=== PATIENT | male | born 1965 | race Caucasian/White ===

== ENCOUNTER 2024-03-08 15:21 | Outpatient (OUT) | payer BC, OTHER, SELFPAY ==
[2024-03-08 16:13] LABS: Estimated Average Glucose 97 mg/dL
[2024-03-10 09:11] LABS: HIV Ab/p24 Ag Screen Non Reactive (Non Reactive)
[2024-03-10 12:10] LABS: Rapid Plasma Reagin, Quant Non Reactive titer (NonRea<1:1)
[2024-03-10 14:09] LABS: Immunoglobulin A, Qn, Serum 207 mg/dL (90-386); Immunoglobulin G, Qn, Serum 830 mg/dL (603-1613); Immunoglobulin M, Qn, Serum 86 mg/dL (20-172); Lyme Total Antibody CIA Negative (Negative)
[2024-03-10 15:09] LABS: ANA Direct Negative (Negative); Albumin 3.8 g/dL (2.9-4.4); Alpha-1-Globulin 0.3 g/dL (0.0-0.4); Alpha-2-Globulin 0.9 g/dL (0.4-1.0); Gamma Globulin 0.8 g/dL (0.4-1.8); Protein, Total 6.7 g/dL (6.0-8.5)
[2024-03-11 04:08] LABS: Copper Level 83 ug/dL (69-132)
== END 2024-03-08 15:22 | disposition home or self-care (01) ==
LOC: LAB 15:31
PROVIDERS: PCP Internal Medicine; Visit Provider Nurse Practitioner Family
DX: G62.9 Polyneuropathy, unspecified (principal)
CPT/HCPCS: 36415; 82525; 83036; 84155; 84165; 84207; 86038; 86592; 86618; 87389

== ENCOUNTER 2024-05-16 13:18 | Outpatient (OUT) | payer BC, OTHER, SELFPAY ==
--- OUTSIDE RECORDS SUMMARY | 2024-05-16 13:42 | XMS_ITS | CCD ---
Author Organization [facility] Care Team Providers Care Vegetable Picker Name Role Phone Cris Cruz Attending Unavailable ROXANE MITCHELL Admitting Unavailable ROXANE MITCHELL Attending Unavailable REQUEST, NONE LISTED Primary Care Unavailable VINCENT RAE Admitting Unavailable VINCENT RAE Attending Unavailable VINCENT RAE Consulting Unavailable CRIS SINGH Referring Unavailable CRIS SINGH Primary Care Unavailable CRIS SINGH Attending Unavailable CRIS SINGH Referring Unavailable CRIS SINGH Primary Care Unavailable CRIS SINGH Attending Unavailable CRIS SINGH Referring Unavailable CRIS SINGH Primary Care Unavailable NON STAFF Primary Care Provider UnavailDO Deanna Payne Attending Provider [phone] NON STAFF Primary Care Unavailable Deanna Mejia Attending Unavailab Deanna Espinal Admitting Unavailab CRIS Perez Attending Unavailable FERNIE HOLMAN Referring UnavailCRIS Bowles Primary Care Unavailable CRIS SINGH Attending Unavailable CRIS SINGH Referring Unavailable CRIS SINGH Primary Care Unavailable CRIS SINGH Attending Unavailable CRIS SINGH Referring Unavailable CRIS SINGH Primary Care Unavailable DEANNA MEJIA Attending Unavailable CRIS SINGH Referring Unavailable DEANNA MEJIA Referring Unavailable DEANNA MEJIA Attending Unavailable ROB MONTES DE OCA Attending Unavailable DEANNA MEJIA Attending Unavailable ROB MONTES DE OCA Attending Unavailable Cris Singh MD Primary Care Provider [phone] Cris Singh DO Primary Care Provider Medications Current Medications Medication Drug Class(es) Dates Sig (Normalized) Sig (Original) acetaminophen 500 mg oral tablet (2 sources) Start: 12-29-2023 take 1 tablet by mouth every six hours as needed acetaminophen (Tylenol) 500 MG tablet Take 500 mg by mouth every 6 (six) hours if needed 12/29/2023 Active amLODIPine 2.5 mg oral tablet (2 sources) Dihydropyridine Calcium Channel Fritz Start: 02-23-2024 take 1 tablet by mouth in the evening amLODIPine (Norvasc) 2.5 MG tablet Take 1 tablet by mouth in the evening 02/23/2024 Active atorvastatin 40 mg oral tablet (5 sources) HMG-CoA Reductase Inhibitor Start: 12-29-2023 take 0.5 tablet by mouth in the morning atorvastatin (LIPITOR) 40 mg tablet Indications: hyperlipidemia Take 0.5 tablets (20 mg total) by mouth in the morning. Indications: excessive fat in the blood. 12/29/2023 Active Start: 08-20-2020 take 40 mg by mouth once daily Atorvastatin Active 40 MG PO Daily August 20, 2020 1:00am ferrous sulfate (2 sources) take 1 tablet by mouth in the morning Ferrous Sulfate (IRON PO) Take 1 tablet by mouth in the morning. Active gabapentin 300 mg oral capsule (4 sources) Anti-epileptic Agent Start: 4 gabapentin (NEURONTIN) 300 mg capsule Take 1 capsule (300 mg total) by mouth. 03/24/2024 Active latanoprost 0.05 mg/ml ophthalmic solution (4 sources) Prostaglandin Analog Start: take 1 drop(s) into the eye(s) once daily latanoprost (XALATAN) 0.005 % ophthalmic solution Indications: Glaucoma of both eyes, unspecified glaucoma type Administer 1 drop to both eyes nightly. 03/08/2024 Active Start: 02-17-2024 latanoprost (X alatan) 0.005 % ophthalmic solution INSTILL ONE DROP IN EACH EYE BEFORE BED 02/17/2024 Active lisinopril 10 mg oral tablet (3 sources) Angiotensin Converting Enzyme Inhibitor Start: 02-23-2024 take 1 tablet by mouth in the morning lisinopril 10 MG tablet Take 10 mg by mouth in the morning. 02/23/2024 Active Start: 08-22-2020 take 10 mg by mouth once daily Lisinopril Active 10 MG PO Daily 30 August 22, 2020 1:00am meloxicam 15 mg oral tablet (5 sources) Nonsteroidal Anti-inflammatory Drug Start: 05-11-2024 take 1 tablet by mouth in the morning meloxicam (MOBIC) 15 mg tablet Indications: Localized osteoarthritis of lumbar spine TAKE 1 TABLET (15 MG TOTAL) BY MOUTH IN THE MORNING 30 tablet 1 05/11/2024 Active Start: 12-29-2023 End: 05-11-2024 take 1 tablet by mouth in the morning meloxicam (MOBIC) 15 mg tablet Indications: Localized osteoarthritis of lumbar spine TAKE 1 TABLET (15 MG TOTAL) BY MOUTH IN THE MORNING 30 tablet 1 03/21/2024 05/11/2024 Discontinued wmpmgoue-mugb-HC-calcium &mins (THERAGRAN-M) 9 mg iron-400 mcg tablet (2 sources) pqsyxatz-nahs-LD -calcium &mins (THERAGRAN-M) 9 mg iron-400 mcg tablet Take 1 tablet by mouth in the morning. Active tamsulosin hydrochloride 0.4 mg oral capsule (2 sources) alpha-Adrene rgic Fritz take 1 capsule by mouth once daily tamsulosin (Flomax) 0.4 MG 24 hr capsule Take 0.4 mg by mouth Daily Active thiamine 100 mg oral tablet (1 source) Start : 08-22 take 100 mg by mouth twice daily Thiamine Hcl (Vitamin B1) Active 100 MG PO Twice daily 60 August 22, 2020 1:00am topiramate 50 mg oral tablet (2 sources) Start : 04-29 take 1 tablet by mouth in the morning, then take 1 tablet by mouth at bedtime topiramate (TOPAMAX) 50 mg tablet Indications: Intractable chronic post-traumatic headache Take 1 tablet (50 mg total) by mouth in the morning and 1 tablet (50 mg total) before bedtime. 60 tablet 2 04/29/2024 Active traMADol hydrochloride 50 mg oral tablet (2 sources) Opioid Agonist Start : 05-11 End: 05-26 take 1 tablet by mouth twice daily as needed for pain traMADoL (ULTRAM) 50 mg tablet Indications: Localized osteoarthritis of lumbar spine Take 1 tablet (50 mg total) by mouth 2 (two) times a day as needed for pain (pain) for up to 15 days. 30 tablet 05/11/2024 05/26/2024 Active Start: 04-28-2024 End: 05-11-2024 take 1 tablet by mouth every six hours as needed ULTRAM 50 mg tablet Take 1 tablet (50 mg total) by mouth every 6 (six) hours as needed. 04/28/2024 05/11/2024 Discontinued (Dose adjustment) vitamin b12 1 mg oral tablet (4 sources) Vitamin B12 Start: 12-08-2023 take 1 tablet by mouth in the morning cyanocobalamin 1000 MCG tablet Indications: B12 deficiency TAKE 1 TABLET (1,000 MCG TOTAL) BY MOUTH IN THE MORNING 90 tablet 1 03/24/2024 Active Problems Active Problems Problem Classification Problem Date Documented Date Episodic/Chronic Abdominal pain (1 source) Abdominal pain; Translations: [Unspecified abdominal pain] 07-15-2023 Episodic Asthma (1 source) Unspecified asthma, uncomplicated; Translations: [UNSPECIFIED ASTHMA UNCOMPLICATED] Onset: 12-09-2018 Chronic Cataract (1 source) Unspecified cataract; Translations: [Unspecified cataract] Onset: 12-29-2023 Chronic Conditions associated with dizziness or vertigo (1 source) Meniere's disease, bilateral; Translations: [Meniere's disease, bilateral] Onset: 12-29-2023 Chronic Disorders of lipid metabolism (5 sources) Hyperlipidemia, unspecified; Translations: [Hyperlipidemia] Onset: 08-21-2022 07-15-2023 Chronic Diverticulosis and diverticulitis (6 sources) Diverticulitis of colon with perforation; Translations: [Diverticulitis of large intestine with perforation and abscess without bleeding] Onset: 04-23-2020 03-08-2024 Chronic Essential hypertension (2 sources) Essential hypertension; Translations: [Essential (primary) hypertension] Onset: 08-21-2022 03-08-2024 Chronic Glaucoma (1 source) Unspecified glaucoma; Translations: [Unspecified glaucoma] Onset: 03-08-2024 Chronic Hepatitis (1 source) Nonalcoholic steatohepatitis (VIEIRA); Translations: [Nonalcoholic steatohepatitis (VIEIRA)] Onset: 12-22-2023 Chronic Intracranial injury (7 sources) Unspecified intracranial injury 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 with patient surviving, initial encounter; Translations: [Traumatic hemorrhage of left cerebrum with loss of consciousness of 30 minutes or less, subsequent encounter] Onset: 12-22-2023 03-08-2024 Episodic Mood disorders (3 sources) Depressive disorder; Translations: [Depression] Onset: 04-29-2024 07-15-2023 Chronic Other connective tissue disease (2 sources) Other symptoms and signs involving the musculoskeletal system; Translations: [Other musculoskeletal symptoms referable to limbs] Onset: 02-18-2024 05-10-2024 Episodic Other nervous system disorders (1 source) Carpal tunnel syndrome of right wrist; Translations: [Carpal tunnel syndrome, right upper limb] 05-10-2024 Chronic Residual codes; unclassified (1 source) Alcoholism; Translations: [Alcohol use disorder] 07-15-2023 Episodic Spondylosis; intervertebral disc disorders; other back problems (3 sources) Spondylosis without myelopathy or radiculopathy, lumbar region; Translations: [Lumbar spondylosis] Onset: 12-29-2023 05-11-2024 Chronic Spondylosis; intervertebral disc disorders; other back problems (2 sources) Radiculopathy, lumbar region; Translations: [Cervical radiculopathy] Onset: 12-07-2023 05-10-2024 Episodic Substance-related disorders (3 sources) Nicotine dependence, cigarettes, uncomplicated; Translations: [Smoker] Onset: 12-09-2018 03-08-2024 Chronic Suicide and intentional self-inflicted injury (1 source) Suicidal thoughts; Translations: [Suicidal ideations] 07-15-2023 Episodic Unclassified (1 source) discuss test results Onset: 12-29-2023 Unclassified (1 source) New Patient Onset: 12-07-2023 Past or Other Problems Problem Classification Problem Date Documented Date Episodic/Chronic Acute bronchitis (1 source) Acute bronchitis, unspecified; Translations: [ACUTE BRONCHITIS UNSPECIFIED] Onset: 9 Episodic Acute posthemorrhagic anemia (4 sources) Acute posthemorrhagic anemia; Translations: [Acute posthemorrhagic anemia] Onset: 2 03-08-2024 Episodic Cardiac dysrhythmias (2 sources) Tachycardia, unspecified; Translations: [Tachycardia, unspecified] Onset: 4 Episodic Coagulation and hemorrhagic disorders (2 sources) Purpuric rash; 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] Onset: 3 03-08-2024 Episodic Diabetes mellitus without complication (2 sources) Hyperglycemia; Translations: [Hyperglycemia, unspecified] Onset: 3 03-08-2024 Episodic E Codes: Fall (2 sources) Fall; Translations: [Unspecified fall, initial encounter] Onset: 2 03-08-2024 Episodic Fluid and electrolyte disorders (2 sources) Hypokalemia; Translations: [Hypokalemia] Onset: 3 03-08-2024 Episodic Genitourinary symptoms and ill-defined conditions (4 sources) Retention of urine; Translations: [Retention of urine, unspecified] Onset: 2 03-08-2024 Episodic Mood disorders (2 sources) Mood disorders Onset: 4 04-28-2024 Nutritional deficiencies (2 sources) Deficiency of other specified B group vitamins; Translations: [Deficiency of other specified B group vitamins] Onset: 4 Episodic Other circulatory disease (2 sources) Orthostatic hypotension; Translations: [Orthostatic hypotension] Onset: 4 Episodic Other fractures (4 sources) Closed fracture of multiple left ribs; Translations: [Multiple fractures of ribs, left side, initial encounter for closed fracture] Onset: 2 03-08-2024 Episodic Other gastrointestinal disorders (4 sources) Oropharyngeal dysphagia; Translations: [Dysphagia, oropharyngeal phase] Onset: 2 03-08-2024 Episodic Other lower respiratory disease (3 sources) Cough; Translations: [COUGH] Onset: 9 Episodic Other nutritional; endocrine; and metabolic disorders (2 sources) Overweight; Translations: [Overweight] Onset: 3 03-08-2024 Episodic Other upper respiratory infections (1 source) Acute upper respiratory infection, unspecified; Translations: [ACUTE UP RESPIRATORY INFECTION UNS] Onset: 9 Episodic Residual codes; unclassified (4 sources) History of closure of colostomy; Translations: [Other specified postprocedural states] Onset: 1 03-08-2024 Episodic Results Test Name Value Interpretation Reference Range Facility EMG 1 Extremeityon 4 Very mild C8 radiculopathy on the right Mild carpal tunnel syndrome on the right No clear explanation for right shoulder pain [facility] 5-6 Nerveson 05-10-2024 Very mild C8 radiculopathy on the right Mild carpal tunnel syndrome on the right No clear explanation for right shoulder pain [facility] 03-24-2024 Refill [id number] Bee Harris 1965 M Date Provider Department Center 03/24/2024 [id number] GUZMAN [facility] INT MED Comprehensiv Family History Problem Relation Age of Onset Diabetes Mother Lung cancer Mother Kidney failure Mother Heart disease Father Other Father Family Status - Relation Status Age at Mother Father Reason for Visit and Comments: Med Refill [[id number]] [facility] 36on 02-23-2024 36 Refill request for Requested Prescriptions Pending Prescriptions Disp Refills amLODIPine (Norvasc) 2.5 mg tablet [Pharmacy Med Name: AMLODIPINE BESYLATE 2.5 MG TAB] 90 tablet 2 Sig: TAKE 1 TABLET BY MOUTH EVERY DAY IN THE EVENING lisinopril 10 mg tablet [Pharmacy Med Name: LISINOPRIL 10 MG TABLET] 90 tablet 2 Sig: TAKE 1 TABLET BY MOUTH EVERY DAY IN THE MORNING Recent Visits No visits were found meeting these conditions. Showing recent visits within past 540 days with a meds authorizing provider and meeting all other requirements Future Appointments No visits were found meeting these conditions. Showing future appointments within next 150 days with a meds authorizing provider and meeting all other requirements BP Readings from Last 3 Encounters: 11/27/22 127/80 08/21/22 116/72 Health Maintenance Topic Date Due Hepatitis B Vaccines (1 of 3 - 3-dose series) Never done Pneumococcal Vaccine: Pediatrics (0 to 5 Years) and At-Risk Patients (6 to 64 Years) (1 of 2 - PCV) Never done Depression Screening Never done Adult Tetanus Never done Zoster Vaccines (1 of 2) Never done COVID-19 Vaccine ( - 2022- season) 2023 Influenza Vaccine (1) 04/03/2024 HIB Vaccines Aged Out IPV Vaccines Aged Out Meningococcal Vaccine Aged Out Rotavirus Vaccines Aged Out HPV Vaccines Aged Out No components found for: LABA1C No components found for: LABMICR LDL Calculated (mg/dL) Date Value 07/16/2022 49 AST (U/L) Date Value 07/16/2022 12 (L) ALT (SGPT) (U/L) Date Value 07/16/2022 11 BUN (mg/dL) Date Value 07/16/2022 18 Patient Active Problem List Diagnosis Acute blood loss anemia Current smoker Diverticulitis of colon with perforation Well adult health check Essential hypertension Fall History of colostomy reversal Hyperglycemia Hyperlipidemia Hypokalemia Multiple fractures of ribs, left side, initial encounter for closed fracture Oropharyngeal dysphagia Overweight Perforated diverticulum Purpura (CMS/HCC) Urinary retention Normal [facility]illon 02-22-2024 Refill [id number] Bee Harris 1965 M Date Provider Department Center 02/22/2024 [id number] GUZMAN [facility] INT MED Comprehensiv Family History Problem Relation Age of Onset Diabetes Mother Lung cancer Mother Kidney failure Mother Heart disease Father Other Father Family Status - Relation Status Age at Mother Father Reason for Visit and Comments: Med Refill [[id number]] Normal [facility] XR pre/post mri xrayon 02-17 XR pre/post mri xray [facility] [address] MRI Report Signed Patient: Bee Harris MR#: [id number] : 1965 Acct:[id number] Age/Sex: 58 / M ADM Date: 02/18/24 Loc: [facility] Room: Type[facility] Attending Dr: Deanna Mejia DO Copies to: Deanna Mejia DO Ordering Provider: Deanna Mejia DO Date of Service: 02/18/24 MR/MR lumbar spine wo con: [id number] ([id number]) XR/XR pre/post mri xray: LUMBAR PRES MR lumbar spine wo con, XR pre/post mri xray 02/18/2024 3:21 PM SIGNS AND SYMPTOMS: Low back pain radiating down right leg with numbness and tingling PROTOCOL: Multiplanar multisequence MR images of the lumbar spine were obtained without IV contrast. Frontal and lateral radiographs of the lumbar spine. COMPARISON: 02/18/2024. FINDINGS: Radiographs of the lumbar spine: There is 5 mm of retrolisthesis of L3 upon L4 with 3 mm of retrolisthesis identified. There is preservation of vertebral body heights and intervertebral disc spaces. Extensive anterior and lateral osteophyte formation is noted. Atherosclerotic changes are noted in the abdominal aorta. Degenerative changes are visualized in the hips and sacroiliac joints. MRI lumbar spine: Disc height loss and alignment is as noted above. There is preservation of vertebral body heights. There is a hemangioma in the T12 vertebral body. The conus terminates at the inferior endplate of the L1 vertebral body level. No epidural or paraspinous fluid collection is appreciated. At T12-L1: There is a broad-based disc bulge with facet hypertrophy and ligamentum flavum thickening. There is mild spinal canal stenosis with mild bilateral neural foraminal narrowing. At L1-L2: There is a broad-based disc bulge with a left subarticular disc protrusion. There is mild spinal canal stenosis. There is moderate left and moderate neural foraminal narrowing with mild spinal canal stenosis. At L2-L3: There is a broad-based disc bulge with endplate osteophyte formation and facet hypertrophy. There is mild spinal canal narrowing and mild bilateral neural foraminal narrowing. At L3-L4: There is a broad-based disc bulge with facet hypertrophy and endplate osteophyte formation. There is mild to moderate bilateral neural foraminal narrowing with moderate spinal canal narrowing. At L4-L5: There is a circumferential disc bulge with facet hypertrophy and ligamentum flavum thickening. There is moderate spinal canal stenosis with moderate to severe bilateral neural foraminal narrowing. There is a small left-sided facet effusion. At L5-S1: There is a circumferential disc bulge with endplate osteophyte formation. There is facet hypertrophy with ligamentum flavum thickening. MR/MR lumbar spine wo con IMPRESSION: At L1-L2: There is a broad-based disc bulge with a left subarticular disc protrusion. There is mild spinal canal stenosis. There is moderate left and moderate neural foraminal narrowing with mild spinal canal stenosis. At L3-L4: There is a broad-based disc bulge with facet hypertrophy and endplate osteophyte formation. There is mild to moderate bilateral neural foraminal narrowing with moderate spinal canal narrowing. At L4-L5: There is a circumferential disc bulge with facet hypertrophy and ligamentum flavum thickening. There is moderate spinal canal stenosis with moderate to severe bilateral neural foraminal narrowing. There is a small left-sided facet effusion. Lesser degrees of degenerative changes are noted as above. Impression dictated by: Cain Trinidad M.D.02/18/2024 4:45 PM Dictation Location: [place] [address] Transcribed By: [facility] 02/18/24 0583 Dictated By: Cain Trinidad II, MD 02/18/24 8338 Signed By: 02/18/24 164 Normal [facility] MR BRAIN WO CONTon MR BRAIN WO CONT MR BRAIN WO CONT MRI brain: HISTORY: Headaches. History of trauma. Multisequence multiplanar imaging of the brain was obtained. There is no cortical signal characteristic abnormality. The diffusion-weighted images and corresponding ADC map show no focus of diffusion restriction or acute intracranial ischemia. Cerebellar tonsils are normal position. Pituitary is midline. No orbital abnormality identified. There is no mass or evidence of vasogenic edema. Flow voids appear to be normal in caliber and contour. Small focus of left temporal encephalomalacia with trace peripheral hemosiderin visualized. This is a site of previous intracranial hemorrhage. No acute bleed or evidence of edema. IMPRESSION: Small focus left temporal encephalomalacia at site of previous hemorrhage. No acute intracranial findings. Finalized by Bogdan Maurer MD on 12/23/2023 9:31 AM Normal [facility] US ABDOMEN LMTDon 12-23-2023 US ABDOMEN LMTD US ABDOMEN LMTD ABDOMEN LIMITED ULTRASOUND HISTORY: Elevated liver enzymes COMPARISON: None FINDINGS: Pancreas: Visualized portions of the pancreatic head and body are unremarkable. Visualized portions of liver are homogenous in echotexture without focal lesion. No intrahepatic biliary dilatation. Main portal vein is patent with appropriate direction of flow. Normal gallbladder without stones, wall thickening, or pericholecystic fluid. Common duct measures 8 mm, slightly dilated for provided patient age. No visualized ascites. IMPRESSION: 1. Mild dilatation common duct measuring 8 mm without intrahepatic biliary dilatation. Findings of uncertain clinical significance, if there is concern for possible obstructive picture please correlate with laboratory values. This may be further evaluated with MRCP as clinically warranted. 2. No convincing evidence of chronic hepatocellular disease. Finalized by Juan Carlos Chopra MD on 12/23/2023 1:10 PM Normal [facility] CBC AND AUTO DIFFon 12-07-19 24 ABSOLUTE BASOPHIL 0.1 X10E9/L Normal 0.0-0.2 [facility] Comment on above: Performed By: #### C TEJAS, 99238-6, TSHR, CBCA, 2132-04 #### [facility] ([id number]) [address], [address] [place] [address] ABSOLUTE NEUTROPHIL 3.2 X10E9/L Normal 1.5-6.6 [facility] Comment on above: Performed By: #### C TEJAS, 54438-4, TSHR, CBCA, 2132-04 #### [facility] ([id number]) [address], [address] [place] [address] Basophils/100 WBC (Bld) 0.9 % Normal [facility] Comment on above: Performed By: #### C TEJAS, 28257-2, TSHR, CBCA, 2132-04 #### [facility] ([id number]) [address], [address] [place] [address] Eosinophils (Bld) [#/Vol] 0.0 10*3/uL Normal 0.0-0.4 [facility] Comment on above: Performed By: #### C TEJAS, 62519-9, TSHR, CBCA, 2132-04 #### [facility] ([id number]) [address], [address] [place] [address] Eosinophils/100 WBC (Bld) 0.7 % Normal [facility] Comment on above: Performed By: #### C TEJAS, 53906-2, TSHR, CBCA, 2132-04 #### [facility] ([id number]) [address], [address] [place] [address] Erythrocyte distribution width (RBC) [Ratio] 13.9 % Normal 11.5-15.0 [facility] Comment on above: Performed By: #### [place], 72[address]-7, TSHR, CBCA, 2132-04 #### [facility] ([id number]) [address] [place] [address] Hematocrit (Bld) [Volume fraction] 48.0 % Normal 39-49 [facility] Comment on above: Performed By: #### C TEJAS, 52452-8, TSHR, CBCA, 2132-04 #### [facility] ([id number]) [address] [place] [address] Hemoglobin (Bld) [Mass/Vol] 16.4 g/dL Normal 13.0-17.0 [facility] Comment on above: Performed By: #### C TEJAS, 27745-5, TSHR, CBCA, 2132-04 #### [facility] ([id number]) [address] [place] [address] Lymphocytes (Bld) [#/Vol] 1.6 10*3/uL Normal 1.0-3.5 [facility] Comment on above: Performed By: #### C TEJAS, 48411-7, TSHR, CBCA, 2132-04 #### [facility] ([id number]) [address] [place] [address] Lymphocytes/100 WBC (Bld) 28.7 % Normal [facility] Comment on above: Performed By: #### C TEJAS, 59931-2, TSHR, CBCA, 2132-04 #### [facility] ([id number]) [address] [place] [address] MCH (RBC) [Entitic mass] 34.9 pg High 27-34 [facility] Comment on above: Performed By: #### C TEJAS, 75393-3, TSHR, CBCA, 2132-04 #### [facility] ([id number]) [address], [address] [place] [address] MCHC (RBC) [Mass/Vol] 34.2 g/dL Normal 32-36 [facility] Comment on above: Performed By: #### C TEJAS, 93879-5, TSHR, CBCA, 2132-04 #### [facility] ([id number]) [address], [address] [place] [address] MCV (RBC) [Entitic vol] 102 fL High 80-100 [facility] Comment on above: Performed By: #### C TEJAS, 42485-1, TSHR, CBCA, 2132-04 #### [facility] ([id number]) [address], [address] [place] [address] Monocytes (Bld) [#/Vol] 0.6 10*3/uL Normal 0-0.9 [facility] Comment on above: Performed By: #### C TEJAS, 00928-7, TSHR, CBCA, 2132-04 #### [facility] ([id number]) [address], [address] [place] [address] Monocytes/100 WBC (Bld) 10.8 % Normal [facility] Comment on above: Performed By: #### C TEJAS, 23354-7, TSHR, CBCA, 2132-04 #### [facility] ([id number]) [address], [address] [place] [address] Neutrophils/100 WBC (Bld) 58.9 % Normal [facility] Comment on above: Performed By: #### C TEJAS, 12038-2, TSHR, CBCA, 2132-04 #### [facility] ([id number]) [address], [address] [place] [address] Platelet mean volume (Bld) [Entitic vol] 8.9 fL Normal 7-12 [facility] Comment on above: Performed By: #### C TEJAS, 00159-1, TSHR, CBCA, 2132-04 #### [facility] ([id number]) [address], [address] [place] [address] Platelets (Bld) [#/Vol] 95 10*3/uL Low 150-450 [facility] Comment on above: Performed By: #### C TEJAS, 82201-4, TSHR, CBCA, 2132-04 #### [facility] ([id number]) [address], [address] [place] [address] RBC COUNT 4.70 X10E12/L Normal 4.10-5.70 [facility] Comment on above: Performed By: #### C TEJAS, 72940-3, TSHR, CBCA, 2132-04 #### [facility] ([id number]) [address], [address] [place] [address] WBC (Bld) [#/Vol] 5.4 10*3/uL Normal 4.0-11.0 [facility] Comment on above: Performed By: #### C TEJAS, 40588-4, TSHR, CBCA, 2132-04 #### [facility] ([id number]) [address], [address] [place] [address] COMPREHENSIVE METABOLIC PANE Alejandro 12-07-2023 Albumin [Mass/Vol] 3.8 g/dL Normal 3.2-5.3 [facility] Comment on above: Performed By: #### C TEJAS, 09415-3, TSHR, CBCA, 2132-04 #### [facility] ([id number]) [address], [address] [place] [address] ALP [Catalytic activity/Vol] 89 U/L Normal 39-130 [facility] Comment on above: Performed By: #### C TEJAS, 76333-2, TSHR, CBCA, 2132-04 #### [facility] ([id number]) [address], [address] [place] [address] ALT [Catalytic activity/Vol] 33 U/L Normal 0-40 [facility] Comment on above: Performed By: #### C TEJAS, 76564-9, TSHR, CBCA, 2132-04 #### [facility] ([id number]) [address], [address] [place] [address] Anion gap [Moles/Vol] 10 mmol/L Normal 5-15 [facility] Comment on above: Performed By: #### C TEJAS, 10575-7, TSHR, CBCA, 2132-04 #### [facility] ([id number]) [address], [address] [place] [address] AST [Catalytic activity/Vol] 58 U/L High 0-41 [facility] Comment on above: Performed By: #### C TEJAS, 11075-1, TSHR, CBCA, 2132-04 #### [facility] ([id number]) [address], [address] [place] [address] Bilirubin [Mass/Vol] 0.7 mg/dL Normal 0.3-1.2 [facility] Comment on above: Performed By: #### C TEJAS, 22412-8, TSHR, CBCA, 2132-04 #### [facility] ([id number]) [address], [address] [place] [address] Calcium [Mass/Vol] 8.9 mg/dL Normal 8.5-10.5 [facility] Comment on above: Performed By: #### C TEJAS, 86591-5, TSHR, CBCA, 2132-04 #### [facility] ([id number]) [address], [address] [place] [address] Chloride [Moles/Vol] 107 mmol/L Normal 98-109 [facility] Comment on above: Performed By: #### C TEJAS, 51505-5, TSHR, CBCA, 2132-04 #### [facility] ([id number]) [address], [address] [place] [address] CO2 [Moles/Vol] 26 mmol/L Normal 22-32 [facility] Comment on above: Performed By: #### C TEJAS, 73588-3, TSHR, CBCA, 2132-04 #### [facility] ([id number]) [address], [address] [place] [address] Creatinine [Mass/Vol] 0.89 mg/dL Normal 0.60-1.30 [facility] Comment on above: Result Comment: METH OD TRACEABLE TO IDMS STANDARD Performed By: #### C TEJAS, 30311-9, TSHR, CBCA, 2132-04 #### [facility] ([id number]) [address] [place] [address] eGFR (CKD-EPI) NON-RACE DEPENDENT >90 Normal >59 [facility] Comment on above: Result Comment: Reported eGFR is based on the CKD-EPI 2020 equation that does not use a race coefficient. Performed By: #### C TEJAS, 91548-6, TSHR, CBCA, 2132-04 #### [facility] ([id number]) [address], [address] [place] [address] Glucose [Mass/Vol] 93 mg/dL Normal 65-99 [facility] Comment on above: Performed By: #### C TEJAS, 82343-3, TSHR, CBCA, 2132-04 #### [facility] ([id number]) [address] [address] [place] [address] Potassium [Moles/Vol] 3.7 mmol/L Normal 3.5-5.0 [facility] Comment on above: Performed By: #### C TEJAS, 68266-8, TSHR, CBCA, 2132-04 #### [facility] ([id number]) [address], [address] [place] [address] Protein [Mass/Vol] 6.6 g/dL Normal 6.0-8.0 [facility] Comment on above: Performed By: #### C TEJAS, 42305-5, TSHR, CBCA, 2132-04 #### [facility] ([id number]) [address], [address] [place] [address] Sodium [Moles/Vol] 143 mmol/L Normal 134-146 [facility] Comment on above: Performed By: #### C TEJAS, 00671-7, TSHR, CBCA, 2132-04 #### [facility] ([id number]) [address], [address] [place] [address] Urea nitrogen [Mass/Vol] 10 mg/dL Normal 5-23 [facility] Comment on above: Performed By: #### C TEJAS, 84686-4, TSHR, CBCA, 2132-04 #### [facility] ([id number]) [address], [address] [place] [address] Lipid 1996 panelon 4 Cholesterol [Mass/Vol] 103 mg/dL Low 150-200 [facility] Comment on above: Performed By: #### C TEJAS, 45195-3, TSHR, CBCA, 2132-04 #### [facility] ([id number]) [address], [address] [place] [address] Cholesterol in HDL [Mass/Vol] 63 mg/dL Normal >39 [facility] Comment on above: Result Comment: HDL <40 mg/dL - High Risk HDL > or = 40mg/dL- Desirable HDL >60 mg/dL - Negative Risk Performed By: #### C TEJAS, 29440-3, TSHR, CBCA, 2132-04 #### [facility] ([id number]) [address], [address] [place] [address] Cholesterol in LDL [Mass/Vol] 5 mg/dL Normal <130 [facility] Comment on above: Result Comment: LDL <100 mg/dL - Desirable LDL >160 mg/dL - High Risk Performed By: #### C TEJAS, 20353-2, TSHR, CBCA, 2132-04 #### [facility] ([id number]) [address], [address] [place] [address] Cholesterol in VLDL [Mass/Vol] 35 mg/dL High 0-30 [facility] Comment on above: Performed By: #### C TEJAS, 56401-1, TSHR, CBCA, 2132-04 #### [facility] ([id number]) [address], [address] [place] [address] CHOLESTEROL:HDL 1.6 Normal 1.0-5.0 [facility] Comment on above: Performed By: #### C TEJAS, 01132-9, TSHR, CBCA, 2132-04 #### [facility] ([id number]) [address], [address] [place] [address] Triglyceride [Mass/Vol] 173 mg/dL High 27-150 [facility] Comment on above: Performed By: #### C TEJAS, 51230-9, TSHR, CBCA, 2132-04 #### [facility] ([id number]) [address], [address] [place] [address] TSH WITH REFLEXon 12-07-2023 TSH 1.69 uIU/mL Normal 0.49-4.67 [facility] Comment on above: Performed By: #### C TEJAS, 27772-9, TSHR, CBCA, 2132-04 #### [facility] ([id number]) [address], [address] [place] [address] VITAMIN B12on 12-07-2023 Cobalamin (Vitamin B12) [Mass/Vol] 337 pg/mL Normal 180-914 [facility] Comment on above: Performed By: #### C MP, 00624-5, TSHR, CBCA, 2132-9 #### [facility] ([id number]) [address], [address] [place] [address] 36on 08-31-2023 36 Please advise Normal [facility] Refillon 08-31-2023 Refill [id number] Bee Harris 1965 M Date Provider Department Center 08/31/2023 FERNIE CANELA [facility] Comprehensiv Family History Problem Relation Age of Onset Diabetes Mother Lung cancer Mother Kidney failure Mother Heart disease Father Other Father Family Status - Relation Status Age at Mother Father Reason for Visit and Comments: Med Refill [[id number]] Normal [facility] 36on 07-22-2023 36 Please advise Normal [facility] Refillon 07-22-2023 Refill [id number] Bee Harris 1965 M Date Provider Department Center 07/22/2023 480-FADIA SHARPE [facility] Comprehensiv Family History Problem Relation Age of Onset Diabetes Mother Lung cancer Mother Kidney failure Mother Heart disease Father Other Father Family Status - Relation Status Age at Mother Father Reason for Visit and Comments: Med Refill [[id number]] Normal [facility] Refillon 05-06-2023 Refill [id number] Bee Harris 1965 M Date Provider Department Center 05/06/2023 480-FADIA SHARPE [facility] Comprehensiv Family History Problem Relation Age of Onset Diabetes Mother Lung cancer Mother Kidney failure Mother Heart disease Father Other Father Family Status - Relation Status Age at Mother Father Reason for Visit and Comments: Med Refill [[id number]] Normal [facility] Encounters Encounter Date Encounter Type Care Provider Facility Start: 05-12-2024 End: 05-12-2024 ambulatory ROB TAVON Not Available Start: 05-11-2024 End: 05-11-2024 Refill Cris Singh DO Work Phone: [facility] Comment on above: Localized osteoarthr itis of lumbar spine Start: 05-10-2024 End: 05-10-2024 Patient encounter procedure Deanna Mejia DO [facility] Phone: [facility] Comment on above: Cervical radiculopat hy (Primary Dx); Weakness of right upper extremity; Carpal tunnel syndrome on right Start: 05-10-2024 End: 05-10-2024 Bamboo flowsheet Terryjared Gottliebett DO Work Phone: [facility] Start: 05-10-2024 End: 05-10-2024 Bamboo flowsheet Terryjared Gottliebett DO Work Phone: [facility] Start: 05-10-2024 End: 05-10-2024 ambulatory DEANNA MEJIA Not Available Start: 03-08-2024 Patient encounter status Jarrett garcia Jackie DO Work Phone: [facility] Start: 03-08-2024 End: 03-08-2024 ambulatory [facility] Start: 02-24-2024 End: 02-24-2024 ambulatory ROB MONTES DE OCA Not Available Start: 02-18-2024 End: 02-18-2024 Patient encounter procedure [facility] [address] Work Phone: Start: 02-18-2024 End: 02-18-2024 ambulatory NON STAFF [facility] Work Phone: Start: 02-16-2024 End: 02-16-2024 ambulatory DEANNA MEJIA Not Available Start: 01-26-2024 End: 01-26-2024 ambulatory CHRISTOPHER JACKIE Not Available Start: 01-18-2024 End: 01-18-2024 ambulatory CHRISTOPHER JACKIE Not Available Start: 12-29-2023 End: 12-29-2023 ambulatory [facility] Start: 12-22-2023 End: 12-23-2023 ambulatory [facility] Start: 12-07-2023 End: 12-08-2023 ambulatory [facility] Start: 12-07-2023 End: 12-07-2023 ambulatory [facility] Kavitha [facility] Start: 12-07-2018 End: 12-07-2018 Patient encounter procedure NONE LISTED REQUEST Facility: Start: 11-22-2018 End: 11-23-2018 Patient encounter procedure Cris Cruz Facility:CD:[id number] Start: 09-10-2018 Patient encounter procedure ROXANE MITCHELL Facility:H1 Procedures Date Procedure Procedure Detail Performing Clinician Start: 05-10-2024 End: 05-10-2024 Needle emg ea extremty w/paraspinl area complete Rob Montes De Oca [employer]UL[employer]ER Work Phone: Start: 04-28-2024 Adult depression screening assessment Cris Singh DO Work Phone: Start: 03-08-2024 Follow-up visit Follow-up CRIS SINGH Start: 02-18-2024 MR lumbar spine wo con Start: 02-18-2024 XR pre/post mri xray Plan of Treatment Date Care Activity Detail Author Start: 04-28-2025 Adult BMI Screening Adult BMI Screen ing [facility] Start: 04-28-2025 Depression Screening Depression Scre [facility] Start: 04-28-2025 Tobacco Screening Tobacco Screening [facility] Start: 06-01-2024 End: 06-01-2024 Patient encounter procedure 06/01/2024 1:10 PM EDT Office Visit [facility] [address] [facility] [address] [place] [phone] Addie Serrano MD [address] [place] [address] [facility] Start: 05-25-2024 End: 05-25-2024 Clinical Support 05/25/2024 2:30 PM EDT Clinical Support [facility] [address] [facility] [address] [place] [phone] Shelby Denson, [facility] [address] [place] [address] [facility] Start: 05-19-2024 End: 05-19-2024 Patient encounter procedure 05/19/2024 12:30 PM EDT Office Visit [facility] [address] [place] [address] Cris Singh, DO [address] [place] [address] [facility] Start: 05-12-2024 End: 05-12-2024 Patient encounter procedure 05/12/2024 2:40 PM EDT Office Visit [facility] [address] [address] [place] [phone] Rob Montes De Oca NP [address] [place] [address] [facility] [place] [facility] Start: 05-10-2024 End: 05-10-2024 Patient encounter procedure 05/10/2024 2:30 PM EDT Procedure Visit [facility] [place] [facility] [address] [place] [phone] Deanna Mejia, DO [address] [place] [address] Arrived [facility] [place] [facility] Comment on above: Arrived Start: 04-03-2024 COVID-19 Vaccine ( season) COVID-19 Vaccine ( season) [facility] Start: 04-03-2024 Influenza vaccination [facility] Start: 2016 Administration of varicella zoster vaccine Zoster (Shingles) Vaccine (1 of 2) [facility] Start: 1985 DTaP,Tdap and Td Vac cines (1 - Tdap) DTaP,Tdap and Td Vaccines (1 - Tdap) [facility] Start: 1965 Screening for malign ant neoplasm of colon [facility] Start: 1966 Tobacco Counseling Tobacco Counselin [facility] Payers Date Payer Category Payer Self-pay [id number] 2024 Medicaid [id number] 2024 Unknown [id number] 2023 Unknown [id number] 2023 Unknown [id number] 2020 Medicaid [id number] 2020 Medicaid [id number] 1966 Unknown [id number] 2.16.84 0.1.427472.3.579.2.593 1966 Unknown [id number] 2.16.84 0.1.585811.3.579.2.593 1966 Unknown [id number] 2.16.8 40.1.715394.3.579.2.1286 1966 Unknown [id number] 2.16.8 40.1.548573.3.579.2.1286 1966 Unknown [id number] 2.16.8 40.1.197638.3.579.2.1286 1966 Unknown [id number] 2.16.8 40.1.179091.3.579.2.1286 1966 Unknown [id number] 2.16.8 40.1.808284.3.579.2.1286 1966 Unknown [id number] 2.16.8 40.1.925184.3.579.2.1286 1966 Unknown [id number] 2.16.84 0.1.754930.3.579.2.1259 1966 Unknown [id number] 2.16.84 0.1.066014.3.579.2.1259 1966 Unknown [id number] 2.16.84 0.1.595487.3.579.2.1259 1966 Unknown [id number] 2.16.84 0.1.738276.3.579.2.1259 1966 Unknown [id number] 2.16.84 0.1.668769.3.579.2.9 1966 Unknown [id number] 2.16.84 0.1.244437.3.579.2.1259 1959 Self-pay [id number] 1959 Unknown [id number] Unknown [id number] 2.16.8 40.1.852007.3.579.2.531 Social History Date Type Detail Facility Start: 08-20-2020 Tobacco smoking stat [facility] Smoker (finding) [facility] Start: 1965 Sex Assigned At Male [facility] Start: 12-07-2023 End: 01-18-2024 Tobacco smoking status [facility] Smokes tobacco daily [facility] History of tobacco use Cigarette Smoker N [facility] Start: 12-07-2023 End: 01-18-2024 Tobacco use and exposure Smokeless tobacco non-user [facility] Start: 03-08-2024 Alcoholic beverage intake Curr ent drinker of alcohol (finding) [facility] Start: 10-16-2020 End: 03-08-2024 History of Social function [facility] Start: 10-16-2020 End: 03-08-2024 Tobacco use panel [facility] Start: 1965 Sex assigned at Not on file N [facility] Start: 04-28-2024 Alcoholic beverage intake Ex-drinker (finding) [facility] Do you belong to any clubs or organizations such as uatsdin groups, unions, fraternal or athletic groups, or school groups? No [facility] Are you now , , , , never or living with a partner? Never [facility] How hard is it for y ou to pay for the very basics like food, housing, medical care, and heating Somewhat hard [facility] Adolescent depressio n screening assessment [facility] Start: 04-28-2024 Alcohol Comment once a while [facility] Goals Date Patient Goal Desired Activity /State Personal health goal Comment on above: Formatting of this n ote might be different from the original. Evaluation of progress towards goal: patient anticipates discharge home with home care at this time Personal health goal Comment on above: Formatting of this n ote might be different from the original. Evaluation of progress towards goal: Patient is planning to transition to inpatient rehab. History of Present illness Narrative 05-10-2024 GLORIA Manzo - 05/10/2024 2:30 PM EDT Note Date & Type Note Facility 05-10-2024 History of Presen t illness Narrative Images from the original note were not included. 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 No hx of DM. Not on blood thinners Comments: Procedure was explained to the patient who expressed understanding. Patient appeared to have tolerated the test well despite some discomfort due to the nature of the test. documented in this encounter [facility] Evaluation note Note Date & Type Note Facility Evaluation note No assessment information [facility] Work Phone: Evaluation note Note Date & Type Note Facility Evaluation note Diagnosis Cervical radiculopathy- Primary Brachial neuritis or radiculitis nos Weakness of right upper extremity Other musculoskeletal symptoms referable to limbs Carpal tunnel syndrome on right Carpal tunnel syndrome documented in this encounter [facility] Evaluation note Note Date & Type Note Facility Evaluation note Diagnosis Localized osteoarthritis of lumbar spine documented in this encounter [facility] Evaluation note Note Date & Type Note Facility Evaluation note Diagnosis Localized osteoarthritis of lumbar spine documented in this encounter [facility] Instructions Note Date & Type Note Facility Instructions Not on filedocumented in this en counter [facility] Instructions Note Date & Type Note Facility Instructions Not on filedocumented in this en counter [facility] Summary Purpose Family History Relationship Condition Age at Onset Recorded Date/T jeffrey father Renal failure Unknown mother Renal failure Unknown mother Type 2 diabetes mellitus Unknown mother Malignant neoplasm of lung Unknown Advance Directives Advance Directive Response Recorded Date/ Time Advance Directives No August 20, 2020 4:47am Date Activated Date Inactivated Comments 06/19/2022 6:51 PM 07/12/2022 12:51 PM Date Activated Date Inactivated Comments 10/16/2020 11:21 AM 2020 3:58 PM Date Activated Date Inactivated Comments 04/23/2020 2:03 AM 04/27/2020 9:19 PM Chief Complaint and Reason for Visit Chief Complaint r29.898 Additional Source Comments (unrecognized sect ion and content) No Status Records FoundNo Status Records FoundNo Status Records FoundNo Status Records FoundNo Status Records FoundNo Status Records FoundNo Status Records FoundNo Status Records Found INFORMATION SOURCE (unrecogn ized section and content) DATE CREATED AUTHOR 11/23/2018 [facility] DATE CREATED AUTHOR AUTHOR'S ORGANIZ ATION 03/11/2019 [facility] DATE CREATED AUTHOR AUTHOR'S ORGANIZ ATION 12/09/2023 [facility] DATE CREATED AUTHOR AUTHOR'S ORGANIZ ATION 12/24/2023 [facility] DATE CREATED AUTHOR AUTHOR'S ORGANIZ ATION 02/25/2024 [facility] DATE CREATED AUTHOR AUTHOR'S ORGANIZ ATION 03/10/2024 [facility] DATE CREATED AUTHOR AUTHOR'S ORGANIZ ATION 03/26/2024 [facility] DATE CREATED AUTHOR AUTHOR'S ORGANIZ ATION 05/15/2024 [facility] Care Teams (unrecognized sec tion and content) Team Status: Active Member Role Status Dates NON STAFF Primary Care Provider Active Team Status: Inactive Member Role Status Dates NON STAFF Primary Care Provider Active Start: February 18, 2024 End: February 18, 2024 Deanna Mejia DO Attending Provider Active Start: February 18, 2024 End: February 18, 2024 Vegetable Picker Relationship Specialty Start Date End Date Cris Singh MD [address] [facility] [place] [place] [address] PCP - General Internal Medicine 01/04/24 Vegetable Picker Relationship Specialty Start Date End Date Cris Singh MD [address] [facility] [place] [address] PCP - General Internal Medicine 01/04/24 Vegetable Picker Relationship Specialty Start Date End Date Cris Singh DO [address] [facility] [place] [address] PCP - General Internal Medicine 12/07/23 Vegetable Picker Relationship Specialty Start Date End Date Cris Singh DO [address] [place] [address] PCP - General Internal Medicine 12/07/23 Goals (unrecognized section and content) Goals may be documented in a n alternate section Reason for Visit (unrecogniz ed section and content) Reason Comments Med Refill FOR RECORDS PERTAINING TO PATIENTS WHO ARE OR HAVE BEEN ENROLLED IN A CHEMICAL DEPENDENCY/SUBSTANCEABUSE PROGRAM, SOME INFORMATION MAY BE OMITTED. This clinical summary was aggregated from multiple sources. Caution should be exercised in using it in the provision of clinical care. This summary normalizes information from multiple sources, and as a consequence, information in this document may materially change the coding, format and clinical context of patient data. In addition, data may be omitted in some cases. CLINICAL DECISIONS SHOULD BE BASED ON THE PRIMARY CLINICAL RECORDS. [employer] provides no warranty or guarantee of the accuracy or completeness of information in this document.
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
== END 2024-05-16 13:19 | disposition home or self-care (01) ==
LOC: PM 13:21
PROVIDERS: PCP Internal Medicine; Visit Provider Anesthesiology
DX: M25.511 Pain in right shoulder (principal); M12.811 Other specific arthropathies, not elsewhere classified, right shoulder
CPT/HCPCS: G0463

== ENCOUNTER 2024-06-10 16:27 | Outpatient (RCR) | payer BC, OTHER, SELFPAY | END 2024-08-02 14:56 | disposition home or self-care (01) | LOC: PT 16:27 | PROVIDERS: PCP Internal Medicine; Visit Provider Neurological Surgery | DX: M54.2 Cervicalgia (principal); M25.511 Pain in right shoulder | CPT/HCPCS: 97110; 97162 ==

== ENCOUNTER 2024-06-23 11:27 | Outpatient (OUT) | payer BC, OTHER, SELFPAY ==
--- NOTE | 2024-06-23 11:42 | MR_ITS ---
[address] [address] Patient Name: BEE STARR MRN: [id number] date: 1965 Sex: M Assigned Patient Location: MRI Current Patient Location: Accession/Order Number: [id number] Exam Date: 06/23/2024 12:30 Report Date: 06/24/2024 09:22 At the request of: ROB MONTES DE OCA Procedure: MR cervical spine wo/w con EXAMINATION: MR cervical spine wo/w con HISTORY: Weakness Right Upper Extremity COMPARISON: No relevant comparison available. TECHNIQUE: A variety of imaging planes and parameters were utilized for visualization of suspected pathology without and/or with intravenous Dotarem contrast based on examination type. FINDINGS: CRANIOCERVICAL AREA: Normal foramen magnum with no Chiari malformation. PARASPINAL AREA: Normal with no visible mass. BONES: Minimal grade 1 retrolisthesis of C3 on 4. Normal height of the vertebral bodies; no convincing fracture or bone lesion. CORD: Marked flattening and compression posterior to C3-4-5. No abnormal signal Intensity. CERVICAL DISC LEVELS: C2-C3: Mild right foramen narrowing secondary to uncovertebral joint spurring. No significant narrowing of the central canal or left foramen. No appreciable disc bulging or significant facet arthropathy. C3-C4: Marked central canal and bilateral foramen narrowing. Moderate diffuse disc bulging without disc height reduction. Uncovertebral joint spurring bilaterally. Mild right, moderate-marked left degenerative facet arthropathy. C4-C5: Moderate central canal narrowing with slight flattening of the cord. Moderate-marked right foramen narrowing, marked left foramen narrowing. Mild diffuse disc bulging without significant disc height reduction. Uncovertebral joint spurring. Mild right, moderate-marked left degenerative facet arthropathy. C5-C6: No significant central canal narrowing. Moderate right, marked left foramen narrowing. Mild diffuse disc bulging without disc height reduction. Mild degenerative facet arthropathy, left greater than right. C6-C7: No significant central canal narrowing. Moderate-marked foramen narrowing bilaterally. Mild diffuse disc bulging and moderate disc height reduction. Uncovertebral joint spurring and mild degenerative facet arthropathy bilaterally. C7-T1:. Mild central canal narrowing. Moderate marked foramen narrowing bilaterally. Mild diffuse disc bulging without disc height reduction. Uncovertebral joint spurring and degenerative facet arthropathy. MR/MR cervical spine wo/w con IMPRESSION: 1. Marked central canal narrowing posterior to C3-4 extending to C4-5. 2. Multilevel marked and moderate-marked foramen narrowing. 3. Multilevel degenerative disc disease and degenerative facet arthropathy accounting for above findings. Electronically authenticated by: FRANK SINGH Date: 06/24/2024 09:22
--- OUTSIDE RECORDS SUMMARY | 2024-06-23 11:47 | XMS_ITS | CCD ---
Author Organization [facility] Care Team Providers Care Branch Account Executive Name Role Phone Cris Cruz Attending Unavailable ROXANE MITCHELL Admitting Unavailable ROXANE MITCHELL Attending Unavailable REQUEST, NONE LISTED Primary Care Unavailable VINCENT RAE Admitting Unavailable VINCENT RAE Attending Unavailable VINCENT RAE Consulting Unavailable CRIS SINGH Referring Unavailable YUHAS, CRIS Plummer Primary Care Unavailable CRIS SINGH Attending Unavailable CRIS SINGH Referring Unavailable YUCELENA, CRIS Plummer Primary Care Unavailable CRIS SINGH Attending Unavailable CRIS SINGH Referring Unavailable SUSANS, CRIS Plummer Primary Care Unavailable NON STAFF Primary Care Provider UnavailDO Deanna Payne Attending Provider NON STAFF Primary Care Unavailable Deanna Mejia Attending Unavailab Deanna Espinal Admitting UnavailCris Justin MD Primary Care Provider Cris Singh DO Primary Care Provider CRIS SINGH Attending Unavailable FERNIE HOLMAN Referring UnavailCRIS Bowles Primary Care Unavailable CRIS SINGH Attending Unavailable CRIS SINGH Referring Unavailable YUHAS, CRIS Plumemr Primary Care Unavailable CRIS SINGH Attending Unavailable CRIS SINGH Referring Unavailable YUHAS, CRIS Plummer Primary Care Unavailable CRIS SINGH Attending Unavailable FRANCISCO, CRIS Plummer Referring Unavailable MARLINEHAS, CRIS L Primary Care Unavailable FRANCISCO, CRIS Plummer Attending Unavailable FRANCISCO, CRIS Plummer Referring Unavailable MARLINEHAS, CRIS L Primary Care Unavailable DEANNA MEJIA Attending Unavailable CRIS SINGH Referring Unavailable DEANNA MEJIA Referring Unavailable DEANNA MEJIA Attending Unavailable ROB MONTES DE OCA Attending Unavailable DEANNA MEJIA Attending Unavailable ROB MONTES DE OCA Attending Unavailable SHELBY DENSON Attending Unavailable CRIS SINGH Referring Unavailable ADDIE GARAY Attending Unavailable ADDIE GARAY Referring Unavailable Medications Current Medications Medication Drug Class(es) Dates Sig (Normalized) Sig (Original) acetaminophen 500 mg oral tablet (10 sources) Start: 12-29-2023 take 1 tablet by mouth every six hours as needed acetaminophen (Tylenol) 500 MG tablet Take 500 mg by mouth every 6 (six) hours if needed 12/29/2023 Active amLODIPine 2.5 mg oral tablet (10 sources) Dihydropyridine Calcium Channel Fritz Start: 02-23-2024 End: 06-01-2024 take 1 tablet by mouth in the evening amLODIPine (Norvasc) 2.5 MG tablet Take 1 tablet by mouth in the evening 02/23/2024 06/01/2024 Discontinued (Therapy completed) atorvastatin 40 mg oral tablet (17 sources) HMG-CoA Reductase Inhibitor Start: 12-29-2023 take 0.5 tablet by mouth in the morning atorvastatin (LIPITOR) 40 mg tablet Indications: hyperlipidemia Take 0.5 tablets (20 mg total) by mouth in the morning. Indications: excessive fat in the blood. 12/29/2023 Active Start: 08-20-2020 take 40 mg by mouth once daily Atorvastatin Active 40 MG PO Daily August 20, 2020 1:00am ferrous sulfate (10 sources) End: 06-01-2024 take 1 tablet by mouth in the morning Ferrous Sulfate (IRON PO) Take 1 tablet by mouth in the morning. 06/01/2024 Discontinued (Therapy completed) take 1 tablet by mouth in the mo rning Ferrous Sulfate (IRON PO) Take 1 tablet by mouth in the morning. Active gabapentin 300 mg oral capsule (13 sources) Anti-epileptic Agent Start: 01-18-2024 End: 06-01-2024 take 1 capsule by mouth at bedtime gabapentin (Neurontin) 300 MG capsule Indications: Right leg weakness , DDD (degenerative disc disease), lumbosacral TAKE 1 CAPSULE BY MOUTH AT BEDTIME 30 capsule 2 05/11/2024 06/01/2024 Discontinued (Therapy completed) latanoprost 0.05 mg/ml ophthalmic solution (16 sources) Prostaglandin Analog Start: 03-08-2024 take 1 drop(s) into the eye(s) once daily latanoprost (XALATAN) 0.005 % ophthalmic solution Indications: Glaucoma of both eyes, unspecified glaucoma type Administer 1 drop to both eyes nightly. 03/08/2024 Active Start: 02-17-2024 latanoprost (X alatan) 0.005 % ophthalmic solution INSTILL ONE DROP IN EACH EYE BEFORE BED 02/17/2024 Active lisinopril 10 mg oral tablet (11 sources) Angiotensin Converting Enzyme Inhibitor Start: 02-23-2024 End: 06-01-2024 take 1 tablet by mouth in the morning lisinopril 10 MG tablet Take 10 mg by mouth in the morning. 02/23/2024 06/01/2024 Discontinued (Therapy completed) Start: 08-22-2020 take 10 mg by mouth once daily Lisinopril Active 10 MG PO Daily August 22, 2020 1:00am meloxicam 15 mg oral tablet (17 sources) Nonsteroidal Anti-inflammatory Drug Start: 12-29-2023 End: 05-11-2024 take 1 tablet by mouth in the morning meloxicam (MOBIC) 15 mg tablet Indications: Localized osteoarthritis of lumbar spine TAKE 1 TABLET (15 MG TOTAL) BY MOUTH IN THE MORNING 30 tablet 1 05/11/2024 Active pregabalin 50 mg oral capsule (6 sources) Start: 05-16-2024 pregabalin (LYRICA) 50 mg capsule Has not started it. 05/16/2024 Active tamsulosin hydrochloride 0.4 mg oral capsule (10 sources) alpha-Adrenergic Fritz End: 06-01-2024 take 1 capsule by mouth once daily tamsulosin (Flomax) 0.4 MG 24 hr capsule Take 0.4 mg by mouth Daily 06/01/2024 Discontinued (Therapy completed) thiamine 100 mg oral tablet (1 source) Start: 08-22-2020 take 100 mg by mouth twice daily Thiamine Hcl (Vitamin B1) Active 100 MG PO Twice daily 60 August 22, 2020 1:00am topiramate 50 mg oral tablet (15 sources) Start: 04-29-2024 End: 06-13-2024 take 1 tablet by mouth in the morning, then take 1 tablet by mouth at bedtime topiramate (TOPAMAX) 50 mg tablet Indications: Intractable chronic post-traumatic headache Take 1 tablet (50 mg total) by mouth in the morning and 1 tablet (50 mg total) before bedtime. 180 tablet 06/13/2024 Active traMADol hydrochloride 50 mg oral tablet (13 sources) Opioid Agonist Start: 06-18-2024 take 1 tablet by mouth twice daily as needed for pain ULTRAM 50 mg tablet Indications: Intractable chronic post-traumatic headache Take 1 tablet (50 mg total) by mouth 2 (two) times a day as needed for pain. 30 tablet 06/18/2024 Active Start: 06-18-2024 take 1 tablet by yumiko twice daily as needed for pain ULTRAM 50 mg tablet Indications: Intractable chronic post-traumatic headache Take 1 tablet (50 mg total) by mouth 2 (two) times a day as needed for pain. 30 tablet 06/18/2024 Active Start: 05-09-2024 End: 06-13-2024 take 1 tablet by mouth twice daily as needed for pain ULTRAM 50 mg tablet TAKE 1 TABLET BY MOUTH TWICE A DAY NEEDED FOR PAIN FOR UP TO 15 DAYS 05/25/2024 06/13/2024 Discontinued (Reorder) Start: 04-28-2024 End: 05-11-2024 take 1 tablet by mouth every six hours as needed ULTRAM 50 mg tablet Take 1 tablet (50 mg total) by mouth every 6 (six) hours as needed. 04/28/2024 05/11/2024 Discontinued (Dose adjustment) vitamin b12 1 mg oral tablet (16 sources) Vitamin B12 Start: 12-08-2023 take 1 tablet by mouth in the morning cyanocobalamin 1000 MCG tablet Indications: B12 deficiency TAKE 1 TABLET (1,000 MCG TOTAL) BY MOUTH IN THE MORNING 90 tablet 1 03/24/2024 Active Completed/Discontinued Medications Medication Drug Class(es) Dates Sig (Normalized) Sig (Original) rggmduha-clxz-EU-ca lcium &mins (THERAGRAN-M) 9 mg iron-400 mcg tablet (3 sources) End: 05-19-2024 rfqgkzju-icfu-RH-bruno cium &mins (THERAGRAN-M) 9 mg iron-400 mcg tablet Take 1 tablet by mouth in the morning. 05/19/2024 Discontinued (Therapy completed) pvjelytu-lhso-CS -calcium &mins (THERAGRAN-M) 9 mg iron-400 mcg tablet Take 1 tablet by mouth in the morning. Active Problems Active Problems Problem Classification Problem Date Documented Date Episodic/Chronic Abdominal pain (1 source) Abdominal pain; Translations: [Unspecified abdominal pain] 07-15-2023 Episodic Asthma (1 source) Unspecified asthma, uncomplicated; Translations: [UNSPECIFIED ASTHMA UNCOMPLICATED] Onset: 12-09-2018 Chronic Cataract (1 source) Unspecified cataract; Translations: [Unspecified cataract] Onset: 12-29-2023 Chronic Conditions associated with dizziness or vertigo (2 sources) Meniere's disease, bilateral; Translations: [Meniere's disease] Onset: 12-29-2023 05-25-2024 Chronic Conditions associated with dizziness or vertigo (2 sources) Vertigo; Translations: [Dizziness and giddiness] 05-17-2024 Episodic Disorders of lipid metabolism (13 sources) Hyperlipidemia, unspecified; Translations: [Hyperlipidemia] Onset: 08-21-2022 07-15-2023 Chronic Diverticulosis and diverticulitis (20 sources) Diverticulitis of colon with perforation; Translations: [Diverticulitis of large intestine with perforation and abscess without bleeding] Onset: 04-23-2020 03-08-2024 Chronic Essential hypertension (10 sources) Essential hypertension; Translations: [Essential (primary) hypertension] Onset: 08-21-2022 03-08-2024 Chronic Glaucoma (2 sources) Bilateral glaucoma; Translations: [Unspecified glaucoma] Onset: 03-08-2024 05-19-2024 Chronic Headache; including migraine (4 sources) Intractable chronic headache following trauma; Translations: [Chronic post-traumatic headache, intractable] Onset: 04-28-2024 05-19-2024 Chronic Headache; including migraine (1 source) Headache Onset: 05-19-2024 Episodic Hepatitis (1 source) Nonalcoholic steatohepatitis (VIEIRA); Translations: [Nonalcoholic steatohepatitis (VIEIRA)] Onset: 12-22-2023 Chronic Mood disorders (7 sources) Depressive disorder; Translations: [Depression] Onset: 04-29-2024 07-15-2023 Chronic Other connective tissue disease (6 sources) Other symptoms and signs involving the musculoskeletal system; Translations: [Other musculoskeletal symptoms referable to limbs] Onset: 02-18-2024 05-10-2024 Episodic Other ear and sense organ disorders (1 source) Sensorineural hearing loss, bilateral; Translations: [Sensorineural hearing loss, bilateral] 05-25-2024 Chronic Other ear and sense organ disorders (2 sources) Asymmetrical sensorineural hearing loss; Translations: [Sensorineural hearing loss, bilateral] 06-01-2024 Chronic Other ear and sense organ disorders (3 sources) Bilateral tinnitus; Translations: [Tinnitus, bilateral] 05-25-2024 Episodic Other nervous system disorders (1 source) Carpal tunnel syndrome of right wrist; Translations: [Carpal tunnel syndrome, right upper limb] 05-10-2024 Chronic Other nervous system disorders (2 sources) Polyneuropathy; Translations: [Polyneuropathy, unspecified] 05-12-2024 Chronic Other nervous system disorders (2 sources) Impairment of balance; Translations: [Other abnormalities of gait and mobility] 06-01-2024 Episodic Other non-traumatic joint disorders (2 sources) Chronic pain of right upper limb; Translations: [Pain in right shoulder] 05-17-2024 Episodic Residual codes; unclassified (1 source) Alcoholism; Translations: [Alcohol use disorder] 07-15-2023 Episodic Spondylosis; intervertebral disc disorders; other back problems (6 sources) Lumbar spondylosis; Translations: [Spondylosis without myelopathy or radiculopathy, lumbar region] Onset: 12-29-2023 05-11-2024 Chronic Substance-related disorders (11 sources) Nicotine dependence, cigarettes, uncomplicated; Translations: [Smoker] Onset: 12-09-2018 03-08-2024 Chronic Suicide and intentional self-inflicted injury (1 source) Suicidal thoughts; Translations: [Suicidal ideations] 07-15-2023 Episodic Unclassified (2 sources) Chronic pain of right upper limb 05-17-2024 Unclassified (1 source) discuss test results Onset: 12-29-2023 Unclassified (1 source) New Patient Onset: 12-07-2023 Past or Other Problems Problem Classification Problem Date Documented Date Episodic/Chronic Acute bronchitis (1 source) Acute bronchitis, unspecified; Translations: [ACUTE BRONCHITIS UNSPECIFIED] Onset: 9 Episodic Acute posthemorrhagic anemia (16 sources) Acute posthemorrhagic anemia; Translations: [Acute posthemorrhagic anemia] Onset: 03-08-2024 Episodic Cardiac dysrhythmias (2 sources) Tachycardia, unspecified; Translations: [Tachycardia, unspecified] Onset: 4 Episodic Coagulation and hemorrhagic disorders (10 sources) Purpuric rash; 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] Onset: 3 03-08-2024 Episodic Diabetes mellitus without complication (10 sources) Hyperglycemia; Translations: [Hyperglycemia, unspecified] Onset: 3 03-08-2024 Episodic E Codes: Fall (10 sources) Fall; Translations: [Unspecified fall, initial encounter] Onset: 2 03-08-2024 Episodic Fluid and electrolyte disorders (10 sources) Hypokalemia; Translations: [Hypokalemia] Onset: 3 03-08-2024 Episodic Genitourinary symptoms and ill-defined conditions (16 sources) Retention of urine; Translations: [Retention of urine, unspecified] Onset: 2 03-08-2024 Episodic Intracranial injury (19 sources) Unspecified intracranial injury 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 with patient surviving, initial encounter; Translations: [Traumatic brain injury] Onset: 4 03-08-2024 Episodic Mood disorders (6 sources) Mood disorders Onset: 4 Resolved: 4 04-28-2024 Nutritional deficiencies (2 sources) Deficiency of other specified B group vitamins; Translations: [Deficiency of other specified B group vitamins] Onset: 4 Episodic Other circulatory disease (2 sources) Orthostatic hypotension; Translations: [Orthostatic hypotension] Onset: 4 Episodic Other fractures (16 sources) Closed fracture of multiple left ribs; Translations: [Multiple fractures of ribs, left side, initial encounter for closed fracture] Onset: 2 03-08-2024 Episodic Other gastrointestinal disorders (16 sources) Oropharyngeal dysphagia; Translations: [Dysphagia, oropharyngeal phase] Onset: 2 03-08-2024 Episodic Other lower respiratory disease (3 sources) Cough; Translations: [COUGH] Onset: 9 Episodic Other nutritional; endocrine; and metabolic disorders (10 sources) Overweight; Translations: [Overweight] Onset: 3 03-08-2024 Episodic Other upper respiratory infections (1 source) Acute upper respiratory infection, unspecified; Translations: [ACUTE UP RESPIRATORY INFECTION UNS] Onset: 9 Episodic Residual codes; unclassified (16 sources) History of closure of colostomy; Translations: [Other specified postprocedural states] Onset: 1 03-08-2024 Episodic Spondylosis; intervertebral disc disorders; other back problems (4 sources) Cervical radiculopathy; Translations: [Radiculopathy, cervical region] Onset: 4 05-10-2024 Episodic Unclassified (4 sources) Weakness of right upper extremity 05-17-2024 Results Test Name Value Interpretation Reference Range Facility MR BRAIN W AND WO CONTRAST ( IACS)on 06-13-2024 MR BRAIN W AND WO CONTRAST (IACS) TITLE OF EXAM: MR BRAIN W AND WO CONTRAST (IACS) REASON FOR EXAM: Chronic tinnitus, vertigo TECHNIQUE: Multisequence, multiplanar MRI of the brain prior to and following the intravenous administration of 7.5 cc Vueway COMPARISON: Brain MRI 12/22/2023 FINDINGS: Cerebellopontine angles and temporal bones: No mass or abnormal enhancement in the cerebellopontine angles or internal auditory canals. The vestibules, cochlea, and semicircular canals demonstrate normal morphology, size, and signal. No significant fluid in the tympanic cavities. Normal evaluable trigeminal nerves. Brain and other intracranial structures: Small region of susceptibility and encephalomalacia along the anterior aspect of the left sylvian fissure, unchanged. No abnormal enhancement. Otherwise, the ventricles and extra-axial spaces are normal in volume/caliber for age. There is no mass lesion, hemorrhage, or acute infarct. Skull/scalp: Normal. Orbits and face (included portions): Normal. Paranasal sinuses (included portions): Clear. IMPRESSION: 1. No mass or other abnormality of the IACs, cerebellopontine angles, or labyrinthine structures. No findings to explain the patient's reported tinnitus. 2. Encephalomalacia and susceptibility along the anterior aspect of the left sylvian fissure, unchanged, reportedly a site of prior injury and hemorrhage. DICTATED ON: 06/13/2024 2:31 PM This report has been electronically signed in approved by the interpreting radiologist. Normal Not Available Comment on above: Order Comment: MRI B rain & IAC W/WO at [facility]. Please call patient to schedule. Auditory function testson Right Ear: Mild to moderate sensorineural hearing loss above 2K Hz. Left Ear: Mild to moderate sensorineural hearing loss above 1K Hz. [facility] Simple Beat e EMG 1 Extremeityon Very mild C8 radiculopathy on the right Mild carpal tunnel syndrome on the right No clear explanation for right shoulder pain [facility] Sudikshacar e NVC 5-6 Nerveson 05-10-2024 Very mild C8 radiculopathy on the right Mild carpal tunnel syndrome on the right No clear explanation for right shoulder pain [facility] Simple Beat e Refillon 03-24-2024 Refill [id number] Maxwell Harris 1965 M Date Provider Department Center 03/24/2024 [id number] HOLMAN INT MED Comprehensiv Family History Problem Relation Age of Onset Diabetes Mother Lung cancer Mother Kidney failure Mother Heart disease Father Other Father Family Status - Relation Status Age at Mother Father Reason for Visit and Comments: Med Refill [[id number]] Normal [facility] 36on 02-23-2024 36 Refill request for [...] (1 of 2) Never done COVID-19 Vaccine (3 - season) 2023 Influenza Vaccine (1) 04/03/2024 HIB [...] Perforated diverticulum Purpura (CMS/HCC) Urinary retention Normal [facility] Refillon 02-22-2024 Refill [id number] Maxwell Harris 1965 M Date Provider Department Center 02/22/2024 [id number] HOLMAN INT MED Comprehensiv Family History Problem Relation Age of Onset Diabetes Mother Lung cancer Mother Kidney failure Mother Heart disease Father Other Father Family Status - Relation Status Age at Mother Father Reason for Visit and Comments: Med Refill [[id number]] Normal [facility] XR pre/post mri xrayon 02-17 XR pre/post mri xray [facility] [place] [address] MRI Report Signed Patient: Maxwell Harris MR#: [id number] : 1965 Acct:[id number] Age/Sex: 58 / M ADM Date: 02/18/24 Loc: ICMR Room: Type: [facility] Attending Dr: Deanna Mejia DO Copies to: Deanna Mejia DO Ordering Provider: Deanna Mejia DO Date of Service: 02/18/24 MR/MR lumbar spine wo con: [id number] ([id number]) XR/XR pre/post mri xray: LUMBAR PRES MR [...] Cain Trinidad M.D.02/18/2024 4:45 PM Dictation Location: [place] [address] Transcribed By: [facility] 02/18/24 1645 Dictated By: Cain Trinidad II, MD 02/18/24 1628 Signed By: 02/18/24 1645 Normal [facility] MR BRAIN WO CONTon MR [...] Maurer MD on 12/23/2023 9:31 AM Normal [facility] US ABDOMEN LMTDon 12-23-2023 US ABDOMEN LMTD [...] Chopra MD on 12/23/2023 1:10 PM Normal [facility] CBC AND AUTO DIFFon 12-07-19 ABSOLUTE BASOPHIL 0.1 X10E9/L Normal 0.0-0.2 [facility] Comment on above: Performed By: #### C TEJAS, 53483-1, TSHR, CBCA, 2132-04 #### [facility] ([id number]) [address], [address] [place] [address] ABSOLUTE NEUTROPHIL 3.2 X10E9/L Normal 1.5-6.6 [facility] Comment on above: Performed By: #### C TEJAS, 38609-5, TSHR, CBCA, 2132-04 #### [facility] ([id number]) [address] [place] [address] Basophils/100 WBC (Bld) 0.9 % Normal [facility] Comment on above: Performed By: #### C TEJAS, 02489-8, TSHR, CBCA, 2132-04 #### [facility] ([id number]) [address], [address] [place] [address] Eosinophils (Bld) [#/Vol] 0.0 10*3/uL Normal 0.0-0.4 [facility] Comment on above: Performed By: #### [place] MP, 86406-6, TSHR, CBCA, 2132-04 #### [facility] ([id number]) [address], [address] [place] [address] Eosinophils/100 WBC (Bld) 0.7 % Normal [facility] Comment on above: Performed By: #### C TEJAS, 68042-8, TSHR, CBCA, 2132-04 #### [facility] ([id number]) [address] [place] [address] Erythrocyte distribution width (RBC) [Ratio] 13.9 % Normal 11.5-15.0 [facility] Comment on above: Performed By: #### C TEJAS, 69869-6, TSHR, CBCA, 2132-04 #### [facility] ([id number]) [address] [place] [address] Hematocrit (Bld) [Volume fraction] 48.0 % Normal 39-49 [facility] Comment on above: Performed By: #### C TEJAS, 47489-1, TSHR, CBCA, 2132-04 #### [facility] ([id number]) [address], [address] [place] [address] Hemoglobin (Bld) [Mass/Vol] 16.4 g/dL Normal 13.0-17.0 [facility] Comment on above: Performed By: #### C TEJAS, 61699-1, TSHR, CBCA, 2132-04 #### [facility] ([id number]) [address] [place] [address] Lymphocytes (Bld) [#/Vol] 1.6 10*3/uL Normal 1.0-3.5 [facility] Comment on above: Performed By: #### C TEJAS, 17529-6, TSHR, CBCA, 2132-04 #### [facility] ([id number]) [address] [place] [address] Lymphocytes/100 WBC (Bld) 28.7 % Normal [facility] Comment on above: Performed By: #### C TEJAS, 80378-0, TSHR, CBCA, 2132-04 #### [facility] ([id number]) [address] [place] [address] MCH (RBC) [Entitic mass] 34.9 pg High 27-34 [facility] Comment on above: Performed By: #### C TEJAS, 23501-7, TSHR, CBCA, 2132-04 #### [facility] ([id number]) [address], [address] [place] [address] MCHC (RBC) [Mass/Vol] 34.2 g/dL Normal 32-36 [facility] Comment on above: Performed By: #### C TEJAS, 05204-0, TSHR, CBCA, 2132-04 #### [facility] ([id number]) [address], [address] [place] [address] MCV (RBC) [Entitic vol] 102 fL High 80-100 [facility] Comment on above: Performed By: #### C TEJAS, 88677-5, TSHR, CBCA, 2132-04 #### [facility] ([id number]) [address], [address] [place] [address] Monocytes (Bld) [#/Vol] 0.6 10*3/uL Normal 0-0.9 [facility] Comment on above: Performed By: #### C TEJAS, 59599-2, TSHR, CBCA, 2132-04 #### [facility] ([id number]) [address] [place] [address] Monocytes/100 WBC (Bld) 10.8 % Normal [facility] Comment on above: Performed By: #### C MP, 19328-9, TSHR, CBCA, 2132-04 #### [facility] ([id number]) [address] [place] [address] Neutrophils/100 WBC (Bld) 58.9 % Normal [facility] Comment on above: Performed By: #### C TEJAS, 24216-6, TSHR, CBCA, 2132-04 #### [facility] ([id number]) [address] [place] [address] Platelet mean volume (Bld) [Entitic vol] 8.9 fL Normal 7-12 [facility] Comment on above: Performed By: #### C MP, 15548-7, TSHR, CBCA, 2132-04 #### [facility] ([id number]) [address], [address] [place] [address] Platelets (Bld) [#/Vol] 95 10*3/uL Low 150-450 [facility] Comment on above: Performed By: #### C TEJAS, 29604-6, TSHR, CBCA, 2132-04 #### [facility] ([id number]) [address], [address] [place] [address] RBC COUNT 4.70 X10E12/L Normal 4.10-5.70 [facility] Comment on above: Performed By: #### C TEJAS, 61694-4, TSHR, CBCA, 2132-04 #### [facility] ([id number]) [address] [place] [address] WBC (Bld) [#/Vol] 5.4 10*3/uL Normal 4.0-11.0 [facility] Comment on above: Performed By: #### C MP, 72303-5, TSHR, CBCA, 2132-04 #### [facility] ([id number]) [address] [place] [address] COMPREHENSIVE METABOLIC PANE Alejandro 12-07-2023 Albumin [Mass/Vol] 3.8 g/dL Normal 3.2-5.3 [facility] Comment on above: Performed By: #### C TEJAS, 93850-1, TSHR, CBCA, 2132-04 #### [facility] ([id number]) [address], [address] [place] [address] ALP [Catalytic activity/Vol] 89 U/L Normal 39-130 [facility] Comment on above: Performed By: #### C TEJAS, 61496-3, TSHR, CBCA, 2132-04 #### [facility] ([id number]) [address] [place] [address] ALT [Catalytic activity/Vol] 33 U/L Normal 0-40 [facility] Comment on above: Performed By: #### C TEJAS, 83662-1, TSHR, CBCA, 2132-04 #### [facility] ([id number]) [address] [place] [address] Anion gap [Moles/Vol] 10 mmol/L Normal 5-15 [facility] Comment on above: Performed By: #### C TEJAS, 40490-8, TSHR, CBCA, 2132-04 #### [facility] ([id number]) [address], [address] [place] [address] AST [Catalytic activity/Vol] 58 U/L High 0-41 [facility] Comment on above: Performed By: #### C TEJAS, 98971-5, TSHR, CBCA, 2132-04 #### [facility] ([id number]) [address], [address] [place] [address] Bilirubin [Mass/Vol] 0.7 mg/dL Normal 0.3-1.2 [facility] Comment on above: Performed By: #### C TEJAS, 38438-8, TSHR, CBCA, 2132-04 #### [facility] ([id number]) [address], [address] [place] [address] Calcium [Mass/Vol] 8.9 mg/dL Normal 8.5-10.5 [facility] Comment on above: Performed By: #### C TEJAS, 98814-8, TSHR, CBCA, 2132-04 #### [facility] ([id number]) [address], [address] [place] [address] Chloride [Moles/Vol] 107 mmol/L Normal 98-109 [facility] Comment on above: Performed By: #### [place], 15224-5, TSHR, CBCA, 2132-04 #### [facility] ([id number]) [address], [address] [place] [address] CO2 [Moles/Vol] 26 mmol/L Normal 22-32 [facility] Comment on above: Performed By: #### [place], 97194-4, TSHR, CBCA, 2132-04 ####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 STAFF Primary Care Provider Active Start: February 18, 2024 End: February 18, 2024 Deanna Mejia DO Attending Provider Active Start: February 18, 2024 End: February 18, 2024 Branch Account Executive Relationship Specialty Start Date End Date Cris Singh MD [address] [place] [address] PCP - General Internal Medicine 01/04/24 Branch Account Executive Relationship Specialty Start Date End Date Cris Singh MD [address] [place] [address] PCP - General Internal Medicine 01/04/24 Branch Account Executive Relationship Specialty Start Date End Date Cris Singh DO [address] [place] [address] PCP - General Internal Medicine 12/07/23 Branch Account Executive Relationship Specialty Start Date End Date Cris Singh DO [address] [facility] [place] [address] PCP - General Internal Medicine 12/07/23 Branch Account Executive Relationship Specialty Start Date End Date Cris Singh MD [address] [place] [address] PCP - General Internal Medicine 01/04/24 Branch Account Executive Relationship Specialty Start Date End Date Cris Singh MD [address] [facility] [place] [address] PCP - General Internal Medicine 01/04/24 Branch Account Executive Relationship Specialty Start Date End Date Cris Singh MD [address] [place] [address] PCP - General Internal Medicine 01/04/24 Branch Account Executive Relationship Specialty Start Date End Date Cris Singh DO [address] [facility] [place] [address] PCP - General Internal Medicine 12/07/23 Branch Account Executive Relationship Specialty Start Date End Date Cris Singh MD [address] [facility] [place] [place] [address] PCP - General Internal Medicine 01/04/24 Branch Account Executive Relationship Specialty Start Date End Date Cris Singh DO [address] [facility] [place] [address] PCP - General Internal Medicine 12/07/23 Branch Account Executive Relationship Specialty Start Date End Date Cris Singh DO [address] [facility] [place] [address] PCP - General Internal Medicine 12/07/23 Goals (unrecognized section and content) Goals may be documented in a n alternate section Reason for Visit (unrecogniz ed section and content) Reason Comments Med Refill Reason Comments Numbness Extremity Weakness Reason Comments Headache Continued headaches Reason Onset Date Comments Med Refill 05/30/2024 Reason Comments Meniere's Disease Audio 05/25/24 Reason Onset Date Comments Med Refill 06/13/2024 FOR RECORDS PERTAINING TO PATIENTS WHO ARE [...] BE BASED ON THE PRIMARY CLINICAL RECORDS. [employer] [facility]. provides no warranty or guarantee of the accuracy or completeness of information in this document.
== END 2024-06-23 11:28 | disposition home or self-care (01) ==
LOC: MRI 11:28
PROVIDERS: PCP Internal Medicine; Visit Provider Nurse Practitioner Family
DX: R29.898 Other symptoms and signs involving the musculoskeletal system (principal); M50.30 Other cervical disc degeneration, unspecified cervical region
CPT/HCPCS: 72156; A9575

== ENCOUNTER 2024-06-27 13:34 | Outpatient (OUT) | payer BC, OTHER, SELFPAY ==
--- NOTE | 2024-06-27 14:56 | P.CN_ITS ---
Consult Note: HPI Data of Consult Patient: known to practice within the last 3 years Consult date: 06/27/24 Requesting Physician: Lalitha Vela MD Primary Care Provider: CRIS SINGH Consult Narrative Reason for consult: neck, low back and bilateral lower extremity pain Narrative: 58yom who presents for assessment. continues to have neck pain, low back pain, bilateral LE pain. cervical imaging reviewed, significant for marked central canal narrowing at c3-4, with more moderate stenosis at other levels. no recent imaging of lumbar spine available. continues to engage in a series of provider directed home exercises >6 weeks, without lasting benefit. uses tramadol, lyrica, mobic. denies adverse med side effects. cc:: CC: Lalitha Vela MD Review of Systems ROS Status of ROS 10 or more systems reviewed and unremark able except as noted in history and below Meds Home Medications and Allergies Home Medications ?Medication ?Instructions ?Recorded ?Confirmed ?Type atorvastatin 40 mg tablet 40 mg PO DAILY 05/16/24 05/16/24 History cyanocobalamin (vitamin B-12) 2,000 mcg PO DAILY 05/16/24 05/16/24 History 1,000 mcg tablet (Vitamin B-12) meloxicam 15 mg tablet 15 mg PO DAILY 05/16/24 05/16/24 History pregabalin 50 mg capsule (Lyrica) 50 mg PO TID 05/16/24 05/16/24 History topiramate 50 mg tablet 50 mg PO BID 05/16/24 05/16/24 History tramadol 50 mg tablet 50 mg PO Q12H 05/16/24 05/16/24 History hydrocodone 5 mg-acetaminophen 325 1 tab PO BID PRN pain #60 tabs 06/27/24 Rx mg tablet pregabalin 75 mg capsule 75 mg PO TID #90 caps 06/27/24 Rx Allergies Allergy/AdvReac Type Severity Reaction Status Date / Time No Known Drug Allergies Allergy Verified 05/16/24 16:04 Exam Narrative Exam Narrative: Psych-alert and oriented x 3. Attentive and appropriate, constitutionally normal, displays normal mood and affect per situation. There are no obvious deficits in memory, reasoning, or intellect.? Skin-no obvious rashes, bruising, erythema noted to the patient's area of pain.? Extremities- extremities are warm with minimal edema and palpable pulses. Lumbar-tenderness to palpation noted in the lumbar spine and paraspinal musculature. Pain is elicited with flexion, extension, and lateral rotation of the lumbar spine. Range of motion is diminished with these motions. Facet loading maneuvers are positive. Strength-noted to be unremarkable with the exception of decreased strength rated at 4 out of 5 in bilateral quadriceps femoris, anterior tibialis. Sensory-no notable sensory deficits in the bilateral lower extremities to touch or pinprick in all dermatomal distributions with the exception to decreased sensation to the bilateral L4, 5 dermatomal distribution Coordination remains intact.? Gait remains non-antalgic. Assessment and Plan Assessment and Plan (1) Lumbar stenosis with neurogenic claudication: (2) Cervical stenosis of spinal canal: Plan 58yom who presents for assessment. failed conservative measures, as noted. given cervical imaging, would like surgical eval before consideration of any interventions in cervical spine. he has appointment scheduled in two weeks, so will have him follow up after this evaluation. in terms of low back and leg pain, will have him undergo lumbar mri without contrast. he is in agreement. meds reviewed. will discontinue tramadol and trial norco 5mg bid prn. will increase lyrica to 75mg tid. follow up after imaging and surgical eval.
== END 2024-06-27 13:35 | disposition home or self-care (01) ==
PROVIDERS: PCP Internal Medicine; Visit Provider Anesthesiology
DX: M48.062 Spinal stenosis, lumbar region with neurogenic claudication (principal); M48.02 Spinal stenosis, cervical region
CPT/HCPCS: G0463

== ENCOUNTER 2024-07-01 17:38 | Emergency (ER) | payer BC, OTHER, SELFPAY ==
--- OUTSIDE RECORDS SUMMARY | 2024-07-01 17:46 | XMS_ITS | CCD ---
Author Organization [facility] Care Team Providers Care Plasma Processing Technician Name Role Phone Cris Cruz Attending Unavailable [...] Unavailable YUHAS, CRIS Plummer Primary Care Unavailable CIRS SINGH Attending Unavailable FRANCISCO, CRIS Plummer Referring Unavailable MARLINEHAS, CRIS L Primary Care Unavailable FRANICSCO, CRIS Plummer Attending Unavailable FRANCISCO, CRIS Plummer Referring Unavailable MARLINEHAS, CRIS Kavitha Primary Care Unavailable DEANNA MEJIA Attending Unavailable CRIS SINGH Referring Unavailable DEANNA MEJIA Referring Unavailable DEANNA MEJIA Attending Unavailable ROB MONTES DE OCA Attending Unavailable DEANNA MEJIA Attending Unavailable ROB MONTES DE OCA Attending Unavailable SEHLBY DENSON Attending Unavailable CRIS SINGH Referring Unavailable [...] Drug Class(es) Dates Sig (Normalized) Sig (Original) iqugnmil-oyza-CK-ca lcium &mins (THERAGRAN-M) 9 mg iron-400 mcg tablet (3 sources) End: 05-19-2024 otitloty-qacu-IS-bruno cium &mins (THERAGRAN-M) 9 mg iron-400 mcg tablet Take 1 tablet by mouth in the morning. 05/19/2024 Discontinued (Therapy completed) cqzoahsb-moyg-VT -calcium &mins (THERAGRAN-M) 9 mg iron-400 mcg [...] MRI B rain & IAC W/WO at [facility]. Please call patient to schedule. Auditory function testson Right Ear: Mild to moderate sensorineural hearing loss above 2K Hz. Left Ear: Mild to moderate sensorineural hearing loss above 1K Hz. [facility] [employer] e EMG 1 Extremeityon Very mild C8 radiculopathy on the right Mild carpal tunnel syndrome on the right No clear explanation for right shoulder pain [facility] [employer] e NVC 5-6 Nerveson 05-10-2024 Very mild C8 radiculopathy on the right Mild carpal tunnel syndrome on the right No clear explanation for right shoulder pain [facility] [employer] [facility] Refillon 03-24-2024 Refill [id number] Maxwell Harris 1965 M Date Provider Department Center 03/24/2024 [id number] HOLMAN INT MED Comprehensiv Family History Problem Relation Age of Onset Diabetes Mother Lung cancer Mother Kidney failure Mother Heart disease Father Other Father Family Status - Relation Status Age at Mother Father Reason for Visit and Comments: Med Refill [[id number]] Normal [facility] 36on 02-23-2024 36 Refill request [...] Perforated diverticulum Purpura (CMS/HCC) Urinary retention Normal [facility] Refillon 02-22-2024 Refill [id number] Maxwell Harris 1965 M Date Provider Department Center 02/22/2024 75852-NAHFJHXQMALACHI HOLMAN INT MED Comprehensiv Family History Problem Relation Age of Onset Diabetes Mother Lung cancer Mother Kidney failure Mother Heart disease Father Other Father Family Status - Relation Status Age at Mother Father Reason for Visit and Comments: Med Refill [[id number]] Normal [facility] XR pre/post mri xrayon 02-17 XR pre/post mri xray [facility] [place] [address] MRI Report Signed Patient: Maxwell Harris MR#: [id number] : 1965 Acct:[id number] Age/Sex: 58 / M ADM Date: 02/18/24 Loc: ICMR Room: Type: [facility] Attending Dr: Deanna Mejia DO Copies to: Deanna Mejia DO Ordering Provider: Deanna Mejia DO Date of Service: 02/18/24 MR/MR lumbar spine wo con: [id number] ([id number]) XR/XR pre/post mri xray: LUMBAR PRES MR [...] Cain Trinidad M.D.02/18/2024 4:45 PM Dictation Location: [place] [address] Transcribed By: [facility] 02/18/24 1645 Dictated By: Cain Trinidad II, MD 02/18/24 1628 Signed By: 02/18/24 1645 Normal [facility] MR BRAIN WO CONTon [...] Maurer MD on 12/23/2023 9:31 AM Normal [facility] US ABDOMEN LMTDon 12-23-2023 US ABDOMEN LMTD [...] Chopra MD on 12/23/2023 1:10 PM Normal [facility] CBC AND AUTO DIFFon 12-07-19 ABSOLUTE BASOPHIL 0.1 X10E9/L Normal 0.0-0.2 [facility] Comment on above: Performed By: #### C TEJAS, 54045-2, TSHR, CBCA, 2132-04 #### [facility] ([id number]) [address], [address] [place] [address] ABSOLUTE NEUTROPHIL 3.2 X10E9/L Normal 1.5-6.6 [facility] Comment on above: Performed By: #### C TEJAS, 75931-9, TSHR, CBCA, 2132-04 #### [facility] ([id number]) [address] [facility] [address] [place] [address] Basophils/100 WBC (Bld) 0.9 % Normal [facility] Comment on above: Performed By: #### C TEJAS, 02078-1, TSHR, CBCA, 2132-04 #### [facility] ([id number]) [address], [address] [place] [address] Eosinophils (Bld) [#/Vol] 0.0 10*3/uL Normal 0.0-0.4 [facility] Comment on above: Performed By: #### [place], 56540-6, TSHR, CBCA, 2132-04 #### [facility] ([id number]) [address], [address] [place] [address] Eosinophils/100 WBC (Bld) 0.7 % Normal [facility] Comment on above: Performed By: #### C TEJAS, 01592-2, TSHR, CBCA, 2132-04 #### [facility] ([id number]) [address] [facility] [address] [place] [address] Erythrocyte distribution width (RBC) [Ratio] 13.9 % Normal 11.5-15.0 [facility] Comment on above: Performed By: #### C TEJAS, 23554-7, TSHR, CBCA, 2132-04 #### [facility] ([id number]) [address] [address] [place] [address] Hematocrit (Bld) [Volume fraction] 48.0 % Normal 39-49 [facility] Comment on above: Performed By: #### C TEJAS, 62452-6, TSHR, CBCA, 2132-04 #### [facility] ([id number]) [address], [address] [place] [address] Hemoglobin (Bld) [Mass/Vol] 16.4 g/dL Normal 13.0-17.0 [facility] Comment on above: Performed By: #### C TEJAS, 93331-6, TSHR, CBCA, 2132-04 #### [facility] ([id number]) [address] [address] [place] [address] Lymphocytes (Bld) [#/Vol] 1.6 10*3/uL Normal 1.0-3.5 [facility] Comment on above: Performed By: #### C TEJAS, 79259-9, TSHR, CBCA, 2132-04 #### [facility] ([id number]) [address] [address] [place] [address] Lymphocytes/100 WBC (Bld) 28.7 % Normal [facility] Comment on above: Performed By: #### C TEJAS, 83525-0, TSHR, CBCA, 2132-04 #### [facility] ([id number]) [address], [address] [place] [address] MCH (RBC) [Entitic mass] 34.9 pg High 27-34 [facility] Comment on above: Performed By: #### C TEJAS, 25669-8, TSHR, CBCA, 2132-04 #### [facility] ([id number]) [address], [address] [place] [address] MCHC (RBC) [Mass/Vol] 34.2 g/dL Normal 32-36 [facility] Comment on above: Performed By: #### C TEJAS, 42992-9, TSHR, CBCA, 2132-04 #### [facility] ([id number]) [address], [address] [place] [address] MCV (RBC) [Entitic vol] 102 fL High 80-100 [facility] Comment on above: Performed By: #### C TEJAS, 94941-8, TSHR, CBCA, 2132-04 #### [facility] ([id number]) [address], [address] [place] [address] Monocytes (Bld) [#/Vol] 0.6 10*3/uL Normal 0-0.9 [facility] Comment on above: Performed By: #### C TEJAS, 67427-0, TSHR, CBCA, 2132-04 #### [facility] ([id number]) [address], [address] [place] [address] Monocytes/100 WBC (Bld) 10.8 % Normal [facility] Comment on above: Performed By: #### C MP, 35226-5, TSHR, CBCA, 2132-04 #### [facility] ([id number]) [address], [address] [place] [address] Neutrophils/100 WBC (Bld) 58.9 % Normal [facility] Comment on above: Performed By: #### C TEJAS, 55235-0, TSHR, CBCA, 2132-04 #### [facility] ([id number]) [address], [address] [place] [address] Platelet mean volume (Bld) [Entitic vol] 8.9 fL Normal 7-12 [facility] Comment on above: Performed By: #### C MP, 12432-0, TSHR, CBCA, 2132-04 #### [facility] ([id number]) [address], [address] [place] [address] Platelets (Bld) [#/Vol] 95 10*3/uL Low 150-450 [facility] Comment on above: Performed By: #### C TEJAS, 13589-8, TSHR, CBCA, 2132-04 #### [facility] ([id number]) [address], [address] [place] [address] RBC COUNT 4.70 X10E12/L Normal 4.10-5.70 [facility] Comment on above: Performed By: #### C TEJAS, 93296-9, TSHR, CBCA, 2132-04 #### [facility] ([id number]) [address], [address] [place] [address] WBC (Bld) [#/Vol] 5.4 10*3/uL Normal 4.0-11.0 [facility] Comment on above: Performed By: #### C MP, 39347-0, TSHR, CBCA, 2132-04 #### [facility] ([id number]) [address], [address] [place] [address] COMPREHENSIVE METABOLIC PANE Alejandro 12-07-2023 Albumin [Mass/Vol] 3.8 g/dL Normal 3.2-5.3 [facility] Comment on above: Performed By: #### C TEJAS, 92528-5, TSHR, CBCA, 2132-04 #### [facility] ([id number]) [address], [address] [place] [address] ALP [Catalytic activity/Vol] 89 U/L Normal 39-130 [facility] Comment on above: Performed By: #### C TEJAS, 63490-8, TSHR, CBCA, 2132-04 #### [facility] ([id number]) [address], [address] [place] [address] ALT [Catalytic activity/Vol] 33 U/L Normal 0-40 [facility] Comment on above: Performed By: #### C TEJAS, 33722-6, TSHR, CBCA, 2132-04 #### [facility] ([id number]) [address], [address] [place] [address] Anion gap [Moles/Vol] 10 mmol/L Normal 5-15 [facility] Comment on above: Performed By: #### C TEJAS, 75775-3, TSHR, CBCA, 2132-04 #### [facility] ([id number]) [address], [address] [place] [address] AST [Catalytic activity/Vol] 58 U/L High 0-41 [facility] Comment on above: Performed By: #### C TEJAS, 58404-7, TSHR, CBCA, 2132-04 #### [facility] ([id number]) [address], [address] [place] [address] Bilirubin [Mass/Vol] 0.7 mg/dL Normal 0.3-1.2 [facility] Comment on above: Performed By: #### C TEJAS, 23605-1, TSHR, CBCA, 2132-04 #### [facility] ([id number]) [address], [address] [place] [address] Calcium [Mass/Vol] 8.9 mg/dL Normal 8.5-10.5 [facility] Comment on above: Performed By: #### C TEJAS, 75582-4, TSHR, CBCA, 2132-04 #### [facility] ([id number]) [address], [address] [place] [address] Chloride [Moles/Vol] 107 mmol/L Normal 98-109 [facility] Comment on above: Performed By: #### C MP, 02568-8, TSHR, CBCA, 2132-04 #### [facility] ([id number]) [address], [address] [place] [address] CO2 [Moles/Vol] 26 mmol/L Normal 22-32 [facility] Comment on above: Performed By: #### C MP, 57368-3, TSHR, CBCA, 2132-04 #### [facility] ([id number]) [address], [address] [place] [address] Creatinine [Mass/Vol] 0.89 mg/dL Normal 0.60-1.30 [facility] Comment on above: Result Comment: METH OD TRACEABLE TO IDMS STANDARD Performed By: #### C TEJAS, 12588-0, TSHR, CBCA, 2132-04 #### [facility] ([id number]) [address], [address] [place] [address] eGFR (CKD-EPI) NON-RACE DEPENDENT >90 Normal >59 [facility] Comment on above: Result Comment: Reported eGFR is based on the CKD-EPI 2020 equation that does not use a race coefficient. Performed By: #### C MP, 87346-7, TSHR, CBCA, 2132-04 #### [facility] ([id number]) [address], [address] [place] [address] Glucose [Mass/Vol] 93 mg/dL Normal 65-99 [facility] Comment on above: Performed By: #### C MP, 62394-3, TSHR, CBCA, 2132-04 #### [facility] ([id number]) [address], [address] [place] [address] Potassium [Moles/Vol] 3.7 mmol/L Normal 3.5-5.0 [facility] Comment on above: Performed By: #### C TEJAS, 39642-3, TSHR, CBCA, 2132-04 #### [facility] ([id number]) [address] [place] [address] Protein [Mass/Vol] 6.6 g/dL Normal 6.0-8.0 [facility] Comment on above: Performed By: #### C TEJAS, 64549-1, TSHR, CBCA, 2132-04 #### [facility] ([id number]) [address], [address] [place] [address] Sodium [Moles/Vol] 143 mmol/L Normal 134-146 [facility] Comment on above: Performed By: #### C TEJAS, 64665-9, TSHR, CBCA, 2132-04 #### [facility] ([id number]) [address], [address] [place] [address] Urea nitrogen [Mass/Vol] 10 mg/dL Normal 5-23 [facility] Comment on above: Performed By: #### C TEJAS, 58707-5, TSHR, CBCA, 2132-04 #### [facility] ([id number]) [address], [address] [place] [address] Lipid 1996 panelon 4 Cholesterol [Mass/Vol] 103 mg/dL Low 150-200 [facility] Comment on above: Performed By: #### C TEJAS, 18271-4, TSHR, CBCA, 2132-04 #### [facility] ([id number]) [address] [place] [address] Cholesterol in HDL [Mass/Vol] 63 mg/dL Normal >39 [facility] Comment on above: Result Comment: HDL <40 mg/dL - High Risk HDL > or = 40mg/dL- Desirable HDL >60 mg/dL - Negative Risk Performed By: #### C TEJAS, 68228-1, TSHR, CBCA, 2132-04 #### [facility] ([id number]) [address], [address] [place] [address] Cholesterol in LDL [Mass/Vol] 5 mg/dL Normal <130 [facility] Comment on above: Result Comment: LDL <100 mg/dL - Desirable LDL >160 mg/dL - High Risk Performed By: #### C TEJAS, 69891-8, TSHR, CBCA, 2132-04 #### [facility] ([id number]) [address], [address] [place] [address] Cholesterol in VLDL [Mass/Vol] 35 mg/dL High 0-30 [facility] Comment on above: Performed By: #### C TEJAS, 45019-5, TSHR, CBCA, 2132-04 #### [facility] ([id number]) [address], [address] [place] [address] CHOLESTEROL:HDL 1.6 Normal 1.0-5.0 [facility] Comment on above: Performed By: #### C TEJAS, 90607-0, TSHR, CBCA, 2132-04 #### [facility] ([id number]) [address], [address] [place] [address] Triglyceride [Mass/Vol] 173 mg/dL High 27-150 [facility] Comment on above: Performed By: #### C TEJAS, 64522-4, TSHR, CBCA, 2132-04 #### [facility] ([id number]) [address], [address] [place] [address] TSH WITH REFLEXon 12-07-2023 TSH 1.69 uIU/mL Normal 0.49-4.67 [facility] Comment on above: Performed By: #### C MP, 12184-2, TSHR, CBCA, 2132-04 #### [facility] ([id number]) [address], [address] [place] [address] VITAMIN B12on 12-07-2023 Cobalamin (Vitamin B12) [Mass/Vol] 337 pg/mL Normal 180-914 [facility] Comment on above: Performed By: #### C MP, 64146-3, TSHR, CBCA, 2132-04 #### [facility] ([id number]) [address] [place] [address] 36on 08-31-2023 36 Please advise [facility] Refillon 08-31-2023 Refill [id number] Maxwell Harris 1965 M Date Provider Department Center 08/31/2023 [id number], MANI [facility] INT MED Comprehensiv Family History Problem Relation Age of Onset Diabetes Mother Lung cancer Mother Kidney failure Mother Heart disease Father Other Father Family Status - Relation Status Age at Mother Father Reason for Visit and Comments: Med Refill [[id number]] [facility] 36on 07-22-2023 36 Please advise [facility] Refillon 07-22-2023 Refill [id number] Maxwell Harris 1965 M Date Provider Department Center 07/22/2023 480-FADIA SHARPE [facility] INT MED Comprehensiv Family History Problem Relation Age of Onset Diabetes Mother Lung cancer Mother Kidney failure Mother Heart disease Father Other Father Family Status - Relation Status Age at Mother Father Reason for Visit and Comments: Med Refill [[id number]] Normal [facility] Refillon 05-06-2023 Refill [id number] Maxwell Harris 1965 M Date Provider Department Center 05/06/[address] [place] [address] MED Comprehensiv Family History Problem Relation Age of Onset Diabetes Mother Lung cancer Mother Kidney failure Mother Heart disease Father Other Father Family Status - Relation Status Age at Mother Father Reason for Visit and Comments: Med Refill [[id number]] [facility] Vital Signs Date Time Vital Sign Value Performing Clinician Facility 06-01-2024 13:09-0400 Body height 177.8 cm Addie Garay MD Work Phone: [facility] 06-01-2024 13:09-0400 Body mass index (BMI) [Ratio] 23.39 kg/m2 Addie Garay MD Work Phone: [facility] 06-01-2024 13:09-0400 Body weight 73.94 kg Addie Garay MD Work Phone: [facility] 06-01-2024 13:09-0400 Diastolic blood pressure 68 mm[Hg] Addie Garay MD Work Phone: [facility] 06-01-2024 13:09-0400 Systolic blood pressure 125 mm[Hg] Addie Garay MD Work Phone: [facility] 05-19-2024 12:36-0400 Body height 180.3 cm Cris Singh DO Work Phone: [facility] 05-19-2024 12:36-0400 Body mass index (BMI) [Ratio] 22.79 kg/m2 Cris Singh DO Work Phone: [facility] 05-19-2024 12:36-0400 Body temperature 98.01 [degF] Cris Singh DO Work Phone: [facility] 05-19-2024 12:36-0400 Body weight 74.12 kg Cris Singh DO Work Phone: [facility] 05-19-2024 12:36-0400 Diastolic blood pressure 70 mm[Hg] Cris Singh DO Work Phone: [facility] 05-19-2024 12:36-0400 Heart rate 83 /min Cris Singh DO Work Phone: [facility] 05-19-2024 12:36-0400 Respiratory rate 18 /min Cris Singh DO Work Phone: [facility] 05-19-2024 12:36-0400 SaO2% (BldA) [Mass fraction] 97 % Cris Singh DO Work Phone: [facility] 05-19-2024 12:36-0400 Systolic blood pressure 130 mm[Hg] Cris Singh DO Work Phone: [facility] 05-12-2024 14:09-0400 Body height 177.8 cm Rob Montes De Oca INSERTING OPERATOR Work Phone: [facility] 05-12-2024 14:09-0400 Body mass index (BMI) [Ratio] 23.56 kg/m2 Rob Montes De Oca INSERTING OPERATOR Work Phone: [facility] 05-12-2024 14:09-0400 Body weight 74.48 kg Rob Montes De Oca INSERTING OPERATOR Work Phone: [facility] 05-12-2024 14:09-0400 Diastolic blood pressure 68 mm[Hg] Rob Montes De Oca INSERTING OPERATOR Work Phone: [facility] 05-12-2024 14:09-0400 Heart rate 70 /min Rob Montes De Oca INSERTING OPERATOR Work Phone: [facility] 05-12-2024 14:09-0400 SaO2% (BldA) [Mass fraction] 97 % Rob Montes De Oca INSERTING OPERATOR Work Phone: [facility] 05-12-2024 14:09-0400 Systolic blood pressure 130 mm[Hg] Rob Montes De Oca INSERTING OPERATOR Work Phone: [facility] Healthcare Encounters Encounter Date Encounter Type Care Provider Facility Start: 06-16-2024 End: 06-17-2024 Telephone encounter [facility] Start: 06-13-2024 End: 06-13-2024 Refill [facility] Comment on above: Intractable chronic post-traumatic headache Start: 06-01-2024 End: 06-01-2024 Office outpatient new 45 minutes Addie Garay MD Work Phone: [facility] Comment on above: Bilateral tinnitus ( Primary Dx); Asymmetric SNHL (sensorineural hearing loss); Imbalance Start: 06-01-2024 End: 06-01-2024 ambulatory ADDIE GARAY Not Available Start: 05-30-2024 End: 05-30-2024 Refill [facility] Work Phone: [facility] - [facility] [...] 25 minutes Cris Singh DO Work Phone: [facility] Comment on above: Intractable chronic post-traumatic headache (Primary Dx); Localized osteoarthritis of lumbar spine; Glaucoma of both eyes, unspecified glaucoma type; Spondylosis of cervical spine Start: 05-19-2024 End: 05-19-2024 [facility] Start: 05-12-2024 End: 05-12-2024 Office outpatient visit 25 minutes Rob Montes De Oca NP Work Phone: [facility] Comment on above: Lumbar radiculopathy (Primary Dx); Weakness of right lower extremity; Polyneuropathy; Weakness of right upper extremity; Chronic right shoulder pain; Vertigo Start: 05-12-2024 End: 05-12-2024 Bamboo flowsheet Rob Montes De Oca INSERTING OPERATOR Work Phone: [facility] [address] Start: 05-12-2024 End: 05-12-2024 Bamboo flowsheet Rob Montes De Oca INSERTING OPERATOR [facility] Start: 05-12-2024 End: 05-16-2024 Telephone encounter Rob Montes De Oca INSERTING OPERATOR [facility] Start: 05-12-2024 End: 05-12-2024 ambulatory ROB MONTES DE OCA Not Available Start: 05-11-2024 End: 05-11-2024 Refill Cris Singh DO Work Phone: [facility] Comment on above: Localized osteoarthr itis of lumbar spine Start: 05-10-2024 End: 05-10-2024 Patient encounter procedure De[facility] Mejia DO [facility] Comment on above: Cervical radiculopat hy (Primary Dx); Weakness of right upper extremity; Carpal tunnel syndrome on right Start: 05-10-2024 End: 05-10-2024 Bamboo flowsheet Deanna Mejia DO [facility] Start: 05-10-2024 End: 05-10-2024 Bamboo flowsheet Deanna Mejia DO [facility] Start: 05-10-2024 End: 05-10-2024 ambulatory DEANNA MEJIA Not Available Start: 04-28-2024 End: 04-28-2024 ambulatory [facility] Start: 03-08-2024 Patient encounter status Jarrett Mejia DO Work Phone: [facility] Start: 03-08-2024 End: 03-08-2024 ambulatory [facility] Start: 02-24-2024 End: 02-24-2024 ambulatory ROB MONTES DE OCA Not Available Start: 02-18-2024 End: 02-18-2024 Patient encounter procedure [facility] [address] Work Phone: Start: 02-18-2024 End: 02-18-2024 ambulatory NON STAFF [facility] Work Phone: Start: 02-16-2024 End: 02-16-2024 ambulatory SORINBARTOLOMEER RAVINDER Not Available Start: 01-26-2024 End: 01-26-2024 ambulatory CHRISTOPHER RAVINDER Not Available Start: 01-18-2024 End: 01-18-2024 ambulatory CHRISTBARTOLOMEER RAVINDER Not Available Start: 12-29-2023 End: 12-29-2023 ambulatory [facility] Start: 12-22-2023 End: 12-23-2023 ambulatory [facility] Start: 12-07-2023 End: 12-08-2023 ambulatory [facility] Start: 12-07-2023 End: 12-07-2023 ambulatory [facility] Start: 12-07-2018 End: 12-07-2018 Patient encounter procedure NONE LISTED REQUEST Facility: Start: 11-22-2018 End: 11-23-2018 Patient encounter procedure Cris Cruz Facility:CD:[id number] Start: 09-10-2018 Patient encounter procedure ROXANE MITCHELL Facility:H1 Procedures Date Procedure Procedure Detail Performing Clinician Start: 05-25-2024 AUDITORY FUNCTION TESTS Shelby Denson CCC-A Work Phone: Start: 05-19-2024 Adult depression screening assessment Crsi Singh DO Work Phone: Start: 05-10-2024 End: 05-10-2024 Needle emg ea extremty w/paraspinl area complete Rob Montes De Oca INSERTING OPERATOR Work Phone: Start: 04-28-2024 Adult depression screening assessment Cris Singh DO Work Phone: Start: 03-08-2024 Follow-up visit Follow-up CRIS SINGH Start: 02-18-2024 MR lumbar spine wo con Start: 02-18-2024 XR pre/post mri xray Plan of Treatment Date Care Activity Detail Author Start: 05-19-2025 Adult BMI Screening Adult BMI Screen ing [facility] Start: 05-19-2025 Depression Screening Depression Scre ening [facility] Start: 05-19-2025 Tobacco Screening Tobacco Screening [facility] Start: 04-28-2025 Adult BMI Screening Adult BMI Screen ing [facility] Start: 04-28-2025 Depression Screening Depression Scre ening [facility] Start: 04-28-2025 Tobacco Screening Tobacco Screening [facility] Start: 08-22-2024 End: 08-22-2024 Patient encounter procedure 08/22/2024 2:30 PM EST Office Visit [facility] Internal Medicine - Family Medicine [address] [place] [phone] Cris Singh, [address] [facility] [place] [address] [facility] Internal Medicine - Family Medicine Start: 06-15-2024 End: 06-15-2024 Patient encounter procedure 06/15/2024 2:40 PM EST Office Visit [facility] [address] [facility] [place] [address] Rob Montes De Oca NP [address] [place] [phone] [facility] [place] [facility] Start: 06-01-2024 End: 06-01-2024 Patient encounter procedure 06/01/2024 1:10 PM EDT Office Visit [facility] [address] [facility] [address] [place] [phone] Addie Garay MD [address] [facility] [address] [place], [place] [id number] [facility] Start: 05-25-2024 End: 05-25-2024 Clinical Support 05/25/2024 2:30 PM EDT Clinical Support [facility] [address] [place] [address] [place] [phone] Shelby Denson, [facility] [address] [place] [address] [facility] Start: 05-19-2024 End: 05-19-2024 Patient encounter procedure 05/19/2024 12:30 PM EDT Office Visit [facility] Internal Medicine - Family Medicine [address] [place] [facility] [place] [phone] Cris Singh, [address] [place] [address] [facility] Internal Medicine - Family Medicine [...] EDT Procedure Visit [facility] [address] [place] [address] Deanna Mejia DO [address] [place] [address] [address] [facility] [address] Comment on above: Arrived Start: 04-03-2024 COVID-19 Vaccine ( season) COVID-19 Vaccine ( season) [facility] Start: 04-03-2024 COVID-19 Vaccine ( season) COVID-19 Vaccine ( season) [facility] Start: 04-03-2024 Influenza vaccination [facility] Start: 2016 Administration of varicella zoster vaccine Zoster (Shingles) Vaccine (1 of 2) [facility] Start: 1985 DTaP,Tdap and Td Vac cines (1 - Tdap) DTaP,Tdap and Td Vaccines (1 - Tdap) [facility] Start: 1966 Screening for malign ant neoplasm of colon [facility] Start: 1966 Tobacco Counseling Tobacco Counselin g [facility] Payers Date Payer Category Payer Self-pay [id number] 2024 Medicaid [id number] 2024 Unknown [id number] 2023 [facility] BCBS [id number] 2023 [facility] ld Managed Care - Other ANTHEM [id number]. [id number] 2023 Unknown [id number]. 1.13.693.2. 7.3.250460.315 2023 Unknown [id number] 2022 Medicaid [facility] AID [id number] 2020 Medicaid [id number]. [id number] 2020 Private Health Insurance [facility] MEDICAID [id number] 2020 Medicaid [id number] 1966 Unknown [id number] 2.16.840.1.343259.3.579.2. 593 1966 Unknown [id number] 2.16.840.1.463311.3.579.2. 593 1966 Unknown [id number] 2.16.840.1.803452.3.579.2. 1286 1966 Unknown [id number] 2.16.840.1.595258.3.579.2. 128 1966 Unknown [id number] 2.16.840.1.022919.3.579.2. 128 1966 Unknown [id number] 2.16840.1.335834.3.579.2. 1285 1966 Unknown [id number] 2.16840.1.092877.3.579.2. 1285 1966 Unknown [id number] 2.16840.1.726199.3.579.2. 1285 1966 Unknown [id number] 2.840.1.425897.3.579.2. 1285 1966 Unknown [id number] 2.16840.1.436694.3.579.2. 1285 1966 Unknown [id number] 2.16840.1.043142.3.579.2. 9 1966 Unknown [id number] 2.16840.1.445761.3.579.2. 1258 1966 Unknown [id number] 2.16840.1.822225.3.579.2. 1258 1966 Unknown [id number] 2.16840.1.646018.3.579.2. 1258 1966 Unknown [id number] 2.16840.1.123410.3.579.2. 1258 1966 Unknown [id number] 2.16.840.1.360727.3.579.2. 1258 1966 Unknown [id number] 2.16840.1.101193.3.579.2. 1259 1966 Unknown [id number] 2..840.1.508722.3.579.2. 1259 1966 Unknown [id number] 2.16.840.1.649109.3.579.2. 1259 1959 Self-pay [id number] 1959 Unknown [id number] Unknown [id number] .16.840.1.723673.3.579.2. 531 Social History Date Type Detail Facility Start: 08-20-2020 Tobacco smoking stat us [facility] Smoker (finding) [facility] Start: 1965 Sex Assigned At Male [facility] Start: 12-07-2023 End: 01-18-2024 Tobacco smoking status [facility] Smokes tobacco daily [facility] History of tobacco use Cigarette Smoker [facility] Start: 12-07-2023 End: 01-18-2024 Tobacco use and exposure Smokeless tobacco non-user [facility] Start: 03-08-2024 End: 06-01-2024 Alcoholic beverage intake Current drinker of alcohol (finding) [facility] Start: 10-16-2020 End: 03-08-2024 History of Social function [facility] Start: 10-16-2020 End: 03-08-2024 Tobacco use panel [facility] Start: 1965 Sex assigned at Not on file [facility] Start: 04-28-2024 End: 05-19-2024 Alcoholic beverage intake Ex-drinker (finding) [facility] Do you belong to any clubs or organizations such as shinto groups, unions, fraternal or athletic groups, or school groups? No [facility] Are you now , , , , never or living with a partner? Never [facility] How hard is it for y ou to pay for the very basics like food, housing, medical care, and heating Somewhat hard [facility] Adolescent depressio n screening assessment 0 [facility] Start: 04-28-2024 Alcohol Comment once a while [facility] Start: 03-08-2015 Sex Male (finding) [facility] Goals Date Patient Goal Desired Activity [...] in his chart documented in this encounter [facility] 06-16-2024 Telephone encounter Note Patient needs a letter stating that you have been treating him and he is unable to work for child support. [facility] 06-16-2024 Telephone encounter Note Message noted. A letter is in his chart [facility] 06-01-2024 History of Presen t illness Narrative [...] of colon with perforation 08/21/2022 Essential hypertension ([facility]/HCC) 08/21/2022 Fall 06/19/2022 History of colostomy reversal 10/16/2020 Hyperglycemia 08/21/2022 Hyperlipidemia ([facility]) 08/21/2022 Hypokalemia 08/21/2022 Multiple fractures of ribs, left side, initial encounter for closed fracture 06/29/2022 Oropharyngeal dysphagia 06/29/2022 Overweight 08/21/2022 Perforated diverticulum 04/23/2020 Purpura ([facility]) 08/21/2022 TBI (traumatic brain injury) ([facility]) 02/15/2024 Urinary retention 06/29/2022 Well adult health check 08/21/2022 Resolved Ambulatory Problems Diagnosis Date Noted No Resolved Ambulatory Problems Past Medical History: Diagnosis Date B12 deficiency Cataracts, bilateral Glaucoma ([facility]) Meniere's disease Smoker Traumatic brain injury ([facility]) Past Surgical History: Procedure Laterality Date CT [...] facilitate vestibular rehab documented in this encounter [facility] 05-25-2024 History of Presen t illness [...] Type A tympanogram documented in this encounter [facility] 05-19-2024 History of Presen t illness [...] know what his pressures are. Sees the furniture removalist's assistant in several weeks for recheck. As cataracts [...] Testing No results found. Cris Singh DO., [facility] Office: [phone] documented in this encounter [facility] 05-16-2024 Telephone encounter Note Reviewed, thank you. [facility] 05-16-2024 Miscellaneous Notes Reviewed, thank you. Note is routed to you and in media Notes have been requested. Should be in faxes. Can you please request the neurosurgery note for me to review? The patient was seen by Frandy Caba. documented in this encounter [facility] 05-16-2024 Telephone encounter Note Note is routed to you and in media [facility] 05-13-2024 Telephone encounter Note Notes have been requested. Should be in faxes. [facility] 05-12-2024 Telephone encounter Note Can you please request the neurosurgery note for me to review? The patient was seen by Frandy Caba. [facility] 05-12-2024 History of Presen t illness Narrative Images from the original note were not included. Rob Montes De Oca NP Chief Complaint Patient presents with Numbness Extremity Weakness Subjective Maxwlel Harris is a 58 y.o. male. HPI The patient presents today for follow up. He had labs and an EMG of the right upper extremity completed for review. He does not drive and receives transportation via his health insurance, [employer]. The patient was evaluated by Dr. Singh ([facility] internal medicine) 04/28/2024. He was evaluated by Dr. Caba (neurosurgery) on 05/09/[address]24. [address] Caba referred him to [facility] pain management, and he has a new [...] wrist extensors , wrist flexor , and vice president of compliance strength 4+/5. May be a component of giveway weakness. Reduced range of motion in the right deltoid - patient states this is chronic. LUE strength deltoid , biceps , triceps , wrist extensors , wrist flexor , and vice president of compliance strength 5/5. RLE strength iliopsoas, quadriceps, tibialis [...] reflex 0. LLE Knee reflex 2+. Coordination: Hxsgeh-io-lxgm testing normal. Rapid alternating movements are normal. Gait: Appears antalgic. Review and summary of old records: Orthostatic vital signs at [facility] on 05/12/2024: Negative Laying - blood pressure 120/68, heart rate 72 beats/min Sitting - blood pressure 124/76, heart rate 72 beats/min Standing for 3 minutes - blood pressure 122/84, heart rate 94 beats/min EMG of the right upper extremity at [facility] on 05/10/2024: A remote C8 motor radiculopathy [...] of the lumbar spine without contrast at [facility] on 02/18/2024: At L1-L2, there is a broad-based disc bulge with a left subarticular disc protrusion. There is mild spinal canal stenosis. There is moderate left and moderate right neural foraminal narrowing. At L3-L4, there is a broad-based disc bulge with facet hypertrophy and endplate osteophyte formation. There is [id number] bilateral neural foraminal narrowing with moderate spinal [...] worsening symptoms. Rob Montes De Oca NP [facility] Advanced Neurology documented in this encounter [facility] 05-12-2024 Instructions Rob Montes De Oca NP - 05/12/2024 2:40 PM EDT - MRI of the cervical spine - Referral to orthopedic surgery documented in this encounter [facility] 05-10-2024 History of Presen t illness Narrative Images from the original note were not included. Reason for Appointment: EMG Patient: Maxwell Harris : 1965 EMG Computer: [employer] Referring Physician: Rob Montes De Oca CNP EMG: MONCHO planning manager: Meliton Burnette RT(R) Office Location: [place] Reason for EMG: c/o pain in right shoulder. No hx of DM. Not on blood thinners Comments: Procedure was explained to the patient who expressed understanding. Patient appeared to have tolerated the test well despite some discomfort due to the nature of the test. documented in this encounter [facility] Evaluation note No assessment inform ation available [facility] Work Phone: Evaluation note Diagnosis Cervical radiculopathy- [...] Health SystemInstructionsNot on filedocumented in this encounter [facility] Summary Purpose Family History No Family History [...] section and content) DATE CREATED AUTHOR 11/23/2018 [facility] DATE CREATED AUTHOR AUTHOR'S ORGANIZ ATION 03/11/2019 [facility] DATE CREATED AUTHOR AUTHOR'S ORGANIZ ATION 12/09/2023 [facility] DATE CREATED AUTHOR AUTHOR'S ORGANIZ ATION 12/24/2023 [facility] DATE CREATED AUTHOR AUTHOR'S ORGANIZ ATION 02/25/2024 [facility] DATE CREATED AUTHOR AUTHOR'S ORGANIZ ATION 03/26/2024 [facility] DATE CREATED AUTHOR AUTHOR'S ORGANIZ ATION 05/22/2024 [facility] DATE CREATED AUTHOR AUTHOR'S ORGANIZ ATION 06/19/2024 [facility] Care Teams (unrecognized sec tion and content) Team Status: Active Member Role Status Dates NON STAFF Primary Care Provider Active Team Status: Inactive Member Role Status Dates NON STAFF Primary Care Provider Active Start: February 18, 2024 End: February 18, 2024 Deanna Mejia DO Attending Provider Active Start: February 18, 2024 End: February 18, 2024 Plasma Processing Technician Relationship Specialty Start Date End Date Cris Singh MD [address] [place] [address] PCP - General Internal Medicine 01/04/24 Plasma Processing Technician Relationship Specialty Start Date End Date Cris Singh MD [address] [place] [address] PCP - General Internal Medicine 01/04/24 Plasma Processing Technician Relationship Specialty Start Date End Date Cris Singh DO [address] [place] [address] PCP - General Internal Medicine 12/07/23 Plasma Processing Technician Relationship Specialty Start Date End Date Cris Singh DO [address] [place] [address] PCP - General Internal Medicine 12/07/23 Plasma Processing Technician Relationship Specialty Start Date End Date Cris Singh MD [address] [place] [address] PCP - General Internal Medicine 01/04/24 Plasma Processing Technician Relationship Specialty Start Date End Date Cris Singh MD [address] [place] [address] PCP - General Internal Medicine 01/04/24 Plasma Processing Technician Relationship Specialty Start Date End Date Cris Singh MD [address] [place] [address] PCP - General Internal Medicine 01/04/24 Plasma Processing Technician Relationship Specialty Start Date End Date Cris Singh DO [address] [place] [address] PCP - General Internal Medicine 12/07/23 Plasma Processing Technician Relationship Specialty Start Date End Date Cris Singh MD [address] [facility] [address] PCP - General Internal Medicine 01/04/24 Plasma Processing Technician Relationship Specialty Start Date End Date Cris Singh DO [address] [place] [address] PCP - General Internal Medicine 12/07/23 Plasma Processing Technician Relationship Specialty Start Date End Date Cris Singh DO [address] [place] [address] PCP - General Internal Medicine 12/07/23 Goals [...] BE BASED ON THE PRIMARY CLINICAL RECORDS. [facility]. provides no warranty or guarantee of the accuracy or completeness of information in this document.
[2024-07-01 18:16] VITALS: BP 186/88; PULSE 97; TEMP 37; O2SAT 97; BMI 24.4
--- NOTE | 2024-07-01 19:29 | XR_ITS ---
The [address] [address] Patient Name: BEE STARR MRN: [id number] date: 1965 Sex: M Assigned Patient Location: ER Current Patient Location: ER Accession/Order Number: [id number] Exam Date: 07/01/2024 19:42 Report Date: 07/01/2024 20:54 At the request of: VINCENT RAE Procedure: XR acute abdomen series EXAM: ACUTE ABDOMINAL SERIES HISTORY: Abdominal pain TECHNIQUE: A single view of the chest and 2 views of the abdomen and pelvis are submitted for review. COMPARISON: None. FINDINGS: CHEST X-RAY: The lungs are adequately expanded. There is no acute infiltrate. There is no evidence for effusion. The cardiomediastinal silhouette measures within normal limits. Pulmonary vascularity is unremarkable. Osseous structures demonstrate old left-sided rib fractures. ABDOMEN: Non obstructive bowel gas pattern. Limited evaluation for free air due to supine technique. There are no abnormal calcifications. However, evaluation of the renal shadows is limited due to overlying bowel gas. No portal venous air. Osseous structures demonstrate degenerative change. Moderate retention of stool. XR/XR acute abdomen series IMPRESSION: CHEST X-RAY: No plain film evidence for acute cardiopulmonary disease. ABDOMEN: 1. Nonobstructive bowel gas pattern. 2. Moderate retention of stool. Electronically authenticated by: CAROL DEL ROSARIO Date: 07/01/2024 20:54
--- NOTE | 2024-07-01 19:32 | ED.GENADUL1 ---
HPI HPI - General Adult General Chief complaint: Back Pain/Injury Stated complaint: Internal issues Time Seen by Provider: 07/01/24 19:14 Source: patient Mode of arrival: walk-in History of Present Illness HPI narrative: Pt with multiple complaints. Two chief complaints tonight: 1) no BM for 2 days & 2) acute exacerbation of chronic neck and back pain. Pt with history of chronic neck and back pain plus associated tingling of the upper extremities, for which he sees Neurosurgery and Pain Management. He had a cervical MRI at [facility] on 06/23/24 that revealed several areas of spinal stenosis, canal narrowing and disc bulge with DDD. He saw Pain Management on 06/27/24, was prescribed Guilford and was instructed to see Neurosurgeon for follow up. He sees Dr Frandy Caba at [facility] and has an appointment on 07/11 at 3pm. The patient said that his PCP told him to come to the ER because of the MRI report but the MRI results do not appear to show instability and the patient is not suffering from any new symptoms other than the constipation, which started after he switched from tramadol to Gu[place]. No fever or chills. No change in diet, nausea or vomiting. He is passing flatus. He told us that he urinary stream has also been irregular. No blood in stool. No kidney stones or flank pain. Pain is localized to the midline neck and midline upper, mid and lower back and is worse with movement of the spine. No new injury. Related Data Home Medications ?Medication ?Instructions ?Recorded ?Confirmed atorvastatin 40 mg tablet 40 mg PO DAILY 05/16/24 07/01/24 cyanocobalamin (vitamin B-12) 2,000 mcg PO DAILY 05/16/24 07/01/24 1,000 mcg tablet (Vitamin B-12) meloxicam 15 mg tablet 15 mg PO DAILY 05/16/24 07/01/24 topiramate 50 mg tablet 50 mg PO BID 05/16/24 07/01/24 tramadol 50 mg tablet 50 mg PO Q12H 05/16/24 07/01/24 Previous Rx's ?Medication ?Instructions ?Recorded hydrocodone 5 mg-acetaminophen 325 1 tab PO BID PRN pain #60 tabs 06/27/24 mg tablet pregabalin 75 mg capsule 75 mg PO TID #90 caps 06/27/24 methylprednisolone 4 mg tablets in 4 mg PO DAILY #21 ea 07/01/24 a dose pack (Medrol (Nguyễn)) polyethylene glycol 3350 17 17 g PO DAILY 4 days #68 grams 07/01/24 gram/dose oral powder (Miralax) Allergies Allergy/AdvReac Type Severity Reaction Status Date / Time No Known Drug Allergies Allergy Verified 05/16/24 16:04 Opioid HPI Opioid Management Most Recent Opioid Data: No Data to Display PFSH PFSH Social History Little interest or pleasure in doing things: not at all Feeling down, depressed, or hopeless: not at all Exam Narrative Exam Narrative: Vital signs reviewed. He is afebrile and without hypotension General: Alert, no acute distress but complains of pain, patient laying in the bed when I walk in the room Skin: warm, intact, no pallor noted Head: Normocephalic, atraumatic Eye: Normal conjunctiva Respiratory: No acute distress Abdomen: Normal bowel sounds, soft, nontender, no masses detected. No rebound, guarding, or rigidity noted. Back: inspection of the back shows no obvious deformity, no swelling, no ecchymosis, contusion, abrasion, swelling, erythema, fluctuance or induration. Tenderness noted to midline thoracolumbar spine. Straight leg raise on left is positive. Straight leg raise on right is positive. No CVA tenderness noted bilaterally. Musculoskeletal: No deformity noted to bilateral lower extremities. no cyanosis or mottling noted. normal pulses at DP and PT 2+ bilaterally and symmetrically. Normal 5/5 strength at ankles with dorsiflexion and plantar flexion. Patient is able to ambulate to the bathroom after exam. Normal sensation noted to both lower extremities. Neurological: AAOx4, normal sensory and motor observed. L5-S1 reflexes intact symmetrically. DTR 2+ at patellar bilaterally. Psychiatric: Cooperative and interactive. Constitutional Vital Signs, click to edit/add: Last Vital Signs Temp 98.6 F 07/01/24 18:16 Pulse 97 H 07/01/24 18:16 Resp 18 07/01/24 18:16 BP 186/88 H 07/01/24 18:16 Pulse Ox 97 07/01/24 18:16 O2 Del Method Room Air 07/01/24 18:16 Course Vital Signs Vital signs: Vital Signs Temperature 98.6 F 07/01/24 18:16 Pulse Rate 97 H 07/01/24 18:16 Respiratory Rate 18 07/01/24 18:16 Blood Pressure 186/88 H 07/01/24 18:16 Pulse Oximetry 97 07/01/24 18:16 Oxygen Delivery Method Room Air 07/01/24 18:16 Temperature 98.6 F 07/01/24 18:16 Pulse Rate 97 H 07/01/24 18:16 Respiratory Rate 18 07/01/24 18:16 Blood Pressure 186/88 H 07/01/24 18:16 Pulse Oximetry 97 07/01/24 18:16 Oxygen Delivery Method Room Air 07/01/24 18:16 Medical Decision Making MDM Narrative Medical decision making narrative: Pt with chronic neck and back pain, who sees Pain management and Neurosurgeon Dr Caba (Neurosurgery) at [facility], presents with continued neck and back pain. He had a cervical MRI on 06/23/24 and then saw pain management on 06/27/24. he was switched from tramadol to [place] and developed some constipation x48 hours. He said that he is also dribbling some urine at the end of his stream at times . No additional trauma since the MRI. 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 I reviewed the MRI report - see below. His exam does not reveal any focal neurological deficit - no findings suggesting acute cauda equina or emergently dangerous cervical spinal process, although he clearly has chronic degenerative cervical spine changes. He was able to give us a urine sample. Blood was also drawn and sent for testing. He was given IV Solu-medrol and IV Toradol for his pain. He was also sent for xrays of the abdomen. Results - Abd XR reveals constipation without obstruction. WBC elevated at 16k - sent for CT Lspine - no evidence of spinal infection. Pt informed of results. Discharged with prescriptions for MiraLax and medrol dose nguyễn sent to [facility] in [place] at his request. instructed to keep his appt with neurosurgery and PCP plus get MRI next week. Medical Records Medical records reviewed: Yes I reviewed the patient's medical records Medical records narrative: The [address] [address] Magnetic Resonance Report Signed Patient: BEE STARR MR#: [id number] : 1965 Acct:[id number] Age/Sex: 58 / M ADM Date: 06/23/24 Loc: MRI Attending Dr: Savita Montes De Oca NP Ordering Physician: Savita Montes De Oca NP Date of Service: 06/23/24 Procedure(s): MR cervical spine wo/w con Accession Number(s): [id number] cc: Savita Montes De Oca NP; CRIS SINGH [place] [id number] Patient Name: BEE STARR MRN: [id number] date: 1965 Sex: M Assigned Patient Location: MRI Current Patient Location: Accession/Order Number: [id number] Exam Date: 06/23/2024 12:30 Report Date: 06/24/2024 09:22 At the request of: SAVITA MONTES DE OCA Procedure: MR cervical spine wo/w con EXAMINATION: MR cervical spine wo/w con HISTORY: Weakness Right Upper Extremity COMPARISON: No relevant comparison available. TECHNIQUE: A variety of imaging planes and parameters were utilized for visualization of suspected pathology without and/or with intravenous Dotarem contrast based on examination type. FINDINGS: CRANIOCERVICAL AREA: Normal foramen magnum with no Chiari malformation. PARASPINAL AREA: Normal with no visible mass. BONES: Minimal grade 1 retrolisthesis of C3 on 4. Normal height of the vertebral bodies; no convincing fracture or bone lesion. CORD: Marked flattening and compression posterior to C3-4-5. No abnormal signal Intensity. CERVICAL DISC LEVELS: C2-C3: Mild right foramen narrowing secondary to uncovertebral joint spurring. No significant narrowing of the central canal or left foramen. No appreciable disc bulging or significant facet arthropathy. C3-C4: Marked central canal and bilateral foramen narrowing. Moderate diffuse disc bulging without disc height reduction. Uncovertebral joint spurring bilaterally. Mild right, moderate-marked left degenerative facet arthropathy. C4-C5: Moderate central canal narrowing with slight flattening of the cord. Moderate-marked right foramen narrowing, marked left foramen narrowing. Mild diffuse disc bulging without significant disc height reduction. Uncovertebral joint spurring. Mild right, moderate-marked left degenerative facet arthropathy. C5-C6: No significant central canal narrowing. Moderate right, marked left foramen narrowing. Mild diffuse disc bulging without disc height reduction. Mild degenerative facet arthropathy, left greater than right. C6-C7: No significant central canal narrowing. Moderate-marked foramen narrowing bilaterally. Mild diffuse disc bulging and moderate disc height reduction. Uncovertebral joint spurring and mild degenerative facet arthropathy bilaterally. C7-T1:. Mild central canal narrowing. Moderate marked foramen narrowing bilaterally. Mild diffuse disc bulging without disc height reduction. Uncovertebral joint spurring and degenerative facet arthropathy. MR/MR cervical spine wo/w con IMPRESSION: 1. Marked central canal narrowing posterior to C3-4 extending to C4-5. 2. Multilevel marked and moderate-marked foramen narrowing. 3. Multilevel degenerative disc disease and degenerative facet arthropathy accounting for above findings. Electronically authenticated by: SANDER PARSONS Date: 06/24/2024 09:22 Dictated By: Sander Parsons M.D. Signed By: 06/24/24924 DD/ 1 TD/TT: Debit Agent: Lab Data Lab results reviewed: Yes I reviewed the patient's lab results Labs: Lab Results 07/01/24 07/01/24 Range/Units 19:04 19:35 WBC 16.3 H (4.0-11.0) 10^3/uL RBC 4.77 (4.70-6.10) 10^6/uL Hgb 15.9 (14.0-18.0) g/dL Hct 46.8 (42.0-54.0) % MCV 98.1 H (80.0-94.0) fL MCH 33.3 (25.9-34.0) pg MCHC 34.0 (29.9-35.2) g/dL RDW 13.5 (11.0-15.0) % Plt Count 190 (150-450) 10^3/uL MPV 10.6 (9.5-13.5) fL Seg Neuts % (Manual) 78.0 H (43.0-75.0) Lymphocytes % (Manual) 12.0 L (20.5-60.0) % Monocytes % (Manual) 9.0 (1.7-12.0) % Eosinophils % (Manual) 1.0 (0.9-7.0) % Basophils % (Manual) 0.0 L (0.2-2.0) % Neutrophils # (Manual) 12.71 H (1.4-6.5) 10^3/uL Lymphocytes # (Manual) 1.95 (1.20-3.80) 10^3/uL Monocytes # (Manual) 1.46 H (0.30-0.80) 10^3/uL Eosinophils # (Manual) 0.16 (0.00-0.70) 10^3/uL Basophils # (Manual) 0.00 (0.00-0.10) 10^3/uL Sodium 140 (136-145) mmol/L Potassium 4.2 (3.5-5.1) mmol/L Chloride 107 (98-107) mmol/L Carbon Dioxide 24.8 (21.0-32.0) mmol/L Anion Gap 12.4 BUN 18.0 (7.0-18.0) mg/dL Creatinine 1.06 (0.70-1.30) mg/dL Est GFR ( Amer) >60 (>=60 mL/min/1.73m^2) Est GFR (Non-Af Amer) >60 (>=60 mL/min/1.73m^2) BUN/Creatinine Ratio 17.0 Glucose 94 (74-106) mg/dL Calcium 9.4 (8.5-10.1) mg/dL Total Bilirubin 0.5 (0.2-1.0) mg/dL AST 23 (15-37) U/L ALT 24 (16-63) U/L Alkaline Phosphatase 80 (46-116) U/L Total Protein 7.2 (6.4-8.2) g/dL Albumin 4.0 (3.4-5.0) g/dL Globulin 3.2 g/dL Albumin/Globulin Ratio 1.3 Urine Color Lt. yellow (YELLOW) Urine Clarity Clear (CLEAR) Urine pH 6.5 (5.0-9.0) Ur Specific [place] 1.010 (1.005-1.025) Urine Protein Negative (NEG/TRACE) mg/dL Urine Glucose (UA) Negative (NEGATIVE) mg/dL Urine Ketones Negative (NEGATIVE) mg/dL Urine Occult Blood Negative (NEGATIVE) Urine Nitrite Negative (NEGATIVE) Urine Bilirubin Negative (NEGATIVE) Urine Urobilinogen 0.2 (0.2-1.0) EU/dL Ur Leukocyte Esterase Negative (NEGATIVE) Imaging Data XR abd, CT LSpine: Radiologist's impression: ITS Impressions Chest/Abdomen X-ray 07/01/24 19:29 IMPRESSION: CHEST X-RAY: No plain film evidence for acute cardiopulmonary disease. ABDOMEN: 1. Nonobstructive bowel gas pattern. 2. Moderate retention of stool. Electronically authenticated by: CAROL DEL ROSARIO Date: 07/01/2024 20:[address] 07/01/24 20:44 IMPRESSION: 1. No acute compression fractures in the lumbar spine. 2. Minimal grade 1 retrolisthesis from L3 through S1. 3. Multilevel degenerative disc disease affecting all levels of the lumbar spine as discussed above most severe at L5-S1. Electronically authenticated by: PERRY CAM Date: 07/01/2024 22:16 Discharge Plan Discharge Chief Complaint: Back Pain/Injury Clinical Impression: Constipation, Cervical stenosis of spinal canal, Neck pain, chronic, Acute on chronic back pain Patient Disposition: Home, Self-Care Time of Disposition Decision: 22:29 Prescriptions / Home Meds: New methylprednisolone [Medrol (Nguyễn)] 4 mg tablets,dose pack 4 mg PO DAILY Qty: 21 0RF polyethylene glycol 3350 [Miralax] 17 gram/dose powder 17 g PO DAILY 4 Days Qty: 68 0RF No Action hydrocodone-acetaminophen 5-325 mg tablet 1 tab PO BID PRN (Reason: pain) Qty: 60 0RF pregabalin 75 mg capsule 75 mg PO TID Qty: 90 0RF meloxicam 15 mg tablet 15 mg PO DAILY topiramate 50 mg tablet 50 mg PO BID atorvastatin 40 mg tablet 40 mg PO DAILY cyanocobalamin (vitamin B-12) [Vitamin B-12] 1,000 mcg tablet 2,000 mcg PO DAILY tramadol 50 mg tablet 50 mg PO Q12H Print Language: Portuguese Instructions: Constipation (ED), Chronic Back Pain (DC), Chronic Neck Pain (DC) Referrals: CRIS SINGH [Primary Care Provider] - 1 week
[2024-07-01 19:35] LABS: Hematocrit 46.8 % (42.0-54.0); Hemoglobin 15.9 g/dL (14.0-18.0); Mean Corpuscular Hemoglobin 33.3 pg (25.9-34.0); Mean Corpuscular Volume 98.1 fL (80.0-94.0); Mean Platelet Volume 10.6 fL (9.5-13.5); Platelet Count 190 10^3/uL (150-450); Red Blood Count 4.77 10^6/uL (4.70-6.10); Red Cell Distribution Width 13.5 % (11.0-15.0); White Blood Count 16.3 10^3/uL (4.0-11.0)
[2024-07-01] MEDS: KETOROLAC TROMETHAMINE 30 MG/ML VIAL IVP (19:41)
[2024-07-01] MEDS: METHYLPREDNISOLONE SOD SUCC PF 125 MG/2 ML VIAL IVP (19:41)
[2024-07-01 19:43] LABS: Bilirubin Urine NEGATIVE (NEGATIVE); Blood Urine NEGATIVE (NEGATIVE); Clarity Urine CLEAR (CLEAR); Color Urine LT. YELLOW (YELLOW); Glucose Urine UA NEGATIVE (NEGATIVE); Ketones Urine NEGATIVE (NEGATIVE); Leukocyte Esterase Urine NEGATIVE (NEGATIVE); Nitrite Urine NEGATIVE (NEGATIVE); Protein Urine NEGATIVE (NEG/TRACE); Urobilinogen Urine 0.2 EU/dL (0.2-1.0); pH Urine 6.5 (5.0-9.0)
[2024-07-01 19:46] LABS: Urine Microscopic Indicated NO
[2024-07-01 19:47] LABS: Alanine Aminotransferase 24 U/L (16-63); Albumin Globulin Ratio 1.3; Alkaline Phosphatase 80 U/L (46-116); Anion Gap 12.4; Aspartate Amino Transferase 23 U/L (15-37); Bilirubin Total 0.5 mg/dL (0.2-1.0); Calcium 9.4 mg/dL (8.5-10.1); Carbon Dioxide 24.8 mmol/L (21.0-32.0); Chloride 107 mmol/L (98-107); Estimated GFR (African America >60 (>=60 mL/min/1.73m^2); Estimated GFR (Non-African Ame >60 (>=60 mL/min/1.73m^2); Globulin 3.2 g/dL; Glucose 94 mg/dL (74-106); Potassium 4.2 mmol/L (3.5-5.1); Sodium 140 mmol/L (136-145); Total Protein 7.2 g/dL (6.4-8.2)
[2024-07-01 19:50] LABS: Segmented Neut Absolute Manual 12.71 10^3/uL (1.4-6.5)
[2024-07-01 19:51] LABS: Eosinophils Absolute Manual 0.16 10^3/uL (0.00-0.70); Lymphocytes Absolute Manual 1.95 10^3/uL (1.20-3.80); Monocytes Absolute Manual 1.46 10^3/uL (0.30-0.80)
--- NOTE | 2024-07-01 20:44 | CT_ITS ---
The [address] [address] Patient Name: BEE STARR MRN: [id number] date: 1965 Sex: M Assigned Patient Location: ER Current Patient Location: ER Accession/Order Number: [id number] Exam Date: 07/01/2024 21:06 Report Date: 07/01/2024 22:16 At the request of: VINCENT RAE Procedure: CT lumbar spine w con EXAMINATION:CT lumbar spine w con HISTORY:low back pain, leukocytosis COMPARISON:None TECHNIQUE: Multiple thin section transaxial slices were acquired through the lumbar spine without contrast. Coronal and sagittal reconstructed images were reviewed. FINDINGS: Minimal grade 1 retrolisthesis is present in L3-L4, L4-L5 and minimally in the L5-S1 levels. There is straightening of the normal lordotic curvature of the lumbar spine. No acute compression fractures are noted. There is mild to moderate multilevel degenerative disc disease affecting L1-L5. There is moderate to severe degenerative disc disease at L5-S1. There is a moderate degree of bilateral bony neural foraminal stenosis in the L3-S1 levels. There is mild bony neural foraminal stenosis in the L1-L3. Mild multilevel bony canal stenosis is present. There are no acute osseous abnormalities of the bony pelvis. Paraspinal soft tissues are within normal limits. There are nonobstructive bilateral intrarenal calculi present in the visualized kidneys. CT/CT lumbar spine w con IMPRESSION: 1. No acute compression fractures in the lumbar spine. 2. Minimal grade 1 retrolisthesis from L3 through S1. 3. Multilevel degenerative disc disease affecting all levels of the lumbar spine as discussed above most severe at L5-S1. Electronically authenticated by: PERRY CAM Date: 07/01/2024 22:16
[2024-07-01 22:36] VITALS: BP 138/85; PULSE 66; O2SAT 99
[2024-07-01] MEDS: POLYETHYLENE GLYCOL 3350 238 GM POWDER 17 GM PO (23:06)
== END 2024-07-01 22:40 | disposition home or self-care (01) ==
PROVIDERS: Emergency Provider Emergency Medicine; PCP Internal Medicine
DX: K59.00 Constipation, unspecified (principal); M50.30 Other cervical disc degeneration, unspecified cervical region; M48.02 Spinal stenosis, cervical region; M51.379 Other intervertebral disc degeneration, lumbosacral region without mention of lumbar back pain or lower extremity pain; G89.29 Other chronic pain; M54.9 Dorsalgia, unspecified
CPT/HCPCS: 36415; 72132; 74022; 80053; 81003; 85007; 85027; 96374; 96375; 99285; J1885; J2919; Q9967

== ENCOUNTER 2024-07-05 14:06 | Outpatient (OUT) | payer BC, OTHER, SELFPAY ==
--- NOTE | 2024-07-05 14:10 | MR_ITS ---
[address] [address] Patient Name: BEE STARR MRN: [facility]:[id number] date: 1965 Sex: M Assigned Patient Location: MRI Current Patient Location: MRI Accession/Order Number: [id number] Exam Date: 07/05/2024 14:23 Report Date: 07/06/2024 18:06 At the request of: CHEPE BARFIELD Procedure: MR lumbar spine wo con EXAMINATION: MR lumbar spine wo con HISTORY: Lumbar stenosis Chronic back pain, bilateral leg pain, weakness. COMPARISON: CT lumbar spine 07/01/2024 TECHNIQUE: Multiplanar, multisequence MRI images of the lumbar spine without intravenous contrast. FINDINGS: There is straightening of the lumbar spine. There is degenerative grade 1 retrolisthesis at L4-L5 and L5-S1 secondary to facet arthropathy. Remaining vertebral bodies are anatomically aligned. No compression fractures. Moderate disc space narrowing throughout the lumbar spine. The bone marrow is diffusely inhomogeneous, though without focal concerning lesions. This could be from osteopenia or red marrow conversion. Conus medullaris terminates at T12. No abnormal signal in the distal spinal cord and conus. L5-S1: Diffuse disc osteophyte complex with a superimposed right subarticular disc extrusion with inferior migration. Moderate facet arthropathy and ligamentum flavum hypertrophy. Severe right lateral recess stenosis and displacement of the descending right S1 nerve root and moderate to severe left lateral recess stenosis. Severe bilateral foraminal stenosis. L4-L5: Disc bulge and moderate facet arthropathy with ligamentum flavum hypertrophy with moderate spinal canal and moderate bilateral foraminal stenosis. L3-L4: Disc bulge and mild facet arthropathy. No spinal canal stenosis. Mild to moderate bilateral foraminal stenosis. L2-L3: Disc bulge. Mild spinal canal stenosis. Mild bilateral foraminal stenosis. L1-L2: Disc bulge and moderate facet arthropathy. No spinal canal stenosis. Mild right foraminal stenosis. Left foraminal disc extrusion with asymmetric moderate to severe left foraminal stenosis. T12-L1: Disc bulge. No spinal canal stenosis. Mild bilateral foraminal stenosis. MR/MR lumbar spine wo con IMPRESSION: 1. There is moderate multilevel degenerative disc disease and facet joint arthropathy in the lumbar spine. 2. At L5-S1, there is a right subarticular disc extrusion. Severe right lateral recess stenosis and mass effect on the right S1 nerve root. Severe bilateral foraminal stenosis. 3. Additional levels of stenosis in the remaining lumbar spine as described. Electronically authenticated by: KINZA JOHNSON Date: 07/06/2024 18:06
== END 2024-07-05 14:07 | disposition home or self-care (01) ==
LOC: MRI 14:06
PROVIDERS: PCP Internal Medicine; Visit Provider Anesthesiology
DX: M48.062 Spinal stenosis, lumbar region with neurogenic claudication (principal); M51.369 Other intervertebral disc degeneration, lumbar region without mention of lumbar back pain or lower extremity pain; M51.27 Other intervertebral disc displacement, lumbosacral region
CPT/HCPCS: 72148

== ENCOUNTER 2024-07-14 13:30 | Outpatient (OUT) | payer BC, OTHER, SELFPAY ==
--- OUTSIDE RECORDS SUMMARY | 2024-07-14 13:49 | XMS_ITS | CCD ---
Author Organization [facility] Care Team Providers Care Figure Clerk Name Role Phone Cris Cruz Attending Unavailable ROXANE MITCHELL Admitting Unavailable ROXANE MITCHELL Attending Unavailable REQUEST, NONE LISTED Primary Care Unavailable VINCENT RAE Admitting Unavailable VINCENT RAE Attending Unavailable VINCENT RAE Consulting Unavailable CRIS SINGH Referring Unavailable YUHAS, CRIS Plummer Primary Care Unavailable CRIS SINGH Attending Unavailable CRIS SINGH Referring Unavailable YUHOLGERS, CRIS Plummer Primary Care Unavailable CRIS SINGH Attending Unavailable CRIS SINGH Referring Unavailable SUSANS, CRIS Plummer Primary Care Unavailable NON STAFF Primary Care Provider UnavailDO Deanna Payne Attending Provider [phone] NON STAFF Primary Care Unavailable Deanna Mejia Attending Unavailab Deanna Espinal Admitting UnavailCris Justin MD Primary Care Provider [phone] Cris Singh DO Primary Care Provider [phone] CRIS SINGH Attending Unavailable FERNIE HOLMAN Referring UnavailCRIS Bowles Primary Care Unavailable CRIS SINGH Attending Unavailable RCIS SINGH Referring Unavailable YUHAS, CRIS Plummer Primary Care Unavailable CRIS SINGH Attending Unavailable CRIS SINGH Referring Unavailable YUHAS, CRIS Plummer Primary Care Unavailable CRIS SINGH Attending Unavailable FRANCISCO, CRIS Plummer Referring Unavailable CASHHAS, CRIS L Primary Care Unavailable FRANCISCO, CRIS Plummer Attending Unavailable FRANCISCO, CRIS Plummer Referring Unavailable YUHAS, CRIS L Primary Care Unavailable DEANNA MEJIA Attending Unavailable CRIS SINGH Referring Unavailable DEANNA MEJIA Referring Unavailable DEANNA MEJIA Attending Unavailable ROB MONTES DE OCA Attending Unavailable DEANNA MEJIA Attending Unavailable ROB MONTES DE OCA Attending Unavailable SHELBY DENSON Attending Unavailable CRIS SINGH Referring Unavailable ADDIE GARAY Attending Unavailable ADDIE GARAY Referring Unavailable Dane CLARK, Lalitha Arango Attending Unavailable Dane CLARK, Lalitha Arango Attending Unavailable Medications Current Medications Medication Drug Class(es) [...] (Therapy completed) atorvastatin 40 mg oral tablet (18 sources) HMG-CoA Reductase Inhibitor Start: 12-29-2023 take [...] (Therapy completed) latanoprost 0.05 mg/ml ophthalmic solution (17 sources) Prostaglandin Analog Start: 03-08-2024 take 1 [...] 2020 1:00am meloxicam 15 mg oral tablet (18 sources) Nonsteroidal Anti-inflammatory Drug Start: 12-29-2023 End: 05-11-2024 take 1 tablet by mouth in the morning meloxicam (MOBIC) 15 mg tablet Indications: Localized osteoarthritis of lumbar spine TAKE 1 TABLET (15 MG TOTAL) BY MOUTH IN THE MORNING 30 tablet 1 05/11/2024 Active pregabalin 50 mg oral capsule (7 sources) Start: 05-16-2024 pregabalin (LYRICA) 50 mg [...] 2020 1:00am topiramate 50 mg oral tablet (17 sources) Start: 07-03-2024 take 1 tablet by mouth in the morning, then take 1 tablet by mouth at bedtime topiramate (TOPAMAX) 50 mg tablet Indications: Intractable chronic post-traumatic headache Take 1 tablet (50 mg total) by mouth in the morning and 1 tablet (50 mg total) before bedtime. 180 tablet 07/03/2024 Active Start: 04-29-2024 End: 07-03-2024 take 1 tablet by mouth in the morning, then take 1 tablet by mouth at bedtime topiramate (TOPAMAX) 50 mg tablet Indications: Intractable chronic post-traumatic headache Take 1 tablet (50 mg total) by mouth in the morning and 1 tablet (50 mg total) before bedtime. 180 tablet 06/13/2024 07/03/2024 Discontinued traMADol hydrochloride 50 mg oral tablet (14 sources) Opioid Agonist Start: 06-18-2024 take 1 [...] adjustment) vitamin b12 1 mg oral tablet (17 sources) Vitamin B12 Start: 12-08-2023 take 1 tablet by mouth in the morning cyanocobalamin 1000 MCG tablet Indications: B12 deficiency TAKE 1 TABLET (1,000 MCG TOTAL) BY MOUTH IN THE MORNING 90 tablet 1 03/24/2024 Active Completed/Discontinued Medications Medication Drug Class(es) Dates Sig (Normalized) Sig (Original) dtsxxtrt-mmmp-OB-ca lcium &mins (THERAGRAN-M) 9 mg iron-400 mcg tablet (3 sources) End: 05-19-2024 ldnyhuvj-dsdn-YT-bruno cium &mins (THERAGRAN-M) 9 mg iron-400 mcg tablet Take 1 tablet by mouth in the morning. 05/19/2024 Discontinued (Therapy completed) bntxfebt-drfu-NF -calcium &mins (THERAGRAN-M) 9 mg iron-400 mcg [...] Onset: 03-08-2024 05-19-2024 Chronic Headache; including migraine (5 sources) Intractable chronic headache following trauma; Translations: [Chronic post-traumatic headache, intractable] Onset: 04-28-2024 05-19-2024 Chronic Headache; including migraine (1 source) Headache Onset: 05-19-2024 Episodic Hepatitis (1 source) Nonalcoholic steatohepatitis (VIEIRA); Translations: [Nonalcoholic steatohepatitis (VIEIRA)] Onset: 12-22-2023 Chronic Mood disorders (8 sources) Depressive disorder; Translations: [Depression] Onset: 04-29-2024 [...] UNSPECIFIED] Onset: 9 Episodic Acute posthemorrhagic anemia (17 sources) Acute posthemorrhagic anemia; Translations: [Acute posthemorrhagic [...] 03-08-2024 Episodic Genitourinary symptoms and ill-defined conditions (17 sources) Retention of urine; Translations: [Retention of urine, unspecified] Onset: 2 03-08-2024 Episodic Intracranial injury (20 sources) Unspecified intracranial injury 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 with patient surviving, initial encounter; Translations: [Traumatic brain injury] Onset: 4 03-08-2024 Episodic Mood disorders (7 sources) Mood disorders Onset: 4 Resolved: 4 04-28-2024 Nutritional deficiencies (2 sources) Deficiency of other specified B group vitamins; Translations: [Deficiency of other specified B group vitamins] Onset: 4 Episodic Other circulatory disease (2 sources) Orthostatic hypotension; Translations: [Orthostatic hypotension] Onset: 4 Episodic Other fractures (17 sources) Closed fracture of multiple left ribs; Translations: [Multiple fractures of ribs, left side, initial encounter for closed fracture] Onset: 2 03-08-2024 Episodic Other gastrointestinal disorders (17 sources) Oropharyngeal dysphagia; Translations: [Dysphagia, oropharyngeal phase] Onset: 2 03-08-2024 Episodic Other lower respiratory disease (3 sources) Cough; Translations: [COUGH] Onset: 9 Episodic Other nutritional; endocrine; and metabolic disorders (10 sources) Overweight; Translations: [Overweight] Onset: 3 03-08-2024 Episodic Other upper respiratory infections (1 source) Acute upper respiratory infection, unspecified; Translations: [ACUTE UP RESPIRATORY INFECTION UNS] Onset: 9 Episodic Residual codes; unclassified (17 sources) History of closure of colostomy; Translations: [...] MRI B rain & IAC W/WO at [facility]. Please call patient to schedule. Auditory function testson Right Ear: Mild to moderate sensorineural hearing loss above 2K Hz. Left Ear: Mild to moderate sensorineural hearing loss above 1K Hz. [facility] Extremeityon Very mild C8 radiculopathy on the right Mild carpal tunnel syndrome on the right No clear explanation for right shoulder pain [facility] Factor 14 e NVC 5-6 Nerveson 05-10-2024 Very mild C8 radiculopathy on the right Mild carpal tunnel syndrome on the right No clear explanation for right shoulder pain [facility] Factor 14 e Refillon 03-24-2024 Refill [id number] Maxwell Harris 1965 M Date Provider Department Center 03/24/2024 [id number]-XMPVJQZGALONDRA HOLMAN INT MED Comprehensiv Family History Problem Relation Age of Onset Diabetes Mother Lung cancer Mother Kidney failure Mother Heart disease Father Other Father Family Status - Relation Status Age at Mother Father Reason for Visit and Comments: Med Refill [[id number]] Normal [facility] 36on 02-23-2024 36 Refill request for Requested [...] of 2) Never done COVID-19 Vaccine ( season) 2023 Influenza Vaccine (1) 04/03/2024 HIB [...] Perforated diverticulum Purpura (CMS/HCC) Urinary retention Normal [facility] Refillon 02-22-2024 Refill [id number] Maxwell Harris 1965 M Date Provider Department Center 02/22/2024 24144-EIWRJDWBALONDRA ALFARO INT MED Comprehensiv Family History Problem Relation Age of Onset Diabetes Mother Lung cancer Mother Kidney failure Mother Heart disease Father Other Father Family Status - Relation Status Age at Mother Father Reason for Visit and Comments: Med Refill [[id number]] Normal [facility] XR pre/post mri xrayon 02-17 XR pre/post mri xray [facility] [place] [address] MRI Report Signed Patient: Maxwell Harris MR#: [id number] : 1965 Acct:[id number] Age/Sex: 58 / M ADM Date: 02/18/24 Loc: [facility] Room: Type: [facility] CLI Attending Dr: Deanna Mejia DO Copies to: Deanna Mejia DO Ordering Provider: Deanna Mejia DO Date of Service: 02/18/24 MR/MR lumbar spine wo con: [id number] ([id number]) XR/XR pre/post mri xray: LUMBAR PRES MR [...] Cain Trinidad M.D.02/18/2024 4:45 PM Dictation Location: [place] [address] Transcribed By: [facility] 02/18/24 6145 Dictated By: Cain Trinidad II, MD 02/18/24 1628 Signed By: 02/18/24 1645 Normal [facility] MR BRAIN WO CONTon [...] Maurer MD on 12/23/2023 9:31 AM Normal [facility] US ABDOMEN LMTDon 12-23-2023 US ABDOMEN [...] Chopra MD on 12/23/2023 1:10 PM Normal [facility] CBC AND AUTO DIFFon 12-07-19 24 ABSOLUTE BASOPHIL 0.1 X10E9/L Normal 0.0-0.2 [facility] Comment on above: Performed By: #### [place], 05675-8, TSHR, CBCA, 2132-04 #### [facility] ([id number]) [address], [address] [place] [address] ABSOLUTE NEUTROPHIL 3.2 X10E9/L Normal 1.5-6.6 [facility] Comment on above: Performed By: #### [place], [address]12-1, TSHR, CBCA, 2132-04 #### [facility] ([id number]) [address], [address] [place] [address] Basophils/100 WBC (Bld) 0.9 % Normal [facility] Comment on above: Performed By: #### C MP, 19075-7, TSHR, CBCA, 2132-04 #### [facility] ([id number]) [address] [place] [address] Eosinophils (Bld) [#/Vol] 0.0 10*3/uL Normal 0.0-0.4 [facility] Comment on above: Performed By: #### C TEJAS, 90171-3, TSHR, CBCA, 2132-04 #### [facility] ([id number]) [address] [address] Eosinophils/100 WBC (Bld) 0.7 % Normal [facility] Comment on above: Performed By: #### C TEJAS, 24328-0, TSHR, CBCA, 2132-04 #### [facility] ([id number]) [address] [place] [address] Erythrocyte distribution width (RBC) [Ratio] 13.9 % Normal 11.5-15.0 [facility] Comment on above: Performed By: #### C TEJAS, 09806-8, TSHR, CBCA, 2132-04 #### [facility] ([id number]) [address] [place] [address] Hematocrit (Bld) [Volume fraction] 48.0 % Normal 39-49 [facility] Comment on above: Performed By: #### C TEJAS, 20539-8, TSHR, CBCA, 2132-04 #### [facility] ([id number]) [address] [place] [address] Hemoglobin (Bld) [Mass/Vol] 16.4 g/dL Normal 13.0-17.0 [facility] Comment on above: Performed By: #### C TEJAS, 12010-5, TSHR, CBCA, 2132-04 #### [facility] ([id number]) [address] [place] [address] Lymphocytes (Bld) [#/Vol] 1.6 10*3/uL Normal 1.0-3.5 [facility] Comment on above: Performed By: #### C TEJAS, 72907-6, TSHR, CBCA, 2132-04 #### [facility] ([id number]) [address], [address] [place] [address] Lymphocytes/100 WBC (Bld) 28.7 % Normal [facility] Comment on above: Performed By: #### Mayela LAZARO, 00618-2, TSHR, CBCA, 2132-04 #### [facility] ([id number]) [address], [address] [place] [address] MCH (RBC) [Entitic mass] 34.9 pg High 27-34 [facility] Comment on above: Performed By: #### C TEJAS, 87157-0, TSHR, CBCA, 2132-04 #### [facility] ([id number]) [address], [address] [place] [address] MCHC (RBC) [Mass/Vol] 34.2 g/dL Normal 32-36 [facility] Comment on above: Performed By: #### Mayela LAZARO, 82105-5, TSHR, CBCA, 2132-04 #### [facility] ([id number]) [address], [address] [place] [address] MCV (RBC) [Entitic vol] 102 fL High 80-100 [facility] Comment on above: Performed By: #### Mayela LAZARO, 22972-9, TSHR, CBCA, 2132-04 #### [facility] ([id number]) [address], [address] [place] [address] Monocytes (Bld) [#/Vol] 0.6 10*3/uL Normal 0-0.9 [facility] Comment on above: Performed By: #### Mayela LAZARO, 50102-6, TSHR, CBCA, 2132-04 #### [facility] ([id number]) [address], [address] [place] [address] Monocytes/100 WBC (Bld) 10.8 % Normal [facility] Comment on above: Performed By: #### C TEJAS, 12695-3, TSHR, CBCA, 2132-04 #### [facility] ([id number]) [address], [facility] [address] [place] [address] Neutrophils/100 WBC (Bld) 58.9 % Normal [facility] Comment on above: Performed By: #### C TEJAS, 93519-5, TSHR, CBCA, 2132-04 #### [facility] ([id number]) [address], [facility] [address] [place] [address] Platelet mean volume (Bld) [Entitic vol] 8.9 fL Normal 7-12 [facility] Comment on above: Performed By: #### C TEJAS, 50187-7, TSHR, CBCA, 2132-04 #### [facility] ([id number]) [address], [address] [place] [address] Platelets (Bld) [#/Vol] 95 10*3/uL Low 150-450 [facility] Comment on above: Performed By: #### C TEJAS, 88646-2, TSHR, CBCA, 2132-04 #### [facility] ([id number]) [address], [facility] [address] [place] [address] RBC COUNT 4.70 X10E12/L Normal 4.10-5.70 [facility] Comment on above: Performed By: #### C TEJAS, 38571-2, TSHR, CBCA, 2132-04 #### [facility] ([id number]) [address], [address] [place] [address] WBC (Bld) [#/Vol] 5.4 10*3/uL Normal 4.0-11.0 [facility] Comment on above: Performed By: #### C TEJAS, 16713-1, TSHR, CBCA, 2132-04 #### [facility] ([id number]) [address], [address] [place] [address] COMPREHENSIVE METABOLIC PANE Alejandro 12-07-2023 Albumin [Mass/Vol] 3.8 g/dL Normal 3.2-5.3 [facility] Comment on above: Performed By: #### C TEJAS, 83028-5, TSHR, CBCA, 2132-04 #### [facility] ([id number]) [address], [address] [place] [address] ALP [Catalytic activity/Vol] 89 U/L Normal 39-130 [facility] Comment on above: Performed By: #### C TEJAS, 38859-4, TSHR, CBCA, 2132-04 #### [facility] ([id number]) [address], [address] [place] [address] ALT [Catalytic activity/Vol] 33 U/L Normal 0-40 [facility] Comment on above: Performed By: #### C TEJAS, 57156-2, TSHR, CBCA, 2132-04 #### [facility] ([id number]) [address], [address] [place] [address] Anion gap [Moles/Vol] 10 mmol/L Normal 5-15 [facility] Comment on above: Performed By: #### C TEJAS, 85816-5, TSHR, CBCA, 2132-04 #### [facility] ([id number]) [address], [address] [place] [address] AST [Catalytic activity/Vol] 58 U/L High 0-41 [facility] Comment on above: Performed By: #### C TEJAS, 94073-4, TSHR, CBCA, 2132-04 #### [facility] ([id number]) [address], [address] [place] [address] Bilirubin [Mass/Vol] 0.7 mg/dL Normal 0.3-1.2 [facility] Comment on above: Performed By: #### C MP, 87235-6, TSHR, CBCA, 2132-04 #### [facility] ([id number]) [address] [place] [address] Calcium [Mass/Vol] 8.9 mg/dL Normal 8.5-10.5 [facility] Comment on above: Performed By: #### C MP, 76995-4, TSHR, CBCA, 2132-04 #### [facility] ([id number]) [address] [address] Chloride [Moles/Vol] 107 mmol/L Normal 98-109 [facility] Comment on above: Performed By: #### C TEJAS, 25204-0, TSHR, CBCA, 2132-04 #### [facility] ([id number]) [address] [address] CO2 [Moles/Vol] 26 mmol/L Normal 22-32 [facility] Comment on above: Performed By: #### C TEJAS, 99524-4, TSHR, CBCA, 2132-04 #### [facility] ([id number]) [address] [address] Creatinine [Mass/Vol] 0.89 mg/dL Normal 0.60-1.30 [facility] Comment on above: Result Comment: METH OD TRACEABLE TO IDMS STANDARD Performed By: #### C MP, 07520-6, TSHR, CBCA, 2132-04 #### [facility] ([id number]) [address] [place] [address] eGFR (CKD-EPI) NON-RACE DEPENDENT >90 Normal >59 [facility] Comment on above: Result Comment: Reported eGFR is based on the CKD-EPI 2020 equation that does not use a race coefficient. Performed By: #### C MP, 42648-7, TSHR, CBCA, 2132-04 #### [facility] ([id number]) [address] [place] [address] Glucose [Mass/Vol] 93 mg/dL Normal 65-99 [facility] Comment on above: Performed By: #### C MP, 44461-5, TSHR, CBCA, 2132-04 #### [facility] ([id number]) [address], [address] [place] [address] Potassium [Moles/Vol] 3.7 mmol/L Normal 3.5-5.0 [facility] Comment on above: Performed By: #### C MP, 36308-6, TSHR, CBCA, 2132-04 #### [facility] ([id number]) [address], [address] [place] [address] Protein [Mass/Vol] 6.6 g/dL Normal 6.0-8.0 [facility] Comment on above: Performed By: #### C MP, 66610-5, TSHR, CBCA, 2132-04 #### [facility] ([id number]) [address], [address] [place] [address] Sodium [Moles/Vol] 143 mmol/L Normal 134-146 [facility] Comment on above: Performed By: #### C MP, 53387-5, TSHR, CBCA, 2132-04 #### [facility] ([id number]) [address], [address] [place] [address] Urea nitrogen [Mass/Vol] 10 mg/dL Normal 5-23 [facility] Comment on above: Performed By: #### C MP, 09875-5, TSHR, CBCA, 2132-04 #### [facility] ([id number]) [address], [address] [place] [address] Lipid 1996 panelon 4 Cholesterol [Mass/Vol] 103 mg/dL Low 150-200 [facility] Comment on above: Performed By: #### Mayela LAZARO, 30645-0, TSHR, CBCA, 2132-04 #### [facility] ([id number]) [address], [address] [place] [address] Cholesterol in HDL [Mass/Vol] 63 mg/dL Normal >39 [facility] Comment on above: Result Comment: HDL <40 mg/dL - High Risk HDL > or = 40mg/dL- Desirable HDL >60 mg/dL - Negative Risk Performed By: #### C TEJAS, 99572-2, TSHR, CBCA, 2132-04 #### [facility] ([id number]) [address], [address] [place] [address] Cholesterol in LDL [Mass/Vol] 5 mg/dL Normal <130 [facility] Comment on above: Result Comment: LDL <100 mg/dL - Desirable LDL >160 mg/dL - High Risk Performed By: #### Mayela LAZARO, 65570-1, TSHR, CBCA, 2132-04 #### [facility] ([id number]) [address], [address] [place] [address] Cholesterol in VLDL [Mass/Vol] 35 mg/dL High 0-30 [facility] Comment on above: Performed By: #### Mayela LAZARO, 66444-0, TSHR, CBCA, 2132-04 #### [facility] ([id number]) [address], [address] [place] [address] CHOLESTEROL:HDL 1.6 Normal 1.0-5.0 [facility] Comment on above: Performed By: #### C TEJAS, 45141-9, TSHR, CBCA, 2132-04 #### [facility] ([id number]) [address], [address] [place] [address] Triglyceride [Mass/Vol] 173 mg/dL High 27-150 [facility] Comment on above: Performed By: #### C TEJAS, 67130-2, TSHR, CBCA, 2132-04 #### [facility] ([id number]) [address], [address] [place] [address] TSH WITH REFLEXon 12-07-2023 TSH 1.69 uIU/mL Normal 0.49-4.67 [facility] Comment on above: Performed By: #### C TJEAS, 32622-5, TSHR, CBCA, 2132-04 #### [facility] ([id number]) [address], [address] [place] [address] VITAMIN B12on 12-07-2023 Cobalamin (Vitamin B12) [Mass/Vol] 337 pg/mL Normal 180-914 [facility] Comment on above: Performed By: #### C TEJAS, 96965-3, TSHR, CBCA, 2132-04 #### [facility] ([id number]) [address], [address] [place] [address] 36on 08-31-2023 36 Please advise Normal [facility] Refillon 08-31-2023 Refill [id number] Maxwell Harris 1965 M Date Provider Department Center 08/31/2023 [id number], [facility] INT MED Comprehensiv Family History Problem Relation Age of Onset Diabetes Mother Lung cancer Mother Kidney failure Mother Heart disease Father Other Father Family Status - Relation Status Age at Mother Father Reason for Visit and Comments: Med Refill [[id number]] Normal [facility] 36on 07-22-2023 36 Please advise [facility] Refillon 07-22-2023 Refill [id number] Maxwell Harris 1965 M Date Provider Department Center 07/22/2023 480-[facility] INT MED Comprehensiv Family History Problem Relation Age of Onset Diabetes Mother Lung cancer Mother Kidney failure Mother Heart disease Father Other Father Family Status - Relation Status Age at Mother Father Reason for Visit and Comments: Med Refill [[id number]] [facility] Refillon 05-06-2023 Refill [id number] Maxwell Harris 1965 M Date Provider Department Center 05/06/2023 480-[facility] INT MED Comprehensiv Family History Problem Relation Age of Onset Diabetes Mother Lung cancer Mother Kidney failure Mother Heart disease Father Other Father Family Status - Relation Status Age at Mother Father Reason for Visit and Comments: Med Refill [[id number]] Normal [facility] Vital Signs Date Time Vital Sign Value Performing Clinician Facility 06-01-2024 13:09-0400 Body height 177.8 cm Addie Garay MD Work Phone: [facility] 06-01-2024 13:09-0400 Body mass index (BMI) [Ratio] 23.39 kg/m2 Addie Garay MD Work Phone: [facility] 06-01-2024 13:09-0400 Body weight 73.94 kg Addie Garay MD Work Phone: [facility] 06-01-2024 13:09-0400 Diastolic blood pressure 68 mm[Hg] Addie Garay MD Work Phone: [facility] 06-01-2024 13:09-0400 Systolic blood pressure 125 mm[Hg] Addie Garay MD Work Phone: [facility] 05-19-2024 12:36-0400 Body height 180.3 cm Cris Singh DO Work Phone: [facility] 05-19-2024 12:36-0400 Body mass index (BMI) [Ratio] 22.79 kg/m2 Cris Singh DO Work Phone: [facility] 05-19-2024 12:36-0400 Body temperature 98.01 [degF] Cris Yuhas DO Work Phone: [facility] [employer] [facility] 05-19-2024 12:36-0400 Body weight 74.12 kg Cris Singh DO Work Phone: [facility] 05-19-2024 12:36-0400 Diastolic blood pressure 70 mm[Hg] Cris Osegueras DO Work Phone: [facility] 05-19-2024 12:36-0400 Heart rate 83 /min Cris Singh DO Work Phone: [facility] 05-19-2024 12:36-0400 Respiratory rate 18 /min Cris Singh DO Work Phone: [facility] 05-19-2024 12:36-0400 SaO2% (BldA) [Mass fraction] 97 % Cris Singh DO Work Phone: [facility] 05-19-2024 12:36-0400 Systolic blood pressure 130 mm[Hg] Cris Singh DO Work Phone: [facility] 05-12-2024 14:09-0400 Body height 177.8 cm Rob Montes De Oca CRECHE ATTENDANT Work Phone: [facility] 05-12-2024 14:09-0400 Body mass index (BMI) [Ratio] 23.56 kg/m2 Rob Montes De Oca CRECHE ATTENDANT Work Phone: [facility] 05-12-2024 14:09-0400 Body weight 74.48 kg Rob Montes De Oca CRECHE ATTENDANT Work Phone: [facility] 05-12-2024 14:09-0400 Diastolic blood pressure 68 mm[Hg] Rob Montes De Oca CRECHE ATTENDANT Work Phone: [facility] 05-12-2024 14:09-0400 Heart rate 70 /min Rob Montes De Oca CRECHE ATTENDANT Work Phone: [facility] 05-12-2024 14:09-0400 SaO2% (BldA) [Mass fraction] 97 % Rob Montes De Oca CRECHE ATTENDANT Work Phone: [facility] 05-12-2024 14:09-0400 Systolic blood pressure 130 mm[Hg] Rob Tavon CRECHE ATTENDANT Work Phone: [facility] Encounters Encounter Date Encounter Type Care Provider Facility Start: 07-02-2024 End: 07-03-2024 Refill Cris Singh DO Work Phone: [facility] Internal [facility] - [facility] Medicine Comment on above: Intractable chronic post-traumatic headache Start: 06-27-2024 End: 06-27-2024 ambulatory Lalitha Vela MD Facility:[facility] Start: 06-16-2024 End: 06-17-2024 Telephone encounter Tamica Recinos [facility] Internal [facility] - Family Medicine Start: 06-13-2024 End: 06-13-2024 Refill Tamica Recinos [facility] Internal Medicine - Family Medicine Comment on above: Intractable chronic post-traumatic headache Start: 06-01-2024 End: 06-01-2024 Office outpatient new 45 minutes Addie Garay MD Work Phone: [facility] Comment on above: Bilateral tinnitus ( Primary Dx); Asymmetric SNHL (sensorineural hearing loss); Imbalance Start: 06-01-2024 End: 06-01-2024 ambulatory ADDIE GARAY Not Available Start: 05-30-2024 End: 05-30-2024 Refill Cris Singh DO Work Phone: [facility] Internal Medicine - Family Medicine Comment on above: Intractable chronic post-traumatic headache Start: 05-25-2024 End: 05-25-2024 Clinical Support Shelby Denson CCC-A Work Phone: [facility] Comment on above: Sensorineural hearin g loss (SNHL) of both ears (Primary Dx); Tinnitus, bilateral; Meniere's disease, unspecified laterality Start: 05-25-2024 End: 05-25-2024 Bamboo flowsheet Shelby Denson CCC-A Work Phone: [facility] Start: 05-25-2024 End: 05-25-2024 Bamboo flowsheet Shelby Denson CCC-A Work Phone: [facility] Start: 05-19-2024 End: 05-19-2024 Office outpatient visit 25 minutes Cris Horanrolando DO Work Phone: [facility] Internal [facility] - Family Medicine Comment on above: Intractable chronic post-traumatic headache (Primary Dx); Localized osteoarthritis of lumbar spine; Glaucoma of both eyes, unspecified glaucoma type; Spondylosis of cervical spine Start: 05-19-2024 End: 05-19-2024 ambulatory [facility] Start: 05-16-2024 End: 05-16-2024 ambulatory Lalitha Vela MD Facility: [facility] Start: 05-12-2024 End: 05-12-2024 Office outpatient visit 25 minutes Rob Montes De Oca CRECHE ATTENDANT Work Phone: [facility] [address] Comment on above: Lumbar radiculopathy (Primary Dx); Weakness of right lower extremity; Polyneuropathy; Weakness of right upper extremity; Chronic right shoulder pain; Vertigo Start: 05-12-2024 End: 05-12-2024 Bamboo flowsheet Rob Tavon CRECHE ATTENDANT [facility] Start: 05-12-2024 End: 05-12-2024 Bamboo flowsheet Rob Montes De Oca CRECHE ATTENDANT Work Phone: [facility] Start: 05-12-2024 End: 05-16-2024 Telephone encounter Rob Montes De Oca CRECHE ATTENDANT Work Phone: [facility] Start: 05-12-2024 End: 05-12-2024 ambulatory ROB TAVON Not Available Start: 05-11-2024 End: 05-11-2024 Refill Cris Horanholgerromero DO Work Phone: [facility] Internal Medicine - Family Medicine Comment on above: Localized osteoarthr itis of lumbar spine Start: 05-10-2024 End: 05-10-2024 Patient encounter procedure Deanna Mejia DO [facility] Comment on above: Cervical radiculopat hy (Primary Dx); Weakness of right upper extremity; Carpal tunnel syndrome on right Start: 05-10-2024 End: 05-10-2024 Bamboo flowsheet Deanna Gottliebett DO Work Phone: [facility] [employer] [address] Start: 05-10-2024 End: 05-10-2024 Bamboo flowsheet Deanna Mejia DO Work Phone: [facility] Start: 05-10-2024 End: 05-10-2024 ambulatory DEANNA MEJIA Not Available Start: 04-28-2024 End: 04-28-2024 ambulatory [facility] Start: 03-08-2024 Patient encounter status Jarrett garcia Jackie DO Work Phone: [facility] Start: 03-08-2024 End: 03-08-2024 ambulatory [facility] Start: 02-24-2024 End: 02-24-2024 ambulatory ROB MONTES DE OCA Not Available Start: 02-18-2024 End: 02-18-2024 Patient encounter procedure [facility] [address] Work Phone: Start: 02-18-2024 End: 02-18-2024 ambulatory NON STAFF [facility] Work Phone: Start: 02-16-2024 End: 02-16-2024 ambulatory DEANNA MEJIA Not Available Start: 01-26-2024 End: 01-26-2024 ambulatory DEANNA GOTTLIEBETT Not Available Start: 01-18-2024 End: 01-18-2024 ambulatory DEANNA MEJIA Not Available Start: 12-29-2023 End: 12-29-2023 [facility] Start: 12-22-2023 End: 12-23-2023 ambulatory [facility] Start: 12-07-2023 End: 12-08-2023 [facility] Start: 12-07-2023 End: 12-07-2023 ambulatory [facility] Start: 12-07-2018 End: 12-07-2018 Patient encounter procedure NONE LISTED REQUEST Facility:[facility]1 Start: 11-22-2018 End: 11-23-2018 Patient encounter procedure Cris Cruz Facility:CD:[id number] Start: 09-10-2018 Patient encounter procedure ROXANE MITCHELL Facility:[facility]1 Procedures Date Procedure Procedure Detail Performing Clinician Start: 05-25-2024 AUDITORY FUNCTION TESTS Shelby Denson [facility] Work Phone: Start: 05-19-2024 Adult depression screening assessment Cris Singh Work Phone: Start: 05-10-2024 End: 05-10-2024 Needle emg ea extremty w/paraspinl area complete Rob Montes De Oca NP Work Phone: Start: 04-28-2024 Adult depression screening assessment Cris Singh Work Phone: Start: 03-08-2024 Follow-up visit Follow-up CRIS SINGH Start: 02-18-2024 MR lumbar spine wo con Start: 02-18-2024 XR pre/post mri xray Plan of Treatment Date Care Activity Detail Author Start: 05-19-2025 Adult BMI Screening Adult BMI Screen ing [facility] Start: 05-19-2025 Depression Screening Depression Scre ening [facility] Start: 05-19-2025 Tobacco Screening Tobacco Screening [facility] Start: 04-28-2025 Adult BMI Screening Adult BMI Screen ing [facility] Start: 04-28-2025 Depression Screening Depression Scre ening [facility] Start: 04-28-2025 Tobacco Screening Tobacco Screening [facility] Start: 08-22-2024 End: 08-22-2024 Patient encounter procedure 08/22/2024 2:30 PM EST Office Visit [facility] Internal Medicine - Family Medicine [address] [place] [address] Cris Singh DO [address] [place] [address] [facility] Start: 06-15-2024 End: 06-15-2024 Patient encounter procedure 06/15/2024 2:40 PM EST Office Visit [facility] [address] [place] [phone] Rob Montes De Oca NP [address] [place] [phone] [facility] [place] [facility] Start: 06-01-2024 End: 06-01-2024 Patient encounter procedure 06/01/2024 1:10 PM EDT Office Visit [facility] [address] [place] [phone] Addie Garay MD [address] [place] [address] [facility] Start: 05-25-2024 End: 05-25-2024 Clinical Support 05/25/2024 2:30 PM EDT Clinical Support [facility] [address] [place] [phone] Shelby Denson, [facility] [address] [facility] [place] [address] [facility] Start: 05-19-2024 End: 05-19-2024 Patient encounter procedure 05/19/2024 12:30 PM EDT Office Visit [facility] [address] [facility] [place] [address] Cris Singh, [address] [facility] [facility] [place] [address] [facility] Start: 05-17-2024 End: 05-17-2025 MR Cervical spine WO and W contrast IV MR cervical spine w and wo contrast Imaging Routine Weakness of right upper extremity Expected: 05/17/2024 (Approximate), Expires: 05/17/2025 [facility] Work Phone: Comment on above: Expected: 05/17/2024 (Approximate), Expires: 05/17/2025 Start: 05-12-2024 End: 05-12-2024 Patient encounter procedure [facility] [address] Comment on above: Lumbar radiculopathy (Primary Dx); Weakness of right lower extremity; Polyneuropathy; Weakness of right upper extremity Start: 05-10-2024 End: 05-10-2024 Patient encounter procedure 05/10/2024 2:30 PM EDT Procedure Visit [facility] [address] [place] [address] Deanna Mejia, [address] [place] [address] Arrived [facility] Comment on above: Arrived Start: 04-03-2024 COVID-19 Vaccine ( season) COVID-19 Vaccine ( season) [facility] Start: 04-03-2024 COVID-19 Vaccine ( season) COVID-19 Vaccine ( season) [facility] Start: 04-03-2024 Influenza vaccination [facility] Start: 2016 Administration of varicella zoster vaccine Zoster (Shingles) Vaccine (1 of 2) [facility] Start: 1985 DTaP,Tdap and Td Vac cines (1 - Tdap) DTaP,Tdap and Td Vaccines (1 - Tdap) [facility] Start: 1966 Screening for malign ant neoplasm of colon [facility] Start: 1966 Tobacco Counseling Tobacco Counselin ca [facility] Payers Date Payer Category Payer Self-pay [id number] 2024 Medicaid [id number] 2024 Unknown [id number] 2023 Blue Cross Blue Shield BCBS [id number] 2023 Blue Cross Blue [facility] - Other ANTHEM [id number] 2023 Unknown [id number] 2023 Unknown [id number]. 1.13.693.2. [id number] 2022 Medicaid HMO [employer] [id number] 2020 Medicaid [id number]. [id number]. [id number] 2020 Private Health Insurance [facility] MEDICAID [id number] 2020 Medicaid [id number] 1966 Unknown [id number] 2.840.1.454359.3.579.2. 593 1966 Unknown [id number] 2.840.1.747725.3.579.2. 593 1966 Unknown [id number] 2.840.1.341811.3.579.2. 1285 1966 Unknown [id number] 2.16840.1.126654.3.579.2. 1286 1966 Unknown [id number] 2.840.1.276342.3.579.2. 1285 1966 Unknown [id number] 2.16840.1.624543.3.579.2. 128 1966 Unknown [id number] 2.16840.1.936727.3.579.2. 128 1966 Unknown [id number] 2.16840.1.333014.3.579.2. 128 1966 Unknown [id number] 2.16840.1.376441.3.579.2. 128 1966 Unknown [id number] 2.16.840.1.010032.3.579.2. 1286 1966 Unknown [id number] 2.16.840.1.282125.3.579.2. 9 1966 Unknown [id number] 2.16.840.1.039437.3.579.2. 1258 1966 Unknown [id number] 2.16.840.1.220152.3.579.2. 1258 1966 Unknown [id number] 2.16.840.1.184106.3.579.2. 1258 1966 Unknown [id number] 2.16.840.1.123170.3.579.2. 1258 1966 Unknown [id number] 2.16840.1.290656.3.579.2. 1258 1966 Unknown [id number] 2.16840.1.074190.3.579.2. 1258 1966 Unknown [id number] 2.16.840.1.898208.3.579.2. 1258 1966 Unknown [id number] 2.16.840.1.586282.3.579.2. 1258 1966 Unknown [id number] 2.16840.1.958792.3.579.2. 1966 Unknown [id number] 2.16840.1.200073.3.579.2. 196 1959 Self-pay [id number] 1959 Unknown [id number] Unknown [id number] 2.16840.1.177026.3.579.2. 531 Social History Date Type Detail Facility Start: 08-20-2020 Tobacco smoking stat us VAIS Smoker (finding) [facility] Start: 1965 Sex Assigned At Male [facility] Start: 12-07-2023 End: 01-18-2024 Tobacco smoking status NHIS Smokes tobacco daily [facility] History of tobacco use Cigarette Smoker [facility] Start: 12-07-2023 End: 01-18-2024 Tobacco use and exposure Smokeless tobacco non-user [facility] Start: 03-08-2024 End: 06-01-2024 Alcoholic beverage intake Current drinker of alcohol (finding) [facility] Start: 10-16-2020 End: 03-08-2024 History of Social function [facility] Start: 10-16-2020 End: 03-08-2024 Tobacco use panel [facility] Start: 1965 Sex assigned at Not on file [facility] Start: 04-28-2024 End: 05-19-2024 Alcoholic beverage intake Ex-drinker (finding) [facility] Do you belong to any clubs or organizations such as restorationism groups, unions, fraternal or athletic groups, or school groups? No [facility] Are you now , , , , never or living with a partner? Never [facility] How hard is it for y ou to pay for the very basics like food, housing, medical care, and heating Somewhat hard [facility] Adolescent depressio n screening assessment 0 [facility] Start: 04-28-2024 Alcohol Comment once a while [facility] Start: 03-08-2015 Sex Male (finding) [facility] Goals Date Patient Goal Desired Activity [...] 05-10-2024 to 06-16-2024 Telephone Encounter - Tamica Recinos, [facility] - 06/16/2024 3:43 PM ESTTelephone Encounter - Cris Singh, - 06/16/2024 3:43 PM ESTTelephone Encounter - Tamica Recinos [facility] - 06/16/2024 3:43 PM EST Note Date & Type Note Facility 06-16-2024 Miscellaneous Notes Patient needs a letter stating that you have been treating him and he is unable to work for child support. Message noted. A letter is in his chart documented in this encounter [facility] 06-16-2024 Telephone encounter Note Patient needs a letter stating that you have been treating him and he is unable to work for child support. [facility] 06-16-2024 Telephone encounter Note Message noted. A letter is in his chart [facility] 06-01-2024 History of Presen t illness [...] of colon with perforation 08/21/2022 Essential hypertension (CMS/HCC) 08/21/2022 Fall 06/19/2022 History of colostomy reversal 10/16/2020 Hyperglycemia 08/21/2022 Hyperlipidemia (CMS/HCC) 08/21/2022 Hypokalemia 08/21/2022 Multiple fractures of ribs, left side, initial encounter for closed fracture 06/29/2022 Oropharyngeal dysphagia 06/29/2022 Overweight 08/21/2022 Perforated diverticulum 04/23/2020 [place] 08/21/2022 TBI (traumatic brain injury[place] 02/15/2024 Urinary retention 06/29/2022 Well adult health check 08/21/2022 Resolved Ambulatory Problems Diagnosis Date Noted No Resolved Ambulatory Problems Past Medical History: Diagnosis Date B12 deficiency Cataracts, bilateral Gl[facility] Meniere's disease Smoker Traumatic brain injury ([facility] Past Surgical History: Procedure Laterality Date CT [...] facilitate vestibular rehab documented in this encounter [facility] 05-25-2024 History of Presen t illness Narrative [...] Type A tympanogram documented in this encounter [facility] 05-19-2024 History of Presen t illness Narrative IM PROGRESS NOTE Patient - Maxwell Harris Age - 58 y.[facility] 1965 [id number] ASSESS[facility] & PLAN 1. Intractable chronic post-traumatic [...] know what his pressures are. Sees the foreign exchange student coordinator in several weeks for recheck. As cataracts [...] Testing No results found. Cris Singh DO., [facility] Office: [phone] documented in this encounter [facility] 05-16-2024 Telephone encounter Note Reviewed, thank you. [facility] 05-16-2024 Miscellaneous Notes Reviewed, thank you. Note is routed to you and in media Notes have been requested. Should be in faxes. Can you please request the neurosurgery note for me to review? The patient was seen by Frandy Caba. documented in this encounter [facility] 05-16-2024 Telephone encounter Note Note is routed to you and in media [facility] 05-13-2024 Telephone encounter Note Notes have been requested. Should be in faxes. [facility] 05-12-2024 Telephone encounter Note Can you please request the neurosurgery note for me to review? The patient was seen by Frandy Caba. [facility] 05-12-2024 History of Presen t illness Narrative [...] and receives transportation via his health insurance, [employer]. The patient was evaluated by Dr. Singh ([facility] internal medicine) 04/28/2024. He was evaluated by Dr. Caba (neurosurgery) on 05/09/[address]. [address] Caba referred him to [facility] pain management, and he has [...] wrist extensors , wrist flexor , and ships equipment engineer strength 4+/5. May be a component of giveway weakness. Reduced range of motion in the right deltoid - patient states this is chronic. LUE strength deltoid , biceps , triceps , wrist extensors , wrist flexor , and ships equipment engineer strength 5/5. RLE strength iliopsoas, quadriceps, tibialis [...] reflex 0. LLE Knee reflex 2+. Coordination: Mcsznc-zf-plwa testing normal. Rapid alternating movements are normal. Gait: Appears antalgic. Review and summary of old records: Orthostatic vital signs at [facility] on 05/12/2024: Negative Laying - blood pressure 120/68, heart rate 72 beats/min Sitting - blood pressure 124/76, heart rate 72 beats/min Standing for 3 minutes - blood pressure 122/84, heart rate 94 beats/min EMG of the right upper extremity at [facility] on 05/10/2024: A remote C8 motor radiculopathy [...] of the lumbar spine without contrast at [facility] [place] 02/18/2024: At L1-L2, there is a broad-based disc bulge with a left subarticular disc protrusion. There is mild spinal canal stenosis. There is moderate left and moderate right neural foraminal narrowing. At L3-L4, there is a broad-based disc bulge with facet hypertrophy and endplate osteophyte formation. There is qdcg-ad-vspmjcda bilateral neural foraminal narrowing with moderate spinal [...] worsening symptoms. Rob Montes De Oca NP [facility] Advanced Neurology documented in this encounter [facility] 05-12-2024 Instructions Rob Montes De Oca NP - 05/12/2024 2:40 PM EDT - MRI of the cervical spine - Referral to orthopedic surgery documented in this encounter [facility] 05-10-2024 History of Presen t illness Narrative Images from the original note were not included. Reason for Appointment: EMG Patient: Maxwell Harris : 1965 EMG Computer: [employer] Referring Physician: Rob Montes De Oca CNP EMG: MONCHO engineering project manager: Meliton Burnette RT(R) Office Location: [place] Reason for EMG: c/o pain in right shoulder. No hx of DM. Not on blood thinners Comments: Procedure was explained to the patient who expressed understanding. Patient appeared to have tolerated the test well despite some discomfort due to the nature of the test. documented in this encounter [facility] Evaluation note No assessment inform ation [facility] Work Phone: Evaluation note Diagnosis Cervical radiculopathy- Primary Brachial neuritis or radiculitis nos Weakness of right upper extremity Other musculoskeletal symptoms referable to limbs Carpal tunnel syndrome on right Carpal tunnel syndrome [facility] Diagnosis Localized osteoarthritis of lumbar spine [facility] Diagnosis Localized osteoarthritis of lumbar spine documented [facility] this [facility] Diagnosis Lumbar radiculopathy- Primary Thoracic [...] of cervical spine documented in this encounter [facility]* Diagnosis Sensorineural hearing loss (SNHL) of both ears- Primary Tinnitus, bilateral Unspecified tinnitus Meniere's disease, unspecified laterality [facility] Diagnosis Intractable chronic post-traumatic headache [facility] Diagnosis Bilateral tinnitus- Primary Asymmetric SNHL (sensorineural hearing loss) Sensorineural hearing loss, asymmetrical Imbalance Abnormality of gait documented in this encounter [facility]* Diagnosis Intractable chronic post-traumatic headache [facility] filedocumented in this encounter [facility]ructionsNot on filedocumented in this encounter [facility]ructionsNot on filedocumented in this encounter [facility]ructionsNot on filedocumented in this encounter [facility]ructionsNot on filedocumented in this encounter [facility] Summary Purpose Family History No Family History [...] section and content) DATE CREATED AUTHOR 11/23/2018 [facility] DATE CREATED AUTHOR AUTHOR'S ORGANIZ ATION 03/11/2019 [facility] DATE CREATED AUTHOR AUTHOR'S ORGANIZ ATION 12/09/2023 [facility] DATE CREATED AUTHOR AUTHOR'S ORGANIZ ATION 12/24/2023 [facility] DATE CREATED AUTHOR AUTHOR'S ORGANIZ ATION 02/25/2024 [facility] DATE CREATED AUTHOR AUTHOR'S ORGANIZ ATION 03/26/2024 [facility] DATE CREATED AUTHOR AUTHOR'S ORGANIZ ATION 05/22/2024 [facility] DATE CREATED AUTHOR AUTHOR'S ORGANIZ ATION 06/19/2024 [facility] DATE CREATED AUTHOR AUTHOR'S ORGANIZ ATION 07/03/2024 [facility] Care Teams (unrecognized sec tion and content) Team Status: Active Member Role Status Dates NON STAFF Primary Care Provider Active Team Status: Inactive Member Role Status Dates NON STAFF Primary Care Provider Active Start: February 18, 2024 End: February 18, 2024 Deanna Mejia DO Attending Provider Active Start: February 18, 2024 End: February 18, 2024 Figure Clerk Relationship Specialty Start Date End Date Cris Singh MD [address] [place] [address] PCP - General Internal Medicine 01/04/24 Figure Clerk Relationship Specialty Start Date End Date Cris Singh MD [address] [place] [address] PCP - General Internal Medicine 01/04/24 Figure Clerk Relationship Specialty Start Date End Date Cris Singh DO [address] [place] [address] PCP - General Internal Medicine 12/07/23 Figure Clerk Relationship Specialty Start Date End Date Cris Singh DO [address] [place] [address] PCP - General Internal Medicine 12/07/23 Figure Clerk Relationship Specialty Start Date End Date Cris Singh MD [address] [facility] [place] [address] PCP - General Internal Medicine 01/04/24 Figure Clerk Relationship Specialty Start Date End Date Cris Singh MD [address] [facility] [place] [address] PCP - General Internal Medicine 01/04/24 Figure Clerk Relationship Specialty Start Date End Date Cris Singh MD [address] [facility] [place] [address] PCP - General Internal Medicine 01/04/24 Figure Clerk Relationship Specialty Start Date End Date Cris Singh DO [address] [facility] [place] [address] PCP - General Internal Medicine 12/07/23 Figure Clerk Relationship Specialty Start Date End Date Cris Singh MD [address] [facility] [place] [place] [address] PCP - General Internal Medicine 01/04/24 Figure Clerk Relationship Specialty Start Date End Date Cris Singh DO [address] [facility] [place] [address] PCP - General Internal Medicine 12/07/23 Figure Clerk Relationship Specialty Start Date End Date Cris Singh DO [address] [place] [address] PCP - General Internal Medicine 12/07/23 Goals [...] BE BASED ON THE PRIMARY CLINICAL RECORDS. [employer] provides no warranty or guarantee of the accuracy or completeness of information in this document.
--- NOTE | 2024-07-14 14:27 | P.CN_ITS ---
Consult Note: HPI Data of Consult Patient: known to practice within the last 3 years Consult date: 06/27/24 Requesting Physician: Tonia Rosado NP Primary Care Provider: CRIS SINGH Consult Narrative Reason for consult: neck, low back and bilateral lower extremity pain Narrative: 58yom who presents for assessment. continues to have neck pain, low back pain, bilateral LE pain. cervical imaging reviewed, significant for marked central canal narrowing at c3-4, with more moderate stenosis at other levels. no recent imaging of lumbar spine available. continues to engage in a series of provider directed home exercises >6 weeks, without lasting benefit. uses hydrocodone, lyrica, mobic. denies adverse med side effects. recent lumbar MRI consistent with severe bilateral foraminal narrowing at L5-S1. NS out of [facility] is referring pt to [facility] NS cc:: CC: Tonia Rosado NP Review of Systems ROS Status of ROS 10 or more systems reviewed and unremark able except as noted in history and below PFSH PFSH Social History Little interest or pleasure in doing things: not at all Feeling down, depressed, or hopeless: not at all Meds Home Medications and Allergies Home Medications ?Medication ?Instructions ?Recorded ?Confirmed ?Type atorvastatin 40 mg tablet 40 mg PO DAILY 05/16/24 07/01/24 History cyanocobalamin (vitamin B-12) 2,000 mcg PO DAILY 05/16/24 07/01/24 History 1,000 mcg tablet (Vitamin B-12) meloxicam 15 mg tablet 15 mg PO DAILY 05/16/24 07/01/24 History topiramate 50 mg tablet 50 mg PO BID 05/16/24 07/01/24 History tramadol 50 mg tablet 50 mg PO Q12H 05/16/24 07/01/24 History hydrocodone 5 mg-acetaminophen 325 1 tab PO BID PRN pain #60 tabs 06/27/24 07/01/24 Rx mg tablet pregabalin 75 mg capsule 75 mg PO TID #90 caps 06/27/24 07/01/24 Rx methylprednisolone 4 mg tablets in 4 mg PO DAILY #21 ea 07/01/24 Rx a dose pack (Medrol (Nguyễn)) polyethylene glycol 3350 17 17 g PO DAILY 4 days #68 grams 07/01/24 Rx gram/dose oral powder (Miralax) Allergies Allergy/AdvReac Type Severity Reaction Status Date / Time No Known Drug Allergies Allergy Verified 05/16/24 16:04 Exam Narrative Exam Narrative: Psych-alert and oriented x 3. Attentive and appropriate, constitutionally normal, displays normal mood and affect per situation. There are no obvious deficits in memory, reasoning, or intellect.? Skin-no obvious rashes, bruising, erythema noted to the patient's area of pain.? Extremities- extremities are warm with minimal edema and palpable pulses. Lumbar-tenderness to palpation noted in the lumbar spine and paraspinal musculature. Pain is elicited with flexion, extension, and lateral rotation of the lumbar spine. Range of motion is diminished with these motions. Facet loading maneuvers are positive. Strength-noted to be unremarkable with the exception of decreased strength rated at 4 out of 5 in bilateral quadriceps femoris, anterior tibialis. Sensory-no notable sensory deficits in the bilateral lower extremities to touch or pinprick in all dermatomal distributions with the exception to decreased sensation to the bilateral L4, 5,S1 dermatomal distribution Coordination remains intact.? Gait remains non-antalgic. Assessment and Plan Assessment and Plan (1) Lumbar stenosis with neurogenic claudication: (2) Cervical stenosis of spinal canal: (3) Chronic use of opiate drug for therapeutic purpose: (4) Sacroiliitis: Plan continue f/u with NS bilateral L5-S1 TFESI under fluoroscopy, risks vs benefits reviewed increase pregabalin 100mg TID and hydrocodone-acetaminophen 7.5mg BID PRN moderate to severe pain. risks vs benefits reviewed consider bilateral SIJ injections continue HEP as tolerated narcan ordered f/u 2 weeks after injection
== END 2024-07-14 13:31 ==
LOC: PM 13:31
PROVIDERS: PCP Internal Medicine; Visit Provider Nurse Practitioner
DX: M48.062 Spinal stenosis, lumbar region with neurogenic claudication (principal); M48.02 Spinal stenosis, cervical region; Z79.891 Long term (current) use of opiate analgesic; M46.1 Sacroiliitis, not elsewhere classified
CPT/HCPCS: G0463

== ENCOUNTER 2024-08-03 09:47 | Outpatient (RCR) | payer OTHER, SELFPAY | END 2024-08-08 14:49 | disposition home or self-care (01) | LOC: PT 09:47 | PROVIDERS: PCP Internal Medicine; Visit Provider Neurological Surgery | DX: M54.2 Cervicalgia (principal) ==

== ENCOUNTER 2024-08-29 12:19 | Outpatient (OUT) | payer OTHER, SELFPAY ==
--- OUTSIDE RECORDS SUMMARY | 2024-08-29 12:35 | XMS_ITS | CCD ---
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 FLEX/EXT, XR CERVICAL 4V AP/LAT/FLX/EXT HISTORY: Spinal stenosis, lumbar region with neurogenic claudication COMPARISON: None. RESULT: Cervical spine: Counting reference: Craniocervical junction. Anatomic Variants: None. Vertebral body heights and sagittal alignment are maintained. No dynamic instability. Moderate to severe multilevel degenerative disc disease. Bridging ventral endplate osteophytes at several levels in the lower cervical spine. Prevertebral soft tissues are normal. There is bilateral carotid atherosclerotic calcification. Lumbar spine: Counting reference: Lumbosacral junction. For the purposes of this report, L4-5 is considered the level of the iliac crest and assume there are 5 lumbar-type vertebrae. Anatomic variant: None. Vertebral body heights are maintained. Minimal stepwise retrolisthesis from L2 through L5 without dynamic instability. Severe multilevel disc height loss. Multilevel lower lumbar facet hypertrophy. The sacroiliac joints are intact. COMBINED DIVISION OF RADIOLOGY Provider, [facility] [place] - 08/25/2024 * * *Final Report* * * DATE OF EXAM: Aug 25 2024 11:59AM JIX 5231 - XR LUMBAR 4V AP/LAT/ FLEX/EXT / PROCEDURE REASON: Spinal stenosis, lumbar region with neurogenic claudication * * * * Physician Interpretation * * * * EXAMINATION / TECHNIQUE: XR LUMBAR 4V AP/LAT/ FLEX/EXT, XR CERVICAL 4V AP/LAT/FLX/EXT HISTORY: Spinal stenosis, lumbar region with neurogenic claudication COMPARISON: None. RESULT: Cervical spine: Counting reference: Craniocervical junction. Anatomic Variants: None. Vertebral body heights and sagittal alignment are maintained. No dynamic instability. Moderate to severe multilevel degenerative disc disease. Bridging ventral endplate osteophytes at several levels in the lower cervical spine. Prevertebral soft tissues are normal. There is bilateral carotid atherosclerotic calcification. Lumbar spine: Counting reference: Lumbosacral junction. For the purposes of this report, L4-5 is considered the level of the iliac crest and assume there are 5 lumbar-type vertebrae. Anatomic variant: None. Vertebral body heights are maintained. Minimal stepwise retrolisthesis from L2 through L5 without dynamic instability. Severe multilevel disc height loss. Multilevel lower lumbar facet hypertrophy. The sacroiliac joints are intact. COMBINED IMPRESSION IMPRESSION: Degenerative changes as described. Pricing Manager: LIANA Transcribe Date/Time: Aug 25 2024 2:15P Dictated by : BRANDO HUIZAR MD This examination was interpreted and the report reviewed and electronically signed by: BRANDO HUIZAR MD on Aug 25 2024 2:16PM [facility] Radiology Study observation (narrative) [facility] MR BRAIN W AND WO CONTRAST ( [...] MRI B rain & IAC W/WO at [facility]. Please call patient to schedule. Auditory function testson Right Ear: Mild to moderate sensorineural hearing loss above 2K Hz. Left Ear: Mild to moderate sensorineural hearing loss above 1K Hz. [facility] EMG 1 Extremeityon Very mild C8 radiculopathy on the right Mild carpal tunnel syndrome on the right No clear explanation for right shoulder pain [facility] NVC 5-6 Nerveson 05-10-2024 Very mild C8 radiculopathy on the right Mild carpal tunnel syndrome on the right No clear explanation for right shoulder pain [facility] Refillon 03-24-2024 Refill [id number] Maxwell Starr 1965 M Date Provider Department Center 03/24/2024 [id number] HOLMAN INT MED Comprehensiv Family History Problem Relation Age of Onset Diabetes Mother Lung cancer Mother Kidney failure Mother Heart disease Father Other Father Family Status - Relation Status Age at Mother Father Reason for Visit and Comments: Med Refill [[id number]] [facility] 36on 02-23-2024 36 Refill request for Requested [...] Perforated diverticulum Purpura (CMS/HCC) Urinary retention Normal [facility] Refillon 02-22-2024 Refill [id number] Maxwell Starr 1965 M Date Provider Department Center 02/22/2024 [id number] HOLMAN INT MED Comprehensiv Family History Problem Relation Age of Onset Diabetes Mother Lung cancer Mother Kidney failure Mother Heart disease Father Other Father Family Status - Relation Status Age at Mother Father Reason for Visit and Comments: Med Refill [[id number]] Normal [facility] XR pre/post mri xrayon 02-17 XR pre/post mri xray [facility] [address] MRI Report Signed Patient: Maxwell Starr MR#: [id number] : 1965 Acct:[id number] Age/Sex: 58 / M ADM Date: 02/18/24 Loc: [facility] Room: Type: [facility] Attending Dr: Deanna Mejia DO Copies to: Deanna Mejia DO Ordering Provider: Deanna Mejia DO Date of Service: 02/18/24 MR/MR lumbar spine wo con: [id number] ([id number]) XR/XR pre/post mri xray: LUMBAR PRES MR [...] Cain Trinidad M.D.02/18/2024 4:45 PM Dictation Location: [place] [address] Transcribed By: DEVAN 02/18/24 1645 Dictated By: Cain Trinidad II, MD 02/18/24 1628 Signed By: 02/18/24 1645 Normal [facility] MR BRAIN WO CONTon [...] Maurer MD on 12/23/2023 9:31 AM Normal [facility] US ABDOMEN LMTDon 12-23-2023 US ABDOMEN LMTD [...] for provided patient age. No visualized ascites. __ IMPRESSION: 1. Mild dilatation common duct measuring 8 mm without intrahepatic biliary dilatation. Findings of uncertain clinical significance, if there is concern for possible obstructive picture please correlate with laboratory values. This may be further evaluated with MRCP as clinically warranted. 2. No convincing evidence of chronic hepatocellular disease. Finalized by Juan Carlos Chopra MD on 12/23/2023 1:10 PM Normal [facility] CBC AND AUTO DIFFon 12-07-19 ABSOLUTE BASOPHIL 0.1 X10E9/L Normal 0.0-0.2 [facility] Comment on above: Performed By: #### [place], [address]34-4, TSHR, CBCA, 2132-04 #### [facility] ([id number]) [address], [address] [place] [address] ABSOLUTE NEUTROPHIL 3.2 X10E9/L Normal 1.5-6.6 [facility] Comment on above: Performed By: #### C MP, 02914-4, TSHR, CBCA, 2132-04 #### [facility] ([id number]) [address], [address] [place] [address] Basophils/100 WBC (Bld) 0.9 % Normal [facility] Comment on above: Performed By: #### C MP, 99745-2, TSHR, CBCA, 2132-04 #### [facility] ([id number]) [address], [address] [place] [address] Eosinophils (Bld) [#/Vol] 0.0 10*3/uL Normal 0.0-0.4 [facility] Comment on above: Performed By: #### C MP, 59737-9, TSHR, CBCA, 2132-04 #### [facility] ([id number]) [address], [address] [place] [address] Eosinophils/100 WBC (Bld) 0.7 % Normal [facility] Comment on above: Performed By: #### C MP, 80279-1, TSHR, CBCA, 2132-04 #### [facility] ([id number]) [address], [address] [place] [address] Erythrocyte distribution width (RBC) [Ratio] 13.9 % Normal 11.5-15.0 [facility] Comment on above: Performed By: #### C TEJAS, 77391-3, TSHR, CBCA, 2132-04 #### [facility] ([id number]) [address] [place] [address] Hematocrit (Bld) [Volume fraction] 48.0 % Normal 39-49 [facility] Comment on above: Performed By: #### C TEJAS, 56786-4, TSHR, CBCA, 2132-04 #### [facility] ([id number]) [address] [place] [address] Hemoglobin (Bld) [Mass/Vol] 16.4 g/dL Normal 13.0-17.0 [facility] Comment on above: Performed By: #### C TEJAS, 15163-2, TSHR, CBCA, 2132-04 #### [facility] ([id number]) [address] [place] [address] Lymphocytes (Bld) [#/Vol] 1.6 10*3/uL Normal 1.0-3.5 [facility] Comment on above: Performed By: #### C TEJAS, 56098-0, TSHR, CBCA, 2132-04 #### [facility] ([id number]) [address] [place] [address] Lymphocytes/100 WBC (Bld) 28.7 % Normal [facility] Comment on above: Performed By: #### C TEJAS, 02452-4, TSHR, CBCA, 2132-04 #### [facility] ([id number]) [address] [place] [address] MCH (RBC) [Entitic mass] 34.9 pg High 27-34 [facility] Comment on above: Performed By: #### C TEJAS, 64292-7, TSHR, CBCA, 2132-04 #### [facility] ([id number]) [address], [address] [place] [address] MCHC (RBC) [Mass/Vol] 34.2 g/dL Normal 32-36 [facility] Comment on above: Performed By: #### C TEJAS, 36156-2, TSHR, CBCA, 2132-04 #### [facility] ([id number]) [address], [facility] [address] [place] [address] MCV (RBC) [Entitic vol] 102 fL High 80-100 P [facility] Comment on above: Performed By: #### C TEJAS, 06075-5, TSHR, CBCA, 2132-04 #### [facility] ([id number]) [address], [address] [place] [address] Monocytes (Bld) [#/Vol] 0.6 10*3/uL Normal 0-0.9 [facility] Comment on above: Performed By: #### C TEJAS, 49699-1, TSHR, CBCA, 2132-04 #### [facility] ([id number]) [address] [address] Monocytes/100 WBC (Bld) 10.8 % Normal [facility] Comment on above: Performed By: #### C MP, 55650-3, TSHR, CBCA, 2132-04 #### [facility] ([id number]) [address] [address] Neutrophils/100 WBC (Bld) 58.9 % Normal [facility] Comment on above: Performed By: #### C TEJAS, 21658-0, TSHR, CBCA, 2132-04 #### [facility] ([id number]) [address] [place] [address] Platelet mean volume (Bld) [Entitic vol] 8.9 fL Normal 7-12 [facility] Comment on above: Performed By: #### C TEJAS, 77917-6, TSHR, CBCA, 2132-04 #### [facility] ([id number]) [address], [facility] [address] [place] [address] Platelets (Bld) [#/Vol] 95 10*3/uL Low 150-450 [facility] Comment on above: Performed By: #### C TEJAS, 68695-5, TSHR, CBCA, 2132-04 #### [facility] ([id number]) [address], [facility] [address] [place] [address] RBC COUNT 4.70 X10E12/L Normal 4.10-5.70 [facility] Comment on above: Performed By: #### C TEJAS, 12392-4, TSHR, CBCA, 2132-04 #### [facility] ([id number]) [address] [place] [address] WBC (Bld) [#/Vol] 5.4 10*3/uL Normal 4.0-11.0 [facility] Comment on above: Performed By: #### C TEJAS, 25123-6, TSHR, CBCA, 2132-04 #### [facility] ([id number]) [address], [address] [place] [address] COMPREHENSIVE METABOLIC PANE Alejandro 12-07-2023 Albumin [Mass/Vol] 3.8 g/dL Normal 3.2-5.3 [facility] Comment on above: Performed By: #### C TEJAS, 72178-5, TSHR, CBCA, 2132-04 #### [facility] ([id number]) [address], [address] [place] [address] ALP [Catalytic activity/Vol] 89 U/L Normal 39-130 [facility] Comment on above: Performed By: #### C MP, 03082-2, TSHR, CBCA, 2132-04 #### [facility] ([id number]) [address], [address] [place] [address] ALT [Catalytic activity/Vol] 33 U/L Normal 0-40 [facility] Comment on above: Performed By: #### C TEJAS, 19520-5, TSHR, CBCA, 2132-04 #### [facility] ([id number]) [address], [address] [place] [address] Anion gap [Moles/Vol] 10 mmol/L Normal 5-15 [facility] Comment on above: Performed By: #### C TEJAS, 79313-0, TSHR, CBCA, 2132-04 #### [facility] ([id number]) [address], [address] [place] [address] AST [Catalytic activity/Vol] 58 U/L High 0-41 [facility] Comment on above: Performed By: #### C TEJAS, 59624-7, TSHR, CBCA, 2132-04 #### [facility] ([id number]) [address], [address] [place] [address] Bilirubin [Mass/Vol] 0.7 mg/dL Normal 0.3-1.2 [facility] Comment on above: Performed By: #### C TEJAS, 58842-6, TSHR, CBCA, 2132-04 #### [facility] ([id number]) [address], [address] [place] [address] Calcium [Mass/Vol] 8.9 mg/dL Normal 8.5-10.5 [facility] Comment on above: Performed By: #### C MP, 05887-6, TSHR, CBCA, 2132-04 #### [facility] ([id number]) [address], [address] [place] [address] Chloride [Moles/Vol] 107 mmol/L Normal 98-109 [facility] Comment on above: Performed By: #### C TEJAS, 77071-4, TSHR, CBCA, 2132-04 #### [facility] ([id number]) [address], [address] [place] [address] CO2 [Moles/Vol] 26 mmol/L Normal 22-32 [facility] Comment on above: Performed By: #### C TEJAS, 26452-4, TSHR, CBCA, 2132-04 #### [facility] ([id number]) [address], [address] [place] [address] Creatinine [Mass/Vol] 0.89 mg/dL Normal 0.60-1.30 [facility] Comment on above: Result Comment: METH OD TRACEABLE TO IDMS STANDARD Performed By: #### C TEJAS, 62307-9, TSHR, CBCA, 2132-04 #### [facility] ([id number]) [address], [address] [place] [address] eGFR (CKD-EPI) NON-RACE DEPENDENT >90 Normal >59 [facility] Comment on above: Result Comment: Reported eGFR is based on the CKD-EPI 2020 equation that does not use a race coefficient. Performed By: #### C TEJAS, 67832-9, TSHR, CBCA, 2132-04 #### [facility] ([id number]) [address], [address] [place] [address] Glucose [Mass/Vol] 93 mg/dL Normal 65-99 [facility] Comment on above: Performed By: #### C TEJAS, 79922-9, TSHR, CBCA, 2132-04 #### [facility] ([id number]) [address], [address] [place] [address] Potassium [Moles/Vol] 3.7 mmol/L Normal 3.5-5.0 [facility] Comment on above: Performed By: #### C TEJAS, 97798-2, TSHR, CBCA, 2132-04 #### [facility] ([id number]) [address], [address] [place] [address] Protein [Mass/Vol] 6.6 g/dL Normal 6.0-8.0 [facility] Comment on above: Performed By: #### C TEJAS, 90266-6, TSHR, CBCA, 2132-04 #### [facility] ([id number]) [address], [address] [place] [address] Sodium [Moles/Vol] 143 mmol/L Normal 134-146 [facility] Comment on above: Performed By: #### C TEJAS, 76241-2, TSHR, CBCA, 2132-04 #### [facility] ([id number]) [address], [facility] [address] [place] [address] Urea nitrogen [Mass/Vol] 10 mg/dL Normal 5-23 [facility] Comment on above: Performed By: #### C TEJAS, 59482-8, TSHR, CBCA, 2132-04 #### [facility] ([id number]) [address], [address] [place] [address] Lipid 1996 panelon 4 Cholesterol [Mass/Vol] 103 mg/dL Low 150-200 [facility] Comment on above: Performed By: #### C TEJAS, 99379-3, TSHR, CBCA, 2132-04 #### [facility] ([id number]) [address], [address] [place] [address] Cholesterol in HDL [Mass/Vol] 63 mg/dL Normal >39 [facility] Comment on above: Result Comment: HDL <40 mg/dL - High Risk HDL > or = 40mg/dL- Desirable HDL >60 mg/dL - Negative Risk Performed By: #### C TEJAS, 78293-8, TSHR, CBCA, 2132-04 #### [facility] ([id number]) [address], [address] [place] [address] Cholesterol in LDL [Mass/Vol] 5 mg/dL Normal <130 [facility] Comment on above: Result Comment: LDL <100 mg/dL - Desirable LDL >160 mg/dL - High Risk Performed By: #### C TEJAS, 88546-9, TSHR, CBCA, 2132-04 #### [facility] ([id number]) [address], [address] [place] [address] Cholesterol in VLDL [Mass/Vol] 35 mg/dL High 0-30 [facility] Comment on above: Performed By: #### C TEJAS, 58738-2, TSHR, CBCA, 2132-04 #### [facility] ([id number]) [address], [address] [place] [address] CHOLESTEROL:HDL 1.6 Normal 1.0-5.0 [facility] Comment on above: Performed By: #### Mayela LAZARO, 62538-1, TSHR, CBCA, 2132-04 #### [facility] ([id number]) [address], [address] [place] [address] Triglyceride [Mass/Vol] 173 mg/dL High 27-150 [facility] Comment on above: Performed By: #### C TEJAS, 59984-6, TSHR, CBCA, 2132-04 #### [facility] ([id number]) [address], [address] [place] [address] TSH WITH REFLEXon 12-07-2023 TSH 1.69 uIU/mL Normal 0.49-4.67 [facility] Comment on above: Performed By: #### C MP, 88329-5, TSHR, CBCA, 2132-04 #### [facility] ([id number]) [address] [facility] [address] [address] [address], [address] [place] [address] VITAMIN B12on 12-07-2023 Cobalamin (Vitamin B12) [Mass/Vol] 337 pg/mL Normal 180-914 [facility] Comment on above: Performed By: #### C MP, 40498-2, TSHR, CBCA, 2132-04 #### [facility] ([id number]) [address], [address] [place] [address] 36on 08-31-2023 36 Please advise [facility] Refillon 08-31-2023 Refill [id number] Maxwell Starr 1965 M Date Provider Department Center 08/31/2023 FERNIE CANELA [facility] INT MED Comprehensiv Family History Problem Relation Age of Onset Diabetes Mother Lung cancer Mother Kidney failure Mother Heart disease Father Other Father Family Status - Relation Status Age at Mother Father Reason for Visit and Comments: Med Refill [[id number]] Normal [facility] 36on 07-22-2023 36 Please advise [facility] Refillon 07-22-2023 Refill [id number] Maxwell Starr 1965 M Date Provider Department Center 07/22/2023 FADIA TERRY [facility] INT MED Comprehensiv Family History Problem Relation Age of Onset Diabetes Mother Lung cancer Mother Kidney failure Mother Heart disease Father Other Father Family Status - Relation Status Age at Mother Father Reason for Visit and Comments: Med Refill [[id number]] Normal [facility] Refillon 05-06-2023 Refill [id number] Maxwell Starr 1965 M Date Provider Department Center 05/06/2023 FADIA TERRY [facility] INT MED Comprehensiv Family History Problem Relation Age of Onset Diabetes Mother Lung cancer Mother Kidney failure Mother Heart disease Father Other Father Family Status - Relation Status Age at Mother Father Reason for Visit and Comments: Med Refill [[id number]] Normal [facility] Vital Signs Date Time Vital Sign Value Performing Clinician Facility 08-25-2024 12:51-0500 Diastolic blood pressure 73 mm[Hg] Ernie Pacenta SAND MILL OPERATOR FACING SAND.STANDARD MACHINE STITCHER Work Phone: [facility] 08-25-2024 12:51-0500 Heart rate 66 /min Ernie Pacenta SAND MILL OPERATOR FACING SAND.STANDARD MACHINE STITCHER Work Phone: [facility] 08-25-2024 12:51-0500 SaO2% (BldA) [Mass fraction] 97 % Ernie Pacenta SAND MILL OPERATOR FACING SAND.STANDARD MACHINE STITCHER Work Phone: [facility] 08-25-2024 12:51-0500 Systolic blood pressure 129 mm[Hg] Ernie Pacenta SAND MILL OPERATOR FACING SAND.STANDARD MACHINE STITCHER Work Phone: [facility] 08-22-2024 13:44-0500 Body height 180.3 cm Cris Osegueras DO Work Phone: [facility] 08-22-2024 13:44-0500 Body mass index (BMI) [Ratio] 24.21 kg/m2 Cris Osegueras DO [facility] 08-22-2024 13:44-0500 Body temperature 98.4 [degF] Cris Horanhas DO Work Phone: [facility] 08-22-2024 13:44-0500 Body weight 78.74 kg Cris Horanhas DO Work Phone: [facility] 08-22-2024 13:44-0500 Diastolic blood pressure 70 mm[Hg] Cris Horanhas DO Work Phone: [facility] 08-22-2024 13:44-0500 Heart rate 72 /min Cris Horanhas DO Work Phone: [facility] 08-22-2024 13:44-0500 SaO2% (BldA) [Mass fraction] 98 % Cris Horanhas DO Work Phone: [facility] 08-22-2024 13:44-0500 Systolic blood pressure 122 mm[Hg] Cris Singh DO Work Phone: [facility] 08-09-2024 14:13-0500 Body mass index (BMI) [Ratio] 24.97 kg/m2 Savita Montes De Oca MINE SHIFTER Work Phone: [facility] 08-09-2024 14:13-0500 Body weight 78.93 kg Savita Montes De Oca MINE SHIFTER Work Phone: [facility] 08-09-2024 14:13-0500 Diastolic blood pressure 74 mm[Hg] Savita Montes De Oca MINE SHIFTER Work Phone: [facility] 08-09-2024 14:13-0500 Systolic blood pressure 128 mm[Hg] Savita Montes De Oca MINE SHIFTER Work Phone: [facility] 06-01-2024 13:09-0400 Body height 177.8 cm Paola Garay MD Work Phone: [facility] 06-01-2024 13:09-0400 Body mass index (BMI) [Ratio] 23.39 kg/m2 Paola Garay MD Work Phone: [facility] 06-01-2024 13:09-0400 Body weight 73.94 kg Paola Garay MD Work Phone: [facility] 06-01-2024 13:09-0400 Diastolic blood pressure 68 mm[Hg] Paola Garay MD Work Phone: [facility] 06-01-2024 13:09-0400 Systolic blood pressure 125 mm[Hg] Paola Garay MD Work Phone: [facility] 05-19-2024 12:36-0400 Body height 180.3 cm Cris Singh DO Work Phone: [facility] 05-19-2024 12:36-0400 Body mass index (BMI) [Ratio] 22.79 kg/m2 Cris Singh DO Work Phone: [facility] 05-19-2024 12:36-0400 Body temperature 98.01 [degF] Cris Singh DO Work Phone: [facility] 05-19-2024 12:36-0400 Body weight 74.12 kg Cris Osegueras DO Work Phone: [facility] 05-19-2024 12:36-0400 Diastolic blood pressure 70 mm[Hg] Cris Osegueras DO Work Phone: [facility] 05-19-2024 12:36-0400 Heart rate 83 /min Cris Singh DO Work Phone: [facility] 05-19-2024 12:36-0400 Respiratory rate 18 /min Cris Singh DO Work Phone: [facility] 05-19-2024 12:36-0400 SaO2% (BldA) [Mass fraction] 97 % Cris Singh DO Work Phone: [facility] 05-19-2024 12:36-0400 Systolic blood pressure 130 mm[Hg] Cris Singh DO Work Phone: [facility] 05-12-2024 14:09-0400 Body height 177.8 cm Savita Montes De Oca MINE SHIFTER Work Phone: [facility] 05-12-2024 14:09-0400 Body mass index (BMI) [Ratio] 23.56 kg/m2 Savita Montes De Oca MINE SHIFTER Work Phone: [facility] 05-12-2024 14:09-0400 Body weight 74.48 kg Savita Montes De Oca MINE SHIFTER Work Phone: [facility] 05-12-2024 14:09-0400 Diastolic blood pressure 68 mm[Hg] Savita Montes De Oca MINE SHIFTER Work Phone: [facility] 05-12-2024 14:09-0400 Heart rate 70 /min Savita Montes De Oca MINE SHIFTER Work Phone: [facility] 05-12-2024 14:09-0400 SaO2% (BldA) [Mass fraction] 97 % Savita Montes De Oca MINE SHIFTER Work Phone: [facility] 05-12-2024 14:09-0400 Systolic blood pressure 130 mm[Hg] Savita Montes De Oca MINE SHIFTER Work Phone: [facility] Healthcare Encounters Encounter Date Encounter Type Care Provider Facility Start: 08-25-2024 End: 08-25-2024 Patient encounter procedure Ernie Rankin SAND MILL OPERATOR FACING SAND.STANDARD MACHINE STITCHER Work Phone: [facility] [place] Comment on above: Spinal stenosis of c ervical region (Primary Dx) Start: 08-25-2024 End: 08-25-2024 ambulatory ERNIE RANKIN Facility:[facility] Start: 08-25-2024 End: 08-25-2024 Subsequent hospital visit by physician Susi Huerta J1-4 Work Phone: Radiology Comment on above: Spinal stenosis, lum bar region with neurogenic claudication [M48.062] Start: 08-22-2024 End: 08-22-2024 Office outpatient visit 25 minutes Cris Singh DO Work Phone: 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, subsequent encounter (Primary Dx); Localized osteoarthritis of lumbar spine; Intractable chronic post-traumatic headache; Meniere's disease of both ears; Tobacco abuse; Glaucoma of both eyes, unspecified glaucoma type Start: 08-22-2024 End: 08-22-2024 ambulatory [facility] Start: 08-09-2024 End: 08-09-2024 Office outpatient visit 25 minutes Savita Montes De Oca MINE SHIFTER Work Phone: [facility] Comment on above: Lumbar radiculopathy (Primary Dx); Degeneration of intervertebral disc of lumbosacral region with discogenic back pain and lower extremity pain; Weakness of right lower extremity; Cervical spinal stenosis; Weakness of right upper extremity; Chronic daily headache; Polyneuropathy; Chronic right shoulder pain; Vertigo Start: 08-09-2024 End: 08-09-2024 ambulatory SAVITA MONTES DE OCA Not Available Start: 07-15-2024 End: 07-20-2024 Chart abstracting Unk Pcp (Hist) Neurology Start: 07-02-2024 End: 07-03-2024 Refill Cris Singh DO Work Phone: [facility] Internal Medicine - Family Medicine Comment on above: Intractable chronic post-traumatic headache Start: 06-27-2024 End: 06-27-2024 ambulatory aLlitha Vela MD Facility:[facility] Start: 06-16-2024 End: 06-17-2024 Telephone encounter Tamica Recinos [facility] Internal Medicine - Family Medicine Start: 06-13-2024 End: 06-13-[address] [facility] Internal Medicine - Family Medicine Comment on above: Intractable chronic post-traumatic headache Start: 06-01-2024 End: 06-01-2024 Office outpatient new 45 minutes Paola Garay MD Work Phone: [facility] Comment on above: Bilateral tinnitus ( Primary Dx); Asymmetric SNHL (sensorineural hearing loss); Imbalance Start: 06-01-2024 End: 06-01-2024 ambulatory PAOLA GARAY Not Available Start: 05-30-2024 End: 05-30-2024 Refill Cris Singh DO Work Phone: [facility] Internal Medicine - Family [...] 25 minutes Cris Singh DO [facility] Phone: [facility] Comment on above: Intractable chronic post-traumatic headache (Primary Dx); Localized osteoarthritis of lumbar spine; Glaucoma of both eyes, unspecified glaucoma type; Spondylosis of cervical spine Start: 05-19-2024 End: 05-19-2024 ambulatory [facility] Start: 05-16-2024 End: 05-16-2024 ambulatory Lalitha Vela MD Facility: [facility] Start: 05-12-2024 End: 05-12-2024 Office outpatient visit 25 minutes Savita Quinton MINE SHIFTER Work Phone: [employer] [address] Comment on above: Lumbar radiculopathy (Primary Dx); Weakness of right lower extremity; Polyneuropathy; Weakness of right upper extremity; Chronic right shoulder pain; Vertigo Start: 05-12-2024 End: 05-12-2024 Bamboo flowsheet Savita Quinton MINE SHIFTER Work Phone: [facility] [place] [address] Start: 05-12-2024 End: 05-12-2024 Bamboo flowsheet Savita Quinton MINE SHIFTER Work Phone: [facility] [place] [address] Start: 05-12-2024 End: 05-16-2024 Telephone encounter Savita Kaplanoll MINE SHIFTER Work Phone: [facility] [employer] [address] Start: 05-12-2024 End: 05-12-2024 ambulatory SAVITA QUINTON Not Available Start: 05-11-2024 End: 05-11-2024 Refill Cris Singh DO Work Phone: [facility] Comment on above: Localized osteoarthr itis of lumbar spine Start: 05-10-2024 End: 05-10-2024 Patient encounter procedure Deanna Mejia DO Work Phone: [employer] [address] Comment on above: Cervical radiculopat hy (Primary Dx); Weakness of right upper extremity; Carpal tunnel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 MRI lumbar spine report 02/18/24: Moderate left foraminal narrowing at L1-2 Moderate canal stenosis at L3-4 and mild to moderate bilateral foraminal stenosis Moderate canal stenosis at L4-5 and moderate to severe bilateral foraminal stenosis MRI cervical spine report 06/24/24: C2-C3: Mild right foramen narrowing secondary to uncovertebral joint spurring. No significant narrowing of the central canal or left foramen. No appreciable disc bulging or significant facet arthropathy. C3-C4: Marked central canal and bilateral foramen narrowing. Moderate diffuse disc bulging without disc height reduction. Uncovertebral joint spurring bilaterally. Mild right, moderate-marked left degenerative facet arthropathy. C4-C5: Moderate central canal narrowing with slight flattening of the cord. Moderate-marked right foramen narrowing, marked left foramen narrowing. Mild diffuse disc bulging without significant disc height reduction. Uncovertebral joint spurring. Mild right, moderate-marked left degenerative facet arthropathy. C5-C6: No significant central canal narrowing. Moderate right, marked left foramen narrowing. Mild diffuse disc bulging without disc height reduction. Mild degenerative facet arthropathy, left greater than right. C6-C7: No significant central canal narrowing. Moderate-marked foramen narrowing bilaterally. Mild diffuse disc bulging and moderate disc height reduction. Uncovertebral joint spurring and mild degenerative facet arthropathy bilaterally. C7-T1:. Mild central canal narrowing. Moderate marked foramen narrowing bilaterally. Mild diffuse disc bulging without disc height reduction. Uncovertebral joint spurring and degenerative facet arthropathy. Disposition: Based on triage, recommend patient be scheduled with surgical BRITTNY in person for exam to see if patient is myelopathic. No lumbar injections tried Spine Xrays prior to appt: yes Please make sure patient imaging is available for review Lois Medeiros PA-C Patient name: Maxwell Starr Are you being referred by a Center for Spine Health Provider or Pain Management Provider at [facility]? No If answer is YES please schedule directly with surgeon, triage does not need to be completed. Is this a self-referral No If not, who is the Referring Provider Dr. Kinza Caba's office referring the patient to be seen in Neuro Surg for Spinal stenosis. Is this a 2nd opinion from another spine surgeon? No Were you offered surgery? No MRI/CT/myelogram within 12 months? Yes If NO , please refer to medical spine or PCP to complete above imaging, triage does not need to be completed If YES, please ask for the name/address of the facility where the MRI/CT/myelogram was completed: MRI Lumbar (07/05/24), MRI Cervical (06/23/24) [facility] [address] [place] [address] MRI/CT/myelogram viewable in Epic: No If not, please provide [phone] to fax in imaging reports for review. Also, please inform patient to hand carry imaging disc to appointment. XR (spine) within 12 months: No If YES, please ask for the name/address of the facility where the XR was completed: Dr. Stephenson's patients: Have you had previous EMG/Nerve Conduction Study, Ultrasound, or MRI for these same symptoms? If YES, please ask for the name/address of the facility where they were completed: Requested provider (First and Last name): any Are you interested in a virtual visit if offered? Yes 1. Where are you having symptoms related to this visit? Back pain Yes LBP (severe) Leg pain No R ankle pain Arm pain Yes R arm & shoulder Neck pain Yes moderate pain 2. Are you having any of the following symptoms: Difficulty walking Yes Numbness Yes fingers of both hands Weakness Yes both hands Trouble using your hands? drop things 3. Have you had any injections or physical therapy in the last 12 months? Yes If YES then please ask for the name/address of the facility where the injections and/or physical therapy was completed [place]: [place] [address] Currently working with insurance for injection approval Have you tried any other kinds of non-surgical treatments in the last 12 months? (For example: NSAIDS, muscle relaxants, analgesics, oral steroids, Chiropractor, Acupuncture): Lyrica, Darcy Back & Body, Meloxicam, Topiramate 4. Are you currently taking daily prescribed narcotic medications for your current symptoms (For example Oxycodone, Hydrocodone, Tramadol, Morphine, Other)? Yes, [place] 5. Have you had previous spinal surgery for this same symptoms? No If YES please ask for the name of facility/address of where the surgery was completed: Additional Comments [phone] documented in this encounter [facility] 07-15-2024 Note HNO ID: [id number] Author: ?, ?, ? Service: ? Author Type: ? Type: Progress Notes Filed: 07/20/2024 22:06 Note Text: Patient name: Maxwell Starr Are you being referred by a Center for Spine Health Provider or Pain Management Provider at [facility]? No If answer is YES please schedule directly with surgeon, triage does not need to be completed. Is this a self-referral No If not, who is the Referring Provider Dr. Kinza Caba's office referring the patient to be seen in Neuro Surg for Spinal stenosis. Is this a 2nd opinion from another spine surgeon? No Were you offered surgery? No MRI/CT/myelogram within 12 months? Yes If NO , please refer to medical spine or PCP to complete above imaging, triage does not need to be completed If YES,? please ask for the name/address of the facility where the MRI/CT/myelogram was completed: MRI Lumbar (07/05/24), MRI Cervical (06/23/24) [facility] [address] [place] [address] MRI/CT/myelogram viewable in Epic: No If not, please provide [phone] to fax in imaging reports for review. Also, please inform patient to hand carry imaging disc to appointment. XR (spine) within 12 months: No If YES,? please ask for the name/address of the facility where the XR was completed: Dr. Stephenson's patients: Have you had previous EMG/Nerve Conduction Study, Ultrasound, or MRI for these same symptoms? If YES,? please ask for the name/address of the facility where they were completed: Requested provider (First and Last name): any Are you interested in a virtual visit if offered? Yes 1. Where are you having symptoms related to this visit? Back pain Yes LBP (severe) Leg pain No R ankle pain Arm pain Yes R arm AND shoulder Neck pain Yes moderate pain 2. Are you having any of the following symptoms: Difficulty walking Yes Numbness Yes fingers of both hands Weakness Yes both hands Trouble using your hands? drop things 3. Have you had any injections or physical therapy in the last 12 months? Yes If YES then please ask for the name/address of the facility where the injections and/or physical therapy was completed PT: [facility] [address] [place] [address] Currently working with insurance for injection approval Have you tried any other kinds of non-surgical treatments in the last 12 months? (For example: NSAIDS, muscle relaxants, analgesics, oral steroids, Chiropractor, Acupuncture): Lyrica, Darcy Back AND Body, Meloxicam, Topiramate 4. Are you currently taking daily prescribed narcotic medications for your current symptoms (For example Oxycodone, Hydrocodone, Tramadol, Morphine, Other)? Yes, [place] 5. Have you had previous spinal surgery for this same symptoms? No If YES? please ask for the name of facility/address of where the surgery was completed: Additional Comments [phone] [facility] 06-16-2024 Miscellaneous Notes Patient needs a letter stating that you have been treating him and he is unable to work for child support. Message noted. A letter is in his chart documented in this encounter [facility] 06-16-2024 Telephone encounter Note Patient needs a letter stating that you have been treating him and he is unable to work for child support. [facility] 06-16-2024 Telephone encounter Note Message noted. A letter is in his chart [facility] 06-01-2024 History of Presen t illness Narrative Subjective Patient ID: Maxwell Starr is a 58 y.o. male who presents [...] of colostomy reversal 10/16/2020 Hyperglycemia 08/21/2022 Hyperlipidemia ([facility]) 08/21/2022 Hypokalemia 08/21/2022 Multiple fractures of ribs, left side, initial encounter for closed fracture 06/29/2022 Oropharyngeal dysphagia 06/29/2022 Overweight 08/21/2022 Perforated diverticulum 04/23/2020 Purpura ([facility]) 08/21/2022 TBI (traumatic brain injury) ([facility]) 02/15/2024 Urinary retention 06/29/2022 Well adult health check 08/21/2022 Resolved Ambulatory Problems Diagnosis Date Noted No Resolved Ambulatory Problems Past Medical History: Diagnosis Date B12 deficiency Cataracts, bilateral Glaucoma ([facility]) Meniere's disease Smoker Traumatic brain injury ([facility]) Past Surgical History: Procedure Laterality Date CT [...] facilitate vestibular rehab documented in this encounter [facility] 05-25-2024 History of Presen t illness [...] Type A tympanogram documented in this encounter [facility] 05-19-2024 History of Presen t illness Narrative IM PROGRESS NOTE Patient - Maxwell Starr Age - 58 y.o. - 1965 ASSESSMENT [...] know what his pressures are. Sees the sales administrator in several weeks for recheck. As cataracts [...] Testing No results found. Cris Singh DO., [facility] Office: [phone] documented in this encounter [facility] 05-16-2024 Telephone encounter Note Reviewed, thank you. [facility] 05-16-2024 Miscellaneous Notes Reviewed, thank you. Note is routed to you and in media Notes have been requested. Should be in faxes. Can you please request the neurosurgery note for me to review? The patient was seen by Kinza Caba. documented in this encounter [facility] 05-16-2024 Telephone encounter Note Note is routed to you and in media [facility] 05-13-2024 Telephone encounter Note Notes have been requested. Should be in faxes. [facility] 05-12-2024 Telephone encounter Note Can you please request the neurosurgery note for me to review? The patient was seen by Kinza Caba. [facility] 05-12-2024 History of Presen t illness Narrative Images from the original note were not included. Savita Montes De Oca NP Chief Complaint Patient presents with Numbness Extremity Weakness Subjective Maxwell Starr is a 58 y.o. male. HPI The patient presents today for follow up. He had labs and an EMG of the right upper extremity completed for review. He does not drive and receives transportation via his health insurance, [employer]. The patient was evaluated by Dr. Singh ([facility] internal medicine) 04/28/2024. He was evaluated by Dr. Caba (neurosurgery) on 05/09/[address]. [address] Caba referred him to [facility] pain management, and he has a [...] wrist extensors , wrist flexor , and photography assistant strength 4+/5. May be a component of giveway weakness. Reduced range of motion in the right deltoid - patient states this is chronic. LUE strength deltoid , biceps , triceps , wrist extensors , wrist flexor , and photography assistant strength 5/5. RLE strength iliopsoas, quadriceps, tibialis [...] reflex 0. LLE Knee reflex 2+. Coordination: [id number] testing normal. Rapid alternating movements are normal. Gait: Appears antalgic. Review and summary of old records: Orthostatic vital signs at [facility] on 05/12/2024: Negative Laying - blood pressure 120/68, heart rate 72 beats/min Sitting - blood pressure 124/76, heart rate 72 beats/min Standing for 3 minutes - blood pressure 122/84, heart rate 94 beats/min EMG of the right upper extremity at [facility] on 05/10/2024: A remote C8 motor [...] of the lumbar spine without contrast at [facility] on 02/18/2024: At L1-L2, there is a broad-based disc bulge with a left subarticular disc protrusion. There is mild spinal canal stenosis. There is moderate left and moderate right neural foraminal narrowing. At L3-L4, there is a broad-based disc bulge with facet hypertrophy and endplate osteophyte formation. There is [id number]-[id number] bilateral neural foraminal narrowing with moderate spinal [...] brain injury. The patient was evaluated by Kinza Caba DO (neurosurgery) on 05/09/24. I reviewed [...] if needed for new or worsening symptoms. Savita Montes De Oca NP [facility] Advanced Neurology documented in this encounter [facility] 05-12-2024 Instructions Savita Montes De Oca NP - 05/12/2024 2:40 PM EDT - MRI of the cervical spine - Referral to orthopedic surgery documented in this encounter [facility] 05-10-2024 History of Presen t illness Narrative Images from the original note were not included. Reason for Appointment: EMG Patient: Maxwell Starr : 1965 EMG Computer: [employer] Referring Physician: Savita Montes De Oca CNP EMG: [place] pre sales technical engineer: Meliton Burnette RT(R) Office Location: [place] Reason for EMG: c/o pain in right shoulder. No hx of DM. Not on blood thinners Comments: Procedure was explained to the patient who expressed understanding. Patient appeared to have tolerated the test well despite some discomfort due to the nature of the test. documented in this encounter [facility] Evaluation note No assessment inform ation [facility] Work Phone: Evaluation note Diagnosis Cervical radiculopathy- Primary Brachial neuritis or radiculitis nos Weakness of right upper extremity Other musculoskeletal symptoms referable to limbs Carpal tunnel syndrome on right Carpal tunnel syndrome documented in this encounter [facility] HealthcareEvaluation note* Diagnosis Localized osteoarthritis of lumbar spine documented in this encounter [facility]* Diagnosis Localized osteoarthritis of lumbar spine [facility] Diagnosis Lumbar radiculopathy- Primary Thoracic or lumbosacral neuritis or radiculitis, unspecified Weakness of right lower extremity Polyneuropathy Unspecified hereditary and idiopathic peripheral neuropathy Weakness of right upper extremity Other musculoskeletal symptoms referable to limbs Chronic right shoulder pain Pain in joint, shoulder region Vertigo Dizziness and giddiness documented in this encounter [facility] HealthcareEvaluation note* Diagnosis Intractable chronic post-traumatic headache- Primary Localized osteoarthritis of lumbar spine Glaucoma of both eyes, unspecified glaucoma type Spondylosis of cervical spine documented in this encounter [facility]* Diagnosis Sensorineural hearing loss (SNHL) of both ears- Primary Tinnitus, bilateral Unspecified tinnitus Meniere's disease, unspecified laterality documented in this encounter [facility] HealthcareEvaluation note* Diagnosis Intractable chronic post-traumatic headache documented in this encounter [facility]* Diagnosis Bilateral tinnitus- Primary Asymmetric SNHL (sensorineural hearing loss) Sensorineural hearing loss, asymmetrical Imbalance Abnormality of gait documented in this encounter [facility] HealthcareEvaluation note* Diagnosis Intractable chronic post-traumatic headache documented in this encounter [facility]* Diagnosis Spinal stenosis, lumbar region with neurogenic claudication- Primary Cervical stenosis of spinal canal Spinal stenosis in cervical region documented [facility] this [facility] Diagnosis Lumbar radiculopathy- Primary Thoracic or lumbosacral neuritis or radiculitis, unspecified Degeneration of intervertebral disc of lumbosacral region with discogenic back pain and lower extremity pain Weakness of right lower extremity Cervical spinal stenosis Spinal stenosis in cervical region Weakness of right upper extremity Other musculoskeletal symptoms referable to limbs Chronic daily headache Headache Polyneuropathy Unspecified hereditary and idiopathic peripheral neuropathy Chronic right shoulder pain Pain in joint, shoulder region Vertigo Dizziness and giddiness documented in this encounter [facility]* Diagnosis 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, subsequent encounter- Primary Localized osteoarthritis of lumbar spine Intractable chronic post-traumatic headache Meniere's disease of both ears Tobacco abuse Tobacco use disorder Glaucoma of both eyes, unspecified glaucoma type documented in this encounter [facility]* Diagnosis Spinal stenosis, lumbar region with neurogenic claudication Cervical stenosis of spinal canal Spinal stenosis in cervical region documented [facility] Diagnosis Spinal stenosis of cervical region- Primary Spinal stenosis in cervical region documented in this encounter [facility]ructionsNot on filedocumented in this encounterProSelect [facility] SystemInstructionsNot on filedocumented in this encounterProSelect [facility] SystemInstructionsNot on filedocumented in this encounterProSelect [facility] SystemInstructionsNot on filedocumented in this encounterProSelect [facility] InstructionsNot on filedocumented in this encounterSelect [facility] InstructionsNot on filedocumented in this encounterSelect [facility] SystemReason for referral (narrative)* Diagnostic Procedure Only (Routine) - New Request Specialty Diagnoses / Procedures Referred By Georges t Referred To Contact XR IMAGING Diagnoses Cervical stenosis of spinal canal Procedures XR CERV OTHER 4V AP/LAT/FLX/EXT RADEX SPINE CERVICAL 4 OR 5 VIEWS Lois Medeiros PA-C [address] [place] [address] [place] [id number] Referral ID Status Reason Start Date Expiration Date Visits Requested Visits Authorized [id number] New Request Auto-Generat ed Referral 4 08/19/2025 1 1 * Diagnostic Procedure Only (Routine) - New Request Specialty Diagnoses / Procedures Referred By Georges t Referred To Contact XR IMAGING Diagnoses Spinal stenosis, lumbar region with neurogenic claudication Procedures XR LUMBAR MOTION 4V AP/LAT/ FLEX/EXT RADEX SPINE LUMBOSACRAL MINIMUM 4 VIEWS Lois Medeiros PA-C [address] [place] [address] [place] [address] Referral ID Status Reason Start Date Expiration Date Visits Requested Visits Authorized [id number] New Request Auto-Generat ed Referral 4 08/19/2025 1 1 [facility] Diagnostic Procedure Only (Routine) - Closed Specialty Diagnoses / Procedures Referred By Contac t Referred To Contact XR IMAGING Diagnoses Cervical stenosis of spinal canal Procedures XR CERV OTHER 4V AP/LAT/FLX/EXT RADEX SPINE CERVICAL 4 OR 5 VIEWS Lois Medeiros PA-C [address] [place] [address] [place] [address] Referral ID Status Reason Start Date Expiration Date V isits Requested Visits Authorized [id number] Closed Auto-Generate d Referral 07/20/2024 08/19/2025 1 1 * Diagnostic Procedure Only (Routine) - Closed Specialty Diagnoses / Procedures Referred By Contac t Referred To Contact XR IMAGING Diagnoses Spinal stenosis, lumbar region with neurogenic claudication Procedures XR LUMBAR MOTION 4V AP/LAT/ FLEX/EXT RADEX SPINE LUMBOSACRAL MINIMUM 4 VIEWS Lois Medeiros PA-C [address] [place] [address] [place] [address] Referral ID Status Reason Start Date Expiration Date V isits Requested Visits Authorized [id number] Closed Auto-Generate d Referral 07/20/2024 08/19/2025 1 1 [facility] Summary Purpose Family History No Family History [...] and Reason for Visit Chief Complaint r29.898 Reason for Referral Specialty Diagnoses / Procedures Referred By Georges mays Referred To Contact CT IMAGING Diagnoses Spinal stenosis of cervical region Procedures CT CERVICAL SPINE WO IVCON CT CERVICAL SPINE W/O CONTRAST MATERIAL Ernie Rankin, [employer] [address] , [address] [place] [address] Ct Imaging [facility] Referral ID Status Reason Start Date Expiration Date Visits Requested Visits Authorized [id number] New Request Auto-Generat ed Referral 08/25/2024 09/24/2025 1 1 Additional Source Comments (unrecognized sect ion and content) No Status Records FoundNo Status Records FoundNo Status Records FoundNo Status Records FoundNo Status Records FoundNo Status Records FoundNo Status Records FoundNo Status Records FoundNo Status Records FoundNo Status Records Found INFORMATION SOURCE (unrecogn ized section and content) DATE CREATED AUTHOR 11/23/2018 [facility] DATE CREATED AUTHOR AUTHOR'S ORGANIZ ATION 03/11/2019 [facility] DATE CREATED AUTHOR AUTHOR'S ORGANIZ ATION 12/09/2023 [facility] DATE CREATED AUTHOR AUTHOR'S ORGANIZ ATION 12/24/2023 [facility] DATE CREATED AUTHOR AUTHOR'S ORGANIZ ATION 02/25/2024 [facility] DATE CREATED AUTHOR AUTHOR'S ORGANIZ ATION 03/26/2024 [facility] DATE CREATED AUTHOR AUTHOR'S ORGANIZ ATION 07/03/2024 [facility] DATE CREATED AUTHOR AUTHOR'S ORGANIZ ATION 08/15/2024 [facility] DATE CREATED AUTHOR AUTHOR'S ORGANIZ ATION 08/24/[address] [facility] DATE CREATED AUTHOR AUTHOR'S ORGANIZ ATION 08/29/2024 [facility] Care Teams (unrecognized sec tion and content) Team Status: Active Member Role Status Dates NON STAFF Primary Care Provider Active Team Status: Inactive Member Role Status Dates NON STAFF Primary Care Provider Active Start: February 18, 2024 End: February 18, 2024 Deanna Mejia DO Attending Provider Active Start: February 18, 2024 End: February 18, 2024 Supervisor Mill Relationship Specialty Start Date End Date Cris Singh MD [address] [place] [address] PCP - General Internal Medicine 01/04/24 Supervisor Mill Relationship Specialty Start Date End Date Cris Singh MD [address] [place] [address] PCP - General Internal Medicine 01/04/24 Supervisor Mill Relationship Specialty Start Date End Date Cris Singh DO [address] [place] [address] PCP - General Internal Medicine 12/07/23 Supervisor Mill Relationship Specialty Start Date End Date Cris Singh DO [address] [place] [place] [address] PCP - General Internal Medicine 12/07/23 Supervisor Mill Relationship Specialty Start Date End Date Cris Singh MD [address] [place] [address] PCP - General Internal Medicine 01/04/24 Supervisor Mill Relationship Specialty Start Date End Date Cris Singh MD [address] [facility] [facility] [address] PCP - General Internal Medicine 01/04/24 Supervisor Mill Relationship Specialty Start Date End Date Cris Singh MD [address] [place] [address] PCP - General Internal Medicine 01/04/24 Supervisor Mill Relationship Specialty Start Date End Date Cris Singh DO [address] [place] [address] PCP - General Internal Medicine 12/07/23 Supervisor Mill Relationship Specialty Start Date End Date Cris Singh MD [address] [place] [address] PCP - General Internal Medicine 01/04/24 Supervisor Mill Relationship Specialty Start Date End Date Cris Singh DO [address] [place] [address] PCP - General Internal Medicine 12/07/23 Supervisor Mill Relationship Specialty Start Date End Date Cris Singh DO [address] [place] [address] PCP - General Internal Medicine 12/07/23 Supervisor Mill Relationship Specialty Start Date End Date Cris Singh [address] [place] [address] PCP - General Internal Medicine 07/14/24 Kinza Caba DO [address] [place] [address] Referring Neurology 07/14/24 Supervisor Mill Relationship Specialty Start Date End Date Cris Singh MD [address] [place] [address] PCP - General Internal Medicine 01/04/24 Supervisor Mill Relationship Specialty Start Date End Date Cris Singh DO [address] [place] [address] PCP - General Internal Medicine 12/07/23 Supervisor Mill Relationship Specialty Start Date End Date Cris Singh [address] [place] [address] PCP - General Internal Medicine 07/14/24 Kinza Caba DO [address] [place] [address] Referring Neurology 07/14/24 Goals (unrecognized section and content) Goals may be documented in a n alternate section Reason for Visit (unrecogniz ed section and content) Reason Comments Med Refill Reason Comments Numbness Extremity Weakness Reason Comments Headache Continued headaches Reason Onset Date Comments Med Refill 05/30/2024 Reason Comments Meniere's Disease Audio 05/25/24 Reason Onset Date Comments Med Refill 06/13/2024 Reason Comments Extremity Weakness Numbness Headache Reason Comments 3 month recheck Reason Comments Radio Main J1 Specialty Diagnoses / Procedures Referred By Contac t Referred To Contact XR IMAGING Diagnoses Cervical stenosis of spinal canal Procedures XR CERV OTHER 4V AP/LAT/FLX/EXT RADEX SPINE CERVICAL 4 OR 5 VIEWS Lois Medeiros PA-C [address] [place] [address] [place] [id number] Referral ID Status Reason Start Date Expiration Date V isits Requested Visits Authorized [id number] Closed Auto-Generate d Referral 07/20/2024 08/19/2025 1 1 Reason Comments New Patient Source Comments (unrecognize d section and content) In the event this informatio n is protected by the Federal Confidentiality of Alcohol and Drug Abuse Patient Records regulations: The Federal rules restrict any use of the information to criminally investigate or prosecute any alcohol or drug abuse patient.[facility] Center[facility] the event this information is protected by the Federal Confidentiality of Alcohol and Drug Abuse Patient Records regulations: The Federal rules restrict any use of the information to criminally investigate or prosecute any alcohol or drug abuse patient.[facility] CenterIn the event this information is protected by the Federal Confidentiality of Alcohol and Drug Abuse Patient Records regulations: The Federal rules restrict any use of the information to criminally investigate or prosecute any alcohol or drug abuse patient.[facility] FOR RECORDS PERTAINING TO PATIENTS WHO ARE [...] BE BASED ON THE PRIMARY CLINICAL RECORDS. [facility]. provides no warranty or guarantee of the accuracy or completeness of information in this document.
--- NOTE | 2024-08-29 13:20 | P.CN_ITS ---
Consult Note: HPI Data of Consult Patient: known to practice within the last 3 years Consult date: 08/29/24 Requesting Physician: Lalitha Vela MD Primary Care Provider: CRIS SINGH Consult Narrative Reason for consult: neck, low back, right leg, right buttock pain Narrative: 58yom who presents for assessment. continues to have severe low back pain with radiation into right lower buttocks and extremity. imaging shows severe stenosis at l4-5 and l5-s1. recently evaluated by neurosurgery at [facility], who plan to do cervical surgery, but recommended lumbar tfesi and sij injection for low back symptoms. continues in a series of provider directed home exercises >6 weeks, without lasting benefit. uses norco and lyrica. cc:: CC: Lalitha Vela MD Review of Systems ROS Status of ROS 10 or more systems reviewed and unremark able except as noted in history and below [facility] Medical History Enlarged prostate ?N40.0 - Benign prostatic hyperplasia without lower urinary tract symptoms ( ICD-10) Hearing deficit ?H91.90 - Unspecified hearing loss, unspecified ear (ICD-10) Glaucoma ?H40.9 - Unspecified glaucoma (ICD-10) Low back pain ?M54.50 - Low back pain, unspecified (ICD-10) High cholesterol ?E78.00 - Pure hypercholesterolemia, unspecified (ICD-10) Hypertension ?I10 - Essential (primary) hypertension (ICD-10) Social History Little interest or pleasure in doing things: not at all Feeling down, depressed, or hopeless: not at all Meds Home Medications and Allergies Home Medications ?Medication ?Instructions ?Recorded ?Confirmed ?Type atorvastatin 40 mg tablet 40 mg PO DAILY 05/16/24 07/01/24 History cyanocobalamin (vitamin B-12) 2,000 mcg PO DAILY 05/16/24 07/01/24 History 1,000 mcg tablet (Vitamin B-12) meloxicam 15 mg tablet 15 mg PO DAILY 05/16/24 07/01/24 History topiramate 50 mg tablet 50 mg PO BID 05/16/24 07/01/24 History tramadol 50 mg tablet 50 mg PO Q12H 05/16/24 07/01/24 History hydrocodone 5 mg-acetaminophen 325 1 tab PO BID PRN pain #60 tabs 06/27/24 07/01/24 Rx mg tablet pregabalin 75 mg capsule 75 mg PO TID #90 caps 06/27/24 07/01/24 Rx methylprednisolone 4 mg tablets in 4 mg PO DAILY #21 ea 07/01/24 Rx a dose pack (Medrol (Nguyễn)) polyethylene glycol 3350 17 17 g PO DAILY 4 days #68 grams 07/01/24 Rx gram/dose oral powder (Miralax) naloxone 4 mg/actuation nasal 4 mg intranasal Q2M PRN opioid 07/14/24 Rx spray (Narcan) overdose #2 ea pregabalin 100 mg capsule (Lyrica) 100 mg PO TID #90 caps 07/14/24 Rx hydrocodone 7.5 mg-acetaminophen 1 tab PO BID PRN pain #60 tabs 07/15/24 Rx 325 mg tablet hydrocodone 7.5 mg-acetaminophen 1 tab PO BID PRN pain #46 tabs 07/25/24 Rx 325 mg tablet pregabalin 100 mg capsule (Lyrica) 100 mg PO TID #90 caps 08/15/24 Rx hydrocodone 7.5 mg-acetaminophen 1 tab PO BID PRN pain #60 tabs 08/22/24 Rx 325 mg tablet Allergies Allergy/AdvReac Type Severity Reaction Status Date / Time No Known Drug Allergies Allergy Verified 05/16/24 16:04 Exam Narrative Exam Narrative: Psych-alert and oriented x 3. Attentive and appropriate, constitutionally normal, displays normal mood and affect per situation. There are no obvious deficits in memory, reasoning, or intellect.? Skin-no obvious rashes, bruising, erythema noted to the patient's area of pain.? Extremities- extremities are warm with minimal edema and palpable pulses. Lumbar-tenderness to palpation noted in the lumbar spine and paraspinal musculature. Pain is elicited with flexion, extension, and lateral rotation of the lumbar spine. Range of motion is diminished with these motions. Facet loading maneuvers are positive. Strength-noted to be unremarkable with the exception of decreased strength rated at 4 out of 5 in right quadriceps femoris, anterior tibialis. Sensory-no notable sensory deficits in the bilateral lower extremities to touch or pinprick in all dermatomal distributions with the exception to decreased sensation to the right L4, 5, D4ooelozboxx distribution Sacroiliac - tender to palpation over right PSIS. Positive Foreign's on the right. Positive thigh thrust on the right. Coordination remains intact.? Gait remains non-antalgic. Assessment and Plan Assessment and Plan (1) Lumbar stenosis with neurogenic claudication: (2) Sacroiliitis: Plan 58yom who presents for assessment. imaging reviewed, as noted above. given symptoms and imaging, prudent to attempt right l4-5, l5-s1 tfesi under fluoroscopic guidance, as recommended by neurosurgeon. may also benefit from right sij injection under fluoroscopic guidance. he is in agreement. meds reviewed, no changes. follow up after procedure.
== END 2024-08-29 12:20 | disposition home or self-care (01) ==
LOC: PM 12:21
PROVIDERS: PCP Internal Medicine; Visit Provider Anesthesiology
DX: M48.062 Spinal stenosis, lumbar region with neurogenic claudication (principal); M46.1 Sacroiliitis, not elsewhere classified
CPT/HCPCS: G0463

== ENCOUNTER 2024-10-03 08:50 | Day surgery (SDC) | payer OTHER, SELFPAY ==
[2024-10-03 09:20] VITALS: BP 139/84; PULSE 65; TEMP 37; O2SAT 99
[2024-10-03 10:01] VITALS: BP 115/62; PULSE 55; O2SAT 99
[2024-10-03 10:06] VITALS: BP 113/65; PULSE 50; O2SAT 99
[2024-10-03] MEDS: IOHEXOL 240 MG/ML - 10 ML VIAL 24 MG INJ (10:07)
[2024-10-03] MEDS: BUPIVACAINE HCL 0.25% PF 25 MG/10 ML VIAL INJ (10:07)
[2024-10-03] MEDS: LIDOCAINE HCL 2% 400 MG/20 ML MDV 3 ML INJ (10:07)
[2024-10-03] MEDS: 0.9 % SODIUM CHLORIDE 10 ML SYRINGE - SALINE FLUSH INJ (10:07)
[2024-10-03] MEDS: METHYLPREDNISOLONE ACETATE 80 MG/ML VIAL INJ (10:08)
--- NOTE | 2024-10-03 10:09 | P.ON_ITS ---
Date of procedure: 10/03/24 Pre-op diagnosis: Pain due to lumbar stenosis with neurogenic claudication Post-op diagnosis: same as pre-op Procedure: Procedure: Right L4-5, L5-S1 transforaminal epidural steroid injection Medications: Bupivacaine 0.25% 2cc, lidocaine 2% 1cc, depomedrol 80mg The patient was seen and examined in the preoperative holding area.? Informed consent was obtained and placed on the chart.? Patient was brought to the medical procedure unit and placed in the prone position where a timeout was completed verifying the correct patient, procedure site, position, and planned special equipment using sterile aseptic technique.? Under direct fluoroscopic visualization a 25-gauge Quincke tipped spinal needle was advanced to the designated neural foramen where contrast dye was injected to show adequate spread.? The needle was inserted at level right L4-5. There was no evidence of vascular or adverse uptake.? Epidural spread was appreciated.? The above- mentioned injectate was then placed in a 1.5 mL aliquot preceded by negative aspiration.? The needle was removed. The needle was inserted and the procedure repeated at level right L5-S1.? The surgery site was covered.? Patient was taken to the postprocedural recovery area and monitored for an appropriate length of time before found suitable for discharge in the accompaniment of a responsible adult. Anesthesia: Local Surgeon: Lalitha Vela Pathology: none sent Condition: stable Disposition: no change
== END 2024-10-03 10:31 | disposition home or self-care (01) ==
LOC: SURGOUT 08:50
PROVIDERS: PCP Internal Medicine; Visit Provider Anesthesiology
DX: M48.062 Spinal stenosis, lumbar region with neurogenic claudication (principal)
CPT/HCPCS: 64483; 64484; J0665; J1010; Q9966

== ENCOUNTER 2024-10-12 12:19 | Outpatient (OUT) | payer OTHER, SELFPAY ==
--- OUTSIDE RECORDS SUMMARY | 2024-10-12 12:24 | XMS_ITS | CCD ---
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 Dictated by : BRANDO HUIZAR MD This examination was interpreted and the report reviewed and electronically signed by: BRANDO HUIZAR MD on Aug 25 2024 2:16PM EST [facility] Radiology Study observation (narrative) [facility] XR CERVICAL 4V AP/LAT/FLX/EX Ton 08-25-2024 [...] intact. COMBINED IMPRESSION: Degenerative changes as described. Conduit Mechanic: PSCB Transcribe Date/Time: Aug 25 2024 2:15P Dictated by : BRANDO HUIZAR MD This examination was interpreted and the report reviewed and electronically signed by: BRANDO HUIZAR MD on Aug 25 2024 2:16PM EST [id number] Normal [facility] XR LUMBAR 4V AP/LAT/ FLEX/EX Ton 08-25-2024 [...] intact. COMBINED IMPRESSION: Degenerative changes as described. Conduit Mechanic: [facility] Transcribe Date/Time: Aug 25 2024 2:15P Dictated by : BRANDO HUIZAR MD This examination was interpreted and the report reviewed and electronically signed by: BRANDO HUIZAR MD on Aug 25 2024 2:16PM EST [id number] Normal [facility] XR Lumbar spine Views W flex ion [...] facet hypertrophy. The sacroiliac joints are intact. [facility] DIVISION OF RADIOLOGY Provider, [facility] [place] - 08/25/2024 * * *Final Report* * [...] COMBINED IMPRESSION IMPRESSION: Degenerative changes as described. Conduit Mechanic: PSCB Transcribe Date/Time: Aug 25 2024 2:15P Dictated by : BRANDO HUIZAR MD This examination was interpreted and the report reviewed and electronically signed by: BRANDO HUIZAR MD on Aug 25 2024 2:16PM [facility] Radiology Study observation (narrative) [facility] MR BRAIN W AND WO CONTRAST [...] MRI B rain & IAC W/WO at [facility]. Please call patient to schedule. Auditory function testson Right Ear: Mild to moderate sensorineural hearing loss above 2K Hz. Left Ear: Mild to moderate sensorineural hearing loss above 1K Hz. [facility] EMG 1 Extremeityon Very mild C8 radiculopathy on the right Mild carpal tunnel syndrome on the right No clear explanation for right shoulder pain [facility] NVC 5-6 Nerveson 05-10-2024 Very mild C8 radiculopathy on the right Mild carpal tunnel syndrome on the right No clear explanation for right shoulder pain [facility] Refillon 03-24-2024 Refill [id number] Bee Harris 1965 Date Provider Department Center 03/24/2024 [id number] [facility] MED Comprehensiv Family History Problem Relation Age of Onset Diabetes Mother Lung cancer Mother Kidney failure Mother Heart disease Father Other Father Family Status - Relation Status Age at Mother Father Reason for Visit and Comments: Med Refill [[id number]] Normal [facility] 36on 02-23-2024 36 Refill request for [...] fracture Oropharyngeal dysphagia Overweight Perforated diverticulum [facility] ([facility]) Urinary retention Normal [facility] Refillon 02-22-2024 Refill [id number] Bee Harris 1965 M Date Provider Department Center 02/22/2024 [id number] [facility] Comprehensiv Family History Problem Relation Age of Onset Diabetes Mother Lung cancer Mother Kidney failure Mother Heart disease Father Other Father Family Status - Relation Status Age at Mother Father Reason for Visit and Comments: Med Refill [[id number]] Normal [facility] XR pre/post mri xrayon 02-17 XR pre/post mri xray [facility] [place] [address] [place] [address] MRI Report Signed Patient: Bee Harris MR#: [id number] : 1965 Acct:[id number] Age/Sex: 58 / M ADM Date: 02/18/24 Loc: [facility] Room: Type: [facility] Attending Dr: Deanna Mejia DO Copies to: Deanna Mejia DO Ordering Provider: Deanna Mejia DO Date of Service: 02/18/24 MR/MR lumbar spine wo con: [id number] ([id number]) XR/XR pre/post mri xray: LUMBAR PRES MR [...] Cain Trinidad M.D.02/18/2024 4:45 PM Dictation Location: [place] [address] Transcribed By: [facility] 02/18/24 4686 Dictated By: Cain Trinidad II, MD 02/18/24 1628 Signed By: 02/18/24 1645 Normal [facility] MR BRAIN WO CONTon [...] Maurer MD on 12/23/2023 9:31 AM Normal [facility] US ABDOMEN LMTDon 12-23-2023 US ABDOMEN [...] Chopra MD on 12/23/2023 1:10 PM Normal [facility] CBC AND AUTO DIFFon 12-07-19 ABSOLUTE BASOPHIL 0.1 X10E9/L Normal 0.0-0.2 [facility] Comment on above: Performed By: #### [place], 17[address]-9, TSHR, CBCA, 2132-9 #### [facility] ([id number]) [address], [address] [place] [address] ABSOLUTE NEUTROPHIL 3.2 X10E9/L Normal 1.5-6.6 [facility] Comment on above: Performed By: #### C TEJAS, 06315-4, TSHR, CBCA, 2132-04 #### [facility] ([id number]) [address], [address] [place] [address] Basophils/100 WBC (Bld) 0.9 % Normal [facility] Comment on above: Performed By: #### C TEJAS, 00983-0, TSHR, CBCA, 2132-04 #### [facility] ([id number]) [address], [address] [place] [address] Eosinophils (Bld) [#/Vol] 0.0 10*3/uL Normal 0.0-0.4 [facility] Comment on above: Performed By: #### C TEJAS, 77394-1, TSHR, CBCA, 2132-04 #### [facility] ([id number]) [address], [address] [place] [address] Eosinophils/100 WBC (Bld) 0.7 % Normal [facility] Comment on above: Performed By: #### C TEJAS, 87831-7, TSHR, CBCA, 2132-04 #### [facility] ([id number]) [address], [address] [place] [address] Erythrocyte distribution width (RBC) [Ratio] 13.9 % Normal 11.5-15.0 [facility] Comment on above: Performed By: #### C TEJAS, 54541-0, TSHR, CBCA, 2132-04 #### [facility] ([id number]) [address], [address] [place] [address] Hematocrit (Bld) [Volume fraction] 48.0 % Normal 39-49 [facility] Comment on above: Performed By: #### C MP, 10828-6, TSHR, CBCA, 2132-04 #### [facility] ([id number]) [address], [address] [place] [address] Hemoglobin (Bld) [Mass/Vol] 16.4 g/dL Normal 13.0-17.0 [facility] Comment on above: Performed By: #### C TEJAS, 35268-1, TSHR, CBCA, 2132-04 #### [facility] ([id number]) [address], [facility] [address] [place] [address] Lymphocytes (Bld) [#/Vol] 1.6 10*3/uL Normal 1.0-3.5 [facility] Comment on above: Performed By: #### C TEJAS, 71481-2, TSHR, CBCA, 2132-04 #### [facility] ([id number]) [address], [address] [place] [address] Lymphocytes/100 WBC (Bld) 28.7 % Normal [facility] Comment on above: Performed By: #### C TEJAS, 07397-6, TSHR, CBCA, 2132-04 #### [facility] ([id number]) [address], [address] [place] [address] MCH (RBC) [Entitic mass] 34.9 pg High 27-34 [facility] Comment on above: Performed By: #### C MP, 31777-6, TSHR, CBCA, 2132-04 #### [facility] ([id number]) [address], [address] [place] [address] MCHC (RBC) [Mass/Vol] 34.2 g/dL Normal 32-36 [facility] Comment on above: Performed By: #### C TEJAS, 97290-8, TSHR, CBCA, 2132-04 #### [facility] ([id number]) [address], [address] [place] [address] MCV (RBC) [Entitic vol] 102 fL High 80-100 [facility] Comment on above: Performed By: #### C TEJAS, 69244-8, TSHR, CBCA, 2132-04 #### [facility] ([id number]) [address], [address] [place] [address] Monocytes (Bld) [#/Vol] 0.6 10*3/uL Normal 0-0.9 [facility] Comment on above: Performed By: #### C TEJAS, 41161-1, TSHR, CBCA, 2132-04 #### [facility] ([id number]) [address], [address] [place] [address] Monocytes/100 WBC (Bld) 10.8 % Normal [facility] Comment on above: Performed By: #### Mayela LAZARO, 43263-0, TSHR, CBCA, 2132-04 #### [facility] ([id number]) [address], [facility] [address] [place] [address] Neutrophils/100 WBC (Bld) 58.9 % Normal [facility] Comment on above: Performed By: #### C TEJAS, 34875-2, TSHR, CBCA, 2132-04 #### [facility] ([id number]) [address], [address] [place] [address] Platelet mean volume (Bld) [Entitic vol] 8.9 fL Normal 7-12 [facility] Comment on above: Performed By: #### C TEJAS, 71835-2, TSHR, CBCA, 2132-04 #### [facility] ([id number]) [address], [address] [place] [address] Platelets (Bld) [#/Vol] 95 10*3/uL Low 150-450 [facility] Comment on above: Performed By: #### C TEJAS, 74289-0, TSHR, CBCA, 2132-04 #### [facility] ([id number]) [address], [address] [place] [address] RBC COUNT 4.70 X10E12/L Normal 4.10-5.70 [facility] Comment on above: Performed By: #### C TEJAS, 20104-6, TSHR, CBCA, 2132-04 #### [facility] ([id number]) [address], [address] [place] [address] WBC (Bld) [#/Vol] 5.4 10*3/uL Normal 4.0-11.0 [facility] Comment on above: Performed By: #### C TEJAS, 23604-1, TSHR, CBCA, 2132-04 #### [facility] ([id number]) [address], [address] [place] [address] CBC auto differentialon 05-0 Basophils (Bld) [#/Vol] 0.1 10*3/uL [facility] Basophils/100 WBC (Bld) 0.9 % P [facility] Eosinophils (Bld) [#/Vol] 0.0 10*3/uL [facility] Eosinophils/100 WBC (Bld) 0.7 % [facility] Erythrocyte distribution width (RBC) [Ratio] 13.9 % 11.5 - 15.0 % [facility] Hematocrit (Bld) [Volume fraction] 48.0 % 39 - 49 % [facility] Hemoglobin (Bld) [Mass/Vol] 16.4 g/dL 13.0 - 17.0 g/dL [facility] Interpretation and review of laboratory results Abnormal [facility] Lymphocytes (Bld) [#/Vol] 1.6 10*3/uL [facility] Lymphocytes/100 WBC (Bld) 28.7 % [facility] MCH (RBC) [Entitic mass] 34.9 pg High 27 - [address] [facility] MCHC (RBC) [Mass/Vol] 34.2 g/dL 32 - 36 g/dL P [facility] MCV (RBC) [Entitic vol] 102 fL High 80 - 100 fL [facility] Monocytes (Bld) [#/Vol] 0.6 10*3/uL [facility] Monocytes/100 WBC (Bld) 10.8 % P [facility] Neutrophils (Bld) [#/Vol] 3.2 10*3/uL [facility] Neutrophils/100 WBC (Bld) 58.9 % [facility] Platelet mean volume (Bld) [Entitic vol] 8.9 fL 7 - [address] [facility] Platelets (Bld) [#/Vol] 95 10*3/uL Low P [facility] RBC (Bld) [#/Vol] 4.70 10*6/uL [facility] WBC corrected for nucl RBC Auto (Bld) [#/Vol] 5.4 [facility] COMPREHENSIVE METABOLIC PANE Alejandro 12-07-2023 Albumin [Mass/Vol] 3.8 g/dL Normal 3.2-5.3 [facility] Comment on above: Performed By: #### C TEJAS, 41165-7, TSHR, CBCA, 2132-04 #### [facility] ([id number]) [address], [address] [place] [address] ALP [Catalytic activity/Vol] 89 U/L Normal 39-130 [facility] Comment on above: Performed By: #### C TEJAS, 46321-9, TSHR, CBCA, 2132-04 #### [facility] ([id number]) [address], [address] [place] [address] ALT [Catalytic activity/Vol] 33 U/L Normal 0-40 [facility] Comment on above: Performed By: #### C TEJAS, 24121-2, TSHR, CBCA, 2132-04 #### [facility] ([id number]) [address], [address] [place] [address] Anion gap [Moles/Vol] 10 mmol/L Normal 5-15 [facility] Comment on above: Performed By: #### C TEJAS, 63055-1, TSHR, CBCA, 2132-04 #### [facility] ([id number]) [address], [address] [place] [address] AST [Catalytic activity/Vol] 58 U/L High 0-41 [facility] Comment on above: Performed By: #### C TEJAS, 02065-1, TSHR, CBCA, 2132-04 #### [facility] ([id number]) [address], [address] [place] [address] Bilirubin [Mass/Vol] 0.7 mg/dL Normal 0.3-1.2 [facility] Comment on above: Performed By: #### C TEJAS, 18236-3, TSHR, CBCA, 2132-04 #### [facility] ([id number]) [address], [address] [place] [address] Calcium [Mass/Vol] 8.9 mg/dL Normal 8.5-10.5 [facility] Comment on above: Performed By: #### C TEJAS, 85192-4, TSHR, CBCA, 2132-04 #### [facility] ([id number]) [address], [address] [place] [address] Chloride [Moles/Vol] 107 mmol/L Normal 98-109 [facility] Comment on above: Performed By: #### C TEJAS, 21943-7, TSHR, CBCA, 2132-04 #### [facility] ([id number]) [address], [address] [place] [address] CO2 [Moles/Vol] 26 mmol/L Normal 22-32 [facility] Comment on above: Performed By: #### C MP, 48111-4, TSHR, CBCA, 2132-04 #### [facility] ([id number]) [address], [address] [place] [address] Creatinine [Mass/Vol] 0.89 mg/dL Normal 0.60-1.30 [facility] Comment on above: Result Comment: METH OD TRACEABLE TO IDMS STANDARD Performed By: #### C TEJAS, 22279-3, TSHR, CBCA, 2132-04 #### [facility] ([id number]) [address], [address] [place] [address] eGFR (CKD-EPI) NON-RACE DEPENDENT >90 Normal >59 [facility] Comment on above: Result Comment: Reported eGFR is based on the CKD-EPI 2020 equation that does not use a race coefficient. Performed By: #### C TEJAS, 22773-8, TSHR, CBCA, 2132-04 #### [facility] ([id number]) [address], [address] [place] [address] Glucose [Mass/Vol] 93 mg/dL Normal 65-99 [facility] Comment on above: Performed By: #### C TEJAS, 71806-3, TSHR, CBCA, 2132-04 #### [facility] ([id number]) [address], [address] [place] [address] Potassium [Moles/Vol] 3.7 mmol/L Normal 3.5-5.0 [facility] Comment on above: Performed By: #### C TEJAS, 85079-7, TSHR, CBCA, 2132-04 #### [facility] ([id number]) [address], [address] [place] [address] Protein [Mass/Vol] 6.6 g/dL Normal 6.0-8.0 [facility] Comment on above: Performed By: #### C TEJAS, 41019-9, TSHR, CBCA, 2132-04 #### [facility] ([id number]) [address], [address] [place] [address] Sodium [Moles/Vol] 143 mmol/L Normal 134-146 [facility] Comment on above: Performed By: #### C TEJAS, 13656-6, TSHR, CBCA, 2132-04 #### [facility] ([id number]) [address] [place] [address] Urea nitrogen [Mass/Vol] 10 mg/dL Normal 5-23 [facility] Comment on above: Performed By: #### C MP, 93666-2, TSHR, CBCA, 2132-04 #### [facility] ([id number]) [address] [facility], [address] [place] [address] Cobalamin (Vitamin B12) [Mas s/Vol]on 12-07-[address] [facility] Comprehensive metabolic pane alejandro 12-07-2023 Albumin [Mass/Vol] 3.8 g/dL 3.2 - 5.3 g/dL [facility] ALP [Catalytic activity/Vol] 89 U/L 39 - 130 U/L [facility] ALT No additional P-5'-P [Catalytic activity/Vol] 33 U/L 0 - 40 U/L [facility] Anion gap [Moles/Vol] 10 mmol/L 5 - 15 mmol/L [facility] AST [Catalytic activity/Vol] 58 U/L High 0 - 41 U/L [facility] Bilirubin [Mass/Vol] 0.7 mg/dL 0.3 - 1 .2 mg/dL [facility] Calcium [Mass/Vol] 8.9 mg/dL 8.5 - 10. 5 mg/dL [facility] Chloride [Moles/Vol] 107 mmol/L 98 - 10 9 mmol/L [facility] CO2 [Moles/Vol] 26 mmol/L 22 - 32 mmol/L [facility] Creatinine [Mass/Vol] 0.89 mg/dL 0.60 - 1.30 mg/dL [facility] Comment on above: METHOD TRACEABLE TO IDMS STANDARD eGFR (CKD-EPI)non-race dependent - PINF [facility] Comment on above: Reported eGFR is based on the CKD-EPI 2020 equation that does not use a race coefficient. Glucose [Mass/Vol] 93 mg/dL 65 - 99 mg/dL [facility] Potassium [Moles/Vol] 3.7 mmol/L 3.5 - 5.0 mmol/L [facility] Protein [Mass/Vol] 6.6 g/dL 6.0 - 8.0 g/dL [facility] Sodium [Moles/Vol] 143 mmol/L 134 - 146 mmol/L [facility] Urea nitrogen [Mass/Vol] 10 mg/dL 5 - 23 mg/dL [facility] Lipid 1996 panelon 4 Cholesterol [Mass/Vol] 103 mg/dL Low 150 - 200 mg/dL [facility] Cholesterol in HDL [Mass/Vol] 63 mg/dL 39 - PINF mg/dL [facility] Comment on above: HDL <40 mg/dL - High Risk HDL > or = 40mg/dL- Desirable HDL >60 mg/dL - Negative Risk Cholesterol in LDL [Mass/Vol] 5 mg/dL NINF - 130 mg/dL [facility] Comment on above: LDL <100 mg/dL - Desirable LDL >160 mg/dL - High Risk Cholesterol in VLDL [Mass/Vol] 35 mg/dL High 0 - 30 mg/dL [facility] Cholesterol.total/Judie sterol in HDL [Mass ratio] 1.6 {ratio} 1.0 - 5.[address] [facility] Triglyceride [Mass/Vol] 173 mg/dL High 27 - 150 mg/dL [facility] Cholesterol [Mass/Vol] 103 mg/dL Low 150-200 [facility] Comment on above: Performed By: #### [place] MP, 79294-2, TSHR, CBCA, 2132-04 #### [facility] ([id number]) [address] [place] [address] Cholesterol in HDL [Mass/Vol] 63 mg/dL Normal >39 [facility] Comment on above: Result Comment: HDL <40 mg/dL - High Risk HDL > or = 40mg/dL- Desirable HDL >60 mg/dL - Negative Risk Performed By: #### C TEJAS, 31539-6, TSHR, CBCA, 2132-04 #### [facility] ([id number]) [address], [address] [place] [address] Cholesterol in LDL [Mass/Vol] 5 mg/dL Normal <130 [facility] Comment on above: Result Comment: LDL <100 mg/dL - Desirable LDL >160 mg/dL - High Risk Performed By: #### C TEJAS, 26270-6, TSHR, CBCA, 2132-04 #### [facility] ([id number]) [address], [address] [place] [address] Cholesterol in VLDL [Mass/Vol] 35 mg/dL High 0-30 [facility] Comment on above: Performed By: #### C TEJAS, 88094-9, TSHR, CBCA, 2132-04 #### [facility] ([id number]) [address], [address] [place] [address] CHOLESTEROL:HDL 1.6 Normal 1.0-5.0 [facility] Comment on above: Performed By: #### C TEJAS, 81422-6, TSHR, CBCA, 2132-04 #### [facility] ([id number]) [address], [address] [place] [address] Triglyceride [Mass/Vol] 173 mg/dL High 27-150 [facility] Comment on above: Performed By: #### C TEJAS, 92714-5, TSHR, CBCA, 2132-04 #### [facility] ([id number]) [address] [facility] [address], [address] [place] [address] No Panel Informationon 12-06 Interpretation and review of laboratory results Abnormal [facility] TSH WITH REFLEXon 12-07-2023 TSH 1.69 uIU/mL Normal 0.49-4.67 [facility] Comment on above: Performed By: #### C MP, 15890-0, TSHR, CBCA, 2132-04 #### [facility] ([id number]) [address] [address], [address] [place] [address] TSH with Reflexon 12-07-2023 TSH Qn 1.69 m[IU]/L [facility] VITAMIN B12on 12-07-2023 Cobalamin (Vitamin B12) [Mass/Vol] 337 pg/mL Normal 180-914 [facility] Comment on above: Performed By: #### C TEJAS, 65818-3, TSHR, CBCA, 2132-04 #### [facility] ([id number]) [address], [address] [place] [address] Vitamin B12on 12-07-2023 Cobalamin (Vitamin B12) [Mass/Vol] 337 pg/mL 180 - 914 pg/mL [facility] 36on 08-31-2023 36 Please advise Normal [facility] Refillon 08-31-2023 Refill [id number] Bee Harris 1965 M Date Provider Department Center 08/31/2023 [id number], MANI [facility] INT MED Comprehensiv Family History Problem Relation Age of Onset Diabetes Mother Lung cancer Mother Kidney failure Mother Heart disease Father Other Father Family Status - Relation Status Age at Mother Father Reason for Visit and Comments: Med Refill [[id number]] Normal [facility] 36on 07-22-2023 36 Please advise [facility] 07-22-2023 Refill [id number] Bee Harris 1965 M Date Provider Department Center 07/22/2023 480-DELL [facility] MED Comprehensiv Family History Problem Relation Age of Onset Diabetes Mother Lung cancer Mother Kidney failure Mother Heart disease Father Other Father Family Status - Relation Status Age at Mother Father Reason for Visit and Comments: Med Refill [[id number]] [facility] 05-06-2023 Refill [id number] Bee Harris 1965 M Date Provider Department Center 05/06/2023 [id number] SCHREIBER [facility] INT MED Comprehensiv Family History Problem Relation Age of Onset Diabetes Mother Lung cancer Mother Kidney failure Mother Heart disease Father Other Father Family Status - Relation Status Age at Mother Father Reason for Visit and Comments: Med Refill [[id number]] [facility] Vital Signs Date Time Vital Sign Value Performing Clinician Facility 10-11-2024 09:32-0400 Diastolic blood pressure 82 mm[Hg] Jus Wisdom MD Work Phone: [facility] 10-11-2024 09:32-0400 Heart rate 67 /min Jus Wisdom MD Work Phone: [facility] 10-11-2024 09:32-0400 Systolic blood pressure 133 mm[Hg] Jus Wisdom MD Work Phone: [facility] 09-26-2024 15:41-0500 Body mass index (BMI) [Ratio] 23.1 kg/m2 Savita Alcantara LIFE TRAINER Work Phone: [facility] 09-26-2024 15:41-0500 Body weight 73.03 kg Savita Alcantara LIFE TRAINER Work Phone: [facility] 09-26-2024 15:41-0500 Diastolic blood pressure 80 mm[Hg] Savita Alcantara LIFE TRAINER Work Phone: [facility] 09-26-2024 15:41-0500 Heart rate 72 /min Savita Alcantara LIFE TRAINER Work Phone: [facility] 09-26-2024 15:41-0500 SaO2% (BldA) [Mass fraction] 96 % Savita Alcantara LIFE TRAINER Work Phone: [facility] 09-26-2024 15:41-0500 Systolic blood pressure 128 mm[Hg] Savita Alcantara LIFE TRAINER Work Phone: [facility] 08-25-2024 12:51-0500 Diastolic blood pressure 73 mm[Hg] Ernie Pacenta OUTREACH EDUCATOR.BAIL AGENT Work Phone: [facility] 08-25-2024 12:51-0500 Heart rate 66 /min Ernie Pacenta OUTREACH EDUCATOR.BAIL AGENT Work Phone: [facility] 08-25-2024 12:51-0500 SaO2% (BldA) [Mass fraction] 97 % Ernie Pacenta OUTREACH EDUCATOR.BAIL AGENT Work Phone: [facility] 08-25-2024 12:51-0500 Systolic blood pressure 129 mm[Hg] Ernie Pacenta OUTREACH EDUCATOR.BAIL AGENT Work Phone: [facility] 08-22-2024 13:44-0500 Body height 180.3 cm Cris Singh DO Work Phone: [facility] [employer] [facility] 08-22-2024 13:44-0500 Body mass index (BMI) [Ratio] 24.21 kg/m2 Cris Osegueras DO Work Phone: [facility] [employer] 08-22-2024 13:44-0500 Body temperature 98.4 [degF] Cris Osegueras DO Work Phone: [facility] [employer] 08-22-2024 13:44-0500 Body weight 78.74 kg Cris Osegueras DO Work Phone: [facility] [employer] 08-22-2024 13:44-0500 Diastolic blood pressure 70 mm[Hg] Cris [facility]as [facility] 08-22-2024 13:44-0500 Heart rate 72 /min Cris [facility]as [facility] 08-22-2024 13:44-0500 SaO2% (BldA) [Mass fraction] 98 % Cris Ana Rosas DO Work Phone: [facility] 08-22-2024 13:44-0500 Systolic blood pressure 122 mm[Hg] Cris Singh DO Work Phone: [facility] 08-09-2024 14:13-0500 Body mass index (BMI) [Ratio] 24.97 kg/m2 Savita Alcantara LIFE TRAINER Work Phone: [facility] 08-09-2024 14:13-0500 Body weight 78.93 kg Savita Alcantara LIFE TRAINER Work Phone: [facility] 08-09-2024 14:13-0500 Diastolic blood pressure 74 mm[Hg] Savita Alcantara LIFE TRAINER Work Phone: [facility] 08-09-2024 14:13-0500 Systolic blood pressure 128 mm[Hg] Savita Alcantara LIFE TRAINER Work Phone: [facility] 06-01-2024 13:09-0400 Body height 177.8 cm Paola Garay MD Work Phone: [facility] 06-01-2024 13:09-0400 Body mass index (BMI) [Ratio] 23.39 kg/m2 Paola Garay MD Work Phone: [facility] 06-01-2024 13:09-0400 Body weight 73.94 kg Paola Garay MD Work Phone: [facility] 06-01-2024 13:09-0400 Diastolic blood pressure 68 mm[Hg] Paola Garay MD Work Phone: [facility] 06-01-2024 13:09-0400 Systolic blood pressure 125 mm[Hg] Paola Garay MD Work Phone: [facility] 05-19-2024 12:36-0400 Body height 180.3 cm Cris Singh DO Work Phone: [facility] 05-19-2024 12:36-0400 Body mass index (BMI) [Ratio] 22.79 kg/m2 Cris Singh DO Work Phone: [facility] 05-19-2024 12:36-0400 Body temperature 98.01 [degF] Cris Singh DO Work Phone: [facility] 05-19-2024 12:36-0400 Body weight 74.12 kg Cris Osegueras DO Work Phone: [facility] [employer] [facility] 05-19-2024 12:36-0400 Diastolic blood pressure 70 mm[Hg] Cris Osegueras DO Work Phone: [facility] 05-19-2024 12:36-0400 Heart rate 83 /min Cris Osegueras DO Work Phone: [facility] 05-19-2024 12:36-0400 Respiratory rate 18 /min Cris Osegueras DO Work Phone: [facility] 05-19-2024 12:36-0400 SaO2% (BldA) [Mass fraction] 97 % Cris Singh DO Work Phone: [facility] 05-19-2024 12:36-0400 Systolic blood pressure 130 mm[Hg] Cris Singh DO Work Phone: [facility] 05-12-2024 14:09-0400 Body height 177.8 cm Savita Alcantara LIFE TRAINER Work Phone: [facility] 05-12-2024 14:09-0400 Body mass index (BMI) [Ratio] 23.56 kg/m2 Savita Alcantara LIFE TRAINER Work Phone: [facility] 05-12-2024 14:09-0400 Body weight 74.48 kg Savita Alcantara LIFE TRAINER Work Phone: [facility] 05-12-2024 14:09-0400 Diastolic blood pressure 68 mm[Hg] Savita Alcantara LIFE TRAINER Work Phone: [facility] 05-12-2024 14:09-0400 Heart rate 70 /min Savita Alcantara LIFE TRAINER Work Phone: [facility] 05-12-2024 14:09-0400 SaO2% (BldA) [Mass fraction] 97 % Savita Alcantara LIFE TRAINER Work Phone: [facility] 05-12-2024 14:09-0400 Systolic blood pressure 130 mm[Hg] Savita Alcantara LIFE TRAINER Work Phone: [facility] 04-28-2024 14:56-0400 Body height 180.3 cm Cris Osegueras DO Work Phone: [facility] 04-28-2024 14:56-0400 Body mass index (BMI) [Ratio] 22.9 kg/m2 Cris Horanhas DO Work Phone: [facility] 04-28-2024 14:56-0400 Body temperature 97.81 [degF] Cris Horanhas DO Work Phone: [facility] [employer] [facility] 04-28-2024 14:56-0400 Body weight 74.48 kg Cris Horanhas DO Work Phone: [facility] 04-28-2024 14:56-0400 Diastolic blood pressure 70 mm[Hg] Cris Horanhas DO Work Phone: [facility] [employer] [facility] 04-28-2024 14:56-0400 Heart rate 75 /min Cris Horanhas DO Work Phone: [facility] [employer] [facility] 04-28-2024 14:56-0400 Respiratory rate 18 /min Cris Horanhas DO Work Phone: [facility] 04-28-2024 14:56-0400 SaO2% (BldA) [Mass fraction] 98 % Cris Osegueras DO Work Phone: [facility] [employer] [facility] 04-28-2024 14:56-0400 Systolic blood pressure 120 mm[Hg] Cris Horanhas DO Work Phone: [facility] [employer] [facility] 03-08-2024 13:49-0400 Body height 180.3 cm Cris Osegueras DO Work Phone: [facility] 03-08-2024 13:49-0400 Body mass index (BMI) [Ratio] 24.13 kg/m2 Cris Osegueras DO Work Phone: [facility] 03-08-2024 13:49-0400 Body temperature 98.2 [degF] Cris Horanhas DO Work Phone: [facility] 03-08-2024 13:49-0400 Body weight 78.47 kg Cris Osegueras DO Work Phone: [facility] 03-08-2024 13:49-0400 Diastolic blood pressure 60 mm[Hg] Cris Horanhas DO Work Phone: [facility] 03-08-2024 13:49-0400 Heart rate 72 /min Cris Osegueras DO Work Phone: [facility] 03-08-2024 13:49-0400 SaO2% (BldA) [Mass fraction] 97 % Cris Osegueras DO Work Phone: [facility] 03-08-2024 13:49-0400 Systolic blood pressure 110 mm[Hg] Cris Osegueras DO Work Phone: [facility] 12-29-2023 11:25-0400 Body height 180.3 cm Cris Osegueras DO Work Phone: [facility] 12-29-2023 11:25-0400 Body mass index (BMI) [Ratio] 22.98 kg/m2 Cris Osegueras DO Work Phone: [facility] 12-29-2023 11:25-0400 Body temperature 97.81 [degF] Cris Horanhas DO Work Phone: [facility] 12-29-2023 11:25-0400 Body weight 74.75 kg Cris Osegueras DO Work Phone: [facility] 12-29-2023 11:25-0400 Diastolic blood pressure 68 mm[Hg] Cris Horanhas DO Work Phone: [facility] 12-29-2023 11:25-0400 Heart rate 73 /min Cris Singh DO Work Phone: [facility] 12-29-2023 11:25-0400 Respiratory rate 18 /min Cris Singh DO Work Phone: [facility] 12-29-2023 11:25-0400 SaO2% (BldA) [Mass fraction] 97 % Cris Singh DO Work Phone: [facility] 12-29-2023 11:25-0400 Systolic blood pressure 126 mm[Hg] Cris Osegueras DO Work Phone: [facility] 12-07-2023 13:33-0400 Body height 180.3 cm Cris Singh DO Work Phone: [facility] 12-07-2023 13:33-0400 Body mass index (BMI) [Ratio] 22.93 kg/m2 Cris Singh DO Work Phone: [facility] 12-07-2023 13:33-0400 Body temperature 98.01 [degF] Cris Singh DO Work Phone: [facility] 12-07-2023 13:33-0400 Body weight 74.57 kg Cris Singh DO Work Phone: [facility] 12-07-2023 13:33-0400 Diastolic blood pressure 80 mm[Hg] Cris Osegueras DO Work Phone: [facility] 12-07-2023 13:33-0400 Heart rate 122 /min Cris Osegueras DO Work Phone: [facility] 12-07-2023 13:33-0400 SaO2% (BldA) [Mass fraction] 98 % Cris Osegeuras DO Work Phone: [facility] 12-07-2023 13:33-0400 Systolic blood pressure 140 mm[Hg] Cris Singh DO Work Phone: [facility] [employer] System Encounters Encounter Date Encounter Type Care Provider Facility Start: 10-11-2024 End: 10-11-2024 ambulatory Jus Wisdom MD Work Phone: [facility] Start: 10-11-2024 End: 10-11-2024 Patient encounter status Jus Wisdom MD Work Phone: [facility] Start: 10-11-2024 End: 10-11-2024 Telephone encounter Jus Wisdom MD Work Phone: [facility] Start: 10-11-2024 End: 10-11-2024 Office outpatient new 45 minutes Jus Wisdom MD Work Phone: [facility] Comment on above: Spinal stenosis of c ervical region (Primary Dx); Cervical spondylosis with myelopathy Start: 10-11-2024 End: 10-11-2024 Subsequent hospital visit by physician Ct [facility] Edwin (I-Stat) CT Scan [facility] Comment on above: Spinal stenosis of c ervical region [M48.02] Start: 09-29-2024 End: 09-29-2024 Refill Ayana Brown [facility] Comment on above: B12 deficiency Start: 09-26-2024 End: 09-26-2024 Office outpatient visit 15 minutes Savita Alcantara LIFE TRAINER Work Phone: [facility] Comment on above: Lumbar radiculopathy (Primary Dx); Degeneration of intervertebral disc of lumbosacral region with discogenic back pain and lower extremity pain; Weakness of right lower extremity; Cervical spinal stenosis; Weakness of right upper extremity; Chronic daily headache; Polyneuropathy; Chronic right shoulder pain; Vertigo Start: 09-26-2024 End: 09-26-2024 ambulatory SAVITA ALCANTARA Not Available Start: 09-26-2024 End: 09-26-2024 Bamboo flowsheet Savita Alcantara LIFE TRAINER Work Phone: [facility] Start: 09-26-2024 End: 09-26-2024 Bamboo flowsheet Savita Alcantara NP Work Phone: [facility] Start: 08-29-2024 End: 08-29-2024 ambulatory Lalitha Vela MD Facility:[facility] Start: 08-25-2024 End: 08-25-2024 Patient encounter procedure Ernie Rankin OUTREACH EDUCATOR.BAIL AGENT Work Phone: [facility] Comment on above: Spinal stenosis of c ervical region (Primary Dx) Start: 08-25-2024 End: 08-25-2024 ambulatory ERNIE RANKIN Facility: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, subsequent encounter (Primary Dx); Localized osteoarthritis of lumbar spine; Intractable chronic post-traumatic headache; Meniere's disease of both ears; Tobacco abuse; Glaucoma of both eyes, unspecified glaucoma type Start: 08-22-2024 End: 08-22-2024 ambulatory [facility] Start: 08-09-2024 End: 08-09-2024 Office outpatient visit 25 minutes Savita Alcantara NP Work Phone: [facility] Comment on above: Lumbar radiculopathy (Primary Dx); Degeneration of intervertebral disc of lumbosacral region with discogenic back pain and lower extremity pain; Weakness of right lower extremity; Cervical spinal stenosis; Weakness of right upper extremity; Chronic daily headache; Polyneuropathy; Chronic right shoulder pain; Vertigo Start: 08-09-2024 End: 08-09-2024 ambulatory SAVITA ALCANTARA Not Available Start: 07-15-2024 End: 07-20-2024 Chart abstracting Unk P[facility] (Hist) Neurology Start: 07-02-2024 End: 07-03-2024 Refill Cris Singh DO Work Phone: [facility] Comment on above: Intractable chronic post-traumatic headache Start: 06-27-2024 End: 06-27-2024 ambulatory Lalitha Vela MD Facility:[facility] Start: 06-16-2024 End: 06-17-2024 Telephone encounter Tamica Recinos [facility] Start: 06-13-2024 End: 06-13-2024 Refill Tamica Recinos [facility] [...] 05-30-2024 Refill Cris Singh DO Work Phone: [facility] Comment on above: Intractable chronic post-traumatic headache Start: 05-25-2024 End: 05-25-2024 Clinical Support Shelby Torres CCC-A Work Phone: [facility] Comment on above: Sensorineural hearin g loss (SNHL) of both ears (Primary Dx); Tinnitus, bilateral; Meniere's disease, unspecified laterality Start: 05-25-2024 End: 05-25-2024 Bamboo flowsheet Shelby Torres CCC-A Work Phone: [facility] Start: 05-25-2024 End: 05-25-2024 Bamboo flowsheet Shelby Torres CCC-A Work Phone: [facility] Start: 05-19-2024 End: 05-19-2024 Office outpatient visit 25 minutes Cris Singh DO Work Phone: [facility] Comment on above: Intractable chronic post-traumatic headache (Primary Dx); Localized osteoarthritis of lumbar spine; Glaucoma of both eyes, unspecified glaucoma type; Spondylosis of cervical spine Start: 05-19-2024 End: 05-19-2024 [facility] Start: 05-16-2024 End: 05-16-2024 ambulatory Lalitha Vela MD Facility: [facility] Start: 05-12-2024 End: 05-12-2024 Office outpatient visit 25 minutes Savita Quinton LIFE TRAINER Work Phone: [facility] [address] Comment on above: Lumbar radiculopathy (Primary Dx); Weakness of right lower extremity; Polyneuropathy; Weakness of right upper extremity; Chronic right shoulder pain; Vertigo Start: 05-12-2024 End: 05-12-2024 Bamboo flowsheet Savita Quinton LIFE TRAINER Work Phone: [facility] [address] Start: 05-12-2024 End: 05-12-2024 Bamboo flowsheet Savita Quinton LIFE TRAINER Work Phone: [facility] [address] Start: 05-12-2024 End: 05-16-2024 Telephone encounter Savita Quinton LIFE TRAINER Work Phone: [facility] [address] Start: 05-12-2024 End: 05-12-2024 ambulatory SAVITA QUINTON Not Available Start: 05-11-2024 End: 05-11-2024 Refill Cris Plummer Marlineholgerromero DO Work Phone: [facility] Comment on above: Localized osteoarthr itis of lumbar spine Start: 05-10-2024 End: 05-10-2024 Patient encounter procedure Deanna Mejia DO Work Phone: [address] Comment on above: Cervical radiculopat hy (Primary Dx); Weakness of right upper extremity; Carpal tunnel syndrome on right Start: 05-10-2024 End: 05-10-2024 Bamboo flowsheet Deanna Mejia DO Work Phone: [facility] Start: 05-10-2024 End: 05-10-2024 Bamboo flowsheet Deanna Mejia DO Work Phone: [facility] Start: 05-10-2024 End: 05-10-2024 ambulatory DEANNA MEJIA Not Available Start: 04-29-2024 End: 04-29-2024 Refill Morena Donald CMA [facility] Comment on above: Intractable chronic post-traumatic headache Start: 04-28-2024 End: 04-28-2024 Office outpatient visit 25 minutes Cris Singh DO Work Phone: [facility] Comment on above: Intractable chronic post-traumatic headache (Primary Dx); Ataxia following other nontraumatic intracranial hemorrhage; 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, subsequent encounter; Glaucoma of both eyes, unspecified glaucoma type; Localized osteoarthritis of lumbar spine Start: 04-28-2024 End: 04-28-2024 ambulatory [facility] Start: 03-30-2024 End: 03-30-2024 Refill Cris Singh DO Work Phone: [facility] Comment on above: Intractable chronic post-traumatic headache Start: 03-24-2024 End: 03-24-2024 Refill Cris Singh DO Work Phone: [facility] Comment on above: B12 deficiency Start: 03-21-2024 End: 03-21-2024 Refill Cris Singh DO Work Phone: [facility] Comment on above: Localized osteoarthr itis of lumbar spine (Primary Dx) Start: 03-08-2024 Patient encounter status Jarrett Gottliebett DO Work Phone: [facility] Start: 03-08-2024 End: 03-08-2024 Office outpatient visit 25 minutes Cris Singh DO [facility] Comment on above: Intractable chronic post-traumatic headache (Primary Dx); Glaucoma of both eyes, unspecified glaucoma type; Cataract of both eyes, unspecified cataract type; B12 deficiency; Meniere's disease of both ears; Traumatic brain injury, 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 with patient surviving, initial encounter ([facility] Start: 03-08-2024 End: 03-08-2024 ambulatory [facility] Start: 02-24-2024 End: 02-24-2024 ambulatory SAVITA ALCANTARA Not Available Start: 02-18-2024 End: 02-18-2024 Patient encounter procedure [facility] [address] Work Phone: Start: 02-18-2024 End: 02-18-2024 ambulatory NON STAFF [facility] Work Phone: Start: 02-16-2024 End: 02-16-2024 ambulatory DEANNA MEJIA Not Available Start: 02-08-2024 End: 02-08-2024 Telephone encounter Cris Kavitha Francisco DO Work Phone: [facility] Start: 01-26-2024 End: 01-26-2024 ambulatory DEANNA MEJIA Not Available Start: 01-18-2024 End: 01-18-2024 ambulatory DEANNA MEIJA Not Available Start: 12-29-2023 End: 12-29-2023 ambulatory [facility] Start: 12-29-2023 End: 12-29-2023 Office outpatient visit 25 minutes Cris Singh DO Work Phone[facility] Comment on above: 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, subsequent encounter (Primary Dx); Meniere's disease of both ears; Cataract of both eyes, unspecified cataract type; Localized osteoarthritis of lumbar spine; B12 deficiency Start: 12-22-2023 End: 12-23-2023 ambulatory CRIS L FRANCISCO [facility] Start: 12-07-2023 End: 12-08-2023 ambulatory [facility] Start: 12-07-2023 End: 12-07-2023 Office outpatient new 45 minutes Cris Singh DO Work Phone: [facility] Comment on above: Orthostatic hypotens ion (Primary Dx); Tachycardia; Traumatic brain injury, 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); Lumbar radiculopathy; B12 deficiency; Hyperlipidemia, unspecified hyperlipidemia type; Benign prostatic hyperplasia with lower urinary tract symptoms, symptom details unspecified Start: 12-07-2023 End: 12-07-2023 ambulatory [facility] Start: 12-07-2018 End: 12-07-2018 Patient encounter procedure NONE LISTED REQUEST Facility: Start: 11-22-2018 End: 11-23-2018 Patient encounter procedure Cris Vargasricky Facility:[id number] Start: 09-10-2018 Patient encounter procedure ROXANE MITCHELL Facility:[facility] Procedures Date Procedure Procedure Detail Performing Clinician Start: 10-11-2024 Ct cervical spine w/ o contrast material Ernie Rankin APRN.CNP Work Phone: Start: 08-25-2024 Radex spine cervical 4 or 5 views Lois Medeiros PA-C Work Phone: Start: 08-22-2024 Adult depression screening assessment Cris Singh DO Work Phone: Start: 05-25-2024 AUDITORY FUNCTION TESTS Shelby Torres CCC-A Work Phone: Start: 05-19-2024 Adult depression screening assessment Cris Singh DO Work Phone: Start: 05-10-2024 End: 05-10-2024 Needle emg ea extremty w/paraspinl area complete Savita Alcantraa NP Work Phone: Start: 04-28-2024 Adult depression screening assessment Cris Singh DO Work Phone: Start: 03-08-2024 Follow-up visit Follow-up CRIS SINGH Start: 03-08-2024 Adult depression screening assessment Cris Singh DO Work Phone: Start: 02-18-2024 MR lumbar spine wo con Start: 02-18-2024 XR pre/post mri xray Start: 12-29-2023 Adult depression screening assessment Cris Singh DO Work Phone: Start: 12-07-2023 Ecg routine ecg w/le ast 12 lds w/i&r Cris Singh DO Work Phone: Start: 12-07-2023 Lipid 1996 panel - S jessica or Plasma Unk (Hist) Start: 12-24-2022 Adult depression screening assessment Cris Singh DO Work Phone: Plan of Treatment Date Care Activity Detail Author Start: 12-06-2028 Lipid panel Lipid Screening [facility] Start: 12-06-2026 Diabetes Screening Diabetes Screenin g [facility] Start: 08-25-2025 BP Controlled (<130/80) BP Controlle d (<130/80) [facility] Start: 08-22-2025 Adult BMI Screening Adult BMI Screen ing [facility] Start: 08-22-2025 Depression Screening Depression Scre ening [facility] Start: 08-22-2025 Tobacco Screening Tobacco Screening [facility] Start: 05-19-2025 Adult BMI Screening Adult BMI Screen ing [facility] Start: 05-19-2025 Depression Screening Depression Scre ening [facility] Start: 05-19-2025 Tobacco Screening Tobacco Screening [facility] Start: 04-28-2025 Adult BMI Screening Adult BMI Screen ing [facility] Start: 04-28-2025 Depression Screening Depression Scre ening [facility] Start: 04-28-2025 Tobacco Screening Tobacco Screening [facility] Start: 03-08-2025 Adult BMI Screening Adult BMI Screen ing [facility] Start: 03-08-2025 Depression Screening Depression Scre ening [facility] Start: 03-08-2025 Tobacco Screening Tobacco Screening [facility] Start: 01-24-2025 End: 01-24-2025 Patient encounter procedure 01/24/2025 4:00 PM EDT Office Visit [facility] [address] [place] [address] Savita Alcantara NP [address] [place] [address] [facility] Start: 01-10-2025 End: 01-10-2025 Patient encounter procedure [facility] Comment on above: Post op Start: 12-28-2024 Adult BMI Screening Adult BMI Screen ing [facility] Start: 12-28-2024 Depression Screening Depression Scre ening [facility] Start: 12-28-2024 [facility]ening [facility] Start: 12-06-2024 Adult BMI Screening Adult BMI Screen ing [facility] Start: 12-06-2024 Tobacco Screening [facility] Start: 12-01-2024 End: 12-01-2024 Patient encounter procedure 12/01/2024 2:15 PM EDT Office Visit [facility] [address] [place] [address] Ernie Rankin, OUTREACH EDUCATOR.BAIL AGENT [address] [facility] Mail Code [place] [id number] Post op [facility] Comment on above: Post op Start: 11-16-2024 Subsequent hospital visit by physician 11/16/2024 Hospital Encounter 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], Anemia following surgery [D64.9] [facility] Comment on above: Cervical spinal sten osis [M48.02], Cervical spondylosis with myelopathy [M47.12], Pre-op testing [Z01.818], 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], Anemia following surgery [D64.9] Start: 11-14-2024 End: 11-14-2024 Nursing evaluation of patient and report 11/14/2024 3:00 PM EDT Nurse Visit [facility] [address] [id number] Nancy Vazquez, JUANITA [address] [place] [address] Pre op [facility] Comment on above: Pre op Start: 10-25-2024 End: 10-25-2024 Patient encounter procedure 10/25/2024 3:40 PM EDT Office Visit Spine Surgery [facility] [address] [place] [address] Jus Wisdom MD [address] [place] [address] Pre op Spine Surgery [facility] Comment on above: Pre op Start: 10-25-2024 End: 10-25-2024 ambulatory 10/25/2024 2:45 PM EDT Results Only [facility] [address] [place] [address] Pre op [facility] Comment on above: Pre op Start: 10-25-2024 End: 04-09-2025 STAPHYLOCOCCUS AUREUS & MRSA SCREEN, PCR, NASAL STAPHYLOCOCCUS AUREUS & MRSA SCREEN, PCR, NASAL Lab Routine Cervical spinal stenosis Cervical spondylosis with myelopathy Pre-op testing 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) Anemia following surgery Expected: 10/25/2024, Expires: 04/09/2025 [facility] Comment on above: Expected: 10/25/2024 , Expires: 04/09/2025 Start: 10-25-2024 End: 10-25-2024 Anesthesia consultation 10/25/2024 1:40 PM EDT PAT Pre Anesthesia [address] [place] [address] 1, Pacc [place] [address] [place] [address] Pre op Pre Anesthesia Comment on above: Pre op Start: 10-11-2024 End: 01-10-2025 CBC W Auto Differential panel - Blood COMPLETE BLOOD COUNT AND DIFFERENTIAL Lab Routine Cervical spinal stenosis Cervical spondylosis with myelopathy Pre-op testing 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) Anemia following surgery Expected: 10/11/2024, Expires: 01/10/2025 [facility] Comment on above: Expected: 10/11/2024 , Expires: 01/10/2025 Start: 10-11-2024 End: 01-10-2025 Ferritin [Mass/volume] in Serum or Plasma FERRITIN Lab Routine Cervical spinal stenosis Cervical spondylosis with myelopathy Pre-op testing 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) Anemia following surgery Expected: 10/11/2024, Expires: 01/10/2025 [facility] Comment on above: Expected: 10/11/2024 , Expires: 01/10/2025 Start: 10-11-2024 End: 01-10-2025 Iron and Iron binding capacity panel - Serum or Plasma IRON AND TIBC Lab Routine Cervical spinal stenosis Cervical spondylosis with myelopathy Pre-op testing 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) Anemia following surgery Expected: 10/11/2024, Expires: 01/10/2025 [facility] Comment on above: Expected: 10/11/2024 , Expires: 01/10/2025 Start: 10-11-2024 End: 01-10-2025 RETICULOCYTE, HEMOGLOBIN RETICULOCYTE, HEMOGLOBIN Lab Routine Cervical spinal stenosis Cervical spondylosis with myelopathy Pre-op testing 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) Anemia following surgery Expected: 10/11/2024, Expires: 01/10/2025 [facility] Comment on above: Expected: 10/11/2024 , Expires: 01/10/2025 Start: 09-26-2024 End: 09-26-2024 Patient encounter procedure [facility]ON[facility] Comment on above: Arrived Start: 08-22-2024 End: 08-22-2024 Patient encounter procedure 08/22/2024 2:30 PM EST Office Visit [facility] [address] [place] [address] Cris Singh DO [address] [facility] [place] [address] [facility] Start: 06-15-2024 End: 06-15-2024 Patient encounter procedure 06/15/2024 2:40 PM EST Office Visit [facility] [address] [place] [address] Savita Alcantara NP [address] [place] [phone] [facility] [place] [address] Start: 06-01-2024 End: 06-01-2024 Patient encounter procedure 06/01/2024 1:10 PM EDT Office Visit [facility] [address] [place] [phone] Paola Garay MD [address] [place] [address] [facility] Start: 05-25-2024 End: 05-25-2024 Clinical Support 05/25/2024 2:30 PM EDT Clinical Support [facility] [address] [facility] [address] [place] [phone] Shelby Torres, [facility] [address] [facility] [place] [address] [facility] Start: 05-19-2024 End: 05-19-2024 Patient encounter procedure 05/19/2024 12:30 PM EDT Office Visit [facility] [address] [place] [phone] Cris Singh DO [address] [facility] [place] [address] [facility] Start: 05-17-2024 End: 05-17-2025 MR Cervical spine WO and W contrast IV MR cervical spine w and wo contrast Imaging Routine Weakness of right upper extremity Expected: 05/17/2024 (Approximate), Expires: 05/17/2025 [facility] Work Phone: Comment on above: Expected: 05/17/2024 (Approximate), Expires: 05/17/2025 Start: 05-12-2024 End: 05-12-2024 Patient encounter procedure [facility] Comment on above: Lumbar radiculopathy (Primary Dx); Weakness of right lower extremity; Polyneuropathy; Weakness of right upper extremity Start: 05-10-2024 End: 05-10-2024 Patient encounter procedure 05/10/2024 2:30 PM EDT Procedure Visit [facility] [address] [place] [phone] Deanna Mejia [address] [place] [address] Arrived [facility] Comment on above: Arrived Start: 04-26-2024 End: 04-26-2024 Patient encounter procedure 04/26/2024 2:00 PM EDT Office Visit [facility] [address] [place] [phone] Cris Singh, DO [address] [place] [address] [facility] Start: 04-03-2024 COVID-19 Vaccine ( season) COVID-19 Vaccine ( season) [facility] Start: 04-03-2024 COVID-19 Vaccine ( season) COVID-19 Vaccine ( season) [facility] Start: 04-03-2024 Influenza vaccination N [facility] Start: 03-08-2024 End: 03-08-2024 Patient encounter procedure 03/08/2024 1:45 PM EDT Office Visit [facility] [address] [place] [address] Cris Singh, DO [address] [place] [address] [facility] Start: 12-25-2023 Depression Screening Depression Scre ening 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 Expected: 12/07/2023, Expires: 12/06/2024 [facility] Work Phone: Comment on above: Expected: 12/07/2023 , Expires: 12/06/2024 Start: 04-03-2023 COVID-19 Vaccine () COVID-19 Vaccine () [facility] Start: 2021 Prostate specific antigen measurement Prostate Cancer Screening Discussion [facility] Start: 2016 Administration of varicella zoster vaccine Zoster (Shingles) Vaccine (1 of 2) [facility] Start: 2016 Pneumococcal Vaccine : 50+ (1 of 1 - PCV) Pneumococcal Vaccine: 50+ (1 of 1 - PCV) [facility] Start: 2016 Shingrix Vaccine (1 of 2) Shingrix Vaccine (1 of 2) [facility] Start: 10-28-2011 Screening for malign ant neoplasm of colon [facility] Start: 1985 DTaP,Tdap and Td Vaccines (1 - Tdap) DTaP,Tdap and Td Vaccines (1 - Tdap) [facility] Start: 1985 Hepatitis B Vaccine (1 of 3 - 19+ 3-dose series) Hepatitis B Vaccine (1 of 3 - 19+ 3-dose series) [facility] Start: 1985 Pneumococcal Vaccine : 50+ (1 of 2 - PCV) Pneumococcal Vaccine: 50+ (1 of 2 - PCV) [facility] Start: 1985 Urine microalbumin profile DTaP,Tdap,Td Vaccine (1 - Tdap) [facility] Start: 1984 Annual PCP Team [employer] josefina Disease Visit Annual PCP Team Chronic Disease Visit [facility] Start: 1984 Anxiety Screening Anxiety Screening [facility] Start: 1984 BP Controlled (<130/80) BP Controlle d (<130/80) [facility] Start: 1984 Depression Screening Depression Scre ening [facility] Start: 1984 Hepatitis C screening Hepatitis C Sc reening [facility] Start: 1984 HIV screening HIV Screening [facility] Start: 1966 Screening for malign ant neoplasm of colon [facility] Start: 1966 Tobacco Counseling Tobacco Counselin g GIVTED [facility] End: 09-24-2025 CT Cervical spine WO contrast CT CERVICAL SPINE WO IVCON Radiology Routine Spinal stenosis of cervical region 1 Occurrences starting 08/25/2024 until 09/24/2025 [facility] Work Phone: Comment on above: 1 Occurrences starti ng 08/25/2024 until 09/24/2025 Lamop cervical w/dcm prn spi cord 2/> vert seg CERVICAL LAMINOPLASTY WITH DECOMPRESSION 2 OR MORE SEGMENTS Cervical spinal stenosis Cervical spondylosis with myelopathy Pre-op testing 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) Anemia following surgery KAREN OR POCT EKG POCT EKG ECG Rou vilma Tachycardia 12/07/2023 2:32 PM EDT [facility] REFER FOR ADMIT INTERVIEW REFER FOR ADMIT INTERVIEW Procedures Routine Cervical spinal stenosis Cervical spondylosis with myelopathy Pre-op testing 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) Anemia following surgery Ordered: 10/11/2024 [facility] Work Phone: Comment on above: Ordered: 10/11/2024 End: 08-19-2025 XR CERV OTHER 4V AP/LAT/FLX/EXT XR CERV OTHER 4V AP/LAT/FLX/EXT Radiology Routine Cervical stenosis of spinal canal 1 Occurrences starting 07/20/2024 until 08/19/2025 [facility] Comment on above: 1 Occurrences starti ng 07/20/2024 until 08/19/2025 End: 11-10-2025 XR Cervical spine AP and Lateral XR CERV GENERAL 2V AP/LAT Radiology Routine Cervical spinal stenosis Cervical spondylosis with myelopathy Pre-op testing 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) Anemia following surgery 1 Occurrences starting 10/11/2024 until 11/10/2025 [facility] Comment on above: 1 Occurrences starti ng 10/11/2024 until 11/10/2025 End: 08-19-2025 XR Lumbar spine Views W flexion and W extension XR LUMBAR MOTION 4V AP/LAT/ FLEX/EXT Radiology Routine Spinal stenosis, lumbar region with neurogenic claudication 1 Occurrences starting 07/20/2024 until 08/19/2025 [facility] Work Phone: Comment on above: 1 Occurrences starti ng 07/20/2024 until 08/19/2025 Payers Date Payer Category Payer Self-pay [id number] 2024 Medicaid [id number] 2024 Unknown [id number] 2023 Blue Cross Blue Shield BCBS [id number] 2023 Blue Cross Blue Shie ld Managed Care - Other [facility] [id number]. [id number] 2023 Unknown [id number] 2023 Unknown [id number]. 1.13.693.2. 7.3.874055.315 2022 Medicaid [facility] [id number] 2020 Medicaid [id number]. [id number] 2020 Private Health Insurance [facility] MEDICAID [id number] 2020 Medicaid [id number] 1966 Unknown [id number] 2.16.840.1.594101.3.579.2. 593 1966 Unknown [id number] 2.16.840.1.090005.3.579.2. 593 1966 Unknown [id number] 2.16.840.1.903817.3.579.2. 1285 1966 Unknown [id number] 2.16.840.1.912975.3.579.2. 1285 1966 Unknown [id number] 2.16.840.1.095068.3.579.2. 1285 1966 Unknown [id number] 2.16.840.1.708756.3.579.2. 1285 1966 Unknown [id number] 2.16.840.1.061340.3.579.2. 1285 1966 Unknown [id number] 2.16.840.1.675835.3.579.2. 1285 1966 Unknown [id number] 2.16840.1.052459.3.579.2. 1285 1966 Unknown [id number] 2.16840.1.250324.3.579.2. 1285 1966 Unknown [id number] 2.16840.1.438587.3.579.2. 1285 1966 Unknown [id number] 2.16840.1.141419.3.579.2. 1966 Unknown [id number] 2.16840.1.848849.3.579.2. 1966 Unknown [id number] 2.16840.1.044001.3.579.2. 1966 Unknown [id number] 2.16840.1.939154.3.579.2. 1258 1966 Unknown [id number] 2.16.840.1.073920.3.579.2. 1258 1966 Unknown [id number] 2.16840.1.638209.3.579.2. 1258 1966 Unknown [id number] 2.16840.1.425662.3.579.2. 1259 1966 Unknown [id number] 2.16.840.1.094884.3.579.2. 9 1966 Unknown [id number] 2.16.840.1.895921.3.579.2. 9 1966 Unknown [id number] 2.16.840.1.113540.3.579.2. 1258 1966 Unknown [id number] 2.16.840.1.850160.3.579.2. 1258 1966 Unknown [id number] 2.16.840.1.032405.3.579.2. 1258 1966 Unknown [id number] 2.16.840.1.545404.3.579.2. 1258 1966 Unknown [id number] 2.16.840.1.446899.3.579.2. 1259 1959 Self-pay [id number] 1959 Unknown [id number] Unknown [id number] 2.16.840.1.058933.3.579.2. 531 Social History Date Type Detail Facility Start: 08-20-2020 Tobacco smoking status NMIS Smoker (finding) [facility] Start: 1965 Sex Assigned At Male [facility] Start: 01-18-2024 End: 08-25-2024 Tobacco smoking status [facility] Smokes tobacco daily [facility] History of tobacco use Cigarette Smoker P [facility] Start: 12-07-2023 End: 01-18-2024 Tobacco use and exposure Smokeless tobacco non-user [facility] Start: 12-29-2023 End: 03-08-2024 Alcoholic beverage intake Current drinker of alcohol (finding) [facility] Start: 03-08-2024 End: 10-11-2024 History of Social function [facility] Start: 03-08-2024 End: 10-11-2024 Tobacco use panel [facility] Start: 1965 Sex assigned at Not on file [facility] Start: 05-19-2024 End: 08-22-2024 Alcoholic beverage intake Ex-drinker (finding) [facility] Do you belong to any clubs or organizations such as religion groups, unions, fraternal or athletic groups, or school groups? No [facility] Are you now , , , , never or living with a partner? Never [facility] How hard is it for y ou to pay for the very basics like food, housing, medical care, and heating Somewhat hard [facility] Adolescent depressio n screening assessment [facility] Start: 04-28-2024 Alcohol Comment once a while [facility] Start: 03-08-2015 Sex Male (finding) [facility] Tobacco smoking stat [facility] Tobacco smoking consumption unknown [facility] Goals Date Patient Goal Desired [...] to transition to inpatient rehab. Clinical Notes 12-07-2023 to 10-11-2024 Telephone Encounter - Nancy Vazquez RN - 10/11/2024 4:04 PM EDTTelephone Encounter - Nancy Vazquez RN - 10/11/2024 4:04 PM EDTButtJus MD - 10/11/2024 11:04 AM EDT Note Date & Type Note Facility 10-11-2024 Telephone encounter Note Neuro SPINE CARE COORDINATION SURGERY SCHEDULING Patient accepts surgery date of 11/16/24- with Dr. Wisdom. Planned procedure is C3-5 laminoplasty. PACC will be 10/25/24. [facility] : completed Medications reviewed : Yes}. Meds to be stopped prior to surgery : NSAIDS and Vitamins and supplements. Additional pre op clearances needed : none. Any implanted devices : No. Transplant History No na. Patient will get optimization lab work : Blood Management . Questions answered. Patient verbalizes understanding via teach back. Additional comments : home alone Preoperative Needs Assessment Do you live alone or with someone that can help you? Alone Will you have assistance available at home after your surgery to help with physical activities such a toileting or dressing? Occasionally How many steps do you need to climb to get into your home? 0 Once in your home, how many steps do you need to climb to access your bedroom or bathroom? 0 Do you use a mobility aid for walking/getting around? (note, if more than one type of aid is used, select the one that is used more frequently) Cane Anticipated LOS > 5 days: No Significant home social issues or Current history or past history of substance abuse: No Wheelchair baseline, Homebound baseline, Significant gait instability, or History of significant falls: Yes Thora/lumbar fusion any level planned or 2+ level posterior cervical fusion planned: No Myelopathic or Spine tumor: Yes Probability of non-home discharge disposition : Low [0] Nancy Vazquez RN [facility] Work Phone: 10-11-2024 Miscellaneous Notes Neuro SPINE CARE COORDINATION SURGERY SCHEDULING Patient accepts surgery date of 11/16/24- with Dr. Wisdom. Planned procedure is C3-5 laminoplasty. PACC will be 10/25/24. [facility] : completed Medications reviewed : Yes}. Meds to be stopped prior to surgery : NSAIDS and Vitamins and supplements. Additional pre op clearances needed : none. Any implanted devices : No. Transplant History No na. Patient will get optimization lab work : Blood Management . Questions answered. Patient verbalizes understanding via teach back. Additional comments : home alone Preoperative Needs Assessment Do you live alone or with someone that can help you? Alone Will you have assistance available at home after your surgery to help with physical activities such a toileting or dressing? Occasionally How many steps do you need to climb to get into your home? 0 Once in your home, how many steps do you need to climb to access your bedroom or bathroom? 0 Do you use a mobility aid for walking/getting around? (note, if more than one type of aid is used, select the one that is used more frequently) Cane Anticipated LOS > 5 days: No Significant home social issues or Current history or past history of substance abuse: No Wheelchair baseline, Homebound baseline, Significant gait instability, or History of significant falls: Yes Thora/lumbar fusion any level planned or 2+ level posterior cervical fusion planned: No Myelopathic or Spine tumor: Yes Probability of non-home discharge disposition : Low [0] Nancy Vazquez RN documented in this encounter [facility] 10-11-2024 History of Presen t illness Narrative Images from the original note were not included. SPINE SURGERY NEW PATIENT PCP: Cris Singh DO REFERRING PROVIDER: No referring provider defined for this encounter. Subjective Bee Harris is a 58 year old male who presents for new spine surgery evaluation. Patient reports difficulty balance issues progressively worsening difficulty walking. Numbness in both hands. MRI demonstrates severe stenosis from C3-C5. He is a current 1 pack/day smoker, he is decreasing this. He denies any significant neck pain. He does have a history of a traumatic brain injury. He reaffirms that he is his own DPOA. Denies any significant radicular pain down his arms. AMBULATORY STATUS: Independent Community Distances ANTIPLATELET OR ANTICOAGULATION STATUS: No PREVIOUS CONSERVATIVE TREATMENTS: Nsaids KAREEN for lumbar spine PREVIOUS SPINAL SURGERY: None Major Risk Factors Notable surgical risk factors: Smoking status: Every Day BMI:(No recent BMI available). Obesity Unknown Risk BMI: (No recent BMI available) High: BMI > 40 Moderate: BMI 30-40 Normal: BMI < 30 Diabetes normal High: A1C > 8 Moderate: A1C 7-8 Normal: A1C < 7 Hx of DVT / PE normal High: dx of DVT / PE Normal: no dx of DVT / PE Smoking High Risk Last Status: Every Day High: Current smoker Normal: Non smoker Narcotics Use High Risk High:NarxCare >=300 Moderate: 100-299 Normal: 0-99 Depression Unknown Risk High: PHQ-9 >14 Moderate: PHQ-9 5-14 Normal: PHQ-9 < 5 Data from [facility] Epic on prior therapies: Last PT session: No date on file in last 365 days Last Epidural Steroid Injection: No epidural injection on file for last 365 days Last Spine Surgery: No history of prior spine surgery in search of available [facility] records Objective PHYSICAL EXAM BP 133/82 (BP Site: Right Arm, BP Position: Sitting, BP Cuff Size: Regular Adult) Pulse 67 Spine Exam Drain(s): Incision: Neck No obvious deformity, normal ROM Back No stepoffs/deformities. No tenderness or instability to palpation along spinous processes or paravertebral musculature Upper Extremities UE BICEPS TRICEPS DELTS Wrist Ext Wrist Flex Receiving Manager HI R 5 5 5 5 5 5 5 L 5 5 5 5 5 5 5 Sensation to light touch intact to bilateral upper extremities +2 radial pulse Right: Triceps, Biceps, Brachial invertedreflexic Left: Triceps, Biceps, Brachial normoreflexic Gutiérrez's: + bilaterally Lower Extremities LE Hip Flex Knee Flex Knee Extend Plantarflex Dorsiflex EHL R 5 5 5 4 4 4 L 5 5 5 5 5 5 Sensation intact to light tough in bilateral lower extremities in spn, dpn, sural, saphenous, and tibial nerves. Right: Patellar, Ankle normoreflexic Left: Patellar, Ankle normoreflexic Clonus: 1 beat bilaterally Toe walk unable Heel Walk unable Tandem unable Ambulatory status: Uses a cane for long distance No neurologic changes with hyperextension or hyperflexion of his neck NEURO TESTS: DATA REVIEW [facility] records independently reviewed MRI with severe stenosis at 3445 CT scan with multilevel degenerative changes there is anterior bridging osteophyte at C5 667 Upright x-ray with lordotic overall alignment of the cervical spine Assessment/Plan No diagnosis found. Bee Harris is clinically indicated and wishes to pursue Cervical Laminoplasty at C3-C5 The risks, benefits, and anticipated outcomes of the procedure/treatment/test, the alternatives to the procedure/treatment/test and their risks and benefits, and the roles and tasks of the personnel to be involved were discussed with the patient or the patient s personal provider service representative. Discussed goals of surgery Halt progression of his myelopathic symptoms. No guarantees were offered or implied regarding the outcome of surgery. We discussed that we will not consider any elective lumbar operation until the patient is completely nicotine free. The sole purpose that we are offering operative intervention of cervical spine is that he feels he is getting worse, in the setting of spinal cord compression. We mutually agreed that a motion preserving operation would be more beneficial given the presence of nicotine as such we have mutually agreed that a laminoplasty is the best option. We briefly discussed posterior cervical C3-C6 decompression and fusion We had a long discussion regarding surgical expectations and what I suspect surgery will help with and what it will not We discussed the minimum criteria for elective surgery: A. Imaging fits with history and examination and has surgical correctable findings B. Conservative modalities have been trialed in a meaningful way that have failed to provide relief C. The pain is significant enough to interfere with quality of life, and undergoing an irreversible surgical procedure makes sense to the patient from a symptom severity standpoint A and B were confirmed by me, C was confirmed by the patient. With this in mind it is reasonable to proceed with: Proposed surgery included posterior cervical laminoplasty C3-C5. Risks of surgery were discussed in detail with the patient. Risks of surgery discussed include but are not limited to, the risk of DVT, PE, and/or . Cardiovascular and pulmonary risk, as related to the patient's preoperative clearance and assessment by the perioperative team as well as anesthesia. The risk of neurological injury was discussed in great detail, including discussion of a spectrum of partial dysfunction through complete dysfunction. The risk of nerve root injury was discussed that may result in weakness, paralysis, sensory loss, and/or intractable pain and supplied nerve root that might either be transient and/or permanent in nature. The risk of compressive epidural hematoma and/or compressive epidural abscess was discussed with the patient that may or may not result in transient and/or permanent bowel and bladder dysfunction and/or transient and/or permanent lower extremity dysfunction such as weakness, paralysis, sensory loss, and/or intractable pain. The risk of instability status post surgery was discussed, the risk of superficial and deep infection was discussed. The risk of durotomy, and potential complications of spinal headache, and/or persistent leakage, resulting in the need for further surgery, and/or drain placement was discussed. The risk of no improvement in symptoms despite technically adequate decompression of the compressed structures was discussed in extreme detail. The risk of need for further surgery for any reason was discussed. The risk of complications related to fusion were discussed in detail. The risk of pseudoarthrosis was discussed. The risk of hardware failure including hardware pullout, froilan breakage, screw breakage was discussed. The risk of screw loosening was discussed. The risk of need for further surgery for hardware failure, pseudoarthrosis was discussed. The risk of screw misplacement resulting in radiculopathy or neurological injury was discussed. The risk of need for further surgery to alter trajectory of hardware was discussed. The risk of needing to extend the fusion cephalad and/or caudad and the reasoning behind this was discussed. We discussed my office will only treat acute pain, that is pain lasting from date of surgery to 12 weeks post operatively. If the patient requires pain medication beyond this, my office will not provide narcotic based medications and a referral will be placed to our chronic pain medication providers. Adjacent segment breakdown that may or may not be symptomatic was discussed. No guarantees were offered nor implied regarding final outcome status post surgery or presence or absence of complication perioperatively. After a thorough discussion, the patient had many appropriate questions, all questions were answered to the patient's stated satisfaction. The patient voiced excellent understanding of both the reasoning for offering surgery, the potential complications regarding this particular surgery, and has elected to proceed. 2. Follow up: Following above Imaging Ordered: None The majority of the visit was spent counseling and/or coordinating care for the patient. The patient was counseled regarding cervical myelopathy. Total face to face time was 30 minutes. documented in this encounter [facility] 10-11-2024 History of Presen t illness Narrative Radiology Service Progress Note PATIENT NAME: Bee Harris DATE OF SERVICE: October 11, 2024 TIME: 9:21 AM PATIENT IDENTITY VERIFICATION COMPLETED USING TWO (2) IDENTIFIERS: Name and Date of confirmed by patient verbally. FALL SCREENING: Has the patient had 2 falls in the last year or 1 fall with injury or currently using an Ambulatory Assistive Device (Walker, Cane, Wheelchair, Crutches, etc.)? No PATIENT PRESENTS WITH AN IMPLANTABLE OR ATTACHED POWER LINEWORKER: No RADIOLOGY DEPARTMENT: CT; Exam(s) Completed: Spine PERIPHERAL IV DATA: Not applicable SIGNED BY: RT Maribel(R) October 11, 2024 9:21 AM documented in this encounter [facility] 09-26-2024 History of Presen t illness Narrative Images from the original note were not included. Chief Complaint Patient presents with Extremity Weakness Headache Numbness Subjective Bee Harris is a 58 y.o. male. History of Present Illness The patient presents today for follow-up. He is taking venlafaxine XR 37.5 mg daily at bedtime (prescribed on 08/09/2024) with no reported side effects. He continues to have daily headaches but states these are less severe since venlafaxine was initiated. They have no new accompanying features. They often occur upon waking and persist throughout the day. He reports snoring but denies any known apneic episodes while asleep. He has never been tested for sleep apnea. The patient was evaluated by Ernie Rankin APRN, CNP (spine surgery) at [facility] on 08/25/2024. Per documentation, she recommended obtaining a CT of the cervical spine for surgical consideration. This is scheduled for 10/11/2024 after which the patient has an appointment with Dr. Jus Wisdom ([facility] spine surgery). Ernie Rankin APRN, CNP did not believe the patient was a candidate for elective lumbar spine surgery given his current nicotine use. She recommended smoking cessation. She also recommended consideration of left SI joint injection or L4-L5 TFESI via pain management. The patient reports having lumbar injections scheduled with pain management on 10/03/2024, however, he is unsure what type of injections these are. He continues to take Lyrica and Canton but states, none of that helps. The patient's neck pain and low back pain have been generally unchanged since the prior neurology appointment. He states his back pain can radiate to the left buttock intermittently. It does not radiate down the leg. The patient's distal right lower extremity continues to have numbness/paresthesias. He also has continued weakness in the right upper extremity, right lower extremity, and bilateral hands. His balance has not worsened, and he is using a cane intermittently. He denies saddle anesthesia or bowel/bladder incontinence. He states he will be moving to an assisted living facility soon and has been deemed to have chronic disability. He denies any further new concerns. Review of Systems Constitutional: Negative for [...] suicidal ideas. The patient is not nervous/anxious. Positive for stress Home Medication List acetaminophen 500 MG tablet; Commonly known as: Tylenol atorvastatin 40 MG tablet; Commonly known as: Lipitor bupropion Hcl XL 150 MG tablet; Commonly known as: Wellbutrin XL cyanocobalamin 1000 MCG tablet; Commonly known as: Vitamin B-12 hydrocodone-acetaminophen 7.5-325 MG tablet; Commonly known as: Canton latanoprost 0.005 % ophthalmic solution; Commonly known as: Xalatan meloxicam 15 MG tablet; Commonly known as: Mobic pregabalin 75 MG capsule; Commonly known as: Lyrica topiramate 50 MG tablet venlafaxine XR 37.5 MG 24 hr capsule; Commonly known as: Effexor XR Past Medical History: Diagnosis Date B12 deficiency Carpal tunnel syndrome Cataracts, bilateral Glaucoma (CMS/HCC) History of degenerative disc disease Hyperlipidemia (CMS/HCC) Lumbar radiculopathy Meniere's disease Polyneuropathy Smoker Traumatic brain injury (CMS/[facility]) Past Surgical History: Procedure Laterality Date CT GUIDED TRANSVAGINAL TRANSRECTAL FLUID DRAIN 06/20/2022 CT GUIDED TRANSVAGINAL TRANSRECTAL FLUID DRAIN 06/20/2022 Family History Family history unknown: Yes Social History Tobacco Use Smoking status: Every Day Current packs/day: 1.00 Types: Cigarettes Smokeless tobacco: Never Substance Use Topics Alcohol use: Not Currently Allergies: Patient has no known allergies. Vitals: 09/26/24 1541 BP: 128/80 Pulse: 72 SpO2: 96% Body mass index is 23.1 kg/m . weight: 161 lb Neurologic exam: Mental status and general appearance: Awake and alert with unlabored respirations. Oriented to person, place and time. Recent and remote memory are generally intact. Speech is clear and fluent without aphasia. Speech is non-dysarthric. Attention and concentration are normal. Fund of knowledge is appropriate for level of education. Pleasant. Cranial nerves: CN II: Visual acuity is [...] wrist extensors , wrist flexor , and burglar alarm mechanic strength 4+/5. May be a component of giveway weakness. Reduced range of motion in the right deltoid - patient states this is chronic. LUE strength deltoid , biceps , triceps , wrist extensors , wrist flexor , and burglar alarm mechanic strength 5/5. RLE strength iliopsoas, quadriceps, tibialis anterior, and plantar flexion strength 4+/5. LLE strength iliopsoas, quadriceps, tibialis anterior, and plantar flexion strength 5/5. Tone is normal. Sensory: Sensation is intact to light touch throughout all four extremities. Vibratory sensation is reduced in the distal right lower extremity. Intact in the left lower extremity. Reflexes: RUE biceps reflex 2+ , brachioradialis reflex 2+. LUE biceps reflex 2+ , brachioradialis reflex 2+. RLE knee reflex 0. LLE knee reflex 2+. Coordination: Tzacbn-fv-gdfe testing normal. Rapid alternating movements are normal. Gait: Appears mildly antalgic. Review and summary of old records: MRI of the lumbar spine without contrast at [facility] on 07/05/2024: No abnormal signal in the [...] spine with and without contrast at [facility] on 06/23/2024: Marked central canal narrowing posterior to C3-C4 extending to C4-C5. Flattening and compression posterior to C3 -C4 and C4-C5. No abnormal signal intensity. Multilevel marked and moderate to marked foramen narrowing. Multilevel degenerative disc disease and degenerative facet arthropathy accounting for the above findings. See full report. Orthostatic vital signs at [facility] on 05/12/2024: Negative. EMG of the right upper extremity at [facility] on 05/10/2024: A remote C8 motor [...] of the lumbar spine without contrast at [facility] on 02/18/2024: At L1-L2, there is a broad-based disc bulge with a left subarticular disc protrusion. There is mild spinal canal stenosis. There is moderate left and moderate right neural foraminal narrowing. At L3-L4, there is a broad-based disc bulge with facet hypertrophy and endplate osteophyte formation. There is [id number] bilateral neural foraminal narrowing with moderate spinal [...] (neurosurgery) on 07/11/24 and subsequently referred to [facility] neurosurgery for further evaluation and surgical opinion. He was evaluated by Ernie Rankin APRN, BAIL AGENT on 08/25/24. PLAN: - Follow up with pain management for evaluation and measures to help improve pain and functional ability - Follow up with [facility] spine surgery per their recommendations. Per documentation on 08/25/24, they did not believe the patient was a surgical candidate unless he quits smoking - He is taking meloxicam, Lyrica, and Canton (prescribed by outside provider) Cervical spinal stenosis Weakness of right upper extremity The patient has degenerative disc disease (DDD) of the cervical spine with multilevel central canal and neural foraminal stenosis as identified on MRI from 06/23/24. MRI also identified concern for flattening and compression of the cord at C3-C4 and C4-C5. RUE EMG on 05/10/24 identified a remote C8 motor radiculopathy. The patient reports neck pain, right upper extremity weakness, imbalance, and weakness/reduced sensation in the bilateral hands. I am concerned many of his symptoms could be stemming from cord compression and neural foraminal narrowing in the cervical spine. I believe neurosurgery evaluation is the primary priority. He has established care with [facility] for surgical opinion and was evaluated by Ernie Rankin APRN, BAIL AGENT on 08/25/24. PLAN: - Follow up closely with [facility] spine surgery and pain management. Per chart review, it seems the patient has a CT of the cervical spine scheduled on 10/11/24 with surgical consultation thereafter - He is taking meloxicam, Lyrica, and Canton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 cervical region- Primary Spinal stenosis in cervical region [facility] Diagnosis Orthostatic hypotension- Primary Tachycardia Unspecified tachycardia Traumatic brain injury, 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 with patient surviving, initial encounter ([facility] [place] Lumbar radiculopathy Thoracic or lumbosacral neuritis or radiculitis, unspecified B12 deficiency Hyperlipidemia, unspecified hyperlipidemia type Benign prostatic hyperplasia with lower urinary tract symptoms, symptom details unspecified [facility] Diagnosis 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, subsequent encounter- Primary Meniere's disease of both ears Cataract of both eyes, unspecified cataract type Localized osteoarthritis of lumbar spine B12 deficiency [facility] Diagnosis Intractable chronic post-traumatic headache- Primary Glaucoma of both eyes, unspecified glaucoma type Cataract of both eyes, unspecified cataract type B12 deficiency 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, 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 with patient surviving, initial encounter ([facility] [facility] Diagnosis Localized osteoarthritis of lumbar spine- Primary [facility] Diagnosis B12 deficiency [facility] Diagnosis Intractable chronic post-traumatic headache [facility] Diagnosis Localized osteoarthritis of lumbar spine [facility] Diagnosis Localized osteoarthritis of lumbar spine documented [facility]* Diagnosis Intractable chronic post-traumatic headache- Primary Localized osteoarthritis of lumbar spine Glaucoma of both eyes, unspecified glaucoma type Spondylosis of cervical spine documented [facility]* Diagnosis Intractable chronic post-traumatic headache- Primary Ataxia following other 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, subsequent encounter Glaucoma of both eyes, unspecified glaucoma type Localized osteoarthritis of lumbar spine documented [facility]* Diagnosis Intractable chronic post-traumatic headache documented [facility]* Diagnosis Lumbar radiculopathy- Primary Thoracic [...] Dizziness and giddiness [facility] Diagnosis B12 deficiency [facility]* Diagnosis Spinal stenosis of cervical region- Primary Spinal stenosis in cervical region Cervical spondylosis with myelopathy documented [facility] this encounter [facility] Diagnosis Cervical spinal stenosis- Primary Spinal stenosis in cervical region Cervical spondylosis with myelopathy Pre-op testing Preoperative examination, unspecified 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) Anemia following surgery Anemia, unspecified documented [facility] encounter [facility] Diagnosis Spinal stenosis of cervical region Spinal stenosis in cervical region documented [facility] this encounter [facility] filedocumented in this encounterPro[facility]ructionsNot on filedocumented in this encounterProMed[facility] SystemInstructionsNot on filedocumented in this encounterProMediva [facility] SystemInstructionsNot on filedocumented in this [facility]Pro[facility] InstructionsNot on filedocumented in this [facility] InstructionsNot on filedocumented in this [facility] InstructionsNot on filedocumented in this [facility] InstructionsNot on filedocumented in this [facility] InstructionsNot on filedocumented in this encounterAv[facility] SystemReason for referral (narrative)* Diagnostic Procedure Only (Routine) - New Request Specialty Diagnoses / Procedures Referred By Contac t Referred To Contact XR IMAGING Diagnoses Cervical stenosis of spinal canal Procedures XR CERV OTHER 4V AP/LAT/FLX/EXT RADEX SPINE CERVICAL 4 OR 5 VIEWS Lois Medeiros PA-C [address] [place] [address] [place] [address] Referral ID Status Reason Start Date Expiration Date Visits Requested Visits Authorized [id number] New Request Auto-Generat ed Referral 4 08/19/2025 1 1 * Diagnostic Procedure Only (Routine) - New Request Specialty Diagnoses / Procedures Referred By Contac t Referred To Contact XR IMAGING Diagnoses Spinal stenosis, lumbar region with neurogenic claudication Procedures XR LUMBAR MOTION 4V AP/LAT/ FLEX/EXT RADEX SPINE LUMBOSACRAL MINIMUM 4 VIEWS Lois Medeiros PA-C [address] [place] [address] [place] [address] Referral ID Status Reason Start Date Expiration Date Visits Requested Visits Authorized [id number] New Request Auto-Generat ed Referral 4 08/19/2025 1 1 [facility] for referral (narrative)* Diagnostic Procedure Only (Routine) - Closed Specialty Diagnoses / Procedures Referred By Contac t Referred To Contact XR IMAGING Diagnoses Cervical stenosis of spinal canal Procedures XR CERV OTHER 4V AP/LAT/FLX/EXT RADEX SPINE CERVICAL 4 OR 5 VIEWS Lois Medeiros PA-C [address] [place] [address] [place] [address] Referral ID Status Reason Start Date Expiration Date V isits Requested Visits Authorized [id number] Closed Auto-Generate d Referral 07/20/2024 08/19/2025 1 1 * Diagnostic Procedure Only (Routine) - Closed Specialty Diagnoses / Procedures Referred By Contac t Referred To Contact XR IMAGING Diagnoses Spinal stenosis, lumbar region with neurogenic claudication Procedures XR LUMBAR MOTION 4V AP/LAT/ FLEX/EXT RADEX SPINE LUMBOSACRAL MINIMUM 4 VIEWS Lois Medeiros PA-C [address] [place] [address] [place] [address] Referral ID Status Reason Start Date Expiration Date V isits Requested Visits Authorized [id number] Closed Auto-Generate d Referral 07/20/2024 08/19/2025 1 1 [facility] for referral (narrative)* Consultation (Routine) - Pending Review Specialty Diagnoses / Procedures Referred By Contac t Referred To Contact Neurology Diagnoses 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, subsequent encounter Cris Singh DO [address] [place] [address] Sander Godoy MD [address] [place] [address] Referral ID Status Reason Start Date Expiration Date Visits Requested Visits Authorized [id number] Pending Review Specialty Services Required 12/29/2023 12/28/2024 1 1 * Consultation (Routine) - Pending Review Specialty Diagnoses / Procedures Referred By Contac t Referred To Contact Otolaryngology Diagnoses Meniere's disease of both ears Cris Singh DO [address] [place] [address] Paola Garay MD [address] [place] [address] Referral ID Status Reason Start Date Expiration Date Visits Requested Visits Authorized [id number] Pending Review Specialty Services Required 12/29/2023 12/28/2024 [address] [facility] Summary Purpose Family History Relationship Condition Age [...] Comments 04/23/2020 2:03 AM 04/27/2020 9:19 PM Date Activated Date Inactivated Comments 06/19/2022 6:51 PM 07/12/2022 12:51 PM Date Activated Date Inactivated Comments 10/16/2020 11:21 AM 2020 3:58 PM Date Activated Date Inactivated Comments 04/23/2020 2:03 AM 04/27/2020 9:19 PM Chief Complaint and Reason for Visit Chief Complaint r29.898 Reason for Referral Specialty Diagnoses / Procedures Referred By Contac t Referred To Contact CT IMAGING Diagnoses Spinal stenosis of cervical region Procedures CT CERVICAL SPINE WO IVCON CT CERVICAL SPINE W/O CONTRAST MATERIAL Ernie Rankin, OUTREACH EDUCATOR.BAIL AGENT [address] [place] [address] [place] [address] Referral ID Status Reason Start Date Expiration Date Visits Requested Visits Authorized [id number] New Request Auto-Generat ed Referral 08/25/2024 09/24/2025 1 1 Specialty Diagnoses / Procedures Referred By Contac t Referred To Contact Radiology Diagnoses Traumatic brain injury, 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 Procedures MR brain without contrast Cris Singh DO [address] [place] [address] Referral ID Status Reason Start Date Expiration Date V isits Requested Visits Authorized [id number] Pending Review 12/07/2023 12/06/2024 1 1 Additional Source Comments (unrecognized sect ion and content) No Status Records FoundNo Status Records FoundNo Status Records FoundNo Status Records FoundNo Status Records FoundNo Status Records FoundNo Status Records FoundNo Status Records FoundNo Status Records FoundNo Status Records Found INFORMATION SOURCE (unrecogn ized section and content) DATE CREATED AUTHOR 11/23/2018 [facility] DATE CREATED AUTHOR AUTHOR'S ORGANIZ ATION 03/11/2019 [facility] DATE CREATED AUTHOR AUTHOR'S ORGANIZ ATION 12/09/2023 [facility] DATE CREATED AUTHOR AUTHOR'S ORGANIZ ATION 12/24/[address] [facility] DATE CREATED AUTHOR AUTHOR'S ORGANIZ ATION 02/25/2024 [facility] DATE CREATED AUTHOR AUTHOR'S ORGANIZ ATION 03/26/2024 [facility] DATE CREATED AUTHOR AUTHOR'S ORGANIZ ATION 08/24/2024 [facility] DATE CREATED AUTHOR AUTHOR'S ORGANIZ ATION 08/29/2024 [facility] [facility] DATE CREATED AUTHOR AUTHOR'S ORGANIZ ATION 09/08/2024 [facility] DATE CREATED AUTHOR AUTHOR'S ORGANIZ ATION 09/28/2024 [facility] Special[facility] EPIC Care Teams (unrecognized sec tion and content) Team Status: Active Member Role Status Dates NON STAFF Primary Care Provider Active Team Status: Inactive Member Role Status Dates NON STAFF Primary Care Provider Active Start: February 18, 2024 End: February 18, 2024 Deanna Mejia DO Attending Provider Active Start: February 18, 2024 End: February 18, 2024 Gag Writer Relationship Specialty Start Date End Date Cris Singh MD [address] [place] [address] PCP - General Internal Medicine 01/04/24 Gag Writer Relationship Specialty Start Date End Date Cris Singh MD [address] [place] [address] PCP - General Internal Medicine 01/04/24 Gag Writer Relationship Specialty Start Date End Date Cris Singh MD [address] [place] [address] PCP - General Internal Medicine 01/04/24 Gag Writer Relationship Specialty Start Date End Date Cris Singh MD [address] [place] [address] PCP - General Internal Medicine 01/04/24 Gag Writer Relationship Specialty Start Date End Date Cris Singh MD [address] [place] [address] PCP - General Internal Medicine 01/04/24 Gag Writer Relationship Specialty Start Date End Date Cris Singh MD [address] [place] [address] PCP - General Internal Medicine 01/04/24 Gag Writer Relationship Specialty Start Date End Date Cris Singh DO [address] [place] [address] PCP - General Internal Medicine 12/07/23 Gag Writer Relationship Specialty Start Date End Date Cris Singh [address] [place] [address] PCP - General Internal Medicine 07/14/24 Kinza Caba DO [address] [place] [address] Referring Neurology 07/14/24 Gag Writer Relationship Specialty Start Date End Date Cris Singh MD [address] [place] [address] PCP - General Internal Medicine 01/04/24 Gag Writer Relationship Specialty Start Date End Date Cris Singh DO [address] [place] [address] PCP - General Internal Medicine 12/07/23 Gag Writer Relationship Specialty Start Date End Date Cris Singh [address] [place] [address] PCP - General Internal Medicine 07/14/24 Kinza Cbaa DO [address] [place] [address] Referring Neurology 07/14/24 Gag Writer Relationship Specialty Start Date End Date Cris Singh DO [address] [place] [address] PCP - General Internal Medicine 12/07/23 Gag Writer Relationship Specialty Start Date End Date Cris Singh DO [address] [facility] [place] [address] PCP - General Internal Medicine 12/07/23 Gag Writer Relationship Specialty Start Date End Date Cris Singh DO [address] [place] [address] PCP - General Internal Medicine 12/07/23 Gag Writer Relationship Specialty Start Date End Date Cris Singh DO [address] [place] [address] PCP - General Internal Medicine 12/07/23 Gag Writer Relationship Specialty Start Date End Date Cris Singh DO [address] [place] [address] PCP - General Internal Medicine 12/07/23 Gag Writer Relationship Specialty Start Date End Date Cris Singh DO [address] [place] [address] PCP - General Internal Medicine 12/07/23 Gag Writer Relationship Specialty Start Date End Date Cris Singh DO [address] [place] [address] PCP - General Internal Medicine 12/07/23 Gag Writer Relationship Specialty Start Date End Date Cris Singh DO [address] [place] [address] PCP - General Internal Medicine 12/07/23 Gag Writer Relationship Specialty Start Date End Date Cris Singh DO [address] [place] [address] PCP - General Internal Medicine 12/07/23 Gag Writer Relationship Specialty Start Date End Date Cris Singh MD [address] [place] [address] PCP - General Internal Medicine 01/04/24 Gag Writer Relationship Specialty Start Date End Date Cris Singh MD [address] [place] [address] PCP - General Internal Medicine 01/04/24 Gag Writer Relationship Specialty Start Date End Date Cris Singh [address] [place] [address] PCP - General Internal Medicine 07/14/24 Kinza Caba DO [address] [place] [address] Referring Neurology 07/14/24 Gag Writer Relationship Specialty Start Date End Date Cris Singh [address] [place] [address] PCP - General Internal Medicine 07/14/24 Kinza Caba DO [address] [place] [address] Referring Neurology 07/14/24 Gag Writer Relationship Specialty Start Date End Date Cris Singh [address] [place] [address] PCP - General Internal Medicine 07/14/24 Kinza Caba DO [address] [place] [address] Referring Neurology 07/14/24 Gag Writer Relationship Specialty Start Date End Date Cris Singh [address] [place] [address] PCP - General Internal Medicine 07/14/24 Kinza Caba DO [address] [place] [address] Referring Neurology 07/14/24 Goals (unrecognized section and content) Goals may be documented in a n alternate section Reason for Visit (unrecogniz ed section and content) Reason Comments Numbness Extremity Weakness Reason Comments Meniere's Disease Audio 05/25/24 Reason Onset Date Comments Med Refill 06/13/2024 Reason Comments Extremity Weakness Numbness Headache Reason Comments 3 month recheck Reason Comments Radio Main J1 Specialty Diagnoses / Procedures Referred By Georges t Referred To Contact XR IMAGING Diagnoses Cervical stenosis of spinal canal Procedures XR CERV OTHER 4V AP/LAT/FLX/EXT RADEX SPINE CERVICAL 4 OR 5 VIEWS Lois Medeiros PA-C [address] [place] [address] Xr Imaging [place] [address] Referral ID Status Reason Start Date Expiration Date V isits Requested Visits Authorized [id number] Closed Auto-Generate d Referral 07/20/2024 08/19/2025 1 1 Reason Comments New Patient Reason Comments New Patient Reason Comments discuss test results Headache all day no t been able to sleep. Reason Comments Follow-up Reason Comments Med Refill Reason Comments Med Change Request Reason Onset Date Comments Med Refill 04/29/2024 Reason Comments Headache Continued headaches Reason Comments fmla headache and back Pain scale 7 Reason Onset Date Comments Med Refill 05/30/2024 Reason Comments Extremity Weakness Headache Numbness Reason Onset Date Comments Med Refill 09/29/2024 Reason Comments Consult Reason Comments Radiology CT Specialty Diagnoses / Procedures Referred By Contac t Referred To Contact CT IMAGING Diagnoses Spinal stenosis of cervical region Procedures CT CERVICAL SPINE WO IVCON CT CERVICAL SPINE W/O CONTRAST MATERIAL Ernie Rankin, OUTREACH EDUCATOR.BAIL AGENT [address], Mail [address] [place] [phone] Phone: tel: fax: [facility] [place] [address] Referral ID Status Reason Start Date Expiration Date V isits Requested Visits Authorized [id number] Closed Auto-Generate d Referral 09/29/2024 11/28/2024 1 1 Source Comments (unrecognize d section and content) In the event this informatio n is protected by the Federal Confidentiality of Alcohol and Drug Abuse Patient Records regulations: The Federal rules restrict any use of the information to criminally investigate or prosecute any alcohol or drug abuse patient.[facility] the event this information is protected by the Federal Confidentiality of Alcohol and Drug Abuse Patient Records regulations: The Federal rules restrict any use of the information to criminally investigate or prosecute any alcohol or drug abuse patient.[facility] the event this information is protected by the Federal Confidentiality of Alcohol and Drug Abuse Patient Records regulations: The Federal rules restrict any use of the information to criminally investigate or prosecute any alcohol or drug abuse patient.[facility] the event this information is protected by the Federal Confidentiality of Alcohol and Drug Abuse Patient Records regulations: The Federal rules restrict any use of the information to criminally investigate or prosecute any alcohol or drug abuse patient.[facility] the event this information is protected by the Federal Confidentiality of Alcohol and Drug Abuse Patient Records regulations: The Federal rules restrict any use of the information to criminally investigate or prosecute any alcohol or drug abuse patient.[facility] the event this information is protected by the Federal Confidentiality of Alcohol and Drug Abuse Patient Records regulations: The Federal rules restrict any use of the information to criminally investigate or prosecute any alcohol or drug abuse patient.[facility] Center[facility] the event this information is protected by the Federal Confidentiality of Alcohol and Drug Abuse Patient Records regulations: The Federal rules restrict any use of the information to criminally investigate or prosecute any alcohol or drug abuse patient.[facility] FOR RECORDS PERTAINING TO PATIENTS [...] BE BASED ON THE PRIMARY CLINICAL RECORDS. [facility]. provides no warranty or guarantee of the accuracy or completeness of information in this document.
--- NOTE | 2024-10-12 12:47 | P.CN_ITS ---
Consult Note: HPI Data of Consult Patient: known to practice within the last 3 years Requesting Physician: Tonia Rosado NP Primary Care Provider: CRIS DAVISKimmie Consult Narrative Reason for consult: neck, low back, right leg, right buttock pain Narrative: 58yom who presents for assessment. continues to have severe low back pain with radiation into right lower buttocks and extremity. imaging shows severe stenosis at l4-5 and l5-s1. recently evaluated by neurosurgery at [facility], who plan to do cervical surgery, but recommended lumbar tfesi and sij injection for low back symptoms. continues in a series of provider directed home exercises >6 weeks, without lasting benefit. uses norco and lyrica. recently underwent right L4-5 L5-S1 TFESI with minimal relief per pt. noticing significant increased pain is right parathoracic spine. cc:: CC: Tonia Rosado NP Review of Systems ROS Status of ROS 10 or more systems reviewed and unremark able except as noted in history and below [facility] Medical History Enlarged prostate ?N40.0 - Benign prostatic hyperplasia without lower urinary tract symptoms (ICD-10) Hearing deficit ?H91.90 - Unspecified hearing loss, unspecified ear (ICD-10) Glaucoma ?H40.9 - Unspecified glaucoma (ICD-10) Low back pain ?M54.50 - Low back pain, unspecified (ICD-10) High cholesterol ?E78.00 - Pure hypercholesterolemia, unspecified (ICD-10) Hypertension ?I10 - Essential (primary) hypertension (ICD-10) Social History Little interest or pleasure in doing things: not at all Feeling down, depressed, or hopeless: not at all Meds Home Medications and Allergies Home Medications ?Medication ?Instructions ?Recorded ?Confirmed ?Type atorvastatin 40 mg tablet 40 mg PO DAILY 05/16/24 10/03/24 History cyanocobalamin (vitamin B-12) 2,000 mcg PO DAILY 05/16/24 10/03/24 History 1,000 mcg tablet (Vitamin B-12) meloxicam 15 mg tablet 15 mg PO DAILY 05/16/24 10/03/24 History topiramate 50 mg tablet 50 mg PO BID 05/16/24 10/03/24 History naloxone 4 mg/actuation nasal 4 mg intranasal Q2M PRN opioid 07/14/24 10/03/24 Rx spray (Narcan) overdose #2 ea pregabalin 100 mg capsule (Lyrica) 100 mg PO TID #90 caps 08/15/24 10/03/24 Rx hydrocodone 7.5 mg-acetaminophen 1 tab PO BID PRN pain #60 tabs 08/22/24 10/03/24 Rx 325 mg tablet bupropion HCl 150 mg 24 hr tablet, mg PO 10/03/24 History extended release latanoprost 0.005 % eye drops drp ophthalmic (eye) 10/03/24 History venlafaxine 37.5 mg mg PO 10/03/24 History capsule,extended release 24 hr hydrocodone 7.5 mg-acetaminophen 1 tab PO BID PRN pain #60 tabs 10/04/24 Rx 325 mg tablet Allergies Allergy/AdvReac Type Severity Reaction Status Date / Time No Known Drug Allergies Allergy Verified 10/03/24 09:28 Exam Constitutional Documenting provider has reviewed patient's vital signs: yes Common normals: no apparent distress, oriented x3, healthy appearing, alert and well nourished General appearance: cooperative HENIN Common normals: normocephalic, hearing grossly normal bilaterally and moist oral mucous membranes Head and scalp: normocephalic Eye Common normals: PERRL Pupil: PERRL Neck & C-Spine Common normals: full ROM General: normal visual inspection Chest Common normals: inspection of chest normal Respiratory Common normals: normal respiratory effort, no retractions and no use of accessory muscles Back & Pelvis Thoracic spine/upper back: thoracic spinal tenderness; no paraspinal muscle tenderness Lumbar spine/lower back: lumbar spinal tenderness, paraspinal muscle tenderness and straight leg raise positive right Sacroiliac joints: SI joint(s) abnormal Other: increased pain T10-12 dermatomal pattern on the right positive right luci(patricks), gaenslens, thigh thrust, compression test Neuro Common normals: oriented x3, CN's II-XII intact bilaterally, moves all extremities, no focal motor deficits, no sensory deficits noted and deep tendon reflexes 2+ bilaterally Sensorium/orientation: alert Motor exam: no movement abnormalities noted and strength abnormal (4/5 in RLE) Psych Common normals: mental status grossly normal, thought process normal, cooperative, affect normal, speech normal and activity/motor behavior normal Speech: normal speech Thought process: normal thought process Results Additional Findings Additional findings: If on a controlled substance or opioids, I have checked an OARRS report on this patient and there are no aberrancies noted in the prescribing history.??If on a controlled substance or opioid a drug screen was completed and reviewed within the last year, and if there has not been a drug screen completed we ordered one today to monitor higher risk, state monitored pain medication use. As part of providing excellent, safe, comprehensive care, the following was completed at our patient's visit: 1. A medication reconciliation and review to ensure accurate knowledge of current/active medications, including asking our patients to inform us about any ukdc-mao-ybdxhcb medications or herbal remedies/nutritional supplements/alternative remedies. 2. A review to specifically ensure our patients have had annual screening for screening for depression, screening for tobacco use, and screening for unhealthy alcohol use. For concerning screenings had a discussion with the patient, p rovided patient education, and recommended follow-up with primary care provider when appropriate. If patient noted with a risk of falling, they received education on strength, gait, and balance training to prevent future risk of falling. Portions of this note may have been carried over from the previous visit and updated as appropriate. Please note this office utilizes paper charting in addition to the electronic medical record. A list of current medications, vitals, and PMH is available there as the clinical staff outside of myself do not have access to [employer] charting during the clinic day operations. As part of providing quality comprehensive care the current medications, vitals, and PMH were reviewed in the paper chart. 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 Pt planning for cervical surgery at [facility] with Dr Wisdom 11/16/24 increase pregabalin 100mg 2 capsules TID, risks vs benefits reviewed continue hydrocodone-acetaminophen 7.5mg BID PRN moderate to severe pain continue meloxicam 15mg daily PRN pain risks vs benefits of treatment plan reviewed with pt f/u 2 weeks after injection
== END 2024-10-12 12:20 | disposition home or self-care (01) ==
PROVIDERS: PCP Internal Medicine; Visit Provider Nurse Practitioner
DX: M46.1 Sacroiliitis, not elsewhere classified (principal); M48.062 Spinal stenosis, lumbar region with neurogenic claudication; G58.0 Intercostal neuropathy; Z79.891 Long term (current) use of opiate analgesic; M48.02 Spinal stenosis, cervical region
CPT/HCPCS: G0463

== ENCOUNTER 2024-10-24 11:59 | Day surgery (SDC) | payer OTHER, SELFPAY ==
[2024-10-24 12:49] VITALS: BP 142/84; PULSE 69; TEMP 36.3; O2SAT 96
[2024-10-24 13:07] VITALS: BP 152/77; PULSE 72; O2SAT 96
[2024-10-24 13:08] VITALS: BP 139/80; PULSE 69; O2SAT 98
[2024-10-24] MEDS: LIDOCAINE HCL 2% 400 MG/20 ML MDV INJ (13:09)
[2024-10-24] MEDS: BUPIVACAINE HCL 0.25% PF 25 MG/10 ML VIAL 2 ML INJ (13:09)
[2024-10-24] MEDS: METHYLPREDNISOLONE ACETATE 40 MG/ML VIAL INJ (13:09)
[2024-10-24] MEDS: IOHEXOL 240 MG/ML - 10 ML VIAL 12 MG INJ (13:10)
--- NOTE | 2024-10-24 13:10 | W.PM.PROCNOT ---
Date of procedure: 10/24/24 Pre-op diagnosis: Pain due to right sacroiliitis Post-op diagnosis: same as pre-op Procedure: Procedure: Right sacroiliac joint injection Medications: Bupivacaine 0.25% 3cc, depomedrol 40mg After informed consent was obtained, the patient was brought to the medical procedure unit and placed in the prone position, when a timeout was completed verifying correct patient, procedure, site, positioning, implant, and/or special equipment.? The skin overlying the area was prepped and draped in standard sterile fashion using alcohol.? A 25-gauge needle was inserted towards the right sacroiliac joint under direct fluoroscopic imaging.? Needle tip was advanced until the joint was encountered.? We instilled a total of 2 mL of solution.? Postoperatively needles were removed.? The patient tolerated the procedure well without complication.? The patient reported reduction in pain symptoms postoperatively. Anesthesia: Local Surgeon: Lalitha Vela Pathology: none sent Condition: stable Disposition: no change
== END 2024-10-24 13:15 | disposition home or self-care (01) ==
LOC: SURGOUT 11:59
PROVIDERS: PCP Internal Medicine; Visit Provider Anesthesiology
DX: M46.1 Sacroiliitis, not elsewhere classified (principal)
CPT/HCPCS: 27096; J0665; J1010; Q9966

== ENCOUNTER 2024-11-03 09:44 | Outpatient (OUT) | payer OTHER, SELFPAY ==
--- NOTE | 2024-11-03 10:24 | P.CN_ITS ---
Consult Note: HPI Data of Consult Patient: known to practice within the last 3 years Requesting Physician: Tonia Rosado NP Primary Care Provider: CRIS DAVISKimmie Consult Narrative Reason for consult: neck, low back, right leg, right buttock pain Narrative: 59yom who presents for assessment. continues to have severe low back pain with radiation into right lower buttocks and extremity. imaging shows severe stenosis at l4-5 and l5-s1. recently evaluated by neurosurgery at [facility], who plan to do cervical surgery, but recommended lumbar tfesi and sij injection for low back symptoms. continues in a series of provider directed home exercises >6 weeks, without lasting benefit. uses norco and lyrica. recently underwent right L4-5 L5-S1 TFESI and right SIJ injection with >50% improvement ongiong. cc:: CC: Tonia Rosado NP Review of Systems ROS Status of ROS 10 or more systems reviewed and unremark able except as noted in history and below [facility] Medical History Enlarged prostate ?N40.0 - Benign prostatic hyperplasia without lower urinary tract symptoms (ICD-10) Hearing deficit ?H91.90 - Unspecified hearing loss, unspecified ear (ICD-10) Glaucoma ?H40.9 - Unspecified glaucoma (ICD-10) Low back pain ?M54.50 - Low back pain, unspecified (ICD-10) High cholesterol ?E78.00 - Pure hypercholesterolemia, unspecified (ICD-10) Hypertension ?I10 - Essential (primary) hypertension (ICD-10) Social History Little interest or pleasure in doing things: not at all Feeling down, depressed, or hopeless: not at all Meds Home Medications and Allergies Home Medications ?Medication ?Instructions ?Recorded ?Confirmed ?Type atorvastatin 40 mg tablet 40 mg PO DAILY 05/16/24 10/24/24 History cyanocobalamin (vitamin B-12) 2,000 mcg PO DAILY 05/16/24 10/24/24 History 1,000 mcg tablet (Vitamin B-12) meloxicam 15 mg tablet 15 mg PO DAILY 05/16/24 10/24/24 History topiramate 50 mg tablet 50 mg PO BID 05/16/24 10/24/24 History naloxone 4 mg/actuation nasal 4 mg intranasal Q2M PRN opioid 07/14/24 10/24/24 Rx spray (Narcan) overdose #2 ea pregabalin 100 mg capsule (Lyrica) 100 mg PO TID #90 caps 08/15/24 10/24/24 Rx hydrocodone 7.5 mg-acetaminophen 1 tab PO BID PRN pain #60 tabs 08/22/24 10/24/24 Rx 325 mg tablet bupropion HCl 150 mg 24 hr tablet, 150 mg PO 10/03/24 History extended release latanoprost 0.005 % eye drops drp ophthalmic (eye) 10/03/24 History venlafaxine 37.5 mg 37.5 mg PO 10/03/24 History capsule,extended release 24 hr hydrocodone 7.5 mg-acetaminophen 1 tab PO BID PRN pain #60 tabs 10/04/24 10/24/24 Rx 325 mg tablet pregabalin 100 mg capsule (Lyrica) 200 mg (2 x 100 mg) PO TID #180 10/12/24 10/24/24 Rx caps hydrocodone 7.5 mg-acetaminophen 1 tab PO BID PRN pain #60 tabs 11/03/24 Rx 325 mg tablet Allergies Allergy/AdvReac Type Severity Reaction Status Date / Time No Known Drug Allergies Allergy Verified 10/24/24 12:45 Exam Constitutional Documenting provider has reviewed patient's vital signs: yes Common normals: no apparent distress, oriented x3, healthy appearing, alert and well nourished General appearance: cooperative [facility] Common normals: normocephalic, hearing grossly normal bilaterally and moist oral mucous membranes Head and scalp: normocephalic Eye Common normals: PERRL Pupil: PERRL Neck & C-Spine Common normals: full ROM General: normal visual inspection Chest Common normals: inspection of chest normal Respiratory Common normals: normal respiratory effort, no retractions and no use of accessory muscles Back & Pelvis Thoracic spine/upper back: thoracic spinal tenderness; no paraspinal muscle tenderness Lumbar spine/lower back: lumbar spinal tenderness, paraspinal muscle tenderness and straight leg raise negative bilaterally Sacroiliac joints: SI joint(s) abnormal Other: increased pain T10-12 dermatomal pattern on the right positive left luci(patricks), gaenslens, thigh thrust, compression test, negative on right Neuro Common normals: oriented x3, CN's II-XII intact bilaterally, moves all extremities, no focal motor deficits, no sensory deficits noted and deep tendon reflexes 2+ bilaterally Sensorium/orientation: alert Motor exam: no movement abnormalities noted and strength abnormal (4/5 in RLE) Psych Common normals: mental status grossly normal, thought process normal, cooperative, affect normal, speech normal and activity/motor behavior normal Speech: normal speech Thought process: normal thought process Results Additional Findings Additional findings: If on a controlled substance or opioids, I have checked an OARRS report on this patient and there are no aberrancies noted in the prescribing history.??If on a controlled substance or opioid a drug screen was completed and reviewed within the last year, and if there has not been a drug screen completed we ordered one today to monitor higher risk, state monitored pain medication use. As part of providing excellent, safe, comprehensive care, the following was completed at our patient's visit: 1. A medication reconciliation and review to ensure accurate knowledge of current/active medications, including asking our patients to inform us about any uwxv-shw-wvbadoq medications or herbal remedies/nutritional supplements/alternative remedies. 2. A review to specifically ensure our patients have had annual screening for screening for depression, screening for tobacco use, and screening for unhealthy alcohol use. For concerning screenings had a discussion with the patient, provided patient education, and recommended follow-up with primary care provider when appropriate. If patient noted with a risk of falling, they received education on strength, gait, and balance training to prevent future risk of falling. Portions of this note may have been carried over from the previous visit and updated as appropriate. Please note this office utilizes paper charting in addition to the electronic medical record. A list of current medications, vitals, and PMH is available there as the clinical staff outside of myself do not have access to [employer] charting during the clinic day operations. As part of providing quality comprehensive care the current medications, vitals, and PMH were reviewed in the paper chart. 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 as discussed pt to stop norco through our office while prescribed post op pain medications for upcoming surgery. pt verbalized understanding. f/u 3 months, sooner if needed
== END 2024-11-03 09:45 | disposition home or self-care (01) ==
PROVIDERS: PCP Internal Medicine; Visit Provider Nurse Practitioner
DX: M46.1 Sacroiliitis, not elsewhere classified (principal); M48.062 Spinal stenosis, lumbar region with neurogenic claudication; G58.0 Intercostal neuropathy; Z79.891 Long term (current) use of opiate analgesic; M48.02 Spinal stenosis, cervical region
CPT/HCPCS: G0463

== ENCOUNTER 2025-02-08 12:21 | Outpatient (OUT) | payer OTHER, SELFPAY ==
--- OUTSIDE RECORDS SUMMARY | 2025-01-26 15:30 | XMS_ITS | Encounter Summary ---
Author Organization [facility] Address [address] [facility] [address] Care Team Providers Care Senior Product Designer Name Role Phone Rogers Geller MD Primary Care Provider [phone] Encounter Details Date Type Department Care Team (Late st Contact Info) Description 01/26/2025 3:30 PM EDT Ancillary Procedure [facility] [address] [place] [place] [address] Social History Tobacco Use Types Packs/Day Years [...] [facility] [address] [place] [place] [address] Rogelio Kirk DPM [address] [address] 03/16/2025 4:20 PM EDT Office Visit [facility] [address] [place] [address] [place] [address] Rogelio Kirk DPM [address] [address] 04/06/2025 3:40 PM EDT Procedure Visit [facility] 112 [facility] 120 [place] [address] Rogelio Kirk DPM 3006 [facility] 5 [place] [address] documented as of this encounter Procedures Procedure [...] on filedocumented in this encounter Care Teams Senior Product Designer Relationship Specialty Start Date End Date Rogers Geller MD [address] [place] [address] PCP - General Internal Medicine 01/04/24 documented as of this encounter
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
--- OUTSIDE RECORDS SUMMARY | 2025-02-07 15:15 | XMS_ITS | Encounter Summary ---
Author Organization [facility] Address [facility] [place] [address] Care Team Providers Care Coffee Roaster Helper Name Role Phone Rogers Geller Primary Care Provider [phone] Frandy Caba DO Unavailable [phone] Source Comments In the event this information is protected by the Federal Confidentiality of Alcohol and Drug AbusePatient Records regulations: The Federal rules restrict any use of the information to criminally investigate or prosecute any alcohol or drug abuse patient.[facility] Reason for Visit * Reason Comments Follow Up * Consult, Test, Treat (Routine) - Authorized Specialty Diagnoses / Procedures Referred By Georges t Referred To Contact Diagnoses Cervical spondylosis with myelopathy Acute post-operative pain Procedures PROVIDER ORDERED FOLLOW UP OFFICE/OUTPATIENT [facility] 60 MINUTES Marta Rankin APRN.HEAD OF MOBILE [address] [place] [address] Phone: tel: fax: Referral ID Status Reason Start Date Expiration Date Visits Requested Visits Authorized [id number] Authorized PCP Requested Referral 12/01/2024 12/01/2025 1 1 Encounter Details Date Type Department Care Team (Latest Contact Info) Description 02/07/2025 3:15 PM EDT [facility] [address] [phone] Marta Rankin APRN.HEAD OF MOBILE [address] [phone] Cervical spondylosis with myelopathy (Primary Dx) Social History Tobacco Use Types Packs/Day Years Used Date Smoking Tobacco: Every Day Cigarettes Smokeless Tobacco: Never Alcohol Use Standard Drinks/Week Comments Not Currently 0 (1 standard drink = 0.6 oz pur e alcohol) [facility] Utilities Answer Date Recorded In the past 12 months has th e electric, gas, oil, or water company threatened to shut off services in your home? No 11/17/2024 Hunger Vital Sign Answer Date Recorded Within the past 12 months, y ou worried that your food would run out before you got the money to buy more. Never true 11/18/19 Within the past 12 months, t he food you bought just didn't last and you didn't have money to get more. Never true 11/17/2024 PRAPARE - Transportation Answer Date Re corded In the past 12 months, has l ack of transportation kept you from medical appointments or from getting medications? No 11/01 In the past 12 months, has l ack of transportation kept you from meetings, work, or from getting things needed for daily living? No 11/17/2024 Housing Stability Vital Sign Answer Kaden e Recorded In the last 12 months, was t here a time when you were not able to pay the mortgage or rent on time? Yes 11/17/2024 Number of Times Moved in the Last Year Not on fi le 11/17/2024 At any time in the past 12 m [facility], were you homeless or living in a penitentiary (including now)? Yes 11/17/2024 Area Deprivation Index Answer Date Nav rded National Score (1-100), lower number is lower ri sk 94 10/25/2024 State Score (1-10), lower number is lower risk 9 10/25/2024 Data from: https://www.neighborhoodatlas.medicine.[facility].edu/. Last address used for calculation [address] 10/25/2024 Sex and Gender Information Value Date Recorded Sex Assigned at Not on file Legal Sex Male 11:34 AM EST Gender Identity Not on file Sexual Orientation Not on file documented as of this encounter Functional Status * Are you deaf or do you have serious difficulty hearing? Answer Date of Assessment Author No 11/19/2024 11:04 AM Lisa Chandler RN * Are you blind or do you have serious difficulty seeing, even when wearing glasses? Answer Date of Assessment Author No 11/19/2024 11:04 AM Lisa Chandler RN * Do you have serious difficulty walking or climbing stairs? Answer Date of Assessment Author No 11/19/2024 11:04 AM Lisa Chandler RN * Do you have difficulty dressing or bathing? Answer Date of Assessment Author No 11/19/2024 11:04 AM Lisa Chandler RN * Because of a physical, mental, or emotional condition, do you have difficulty doing errands alone such as visiting a doctor's office or shopping? Answer Date of Assessment Author No 11/19/2024 11:04 AM Lisa Chandler RN documented as of this encounter Mental Status * Because of a physical, mental, or emotional condition, do you have serious difficulty concentrating, remembering, or making decisions? Answer Entry Date Author No 11/19/2024 11:04 AM Lisa Chandler RN documented in this encounter Progress Notes * Marta Rankin APRN.HEAD OF MOBILE - 02/07/2025 3:15 PM EDT SPINE SURGERY FOLLOW UP This is a virtual visit using Audio Only Visit. It required patient-provider interaction for the medical decision making as documented below. I have communicated my name and active licensure. The patient's identity and physical location wereverified at the time of this visit. Either the patient or their legal medical claims representative has been informed of the risks and benefits of -- and alternatives to -- treatment through a remote evaluation andconsents to proceed with the evaluation remotely. SERVICE DATE: 02/07/2025 SURGERY DATE: 11/16/2024 SURGERY: C3-C5 laminoplasty INDICATIONS: balance issues and fine motor tasks issues. Cervical MRI revealed severe stenosis fromC3-C5 Maxwell Harris is seen for 12 week post operative follow up. He missed his in person 6 week appointment and XR with Dr. Wisdom due to transportation issues. He is doing OK. Reports neck soreness andstiffness. Continues to see some improvement in his upper extremity sensation. He is ambulating with slightly greater ease and using a cane. Using robaxin, tylenol, and Lyrica for pain relief. He is scheduled to follow up with his pain wholesale manager tomorrow for continued narcotic prescriptions, as we cannot prescribe beyond 12 weeks. Continues to deal with his chronic headaches, for which he sees neurology for. ANTIPLATELET OR ANTICOAGULATION STATUS: No Patient Entered Questionnaires PROMIS Score Percentiles Percentiles [...] 15-19 Moderately severe depression 20-27 Severe depression PHYSICAL EXAM: There were no vitals taken for this visit. Audio visit DATA REVIEW No additional images reviewed today ASSESSMENT/PLAN (M47.12) Cervical spondylosis with myelopathy (primary encounter diagnosis) Maxwell Harris will continue with medical management of his/her condition. 1. Denies red flag symptoms. Recovering as expected. He missed his 6 week appt and XR- we have rescheduled these. OK to increase activity as tolerated. Further narcotic prescriptions will need to come from his pain wholesale manager who prescribed them chronically prior to surgery. 2. Follow up: 02/21/25 with XR Imaging Ordered: For routine post operative monitoring The majority of the visit was spent counseling and/or coordinating care for the patient. The patient was counseled regarding cervical spondylosis with myelopathy. Total face to face time was 10 minutes. SIGNATURE: Marta Rankin APRN.CNP PATIENT NAME: Maxwell Harris DATE: February 07, 2025 TIME: 2:49 PM PAGER: documented in this encounter Plan of Treatment Upcoming Encounters Date Type Department Care Team (Late st Contact Info) Description 02/21/2025 3:00 PM EDT Office Visit Spine Surgery [facility] [address] [place] [address] Jus Wisdom MD [address] [place] [address] 6 week post op follow up with pre-visit XR documented as of this encounter Visit Diagnoses Diagnosis Cervical spondylosis with myelopathy- Primary documented in this encounter Care Teams Coffee Roaster Helper Relationship Specialty Start Date End Date Rogers Geller [address] [place] [address] PCP - General Internal Medicine 07/14/24 Frandy Caba DO [address] [place] [address] Referring Neurology 07/14/24 documented as of this encounter
--- OUTSIDE RECORDS SUMMARY | 2025-02-08 12:24 | XMS_ITS | Encounter Summary ---
Author Organization [facility] tem Address [id number] [address] [place] [address] Care Team Providers Care Bailer Tenders Supervisor Name Role Phone Rogers Geller Primary Care Provider [phone] Encounter Details Date Type Department Care Team (Late st Contact Info) Description 06/29/2024 [facility] [address] [place] [address] Ref Prov, [place] [address] Social History Tobacco Use Types Packs/Day Years Used Date Smoking Tobacco: Every Day Cigarettes 1 45 Smokeless Tobacco: Never Alcohol Use Standard Drinks/Week Comments Not Currently 2 (1 standard drink = 0.6 oz pur e alcohol) once a while Social Connection and Isolation Panel [NHANES] A nswer Date Recorded In a typical week, how many times do you talk on the phone with family, friends, or neighbors? Three times a week 04/23/2020 How often do you get togethe r with friends or relatives? Three times a week 04/23/2020 How often do you attend chur ch or adventism services? Never 04/23/2020 Do you belong to any clubs o r organizations such as yarsani groups, unions, fraternal or athletic groups, or school groups? No 04/23/2020 How often do you attend meet ings of the clubs or organizations you belong to? Never 04/23/2020 Are you , , di vorced, , never , or living with a partner? Never 04/23/2020 Overall Financial Resource Strain (CARDIA) Answe r Date Recorded How hard is it for you to pa y for the very basics like food, housing, medical care, and heating? Somewhat hard 04/23/2020 PHQ-2 Answer Date Recorded Total Score 0 05/19/2024 PRAPARE - Transportation Answer Date Re corded In the past 12 months, has l ack of transportation kept you from medical appointments or from getting medications? No 04/04 In the past 12 months, has l ack of transportation kept you from meetings, work, or from getting things needed for daily living? No 04/23/2020 Childcare Answer Date Recorded Do problems getting child ca re make it difficult for you to work or study? No 10/16/2020 Employment Answer Date Recorded Do you need help finding a [employer] career center and/or a training program? No 10/16/2020 Hunger Screening Answer Date Recorded Within the past 12 months we worried whether our food would run out before we got money to buy more. Never True 05/19/2024 Within the past 12 months th e food we bought just didn't last and we didn't have money to get more. Never True 05/19/2024 Purpose - Life Answer Date Recorded I have a purpose and direction in my life. Agree 10/16/2020 Sex and Gender Information Value Date Recorded Sex Assigned at Not on file Legal Sex Male 12:07 PM EDT Gender Identity Not on file Sexual Orientation Not on file documented as of this encounter Plan of Treatment Upcoming Encounters Date Type Department Care Team (Late st Contact Info) Description 02/22/2025 2:45 PM EDT Office Visit [facility] Internal Medicine - Family Medicine [address] [place] [address] Rogers Geller DO [address] [place] [address] documented as of this encounter Goals Goal Patient Goal Type Associated Problems Recent Progress Patient-Stated? Author home General Yes Jenny Corona, RN Note: Evaluation of progress towards goal: patient anticipates discharge home with home care at this time Patient is planning to transition to inpatient rehab General Yes Rae Burton LSW Note: Evaluation of progress towards goal: Patient is planning to transition to inpatient rehab. documented as of this encounter Procedures Procedure Name Priority Date/Time Associated Diagnosis Comments MR CERVICAL SPINE W WO CONT Routine 06/23/2024 12:31 PM EST documented in this encounter Results * MR cervical spine with and without contrast (06/23/2024 12:31 PM EST) Anatomical Region Laterality Modality MSK, Neuro, Spine, C-spine, Spine Covera N/A Magnetic Resonance us Not In System Ref Prov IMG MRI ORDERABLES Final Result documented in this encounter Visit Diagnoses Not on filedocumented in this encounter Additional Health Concerns Assessment Noted Time PHQ-9 Depression Total Score: 0 05/19/20 24 12:36 PM EDT documented as of this encounter Care Teams Bailer Tenders Supervisor Relationship Specialty Start Date End Date Rogers Geller DO [address] [place] [address] PCP - General Internal Medicine 12/07/23 documented as of this encounter
--- OUTSIDE RECORDS SUMMARY | 2025-02-08 12:24 | XMS_ITS | Encounter Summary ---
Author Organization [facility] Address [id number] [address] [place] [address] Care Team Providers Care Concrete Inspector Name Role Phone Rogers Geller Primary Care Provider [phone] Encounter Details Date Type Department Care Team (Late st Contact Info) Description 12/05/2020 [facility] [address] [place] [address] Catrachita Steele CMA Social History Tobacco Use Types Packs/Day Years Used Date Smoking Tobacco: Every Day Cigarettes 1 45 Smokeless Tobacco: Never Alcohol Use Standard Drinks/Week Comments Yes 12 (1 standard drink = 0.6 oz pu re alcohol) socially Social Connection and Isolation Panel [NHANES] A nswer Date Recorded In a typical week, how many times do you talk on the phone with family, friends, or neighbors? Three times a week 04/23/2020 How often do you get togethe r with friends or relatives? Three times a week 04/23/2020 How often do you attend chur ch or denominational services? Never 04/23/2020 Do you belong to any clubs o r organizations such as temple groups, unions, fraternal or athletic groups, or [...] PHQ-2 Answer Date Recorded Total Score 0 10/16/2020 PRAPARE - Transportation Answer Date Re corded [...] Recorded Do you need help finding a [facility] career center and/or a training program? No 10/16/2020 Purpose - Life Answer Date Recorded I have a purpose and direction in my life. Agree 10/16/2020 Sex and Gender Information Value Date Recorded Sex Assigned at Not on file Legal Sex Male 12:07 PM EDT Gender Identity Not on file Sexual Orientation Not on file COVID-19 Exposure Response Date Recorded In the last month, have you been in contact with someone who was confirmed or suspected to have Coronavirus / COVID-19? No / Unsure 11/19/2020 1:36 PM EDT documented as of this encounter Miscellaneous Notes * Telephone Encounter - Catrachita Steele CMA - 12/05/2020 10:53 AM EDT Ayana from home Health Health called and said that Ar's wound has opened up some. The length 0.2 the width 0.2 And the depth 0.3. The wound was pretty well healed before this point nurse is going to pack it with some gauze wet to dry in it. His appt is on Thursday with you. Patient is experiencing sharp pains where the incision sites are as she was there. But he says thatthe nurse that didn't do anything about it. He woould really like a referral to speak to someone about the PTSD that he is having. He says that he has night terrors when he sleeps at night. And he isreally wants to talk to someone about it. documented in this encounter Plan of Treatment Upcoming Encounters Date Type Department Care Team (Late st Contact Info) Description 02/22/2025 2:45 PM EDT Office Visit [facility] - Family Medicine [address] [facility] [place] [address] Rogers Geller DO [address] [place] [address] documented as of this encounter Goals Goal Patient Goal Type Associated Problems Recent Progress Patient-Stated? Author home General Yes Jenny Corona RN Note: Evaluation of progress towards goal: patient anticipates discharge home with home care at this time documented as of this encounter Visit Diagnoses Not on filedocumented in this encounter Additional Health Concerns Infection Onset Date Last Indicated Resolved Time MRSA Comment:WND ABD INCISION SWAB(10/20/20) 10/20/2020 10/20/2020 03/29/2021 11:20 PM EDT Assessment Noted Time PHQ-9 Depression Total Score: 0 10/17/19 1:20 PM EDT documented as of this encounter Care Teams Concrete Inspector Relationship Specialty Start Date End Date Rogers Geller DO [address] [place] [address] PCP - General Internal Medicine 12/07/23 documented as of this encounter
--- OUTSIDE RECORDS SUMMARY | 2025-02-08 12:24 | XMS_ITS | Encounter Summary ---
Author Organization [facility] Address [id number] [address] [place] [address] Care Team Providers Care Cable Splicer Name Role Phone Rogers Geller Primary Care Provider [phone] Encounter Details Date Type Department Care Team (Late st Contact Info) Description 06/23/2024 Telephone [facility] Internal Medicine - Family Medicine [address] [place] [address] Wild Holliday CMA Social History Tobacco Use Types Packs/Day [...] often do you attend chur ch or yarsani services? Never 04/23/2020 Do you belong to any clubs o r organizations such as amish groups, unions, fraternal or athletic groups, or [...] Recorded Do you need help finding a [facility] career center and/or a training program? [...] on file documented as of this encounter Miscellaneous Notes * Telephone Encounter - Wild Holliday CMA - 06/23/2024 10:52 AM EST Rae Vegas Ar's Friend called and would like to Have you addend the letter to child Support stating some dates as to when will he be able to return to work? when or like a time frame. If ever? * Telephone Encounter - Rogers Geller DO - 06/23/2024 10:52 AM EST Message noted. A new, corrected letter was written and is available. * Telephone Encounter - Wild Holliday CMA - 06/23/2024 10:52 AM EST I called Ar and let him know. documented in this encounter Plan of Treatment Upcoming Encounters Date Type Department Care Team (Late st Contact Info) Description 02/22/2025 2:45 PM EDT Office Visit [facility] Medicine - Family Medicine [address] [place] [address] Rogers Geller DO [address] [facility] [place] [address] documented as of this encounter Goals Goal [...] inpatient rehab. documented as of this encounter Visit Diagnoses Not on filedocumented in this encounter Additional Health Concerns Assessment Noted Time PHQ-9 Depression Total Score: 0 05/19/20 24 12:36 PM EDT documented as of this encounter Care Teams Cable Splicer Relationship Specialty Start Date End Date Rogers Geller DO [address] [facility] [address] PCP - General Internal Medicine 12/07/23 documented as of this encounter
--- OUTSIDE RECORDS SUMMARY | 2025-02-08 12:24 | XMS_ITS | Encounter Summary ---
Author Organization [facility] Address [address] [place] [address] [place] [address] Care Team Providers Care Reading Efficiency Course Director Name Role Phone Rogers Geller MD Primary Care Provider [phone] Encounter Details Date Type Department Care Team ([facility] st Contact Info) Description 01/26/2025 Telephone [facility] [address] [facility] [address] [place] [address] Rogelio Kirk DPAshley 3006 [facility] 5 [place] [address] Social History Tobacco Use Types Packs/Day Years [...] encounter Miscellaneous Notes * Telephone Encounter - Anabell Malave - 02/07/2025 11:40 AM EDT Per call with Sal @ [phone] with Kathy, policy is active and and [employer] are in network. Patient has no deductibles or co-insurances. Code 01464 does not require prior authorization. Reference#: [id number] PST orders were sent to [facility] PCP appt- 02/22 roque/ Yimi @ 2:45pm Pre-op and post op on schedule. Surgery scheduled on both portals.Demographics, insurance card, office notes, sx form, sx appt sheet uploaded to [facility] portal. 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 NO WEIGHT BEARING STATUS-- weight-bearing Percocet documented in this encounter Plan of Treatment Upcoming Encounters Date Type Department Care Team (Late st Contact Info) Description 03/02/2025 4:40 PM EDT Office Visit [facility] [address] [facility] [address] [place] [address] Rogelio Kirk DPM [address] [address] 03/16/2025 4:20 PM EDT Office Visit [facility] [address] [facility] [address] [place] [address] Rogelio Kirk DPM [address] [address] 04/06/2025 3:40 PM EDT Procedure Visit [facility] [address] [facility] [address] [place] [address] Rogelio Kirk DPM [address] [address] documented as of this encounter Visit Diagnoses Not on filedocumented in this encounter Care Teams Reading Efficiency Course Director Relationship Specialty Start Date End Date Rogers Geller MD [address] [place] [address] PCP - General Internal Medicine 01/04/24 documented as of this encounter
--- OUTSIDE RECORDS SUMMARY | 2025-02-08 12:24 | XMS_ITS | Encounter Summary ---
Author Organization [employer] [facility] tem Address [id number] [address] [place] [address] Care Team Providers Care Instructor Industrial Design Name Role Phone Rogers Geller Primary Care Provider [phone] Encounter Details Date Type Department Care Team (Late st Contact Info) Description 06/20/2024 Telephone [facility] Internal Medicine - Family Medicine [address] [place] [address] Wild Holliday CMA Social History Tobacco Use [...] often do you attend chur ch or quaker services? Never 04/23/2020 Do you belong to [...] Recorded Do you need help finding a [facility] career center and/or a training program? [...] Internal Medicine - Family Medicine [address] [place] [address] Rogers Geller DO [address] [place] [address] documented as of this encounter Goals Goal [...] Time PHQ-9 Depression Total Score: 0 05/19/20 12:36 PM EDT documented as of this encounter Care Teams Instructor Industrial Design Relationship Specialty Start Date End Date Rogers Geller DO [address] [place] [address] PCP - General Internal Medicine 12/07/23 documented as of this encounter
--- OUTSIDE RECORDS SUMMARY | 2025-02-08 12:24 | XMS_ITS | Encounter Summary ---
Author Organization [facility] tem Address [id number] [address] [place] [address] Care Team Providers Care Corporate Legal Assistant Name Role Phone Rogers Geller DO Primary Care Provider [phone] Encounter Details Date Type Department Care Team (Late st Contact Info) Description 02/15/2024 Orders Only [facility] Internal Medicine - Family Medicine [address] [place] [address] Rogers Geller DO [address] [place] [address] Social History Tobacco Use Types Packs/Day Years Used Date Smoking Tobacco: Every Day Cigarettes 1 45 Smokeless Tobacco: Never Alcohol Use Standard Drinks/Week Comments Yes 12 (1 standard drink = 0.6 oz pu re alcohol) Social Connection and Isolation Panel [NHANES] A nswer Date Recorded In a typical week, how many times do you talk on the phone with family, friends, or neighbors? Three times a week 04/23/2020 How often do you get togethe r with friends or relatives? Three times a week 04/23/2020 How often do you attend chur ch or yarsanism services? Never 04/23/2020 Do you belong to any clubs o r organizations such as latter day groups, unions, fraternal or athletic groups, or [...] PHQ-2 Answer Date Recorded Total Score 0 12/29/2023 PRAPARE - Transportation Answer Date Re corded [...] Recorded Do you need help finding a [employer] career center and/or a training program? No 10/16/2020 Hunger Screening Answer Date Recorded Within the past 12 months we worried whether our food would run out before we got money to buy more. Never True 12/29/2023 Within the past 12 months th e food we bought just didn't last and we didn't have money to get more. Never True 12/29/2023 Purpose - Life Answer Date Recorded I [...] Internal Medicine - Family Medicine [address] [place] [address] Rogers Geller DO [address] [place] [address] documented as of this encounter Goals Goal Patient Goal Type Associated Problems Recent Progress Patient-Stated? Author home General Yes Jenny Corona, RN Note: Evaluation of progress towards goal: patient anticipates discharge home with home care at this time Patient is planning to transition to inpatient rehab General Yes Rae Burton, LUANN Note: Evaluation of progress towards goal: Patient is planning to transition to inpatient rehab. documented as of this encounter Visit Diagnoses Not on filedocumented in this encounter Additional Health Concerns Assessment Noted Time PHQ-9 Depression Total Score: 0 12/29/19 24 11:25 AM EDT documented as of this encounter Care Teams Corporate Legal Assistant Relationship Specialty Start Date End Date Rogers Geller DO [address] [place] [address] PCP - General Internal Medicine 12/07/23 documented as of this encounter
--- OUTSIDE RECORDS SUMMARY | 2025-02-08 12:24 | XMS_ITS | Encounter Summary ---
Author Organization [facility] tem Address [id number] [address] [place] [address] Care Team Providers Care Java Grails Developer Name Role Phone Rogers Geller DO Primary Care Provider [phone] Encounter Details Date Type Department Care Team (Late st Contact Info) Description 05/11/2024 Orders Only [facility] Internal Medicine - Family Medicine [address] [place] [address] Rogers Geller DO [address] [place] [address] Social History Tobacco Use Types Packs/Day Years [...] often do you attend chur ch or yazdanism services? Never 04/23/2020 Do you belong to [...] PHQ-2 Answer Date Recorded Total Score 0 04/28/2024 PRAPARE - Transportation Answer Date Re corded [...] Recorded Do you need help finding a [employer] career center and/or a training program? No 10/16/2020 Hunger Screening Answer Date Recorded Within the past 12 months we worried whether our food would run out before we got money to buy more. Sometimes True 024 Within the past 12 months th e food we bought just didn't last and we didn't have money to get more. Sometimes True 04/28/2024 Purpose - Life Answer Date Recorded I [...] [facility] Internal Medicine - Family Medicine [address] [place] [address] Rogers Geller DO [address] [place] [address] documented as of this encounter Goals Goal [...] Noted Time PHQ-9 Depression Total Score: 0 04/28/20 2:55 PM EDT documented as of this encounter Care Teams Java Grails Developer Relationship Specialty Start Date End Date Rogers Geller DO [address] [place] [address] PCP - General Internal Medicine 12/07/23 documented as of this encounter
--- OUTSIDE RECORDS SUMMARY | 2025-02-08 12:24 | XMS_ITS | Encounter Summary ---
Author Organization [facility] Address [address] [place] [address] [place] [address] Care Team Providers Care Cafe Assistant Name Role Phone Rogers Geller MD Primary Care Provider [phone] Encounter Details Date Type Department Care Team (Latest Contact Info) Description 01/26/2025 Travel Social History Tobacco Use Types Packs/Day Years [...] CI PODIAT[facility] [address] [place] [address] [place] [address] Rogelio Kirk DPM [address] [address] 03/16/2025 4:20 PM EDT Office Visit [facility] [address] [place] [address] [place] [address] Rogelio Kirk DPM [address] [address] 04/06/2025 3:40 PM EDT Procedure Visit [facility] [address] [place] [address] [place] [address] Rogelio Kirk, DPM [address] [address] documented as of this encounter Visit Diagnoses Not on filedocumented in this encounter Care Teams Cafe Assistant Relationship Specialty Start Date End Date Rogers Geller MD [address] [place] [address] PCP - General Internal Medicine 01/04/24 documented as of this encounter
--- OUTSIDE RECORDS SUMMARY | 2025-02-08 12:24 | XMS_ITS | Encounter Summary ---
Author Organization [facility] Address [address] [place] [address] Care Team Providers Care License Clerk Name Role Phone Cris Singh MD Primary Care Provider [phone] Encounter Details Date Type Department Care Team (Late st Contact Info) Description 06/24/2024 Clinisync Result Encounter [facility] External Department Unsolicited Savita Montes De Oca NP Social History Tobacco Use Types Packs/Day Years Used Date Smoking Tobacco: Every Day Cigarettes Smokeless Tobacco: Never Alcohol Use Standard Drinks/Week Comments Yes 0 (1 standard drink = 0.6 oz [...] [facility] PODI[facility] [address] [place] [address] [place] [address] Rogelio Kirk DPM [address] [address] 03/16/2025 4:20 PM EDT Office Visit [facility] [address] [place] [address] [place] [address] Rogelio Kirk DPM [address] [address] 04/06/2025 3:40 PM EDT Procedure Visit [facility] [address] [place] [address] [place] [address] Rogelio Kirk, BEN [address] [address] documented as of this encounter Procedures Procedure Name Priority Date/Time Associated Diagnosis Comments MR CERVICAL SPINE WO/W CON 06/24/2024 9:22 AM EST documented in this encounter Results * MR CERVICAL SPINE WO/W CON (06/24/2024 9:22 AM EST) Anatomical Region Laterality Modality Other 06/24/2024 9:22 AM EST Narrative 06/24/2024 9:25 [place] [address] Magnetic Resonance Report Signed Patient: BEE STARR MR#: [id number] : 1965 Acct:[id number] Age/Sex: 58 / M ADM Date: 06/23/24 Loc: MRI Attending Dr: Savita Monets De Oca NP Ordering Physician: Savita Montes De Oca NP Date of Service: 06/23/24 Procedure(s): MR cervical spine wo/w con Accession Number(s): [id number] cc: Savita Montes De Oca NP; CRIS SINGH [address] [address] Patient Name: BEE STARR MRN: [facility]:[id number] date: 1965 Sex: M Assigned Patient Location: MRI Current Patient Location: Accession/Order Number: [id number] Exam Date: 06/23/2024 12:30 Report Date: 06/24/2024 09:22 At the request of: SAVITA MONTES DE OCA Procedure: MR cervical spine wo/w con EXAMINATION: MR cervical spine wo/w con HISTORY: Weakness Right Upper Extremity COMPARISON: No relevant comparison available. TECHNIQUE: A variety of imaging planes and parameters were utilized for visualization of suspected pathology without and/or with intravenous Dotarem contrast based on examination type. FINDINGS: CRANIOCERVICAL AREA: Normal foramen magnum with no Chiari malformation. PARASPINAL AREA: Normal with no visible mass. BONES: Minimal grade 1 retrolisthesis of C3 on 4. Normal height of the vertebral bodies; no convincing fracture or bone lesion. CORD: Marked flattening and compression posterior to C3-4-5. No abnormal signal Intensity. CERVICAL DISC LEVELS: C2-C3: Mild right foramen narrowing secondary to [...] Uncovertebral joint spurring and degenerative facet arthropathy. MR/MR cervical spine wo/w con IMPRESSION: 1. Marked central canal narrowing posterior to C3-4 extending to C4-5. 2. Multilevel marked and moderate-marked foramen narrowing. 3. Multilevel degenerative disc disease and degenerative facet arthropathy accounting for above findings. Electronically authenticated by: FRANK PARSONS Date: 06/24/2024 09:22 Dictated By: Frank Parsons M.D. Signed By: 06/24/24924 DD/ 1 TD/TT: Hem Marker: Procedure Note Radiology, Radiologist, MD - 06/24/2024 [place] [address] Magnetic Resonance Report Signed Patient: BEE STARR EMR#: [id number] : 1965Acct:[id number] Age/Sex: 58 / MADM Date: 06/23/24 Loc: MRI Attending Dr: Savita Montes De Oca NP Ordering Physician: Savita Montes De Oca NP Date of Service: 06/23/24 Procedure(s): MR cervical spine wo/w con Accession Number(s): [id number] cc: Savita Montes De Oca NP; [place] [address] Patient Name: BEE STARR MRN: [facility]:[id number] date: 1965 Sex: M Assigned Patient Location: MRI Current Patient Location: Accession/Order Number: [id number] Exam Date: 06/23/2024 12:30 Report Date: 06/24/2024 09:22 At the request of: SAVITA MONTES DE OCA Procedure: MR cervical spine wo/w con EXAMINATION: MR cervical spine wo/w con HISTORY: Weakness Right Upper Extremity COMPARISON: No relevant comparison available. TECHNIQUE: A variety of imaging planes and parameters were utilized for visualization of suspected pathology without and/or with intravenousDotarem contrast based on examination type. FINDINGS: CRANIOCERVICAL AREA: Normal foramen magnum with no Chiari malformation. PARASPINAL AREA: Normal with no visible mass. BONES: Minimal grade 1 retrolisthesis of C3 on 4. Normal height of the vertebral bodies; no convincing fracture or bone lesion. CORD: Marked flattening and compression posterior to C3-4-5. No abnormal signal Intensity. CERVICAL DISC LEVELS: C2-C3: Mild right foramen narrowing secondary to uncovertebral jointspurring. No significant narrowing of the central canal or left foramen. Noappreciable disc bulging or significant facet arthropathy. C3-C4: Marked central canal and bilateral foramen narrowing. Moderatediffuse disc bulging without disc height reduction. Uncovertebral joint spurring bilaterally. Mild right, moderate-marked left degenerative facetarthropathy. C4-C5: Moderate central canal narrowing with slight flattening of thecord. Moderate-marked right foramen narrowing, marked left foramen narrowing.Mild diffuse disc bulging without significant disc height reduction.Uncovertebral joint spurring. Mild right, moderate-marked left degenerative facet arthropathy. C5-C6: No significant central canal narrowing. Moderate right, marked left foramen narrowing. Mild diffuse disc bulging without disc heightreduction. Mild degenerative facet arthropathy, left greater than right. C6-C7: No significant central canal narrowing. Moderate-marked foramen narrowing bilaterally. Mild diffuse disc bulging and moderate disc height reduction. Uncovertebral joint spurring and mild degenerative facet arthropathy bilaterally. C7-T1:. Mild central canal narrowing. Moderate marked foramen narrowing bilaterally. Mild diffuse disc bulging without disc height reduction. Uncovertebral joint spurring and degenerative facet arthropathy. MR/MR cervical spine wo/w con IMPRESSION: 1. Marked central canal narrowing posterior to C3-4 extending to C4-5. 2. Multilevel marked and moderate-marked foramen narrowing. 3. Multilevel degenerative disc disease and degenerative facet arthropathy accounting for above findings. Electronically authenticated by: FRANK PARSONS Date: 06/24/2024 09:22 Dictated By: Frank Parsons M.D. Signed By:06/24/24924 DD/ 1 TD/TT: Hem Marker: Savita Montes De Oca NP [facility] Final Result documented in this encounter Visit Diagnoses Not on filedocumented in this encounter Care Teams License Clerk Relationship Specialty Start Date End Date Cris Singh MD [address] [place] [id number] PCP - General Internal Medicine 01/04/24 documented as of this encounter
--- OUTSIDE RECORDS SUMMARY | 2025-02-08 12:24 | XMS_ITS | Encounter Summary ---
Author Organization [facility] Address [address] [place] [address] Care Team Providers Care Textile Clothing And Footwear Mechanic Name Role Phone Rogers Geller MD Primary Care Provider [phone] Encounter Details Date Type Department Care Team (Late Contact Info) Description 01/26/2025 Bamboo flowsheet [facility] [address] [place] [address] [place] [address] Rogelio Kirk DPM [address] [address] Social History Tobacco Use Types Packs/Day Years [...] Encounters Date Type Department Care Team (Late Contact Info) Description 03/02/2025 4:40 PM EDT Office Visit [facility] [address] [place] [address] [place] [address] Rogelio Kirk DPM [address] [address] 03/16/2025 4:20 PM EDT Office Visit [facility] [address] [place] [address] [place] [address] Rogelio Kirk DPM [address] [address] 04/06/2025 3:40 PM EDT Procedure Visit [facility] [address] [facility] [address] [place] [address] Rogelio Kirk DPM 3006 [facility] 5 [place] [address] documented as of this encounter Visit Diagnoses Not on filedocumented in this encounter Care Teams Textile Clothing And Footwear Mechanic Relationship Specialty Start Date End Date Rogers Geller MD [address] [place] [address] PCP - General Internal Medicine 01/04/24 documented as of this encounter
--- OUTSIDE RECORDS SUMMARY | 2025-02-08 12:24 | XMS_ITS | Encounter Summary ---
Author Organization [facility] s tem Address [id number] [address] [place] [address] Care Team Providers Care Red Hat Linux Administrator Name Role Phone Rogers Geller Primary Care Provider [phone] Encounter Details Date Type Department Care Team (Late st Contact Info) Description 11/21/2020 Telephone [facility] General Surgery-Trauma [address] [place] [address] Catrachita Steele CMA Social History Tobacco Use [...] often do you attend chur ch or taoist services? Never 04/23/2020 Do you belong to any clubs o r organizations such as jehovah's witness groups, unions, fraternal or athletic groups, or [...] Recorded Do you need help finding a [employer] career center and/or a training program? No [...] Telephone Encounter - Catrachita Steele CMA - 11/21/2020 11:34 AM EDT AMYI: Dr. Hicks. Patient needs a letter sent out to Child support stating that he has been under your care since April. That he is still under your care currently. I am going to write the note and send itto the child support office, today. documented in this encounter Plan of Treatment Upcoming Encounters Date Type Department Care Team (Late st Contact Info) Description 02/22/2025 2:45 PM EDT Office Visit [facility] Internal Medicine - Family Medicine [address] [address] Rogers Geller, [address] [facility] [place] [address] documented as of this encounter Goals Goal [...] Time PHQ-9 Depression Total Score: 0 10/17/19 21 1:20 PM EDT documented as of this encounter Care Teams Red Hat Linux Administrator Relationship Specialty Start Date End Date Rogers Geller DO [address] [place] [address] PCP - General Internal Medicine 12/07/23 documented as of this encounter
--- OUTSIDE RECORDS SUMMARY | 2025-02-08 12:24 | XMS_ITS | Encounter Summary ---
Author Organization [facility] Address [address] [place] [address] Care Team Providers Care Fire Extinguisher Mechanic Name Role Phone Rogers Geller Primary Care Provider [phone] Frandy Caba DO Unavailable [phone] Source Comments In the event this information is protected by the Federal Confidentiality of Alcohol and Drug AbusePatient Records regulations: The Federal rules restrict any use of the information to criminally investigate or prosecute any alcohol or drug abuse patient.[facility] Encounter Details Date Type Department Care Team (Late st Contact Info) Description 10/11/2024 Patient Msg [facility] [address] [place] [address] Provider, [facility] Pre op schedule is ready! Social History Tobacco Use Types Packs/Day Years Used Date Smoking Tobacco: Every Day Cigarettes Area Deprivation Index Answer Date Nav rded National Score (1-100), lower number is lower ri sk 79 10/11/2024 State Score (1-10), lower number is lower risk 7 10/11/2024 Data from: https://www.neigh borhoodatlas.medicine.[facility].edu/. Last address used for calculation [address] 10/11/2024 Sex and Gender Information Value Date Recorded Sex Assigned at Not on file Legal Sex Male 11:34 AM EST Gender Identity Not on file Sexual Orientation Not on file documented as of this encounter Plan of Treatment Upcoming Encounters Date Type Department Care Team (Late st Contact Info) Description 02/21/2025 3:00 PM EDT Office Visit Spine Surgery [facility] [address] [place] [address] Jus Widsom MD [address] [place] [address] 6 week post op follow up with pre-visit XR documented as of this encounter Visit Diagnoses Not on filedocumented in this encounter Care Teams Fire Extinguisher Mechanic Relationship Specialty Start Date End Date Rogers Geller [address] [place] [address] PCP - General Internal Medicine 07/14/24 Frandy Caba DO [address] [place] [address] Referring Neurology 07/14/24 documented as of this encounter
--- OUTSIDE RECORDS SUMMARY | 2025-02-08 12:24 | XMS_ITS | Encounter Summary ---
Author Organization [facility] Address [id number] [address] [place] [address] Care Team Providers Care Poured Pipe Maker Name Role Phone Rogers Geller Primary Care Provider [phone] Encounter Details Date Type Department Care Team (Late st Contact Info) Description 01/07/2021 Orders Only [facility] General Surgery-Trauma [address] [place] [address] Catrachita Steele CMA Pain (Primary Dx) Social History Tobacco Use Types [...] often do you attend chur ch or restoration services? Never 04/23/2020 Do you belong to any clubs o r organizations such as religious groups, unions, fraternal or athletic groups, or [...] Recorded Do you need help finding a [employer] career center and/or a training program? No [...] have Coronavirus / COVID-19? No / Unsure 12/13/2020 1:17 PM EDT documented as of this encounter Plan of Treatment Upcoming Encounters Date Type Department Care Team (Late st Contact Info) Description 02/22/2025 2:45 PM EDT Office Visit [facility] Internal Medicine - Family Medicine [address] [place] [address] Rogers Geller, [address] [place] [address] documented as of this encounter Goals Goal Patient Goal Type Associated Problems Recent Progress Patient-Stated? Author home General Yes Jenny Corona, RN Note: Evaluation of progress towards goal: patient anticipates discharge home with home care at this time documented as of this encounter Visit Diagnoses Diagnosis Pain- Primary Generalized pain documented in this encounter Additional Health Concerns Infection Onset Date Last Indicated Resolved Time MRSA Comment:WND ABD INCISION SWAB(10/20/20) 10/20/2020 10/20/2020 03/29/2021 11:20 PM EDT Assessment Noted Time PHQ-9 Depression Total Score: 0 10/17/19 1:20 PM EDT documented as of this encounter Care Teams Poured Pipe Maker Relationship Specialty Start Date End Date Rogers Geller DO [address] [place] [address] PCP - General Internal Medicine 12/07/23 documented as of this encounter
--- OUTSIDE RECORDS SUMMARY | 2025-02-08 12:24 | XMS_ITS | Encounter Summary ---
Author Organization [employer] [facility] tem Address [id number] [address] [place] [address] Care Team Providers Care Fitter Up Name Role Phone Rogers Geller Primary Care Provider [phone] Encounter Details Date Type Department Care Team (Late st Contact Info) Description 11/29/2020 Telephone [facility] General Surgery-Trauma [address] [place] [address] Catrachita Steele CMA Social History Tobacco Use [...] often do you attend chur ch or caodaism services? Never 04/23/2020 Do you belong to any clubs o r organizations such as gnosticism groups, unions, fraternal [...] Recorded Do you need help finding a the [facility] career center and/or a training program? [...] Telephone Encounter - Catrachita Steele CMA - 11/29/2020 3:26 PM EDT Patient wants a refill on his RX of Motrin 800. He wants it sent to [facility] in [place]. * Telephone Encounter - Catrachita Steele CMA - 11/29/2020 3:26 PM EDT says that it is ok to refill his Rx for motrin, but to explain to him not to over do it that it can cause him to have ulcers and other stomach problems. documented in this encounter Plan of Treatment Upcoming Encounters Date Type Department Care Team (Late st Contact Info) Description 02/22/2025 2:45 PM EDT Office Visit [facility] Internal Medicine - Family Medicine [address] [place] [address] Rogers Geller DO [address] [facility] [place] [address] documented as of this encounter Goals Goal [...] documented as of this encounter Care Teams Fitter Up Relationship Specialty Start Date End Date Rogers Geller DO [address] [place] [address] PCP - General Internal Medicine 12/07/23 documented as of this encounter
--- OUTSIDE RECORDS SUMMARY | 2025-02-08 12:24 | XMS_ITS | Encounter Summary ---
Author Organization [facility] tem Address [id number] [address] [place] [address] Care Team Providers Care Passenger Interline Clerk Name Role Phone Rogers Geller Primary Care Provider [phone] Encounter Details Date Type Department Care Team (Late st Contact Info) Description 07/08/2024 [facility] [address] [place] [address] Ref Prov, [place] [address] Social History Tobacco Use Types Packs/Day Years [...] often do you attend chur ch or roman catholic services? Never 04/23/2020 Do you belong to any clubs o r organizations such as lutheran groups, unions, fraternal or athletic groups, or [...] Recorded Do you need help finding a [employer] career center and/or a training program? No [...] Internal Medicine - Family Medicine [address] [place] [address] Rogers Geller DO [address] [place] [address] documented as of this encounter Goals Goal [...] Name Priority Date/Time Associated Diagnosis Comments MR LUMBAR SPINE WO CONT Routine 07/01/2024 9:46 AM EST XR ABDOMEN AP AND LATERAL Routine 07/01/2024 9:36 AM EST documented in this encounter Results * MR lumbar spine without contrast (07/01/2024 9:46 AM EST) Anatomical Region Laterality Modality MSK, Neuro, Spine, L-spine, Spine Covera N/A Magnetic Resonance us Not In System Ref Prov IMG MRI ORDERABLES Final Result * X-ray abdomen ap and lateral (07/01/2024 9:36 AM EST) Anatomical Region Laterality Modality Body, Abdomen N/A Computed Radiogr aphy us Not In System Ref Prov IMG DIAGNOSTIC IMAGING OR DERABLES Final Result documented in this encounter Visit Diagnoses Not on filedocumented in this encounter Additional Health Concerns Assessment Noted Time PHQ-9 Depression Total Score: 0 05/19/20 24 12:36 PM EDT documented as of this encounter Care Teams Passenger Interline Clerk Relationship Specialty Start Date End Date Rogers Geller DO [address] [place] [address] PCP - General Internal Medicine 12/07/23 documented as of this encounter
--- OUTSIDE RECORDS SUMMARY | 2025-02-08 12:24 | XMS_ITS | Encounter Summary ---
Author Organization [employer] Address [id number] [address] [place] [address] Care Team Providers Care Weaving Supervisor Name Role Phone Rogers Geller Primary Care Provider [phone] Encounter Details Date Type Department Care Team (Late st Contact Info) Description 01/07/2021 Telephone [facility] General Surgery-Trauma [address] [place] [address] Catrachita Steele CMA Social History Tobacco Use [...] often do you attend chur ch or religion services? Never 04/23/2020 Do you belong to any clubs o r organizations such as alevism groups, unions, fraternal or athletic groups, or [...] Recorded Do you need help finding a [employer] career center and/or a training program? No [...] Telephone Encounter - Catrachita Steele CMA - 01/07/2021 1:48 PM EDT Patient called in complaining of pins and needles in his stomach. Spoke to the doctor about his pain and doctored replied that he needs to take it easy,use the motrin and the binder everyday. I told patient that I would talk to the doctor about sending him a new Rx for Motrin. documented in this encounter Plan of Treatment Upcoming Encounters Date Type Department Care Team (Late st Contact Info) Description 02/22/2025 2:45 PM EDT Office Visit [facility] Internal Medicine - Family Medicine [address] [place] [address] Rogers Geller, DO [address] [facility] [place] [address] documented as of this encounter Goals Goal [...] documented as of this encounter Care Teams Weaving Supervisor Relationship Specialty Start Date End Date Rogers Geller DO [address] [place] [address] PCP - General Internal Medicine 12/07/23 documented as of this encounter
--- OUTSIDE RECORDS SUMMARY | 2025-02-08 12:24 | XMS_ITS | Encounter Summary ---
Author Organization [employer] [facility] Address [id number] [address] [place] [address] Care Team Providers Care Coronary Clinical Specialist Name Role Phone Rogers Geller DO Primary Care Provider [phone] Encounter Details Date Type Department Care Team (Late st Contact Info) Description 12/13/2024 Orders Only [facility] Internal Medicine - Family Medicine [address] [place] [address] Rogers Geller DO [address] [place] [address] Social History Tobacco Use Types Packs/Day Years [...] often do you attend chur ch or synagogue services? Never 04/23/2020 Do you belong to any clubs o r organizations such as faith groups, unions, fraternal or athletic groups, or [...] PHQ-2 Answer Date Recorded Total Score 0 12/13/2024 PRAPARE - Transportation Answer Date Re corded [...] Recorded Do you need help finding a [employer] career center and/or a training program? No 10/16/2020 Hunger Screening Answer Date Recorded Within the past 12 months we worried whether our food would run out before we got money to buy more. Never True 12/13/2024 Within the past 12 months th e food we bought just didn't last and we didn't have money to get more. Never True 12/13/2024 Purpose - Life Answer Date Recorded I [...] [facility] Internal Medicine - Family Medicine [address] [place] [address] Rogers Geller DO [address] [place] [address] documented as of this encounter Goals Goal [...] Noted Time PHQ-9 Depression Total Score: 0 12/14/19 25 1:34 PM EDT documented as of this encounter Care Teams Coronary Clinical Specialist Relationship Specialty Start Date End Date Rogers Geller DO [address] [place] [address] PCP - General Internal Medicine 12/07/23 documented as of this encounter
--- OUTSIDE RECORDS SUMMARY | 2025-02-08 12:24 | XMS_ITS | Encounter Summary ---
Author Organization [facility] Address [id number] [address] [place] [address] Care Team Providers Care Flatbed Company Driver Name Role Phone Rogers Geller DO Primary Care Provider [phone] Encounter Details Date Type Department Care Team (Late st Contact Info) Description 01/21/2024 Orders Only [facility] Internal Medicine - Family Medicine [address] [place] [address] Rogers Geller DO [address] [place] [address] Social History Tobacco Use Types Packs/Day Years [...] often do you attend chur ch or worship services? Never 04/23/2020 Do you belong to any clubs o r organizations such as adventist groups, unions, fraternal or athletic groups, or [...] Recorded Do you need help finding a [employer] career center and/or a training program? No [...] Internal Medicine - Family Medicine [address] [place] [address] Rogers Geller DO [address] [place] [address] documented as of this encounter Goals Goal [...] documented as of this encounter Care Teams Flatbed Company Driver Relationship Specialty Start Date End Date Rogers Geller DO [address] [place] [address] PCP - General Internal Medicine 12/07/23 documented as of this encounter
--- OUTSIDE RECORDS SUMMARY | 2025-02-08 12:24 | XMS_ITS | Encounter Summary ---
Author Organization [facility] Address [address] [place] [address] Care Team Providers Care Supervisor Phosphorus Processing Name Role Phone Rogers Geller MD Primary Care Provider [phone] Encounter Details Date Type Department Care Team (Late Contact Info) Description 02/24/2024 Orders Only [facility] [address] [place] [phone] Matt Mejia, [address] [place] [address] Social History Tobacco Use Types Packs/Day Years [...] [facility] [address] [place] [address] Rogelio Kirk DPM [address] [address] 03/16/2025 4:20 PM EDT Office Visit [facility] [address] [place] [address] Rogelio Kirk DPM [address] [address] 04/06/2025 3:40 PM EDT Procedure Visit [facility] [address] [facility] [address] [place] [address] Rogelio Kirk, DPAshley [address] [facility] [address] [place] [address] documented as of this encounter Procedures Procedure Name Priority Date/Time Associated Diagnosis Comments MRI LUMBAR SPINE WO CONTRAST Routine 02/24/2024 2:03 PM EDT documented in this encounter Results * MRI LUMBAR SPINE WO CONTRAST (02/24/2024 2:03 PM EDT) Anatomical Region Laterality Modality Radiographic Nicole ging Matt Mejia DO IMG XR PROCEDURES Final R esult documented in this encounter Visit Diagnoses Not on filedocumented in this encounter Care Teams Supervisor Phosphorus Processing Relationship Specialty Start Date End Date Rogers Geller MD [address] [place] [address] PCP - General Internal Medicine 01/04/24 documented as of this encounter
--- OUTSIDE RECORDS SUMMARY | 2025-02-08 12:24 | XMS_ITS | Encounter Summary ---
Author Organization [facility] Address [facility] [place]-[id number] [address] [place] [address] Care Team Providers Care Grain Weigher Name Role Phone Rogers Geller DO Primary Care Provider [phone] Encounter Details Date Type Department Care Team (Late st Contact Info) Description 06/16/2024 Orders Only [facility] Internal Medicine - Family Medicine [address] [place] [address] Rogers Geller DO [address] [place] [address] Social History Tobacco Use Types Packs/Day Years [...] often do you attend chur ch or yazidism services? Never 04/23/2020 Do you belong to any clubs o r organizations such as mormon groups, unions, fraternal or athletic groups, or [...] Recorded Do you need help finding a [employer] career center and/or a training program? No [...] [facility] Internal Medicine - Family Medicine [address] [place] [address] Rogers Geller DO [address] [place] [address] documented as of this encounter Goals Goal [...] documented as of this encounter Care Teams Grain Weigher Relationship Specialty Start Date End Date Rogers Geller DO [address] [place] [address] PCP - General Internal Medicine 12/07/23 documented as of this encounter
--- OUTSIDE RECORDS SUMMARY | 2025-02-08 12:24 | XMS_ITS | Encounter Summary ---
Author Organization [facility] Address [facility] [place] [address] Care Team Providers Care Dietetic Intern Name Role Phone Yimi Rogers Prasad Primary Care Provider [phone] Frandy Caba DO Unavailable [phone] Source Comments In the event this information is protected by the Federal Confidentiality of Alcohol and Drug AbusePatient Records regulations: The Federal rules restrict any use of the information to criminally investigate or prosecute any alcohol or drug abuse patient.[facility] Reason for Visit * Reason Comments Patient Update Results Patient Question Encounter Details Date Type Department Care Team ([facility] Contact Info) Description 09/05/2024 Telephone Neurology [address] [place] [id number] Marta Rankin APRN.CHIEF TECHNOLOGIST [address] [place] [address] Patient Update; Results; Patient Question Social History Tobacco Use Types Packs/Day Years Used Date Smoking Tobacco: Every Day Cigarettes Area Deprivation Index Answer Date Nav rded National Score (1-100), lower number is lower ri sk 60 08/25/2024 State Score (1-10), lower number is lower risk 4 08/25/2024 Data from: https://www.neighborhoodatlas.[facility]/. Last address used for calculation [address] [address] 08/25/2024 Sex and Gender Information Value Date Recorded Sex Assigned at Not on file Legal Sex Male 11:34 AM EST Gender Identity Not on file Sexual Orientation Not on file documented as of this encounter Miscellaneous Notes * Telephone Encounter - Dalila Lara RN - 09/05/2024 12:12 PM EST Neuro SPINE CARE COORDINATION QUICK NOTE Spoke with patient to let him know that Marta reviewed the MRI he had done and he can go ahead and schedule the cervical CT scan. I advised him that he will need to have to facility send over the images and report to [facility] electronically for the appointment with the spine surgeon. Told him if the facility can't send electronically then ask for a CD/disc and bring to his appointment. Also advised him that someone from the scheduling team will reach out to him and assist with getting him scheduled with a spine surgeon once the CT scan is completed. He verbalized understanding. * Telephone Encounter - Ita Benitez - 09/05/2024 8:42 AM EST Call received for Marta Rankin APRN.CHIEF TECHNOLOGIST regarding Maxwell Harris. Caller: self Patient Identified by Name and : Maxwell Harris 1965 Reason for Call: General - Patient is calling about some MRI results I do see some MRI in get images. Patient would like to schedule his CT scan but was suppose to get the results from MRI first. Is there any additional information the provider should know? No Last Office Visit: 08/25/2024 Next scheduled appointment: Visit date not found Best number to reach caller: [phone] Best time to reach caller: anytime Is it OK to leave a detailed voice message? Yes Ita Benitez documented in this encounter Plan of Treatment Upcoming Encounters Date Type Department Care Team (Late st Contact Info) Description 02/21/2025 3:00 PM EDT Office Visit Spine Surgery [facility] [address] [place] [address] Jus Wisdom MD [address] [place] [address] 6 week post op follow up with pre-visit XR documented as of this encounter Visit Diagnoses Not on filedocumented in this encounter Care Teams Dietetic Intern Relationship Specialty Start Date End Date Rogers Geller [address] [place] [address] PCP - General Internal Medicine 07/14/24 Frandy Caba DO [address] [place] [address] Referring Neurology 07/14/24 documented as of this encounter
--- OUTSIDE RECORDS SUMMARY | 2025-02-08 12:24 | XMS_ITS | Encounter Summary ---
Author Organization [employer] Address [facility]-[id number] [address] [place] [address] Care Team Providers Care Balance Wheel Screw Hole Driller Name Role Phone Rogers Geller Primary Care Provider [phone] Reason for Visit * Reason Onset Date Comments Med Refill 09/19/2024 Encounter Details Date Type Department Care Team (Late st Contact Info) Description 09/19/2024 Refill [facility] Internal Medicine - Family Medicine [address] [place] [address] Ayana Brown CMA Social History Tobacco Use Types Packs/Day [...] often do you attend chur ch or tenriism services? Never 04/23/2020 Do you belong to any clubs o r organizations such as druze groups, unions, fraternal or athletic groups, or [...] PHQ-2 Answer Date Recorded Total Score 0 08/22/2024 PRAPARE - Transportation Answer Date Re corded [...] Recorded Do you need help finding a [employer] career center and/or a training program? No 10/16/2020 Hunger Screening Answer Date Recorded Within the past 12 months we worried whether our food would run out before we got money to buy more. Never True 08/22/2024 Within the past 12 months th e food we bought just didn't last and we didn't have money to get more. Never True 08/22/2024 Purpose - Life Answer Date Recorded I have a purpose and direction in my life. Agree 10/16/2020 Sex and Gender Information Value Date Recorded Sex Assigned at Not on file Legal Sex Male 12:07 PM EDT Gender Identity Not on file Sexual Orientation Not on file documented as of this encounter Miscellaneous Notes * Telephone Encounter - Rogers Geller DO - 09/19/2024 11:47 AM EST Pain management now prescribing this medication documented in this encounter Plan of Treatment Upcoming Encounters Date Type Department Care Team (Late st Contact Info) Description 02/22/2025 2:45 PM EDT Office Visit [facility] Internal Medicine - Family Medicine [address] [place] [address] Rogers Geller DO [address] [place] [address] documented as of this encounter Goals Goal Patient Goal Type Associated Problems Recent Progress Patient-Stated? Author home General Yes Jenny Corona, RN Note: Evaluation of progress towards goal: patient anticipates discharge home with home care at this time Patient is planning to transition to inpatient rehab General Yes Rae Burton, NEWSPAPER PRESS OPERATOR APPRENTICE Note: Evaluation of progress towards goal: Patient is planning to transition to inpatient rehab. documented as of this encounter Visit Diagnoses Not on filedocumented in this encounter Additional Health Concerns Assessment Noted Time PHQ-9 Depression Total Score: 0 08/22/19 25 1:43 PM EST documented as of this encounter Care Teams Balance Wheel Screw Hole Driller Relationship Specialty Start Date End Date Rogers Geller DO [address] [place] [address] PCP - General Internal Medicine 12/07/23 documented as of this encounter
--- OUTSIDE RECORDS SUMMARY | 2025-02-08 12:24 | XMS_ITS | Encounter Summary ---
Author Organization [facility] tem Address [facility] [id number] [address] [place] [address] Care Team Providers Care Soiled Linen Distributor Name Role Phone Rogers Geller DO Primary Care Provider [phone] Encounter Details Date Type Department Care Team (Late st Contact Info) Description 12/08/2023 Orders Only [facility] Internal [facility] - Family Medicine [address] [place] [address] Rogers Geller DO [address] [place] [address] B12 deficiency (Primary Dx); VIEIRA (nonalcoholic steatohepatitis) Social History Tobacco Use Types Packs/Day Years [...] often do you attend chur ch or christianity services? Never 04/23/2020 Do you belong to [...] PHQ-2 Answer Date Recorded Total Score 0 12/24/2022 PRAPARE - Transportation Answer Date Re corded [...] Recorded Do you need help finding a [employer] center and/or a training program? No 10/16/2020 Hunger Screening Answer Date Recorded Within the past 12 months we worried whether our food would run out before we got money to buy more. Never True 12/07/2023 Within the past 12 months th e food we bought just didn't last and we didn't have money to get more. Never True 12/07/2023 Purpose - Life Answer Date Recorded I [...] [facility] - [facility] [address] [place] [phone] Rogers Geller DO [address] [facility] [place] [address] documented as of this encounter Goals Goal Patient Goal Type Associated Problems Recent Progress Patient-Stated? Author home General Yes Jenny Corona, RN Note: Evaluation of progress towards goal: patient anticipates discharge home with home care at this time Patient is planning to transition to inpatient rehab Yes Rae Burton LSW Note: Evaluation of progress towards goal: Patient is planning to transition to inpatient rehab. documented as of this encounter Results * Ultrasound abdomen limited (12/22/2023 10:24 AM EDT) Anatomical Region Laterality Modality Body Ultrasound 12/23/2023 12:5 9 PM EDT Narrative 12/23/2023 1:10 PM EDT ABDOMEN LIMITED ULTRASOUND HISTORY: Elevated liver enzymes [...] Carlos Chopra MD on 12/23/2023 1:10 PM Procedure Note Juan Carlos Chopra MD - 12/23/2023 ABDOMEN LIMITED ULTRASOUND HISTORY: Elevated liver enzymes COMPARISON: None FINDINGS: Pancreas: Visualized portions of the pancreatic head and body areunremarkable. Visualized portions of liver are homogenous in echotexture without focallesion. No intrahepatic biliary dilatation. Main portal vein is patent withappropriate direction of flow. Normal gallbladder without stones, wall thickening, or pericholecysticfluid. Common duct measures 8 mm, slightly dilated for provided patient age. No visualized ascites. IMPRESSION: 1. Mild dilatation common duct measuring 8 mm without intrahepatic biliarydilatation. Findings of uncertain clinical significance, if there isconcern for possible obstructive picture please correlate with laboratoryvalues. This may be further evaluated with MRCP as clinically warranted. 2. No convincing evidence of chronic hepatocellular disease. Finalized by Juan Carlos Chopra MD on 12/23/2023 1:10 PM Rogers Geller DO G US ORDERABLES Final Result documented in this encounter Visit Diagnoses Diagnosis B12 deficiency- Primary VIEIRA (nonalcoholic steatohepatitis) Other chronic nonalcoholic liver disease VIEIRA (nonalcoholic steatohepatitis) Other chronic nonalcoholic liver disease documented in this encounter Additional Health Concerns Assessment Noted Time PHQ-9 Depression Total Score: 0 12/25/19 23 11:31 AM EDT documented as of this encounter Care Teams Soiled Linen Distributor Relationship Specialty Start Date End Date Rogers Geller DO [address] [place] [address] PCP - General Internal Medicine 12/07/23 documented as of this encounter
--- OUTSIDE RECORDS SUMMARY | 2025-02-08 12:24 | XMS_ITS | Encounter Summary ---
Author Organization [employer] tem Address [id number] [address] [place] [address] Care Team Providers Care Project Management Professional Name Role Phone Rogers Geller Primary Care Provider [phone] Encounter Details Date Type Department Care Team (Late st Contact Info) Description 03/28/2024 Telephone [facility] Internal Medicine - Family Medicine [address] [place] [address] StephanieAyana sharif, MARINE ENGINE MACHINIST APPRENTICE Social History Tobacco Use Types Packs/Day Years [...] any clubs o r organizations such as holiness groups, unions, fraternal or athletic groups, or [...] PHQ-2 Answer Date Recorded Total Score 0 03/08/2024 PRAPARE - Transportation Answer Date Re corded [...] Recorded Do you need help finding a [facility] career center and/or a training program? No 10/16/2020 Hunger Screening Answer Date Recorded Within the past 12 months we worried whether our food would run out before we got money to buy more. Never True 03/08/2024 Within the past 12 months th e food we bought just didn't last and we didn't have money to get more. Never True 03/08/2024 Purpose - Life Answer Date Recorded I have a purpose and direction in my life. Agree 10/16/2020 Sex and Gender Information Value Date Recorded Sex Assigned at Not on file Legal Sex Male 12:07 PM EDT Gender Identity Not on file Sexual Orientation Not on file documented as of this encounter Miscellaneous Notes * Telephone Encounter - Ayana Brown CMA - 03/28/2024 10:23 AM EDT Pt called stated he needed a release back to work note ? Can you do that or do you need to see him first ? * Telephone Encounter - Rogers Geller DO - 03/28/2024 10:23 AM EDT Message noted. His FMLA extends through the end of April. Why does he need a return to work note now? * Telephone Encounter - Ayana Brown CMA - 03/28/2024 10:23 AM EDT He said he needs to go back bc he needs the money * Telephone Encounter - Rogers Geller DO - 03/28/2024 10:23 AM EDT Message noted. I do not feel I can release him to work unless there are restrictions. Along with this, I would need reports from his eye doctor and neurology before I can write anything. * Telephone Encounter - Ayana Brown CMA - 03/28/2024 10:23 AM EDT I called pt read him your note , advised him to call his eye dr to send us her report , he doesn't get into neurology till apr 19 , I advised him to call and see if they can get in sooner . 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 documented in this encounter Plan of Treatment Upcoming Encounters Date Type Department Care Team (Late st Contact Info) Description 02/22/2025 2:45 PM EDT Office Visit [facility] - Family Medicine [address] [place] [address] Rogers Geller DO [address] [place] [address] documented as of this encounter Goals Goal [...] Noted Time PHQ-9 Depression Total Score: 0 03/08/20 1:49 PM EDT documented as of this encounter Care Teams Project Management Professional Relationship Specialty Start Date End Date Rogers Geller DO [address] [place] [id number] PCP - General Internal Medicine 12/07/23 documented as of this encounter
--- OUTSIDE RECORDS SUMMARY | 2025-02-08 12:24 | XMS_ITS | Encounter Summary ---
Author Organization [facility] Address [facility] [id number] [address] [place] [address] Care Team Providers Care Reeling Operator Name Role Phone Rogers Geller DO Primary Care Provider [phone] Reason for Visit * Reason Comments Med Refill Encounter Details Date Type Department Care Team (Late st Contact Info) Description 02/08/2024 Refill [facility] - Family Medicine [address] [place] [address] Rogers Geller DO [address] [place] [address] Benign prostatic hyperplasia with lower urinary tract symptoms Social History Tobacco Use Types Packs/Day Years [...] often do you attend chur ch or restorationist services? Never 04/23/2020 Do you belong to any clubs o r organizations such as jewish groups, unions, fraternal or athletic groups, or [...] Recorded Do you need help finding a [facility] career center and/or a training program? No [...] Telephone Encounter - Rogers Geller DO - 02/08/2024 12:46 AM EDT No longer taking this medication documented in this encounter Plan of Treatment Upcoming Encounters Date Type Department Care Team (Late st Contact Info) Description 02/22/2025 2:45 PM EDT Office Visit [facility] - Family Medicine [address] [place] [address] Rogers Geller DO [address] [place] [address] documented as of this encounter Goals Goal [...] as of this encounter Visit Diagnoses Diagnosis Benign prostatic hyperplasia with lower urinary tract symptoms documented in this encounter Additional Health Concerns Assessment Noted Time PHQ-9 Depression Total Score: 0 12/29/19 24 11:25 AM EDT documented as of this encounter Care Teams Reeling Operator Relationship Specialty Start Date End Date Rogers Geller DO [address] [place] [address] PCP - General Internal Medicine 12/07/23 documented as of this encounter
--- OUTSIDE RECORDS SUMMARY | 2025-02-08 12:24 | XMS_ITS | Encounter Summary ---
Author Organization [employer] tem Address [facility] [id number] [address] [place] [address] Care Team Providers Care Hat Finishing Materials Preparer Name Role Phone Rogers Geller Primary Care Provider [phone] Encounter Details Date Type Department Care Team (Late st Contact Info) Description 12/24/2023 Telephone [facility] Internal Medicine - Family Medicine [address] [place] [address] Wild Holliday CMA Social History Tobacco Use [...] often do you attend chur ch or judaism services? Never 04/23/2020 Do you belong to any clubs o r organizations such as yazidism groups, unions, fraternal or athletic groups, or [...] Recorded Do you need help finding a [facility] career center and/or a training program? [...] Telephone Encounter - Wild Holliday CMA - 12/24/2023 8:33 AM EDT ----- Message from Rogers Geller DO sent at 12/23/2023 10:38 PM EDT ----- Reviewed. 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 No new strokeor tumors. His gallbladder did not show any stones or tumors. He needs a follow up appointment to review the results and come up with a treatment plan documented in this encounter Plan of Treatment Upcoming Encounters Date Type Department Care Team (Late st Contact Info) Description 02/22/2025 2:45 PM EDT Office Visit [facility] - Family Medicine [address] [place] [address] Rogers Geller DO [address] [place] [address] documented as of this encounter Goals Goal [...] documented as of this encounter Care Teams Hat Finishing Materials Preparer Relationship Specialty Start Date End Date Rogers Geller DO [address] [place] [address] PCP - General Internal Medicine 12/07/23 documented as of this encounter
--- OUTSIDE RECORDS SUMMARY | 2025-02-08 12:25 | XMS_ITS | Encounter Summary ---
Author Organization [employer] tem Address [id number] [address] [place] [address] Care Team Providers Care Advertising Consultant Name Role Phone Rogers Geller Primary Care Provider [phone] Encounter Details Date Type Department Care Team (Late st Contact Info) Description 12/14/2024 Telephone [facility] Internal Medicine - Family Medicine [address] [place] [address] Wild Holliday CMA Social History Tobacco Use [...] often do you attend chur ch or gnosticism services? Never 04/23/2020 Do you belong to any clubs o r organizations such as orthodox groups, unions, fraternal or athletic groups, or [...] Recorded Do you need help finding a [facility] career center and/or a training program? [...] Telephone Encounter - Wild Holliday CMA - 12/14/2024 9:34 AM EDT ----- Message from Rogers Geller DO sent at 08/22/2024 6:37 PM EST ----- Depression documented in this encounter Plan of Treatment Upcoming Encounters Date Type Department Care Team (Late st Contact Info) Description 02/22/2025 2:45 PM EDT Office Visit [facility] - Family Medicine [address] [place] [address] Rogers Geller DO [address] [place] [address] documented as of this encounter Goals Goal Patient Goal Type Associated Problems Recent Progress Patient-Stated? Author home General Yes Jenny Corona, RN Note: Evaluation of progress towards goal: patient anticipates discharge home with home care at this time Patient is planning to transition to inpatient rehab General Yes Rae Burton, [facility] Note: Evaluation of progress towards goal: Patient is planning to transition to inpatient rehab. documented as of this encounter Visit Diagnoses Not on filedocumented in this encounter Additional Health Concerns Assessment Noted Time PHQ-9 Depression Total Score: 0 12/14/19 25 1:34 PM EDT documented as of this encounter Care Teams Advertising Consultant Relationship Specialty Start Date End Date Rogers Geller DO [address] [place] [address] PCP - General Internal Medicine 12/07/23 documented as of this encounter
--- OUTSIDE RECORDS SUMMARY | 2025-02-08 12:25 | XMS_ITS | Clinical Summary ---
Author Organization [facility] Address [address] [place] [address] Care Team Providers Care Creeler Name Role Phone Cy Hernandez MD Primary Care Provider + Allergies No known active allergies Medications QUEtiapine (SEROquel) 100 mg tabletIndications: Medication refill GIVE 1 TABLET BY MOUTH AT BEDTIME 90 tablet 2 08/21/19 23 Active gabapentin (Neurontin) 400 mg capsuleIndications :Medication refill GIVE 1 CAPSULE BY MOUTH THREE TIMES DAILY 90 capsule 8 12/20/19 23 Active tamsulosin (Flomax) 0.4 mg 24 hr capsuleIndications :Benign prostatic hyperplasia with urinary frequency TAKE 1 CAPSULE BY MOUTH AT BEDTIME * HOLD FOR SBP <90 90 capsule 2 05/08/20 23 Active atorvastatin (Lipitor) 40 mg tabletIndications: Mixed hyperlipidemia TAKE 1 TABLET BY MOUTH EVERY DAY 90 tablet 2 08/31/19 24 Active lisinopril 10 mg tabletIndications: Essential hypertension TAKE 1 TABLET BY MOUTH EVERY DAY IN THE MORNING 90 tablet 2 01/17/20 25 Active amLODIPine (Norvasc) 2.5 mg tabletIndications: Essential hypertension TAKE 1 TABLET BY MOUTH EVERY DAY IN THE EVENING 90 tablet 2 02/08/20 25 Active amLODIPine (Norvasc) 2.5 mg tabletIndications: Essential hypertension TAKE 1 TABLET BY MOUTH EVERY DAY IN THE EVENING 90 tablet 2 02/23/20 24 025 Discontinued lisinopril 10 mg tabletIndications: Essential hypertension TAKE 1 TABLET BY MOUTH EVERY DAY IN THE MORNING 90 tablet 2 02/23/20 24 025 Discontinued Active Problems Problem Noted Date Diagnosed Date Current smoker 08/21/2022 Diverticulitis of colon with perforation 023 Well adult health check 08/21/2022 Essential hypertension 08/21/2022 Hyperglycemia 08/21/2022 Hyperlipidemia 08/21/2022 Hypokalemia 08/21/2022 Overweight 08/21/2022 Purpura 08/21/2022 Acute blood loss anemia 06/29/2022 Multiple fractures of ribs, left side, initial encounter for closed fracture 06/29/2022 Oropharyngeal dysphagia 06/29/2022 Urinary retention 06/29/2022 Fall 06/19/2022 History of colostomy reversal 10/16/2020 Perforated diverticulum 04/23/2020 Encounters Date Type Department Care Team Description 02/06/2025 Refill [facility] [address] [place] [address] Christa Chase MD Essential hypertension 01/13/2025 Refill [facility] [address] [place] [address] Christa Chase MD Essential hypertension from Last 3 Months Immunizations Immunization Administration Dates Next Due Unspecified Sars-Cov-2 Vaccination 07/11/2021, Family History Medical History Relation Name Comments Heart disease Father heart surgery Father Diabetes Mother Kidney failure Mother Lung cancer Mother Relation Name Status Comments Father Mother Social History Tobacco Use Types Packs/Day Years Used Date Smoking Tobacco: Every Day Cigarettes 1 45 Passive Smoke Exposure: Current Smokeless Tobacco: Never Tobacco Cessation:Ready to Q uit: Not Asked; Counseling Given: Not Answered Alcohol Use Standard Drinks/Week Comments Not Currently 0 (1 standard drink = 0.6 oz pur e alcohol) Humiliation, Afraid, Rape, and Kick questionnair e Answer Date Recorded Within the last year, have y ou been afraid of your partner or ex-partner? Patient declined 08/21/2022 Within the last year, have y ou been humiliated or emotionally abused in other ways by your partner or ex-partner? Patient declined 08/21/2022 Within the last year, have y ou been kicked, hit, slapped, or otherwise physically hurt by your partner or ex-partner? Patient declined 08/21/2022 Within the last year, have y ou been raped or forced to have any kind of sexual activity by your partner or ex-partner? Patient declined 08/21/2022 Social Connection and Isolat ion Panel [NHANES] Answer Date Recorded In a typical week, how many times do you talk on the phone with family, friends, or neighbors? More than three times a week 08/21/2022 How often do you get togethe r with friends or relatives? More than three times a week 08/21/2022 How often do you attend chur ch or hoahaoism services? Never 08/21/2022 Do you belong to any clubs o r organizations such as hoahaoism groups, unions, fraternal or athletic groups, or school groups? No 08/21/2022 How often do you attend meet ings of the clubs or organizations you belong to? Never 08/21/2022 Are you , , di vorced, , never , or living with a partner? 08/21/2022 AUDIT-C Answer Date Recorded Q1: How often do you have a drink containing alcohol? Never 08/21/2022 Q2: How many drinks containi ng alcohol do you have on a typical day when you are drinking? Patient does not drink Q3: How often do you have si x or more drinks on one occasion? Never 08/21/2022 Overall Financial Resource Strain (CARDIA) Answe r Date Recorded How hard is it for you to pa y for the very basics like food, housing, medical care, and heating? Not hard at all 08/21/2022 PHQ-2 Answer Date Recorded Patient Health Questionnaire-2 Score 0 11/27/2022 [facility] - Occupational Stress Questionnaire Answer Date Recorded Do you feel stress - tense, restless, nervous, or anxious, or unable to sleep at night because your mind is troubled all the time - these days? Not at all 08/21/2022 Exercise Vital Sign Answer Date Recorde d On average, how many days pe r week do you engage in moderate to strenuous exercise (like a brisk walk)? 5 days 08/21/2022 On average, how many minutes do you engage in exercise at this level? 30 min 08/21/2022 Hunger Vital Sign Answer Date Recorded Within the past 12 months, y ou worried that your food would run out before you got the money to buy more. Never true 08/21/19 23 Within the past 12 months, t he food you bought just didn't last and you didn't have money to get more. Never true 08/21/2022 PRAPARE - Transportation Answer Date Re corded In the past 12 months, has l ack of transportation kept you from medical appointments or from getting medications? No 08/03 In the past 12 months, has l ack of transportation kept you from meetings, work, or from getting things needed for daily living? No 08/21/2022 Housing Stability Vital Sign Answer Kaden e Recorded In the last 12 months, was t here a time when you were not able to pay the mortgage or rent on time? No 08/21/2022 In the last 12 months, how many places have you lived? 2 08/21/2022 In the last 12 months, was t here a time when you did not have a steady place to sleep or slept in a alf (including now)? No 08/21/2022 ME Safety & Environment Answer Date Rec orded Fear of Current or Ex-Partner Not on file Emotionally Abused Not on file 09/24/2023 Physically Abused Not on file 09/24/2023 Sexually Abused Not on file 09/24/2023 Physically or Sexually Abused Not on file Sex and Gender Information Value Date Recorded Sex Assigned at Not on file Legal Sex Male 1:50 AM EST Gender Identity Not on file Sexual Orientation Not on file Last Filed Vital Signs Vital Sign Reading Time Taken Comments Blood Pressure 127/80 11/27/2022 4:04 PM EDT Pulse 56 11/27/2022 4:04 PM EDT Temperature 37.3 C (99.1 F) 11/27/2022 4:00 PM EDT Respiratory Rate 18 11/27/2022 4:00 PM EDT Oxygen Saturation 96% 11/27/2022 4:00 PM EDT Inhaled Oxygen Concentration - - Weight 80.3 kg (177 lb) 11/27/2022 4:00 PM EDT Height 177.8 cm (5' 10 ) 11/27/2022 4:00 PM EDT Body Mass Index 25.4 11/27/2022 4:00 PM EDT Plan of Treatment Health Maintenance Due Date Last Done Comments Depression Screening 1978 Hepatitis B Vaccines (1 of 3 - 19+ 3-dose series) 1985 Pneumococcal Vaccine: Pediatrics (0 to 5 Years) and At-Risk Patients (6 to 64 Years) (1 of 2 - PCV) 1985 Adult Tetanus 1988 Zoster Vaccines (1 of 2) 2016 COVID-19 Vaccine (3 - 2023-2 5 season) 2024 07/11/2021, 06/19/2021 Influenza Vaccine (#1) 2025 HIB Vaccines Aged Out No longer eligi ble based on patient's age to complete this topic HPV Vaccines Aged Out No longer eligi ble based on patient's age to complete this topic IPV Vaccines Aged Out No longer eligi ble based on patient's age to complete this topic Meningococcal B Vaccine Aged Out No l onger eligible based on patient's age to complete this topic Meningococcal Vaccine Aged Out No thania saeid eligible based on patient's age to complete this topic Rotavirus Vaccines Aged Out No longer eligible based on patient's age to complete this topic Insurance [employer] [place] [employer] Care Teams Creeler Relationship Specialty Start Date End Date Cy Hernandez MD [address] [place] [address] PCP - General Internal Medicine 08/21/22
--- OUTSIDE RECORDS SUMMARY | 2025-02-08 12:25 | XMS_ITS | Encounter Summary ---
[id number] [address] [place] [address] Care Team Providers Care Credit Interviewer Name Role Phone Rogers Geller Primary Care Provider [phone] Reason for Visit * Reason Onset Date Comments Med Refill 09/18/2020 Encounter Details Date Type Department Care Team (Late st Contact Info) Description 09/18/2020 Refill [facility] [address] [place] [phone] Isaias Hicks, DO [address] [place], [place] [id number] Perforated diverticulum Social History Tobacco Use Types Packs/Day Years [...] often do you attend chur ch or jain services? Never 04/23/2020 Do you belong to any clubs o r organizations such as jainism groups, unions, fraternal or athletic groups, or [...] Somewhat hard 04/23/2020 PHQ-2 Answer Date Recorded PHQ-2 Score 0 04/23/2020 PRAPARE - Transportation Answer Date Re corded In the past 12 months, has l ack of transportation kept you from medical appointments or from getting medications? No 04/04 In the past 12 months, has l ack of transportation kept you from meetings, work, or from getting things needed for daily living? No 04/23/2020 Childcare Answer Date Recorded Childcare No 04/23/2020 Employment Answer Date Recorded Employment No 04/23/2020 Purpose - Life Answer Date Recorded Purpose and direction in life Unknown Sex and Gender Information Value Date Recorded Sex Assigned at Not on file Legal Sex Male 12:07 PM EDT Gender Identity Not on file Sexual Orientation Not on file COVID-19 Exposure Response Date Recorded In the last month, have you been in contact with someone who was confirmed or suspected to have Coronavirus / COVID-19? No / Unsure 09/03/2020 10:19 AM EST documented as of this encounter Plan of Treatment Upcoming Encounters Date Type Department Care Team (Late st Contact Info) Description 02/22/2025 2:45 PM EDT Office Visit [facility] Medicine - Family Medicine [address] [place] [phone] Rogers Geller DO [address] [place] [address] documented as of this encounter Goals Goal Patient Goal Type Associated Problems Recent Progress Patient-Stated? Author home General Yes Jenny Corona, RN Note: Evaluation of progress towards goal: patient anticipates discharge home with home care at this time documented as of this encounter Visit Diagnoses Diagnosis Perforated diverticulum Diverticulosis of colon (without mention of hemorrhage) documented in this encounter Additional Health Concerns Infection Onset Date Last Indicated Resolved Time MRSA Comment:WND ABD INCISION SWAB(10/20/20) 10/20/2020 10/20/2020 03/29/2021 11:20 PM EDT Assessment Noted Time PHQ-9 Depression Total Score: 0 09/03/19 12:23 PM EST documented as of this encounter Care Teams Credit Interviewer Relationship Specialty Start Date End Date Rogers Geller DO [address] [place] [address] PCP - General Internal Medicine 12/07/23 documented as of this encounter
--- OUTSIDE RECORDS SUMMARY | 2025-02-08 12:25 | XMS_ITS | Encounter Summary ---
Author Organization [facility] Address [address] [place] [address] Care Team Providers Care Assistant Community Manager Name Role Phone Cy Hernandez MD Primary Care Provider + Reason for Visit * Reason Comments Med Refill Encounter Details Date Type Department Care Team (Late st Contact Info) Description 02/06/2025 Refill [facility] [address] [place] [address] Christa Chase MD [address] [facility] [address] [facility] General [place] [phone] Essential hypertension Social History Tobacco Use Types Packs/Day Years Used Date Smoking Tobacco: Every Day Cigarettes 1 45 Passive Smoke Exposure: Current Smokeless Tobacco: Never Alcohol Use Standard Drinks/Week [...] often do you attend chur ch or voodoo services? Never 08/21/2022 Do you belong to any clubs o r organizations such as restorationist groups, unions, fraternal or athletic groups, or [...] Recorded Patient Health Questionnaire-2 Score 0 11/27/2022 [facility] - Occupational Stress Questionnaire Answer Date Recorded [...] place to sleep or slept in a longterm (including now)? No 08/21/2022 OR Safety & Environment Answer Date Rec orded [...] as of this encounter Plan of Treatment Not on file documented as of this encounter Visit Diagnoses Diagnosis Essential hypertension Unspecified essential hypertension documented in this encounter Care Teams Assistant Community Manager Relationship Specialty Start Date End Date Cy Hernandez MD [address] [place] [address] PCP - General Internal Medicine 08/21/22 documented as of this encounter
--- OUTSIDE RECORDS SUMMARY | 2025-02-08 12:25 | XMS_ITS | Encounter Summary ---
Author Organization [employer] [facility] Address [id number] [address] [place] [address] Care Team Providers Care Coat Checker Name Role Phone Rogers Geller Primary Care Provider [phone] Reason for Visit * Reason Onset Date Comments Med Refill 11/08/2020 Encounter Details Date Type Department Care Team (Late st Contact Info) Description 11/08/2020 Refill [facility]-Tra[facility] [address] [place] [address] Catrachita Steele CMA Social History Tobacco Use [...] often do you attend chur ch or congregational services? Never 04/23/2020 Do you belong to any clubs o r organizations such as jew groups, unions, fraternal or athletic groups, or [...] Recorded Do you need help finding a [employer] center and/or a training program? No 10/16/2020 [...] have Coronavirus / COVID-19? No / Unsure 11/09/2020 1:45 PM EDT documented as of this encounter Plan of Treatment Upcoming Encounters Date Type Department Care Team (Late st Contact Info) Description 02/22/2025 2:45 PM EDT Office Visit [facility] - Family Medicine [address] [place] [address] Rogers Geller, [address] [place] [address] documented as of this encounter Goals Goal [...] documented as of this encounter Care Teams Coat Checker Relationship Specialty Start Date End Date Rogers Geller DO [address] [place] [address] PCP - General Internal Medicine 12/07/23 documented as of this encounter
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
--- OUTSIDE RECORDS SUMMARY | 2025-02-08 12:25 | XMS_ITS | Patient Health Record ---
Author Organization [facility] vices Address [address] [place], [place] [address] Care Team Providers Care Extruding Press Operator Name Role Phone Cy Nevarez Unavailable [phone] Allergies No Known Allergies Reason For Referral No Information Medications Medication SIG (Take, Route, Frequency, Duration) Notes Start Date End Date Status Lisinopril 10 MG 1 tablet Orally Once a day for 90 days Active Atorvastatin Calcium 40 MG 1 tablet Oral ly Once a day for 90 days Active amLODIPine Besylate 2.5 MG 1 tablet Oral ly Once a day for 90 days evening Active Spironolactone 25 MG 1 tablet Orally Active Social History Tobacco Use: Social History Observation Description Date Details (start date - stop date) Current Smoker NA - NA Sex Assigned At : Social History Observation Description Sex Assigned At Male Tobacco Use/Smoking Question Answer Notes Tobacco use: current smoker Problems Problem Type SNOMED Code ICD Code Onset Dates Problem Status W/U Status Risk Notes Problem Overweight (853741120) Overweight (E66.3) Active confirmed Problem Hypokalemia (55667771) Hypokalemia (E87.6) Active confirmed Problem Essential hypertension (65739348) Essential hypertension (I10) Active confirmed Comment:K is low BP is still high will start him on Spironolactone 25 mg daily and Amlodipine 2.5 mg daily repeat labs in 1 week Mg supplement as well losing K through intestine also plays a role here FU in 2 weeks, Problem Hyperlipidemia (13637279) Hyperlipidemia (E78.5) Active confirmed Comment:Will start him on Statin,Story: CVD score 13.4%, Problem Depression screening (994907275) Screening for depression (Z13.31) Active confirmed Description:Dep ression screen Problem Current smoker (94007737) Current smoker (F17.200) Active confirmed Problem Purpura (08849237) Purpura (D69.2) Active confirmed Comment:only on right arm and mildly on the left forearm, no other parts of the body no Intestinal bleeding advised on taking Multivitamin will check vitamin C level Can also be due to ASA that he takes daily his risk score is more than 10% so can take it for primary prevention, but with increased risk of bleeding, Problem Follow-up status (373780847) Follow up (Z09) Active confirmed Story:se e 05/06/21 message--KH, Problem Adult health examination (245812214) Encounter for wellness examination in adult (Z00.00) Active confirmed Problem Diverticulitis of colon with perforation (98824078) Diverticulitis of colon with perforation (K57.20) Active confirmed Story:S/p appendectomy, sigmoid colectomy and end Colostomy Happened in Apr 2020, following up with Dr. Hicks [facility], Problem Hyperglycemia (71754588) Hyperglycemia (R73.9) Active confirmed Problem Immunization education (780473544) Immunization counseling (Z71.85) Active confirmed Story:declined Pneumovax, Flu, Plan Of Treatment No Information Insurance Providers Payer Name Payer Address Payer Phone Subscriber Number Group Number Insured Name Patient Relationship to Insured Coverage Start Date Coverage End Date [facility] [address] [place], [place] [id number] Maxwell Gonsalez Self - patient is the insured 0 Medicaid CFC after [facility] [address] [place] [address] [id number] Maxwell Harris Self - patient is the insured 0 Medical (General) History Medical History History ICD Code Hyperlipidemia, COMMENTS: ASCVD score 13 .4% Immunization counseling, declined Pneumo vax, Flu Overweight Surgical History Surgery Date(Month/Year) cheekbone repair Tonsillectomy and adenoidectomy
--- OUTSIDE RECORDS SUMMARY | 2025-02-08 12:25 | XMS_ITS | Encounter Summary ---
Author Organization [employer] [facility] Address [id number] [address] [place] [address] Care Team Providers Care Prop Maker Name Role Phone Rogers Geller Primary Care Provider [phone] Encounter Details Date Type Department Care Team (Late st Contact Info) Description 11/08/2020 Telephone [facility] General Surgery-Trauma [address] [place] [address] Catrachita Steele CMA Social History Tobacco Use [...] often do you attend chur ch or faith services? Never 04/23/2020 Do you belong to [...] Recorded Do you need help finding a [facility], [facility] career center and/or a training program? No [...] Telephone Encounter - Catrachita Steele CMA - 11/08/2020 1:34 PM EDT Patient would like to have his meds refilled. The motrin 800mg and the Oxycodone for pain. He says he tried on his my chart but it wont let him do it. Please advise. * Telephone Encounter - Catrachita Steele CMA - 11/08/2020 1:34 PM EDT Patient called back to let us know that he would not be receiving nursing services today because hehad an appointment with Dr. Hicks. The nurses told him that he could get a dressing change at the doctors offiice. documented in this encounter Plan of Treatment Upcoming Encounters Date Type Department Care Team (Late st Contact Info) Description 02/22/2025 2:45 PM EDT Office Visit [facility] Internal Medicine - Family Medicine [address] [place] [address] Rogers Geller DO [address] [place] [address] documented as of this encounter Goals Goal [...] documented as of this encounter Care Teams Prop Maker Relationship Specialty Start Date End Date Rogers Geller DO [address] [place] [address] PCP - General Internal Medicine 12/07/23 documented as of this encounter
--- OUTSIDE RECORDS SUMMARY | 2025-02-08 12:25 | XMS_ITS | Encounter Summary ---
Author Organization [employer] s [facility] Address [id number] [address] [place] [address] Care Team Providers Care Associate Director Qa Name Role Phone Rogers Geller Primary Care Provider [phone] Encounter Details Date Type Department Care Team (Late st Contact Info) Description 09/[facility]2020 [facility] [address] [place] [phone] Rosemary Najera MA Social History Tobacco Use Types Packs/Day Years [...] any clubs o r organizations such as mu-ism groups, unions, fraternal or athletic groups, or [...] AM EST documented as of this encounter Miscellaneous Notes * Telephone Encounter - Rosemary Najera MA - 09/20/2020 8:41 AM EST TALKED TO CAROL PER PATH REPORT LOOKED GOOD PATIENT IS READY FOR TAKE DOWN MARISA. HE LET HIM KNOW THAT HE DIDN'T NEED TO COME TO HIS APPOINTMENT TOMORROW UNLESS HE HAD QUESTION DUE TO THE WEATHER AND HIS DRIVE. CAROL WAS HAPPY TO HEAR THAT. I TOLD HIM I WOULD REFILL HIS IBF AND CALL HIM LATER TODAY WITH A SURGERY DATE. Rosemary Najera MA 09/20/20 0844 documented in this encounter Plan of Treatment Upcoming Encounters Date Type Department Care Team (Late st Contact Info) Description 02/22/2025 2:45 PM EDT Office Visit [facility] Internal Medicine - Family Medicine [address] [place] [address] Rogers Geller, DO [address] [facility] [place] [address] documented as of this encounter Goals Goal [...] documented as of this encounter Care Teams Associate Director Qa Relationship Specialty Start Date End Date Rogers Geller DO [address] [place] [address] PCP - General Internal Medicine 12/07/23 documented as of this encounter
--- OUTSIDE RECORDS SUMMARY | 2025-02-08 12:25 | XMS_ITS | Encounter Summary ---
Author Organization [facility] Address [address] [place] [address] Care Team Providers Care Shorts Sifter Name Role Phone Cy Hernandez MD Primary Care Provider + Reason for Visit * Reason Comments Med Refill Encounter Details Date Type Department Care Team (Late st Contact Info) Description 12/24/2022 Refill [facility] [address] [place] [phone] Aliyah Billings PA-C [address] [facility] [address] [facility] [place] [phone] Other headache syndrome Social History Tobacco Use Types Packs/Day Years [...] attend chur ch or taoist services? Never 08/21/2022 Do you belong to [...] Recorded Patient Health Questionnaire-2 Score 0 11/27/2022 [facility] of Occupat ional [facility] - Occupational Stress Questionnaire Answer [...] place to sleep or slept in a care home (including now)? No 08/21/2022 [place] Safety & Environment Answer Date Rec orded Within the last year, have y ou [...] your partner or ex-partner? Patient declined 08/21/2022 Physically or Sexually Abused Not on file Sex and Gender Information Value Date Recorded Sex Assigned at Not on file Legal Sex Male 1:50 AM EST Gender Identity Not on file Sexual Orientation Not on file COVID-19 Exposure Response Date Recorded In the last 10 days, have yo u been in contact with someone who was confirmed or suspected to have Coronavirus/COVID-19? No / Unsure 11/27/2022 3:50 PM EDT documented as of this encounter Plan of Treatment Not on file documented as of this encounter Visit Diagnoses Diagnosis Other headache syndrome documented in this encounter Care Teams Shorts Sifter Relationship Specialty Start Date End Date Khorsand Raffi, Cy, MD [address] [facility] [place] [address] PCP - General Internal Medicine 08/21/22 documented as of this encounter
--- OUTSIDE RECORDS SUMMARY | 2025-02-08 12:25 | XMS_ITS | Encounter Summary ---
Author Organization [facility] Address [address] [place] [address] [place] [address] Care Team Providers Care Hair Dryer Name Role Phone Rogers Geller MD Primary Care Provider [phone] Encounter Details Date Type Department Care Team (Late st Contact Info) Description 02/07/2025 Orders Only [facility] [address] [place] [address] Anabell Malave Preop examination Social History Tobacco Use Types Packs/Day Years [...] Visit [facility] [address] [facility] [address] [place] [phone] Rogelio Kirk DPM [address] [address] 03/16/2025 4:20 PM EDT Office Visit [facility] [address] [place] [address] [place] [address] Rogelio Kirk DPM [address] [address] 04/06/2025 3:40 PM EDT Procedure Visit [facility] 112 [facility] [address] [place] [address] Rogelio Kirk DPM [address] [facility] [address] [place] [address] documented as of this encounter Visit Diagnoses Diagnosis Preop examination Unspecified pre-operative examination documented in this encounter Care Teams Hair Dryer Relationship Specialty Start Date End Date Rogers Geller MD [address] [place] [address] PCP - General Internal Medicine 01/04/24 documented as of this encounter
--- OUTSIDE RECORDS SUMMARY | 2025-02-08 12:25 | XMS_ITS | Encounter Summary ---
Author Organization [facility] Address [address] [place] [address] Care Team Providers Care Home Comfort Advisor Name Role Phone Rogers Geller MD Primary Care Provider [phone] Encounter Details Date Type Department Care Team (Late st Contact Info) Description 02/07/2025 Orders Only [facility] [address] [place] [address] Anabell Malave Preop examination Social History Tobacco [...] Visit [facility] [address] [facility] [address] [place] [address] Rogelio Kirk DPM [address] [address] 03/16/2025 4:20 PM EDT Office Visit [facility] [address] [place] [address] [place] [address] Rogelio Kirk DPM [address] [address] 04/06/2025 3:40 PM EDT Procedure Visit [facility] 112 [facility] 120 [place] [address] Rogelio Kirk DPM 3006 [facility] 5 [place] [address] Scheduled Orders Name Type Priority Associated Diagnoses Orde r Schedule Basic metabolic panel Lab Routine Preop examination Expected: 02/07/2025 (Approximate), Expires: 04/10/2025 CBC and differential Lab Routine Preop examination Expected: 02/07/2025 (Approximate), Expires: 04/10/2025 ECG 12 lead ECG Routine Preop examination Expected: 02/07/2025 (Approximate), Expires: 02/07/2026 documented as of this encounter Visit Diagnoses Diagnosis Preop examination Unspecified pre-operative examination documented in this encounter Care Teams Home Comfort Advisor Relationship Specialty Start Date End Date Rogers Geller MD [address] [place] [address] PCP - General Internal Medicine 01/04/24 documented as of this encounter
--- OUTSIDE RECORDS SUMMARY | 2025-02-08 12:25 | XMS_ITS | Encounter Summary ---
Author Organization [employer] [facility] Address [id number] [address] [place] [address] Care Team Providers Care Vocational Examiner Name Role Phone Rogers Geller Primary Care Provider [phone] Encounter Details Date Type Department Care Team (Late st Contact Info) Description 08/15/2020 Telephone [facility] General Surgery-Trauma [address] [place] [phone] Rosemary Najera MA Social History Tobacco Use Types Packs/Day Years Used Date Smoking Tobacco: Every Day Smokeless Tobacco: Never Alcohol Use Standard Drinks/Week [...] often do you attend chur ch or buddhist services? Never 04/23/2020 Do you belong to any clubs o r organizations such as hinduism groups, unions, fraternal or athletic groups, or [...] have Coronavirus / COVID-19? No / Unsure 08/15/2020 1:31 PM EST documented as of this encounter Miscellaneous Notes * Telephone Encounter - Rosemary Najera MA - 08/15/2020 3:12 PM EST CALLED PATIENT TO GIVE SURGERY INFORMATION. HE VOICED UNDERSTANDING. I WILL SEND INFORMATION TO HIS HOME ADDRESS, HE DOES NOT HAVE AN E-MAIL. Rosemary Najera MA 08/15/20 1517 documented in this encounter Plan of Treatment Upcoming Encounters Date Type Department Care Team (Late st Contact Info) Description 02/22/2025 2:45 PM EDT Office Visit [facility] Internal Medicine - Family Medicine [address] [place] [address] Rogers Geller DO [address] [place] [address] documented as of this encounter Goals Goal [...] Noted Time PHQ-9 Depression Total Score: 0 04/23/20 11:14 AM EDT documented as of this encounter Care Teams Vocational Examiner Relationship Specialty Start Date End Date Rogers Geller DO [address] [place] [address] PCP - General Internal Medicine 12/07/23 documented as of this encounter
--- OUTSIDE RECORDS SUMMARY | 2025-02-08 12:25 | XMS_ITS | Clinical Summary ---
Author Organization [facility] Address [address] [address] Care Team Providers Care Event Sales Manager Name Role Phone Rogers Geller MD Primary Care Provider [phone] Allergies No known active allergies Medications atorvastatin (Lipitor) 40 MG tablet Take 40 mg by mouth Daily Active cyanocobalamin (Vitamin B-12) 1000 MCG tablet Take 1,000 mcg by mouth in the morning. 4 Active meloxicam (Mobic) 15 MG tablet Take 15 mg by mouth in the morning. 4 Active acetaminophen (Tylenol) 500 MG tablet Take 500 mg by mouth every 6 (six) hours if needed 4 Active latanoprost (Xalatan) 0.005 % ophthalmic solution INSTILL ONE DROP IN EACH EYE BEFORE BED 4 Active pregabalin (Lyrica) 75 MG capsule Take 75 mg by mouth in the morning and 75 mg in the evening and 75 mg before bedtime. Active HYDROcodone-ac etaminophen ([place]) 7.5-325 MG tablet Take 1 tablet by mouth 2 (two) times a day as needed 4 Active buPROPion XL (Wellbutrin XL) 150 MG 24 hr tablet Take 150 mg by mouth in the morning. Active naloxone (Narcan) 4 mg/0.1 mL nasal spray 4 Active topiramate 50 MG tablet Take 50 mg by mouth in the morning and 50 mg before bedtime. 4 01/27/20 25 Discontinued venlafaxine XR (Effexor XR) 37.5 MG 24 hr capsuleIndicat ions:Chronic daily headache Take 1 capsule (37.5 mg) by mouth at bedtime Do not crush or chew. Do not start before October 01, 2024. 90 capsule 1 5 01/27/20 25 Discontinued oxyCODONE (Roxicodone) 5 MG immediate release tablet Take 5 mg by mouth every 8 (eight) hours if needed 5 01/28/20 25 Active Problems Problem Noted Date Diagnosed Date TBI (traumatic brain injury) 02/15/2024 Current smoker 08/21/2022 Diverticulitis of colon with perforation 023 Essential hypertension 08/21/2022 Hyperglycemia 08/21/2022 Hyperlipidemia 08/21/2022 Hypokalemia 08/21/2022 Overweight 08/21/2022 Purpura 08/21/2022 Well adult health check 08/21/2022 Acute blood loss anemia 06/29/2022 Multiple fractures of ribs, left side, initial encounter for closed fracture 06/29/2022 Oropharyngeal dysphagia 06/29/2022 Urinary retention 06/29/2022 Fall 06/19/2022 History of colostomy reversal 10/16/2020 Perforated diverticulum 04/23/2020 Encounters Date Type Department Care Team Description 02/07/2025 Orders Only [facility] [address] [facility] [place] [address] Anabell Malave Preop examination 02/07/2025 Orders Only [facility] [address] [facility] [place] [address] Anabell Malave Preop examination 01/26/2025 3:40 PM EDT Office Visit [facility] [address] [place] [address] Rogelio Kirk DPM Hav (hallux abducto valgus), left (Primary Dx); Acquired deformity of left toe; Pain due to onychomycosis of toenails of both feet 01/26/2025 3:30 PM EDT Ancillary Procedure [facility] [address] [address] [place] [address] 01/26/2025 Telephone [facility] 112 [facility] 120 [place] [address] Rogelio Kirk DPM 01/26/2025 Bamboo flowsheet [facility] [address] [place] [address] Rogelio Kirk DPM 01/26/2025 Travel from Last 3 Months Social History Tobacco [...] Sign Reading Time Taken Comments Blood Pressure 128/80 09/26/2024 3:41 PM EST Pulse 72 09/26/2024 3:41 PM EST Temperature - - Respiratory Rate 18 01/26/2025 3:06 PM EDT Oxygen Saturation 96% 09/26/2024 3:41 PM EST Inhaled Oxygen Concentration - - Weight 86.2 kg (190 lb) 01/26/2025 3:06 PM EDT Height 177.8 cm (5' 10 ) 01/26/2025 3:06 PM EDT Body Mass Index 27.26 01/26/2025 3:06 PM EDT Plan of Treatment Upcoming Encounters Date Type Department Care Team (Late st Contact Info) Description 03/02/2025 4:40 PM EDT Office Visit [facility] [address] [place] [address] Rogelio Kirk DPM [address] [address] 03/16/2025 4:20 PM EDT Office Visit [facility] [address] [place] [address] Rogelio Kirk DPM [address] [address] 04/06/2025 3:40 PM EDT Procedure Visit [facility] 112 [facility] [address] [place] [address] Rogelio Kirk DPM 3006 [facility] [place] [address] Health Maintenance Due Date Last Done Comments CT Colonography 1966 Colonoscopy 1966 Colorectal Cancer Screening 1966 FIT-DNA 1966 FIT 1966 FOBT 1966 Sigmoidoscopy 1966 Influenza Vaccine (#1) 2025 Procedures Procedure Name Priority Date/Time Associated Diagnosis Comments XR FOOT 3+ VIEWS LEFT Routine 01/26/2025 3:26 PM EDT Hav (hallux abducto valgus), left from Last 3 Months Results * XR foot 3+ views left (01/26/2025 3:26 PM EDT) Anatomical Region Laterality Modality Lower Extremities, Foot Left [facility] Narrative 01/26/2025 3:26 PM EDT Imaging Result: HAV deformity left with intermetatarsal angle of 15 degrees with notable digital deformities 2 through 5 digits left foot and degenerative changes of the midfoot Rogelio Kirk DPM IMG XR PROCEDURES Final Res ult from Last 3 Months Insurance [facility] MEDICAID Care Teams Event Sales Manager Relationship Specialty Start Date End Date Rogers Geller MD [address] [place] [address] PCP - General Internal Medicine 01/04/24
--- OUTSIDE RECORDS SUMMARY | 2025-02-08 12:25 | XMS_ITS | Encounter Summary ---
Author Organization [facility] Address [facility] [place] [address] Care Team Providers Care Neurology Technologist Name Role Phone Yimi Rogers Prasad Primary Care Provider [phone] Frandy Caba DO Unavailable [phone] Source Comments In the event this information is protected by the Federal Confidentiality of Alcohol and Drug AbusePatient Records regulations: The Federal rules restrict any use of the information to criminally investigate or prosecute any alcohol or drug abuse patient.[facility] Encounter Details Date Type Department Care Team (Late st Contact Info) Description 01/24/2025 Telephone Neurology [facility] [address] [place] [address] Jus Wisdom MD [address] [place] [address] Social History Tobacco Use Types Packs/Day Years Used Date Smoking Tobacco: Every Day Cigarettes Smokeless Tobacco: Never Alcohol Use Standard Drinks/Week Comments Not Currently 0 (1 standard drink = 0.6 oz pur e alcohol) [facility] Utilities Answer Date Recorded In the past 12 months has [employer], gas, oil, or water company threatened [...] any time in the past 12 m [facility], were you homeless or living in a group home (including now)? Yes 11/17/2024 Area Deprivation Index Answer Date Nav rded National Score (1-100), lower number is lower ri sk 94 10/25/2024 State Score (1-10), lower number is lower risk 9 10/25/2024 Data from: https://www.neighborhoodatlas.medicine.[facility].edu/. Last address used for calculation [address] 10/25/2024 Sex and Gender Information Value [...] of Assessment Author No 11/19/2024 11:04 AM EDT Lisa Sheridan RN * Because of a physical, mental, or emotional condition, do you have difficulty doing errands alone such as visiting a doctor's office or shopping? Answer Date of Assessment Author No 11/19/2024 11:04 AM EDT Lisa Sheridan RN documented as of this encounter Mental Status * Because of a physical, mental, or emotional condition, do you have serious difficulty concentrating, remembering, or making decisions? Answer Entry Date Author No 11/19/2024 11:04 AM EDT Lisa Sheridan RN documented in this encounter Miscellaneous Notes * Telephone Encounter - Ese Brizuela - 01/24/2025 1:53 PM EDT Patient had to cancel his 6 week post op follow up due to his provide a ride did not show up. He isscheduled for 03/28/2025. There was nothing sooner. On wait list. He needs 2 days notice to get ridescheduled. Can we get him in sooner due to being post op? Please advise. [phone] documented in this encounter Plan of Treatment Upcoming Encounters Date Type Department Care Team (Late st Contact Info) Description 02/21/2025 3:00 PM EDT Office Visit Spine Surgery [facility] [address] [place] [address] Jus Wisdom MD [address] [place] [address] 6 week post op follow up with pre-visit XR documented as of this encounter Visit Diagnoses Not on filedocumented in this encounter Care Teams Neurology Technologist Relationship Specialty Start Date End Date Rogers Geller [address] [place] [address] PCP - General Internal Medicine 07/14/24 Frandy Caba DO [address] [place] [address] Referring Neurology 07/14/24 documented as of this encounter
--- OUTSIDE RECORDS SUMMARY | 2025-02-08 12:25 | XMS_ITS | Encounter Summary ---
Author Organization [employer] Sys [employer] Address [id number] [address] [place] [address] Care Team Providers Care Youth Counselor Name Role Phone Rogers Geller Primary Care Provider Reason for Visit * Reason Onset Date Comments Med Refill 11/08/2020 Encounter Details Date Type Department Care Team (Late st Contact Info) Description 11/08/2020 Refill [facility] General Surgery-Trauma [address] [place] [address] Catrachita Steele CMA Social History Tobacco Use [...] often do you attend chur ch or pentecostalism services? Never 04/23/2020 Do you belong to any clubs o r organizations such as methodist groups, unions, fraternal or athletic groups, or [...] Recorded Do you need help finding a [employer] center and/or a training program? No 10/16/2020 [...] Internal Medicine - Family Medicine [address] [place] [address] Rogers Geller, [address] [place] [address] documented as of this encounter Goals Goal [...] documented as of this encounter Care Teams Youth Counselor Relationship Specialty Start Date End Date Rogers Geller DO [address] [place] [address] PCP - General Internal Medicine 12/07/23 documented as of this encounter
--- OUTSIDE RECORDS SUMMARY | 2025-02-08 12:25 | XMS_ITS | Encounter Summary ---
Author Organization [facility] Address [address] [address] Care Team Providers Care Meter Installer Name Role Phone Cy Hernandez MD Primary Care Provider + Encounter Details Date Type Department Care Team (Late st Contact Info) Description 07/16/2022 Lab Requisition [facility] [address] [place] [phone] October, MD Julianne [address], [facility] [address] [place] [address] Social History Tobacco Use Types Packs/Day Years Used Date Smoking Tobacco: Never Assessed Sex and Gender Information Value Date Recorded Sex Assigned at Not on file Legal Sex Male 1:50 AM EST Gender Identity Not on file Sexual Orientation Not on file documented as of this encounter Plan of Treatment Not on file documented as of this encounter Procedures Procedure Name Priority Date/Time Associated Diagnosis Comments HEMOGLOBIN A1C Routine 07/16/2022 4:20 AM EST LIPID PANEL Routine 07/16/2022 4:20 AM EST COMPREHENSIVE METABOLIC PANEL Routine 07/16/2022 4:20 AM EST documented in this encounter Results * (ABNORMAL) Lipid panel (07/16/2022 4:20 AM EST) Triglycerides 116 40 - 149 mg/dL 07/16/2022 8:[address] [facility] ([place]) Comment: TRIGLYCERIDE REFERENCE RANGE: 20 YEARS AND OLDER CARDIOVASCULAR RISK LESS THAN 150 mg/dL LOW RISK 150 TO 199 mg/dL BORDERLINE RISK 200 mg/dL AND GREATER HIGH RISK Cholesterol 116(L) 120 - 200 mg/dL 07/16/2022 8:[address] [facility] ([facility]) LDL Calculated 49 0 - 160 mg/dL 07/16/2022 8:[address] [facility] ([facility]) HDL 44 23 - 92 mg/dL 07/16/2022 8:[address] [facility] ([facility]) Non HDL Cholesterol 72 07/16/2022 8:[address] [facility] ([facility]) Total VLDL-C 23 0 - 40 mg/dL 07/16/2022 8:[address] [facility] ([facility]) Cholesterol/HDL Ratio 2.64 mg/dL 07/16/2022 8:[address] [facility] ([facility]) Blood Venous blood specimen / Unknown Venipuncture / Unknown 07/16/2022 4:20 AM EST 07/16/2022 7:41 AM EST us Julianne Park MD LAB BLOOD ORDERABLES Final Resu lt [facility]) [address] [place] [address] * Hemoglobin A1c (07/16/2022 4:20 AM EST) Hemoglobin A1C 4.3 4.0 - 6.0 % 07/16/2022 12:[address] [facility] ([facility]) Estimated Average Glucose 76.71 mg/dL 07/16/2022 12:[address] [facility] ([facility]) Blood Venous blood specimen / Unknown Venipuncture / Unknown 07/16/2022 4:20 AM EST 07/16/2022 7:42 AM EST us Julianne Park MD LAB BLOOD ORDERABLES Final Resu lt [facility]) [address] [place] [address] * (ABNORMAL) Comprehensive metabolic panel (07/16/2022 4:20 AM EST) Sodium 142 136 - 145 mmol/L 07/16/2022 8:47 AM [facility] ([facility]) Potassium 4.3 3.5 - 5.1 mmol/L 07/16/2022 8:47 AM [facility] ([facility]) Chloride 109(H) 98 - 107 mmol/L 07/16/2022 8:47 AM [facility] ([facility]) CO2 26 21 - 31 mmol/L 07/16/2022 8:47 AM [facility] ([facility]) Anion Gap 7 7 - 20 mmol/L 07/16/2022 8:47 AM [facility] ([facility]) BUN 18 7 - 25 mg/dL 07/16/2022 8:47 AM [facility] ([facility]) Creatinine 0.69(L) 0.70 - 1.30 mg/dL 07/16/2022 8:47 AM [facility] ([facility]) BUN/Creatinine Ratio 26.09 07/03 8:47 AM [facility] ([facility]) Glucose 72 70 - 100 mg/dL 07/16/2022 8:47 AM [facility] ([facility]) Calcium 8.8 8.6 - 10.3 mg/dL 07/16/2022 8:47 AM [facility] ([facility]) AST 12(L) 13 - 39 U/L 07/16/2022 8:47 AM [facility] ([facility]) ALT (SGPT) 11 7 - 52 U/L 07/16/2022 8:47 AM [facility] ([facility]) Alkaline Phosphatase 104 34 - 104 U/L 07/16/2022 8:47 AM [facility] ([facility]) Total Protein 5.4(L) 6.0 - 8.3 g/dL 07/16/2022 8:47 AM [facility] ([facility]) Albumin 3.5 3.5 - 5.7 g/dL 07/16/2022 8:47 AM [facility] ([facility]) Total Bilirubin 0.3 0.3 - 1.0 mg/dL 07/16/2022 8:[address] [facility] ([place]) eGFR 106.9 >60.0 mL/min/1. 73m*2 07/16/2022 8:[address] [facility] ([place]) Comment:The [facility] s estimated glomerular filtration rate (eGFR) will no longer include consideration of race in its calculation. The [employer] s eGFR Task Force developed new recommendations for the estimation of the glomerular filtration rate in the [place] They recommend immediate implementation of the new equation refit without the race variable in all laboratories because the calculation does not include race. In addition to not including race in the calculation and reporting, it included diversity in its development, and has acceptable performance characteristics and potential consequences that do not disproportionately affect any one group of individuals. Blood Venous blood specimen / Unknown Venipuncture / Unknown 07/16/2022 4:20 AM EST 07/16/2022 7:41 AM EST us Julianne Park MD LAB BLOOD ORDERABLES Final Resu lt [facility] ([place]) [address] [place], [place] [id number] documented in this encounter Visit Diagnoses Not on filedocumented in this encounter Care Teams Meter Installer Relationship Specialty Start Date End Date Cy Hernandez MD [address] [place] [address] PCP - General Internal Medicine 08/21/22 documented as of this encounter
--- OUTSIDE RECORDS SUMMARY | 2025-02-08 12:25 | XMS_ITS | Clinical Summary ---
Author Organization [employer] Address [id number] [address] [place] [address] Care Team Providers Care Tug Hand Name Role Phone Rogers Geller Primary Care Provider [phone] Allergies No known active allergies Medications latanoprost (XALATAN) 0.005 % ophthalmic solutionIndicatio ns:Glaucoma of both eyes, unspecified glaucoma type Administer 1 drop to both eyes nightly. 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 FOR PAIN. 12/02/19 25 Active atorvastatin (LIPITOR) 40 mg tabletIndications :hyperlipidemia Take 1 tablet (40 mg total) by mouth in the morning. Indications: excessive fat in the blood. 90 tablet 1 12/14/19 25 Active pregabalin (LYRICA) 200 mg capsule Take 1 capsule (200 mg total) by mouth. 12/28/19 25 Active meloxicam (MOBIC) 15 mg tabletIndications :Localized osteoarthritis of lumbar spine TAKE 1 TABLET (15 MG TOTAL) BY MOUTH IN THE MORNING 30 tablet 2 01/09/20 25 Active buPROPion XL (WELLBUTRIN XL) 150 mg 24 hr tabletIndications :Tobacco abuse TAKE 1 TABLET BY MOUTH EVERY DAY IN THE MORNING 90 tablet 02/07/20 25 Active topiramate (TOPAMAX) 50 mg tabletIndications :Intractable chronic post-traumatic headache TAKE 1 TABLET (50 MG TOTAL) BY MOUTH IN THE MORNING AND 1 TABLET (50 MG TOTAL) BEFORE BEDTIME 180 tablet 02/07/20 25 Active buPROPion XL (WELLBUTRIN XL) 150 mg 24 hr tabletIndications :Tobacco abuse TAKE 1 TABLET BY MOUTH EVERY DAY IN THE MORNING 30 tablet 2 11/22/19 25 2024 Discontinued Active Problems Problem Noted Date Diagnosed Date Depression 04/29/2024 TBI (traumatic brain injury) 02/15/2024 Oropharyngeal dysphagia 06/29/2022 Acute blood loss anemia 06/29/2022 Multiple fractures of ribs, left side, initial encounter for closed fracture 06/29/2022 Urinary retention 06/29/2022 History of colostomy reversal 10/16/2020 Perforated diverticulum 04/23/2020 Encounters Date Type Department Care Team Description 02/06/2025 Refill [facility] Internal Medicine - Family Medicine [address] [place] [address] Rogers Geller DO Intractable chronic post-traumatic headache (Primary Dx); Tobacco abuse 01/07/2025 Refill [facility] Internal Medicine - Family Medicine [address] [place] [address] Rogers Geller DO Localized osteoarthritis of lumbar spine 01/04/2025 2:30 PM EDT Office Visit [facility] Internal Medicine - Family Medicine [address] [place] [address] Rogers Geller DO Hammer toe of left foot (Primary Dx) 01/04/2025 Travel 12/28/2024 Telephone [facility] Internal Medicine - Family Medicine [address] [place] [address] Ling Main, FRANCES 12/28/2024 Travel 12/14/2024 Telephone [facility] Internal Medicine - Family Medicine [address] [place] [address] Wild Holliday CMA 12/13/2024 1:30 PM EDT Office Visit [facility] Internal Medicine - Family Medicine [address] [place] [address] Rogers Geller, 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 (Primary Dx); B12 deficiency; Ataxia following other nontraumatic intracranial hemorrhage; 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, subsequent encounter; Tobacco abuse; Hyperlipidemia, unspecified hyperlipidemia type 12/13/2024 Orders Only [facility] Internal Medicine - Family Medicine [address] [place] [address] Rogers Geller, 12/13/2024 Travel 12/11/2024 Refill [facility] Internal Medicine - Family Medicine [address] [place] [address] Rogers Geller DO Intractable chronic post-traumatic headache 11/30/2024 Refill [facility] Internal Medicine - Family Medicine [address] [place] [address] Ling Main [facility] B12 deficiency 11/21/2024 Refill [facility] Internal Medicine - Family Medicine [address] [place] [address] Rogers Geller DO Tobacco abuse from Last 3 Months Immunizations No known immunizations Family History Medical History Relation Name Comments Cancer Brother Heart disease Brother Kidney disease Brother Coronary artery disease Father Heart disease Father Heart failure Father Kidney disease Father Diabetes Mother Kidney disease Mother Lung cancer Mother Diabetes Son Relation Name Status Comments Brother Alive Father Alive Mother Son Social History Tobacco Use Types Packs/Day Years Used Date Smoking Tobacco: Every Day Cigarettes 1 45 Smokeless Tobacco: Never Tobacco Cessation:Ready to Q [...] often do you attend chur ch or baptism services? Never 04/23/2020 Do you belong to any clubs o r organizations such as islam groups, unions, fraternal or athletic groups, or [...] 04/23/2020 PHQ-2 Answer Date Recorded Total Score 9 01/04/2025 PRAPARE - Transportation Answer Date Re corded [...] Recorded Do you need help finding a [facility] career center and/or a training program? No 10/16/2020 Hunger Screening Answer Date Recorded Within the past 12 months we worried whether our food would run out before we got money to buy more. Sometimes True 025 Within the past 12 months th e food we bought just didn't last and we didn't have money to get more. Sometimes True 01/04/2025 Purpose - Life Answer Date Recorded I have a purpose and direction in my life. Agree 10/16/2020 Sex and Gender Information Value Date Recorded Sex Assigned at Not on file Legal Sex Male 12:07 PM EDT Gender Identity Not on file Sexual Orientation Not on file Last Filed Vital Signs Vital Sign Reading Time Taken Comments Blood Pressure 136/70 01/04/2025 1:33 PM EDT Pulse 68 01/04/2025 1:33 PM EDT Temperature 37.1 C (98.8 F) 01/04/2025 1:33 PM EDT Respiratory Rate 20 01/04/2025 1:33 PM EDT Oxygen Saturation 97% 01/04/2025 1:33 PM EDT Inhaled Oxygen Concentration - - Weight 86.2 kg (190 lb) 01/04/2025 1:33 PM EDT Height 180.3 cm (5' 10.98 ) 01/04/2025 1:33 PM E DT Body Mass Index 26.51 01/04/2025 1:33 PM EDT Plan of Treatment Upcoming Encounters Date Type Department Care Team (Late st Contact Info) Description 02/22/2025 2:45 PM EDT Office Visit [facility] Internal Medicine - Family Medicine [address] [place] [address] Rogers Geller [address] [place] [address] Health Maintenance Due Date Last Done Comments Tobacco Counseling 1966 Adult BMI Follow Up Plan 1984 DTaP,Tdap and Td Vaccines (1 - Tdap) 1985 Zoster (Shingles) Vaccine (1 of 2) 2016 COVID-19 Vaccine (3 - season) 04/03/202404/2021, 06/19/2021 Influenza Vaccine 04/03/2025 Adult BMI Screening 01/04/2026 01/04/2025 Depression Screening 01/04/2026 01/04/2025 Tobacco Screening 01/04/2026 01/04/2025 Goals Goal Patient Goal Type Associated Problems Recent Progress Patient-Stated? Author home General Yes Jenny Corona, RN Note: Evaluation of progress towards goal: patient anticipates discharge home with home care at this time Patient is planning to transition to inpatient rehab General Yes Rae Burton LSW Note: Evaluation of progress towards goal: Patient is planning to transition to inpatient rehab. Medical Devices Not on file Procedures Procedure Name Priority Date/Time Associated Diagnosis Comments VITAMIN B12 Routine 12/13/2024 2:24 PM EDT B12 deficiency COMPREHENSIVE METABOLIC PANEL Routine 12/13/2024 2:24 PM EDT Hyperlipidemia, unspecified hyperlipidemia type LIPID PROFILE Routine 12/13/2024 2:24 PM EDT Hyperlipidemia, unspecified hyperlipidemia type from Last 3 Months Results * (ABNORMAL) Vitamin B12 (12/13/2024 2:24 PM EDT) VITAMIN B12 1,213(H) 180 - 914 pg/mL 12/13/2024 6:56 PM EDT [facility] Blood Venous blood / Unknown 12/13/2024 2:24 PM EDT 12/13/2024 2:24 PM EDT Rogers Geller DO LAB BLOOD ORDERABLES Final Resul t [facility] [address] [place] [address], [place] [phone] * (ABNORMAL) Lipid profile (12/13/2024 2:24 PM EDT) CHOLESTEROL 226(H) 150 - 200 mg/dL 12/13/2024 6:37 PM EDT [facility] TRIGLYCERIDE 165(H) 27 - 150 mg/dL 12/13/2024 6:37 PM EDT [facility] HDL CHOLESTEROL 66 >39 mg/dL 5 6:37 PM EDT [facility] Comment: HDL <40 mg/dL - High Risk HDL > or = 40mg/dL- Desirable HDL >60 mg/dL - Negative Risk LDL (CALC) 127 <130 mg/dL 12/13/2024 6:37 PM EDT [facility] Comment: LDL <100 mg/dL - Desirable LDL >160 mg/dL - High Risk CHOLESTEROL:HDL 3.4 1.0 - 5.0 5 6:37 PM EDT [facility] VERY LOW LIPOPROTEIN 33(H) 0 - 30 mg/dL 12/13/2024 6:37 PM EDT [facility] Blood Venous blood / Unknown 12/13/2024 2:24 PM EDT 12/13/2024 2:24 PM EDT Rogers Geller DO LAB BLOOD ORDERABLES Final Resul t [facility] [address] [place] [address], [place] [phone] * (ABNORMAL) Comprehensive metabolic panel (12/13/2024 2:24 PM EDT) SODIUM 142 134 - 146 mmol/L 12/13/2024 6:37 PM EDT [facility] POTASSIUM 4.2 3.5 - 5.0 mmol/L 12/13/2024 6:37 PM EDT [facility] CHLORIDE 111(H) 98 - 109 mmol/L 12/13/2024 6:37 PM EDT [facility] CARBON DIOXIDE 25 22 - 32 mmol/L 12/13/2024 6:37 PM EDT [facility] ANION GAP 6 5 - 15 mmol/L 12/13/2024 6:37 PM EDT [facility] BLOOD UREA NITROGEN 23 5 - 23 mg/dL 12/13/2024 6:37 PM EDT [facility] CREATININE 0.92 0.60 - 1.30 mg/dL 12/13/2024 6:37 PM EDT [facility] Comment:METHOD TRACEABLE TO IDMS STANDARD GLUCOSE 99 65 - 99 mg/dL 12/13/2024 6:37 PM EDT [facility] CALCIUM 9.6 8.5 - 10.5 mg/dL 12/13/2024 6:37 PM EDT [facility] TOTAL PROTEIN 7.0 6.0 - 8.0 g/dL 12/13/2024 6:37 PM EDT [facility] ALBUMIN 4.6 3.2 - 5.3 g/dL 12/13/2024 6:37 PM EDT [facility] ALKALINE PHOSPHATASE 63 39 - 130 U/L 12/13/2024 6:37 PM EDT [facility] AST 20 <=41 U/L 12/13/2024 6:37 PM EDT [facility] ALT 17 <=40 U/L 12/13/2024 6:37 PM EDT [facility] BILIRUBIN,TOTAL 0.3 0.3 - 1.2 mg/dL 12/13/2024 6:37 PM EDT [facility] EGFR Non-Race Dependent >90 >=60 ml/min/1.7 3sq.m 12/13/2024 6:37 PM EDT [facility] Comment: Reported eGFR is based on the CKD-EPI 2020 equation that does not use a race coefficient. Blood Venous blood / Unknown 12/13/2024 2:24 PM EDT 12/13/2024 2:24 PM EDT Rogers Geller DO LAB BLOOD ORDERABLES Final Resul t [facility] [address] [place] [address], from Last 3 Months Insurance [facility] MEDICAID Advance Directives * Full Code (Latest Code Status on File) Date Activated Date Inactivated Comments 06/19/2022 6:51 PM 07/12/2022 12:51 PM * Full Code Date Activated Date Inactivated Comments 10/16/2020 11:21 AM 2020 3:58 PM * Full Code Date Activated Date Inactivated Comments 04/23/2020 2:03 AM 04/27/2020 9:19 PM Care Teams Tug Hand Relationship Specialty Start Date End Date Rogers Geller DO [address] [id number] PCP - General Internal Medicine 12/07/23
--- OUTSIDE RECORDS SUMMARY | 2025-02-08 12:25 | XMS_ITS | Encounter Summary ---
Author Organization [facility] Sys tem Address [id number] [address] [place] [address] Care Team Providers Care Workers' Compensation Claims Examiner Name Role Phone Rogers Geller Primary Care Provider [phone] Encounter Details Date Type Department Care Team (Late st Contact Info) Description 10/29/2020 Orders Only [facility] General Surgery-Trauma [address] [place] [address] Catrachita Steele, FRANCES Social History Tobacco Use Types Packs/Day Years [...] often do you attend chur ch or temple services? Never 04/23/2020 Do you belong to any clubs o r organizations such as protestant groups, unions, fraternal or athletic groups, or [...] Recorded Do you need help finding a [employer] career center and/or a training program? No [...] have Coronavirus / COVID-19? No / Unsure 10/16/2020 6:01 AM EDT documented as of this encounter Plan of Treatment Upcoming Encounters Date Type Department Care Team (Late st Contact Info) Description 02/22/2025 2:45 PM EDT Office Visit [facility] Internal Medicine - Family Medicine [address] [place] [address] Rogers Geller, DO [address] [place] [address] documented as of this encounter Goals Goal [...] documented as of this encounter Care Teams Workers' Compensation Claims Examiner Relationship Specialty Start Date End Date Rogers Geller DO [address] [place] [address] PCP - General Internal Medicine 12/07/23 documented as of this encounter
--- OUTSIDE RECORDS SUMMARY | 2025-02-08 12:25 | XMS_ITS | Encounter Summary ---
Author Organization [facility] Address [id number] [address] [place] [address] Care Team Providers Care Acoustical Engineer Name Role Phone Rogers Geller Primary Care Provider [phone] Reason for Visit * Reason Onset Date Comments Appointment 07/10/2023 Encounter Details Date Type Department Care Team (Late st Contact Info) Description 07/10/2023 [facility]phone [facility]-Tra[facility] [address] [place] [address] Rosemary Najera MA Appointment Social History Tobacco Use Types Packs/Day Years [...] often do you attend chur ch or mandaeism services? Never 04/23/2020 Do you belong to any clubs o r organizations such as yarsanism groups, unions, fraternal or athletic groups, or [...] got money to buy more. Never True 12/24/2022 Within the past 12 months th e food we bought just didn't last and we didn't have money to get more. Never True 12/24/2022 Purpose - Life Answer Date Recorded I have a purpose and direction in my life. Agree 10/16/2020 Sex and Gender Information Value Date Recorded Sex Assigned at Not on file Legal Sex Male 12:07 PM EDT Gender Identity Not on file Sexual Orientation Not on file documented as of this encounter Miscellaneous Notes * Telephone Encounter - Rosemary Najera MA - 07/10/2023 9:48 AM EST Patient called wanting an appointment to see you due to dry heaving. I tried to explain to him thathe needs to start with his PCP that this would not have anything to do with his surgery from 2 years ago. He is insisting on seeing Kid[facility]. Please advise. EXPLORATORY LAPAROTOMY, LYSIS OF ADHESIONS AND TAKE DOWN OF COLOSTOMY WITH 25 MM COLORECTAL ANASTOMOSIS, RIGID PROCTOSCOPY 10/16/20 * Telephone Encounter - Rosemary Najera MA - 07/10/2023 9:48 AM EST Per Kurt Hastings Doug needs to follow up with Milagros Flynn. Patient was called. documented in this encounter Plan of Treatment Upcoming Encounters Date Type Department Care Team (Late st Contact Info) Description 02/22/2025 2:45 PM EDT Office Visit [facility] Internal Medicine - Family Medicine [address] [place] [address] Rogers Geller DO [address] [place] [address] documented as of this encounter Goals Goal [...] Time PHQ-9 Depression Total Score: 0 12/25/19 11:31 AM EDT documented as of this encounter Care Teams Acoustical Engineer Relationship Specialty Start Date End Date Rogers Geller DO [address] [place] [address] PCP - General Internal Medicine 12/07/23 documented as of this encounter
--- OUTSIDE RECORDS SUMMARY | 2025-02-08 12:25 | XMS_ITS | Encounter Summary ---
[facility] [place] [id number] [address] [place] [address] Care Team Providers Care Automobile Body Repair Supervisor Name Role Phone Rogers Geller Primary Care Provider [phone] Encounter Details Date Type Department Care Team (Late st Contact Info) Description 04/30/2020 Telephone [facility] General Surgery-Trauma [address] [place] [phone] Rosemary Najera MA Social History Tobacco Use [...] often do you attend chur ch or anabaptist services? Never 04/23/2020 Do you belong to any clubs o r organizations such as mandaen groups, unions, fraternal or athletic groups, or [...] Employment Answer Date Recorded Employment No 04/23/2020 Sex and Gender Information Value Date Recorded Sex Assigned at Not on file Legal Sex Male 12:07 PM EDT Gender Identity Not on file Sexual Orientation Not on file COVID-19 Exposure Response Date Recorded In the last month, have you been in contact with someone who was confirmed or suspected to have Coronavirus / COVID-19? Unable to assess 04/30/2020 9:42 AM EDT documented as of this encounter Miscellaneous Notes * Telephone Encounter - Rosemary Najera MA - 04/30/2020 9:44 AM EDT CALLED PATIENT TO SCHEDULE HIS POST OP APPOINTMENT. HE SAID THAT HE LIVES FAR AWAY AND DOESN'T HAVE A CAR. HE WILL TRY TO GET A RIDE BUT HE DOUBTS IT? Rosemary Najera MA 04/30/20 0949 documented in this encounter Plan of Treatment Upcoming Encounters Date Type Department Care Team (Late st Contact Info) Description 02/22/2025 2:45 PM EDT Office Visit [facility] Internal Medicine - Family Medicine [address] [place] [address] Rogers Geller, [address] [place] [address] documented as of this encounter Goals Goal [...] documented as of this encounter Care Teams Automobile Body Repair Supervisor Relationship Specialty Start Date End Date Rogers Geller DO [address] [id number] PCP - General Internal Medicine 12/07/23 documented as of this encounter
--- OUTSIDE RECORDS SUMMARY | 2025-02-08 12:25 | XMS_ITS | Encounter Summary ---
Author Organization [employer] Address [facility] [id number] [address] [place] [address] Care Team Providers Care Electric Organ Assembler And Checker Name Role Phone Rogers Geller DO Primary Care Provider [phone] Reason for Visit * Reason Comments Med Refill Encounter Details Date Type Department Care Team (Late st Contact Info) Description 02/06/2025 Refill [facility] Internal Medicine - Family Medicine [address] [place] [address] Rogers Geller DO [address] [place] [address] Intractable chronic post-traumatic headache (Primary Dx); Tobacco abuse Social History Tobacco Use Types Packs/Day Years [...] often do you attend chur ch or sabianist services? Never 04/23/2020 Do you belong to any clubs o r organizations such as anabaptist groups, unions, fraternal or athletic groups, or [...] Recorded Do you need help finding a [facility] and/or a training program? [...] Internal Medicine - Family Medicine [address] [place] [phone] Rogers Geller DO [address] [place] [address] documented as of this encounter Goals Goal Patient Goal Type Associated Problems Recent Progress Patient-Stated? Author home General Yes Jenny Corona, RN Note: Evaluation of progress towards goal: patient anticipates discharge home with home care at this time Patient is planning to transition to inpatient rehab General Yes Rae Burton, PHARMACY INTAKE COORDINATOR Note: Evaluation of progress towards goal: Patient is planning to transition to inpatient rehab. documented as of this encounter Visit Diagnoses Diagnosis Intractable chronic post-traumatic headache- Primary Tobacco abuse Tobacco use disorder documented in this encounter Additional Health Concerns Assessment Noted Time PHQ-9 Depression Total Score: 9 01/05/20 25 1:31 PM EDT documented as of this encounter Care Teams Electric Organ Assembler And Checker Relationship Specialty Start Date End Date Rogers Geller DO [address] [place] [address] PCP - General Internal Medicine 12/07/23 documented as of this encounter
--- OUTSIDE RECORDS SUMMARY | 2025-02-08 12:25 | XMS_ITS | Encounter Summary ---
Author Organization [facility] Address [address] [place] [address] Care Team Providers Care Stoker Mechanic Name Role Phone Cy Hernandez MD Primary Care Provider + Encounter Details Date Type Department Care Team (Late st Contact Info) Description 07/13/2022 Lab Requisition [facility] [address] [place] [phone] October, MD Julianne [address], [facility] [address] [place] [address] Social History Tobacco Use Types Packs/Day Years [...] Procedure Name Priority Date/Time Associated Diagnosis Comments CBC WITH AUTO DIFFERENTIAL Routine 07/13/2022 5:21 AM EST CBC AND DIFFERENTIAL Routine 07/13/2022 5:21 AM EST COMPREHENSIVE METABOLIC PANEL Routine 07/13/2022 5:21 AM EST documented in this encounter Results * (ABNORMAL) CBC auto differential (07/13/2022 5:21 AM EST) Auto WBC 6.04 4.00 - 10.60 10*3/uL 07/13/2022 8:17 AM [facility] ([facility]) RBC 3.24(L) 4.20 - 5.70 10*6/uL 07/13/2022 8:17 AM [facility]) Hemoglobin 10.5(L) 13.0 - 17.0 g/dL 07/13/2022 8:17 AM [facility] ([facility]) Hematocrit 33.2(L) 39.0 - 55.0 % 07/13/2022 8:17 AM [facility] ([facility]) MCV 102.5(H) 82.0 - 98.0 fL 07/13/2022 8:17 AM [facility]) MCH 32.4 27.0 - 33.0 pg 07/13/2022 8:17 AM [facility] ([facility]) MCHC 31.6(L) 32.0 - 35.0 g/dL 07/13/2022 8:17 AM [facility] ([facility]) RDW 15.9(H) 11.5 - 15.0 % 07/13/2022 8:17 AM [facility] ([facility]) Neutrophils % 49.9 40.0 - 72.0 % 07/13/2022 8:17 AM [facility] ([facility]) Lymphocytes % 28.8 20.0 - 45.0 % 07/13/2022 8:17 AM [facility] ([facility]) Monocytes % 13.9(H) 5.0 - 12.0 % 07/13/2022 8:17 AM [facility]) Eosinophils % 5.8 0.0 - 6.0 % 07/13/2022 8:17 AM [facility] ([facility]) Basophils % 1.3(H) 0.0 - 1.0 % 07/13/2022 8:17 AM [facility]) Neutrophils Absolute 3.01 1.60 - 7.60 10*3/uL 07/13/2022 8:17 AM [facility] ([facility]) Lymphocytes Absolute 1.74 1.20 - 4.00 10*3/uL 07/13/2022 8:17 AM [facility] ([facility]) Monocytes Absolute 0.84 0.10 - 1.00 10*3/uL 07/13/2022 8:17 AM EST [facility] ([facility]) Eosinophils Absolute 0.35 0.00 - 0.50 10*3/uL 07/13/2022 8:17 AM EST [facility] ([facility]) Basophils Absolute 0.08 0.00 - 0.20 10*3/uL 07/13/2022 8:17 AM EST [facility] ([facility]) Platelets 267 150 - 400 10*3/uL 07/13/2022 8:17 AM EST [facility] ([facility]) nRBC % 0.0 0.0 - 0.0 % 07/13/2022 8:17 AM [facility] ([facility]) RDWSD 60.0 07/13/2022 8:17 AM [facility] ([facility]) Immature Granulocytes % 0.3 0.0 - 1.0 % 07/13/2022 8:17 AM [facility] ([facility]) Immature Granulocytes Absolute 0.02 0.00 - 0.20 10*3/uL 07/13/2022 8:17 AM [facility] ([facility]) Blood Venous blood specimen / Unknown Venipuncture / Unknown 07/13/2022 5:21 AM EST 07/13/2022 8:02 AM EST us Julianne Park MD LAB BLOOD ORDERABLES Final Resu lt [facility] ([facility]) [address] [place] [address] * (ABNORMAL) Comprehensive metabolic panel (07/13/2022 5:21 AM EST) Sodium 141 136 - 145 mmol/L 07/13/2022 9:01 AM [facility] ([facility]) Potassium 4.5 3.5 - 5.1 mmol/L 07/13/2022 9:01 AM [facility] ([facility]) Chloride 110(H) 98 - 107 mmol/L 07/13/2022 9:01 AM [facility] ([facility]) CO2 23 21 - 31 mmol/L 07/13/2022 9:01 AM [facility] ([facility]) Anion Gap 8 7 - 20 mmol/L 07/13/2022 9:01 AM [facility] ([facility]) BUN 18 7 - 25 mg/dL 07/13/2022 9:01 AM [facility] ([facility]) Creatinine 0.59(L) 0.70 - 1.30 mg/dL 07/13/2022 9:01 AM [facility] ([facility]) BUN/Creatinine Ratio 30.51 07/03 9:01 AM [facility] ([facility]) Glucose 74 70 - 100 mg/dL 07/13/2022 9:01 AM [facility] ([facility]) Calcium 9.1 8.6 - 10.3 mg/dL 07/13/2022 9:01 AM [facility] ([facility]) AST 14 13 - 39 U/L 07/13/2022 9:01 AM [facility] ([facility]) ALT (SGPT) 14 7 - 52 U/L 07/13/2022 9:01 AM [facility] ([facility]) Alkaline Phosphatase 111(H) 34 - 104 U/L 07/13/2022 9:01 AM [facility] ([facility]) Total Protein 5.5(L) 6.0 - 8.3 g/dL 07/13/2022 9:01 AM [facility] ([facility]) Albumin 3.5 3.5 - 5.7 g/dL 07/13/2022 9:01 AM [facility] ([facility]) Total Bilirubin 0.4 0.3 - 1.0 mg/dL 07/13/2022 9:01 AM [facility] ([facility]) eGFR 114.0 >60.0 mL/min/1. 73m*2 07/13/2022 9:01 AM [facility] ([facility]) Comment:[facility] [place] s estimated glomerular filtration rate (eGFR) will [...] blood specimen / Unknown Venipuncture / Unknown 07/13/2022 5:21 AM EST 07/13/2022 8:02 AM EST us Julianne Park MD LAB BLOOD ORDERABLES Final Resu lt [facility] ([facility]) [address] [place] [address] documented in this encounter Visit Diagnoses Not on filedocumented in this encounter Care Teams Stoker Mechanic Relationship Specialty Start Date End Date Cy Hernandez MD [address] [facility] [place] [address] PCP - General Internal Medicine 08/21/22 documented as of this encounter
--- OUTSIDE RECORDS SUMMARY | 2025-02-08 12:25 | XMS_ITS | Encounter Summary ---
Author Organization [facility] Address [facility] [id number] [address] [place] [address] Care Team Providers Care Recreation Therapist Name Role Phone Rogers Geller Primary Care Provider [phone] Encounter Details Date Type Department Care Team (Late st Contact Info) Description 05/18/2020 Telephone [facility] General Surgery-Trauma [address] [place] [phone] Rosemary Najera MA Social History Tobacco Use [...] often do you attend chur ch or scientology services? Never 04/23/2020 Do you belong to any clubs o r organizations such as judaism groups, unions, fraternal or athletic groups, or [...] have Coronavirus / COVID-19? No / Unsure 05/07/2020 3:45 PM EDT documented as of this encounter Miscellaneous Notes * Telephone Encounter - Rosemary Najera MA - 05/18/2020 9:58 AM EDT PATIENT CALLED ASKING FOR A REFILL ON HIS LIQUID IBF. POST OP PATIENT 04/23/20 SIGMOID COLECTOMY/COLOSTOMY/ APPENDECTOMY. PATIENT STATED HE IS STILL HAVING A LOT OF PAIN. HE IS NOT HAVING FEVERS OR CHILLS. EATING SMALL AMOUNT STOMA WORKING. HE STATED THAT HIS WOUND VAC SHOULD BE ARRIVING TODAY. Rosemary Najera MA 05/18/20 1002 * Telephone Encounter - Rosemary Najera MA - 05/18/2020 9:58 AM EDT [facility] PER DR. KING. I CALLED PATIENT AND HE VOICED UNDERSTANDING. documented in this encounter Plan of Treatment Upcoming Encounters Date Type Department Care Team (Late st Contact Info) Description 02/22/2025 2:45 PM EDT Office Visit [facility] Internal Medicine - Family Medicine [address] [place] [address] Rogers Geller DO [address] [place] [address] documented as of this encounter Goals Goal [...] documented as of this encounter Care Teams Recreation Therapist Relationship Specialty Start Date End Date Rogers Geller DO [address] [place] [address] PCP - General Internal Medicine 12/07/23 documented as of this encounter
--- NOTE | 2025-02-08 12:54 | PM.CN ---
Consult Note: HPI Data of Consult Patient: known to practice within the last 3 years Requesting Physician: Tonia Rosado NP Primary Care Provider: CRIS SINGH Consult Narrative Reason for consult: low back pain Narrative: Maxwell Jean a pleasant 59 year old male presents for evaluation and management of chronic severe neck and low back pain. at this time pt recovering from neck surgery at unknown levels with Dr Wisdom, next f/u 02/21/25. Pain today 6-7/10 in neck and low back, reports no improvement in his pain since last visit. Has been out of his norco as he was on post-op opioids from [facility]. Has been utilizing meloxicam, tylenol, robaxin, pregabalin, topomax, lyrica with mild relief. Pt reports increased pain with lifting, standing, walking, sleeping. cc:: CC: Tonia Rosado NP Review of Systems ROS Musculoskeletal Reports: back pain, neck pain and joint pain PFSH PFSH Medical History Enlarged prostate �N40.0 - Benign prostatic hyperplasia without lower urinary tract symptoms (ICD-10) Hearing deficit �H91.90 - Unspecified hearing loss, unspecified ear (ICD-10) Glaucoma �H40.9 - Unspecified glaucoma (ICD-10) Low back pain �M54.50 - Low back pain, unspecified (ICD-10) High cholesterol �E78.00 - Pure hypercholesterolemia, unspecified (ICD-10) Hypertension �I10 - Essential (primary) hypertension (ICD-10) Social History Little interest or pleasure in doing things: not at all Feeling down, depressed, or hopeless: not at all Meds Home Medications and Allergies Home Medications �Medication �Instructions �Recorded �Confirmed �Type atorvastatin 40 mg tablet 40 mg PO DAILY 05/16/24 10/24/24 History cyanocobalamin (vitamin B-12) 2,000 mcg PO DAILY 05/16/24 10/24/24 History 1,000 mcg tablet (Vitamin B-12) meloxicam 15 mg tablet 15 mg PO DAILY 05/16/24 10/24/24 History topiramate 50 mg tablet 50 mg PO BID 05/16/24 10/24/24 History naloxone 4 mg/actuation nasal 4 mg intranasal Q2M PRN opioid 07/14/24 10/24/24 Rx spray (Narcan) overdose #2 ea pregabalin 100 mg capsule (Lyrica) 100 mg PO TID #90 caps 08/15/24 10/24/24 Rx hydrocodone 7.5 mg-acetaminophen 1 tab PO BID PRN pain #60 tabs 08/22/24 10/24/24 Rx 325 mg tablet bupropion HCl 150 mg 24 hr tablet, 150 mg PO 10/03/24 History extended release latanoprost 0.005 % eye drops drp ophthalmic (eye) 10/03/24 History venlafaxine 37.5 mg 37.5 mg PO 10/03/24 History capsule,extended release 24 hr hydrocodone 7.5 mg-acetaminophen 1 tab PO BID PRN pain #60 tabs 10/04/24 10/24/24 Rx 325 mg tablet pregabalin 100 mg capsule (Lyrica) 200 mg (2 x 100 mg) PO TID #180 10/12/24 10/24/24 Rx caps hydrocodone 7.5 mg-acetaminophen 1 tab PO BID PRN pain #60 tabs 11/03/24 Rx 325 mg tablet pregabalin 200 mg capsule (Lyrica) 200 mg PO TID #90 caps 11/21/24 Rx Allergies Allergy/AdvReac Type Severity Reaction Status Date / Time No Known Drug Allergies Allergy Verified 10/24/24 12:45 Exam Constitutional Documenting provider has reviewed patient's vital signs: yes Common normals: no apparent distress, oriented x3, healthy appearing, alert and well nourished General appearance: cooperative [facility] Common normals: normocephalic, hearing grossly normal bilaterally and moist oral mucous membranes Head and scalp: normocephalic Eye Common normals: PERRL Pupil: PERRL Neck & C-Spine Common normals: full ROM General: normal visual inspection Cervical spine: cervical ROM abnormal and pain with cervical ROM Chest Common normals: inspection of chest normal Respiratory Common normals: normal respiratory effort, no retractions and no use of accessory muscles Back & Pelvis Lumbar spine/lower back: ROM limited, pain with ROM and lumbar spinal tenderness Lumbar spinal tenderness location: L3, L4 and L5 Other: positive facet loading strength 5/5 in BLE Neuro Common normals: oriented x3 Sensorium/orientation: alert Psych Common normals: mental status grossly normal, thought process normal, cooperative, affect normal, speech normal and activity/motor behavior normal Speech: normal speech Thought process: normal thought process Results Additional Findings Additional findings: If on a controlled substance or opioids, I have checked an OARRS report on this patient and there are no aberrancies noted in the prescribing history.��If on a controlled substance or opioid a drug screen was completed and reviewed within the last year, and if there has not been a drug screen completed we ordered one today to monitor higher risk, state monitored pain medication use. As part of providing excellent, safe, comprehensive care, the following was completed at our patient's visit: 1. A medication reconciliation and review to ensure accurate knowledge of current/active medications, including asking our patients to inform us about any [id number] medications or herbal remedies/nutritional supplements/alternative remedies. 2. A review to specifically ensure our patients have had annual screening for screening for depression, screening for tobacco use, and screening for unhealthy alcohol use. For concerning screenings had a discussion with the patient, provided patient education, and recommended follow-up with primary care provider when appropriate. If patient noted with a risk of falling, they received education on strength, gait, and balance training to prevent future risk of falling. Portions of this note may have been carried over from the previous visit and updated as appropriate. Please note this office utilizes paper charting in addition to the electronic medical record. A list of current medications, vitals, and PMH is available there as the clinical staff outside of myself do not have access to [employer] charting during the clinic day operations. As part of providing quality comprehensive care the current medications, vitals, and PMH were reviewed in the paper chart. Assessment and Plan Assessment and Plan (1) Lumbar spondylosis: Assessment and Plan: The patient has had over 3 months of moderate to severe low back pain with functional impairment and inadequate response to conservative care including NSAIDS (unless there are contraindication such as concurrent blood thinners), multiple oral or topical pain medications, and home exercise program/physical therapy.� Patient has completed >6 weeks of guided home exercise program and/or formal physical therapy program without relief of their symptoms.� I have reviewed the imaging of the lumbar spine and no red flags were identified.� The imaging reveals radiographic findings consistent with lumbar ddd, lumbar spondylosis, lumbar stenosis The Oswestry Disability Index was completed, and the patient scored a 36%.� The patient noted the following:�� moderate to severe pain impacting ADLs, sitting, standing, walking, sleeping, social life, travel We discussed the risks and benefits of the procedure with the patient, and we are NOT planning on using sedation as outlined in the guidelines from Medicare unless there is a documented reason that sedation would be strongly recommended.�� �The procedure will be completed with fluoroscopic guidance.� (2) Sacroiliitis: (3) Lumbar stenosis with neurogenic claudication: (4) Chronic use of opiate drug for therapeutic purpose: Assessment and Plan: I feel these medications are improving the patient's quality of life and allow them to tolerate activities of daily living as well as participate in recreational activity.� The patient does not report intolerable side effects. The patient is NOT opioid naive and non-pharmacologic and non-opioid treatment has failed to significantly relieve the patient's pain and improve functionality. The patient has a diagnosis that is related to a somatic or visceral pain etiology. � �� I reviewed with the patient the potential risks and side effects with the use of� opioid medications including but not limited to respiratory depression,� sedation, and even . Within the last 12 months I have verified the patient has access to naloxone should� these effects occur. The patient was advised to let� their family know they had Naloxone in case they would need to administer� the medication. I advised the patient to avoid the use of any other� sedation substances including alcohol, THC, and benzodiazepines while� taking opioid medications due to the risk of compounding side effects and� detrimental outcomes. within the last 12 months I have reviewed the TRADE CLERK, pain treatment agreement and urine drug screen.� �� A drug screen was completed within the last year, and no aberrancies were noted regarding their use of controlled substances. The patient understands they are subject to the terms and conditions of the pain contract that they have signed. � �� I have checked an OARRS report on this patient today and there are no aberrancies noted in the prescribing history.� Plan request NS notes from Dr Wisdom proceed with bilateral L4-5 L5-S1 MBB x2 in consideration of RFA for facet mediated low back pain restart norco 7.5mg BID PRN moderate to severe pain, pt has noticed significantly increased pain and decline in function and quality of life without his pain medication. continue HEP as tolerated update narcan continue pregabalin 200mg TID f/u after each MBB
== END 2025-02-08 12:22 | disposition home or self-care (01) ==
PROVIDERS: PCP Internal Medicine; Visit Provider Nurse Practitioner
DX: Z01.812 Encounter for preprocedural laboratory examination (principal); Z01.818 Encounter for other preprocedural examination; M47.816 Spondylosis without myelopathy or radiculopathy, lumbar region; M46.1 Sacroiliitis, not elsewhere classified; M48.062 Spinal stenosis, lumbar region with neurogenic claudication; Z79.891 Long term (current) use of opiate analgesic
CPT/HCPCS: 36415; 80048; 85025; 93005; G0463

== ENCOUNTER 2025-02-08 13:16 | Outpatient (OUT) | payer OTHER, SELFPAY ==
--- OUTSIDE RECORDS SUMMARY | 2025-01-26 15:30 | XMS_ITS | Encounter Summary ---
Author Organization [facility] Address [address] [place] [address] [place] [address] Care Team Providers Care Care Professionals Name Role Phone Rogers Geller MD Primary Care Provider [phone] Encounter Details Date Type Department Care Team (Late st Contact Info) Description 01/26/2025 3:30 PM EDT Ancillary Procedure [facility] [address] [place] [address] Social History Tobacco Use Types Packs/Day Years Used Date Smoking Tobacco: Every Day Cigarettes Smokeless Tobacco: Never Alcohol Use Standard Drinks/Week Comments Not Currently 0 (1 standard drink = 0.6 oz pur e alcohol) Sex and Gender Information Value Date Recorded Sex Assigned at Not on file Legal Sex Male 10:13 PM EDT Gender Identity Not on file Sexual Orientation Not on file documented as of this encounter Plan of Treatment Upcoming Encounters Date Type Department Care Team (Late st Contact Info) Description 03/02/2025 4:40 PM EDT Office Visit [facility] [address] [place] [address] Rogelio Kirk DPM [address] [address] 03/16/2025 4:20 PM EDT Office Visit [facility] [address] [place] [address] [place] [address] Rogelio Kirk DPM [address] [address] 04/06/2025 3:40 PM EDT Procedure Visit [facility] 112 [facility] 120 [place] [address] Rogelio Kirk DPM 3006 [facility] 5 [place] [address] documented as of this encounter Procedures Procedure Name Priority Date/Time Associated Diagnosis Comments XR FOOT 3+ VIEWS LEFT Routine 01/26/2025 3:26 PM EDT Hav (hallux abducto valgus), left documented in this encounter Results * XR foot 3+ views left (01/26/2025 3:26 PM EDT) Anatomical Region Laterality Modality Lower Extremities, Foot Left Radiogra phic Imaging Narrative 01/26/2025 3:26 PM EDT Imaging Result: HAV deformity left with intermetatarsal angle of 15 degrees with notable digital deformities 2 through 5 digits left foot and degenerative changes of the midfoot us Rogelio Kirk DPM IMG XR PROCEDURES Final Res ult documented in this encounter Visit Diagnoses Not on filedocumented in this encounter Care Teams Care Professionals Relationship Specialty Start Date End Date Rogers Geller MD [address] [place] [address] PCP - General Internal Medicine 01/04/24 documented as of this encounter
--- OUTSIDE RECORDS SUMMARY | 2025-01-26 15:40 | XMS_ITS | Encounter Summary ---
Author Organization [facility] Address [address] [place] [address] Care Team Providers Care Location Director Name Role Phone Rogers Geller MD Primary Care Provider [phone] Reason for Visit * Reason Comments Hammer Toe Foot Callouses Encounter Details Date Type Department Care Team ([facility] st Contact Info) Description 01/26/2025 3:40 PM EDT Office Visit [facility] 112 [facility] 120 [place] [address] Rogelio Kirk DPM 3006 [facility] 5 [place] [address] Hav (hallux abducto valgus), left [...] Meniere's disease Polyneuropathy Smoker Traumatic brain injury ([facility]) Medications: Current Outpatient Medications: naloxone (Narcan) 4 [...] in the morning., Disp: , Rfl: HYDROcodone-acetaminophen ([place]) 7.5-325 MG tablet, Take 1 tablet by [...] Strain: Low Risk (08/21/2022) Received from [facility] Overall Financial Resource Strain (CARDIA) Difficulty of Paying Living Expenses: Not hard at all Food Insecurity: Food Insecurity Present (01/04/2025) Received from [facility] Hunger Screening Within the past 12 months we worried whether our food would run out before we got money to buy more.: Sometimes True Within the past 12 months the food we bought just didn't last and we didn't have money to get more.: Sometimes True Transportation Needs: No Transportation Needs (11/17/2024) Received from [facility] PRAPARE - Transportation Lack of Transportation (Medical): No Lack of Transportation (Non-Medical): No Physical Activity: Sufficiently Active (08/21/2022) Received from [facility] Exercise Vital Sign Days of Exercise per Week: 5 days Minutes of Exercise per Session: 30 min Stress: No Stress Concern Present (08/21/2022) Received from [facility] [employer] [employer] of Occupational Health - Occupational Stress Questionnaire Feeling of Stress : Not at all Social Connections: Socially Isolated (08/21/2022) Received from [facility] Social Connection and Isolation Panel [NHANES] Frequency of Communication with Friends and Family: More than three times a week Frequency of Social Gatherings with Friends and Family: More than three times a week Attends Scientologist Services: Never Active Member of Clubs or Organizations: No Attends Club or Organization Meetings: Never Marital Status: Intimate Partner Violence: Unknown (09/24/2023) Received from [facility] Safety & Environment Fear of Current or Ex-Partner: Not on file Emotionally Abused: Not on file Physically Abused: Not on file Sexually Abused: Not on file Physically or Sexually Abused: Not on file Housing Stability: High Risk (11/17/2024) Received from [facility] Housing Stability Vital Sign Unable to Pay [...] Patient may continue with conservative treatments including [id number] anti- inflammatories and other treatments suggested today. Patient may want to be s cheduled for surgical intervention in the near future. Patient have left 2nd toe amputation in nearfuture Rogelio Kirk DPM documented in this encounter Plan of Treatment Upcoming Encounters Date Type Department Care Team (Late st Contact Info) Description 03/02/2025 4:40 PM EDT Office Visit [facility] [address] [address] Rogelio Kirk DPM [address] [address] 03/16/2025 4:20 PM EDT Office Visit [facility] [address] [facility] [address] [place] [address] Rogelio Kirk DPM [address] [address] 04/06/2025 3:40 PM EDT Procedure Visit [facility] [address] [facility] [address] [place] [address] Rogelio Kirk DPM [address] [address] documented as of this encounter Procedures Procedure [...] feet documented in this encounter Care Teams Location Director Relationship Specialty Start Date End Date Rogers Geller MD [facility] [place] [address] PCP - General Internal Medicine 01/04/24 documented as of this encounter
--- OUTSIDE RECORDS SUMMARY | 2025-02-07 15:15 | XMS_ITS | Encounter Summary ---
Author Organization [facility] Address [facility] [place] [address] Care Team Providers Care Auto Design Detailer Name Role Phone Rogers Geller Primary Care Provider Frandy Caba DO Unavailable [phone] Source Comments In the event this information is protected by the Federal Confidentiality of Alcohol and Drug AbusePatient Records regulations: The Federal rules restrict any use of the information to criminally investigate or prosecute any alcohol or drug abuse patient.[facility] Reason for Visit * Reason Comments Follow Up * Consult, Test, Treat (Routine) - Authorized Specialty Diagnoses / Procedures Referred By Georges t Referred To Contact Diagnoses Cervical spondylosis with myelopathy Acute post-operative pain Procedures PROVIDER ORDERED FOLLOW UP OFFICE/OUTPATIENT [facility] 60 MINUTES Marta Rankin APRN.ATTENDING PSYCHIATRIST [address] Mail [address] [place] [address] Phone: tel: fax: Referral ID Status Reason Start Date Expiration Date Visits Requested Visits Authorized [id number] Authorized PCP Requested Referral 12/01/2024 12/01/2025 1 1 Encounter Details Date Type Department Care Team (Latest Contact Info) Description 02/07/2025 3:15 PM EDT [facility] [address] [phone] Marta Rankin APRN.ATTENDING PSYCHIATRIST [address] [phone] Cervical spondylosis with myelopathy (Primary Dx) Social History Tobacco Use Types Packs/Day Years Used Date Smoking Tobacco: Every Day Cigarettes Smokeless Tobacco: Never Alcohol Use Standard Drinks/Week Comments Not Currently 0 (1 standard drink = 0.6 oz pur e alcohol) [facility] Utilities Answer Date Recorded In the [...] any time in the past 12 m [facility], were you homeless or living in a nursing home (including now)? Yes 11/17/2024 Area Deprivation Index Answer Date Nav rded National Score (1-100), lower number is lower ri sk 94 10/25/2024 State Score (1-10), lower number is lower risk 9 10/25/2024 Data from: https://www.neighborhoodatlas.medicine.[facility].edu/. Last address used for calculation [address] [...] this encounter Progress Notes * Marta Rankin APRN.ATTENDING PSYCHIATRIST - 02/07/2025 3:15 PM EDT SPINE SURGERY FOLLOW UP This is a virtual visit using Audio Only Visit. It required patient-provider interaction for the medical decision making as documented below. I have communicated my name and active licensure. The patient's identity and physical location wereverified at the time of this visit. Either the patient or their legal electroplating sales representative has been informed of the risks [...] scheduled to follow up with his pain web content & social media manager tomorrow for continued narcotic prescriptions, as [...] will need to come from his pain web content & social media manager who prescribed them chronically prior to [...] 3:00 PM EDT Office Visit Spine Surgery [facility] [address] [place] [address] Jus Wisdom MD [address] [place] [address] 6 week post op follow up with pre-visit XR documented as of this encounter Visit Diagnoses Diagnosis Cervical spondylosis with myelopathy- Primary documented in this encounter Care Teams Auto Design Detailer Relationship Specialty Start Date End Date Rogers Geller [address] [place] [address] PCP - General Internal Medicine 07/14/24 Frandy Caba DO [address] [place] [address] Referring Neurology 07/14/24 documented as of this encounter
--- OUTSIDE RECORDS SUMMARY | 2025-02-08 13:18 | XMS_ITS | Encounter Summary ---
Author Organization [employer] tem Address [facility] [place][id number] [address] [place] [address] Care Team Providers Care Ordnance Truck Installation Supervisor Name Role Phone Rogers Geller Primary Care Provider [phone] Encounter Details Date Type Department Care Team (Late st Contact Info) Description 03/28/2024 Telephone [facility] Internal Medicine - Family Medicine [address] [place] [address] StephanieAyana sharif, ASSISTANT SPEECH LANGUAGE PATHOLOGIST Social History Tobacco Use Types Packs/Day Years [...] any clubs o r organizations such as roman catholic groups, unions, fraternal or athletic groups, or [...] you need help finding a [facility] career center and/or a training program? No [...] now ran out and waiting for terminal press operator documented in this encounter Plan of Treatment Upcoming Encounters Date Type Department Care Team (Late st Contact Info) Description 02/22/2025 2:45 PM EDT Office Visit [facility] Internal Medicine - Family Medicine [address] [place] [address] Rogers Geller DO [address] [place] [address] documented as of this encounter Goals Goal [...] documented as of this encounter Care Teams Ordnance Truck Installation Supervisor Relationship Specialty Start Date End Date Rogers Geller DO [address] [place] [id number] PCP - General Internal Medicine 12/07/23 documented as of this encounter
--- OUTSIDE RECORDS SUMMARY | 2025-02-08 13:18 | XMS_ITS | Encounter Summary ---
Author Organization [facility] Address [address] [place] [address] Care Team Providers Care Architectural Associate Name Role Phone Rogers Geller Primary Care Provider [phone] Frandy Caba DO Unavailable [phone] Source Comments In the event this information is protected by the Federal Confidentiality of Alcohol and Drug AbusePatient Records regulations: The Federal rules restrict any use of the information to criminally investigate or prosecute any alcohol or drug abuse patient.[facility] Encounter Details Date Type Department Care Team (Late st Contact Info) Description 10/11/2024 Patient Msg [facility] [address] [place] [address] Provider, [facility] Pre op schedule is ready! Social History Tobacco Use Types Packs/Day Years Used Date Smoking Tobacco: Every Day Cigarettes Area Deprivation Index Answer Date Nav rded National Score (1-100), lower number is lower ri sk 79 10/11/2024 State Score (1-10), lower number is lower risk 7 10/11/2024 Data from: https://www.neigh borhoodatlas.medicine.[facility].edu/. Last address used for calculation [address] [...] 3:00 PM EDT Office Visit Spine [facility] [address] [place] [address] Jus Wisdom MD [address] [place] [address] 6 week post op follow up with pre-visit XR documented as of this encounter Visit Diagnoses Not on filedocumented in this encounter Care Teams Architectural Associate Relationship Specialty Start Date End Date Rogers Geller [address] [place] [address] PCP - General Internal Medicine 07/14/24 Frandy Caba DO [address] [place] [address] Referring Neurology 07/14/24 documented as of this encounter
--- OUTSIDE RECORDS SUMMARY | 2025-02-08 13:19 | XMS_ITS | Encounter Summary ---
Author Organization [facility] tem Address [facility] [id number] [address] [place] [address] Care Team Providers Care Die Keeper Name Role Phone Rogers Geller DO Primary Care Provider [phone] Encounter Details Date Type Department Care Team (Late st Contact Info) Description 12/08/2023 Orders Only [facility] Internal Medicine - Family Medicine [address] [place] [address] Rogers Geller DO [address] [place] [address] B12 deficiency (Primary Dx); VIEIRA (nonalcoholic steatohepatitis) [...] often do you attend chur ch or orthodoxy services? Never 04/23/2020 Do you belong to [...] Recorded Do you need help finding a [employer] center and/or a training program? No 10/16/2020 [...] [facility] Internal Medicine - Family Medicine [address] [place] [phone] Rogers Geller DO [address] [facility] [address] documented as of this encounter Goals Goal [...] documented as of this encounter Care Teams Die Keeper Relationship Specialty Start Date End Date Rogers Geller DO [address] [place] [address] PCP - General Internal Medicine 12/07/23 documented as of this encounter
--- OUTSIDE RECORDS SUMMARY | 2025-02-08 13:19 | XMS_ITS | Encounter Summary ---
Author Organization [employer] s tem Address [facility]-[id number] [address] [place] [address] Care Team Providers Care Home Demonstration Agent Name Role Phone Rogers Geller Primary Care Provider [phone] Encounter Details Date Type Department Care Team (Late st Contact Info) Description 06/23/2024 Telephone [facility] Internal Medicine - Family Medicine [address] [place] [address] Wild Holliday CMA Social History Tobacco Use [...] often do you attend chur ch or baptist services? Never 04/23/2020 Do you belong to [...] Internal Medicine - Family Medicine [address] [place] [address] Rogers Geller DO [address] [facility] [place] [address] documented as of this encounter Goals Goal [...] documented as of this encounter Care Teams Home Demonstration Agent Relationship Specialty Start Date End Date Rogers Geller DO [address] [facility] [place] [address] PCP - General Internal Medicine 12/07/23 documented as of this encounter
--- OUTSIDE RECORDS SUMMARY | 2025-02-08 13:19 | XMS_ITS | Encounter Summary ---
Author Organization [facility] tem Address [facility] [id number] [address] [place] [address] Care Team Providers Care Tab Card Press Operator Name Role Phone Rogers Geller DO Primary Care Provider [phone] Encounter Details Date Type Department Care Team (Late st Contact Info) Description 12/13/2024 Orders Only [facility] Internal Medicine - Family Medicine [address] [place] [address] Rogers Geller DO [address] [place] [address] Social History Tobacco Use Types Packs/Day Years [...] often do you attend chur ch or sabianism services? Never 04/23/2020 Do you belong to [...] Recorded Do you need help finding a [employer] career center and/or a training program? No [...] [facility] - Family Medicine [address] [place] [address] Rogers Geller DO [address] [place] [address] documented as of this encounter Goals Goal [...] documented as of this encounter Care Teams Tab Card Press Operator Relationship Specialty Start Date End Date Rogers Geller DO [address] [place] [address] PCP - General Internal Medicine 12/07/23 documented as of this encounter
--- OUTSIDE RECORDS SUMMARY | 2025-02-08 13:19 | XMS_ITS | Encounter Summary ---
Author Organization [employer] s tem Address [facility] [id number] [address] [place] [address] Care Team Providers Care Pipeline Systems Operator Name Role Phone Rogers Geller Primary Care Provider [phone] Encounter Details Date Type Department Care Team (Late st Contact Info) Description 12/24/2023 Telephone [facility] Internal Medicine - Family Medicine [address] [place] [address] Wild Holliday CMA Social History Tobacco Use [...] often do you attend chur ch or druze services? Never 04/23/2020 Do you belong to any clubs o r organizations such as christian groups, unions, fraternal or athletic groups, or [...] Recorded Do you need help finding a [facility] career center and/or a training program? [...] - Family Medicine [address] [place] [address] Rogers Geller DO [address] [place] [address] documented as of this encounter Goals Goal Patient Goal Type Associated Problems Recent Progress Patient-Stated? Author home General Yes Jenny Croona, RN Note: Evaluation of progress towards goal: [...] documented as of this encounter Care Teams Pipeline Systems Operator Relationship Specialty Start Date End Date Rogers Geller DO [address] [place] [address] PCP - General Internal Medicine 12/07/23 documented as of this encounter
--- OUTSIDE RECORDS SUMMARY | 2025-02-08 13:19 | XMS_ITS | Encounter Summary ---
Author Organization [facility] Address [address] [place] [address] Care Team Providers Care Wood Preparation Supervisor Name Role Phone Rogers Geller MD Primary Care Provider [phone] Encounter Details Date Type Department Care Team (Late Contact Info) Description 02/24/2024 Orders Only [facility] [address] [place] [phone] Matt Mejia, [address] [place] [address] Social History Tobacco Use Types Packs/Day [...] [facility] [address] [place] [phone] Rogelio Kirk DPM [address] [address] 03/16/2025 4:20 PM EDT Office Visit [facility] [address] [place] [address] Rogelio Kirk DPM [address] [address] 04/06/2025 3:40 PM EDT Procedure Visit [facility] [address] [facility] [address] [place] [address] Rogelio Kirk, DPAshley [address] [facility] [address] [place] [address] documented as of this encounter Procedures Procedure [...] on filedocumented in this encounter Care Teams Wood Preparation Supervisor Relationship Specialty Start Date End Date Rogers Geller MD [address] [place] [address] PCP - General Internal Medicine 01/04/24 documented as of this encounter
--- OUTSIDE RECORDS SUMMARY | 2025-02-08 13:19 | XMS_ITS | Encounter Summary ---
Author Organization [employer] tem Address [facility] [id number] [address] [place] [address] Care Team Providers Care Oil And Gas Principal Name Role Phone Rogers Geller DO Primary Care Provider [phone] Reason for Visit * Reason Comments Med Refill Encounter Details Date Type Department Care Team (Late st Contact Info) Description 02/08/2024 Refill [facility] Internal Medicine - Family Medicine [address] [place] [address] Rogers Geller DO [address] [place] [address] Benign prostatic hyperplasia with lower urinary tract [...] often do you attend chur ch or presybeterian services? Never 04/23/2020 Do you belong to any clubs o r organizations such as yazdanism groups, unions, fraternal or athletic groups, or [...] Recorded Do you need help finding a [employer] [facility] career center and/or a training program? [...] Miscellaneous Notes * Telephone Encounter - Rogers Gellre DO - 02/08/2024 12:46 AM EDT No longer taking this medication documented in this encounter Plan of Treatment Upcoming Encounters Date Type Department Care Team (Late st Contact Info) Description 02/22/2025 2:45 PM EDT Office Visit [facility] Internal Medicine - Family Medicine [address] [place] [address] Rogers Geller DO [address] [place] [address] documented as of this encounter Goals Goal [...] documented as of this encounter Care Teams Oil And Gas Principal Relationship Specialty Start Date End Date Rogers Geller DO [address] [place] [address] PCP - General Internal Medicine 12/07/23 documented as of this encounter
--- OUTSIDE RECORDS SUMMARY | 2025-02-08 13:19 | XMS_ITS | Encounter Summary ---
Author Organization [employer] s tem Address [facility] [id number] [address] [place] [address] Care Team Providers Care Compensation Consulting Manager Name Role Phone Rogers Geller Primary Care Provider [phone] Encounter Details Date Type Department Care Team (Late st Contact Info) Description 06/20/2024 Telephone [facility] Internal Medicine - Family Medicine [address] [place] [address] Wild Holliday CMA Social History Tobacco Use [...] often do you attend chur ch or gnosticist services? Never 04/23/2020 Do you belong to [...] Recorded Do you need help finding a [facility] career center and/or a training program? [...] Internal Medicine - Family Medicine [address] [place] [address] Rogers Geller DO [address] [place] [address] documented as of this encounter Goals Goal [...] documented as of this encounter Care Teams Compensation Consulting Manager Relationship Specialty Start Date End Date Rogers Geller DO [address] [place] [address] PCP - General Internal Medicine 12/07/23 documented as of this encounter
--- OUTSIDE RECORDS SUMMARY | 2025-02-08 13:19 | XMS_ITS | Encounter Summary ---
Author Organization [facility] Address [facility] [place]-[id number] [address] [place] [address] Care Team Providers Care Tank Truck Driver Name Role Phone Rogers Geller DO Primary Care Provider [phone] Encounter Details Date Type Department Care Team (Late st Contact Info) Description 01/21/2024 Orders Only [facility] Internal Medicine - Family Medicine [address] [place] [address] Rogers Geller DO [address] [place] [address] Social History Tobacco Use Types Packs/Day Years [...] any clubs o r organizations such as mosque groups, unions, fraternal or athletic groups, or [...] Recorded Do you need help finding a [employer] career center and/or a training program? No [...] Internal Medicine - Family Medicine [address] [place] [address] Rogers Geller DO [address] [place] [address] documented as of this encounter Goals Goal [...] documented as of this encounter Care Teams Tank Truck Driver Relationship Specialty Start Date End Date Rogers Geller DO [address] [place] [address] PCP - General Internal Medicine 12/07/23 documented as of this encounter
--- OUTSIDE RECORDS SUMMARY | 2025-02-08 13:19 | XMS_ITS | Encounter Summary ---
Author Organization [facility] Address [address] [place] [address] Care Team Providers Care Forest Pathology Professor Name Role Phone Cris Singh MD Primary Care Provider [phone] Encounter Details Date Type Department Care Team [...] [facility] [address] [place] [address] Rogelio Kirk DPM [address] [address] 03/16/2025 4:20 PM EDT Office Visit [facility] [address] [place] [address] Rogelio Kirk DPM [address] [address] 04/06/2025 3:40 PM EDT Procedure Visit [facility] [address] [place] [address] Rogelio Kirk, BEN [address] [address] documented as of this encounter Procedures Procedure Name Priority Date/Time Associated Diagnosis Comments MR CERVICAL SPINE WO/W CON 06/24/2024 9:22 AM EST documented in this encounter Results * MR CERVICAL SPINE WO/W CON (06/24/2024 9:22 AM EST) Anatomical Region Laterality Modality Other 06/24/2024 9:22 AM EST Narrative 06/24/2024 9:25 [place] [address] Magnetic Resonance Report Signed Patient: BEE STARR MR#: [id number] : 1965 Acct:[id number] Age/Sex: 58 / M ADM Date: 06/23/24 Loc: MRI Attending Dr: Savita Montes De Oca NP Ordering Physician: Savita Montes De Oca NP Date of Service: 06/23/24 Procedure(s): MR cervical spine wo/w con Accession Number(s): [id number] cc: Savita Montes De Oca NP; CRIS SINGH [address] [address] Patient Name: BEE STARR MRN: [facility]:[id number] date: 1965 Sex: M Assigned Patient Location: MRI Current Patient Location: Accession/Order Number: [id number] Exam Date: 06/23/2024 12:30 Report Date: 06/24/2024 [...] M.D. Signed By: 06/24/24924 DD/ 1 TD/TT: Painter Airbrush: Procedure Note Radiology, Radiologist, MD - 06/24/2024 [place] [address] Magnetic Resonance Report Signed Patient: BEE STARR EMR#: [id number] : 1965Acct:[id number] Age/Sex: 58 / MADM Date: 06/23/24 Loc: MRI Attending Dr: Savita Montes De Oca NP Ordering Physician: Savita Montes De Oca NP Date of Service: 06/23/24 Procedure(s): MR cervical spine wo/w con Accession Number(s): [id number] cc: Savita Montes De Oca NP; [place] [address] Patient Name: BEE STARR MRN: [facility]:[id number] date: 1965 Sex: M Assigned Patient Location: MRI Current Patient Location: Accession/Order Number: [id number] Exam Date: 06/23/2024 12:30 Report Date: 06/24/2024 [...] Parsons M.D. Signed By:06/24/24924 DD/ 1 TD/TT: Painter Airbrush: Savita Montes De Oca NP [facility] Final Result documented in this encounter Visit Diagnoses Not on filedocumented in this encounter Care Teams Forest Pathology Professor Relationship Specialty Start Date End Date Cris Singh MD [address] [id number] PCP - General Internal Medicine 01/04/24 documented as of this encounter
--- OUTSIDE RECORDS SUMMARY | 2025-02-08 13:19 | XMS_ITS | Encounter Summary ---
Author Organization [facility] tem Address [facility] [place] [place]-[id number] [address] [place] [address] Care Team Providers Care Asphalt Heater Tender Name Role Phone Rogers Geller DO Primary Care Provider [phone] Encounter Details Date Type Department Care Team (Late st Contact Info) Description 06/16/2024 Orders Only [facility] Internal Medicine - Family Medicine [address] [place] [address] Rogers Geller DO [address] [place] [address] Social History Tobacco Use Types Packs/Day Years [...] often do you attend chur ch or moravian services? Never 04/23/2020 Do you belong to any clubs o r organizations such as sabianism groups, unions, fraternal or athletic groups, or [...] Recorded Do you need help finding a [employer] career center and/or a training program? No [...] [facility] Internal Medicine - Family Medicine [address] [place] [phone] Rogers Geller DO [address] [place] [address] documented as of this encounter Goals Goal [...] documented as of this encounter Care Teams Asphalt Heater Tender Relationship Specialty Start Date End Date Rogers Geller DO [address] [place] [address] PCP - General Internal Medicine 12/07/23 documented as of this encounter
--- OUTSIDE RECORDS SUMMARY | 2025-02-08 13:19 | XMS_ITS | Encounter Summary ---
Author Organization [facility] Address [facility] [place] [address] Care Team Providers Care Dishwashing Machine Repairer Name Role Phone Yimi Rogers Prasad Primary Care Provider [phone] Frandy Caba DO Unavailable [phone] Source Comments In the event this information is protected by the Federal Confidentiality of Alcohol and Drug AbusePatient Records regulations: The Federal rules restrict any use of the information to criminally investigate or prosecute any alcohol or drug abuse patient.[facility] Reason for Visit * Reason Comments Patient Update Results Patient Question Encounter Details Date Type Department Care Team ([facility] Contact Info) Description 09/05/2024 Telephone Neurology [address] [place] [address] [phone] Marta Rankin APRN.FERMENTOLOGIST [address] [place] [address] Patient Update; Results; Patient Question Social History Tobacco Use Types Packs/Day Years Used Date Smoking Tobacco: Every Day Cigarettes Area Deprivation Index Answer Date Nav rded National Score (1-100), lower number is lower ri sk 60 08/25/2024 State Score (1-10), lower number is lower risk 4 08/25/2024 Data from: https://www.neighborhoodatlas.[facility]/. Last address used for calculation [address] [address] 08/25/2024 Sex and Gender Information [...] AM EST Call received for Marta Rankin APRN.FERMENTOLOGIST regarding Maxwell Harris. Caller: self Patient Identified [...] not found Best number to reach caller: [phone] Best time to reach caller: anytime Is it OK to leave a detailed voice message? Yes Ita Benitez documented in this encounter Plan of Treatment Upcoming Encounters Date Type Department Care Team (Late st Contact Info) Description 02/21/2025 3:00 PM EDT Office Visit Spine Surgery [facility] [address] [place] [address] Jus Wisdom MD [address] [place] [address] 6 week post op follow up with pre-visit XR documented as of this encounter Visit Diagnoses Not on filedocumented in this encounter Care Teams Dishwashing Machine Repairer Relationship Specialty Start Date End Date Rogers Geller [address] [place] [address] PCP - General Internal Medicine 07/14/24 Frandy Caba DO [address] [place] [address] Referring Neurology 07/14/24 documented as of this encounter
--- OUTSIDE RECORDS SUMMARY | 2025-02-08 13:19 | XMS_ITS | Encounter Summary ---
Author Organization [facility] tem Address [facility] [place]-[id number] [address] [place] [address] Care Team Providers Care Job Developer For Deaf Adults Name Role Phone Rogers Geller Primary Care Provider [phone] Encounter Details Date Type Department Care Team (Late st Contact Info) Description 06/29/2024 [facility] [address] [place] [address] Ref Prov, [place] [address] Social History Tobacco Use Types Packs/Day Years [...] any clubs o r organizations such as restorationism groups, unions, fraternal [...] Recorded Do you need help finding a [employer] career center and/or a training program? [...] Internal Medicine - Family Medicine [address] [place] [address] Rogers Geller DO [address] [place] [address] documented as of this encounter Goals Goal [...] documented as of this encounter Care Teams Job Developer For Deaf Adults Relationship Specialty Start Date End Date Rogers Geller DO [address] [place] [address] PCP - General Internal Medicine 12/07/23 documented as of this encounter
--- OUTSIDE RECORDS SUMMARY | 2025-02-08 13:19 | XMS_ITS | Encounter Summary ---
Author Organization [facility] tem Address [id number] [address] [place] [address] Care Team Providers Care Spreader Name Role Phone Rogers Geller Primary Care Provider [phone] Encounter Details Date Type Department Care Team (Late st Contact Info) Description 07/08/[address] [facility] [address] [place] [address] Ref Prov, [place] [address] Social History Tobacco Use Types Packs/Day Years [...] often do you attend chur ch or cheondoism services? Never 04/23/2020 Do you belong to any clubs o r organizations such as buddhism groups, unions, fraternal or athletic groups, or [...] Recorded Do you need help finding a [employer] career center and/or a training program? No [...] Internal Medicine - Family Medicine [address] [place] [address] Rogers Geller DO [address] [place] [address] documented as of this encounter Goals Goal [...] documented as of this encounter Care Teams Spreader Relationship Specialty Start Date End Date Rogers Geller DO [address] [place] [address] PCP - General Internal Medicine 12/07/23 documented as of this encounter
--- OUTSIDE RECORDS SUMMARY | 2025-02-08 13:19 | XMS_ITS | Encounter Summary ---
Author Organization [employer] [facility] Address [facility] [place]-[id number] [address] [place] [address] Care Team Providers Care Clothes Separator Name Role Phone Rogers Geller Primary Care Provider [phone] Reason for Visit * Reason Onset Date Comments Med Refill 09/19/2024 Encounter Details Date Type Department Care Team (Late st Contact Info) Description 09/19/2024 Refill [facility] Internal Medicine - Family Medicine [address] [place] [address] Ayana Brown CMA Social History Tobacco Use [...] attend chur ch or voodoo services? Never 04/23/2020 Do you belong to any clubs o r organizations such as congregation groups, unions, fraternal or athletic groups, or [...] Recorded Do you need help finding a [employer] career center and/or a training program? No [...] - Family Medicine [address] [place] [address] Rogers Geller DO [address] [facility] [place] [address] documented as of this encounter Goals Goal Patient Goal Type Associated Problems Recent Progress Patient-Stated? Author home General Yes Jenny Corona, RN Note: Evaluation of progress towards goal: patient anticipates discharge home with home care at this time Patient is planning to transition to inpatient rehab General Yes Rae Burton, MAINSPRING STRIP GAUGER Note: Evaluation of progress towards goal: Patient is planning to transition to inpatient rehab. documented as of this encounter Visit Diagnoses Not on filedocumented in this encounter Additional Health Concerns Assessment Noted Time PHQ-9 Depression Total Score: 0 08/22/19 25 1:43 PM EST documented as of this encounter Care Teams Clothes Separator Relationship Specialty Start Date End Date Rogesr Geller DO [address] [place] [address] PCP - General Internal Medicine 12/07/23 documented as of this encounter
--- OUTSIDE RECORDS SUMMARY | 2025-02-08 13:19 | XMS_ITS | Encounter Summary ---
[facility] [place]-[id number] [address] [place] [address] Care Team Providers Care Supervising Airplane Pilot Name Role Phone Rogers Geller DO Primary Care Provider [phone] Encounter Details Date Type Department Care Team (Late st Contact Info) Description 02/15/2024 Orders Only [facility] Internal Medicine - Family Medicine [address] [place] [address] Rogers Geller DO [address] [place] [address] Social History Tobacco Use Types Packs/Day Years [...] often do you attend chur ch or spiritism services? Never 04/23/2020 Do you belong to any clubs o r organizations such as zoroastrian groups, unions, fraternal or athletic groups, or [...] Recorded Do you need help finding a [employer] career center and/or a training program? No [...] Internal Medicine - Family Medicine [address] [place] [address] Rogers Geller DO [address] [place] [address] documented as of this encounter Goals Goal [...] documented as of this encounter Care Teams Supervising Airplane Pilot Relationship Specialty Start Date End Date Rogers Geller DO [address] [place] [address] PCP - General Internal Medicine 12/07/23 documented as of this encounter
--- OUTSIDE RECORDS SUMMARY | 2025-02-08 13:20 | XMS_ITS | Encounter Summary ---
Author Organization [employer] tem Address [facility] [place]-[id number] [address] [place] [address] Care Team Providers Care Fur Tinter Name Role Phone Rogers Geller Primary Care Provider [phone] Encounter Details Date Type Department Care Team (Late st Contact Info) Description 12/05/2020 Telephone [facility] General Surgery-Trauma [address] [place] [address] Catrachita Steele CMA Social History Tobacco Use [...] often do you attend chur ch or episcopalian services? Never 04/23/2020 Do you belong to [...] Recorded Do you need help finding a [facility] career center and/or a training [...] Medicine - Family Medicine [address] [facility] [place] [address] Rogers Geller DO [address] [place] [address] documented as of this encounter Goals Goal [...] documented as of this encounter Care Teams Fur Tinter Relationship Specialty Start Date End Date Rogers Geller DO [address] [facility] [place] [place] [address] PCP - General Internal Medicine 12/07/23 documented as of this encounter
--- OUTSIDE RECORDS SUMMARY | 2025-02-08 13:20 | XMS_ITS | Encounter Summary ---
Author Organization [facility] Address [address] [place] [address] Care Team Providers Care Box Car Washer Name Role Phone Rogers Geller MD Primary Care Provider Encounter Details Date Type Department Care Team (Late Contact Info) Description 01/26/2025 Bamboo flowsheet [facility] [address] [place] [phone] Rogelio Kirk DPM [address] [address] Social History Tobacco Use Types Packs/Day Years [...] [facility] [address] [place] [address] Rogelio Kirk DPM [address] [address] 03/16/2025 4:20 PM EDT Office Visit [facility] [address] [place] [phone] Rogelio Kirk DPM [address] [address] 04/06/2025 3:40 PM EDT Procedure Visit [facility] [address] [facility] [address] [place] [address] Rogelio Kirk DPM [address] [facility] [address] [place] [address] documented as of this encounter Visit Diagnoses Not on filedocumented in this encounter Care Teams Box Car Washer Relationship Specialty Start Date End Date Rogers Geller MD [address] [place] [address] PCP - General Internal Medicine 01/04/24 documented as of this encounter
--- OUTSIDE RECORDS SUMMARY | 2025-02-08 13:20 | XMS_ITS | Clinical Summary ---
Author Organization [facility] Address [address] [place] [address] Care Team Providers Care Inorganic Chemical Technician Name Role Phone Rogers Geller Primary Care Provider [phone] Frandy Caba DO Unavailable [phone] Allergies No known active allergies Medications atorvastatin [...] Care Team Description 02/07/2025 3:15 PM EDT [facility] [place] [id number] Marta Rankin, SYSTEMS DESIGN ENGINEER.TRANSFORMATION ARCHITECT Cervical spondylosis with myelopathy (Primary Dx) 01/24/2025 Telephone Neurology [facility] [address] [place] [address] Jus Wisdom MD 01/20/2025 Refill Neurology [address] [place] [address] Jus Wisdom MD Refill Request 12/27/2024 Refill Neurology [address] [place] [address] Jus Wisdom MD Refill Request 12/23/2024 Refill Neurology [address] [place] [address] Jus Wisdom MD Refill Request 12/14/2024 Telephone Neurology [address] [place] [address] Jus Wisdom MD Medication Problem 12/01/2024 2:15 PM EDT Office Visit Spine [address] [address] Marta Rankin, SYSTEMS DESIGN ENGINEER.TRANSFORMATION ARCHITECT Cervical spondylosis with myelopathy (Primary Dx); Acute post-operative pain 11/30/2024 Refill Neurology [address] [place] [address] Jus Wisdom MD Refill Request 11/22/2024 Telephone [address]ine [address] [address] Sally Brownlee LSW home care referrals 11/22/2024 Telephone Neurology [address] [place] [address] Jus Wisdom MD Patient Update; Patient Question 11/16/2024 7:42 AM EDT Anesthesia Event [facility] Operating Room [address] [place] [address] Jose Rahman MD 11/16/2024 7:30 AM EDT - 11/16/2024 10:45 AM EDT Surgery [facility] Operating Room [address] [place] [address] Jus Wisdom MD CERVICAL LAMINOPLASTY WITH DECOMPRESSION 2 OR MORE SEGMENTS 11/16/2024 6:09 AM EDT - 11/19/2024 11:38 AM EDT Hospital Encounter [facility] [address] [place], [place] [id number] Jus Wisdom MD Cervical spinal stenosis [M48.02], Cervical spondylosis with myelopathy [M47.12], Pre-op testing [Z01.818], 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], Anemia following surgery [D64.9] Discharge Disposition: Home 11/16/2024 Travel 11/14/2024 3:00 PM EDT Nurse Visit [facility] [place] [address] [place] [address] Nancy Vazquez RN Spinal stenosis in cervical region (Primary Dx) from Last 3 Months Social History Tobacco Use Types Packs/Day Years Used Date Smoking Tobacco: Every Day Cigarettes Smokeless Tobacco: Never Tobacco Cessation:Ready to Q uit: Not Asked; Counseling Given: Not Answered Alcohol Use Standard Drinks/Week Comments Not Currently 0 (1 standard drink = 0.6 oz pur e alcohol) [facility] Utilities Answer Date Recorded In the past 12 months has e Cog[employer], gas, oil, or water [employer] threatened to shut off services in your [...] any time in the past [address] [facility], were you homeless or living in a fdc (including now)? Yes 11/17/2024 Area Deprivation Index Answer Date Nav rded National Score (1-100), lower number is lower ri sk 94 10/25/2024 State Score (1-10), lower number is lower risk 9 10/25/2024 Data from: https://www.neighborhoodatlas.medicine.[facility].edu/. Last address used for calculation [address] 10/25/2024 Sex and Gender Information Value [...] 3:00 PM EDT Office Visit Spine Surgery [facility] [address] [place] [address] Jus Wisdom MD [address] [place] [address] 6 week post op follow up with [...] 12/07/2023, 07/16/2022 Medical Devices Implanted Type Area Medical Record Administrator Device Identifier Shelf Expiration Date Model / Serial / Lot Plate Canopy 7mm Bone Shelf Inline Spine Implanted:Qty: 3 on 11/16/2024 at [facility] Plate N/A: Spine - Cervical [employer] 1102.3007 / / Screw Canopy 2.6mm 4mm Bone Self Drill Laminoplasty Spine - [id number] Implanted:Qty: 6 on 11/16/2024 at [facility] Screw N/A: Spine - Cervical [employer] [id number] / / Canopy 2.6mm Screw Self-Drilling 6mm Implanted:Qty: 3 on 11/16/2024 at [facility] Screw N/A: Spine - Cervical GLOBUS [...] resultswithin the time period is included. Pathologist [facility] WBC 8.87 3.70 - 11.00 k/uL 11/19/2024 8:06 AM EDT [facility] RBC 3.98(L) 4.20 - 6.00 m/uL 11/19/2024 8:06 AM EDT [facility] Hemoglobin 13.1 13.0 - 17.0 g/dL 11/19/2024 8:06 AM EDT [facility] Hematocrit 39.8 39.0 - 51.0 % 11/19/2024 8:06 AM EDT [facility] MCV 100.0 80.0 - 100.0 fL 11/19/2024 8:06 AM EDT [facility] MCH 32.9 26.0 - 34.0 pg 11/19/2024 8:06 AM EDT [facility] MCHC 32.9 30.5 - 36.0 g/dL 11/19/2024 8:06 AM EDT [facility] RDW-CV 14.6 11.5 - 15.0 % 11/19/2024 8:06 AM EDT [facility] Platelet Count 188 150 - 400 k/uL 11/19/2024 8:06 AM EDT [facility] MPV 10.5 9.0 - 12.7 fL 11/19/2024 8:06 AM EDT [facility] Absolute nRBC <0.01 <0.01 k/uL 11/19/2024 8:06 AM EDT [facility] Blood BLOOD SPECIMEN / Unknown Venipuncture / Unknown 11/19/2024 4:49 AM EDT 11/19/2024 7:59 AM EDT us Jody Amaya PA-C LABORATORY Final Resul t [facility] [address] * (ABNORMAL) BASIC METABOLIC PANEL (11/19/2024 4:49 AM EDT) Only the most recent of3 resultswithin the time period is included. [facility] Glucose 84 74 - 99 mg/dL 11/19/2024 8:31 AM EDT [facility] Comment: The [place] Diabetes Association (ADA) provides guidance for cutoff [...] Standards of Medical Care in Diabetes 2016, [place] Diabetes Association. Diabetes Care. 2016.39(Suppl 1). BUN 16 9 - 24 mg/dL 11/19/2024 8:31 AM EDT [facility] Creatinine 0.59(L) 0.73 - 1.22 mg/dL 11/19/2024 8:31 AM EDT [facility] Sodium 140 136 - 144 mmol/L 11/19/2024 8:31 AM EDT [facility] Potassium 4.4 3.7 - 5.1 mmol/L 11/19/2024 8:31 AM EDT [facility] Chloride 106 98 - 107 mmol/L 11/19/2024 8:31 AM EDT [facility] CO2 23 22 - 30 mmol/L 11/19/2024 8:31 AM EDT [facility] Anion Gap 11 8 - 15 mmol/L 11/19/2024 8:31 AM EDT [facility] Calcium, Total 8.9 8.5 - 10.2 mg/dL 11/19/2024 8:31 AM EDT [facility] Estimated Glomerular Filtration Rate 112 >=60 mL/min/1. 73m 11/19/2024 8:31 AM EDT [facility] Comment:Estimated Glomerular Filtration Rate (eGFR) is [...] LABORATORY Final Resul t Performing Organization Address City/State/[facility] Co de Phone Number [place] [phone], [place] * GLUCOSE, BLOOD (POC) (11/18/2024 4:00 PM EDT) Glucose, Point of Care 97 74 - 99 mg/dL [facility] Comment: Location:[facility], [address] [place] [address], [address] The Accu-Chek Inform II glucose meter has [...] TESTING Final Resul t Performing Organization Address [facility] Co de Phone Number [facility] POINT OF CARE [address] * XR CERV GENERAL 2V AP/LAT (11/18/2024 11:44 AM EDT) Anatomical Region Laterality Modality C-spine Radiographic Nicole ging 11/18/2024 11:4 4 AM EDT Impressions 11/18/2024 3:06 PM EDT IMPRESSION: Postsurgical findings Contract Specialist: STEPHANIEB Transcribe Date/Time: Nov 18 2024 3:02P [...] Narrowing C6-7 disc space. Procedure Note Provider, [facility] [place] - 11/18/2024 * * *Final Report* * [...] C6-7 disc space. IMPRESSION IMPRESSION: Postsurgical findings Contract Specialist: [facility] Transcribe Date/Time: Nov 18 2024 3:02P Dictated [...] the lamina of C3, C4 and C5. Contract Specialist: [facility] Transcribe Date/Time: Nov 17 2024 3:13P Dictated [...] 11/16/2024 at 0845 hours Procedure Note Provider, [facility] [place] - 11/17/2024 * * *Final Report* * [...] the lamina of C3, C4 and C5. Contract Specialist: [facility] Transcribe Date/Time: Nov 17 2024 3:13P Dictated [...] phone and Skype during the surgical procedure. Contract Specialist: [facility] Transcribe Date/Time: Nov 16 2024 8:48A Dictated [...] the time of interpretation. Procedure Note Provider, [facility] - 11/16/2024 * * *Final Report* * [...] phone and Skype during the surgical procedure. Contract Specialist: [facility] Transcribe Date/Time: Nov 16 2024 8:48A [...] phone and Skype during the surgical procedure. Contract Specialist: LIANA Transcribe Date/Time: Nov 16 2024 8:48A [...] the time of interpretation. Procedure Note Provider, [facility] - 11/16/2024 * * *Final Report* * [...] phone and Skype during the surgical procedure. Contract Specialist: LIANA Transcribe Date/Time: Nov 16 2024 8:48A [...] Re sult from Last 3 Months Insurance [facility] MEDICAID Advance Directives * Full Code (Latest Code Status on File) Date Activated Date Inactivated Comments 11/16/2024 11:36 AM 11/19/2024 2:43 PM Question Answer Comments Full Code Order Discussed With: Patient Care Teams Inorganic Chemical Technician Relationship Specialty Start Date End Date Rogers Geller [address] [place] [address] PCP - General Internal Medicine 07/14/24 Frandy Caba DO [address] [place] [address] Referring Neurology 07/14/24
--- OUTSIDE RECORDS SUMMARY | 2025-02-08 13:20 | XMS_ITS | Encounter Summary ---
Author Organization [facility] Address [facility]-[id number] [address] [place] [address] Care Team Providers Care Machine Stonecutter Name Role Phone Rogers Geller Primary Care Provider [phone] Reason for Visit * Reason Onset Date Comments Appointment 07/10/2023 Encounter Details Date Type Department Care Team (Late st Contact Info) Description 07/10/2023 [facility]phone [facility]-Tra[facility] [address] [place] [address] Rosemary Najera MA Appointment Social History Tobacco [...] Recorded Do you need help finding a [facility] career center and/or a training program? No [...] Internal Medicine - Family Medicine [address] [place] [address] Rogers Geller DO [address] [place] [address] documented as of this encounter Goals Goal [...] documented as of this encounter Care Teams Machine Stonecutter Relationship Specialty Start Date End Date Rogers Geller DO [address] [place] [address] PCP - General Internal Medicine 12/07/23 documented as of this encounter
--- OUTSIDE RECORDS SUMMARY | 2025-02-08 13:20 | XMS_ITS | Encounter Summary ---
Author Organization [employer] s tem Address [facility]-[id number] [address] [place] [address] Care Team Providers Care Card Mounter Name Role Phone Rogers Geller Primary Care Provider [phone] Encounter Details Date Type Department Care Team (Late st Contact Info) Description 08/15/2020 Telephone [facility]icians General Surgery-Trauma [address] [place] [phone] Rosemary Najera MA Social History Tobacco Use [...] often do you attend chur ch or pentecostal services? Never 04/23/2020 Do you belong to [...] Internal Medicine - Family Medicine [address] [place] [address] Rogers Geller DO [address] [place] [address] documented as of this encounter Goals Goal [...] documented as of this encounter Care Teams Card Mounter Relationship Specialty Start Date End Date Rogers Geller DO [address] [place] [address] PCP - General Internal Medicine 12/07/23 documented as of this encounter
--- OUTSIDE RECORDS SUMMARY | 2025-02-08 13:20 | XMS_ITS | Encounter Summary ---
Author Organization [facility] Address [address] [place] [address] Care Team Providers Care Kitchen Help Handyman Name Role Phone Rogers Geller MD Primary Care Provider [phone] Encounter Details Date Type Department Care Team (Late st Contact Info) Description 02/07/2025 Orders Only [facility] [address] [place] [address] Anabell Malave Preop examination Social History Tobacco [...] Visit [facility] [address] [facility] [address] [place] [phone] Rogelio Kirk DPM [address] [address] 03/16/2025 4:20 PM EDT Office Visit [facility] [address] [place] [address] [place] [address] Rogelio Kirk DPM [address] [address] 04/06/2025 3:40 PM EDT Procedure Visit [facility] [address] [facility] [address] [place] [address] Rogelio Kirk DPM [address] [facility] [address] [place] [address] documented as of this encounter Visit Diagnoses Diagnosis Preop examination Unspecified pre-operative examination documented in this encounter Care Teams Kitchen Help Handyman Relationship Specialty Start Date End Date Rogers Geller MD [address] [place] [address] PCP - General Internal Medicine 01/04/24 documented as of this encounter
--- OUTSIDE RECORDS SUMMARY | 2025-02-08 13:20 | XMS_ITS | Encounter Summary ---
Author Organization [employer] Address [facility][id number] [address] [place] [address] Care Team Providers Care Gsa Coordinator Name Role Phone Rogers Geller DO Primary Care Provider [phone] Reason for Visit * Reason Comments Med Refill Encounter Details Date Type Department Care Team (Late st Contact Info) Description 02/06/2025 Refill [facility] Internal Medicine - Family Medicine [address] [place] [address] Rogers Geller DO [address] [place] [address] Intractable chronic post-traumatic headache (Primary Dx); Tobacco [...] often do you attend chur ch or rastafari services? Never 04/23/2020 Do you belong to [...] Recorded Do you need help finding a [facility] career center and/or a training [...] Internal Medicine - Family Medicine [address] [place] [address] Rogers Geller DO [address] [place] [address] documented as of this encounter Goals Goal Patient Goal Type Associated Problems Recent Progress Patient-Stated? Author home General Yes Jenny Corona, RN Note: Evaluation of progress towards goal: patient anticipates discharge home with home care at this time Patient is planning to transition to inpatient rehab General Yes Rae Burton, PLISSE MACHINE OPERATOR Note: Evaluation of progress towards goal: Patient is planning to transition to inpatient rehab. documented as of this encounter Visit Diagnoses Diagnosis Intractable chronic post-traumatic headache- Primary Tobacco abuse Tobacco use disorder documented in this encounter Additional Health Concerns Assessment Noted Time PHQ-9 Depression Total Score: 9 01/05/20 25 1:31 PM EDT documented as of this encounter Care Teams Gsa Coordinator Relationship Specialty Start Date End Date Rogers Geller DO [address] [place] [address] PCP - General Internal Medicine 12/07/23 documented as of this encounter
--- OUTSIDE RECORDS SUMMARY | 2025-02-08 13:20 | XMS_ITS | Encounter Summary ---
Author Organization [employer] s tem Address [facility]-[id number] [address] [place] [address] Care Team Providers Care Hospital Nurse Liaison Name Role Phone Rogers Geller Primary Care Provider [phone] Encounter Details Date Type Department Care Team (Late st Contact Info) Description 09/20/2020 [facility] General Surgery-Trauma [address] [place] [phone] Rosemary Najera MA Social History Tobacco Use [...] often do you attend chur ch or mormon services? Never 04/23/2020 Do you belong to [...] Internal Medicine - Family Medicine [address] [place] [address] Rogers Gelelr, DO [address] [facility] [place] [address] documented as of this encounter Goals Goal [...] documented as of this encounter Care Teams Hospital Nurse Liaison Relationship Specialty Start Date End Date Rogers Geller DO [address] [place] [address] PCP - General Internal Medicine 12/07/23 documented as of this encounter
--- OUTSIDE RECORDS SUMMARY | 2025-02-08 13:20 | XMS_ITS | Encounter Summary ---
Author Organization [employer] Address [facility]-[id number] [address] [place] [address] Care Team Providers Care Batch Mixer Operator Name Role Phone Rogers Geller Primary Care Provider [phone] Reason for Visit * Reason Onset Date Comments Med Refill 11/08/2020 Encounter Details Date Type Department Care Team (Late st Contact Info) Description 11/08/2020 Refill [facility] General Surgery-Trauma [address] [place] [address] Catrachita Steele CMA Social History Tobacco Use [...] often do you attend chur ch or advent services? Never 04/23/2020 Do you belong to [...] Recorded Do you need help finding a [employer] center and/or a training program? No 10/16/2020 [...] Internal Medicine - Family Medicine [address] [place] [address] Rogers Geller, [address] [place] [address] documented as of this encounter Goals Goal [...] documented as of this encounter Care Teams Batch Mixer Operator Relationship Specialty Start Date End Date Rogers Geller DO [address] [place] [address] PCP - General Internal Medicine 12/07/23 documented as of this encounter
--- OUTSIDE RECORDS SUMMARY | 2025-02-08 13:20 | XMS_ITS | Encounter Summary ---
Author Organization [employer] s tem Address [facility]-[id number] [address] [place] [address] Care Team Providers Care Artistic Associate Name Role Phone Rogers Geller Primary Care Provider [phone] Encounter Details Date Type Department Care Team (Late st Contact Info) Description 11/21/2020 Telephone [facility] Physicians General Surgery-Trauma [address] [place] [address] Catrachita Steele CMA Social History Tobacco Use [...] often do you attend chur ch or amish services? Never 04/23/2020 Do you belong to any clubs o r organizations such as yazidi groups, unions, fraternal or athletic groups, or [...] Recorded Do you need help finding a [employer] career center and/or a training program? No [...] - Family Medicine [address] [place] [address] Rogers Geller, [address] [facility] [place] [address] documented as of this encounter Goals Goal [...] documented as of this encounter Care Teams Artistic Associate Relationship Specialty Start Date End Date Rogers Geller DO [address] [place] [address] PCP - General Internal Medicine 12/07/23 documented as of this encounter
--- OUTSIDE RECORDS SUMMARY | 2025-02-08 13:20 | XMS_ITS | Clinical Summary ---
Author Organization [employer] tem Address [facility] [place]-[id number] [address] [place] [address] Care Team Providers Care Surveillance Director Name Role Phone Rogers Geller Primary Care Provider [phone] Allergies No known active allergies Medications latanoprost [...] Medicine - Family Medicine [address] [place] [address] Rogers Geller DO Intractable chronic post-traumatic headache (Primary Dx); Tobacco abuse 01/07/2025 Refill [facility] Internal Medicine - Family Medicine [address] [place] [address] Rogers Geller DO Localized osteoarthritis of lumbar spine 01/04/2025 2:30 PM EDT Office Visit [facility] Internal Medicine - Family Medicine [address] [place] [address] Rogers Geller DO Hammer toe of left foot (Primary Dx) 01/04/2025 Travel 12/28/2024 Telephone [facility] Internal Medicine - Family Medicine [address] [place] [address] Ling Main, FRANCES 12/28/2024 Travel 12/14/2024 Telephone [facility] Internal Medicine - Family Medicine [address] [place] [address] Wild Holliday CMA 12/13/2024 1:30 PM EDT Office Visit [facility] Internal Medicine - Family Medicine [address] [place] [address] Rogers Geller, 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 (Primary Dx); B12 deficiency; Ataxia following other nontraumatic intracranial hemorrhage; 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, subsequent encounter; Tobacco abuse; Hyperlipidemia, unspecified hyperlipidemia type 12/13/2024 Orders Only [facility] Internal Medicine - Family Medicine [address] [place] [address] Rogers Geller, 12/13/2024 Travel 12/11/2024 Refill [facility] Internal Medicine - Family Medicine [address] [place] [address] Rogers Geller DO Intractable chronic post-traumatic headache 11/30/2024 Refill [facility] Internal Medicine - Family Medicine [address] [place] [address] Ling Main [facility] B12 deficiency 11/21/2024 Refill [facility] Internal Medicine - Family Medicine [address] [place] [address] Rogers Geller DO Tobacco abuse from Last [...] Recorded Do you need help finding a [facility] career center and/or a training program? [...] Internal Medicine - Family Medicine [address] [place] [address] Rogers Geller [address] [place] [address] Health Maintenance Due Date Last Done Comments [...] - 914 pg/mL 12/13/2024 6:56 PM EDT [facility] Blood Venous blood / Unknown 12/13/2024 2:24 PM EDT 12/13/2024 2:24 PM EDT Rogers Geller DO LAB BLOOD ORDERABLES Final Resul t [facility] [address] [place] [address], [place] [phone] * (ABNORMAL) Lipid profile (12/13/2024 2:24 PM EDT) CHOLESTEROL 226(H) 150 - 200 mg/dL 12/13/2024 6:37 PM EDT [facility] TRIGLYCERIDE 165(H) 27 - 150 mg/dL 12/13/2024 6:37 PM EDT [facility] HDL CHOLESTEROL 66 >39 mg/dL 5 6:37 PM EDT [facility] Comment: HDL <40 mg/dL - High Risk HDL > or = 40mg/dL- Desirable HDL >60 mg/dL - Negative Risk LDL (CALC) 127 <130 mg/dL 12/13/2024 6:37 PM EDT [facility] Comment: LDL <100 mg/dL - Desirable LDL >160 mg/dL - High Risk CHOLESTEROL:HDL 3.4 1.0 - 5.0 5 6:37 PM EDT [facility] VERY LOW LIPOPROTEIN 33(H) 0 - 30 mg/dL 12/13/2024 6:37 PM EDT [facility] Blood Venous blood / Unknown 12/13/2024 2:24 PM EDT 12/13/2024 2:24 PM EDT Rogers Geller DO LAB BLOOD ORDERABLES Final Resul t [facility] [address] [place] [address], [place] [phone] * (ABNORMAL) Comprehensive metabolic panel (12/13/2024 2:24 PM EDT) SODIUM 142 134 - 146 mmol/L 12/13/2024 6:37 PM EDT [facility] POTASSIUM 4.2 3.5 - 5.0 mmol/L 12/13/2024 6:37 PM EDT [facility] CHLORIDE 111(H) 98 - 109 mmol/L 12/13/2024 6:37 PM EDT [facility] CARBON DIOXIDE 25 22 - 32 mmol/L 12/13/2024 6:37 PM EDT [facility] ANION GAP 6 5 - 15 mmol/L 12/13/2024 6:37 PM EDT [facility] BLOOD UREA NITROGEN 23 5 - 23 mg/dL 12/13/2024 6:37 PM EDT [facility] CREATININE 0.92 0.60 - 1.30 mg/dL 12/13/2024 6:37 PM EDT [facility] Comment:METHOD TRACEABLE TO IDMS STANDARD GLUCOSE 99 65 - 99 mg/dL 12/13/2024 6:37 PM EDT [facility] CALCIUM 9.6 8.5 - 10.5 mg/dL 12/13/2024 6:37 PM EDT [facility] TOTAL PROTEIN 7.0 6.0 - 8.0 g/dL 12/13/2024 6:37 PM EDT [facility] ALBUMIN 4.6 3.2 - 5.3 g/dL 12/13/2024 6:37 PM EDT [facility] ALKALINE PHOSPHATASE 63 39 - 130 U/L 12/13/2024 6:37 PM EDT [facility] AST 20 <=41 U/L 12/13/2024 6:37 PM EDT [facility] ALT 17 <=40 U/L 12/13/2024 6:37 PM EDT [facility] BILIRUBIN,TOTAL 0.3 0.3 - 1.2 mg/dL 12/13/2024 6:37 PM EDT [facility] EGFR Non-Race Dependent >90 >=60 ml/min/1.7 3sq.m 12/13/2024 6:37 PM EDT [facility] Comment: Reported eGFR is based on the CKD-EPI 2020 equation that does not use a race coefficient. Blood Venous blood / Unknown 12/13/2024 2:24 PM EDT 12/13/2024 2:24 PM EDT Rogers Geller DO LAB BLOOD ORDERABLES Final Resul t [facility] [address] [place] [address], from Last 3 Months Insurance [facility] MEDICAID Advance Directives * Full Code (Latest Code Status on File) Date Activated Date Inactivated Comments 06/19/2022 6:51 PM 07/12/2022 12:51 PM * Full Code Date Activated Date Inactivated Comments 10/16/2020 11:21 AM 2020 3:58 PM * Full Code Date Activated Date Inactivated Comments 04/23/2020 2:03 AM 04/27/2020 9:19 PM Care Teams Surveillance Director Relationship Specialty Start Date End Date Rogers Geller DO [address] [id number] PCP - General Internal Medicine 12/07/23
--- OUTSIDE RECORDS SUMMARY | 2025-02-08 13:20 | XMS_ITS | Encounter Summary ---
Author Organization [employer] Address [facility]-[id number] [address] [place] [address] Care Team Providers Care Woodwork Salvage Inspector Name Role Phone Rogers Geller Primary Care Provider [phone] Encounter Details Date Type Department Care Team (Late st Contact Info) Description 11/29/[address] [facility] General Surgery-Trauma [address] [place] [address] Catrachita Steele CMA Social History Tobacco Use [...] often do you attend chur ch or scientologist services? Never 04/23/2020 Do you belong to [...] you need help finding a [facility] career center and/or a training [...] Motrin 800. He wants it sent to [facility] in [place]. * Telephone Encounter - Catrachita Steele CMA [...] Internal Medicine - Family Medicine [address] [place] [address] Rogers Geller DO [address] [facility] [facility] [place] [address] documented as of this encounter Goals Goal [...] documented as of this encounter Care Teams Woodwork Salvage Inspector Relationship Specialty Start Date End Date Rogers Geller DO [address] [place] [address] PCP - General Internal Medicine 12/07/23 documented as of this encounter
--- OUTSIDE RECORDS SUMMARY | 2025-02-08 13:20 | XMS_ITS | Clinical Summary ---
Author Organization [facility] Address [address] [place] [address] Care Team Providers Care Track Service Worker Name Role Phone Rogers Geller MD Primary Care Provider [phone] Allergies No known active allergies Medications atorvastatin [...] 75 mg before bedtime. Active HYDROcodone-ac etaminophen ([place]) 7.5-325 MG tablet Take 1 tablet by [...] 02/07/2025 Orders Only [facility] [address] [facility] [place] [address] Anabell Malave Preop examination 02/07/2025 Orders Only [facility] [address] [facility] [place] [address] Anabell Malave Preop examination 01/26/2025 3:40 PM EDT Office Visit [facility] [address] [place] [address] Rogelio Kirk DPM Hav (hallux abducto valgus), left (Primary Dx); Acquired deformity of left toe; Pain due to onychomycosis of toenails of both feet 01/26/2025 3:30 PM EDT Ancillary Procedure [facility] [address] [address] [place] [address] 01/26/2025 Telephone [facility] 112 [facility] 120 [place] [address] Rogelio Kirk DPM 01/26/2025 Bamboo flowsheet [facility] [address] [place] [address] Rogelio Kirk DPM 01/26/2025 Travel from Last [...] Office Visit [facility] [address] [place] [address] Rogelio Kirk DPM [address] [address] 03/16/2025 4:20 PM EDT Office Visit [facility] [address] [place] [address] Rogelio Kirk DPM [address] [address] 04/06/2025 3:40 PM EDT Procedure Visit [facility] 112 [facility] 120 [place] [address] Rogelio Kirk DPM 3006 [facility] 5 [place] [address] Health Maintenance Due Date Last [...] Laterality Modality Lower Extremities, [facility] Narrative 01/26/2025 3:26 PM EDT Imaging Result: HAV deformity left with intermetatarsal angle of 15 degrees with notable digital deformities 2 through 5 digits left foot and degenerative changes of the midfoot Rogelio Kirk DPM IMG XR PROCEDURES Final Res ult from Last 3 Months Insurance [facility] MEDICAID Care Teams Track Service Worker Relationship Specialty Start Date End Date Rogers Geller MD [address] [place] [address] PCP - General Internal Medicine 01/04/24
--- OUTSIDE RECORDS SUMMARY | 2025-02-08 13:20 | XMS_ITS | Encounter Summary ---
Author Organization [employer] s tem Address [facility] [place] [place]-[id number] [address] [place] [address] Care Team Providers Care Label Pinker Name Role Phone Rogers Geller Primary Care Provider Encounter Details Date Type Department Care Team (Late st Contact Info) Description 01/07/2021 Telephone [facility] General Surgery-Trauma [address] [place] [address] Catrachita Steele CMA Social History Tobacco Use [...] often do you attend chur ch or muslim services? Never 04/23/2020 Do you belong to any clubs o r organizations such as caodaism groups, unions, fraternal or athletic groups, or [...] Recorded Do you need help finding a [employer] career center and/or a training program? [...] Internal Medicine - Family Medicine [address] [place] [address] Rogers Geller, DO [address] [facility] [place] [address] documented as of this encounter Goals Goal [...] documented as of this encounter Care Teams Label Pinker Relationship Specialty Start Date End Date Rogers Geller DO [address] [place] [address] PCP - General Internal Medicine 12/07/23 documented as of this encounter
--- OUTSIDE RECORDS SUMMARY | 2025-02-08 13:20 | XMS_ITS | Encounter Summary ---
Author Organization [employer] Address [id number] [address] [place] [address] Care Team Providers Care Emr Analyst Name Role Phone Rogers Geller Primary Care Provider [phone] Encounter Details Date Type Department Care Team (Late st Contact Info) Description 12/14/2024 Telephone [facility] Internal Medicine - Family Medicine [address] [place] [address] Wild Holliday CMA Social History Tobacco Use [...] any clubs o r organizations such as catholic groups, unions, fraternal or athletic groups, [...] Recorded Do you need help finding a [facility] career center and/or a training program? [...] Medicine - Family Medicine [address] [place] [address] Rogers Geller DO [address] [place] [address] documented as of this encounter Goals Goal Patient Goal Type Associated Problems Recent Progress Patient-Stated? Author home General Yes Jenny Corona, RN Note: Evaluation of progress towards goal: patient anticipates discharge home with home care at this time Patient is planning to transition to inpatient rehab General Yes Rae Burton, SAWMILL EQUIPMENT OPERATOR Note: Evaluation of progress towards goal: Patient is planning to transition to inpatient rehab. documented as of this encounter Visit Diagnoses Not on filedocumented in this encounter Additional Health Concerns Assessment Noted Time PHQ-9 Depression Total Score: 0 12/14/19 25 1:34 PM EDT documented as of this encounter Care Teams Emr Analyst Relationship Specialty Start Date End Date Rogers Geller DO [address] [place] [address] PCP - General Internal Medicine 12/07/23 documented as of this encounter
--- OUTSIDE RECORDS SUMMARY | 2025-02-08 13:20 | XMS_ITS | Encounter Summary ---
Author Organization [facility] Address [address] [place] [address] Care Team Providers Care Layer Off Name Role Phone Rogers Geller MD Primary Care Provider [phone] Encounter Details Date Type Department Care Team (Late st Contact Info) Description 02/07/2025 Orders Only [facility] [address] [place] [address] Anabell Malave Preop examination Social History Tobacco [...] Visit [facility] [address] [facility] 120 [place] [address] Rogelio Kirk DPM [address] [address] 03/16/2025 4:20 PM EDT Office Visit [facility] [address] [place] [address] [place] [address] Rogelio Kirk DPM [address] [address] 04/06/2025 3:40 PM EDT Procedure Visit [facility] 112 [facility] 120 [place] [address] Rogelio Kirk DPM 3006 [facility] 5 [place] [address] Scheduled Orders Name Type Priority Associated Diagnoses [...] examination documented in this encounter Care Teams Layer Off Relationship Specialty Start Date End Date Rogers Geller MD [address] [place] [address] PCP - General Internal Medicine 01/04/24 documented as of this encounter
--- OUTSIDE RECORDS SUMMARY | 2025-02-08 13:20 | XMS_ITS | Encounter Summary ---
Author Organization [facility] [employer] Address [facility]-[id number] [address] [place] [address] Care Team Providers Care Nurse Supervisor Name Role Phone Rogers Geller Primary Care Provider Encounter Details Date Type Department Care Team (Late st Contact Info) Description 01/07/2021 Orders Only [facility] General Surgery-Trauma [address] [place] [address] Catrachita Steele CMA Pain (Primary Dx) Social [...] any clubs o r organizations such as mandaeism groups, unions, fraternal or athletic groups, or [...] Recorded Do you need help finding a [employer] career center and/or a training program? No [...] Internal Medicine - Family Medicine [address] [place] [address] Rogers Geller, [address] [place] [address] documented as of this encounter Goals Goal [...] documented as of this encounter Care Teams Nurse Supervisor Relationship Specialty Start Date End Date Rogers Geller DO [address] [place] [address] PCP - General Internal Medicine 12/07/23 documented as of this encounter
--- OUTSIDE RECORDS SUMMARY | 2025-02-08 13:20 | XMS_ITS | Encounter Summary ---
Author Organization [facility] Address [address] [address] Care Team Providers Care Corporate Traffic Manager Name Role Phone Rogers Geller MD Primary Care Provider Encounter Details Date Type Department Care Team ([facility] st Contact Info) Description 01/26/2025 Telephone [facility] 112 [facility] 120 [place] [address] Rogelio Kirk DPAshley 3006 [facility] 5 [place] [address] Social History Tobacco Use Types [...] AM EDT Per call with Sal @ [phone] with Kathy, policy is active and and [employer] are in network. Patient has no deductibles or co-insurances. Code 58405 does not require prior authorization. Reference#: [id number] PST orders were sent to [facility] PCP appt- 02/22 roque/ Yimi @ 2:45pm Pre-op and post op on schedule. Surgery scheduled on both portals.Demographics, insurance card, office notes, sx form, sx appt sheet uploaded to [facility] portal. 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 NO WEIGHT BEARING STATUS-- weight-bearing Percocet documented in this encounter Plan of Treatment Upcoming Encounters Date Type Department Care Team (Late st Contact Info) Description 03/02/2025 4:40 PM EDT Office Visit [facility] [address] [facility] 120 [place] [address] Rogelio Kirk DPM [address] [address] 03/16/2025 4:20 PM EDT Office Visit [facility] [address] [facility] [address] [place] [address] Rogelio Kirk DPM [address] [address] 04/06/2025 3:40 PM EDT Procedure Visit [facility] [address] [facility] [address] [place] [address] Rogelio Kirk DPM [address] [address] documented as of this encounter Visit Diagnoses Not on filedocumented in this encounter Care Teams Corporate Traffic Manager Relationship Specialty Start Date End Date Rogers Geller MD [address] [place] [address] PCP - General Internal Medicine 01/04/24 documented as of this encounter
--- OUTSIDE RECORDS SUMMARY | 2025-02-08 13:20 | XMS_ITS | Encounter Summary ---
Author Organization [employer] tem Address [facility] [place]-[id number] [address] [place] [address] Care Team Providers Care Him Specialists Name Role Phone Rogers Geller Primary Care Provider [phone] Encounter Details Date Type Department Care Team (Late st Contact Info) Description 11/08/[address] [facility] General Surgery-Trauma [address] [place] [address] Catrachita Steele CMA Social History Tobacco Use [...] any clubs o r organizations such as gnosticist groups, unions, fraternal or athletic groups, or [...] Do you need help finding a [facility] [place] [place] career center and/or a training program? No [...] - Family Medicine [address] [place] [address] Rogers Geller DO [address] [place] [address] documented as of this encounter Goals Goal [...] documented as of this encounter Care Teams Him Specialists Relationship Specialty Start Date End Date Rogers Geller DO [address] [place] [address] PCP - General Internal Medicine 12/07/23 documented as of this encounter
--- OUTSIDE RECORDS SUMMARY | 2025-02-08 13:20 | XMS_ITS | Encounter Summary ---
Author Organization [facility] Address [facility] [place]-[id number] [address] [place] [address] Care Team Providers Care Maintenance Repairman Name Role Phone Rogers Geller Primary Care Provider [phone] Reason for Visit * Reason Onset Date Comments Med Refill 09/18/2020 Encounter Details Date Type Department Care Team (Late st Contact Info) Description 09/18/2020 Refill [facility] General Surgery-Trauma [address] [facility] [address] [place] [address] Isaias Hicks, DO [address] [place], [place] [id number] Perforated diverticulum Social History Tobacco Use Types [...] any clubs o r organizations such as sabianist groups, unions, fraternal or athletic groups, or [...] Medicine - Family Medicine [address] [place] [address] Rogers Geller DO [address] [place] [address] documented as of this encounter Goals Goal [...] documented as of this encounter Care Teams Maintenance Repairman Relationship Specialty Start Date End Date Rogers Geller DO [address] [place] [address] PCP - General Internal Medicine 12/07/23 documented as of this encounter
--- OUTSIDE RECORDS SUMMARY | 2025-02-08 13:20 | XMS_ITS | Encounter Summary ---
Author Organization [employer] Address [facility] [id number] [address] [place] [address] Care Team Providers Care Manager Welding Name Role Phone Rogers Geller Primary Care Provider [phone] Reason for Visit * Reason Onset Date Comments Med Refill 11/08/2020 Encounter Details Date Type Department Care Team (Late st Contact Info) Description 11/08/2020 Refill [facility] General Surgery-Trauma [address] [place] [address] Catrachita Steele CMA Social History Tobacco Use [...] Recorded Do you need help finding a [place] center and/or a training program? No 10/16/2020 [...] Internal Medicine - Family Medicine [address] [place] [address] Rogers Geller, [address] [place] [address] documented as of this encounter Goals Goal [...] documented as of this encounter Care Teams Manager Welding Relationship Specialty Start Date End Date Rogers Geller DO [address] [place] [address] PCP - General Internal Medicine 12/07/23 documented as of this encounter
--- OUTSIDE RECORDS SUMMARY | 2025-02-08 13:20 | XMS_ITS | Encounter Summary ---
Author Organization [facility] Address [address] [place] [address] Care Team Providers Care Cylinder Die Machine Helper Name Role Phone Rogers Geller MD Primary Care Provider [phone] Encounter Details Date Type Department Care Team [...] [facility] [address] [place] [place] [address] Rogelio Kirk DPM [address] [address] 03/16/2025 4:20 PM EDT Office Visit [facility] [address] [place] [address] [place] [address] Rogelio Kirk DPM [address] [address] 04/06/2025 3:40 PM EDT Procedure Visit [facility] [address] [place] [address] [place] [address] Rogelio Kirk, DPM [address] [address] documented as of this encounter Visit Diagnoses Not on filedocumented in this encounter Care Teams Cylinder Die Machine Helper Relationship Specialty Start Date End Date Rogers Geller MD [address] [place] [address] PCP - General Internal Medicine 01/04/24 documented as of this encounter
--- OUTSIDE RECORDS SUMMARY | 2025-02-08 13:20 | XMS_ITS | Encounter Summary ---
Author Organization [facility] Address [facility] [place] [address] Care Team Providers Care Ticker Maintainer Name Role Phone Yimi Rogers Prasad Primary Care Provider [phone] Frandy Caba DO Unavailable [phone] Source Comments In the event this information is protected by the Federal Confidentiality of Alcohol and Drug AbusePatient Records regulations: The Federal rules restrict any use of the information to criminally investigate or prosecute any alcohol or drug abuse patient.[facility] Encounter Details Date Type Department Care Team (Late st Contact Info) Description 01/24/2025 Telephone Neurology [facility] [address] [place] [address] Jus Wisdom MD [address] [place] [id number] Social History Tobacco Use Types Packs/Day Years Used Date Smoking Tobacco: Every Day Cigarettes Smokeless Tobacco: Never Alcohol Use Standard Drinks/Week Comments Not Currently 0 (1 standard drink = 0.6 oz pur e alcohol) [facility] Utilities Answer Date Recorded In the past 12 months has [employer], gas, oil, or water company threatened [...] any time in the past 12 m [facility], were you homeless or living in a care home (including now)? Yes 11/17/2024 Area Deprivation Index Answer Date Nav rded National Score (1-100), lower number is lower ri sk 94 10/25/2024 State Score (1-10), lower number is lower risk 9 10/25/2024 Data from: https://www.neighborhoodatlas.medicine.[facility].edu/. Last address used for calculation [address] 10/25/2024 Sex and Gender Information Value [...] due to being post op? Please advise. [phone] documented in this encounter Plan of Treatment Upcoming Encounters Date Type Department Care Team (Late st Contact Info) Description 02/21/2025 3:00 PM EDT Office Visit Spine Surgery [facility] [address] [place] [address] Jus Wisdom MD [address] [place] [address] 6 week post op follow up with pre-visit XR documented as of this encounter Visit Diagnoses Not on filedocumented in this encounter Care Teams Ticker Maintainer Relationship Specialty Start Date End Date Rogers Geller [address] [place] [address] PCP - General Internal Medicine 07/14/24 Frandy Caba DO [address] [place] [address] Referring Neurology 07/14/24 documented as of this encounter
--- OUTSIDE RECORDS SUMMARY | 2025-02-08 13:20 | XMS_ITS | Encounter Summary ---
[facility] Address [id number] [address] [place] [address] Care Team Providers Care Horse Show Judge Name Role Phone Rogers Geller Primary Care Provider [phone] Encounter Details Date Type Department Care Team (Late st Contact Info) Description 04/30/2020 Telephone [facility]icians General Surgery-Trauma [address] [place] [phone] Rosemary Najera MA Social History Tobacco Use [...] any clubs o r organizations such as mormonism groups, unions, fraternal or athletic groups, or [...] Internal Medicine - Family Medicine [address] [place] [address] Rogers Geller, [address] [place] [address] documented as of this encounter Goals Goal [...] documented as of this encounter Care Teams Horse Show Judge Relationship Specialty Start Date End Date Rogers Geller DO [address] [id number] PCP - General Internal Medicine 12/07/23 documented as of this encounter
--- OUTSIDE RECORDS SUMMARY | 2025-02-08 13:20 | XMS_ITS | Encounter Summary ---
[id number] [address] [place] [address] Care Team Providers Care Loan Collector Name Role Phone Rogers Geller Primary Care Provider [phone] Encounter Details Date Type Department Care Team (Late st Contact Info) Description 05/18/2020 Telephone [facility] Physicians General Surgery-Trauma [address] [place] [phone] Rosemary Najera MA Social History Tobacco Use [...] any clubs o r organizations such as tenriism groups, unions, fraternal or athletic groups, or [...] Internal Medicine - Family Medicine [address] [place] [address] Rogers Geller DO [address] [place] [address] documented as of this encounter Goals Goal [...] documented as of this encounter Care Teams Loan Collector Relationship Specialty Start Date End Date Rogers Geller DO [address] [place] [address] PCP - General Internal Medicine 12/07/23 documented as of this encounter
--- OUTSIDE RECORDS SUMMARY | 2025-02-08 13:20 | XMS_ITS | Encounter Summary ---
Author Organization [facility] Address [id number] [address] [place] [address] Care Team Providers Care Mat Machine Tender Name Role Phone Rogers Geller Primary Care Provider [phone] Encounter Details Date Type Department Care Team (Late st Contact Info) Description 10/29/2020 Orders Only [facility] General Surgery-Trauma [address] [place] [address] Catrachita Steele, FRANCES Social History Tobacco Use [...] Recorded Do you need help finding a [employer] career center and/or a training program? No [...] Internal Medicine - Family Medicine [address] [place] [address] Rogers Geller, DO [address] [place] [address] documented as of this encounter Goals Goal [...] documented as of this encounter Care Teams Mat Machine Tender Relationship Specialty Start Date End Date Rogers Geller DO [address] [place] [address] PCP - General Internal Medicine 12/07/23 documented as of this encounter
--- NOTE | 2025-02-08 13:30 | ECG_ITS ---
[facility] Test Date: 2025-02-08 Pat Name: BEE STARR Department: Room: - Gender: Male Rug Hooker Hand: : 1965 Requested By: JYOTI CONWAY Order Number: [id number] Reading MD: JERSON RODRIGUES Measurements Intervals [place] Rate: 75 P: 55 SC: 176 QRS: 40 QRSD: 98 T: 39 QT: 378 QTc: 424 Interpretive Statements SINUS RHYTHM No previous ECG available for comparison Electronically Signed On 02-09-2025 9:53:19 EDT by JERSON RODRIGUES
[2025-02-08 13:49] LABS: Hematocrit 42.7 % (42.0-54.0); Hemoglobin 14.4 g/dL (14.0-18.0); Immature Granulocytes Abs Auto 0.01 10^3/uL (0.00-0.03); Immature Granulocytes Pct Auto 0.1 % (0.0-0.5); Lymphocytes Absolute Auto 2.7 10^3/uL (1.2-3.8); Mean Corpuscular HGB Conc 33.7 g/dL (29.9-35.2); Mean Corpuscular Hemoglobin 33.5 pg (25.9-34.0); Mean Corpuscular Volume 99.3 fL (80.0-94.0); Platelet Count 186 10^3/uL (150-450); Red Blood Count 4.30 10^6/uL (4.70-6.10); White Blood Count 8.6 10^3/uL (4.0-11.0)
[2025-02-08 14:02] LABS: Anion Gap 13.7; Blood Urea Nitrogen 26.0 mg/dL (7.0-18.0); Calcium 9.2 mg/dL (8.5-10.1); Carbon Dioxide 25.4 mmol/L (21.0-32.0); Chloride 109 mmol/L (98-107); Estimated GFR (African America >60 (>=60 mL/min/1.73m^2); Estimated GFR (Non-African Ame >60 (>=60 mL/min/1.73m^2); Glucose 102 mg/dL (74-106); Potassium 4.1 mmol/L (3.5-5.1); Sodium 144 mmol/L (136-145)
== END 2025-02-08 13:17 | disposition home or self-care (01) ==
LOC: CARD 13:17
PROVIDERS: PCP Internal Medicine
DX: Z01.812 Encounter for preprocedural laboratory examination (principal); Z01.818 Encounter for other preprocedural examination
CPT/HCPCS: 36415; 80048; 85025; 93005

== ENCOUNTER 2025-02-24 13:23 | Outpatient (RCR) | payer OTHER, SELFPAY | END 2025-05-17 15:14 | disposition home or self-care (01) | LOC: PT 13:23 | PROVIDERS: PCP Internal Medicine; Visit Provider Nurse Practitioner | DX: M47.816 Spondylosis without myelopathy or radiculopathy, lumbar region (principal); M25.551 Pain in right hip | CPT/HCPCS: 97110; 97113; 97162 ==

== ENCOUNTER 2025-05-11 12:26 | Outpatient (OUT) | payer OTHER, SELFPAY ==
--- OUTSIDE RECORDS SUMMARY | 2025-05-11 12:32 | XMS_ITS | CCD ---
Author Organization [facility] CliniSyil Care Team Providers Care Brick Stacker Name Role Phone ROXANE MITCHELL Admitting Unavailable ROXANE MITCHELL Attending [...] Care Provider UnavailDO Deanna Payne Attending Provider [phone] Cris Singh MD Primary Care Provider Cris Singh DO Primary Care Provider [phone] Cris Singh Primary Care Provider Kinza Caba DO Unavailable [phone] Dane CLARK, Lalitha Arango Attending Unavailable Dane CLARK, Angierius Arango Attending Unavailable Dane CLARK, Andrius Nba Attending Unavailable Dane CLARK, Lalitha Arango Attending Unavailable Cris Singh DO Primary Care Provider JUS WISDOM Admitting Unavailable JUS WISDOM Attending Unavailable CRIS SINGH Primary Care Unavailable NON STAFF Primary Care Unavailable Deanna Mejia Attending Unavailab Deanna Espinal Admitting Unavailab CRIS Perez Attending Unavailable CRIS SINGH Referring Unavailable CRIS SINGH Primary Care Unavailable CRIS SINGH Attending Unavailable YUHAS, CRIS L Referring Unavailable YUHAS, CRIS L Primary Care Unavailable YUHAS, CRIS L Attending Unavailable YUHAS, CRIS L Referring Unavailable YUHAS, CRIS L Primary Care Unavailable YUHAS, CRIS L Attending Unavailable YUHAS, CRIS L Referring Unavailable YUHAS, CRIS L Primary Care Unavailable YUHAS, CRIS L Attending Unavailable YUHAS, CRIS L Referring Unavailable YUHAS, CRIS L Primary Care Unavailable YUHAS, CRIS L Attending Unavailable YUHAS, CRIS L Referring Unavailable YUHAS, CRIS L Primary Care Unavailable YUHAS, CRIS L Attending Unavailable YUHAS, CRIS L Referring Unavailable YUHAS, CRIS L Primary Care Unavailable JUSTIN BOO Referring Unavailable YUHAS, CRIS PRASAD Primary Care Unavailable BUTT, BILAL LAURA Referring Unavailable YUHAS, CRIS PRASAD Primary Care Unavailable PACENTA, ERNIE Attending Unavailable BUTT, BILAL LAURA Referring Unavailable YUHAS, CRIS PRASAD Primary Care Unavailable PACENTA, ERNIE Referring Unavailable YUHAS, CRIS PRASAD Primary Care Unavailable BUTT, BILAL LAURA Attending Unavailable YUHAS, CRIS PRASAD Primary Care Unavailable LOIS MEDEIROS Referring Unavailable YUHAS, CRIS PRASAD Primary Care Unavailable PACENTA, ERNIE Attending Unavailable BIALASKIKINZA Referring Unavaila ble YUHAS, CRIS PRASAD Primary Care Unavailable PACENTA, ERNIE Referring Unavailable YUHAS, CRIS PRASAD Primary Care Unavailable BUTT, BILAL LAURA Attending Unavailable YUHAS, CRIS PRASAD Primary Care Unavailable PACENTA, ERNIE Referring Unavailable YUHAS, CRIS PRASAD Primary Care Unavailable BUTT, BILAL LAURA Attending Unavailable BUTT, BILAL LAURA Referring Unavailable YUHAS, CRIS PRASAD Primary Care Unavailable BUTT, BILAL LAURA Referring Unavailable YUHAS, CRIS PRASAD Primary Care Unavailable Reagan, DPAshley Simon Attending Unavailabl e Brown, DPM Rogelio Simon Admitting Unavailabl e ROGELIO CONWAY Attending Unavailable SAVITA ALCANTARA Attending Unavailable TIMMISPAOLA H Referring Unavailable TIMMIS, PAOLA H Attending Unavailable SHELBY TORRES Attending Unavailable YUHAS, CRIS L Referring Unavailable ROGELIO CONWAY Attending Unavailable ROGELIO CONWAY Attending Unavailable ROGELIO CONWAY Attending Unavailable ROGELIO CONWAY Referring Unavailable BROWN, ROGELIO A Attending Unavailable SAVITA ALCANTARA Attending Unavailable SAVITA ALCANTARA Attending Unavailable DEANNA MEJIA Attending Unavailable Medications Current Medications Medication Drug Class(es) Dates Sig (Normalized) Sig (Original) acetaminophen 500 mg oral tablet (20 sources) Start: 11-18-2024 End: 03-01-2025 take 2 tablets by mouth every eight hours acetaminophen (TYLENOL EXTRA STRENGTH) 500 mg tablet Indications: Cervical spondylosis with myelopathy , Acute post-operative pain Take 2 tablets by mouth every 8 hours. 180 tablet 2 12/01/2024 03/01/2025 Active Start: 12-29-2023 End: 04-28-2024 take 1 tablet [...] / HYDROcodone bitartrate 7.5 mg oral tablet (20 sources) Opioid Agonist Start: 07-31-2024 End: 12-13-2024 take 1 tablet by mouth twice daily as needed HYDROcodone-acetaminophen ([place]) 7.5-325 MG tablet Take 1 tablet by mouth 2 (two) times a day as needed 07/31/2024 Active Start: 07-31-2024 End: 12-14-2024 take 1 tablet by mouth once HYDROcodone-Acetaminophen (NORCO) 7.5-32 5 mg per tablet Take 1 tablet by mouth. 07/31/2024 12/14/2024 Discontinued acetaminophen 325 mg / oxyCODONE hydrochloride 5 mg oral tablet (3 sources) Opioid Agonist Start: 03-02-2025 End: 03-13-2025 take 1 tablet by mouth every eight hours for pain oxyCODONE-acetaminophen (Percocet) 5-325 MG tablet Indications: Pain Take 1 tablet by mouth every 8 (eight) hours if needed for severe pain for up to 5 days 15 tablet 03/08/2025 03/13/2025 Active amLODIPine 2.5 mg oral tablet (11 [...] tablet (20 sources) HMG-CoA Reductase Inhibitor Start: 12-13-2024 take 1 tablet by mouth in the morning atorvastatin (LIPITOR) 40 mg tablet Indications: hyperlipidemia Take 1 tablet (40 mg total) by mouth in the morning. Indications: excessive fat in the blood. 90 tablet 1 12/13/2024 Active Start: 12-29-2023 End: 12-13-2024 take 0.5 tablet by mouth in the morning atorvastatin (LIPITOR) 40 mg tablet Indications: hyperlipidemia Take 0.5 tablets (20 mg total) by mouth in the morning. Indications: excessive fat in the blood. 12/29/2023 12/13/2024 Discontinued (Reorder) Start: 05-08-2020 End: 12-29-2023 take 1 tablet by mouth in the morning atorvastatin (LIPITOR) 40 mg tablet Indications: hyperlipidemia Take 1 tablet (40 mg total) by mouth in the morning. Indications: excessive fat in the blood. 90 tablet 1 12/13/2024 Active 24 hr buPROPion hydrochloride 150 mg extended release oral tablet (20 sources) Aminoketone Start: 08-22-2024 End: 02-22-2025 take 1 tablet by mouth once daily in the morning buPROPion XL (WELLBUTRIN XL) 150 mg 24 hr tablet Indications: Tobacco abuse Take 1 tablet (150 mg total) by mouth every morning. 90 tablet 1 02/22/2025 Active Start: 08-22-2024 take 1 tablet by yumiko th every twenty-four hours buPROPion XL (WELLBUTRIN XL) 150 mg 24 hr tablet Take 150 mg by mouth. 08/22/2024 Active ferrous sulfate (10 sources) End: [...] 02/17/2024 Active lisinopril 10 mg oral tablet (18 sources) Angiotensin Converting Enzyme Inhibitor Start: 01-16-2025 lisinopril (ZESTRIL) 10 mg tablet 01/16/2025 Active Start: 02-23-2024 End: 06-01-2024 take 1 tablet by mouth in the morning lisinopril 10 MG tablet Take 10 mg by mouth in the morning. 02/23/2024 06/01/2024 Discontinued (Therapy completed) Start: 08-22-2020 End: 12-07-2023 take 10 mg by mouth once daily Lisinopril Active 10 MG PO Daily August 22, 2020 1:00am meloxicam 15 mg oral tablet (20 sources) Nonsteroidal Anti-inflammatory Drug Start: 12-29-2023 End: 05-04-2025 take 1 tablet by mouth in the morning, then take 1 tablet by mouth in the morning meloxicam (MOBIC) 15 mg tablet Indications: Localized osteoarthritis of lumbar spine Take 1 tablet (15 mg total) by mouth in the morning. TAKE 1 TABLET (15 MG TOTAL) BY MOUTH IN THE MORNING. 30 tablet 2 05/04/2025 Active methocarbamol 750 mg oral tablet (20 sources) Muscle Relaxant Start: 12-27-2024 End: 03-27-2025 take 1 tablet by mouth four times daily methocarbamol (ROBAXIN) 750 mg tablet Take 1 tablet by mouth four times daily. 120 tablet 2 12/27/2024 03/27/2025 Active Start: 11-18-2024 End: 12-18-2024 take 1 tablet by mouth four times daily in the evening methocarbamol (ROBAXIN) 750 mg tablet Take 1 tablet by mouth four times daily. 120 tablet 11/18/2024 2:57 PM EDT 11/18/2024 12/18/2024 Active naloxone hydrochloride 40 mg/ml nasal spray (14 sources) Opioid Antagonist Start: 07-14-2024 naloxone (Na rcan) 4 mg/0.1 mL nasal spray 07/14/2024 Active naloxone 4 mg/actuation nasal spray (NARCAN) (20 sources) Start: 07-14-2024 naloxone 4 mg/actuation nasal spray (NARCAN) 07/14/2024 Active Start: 07-14-2024 naloxone 4 mg/ actuation nasal spray (NARCAN) PLEASE SEE ATTACHED FOR DETAILED DIRECTIONS 07/14/2024 Active ondansetron 4 mg disintegrating oral tablet (2 sources) Serotonin-3 Receptor Antagonist Start: 11-18-2024 End: 11-25-2024 take 1 tablet by mouth every eight hours as needed ondansetron orally disintegrating (ZOFRAN ODT) 4 mg disintegrating tablet Take 1 tablet by mouth every 8 hours as needed for nausea/vomiting for up to 7 days. 20 tablet 11/18/2024 2:57 PM EDT 11/18/2024 11/25/2024 Active oxyCODONE hydrochloride 5 mg oral tablet (18 sources) Opioid Agonist Start: 12-01-2024 End: 01-03-2025 take 1 tablet by mouth every six hours as needed for pain oxyCODONE (ROXICODONE) 5 mg immediate release tablet Indications: 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 TAKE 1 TABLET BY MOUTH EVERY 6 HOURS NEEDED FOR PAIN FOR UP TO 7 DAYS. FOR PAIN. 12/01/2024 Active Start: 12-01-2024 End: 01-27-2025 take 1 tablet by mouth every eight hours as needed for pain oxyCODONE IR (ROXICODONE) 5 mg immediate release tablet Indications: Post-operative pain Take 1 tablet by mouth every 8 hours as needed for pain for up to 7 days. 21 tablet 01/20/2025 01/27/2025 Active Start: 11-18-2024 End: 11-28-2024 take 1 tablet by mouth every six hours as needed for pain oxyCODONE IR (ROXICODONE) 5 mg immediate release tablet Indications: Cervical spondylosis with myelopathy Take 1 tablet by mouth every 6 hours as needed for pain for up to 10 days. for pain. 40 tablet 11/18/2024 2:57 PM EDT 11/18/2024 11/28/2024 Active polyethylene glycol 3350 27493 mg powder for oral solution (5 sources) Osmotic Laxative Start: 11-18-2024 End: 12-18-2024 polyethylene glycol 3350 17 gram/dose powder Take 17 g by mouth once daily. Dissolve dose in 4 - 8 ounces of liquid and take as directed. 476 g 11/18/2024 2:57 PM EDT 11/18/2024 12/18/2024 Active pregabalin 200 mg oral capsule (20 sources) Start: 12-27-2024 pregabalin (LY MIKEL) 200 mg capsule Take 1 capsule (200 mg total) by mouth. 12/27/2024 Active Start: 05-16-2024 End: 12-13-2024 pregabalin (LYRICA) 50 mg ca psule Has not started it. 05/16/2024 12/13/2024 Discontinued (Dose adjustment) End: 01-04-2025 take 1 capsule by mouth in the morning, then take 1 capsule by mouth in the evening, then take 1 capsule by mouth at bedtime pregabalin (Lyrica) 75 MG capsule Take 75 mg by mouth in the morning and 75 mg in the evening and 75 mg before bedtime. Active thiamine 100 mg oral tablet (2 sources) Start: 08-22-2020 End: 12-07-2023 take 100 mg by mouth twice daily Thiamine Hcl (Vitamin B1) Active 100 MG PO Twice daily 60 August 22, 2020 1:00am topiramate 50 mg oral tablet (20 sources) Start: 03-08-2024 End: 02-22-2025 take 1 tablet by mouth in the evening topiramate (TOPAMAX) 50 mg tablet Indications: Intractable chronic post-traumatic headache Take 1 tablet (50 mg total) by mouth in the evening. 90 tablet 1 02/22/2025 Active Start: 12-24-2022 End: 12-07-2023 take 1 tablet by mouth in the morning, then take 1 tablet by mouth at bedtime topiramate (TOPAMAX) 25 mg tablet Take 1 tablet (25 mg total) by mouth in the morning and 1 tablet (25 mg total) before bedtime. 60 tablet 2 12/24/2022 12/07/2023 Discontinued (Therapy completed) 24 hr venlafaxine 37.5 mg extended release oral capsule (20 sources) Serotonin and Norepinephrine Reuptake Inhibitor Start: 08-09-2024 End: 03-30-2025 take 1 capsule by mouth every twenty-four hours venlafaxine ER (EFFEXOR XR) 37.5 mg 24 hr capsule Take 37.5 mg by mouth. 08/09/2024 Active vitamin b12 1 mg oral tablet (20 sources) Vitamin B12 Start: 02-19-2025 cyanocobalamin 1000 MCG tablet Take 1 tablet (1,000 mcg total) by mouth. TAKE 1 TABLET (1,000 MCG TOTAL) BY MOUTH IN THE MORNING 02/19/2025 Active Start: 12-08-2023 End: 12-13-2024 take 1 tablet by mouth in the morning cyanocobalamin (Vitamin B-12) 1000 MCG tablet Take 1,000 mcg by mouth in the morning. 12/08/2023 Active Completed/Discontinued Medications Medication Drug Class(es) Dates [...] 30 patch 07/12/2022 12/07/2023 Discontinued (Therapy completed) uvixszhi-srxi-ZW-ca lcium &mins (THERAGRAN-M) 9 mg iron-400 mcg tablet (11 sources) End: 05-19-2024 ujahothz-bhom-LF- calcium &mins (THERAGRAN-M) 9 mg iron-400 mcg tablet Take 1 tablet by mouth in the morning. 05/19/2024 Discontinued (Therapy completed) qxvgnqli-oxbh-KP -calcium &mins (THERAGRAN-M) 9 mg iron-400 mcg tablet Take 1 tablet by mouth in the morning. Active naloxone (NARCAN) 4 mg/actua tion spray,non-aerosol nasal spray (7 sources) Start: 07-14-2024 End: 01-04-2025 naloxone (NARCAN) 4 mg/actuation spray,non-aerosol nasal spray Indications: 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 07/14/2024 01/04/2025 Discontinued (Patient Stopped On Own) Start: 07-14-2024 naloxone (NARC AN) 4 mg/actuation spray,non-aerosol nasal spray Indications: 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 07/14/2024 Active naloxone (NARCAN ) 4 mg/actuation spray,non-aerosol nasal spray Administer 1 spray (4 mg total) into alternating nostrils as needed for opioid reversal. Active QUEtiapine 100 mg oral tablet (1 [...] pain; Translations: [Unspecified abdominal pain] 07-15-2023 Episodic Acquired foot deformities (7 sources) Hammer toe; Translations: [Other hammer toe(s) (acquired), left foot] Onset: 01-04-2025 01-04-2025 Chronic Acquired foot deformities (10 sources) Acquired deformity of toe of left foot; Translations: [Acquired deformities of toe(s), unspecified, left foot] 01-26-2025 Episodic Asthma (1 source) Unspecified asthma, uncomplicated; Translations: [UNSPECIFIED ASTHMA UNCOMPLICATED] Onset: 12-09-2018 Chronic Cardiac dysrhythmias (2 sources) Tachycardia, unspecified; Translations: [Tachycardia] Onset: 12-07-2023 12-07-2023 Episodic Cataract (3 sources) Bilateral cataracts; Translations: [Unspecified cataract] Onset: 03-08-2024 12-29-2023 Chronic Conditions associated with dizziness or vertigo (5 sources) Meniere's disease; Translations: [Meniere's disease, unspecified ear] Onset: 03-08-2024 05-25-2024 Chronic Conditions associated with dizziness or vertigo (6 sources) Vertigo; Translations: [Dizziness and giddiness] 05-17-2024 Episodic Deficiency and other anemia (6 sources) Anemia; Translations: [Anemia, unspecified] 10-11-2024 Episodic Deficiency and other anemia (1 source) Anemia, unspecified; Translations: [Anemia following surgery] Onset: 02-21-2025 Episodic Disorders of lipid metabolism (20 sources) [...] Onset: 03-08-2024 08-22-2024 Chronic Headache; including migraine (14 sources) Intractable chronic headache following trauma; Translations: [Chronic post-traumatic headache, intractable] Onset: 04-28-2024 06-13-2024 Chronic Headache; including migraine (1 source) Headache; including migraine Onset: 04-28-2024 Hepatitis (1 source) Nonalcoholic steatohepatitis (VIEIRA); Translations: [Nonalcoholic steatohepatitis (VIEIRA)] Onset: 12-22-2023 Chronic Hyperplasia of prostate (1 source) Benign prostatic hyperplasia; Translations: [Benign prostatic hyperplasia with lower urinary tract symptoms] 12-07-2023 Chronic Immunizations and screening for infectious disease (7 sources) Suspected carrier of methicillin resistant staphylococcus aureus; Translations: [Carrier or suspected carrier of Methicillin resistant Staphylococcus aureus] Onset: 02-21-2025 10-11-2024 Episodic Late effects of cerebrovascular disease (3 sources) Acquired ataxia; 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] Onset: 12-13-2024 04-28-2024 Chronic Mood disorders (20 sources) Depressive disorder; Translations: [Depression] Onset: 04-29-2024 07-15-2023 Chronic Mycoses (3 sources) Pain in toe; Translations: [Tinea unguium] 01-26-2025 Episodic Other circulatory disease (1 source) Orthostatic hypotension; Translations: [Orthostatic hypotension] Onset: 12-07-2023 Episodic Other ear and sense organ disorders [...] of gait and mobility] 06-01-2024 Episodic Other nervous system disorders (2 sources) Acute postoperative pain; Translations: [Other acute postprocedural pain] 12-02-2024 Episodic Other nervous system disorders (2 sources) Postoperative pain ; Translations: [Other acute postprocedural pain] 12-27-2024 Episodic Other non-traumatic joint disorders (6 sources) Chronic pain of right upper limb; Translations: [Pain in right shoulder] 05-17-2024 Episodic Residual codes; unclassified (1 source) Alcoholism; Translations: [Alcohol use disorder] 07-15-2023 Episodic Residual codes; unclassified (5 sources) Tobacco user; Translations: [Tobacco use] 08-22-2024 Episodic Residual codes; unclassified (1 source) History of cervical laminectomy; Translations: [Other specified postprocedural states] 12-13-2024 Episodic Residual codes; unclassified (1 source) Other specified postprocedural states; Translations: [Other specified postprocedural states] Onset: 12-13-2024 Episodic Spondylosis; intervertebral disc disorders; other back problems (20 sources) Degeneration of lumbosacral intervertebral disc; Translations: [Degeneration of intervertebral disc of lumbosacral region with discogenic back pain and lower extremity pain] Onset: 04-28-2024 08-09-2024 Chronic Spondylosis; intervertebral disc disorders; other back problems (20 sources) Cervical radiculopathy; Translations: [Radiculopathy, cervical region] Onset: 08-25-2024 05-10-2024 Episodic Substance-related disorders (20 sources) Nicotine dependence, cigarettes, uncomplicated; Translations: [Smoker] Onset: 12-09-2018 03-08-2024 Chronic Suicide and intentional self-inflicted injury (1 source) Suicidal thoughts; Translations: [Suicidal ideations] 07-15-2023 Episodic Unclassified (2 sources) Chronic pain of right upper limb 05-17-2024 Past or Other Problems Problem Classification Problem Date Documented Date Episodic/Chronic Acute bronchitis (1 source) Acute bronchitis, unspecified; Translations: [ACUTE BRONCHITIS UNSPECIFIED] Onset: Episodic Acute posthemorrhagic anemia (20 sources) Acute posthemorrhagic anemia; Translations: [Acute posthemorrhagic anemia] Onset: 03-08-2024 Episodic Coagulation and hemorrhagic disorders (20 sources) Purpuric rash; 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] Onset: 3 03-08-2024 Episodic Diabetes mellitus without complication (20 sources) Hyperglycemia; Translations: [Hyperglycemia, unspecified] Onset: 3 03-08-2024 Episodic E Codes: Fall (20 sources) Fall; Translations: [Unspecified fall, initial encounter] Onset: 2 03-08-2024 Episodic Fluid and electrolyte disorders (20 sources) Hypokalemia; Translations: [Hypokalemia] Onset: 3 03-08-2024 Episodic Genitourinary symptoms and ill-defined conditions (20 sources) Retention of urine; Translations: [Retention of urine, unspecified] Onset: 2 03-08-2024 Episodic Headache; including migraine (5 sources) Chronic daily headache; Translations: [Chronic daily headache] Onset: 4 08-09-2024 Episodic Intracranial injury (20 sources) Unspecified intracranial injury 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 with patient surviving, initial encounter; Translations: [Traumatic brain injury] Onset: 4 03-08-2024 Episodic Mood disorders (20 sources) Mood disorders Onset: 4 Resolved: 5 05-19-2024 Nutritional deficiencies (9 sources) Deficiency of other specified B group vitamins; Translations: [Cobalamin deficiency] Onset: 4 12-07-2023 Episodic Other circulatory disease (1 source) Orthostatic hypotension; Translations: [Orthostatic hypotension] 12-07-2023 Episodic Other connective tissue disease (14 sources) Other symptoms and signs involving the musculoskeletal system; Translations: [Other musculoskeletal symptoms referable to limbs] Onset: 4 05-10-2024 Episodic Other fractures (20 sources) Closed fracture of multiple left ribs; Translations: [Multiple fractures of ribs, left side, initial encounter for closed fracture] Onset: 2 03-08-2024 Episodic Other gastrointestinal disorders (20 sources) Oropharyngeal dysphagia; Translations: [Dysphagia, oropharyngeal phase] Onset: 2 03-08-2024 Episodic Other lower respiratory disease (3 sources) Cough; Translations: [COUGH] Onset: 9 Episodic Other nervous system disorders (1 source) Other acute postprocedural pain; Translations: [Acute post-operative pain] Onset: 5 Episodic Other nutritional; endocrine; and metabolic disorders (20 sources) Overweight; Translations: [Overweight] Onset: 3 03-08-2024 Episodic Other upper respiratory infections (1 source) Acute upper respiratory infection, unspecified; Translations: [ACUTE UP RESPIRATORY INFECTION UNS] Onset: 9 Episodic Residual codes; unclassified (20 sources) History of closure of colostomy; Translations: [Other specified postprocedural states] Onset: 1 03-08-2024 Episodic Residual codes; unclassified (1 source) Tobacco use; Translations: [Tobacco use] Onset: 5 Episodic Unclassified (4 sources) Weakness of right upper extremity 05-17-2024 Unclassified (4 sources) Patient encounter status 10-11-2024 Unclassified (1 source) Preprocedural examination done 10-25-2024 Results Test Name Value Interpretation Reference Range Facility Surgical Pathology Reporton 03-14-2025 [place] [address]- Surgical Pathology Report Collected Date/Time: 03/08/2025 09:30 EDT Pathologist: Juan CALRK PhD, Cachorro Roberts Date/Time: 03/09/2025 07:36 EDT Reagan CONTRERAS, Rogelio Conway DPM, Rogelio Soriano Surgical Pathology Report - 03/14/2025 13:41 EDT - Auth (Verified) Final Diagnosis LEFT SECOND TOE DEFORMITY, AMPUTATION: - BENIGN SKIN WITH REACTIVE HYPERKERATOSIS AND ACANTHOSIS. - BENEATH OSTEOCARTILAGE WITH FOCAL REMODELING CHANGES AND IRREGULAR CONTOUR. (Electronic Signature) Cachorro Martinez MD PhD 03/14/2025 13:41 Clinical Information x Pre-Op Diagnosis: Acquired deformity, left second toe Procedure: Left second toe amputation Post-Op Diagnosis: Acquired deformity, left second toe Specimen(s) Received Left 2nd toe amputation Gross Description Received in formalin, labeled with patient name, number and left second toe amputation, toe with attached nail measuring 5.3 x 2 x 1.8 cm. Approximately 1.3 cm from the nail bed, the joint area has a light pink raised irregular appearance measuring 1.2 x 1 cm. The remainder of the skin is midd[place]-pink, wrinkled and unremarkable. Literacy Specialist portion is submitted in a total of three cassettes. Cassette 1 is the skin margins and skin and soft tissue, 2 and 3 are bone from raised joint area after decalcification. (DC) DC:AARTI Microscopic Description Microscopic examination performed unless gross only specified. Quality was accessed and acceptable. This report was transcribed using voice recognition technology and might contain unintended computerized medicaid service coordinator errors. Normal [facility] Comment on above: Performed By: #### [id number] #### [facility] [address] [place] [address] OVon 02-21-2025 [facility] Office Visit ([facility] ) BEE HARRIS ([id number]) 1965 M Date Time Provider Department 02/21/25 3:00 PM JUS WISDOM [facility] During your visit today, we recorded the following information about you: Pulse Blood pressure 68/minute 157/94 Jus Wisdom MD 02/21/2025 3:03 PM Signed SPINE SURGERY FOLLOW UP This is an in-person visit. SERVICE DATE: 02/21/2025 SURGERY DATE: 11/16/2024 SURGERY: C3-C5 laminoplasty INDICATIONS: balance issues and fine motor tasks issues. Cervical MRI revealed severe stenosis from C3-C5 Bee Castilloley is seen for 3 month post operative follow up. Ar reports that he is doing okay. Continues to report his chronic neck pain. He understood that this was a possibility given his significant degenerative changes on his preoperative imaging. But he desire to retain as much motion as possible. He is on narcotics back with his home provider ANTIPLATELET OR ANTICOAGULATION STATUS: No Patient Entered [...] severe depression 20-27 Severe depression PHYSICAL EXAM: BP 157/94 Pulse 68 GENERAL APPEARANCE: Well nourished, well developed, and no apparent distress. NEURO PSYCH: Patient oriented to person, place, and time. Mood pleasant. Benign affect. MUSCULOSKELETAL VISUAL INSPECTION CERVICAL: WNL THORACIC: WNL LUMBAR: WNL MOTOR: 5/5 in all muscle groups. SENSORY: Normal sensory exam GAIT: Normal. REFLEXES: +2 to bilateral U/L extremities. DATA REVIEW [facility] records independently reviewed Upright x-rays reviewed demonstrating post laminoplasty changes. No evidence of head drop ASSESSMENT/PLAN (M47.12) Cervical spondylosis with myelopathy (primary encounter diagnosis) Bee Harris will continue with medical management of his/her condition. 1. No restrictions as he is beyond 12 weeks post laminoplasty. He will participate in a home exercise program. He will see us back in 3 months time which is 6 months postoperatively with previsit x-rays. All questions were answered thank for the counter agreement plan 2. Follow up: Following above Imaging Ordered: XR cervical The majority of the visit was spent counseling and/or coordinating care for the patient. The patient was counseled regarding cervical myelopathy. Total face to face time was 15 minutes. SIGNATURE: Jus Wisdom MD PATIENT NAME: Bee Harris DATE: February 21, 2025 TIME: 3:01 PM PAGER: Allergies As of Date: 02/21/2025 (No Known Allergies) Date Reviewed: 02/21/2025 Reviewed by: Eloise Edgar OCCA - Fully Assessed Reason for Visit: Follow Up [171] Primary Visit Diagnosis:Cervical spondylosis with myelopathy [M47.12] Order(s):XR CERV GENERAL 2V AP/LAT [[id number]] Order #: [id number] FUTURE Prescriptions as of 02/21/2025 - HYDROcodone-Acetamino phen (NORCO) 7.5-325 mg per tablet TAKE 1 TABLET BY MOUTH TWICE A DAY NEEDED FOR PAIN MUST LAST 30 DAYS FOR MODERATE TO SEVER PAIN - pregablin (LYRICA) 200 mg capsule Take 200 mg by mouth three times a day. - lisinopril (ZESTRIL) 10 mg tablet - methocarbamol (ROBAXIN) 750 mg tablet Take 1 tablet by mouth four times daily. - acetaminophen (TYLENOL EXTRA STRENGTH) 500 mg tablet Take 2 tablets by mouth every 8 hours. - atorvastatin (LIPITOR) 40 mg tablet Take 40 mg by mouth once daily. - cyanocobalamin (VITAMIN B-12) 1,000 mcg tab take 1 tablet (1,000 mcg total) by mouth in the morning - latanoprost (XALATAN) 0.005 % ophthalmic solution INSTILL ONE DROP IN EACH EYE BEFORE BED - meloxicam (MOBIC) 15 mg tablet Take 15 mg by mouth. - pregabalin (LYRICA) 75 mg capsule Take 75 mg by mouth. - venlafaxine ER (EFFEXOR XR) 37.5 mg 24 hr capsule Take 37.5 mg by mouth. - buPROPion XL (WELLBUTRIN XL) 150 mg 24 hr tablet Take 150 mg by mouth. - naloxone 4 mg/actuation nasal spray (NARCAN) - topiramate (TOPAMAX) 50 mg tablet Take 50 mg by mouth. Problem List As Of Date 02/21/2025 Noted Resolved Acute blood loss anemia [D62] 06/29/2022 Current smoker [F17.200] 08/21/2022 Depression [F32.A] 04/29/2024 Diverticulitis of colon with perforation [K57.2*08/21/2022 Essential hypertension [I10] 08/21/2022 History of colostomy reversal [Z98.890] 10/16/2020 Hyperlipidemia [E78.5] 08/21/2022 Multiple fractures of ribs, left side, initi (more content not included)... Normal [facility] XR CERVICAL 2V AP/LATon 02-01 XR CERVICAL 2V AP/LAT * * *Final Report* * * DATE OF EXAM: Feb 21 2025 2:04PM M2X 5308 - XR CERVICAL 2V AP/LAT / PROCEDURE REASON: multiple diagnoses * * * * Physician Interpretation * * * * EXAMINATION: XR CERVICAL 2V AP/LAT HISTORY: Cervical Sx Follow Up Cervical spinal stenosis Cervical spondylosis with myelopathy Pre-op testing 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). TECHNIQUE: XR CERVICAL 2V AP/LAT Laterality: NOT APPLICABLE Number of different views (projections): 2 M: XB_1 COMPARISON: 11/18/2024 RESULT: Counting reference: Craniocervical junction. Anatomic Variants: None. Laminoplasty is at C3-C5 on the right appear intact. Alignment appears unchanged. Normal vertebral body heights. Moderate multilevel degenerative disc changes throughout. No acute fracture or dislocation. There are no bony erosions. IMPRESSION: Postoperative and degenerative changes. Chemistry Technician: PSCB Transcribe Date/Time: Feb 21 2025 2:47P Dictated by : ANTON VIDALES MD This examination was interpreted and the report reviewed and electronically signed by: ANTON VIDALES MD on Feb 21 2025 2:48PM EST [id number] Normal [facility] XR Cervical spine AP and Lat [facility] 02-21-2025 IMPRESSION: Postoperative and degenerative changes. Chemistry Technician: PSCB Transcribe Date/Time: Feb 21 2025 2:47P Dictated by : ANTON VIDALES MD This examination was interpreted and the report reviewed and electronically signed by: ANTON VIDALES MD on Feb 21 2025 2:48PM EST DIVISION OF RADIOLOGY * * *Final Report* * * DATE OF EXAM: Feb 21 2025 2:04PM M2X 5308 - XR CERVICAL 2V AP/LAT / PROCEDURE REASON: multiple diagnoses * * * * Physician Interpretation * * * * EXAMINATION: XR CERVICAL 2V AP/LAT HISTORY: Cervical Sx Follow Up Cervical spinal stenosis Cervical spondylosis with myelopathy Pre-op testing 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). TECHNIQUE: XR CERVICAL 2V AP/LAT Laterality: NOT APPLICABLE Number of different views (projections): 2 M: XB_1 COMPARISON: 11/18/2024 RESULT: Counting reference: Craniocervical junction. Anatomic Variants: None. Laminoplasty is at C3-C5 on the right appear intact. Alignment appears unchanged. Normal vertebral body heights. Moderate multilevel degenerative disc changes throughout. No acute fracture or dislocation. There are no bony erosions. DIVISION OF RADIOLOGY Provider, Elias Maria - 02/21/2025 * * *Final Report* * * DATE OF EXAM: Feb 21 2025 2:04PM M2X 5308 - XR CERVICAL 2V AP/LAT / PROCEDURE REASON: multiple diagnoses * * * * Physician Interpretation * * * * EXAMINATION: XR CERVICAL 2V AP/LAT HISTORY: Cervical Sx Follow Up Cervical spinal stenosis Cervical spondylosis with myelopathy Pre-op testing 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). TECHNIQUE: XR CERVICAL 2V AP/LAT Laterality: NOT APPLICABLE Number of different views (projections): 2 M: XB_1 COMPARISON: 11/18/2024 RESULT: Counting reference: Craniocervical junction. Anatomic Variants: None. Laminoplasty is at C3-C5 on the right appear intact. Alignment appears unchanged. Normal vertebral body heights. Moderate multilevel degenerative disc changes throughout. No acute fracture or dislocation. There are no bony erosions. IMPRESSION IMPRESSION: Postoperative and degenerative changes. Chemistry Technician: PSCB Transcribe Date/Time: Feb 21 2025 2:47P Dictated by : ANTON VIDALES MD This examination was interpreted and the report reviewed and electronically signed by: ANTON VIDALES MD on Feb 21 2025 2:48PM EST [facility] Radiology Study observation (narrative) [facility] XR Cervical spine AP and Lat eralOrdered By: [facility] Provider on 02-21-2025 [facility] BEE HARRIS ([id number]) 1965 M Date Time Provider Department 02/13/25 JUS WISDOM [facility] During your visit today, we recorded the following information about you: Eloise Edgar OCCA 02/13/2025 11:39 AM Signed Attempted to call pt at number provided in chart, lv letting pt know he needs an xray prior to his appointment with Dr. Wisdom on 02/21. Nothing further. Víctor Puente 02/13/2025 2:32 PM Signed Scheduled. Allergies As of Date: 02/13/2025 (No Known Allergies) Date Reviewed: 12/01/2024 Reviewed by: Shila Garcia MA - Fully Assessed Reason for Visit: Appointment info [Other] Prescriptions as of 02/13/2025 - pregablin (LYRICA) 200 mg capsule Take 200 mg by mouth three times a day. - lisinopril (ZESTRIL) 10 mg tablet - methocarbamol (ROBAXIN) 750 mg tablet Take 1 tablet by mouth four times daily. - acetaminophen (TYLENOL EXTRA STRENGTH) 500 mg tablet Take 2 tablets by mouth every 8 hours. - atorvastatin (LIPITOR) 40 mg tablet Take 40 mg by mouth once daily. - cyanocobalamin (VITAMIN B-12) 1,000 mcg tab take 1 tablet (1,000 mcg total) by mouth in the morning - latanoprost (XALATAN) 0.005 % ophthalmic solution INSTILL ONE DROP IN EACH EYE BEFORE BED - meloxicam (MOBIC) 15 mg tablet Take 15 mg by mouth. - pregabalin (LYRICA) 75 mg capsule Take 75 mg by mouth. - venlafaxine ER (EFFEXOR XR) 37.5 mg 24 hr capsule Take 37.5 mg by mouth. - buPROPion XL (WELLBUTRIN XL) 150 mg 24 hr tablet Take 150 mg by mouth. - naloxone 4 mg/actuation nasal spray (NARCAN) - topiramate (TOPAMAX) 50 mg tablet Take 50 mg by mouth. Problem List As Of Date 02/13/2025 Noted Resolved Acute blood loss anemia [D62] 06/29/2022 Current smoker [F17.200] 08/21/2022 Depression [F32.A] 04/29/2024 Diverticulitis of colon with perforation [K57.2*08/21/2022 Essential hypertension [I10] 08/21/2022 History of colostomy reversal [Z98.890] 10/16/2020 Hyperlipidemia [E78.5] 08/21/2022 Multiple fractures of ribs, left side, initial *06/29/2022 Oropharyngeal dysphagia [R13.12] 06/29/2022 Perforated diverticulum [K57.80] 04/23/2020 Traumatic brain injury (HCC) [S06.9XAA] 02/15/2024 Cervical spondylosis with myelopathy [M47.12] 11/16/2024 Encounter Status:Closed by ELOISE EDGAR on 02/13/25 Normal [facility] 02-06-2025 Refill [id number] Bee Harris 1965 M Date Provider Department Center 02/06/2025 FILIBERTO ANDREA [facility] INT MED Comprehensiv Family History Problem Relation Age of Onset Diabetes Mother Lung cancer Mother Kidney failure Mother Heart disease Father Other Father Family Status - Relation Status Age at Mother Father Reason for Visit and Comments: Med Refill [[id number]] Normal [facility] XR Foot - left 3 [facility] Imaging Result: 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 He is scheduled for 03/28/2025. There was nothing sooner. On wait list. He needs 2 days notice to get ride scheduled. Can we get him in sooner due to being post op? Please advise. [phone] Allergies As of Date: 01/24/2025 (No Known Allergies) Date Reviewed: 12/01/2024 Reviewed by: Shila Garcia MA - Fully Assessed Prescriptions as of 03/01/2025 - HYDROcodone-Acetamino phen (NORCO) 7.5-325 mg per tablet TAKE 1 TABLET BY MOUTH TWICE A DAY NEEDED FOR PAIN MUST LAST 30 DAYS FOR MODERATE TO SEVER PAIN - pregablin (LYRICA) 200 mg capsule Take 200 mg by mouth three times a day. - lisinopril (ZESTRIL) 10 mg tablet - methocarbamol (ROBAXIN) 750 mg tablet Take 1 tablet by mouth four times daily. - acetaminophen (TYLENOL EXTRA STRENGTH) 500 mg tablet Take 2 tablets by mouth every 8 hours. - atorvastatin (LIPITOR) 40 mg tablet Take 40 mg by mouth once daily. - cyanocobalamin (VITAMIN B-12) 1,000 mcg tab take 1 tablet (1,000 mcg total) by mouth in the morning - latanoprost (XALATAN) 0.005 % ophthalmic solution INSTILL ONE DROP IN EACH EYE BEFORE BED - meloxicam (MOBIC) 15 mg tablet Take 15 mg by mouth. - pregabalin (LYRICA) 75 mg capsule Take 75 mg by mouth. - venlafaxine ER (EFFEXOR XR) 37.5 mg 24 hr capsule Take 37.5 mg by mouth. - buPROPion XL (WELLBUTRIN XL) 150 mg 24 hr tablet Take 150 mg by mouth. - naloxone 4 mg/actuation nasal spray (NARCAN) - topiramate (TOPAMAX) 50 mg tablet Take 50 mg by mouth. Problem List As Of Date 01/24/2025 Noted Resolved Acute blood loss anemia [D62] 06/29/2022 Current smoker [F17.200] 08/21/2022 Depression [F32.A] 04/29/2024 Diverticulitis of colon with perforation [K57.2*08/21/2022 Essential hypertension [I10] 08/21/2022 History of colostomy reversal [Z98.890] 10/16/2020 Hyperlipidemia [E78.5] 08/21/2022 Multiple fractures of ribs, left side, initial *06/29/2022 Oropharyngeal dysphagia [R13.12] 06/29/2022 Perforated diverticulum [K57.80] 04/23/2020 Traumatic brain injury (HCC) [S06.9XAA] 02/15/2024 Cervical spondylosis with myelopathy [M47.12] 11/16/2024 Encounter Status:Closed by VÍCTOR PUENTE on 03/01/25 Normal [facility] 01-13-2025 Refill [id number] Bee Harris 1965 M Date Provider Department Center 01/13/2025 FILIBERTO ANDREA [facility] MED Comprehensiv Family History Problem Relation Age of Onset Diabetes Mother Lung cancer Mother Kidney failure Mother Heart disease Father Other Father Family Status - Relation Status Age at Mother Father Reason for Visit and Comments: Med Refill [[id number]] Normal [facility] CNPNon 12-14-2024 [facility] Telephone (NIQ) BEE HARRIS ([id number]) 1965 M Date Time Provider Department 12/14/24 JSU WISDOM During your visit today, we recorded the following information about you: Rukhsana Rosenthal 12/14/2024 9:37 AM Signed Call received for Jus Wisdom MD regarding Bee Harris. Caller: self Patient Identified by Name and : Bee Harris 1965 Reason for Call: General - Pt needs to speak to Ernie Rankin about prescription. No other information provided. Is there any additional information the provider should know? No Last Office Visit: 11/30/2024 Next scheduled appointment: 01/10/2025 Best number to reach caller: [phone] Best time to reach caller: any Is it OK to leave a detailed voice message? Yes Devaughn Toussaint, RN 12/14/2024 9:59 AM Signed Neuro SPINE CARE COORDINATION QUICK NOTE ASH 12-01-24 with Ernie Rankin [employer] WORKER SP C3-5 laminoplasty on 11-16-24 Pt reports some improvement with balance. Pt will need refill of Roxicodone. Pt reports taking one BID and has been out for the past day. Preferred pharmacy- [facility] Ernie Rankin APRN.CNP 12/14/2024 10:08 AM Signed Patient requesting pain rx refill. PDMP verified. Refill appropriate. Ernie Rankin APRN.Devaughn Collado RN 12/14/2024 1:08 PM Signed Call to the pt PM was seen just prior to the surgery. PM placed [facility] on hold. They will see him at the 6 week adilson and take over medications. Update to the team Allergies As of Date: 12/14/2024 (No Known Allergies) Date Reviewed: 12/01/2024 Reviewed by: Shila Garcia MA - Fully Assessed Reason for Visit: Medication Problem [65] Visit Diagnosis:Cervical spondylosis with myelopathy [M47.12] Order(s):oxyCODONE IR (ROXICODONE) 5 mg immediate release tabletTake 1 tablet by mouth every 6 hours as needed for pain for up to 7 days. for pain.Disp: 28 tabletRfl: 0 Prescriptions as of 12/14/2024 - oxyCODONE IR (ROXICODONE) 5 mg immediate release tablet Take 1 tablet by mouth every 6 hours as needed for pain for up to 7 days. for pain. - acetaminophen (TYLENOL EXTRA STRENGTH) 500 mg tablet Take 2 tablets by mouth every 8 hours. - methocarbamol (ROBAXIN) 750 mg tablet Take 1 tablet by mouth four times daily. - polyethylene glycol 3350 17 gram/dose powder Take 17 g by mouth once daily. Dissolve dose in 4 - 8 ounces of liquid and take as directed. - atorvastatin (LIPITOR) 40 mg tablet Take 40 mg by mouth once daily. - cyanocobalamin (VITAMIN B-12) 1,000 mcg tab take 1 tablet (1,000 mcg total) by mouth in the morning - latanoprost (XALATAN) 0.005 % ophthalmic solution INSTILL ONE DROP IN EACH EYE BEFORE BED - meloxicam (MOBIC) 15 mg tablet Take 15 mg by mouth. - pregabalin (LYRICA) 75 mg capsule Take 75 mg by mouth. - venlafaxine ER (EFFEXOR XR) 37.5 mg 24 hr capsule Take 37.5 mg by mouth. - buPROPion XL (WELLBUTRIN XL) 150 mg 24 hr tablet Take 150 mg by mouth. - naloxone 4 mg/actuation nasal spray (NARCAN) - topiramate (TOPAMAX) 50 mg tablet Take 50 mg by mouth. Problem List As Of Date 12/14/2024 Noted Resolved Acute blood loss anemia [D62] 06/29/2022 Current smoker [F17.200] 08/21/2022 Depression [F32.A] 04/29/2024 Diverticulitis of colon with perforation [K57.2*08/21/2022 Essential hypertension [I10] 08/21/2022 History of colostomy reversal [Z98.890] 10/16/2020 Hyperlipidemia [E78.5] 08/21/2022 Multiple fractures of ribs, left side, initial *06/29/2022 Oropharyngeal dysphagia [R13.12] 06/29/2022 Perforated diverticulum [K57.80] 04/23/2020 Traumatic brain injury (HCC) [S06.9XAA] 02/15/2024 Cervical spondylosis with myelopathy [M47.12] 11/16/2024 Prescriptions ordered this encounter Disp Refills Start End OXYCODONE 5 MG TABLET 28 t* 0 12/14/2024 12/21/2024 Route: ORAL Sig: Take 1 tablet by mouth every 6 hours as needed for pain for up to 7 days. for pain. Medications Discontinued During This Encounter Prescriptions - HYDROcodone-Acetamino phen (NORCO) 7.5-325 mg per tablet (Discontinued) Take 1 tablet by mouth. Encounter Status:Closed by ERNIE RANKIN on 12/14/24 Normal [facility] METABOLIC PANE Alejandro 12-13-2024 Albumin [Mass/Vol] 4.6 g/dL Normal 3.2-5.3 [facility] Comment on above: Performed By: #### C MP #### [facility] ([facility]) [address] [place] [address] VIR ALP [Catalytic activity/Vol] 63 U/L Normal 39-130 [facility] Comment on above: Performed By: #### C MP #### [facility] ([facility]) [address] [place] [address] VIR ALT [Catalytic activity/Vol] 17 U/L Normal <=40 [facility] Comment on above: Performed By: #### C MP #### [facility] ([facility]) [address] [place] [address] VIR Anion gap [Moles/Vol] 6 mmol/L Normal 5-15 [facility] Comment on above: Performed By: #### C MP #### [facility] ([facility]) [address] [place] [address] VIR AST [Catalytic activity/Vol] 20 U/L Normal <=41 [facility] Comment on above: Performed By: #### C MP #### [facility] ([facility]) [address] [place] [address] VIR Bilirubin [Mass/Vol] 0.3 mg/dL Normal 0.3-1.2 [facility] Comment on above: Performed By: #### C MP #### [facility] ([facility]) [address] [place] [address] VIR Calcium [Mass/Vol] 9.6 mg/dL Normal 8.5-10.5 [facility] Comment on above: Performed By: #### C MP #### [facility] ([facility]) [address] [place] [address] VIR Chloride [Moles/Vol] 111 mmol/L High 98-109 [facility] Comment on above: Performed By: #### C MP #### [facility] ([facility]) [address] [place] [address] VIR CO2 [Moles/Vol] 25 mmol/L Normal 22-32 [facility] Comment on above: Performed By: #### C MP #### [facility] ([facility]) [address] [place] [address] VIR Creatinine [Mass/Vol] 0.92 mg/dL Normal 0.60-1.30 [facility] Comment on above: Result Comment: METH OD TRACEABLE TO IDMS STANDARD Performed By: #### C MP #### [facility] ([facility]) [address] [place] [address] VIR EGFR (CKD-EPI) NON-RACE DEPENDENT >^90 Normal >=60 [facility] Comment on above: Result Comment: Repo rted eGFR is based on the CKD-EPI 2020 equation that does not use a race coefficient. Performed By: #### C MP #### [facility] ([facility]) [address] [place] [address] VIR Glucose [Mass/Vol] 99 mg/dL Normal 65-99 [facility] Comment on above: Performed By: #### C MP #### [facility] ([facility]) [address] [place] [address] VIR Potassium [Moles/Vol] 4.2 mmol/L Normal 3.5-5.0 [facility] Comment on above: Performed By: #### C MP #### [facility] ([facility]) [address] [place] [address] VIR Protein [Mass/Vol] 7.0 g/dL Normal 6.0-8.0 [facility] Comment on above: Performed By: #### C MP #### [facility] ([facility]) [address] [place] [address] VIR Sodium [Moles/Vol] 142 mmol/L Normal 134-146 [facility] Comment on above: Performed By: #### C MP #### [facility] ([facility]) [address] [place] [address] VIR Urea nitrogen [Mass/Vol] 23 mg/dL Normal 5-23 [facility] Comment on above: Performed By: #### C MP #### [facility] ([facility]) [address] [place] [address] VIR Comprehensive metabolic pane alejandro 12-13-2024 Albumin [Mass/Vol] 4.6 g/dL 3.2 - 5.3 g/dL [facility] ALP [Catalytic activity/Vol] 63 U/L 39 - 130 U/L [facility] ALT No additional P-5'-P [Catalytic activity/Vol] 17 U/L NINF - 40 U/L [facility] Anion gap [Moles/Vol] 6 mmol/L 5 - 15 mmol/L [facility] AST [Catalytic activity/Vol] 20 U/L NINF - 41 U/L [facility] Bilirubin [Mass/Vol] 0.3 mg/dL 0.3 - 1 .2 mg/dL [facility] Calcium [Mass/Vol] 9.6 mg/dL 8.5 - 10. 5 mg/dL [facility] Chloride [Moles/Vol] 111 mmol/L High 98 - 10 9 mmol/L [facility] CO2 [Moles/Vol] 25 mmol/L 22 - 32 mmol/L [facility] Creatinine [Mass/Vol] 0.92 mg/dL 0.60 - 1.30 mg/dL [facility] Comment on above: METHOD TRACEABLE TO IDOR STANDARD EGFR Non-Race Dependent - PINF [facility] Comment on above: Reported eGFR is bas ed on the CKD-EPI 2020 equation that does not use a race coefficient. Glucose [Mass/Vol] 99 mg/dL 65 - 99 mg/dL [facility] Potassium [Moles/Vol] 4.2 mmol/L 3.5 - 5.0 mmol/L [facility] Protein [Mass/Vol] 7 g/dL 6.0 - 8.0 g/dL [facility] Sodium [Moles/Vol] 142 mmol/L 134 - 146 mmol/L [facility] Urea nitrogen [Mass/Vol] 23 mg/dL 5 - 23 mg/dL [facility] LIPID PROFILEon 12-13-2024 Cholesterol [Mass/Vol] 226 mg/dL High 150-200 [facility] Comment on above: Performed By: #### L IPR #### [facility] ([facility]) [address] [place] [address] VIR Cholesterol in HDL [Mass/Vol] 66 mg/dL Normal >39 [facility] Comment on above: Result Comment: HDL <40 mg/dL - High Risk HDL > or = 40mg/dL- Desirable HDL >60 mg/dL - Negative Risk Performed By: #### L IPR #### [facility] ([facility]) [address] [place] [address] VIR Cholesterol in LDL [Mass/Vol] 127 mg/dL Normal <130 [facility] Comment on above: Result Comment: LDL <100 mg/dL - Desirable LDL >160 mg/dL - High Risk Performed By: #### L IPR #### [facility] ([facility]) [address] [place] [address] VIR CHOLESTEROL:HDL 3.4 Normal 1.0-5.0 [facility] Comment on above: Performed By: #### L IPR #### [facility] ([facility]) [address] [place] [address] VIR Triglyceride [Mass/Vol] 165 mg/dL High 27-150 [facility] Comment on above: Performed By: #### L IPR #### [facility] ([facility]) [address] [place] [address] VIR VERY LOW LIPOPROTEIN 33 mg/dL High 0-30 [facility] Comment on above: Performed By: #### L IPR #### [facility] ([facility]) [address] [place] [address] VIR Lipid profileon 12-13-2024 Cholesterol [Mass/Vol] 226 mg/dL High 150 - 200 mg/dL [facility] Cholesterol in HDL [Mass/Vol] 66 mg/dL 39 - PINF mg/dL [facility] [facility] Comment on above: HDL <40 mg/dL - High Risk HDL > or = 40mg/dL- Desirable HDL >60 mg/dL - Negative Risk Cholesterol in HDL [Mass/Vol] 3.4 mg/dL 1.0 - 5.0 [facility] Cholesterol in LDL [Mass/Vol] 127 mg/dL NINF - 130 mg/dL [facility] Comment on above: LDL <100 mg/dL - Paolo irable LDL >160 mg/dL - High Risk Cholesterol in VLDL [Mass/Vol] 33 mg/dL High 0 - 30 mg/dL [facility] Triglyceride [Mass/Vol] 165 mg/dL High 27 - 150 mg/dL [facility] No Panel Informationon 12-13 Interpretation and review of laboratory results Abnormal [facility] VITAMIN B12on 12-13-2024 Cobalamin (Vitamin B12) [Mass/Vol] 1213 pg/mL High 180-914 [facility] Comment on above: Performed By: #### B 12 #### [facility] (TT) [address] [place] [address] VIR Vitamin B12on 12-13-2024 Cobalamin (Vitamin B12) [Mass/Vol] 1213 pg/mL High 180 - 914 pg/mL [facility] Interpretation and review of laboratory results Abnormal [facility] CNOVon 12-01-2024 CNOV Office Visit (SPNSMN ) BEE HARRIS ([id number]) 1965 M Date Time Provider Department 12/01/24 2:15 PM ERNIE RANKIN NSMN During your visit today, we recorded the following information about you: Temperature Pulse Respiration Blood pressure 97.6 degrees 67/minute 18/minute 119/73 Weight Height 74.8 kg 1.778 m Ernie Rankin APRN.CUPOLA MAN 12/01/2024 1:09 PM Signed 2 week post op instructions: Continue with activity restrictions. This means no excessive/repetitive bending, twisting, or lifting >10 lbs. No active chin to chest motion for neck surgery. Continue walking as tolerated. This is the best physical therapy post spine surgery! Avoid prolonged sitting or laying in bed. You may leave your incision open to air (no dressing). It is OK to get incision wet in shower. Use gentle soap. Avoid harsh scrubbing and pat dry. Avoid submerging in water (pool or tub) until 4 weeks post op. Avoid any creams or scar lotions until about 6 weeks post op. If you had a fusion surgery (rods/screws/interbod y instrumentation), you should continue to avoid antiinflammatories, such as NSAIDs (advil, aleve, ibuprofen, naproxen, etc), oral steroids, and certain supplements. The muscle relaxant and Tylenol will be your best treatments for pain control at this time. You can continue these as long as they are needed. The goal is to taper off of the narcotic pain medication (Oxycodone/Roxicodone ). Keep up the great work! Contact the office via [employer] or phone call with questions or concerns. [phone] Ernie Rankin APRN.CUPOLA MAN 12/02/2024 2:16 PM Signed SPINE SURGERY FOLLOW UP This is an in-person visit. SERVICE DATE: 11/30/2024 SURGERY DATE: 11/16/2024 SURGERY: C3-C5 laminoplasty INDICATIONS: balance issues and fine motor tasks issues. Cervical MRI revealed severe stenosis from C3-C5 Bee Harris is seen for 2 week post operative follow up. He is upset that he was not initially skilled for home health care or rehab. He now has [facility] providing him assistance. Reports generalized neck pain and stiffness. Seeing some improvement in altered sensation. Using robaxin, tylenol, and lyrica for pain relief. Continues using the narcotics as needed. Incision is healing well without any complications- he was worried as his bandage was coming off. His come health professional healthcare representative was able to replace and reinforce. Denies loss of control of bowel or bladder or new weakness. PAIN EVALUATION 12/01/2024 1302 Pain Level: 7 Pain Location: Neck head Description: Sharp Duration Amount of Time: 2 Duration Units: Weeks Frequency: Continuous Intervention/Comfort measure: Relaxation;Medication ANTIPLATELET OR ANTICOAGULATION STATUS: No Patient Entered [...] severe depression 20-27 Severe depression PHYSICAL EXAM: BP 119/73 Pulse 67 Temp 36.4 ?C (97.6 ?F) (Oral) Resp 18 Ht 177.8 cm (5' 10 ) Wt 74.8 kg (164 lb 14.5 oz) BMI 23.66 kg/m? GENERAL APPEARANCE: Well nourished, well developed, and no apparent distress. NEURO PSYCH: Patient oriented to person, place, and time. Mood pleasant. Benign affect. Spine Exam Incision: Kensett removed and replaced with steri-strips. No significant erythema, edema, and no drainage. 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 1. Ar is about 2 weeks out from surgery. He is overall recovering as expected. Refills provided as requested. 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 He will continue to avoid excessive bending lifting or twisting and will especially be mindful of avoiding active chin to chest motion. Education provided regarding expected outcomes and typical healing process. Cristal were removed. There is no sign of complication or infection. Okay to get the incision wet in the shower but he should avoid soaking in water for another 2 to 4 weeks. He will follow-up w (more content not included)... Normal [facility] 11-22-2024 [facility] Telephone (SPNSMN) BEE HARRIS ([id number]) 1965 M Date Time Provider Department 11/22/24 SHU LANDERS SPNSMN During your visit today, we recorded the following information about you: Shu Landers LSW 11/22/2024 3:14 PM Signed CM sent HC referrals to [address] and [facility]- awaiting responses. Due to pt insurance type identifying HC agency willing to accept pt may take extended time Shu Landers LSW 11/24/2024 1:03 PM Addendum [facility] HC agency declined pt for HC services CM send referral sent to [facility] by [facility]- awaiting response [address] HC- expressed they are unable to accept pt due to being at max capacity for pt insurance for at least 1.5-2 weeks and if services are still desired then a new referral would need to be placed. CM expressed understanding and thanks Shu Landers LSW 11/28/2024 9:[address] [facility] by [facility] has confirmed they are able to accept pt. SOC for 11/29. CM will notify team Allergies As of Date: 11/22/2024 (No Known Allergies) Date Reviewed: 11/18/2024 Reviewed by: Ling Carrasquillo, RN - Fully Assessed Reason for Visit: home care referrals [Other] Prescriptions as of 11/28/2024 - acetaminophen (TYLENOL EXTRA STRENGTH) 500 mg tablet Take 2 tablets by mouth every 8 hours. - oxyCODONE IR (ROXICODONE) 5 mg immediate release tablet Take 1 tablet by mouth every 6 hours as needed for pain for up to 10 days. for pain. - methocarbamol (ROBAXIN) 750 mg tablet Take 1 tablet by mouth four times daily. - polyethylene glycol 3350 17 gram/dose powder Take 17 g by mouth once daily. Dissolve dose in 4 - 8 ounces of liquid and take as directed. - atorvastatin (LIPITOR) 40 mg tablet Take 40 mg by mouth once daily. - cyanocobalamin (VITAMIN B-12) 1,000 mcg tab take 1 tablet (1,000 mcg total) by mouth in the morning - HYDROcodone-Acetamino phen (NORCO) 7.5-325 mg per tablet Take 1 tablet by mouth. - latanoprost (XALATAN) 0.005 % ophthalmic solution INSTILL ONE DROP IN EACH EYE BEFORE BED - meloxicam (MOBIC) 15 mg tablet Take 15 mg by mouth. - pregabalin (LYRICA) 75 mg capsule Take 75 mg by mouth. - venlafaxine ER (EFFEXOR XR) 37.5 mg 24 hr capsule Take 37.5 mg by mouth. - buPROPion XL (WELLBUTRIN XL) 150 mg 24 hr tablet Take 150 mg by mouth. - naloxone 4 mg/actuation nasal spray (NARCAN) - topiramate (TOPAMAX) 50 mg tablet Take 50 mg by mouth. Problem List As Of Date 11/22/2024 Noted Resolved Acute blood loss anemia [D62] 06/29/2022 Current smoker [F17.200] 08/21/2022 Depression [F32.A] 04/29/2024 Diverticulitis of colon with perforation [K57.2*08/21/2022 Essential hypertension [I10] 08/21/2022 History of colostomy reversal [Z98.890] 10/16/2020 Hyperlipidemia [E78.5] 08/21/2022 Multiple fractures of ribs, left side, initial *06/29/2022 Oropharyngeal dysphagia [R13.12] 06/29/2022 Perforated diverticulum [K57.80] 04/23/2020 Traumatic brain injury (HCC) [S06.9XAA] 02/15/2024 Cervical spondylosis with myelopathy [M47.12] 11/16/2024 Encounter Status:Closed by SHU LANDERS on 11/22/24 [facility] Telephone (NIQ) BEE HARRIS ([id number]) 1965 M Date Time Provider Department 4/22/25 JUS WISDOM During your visit today, we recorded the following information about you: Rukhsana Rosenthal 11/22/2024 12:54 PM Signed Call received for Jus Wisdom MD regarding Bee Harris. Caller: self Patient Identified by Name and : Bee Harris 1965 Reason for Call: General - pt wanted to speak to Lisa Multani about his health . Surgery 11/16/24 Is there any additional information the provider should know? No Last Office Visit: 11/01/2024 Next scheduled appointment: 01/10/2025 Best number to reach caller: [phone] Best time to reach caller: any Is it OK to leave a detailed voice message? Yes Devaughn Toussaint, RN 11/22/2024 2:21 PM Signed Neuro SPINE CARE COORDINATION QUICK NOTE Procedure(s): ( 11-16-24 ) Cervical laminoplasty C3-5 Call to the pt and he was very discouraged regarding his in pt. Stay .home care was discussed pre op but pt was not eligible. Pt feels that he would benefit from home care consult . Will work with for Home care for nursing - PT. Pt appreciative of call back. Pt admits to neck pain - stiffness only Admits to slight improvement in pain as well as ambulation . Minimal support at home. [facility] Chiropractor Assistant, Carolyn 11/29/2024 12:38 PM Signed Cheyanne with [facility] is calling pertaining to below message, Home Care [facility] states they are starting home care today Cheyanne call back [phone] Devaughn Vazquez, JUANITA 11/29/2024 1:05 PM Signed Neuro SPINE CARE COORDINATION QUICK NOTE Procedure(s): (11/16/24) Cervical laminoplasty C3-5 Return call to Cheyanne at Home care Nursing and PT has started care for the pt. No other issues noted per nursing at this time. Allergies As of Date: 11/22/2024 (No Known Allergies) Date Reviewed: 11/18/2024 Reviewed by: Ling Carrasquillo, JUANITA - Fully Assessed Reason for Visit: Patient Update [1234] Patient Question [1477] Primary Visit Diagnosis:Cervical vertebral fusion [M43.22] Order(s):[facility] [[id number]] Order #: [id number]: 1 Prescriptions as of 11/29/2024 - acetaminophen (TYLENOL EXTRA STRENGTH) 500 mg tablet Take 2 tablets by mouth every 8 hours. - methocarbamol (ROBAXIN) 750 mg tablet Take 1 tablet by mouth four times daily. - polyethylene glycol 3350 17 gram/dose powder Take 17 g by mouth once daily. Dissolve dose in 4 - 8 ounces of liquid and take as directed. - atorvastatin (LIPITOR) 40 mg tablet Take 40 mg by mouth once daily. - cyanocobalamin (VITAMIN B-12) 1,000 mcg tab take 1 tablet (1,000 mcg total) by mouth in the morning - HYDROcodone-Acetamino phen (NORCO) 7.5-325 mg per tablet Take 1 tablet by mouth. - latanoprost (XALATAN) 0.005 % ophthalmic solution INSTILL ONE DROP IN EACH EYE BEFORE BED - meloxicam (MOBIC) 15 mg tablet Take 15 mg by mouth. - pregabalin (LYRICA) 75 mg capsule Take 75 mg by mouth. - venlafaxine ER (EFFEXOR XR) 37.5 mg 24 hr capsule Take 37.5 mg by mouth. - buPROPion XL (WELLBUTRIN XL) 150 mg 24 hr tablet Take 150 mg by mouth. - naloxone 4 mg/actuation nasal spray (NARCAN) - topiramate (TOPAMAX) 50 mg tablet Take 50 mg by mouth. Problem List As Of Date 11/22/2024 Noted Resolved Acute blood loss anemia [D62] 06/29/2022 Current smoker [F17.200] 08/21/2022 Depression [F32.A] 04/29/2024 Diverticulitis of colon with perforation [K57.2*08/21/2022 Essential hypertension [I10] 08/21/2022 History of colostomy reversal [Z98.890] 10/16/2020 Hyperlipidemia [E78.5] 08/21/2022 Multiple fractures of ribs, left side, initial *06/29/2022 Oropharyngeal dysphagia [R13.12] 06/29/2022 Perforated diverticulum [K57.80] 04/23/2020 Traumatic brain injury (HCC) [S06.9XAA] 02/15/2024 Cervical spondylosis with myelopathy [M47.12] 11/16/2024 Encounter Status:Closed by ERNIE RANKIN on 11/22/24 Normal [facility] Basic metabolic 2000 panelon 11-19-2024 Anion gap [Moles/Vol] 11 mmol/L Normal 8-15 [facility] Comment on above: Order Comment: Speci men Type: BLOOD SPECIMENOrdering Facility: [facility] Address: [address] [place] [address] Performed By: #### 2 4321-2 ####[facility] LABORATORYCLIA [id number] [address] [place] [address] [place] Calcium [Mass/Vol] 8.9 mg/dL Normal 8.5-10.2 [facility] Comment on above: Order Comment: Speci men Type: BLOOD SPECIMENOrdering Facility: [facility] Address: [address] [place] [address] Performed By: #### 2 4321-2 ####[facility] LABORATORYCLIA [id number] [place] [address] [place] Chloride [Moles/Vol] 106 mmol/L Normal 98-107 [facility] Comment on above: Order Comment: Speci men Type: BLOOD SPECIMENOrdering Facility: [facility] Address: [address] [place] [address] Performed By: #### 2 4321-2 ####[facility] LABORATORYCLIA [id number] [place] [id number] [place] CO2 [Moles/Vol] 23 mmol/L Normal 22-30 [facility] Comment on above: Order Comment: Speci men Type: BLOOD SPECIMENOrdering Facility: [facility] Address: [address] [place] [address] Performed By: #### 2 4321-2 ####[facility] LABORATORYCLIA [id number] [place] [id number] [place] Creatinine [Mass/Vol] 0.59 mg/dL Low 0.73-1.22 [facility] Comment on above: Order Comment: Speci janee Type: BLOOD SPECIMENOrdering Facility: [facility] Address: [address] [place] [address] Performed By: #### 2 4321-2 ####[facility] LABORATORYCLIA [id number] [place] [id number] [place] Creatinine and Glomerular filtration rate.predicted panel (S/P/Bld) 112 mL/min/1.73m??? Normal >=60 [facility] Comment on above: Order Comment: Lenny janee Type: BLOOD SPECIMENOrdering Facility: [facility] Address: [address] [place] [address] Result Comment: Maureen mated Glomerular Filtration Rate (eGFR) is calculated using the 2020 CKD-EPI creatinine equation. This equation utilizes serum creatinine, sex, and age as parameters. The creatinine assay has traceable calibration to isotope dilution-mass spectrometry. Refer to KDIGO guidelines for clinical interpretation. In patients with unstable renal function, e.g. those with acute kidney injury, the eGFR may not accurately reflect actual GFR. Performed By: #### 2 4321-2 ####[facility] LABORATORYCLIA [id number] [place] [id number] [place] Glucose [Mass/Vol] 84 mg/dL Normal 74-99 [facility] Comment on above: Order Comment: Lenny weller Type: BLOOD SPECIMENOrdering Facility: [facility] Address: [address] [place] [address] Result Comment: The [place] Diabetes Association (ADA) provides guidance for cutoff [...] Standards of Medical Care in Diabetes 2016, [place] Diabetes Association. Diabetes Care. 2016.39(Suppl 1). Performed By: #### 2 4321-2 ####[facility] LABORATORYCLIA [id number] [address] [place] [address] [place] Potassium [Moles/Vol] 4.4 mmol/L Normal 3.7-5.1 [facility] Comment on above: Order Comment: Speci men Type: BLOOD SPECIMENOrdering Facility: [facility] Address: [address] [place] [address] Performed By: #### 2 4321-2 ####FA[facility] LABORATORYCLIA [id number] [address] [place], [place] [address] [place] Sodium [Moles/Vol] 140 mmol/L Normal 136-144 [facility] Comment on above: Order Comment: Speci men Type: BLOOD SPECIMENOrdering Facility: [facility] Address: [address] [place] [address] Performed By: #### 2 4321-2 ####FA[facility] LABORATORYCLIA [id number] [place] [address] [place] Urea nitrogen [Mass/Vol] 16 mg/dL Normal 9-24 [facility] Comment on above: Order Comment: Speci men Type: BLOOD SPECIMENOrdering Facility: [facility] Address: [address] [place] [address] Performed By: #### 2 4321-2 ####FA[facility] LABORATORYCLIA [id number] [place] [id number] [place] CBC panel Auto (Bld)on 11-19 Erythrocyte distribution width (RBC) [Ratio] 14.6 % Normal 11.5-15.0 [facility] Comment on above: Order Comment: Speci men Type: BLOOD SPECIMENOrdering Facility: [facility] Address: [address] [place] [address] Performed By: #### 5 8410-2 ####FAITH LABORATORYCLIA [id number] [address] [place] Hematocrit (Bld) [Volume fraction] 39.8 % Normal 39.0-51.0 [facility] Comment on above: Order Comment: Speci men Type: BLOOD SPECIMENOrdering Facility: [facility] Address: [address] [place] [address] Performed By: #### 5 8410-2 ####FA[facility] LABORATORYCLIA [id number] [address] [place], [place] [address] [place] Hemoglobin (Bld) [Mass/Vol] 13.1 g/dL Normal 13.0-17.0 [facility] Comment on above: Order Comment: Speci men Type: BLOOD SPECIMENOrdering Facility: [facility] Address: [address] [place] [address] Performed By: #### 5 8410-2 ####FA[facility] LABORATORYCLIA [id number] [address] [place] [address] [place] MCH (RBC) [Entitic mass] 32.9 pg Normal 26.0-34.0 [facility] Comment on above: Order Comment: Speci men Type: BLOOD SPECIMENOrdering Facility: [facility] Address: [address] [place] [address] Performed By: #### 5 8410-2 ####FA[facility] LABORATORYCLIA [id number] [address] STATES [facility] MCHC (RBC) [Mass/Vol] 32.9 g/dL Normal 30.5-36.0 [facility] Comment on above: Order Comment: Speci men Type: BLOOD SPECIMENOrdering Facility: [facility] Address: [address] [place] [address] Performed By: #### 5 8410-2 ####FA[facility] LABORATORYCLIA [id number] [place] [id number] [place] MCV (RBC) [Entitic vol] 100.0 fL Normal 80.0-100.0 [facility] Comment on above: Order Comment: Speci men Type: BLOOD SPECIMENOrdering Facility: [facility] Address: [address] [place] [address] Performed By: #### 5 8410-2 ####FA[facility] LABORATORYCLIA [id number] [address] [place] [address] [place] Nucleated RBC (Bld) [#/Vol] 10*3/uL Normal <0.01 [facility] Comment on above: Order Comment: Speci men Type: BLOOD SPECIMENOrdering Facility: [facility] Address: [address] [place] [address] Performed By: #### 5 8410-2 ####FA[facility] LABORATORYCLIA [id number] [address] [place], [place] [address] [place] Platelet mean volume (Bld) [Entitic vol] 10.5 fL Normal 9.0-12.7 [facility] Comment on above: Order Comment: Speci men Type: BLOOD SPECIMENOrdering Facility: [facility] Address: [address] [place] [address] Performed By: #### 5 8410-2 ####FA[facility] LABORATORYCLIA [id number] [place] [address] [place] Platelets (Bld) [#/Vol] 188 10*3/uL Normal 150-400 [facility] Comment on above: Order Comment: Speci men Type: BLOOD SPECIMENOrdering Facility: [facility] Address: [address] [place] [address] Performed By: #### 5 8410-2 ####FA[facility] LABORATORYCLIA [id number] [place] [address] [place] RBC (Bld) [#/Vol] 3.98 10*6/uL Low 4.20-6.00 [facility] Comment on above: Order Comment: Speci men Type: BLOOD SPECIMENOrdering Facility: [facility] Address: [address] [place] [address] Performed By: #### 5 8410-2 ####FA[facility] LABORATORYCLIA [id number] [place] [id number] [place] WBC (Bld) [#/Vol] 8.87 10*3/uL Normal 3.70-11.00 [facility] Comment on above: Order Comment: Speci men Type: BLOOD SPECIMENOrdering Facility: [facility] Address: [address] [place] [address] Performed By: #### 5 8410-2 ####[facility] [id number] [address] [place] 11-19-2024 [facility] HNO ID: [id number] Author: JUS WISDOM MD Service: Orthopaedic Surgery Author Type: Resident Type: Discharge Summary Filed: 11/21/2024 08:04 Note Text: Attestation signed by Jus Wisdom MD at 11/21/2024 8:04 AM I have personally seen and examined the above patient. I have confirmed the guzman components of the history and physical exam with the patient and agree with the findings, assesment and plan documented above by the ortho resident. Jus Wisdom MD Spine Surgery. ORTHOPEDIC SURGERY DISCHARGE SUMMARY ADMISSION DATE: 11/16/2024 DISCHARGE DATE: 11/19/2024 Attending Physician: Jus Wisdom MD Reason for Hospitalization: C3-C5 Laminoplasty Admitting Diagnosis: Cervical Spondylotic Myelopathy Discharge Diagnosis: Cervical Spondylotic Myelopathy Additional Diagnoses: ACTIVE PROBLEM LIST Acute Blood Loss Anemia Current Smoker Depression Diverticulitis of Colon With Perforation Essential Hypertension History of Colostomy Reversal Hyperlipidemia Multiple Fractures of Ribs, Left Side, Initial Encounter for Closed Fracture Oropharyngeal Dysphagia Perforated Diverticulum Traumatic Brain Injury (Hcc) Cervical Spondylosis With Myelopathy Surgeries During Hospitalization: Procedure(s) (LRB): CERVICAL LAMINOPLASTY WITH DECOMPRESSION 2 OR MORE SEGMENTS (N/A) Procedures During Hospitalization: None Consultations: Physical Therapy Case Management Internal Medicine Pain Management Occupational Therapy Hospital Course: The patient is a 59 year old male who has been followed by Jus Gupta MD, in clinic for Cervical Spondylotic Myelopathy. It was determined he would benefit from surgery. The procedure, its risks, benefits, and potential complications were discussed in detail with the patient prior to surgery. Understanding of all topics was conveyed by the patient, and consent was given for surgery. The patient was electively admitted to the [facility] on 11/16/2024. Surgery was scheduled and on 11/16/2024 he underwent a Procedure(s) (LRB): CERVICAL LAMINOPLASTY WITH DECOMPRESSION 2 OR MORE SEGMENTS (N/A) with GETA. The procedure was tolerated well and he was sent to the post operative recovery room in stable condition, where he also did well. Post operative x-rays demonstrated appropriate alignment. He was subsequently sent to his hospital room for postoperative management. Once on the floor his postoperative course was unremarkable and he did well. His diet was advanced which he tolerated. His pain was well controlled on oxycodone and acetaminophen; this was eventually transitioned to oral medication alone prior to discharge. He worked with Physical and Occupational Therapy starting on POD#1 who recommended he be discharged home. His dressing remained clean dry and intact throughout his stay. He remained afebrile with stable vital signs throughout his stay. He was stable for discharge to home on POD#3. Complete and comprehensive discharge instructions were provided to the patient as well as necessary prescriptions. The patient had no further questions and was advised to call with any questions, concerns, or problems. Patient was hemodynamically stable postoperatively. Relevant labs included: Hemoglobin (g/dL) Date Value 11/19/2024 13.1 11/18/2024 12.5 (L) 11/17/2024 13.3 Hematocrit (%) Date Value 11/19/2024 39.8 11/18/2024 38.4 (L) 11/17/2024 40.6 Discharge Antibiotics: Prior to surgery the patient was treated with antibiotics and continued with antibiotics 24 hours postoperatively Transfers: PACU and then to the hospital surgical floor when PACU criteria was met. DVT Prophylaxis: Heparin Pain Control: Oral narcotics Complications: Continued throughout the hospital course without complications. Patient Condition @ Discharge: Stable Discharge Disposition: Home with Relative Other Information: None Discharge Activity/Weight Bearing Status: Weight bearing as tolerated Information Provided to Patient: No additional information The patient was instructed to follow-up as scheduled. Future Appointments Date Time Provider Department Center 12/01/2024 2:15 PM Ernie Rankin APRN.[facility] Main - S Bld 01/10/2025 1:15 PM XR [facility] 1 [facility] 01/10/2025 2:00 PM Jus Wisdom MD [facility] Bee Harris will require more than a 7 day supply of 30 morphine equivalent doses per day (MEDD) of narcotic prescription due to their major orthopaedic surgery Lopez Singh MD PGY-3 Orthopaedic Surgery [facility] 11-18-2024 [facility] HNO ID: [id number] Author: IRMA MARCH RT(R) Service: Radiology Author Type: Technologist Type: Allied Health Filed: 11/18/2024 11:40 Note Text: Radiology Service Progress Note PATIENT NAME: Bee Harris DATE OF SERVICE: November 18, 2024 TIME: 11:40 AM PATIENT IDENTITY VERIFICATION COMPLETED USING TWO (2) IDENTIFIERS: Name and Date of confirmed by patient verbally and Name and Date of confirmed by identification band. FALL SCREENING: Has the patient had 2 falls in the last year or 1 fall with injury or currently using an Ambulatory Assistive Device (Walker, Cane, Wheelchair, Crutches, etc.)? Inpatient: Screened on floor PATIENT GENDER DATA: Assigned male at PATIENT RELEVANT IMPLANT DATA REVIEWED: Not Applicable PATIENT PRESENTS WITH AN IMPLANTABLE OR ATTACHED VEGETABLE HANDLER: No RADIOLOGY DEPARTMENT: General X-ray: Exam(s) Completed: Spine X-Ray(s): Cervical AP / LAT PERIPHERAL IV DATA: Not applicable SIGNED BY: RT Drummond Cela(R) November 18, 2024 11:40 AM [facility] Basic metabolic 2000 panelon 11-18-2024 Anion gap [Moles/Vol] 4 mmol/L Low 8-15 [facility] Comment on above: Order Comment: Speci men Type: BLOOD SPECIMENOrdering Facility: [facility] Address: [address] [place] [address] Performed By: #### 2 4321-2 ####FAITH LABORATORYCLIA [id number] [address] [place], [place] [address] [place] Calcium [Mass/Vol] 8.8 mg/dL Normal 8.5-10.2 [facility] Comment on above: Order Comment: Speci men Type: BLOOD SPECIMENOrdering Facility: [facility] Address: [address] [place] [address] Performed By: #### 2 4321-2 ####FAITH LABORATORYCLIA [id number] [place] [id number] [place] Chloride [Moles/Vol] 114 mmol/L High 98-107 [facility] Comment on above: Order Comment: Speci men Type: BLOOD SPECIMENOrdering Facility: [facility] Address: [address] [place] [address] Performed By: #### 2 4321-2 ####FAITH LABORATORYCLIA [id number] [place] [id number] [place] CO2 [Moles/Vol] 22 mmol/L Normal 22-30 [facility] Comment on above: Order Comment: Speci men Type: BLOOD SPECIMENOrdering Facility: [facility] Address: [address] [place] [address] Performed By: #### 2 4321-2 ####FAITH LABORATORYCLIA [id number] [place] [id number] [place] Creatinine [Mass/Vol] 0.67 mg/dL Low 0.73-1.22 [facility] Comment on above: Order Comment: Speci men Type: BLOOD SPECIMENOrdering Facility: [facility] Address: [address] [place] [address] Performed By: #### 2 4321-2 ####FAITH LABORATORYCLIA [id number] [place] [id number] [place] Creatinine and Glomerular filtration rate.predicted panel (S/P/Bld) 108 mL/min/1.73m??? Normal >=60 [facility] Comment on above: Order Comment: Speci men Type: BLOOD SPECIMENOrdering Facility: [facility] Address: [address] [place] [address] Result Comment: Maureen mated Glomerular Filtration Rate (eGFR) is calculated using the 2020 CKD-EPI creatinine equation. This equation utilizes serum creatinine, sex, and age as parameters. The creatinine assay has traceable calibration to isotope dilution-mass spectrometry. Refer to KDIGO guidelines for clinical interpretation. In patients with unstable renal function, e.g. those with acute kidney injury, the eGFR may not accurately reflect actual GFR. Performed By: #### 2 4321-2 ####FAITH LABORATORYCLIA [id number] [place] [id number] [place] Glucose [Mass/Vol] 84 mg/dL Normal 74-99 [facility] Comment on above: Order Comment: Lenny weller Type: BLOOD SPECIMENOrdering Facility: [facility] Address: [address] [place] [address] Result Comment: The [place] Diabetes Association (ADA) provides guidance for cutoff [...] Standards of Medical Care in Diabetes 2016, [place] Diabetes Association. Diabetes Care. 2016.39(Suppl 1). Performed By: #### 2 4321-2 ####FAITH LABORATORYCLIA [id number] [place] [id number] [place] Potassium [Moles/Vol] 4.1 mmol/L Normal 3.7-5.1 [facility] Comment on above: Order Comment: Lenny weller Type: BLOOD SPECIMENOrdering Facility: [facility] Address: [address] [place] [address] Performed By: #### 2 4321-2 ####FAITH LABORATORYCLIA [id number] [place] [id number] [place] Sodium [Moles/Vol] 140 mmol/L Normal 136-144 [facility] Comment on above: Order Comment: Speci men Type: BLOOD SPECIMENOrdering Facility: [facility] Address: [address] [place] [address] Performed By: #### 2 4321-2 ####FAITH LABORATORYCLIA [id number] [address] [place], [place] [address] [place] Urea nitrogen [Mass/Vol] 17 mg/dL Normal 9-24 [facility] Comment on above: Order Comment: Speci men Type: BLOOD SPECIMENOrdering Facility: [facility] Address: [address] [place] [address] Performed By: #### 2 4321-2 ####FAITH LABORATORYCLIA [id number] [place] [id number] [place] CBC panel Auto (Bld)on 11-18 Erythrocyte distribution width (RBC) [Ratio] 15.0 % Normal 11.5-15.0 [facility] Comment on above: Order Comment: Speci men Type: BLOOD SPECIMENOrdering Facility: [facility] Address: [address] [place] [address] Performed By: #### 5 8410-2 ####FAITH LABORATORYCLIA [id number] [place] [id number] [place] Hematocrit (Bld) [Volume fraction] 38.4 % Low 39.0-51.0 [facility] Comment on above: Order Comment: Speci men Type: BLOOD SPECIMENOrdering Facility: [facility] Address: [address] [place] [address] Performed By: #### 5 8410-2 ####FAITH LABORATORYCLIA [id number] [place] [id number] [place] Hemoglobin (Bld) [Mass/Vol] 12.5 g/dL Low 13.0-17.0 [facility] Comment on above: Order Comment: Speci men Type: BLOOD SPECIMENOrdering Facility: [facility] Address: [address] [place] [address] Performed By: #### 5 8410-2 ####FAITH LABORATORYCLIA [id number] [address] [place], [place] [address] [place] MCH (RBC) [Entitic mass] 33.0 pg Normal 26.0-34.0 [facility] Comment on above: Order Comment: Speci men Type: BLOOD SPECIMENOrdering Facility: [facility] Address: [address] [place] [address] Performed By: #### 5 8410-2 ####FAITH LABORATORYCLIA [id number] [address] [place] [address] [place] MCHC (RBC) [Mass/Vol] 32.6 g/dL Normal 30.5-36.0 [facility] Comment on above: Order Comment: Speci men Type: BLOOD SPECIMENOrdering Facility: [facility] Address: [address] [place] [address] Performed By: #### 5 8410-2 ####FAITH LABORATORYCLIA [id number] [address] [place] [address] [place] MCV (RBC) [Entitic vol] 101.3 fL High 80.0-100.0 [facility] Comment on above: Order Comment: Speci men Type: BLOOD SPECIMENOrdering Facility: [facility] Address: [address] [place] [address] Performed By: #### 5 8410-2 ####FAITH LABORATORYCLIA [id number] [address] [place] Nucleated RBC (Bld) [#/Vol] 10*3/uL Normal <0.01 [facility] Comment on above: Order Comment: Speci men Type: BLOOD SPECIMENOrdering Facility: [facility] Address: [address] [place] [address] Performed By: #### 5 8410-2 ####FAITH LABORATORYCLIA [id number] [address] [place] Platelet mean volume (Bld) [Entitic vol] 10.1 fL Normal 9.0-12.7 [facility] Comment on above: Order Comment: Speci men Type: BLOOD SPECIMENOrdering Facility: [facility] Address: [address] [place] [address] Performed By: #### 5 8410-2 ####FAITH LABORATORYCLIA [id number] [address] [place], [place] [address] [facility] Platelets (Bld) [#/Vol] 163 10*3/uL Normal 150-400 [facility] Comment on above: Order Comment: Speci men Type: BLOOD SPECIMENOrdering Facility: [facility] Address: [address] [place] [address] Performed By: #### 5 8410-2 ####FAITH LABORATORYCLIA [id number] [place] [id number] [facility] [place] RBC (Bld) [#/Vol] 3.79 10*6/uL Low 4.20-6.00 [facility] Comment on above: Order Comment: Speci men Type: BLOOD SPECIMENOrdering Facility: [facility] Address: [address] [place] [address] Performed By: #### 5 8410-2 ####FAITH LABORATORYCLIA [id number] [place] [id number] [facility] [place] WBC (Bld) [#/Vol] 8.73 10*3/uL Normal 3.70-11.00 [facility] Comment on above: Order Comment: Speci men Type: BLOOD SPECIMENOrdering Facility: [facility] Address: [address] [place] [address] Performed By: #### 5 8410-2 ####FAITH LABORATORYCLIA [id number] [place] [id number] [facility] [place] XR CERVICAL 2V AP/LATon 04- XR CERVICAL 2V AP/LAT * * *Final Report* * * DATE [...] subluxation is evident. Narrowing C6-7 disc space. IMPRESSION: Postsurgical findings Chemistry Technician: LIANA Transcribe Date/Time: Nov 18 2024 3:02P Dictated by : ADILSON JONES MD This examination was interpreted and the report reviewed and electronically signed by: ADILSON JONES MD on Nov 18 2024 3:04PM EST [id number] Normal [facility] Basic metabolic 2000 panelon 11-17-2024 Anion gap [Moles/Vol] 11 mmol/L Normal 8-15 [facility] Comment on above: Order Comment: Speci men Type: BLOOD SPECIMENOrdering Facility: [facility] Address: [address] [place] [address] Performed By: #### 2 4321-2 ####FAITH LABORATORYCLIA [id number] [place] [address] [place] Calcium [Mass/Vol] 8.7 mg/dL Normal 8.5-10.2 [facility] Comment on above: Order Comment: Speci men Type: BLOOD SPECIMENOrdering Facility: [facility] Address: [address] [place] [address] Performed By: #### 2 4321-2 ####FAITH LABORATORYCLIA [id number] [place] [id number] [place] Chloride [Moles/Vol] 112 mmol/L High 98-107 [facility] Comment on above: Order Comment: Speci men Type: BLOOD SPECIMENOrdering Facility: [facility] Address: [address] [place] [address] Performed By: #### 2 4321-2 ####FAITH LABORATORYCLIA [id number] [place] [id number] [place] CO2 [Moles/Vol] 19 mmol/L Low 22-30 [facility] Comment on above: Order Comment: Speci men Type: BLOOD SPECIMENOrdering Facility: [facility] Address: [address] [place] [address] Performed By: #### 2 4321-2 ####FAITH LABORATORYCLIA [id number] [place] [id number] [place] Creatinine [Mass/Vol] 0.69 mg/dL Low 0.73-1.22 [facility] Comment on above: Order Comment: Lenny weller Type: BLOOD SPECIMENOrdering Facility: [facility] Address: [address] [place] [address] Performed By: #### 2 4321-2 ####FAITH LABORATORYCLIA [id number] [place] [id number] [place] Creatinine and Glomerular filtration rate.predicted panel (S/P/Bld) 107 mL/min/1.73m??? Normal >=60 [facility] Comment on above: Order Comment: Lenny weller Type: BLOOD SPECIMENOrdering Facility: [facility] Address: [address] [place] [address] Result Comment: Maureen mated Glomerular Filtration Rate (eGFR) is calculated using the 2020 CKD-EPI creatinine equation. This equation utilizes serum creatinine, sex, and age as parameters. The creatinine assay has traceable calibration to isotope dilution-mass spectrometry. Refer to KDIGO guidelines for clinical interpretation. In patients with unstable renal function, e.g. those with acute kidney injury, the eGFR may not accurately reflect actual GFR. Performed By: #### 2 4321-2 ####FAITH LABORATORYCLIA [id number] [place] [id number] [place] Glucose [Mass/Vol] 81 mg/dL Normal 74-99 [facility] Comment on above: Order Comment: Lenny weller Type: BLOOD SPECIMENOrdering Facility: [facility] Address: [address] [place] [address] Result Comment: The [place] Diabetes Association (ADA) provides guidance for cutoff [...] Standards of Medical Care in Diabetes 2016, [place] Diabetes Association. Diabetes Care. 2016.39(Suppl 1). Performed By: #### 2 4321-2 ####FAITH LABORATORYCLIA [id number] [place] [id number] [place] Potassium [Moles/Vol] 4.4 mmol/L Normal 3.7-5.1 [facility] Comment on above: Order Comment: Lenny weller Type: BLOOD SPECIMENOrdering Facility: [facility] Address: [address] [place] [address] Performed By: #### 2 4321-2 ####FAITH LABORATORYCLIA [id number] [place] [id number] [place] Sodium [Moles/Vol] 142 mmol/L Normal 136-144 [facility] Comment on above: Order Comment: Lenny weller Type: BLOOD SPECIMENOrdering Facility: [facility] Address: [address] [place] [address] Performed By: #### 2 4321-2 ####FAITH LABORATORYCLIA [id number] [place] [id number] [place] Urea nitrogen [Mass/Vol] 20 mg/dL Normal 9-24 [facility] Comment on above: Order Comment: Lenny weller Type: BLOOD SPECIMENOrdering Facility: [facility] Address: [address] [place] [address] Performed By: #### 2 4321-2 ####FAITH LABORATORYCLIA [id number] [place] [id number] [place] CASE MGT INIT CHARLEYon 2024 CASE MGT INIT ASSES HNO ID: [id number] Author: VÍCTOR CASTILLO RN Service: Care Management Author Type: Registered Nurse Type: Care Mgt Initial Assessment Filed: 11/17/2024 14:53 Note Text: CARE MANAGEMENT: ASSESSMENT AND DISCHARGE PLAN SERVICE DATE: November 17, 2024 SERVICE TIME: 1430 PCP: Cris Singh DO Primary Contact: Extended Emergency Contact Information Primary Emergency Contact: Marcela Toro Mobile Relation: Sister Admission Status: Inpatient [facility] Discharge Planning requested by: Per Department Practice Potential Transition Plans Home, No Services Indicated Advance Directives Current Advance Directive: None Current Living Arrangements and Support Lives with: Alone Type of Residence: Private Residence (Apartment or Condo) Does the patient have to climb stairs at home?: No Support: Family members, Friends/neighbors How do you manage to accomplish the following: Independent: Bathe/Shower, Dress, Meals/Meal Prep, Going to the bathroom, Medication Management Needs Assistance: Ambulation, Transportation to appointments/communit y Current Services/Equipment Current Post-Acute Service(s): DME Current DME Type: Cane Discharge Planning Patient Goal(s): Other: See Comment Patient's Other Post-Acute Care Goal(s): to have better balance [place] of Choice Explained: [place] of Choice Given: No Reason Not Given: No placements necessary Are you interested in bedside delivery of your medications? TBD Discharge Planning Participant(s): Patient Patient/Family Comments: Caregiver Assessment: Caregiver is ready, willing and able to meet the patient's needs as recommended by the inter-professional team: Yes Name of Caregiver: Friends if needed Transport at Discharge: Transportation Arrangements: Car Needs Prior to Discharge: Needs Prior to Discharge: OT/PT Evaluation, Discharge Prescriptions, To Be Determined Post-Acute Discharge Plan: Patient assessed at this time. He lives in a senior building, is independent in the home but doesn't drive. His unemployed and has applied for disability. He says his HUD covers his utilities and he has sold a few of his items to help cover his rent and he receivesfood stamps for groceries. He will walk, use is insurance transport or sister will drive him where needed. He has a cane he uses for ambulation assistance. At this time he has no needs and plans to go home on discharge with his Sister transporting him. CM will remain available for any discharge needs. SIGNATURE: Víctor Castillo RN PATIENT NAME: Bee Harris DATE: November 17, 2024 TIME: 2:48 PM Normal [facility] CBC panel Auto (Bld)on 11-17 Erythrocyte distribution width (RBC) [Ratio] 14.9 % Normal 11.5-15.0 [facility] Comment on above: Order Comment: Speci men Type: BLOOD SPECIMENOrdering Facility: [facility] Address: [address] [place] [address] Performed By: #### 5 8410-2 ####FAITH LABORATORYCLIA [id number] [address] [place], [place] [address] [place] Hematocrit (Bld) [Volume fraction] 40.6 % Normal 39.0-51.0 [facility] Comment on above: Order Comment: Speci men Type: BLOOD SPECIMENOrdering Facility: [facility] Address: [address] [place] [address] Performed By: #### 5 8410-2 ####FAITH LABORATORYCLIA [id number] [place] [id number] [facility] [place] Hemoglobin (Bld) [Mass/Vol] 13.3 g/dL Normal 13.0-17.0 [facility] Comment on above: Order Comment: Speci men Type: BLOOD SPECIMENOrdering Facility: [facility] Address: [address] [place] [address] Performed By: #### 5 8410-2 ####FAITH LABORATORYCLIA [id number] [place] [id number] [place] MCH (RBC) [Entitic mass] 33.0 pg Normal 26.0-34.0 [facility] Comment on above: Order Comment: Speci men Type: BLOOD SPECIMENOrdering Facility: [facility] Address: [address] [place] [address] Performed By: #### 5 8410-2 ####FAITH LABORATORYCLIA [id number] [place] [id number] [place] MCHC (RBC) [Mass/Vol] 32.8 g/dL Normal 30.5-36.0 [facility] Comment on above: Order Comment: Speci men Type: BLOOD SPECIMENOrdering Facility: [facility] Address: [address] [place] [address] Performed By: #### 5 8410-2 ####FAITH LABORATORYCLIA [id number] [address] [place], [place] [address] [place] MCV (RBC) [Entitic vol] 100.7 fL High 80.0-100.0 [facility] Comment on above: Order Comment: Speci men Type: BLOOD SPECIMENOrdering Facility: [facility] Address: [address] [place] [address] Performed By: #### 5 8410-2 ####FAITH LABORATORYCLIA [id number] [address] [place], [place] [address] [place] Nucleated RBC (Bld) [#/Vol] 10*3/uL Normal <0.01 [facility] Comment on above: Order Comment: Speci men Type: BLOOD SPECIMENOrdering Facility: [facility] Address: [address] [place] [address] Performed By: #### 5 8410-2 ####FAITH LABORATORYCLIA [id number] [address] [place] Platelet mean volume (Bld) [Entitic vol] 10.6 fL Normal 9.0-12.7 [facility] Comment on above: Order Comment: Speci men Type: BLOOD SPECIMENOrdering Facility: [facility] Address: [address] [place] [address] Performed By: #### 5 8410-2 ####FAITH LABORATORYCLIA [id number] [address] [place] Platelets (Bld) [#/Vol] 177 10*3/uL Normal 150-400 [facility] Comment on above: Order Comment: Speci men Type: BLOOD SPECIMENOrdering Facility: [facility] Address: [address] [place] [address] Performed By: #### 5 8410-2 ####FAITH LABORATORYCLIA [id number] [place] [address] [place] RBC (Bld) [#/Vol] 4.03 10*6/uL Low 4.20-6.00 [facility] Comment on above: Order Comment: Speci men Type: BLOOD SPECIMENOrdering Facility: [facility] Address: [address] [place] [address] Performed By: #### 5 8410-2 ####FAITH LABORATORYCLIA [id number] [address] WBC (Bld) [#/Vol] 9.80 10*3/uL Normal 3.70-11.00 [facility] Comment on above: Order Comment: Speci men Type: BLOOD SPECIMENOrdering Facility: [facility] Address: [address] [place] [address] Performed By: #### 5 8410-2 ####FAITH LABORATORYCLIA [id number] [address] THERAPY NTon 11-17-2024 THERAPY NT HNO ID: [id number] Author: ARGELIA KUMARI, PT, DPT Service: Physical Therapy Author Type: Physical Therapist Type: Therapy (PT/OT/Speech/Resp) Filed: 11/17/2024 11:23 Note Text: Summary: PT Evaluation Physical Therapy Evaluation Summary SERVICE DATE: 11/17/2024 SERVICE TIME: 1049 to 1114 ROOM: [place] [address] PT 6 Clicks Score: 23 DISCHARGE RECOMMENDATIONS Home Recommended Discharge Disposition Comments: Cleared for safe discharge home from PT standpoint Recommended Discharge Equipment: Rollator (Can obtain script for outpatient follow up, to improve ease of community access) ASSESSMENT Response to Therapy Interventions: Good Participation in Activities, On-Track to Achieve Discharge Goals Verbal teach back and return demonstration of all precaustions at this time. Able to demonstrate safe gait with both SPC and Rollator use; Goals met for acute care PT and order will be discontinued. PRECAUTIONS Spine No intentional chin to chest movements for 6 weeks CURRENT HOSPITAL COURSE S/p C3-[address] Wisdom 11/16/24; Relevant Past Medical History: TBI;colostomy reversal;Multiple fractures of ribs, left side, initial encounter for closed fracture; patient reports vertigo HOME LIVING Patient Lives With: Self/Alone (ILF) Assistance Available: PRN Entry To Home: No Stairs Number Of Stairs To Bed/Bath: 0 Tub/Shower Type: walk in Laundry: At facility Equipment Owned: Grab Bars- Shower, Grab Bars- Toilet, Cane PRIOR FUNCTIONAL LEVEL Within Functional Limits ambulated with cane; indep with adl/most iadl; had assist for transportation SUBJECTIVE I want to get outside to watch the [employer] THERAPY DIAGNOSIS Abnormalities of gait and mobility-other TREATMENT INTERVENTIONS Evaluation, Gait Training (25017) Timed Code Treatment (minutes): 10 Skilled Treatment Time (minutes): 25 TRAINING AND EDUCATION PROVIDED Anatomy and Impact on Deficits, Assistive Device Use, Benefits of In-Hospital Mobility, Discharge Planning, Disease Specific Education, Expected Functional Level, Falls Prevention, Handout Issued, Gait Pattern, Reduction of Deviations, Home Safety, Precautions/Restricti ons, Role of Physical Therapy, Transfers THERAPEUTIC SKILLS USED Activity Dosing, Cuing Verbal, Cues for Sequencing/Proper Technique for Activity, Cuing Tactile, Teach-Back for Education FUNCTIONAL STATUS Bed Mobility Supine To Sit: Supervision, Additional Information Log Roll Sit to Supine: Supervision Transfers Sit To Stand: Stand By Assistance Stand To Sit: Stand By Assistance Bed to Chair Gait Stand By Assistance, Additional Information Training on brake system with Rollator Gait Device: Cane, Rollator General Deviations/Observatio ns: Juli decreased Gait Distance (feet): x80' Cane; x180' Rollator Stairs GOALS Patient will demonstrate progress with functional mobility to allow safe discharge to home with available support and/or physical assistance. Rehab Potential: Good PLAN PT Frequency: Discontinue Therapy Services Reasons Therapy Services Discontinued: Goals met Treatment Interventions: Education SIGNATURE: Argelia Kumari PT, DPT PATIENT NAME: Bee Harris DATE: November 17, 2024 TIME: 11:23 AM [facility] THERAPY NT HNO ID: [id number] Author: GYPSY HWANG, OTR/L Service: Occupational Therapy Author Type: Occupational Therapist Type: Therapy (PT/OT/Speech/Resp) Filed: 11/17/2024 11:06 Note Text: Occupational Therapy Evaluation Summary SERVICE DATE: 11/17/2024 SERVICE TIME: 1017 to 1036 ROOM: [place] [id number] OT 6 Clicks Score: 24 Total Joint Replacement Discharge Readiness: Not Applicable DISCHARGE RECOMMENDATIONS Home ASSESSMENT Response to Therapy Interventions: On-Track to Achieve Discharge Goals, Good Participation in Activities Patient is cleared for DC to home from OT standpoint. Pt demonstrated ability to dress self and understands precautions. PRECAUTIONS Spine CURRENT HOSPITAL COURSE s/p C3-5 laminoplasty Relevant Past Medical History: TBI;colostomy reversal;Multiple fractures of ribs, left side, initial encounter for closed fracture; patient reports vertigo HOME LIVING Patient Lives With: Self/Alone Assistance Available: PRN (lives in independent living; has family support for transportation) Entry To Home: No Stairs Number Of Stairs To Bed/Bath: 0 Tub/Shower Type: walk in Equipment Owned: Grab Bars- Shower, Grab Bars- Toilet, Cane PRIOR FUNCTIONAL LEVEL Within Functional Limits ambulated with cane; had assist for transportation SUBJECTIVE agreeable to OT THERAPY DIAGNOSIS Reduced mobility-other, Decreased activities of daily living (ADL) TREATMENT INTERVENTIONS Evaluation Skilled Treatment Time (minutes): 19 TRAINING AND EDUCATION PROVIDED Activity Adaptation/Compensato ry Strategies, Assistive Device Use, Adaptive Equipment/DME, Bed Mobility, Benefits of In-Hospital Mobility, Lower Extremity Dressing, Lower Extremity Bathing, Precautions/Restricti ons, Positioning, Role of Occupational Therapy, Transfer - Bed to Chair, Transfer - Car, Transfer - Sit to Stand THERAPEUTIC SKILLS USED Activity Dosing, Cuing Verbal, Cues for Sequencing/Proper Technique for Activity, Management of Critical Lines, Tubes and/or Drains, Physical Assist, Teach-Back for Education FUNCTIONAL STATUS Activities of Daily Living Assist Level Additional Information Feeding Independent Grooming Independent Bathing Upper Body Set Up Bathing Lower Body Modified Independent, Additional Information using figure 4 technique Dressing Upper Body Independent Dressing Lower Body Modified Independent, Additional Information using figure 4 Toileting Modified Independent Mobility Assist Level Additional Information Bed Mobility Supine To Sit: Modified Independent Sit To Supine: Modified Independent Sit to Stand Modified Independent Stand to Sit Modified Independent Bed to Chair Toilet/Commode Shower Functional Mobility Supervision Functional Mobility Device: Cane GOALS Patient will demonstrate progress with self-care, cognitive and/or coping needs identified to allow safe discharge to home with available support and/or physical assistance. PLAN OT Frequency: Discontinue Therapy Services Reasons Therapy Services Discontinued: Goals met Treatment Interventions: Self Care/Home Management SIGNATURE: Gypsy Hwang OTR/L PATIENT NAME: Bee Harris DATE: November 17, 2024 TIME: 11:06 AM [facility] ANES POSTPROC EVALon 025 ANES POSTPROC EVAL HNO ID: [id number] Author: JOSE RAHMAN MD Service: Anesthesiology Author Type: Anesthesiologist Type: Anesthesia Postprocedure Evaluation Filed: 11/16/2024 13:18 Note Text: POST ANESTHESIA EVALUATION NOTE : 1965 Procedure Summary Date: 11/16/24 Room / Location: OR04 / OR Anesthesia Start: 42 Anesthesia Stop: 1023 Procedure: CERVICAL LAMINOPLASTY WITH DECOMPRESSION 2 OR MORE SEGMENTS (Neck) Diagnosis: Cervical spinal stenosis Cervical spondylosis with myelopathy Pre-op testing 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) Anemia following surgery (Cervical spinal stenosis [M48.02]) (Cervical spondylosis with myelopathy [M47.12]) (Pre-op testing [Z01.818]) (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 PACU/ICU Patient Condition: stable. Anticipated Disposition: phase 2 then home. Neurological Status: aware and responsive. Pulmonary Status: breathing comfortably on room air Airway Control: returned to baseline unsupported. Cardiovascular Status: stable. Pain Management: clinically adequate - multimodal analgesia pain management approach Postoperative Hydration: acceptable. Intraoperative Events: no significant anesthesia events Recommendation: continue current plan of care. Anesthesia Observations No Documentation SIGNATURE: Jose Rahman MD PATIENT NAME: Bee Harris DATE: November 16, 2024 TIME: 1:18 PM CSN: [id number] [facility] ANES PRE-OPon 11-16-2024 ANES PRE-OP HNO ID: [id number] Author: JOSE RAHMAN MD Service: Anesthesiology Author Type: Anesthesiologist Type: Anesthesia Preprocedure Evaluation Filed: 11/16/2024 07:01 Note Text: ANESTHESIOLOGY DAY OF SURGERY NOTE : 1965 Procedure Information Date/Time: 11/16/24729 Procedure: CERVICAL LAMINOPLASTY WITH DECOMPRESSION 2 OR MORE SEGMENTS (Neck) - C3-5 laminoplasty Location: OR04 / OR Surgeons: Jus Wisdom MD Estimated body mass index is 23.68 kg/m? as calculated from the following: Height as of 10/25/24: 177.8 cm (5' 10 ). Weight as of 10/25/24: 74.8 kg (165 lb). Most recent hematocrit and potassium results: Hematocrit 42.4 10/25/2024 Potassium 4.3 10/25/2024 Relevant Problems CARDIO (+) Essential hypertension PULMONARY (+) Current smoker I - PHYSICAL EVALUATION AIRWAY Patient intubated: No. Tracheostomy tube not present Mallampati: II. TM distance: >3 FB. Neck ROM: full ROM without neurological symptoms. Mouth opening: adequate. Short neck: no. Thick neck: no DENTAL Dental findings: edentulous. Additional exam findings: no II - ANESTHESIA PLAN ASA Score: 2 Anesthetic Plan: general Airway type: ETT NPO Status: adequate Beta Fritz Monitoring Plan Monitoring plan: Standard ASA. Post Procedure Analgesic Plan Postoperative analgesic plan: parenteral or oral opioids and multimodal analgesia. Informed Consent Anesthetic risks, benefits, alternatives, personnel and consent discussed: yes. Patient / Responsible Libertarian agrees to proceed: yes Patient / Surrogate agrees to blood products: yes DNR status not reviewed with patient and/or family prior to surgery. Significant changes in the patient condition since the History and Physical, not otherwise documented in primary service progress note: no. Potential Anesthesia issues that may suggest increased risk of complications or contraindication to planned procedure: none. Vitals Value Taken Time BP 119/77 11/16/2449 Pulse 58 11/16/2449 Resp 18 11/16/2449 Temp 36.4 ?C (97.5 ?F) 11/16/24 0649 SpO2 100 % 11/16/24648 Facility-Administered Medications as of 11/16/2024 Medication Dose Route Frequency lidocaine (PF) 10 mg/mL (1 %) 1-2 mg injection (XYLOCAINE) 0.1-0.2 mL INTRADERMAL PRN lactated ringers iv infusion 5-30 mL/hr INTRAVENOUS CONTINUOUS NaCl 0.9% iv flush bag 20 mL INTRAVENOUS PRN ceFAZolin iv piggyback 2 g in D5W (iso-osmotic) 100 mL (ANCEF) 2 g INTRAVENOUS Pre-Op Once [COMPLETED] acetaminophen 1,000 mg tab(s) (TYLENOL) 1,000 mg ORAL Pre-Op Once [COMPLETED] promethazine 12.5 mg tab(s) (PHENERGAN) 12.5 mg ORAL Pre-Op Once lactated ringers iv infusion 30 mL/hr INTRAVENOUS CONTINUOUS Outpatient Medications as of 11/16/2024 Medication Sig atorvastatin (LIPITOR) 40 mg tablet Take 40 mg by mouth once daily. cyanocobalamin (VITAMIN B-12) 1,000 mcg tab take 1 tablet (1,000 mcg total) by mouth in the morning HYDROcodone-Acetamino phen (NORCO) 7.5-325 mg per tablet Take 1 tablet by mouth. latanoprost (XALATAN) 0.005 % ophthalmic solution INSTILL ONE DROP IN EACH EYE BEFORE BED meloxicam (MOBIC) 15 mg tablet Take 15 mg by mouth. pregabalin (LYRICA) 75 mg capsule Take 75 mg by mouth. (Patient taking differently: Take 75 mg by mouth. 100 mg 3 times per day) venlafaxine ER (EFFEXOR XR) 37.5 mg 24 hr capsule Take 37.5 mg by mouth. buPROPion XL (WELLBUTRIN XL) 150 mg 24 hr tablet Take 150 mg by mouth. topiramate (TOPAMAX) 50 mg tablet Take 50 mg by mouth. naloxone 4 mg/actuation nasal spray (NARCAN) I have interviewed and examined the patient. I have reviewed the medical record and/or the pre-anesthesia evaluation, pertinent labs, and test results. This contains updated information obtained within 48 hours of Surgery/Procedure. SIGNATURE: Jose Rahman MD PATIENT NAME: Bee Harris DATE: November 16, 2024 TIME: 6:57 AM CSN: [id number] [facility] BRIEF OP NOTon 11-16-2024 BRIEF OP NOT HNO ID: [id number] Author: ELLIE RASHID MD Service: Neurosurgery Author Type: Fellow Type: Brief Op Note Filed: 11/16/2024 10:32 Note Text: SPINE SURGERY BRIEF OP NOTE PATIENT NAME: Bee Harris DOS: 11/16/2024 Preop Diagnosis: Cervical Myelopathy Postop Diagnosis: same Procedure(s): C3-C5 laminoplasty Attending Surgeon: Jus Wisdom MD Road Machine Runner(s): Ellie Rashid, PGY-6 Drains: HVAC x1 Specimens: none Complications: none EBL: 100cc Blood Products: none Disposition: extubate, to PACU Plan: - 24 hrs perioperative abx: ancef - No bending, twisting, heavy lifting >10lbs, no intentional chin to chest movements for 6 weeks - Brace: none - Mobilize with PT POD #1 - Please HOLD anticoagulation until POD #2 - Upright Xrs on POD #2 - CBC in AM - Pain: MMPR Dispo: Dc pending abx, mobilization with PT, clinical improvement and clearance by spine team. Ellie Rashid MD PGY-6 Spine Fellow [facility] CONSULTon 11-16-2024 CONSULT HNO ID: [id number] Author: KARINA WOODSON MD Service: General Internal Medicine Author Type: Physician Type: Consults Filed: 11/16/2024 16:01 Note Text: MEDICINE INITIAL CONSULT NOTE SERVICE DATE: 11/16/2024 SERVICE TIME: 3:57 PM REASON FOR CONSULT: Postop medical care REQUESTING PHYSICIAN: Artis PRIMARY CARE PHYSICIAN: Cris Singh DO Subjective Mr. Harris is a 59 year old male who presents for C3-C5 laminoplasty. I was asked to see the pt for post op medical care. Pt seen and chart reviewed. At this time, the patient reports postop pain. His history is notable for hypertension, current tobacco use and hyperlipidemia. Currently he denies shortness of breath. There is no chest pain or palpitations. History reviewed. No pertinent past medical history. PAST SURGICAL HISTORY Procedure Laterality Date COLON SURGERY HX History reviewed. No pertinent family history. Social History Tobacco Use Smoking status: Every Day Current packs/day: 1.00 Types: Cigarettes Smokeless tobacco: Never Vaping Use Vaping status: Never Used Substance Use Topics Alcohol use: Not Currently Drug use: Never atorvastatin (LIPITOR) 40 mg tablet, Take 40 mg by mouth once daily., Disp: , Rfl: , 11/15/2024 cyanocobalamin (VITAMIN B-12) 1,000 mcg tab, take 1 tablet (1,000 mcg total) by mouth in the morning, Disp: , Rfl: , 11/15/2024 HYDROcodone-Acetamino phen (NORCO) 7.5-325 mg per tablet, Take 1 tablet by mouth., Disp: , Rfl: , 11/15/2024 latanoprost (XALATAN) 0.005 % ophthalmic solution, INSTILL ONE DROP IN EACH EYE BEFORE BED, Disp: , Rfl: , Past Week meloxicam (MOBIC) 15 mg tablet, Take 15 mg by mouth., Disp: , Rfl: , Past Week pregabalin (LYRICA) 75 mg capsule, Take 75 mg by mouth. (Patient taking differently: Take 75 mg by mouth. 100 mg 3 times per day), Disp: , Rfl: , 11/15/2024 venlafaxine ER (EFFEXOR XR) 37.5 mg 24 hr capsule, Take 37.5 mg by mouth., Disp: , Rfl: , 11/15/2024 buPROPion XL (WELLBUTRIN XL) 150 mg 24 hr tablet, Take 150 mg by mouth., Disp: , Rfl: , 11/15/2024 topiramate (TOPAMAX) 50 mg tablet, Take 50 mg by mouth., Disp: , Rfl: , 11/15/2024 naloxone 4 mg/actuation nasal spray (NARCAN), , Disp: , Rfl: , Unknown Current Facility-Administered Medications Medication Dose Route Frequency pregabalin 100 mg cap(s) (LYRICA) 100 mg ORAL TID buPROPion XL 150 mg tab(s) (WELLBUTRIN XL) 150 mg ORAL DAILY venlafaxine ER 37.5 mg cap(s) (EFFEXOR XR) 37.5 mg ORAL DAILY [START ON 11/18/2024] heparin 5,000 Units injection 5,000 Units SUBCUTANEOUS q 12 H lactated ringers iv infusion 75 mL/hr INTRAVENOUS CONTINUOUS ceFAZolin iv piggyback 1 g in D5W (iso-osmotic) 50 mL (ANCEF) 1 g INTRAVENOUS q 8 HR keTORolac 30 mg injection (Toradol) 30 mg INTRAVENOUS q 6 H ondansetron 4 mg tab(s) (ZOFRAN) 4 mg ORAL q 6 H PRN Or ondansetron (PF) 4 mg injection (ZOFRAN) 4 mg INTRAVENOUS q 6 H PRN melatonin 3 mg tab(s) 3 mg ORAL DAILY (8 PM) [START ON 11/17/2024] docusate sodium 100 mg cap(s) (COLACE) 100 mg ORAL BID [START ON 11/17/2024] polyethylene glycol 3350 17 g packet 17 g ORAL DAILY PRN [START ON 11/18/2024] bisacodyl EC 10 mg tab(s) (DULCOLAX) 10 mg ORAL DAILY methocarbamol 750 mg tab(s) (ROBAXIN) 750 mg ORAL TID acetaminophen 1,000 mg tab(s) (TYLENOL) 1,000 mg ORAL q 6 H oxyCODONE IR 5-10 mg tab(s) (ROXICODONE) 5-10 mg ORAL q 4 H PRN morphine 2 mg injection 2 mg INTRAVENOUS q 2 H PRN Allergies As of Date: 10/11/2024 (No Known Allergies) Fully Assessed 10/11/2024 COMPLETE REVIEW OF SYSTEMS: GENERAL: No recent illness RESPIRATORY: Denies shortness of breath CARDIOVASCULAR: No chest pain or palpitations GI: No nausea, vomiting, or diarrhea : No dysuria Objective PHYSICAL EXAM: Physical Exam Performed: GENERAL: Alert, No Distress HEAD/SINUSES: No significant findings OROPHARYNX: Mucous membranes moist LUNGS: Clear CARDIAC: Rhythm: regular rate and rhythm ABDOMEN: Soft, nontender BP 149/80 Pulse 67 Temp (Src) 97 (Temporal) Resp 16 Ht 5' 10 (1.78m) Wt 169 lb (76.7kg) SpO2 98% BMI 24.25 kg/(m2). O2 Therapy: Room Air, Liters (Numeric Only): 6 DATA: Diagnostic tests reviewed for today's visit: No new labs Impression/Recommenda tions Principal Problem: Cervical spondylosis with myelopathy (POA: Yes) Assessment AND Plan: Status post surgery today. Patient is medically stable this time. Medical conditions include: History of tobacco use. Encourage smoking cessation. Continue with incentive spirometry. Hypertension. Will monitor BP throughout hospital stay. Hyperlipidemia. Continue atorvastatin. Will follow. Thanks. Medication and Non-Pharmacologic VTE Prophylaxis/Anticoagu lants Anticoagulant AND Antiplatelet Medications (From admission, onward) Start Dose Route Frequency Last Action Ordered Stop 11/18/24 0900 heparin 5,000 Units injection (Surgical Risk Categories) 5,000 Units SUBCUTANEOUS EVERY 12 HOURS Ordered 11/16/24 11 (more content not included)... [facility] OPERATIVE NOon 11-16-2024 OPERATIVE NO HNO ID: [id number] Author: JUS WISDOM MD Service: Neurosurgery Author Type: Physician Type: Operative Report Filed: 11/16/2024 16:21 Note Text: Operative NOTE LOG ID: [id number] Surgery/Procedure Date: 11/16/2024 Incision/Procedure Start Time: 8:26 AM Incision Close/Procedure End Time: 9:57 AM Surgeon(s)/Procedural ist(s) and Road Machine Runner(s): Surgeons and Role: * Jus Wisdom MD - Primary * Ellie Rashid MD - Fellow Pre-Op/Pre-Procedure Diagnosis: cervical myelopathy Post-Op/Post-Procedur e Diagnosis: same Procedure(s): Cervical laminoplasty C3-5 Anesthesia: General Estimated Blood Loss: 100 mls Specimens Removed: * No specimens in log * Drain: Implant Name Type Inv. Item Serial No. Telephone Clerks Supervisor Lot No. LRB No. Used Action BIT CANOPY 1.4MM DRILL - [id number] Bit BIT CANOPY 1.4MM DRILL [employer] N/A 1 Non-Implant SCREW CANOPY 2.6MM 4MM BONE SELF DRILL LAMINOPLASTY SPINE - [id number] Screw SCREW CANOPY 2.6MM 4MM BONE SELF DRILL LAMINOPLASTY SPINE [employer] N/A 6 Implanted CANOPY 2.6MM SCREW SELF-DRILLING 6MM Screw [employer] N/A 3 Implanted PLATE CANOPY 7MM BONE SHELF INLINE SPINE Plate [employer] N/A 3 Implanted Complications: None Indications for procedure: This is a pleasant 59-year-old male who presented to me with balance issues and fine motor tasks issues. Cervical MRI revealed severe stenosis from C3-C5. The nonoperative and operative treatment options were discussed at great length with the patient. The patient elected to move forward with surgery. We discussed the various surgical options. We recommended cervical laminoplasty C3-C5. The risks and benefits of the procedure were discussed at great length with the patient. No guarantees were offered or implied during the discussion regarding the outcome of the procedure. The patient expressed understanding of these risks and informed consent was obtained. Details of procedure: Prior to induction of anesthesia, an audible huddle was performed confirming site of operation, planned operation, need for antibiotics, and other anticipated needs with the patient, surgical, nursing, and anesthesia teams. All agreed to proceed. the patient was placed in a Khan librarian head, positioned prone and fixed to the Khan with attention to maintaining venous drainage. Neck was in a position of neutrality. The surgical region was prepped and draped in the usual sterile fashion. Prior to starting the operation the surgical team paused and performed an audible timeout. IV Antibiotics were given. The surgical team, nursing, and anesthesia personnel agreed with the procedure to be performed. A midline incision was made using a #10 blade scalpel. Hemostasis was achieved using bipolar electrocautery. Using a combination of monopolar electrocautery and blunt dissection, the subcutaneous tissue and fascia were incised. The musculture was dissected free of the oseous structures using blunt dissection and monopolar electrocautery. Hemostasis was achieved and the C2/3joint were identified with instruments and confirmed utilizing intraoperative cross-table x-ray. Localization ensued via [facility] guidelines. A high speed air drill was utilized to thin create a unicortical trough on the lateral aspect of the laminae of C3-5 on the left side and later a bicortical cut on the right. Kerrison rongeurs were utilized to complete the cut on the right and right side was raised. At this point, Globus plates were places the right at C3, C4 and C5 Screws were placed to fix the plates to the laminae and lateral mass. The ligamentum was removed over this region of the spine to expose the dura. The dura was intact and no CSF encountered. There appeared to be good decompression of the spine. The wound was irrigated, hemostasis was achieved. Xrays confirmed adequate placement of hardware. A drain was placed deep to fascia. Vancomycin powder was placed in the wound, and it was closed in a layer fashion using 1, 2-0 and cristal for skin. The patient was flipped supine on the stretcher, Khan removed and extubated without issues. Prior to leaving the operative theater, he was moving all 4 limbs antigravity. I was present ans scrubbed for the entire case. Dr. Rachid MD performed the role of carpenter assistant as no qualified residents were available. He performed surgical exposure, assisted in decompression and instrumentation, and performed wound closure under direct supervision by primary surgeon Jus Wisdom MD . Dr. Jus Wisdom MD was scrubbed in an performed all critical portions of the procedure and was immediately available in the immediate pre-operative and post-operative period. Jus Wisdom MD Spine Surgery. [facility] XR CERVICAL SPECIFY 1Von XR CERVICAL SPECIFY 1V * * *Final Report * * * DATE OF EXAM: Nov 16 2024 9:42AM [id number] [id number] - XR CERVICAL SPECIFY 1V / PROCEDURE REASON: Cervical spinal stenosis * * * * Physician Interpretation * * * * Indication: Cervical spinal stenosis X-ray cervical spine 11/16/2024 at 0845 hours IMPRESSION: Counting reference: Craniocervical junction. Anatomic Variants: None. Lateral intraoperative x-ray of the cervical spine is performed. Hardware is noted overlying the lamina of C3, C4 and C5. Chemistry Technician: [facility] Transcribe Date/Time: Nov 17 2024 3:13P Dictated by : AISSATOU SCOTT MD This examination was interpreted and the report reviewed and electronically signed by: AISSATOU SCOTT MD on Nov 17 2024 3:14PM EST [id number] [facility] XR CERVICAL SPECIFY 1V * * *Final Report * * * DATE OF EXAM: Nov 16 [...] responsible surgeon at the time of interpretation. IMPRESSION: OPERATIVE ASSESSMENT COMMUNICATION: Localization level(s) confirmed with: Dr. Wisdom on 11/16/2024 at 0849 hours, via phone and Skype during the surgical procedure. Chemistry Technician: [facility] Transcribe Date/Time: Nov 16 2024 8:48A Dictated by : TAMIR FORD MD This examination was interpreted and the report reviewed and electronically signed by: TAMIR FORD MD on Nov 16 2024 8:50AM EST [id number] [facility] XR VERIFY LEVEL [id number] 11-16-2024 XR VERIFY LEVEL C-[id number]-NB * * *Final Report* * * DATE [...] responsible surgeon at the time of interpretation. IMPRESSION: OPERATIVE ASSESSMENT COMMUNICATION: Localization level(s) confirmed with: Dr. Wisdom on 11/16/2024 at 0849 hours, via phone and Skype during the surgical procedure. Chemistry Technician: [facility] Transcribe Date/Time: Nov 16 2024 8:48A Dictated by : TAMIR FORD MD This examination was interpreted and the report reviewed and electronically signed by: TAMIR FORD MD on Nov 16 2024 8:50AM EST [id number] N [facility] 11-14-2024 CNNURSE Nurse Visit (SPNSMN) BEE HARRIS ([id number]) 1965 M Date Time Provider Department 11/14/24 3:00 PM DEVAUGHN VAZQUEZ During your visit today, we recorded the following information about you: Devaughn Vazquez RN 11/14/2024 9:33 AM Signed Neuro SPINE CARE COORDINATION PRE-OP PHONE VISIT Met with patient for pre op education. Given both written and verbal instructions re : Skin prep, wound care, pain management and post op restrictions. Provided to patient: [facility] Surgery Guide, skin prep supplies, Spine Surgery Pre/post op education packet. Yes Reviewed with patient to report to desk @ Reviewed with the patient that KAREN will call to review time Patient aware eat nothing after midnight prior to surgery, clear liquids only until 2 hours before report time. Yes. Patient aware surgery will be INPATIENT. Discussed care post discharge : Home Health Care ( PT-OT-nurse). Does patient have transportation to and from surgery ? Yes. Falls Education provided ? Yes Nasal swab obtained ? Yes. Patient instructed in mupirocin treatment : negative . Questions answered and patient voice(s) understanding via teach back. Physical Therapy : YES Additional Comments : Post -op Support home alone- pt requests Home care Devaughn Vazquez RN Referring Provider: JUS WISDOM [[id number]] Allergies As of Date: 11/14/2024 (No Known Allergies) Date Reviewed: 11/09/2024 Reviewed by: Ernie Rankin APRN.CUPOLA MAN - Fully Assessed Primary Visit Diagnosis:Spinal stenosis in cervical region [M48.02] Prescriptions as of 11/14/2024 - atorvastatin (LIPITOR) 40 mg tablet Take 40 mg by mouth once daily. - cyanocobalamin (VITAMIN B-12) 1,000 mcg tab take 1 tablet (1,000 mcg total) by mouth in the morning - HYDROcodone-Acetamino phen (NORCO) 7.5-325 mg per tablet Take 1 tablet by mouth. - latanoprost (XALATAN) 0.005 % ophthalmic solution INSTILL ONE DROP IN EACH EYE BEFORE BED - meloxicam (MOBIC) 15 mg tablet Take 15 mg by mouth. - pregabalin (LYRICA) 75 mg capsule Take 75 mg by mouth. - venlafaxine ER (EFFEXOR XR) 37.5 mg 24 hr capsule Take 37.5 mg by mouth. - buPROPion XL (WELLBUTRIN XL) 150 mg 24 hr tablet Take 150 mg by mouth. - naloxone 4 mg/actuation nasal spray (NARCAN) PLEASE SEE ATTACHED FOR DETAILED DIRECTIONS - topiramate (TOPAMAX) 50 mg tablet Take 50 mg by mouth. Problem List As Of Date 11/14/2024 Noted Resolved Acute blood loss anemia [D62] 06/29/2022 Current smoker [F17.200] 08/21/2022 Depression [F32.A] 04/29/2024 Diverticulitis of colon with perforation [K57.2*08/21/2022 Essential hypertension [I10] 08/21/2022 History of colostomy reversal [Z98.890] 10/16/2020 Hyperlipidemia [E78.5] 08/21/2022 Multiple fractures of ribs, left side, initial *06/29/2022 Oropharyngeal dysphagia [R13.12] 06/29/2022 Perforated diverticulum [K57.80] 04/23/2020 Traumatic brain injury (HCC) [S06.9XAA] 02/15/2024 Encounter Status:Closed by DEVAUGHN VAZQUEZ on 11/14/24 [facility] 11-01-2024 CHARLI Telephone (SPNSMN) BEE HARRIS ([id number]) 1965 M Date Time Provider Department 11/01/24 JUS WISDOM During your visit today, we recorded the following information about you: Devaughn Vazquez, JUANITA 11/01/2024 3:58 PM Signed Neuro SPINE CARE COORDINATION QUICK NOTE Call to the pt and he is not interested in sooner OR date at this time. Pt currently scheduled for 11-16-[address] Artis Mcknight Chiropractor AssistantErendira 11/07/2024 9:16 AM Signed Patient is calling back to speak with the nurse pertaining to below message, upcoming surgery call back [phone] Devaughn Vazquez RN 11/07/2024 11:00 AM Addendum Neuro SPINE CARE COORDINATION QUICK NOTE Call to the pt and AVS reviewed regarding what to take day of OR and what to hold.All questions have been addressed. Pt has been told time for OR He will arrange transportation. Petros Pollard 11/11/2024 12:49 PM Signed Pt called requesting call back from RN. Devaughn Vazquez RN 11/11/2024 1:06 PM Signed Neuro SPINE CARE COORDINATION QUICK NOTE Cervical laminoplasty scheduled for 11-16-24 All pre op questions have been addressed. No further questions. Umu Munoz 11/15/2024 11:48 AM Signed Pt called; asking to speak to RN about surgery tomorrow; he had some questions and would not provide to me....says the RN told him to call if he had any questions and that's what he's doing. Devaughn Vazquez RN 11/15/2024 12:45 PM Signed Neuro SPINE CARE COORDINATION QUICK NOTE Call to the pt. All pre op questions have been addressed. Allergies As of Date: 11/01/2024 (No Known Allergies) Date Reviewed: 10/25/2024 Reviewed by: Justin Boo APRN.CUPOLA MAN - Fully Assessed Reason for Visit: Patient Question [2577] Prescriptions as of 11/15/2024 - atorvastatin (LIPITOR) 40 mg tablet Take 40 mg by mouth once daily. - cyanocobalamin (VITAMIN B-12) 1,000 mcg tab take 1 tablet (1,000 mcg total) by mouth in the morning - HYDROcodone-Acetamino phen (NORCO) 7.5-325 mg per tablet Take 1 tablet by mouth. - latanoprost (XALATAN) 0.005 % ophthalmic solution INSTILL ONE DROP IN EACH EYE BEFORE BED - meloxicam (MOBIC) 15 mg tablet Take 15 mg by mouth. - pregabalin (LYRICA) 75 mg capsule Take 75 mg by mouth. - venlafaxine ER (EFFEXOR XR) 37.5 mg 24 hr capsule Take 37.5 mg by mouth. - buPROPion XL (WELLBUTRIN XL) 150 mg 24 hr tablet Take 150 mg by mouth. - naloxone 4 mg/actuation nasal spray (NARCAN) PLEASE SEE ATTACHED FOR DETAILED DIRECTIONS - topiramate (TOPAMAX) 50 mg tablet Take 50 mg by mouth. Problem List As Of Date 11/01/2024 Noted Resolved Acute blood loss anemia [D62] 06/29/2022 Current smoker [F17.200] 08/21/2022 Depression [F32.A] 04/29/2024 Diverticulitis of colon with perforation [K57.2*08/21/2022 Essential hypertension [I10] 08/21/2022 History of colostomy reversal [Z98.890] 10/16/2020 Hyperlipidemia [E78.5] 08/21/2022 Multiple fractures of ribs, left side, initial *06/29/2022 Oropharyngeal dysphagia [R13.12] 06/29/2022 Perforated diverticulum [K57.80] 04/23/2020 Traumatic brain injury (HCC) [S06.9XAA] 02/15/2024 Encounter Status:Closed by DEVAUGHN VAZQUEZ on 11/01/24 Normal [facility] CBC W Auto Differential pane l (Bld)on 10-25-2024 Basophils (Bld) [#/Vol] 0.08 10*3/uL Normal <0.11 [facility] Comment on above: Order Comment: Speci men Type: BLOOD SPECIMEN Ordering Facility: [facility] Address: [address] [place] [address] JUNIOR, [place] [address] Performed By: #### 2 276-4, 90891-3 #### [facility] CLIA [id number] [address] [place] [address] [place] Basophils/100 WBC (Bld) 0.9 % Normal [facility] Comment on above: Order Comment: Speci men Type: BLOOD SPECIMEN Ordering Facility: [facility] Address: [address] [place] [address] Performed By: #### 2 276-4, 06081-0 #### [facility] CLIA [id number] [address] [place] [address] [place] Differential cell count method Nom (Bld) Auto Normal [facility] Comment on above: Order Comment: Speci men Type: BLOOD SPECIMEN Ordering Facility: [facility] Address: [address] [place] [address] Performed By: #### 2 276-4, 73356-0 #### [facility] CLIA [id number] [address] [place] [address] [place] Eosinophils (Bld) [#/Vol] 0.16 10*3/uL Normal <0.46 [facility] Comment on above: Order Comment: Speci men Type: BLOOD SPECIMEN Ordering Facility: [facility] Address: [address] [place] [address] Performed By: #### 2 276-4, 35862-3 #### [facility] CLIA [id number] [address] [place] [address] [place] Eosinophils/100 WBC (Bld) 1.7 % Normal [facility] Comment on above: Order Comment: Speci men Type: BLOOD SPECIMEN Ordering Facility: [facility] Address: [address] [place] [address] Performed By: #### 2 276-4, 78326-4 #### [facility] CLIA [id number] [address] [place] [address] [place] Erythrocyte distribution width (RBC) [Ratio] 13.9 % Normal 11.5-15.0 [facility] Comment on above: Order Comment: Speci men Type: BLOOD SPECIMEN Ordering Facility: [facility] Address: [address] [place] [address] Performed By: #### 2 276-4, 83670-1 #### [facility] CLIA [id number] [address] [place] [address] [place] Hematocrit (Bld) [Volume fraction] 42.4 % Normal 39.0-51.0 [facility] Comment on above: Order Comment: Speci men Type: BLOOD SPECIMEN Ordering Facility: [facility] Address: [address] [place] [address] Performed By: #### 2 276-4, 34484-6 #### [facility] CLIA [id number] [address] [place] [address] [place] Hemoglobin (Bld) [Mass/Vol] 14.1 g/dL Normal 13.0-17.0 [facility] Comment on above: Order Comment: Speci men Type: BLOOD SPECIMEN Ordering Facility: [facility] Address: [address] [place] [address] Performed By: #### 2 276-4, 69712-3 #### [facility] CLIA [id number] [address] [place] [address] [place] Immature granulocytes (Bld) [#/Vol] 10*3/uL Normal <0.10 [facility] Comment on above: Order Comment: Speci men Type: BLOOD SPECIMEN Ordering Facility: [facility] Address: [address] [place] [address] Performed By: #### 2 276-4, 97083-0 #### [facility] CLIA [id number] [address] [place] [address] [place] Immature granulocytes/100 WBC (Bld) 0.2 % Normal [facility] Comment on above: Order Comment: Speci men Type: BLOOD SPECIMEN Ordering Facility: [facility] Address: [address] [place] [address] Performed By: #### 2 276-4, 93684-3 #### [facility] CLIA [id number] [address] [place] [address] [place] Lymphocytes (Bld) [#/Vol] 2.35 10*3/uL Normal 1.00-4.00 [facility] Comment on above: Order Comment: Speci men Type: BLOOD SPECIMEN Ordering Facility: [facility] Address: [address] [place] [address] Performed By: #### 2 276-4, 74070-2 #### [facility] CLIA [id number] [address] [place] [address] [place] Lymphocytes/100 WBC (Bld) 25.5 % Normal [facility] Comment on above: Order Comment: Speci men Type: BLOOD SPECIMEN Ordering Facility: [facility] Address: [address] [place] [address] Performed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 08/21/2022 Depression [F32.A] 04/29/2024 Diverticulitis of colon with perforation [K57.2*08/21/2022 Essential hypertension [I10] 08/21/2022 History of colostomy reversal [Z98.890] 10/16/2020 Hyperlipidemia [E78.5] 08/21/2022 Multiple fractures of ribs, left side, initial *06/29/2022 Oropharyngeal dysphagia [R13.12] 06/29/2022 Perforated diverticulum [K57.80] 04/23/2020 Traumatic brain injury (HCC) [S06.9XAA] 02/15/2024 Encounter Status:Closed by DEVAUGHN VAZQUEZ on 10/18/24 [facility] [place] 10-12-2024 [facility] Telephone (NIQ) BEE HARRIS ([id number]) 1965 M Date Time Provider Department 10/12/24 JUS WISDOM NIQ During your visit today, we recorded the following information about you: Erendira Tay 10/12/2024 1:05 PM Signed Call received for Jus Wisdom MD regarding Bee Harris. Caller: Cassi with [facility] Patient Identified by Name and : Bee Harris 1965 Reason for Call: Cassi would like to know if patient can receive a sacroiliac injection Cassi states patient informed her that he has a upcoming surgery and just need confirmation if patient can proceed with procedure Is there any additional information the provider should know? No Last Office Visit: 10/11/2024 Next scheduled appointment: 10/25/2024 Best number to reach caller: Cassi [phone] Best time to reach caller: 8 am till 4 pm Is it OK to leave a detailed voice message? Yes Erendira Mcknight Chiropractor Assistant Devaughn Vazquez RN 10/13/2024 8:24 AM Addendum Neuro SPINE CARE COORDINATION QUICK NOTE Pt pending C3-5 laminoplasty on 11-16-24 PM would like to proceed with SI joint injection Will review with team- as per FLY WORKER no contraindications to proceeding with SI joint injection. Call to PM and update provided to Cassi (RN) Allergies As of Date: 10/12/2024 (No Known Allergies) Date Reviewed: 10/11/2024 Reviewed by: Elosie Edgar OCCA - Fully Assessed Reason for Visit: Patient Question [5047] Prescriptions as of 10/13/2024 - atorvastatin (LIPITOR) 40 mg tablet Take 40 mg by mouth. - cyanocobalamin (VITAMIN B-12) 1,000 mcg tab take 1 tablet (1,000 mcg total) by mouth in the morning - HYDROcodone-Acetamino phen (NORCO) 7.5-325 mg per tablet Take 1 tablet by mouth. - latanoprost (XALATAN) 0.005 % ophthalmic solution INSTILL ONE DROP IN EACH EYE BEFORE BED - meloxicam (MOBIC) 15 mg tablet Take 15 mg by mouth. - pregabalin (LYRICA) 75 mg capsule Take 75 mg by mouth. - venlafaxine ER (EFFEXOR XR) 37.5 mg 24 hr capsule Take 37.5 mg by mouth. - buPROPion XL (WELLBUTRIN XL) 150 mg 24 hr tablet Take 150 mg by mouth. - naloxone 4 mg/actuation nasal spray (NARCAN) PLEASE SEE ATTACHED FOR DETAILED DIRECTIONS - topiramate (TOPAMAX) 50 mg tablet Take 50 mg by mouth. Problem List As Of Date 10/12/2024 Noted Resolved Acute blood loss anemia [D62] 06/29/2022 Current smoker [F17.200] 08/21/2022 Depression [F32.A] 04/29/2024 Diverticulitis of colon with perforation [K57.2*08/21/2022 Essential hypertension [I10] 08/21/2022 History of colostomy reversal [Z98.890] 10/16/2020 Hyperlipidemia [E78.5] 08/21/2022 Multiple fractures of ribs, left side, initial *06/29/2022 Oropharyngeal dysphagia [R13.12] 06/29/2022 Perforated diverticulum [K57.80] 04/23/2020 Traumatic brain injury (HCC) [S06.9XAA] 02/15/2024 Encounter Status:Closed by DEVAUGHN VAZQUEZ on 10/13/24 [facility] CNOVon 10-11-2024 CNOV Office Visit ([facility] ) KIMBERLYBEE Oneal ([id number]) 1965 M Date Time Provider Department 10/11/24 11:00 AM JUS WISDOM [facility] During your visit today, we recorded the following information about you: Pulse Blood pressure 67/minute 133/82 Jus Wisdom MD 10/11/2024 11:08 AM Signed SPINE SURGERY NEW PATIENT PCP: Cris Singh [...] BICEPS TRICEPS DELTS 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 Bee Harris is clinically indicated and wishes to pursue Cervical Laminoplasty at C3-C5 The risks, benefits, and anticipated outcomes of the procedure/treatment/t est, the alternatives to the procedure/treatment/t est and their risks and benefits, and the roles and tasks of the personnel to be involved were discussed with the patient or the patient?s personal accounts receivable representative. Discussed goals of surgery Halt progression [...] Conservative modalities have been trialed in a meanin (more content not included)... Normal [facility] BEE [facility] ([id number]) 1965 M Date Time Provider Department 10/11/24 JUS WISDOM NSNJ During your visit today, we recorded the following information about you: Devaughn Vazquez RN 10/11/2024 4:11 PM Signed Neuro SPINE CARE COORDINATION SURGERY SCHEDULING Patient [...] of non-home discharge disposition : Low [0] Devaughn Vazquez RN Allergies As of Date: 10/11/2024 (No Known Allergies) Date Reviewed: 10/11/2024 Reviewed by: Eloise Edgar OCCA - Fully Assessed Prescriptions as of 10/11/2024 - atorvastatin (LIPITOR) 40 mg tablet Take 40 mg by mouth. - cyanocobalamin (VITAMIN B-12) 1,000 mcg tab take 1 tablet (1,000 mcg total) by mouth in the morning - HYDROcodone-Acetamino phen (NORCO) 7.5-325 mg per tablet Take 1 tablet by mouth. - latanoprost (XALATAN) 0.005 % ophthalmic solution INSTILL ONE DROP IN EACH EYE BEFORE BED - meloxicam (MOBIC) 15 mg tablet Take 15 mg by mouth. - pregabalin (LYRICA) 75 mg capsule Take 75 mg by mouth. - venlafaxine ER (EFFEXOR XR) 37.5 mg 24 hr capsule Take 37.5 mg by mouth. - buPROPion XL (WELLBUTRIN XL) 150 mg 24 hr tablet Take 150 mg by mouth. - naloxone 4 mg/actuation nasal spray (NARCAN) PLEASE SEE ATTACHED FOR DETAILED DIRECTIONS - topiramate (TOPAMAX) 50 mg tablet Take 50 mg by mouth. Problem List As Of Date 10/11/2024 Noted Resolved Acute blood loss anemia [D62] 06/29/2022 Current smoker [F17.200] 08/21/2022 Depression [F32.A] 04/29/2024 Diverticulitis of colon with perforation [K57.2*08/21/2022 Essential hypertension [I10] 08/21/2022 History of colostomy reversal [Z98.890] 10/16/2020 Hyperlipidemia [E78.5] 08/21/2022 Multiple fractures of ribs, left side, initial *06/29/2022 Oropharyngeal dysphagia [R13.12] 06/29/2022 Perforated diverticulum [K57.80] 04/23/2020 Traumatic brain injury (HCC) [S06.9XAA] 02/15/2024 Encounter Status:Closed by DEVAUGHN VAZQUEZ on 10/11/24 Normal [facility] CT CERVICAL SPINE WO IVCONon 10-11-2024 CT CERVICAL SPINE WO IVCON * * *Final Report* * * DATE OF EXAM: Oct 11 2024 9:26AM [facility] [place] 0505 - CT CERVICAL SPINE WO IVCON [...] Counting reference: Craniocervical junction. Anatomic Variants: None. Body Designer (topogram) images: Unremarkable. Alignment: Cervical dextrocurvature centered [...] foraminal stenosis. RIGHT neural foramen is patent. IMPRESSION: Multilevel cervical spondylosis as described, not significantly changed from 06/23/2024. Up to moderate canal stenosis at C3-4 and C4-5. Scattered high-grade foraminal stenoses as described. Ovoid hyperdensity along the LEFT floor of mouth most likely corresponds to chewing gum. Anatomic Variant: None. Assume 7 cervical vertebrae with counting from the craniocervical junction. Chemistry Technician: [facility] Transcribe Date/Time: Oct 11 2024 11:12A Dictated by : ERROL INGRAM MD This examination was interpreted and the report reviewed and electronically signed by: ERROL INGRAM MD on Oct 11 2024 11:23AM EST [id number] Normal [facility] CT Cervical spine WO contras ton 10-11-2024 IMPRESSION: Multilevel cervical spondylosis as described, not significantly changed from 06/23/2024. Up to moderate canal stenosis at C3-4 and C4-5. Scattered high-grade foraminal stenoses as described. Ovoid hyperdensity along the LEFT floor of mouth most likely corresponds to chewing gum. Anatomic Variant: None. Assume 7 cervical vertebrae with counting from the craniocervical junction. Chemistry Technician: [facility] Transcribe Date/Time: Oct 11 2024 11:12A Dictated by : ERROL INGRAM MD This examination was interpreted and the report reviewed and electronically signed by: ERROL INGRAM MD on Oct 11 2024 11:23AM [facility] DIVISION OF RADIOLOGY * * *Final Report* * * DATE OF EXAM: Oct 11 2024 9:26AM [facility] [place] 0505 - CT CERVICAL SPINE WO IVCON [...] Counting reference: Craniocervical junction. Anatomic Variants: None. Body Designer (topogram) images: Unremarkable. Alignment: Cervical dextrocurvature centered [...] foramen is patent. DIVISION OF RADIOLOGY Provider, [facility] - 10/11/2024 * * *Final Report* * * DATE OF EXAM: Oct 11 2024 9:26AM [facility] [place] 0505 - CT CERVICAL SPINE WO IVCON [...] Counting reference: Craniocervical junction. Anatomic Variants: None. Body Designer (topogram) images: Unremarkable. Alignment: Cervical dextrocurvature centered [...] vertebrae with counting from the craniocervical junction. Chemistry Technician: [facility] Transcribe Date/Time: Oct 11 2024 11:12A Dictated by : ERROL INGRAM MD This examination was interpreted and the report reviewed and electronically signed by: ERROL INGRAM MD on Oct 11 2024 11:23AM EST [facility] Radiology Study observation (narrative) [facility] CT Cervical spine WO contras tOrdered By: [facility] Provider on 10-11-2024 [facility] CNOVon 08-25-2024 CNOV Office Visit ([facility]NS[facility] ) BEE HARRIS ([id number]) 1965 M Date Time Provider Department 08/25/24 1:30 PM ERNIE RANKIN During your visit today, we recorded the following information about you: Pulse Blood pressure 66/minute 129/73 Ernie Rankin APRN.CUPOLA MAN 08/26/2024 1:47 PM Signed SPINE SURGERY NEW [...] - 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 HYDROcodone-Acetamino phen (NORCO) 7.5-325 mg per tablet Take 1 [...] Sitting, BP (more content not included)... Normal [facility] No Panel Informationon 08-25 IMPRESSION: Degenerative changes as described. Chemistry Technician: LIANA Transcribe Date/Time: Aug 25 2024 2:15P Dictated by : BRANDO HUIZAR MD This examination was interpreted and the report reviewed and electronically signed by: BRANDO HUIZAR MD on Aug 25 2024 2:16PM [facility] DIVISION OF RADIOLOGY No Panel InformationOrdered By: [facility]cf Provider on 08-25-2024 [facility] XR CERV OTHER 4V AP/LAT/FLX/ EXTon 08-25-2024 [...] are intact. [facility] DIVISION OF RADIOLOGY Provider, [facility] - 08/25/2024 * * *Final Report* * [...] COMBINED IMPRESSION IMPRESSION: Degenerative changes as described. Chemistry Technician: [facility] Transcribe Date/Time: Aug 25 2024 2:15P Dictated by : BRANDO HUIZAR MD This examination was interpreted and the report reviewed and electronically signed by: BRANDO HUIZAR MD on Aug 25 2024 2:16PM EST [facility] Radiology Study observation (narrative) [facility] XR CERVICAL 4V AP/LAT/FLX/EX Ton 08-25-2024 [...] intact. COMBINED IMPRESSION: Degenerative changes as described. Chemistry Technician: LIANA Transcribe Date/Time: Aug 25 2024 2:15P Dictated by : BRANDO HUIZAR MD This examination was interpreted and the report reviewed and electronically signed by: BRANDO HUIZAR MD on Aug 25 2024 2:16PM EST [id number] Normal [facility] XR LUMBAR 4V AP/LAT/ FLEX/EX Ton [...] intact. COMBINED IMPRESSION: Degenerative changes as described. Chemistry Technician: LIANA Transcribe Date/Time: Aug 25 2024 2:15P Dictated by : BRANDO HUIZAR MD This examination was interpreted and the report reviewed and electronically signed by: BRANDO HUIZAR MD on Aug 25 2024 2:16PM EST [id number] Normal [facility] XR Lumbar spine Views W flex [...] are intact. [facility] DIVISION OF RADIOLOGY Provider, [facility] - 08/25/2024 * * *Final Report* * [...] COMBINED IMPRESSION IMPRESSION: Degenerative changes as described. Chemistry [facility] Transcribe Date/Time: Aug 25 2024 2:15P Dictated by : BRANDO HUIZAR MD This examination was interpreted and the report reviewed and electronically signed by: BRANDO HUIZAR MD on Aug 25 2024 2:16PM EST [facility] Radiology Study observation (narrative) [facility] MR BRAIN W AND WO CONTRAST [...] MRI B rain & IAC W/WO at [facility] acute hospital. Please call patient to schedule. Auditory function testson Right Ear: Mild to moderate sensorineural hearing loss above 2K Hz. Left Ear: Mild to moderate sensorineural hearing loss above 1K Hz. [facility] EMG 1 Extremeityon Very mild C8 radiculopathy on the right Mild carpal tunnel syndrome on the right No clear explanation for right shoulder pain [facility] NVC 5-6 Nerveson 05-10-2024 Very mild C8 radiculopathy on the right Mild carpal tunnel syndrome on the right No clear explanation for right shoulder pain [facility] Refillon 03-24-2024 Refill [id number] Bee Harris 1965 M Date Provider Department Center 03/24/2024 [id number]-QKJJGWGAALONDRA ALFARO INT MED Comprehensiv Family History Problem Relation Age of Onset Diabetes Mother Lung cancer Mother Kidney failure Mother Heart disease Father Other Father Family Status - Relation Status Age at Mother Father Reason for Visit and Comments: Med Refill [[id number]] Normal [facility] 36on 02-23-2024 36 Refill request for Requested [...] Perforated diverticulum Purpura (CMS/HCC) Urinary retention Normal [facility] Refillon 02-22-2024 Refill [id number] Bee Harris 1965 M Date Provider Department Center 02/22/2024 28936-FYKVJOARALONDAR HOLMAN INT MED Comprehensiv Family History Problem Relation Age of Onset Diabetes Mother Lung cancer Mother Kidney failure Mother Heart disease Father Other Father Family Status - Relation Status Age at Mother Father Reason for Visit and Comments: Med Refill [[id number]] Normal [facility] XR pre/post mri xrayon 02-17 XR pre/post mri xray [facility] Main [address] [address] MRI Report Signed Patient: Bee Harris MR#: [id number] : 1965 Acct:[id number] Age/Sex: 58 / M ADM Date: 02/18/24 Loc: ICMR Room: Type: REG CLI Attending Dr: Deanna Mejia DO Copies to: Deanna Mejia DO Ordering Provider: Deanna Mejia DO Date of Service: 02/18/24 MR/MR lumbar spine wo con: [id number] ([id number]) XR/XR pre/post mri xray: LUMBAR PRES MR [...] are noted as above. Impression dictated by: Adilson Trinidad M.D.02/18/2024 4:45 PM Dictation Location: [place] [address] Transcribed By: [facility] 02/18/24 1645 Dictated By: Adilson Trinidad II, MD 02/18/24 1628 Signed By: 02/18/24 1645 Normal [facility] MR BRAIN WO CONTon MR [...] Maurer MD on 12/23/2023 9:31 AM Normal [facility] US ABDOMEN LMTDon 12-23-2023 US ABDOMEN [...] for provided patient age. No visualized ascites. _ IMPRESSION: 1. Mild dilatation common duct measuring 8 mm without intrahepatic biliary dilatation. Findings of uncertain clinical significance, if there is concern for possible obstructive picture please correlate with laboratory values. This may be further evaluated with MRCP as clinically warranted. 2. No convincing evidence of chronic hepatocellular disease. Finalized by Juan Carlos Chopra MD on 12/23/2023 1:10 PM Normal [facility] CBC AND AUTO DIFFon 12-07-19 ABSOLUTE BASOPHIL 0.1 X10E9/L Normal 0.0-0.2 [facility] Comment on above: Performed By: #### C TEJAS, 02605-9, TSHR, CBCA, 2132-04 #### [facility] ([id number]) [address], [address] [place] [address] ABSOLUTE NEUTROPHIL 3.2 X10E9/L Normal 1.5-6.6 [facility] Comment on above: Performed By: #### C TEJAS, 24037-2, TSHR, CBCA, 2132-04 #### [facility] ([id number]) [address], [address] [place] [address] Basophils/100 WBC (Bld) 0.9 % Normal [facility] Comment on above: Performed By: #### C TEJAS, 93045-0, TSHR, CBCA, 2132-04 #### [facility] ([id number]) [address], [address] [place] [address] Eosinophils (Bld) [#/Vol] 0.0 10*3/uL Normal 0.0-0.4 [facility] Comment on above: Performed By: #### C TEJAS, 75501-6, TSHR, CBCA, 2132-04 #### [facility] ([id number]) [address] [place] [address] Eosinophils/100 WBC (Bld) 0.7 % Normal [facility] Comment on above: Performed By: #### C TEJAS, 17002-8, TSHR, CBCA, 2132-04 #### [facility] ([id number]) [address] [place] [address] Erythrocyte distribution width (RBC) [Ratio] 13.9 % Normal 11.5-15.0 [facility] Comment on above: Performed By: #### C TEJAS, 81034-0, TSHR, CBCA, 2132-04 #### [facility] ([id number]) [address] [place] [address] Hematocrit (Bld) [Volume fraction] 48.0 % Normal 39-49 [facility] Comment on above: Performed By: #### C TEJAS, 74082-5, TSHR, CBCA, 2132-04 #### [facility] ([id number]) [address] [address] Hemoglobin (Bld) [Mass/Vol] 16.4 g/dL Normal 13.0-17.0 [facility] Comment on above: Performed By: #### C TEJSA, 58128-1, TSHR, CBCA, 2132-04 #### [facility] ([id number]) [address] [place] [address] Lymphocytes (Bld) [#/Vol] 1.6 10*3/uL Normal 1.0-3.5 [facility] Comment on above: Performed By: #### C TEJAS, 79301-9, TSHR, CBCA, 2132-04 #### [facility] ([id number]) [address], [address] [place] [address] Lymphocytes/100 WBC (Bld) 28.7 % Normal [facility] Comment on above: Performed By: #### C TEJAS, 86114-9, TSHR, CBCA, 2132-04 #### [facility] ([id number]) [address], [address] [place] [address] MCH (RBC) [Entitic mass] 34.9 pg High 27-34 [facility] Comment on above: Performed By: #### C TEJAS, 46288-8, TSHR, CBCA, 2132-04 #### [facility] ([id number]) [address], [address] [place] [address] MCHC (RBC) [Mass/Vol] 34.2 g/dL Normal 32-36 [facility] Comment on above: Performed By: #### C TEJAS, 20582-9, TSHR, CBCA, 2132-04 #### [facility] ([id number]) [address], [address] [place] [address] MCV (RBC) [Entitic vol] 102 fL High 80-100 [facility] Comment on above: Performed By: #### C TEJAS, 28415-0, TSHR, CBCA, 2132-04 #### [facility] ([id number]) [address], [address] [place] [address] Monocytes (Bld) [#/Vol] 0.6 10*3/uL Normal 0-0.9 [facility] Comment on above: Performed By: #### C TEJAS, 36479-5, TSHR, CBCA, 2132-04 #### [facility] ([id number]) [address], [address] [place] [address] Monocytes/100 WBC (Bld) 10.8 % Normal [facility] Comment on above: Performed By: #### C TEJAS, 27131-2, TSHR, CBCA, 2132-04 #### [facility] ([id number]) [address] [place] [address] Neutrophils/100 WBC (Bld) 58.9 % Normal [facility] Comment on above: Performed By: #### C MP, 38820-4, TSHR, CBCA, 2132-04 #### [facility] ([id number]) [address] [place] [address] Platelet mean volume (Bld) [Entitic vol] 8.9 fL Normal 7-12 [facility] Comment on above: Performed By: #### C MP, 23032-8, TSHR, CBCA, 2132-04 #### [facility] ([id number]) [address] [address] Platelets (Bld) [#/Vol] 95 10*3/uL Low 150-450 [facility] Comment on above: Performed By: #### C MP, 55430-1, TSHR, CBCA, 2132-04 #### [facility] ([id number]) [address] [place] [address] RBC COUNT 4.70 X10E12/L Normal 4.10-5.70 [facility] Comment on above: Performed By: #### C MP, 52938-1, TSHR, CBCA, 2132-04 #### [facility] ([id number]) [address] [place] [address] WBC (Bld) [#/Vol] 5.4 10*3/uL Normal 4.0-11.0 [facility] Comment on above: Performed By: #### C MP, 56308-8, TSHR, CBCA, 2132-04 #### [facility] ([id number]) [address] [place] [address] CBC auto differentialon 05-0 6-2024 Basophils (Bld) [#/Vol] 0.1 10*3/uL [facility] Basophils/100 WBC (Bld) 0.9 % [facility] Eosinophils (Bld) [#/Vol] 0.0 10*3/uL [facility] Eosinophils/100 WBC (Bld) 0.7 % [facility] Erythrocyte distribution width (RBC) [Ratio] 13.9 % 11.5 - 15.0 % [facility] Hematocrit (Bld) [Volume fraction] 48.0 % 39 - 49 % [facility] Hemoglobin (Bld) [Mass/Vol] 16.4 g/dL 13.0 - 17.0 g/dL [facility] Interpretation and review of laboratory results Abnormal [facility] Lymphocytes (Bld) [#/Vol] 1.6 10*3/uL [facility] Lymphocytes/100 WBC (Bld) 28.7 % [facility] MCH (RBC) [Entitic mass] 34.9 pg High 27 - 34 pg [facility] MCHC (RBC) [Mass/Vol] 34.2 g/dL 32 - 36 g/dL P [facility] MCV (RBC) [Entitic vol] 102 fL High 80 - 100 fL [facility] Monocytes (Bld) [#/Vol] 0.6 10*3/uL [facility] Monocytes/100 WBC (Bld) 10.8 % [facility] Neutrophils (Bld) [#/Vol] 3.2 10*3/uL [facility] Neutrophils/100 WBC (Bld) 58.9 % [facility] Platelet mean volume (Bld) [Entitic vol] 8.9 fL 7 - 12 fL [facility] Platelets (Bld) [#/Vol] 95 10*3/uL Low [facility] RBC (Bld) [#/Vol] 4.70 10*6/uL [facility] WBC corrected for nucl RBC Auto (Bld) [#/Vol] 5.4 [facility] COMPREHENSIVE METABOLIC PANE Alejandro 12-07-2023 Albumin [Mass/Vol] 3.8 g/dL Normal 3.2-5.3 [facility] Comment on above: Performed By: #### C TEJAS, 37137-0, TSHR, CBCA, 2132-04 #### [facility] ([id number]) [address], [address] [place] [address] ALP [Catalytic activity/Vol] 89 U/L Normal 39-130 [facility] Comment on above: Performed By: #### C TEJAS, 92874-1, TSHR, CBCA, 2132-04 #### [facility] ([id number]) [address], [address] [place] [address] ALT [Catalytic activity/Vol] 33 U/L Normal 0-40 [facility] Comment on above: Performed By: #### C TEJAS, 82266-5, TSHR, CBCA, 2132-04 #### [facility] ([id number]) [address], [address] [place] [address] Anion gap [Moles/Vol] 10 mmol/L Normal 5-15 [facility] Comment on above: Performed By: #### C TEJAS, 61806-1, TSHR, CBCA, 2132-04 #### [facility] ([id number]) [address], [address] [place] [address] AST [Catalytic activity/Vol] 58 U/L High 0-41 [facility] Comment on above: Performed By: #### C MP, 40715-3, TSHR, CBCA, 2132-04 #### [facility] ([id number]) [address], [address] [place] [address] Bilirubin [Mass/Vol] 0.7 mg/dL Normal 0.3-1.2 [facility] Comment on above: Performed By: #### C TEJAS, 26094-9, TSHR, CBCA, 2132-04 #### [facility] ([id number]) [address], [address] [place] [address] Calcium [Mass/Vol] 8.9 mg/dL Normal 8.5-10.5 [facility] Comment on above: Performed By: #### C TEJAS, 83672-9, TSHR, CBCA, 2132-04 #### [facility] ([id number]) [address], [facility] [address] [place] [address] Chloride [Moles/Vol] 107 mmol/L Normal 98-109 [facility] Comment on above: Performed By: #### C TEJAS, 99558-3, TSHR, CBCA, 2132-04 #### [facility] ([id number]) [address] [place] [address] CO2 [Moles/Vol] 26 mmol/L Normal 22-32 [facility] Comment on above: Performed By: #### C TEJAS, 39460-5, TSHR, CBCA, 2132-04 #### [facility] ([id number]) [address] [place] [address] Creatinine [Mass/Vol] 0.89 mg/dL Normal 0.60-1.30 [facility] Comment on above: Result Comment: METH OD TRACEABLE TO IDMS STANDARD Performed By: #### C TEJAS, 69418-3, TSHR, CBCA, 2132-04 #### [facility] ([id number]) [address] [place] [address] eGFR (CKD-EPI) NON-RACE DEPENDENT >90 Normal >59 [facility] Comment on above: Result Comment: Reported eGFR is based on the CKD-EPI 2020 equation that does not use a race coefficient. Performed By: #### C TEJAS, 67939-1, TSHR, CBCA, 2132-04 #### [facility] ([id number]) [address], [address] [place] [address] Glucose [Mass/Vol] 93 mg/dL Normal 65-99 [facility] Comment on above: Performed By: #### C TEJAS, 19877-1, TSHR, CBCA, 2132-04 #### [facility] ([id number]) [address], [address] [place] [address] Potassium [Moles/Vol] 3.7 mmol/L Normal 3.5-5.0 [facility] Comment on above: Performed By: #### C TEJAS, 62866-4, TSHR, CBCA, 2132-04 #### [facility] ([id number]) [address], [address] [place] [address] Protein [Mass/Vol] 6.6 g/dL Normal 6.0-8.0 [facility] Comment on above: Performed By: #### C TEJAS, 49763-6, TSHR, CBCA, 2132-04 #### [facility] ([id number]) [address], [address] [place] [address] Sodium [Moles/Vol] 143 mmol/L Normal 134-146 [facility] Comment on above: Performed By: #### C TEJAS, 86280-3, TSHR, CBCA, 2132-04 #### [facility] ([id number]) [address], [address] [place] [address] Urea nitrogen [Mass/Vol] 10 mg/dL Normal 5-23 [facility] Comment on above: Performed By: #### Mayela LAZARO, 18504-0, TSHR, CBCA, 2132-04 #### [facility] ([id number]) [address], [address] [place] [address] Cobalamin (Vitamin B12) [Mas s/Vol]on 12-07-2023 [facility] Comprehensive metabolic pane alejandro 12-07-2023 Albumin [Mass/Vol] 3.8 g/dL 3.2 - 5.3 g/dL [facility] ALP [Catalytic activity/Vol] 89 U/L 39 - 130 U/L [facility] ALT No additional P-5'-P [Catalytic activity/Vol] 33 U/L 0 - 40 U/L [facility] Anion gap [Moles/Vol] 10 mmol/L 5 - 15 mmol/L [facility] AST [Catalytic activity/Vol] 58 U/L High 0 - 41 U/L [facility] Bilirubin [Mass/Vol] 0.7 mg/dL 0.3 - 1 .2 mg/dL [facility] Calcium [Mass/Vol] 8.9 mg/dL 8.5 - 10. 5 mg/dL [facility] Chloride [Moles/Vol] 107 mmol/L 98 - 10 9 mmol/L [facility] CO2 [Moles/Vol] 26 mmol/L 22 - 32 mmol/L [facility] Creatinine [Mass/Vol] 0.89 mg/dL 0.60 - 1.30 mg/dL [facility] Comment on above: METHOD TRACEABLE TO [facility] STANDARD eGFR (CKD-EPI)non-race dependent - PINF [facility] Comment on above: Reported eGFR is based on the CKD-EPI 2020 equation that does not use a race coefficient. Glucose [Mass/Vol] 93 mg/dL 65 - 99 mg/dL [facility] Potassium [Moles/Vol] 3.7 mmol/L 3.5 - 5.0 mmol/L [facility] Protein [Mass/Vol] 6.6 g/dL 6.0 - 8.0 g/dL [facility] Sodium [Moles/Vol] 143 mmol/L 134 - 146 mmol/L [facility] Urea nitrogen [Mass/Vol] 10 mg/dL 5 - 23 mg/dL [facility] Lipid 1996 panelon 4 Cholesterol [Mass/Vol] 103 mg/dL Low 150 - 200 mg/dL [facility] Cholesterol in HDL [Mass/Vol] 63 mg/dL 39 - PINF mg/dL [facility] Comment on above: HDL <40 mg/dL - High Risk HDL > or = 40mg/dL- Desirable HDL >60 mg/dL - Negative Risk Cholesterol in LDL [Mass/Vol] 5 mg/dL NINF - 130 mg/dL [facility] Comment on above: LDL <100 mg/dL - Desirable LDL >160 mg/dL - High Risk Cholesterol in VLDL [Mass/Vol] 35 mg/dL High 0 - 30 mg/dL [facility] Cholesterol.total/Chol esterol in HDL [Mass ratio] 1.6 {ratio} 1.0 - 5.0 [facility] Triglyceride [Mass/Vol] 173 mg/dL High 27 - 150 mg/dL [facility] Cholesterol [Mass/Vol] 103 mg/dL Low 150-200 [facility] Comment on above: Performed By: #### Mayela LAZARO, 06463-7, TSHR, CBCA, 2132-04 #### [facility] ([id number]) [address] [place] [address] Cholesterol in HDL [Mass/Vol] 63 mg/dL Normal >39 [facility] Comment on above: Result Comment: HDL <40 mg/dL - High Risk HDL > or = 40mg/dL- Desirable HDL >60 mg/dL - Negative Risk Performed By: #### C TEJAS, 45159-8, TSHR, CBCA, 2132-04 #### [facility] ([id number]) [address], [address] [place] [address] Cholesterol in LDL [Mass/Vol] 5 mg/dL Normal <130 [facility] Comment on above: Result Comment: LDL <100 mg/dL - Desirable LDL >160 mg/dL - High Risk Performed By: #### C TEJAS, 87424-5, TSHR, CBCA, 2132-04 #### [facility] ([id number]) [address], [address] [place] [address] Cholesterol in VLDL [Mass/Vol] 35 mg/dL High 0-30 [facility] Comment on above: Performed By: #### C TEJAS, 77415-0, TSHR, CBCA, 2132-04 #### [facility] ([id number]) [address], [address] [place] [address] CHOLESTEROL:HDL 1.6 Normal 1.0-5.0 [facility] Comment on above: Performed By: #### C TEJAS, 03328-9, TSHR, CBCA, 2132-04 #### [facility] ([id number]) [address], [address] [place] [address] Triglyceride [Mass/Vol] 173 mg/dL High 27-150 [facility] Comment on above: Performed By: #### C TEJAS, 62137-4, TSHR, CBCA, 2132-04 #### [facility] ([id number]) [address], [address] [place] [address] No Panel Informationon 12-06 Interpretation and review of laboratory results Abnormal [facility] TSH WITH REFLEXon 12-07-2023 TSH 1.69 uIU/mL Normal 0.49-4.67 [facility] Comment on above: Performed By: #### C TEJAS, 23015-3, TSHR, CBCA, 2132-04 #### [facility] ([id number]) [address], [address] [place] [address] TSH with Reflexon 12-07-2023 TSH Qn 1.69 m[IU]/L [facility] VITAMIN B12on 12-07-2023 Cobalamin (Vitamin B12) [Mass/Vol] 337 pg/mL Normal 180-914 [facility] Comment on above: Performed By: #### C MP, 74931-5, TSHR, CBCA, 2132-9 #### [facility] ([id number]) [address], [address] [place] [address] Vitamin B12on 12-07-2023 Cobalamin (Vitamin B12) [Mass/Vol] 337 pg/mL 180 - 914 pg/mL [facility] Vital Signs Date Time Vital Sign Value Performing Clinician Facility 04-06-2025 14:55-0400 Body height 177.8 cm Rogelio Brown DPM Work Phone: [facility] 04-06-2025 14:55-0400 Body mass index (BMI) [Ratio] 27.26 kg/m2 Rogelio Brown DPM Work Phone: [facility] 04-06-2025 14:55-0400 Body weight 86.18 kg Rogelio Brown DPM Work Phone: [facility] 04-06-2025 14:55-0400 Respiratory rate 16 /min Rogelio Brown DPM Work Phone: [facility] 03-30-2025 15:27-0400 Body height 177.8 cm Rogelio Brown DPM Work Phone: [facility] 03-30-2025 15:27-0400 Body mass index (BMI) [Ratio] 27.26 kg/m2 Rogelio Brown DPM Work Phone: [facility] 03-30-2025 15:27-0400 Body weight 86.18 kg Rogelio Brown DPM Work Phone: [facility] 03-30-2025 15:27-0400 Respiratory rate 18 /min Rogelio Brown DPM Work Phone: [facility] 03-16-2025 15:57-0400 Body height 177.8 cm Rogelio Brown DPM Work Phone: [facility] 03-16-2025 15:57-0400 Body mass index (BMI) [Ratio] 27.26 kg/m2 Rogelio Conway DPM Work Phone: [facility] 03-16-2025 15:57-0400 Body weight 86.18 kg Rogelio Conway DPM Work Phone: [facility] 03-16-2025 15:57-0400 Respiratory rate 16 /min Rogelio Conway DPM Work Phone: [facility] 03-02-2025 15:51-0400 Body height 177.8 cm Rogelio Conway DPM Work Phone: [facility] 03-02-2025 15:51-0400 Body mass index (BMI) [Ratio] 27.26 kg/m2 Rogelio Conway DPM Work Phone: [facility] 03-02-2025 15:51-0400 Body weight 86.18 kg Rogelio Conway DPM Work Phone: [facility] 03-02-2025 15:51-0400 Respiratory rate 16 /min Rogelio Conway DPM Work Phone: [facility] 02-22-2025 15:10-0400 Diastolic blood pressure 80 mm[Hg] Cris Osegueras DO Work Phone: [facility] 02-22-2025 15:10-0400 Systolic blood pressure 128 mm[Hg] Cris Horanholgers DO Work Phone: [facility] 02-22-2025 14:45-0400 Body height 180.3 cm Cris Marlinehas DO Work Phone: [facility] 02-22-2025 14:45-0400 Body mass index (BMI) [Ratio] 27.6 kg/m2 Cris Marlinehas DO Work Phone: [facility] 02-22-2025 14:45-0400 Body temperature 98.01 [degF] Cris Marlineholgers DO Work Phone: [facility] 02-22-2025 14:45-0400 Body weight 89.72 kg Cris Osegueras DO Work Phone: [facility] 02-22-2025 14:45-0400 Heart rate 63 /min Cris Horanhas DO Work Phone: [facility] 02-22-2025 14:45-0400 Respiratory rate 18 /min Cris Horanhas DO Work Phone: [facility] 02-22-2025 14:45-0400 SaO2% (BldA) [Mass fraction] 96 % Cris Osegueras DO Work Phone: [facility] 02-21-2025 14:13-0400 Diastolic blood pressure 94 mm[Hg] Jus Wisdom MD Work Phone: [facility] 02-21-2025 14:13-0400 Heart rate 68 /min Jus Wisdom MD Work Phone: [facility] 02-21-2025 14:13-0400 Systolic blood pressure 157 mm[Hg] Jus Wisdom MD Work Phone: [facility] 01-26-2025 15:06-0400 Body height 177.8 cm Rogelio Conway DPM Work Phone: [facility] 01-26-2025 15:06-0400 Body mass index (BMI) [Ratio] 27.26 kg/m2 Rogelio Conway DPM Work Phone: [facility] 01-26-2025 15:06-0400 Body weight 86.18 kg Rogelio Conway DPM Work Phone: [facility] 01-26-2025 15:06-0400 Respiratory rate 18 /min Rogelio Conway DPM Work Phone: [facility] 01-04-2025 13:33-0400 Body height 180.3 cm Cris Ana Rosas DO Work Phone: [facility] 01-04-2025 13:33-0400 Body mass index (BMI) [Ratio] 26.51 kg/m2 Cris Osegueras DO Work Phone: [facility] 01-04-2025 13:33-0400 Body temperature 98.8 [degF] Cris Osegueras DO Work Phone: [facility] 01-04-2025 13:33-0400 Body weight 86.18 kg Cris Osegueras DO Work Phone: [facility] 01-04-2025 13:33-0400 Diastolic blood pressure 70 mm[Hg] Cris Osegueras DO Work Phone: [facility] 01-04-2025 13:33-0400 Heart rate 68 /min Cris Osegueras DO Work Phone: [facility] 01-04-2025 13:33-0400 Respiratory rate 20 /min Cris Oesgueras DO Work Phone: [facility] 01-04-2025 13:33-0400 SaO2% (BldA) [Mass fraction] 97 % Cris Osegueras DO Work Phone: [facility] 01-04-2025 13:33-0400 Systolic blood pressure 136 mm[Hg] Cris Osegueras DO Work Phone: [facility] 12-13-2024 13:35-0400 Body height 180.3 cm Cris Osegueras DO Work Phone: [facility] 12-13-2024 13:35-0400 Body mass index (BMI) [Ratio] 25.53 kg/m2 Cris Osegueras DO Work Phone: [facility] 12-13-2024 13:35-0400 Body temperature 98.4 [degF] Cris Osegueras DO Work Phone: [facility] 12-13-2024 13:35-0400 Body weight 83.01 kg Cris Osegueras DO Work Phone: [facility] 12-13-2024 13:35-0400 Diastolic blood pressure 70 mm[Hg] Cris Singh DO Work Phone: [facility] 12-13-2024 13:35-0400 Heart rate 81 /min Cris Singh DO Work Phone: [facility] 12-13-2024 13:35-0400 Respiratory rate 20 /min Cris Singh DO Work Phone: [facility] [place] 12-13-2024 13:35-0400 SaO2% (BldA) [Mass fraction] 98 % Cris Singh DO Work Phone: [facility] 12-13-2024 13:35-0400 Systolic blood pressure 130 mm[Hg] Cris Singh DO Work Phone: [facility] 12-01-2024 13:04-0400 Body height 177.8 cm Ernie Pacenta TALENT CONSULTANT.[employer] Work Phone: [facility] 12-01-2024 13:04-0400 Body mass index (BMI) [Ratio] 23.66 kg/m2 Ernie Pacenta TALENT CONSULTANT.[employer] Work Phone: [facility] 12-01-2024 13:04-0400 Body temperature 97.59 [degF] Ernie Pacenta TALENT CONSULTANT.[employer] Work Phone: [facility] 12-01-2024 13:04-0400 Body weight 74.8 kg Ernie Pacenta TALENT CONSULTANT.[employer] Work Phone: [facility] 12-01-2024 13:04-0400 Diastolic blood pressure 73 mm[Hg] Ernie Pacenta TALENT CONSULTANT.[employer] Work Phone: [facility] 12-01-2024 13:04-0400 Heart rate 67 /min Ernie Pacenta TALENT CONSULTANT.[employer] MAN Work Phone: [facility] 12-01-2024 13:04-0400 Respiratory rate 18 /min Ernie Pacenta TALENT CONSULTANT.[employer] Work Phone: [facility] 12-01-2024 13:04-0400 Systolic blood pressure 119 mm[Hg] Ernie Rankin [facility] Work Phone: [facility] 10-25-2024 13:46-0400 Body height 177.8 cm Pac 1 [facility] Comment on above: commicated by patient 10-25-2024 13:46-0400 Body mass index (BMI) [Ratio] 23.68 kg/m2 Pac 1 [facility] 10-25-2024 13:46-0400 Body temperature 97.9 [degF] Pac 1 [facility] 10-25-2024 13:46-0400 Body weight 74.84 kg Pac 1 [facility] Comment on above: commicated by patient 10-25-2024 13:46-0400 Diastolic blood pressure 93 mm[Hg] Pac 1 [facility] 10-25-2024 13:46-0400 Heart rate 80 /min Pac 1 [facility] 10-25-2024 13:46-0400 SaO2% (BldA) [Mass fraction] 95 % Pac 1 [facility] 10-25-2024 13:46-0400 Systolic blood pressure 162 mm[Hg] Pac 1 [facility] 10-25-2024 13:19-0400 Diastolic blood pressure 84 mm[Hg] Jus Wisdom MD Work Phone: [facility] 10-25-2024 13:19-0400 Heart rate 68 /min Jus Wisdom MD Work Phone: [facility] 10-25-2024 13:19-0400 Systolic blood pressure 162 mm[Hg] Jus Wisdom MD Work Phone: [facility] 10-11-2024 09:32-0400 Diastolic blood pressure 82 mm[Hg] Jus Wisdom MD Work Phone: [facility] 10-11-2024 09:32-0400 Heart rate 67 /min Jus Wisdom MD Work Phone: [facility] 10-11-2024 09:32-0400 Systolic blood pressure 133 mm[Hg] Jus Wisdom MD Work Phone: [facility] 09-26-2024 15:41-0500 Body mass index (BMI) [Ratio] 23.1 kg/m2 Savita Alcantara FLY WORKER Work Phone: [facility] 09-26-2024 15:41-0500 Body weight 73.03 kg Savita Alcantara FLY WORKER Work Phone: [facility] 09-26-2024 15:41-0500 Diastolic blood pressure 80 mm[Hg] Savita Alcantara FLY WORKER Work Phone: [facility] 09-26-2024 15:41-0500 Heart rate 72 /min Savita Alcantara FLY WORKER Work Phone: [facility] 09-26-2024 15:41-0500 SaO2% (BldA) [Mass fraction] 96 % Savita Alcantara FLY WORKER Work Phone: [facility] 09-26-2024 15:41-0500 Systolic blood pressure 128 mm[Hg] Savita Alcantara FLY WORKER Work Phone: [facility] 08-25-2024 12:51-0500 Diastolic blood pressure 73 mm[Hg] Ernie Pacenta TALENT CONSULTANT.[employer] MAN Work Phone: [facility] 08-25-2024 12:51-0500 Heart rate 66 /min Ernie Pacenta TALENT CONSULTANT.[employer] Work Phone: [facility] 08-25-2024 12:51-0500 SaO2% (BldA) [Mass fraction] 97 % Ernie Pacenta TALENT CONSULTANT.[employer] MAN Work Phone: [facility] 08-25-2024 12:51-0500 Systolic blood pressure 129 mm[Hg] Ernie Pacenta TALENT CONSULTANT.[employer] MAN Work Phone: [facility] 08-22-2024 13:44-0500 Body height 180.3 cm Cris Singh DO Work Phone: [facility] 08-22-2024 13:44-0500 Body mass index (BMI) [Ratio] 24.21 kg/m2 Cris Singh DO Work Phone: [facility] 08-22-2024 13:44-0500 Body temperature 98.4 [degF] Cris Singh DO Work Phone: [facility] 08-22-2024 13:44-0500 Body weight 78.74 kg Cris Singh DO Work Phone: [facility] 08-22-2024 13:44-0500 Diastolic blood pressure 70 mm[Hg] Cris Singh DO Work Phone: [facility] 08-22-2024 13:44-0500 Heart rate 72 /min Cris Singh DO Work Phone: [facility] 08-22-2024 13:44-0500 SaO2% (BldA) [Mass fraction] 98 % Cris Singh DO Work Phone: [facility] 08-22-2024 13:44-0500 Systolic blood pressure 122 mm[Hg] Cris Singh DO Work Phone: [facility] 08-09-2024 14:13-0500 Body mass index (BMI) [Ratio] 24.97 kg/m2 Savita Alcantara FLY WORKER Work Phone: [facility] 08-09-2024 14:13-0500 Body weight 78.93 kg Savita Alcantara FLY WORKER Work Phone: [facility] 08-09-2024 14:13-0500 Diastolic blood pressure 74 mm[Hg] Savita Alcantara FLY WORKER Work Phone: [facility] 08-09-2024 14:13-0500 Systolic blood pressure 128 mm[Hg] Savita Alcantara FLY WORKER Work Phone: [facility] 06-01-2024 13:09-0400 Body height 177.8 cm Paola Garay MD Work Phone: [facility] 06-01-2024 13:09-0400 Body mass index (BMI) [Ratio] 23.39 kg/m2 Paola Garay MD Work Phone: [facility] 06-01-2024 13:09-0400 Body weight 73.94 kg Paola Garay MD Work Phone: [facility] 06-01-2024 13:09-0400 Diastolic blood pressure 68 mm[Hg] Paola Garay MD Work Phone: [facility] 06-01-2024 13:09-0400 Systolic blood pressure 125 mm[Hg] Paola Garay MD Work Phone: [facility] 05-19-2024 12:36-0400 Body height 180.3 cm Cris Osegueras DO Work Phone: [facility] 05-19-2024 12:36-0400 Body mass index (BMI) [Ratio] 22.79 kg/m2 Cris Osegueras DO Work Phone: [facility] 05-19-2024 12:36-0400 Body temperature 98.01 [degF] Cris Osegueras DO Work Phone: [facility] 05-19-2024 12:36-0400 Body weight 74.12 kg Cris Osegueras DO Work Phone: [facility] 05-19-2024 12:36-0400 Diastolic blood pressure 70 mm[Hg] Cris Osegueras DO Work Phone: [facility] 05-19-2024 12:36-0400 Heart rate 83 /min Cris Horanhas DO Work Phone: [facility] 05-19-2024 12:36-0400 Respiratory rate 18 /min Cris Horanhas DO Work Phone: [facility] 05-19-2024 12:36-0400 SaO2% (BldA) [Mass fraction] 97 % Cris Horanhas DO Work Phone: [facility] 05-19-2024 12:36-0400 Systolic blood pressure 130 mm[Hg] Cris Horanhas DO Work Phone: [facility] 05-12-2024 14:09-0400 Body height 177.8 cm Savita Alcantara NP Work Phone: [facility] 05-12-2024 14:09-0400 Body mass index (BMI) [Ratio] 23.56 kg/m2 Savita Alcantara FLY WORKER Work Phone: [facility] 05-12-2024 14:09-0400 Body weight 74.48 kg Savita Alcantara FLY WORKER Work Phone: [facility] 05-12-2024 14:09-0400 Diastolic blood pressure 68 mm[Hg] Savita Alcantara FLY WORKER Work Phone: [facility] 05-12-2024 14:09-0400 Heart rate 70 /min Savita Alcantara FLY WORKER Work Phone: [facility] 05-12-2024 14:09-0400 SaO2% (BldA) [Mass fraction] 97 % Savita Alcantara FLY WORKER Work Phone: [facility] 05-12-2024 14:09-0400 Systolic blood pressure 130 mm[Hg] Savita Alcantara FLY WORKER Work Phone: [facility] 04-28-2024 14:56-0400 Body height 180.3 cm Cris Osegueras DO Work Phone: [facility] 04-28-2024 14:56-0400 Body mass index (BMI) [Ratio] 22.9 kg/m2 Cris Osegueras DO Work Phone: [facility] 04-28-2024 14:56-0400 Body temperature 97.81 [degF] Cris Horanhas DO Work Phone: [facility] 04-28-2024 14:56-0400 Body weight 74.48 kg Cris Horanhas DO Work Phone: [facility] 04-28-2024 14:56-0400 Diastolic blood pressure 70 mm[Hg] Cris Horanhas DO Work Phone: [facility] 04-28-2024 14:56-0400 Heart rate 75 /min Cris Horanhas DO Work Phone: [facility] 04-28-2024 14:56-0400 Respiratory rate 18 /min Cris Osegueras DO Work Phone: [facility] 04-28-2024 14:56-0400 SaO2% (BldA) [Mass fraction] 98 % Cris Osegueras DO Work Phone: [facility] 04-28-2024 14:56-0400 Systolic blood pressure 120 mm[Hg] Cris Osegueras DO Work Phone: [facility] 03-08-2024 13:49-0400 Body height 180.3 cm Cris Osegueras DO Work Phone: [facility] 03-08-2024 13:49-0400 Body mass index (BMI) [Ratio] 24.13 kg/m2 Cris Osegueras DO Work Phone: [facility] 03-08-2024 13:49-0400 Body temperature 98.2 [degF] Cris Osegueras DO Work Phone: [facility] 03-08-2024 13:49-0400 Body weight 78.47 kg Cris Osegueras DO Work Phone: [facility] 03-08-2024 13:49-0400 Diastolic blood pressure 60 mm[Hg] Cris Osegueras DO Work Phone: [facility] 03-08-2024 13:49-0400 Heart rate 72 /min Cris Osegueras DO Work Phone: [facility] 03-08-2024 13:49-0400 SaO2% (BldA) [Mass fraction] 97 % Cris Osegueras DO Work Phone: [facility] 03-08-2024 13:49-0400 Systolic blood pressure 110 mm[Hg] Cris Horanhas DO Work Phone: [facility] 12-29-2023 11:25-0400 Body height 180.3 cm Cris Yuhas DO Work Phone: [facility] 12-29-2023 11:25-0400 Body mass index (BMI) [Ratio] 22.98 kg/m2 Cris Osegueras DO Work Phone: [facility] 12-29-2023 11:25-0400 Body temperature 97.81 [degF] Cris Osegueras DO Work Phone: [facility] 12-29-2023 11:25-0400 Body weight 74.75 kg Cris Osegueras DO Work Phone: [facility] 12-29-2023 11:25-0400 Diastolic blood pressure 68 mm[Hg] Cris Osegueras DO Work Phone: [facility] 12-29-2023 11:25-0400 Heart rate 73 /min Cris Osegueras DO Work Phone: [facility] 12-29-2023 11:25-0400 Respiratory rate 18 /min Cris Singh DO Work Phone: [facility] 12-29-2023 11:25-0400 SaO2% (BldA) [Mass fraction] 97 % Cris Singh DO Work Phone: [facility] 12-29-2023 11:25-0400 Systolic blood pressure 126 mm[Hg] Cris Singh DO Work Phone: [facility] 12-07-2023 13:33-0400 Body height 180.3 cm Cris Osegueras DO Work Phone: [facility] 12-07-2023 13:33-0400 Body mass index (BMI) [Ratio] 22.93 kg/m2 Cris Osegueras DO Work Phone: [facility] 12-07-2023 13:33-0400 Body temperature 98.01 [degF] Cris Osegueras DO Work Phone: [facility] 12-07-2023 13:33-0400 Body weight 74.57 kg [facility] 12-07-2023 13:33-0400 Diastolic blood pressure 80 mm[Hg] Cris [facility] 12-07-2023 13:33-0400 Heart rate 122 /min Cris Singh DO Work Phone: [facility] 12-07-2023 13:33-0400 SaO2% (BldA) [Mass fraction] 98 % Cris [facility] 12-07-2023 13:33-0400 Systolic blood pressure 140 mm[Hg] Cris Singh DO Work Phone: [facility] Encounters Encounter Date Encounter Type Care Provider Facility Start: 05-04-2025 End: 05-04-2025 Refill [facility] [place] [facility] Comment on above: Localized osteoarthr itis of lumbar spine Start: 04-06-2025 End: 04-06-2025 Office outpatient visit 15 minutes Rogelio Conway DPM Work Phone: [facility] Comment on above: Hav (hallux abducto valgus), left (Primary Dx); Pain due to onychomycosis of toenails of both feet; Acquired deformity of left toe Start: 04-06-2025 End: 04-06-2025 ambulatory ROGELIO CONWAY Not Available Start: 04-06-2025 End: 04-06-2025 Bamboo flowsheet Rogelio Conway DPM Work Phone: [facility] Start: 04-06-2025 End: 04-06-2025 Bamboo flowsheet Rogelio Conway DPM Work Phone: [facility] Start: 03-30-2025 End: 03-30-2025 Office outpatient visit 15 minutes Rogelio Conway DPM Work Phone: [facility] Comment on above: Acquired deformity o f left toe (Primary Dx) Start: 03-30-2025 End: 03-30-2025 ambulatory ROGELIO CONWAY Not Available Start: 03-30-2025 End: 03-30-2025 Bamboo flowsheet Rogelio Conway DPM Work Phone: [facility] Start: 03-30-2025 End: 03-30-2025 Bamboo flowsheet Rogelio Conway DPM Work Phone: [facility] Start: 03-16-2025 End: 03-16-2025 Postop follow up visit related to original px Rogelio Conway DPM Work Phone: [facility] Comment on above: Acquired deformity o f left toe (Primary Dx) Start: 03-16-2025 End: 03-16-2025 ambulatory ROGELIO CONWAY Not Available Start: 03-16-2025 End: 03-16-2025 Bamboo flowsheet Rogelio Conway DPM Work Phone: [facility] Start: 03-16-2025 End: 03-16-2025 Bamboo flowsheet Rogelio Conway DPM Work Phone: [facility] Start: 03-14-2025 End: 03-14-2025 Refill [facility] DO [facility] Comment on above: Localized osteoarthr itis of lumbar spine Start: 03-08-2025 End: 03-08-2025 Telephone encounter Rogelio Conway DPM Work Phone: [facility] Start: 03-08-2025 End: 03-08-2025 ambulatory DPM Rogelio Conway [place] [place] Start: 03-02-2025 End: 03-02-2025 Office outpatient visit 25 minutes Rogelio Conway DPM Work Phone: [facility] Comment on above: Acquired deformity o f left toe (Primary Dx) Start: 03-02-2025 End: 03-02-2025 ambulatory ROGELIO CONWAY Not Available Start: 03-02-2025 End: 03-02-2025 Bamboo flowsheet Rogelio Conway DPM Work Phone: [facility] Start: 03-02-2025 End: 03-02-2025 Bamboo flowsheet Rogelio Conway DPM Work Phone: [facility] Start: 02-22-2025 End: 02-22-2025 Office outpatient visit 25 minutes Cris Singh DO Work Phone: [facility] Comment on above: Hammer toe of left f oot (Primary Dx); Intractable chronic post-traumatic headache; Tobacco abuse Start: 02-22-2025 End: 02-22-2025 Refill Cris Singh DO [facility] Comment on above: Intractable chronic post-traumatic headache Start: 02-21-2025 End: 02-21-2025 Postop follow up visit related to original px Jus Wisdom MD Work Phone: Spine Surgery [facility] Comment on above: Cervical spondylosis with myelopathy (Primary Dx) Start: 02-21-2025 End: 02-21-2025 ambulatory JUS WISDOM Facility:[facility] Start: 02-21-2025 Encounter for other preprocedural examination JUSTIN BOO [facility] Start: 02-21-2025 End: 02-21-2025 Patient encounter status Xr [facility] Start: 02-21-2025 End: 02-21-2025 Subsequent hospital visit by physician Xr [facility] 1 Xray [facility] Comment on above: Cervical spinal sten osis [M48.02] Start: 02-13-2025 End: 02-13-2025 Telephone encounter Jsu Wisdom MD Work Phone: Spine Surgery [facility] Comment on above: Appointment info Start: 02-07-2025 End: 02-07-2025 Postop follow up visit related to original px Ernie Rankin TALENT CONSULTANT.[employer] MAN Work Phone: [facility] Comment on above: Cervical spondylosis with myelopathy (Primary Dx) Start: 02-06-2025 End: 02-06-2025 Refill Cris Singh DO Work Phone: [facility] Comment on above: Intractable chronic post-traumatic headache (Primary Dx); Tobacco abuse Start: 01-26-2025 End: 01-26-2025 Office outpatient new 30 minutes Rogelio Conway DPM Work Phone: [facility] Comment on above: Hav (hallux abducto valgus), left (Primary Dx); Acquired deformity of left toe; Pain due to onychomycosis of toenails of both feet Start: 01-26-2025 End: 01-26-2025 ambulatory ROGELIO CONWAY Not Available Start: 01-26-2025 End: 01-26-2025 Bamboo flowsheet Rogelio Conway DPM Work Phone: [facility] Start: 01-26-2025 End: 01-26-2025 Bamboo flowsheet Rogelio Conway DPM Work Phone: [facility] Start: 01-24-2025 End: 03-01-2025 Telephone encounter Jus Wisdom MD Work Phone: Neurology [facility] Start: 01-20-2025 End: 01-20-2025 Refill Jus Wisdom MD Work Phone: Neurology Comment on above: Refill Request Start: 01-07-2025 End: 01-08-2025 Refill Cris Singh DO Work [facility]: [facility] Comment on above: Localized osteoarthr itis of lumbar spine Start: 01-04-2025 End: 01-04-2025 Office outpatient visit 15 minutes Cris Singh DO Work [facility] Comment on above: Hammer toe of left f oot (Primary Dx) Start: 01-04-2025 End: 01-04-2025 ambulatory [facility] Start: 12-28-2024 End: 12-28-2024 Telephone encounter Lign Main CMA [facility] - [facility] Start: 12-27-2024 End: 12-27-2024 Refill Jus Wisdom MD Work Phone: Neurology Comment on above: Refill Request Start: 12-14-2024 End: 12-14-2024 Telephone encounter Jus Wisdom MD Work Phone: Neurology Comment on above: Medication Problem Start: 12-13-2024 End: 12-13-2024 Office outpatient visit 25 minutes Cris Singh DO Work Phone: [facility] Comment on above: 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 (Primary Dx); B12 deficiency; Ataxia following other nontraumatic intracranial hemorrhage; 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, subsequent encounter; Tobacco abuse; Hyperlipidemia, unspecified hyperlipidemia type Start: 12-13-2024 End: 12-13-2024 ambulatory [facility] Start: 12-11-2024 End: 12-11-2024 Refill Cris Singh DO Work Phone: [facility] - [facility] Comment on above: Intractable chronic post-traumatic headache Start: 12-01-2024 End: 12-01-2024 Patient encounter procedure Ernie Rankin TALENT 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.[employer] MAN Work Phone: [facility] Comment on above: Cervical spondylosis with myelopathy (Primary Dx); Acute post-operative pain Start: 12-01-2024 End: 12-01-2024 ambulatory ERNIE PACENTA Facility:[facility] Start: 11-30-2024 End: 12-01-2024 Refill Ling Main CMA [facility] Comment on above: B12 deficiency Refill Request Start: 11-22-2024 End: 11-22-2024 Telephone encounter Jus Wisdom MD Work Phone: Neurology Comment on above: Patient Update; Basia ent Question home care referrals Start: 11-21-2024 End: 11-21-2024 Refill Cris Singh Work Phone: [facility] Comment on above: Tobacco abuse Start: 11-16-2024 End: 11-19-2024 Evaluation and management of inpatient BILAL LAURA BUTT Facility:[facility] Start: 11-14-2024 End: 11-14-2024 Nursing evaluation of patient and report Devaughn Vazquez RN Work Phone: [facility] Comment on above: Spinal stenosis in c ervical region (Primary Dx) Start: 11-14-2024 End: 11-14-2024 ambulatory BILAL LAURA BUTT Facility:[facility] Start: 11-01-2024 End: 11-01-2024 Telephone encounter Jus Wisdom MD Work Phone: [facility] Start: 2024 End: 2024 ambulatory 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 Comment on above: Cervical spinal sten osis (Primary Dx); Cervical spondylosis with myelopathy Start: 10-25-2024 End: 10-25-2024 ambulatory BILAL LAURA BUTT Facility:[facility] Start: 10-25-2024 End: 10-25-2024 Admission to establishment [facility] 1 Pre Anesthesia Start: 10-25-2024 End: 10-25-2024 ambulatory BILAL LAURA BUTT Facility:[facility] Start: 10-25-2024 End: 10-25-2024 Anesthesia consultation [facility] 1 Pre Anesthesia Comment on above: Pre-op evaluation (P rimary Dx); Current smoker; Traumatic brain injury, with unknown loss of consciousness status, initial encounter ([facility]); Essential hypertension; Oropharyngeal dysphagia; Hyperlipidemia, unspecified hyperlipidemia type Start: 10-25-2024 End: 10-25-2024 Preprocedural examination done [address] Start: 10-24-2024 End: 10-24-2024 ambulatory Lalitha Vela MD Facility:[facility] Start: 10-18-2024 End: 10-18-2024 Telephone encounter Jus Wisdom MD Work Phone: Neurology Comment on above: Patient Question; Pr eparations For Surgery Start: 10-14-2024 End: 10-14-2024 Refill Cris Singh DO Work Phone: [facility] Comment on above: Localized osteoarthr itis of lumbar spine Start: 10-12-2024 End: 10-13-2024 Telephone encounter Jus Wisdom MD Work Phone: Neurology Comment on above: Patient Question Start: 10-11-2024 End: 10-11-2024 Patient encounter status Jus Wisdom MD Work Phone: [facility] Start: 10-11-2024 End: 10-11-2024 Telephone encounter Jus Wisdom MD Work Phone: [facility] Start: 10-11-2024 End: 10-11-2024 Office outpatient new 45 minutes Jus Wisdom MD Work Phone: Spine Surgery [facility] Comment on above: Spinal stenosis of c ervical region (Primary Dx); Cervical spondylosis with myelopathy Start: 10-11-2024 End: 10-11-2024 ambulatory Jus Wisdom MD Work Phone: [facility] Start: 10-11-2024 End: 10-11-2024 Subsequent hospital visit by physician Ct [facility] Edwin (I-Stat) CT Scan [facility] Comment on above: Spinal stenosis of c ervical region [M48.02] Start: 09-29-2024 End: 09-29-2024 Refill Ayana Brown CMA [facility] Comment on above: B12 deficiency Start: 09-26-2024 End: 09-26-2024 Office outpatient visit 15 minutes Savita Quinton FLY WORKER Work Phone: [facility] Comment on above: Lumbar radiculopathy (Primary Dx); Degeneration of intervertebral disc of lumbosacral region with discogenic back pain and lower extremity pain; Weakness of right lower extremity; Cervical spinal stenosis; Weakness of right upper extremity; Chronic daily headache; Polyneuropathy; Chronic right shoulder pain; Vertigo Start: 09-26-2024 End: 09-26-2024 ambulatory SAVITA QUINTON Not Available Start: 09-26-2024 End: 09-26-2024 Bamboo flowsheet Savita Quinton FLY WORKER Work Phone: [facility] Start: 09-26-2024 End: 09-26-2024 Bamboo flowsheet Savita Kaplanoll FLY WORKER Work Phone: [facility] Start: 08-29-2024 End: 08-29-2024 ambulatory Lalitha Vela MD Facility: [facility] Start: 08-25-2024 End: 08-25-2024 Patient encounter procedure Ernie Rankin TALENT CONSULTANT.CUPOLA MAN Work Phone: [facility] Comment on above: Spinal stenosis of c ervical region (Primary Dx) Start: 08-25-2024 End: 08-25-2024 ambulatory ERNIE PACENTA Facility:[facility] Start: 08-25-2024 End: 08-25-2024 Subsequent hospital visit by physician Susi Huerta J1-4 Work Phone: Radiology Comment on above: Spinal stenosis, lum bar region with neurogenic claudication [M48.062] Start: 08-22-2024 End: 08-22-2024 Office outpatient visit 25 minutes Cris Singh DO Work Phone: [facility] Comment on above: 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, subsequent encounter (Primary Dx); Localized osteoarthritis of lumbar spine; Intractable chronic post-traumatic headache; Meniere's disease of both ears; Tobacco abuse; Glaucoma of both eyes, unspecified glaucoma type Start: 08-22-2024 End: 08-22-2024 ambulatory CRIS SINGH [facility] Start: 08-09-2024 End: 08-09-2024 [...] Vertigo Start: 08-09-2024 End: 08-09-2024 ambulatory SAVITA QUINTON Not Available Start: 07-15-2024 End: 07-20-2024 Chart abstracting Unk Pcp (Hist) Neurology Start: 07-02-2024 End: 07-03-2024 Refill Cris Singh DO Work Phone: [facility] Comment on above: Intractable chronic post-traumatic headache Start: 06-27-2024 End: 06-27-2024 ambulatory Lalitha Vela MD Facility: [facility] Start: 06-16-2024 End: 06-17-2024 Telephone encounter Tamica Recinos [facility] Start: 06-13-2024 End: 06-13-2024 Refill Tamica Recinos [facility] Comment on above: Intractable chronic post-traumatic headache Start: 06-01-2024 End: 06-01-2024 Office outpatient new 45 minutes Paola Garay MD Work Phone: [facility] Comment on above: Bilateral tinnitus ( Primary Dx); Asymmetric SNHL (sensorineural hearing loss); Imbalance Start: 06-01-2024 End: 06-01-2024 ambulatory PAOLA GARAY Not Available Start: 05-30-2024 End: 05-30-2024 Refill Cris Singh DO Work Phone: [facility] [...] End: 05-19-2024 Office outpatient visit 25 minutes [facility] Work Phone: [facility] Comment on above: Intractable chronic post-traumatic headache (Primary Dx); Localized osteoarthritis of lumbar spine; Glaucoma of both eyes, unspecified glaucoma type; Spondylosis of cervical spine Start: 05-19-2024 End: 05-19-2024 ambulatory [facility] Start: 05-16-2024 End: 05-16-2024 ambulatory Lalitha Vela MD Facility: [facility] Start: 05-12-2024 End: 05-12-2024 Office outpatient visit 25 minutes Savita Alcantara NP [facility] Comment on above: Lumbar radiculopathy (Primary Dx); Weakness of right lower extremity; Polyneuropathy; Weakness of right upper extremity; Chronic right shoulder pain; Vertigo Start: 05-12-2024 End: 05-12-2024 Bamboo flowsheet Savita Alcantara FLY WORKER Work Phone: [facility] [address] Start: 05-12-2024 End: 05-12-2024 Bamboo flowsheet Savita Alcantara FLY WORKER [facility] Start: 05-12-2024 End: 05-16-2024 Telephone encounter Savita Alcantara NP Work Phone: [facility] Start: 05-12-2024 End: 05-12-2024 ambulatory SAVITA ALCANTARA Not Available Start: 05-11-2024 End: 05-11-2024 Refill Cris Singh DO Work Phone: [facility] Comment on above: Localized osteoarthr itis of lumbar spine Start: 05-10-2024 End: 05-10-2024 Patient encounter procedure Deanna Gottliebett DO Work Phone: [facility] Comment on above: Cervical radiculopat hy (Primary Dx); Weakness of right upper extremity; Carpal tunnel syndrome on right Start: 05-10-2024 End: 05-10-2024 Bamboo flowsheet Deanna Mejia DO Work Phone: [facility] Start: 05-10-2024 End: 05-10-2024 Bamboo flowsheet Deanna Mejia DO Work Phone: [facility] Start: 05-10-2024 End: 05-10-2024 ambulatory DEANNA MEJIA Not Available Start: 04-29-2024 End: 04-29-2024 Refill Morena Donald CMA [facility] Comment on above: Intractable chronic post-traumatic headache Start: 04-28-2024 End: 04-28-2024 Office outpatient visit 25 minutes Cris Singh DO Work Phone: [facility] Comment on above: Intractable chronic post-traumatic headache (Primary Dx); Ataxia following other nontraumatic intracranial hemorrhage; 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, subsequent encounter; Glaucoma of both eyes, unspecified glaucoma type; Localized osteoarthritis of lumbar spine Start: 04-28-2024 End: 04-28-2024 ambulatory [facility] Start: 03-30-2024 End: 03-30-2024 Refill Cris Singh DO Work Phone: [facility] Comment on above: Intractable chronic post-traumatic headache Start: 03-24-2024 End: 03-24-2024 Refill Cris Singh DO Work Phone: [facility] Comment on above: B12 deficiency Start: 03-21-2024 End: 03-21-2024 Refill Cris Singh DO Work Phone: [facility] Comment on above: Localized osteoarthr itis of lumbar spine (Primary Dx) Start: 03-08-2024 Patient encounter status Jarrett Mejia DO Work Phone: [facility] Start: 03-08-2024 End: 03-08-2024 Office outpatient visit 25 minutes Cris Singh DO Work Phone: [facility] Comment on above: Intractable chronic post-traumatic headache (Primary Dx); Glaucoma of both eyes, unspecified glaucoma type; Cataract of both eyes, unspecified cataract type; B12 deficiency; Meniere's disease of both ears; Traumatic brain injury, 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 with patient surviving, initial encounter ([facility] Start: 03-08-2024 End: 03-08-2024 ambulatory [facility] Start: 02-18-2024 End: 02-18-2024 Patient encounter procedure [facility] [address] Work Phone: Start: 02-18-2024 End: 02-18-2024 ambulatory NON STAFF [facility] Work Phone: Start: 02-08-2024 End: 02-08-2024 Telephone encounter Cris Singh DO Work Phone: [facility] Start: 12-29-2023 End: 12-29-2023 Office outpatient visit 25 minutes Cris Singh DO Work Phone: [facility] Comment on above: 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, subsequent encounter (Primary Dx); Meniere's disease of both ears; Cataract of both eyes, unspecified cataract type; Localized osteoarthritis of lumbar spine; B12 deficiency Start: 12-22-2023 End: 12-23-2023 ambulatory CRIS SINGH [facility] Start: 12-07-2023 End: 12-08-2023 ambulatory [facility] Kavitha SINGH [facility] Start: 12-07-2023 End: 12-07-2023 Office outpatient new 45 minutes Cris Singh DO Work Phone: [facility] Comment on above: Orthostatic hypotens ion (Primary Dx); Tachycardia; Traumatic brain injury, 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 with patient surviving, initial encounter ([facility]); Lumbar radiculopathy; B12 deficiency; Hyperlipidemia, unspecified hyperlipidemia type; Benign prostatic hyperplasia with lower urinary tract symptoms, symptom details unspecified Start: 12-07-2018 End: 12-07-2018 Patient encounter procedure NONE LISTED REQUEST Facility: Start: 09-10-2018 Patient encounter procedure ROXANE MITCHELL Facility: Procedures Date Procedure Procedure Detail Performing Clinician Start: 02-22-2025 Adult depression scr eening assessment Cris Singh DO Work Phone: Start: 02-21-2025 Radex spine cervical 2 or 3 views Ernie Rankin APRN.CUPOLA MAN Work Phone: Start: 01-26-2025 Radex foot complete minimum 3 views Rogelio Conway DPM Work Phone: Start: 01-04-2025 Adult depression scr eening assessment Cris Singh DO Work Phone: Start: 12-13-2024 Comprehensive metabo lic panel Cris Singh DO Work Phone: Start: 12-13-2024 Lipid panel Cris mcallister DO Work Phone: Start: 12-13-2024 Adult depression scr eening assessment Cris Singh DO Work Phone: Start: 12-13-2024 Lipid 1996 panel - S jessica or Plasma Jus Wisdom MD Work Phone: Start: 10-25-2024 Antibody screen JUSTIN BOO Comment on above: Order Comment: Speci men Type: BLOOD SPECIMEN Ordering Facility: [facility] Address: [address] [place] [address] Performed By: #### 2 [id number], [id number] #### [facility] CLIA [id number] [address] [place] [address] [place] Start: 10-25-2024 Ecg routine ecg w/le ast 12 lds i&r only Justin Boo TALENT CONSULTANT.CUPOLA MAN Work Phone: Start: 10-11-2024 Ct cervical spine w/ o contrast material Ernie Rankin TALENT CONSULTANT.CUPOLA MAN Work Phone: Start: 08-25-2024 Radex spine cervical 4 or 5 views Lois Medeiros PA-C Work Phone: Start: 08-22-2024 Adult depression scr eening assessment Cris Singh DO Work Phone: Start: 05-25-2024 AUDITORY FUNCTION TESTS Shelby Torres CCC-A Work Phone: Start: 05-19-2024 Adult depression scr eening assessment Cris Horanrolando DO Work Phone: Start: 05-10-2024 End: 05-10-2024 Needle emg ea extremty w/paraspinl area complete Savita Alcantara FLY WORKER Work Phone: Start: 04-28-2024 Adult depression scr eening assessment Cris Osegueraromero DO Work Phone: Start: 03-08-2024 Follow-up visit Follow-up CRIS SINGH Start: 03-08-2024 Adult depression scr eening assessment Cris Osegueraromero DO Work Phone: Start: 02-18-2024 MR lumbar spine wo con Start: 02-18-2024 XR pre/post mri xray Start: 12-29-2023 Adult depression scr eening assessment Cris Singh DO Work Phone: Start: 12-07-2023 Ecg routine ecg w/le ast 12 lds w/i&r Cris Singh DO Work Phone: Start: 12-07-2023 Lipid 1996 panel - S jessica or Plasma Unk (Hist) Start: 12-24-2022 Adult depression scr eening assessment Cris Singh DO Work Phone: Plan of Treatment Date Care Activity Detail Author Start: 12-13-2029 Lipid panel Lipid Screening [facility] Start: 12-06-2028 Lipid panel Lipid Screening [facility] Start: 12-14-2027 Diabetes Screening Diabetes Screenin g [facility] Start: 11-20-2027 Diabetes Screening Diabetes Screenin g [facility] Start: 10-26-2027 Diabetes Screening Diabetes Screenwi g [facility] Start: 12-06-2026 Diabetes Screening Diabetes Screenin g [facility] Start: 02-22-2026 Adult BMI Screening Adult BMI Screen ing [facility] Start: 02-22-2026 Depression Screening Depression Scre ening [facility] Start: 02-22-2026 Tobacco Screening Tobacco Screening [facility] Start: 01-04-2026 Adult BMI Screening Adult BMI Screen ing [facility] Start: 01-04-2026 Depression Screening Depression Scre ening [facility] Start: 01-04-2026 Tobacco Screening Tobacco Screening [facility] Start: 12-13-2025 Adult BMI Screening Adult BMI Screen ing [facility] Start: 12-13-2025 Depression Screening Depression Scre ening [facility] Start: 12-13-2025 Tobacco Screening Tobacco Screening [facility] Start: 12-01-2025 BP Controlled (<130/80) BP Controlle d (<130/80) [facility] Start: 08-25-2025 BP Controlled (<130/80) BP Controlle d (<130/80) [facility] Start: 08-22-2025 Adult BMI Screening Adult BMI Screen ing [facility] Start: 08-22-2025 Depression Screening Depression Scre ening [facility] Start: 08-22-2025 Tobacco Screening Tobacco Screening [facility] Start: 05-24-2025 End: 03-23-2026 XR Cervical spine AP and Lateral XR CERV GENERAL 2V AP/LAT Radiology Routine Cervical spondylosis with myelopathy Expected: 05/24/2025, Expires: 03/23/2026 [facility] Work Phone: Comment on above: Expected: 05/24/2025 , Expires: 03/23/2026 Start: 05-19-2025 Adult BMI Screening Adult BMI Screen ing [facility] Start: 05-19-2025 Depression Screening Depression Scre ening [facility] Start: 05-19-2025 Tobacco Screening Tobacco Screening [facility] Start: 04-28-2025 Adult BMI Screening Adult BMI Screen ing [facility] Start: 04-28-2025 Depression Screening Depression Scre ening [facility] Start: 04-28-2025 Tobacco Screening Tobacco Screening [facility] Start: 04-06-2025 End: 04-06-2025 Patient encounter procedure [facility] Comment on above: Pain due to onychomy cosis of toenails of both feet (Primary Dx); Hav (hallux abducto valgus), left; Acquired deformity of left toe Start: 04-03-2025 COVID-19 Vaccine ( season) COVID-19 Vaccine ( season) [facility] Start: 04-03-2025 Influenza vaccination P [facility] Start: 03-30-2025 End: 03-30-2025 Patient encounter procedure 03/30/2025 4:40 PM EDT Office Visit [facility] [address] [facility] [address] [place] [address] Rogelio Conway DPM [address] [facility] [address] [place] [address] Acquired deformity of left toe (Primary Dx) [facility] Comment on above: Acquired deformity o f left toe (Primary Dx) Start: 03-16-2025 End: 03-16-2025 Patient encounter procedure [facility] Comment on above: Acquired deformity o f left toe (Primary Dx) Start: 03-08-2025 Adult BMI Screening Adult BMI Screen ing [facility] Start: 03-08-2025 Depression Screening Depression Scre ening [facility] Start: 03-08-2025 Tobacco Screening Tobacco Screening [facility] Start: 03-02-2025 End: 03-02-2025 Patient encounter procedure 03/02/2025 4:40 PM EDT Office Visit [facility] [address] [place] [id number] Rogelio Conway DPM [address] [address] Acquired deformity of left toe (Primary Dx) [facility] Comment on above: Acquired deformity o f left toe (Primary Dx) Start: 02-21-2025 End: 02-21-2025 Patient encounter procedure Spine Surgery [facility] Comment on above: 6 week post op follo w up with pre-visit XR XR CERV GENERAL 2V A P/LAT Start: 02-07-2025 End: 02-07-2025 ambulatory 02/07/2025 3:15 PM EDT [facility] [address] [place] [address] Ernie Rankin APRN.CUPOLA MAN [address] Mail Code [address] [place] [phone] Phone call 12 week post op [facility] Comment on above: Phone call 12 week p ost op Start: 01-26-2025 End: 01-26-2025 Patient encounter procedure 01/26/2025 3:40 PM EDT Office Visit [facility] [address] [place] [address] Rogelio Conway DPM [address] [address] Arrived [facility] Comment on above: Arrived Start: 01-24-2025 End: 01-24-2025 Patient encounter procedure [facility] Comment on above: Post op pre visit XR per sta ff message Start: 01-10-2025 End: 01-10-2025 Patient encounter procedure [facility] Comment on above: Post op Start: 01-04-2025 End: 01-04-2025 Patient encounter procedure 01/04/2025 2:30 PM EDT [facility] [address] [place] [address] Cris Singh, DO [address] [place] [address] [facility] Start: 12-28-2024 Adult BMI Screening Adult BMI Screen ing [facility] Start: 12-28-2024 Depression Screening Depression Scre ening [facility] Start: 12-28-2024 Tobacco Screening Tobacco Screening [facility] Start: 12-13-2024 End: 12-13-2024 Patient encounter procedure 12/13/2024 1:30 PM EDT [facility] [address] [place] [address] Cris Singh, DO [address] [place] [address] [facility] Start: 12-06-2024 Adult BMI Screening Adult BMI Screen ing [facility] Start: 12-06-2024 Tobacco Screening Tobacco Screening [facility] Start: 12-01-2024 End: 12-01-2024 Patient encounter procedure 12/01/2024 2:15 PM EDT Office Visit [facility] [address] [place] [phone] Ernie Rankin, KOLE.CUPOLA MAN [address] Mail Code [address] [place] [address] Post op [facility] Comment on above: Post op Start: 11-16-2024 End: 11-16-2024 Admission to same day surgery center [facility] Operating Room Comment on above: CERVICAL LAMINOPLAST Y WITH DECOMPRESSION 2 OR MORE SEGMENTS Start: 11-16-2024 End: 11-16-2024 Lamop cervical w/dcmprn spi cord 2/> vert seg CERVICAL LAMINOPLASTY WITH DECOMPRESSION 2 OR MORE SEGMENTS Cervical spinal stenosis Cervical spondylosis with myelopathy Pre-op testing 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) Anemia following surgery 11/16/2024 7:30 AM EDT [facility] Start: 11-16-2024 Subsequent hospital visit by physician [facility] Comment on above: Cervical spinal sten osis [M48.02], Cervical spondylosis with myelopathy [M47.12], Pre-op testing [Z01.818], 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 [address] [place] [address] Jus Wisdom MD [address] [place] [id number] Pre op Spine Surgery [facility] Comment on above: Pre op Start: 10-25-2024 End: 10-25-2024 ambulatory 10/25/2024 2:45 PM EDT Results Only [facility] Draw Station [address] [place] [address] Pre op [facility] Comment on above: Pre op Start: 10-25-2024 End: 01-24-2025 Comprehensive metabolic 2000 panel - Serum or Plasma [facility] Work Phone: Comment on above: Expected: 10/25/2024 , Expires: 01/24/2025 Start: 10-25-2024 End: 01-24-2025 CONFIRM BLOOD TYPE [facility] Comment on above: Expected: 10/25/2024 , Expires: 01/24/2025 Start: 10-25-2024 End: 04-09-2025 STAPHYLOCOCCUS AUREUS & MRSA SCREEN, PCR, NASAL STAPHYLOCOCCUS AUREUS & MRSA SCREEN, PCR, NASAL Lab Routine Cervical spinal stenosis Cervical spondylosis with myelopathy Pre-op testing 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) Anemia following surgery Expected: 10/25/2024, Expires: 04/09/2025 [facility] Comment on above: Expected: 10/25/2024 , Expires: 04/09/2025 Start: 10-25-2024 End: 10-25-2024 Anesthesia consultation 10/25/2024 1:40 PM EDT PAT Pre Anesthesia [address] [place] [address] 1, [address] [place] [address] [place] [address] Pre op Pre [facility] Comment on above: Pre op Start: 10-11-2024 End: 01-10-2025 CBC W Auto Differential panel - Blood COMPLETE BLOOD COUNT AND DIFFERENTIAL Lab Routine Cervical spinal stenosis Cervical spondylosis with myelopathy Pre-op testing 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) Anemia following surgery Expected: 10/11/2024, Expires: 01/10/2025 [facility] Comment on above: Expected: 10/11/2024 , Expires: 01/10/2025 Start: 10-11-2024 End: 01-10-2025 Ferritin [Mass/volume] in Serum or Plasma FERR[facility] Lab Routine Cervical spinal stenosis Cervical spondylosis with myelopathy Pre-op testing 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) Anemia following surgery Expected: 10/11/2024, Expires: 01/10/2025 [facility] Comment on above: Expected: 10/11/2024 , Expires: 01/10/2025 Start: 10-11-2024 End: 01-10-2025 Iron and Iron binding capacity panel - Serum or Plasma IRON AND TIBC Lab Routine Cervical spinal stenosis Cervical spondylosis with myelopathy Pre-op testing 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) Anemia following surgery Expected: 10/11/2024, Expires: 01/10/2025 [facility] Comment on above: Expected: 10/11/2024 , Expires: 01/10/2025 Start: 10-11-2024 End: 01-10-2025 RETICULOCYTE, HEMOGLOBIN RETICULOCYTE, HEMOGLOBIN Lab Routine Cervical spinal stenosis Cervical spondylosis with myelopathy Pre-op testing 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) Anemia following surgery Expected: 10/11/2024, Expires: 01/10/2025 [facility] Comment on above: Expected: 10/11/2024 , Expires: 01/10/2025 Start: 09-26-2024 End: 09-26-2024 Patient encounter procedure LEONARDO SMITH Comment on above: Arrived Start: 08-22-2024 End: 08-22-2024 Patient encounter procedure 08/22/2024 2:30 PM EST Office Visit [facility] [address] [facility] [place] [address] Cris Singh DO [address] [facility] [address] [facility] Start: 06-15-2024 End: 06-15-2024 Patient encounter procedure 06/15/2024 2:40 PM EST Office Visit [facility] [address] [place] [address] Savita Alcantara NP [address] [place] [address] [facility] [address] [address] Start: 06-01-2024 End: 06-01-2024 Patient encounter procedure 06/01/2024 1:10 PM EDT Office Visit [facility] [address] [place] [address] Paola Garay MD [address] [place], [place] [id number] [facility] Start: 05-25-2024 End: 05-25-2024 Clinical Support 05/25/2024 2:30 PM EDT Clinical Support [facility] [address] [place] [id number] Shelby Torres, [facility] [address] [address] [facility] Start: 05-19-2024 End: 05-19-2024 Patient encounter procedure 05/19/2024 12:30 PM EDT Office Visit [facility] [address] [facility] [place] [phone] Cris Singh, DO [address] [address] [facility] Start: 05-17-2024 End: 05-17-2025 MR Cervical spine WO and W contrast IV MR cervical spine w and wo contrast Imaging Routine Weakness of right upper extremity Expected: 05/17/2024 (Approximate), Expires: 05/17/2025 [facility] Work Phone: Comment on above: Expected: 05/17/2024 (Approximate), Expires: 05/17/2025 Start: 05-12-2024 End: 05-12-2024 Patient encounter procedure [facility] [address] Comment on above: Lumbar radiculopathy (Primary Dx); Weakness of right lower extremity; Polyneuropathy; Weakness of right upper extremity Start: 05-10-2024 End: 05-10-2024 Patient encounter procedure 05/10/2024 2:30 PM EDT Procedure Visit [facility] [address] [address] [place] [phone] Deanna Mejia, DO [address] [place] [address] [address] [facility] [address] Comment on above: Arrived Start: 04-26-2024 End: 04-26-2024 Patient encounter procedure 04/26/2024 2:00 PM EDT Office Visit [facility] [address] [place] [address] Cris Singh, DO [address] [place] [address] [facility] Start: 04-03-2024 COVID-19 Vaccine () COVID-19 Vaccine () [facility] Start: 04-03-2024 COVID-19 Vaccine () COVID-19 Vaccine () [facility] Start: 04-03-2024 Influenza vaccination N [facility] Start: 03-08-2024 End: 03-08-2024 Patient encounter procedure 03/08/2024 1:45 PM EDT [facility] [address] [place] [address] Cris Singh, DO [address] [place] [address] [facility] - [facility] Start: 12-25-2023 Depression Screening Depression Scre [facility] Start: 12-07-2023 End: 12-06-2024 MR Brain WO contrast MR brain without contrast Imaging Routine Traumatic brain injury, 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 with patient surviving, initial encounter ([facility]) Expected: 12/07/2023, Expires: 12/06/2024 [facility] Work Phone: Comment on above: Expected: 12/07/2023 , Expires: 12/06/2024 Start: 04-03-2023 COVID-19 Vaccine ( season) COVID-19 Vaccine ( season) [facility] Start: 2021 Prostate specific antigen measurement Prostate Cancer Screening Discussion [facility] Start: 2016 Administration of varicella zoster vaccine Zoster (Shingles) Vaccine (1 of 2) [facility] Start: 2016 Pneumococcal Vaccine : 50+ (1 of 1 - PCV) Pneumococcal Vaccine: 50+ (1 of 1 - PCV) [facility] Start: 2016 Shingrix Vaccine (1 of 2) Shingrix Vaccine (1 of 2) [facility] Start: 10-28-2011 Prostate specific antigen measurement Prostate Cancer Screening Discussion [facility] Start: 10-28-2011 Screening for malign ant neoplasm of colon [facility] Start: 1985 DTaP,Tdap and Td Vaccines (1 - Tdap) DTaP,Tdap and Td Vaccines (1 - Tdap) [facility] Start: 1985 Hepatitis B Vaccine (1 of 3 - 19+ 3-dose series) Hepatitis B Vaccine (1 of 3 - 19+ 3-dose series) [facility] Start: 1985 Pneumococcal Vaccine : 50+ (1 of 2 - PCV) Pneumococcal Vaccine: 50+ (1 of 2 - PCV) [facility] Start: 1985 Urine microalbumin profile DTaP,Tdap,Td Vaccine (1 - Tdap) [facility] Start: 1984 Adult BMI Follow Up Plan Adult BMI F ollow Up Plan [facility] Start: 1984 Annual PCP Team [employer] joseifna Disease Visit Annual PCP Team Chronic Disease Visit [facility] Start: 1984 Anxiety Screening Anxiety Screening [facility] Start: 1984 BP Controlled (<130/80) BP Controlle d (<130/80) [facility] Start: 1984 Depression Screening Depression Scre ening [facility] Start: 1984 Hepatitis C screening Hepatitis C Sc yesy [facility] Start: 1984 HIV screening HIV Screening [facility] Start: 1966 Screening for malign ant neoplasm of colon [facility] Start: 1966 Tobacco Counseling Tobacco Counselin ca [facility] End: 09-24-2025 CT Cervical spine WO contrast CT CERVICAL SPINE WO IVCON Radiology Routine Spinal stenosis of cervical region 1 Occurrences starting 08/25/2024 until 09/24/2025 [facility] Work Phone: Comment on above: 1 Occurrences starti ng 08/25/2024 until 09/24/2025 ECG COMPLETE ECG COMPLETE ECG Routine Pre-op evaluation 10/25/2024 1:58 PM EDT [facility] Lamop cervical w/dcm prn spi cord 2/> vert seg CERVICAL LAMINOPLASTY WITH DECOMPRESSION 2 OR MORE SEGMENTS Cervical spinal stenosis Cervical spondylosis with myelopathy Pre-op testing 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) Anemia following surgery KAREN OR POCT EKG POCT EKG ECG Rou vilma Tachycardia 12/07/2023 2:32 PM EDT [facility] REFER FOR ADMIT INTERVIEW REFER FOR ADMIT INTERVIEW Procedures Routine Cervical spinal stenosis Cervical spondylosis with myelopathy Pre-op testing 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) Anemia following surgery Ordered: 10/11/2024 [facility] Work Phone: Comment on above: Ordered: 10/11/2024 TYPE AND SCREEN,30 DAY TYPE AND SCREEN,30 DAY Blood Bank Routine Pre-op evaluation 10/25/2024 2:49 PM EDT [facility] End: 08-19-2025 XR CERV OTHER 4V AP/LAT/FLX/EXT XR CERV OTHER 4V AP/LAT/FLX/EXT Radiology Routine Cervical stenosis of spinal canal 1 Occurrences starting 07/20/2024 until 08/19/2025 [facility] Comment on above: 1 Occurrences starti ng 07/20/2024 until 08/19/2025 End: 11-10-2025 XR Cervical spine AP and Lateral XR CERV GENERAL 2V AP/LAT Radiology Routine Cervical spinal stenosis Cervical spondylosis with myelopathy Pre-op testing 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) Anemia following surgery 1 Occurrences starting 10/11/2024 until 11/10/2025 [facility] Comment on above: 1 Occurrences starti ng 10/11/2024 until 11/10/2025 End: 08-19-2025 XR Lumbar spine Views W flexion and W extension XR LUMBAR MOTION 4V AP/LAT/ FLEX/EXT Radiology Routine Spinal stenosis, lumbar region with neurogenic claudication 1 Occurrences starting 07/20/2024 until 08/19/2025 [facility] Work Phone: Comment on above: 1 Occurrences starti ng 07/20/2024 until 08/19/2025 Payers Date Payer Category Payer Self-pay [id number] 2023 Blue Cross Blue Shield BCBS Memb er Subscriber Plan / Payer (Effective 2023-Present) Name: Bee Harris Relation to Subscriber: Self Name: Bee Harris Payer ID: Not on file Type: Not on file Address: [address] [place] [phone] 2023 Blue Cross [facility] - Other ANTHEM [id number] 2023 Unknown [id number] 2023 Unknown [id number]. 1.13.693.2. [id number] 2022 Medicaid HMO [employer] [id number] 2020 Medicaid [id number] [id number]. [id number] 2020 Private Health Insurance [facility] MEDICAID [id number] 2020 Medicaid [id number] 1965 Unknown [id number] 2.0.1.689529.3.579.2. 593 1966 Unknown [id number] 2.840.1.218305.3.579.2. 593 1966 Unknown [id number] 2.840.1.964927.3.579.2. 1286 1966 Unknown [id number] 2.840.1.098953.3.579.2. 1286 1966 Unknown [id number] 2.0.1.335723.3.579.2. 128 1966 Unknown [id number] 2.16840.1.301177.3.579.2. 196 1966 Unknown [id number] 2.16840.1.343602.3.579.2. 196 1966 Unknown [id number] 2.16.840.1.110321.3.579.2. 196 1966 Unknown [id number] 2.16.840.1.043331.3.579.2. 196 1966 Unknown [id number] 2.16.840.1.551899.3.579.2. 1286 1966 Unknown [id number] 2.16.840.1.636414.3.579.2. 128 1966 Unknown [id number] 2.16.840.1.897323.3.579.2. 128 1966 Unknown [id number] 2.16.840.1.768779.3.579.2. 1285 1966 Unknown [id number] 2.16.840.1.500150.3.579.2. 1285 1966 Unknown [id number] 2.16.840.1.607870.3.579.2. 1285 1966 Unknown [id number] 2.16.840.1.308806.3.579.2. 128 1966 Unknown [id number] 2.16.840.1.468934.3.579.2. 727 1966 Unknown [id number] 2.16.840.1.293574.3.579.2. 9 1966 Unknown [id number] 2.16.840.1.983945.3.579.2. 1259 1966 Unknown [id number] 2.16.840.1.968472.3.579.2. 1259 1966 Unknown [id number] 2.16.840.1.205023.3.579.2. 9 1966 Unknown [id number] 2.16.840.1.608366.3.579.2. 1259 1966 Unknown [id number] 2.16.840.1.480876.3.579.2. 1259 1966 Unknown [id number] 2.16.840.1.996087.3.579.2. 1258 1966 Unknown [id number] 2.16.840.1.589506.3.579.2. 1258 1966 Unknown [id number] 2.16.840.1.113645.3.579.2. 1258 1966 Unknown [id number] 2.16.840.1.743397.3.579.2. 1258 1966 Unknown [id number] 2.16.840.1.707836.3.579.2. 1258 1966 Unknown [id number] 2.16.840.1.274745.3.579.2. 1258 1966 Unknown [id number] 2.16.840.1.698893.3.579.2. 1259 1959 Self-pay [id number] 1959 Unknown [id number] Medicaid [employer] [id number] Unknown [id number] 2.16.840.1.112769.3.579.2. 531 Social History Date Type Detail Facility Start: 08-20-2020 Tobacco smoking status [facility] Smoker (finding) [facility] Start: 1965 Sex Assigned At Male [facility] Start: 12-07-2023 End: 01-18-2024 Tobacco smoking status [facility] Smokes tobacco daily [facility] History of tobacco use Cigarette Smoker P [facility] Start: 12-07-2023 End: 01-18-2024 Tobacco use and exposure Smokeless tobacco non-user [facility] Start: 12-29-2023 End: 03-08-2024 Alcoholic beverage intake Current drinker of alcohol (finding) [facility] Start: 10-16-2020 End: 03-08-2024 History of Social function [facility] Start: 10-16-2020 End: 03-08-2024 Tobacco use panel [facility] Start: 1965 Sex assigned at Not on file [facility] Start: 05-19-2024 End: 02-22-2025 Alcoholic beverage intake Ex-drinker (finding) [facility] Do you belong to any clubs or organizations such as mandaen groups, unions, fraternal or athletic groups, or school groups? No [facility] Are you now , , , , never or living with a partner? Never [facility] How hard is it for y ou to pay for the very basics like food, housing, medical care, and heating Somewhat hard [facility] Adolescent depressio n screening assessment 0 [facility] Start: 04-28-2024 Alcohol Comment once a while [facility] Start: 03-08-2015 Sex Male (finding) [facility] (I/We) worried [facility] (my/our) food would run out before (I/we) got money to buy more. Never true [facility] In the past 12 month s, was there a time when you were not able to pay the mortgage or rent on time? Yes [facility] Medical Equipment Procedure Code Equipment Code Equipment Origin al Text Equipment Identifier Dates Plate Canopy 7mm Bone Shelf Inline Spine [id number] Start: 11-16-2024 Screw Canopy 2.6 mm 4mm Bone Self Drill Laminoplasty Spine - [id number] Start: 11-16-2024 Canopy 2.6mm Scr ew Self-Drilling 6mm [id number] Start: 11-16-2024 Goals Date Patient Goal Desired Activity /State [...] is planning to transition to inpatient rehab. Functional Status Date Assessment Result Facility 11-19-2024 Are you deaf, or do you have serious difficulty hearing No 11/19/2024 11:04 AM Lisa Chandler, JUANITA No [facility] 11-19-2024 Are you blind, or do you have serious difficulty seeing, even when wearing glasses No 11/19/2024 11:04 AM EDT Lisa Sheridan RN No [facility] 11-19-2024 Do you have serious difficulty walking or climbing stairs No 11/19/2024 11:04 AM EDT Lisa Sheridan RN No [facility] 11-19-2024 Do you have difficul ty dressing or bathing No 11/19/2024 11:04 AM EDT Lisa Sheridan RN No [facility] 11-19-2024 Because of a physica l, mental, or emotional condition, do you have difficulty doing errands alone such as visiting a physician's office or shopping No 11/19/2024 11:04 AM EDT Lisa Sheridan RN No [facility] Mental Status Date Assessment Result Facility 11-19-2024 Because of a physica l, mental, or emotional condition, do you have serious difficulty concentrating, remembering, or making decisions No 11/19/2024 11:04 AM EDT Lisa Sheridan RN No [facility] Clinical Notes 12-07-2023 to 03-16-2025 Rogelio Conway DPM - 03/16/2025 4:20 PM EDTTelephone Encounter - Rogelio Conway DPM - 03/08/2025 9:08 AM EDTTelephone Encounter - Rogelio Conway DPM - 03/08/2025 9:08 AM EDT Note Date & Type Note Facility 03-16-2025 History of Present illness Narrative Patient: Bee Harris : 1965 PCP: Cris Singh MD SUBJECTIVE This is a 59 y.o. male that presents today 8 days s/p left 2nd toe amputation Pt denies n/f/v/c and has minimal pain to post op site. Pt states that they have been keeping dressing dry and intact and have been partial weight-bearing to post op foot Pt presents today for follow up. Allergies: No Known Allergies Past Medical History: Past Medical History: Diagnosis Date B12 deficiency Carpal tunnel syndrome Cataracts, bilateral Glaucoma History of degenerative disc disease Hyperlipidemia Lumbar radiculopathy Meniere's disease Polyneuropathy Smoker Traumatic brain injury ([facility]) Medications: Current Outpatient Medications: acetaminophen (Tylenol) 500 MG tablet, Take 500 [...] in the morning., Disp: , Rfl: HYDROcodone-acetaminophen (Shinglehouse) 7.5-325 MG tablet, Take 1 tablet by mouth 2 (two) times a day as needed, Disp: , Rfl: latanoprost (Xalatan) 0.005 % ophthalmic solution, INSTILL ONE DROP IN EACH EYE BEFORE BED, Disp: , Rfl: meloxicam (Mobic) 15 MG tablet, Take 15 mg by mouth in the morning., Disp: , Rfl: methocarbamol (Robaxin) 750 MG tablet, Take 750 mg by mouth in the morning and 750 mg at noon and 750 mg in the evening and 750 mg before bedtime., Disp: , Rfl: naloxone (Narcan) 4 mg/0.1 mL nasal spray, , Disp: , Rfl: pregabalin (Lyrica) 75 MG capsule, Take 75 mg by mouth in the morning and 75 mg in the evening and 75 mg before bedtime., Disp: , Rfl: topiramate 50 MG tablet, TAKE 1 TABLET (50 MG TOTAL) BY MOUTH IN THE EVENING., Disp: , Rfl: ROS: General: denies fever, chills, fatigue, malaise OBJECTIVE LE EXAM: Derm: Sutures intact to left foot with negative erythema, negative drainage, minimal edema with negative clinical signs of infection. Vascular: Palpable pedal pulses to left foot Neuro: Gross sensation intact to left foot. Musculoskeletal: Negative pain on palpation toleft calf. Ortho: Ankle range of motion less than 10 degrees of dorsiflexion at left ankle joint. ASSESSMENT 8 days s/p left 2nd toe amputation 1. Acquired deformity of left toe PLAN Patient to keep dry sterile dressing intact and keep dressing dry with partial weightbearing. Patient may take anti-inflammatories as needed for pain. May continue with ice to foot as needed p.r.n. Rogelio Conway DPM documented in this encounter [facility] 03-08-2025 Telephone encounter Note Pt refill of pain medication due to sx today [facility] 03-08-2025 Miscellaneous Notes Pt refill of pain medication due to sx today documented in this encounter [facility] 02-22-2025 History of Present illness Narrative IM PROGRESS NOTE Patient - Bee Harris Age - 59 [facility] 1965 [id number] ASSESSMENT & PLAN 1. Hammer toe of left foot (Primary) -2nd toe of the left foot -it negatively affects his already altered gait due to chronic lumbar radiculopathy and cervical myelopathy 2. Intractable chronic post-traumatic headache -continues to have posttraumatic headache with some component of migraine -restart topiramate 50 mg nightly - topiramate (TOPAMAX) 50 mg tablet; Take 1 tablet (50 mg total) by mouth in the evening. TAKE 1 TABLET (50 MG TOTAL) BY MOUTH IN THE MORNING AND 1 TABLET (50 MG TOTAL) BEFORE BEDTIME. Dispense: 90 tablet; Refill: 1 3. Tobacco abuse -continues on bupropion for smoking cessation -has been successful so far - buPROPion XL (WELLBUTRIN XL) 150 mg 24 hr tablet; Take 1 tablet (150 mg total) by mouth every morning. Dispense: 90 tablet; Refill: 1 Clinical predictors indicate adequate cardiopulmonary functional capacity. Revised Cardiac Risk Index indicates Class II risk - 1 pt - (low risk) - 0.9% complications. Pulmonary evaluation indicates no evidence of lung disease. Pulmonary disease will not require special monitoring ailyn-operatively. Risk stratification indicates a low risk for complications. Subjective PRE-OPERATIVE EVALUATION Patient is being seen at the request of Dr. Rogelio Conway The patient is scheduled for a left 2nd toe removal On: 03/08/2025 The patient is able to to perform the following activities requiring 4 METS: Walk briskly on level ground FUNCTIONAL CAPACITY: 4-6 METS If the planned procedure is emergent, a complex thoracic, cardiac, aortic valve, open peripheral arterial or longer than 4 hours, then score 1 point, otherwise 0: 0 If ACC/AHA Cardiovascular risk score >7.5%, or ASCVD Risk Board Mill Supervisor >5%, then score 1 point, otherwise 0: 1 If the patient has a personal history of CABG or cardiac stents, Myocardial infarction or heart attack, Positive or abnormal stress test, Exertional angina, Current use of nitrates or nitroglycerin, or Pathologic Q waves on EKG score 1 point, otherwise 0: 0 IF the patient has a personal history of Pulmonary edema, Paroxysmal nocturnal dyspnea/Orthopnea, Bibasilar crackles on exam, an S3 gallop, CXR with evidence of vascular congestion, or an Echocardiogram with LVEF <50% score 1 point, otherwise 0: 0 If the patient has a personal history of Stroke or TIA, score 1 point, otherwise 0: 0 If the patient has a personal history of Diabetes, score 1 point, otherwise 0: 0 If the patient has a personal history of Serum creatinine >2.0 mg/dl, score 1 point, otherwise 0: 0 TOTAL POINTS - REVISED CARDIAC RISK INDEX (RCRI) SCORE: 1 REVISED CARDIAC RISK INDEX SCORE CLASSIFICATION: Class II risk - 1 pt - (low risk) - 0.9% complications RESPIRATORY EVALUATION Clinical respiratory risk factors include a history or active RYLAND Previous pulmonary evaluation includes: PFT or spirometry? no Which was not applicable Patient did quit smoking last year Sleep study? no Which was abnormal patient not currently on treatment Current respiratory treatments include nothing Last exacerbation of their pulmonary problem was several months ago. A review of systems was negative except for the following: Musculoskeletal: gait disturbance, joint stiffness, and pain in back - lower, upper and neck - lower, upper Neurological: headaches and neck pain. Exam BP 128/80 (BP Site: Left Arm, BP Postition: Sitting) Pulse 63 Temp 36.7 C (98 F) (Tympanic) Resp 18 Ht 180.3 cm (5' 10.98 ) Wt 89.7 kg (197 lb 12.8 oz) SpO2 96% BMI 27.60 kg/m Physical Exam Vitals reviewed. Constitutional: General: [...] Palpations: Abdomen is soft. Musculoskeletal: General: Deformity (Hammertoe deformity of the 2nd left toe, and hallux valgus of the right great toe and subsequent anterior deformity of the 2nd right toe.) present. Cervical back: Tenderness (Bilateral paraspinals) present. Right lower leg: No edema. Left lower leg: No edema. Lymphadenopathy: Cervical: No cervical adenopathy. Skin: General: Skin is warm and dry. Coloration: Skin is not jaundiced. Findings: No bruising. Comments: Dry, yellow, brittle nails on both feet including the great toe and 2nd toes bilaterally Neurological: Mental Status: He is alert and [...] right; 4/5 left) present. Gait: Gait abnormal (Ataxic, using a cane). Psychiatric: Mood and Affect: Mood normal. Behavior: Behavior normal. Meds Current Outpatient Medications: acetaminophen (TYLENOL EXTRA STRENGTH) 500 mg tablet, Take 2 tablets (1,000 mg total) by mouth., Disp: , Rfl: cyanocobalamin 1000 MCG tablet, Take 1 tablet (1,000 mcg total) by mouth. TAKE 1 TABLET (1,000 MCG TOTAL) BY MOUTH IN THE MORNING, Disp: , Rfl: latanoprost (XALATAN) 0.005 % ophthalmic solution, Administer 1 drop to both eyes nightly., Disp: , Rfl: meloxicam (MOBIC) 15 mg tablet, TAKE 1 TABLET (15 MG TOTAL) BY MOUTH IN THE MORNING, Disp: 30 tablet, Rfl: 2 methocarbamoL (ROBAXIN) 750 mg tablet, Take 1 tablet (750 mg total) by mouth in the morning and 1 tablet (750 mg total) at noon and 1 tablet (750 mg total) in the evening and 1 tablet (750 mg total) before bedtime., Disp: , Rfl: naloxone (NARCAN) 4 mg/actuation spray,non-aerosol nasal spray, Administer 1 spray (4 mg total) into alternating nostrils as needed for opioid reversal., Disp: , Rfl: oxyCODONE (ROXICODONE) 5 mg immediate release tablet, TAKE 1 TABLET BY MOUTH EVERY 6 HOURS NEEDED FOR PAIN FOR UP TO 7 DAYS. FOR PAIN., Disp: , Rfl: pregabalin (LYRICA) 200 mg capsule, Take 1 capsule (200 mg total) by mouth., Disp: , Rfl: atorvastatin (LIPITOR) 40 mg tablet, Take 1 tablet (40 mg total) by mouth in the morning. Indications: excessive fat in the blood. (Patient not taking: Reported on 02/22/2025), Disp: 90 tablet, Rfl: 1 buPROPion XL (WELLBUTRIN XL) 150 mg 24 hr tablet, Take 1 tablet (150 mg total) by mouth every morning., Disp: 90 tablet, Rfl: 1 topiramate (TOPAMAX) 50 mg tablet, Take 1 tablet (50 mg total) by mouth in the evening. TAKE 1 TABLET (50 MG TOTAL) BY MOUTH IN THE MORNING AND 1 TABLET (50 MG TOTAL) BEFORE BEDTIME., Disp: 90 tablet, Rfl: 1 Lab Results No visits with results within 1 Month(s) from this visit. Latest known visit with results is: Office Visit on 12/13/2024 Component Date Value Ref Range Status CHOLESTEROL 12/13/2024 226 (H) 150 - 200 mg/dL Final TRIGLYCERIDE 12/13/2024 165 (H) 27 - 150 mg/dL Final HDL CHOLESTEROL 12/13/2024 66 >39 mg/dL Final LDL (CALC) 12/13/2024 127 <130 mg/dL Final CHOLESTEROL:HDL 12/13/2024 3.4 1.0 - 5.0 Final VERY LOW LIPOPROTEIN 12/13/2024 33 (H) 0 - 30 mg/dL Final SODIUM 12/13/2024 142 134 - 146 mmol/L Final POTASSIUM 12/13/2024 4.2 3.5 - 5.0 mmol/L Final CHLORIDE 12/13/2024 111 (H) 98 - 109 mmol/L Final CARBON DIOXIDE 12/13/2024 25 22 - 32 mmol/L Final ANION GAP 12/13/2024 6 5 - 15 mmol/L Final BLOOD UREA NITROGEN 12/13/2024 23 5 - 23 mg/dL Final CREATININE 12/13/2024 0.92 0.60 - 1.30 mg/dL Final GLUCOSE 12/13/2024 99 65 - 99 mg/dL Final CALCIUM 12/13/2024 9.6 8.5 - 10.5 mg/dL Final TOTAL PROTEIN 12/13/2024 7.0 6.0 - 8.0 g/dL Final ALBUMIN 12/13/2024 4.6 3.2 - 5.3 g/dL Final ALKALINE PHOSPHATASE 12/13/2024 63 39 - 130 U/L Final AST 12/13/2024 20 <=41 U/L Final ALT 12/13/2024 17 <=40 U/L Final BILIRUBIN,TOTAL 12/13/2024 0.3 0.3 - 1.2 mg/dL Final EGFR Non-Race Dependent 12/13/2024 >90 >=60 ml/min/1.73sq.m Final VITAMIN B12 12/13/2024 1,213 (H) 180 - 914 pg/mL Final Other Testing No results found. ECG: Cris Singh DO., [facility] Office: [phone] documented in this encounter [employer] 02-21-2025 Note HNO ID: [id number] Author: JUS WISDOM MD Service: ? Author Type: Physician Type: Progress Notes Filed: 02/21/2025 15:03 Note Text: SPINE SURGERY FOLLOW UP This is an in-person visit. SERVICE DATE: 02/21/2025 SURGERY DATE: 11/16/2024 SURGERY: C3-C5 laminoplasty INDICATIONS: balance issues and fine motor tasks issues. Cervical MRI revealed severe stenosis from C3-C5 eBe Harris is seen for 3 month post operative follow up. Ar reports that he is doing okay. Continues to report his chronic neck pain. He understood that this was a possibility given his significant degenerative changes on his preoperative imaging. But he desire to retain as much motion as possible. He is on narcotics back with his home provider ANTIPLATELET OR ANTICOAGULATION STATUS: No Patient Entered [...] severe depression 20-27 Severe depression PHYSICAL EXAM: BP 157/94 Pulse 68 GENERAL APPEARANCE: Well nourished, well developed, and no apparent distress. NEURO PSYCH: Patient oriented to person, place, and time. Mood pleasant. Benign affect. MUSCULOSKELETAL VISUAL INSPECTION CERVICAL: WNL THORACIC: WNL LUMBAR: WNL MOTOR: 5/5 in all muscle groups. SENSORY: Normal sensory exam GAIT: Normal. REFLEXES: +2 to bilateral U/L extremities. DATA REVIEW [facility] records independently reviewed Upright x-rays reviewed demonstrating post laminoplasty changes. No evidence of head drop ASSESSMENT/PLAN (M47.12) Cervical spondylosis with myelopathy (primary encounter diagnosis) Bee Harris will continue with medical management of his/her condition. 1. No restrictions as he is beyond 12 weeks post laminoplasty. He will participate in a home exercise program. He will see us back in 3 months time which is 6 months postoperatively with previsit x-rays. All questions were answered thank for the counter agreement plan 2. Follow up: Following above Imaging Ordered: XR cervical The majority of the visit was spent counseling and/or coordinating care for the patient. The patient was counseled regarding cervical myelopathy. Total face to face time was 15 minutes. SIGNATURE: Jus Wisdom MD PATIENT NAME: Bee Harris DATE: February 21, 2025 TIME: 3:01 PM PAGER: [facility] 02-21-2025 History of Present illness Narrative SPINE SURGERY FOLLOW UP This is an in-person visit. SERVICE DATE: 02/21/2025 SURGERY DATE: 11/16/2024 SURGERY: C3-C5 laminoplasty INDICATIONS: balance issues and fine motor tasks issues. Cervical MRI revealed severe stenosis from C3-C5 Bee Harris is seen for 3 month post operative follow up. Ar reports that he is doing okay. Continues to report his chronic neck pain. He understood that this was a possibility given his significant degenerative changes on his preoperative imaging. But he desire to retain as much motion as possible. He is on narcotics back with his home provider ANTIPLATELET OR ANTICOAGULATION STATUS: No Patient Entered [...] severe depression 20-27 Severe depression PHYSICAL EXAM: BP 157/94 Pulse 68 GENERAL APPEARANCE: Well nourished, well developed, and no apparent distress. NEURO PSYCH: Patient oriented to person, place, and time. Mood pleasant. Benign affect. MUSCULOSKELETAL VISUAL INSPECTION CERVICAL: WNL THORACIC: WNL LUMBAR: WNL MOTOR: 5/5 in all muscle groups. SENSORY: Normal sensory exam GAIT: Normal. REFLEXES: +2 to bilateral U/L extremities. DATA REVIEW [facility] records independently reviewed Upright x-rays reviewed demonstrating post laminoplasty changes. No evidence of head drop ASSESSMENT/PLAN (M47.12) Cervical spondylosis with myelopathy (primary encounter diagnosis) Bee Harris will continue with medical management of his/her condition. 1. No restrictions as he is beyond 12 weeks post laminoplasty. He will participate in a home exercise program. He will see us back in 3 months time which is 6 months postoperatively with previsit x-rays. All questions were answered thank for the counter agreement plan 2. Follow up: Following above Imaging Ordered: XR cervical The majority of the visit was spent counseling and/or coordinating care for the patient. The patient was counseled regarding cervical myelopathy. Total face to face time was 15 minutes. SIGNATURE: Jus Wisdom MD PATIENT NAME: Bee Harris DATE: February 21, 2025 TIME: 3:01 PM PAGER: documented in this encounter [facility] 02-13-2025 Miscellaneous Notes Scheduled. Summary: Appointment Info Attempted to call pt at number provided in chart, [facility] letting pt know he needs an xray prior to his appointment with Dr. Wisdom on 02/21. Nothing further. documented in this encounter [facility] 02-13-2025 Telephone encounter Note Scheduled. [facility] 02-13-2025 Telephone encounter Note Summary: Appointment Info Attempted to call pt at number provided in chart, [facility] letting pt know he needs an xray prior to his appointment with Dr. Wisdom on 02/21. Nothing further. [facility] 02-07-2025 History of Present illness Narrative SPINE SURGERY FOLLOW UP This is a virtual visit using Audio Only Visit. It required patient-provider interaction for the medical decision making as documented below. I have communicated my name and active licensure. The patient's identity and physical location were verified at the time of this visit. Either the patient or their legal accounts receivable representative has been informed of the risks and benefits of -- and alternatives to -- treatment through a remote evaluation and consents to proceed with the evaluation remotely. SERVICE DATE: 02/07/2025 SURGERY DATE: 11/16/2024 SURGERY: C3-C5 laminoplasty INDICATIONS: balance issues and fine motor tasks issues. Cervical MRI revealed severe stenosis from C3-C5 Bee Harris is seen for 12 week post operative follow up. He missed his in person 6 week appointment and XR with Dr. Wisdom due to transportation issues. He is doing OK. Reports neck soreness and stiffness. Continues to see some improvement in his upper extremity sensation. He is ambulating with slightly greater ease and using a cane. Using robaxin, tylenol, and Lyrica for pain relief. He is scheduled to follow up with his pain shipping manager tomorrow for continued narcotic prescriptions, as [...] Cervical spondylosis with myelopathy (primary encounter diagnosis) Bee Harris will continue with medical management of his/her condition. 1. Denies red flag symptoms. Recovering as expected. He missed his 6 week appt and XR- we have rescheduled these. OK to increase activity as tolerated. Further narcotic prescriptions will need to come from his pain shipping manager who prescribed them chronically prior to surgery. 2. Follow up: 02/21/25 with XR Imaging Ordered: For routine post operative monitoring The majority of the visit was spent counseling and/or coordinating care for the patient. The patient was counseled regarding cervical spondylosis with myelopathy. Total face to face time was 10 minutes. SIGNATURE: Ernie Rankin APRN.CNP PATIENT NAME: Bee Harris DATE: February 07, 2025 TIME: 2:49 PM PAGER: documented in this encounter [facility] 02-07-2025 Note HNO ID: [id number] Author: ERNIE RANKIN APRN.CNP Service: ? Author Type: Nurse Practitioner Type: Progress Notes Filed: 02/07/2025 14:55 Note Text: SPINE SURGERY FOLLOW UP This is a virtual visit using Audio Only Visit. It required patient-provider interaction for the medical decision making as documented below. I have communicated my name and active licensure. The patient's identity and physical location were verified at the time of this visit. Either the patient or their legal accounts receivable representative has been informed of the risks and benefits of -- and alternatives to -- treatment through a remote evaluation and consents to proceed with the evaluation remotely. SERVICE DATE: 02/07/2025 SURGERY DATE: 11/16/2024 SURGERY: C3-C5 laminoplasty INDICATIONS: balance issues and fine motor tasks issues. Cervical MRI revealed severe stenosis from C3-C5 Bee Harris is seen for 12 week post operative follow up. He missed his in person 6 week appointment and XR with Dr. Wisdom due to transportation issues. He is doing OK. Reports neck soreness and stiffness. Continues to see some improvement in his upper extremity sensation. He is ambulating with slightly greater ease and using a cane. Using robaxin, tylenol, and Lyrica for pain relief. He is scheduled to follow up with his pain shipping manager tomorrow for continued narcotic prescriptions, as [...] Cervical spondylosis with myelopathy (primary encounter diagnosis) Bee Harris will continue with medical management of his/her condition. 1. Denies red flag symptoms. Recovering as expected. He missed his 6 week appt and XR- we have rescheduled these. OK to increase activity as tolerated. Further narcotic prescriptions will need to come from his pain shipping manager who prescribed them chronically prior to surgery. 2. Follow up: 02/21/25 with XR Imaging Ordered: For routine post operative monitoring The majority of the visit was spent counseling and/or coordinating care for the patient. The patient was counseled regarding cervical spondylosis with myelopathy. Total face to face time was 10 minutes. SIGNATURE: Ernie Rankin APRN.CNP PATIENT NAME: Bee Harris DATE: February 07, 2025 TIME: 2:49 PM PAGER: [facility] 01-26-2025 History of Present illness Narrative Patient: Bee Harris : 1965 PCP: Crsi Singh MD SUBJECTIVE This is a 59 y.o. male that presents today for a chief complaint of painful left 2nd crossover toe. Patient's traits he has tried different shoe gear [...] Meniere's disease Polyneuropathy Smoker [place] Medications: Current Outpatient Medications: naloxone (Narcan) 4 [...] in the morning., Disp: , Rfl: HYDROcodone-acetaminophen ([place]) 7.5-325 MG tablet, Take 1 tablet by mouth 2 (two) times a day as needed, Disp: , Rfl: latanoprost (Xalatan) 0.005 % ophthalmic solution, INSTILL ONE DROP IN EACH EYE BEFORE BED, Disp: , Rfl: meloxicam (Mobic) 15 MG tablet, Take 15 [...] Strain: Low Risk (08/21/2022) Received from [facility] Overall Financial Resource Strain (CARDIA) Difficulty of Paying Living Expenses: Not hard at all Food Insecurity: Food Insecurity Present (01/04/2025) Received from [facility] Hunger Screening Within the past 12 months we worried whether our food would run out before we got money to buy more.: Sometimes True Within the past 12 months the food we bought just didn't last and we didn't have money to get more.: Sometimes True Transportation Needs: No Transportation Needs (11/17/2024) Received from [facility] PRAPARE - Transportation Lack of Transportation (Medical): No Lack of Transportation (Non-Medical): No Physical Activity: Sufficiently Active (08/21/2022) Received from [facility] Exercise Vital Sign Days of Exercise per Week: 5 days Minutes of Exercise per Session: 30 min Stress: No Stress Concern Present (08/21/2022) Received from [facility] [place] [employer] - Occupational Stress Questionnaire Feeling of Stress : Not at all Social Connections: Socially Isolated (08/21/2022) Received from [facility] Social Connection and Isolation Panel [NHANES] Frequency of Communication with Friends and Family: More than three times a week Frequency of Social Gatherings with Friends and Family: More than three times a week Attends [employer]ism Services: Never Active Member of Clubs or Organizations: No Attends Club or Organization Meetings: Never Marital Status: Intimate Partner Violence: Unknown (09/24/2023) Received from [facility] [place] Safety & Environment Fear of Current or Ex-Partner: Not on file Emotionally Abused: Not on file Physically Abused: Not on file Sexually Abused: Not on file Physically or Sexually Abused: Not on file Housing Stability: High Risk (11/17/2024) Received from [facility] Housing Stability Vital Sign Unable to [...] Patient may continue with conservative treatments including [id number] anti-inflammatories and other treatments suggested today. Patient may want to be scheduled for surgical intervention in the near future. Patient have left 2nd toe amputation in near future Rogelio Conway DPM documented in this encounter [facility] 01-24-2025 Telephone encounter Note Patient had to cancel his 6 week post op follow up due to his provide a ride did not show up. He is scheduled for 03/28/2025. There was nothing sooner. On wait list. He needs 2 days notice to get ride scheduled. Can we get him in sooner due to being post op? Please advise. [phone] [facility] 01-24-2025 Miscellaneous Notes Patient had to cancel his 6 week post op follow up due to his provide a ride did not show up. He is scheduled for 03/28/2025. There was nothing sooner. On wait list. He needs 2 days notice to get ride scheduled. Can we get him in sooner due to being post op? Please advise. [phone] documented in this encounter [facility] 01-20-2025 Telephone encounter Note Patient requesting pain rx refill. Currently 9 weeks post op. PDMP verified. Refill appropriate. Pain management to take over prescribing from here, given chronic narcotics prior to surgery. Ernie Rankin APRN.CNP [facility] 01-20-2025 Miscellaneous Notes Patient requesting pain rx refill. Currently 9 weeks post op. PDMP verified. Refill appropriate. Pain management to take over prescribing from here, given chronic narcotics prior to surgery. Ernie Rankin APRN.CNP Call to the pt to clarify his follow up schedule for Pain Management. Plan for PM to take over his pain medication at the 12-01-24 The apt was scheduled for 02-05-25 for PM . As per pt- no sooner availability. I have encouraged the pt to reach out and be placed on CX list serafin . Will review with team Neuro SPINE CARE COORDINATION QUICK NOTE SURGERY DATE: 11/16/2024 SURGERY: C3-C5 laminoplasty Post op apt next week Routed to BRITTNY for review. Patient phones requesting refills as follows: Requested Prescriptions Pending Prescriptions Disp Refills oxyCODONE IR (ROXICODONE) 5 mg immediate release tablet 28 tablet 0 Sig: Take 1 tablet by mouth every 6 hours as needed for pain for up to 7 days. Last visit: 12/27/2024 Pharmacy: [facility]/pharmacy #[id number] [place] [address] [address] [facility] [phone] Current Dosage: Patient is currently taking 3 pills/day; Has 2 left. Future OV: 01/24 with MD Please review and advise. Petros Pollard documented in this encounter [facility] 01-20-2025 Telephone encounter Note Call to the pt to clarify his follow up schedule for Pain Management. Plan for PM to take over his pain medication at the 12-01-24 The apt was scheduled for 02-05-25 for PM . As per pt- no sooner availability. I have encouraged the pt to reach out and be placed on CX list serafin . Will review with team [facility] Work Phone: 01-20-2025 Telephone encounter Note Neuro SPINE CARE COORDINATION QUICK NOTE SURGERY DATE: 11/16/2024 SURGERY: C3-C5 laminoplasty Post op apt next week Routed to BRITTNY for review. [facility] 01-20-2025 Telephone encounter Note Patient phones requesting refills as follows: Requested Prescriptions Pending Prescriptions Disp Refills oxyCODONE IR (ROXICODONE) 5 mg immediate release tablet 28 tablet 0 Sig: Take 1 tablet by mouth every 6 hours as needed for pain for up to 7 days. Last visit: 12/27/2024 Pharmacy: [facility]/pharmacy #[id number] [place] [address] - [address] [facility] [phone] Current Dosage: Patient is currently taking 3 pills/day; Has 2 left. Future OV: 01/24 with MD Please review and advise. Petros Pollard [facility] 01-04-2025 History of Present illness Narrative IM PROGRESS NOTE Patient - Bee Harris Age - 59 y.o. - 1965 ASSESSMENT & PLAN 1. Hammer toe of left foot (Primary) -has marked deformity, along with skin changes from rubbing and irritation -referral to Podiatry for more definitive treatment - Ambulatory referral to Podiatry; Future Subjective 59-year-old male presents for evaluation of deformities of both feet, left> right. The deformities have been present for years, and he was previously recommended to have surgery on the right foot, but got canceled due to his other medical issues. He would like to go see Podiatry to have this taken care of. Because of his neuropathic pain and weakness in both legs, and use of cane, it is causing his feet to hurt, as well as developing large corns from his toes and toenails rubbing. -has not had any previous surgery to these areas. A review of systems was negative except for the following: General: weight gain Musculoskeletal: gait disturbance, joint stiffness, and muscular weakness Neurological: impaired coordination/balance, memory loss, and numbness/tingling. Exam BP 136/70 (BP Site: Left Arm, BP Postition: Sitting, BP CUFF SIZE: M (9-13 inches)) Pulse 68 Temp 37.1 C (98.8 F) (Oral) Resp 20 Ht 180.3 cm (5' 10.98 ) Wt 86.2 kg (190 lb) SpO2 97% BMI 26.51 kg/m Physical Exam Vitals reviewed. Constitutional: General: [...] Palpations: Abdomen is soft. Musculoskeletal: General: Deformity (Hammertoe deformity of the 2nd left toe, and hallux valgus of the right great toe and subsequent anterior deformity of the 2nd right toe.) present. Cervical back: Tenderness (Bilateral paraspinals) present. Right lower leg: No edema. Left lower leg: No edema. Lymphadenopathy: Cervical: No cervical adenopathy. Skin: General: Skin is warm and dry. Coloration: Skin is not jaundiced. Findings: No bruising. Comments: Dry, yellow, brittle nails on both feet including the great toe and 2nd toes bilaterally Neurological: Mental Status: He is alert and [...] right; 4/5 left) present. Gait: Gait abnormal (Ataxic, using a cane). Psychiatric: Mood and Affect: Mood normal. Behavior: Behavior normal. Meds Current Outpatient Medications: acetaminophen (TYLENOL EXTRA STRENGTH) 500 mg tablet, Take 2 tablets (1,000 mg total) by mouth., Disp: , Rfl: atorvastatin (LIPITOR) 40 mg tablet, Take 1 tablet (40 mg total) by mouth in the morning. Indications: excessive fat in the blood., Disp: 90 tablet, Rfl: 1 buPROPion XL (WELLBUTRIN XL) 150 mg 24 hr tablet, TAKE 1 TABLET BY MOUTH EVERY DAY IN THE MORNING, Disp: 30 tablet, Rfl: 2 latanoprost (XALATAN) 0.005 % ophthalmic solution, Administer 1 drop to both eyes nightly., Disp: , Rfl: meloxicam (MOBIC) 15 mg tablet, TAKE 1 TABLET (15 MG TOTAL) BY MOUTH IN THE MORNING, Disp: 90 tablet, Rfl: 0 oxyCODONE (ROXICODONE) 5 mg immediate release tablet, TAKE 1 TABLET BY MOUTH EVERY 6 HOURS NEEDED FOR PAIN FOR UP TO 7 DAYS. FOR PAIN., Disp: , Rfl: pregabalin (LYRICA) 200 mg capsule, Take 1 capsule (200 mg total) by mouth., Disp: , Rfl: Lab Results Office Visit on 12/13/2024 Component Date Value Ref Range Status CHOLESTEROL 12/13/2024 226 (H) 150 - 200 mg/dL Final TRIGLYCERIDE 12/13/2024 165 (H) 27 - 150 mg/dL Final HDL CHOLESTEROL 12/13/2024 66 >39 mg/dL Final LDL (CALC) 12/13/2024 127 <130 mg/dL Final CHOLESTEROL:HDL 12/13/2024 3.4 1.0 - 5.0 Final VERY LOW LIPOPROTEIN 12/13/2024 33 (H) 0 - 30 mg/dL Final SODIUM 12/13/2024 142 134 - 146 mmol/L Final POTASSIUM 12/13/2024 4.2 3.5 - 5.0 mmol/L Final CHLORIDE 12/13/2024 111 (H) 98 - 109 mmol/L Final CARBON DIOXIDE 12/13/2024 25 22 - 32 mmol/L Final ANION GAP 12/13/2024 6 5 - 15 mmol/L Final BLOOD UREA NITROGEN 12/13/2024 23 5 - 23 mg/dL Final CREATININE 12/13/2024 0.92 0.60 - 1.30 mg/dL Final GLUCOSE 12/13/2024 99 65 - 99 mg/dL Final CALCIUM 12/13/2024 9.6 8.5 - 10.5 mg/dL Final TOTAL PROTEIN 12/13/2024 7.0 6.0 - 8.0 g/dL Final ALBUMIN 12/13/2024 4.6 3.2 - 5.3 g/dL Final ALKALINE PHOSPHATASE 12/13/2024 63 39 - 130 U/L Final AST 12/13/2024 20 <=41 U/L Final ALT 12/13/2024 17 <=40 U/L Final BILIRUBIN,TOTAL 12/13/2024 0.3 0.3 - 1.2 mg/dL Final EGFR Non-Race Dependent 12/13/2024 >90 >=60 ml/min/1.73sq.m Final VITAMIN B12 12/13/2024 1,213 (H) 180 - 914 pg/mL Final Other Testing No results found. Cris Singh DO., [facility] Office: [phone] documented in this encounter [facility] 12-28-2024 Miscellaneous Notes Spoke with pt and he understood his results. I scheduled him an appt. With Dr. Singh regarding a referral to a Maintenance Equipment Operator. documented in this encounter [facility] 12-28-2024 Telephone encounter Note Spoke with pt and he understood his results. I scheduled him an appt. With Dr. Singh regarding a referral to a Maintenance Equipment Operator. [facility] 12-27-2024 Telephone encounter Note Patient requesting pain rx refill. PDMP verified. Refill appropriate. Ernie Rankin APRN.CUPOLA MAN [facility] 12-27-2024 Miscellaneous Notes Patient requesting pain rx refill. PDMP verified. Refill appropriate. Ernie Rankin APRN.CNP Neuro SPINE CARE COORDINATION QUICK NOTE SURGERY DATE: 11/16/2024 SURGERY: C3-C5 laminoplasty 4 week SP laminoplasty Routed to BRITTNY for review. Patient phones requesting refills as follows: Told pt not sure if the Oxy would be refilled., Pt stated they are almost gone since they only give him 7 days worth. Requested Prescriptions Pending Prescriptions Disp Refills methocarbamol (ROBAXIN) 750 mg tablet 120 tablet 0 Sig: Take 1 tablet by mouth four times daily. oxyCODONE IR (ROXICODONE) 5 mg immediate release tablet 28 tablet 0 Sig: Take 1 tablet by mouth every 6 hours as needed for pain for up to 7 days. Last visit: 12/23/2024 Pharmacy: [id number] Pharmacy Current Dosage: Patient is currently taking 1 tab as needed; Has 16 left. Future OV: 01/24/[address] Wisdom Please review and advise. Marissa Barillas Patient phones requesting refills as follows: Requested Prescriptions Pending Prescriptions Disp Refills methocarbamol (ROBAXIN) 750 mg tablet 120 tablet 0 Sig: Take 1 tablet by mouth four times daily. Last visit: 12/23/2024 Pharmacy: [facility] # [id number] Pharmacy Current Dosage: Patient is currently taking 1 tab every 6 hrs; Has 2 left. Future OV: 01/24/25 with Artis Please review and advise. Marissa Barillas documented in this encounter [facility] 12-27-2024 Telephone encounter Note Neuro SPINE CARE COORDINATION QUICK NOTE SURGERY DATE: 11/16/2024 SURGERY: C3-C5 laminoplasty 4 week SP laminoplasty Routed to BRITTNY for review. [facility] Work Phone: 12-27-2024 Telephone encounter Note Patient phones requesting refills as follows: Told pt not sure if the Oxy would be refilled., Pt stated they are almost gone since they only give him 7 days worth. Requested Prescriptions Pending Prescriptions Disp Refills methocarbamol (ROBAXIN) 750 mg tablet 120 tablet 0 Sig: Take 1 tablet by mouth four times daily. oxyCODONE IR (ROXICODONE) 5 mg immediate release tablet 28 tablet 0 Sig: Take 1 tablet by mouth every 6 hours as needed for pain for up to 7 days. Last visit: 12/23/2024 Pharmacy: [facility] #[id number] Pharmacy Current Dosage: Patient is currently taking 1 tab as needed; Has 16 left. Future OV: 01/24/[address] Wisdom Please review and advise. Marissa Barillas Patient phones requesting refills as follows: Requested Prescriptions Pending Prescriptions Disp Refills methocarbamol (ROBAXIN) 750 mg tablet 120 tablet 0 Sig: Take 1 tablet by mouth four times daily. Last visit: 12/23/2024 Pharmacy: [facility] # [id number] Pharmacy Current Dosage: Patient is currently taking 1 tab every 6 hrs; Has 2 left. Future OV: 01/24/25 with Artis Please review and advise. Marissa Barillas [facility] 12-14-2024 Telephone encounter Note Call to the pt PM was seen just prior to the surgery. PM placed [facility] on hold. They will see him at the 6 week adilson and take over medications. Update to the team [facility] 12-14-2024 Miscellaneous Notes Call to the pt PM was seen just prior to the surgery. PM placed [facility] on hold. They will see him at the 6 week adilson and take over medications. Update to the team Patient requesting pain rx refill. PDMP verified. Refill appropriate. Ernie Rankin APRN.CNP Neuro SPINE CARE COORDINATION QUICK NOTE ASH 12-01-24 with Ernie Rankin FLY WORKER SP C3-5 laminoplasty on 11-16-24 Pt reports some improvement with balance. Pt will need refill of Roxicodone. Pt reports taking one BID and has been out for the past day. Preferred [facility] Call received for Jus Wisdom MD regarding Bee Harris. Caller: self Patient Identified by Name and : Bee Harris 1965 Reason for Call: General - Pt needs to speak to Ernie Rankin about prescription. No other information provided. Is there any additional information the provider should know? No Last Office Visit: 11/30/2024 Next scheduled appointment: 01/10/2025 Best number to reach caller: [phone] Best time to reach caller: any Is it OK to leave a detailed voice message? Yes Rukhsana Rosenthal documented in this encounter [facility] 12-14-2024 Telephone encounter Note Patient requesting pain rx refill. PDMP verified. Refill appropriate. Ernie Rankin APRN.CUPOLA MAN [facility] 12-14-2024 Telephone encounter Note Neuro SPINE CARE COORDINATION QUICK NOTE ASH 12-01-24 with Ernie Rankin FLY WORKER SP C3-5 laminoplasty on 11-16-24 Pt reports some improvement with balance. Pt will need refill of Roxicodone. Pt reports taking one BID and has been out for the past day. Preferred pharmacy- [facility] 12-14-2024 Telephone encounter Note Call received for Jus Wisdom MD regarding Bee Harris. Caller: self Patient Identified by Name and : Bee Harris 1965 Reason for Call: General - Pt needs to speak to Ernie Rankin about prescription. No other information provided. Is there any additional information the provider should know? No Last Office Visit: 11/30/2024 Next scheduled appointment: 01/10/2025 Best number to reach caller: [phone] Best time to reach caller: any Is it OK to leave a detailed voice message? Yes Rukhsana Rosenthal [facility] 12-13-2024 History of Present illness Narrative IM PROGRESS NOTE Patient - Bee Harris Age - 59 y.o. - 1965 ASSESSMENT & PLAN 1. 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 (Primary) - patient one-month post cervical laminectomy and decompression surgery at [facility] - he does not feel like he has made much progress in the past month -has not received any active therapy - he will check with home health/ home PT, if they need extended orders I can give this in order to continue to support his progress 2. B12 deficiency -currently on cyanocobalamin supplement due to low levels noted last year -repeat B12 level to assess efficacy of treatment and adjust medication - Vitamin B12; Future - Vitamin B12 3. 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, subsequent encounter - will evaluate for control of modifying factors such as hyperlipidemia, etc. - further recommendations following results of testing - Comprehensive metabolic panel; Future - Lipid profile; Future - Lipid profile - Comprehensive metabolic panel 5. Tobacco abuse - discussed and encouraged smoking cessation -continue Wellbutrin 150 mg daily. Discontinue venlafaxine, this is duplicate therapy 6. Hyperlipidemia - lipid panel as above -currently on atorvastatin 20 mg daily Subjective 59-year-old male presents for recheck visit following cervical decompression laminectomy and fusion because of cervical myelopathy. This occurred about one-month ago at [facility]. - patient was sent home without any direct follow-up arranged -eventually was able to get home health in, but has had only 1 session with Physical therapy. - he is still having tingling and burning around the incision site on his cervical spine, and still feels that his arms and legs are not much improved - he is using a cane or walker at all times because he continues to have balance and instability issues. He has not fallen when he uses cane or walker. - he continues to have daily headache despite use of topiramate. -there are questions and confusion regarding his medication. Although he was already on Wellbutrin, was started on venlafaxine by Neurology, and at some point was given Robaxin 750 mg 4 times daily. - the Wellbutrin has been helpful in helping him to decrease his smoking. He is now down to well less than 1/2 pack daily. A review of systems was negative except for the following: General: weight gain Psychiatric: concentration difficulties, irritability, and memory difficulties ENT: vertigo and had negative VNG. Appears to have central vertigo. Musculoskeletal: gait disturbance, joint stiffness, and muscular weakness Neurological: dizziness, gait disturbance, headaches, and impaired coordination/balance. Exam BP 130/70 (BP Site: Left Arm, BP Postition: Sitting, BP CUFF SIZE: M (9-13 inches)) Pulse 81 Temp 36.9 C (98.4 F) (Oral) Resp 20 Ht 180.3 cm (5' 10.98 ) Wt 83 kg (183 lb) SpO2 98% BMI 25.53 kg/m Physical Exam Vitals reviewed. Constitutional: General: [...] ROM: Right rotation 30 , left rotation 30 , extension 15 , flexion 10 Decreased pinprick sensation surrounding posterior neck incision Cardiovascular: Rate and Rhythm: Normal rate and regular rhythm. Heart sounds: No murmur heard. No gallop. Comments: Heart tones are distant. Pulses diminished x4 Pulmonary: Effort: Pulmonary effort is normal. Breath sounds: No wheezing or rales. Abdominal: Palpations: Abdomen is soft. Musculoskeletal: Cervical [...] (TYLENOL EXTRA STRENGTH) 500 mg tablet, Take 2 tablets (1,000 mg total) by mouth., Disp: , Rfl: atorvastatin (LIPITOR) 40 mg tablet, Take 0.5 tablets (20 mg total) by mouth in the morning. Indications: excessive fat in the blood., Disp: , Rfl: buPROPion XL (WELLBUTRIN XL) 150 mg 24 hr tablet, TAKE 1 TABLET BY MOUTH EVERY DAY IN THE MORNING, Disp: 30 tablet, Rfl: 2 cyanocobalamin 1000 MCG tablet, Take 1 tablet (1,000 mcg total) by mouth in the morning., Disp: 90 tablet, Rfl: 1 latanoprost (XALATAN) 0.005 % ophthalmic solution, Administer 1 drop to both eyes nightly., Disp: , Rfl: meloxicam (MOBIC) 15 mg tablet, TAKE 1 TABLET (15 MG TOTAL) BY MOUTH IN THE MORNING, Disp: 90 tablet, Rfl: 0 naloxone (NARCAN) 4 mg/actuation spray,non-aerosol nasal spray, , Disp: , Rfl: oxyCODONE (ROXICODONE) 5 mg immediate release tablet, TAKE 1 TABLET BY MOUTH EVERY 6 HOURS NEEDED FOR PAIN FOR UP TO 7 DAYS. FOR PAIN., Disp: , Rfl: pregabalin (LYRICA) 75 mg capsule, Take 1 capsule (75 mg total) by mouth., Disp: , Rfl: Lab Results No visits [...] Testing No results found. Cris Singh DO., [facility] Office: [phone] documented in this encounter [facility] 12-01-2024 Telephone encounter Note Neuro SPINE CARE COORDINATION QUICK NOTE Requested refill of Tylenol has been addressed. [facility] Work Phone: 12-01-2024 Miscellaneous Notes Neuro SPINE CARE COORDINATION QUICK NOTE Requested refill of Tylenol has been addressed. Patient phones requesting refills as follows: Requested Prescriptions Pending Prescriptions Disp Refills acetaminophen (TYLENOL EXTRA STRENGTH) 500 mg tablet 180 tablet 0 Sig: Take 2 tablets by mouth every 8 hours. Last visit: 11/22/2024 Pharmacy: [id number] Pharmacy Current Dosage: Patient is currently taking 2 tabs every 8 hrs; Has 4 left. Please review and advise; ph: [phone] Umu Agrawal documented in this encounter [facility] 12-01-2024 History of Present illness Narrative Images from the original note were not included. SPINE SURGERY FOLLOW UP This is an in-person visit. SERVICE DATE: 11/30/2024 SURGERY DATE: 11/16/2024 SURGERY: C3-C5 laminoplasty INDICATIONS: balance issues and fine motor tasks issues. Cervical MRI revealed severe stenosis from C3-C5 Bee Harris is seen for 2 week post operative follow up. He is upset that he was not initially skilled for home health care or rehab. He now has [facility] providing him assistance. Reports generalized neck pain and stiffness. Seeing some improvement in altered sensation. Using robaxin, tylenol, and lyrica for pain relief. Continues using the narcotics as needed. Incision is healing well without any complications- he was worried as his bandage was coming off. His come health professional healthcare representative was able to replace and reinforce. Denies loss of control of bowel or bladder or new weakness. PAIN EVALUATION 12/01/2024 1302 Pain Level: 7 Pain Location: Neck head Description: Sharp Duration Amount of Time: 2 Duration Units: Weeks Frequency: Continuous Intervention/Comfort measure: Relaxation;Medication ANTIPLATELET OR ANTICOAGULATION STATUS: No Patient Entered [...] severe depression 20-27 Severe depression PHYSICAL EXAM: BP 119/73 Pulse 67 Temp 36.4 C (97.6 F) (Oral) Resp 18 Ht 177.8 cm (5' 10 ) Wt 74.8 kg (164 lb 14.5 oz) BMI 23.66 kg/m GENERAL APPEARANCE: Well nourished, well developed, and no apparent distress. NEURO PSYCH: Patient oriented to person, place, and time. Mood pleasant. Benign affect. Spine Exam Incision: Kensett removed and replaced with steri-strips. No significant erythema, edema, and no drainage. 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 1. Ar is about 2 weeks out from surgery. He is overall recovering as expected. Refills provided as requested. 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 He will continue to avoid excessive bending lifting or twisting and will especially be mindful of avoiding active chin to chest motion. Education provided regarding expected outcomes and typical healing process. Kensett were removed. There is no sign of complication or infection. Okay to get the incision wet in the shower but he should avoid soaking in water for another 2 to 4 weeks. He will follow-up with Dr. Wisdom at the 6 to 8-week postop adilson with an x-ray and then with myself via virtual visit at the 12-week postop adilson. All questions answered and he was encouraged to reach out to the office with any questions in the interim. 2. Follow up: 01/10/[address] Wisdom, 02/07/25 via VV with myself Imaging Ordered: For routine post operative monitoring The majority of the visit was spent counseling and/or coordinating care for the patient. The patient was counseled regarding cervical spondylosis with myelopathy. Total face to face time was 30 minutes. SIGNATURE: Ernie Rankin APRN.CNP PATIENT NAME: Bee Harris DATE: November 30, 2024 TIME: 11:45 AM PAGER: documented in this encounter [facility] 12-01-2024 Note HNO ID: [id number] Author: ERNIE RANKIN APRN.CNP Service: ? Author Type: Nurse Practitioner Type: Progress Notes Filed: 12/02/2024 14:16 Note Text: SPINE SURGERY FOLLOW UP This is an in-person visit. SERVICE DATE: 11/30/2024 SURGERY DATE: 11/16/2024 SURGERY: C3-C5 laminoplasty INDICATIONS: balance issues and fine motor tasks issues. Cervical MRI revealed severe stenosis from C3-C5 Bee Harris is seen for 2 week post operative follow up. He is upset that he was not initially skilled for home health care or rehab. He now has [facility] providing him assistance. Reports generalized neck pain and stiffness. Seeing some improvement in altered sensation. Using robaxin, tylenol, and lyrica for pain relief. Continues using the narcotics as needed. Incision is healing well without any complications- he was worried as his bandage was coming off. His come health professional healthcare representative was able to replace and reinforce. Denies loss of control of bowel or bladder or new weakness. PAIN EVALUATION 12/01/2024 1302 Pain Level: 7 Pain Location: Neck head Description: Sharp Duration Amount of Time: 2 Duration Units: Weeks Frequency: Continuous Intervention/Comfort measure: Relaxation;Medication ANTIPLATELET OR ANTICOAGULATION STATUS: No Patient Entered [...] severe depression 20-27 Severe depression PHYSICAL EXAM: BP 119/73 Pulse 67 Temp 36.4 ?C (97.6 ?F) (Oral) Resp 18 Ht 177.8 cm (5' 10 ) Wt 74.8 kg (164 lb 14.5 oz) BMI 23.66 kg/m? GENERAL APPEARANCE: Well nourished, well developed, and no apparent distress. NEURO PSYCH: Patient oriented to person, place, and time. Mood pleasant. Benign affect. Spine Exam Incision: Kensett removed and replaced with steri-strips. No significant erythema, edema, and no drainage. 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 1. Ar is about 2 weeks out from surgery. He is overall recovering as expected. Refills provided as requested. 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 He will continue to avoid excessive bending lifting or twisting and will especially be mindful of avoiding active chin to chest motion. Education provided regarding expected outcomes and typical healing process. Kensett were removed. There is no sign of complication or infection. Okay to get the incision wet in the shower but he should avoid soaking in water for another 2 to 4 weeks. He will follow-up with Dr. Wisdom at the 6 to 8-week postop adilson with an x-ray and then with myself via virtual visit at the 12-week postop adilson. All questions answered and he was encouraged to reach out to the office with any questions in the interim. 2. Follow up: 01/10/[address] Wisdom, 02/07/25 via VV with myself Imaging Ordered: For routine post operative monitoring The majority of the visit was spent counseling and/or coordinating care for the patient. The patient was counseled regarding cervical spondylosis with myelopathy. Total face to face time was 30 minutes. SIGNATURE: Ernie Rankin APRN.CNP PATIENT NAME: Bee Harris DATE: November 30, 2024 TIME: 11:45 AM PAGER: [facility] 12-01-2024 Instructions Ernie Rankin APRN.CNP - 12/01/2024 1:09 PM EDT 2 week post op instructions: Continue with activity restrictions. This means no excessive/repetitive bending, twisting, or lifting >10 lbs. No active chin to chest motion for neck surgery. Continue walking as tolerated. This is the best physical therapy post spine surgery! Avoid prolonged sitting or laying in bed. You may leave your incision open to air (no dressing). It is OK to get incision wet in shower. Use gentle soap. Avoid harsh scrubbing and pat dry. Avoid submerging in water (pool or tub) until 4 weeks post op. Avoid any creams or scar lotions until about 6 weeks post op. If you had a fusion surgery (rods/screws/interbody instrumentation), you should continue to avoid antiinflammatories, such as NSAIDs (advil, aleve, ibuprofen, naproxen, etc), oral steroids, and certain supplements. The muscle relaxant and Tylenol will be your best treatments for pain control at this time. You can continue these as long as they are needed. The goal is to taper off of the narcotic pain medication (Oxycodone/Roxicodone). Keep up the great work! Contact the office via [employer] or phone call with questions or concerns. [phone] documented in this encounter [facility] 11-30-2024 Telephone encounter Note Patient phones requesting refills as follows: Requested Prescriptions Pending Prescriptions Disp Refills acetaminophen (TYLENOL EXTRA STRENGTH) 500 mg tablet 180 tablet 0 Sig: Take 2 tablets by mouth every 8 hours. Last visit: 11/22/2024 Pharmacy: [id number] Pharmacy Current Dosage: Patient is currently taking 2 tabs every 8 hrs; Has 4 left. Please review and advise; ph: [phone] Umu Agrawal [facility] 11-22-2024 Telephone encounter Note MIRIAN sent HC referrals to [address] and [facility]- awaiting responses. Due to pt insurance type identifying HC agency willing to accept pt may take extended time [facility] 11-22-2024 Miscellaneous Notes MIRIAN sent HC referrals to [address] and [facility]- awaiting responses. Due to pt insurance type identifying HC agency willing to accept pt may take extended time documented in this encounter [facility] 11-22-2024 Telephone encounter Note Neuro SPINE CARE COORDINATION QUICK NOTE Procedure(s): ( 11-16-24 ) Cervical laminoplasty C3-5 Call to the pt and he was very discouraged regarding his in pt. Stay .home care was discussed pre op but pt was not eligible. Pt feels that he would benefit from home care consult . Will work with SW for Home care for nursing - PT. Pt appreciative of call back. Pt admits to neck pain - stiffness only Admits to slight improvement in pain as well as ambulation . Minimal support at home. [facility] 11-22-2024 Miscellaneous Notes Neuro SPINE CARE COORDINATION QUICK NOTE Procedure(s): ( 11-16-24 ) Cervical laminoplasty C3-5 Call to the pt and he was very discouraged regarding his in pt. Stay .home care was discussed pre op but pt was not eligible. Pt feels that he would benefit from home care consult . Will work with SW for Home care for nursing - PT. Pt appreciative of call back. Pt admits to neck pain - stiffness only Admits to slight improvement in pain as well as ambulation . Minimal support at home. Call received for Jus Wisdom MD regarding Bee Harris. Caller: self Patient Identified by Name and : Bee Harris 1965 Reason for Call: General - pt wanted to speak to Lisa Multani about his health . Surgery 11/16/24 Is there any additional information the provider should know? No Last Office Visit: 11/01/2024 Next scheduled appointment: 01/10/2025 Best number to reach caller: [phone] Best time to reach caller: any Is it OK to leave a detailed voice message? Yes Rukhsana Rosenthal documented in this encounter [facility] 11-22-2024 Telephone encounter Note Call received for Jus Wisdom MD regarding Bee Harris. Caller: self Patient Identified by Name and : Bee Harris 1965 Reason for Call: General - pt wanted to speak to Lisa Multani about his health . Surgery 11/16/24 Is there any additional information the provider should know? No Last Office Visit: 11/01/2024 Next scheduled appointment: 01/10/2025 Best number to reach caller: [phone] Best time to reach caller: any Is it OK to leave a detailed voice message? Yes Rukhsana Rosenthal [facility] 11-19-2024 Note HNO ID: [id number] Author: KARINA WOODSON MD Service: General Internal Medicine Author Type: Physician Type: Progress Notes Filed: 11/19/2024 10:49 Note Text: INPATIENT PROGRESS NOTE SERVICE DATE: 11/19/2024 SERVICE TIME: 10:48 AM PRIMARY SERVICE: spine Subjective CHIEF COMPLAINT: none INTERVAL HPI: Patient seen for medical follow-up. He has no new concerns at this time. Denies shortness of breath. No chest pain. Current Facility-Administered Medications Medication Dose Route Frequency pregabalin 100 mg cap(s) (LYRICA) 100 mg ORAL TID buPROPion XL 150 mg tab(s) (WELLBUTRIN XL) 150 mg ORAL DAILY venlafaxine ER 37.5 mg cap(s) (EFFEXOR XR) 37.5 mg ORAL DAILY heparin 5,000 Units injection 5,000 Units SUBCUTANEOUS q 12 H ondansetron 4 mg tab(s) (ZOFRAN) 4 mg ORAL q 6 H PRN Or ondansetron (PF) 4 mg injection (ZOFRAN) 4 mg INTRAVENOUS q 6 H PRN melatonin 3 mg tab(s) 3 mg ORAL DAILY (8 PM) docusate sodium 100 mg cap(s) (COLACE) 100 mg ORAL BID polyethylene glycol 3350 17 g packet 17 g ORAL DAILY PRN bisacodyl EC 10 mg tab(s) (DULCOLAX) 10 mg ORAL DAILY methocarbamol 750 mg tab(s) (ROBAXIN) 750 mg ORAL TID acetaminophen 1,000 mg tab(s) (TYLENOL) 1,000 mg ORAL q 6 H oxyCODONE IR 5-10 mg tab(s) (ROXICODONE) 5-10 mg ORAL q 4 H PRN morphine 2 mg injection 2 mg INTRAVENOUS q 2 H PRN atorvastatin 40 mg tab(s) (LIPITOR) 40 mg ORAL AT BEDTIME Objective PHYSICAL EXAM: BP 136/75 Pulse 69 Temp (Src) 98.4 (Oral) Resp 18 Ht 5' 10 (1.78m) Wt 169 lb (76.7kg) SpO2 97% BMI 24.25 kg/(m2). O2 Therapy: Room Air Physical Exam Performed GENERAL: Alert, no distress, cooperative OROPHARYNX: Mucous membranes moist LUNGS: Clear CARDIAC: Rhythm: regular rate and rhythm ABDOMEN: Soft, nontender DATA: Diagnostic tests reviewed for today's visit: Most recent labs CBC with diff: WBC 8.87 11/19/2024 RBC 3.98 11/19/2024 Hemoglobin 13.1 11/19/2024 Hematocrit 39.8 11/19/2024 MCV 100.0 11/19/2024 MCH 32.9 11/19/2024 MCHC 32.9 11/19/2024 RDW-CV 14.6 11/19/2024 Platelet Count 188 11/19/2024 MPV 10.5 11/19/2024 Neutrophils % 60.6 10/25/2024 Lymphocytes % 25.5 10/25/2024 Monocytes % 11.1 10/25/2024 Eosinophils % 1.7 10/25/2024 Basophils % 0.9 10/25/2024 Abs Neut 5.59 10/25/2024 Abs Warrick 1.02 10/25/2024 Abs Eosin 0.16 10/25/2024 Abs Baso 0.08 10/25/2024 Glucose (mg/dL) Date Value 11/19/2024 84 Potassium (mmol/L) Date Value 11/19/2024 4.4 07/02/2022 3.8 Sodium (mmol/L) Date Value 11/19/2024 140 Chloride (mmol/L) Date Value 11/19/2024 106 CO2 (mmol/L) Date Value 11/19/2024 23 Creatinine (mg/dL) Date Value 11/19/2024 0.59 BUN (mg/dL) Date Value 11/19/2024 16 Anion Gap (mmol/L) Date Value 11/19/2024 11 Calcium, Total (mg/dL) Date Value 11/19/2024 8.9 Assessment/Plan Principal Problem: Cervical spondylosis with myelopathy (POA: Yes) Assessment AND Plan: Postop day #3 Patient remains medically stable. Medical conditions include history of hypertension hyperlipidemia and current tobacco use. He is stable for discharge as per spine team plan. Patient is instructed to follow-up with his PCP after discharge. Medication and Non-Pharmacologic VTE Prophylaxis/Anticoagulants Anticoagulant AND Antiplatelet Medications (From admission, onward) Start Dose Route Frequency Last Action Ordered Stop 11/18/24 0900 heparin 5,000 Units injection (Surgical Risk Categories) 5,000 Units SUBCUTANEOUS EVERY 12 HOURS Given, 11/19 0936 11/16/24 1136 -- 11/16/24 1145 activity - mobilize patient (az,ut) VTE Prophylaxis: VTE prophylaxis appropriate SIGNATURE: Karina Woodson MD PATIENT NAME: Bee Harris DATE: November 19, 2024 TIME: 10:48 AM [facility] 11-19-2024 Note HNO ID: [id number] Author: LOPEZ SINGH MD Service: Hospital Medicine Author Type: Resident Type: Plan of Care Filed: 11/19/2024 10:25 Note Text: 59 year old male s/p C3-C5 laminoplasty 11/16 Seen by therapy and rollator recommended RX provided Patient lives independently at [facility] and will require rollator as need to take frequent breaks during ambulation to dining [place]ina[place], and have ability to sit. He is required to independently go to [facility], dining [place], get mail. Jody Amaya PA-C 10:13 AM Co-signed by orthopaedic team. Recommended by PT, is safest for [facility]. Lopez Singh MD [facility] 11-19-2024 Note HNO ID: [id number] Author: ML DAVIS, RN Service: Care Management Author Type: Registered Nurse Type: Care Mgt Progress Note Filed: 11/19/2024 10:03 Note Text: CARE MANAGEMENT DISCHARGE NOTE SERVICE DATE: November 19, 2024 SERVICE TIME: 10:01 Admission Date: 11/16/2024 LOS: 3 days Discharge Arrangement Services Arranged Prescription for rolator walker Provider Name: Dr. Artis CLARK Caregiver Assessment Home with family/self care Transportation Arrangements Family transporting home Handoff Communication: Summary of care/AVS Additional Information: Discharge Information Row Name Admission (Current) from 11/16/2024 in [facility] 5D [employer] [facility] - Will have to seed cone picker from store; Call on Thursday to confirm when able to pickup. Equipment Needed Rollator SIGNATURE: Ml Davis RN PATIENT NAME: Bee Harris DATE: November 19, 2024 TIME: 10:01 AM [facility] 11-19-2024 Note HNO ID: [id number] Author: LOPEZ SINGH MD Service: Orthopaedic Surgery Author Type: Resident Type: Progress Notes Filed: 11/19/2024 09:23 Note Text: ORTHOPAEDIC SPINE SURGERY PROGRESS NOTE PATIENT NAME: Bee Harris Attending: Jus Wisdom MD ASSESSMENT: 59 year old male s/p C3-C5 laminoplasty by Jus Wisdom MD on 11/16/2024. PLAN: - Activity: WBAT, no heavy bending lifting or twisting - Brace: soft collar for comfort - Dressings: Incisional Care for Dr. Wisdom's post-operative patients: - Continue to monitor for drainage but leave the dressing intact. No need to remove. - Notify the team if you have any concerns about drainage noted through the dressing. - Regular diet, bowel regimen - Drain: removed 11/18 - Antibiotics: ancef for 24 hours post op - Upright x-rays POD1 (completed) - Martinez: remove POD1 - Pain - PO and IV breakthrough - Encourage incentive spirometry - mIVF, HLIV when tolerating adequate PO - DVT ppx - SCDs and SQH starting POD2 - Hgb 13.1, no indication for transfusion at this time - PT/OT/CM, appreciate recs for discharge Dispo: home today Plan of care discussed with: Provider, RN, Patient. SUBJECTIVE: No acute events overnight. Pain controlled, denies n/v/cp/sob. Denies new numbness, weakness or paresthesias. Denies bowel or bladder issues. Plan to go home today. VITALS: 11/17/24 2351 11/18/24 0734 11/18/24 1602 11/19/24 0014 BP: 123/69 134/68 114/73 136/75 Pulse: 66 64 62 69 Resp: 16 Temp: 36.5 ?C (97.7 ?F) 36.8 ?C (98.2 ?F) 36.9 ?C (98.4 ?F) TempSrc: Oral Oral Oral Oral SpO2: 98% 99% 96% 97% Weight: Height: No intake or output data in the 24 hours ending 11/19/24 0919 Physical Exam: Gen: awake, alert, converses appropriately, NAD Resp: Unlabored Cardio: regular rate to peripheral palpation Surgical Site: - dressing c/d/I, no surrounding erythema or drainage Upper Extremities UE Shoulder Abd Elbow Flex Elbow Ext Wrist Ext Wrist Flex Mixed Livestock Farmer HI R 5 5 5 5 5 5 5 L 5 5 5 5 5 5 5 Sensation to light touch intact to bilateral upper extremities +2 radial pulse Lower Extremities LE Hip Flex Knee Flex Knee Ext Plantarflex Dorsiflex EHL R 5 5 5 5 5 5 L 5 5 5 5 5 5 Sensation to light touch intact to bilateral lower extremities +2 dorsalis pedis pulse Labs: CBC: Recent Labs 11/19/2444811/18/245 11/17/24 0425 WBC 8.87 8.73 9.80 HB 13.1 12.5* 13.3 HCT 39.8 38.4* 40.6 PLT 188 163 177 MCV 100.0 101.3* 100.7* RDWCV 14.6 15.0 14.9 COAG: No results for input(s): APTT , INR in the last 168 hours. BMP: Recent Labs 11/19/2444811/18/24 0445 11/17/24 0425 GLUC 84 84 81 NA 140 140 142 K 4.4 4.1 4.4 CHLOR 106 114* 112* CO2 23 22 19* ANION 11 4* 11 BUN 16 17 20 CREAT 0.59* 0.67* 0.69* CHEM: Recent Labs 11/19/24 0449 11/18/24 0445 11/17/24 0425 CA 8.9 8.8 8.7 URINALYSIS:No results for input(s): PH , SPGR , UGLUC , UBILI , UKET , UHB , UPROT , UROBIL , UWBC , SSA in the last 168 hours. Invalid input(s): NITR No intake or output data in the 24 hours ending 11/19/24 0919 Lines, Drains, and Airways Line Duration Peripheral 11/16/24 0753 Right Wrist 18 Gauge 3 days Peripheral 11/16/24 Left Wrist 20 Gauge 3 days Lopez Singh MD PGY-3 Orthopaedic Surgery [phone] For Main [place] floor related issues [place], [place] [phone] If unable to reach the PA team between 6 am and 5 pm, please page me at [phone] At all other times, or if urgent, please page the orthopaedic on-call resident at: [phone] for [facility] patients [id number] for [facility] patients [id number] for [facility] patients [id number] for [facility] patients [id number] for [facility] patients [facility] 11-18-2024 Note HNO ID: [id number] Author: KRANTHI DELGADILLO MD Service: Orthopaedic Surgery Author Type: Resident Type: Progress Notes Filed: 11/18/2024 11:40 Note Text: ORTHOPAEDIC SPINE SURGERY PROGRESS NOTE PATIENT NAME: Bee Harris Attending: Jus Wisdom MD ASSESSMENT: 59 year old male s/p C3-C5 laminoplasty by Jus Wisdom MD on 11/16/2024. PLAN: - Activity: WBAT, no heavy bending lifting or twisting - Brace: soft collar for comfort - Dressings: Incisional Care for Dr. Wisdom's post-operative patients: - Please leave dressing intact and monitor for any excessive drainage through or around the dressing. - The resident will remove the dressing when the drain is being removed. It will then be replaced. - Continue to monitor for drainage but leave the dressing intact. No need to remove. - Notify the team if you have any concerns about drainage noted through the dressing. - Regular diet, bowel regimen - Drain x1, continue to monitor output q shift - Drain output: 15 cc yesterday, clotted overnight - will pull today - Antibiotics: ancef for 24 hours post op - Upright x-rays POD1 - Martinez: remove POD1 - Pain - PO and IV breakthrough - Encourage incentive spirometry - mIVF, HLIV when tolerating adequate PO - DVT ppx - SCDs and SQH starting POD2 - Hgb 13, no indication for transfusion at this time - PT/OT/CM, appreciate recs for discharge Dispo: pending PT Plan of care discussed with: Provider, RN, Patient. SUBJECTIVE: No acute events overnight. Pain controlled, denies n/v/cp/sob. Denies new numbness, weakness or paresthesias. Denies bowel or bladder issues. VITALS: 11/17/24 1230 11/17/24 2214 11/17/24 2351 11/18/24 0734 BP: 123/69 134/68 Pulse: 66 64 Resp: 20 16 Temp: 36.5 ?C (97.7 ?F) 36.8 ?C (98.2 ?F) TempSrc: Oral Oral SpO2: 98% 99% Weight: Height: Intake/Output Summary (Last 24 hours) at 11/18/2024 1139 Last data filed at 11/18/2024 0836 Gross per 24 hour Intake -- Output 0 ml Net 0 ml Physical Exam: Gen: awake, alert, converses appropriately, NAD Resp: Unlabored Cardio: regular rate to peripheral palpation Surgical Site: - dressing c/d/I, no surrounding erythema or drainage - HV drain in place with minimal output; clotted in drain line Upper Extremities UE Shoulder Abd Elbow Flex Elbow Ext Wrist Ext Wrist Flex Mixed Livestock Farmer HI R 5 5 5 5 5 5 5 L 5 5 5 5 5 5 5 Sensation to light touch intact to bilateral upper extremities +2 radial pulse Lower Extremities LE Hip Flex Knee Flex Knee Ext Plantarflex Dorsiflex EHL R 5 5 5 5 5 5 L 5 5 5 5 5 5 Sensation to light touch intact to bilateral lower extremities +2 dorsalis pedis pulse Labs: CBC: Recent Labs 11/18/24 0445 11/17/24 0425 WBC 8.73 9.80 HB 12.5* 13.3 HCT 38.4* 40.6 PLT 163 177 MCV 101.3* 100.7* RDWCV 15.0 14.9 COAG: No results for input(s): APTT , INR in the last 168 hours. BMP: Recent Labs 11/18/245 11/17/24 0425 GLUC 84 81 NA 140 142 K 4.1 4.4 CHLOR 114* 112* CO2 22 19* ANION 4* 11 BUN 17 20 CREAT 0.67* 0.69* CHEM: Recent Labs 11/18/245 11/17/24 0425 CA 8.8 8.7 URINALYSIS:No results for input(s): PH , SPGR , UGLUC , UBILI , UKET , UHB , UPROT , UROBIL , UWBC , SSA in the last 168 hours. Invalid input(s): NITR Intake/Output Summary (Last 24 hours) at 11/18/2024 1139 Last data filed at 11/18/2024 0836 Gross per 24 hour Intake -- Output 0 ml Net 0 ml Lines, Drains, and Airways Line Duration Peripheral 11/16/24 0753 Right Wrist 18 Gauge 2 days Peripheral 11/16/24 Left Wrist 20 Gauge 2 days Drain Duration Drain/Tube 11/16/24 0945 Homero Steele Right Posterior Neck 2 days Kranthi Delgadillo MD PGY-2 [address]opa[address] [facility] 11-17-2024 Note HNO ID: [id number] Author: KARINA WOODSON MD Service: General Internal Medicine Author Type: Physician Type: Progress Notes Filed: 11/17/2024 13:03 Note Text: INPATIENT PROGRESS NOTE SERVICE DATE: 11/17/2024 SERVICE TIME: 1:01 PM PRIMARY SERVICE: spine Subjective CHIEF COMPLAINT: Postop pain INTERVAL HPI: Patient seen for medical follow-up. Reports mild postop pain. No shortness of breath. No chest pain. Current Facility-Administered Medications Medication Dose Route Frequency pregabalin 100 mg cap(s) (LYRICA) 100 mg ORAL TID buPROPion XL 150 mg tab(s) (WELLBUTRIN XL) 150 mg ORAL DAILY venlafaxine ER 37.5 mg cap(s) (EFFEXOR XR) 37.5 mg ORAL DAILY [START ON 11/18/2024] heparin 5,000 Units injection 5,000 Units SUBCUTANEOUS q 12 H keTORolac 30 mg injection (Toradol) 30 mg INTRAVENOUS q 6 H ondansetron 4 mg tab(s) (ZOFRAN) 4 mg ORAL q 6 H PRN Or ondansetron (PF) 4 mg injection (ZOFRAN) 4 mg INTRAVENOUS q 6 H PRN melatonin 3 mg tab(s) 3 mg ORAL DAILY (8 PM) docusate sodium 100 mg cap(s) (COLACE) 100 mg ORAL BID polyethylene glycol 3350 17 g packet 17 g ORAL DAILY PRN [START ON 11/18/2024] bisacodyl EC 10 mg tab(s) (DULCOLAX) 10 mg ORAL DAILY methocarbamol 750 mg tab(s) (ROBAXIN) 750 mg ORAL TID acetaminophen 1,000 mg tab(s) (TYLENOL) 1,000 mg ORAL q 6 H oxyCODONE IR 5-10 mg tab(s) (ROXICODONE) 5-10 mg ORAL q 4 H PRN morphine 2 mg injection 2 mg INTRAVENOUS q 2 H PRN atorvastatin 40 mg tab(s) (LIPITOR) 40 mg ORAL AT BEDTIME Objective PHYSICAL EXAM: BP 122/76 Pulse 76 Temp (Src) 98.4 (Oral) Resp 20 Ht 5' 10 (1.78m) Wt 169 lb (76.7kg) SpO2 93% BMI 24.25 kg/(m2). O2 Therapy: Room Air Physical Exam Performed GENERAL: Alert, no distress, cooperative OROPHARYNX: Mucous membranes moist LUNGS: Clear CARDIAC: Rhythm: regular rate and rhythm ABDOMEN: Soft, nontender DATA: Diagnostic tests reviewed for today's visit: Most recent labs CBC with diff: WBC 9.80 11/17/2024 RBC 4.03 11/17/2024 Hemoglobin 13.3 11/17/2024 Hematocrit 40.6 11/17/2024 MCV 100.7 11/17/2024 MCH 33.0 11/17/2024 MCHC 32.8 11/17/2024 RDW-CV 14.9 11/17/2024 Platelet Count 177 11/17/2024 MPV 10.6 11/17/2024 Neutrophils % 60.6 10/25/2024 Lymphocytes % 25.5 10/25/2024 Monocytes % 11.1 10/25/2024 Eosinophils % 1.7 10/25/2024 Basophils % 0.9 10/25/2024 Abs Neut 5.59 10/25/2024 Abs Warrick 1.02 10/25/2024 Abs Eosin 0.16 10/25/2024 Abs Baso 0.08 10/25/2024 Glucose (mg/dL) Date Value 11/17/2024 81 Potassium (mmol/L) Date Value 11/17/2024 4.4 07/02/2022 3.8 Sodium (mmol/L) Date Value 11/17/2024 142 Chloride (mmol/L) Date Value 11/17/2024 112 CO2 (mmol/L) Date Value 11/17/2024 19 Creatinine (mg/dL) Date Value 11/17/2024 0.69 BUN (mg/dL) Date Value 11/17/2024 20 Anion Gap (mmol/L) Date Value 11/17/2024 11 Calcium, Total (mg/dL) Date Value 11/17/2024 8.7 Assessment/Plan Principal Problem: Cervical spondylosis with myelopathy (POA: Yes) Assessment AND Plan: Postop day 1. Patient remains medically stable. History of hypertension, hyperlipidemia and tobacco use. Blood pressure stable. Encourage incentive spirometer use. Encourage activity as tolerated as per primary surgical team. Plan to continue current supportive medical care. Medication and Non-Pharmacologic VTE Prophylaxis/Anticoagulants Anticoagulant AND Antiplatelet Medications (From admission, onward) Start Dose Route Frequency Last Action Ordered Stop 11/18/24 0900 heparin 5,000 Units injection (Surgical Risk Categories) 5,000 Units SUBCUTANEOUS EVERY 12 HOURS Ordered 11/16/24 1136 -- 11/16/24 1145 activity - mobilize patient (az,ut) VTE Prophylaxis: VTE prophylaxis appropriate SIGNATURE: Karina Woodson MD PATIENT NAME: Bee Harris DATE: November 17, 2024 TIME: 1:00 PM [facility] 11-17-2024 Note HNO ID: [id number] Author: KRANTHI DELGADILLO MD Service: Orthopaedic Surgery Author Type: Resident Type: Progress Notes Filed: 11/17/2024 07:23 Note Text: ORTHOPAEDIC SPINE SURGERY PROGRESS NOTE PATIENT NAME: Bee Harris Attending: Jus Wisdom MD ASSESSMENT: 59 year old male s/p C3-C5 laminoplasty by Jus Wisdom MD on 11/16/2024. PLAN: - Activity: WBAT, no heavy bending lifting or twisting - Brace: none - Dressings: Incisional Care for Dr. Wisdom's post-operative patients: - Please leave dressing intact and monitor for any excessive drainage through or around the dressing. - The resident will remove the dressing when the drain is being removed. It will then be replaced. - Continue to monitor for drainage but leave the dressing intact. No need to remove. - Notify the team if you have any concerns about drainage noted through the dressing. - Regular diet, bowel regimen - Drain x1, continue to monitor output q shift - Drain output: 15 cc yesterday, clotted overnight - Antibiotics: ancef for 24 hours post op - Upright x-rays POD1 - Martinez: remove POD1 - Pain - PO and IV breakthrough - Encourage incentive spirometry - mIVF, HLIV when tolerating adequate PO - DVT ppx - SCDs and SQH starting POD2 - Hgb 13, no indication for transfusion at this time - PT/OT/CM, appreciate recs for discharge Dispo: pending PT Plan of care discussed with: Provider, RN, Patient. SUBJECTIVE: No acute events overnight. Pain controlled, denies n/v/cp/sob. RN reports some erythema over chin with numbness but no complaint from patient this AM. Denies new numbness, weakness or paresthesias. Denies bowel or bladder issues. VITALS: 11/16/24200911/16/24 2351 11/17/24 0336 11/17/24 0337 BP: 121/75 115/59 99/65 105/63 Pulse: 65 60 63 Resp: Temp: 36.5 ?C (97.7 ?F) 36.5 ?C (97.7 ?F) 36.6 ?C (97.9 ?F) TempSrc: Oral Oral Oral SpO2: 100% 99% 99% Weight: Height: Intake/Output Summary (Last 24 hours) at 11/17/2024 0720 Last data filed at 11/17/2024 0519 Gross per 24 hour Intake 1850 ml Output 500 ml Net 1350 ml Physical Exam: Gen: awake, alert, converses appropriately, NAD Resp: Unlabored Cardio: regular rate to peripheral palpation Surgical Site: - dressing c/d/I, no surrounding erythema or drainage - HV drain in place with minimal output; clotted in drain line Upper Extremities UE Shoulder Abd Elbow Flex Elbow Ext Wrist Ext Wrist Flex Mixed Livestock Farmer HI R 5 5 5 5 5 5 5 L 5 5 5 5 5 5 5 Sensation to light touch intact to bilateral upper extremities +2 radial pulse Lower Extremities LE Hip Flex Knee Flex Knee Ext Plantarflex Dorsiflex EHL R 5 5 5 5 5 5 L 5 5 5 5 5 5 Sensation to light touch intact to bilateral lower extremities +2 dorsalis pedis pulse Labs: CBC: Recent Labs 11/17/24 0425 WBC 9.80 HB 13.3 HCT 40.6 PLT 177 MCV 100.7* RDWCV 14.9 COAG: No results for input(s): APTT , INR in the last 168 hours. BMP: No results for input(s): GLUC , NA , K , CHLOR , CO2 , ANION , BUN , CREAT in the last 168 hours. CHEM: No results for input(s): ALB , TPROT , CA , MG in the last 168 hours. URINALYSIS:No results for input(s): PH , SPGR , UGLUC , UBILI , UKET , UHB , UPROT , UROBIL , UWBC , SSA in the last 168 hours. Invalid input(s): NITR Intake/Output Summary (Last 24 hours) at 11/17/2024 0720 Last data filed at 11/17/2024 0519 Gross per 24 hour Intake 1850 ml Output 500 ml Net 1350 ml Lines, Drains, and Airways Line Duration Peripheral 11/16/24 Left Wrist 20 Gauge 1 day Peripheral 11/16/24 0753 Right Wrist 18 Gauge <1 day Drain Duration Drain/Tube 11/16/24 0945 Homero Steele Right Posterior Neck <1 day Kranthi Delgaidllo MD PGY-2 [address] [facility] 11-16-2024 Note HNO ID: [id number] Author: ELLIE RASHID MD Service: Neurosurgery Author Type: Fellow Type: Progress Notes Filed: 11/16/2024 10:33 Note Text: SPINE SURGERY POST OP CHECK PATIENT NAME: Bee Harris Date of Surgery: 11/16/2024 * Day of Surgery * Procedure: C3-C5 laminoplasty w/ Dr. Wisdom Assessment: 59 year old yo male s/p the above procedure, doing well in the post op area with the exam as noted below. Spine Exam Sensation: at baseline Motor: UE Deltoid Triceps Biceps Mixed Livestock Farmer Hand Intrinsics Right 5/5 5/5 5/5 5/5 5/5 Left 5/5 5/5 5/5 5/5 5/5 LE Hip flexion Knee ext Dorsiflexion EHL Plantarflexion Right 5/5 5/5 5/5 5/5 5/5 Left 5/5 5/5 5/5 5/5 5/5 Dressing/Wound: intact Drain(s): HVAC x1 to suction Ellie Rashid MD PGY-6 Pager: [phone] [facility] 11-16-2024 Note HNO ID: [id number] Author: JAMAR SWAIN AA Service: Anesthesiology Author Type: Bilingual [employer] Type: Anesthesia Procedure Notes Filed: 11/16/2024 08:19 Note Text: ANESTHESIOLOGY PROCEDURE NOTE Airway General Information Procedure Start Time/Medication Administration: 11/16/2024 7:51 AM Procedure End Time: 11/16/2024 7:52 AM Patient location during procedure: OR Timeout Performed Pre-procedure: timeout performed Consent Obtained: Yes Patient identity confirmed: arm band and patient Staffing CAA: Jamar Swain AA Performed by: anesthesiologist and CAA [...] 1 Failed airway: no Airway not difficult SIGNATURE: PALMA Abraham PATIENT NAME: Bee Harris DATE: November 16, 2024 TIME: 8:18 AM CSN: [id number] [facility] 11-14-2024 Note HNO ID: [id number] Author: DEVAUGHN VAZQUEZ RN Service: ? Author Type: Registered Nurse Type: Progress Notes Filed: 11/14/2024 09:33 Note Text: Neuro SPINE CARE COORDINATION PRE-OP PHONE VISIT Met with patient for pre op education. Given both written and verbal instructions re : Skin prep, wound care, pain management and post op restrictions. Provided to patient: [facility] Surgery Guide, skin prep supplies, Spine Surgery Pre/post op education packet. Yes Reviewed with patient to report to desk @ Reviewed with the patient that will call to review time Patient aware eat nothing after midnight prior to surgery, clear liquids only until 2 hours before report time. Yes. Patient aware surgery will be INPATIENT. Discussed care post discharge : Home Health Care ( PT-OT-nurse). Does patient have transportation to and from surgery ? Yes. Falls Education provided ? Yes Nasal swab obtained ? Yes. Patient instructed in mupirocin treatment : negative . Questions answered and patient voice(s) understanding via teach back. Physical Therapy : YES Additional Comments : Post -op Support home alone- pt requests Home care Devaughn Vazquez RN [facility] 11-14-2024 History of Present illness Narrative Neuro SPINE CARE COORDINATION PRE-OP PHONE VISIT Met with patient for pre op education. Given both written and verbal instructions re : Skin prep, wound care, pain management and post op restrictions. Provided to patient: [facility] Surgery Guide, skin prep supplies, Spine Surgery Pre/post op education packet. Yes Reviewed with patient to report to desk @ KAREN Reviewed with the patient that KAREN will call to review time Patient aware eat nothing after midnight prior to surgery, clear liquids only until 2 hours before report time. Yes. Patient aware surgery will be INPATIENT. Discussed care post discharge : Home Health Care ( PT-OT-nurse). Does patient have transportation to and from surgery ? Yes. Falls Education provided ? Yes Nasal swab obtained ? Yes. Patient instructed in mupirocin treatment : negative . Questions answered and patient voice(s) understanding via teach back. Physical Therapy : YES Additional Comments : Post -op Support home alone- pt requests Home care Devaughn Vazquez RN documented in this encounter [facility] 11-01-2024 Telephone encounter Note Neuro SPINE CARE COORDINATION QUICK NOTE Call to the pt and he is not interested in sooner OR date at this time. Pt currently scheduled for 11-16-[address] Wisdom [facility] Work Phone: 11-01-2024 Miscellaneous Notes Neuro SPINE CARE COORDINATION QUICK NOTE Call to the pt and he is not interested in sooner OR date at this time. Pt currently scheduled for 11-16-[address] Wisdom documented in this encounter [facility] 2024 Note HNO ID: [id number] Author: MELO HERNANDEZ RN Service: ? Author Type: Registered Nurse Type: Progress Notes Filed: 2024 19:59 Note Text: Patient referred to Blood Management for pre-surgical optimization. Hgb 14.1 which exceeds Blood Management guidelines for intervention. [facility] 2024 History of Present illness Narrative Patient referred to Blood Management for pre-surgical optimization. Hgb 14.1 which exceeds Blood Management guidelines for intervention. documented in this encounter [facility] 10-25-2024 Instructions Justin Boo APRN.CUPOLA MAN - 10/25/2024 2:31 PM EDT Images from the original note were not included. [facility] Pre-Anesthesia Consultation [facility] PATIENT PREOPERATIVE INSTRUCTIONS Jus Wisdom MD has scheduled you for your procedure at this surgery center: [facility]: [phone] --[address] [place] [address]. On your scheduled day of surgery, please report to Patient Registration, ground floor Please read below carefully for your personalized instructions. Dietary Restrictions: - No solid food after midnight. - You may have 12 ounces of clear liquids (water, clear juices such as apple juice or gatorade, carbonated beverages, clear tea, black coffee, jello) until 2 hours before scheduled arrival at facility. - Do not drink any alcohol after midnight the night before your surgery. Medications: Unless instructed differently below, stay on all of your medications until your surgery. If you start any new medications after today's visit, please contact your surgeon. Pre-Surgery Med Instructions Medication Instructions atorvastatin (LIPITOR) 40 mg tablet Take the day of surgery with a small sip of water cyanocobalamin (VITAMIN B-12) 1,000 mcg tab Do not take the day of surgery HYDROcodone-Acetaminophen (NORCO) 7.5-325 mg per tablet Ok to use as needed meloxicam (MOBIC) 15 mg tablet Stop 7 days before surgery pregabalin (LYRICA) 75 mg capsule Take the day of surgery with a small sip of water venlafaxine ER (EFFEXOR XR) 37.5 mg 24 hr capsule Take the day of surgery with a small sip of water buPROPion XL (WELLBUTRIN XL) 150 mg 24 hr tablet Take the day of surgery with a small sip of water topiramate (TOPAMAX) 50 mg tablet Take the day of surgery with a small sip of water If you start any new medications after today's visit, please contact the surgeon's office. If you are currently using a [id number] injectable or oral medication for diabetes or weight loss such as Dulaglutide (Trulicity), Exenatide (Byetta, Bydureon), Liraglutide (Victoza, Saxenda), Semaglutide (Ozempic, Wegovy, Rybelsus), or Tirzepatide (Mounjaro), the medicine should be stopped at least 7 days before surgery. These medicines can cause food to remain in your stomach for a very long time and increase the risks from surgery and anesthesia. Not stopping the medication for a long enough time may result in your surgery being rescheduled. Blood Thinning Medications: - Stop NSAIDS (Ibuprofen, Advil, Aleve, Motrin, Celebrex, Mobic, etc.) 7 days before surgery, as directed by your surgeon. - Stop Aspirin 7 days before surgery, as directed by your surgeon. - Stop ALL herbal and dietary supplements 7 days before surgery. - You may take Tylenol (Acetaminophen) or any of your pain medications that do not contain aspirin or NSAIDS as needed. Important Reminders: - Candy, mints, and tobacco products are NOT permitted the morning of surgery. - Hearing aids, dentures and glasses may be worn the morning of surgery. - NO jewelry, body piercings, makeup, hairpins or contacts are to be worn the day of surgery. If you develop symptoms such as a fever, cold, or flu, or have other changes to your health within TWO DAYS of scheduled surgery or the morning of surgery, please contact the surgery center above. Personal Belongings: -Please have photo ID and insurance cards. -If you do not have a copy of advance directives on file with us, please bring a copy with you on the day of surgery. - Leave ALL valuables and money at home or with family members. - Please bring high-quality footwear, such as sneakers, to the hospital for ambulating post-surgery. For Outpatient Procedures: - YOU MUST HAVE A RESPONSIBLE EARTH BORING MACHINE OPERATOR TAKE YOU HOME. A SENIOR SALES REPRESENTATIVE OR BILINGUAL COUNTER SALES RETAIL CANNOT BE MADE A RESPONSIBLE EARTH BORING MACHINE OPERATOR. - We recommend that a responsible person stays with you overnight to take care of you. - You cannot stay in a hotel alone after outpatient surgery. You will not be permitted to have your surgery, if you do not have someone to take care of you. Arrival Time for Surgery: - The Surgery Center or hospital where you are having surgery will call the afternoon before surgery (or Thursday for Thursday surgery) with a scheduled arrival time. - If you have not heard by 4 pm, please contact the surgery center above. Please be aware that emergency situations arise, which may delay or change your surgical time. If this happens, we will notify you as soon as possible and regret any inconvenience. If you already have an Advance Directive, please fax a copy to [phone] or email to for it to be added to your chart. If you do not have an Advance Directive, you can find the appropriate form and more information at [email or web address]. We recommend that you complete the Advance Directive form found on the website and bring it with you the day of your surgery. It can be witnessed and scanned into your chart that day. Justin Boo APRN.CUPOLA MAN documented in this encounter [facility] 10-25-2024 Note HNO ID: [id number] Author: JUS WISDOM MD Service: ? Author Type: Physician Type: Progress Notes Filed: 10/25/2024 13:47 Note Text: SPINE SURGERY ESTABLISHED This is an in-person visit. DATE OF SERVICE: 10/25/2024 DATE OF LAST VISIT: 10/11/2024 SUBJECTIVE: HPI:Bee Harris is a 58 year old male presenting alone. Patient presents for pre op appointment regarding upcoming surgery. He has many questions. Denies any changes of his symptoms. . MEDICATIONS: atorvastatin (LIPITOR) 40 mg tablet Take 40 mg by mouth. cyanocobalamin (VITAMIN B-12) 1,000 mcg tab take 1 tablet (1,000 mcg total) by mouth in the morning HYDROcodone-Acetaminophen (NORCO) 7.5-325 mg per tablet Take 1 tablet by mouth. latanoprost (XALATAN) 0.005 % ophthalmic solution INSTILL ONE DROP IN EACH EYE BEFORE BED meloxicam (MOBIC) 15 mg tablet Take 15 mg by mouth. pregabalin (LYRICA) 75 mg capsule Take 75 mg by mouth. (Patient taking differently: Take 100 mg by mouth.) venlafaxine ER (EFFEXOR XR) 37.5 mg 24 hr capsule Take 37.5 mg by mouth. topiramate (TOPAMAX) 50 mg tablet Take 50 mg by mouth. buPROPion XL (WELLBUTRIN XL) 150 mg 24 hr tablet Take 150 mg by mouth. (Patient not taking: Reported on 10/25/2024) naloxone 4 mg/actuation nasal spray (NARCAN) PLEASE SEE ATTACHED FOR DETAILED DIRECTIONS (Patient not taking: Reported on 10/25/2024) Patient Entered Questionnaires PROMIS Score Percentiles Percentiles [...] severe depression 20-27 Severe depression OBJECTIVE: PHYSICAL EXAM: BP 162/84 Pulse 68 GENERAL APPEARANCE: Well nourished, well developed, and no apparent distress. Spine Exam Drain(s): Incision: Neck No obvious deformity, normal ROM Back No stepoffs/deformities. 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 5 5 5 5 5 [...] walk unable Heel Walk unable Tandem unable DATA REVIEW:Diagnostic tests reviewed for today's visit, films/specimens were personally reviewed by me: [facility] records independently reviewed ASSESSMENT/PLAN (M48.02) Cervical spinal stenosis (primary encounter diagnosis) (M47.12) Cervical spondylosis with myelopathy Bee Harris is clinically indicated and wishes to pursue Cervical Laminoplasty at C3-C5 The risks, benefits, and anticipated outcomes of the procedure/treatment/test, the alternatives to the procedure/treatment/test and their risks and benefits, and the roles and tasks of the personnel to be involved were discussed with the patient or the patient?s personal accounts receivable representative. Discussed goals of surgery Halt progression [...] makes sense to the patient from a sym (more content not included)... [facility] 10-25-2024 History of Present illness Narrative SPINE SURGERY ESTABLISHED This is an in-person visit. DATE OF SERVICE: 10/25/2024 DATE OF LAST VISIT: 10/11/2024 SUBJECTIVE: HPI:Bee Harris is a 58 year old male presenting alone. Patient presents for pre op appointment regarding upcoming surgery. He has many questions. Denies any changes of his symptoms. . MEDICATIONS: atorvastatin (LIPITOR) 40 mg tablet Take 40 mg by mouth. cyanocobalamin (VITAMIN B-12) 1,000 mcg tab take 1 tablet (1,000 mcg total) by mouth in the morning HYDROcodone-Acetaminophen (NORCO) 7.5-325 mg per tablet Take 1 tablet by mouth. latanoprost (XALATAN) 0.005 % ophthalmic solution INSTILL ONE DROP IN EACH EYE BEFORE BED meloxicam (MOBIC) 15 mg tablet Take 15 mg by mouth. pregabalin (LYRICA) 75 mg capsule Take 75 mg by mouth. (Patient taking differently: Take 100 mg by mouth.) venlafaxine ER (EFFEXOR XR) 37.5 mg 24 hr capsule Take 37.5 mg by mouth. topiramate (TOPAMAX) 50 mg tablet Take 50 mg by mouth. buPROPion XL (WELLBUTRIN XL) 150 mg 24 hr tablet Take 150 mg by mouth. (Patient not taking: Reported on 10/25/2024) naloxone 4 mg/actuation nasal spray (NARCAN) PLEASE SEE ATTACHED FOR DETAILED DIRECTIONS (Patient not taking: Reported on 10/25/2024) Patient Entered Questionnaires PROMIS Score Percentiles Percentiles [...] severe depression 20-27 Severe depression OBJECTIVE: PHYSICAL EXAM: BP 162/84 Pulse 68 GENERAL APPEARANCE: Well nourished, well developed, and no apparent distress.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 review with team- as per FLY WORKER no contraindications to proceeding with SI joint injection. Call to PM and update provided to Cassi ORDONEZ) Call received for Jus Wisdom MD regarding Bee Harris. Caller: Cassi with [facility] Patient Identified by Name and : Bee Harris 1965 Reason for Call: Cassi would like to know if patient can receive a sacroiliac injection Cassi states patient informed her that he has a upcoming surgery and just need confirmation if patient can proceed with procedure Is there any additional information the provider should know? No Last Office Visit: 10/11/2024 Next scheduled appointment: 10/25/2024 Best number to reach caller: Cassi [phone] Best time to reach caller: 8 am till 4 pm Is it OK to leave a detailed voice message? Yes Erendira Hubbardt documented in this encounter [facility] 10-12-2024 Telephone encounter Note Call received for Jus Wisdom MD regarding Bee Harris. Caller: Cassi with [facility] Patient Identified by Name and : Bee Harris 1965 Reason for Call: Cassi would like to know if patient can receive a sacroiliac injection Cassi states patient informed her that he has a upcoming surgery and just need confirmation if patient can proceed with procedure Is there any additional information the provider should know? No Last Office Visit: 10/11/2024 Next scheduled appointment: 10/25/2024 Best number to reach caller: Cassi [phone] Best time to reach caller: 8 am till 4 pm Is it OK to leave a detailed voice message? Yes Erendira Mcknight Chiropractor Assistant [facility] 10-11-2024 Telephone encounter Note Neuro SPINE CARE [...] of non-home discharge disposition : Low [0] Devaughn Vazquez RN [facility] Work Phone: 10-11-2024 Miscellaneous Notes Neuro SPINE [...] of non-home discharge disposition : Low [0] Devaughn Vazquez RN documented in this encounter [facility] 10-11-2024 Note HNO ID: [id number] Author: JUS WISDOM MD Service: ? Author Type: Physician Type: Progress Notes Filed: 10/11/2024 11:08 Note Text: SPINE SURGERY NEW PATIENT PCP: Cris Singh [...] BICEPS TRICEPS DELTS Wrist Ext Wrist Flex Mixed Livestock Farmer HI R 5 5 5 5 5 [...] were discussed with the patient or the patient?s personal accounts receivable representative. Discussed goals of surgery Halt progression [...] symptom severity standpoint A and B were c (more content not included)... [facility] 10-11-2024 History of Present illness Narrative Images from the original note [...] BICEPS TRICEPS DELTS Wrist Ext Wrist Flex Mixed Livestock Farmer HI R 5 5 5 5 5 [...] the patient or the patient s personal accounts receivable representative. Discussed goals of surgery Halt progression [...] was 30 minutes. documented in this encounter [facility] 10-11-2024 History of Present illness Narrative Radiology Service Progress Note PATIENT [...] PATIENT PRESENTS WITH AN IMPLANTABLE OR ATTACHED VEGETABLE HANDLER: No RADIOLOGY DEPARTMENT: CT; Exam(s) Completed: Spine PERIPHERAL IV DATA: Not applicable SIGNED BY: RT Maribel(Cirilo) October 11, 2024 9:21 AM documented in this encounter [facility] 10-11-2024 Note O ID: [id number] Author: LORI PLAZA RT(R) Service: ? Author Type: Technologist Type: Progress Notes Filed: 10/11/2024 09:21 Note Text: Radiology Service Progress Note PATIENT [...] PATIENT PRESENTS WITH AN IMPLANTABLE OR ATTACHED VEGETABLE HANDLER: No RADIOLOGY DEPARTMENT: CT; Exam(s) Completed: Spine PERIPHERAL IV DATA: Not applicable SIGNED BY: RT Maribel(Cirilo) October 11, 2024 9:21 AM [facility] 09-26-2024 History of Present illness Narrative Images from the original note [...] Ernie Rankin APRN, CNP (spine surgery) at [facility] on 08/25/2024. Per documentation, she recommended obtaining a CT of the cervical spine for surgical consideration. This is scheduled for 10/11/2024 after which the patient has an appointment with Dr. Jus Wisdom ([facility] spine surgery). Ernie Rankin APRN, CNP did [...] are. He continues to take Lyrica and Shinglehouse but states, none of that helps. The [...] hydrocodone-acetaminophen 7.5-325 MG tablet; Commonly known as: [place] latanoprost 0.005 % ophthalmic solution; Commonly known [...] Meniere's disease Polyneuropathy Smoker Traumatic brain injury (CMS/[facility]) Past Surgical History: Procedure Laterality Date CT [...] wrist extensors , wrist flexor , and wire steward strength 4+/5. May be a component of giveway weakness. Reduced range of motion in the right deltoid - patient states this is chronic. LUE strength deltoid , biceps , triceps , wrist extensors , wrist flexor , and wire steward strength 5/5. RLE strength iliopsoas, quadriceps, tibialis [...] reflex 0. LLE knee reflex 2+. Coordination: Xchmng-jq-hajj testing normal. Rapid alternating movements are normal. Gait: Appears mildly antalgic. Review and summary of old records: MRI of the lumbar spine without contrast at [facility] on 07/05/2024: No abnormal signal [...] spine with and without contrast at [facility] on 06/23/2024: Marked central canal narrowing posterior to C3-C4 extending to C4-C5. Flattening and compression posterior to C3 -C4 and C4-C5. No abnormal signal intensity. Multilevel marked and moderate to marked foramen narrowing. Multilevel degenerative disc disease and degenerative facet arthropathy accounting for the above findings. See full report. Orthostatic vital signs at [facility] on 05/12/2024: Negative. EMG of the right upper extremity at [facility] on 05/10/2024: A remote C8 motor [...] lumbar spine without contrast at [facility] on 02/18/2024: At L1-L2, there is a broad-based disc bulge with a left subarticular disc protrusion. There is mild spinal canal stenosis. There is moderate left and moderate right neural foraminal narrowing. At L3-L4, there is a broad-based disc bulge with facet hypertrophy and endplate osteophyte formation. There is fjke-am-axhcvlrz bilateral neural foraminal narrowing with moderate spinal [...] (neurosurgery) on 07/11/24 and subsequently referred to [facility] neurosurgery for further evaluation and surgical opinion. He was evaluated by Ernie Rankin APRN, CUPOLA MAN on 08/25/24. PLAN: - Follow up with pain management for evaluation and measures to help improve pain and functional ability - Follow up with [facility] spine surgery per their recommendations. Per documentation on 08/25/24, they did not believe the patient was a surgical candidate unless he quits smoking - He is taking meloxicam, Lyrica, and [place] (prescribed by outside provider) Cervical spinal stenosis [...] primary priority. He has established care with [facility] for surgical opinion and was evaluated by Ernie Rankin APRN, CHARLI on 08/25/24. PLAN: - Follow up closely with [facility] spine surgery and pain management. Per chart review, it seems the patient has a CT of the cervical spine scheduled on 10/11/24 with surgical consultation thereafter - He is taking meloxicam, Lyrica, and [place] (prescribed by outside provider) Carpal tunnel syndrome [...] new or worsening symptoms. Savita Alcantara NP [facility] Advanced Neurology documented in this encounter [facility] 08-25-2024 Instructions Ernie Rankin APRN.CHARLI - 08/25/2024 2:08 PM EST I recommend attempting an injection with your pain management provider for your low back and left buttock pain. Injection options would include a left SI Joint injection or a left L4-L5 TFESI. Please obtain the following images and have them sent to us: MRI Cervical Spine 06/24/2024 @ [facility] MRI Lumbar Spine 02/18/2024 @ [facility] HOW TO SEND YOUR IMAGES AND REPORTS Contact the radiology facility where the images were completed and ask if they have PACs (Picture Archiving and Communication System). If they have PACs, request that your images be sent over the internet directly to [facility] via PACs. Note: If they have PACS they will know how to do this. Their image transmission system may have another name. Once transmitted, it will take our radiology dept approximately 2-3 days to process it into your chart. OR Mailing instructions: [facility] C/O Ernie Rankin CNP [address]/[place] [address] Upload Instructions: The [facility] has a secure [...] . To upload images to the secure [facility] website please click on the following link: [email or web address] Select Spine [facility] as the center. OR Use link below [email or web address] Please have imaging reports faxed to us at [phone] PLEASE NOTE: [employer] ([employer]) computers are not supported by this application at this time. The application will work with the latest versions of [employer], [employer], [employer], and [facility]. Thank you Ernie Rankin APRN.CHARLI documented in this encounter [facility] 08-25-2024 Note HNO ID: [id number] Author: ERNIE RANKIN APRN.CUPOLA MAN Service: ? Author Type: Nurse Practitioner Type: [...] - Generalized low back pain (main pain bung driver) - Right calf to foot numbness/tingling [...] Membrane stabilizer: Lyrica OTC NSAIDs Topiramate Narcotic: Shinglehouse - longterm- local pain shipping manager PREVIOUS SPINAL SURGERY: None ACTIVE PROBLEM [...] Benign affect. Spine (more content not included)... [facility] 08-25-2024 History of Present illness Narrative SPINE SURGERY NEW PATIENT This [...] - Generalized low back pain (main pain bung driver) - Right calf to foot numbness/tingling [...] Membrane stabilizer: Lyrica OTC NSAIDs Topiramate Narcotic: Shinglehouse - longterm- local pain shipping manager PREVIOUS SPINAL SURGERY: None ACTIVE PROBLEM [...] BICEPS TRICEPS DELTS Wrist Ext Wrist Flex Mixed Livestock Farmer HI R 3 5 3 5 5 [...] Medication: Continue current 4. Referrals: Local pain shipping manager to attempt left L4-5 TFESI or [...] 1:12 PM PAGER: documented in this encounter [facility] 08-25-2024 History of Present illness Narrative Radiology Service Progress Note PATIENT [...] PATIENT PRESENTS WITH AN IMPLANTABLE OR ATTACHED VEGETABLE HANDLER: No RADIOLOGY DEPARTMENT: General X-ray: Exam(s) Completed: Spine X-Ray(s): Cervical AP / LAT / FLEX-EXT and Lumbar AP / LAT / L5-S1 / FLEX-EXT PERIPHERAL IV DATA: Not applicable SIGNED BY: RT Darleen(R) August 25, 2024 1:21 PM documented in this encounter [facility] 08-25-2024 Note HNO ID: [id number] Author: LEELA RIBERA RT(Cirilo) Service: Radiology Author Type: Technologist Type: Progress [...] PATIENT PRESENTS WITH AN IMPLANTABLE OR ATTACHED VEGETABLE HANDLER: No RADIOLOGY DEPARTMENT: General X-ray: Exam(s) Completed: Spine X-Ray(s): Cervical AP / LAT / FLEX-EXT and Lumbar AP / LAT / L5-S1 / FLEX-EXT PERIPHERAL IV DATA: Not applicable SIGNED BY: RT Darleen(R) August 25, 2024 1:21 PM [facility] 08-22-2024 History of Present illness Narrative IM PROGRESS NOTE Patient - Bee Harris Age - 58 y.[facility] 1965 [id number] ASSESSMENT & PLAN 1. Traumatic left-sided intracerebral [...] -needs to keep follow-up with Neurosurgery at [facility] to evaluate stabilization options. -in the [...] stenosis. He ultimately has been referred to [facility] for consideration of a cervical fusion. This is scheduled in the next 1-2 weeks. -he continues to have problems with his balance. A VNG did show central vertigo, and he was referred to ENT. ENT referred him to vestibular Clinic in [place], but the patient has not been able to schedule were attend an evaluation. He intermittently uses his cane or walking stick, because he does not want to appear old -his glaucoma has been treated by his copra sampler. Currently on latanoprost, and reportedly the pressures [...] Testing No results found. Cris Singh DO., [facility] Physicians Office: [phone] documented in this encounter [facility] 08-09-2024 History of Present illness Narrative Images from the original note [...] (neurosurgery) on 07/11/2024 and subsequently referred to [facility] neurosurgery. The patient states Dr. Caba felt more comfortable with him getting a surgery consult at a larger institution. He has an appointment with Ernie Rankin APRN, CNP (neurosurgery) at [facility] on 08/25/2024. The patient continues to follow with pain management. His next appointment with Lalitha Vela MD is on 08/29/2024. He states pain management has prescribed Lyrica and Shinglehouse for his symptoms, however, neither of these [...] hydrocodone-acetaminophen 7.5-325 MG tablet; Commonly known as: [place] IRON PO latanoprost 0.005 % ophthalmic solution; [...] Meniere's disease Polyneuropathy Smoker Traumatic brain injury (CMS/[facility]) Past Surgical History: Procedure Laterality Date CT [...] wrist extensors , wrist flexor , and wire steward strength 4+/5. May be a component of giveway weakness. Reduced range of motion in the right deltoid - patient states this is chronic. LUE strength deltoid , biceps , triceps , wrist extensors , wrist flexor , and wire steward strength 5/5. RLE strength iliopsoas, quadriceps, tibialis [...] reflex 0. LLE knee reflex 2+. Coordination: Wpdnhm-zg-fbnr testing normal. Rapid alternating movements are normal. Gait: Appears antalgic. Review and summary of old records: MRI of the lumbar spine without contrast at [facility] on 07/05/2024: No abnormal signal [...] spine with and without contrast at [facility] on 06/23/2024: Marked central canal narrowing posterior to C3-C4 extending to C4-C5. Flattening and compression posterior to C3 -C4 and C4-C5. No abnormal signal intensity. Multilevel marked and moderate to marked foramen narrowing. Multilevel degenerative disc disease and degenerative facet arthropathy accounting for the above findings. See full report. Orthostatic vital signs at [facility] on 05/12/2024: Negative. EMG of the right upper extremity at [facility] on 05/10/2024: A remote C8 motor [...] lumbar spine without contrast at [facility] on 02/18/2024: At L1-L2, there is a broad-based disc bulge with a left subarticular disc protrusion. There is mild spinal canal stenosis. There is moderate left and moderate right neural foraminal narrowing. At L3-L4, there is a broad-based disc bulge with facet hypertrophy and endplate osteophyte formation. There is wadg-wk-rdlqyoce bilateral neural foraminal narrowing with moderate spinal [...] (neurosurgery) on 07/11/24 and subsequently referred to [facility] neurosurgery for further evaluation and surgical opinion. PLAN: - I advised the patient to follow up closely with [facility] neurosurgery - Follow up with pain management for evaluation and measures to help improve his pain and functional ability - He is taking meloxicam, Lyrica, and [place] (prescribed by outside provider) Cervical spinal stenosis [...] is indicated, and he is scheduled with [facility] neurosurgery on 08/25/24. PLAN: - I advised the patient to follow up closely with [facility] neurosurgery and pain management - He is taking meloxicam, Lyrica, and [place]house (prescribed by outside provider) Carpal tunnel syndrome [...] Meniere's disease Greater than 40 minutes on sppt-oi-lsba interaction discussing diagnsosis, prognosis, and treatment options [...] new or worsening symptoms. Savita Alcantara NP [facility] Advanced Neurology documented in this encounter [facility] 08-09-2024 Instructions Savita Alcantara NP - 08/09/2024 2:20 PM EST - Start venlafaxine ER 37.5 mg by mouth once a day - Follow up with neurosurgery documented in this encounter [facility] 07-20-2024 Note HNO ID: [id number] Author: LOIS MEDEIROS PA-C Service: ? Author Type: Physician Road Machine Runner Type: Progress Notes Filed: 07/20/2024 22:06 Note [...] PT Lyrica Darcy back and body Topiramate [place] Studies (Reports unless indicated) MRI lumbar spine [...] is available for review Lois Medeiros PA-C [facility] 07-20-2024 History of Present illness Narrative Per Triage: Bee Harris is [...] PT Lyrica Darcy back and body Topiramate [place] Studies (Reports unless indicated) MRI lumbar spine [...] Health Provider or Pain Management Provider at [facility]? No If answer is YES please [...] MRI Lumbar (07/05/24), MRI Cervical (06/23/24) The [address] [address] MRI/CT/myelogram viewable in Epic: No If not, please provide [phone] to fax in imaging reports for review. [...] and/or physical therapy was completed PT: [facility] [address] [place] [address] Currently working with insurance for injection approval Have you tried any other kinds of non-surgical treatments in the last 12 months? (For example: NSAIDS, muscle relaxants, analgesics, oral steroids, Chiropractor, Acupuncture): Lyrica, Darcy Back & Body, Meloxicam, Topiramate 4. Are you currently taking daily prescribed narcotic medications for your current symptoms (For example Oxycodone, Hydrocodone, Tramadol, Morphine, Other)? Yes, [place] 5. Have you had previous spinal surgery for this same symptoms? No If YES please ask for the name of facility/address of where the surgery was completed: Additional Comments [phone] documented in this encounter [facility] 07-15-2024 Note HNO ID: [id number] Author: ?, ?, ? Service: ? Author Type: ? Type: Progress Notes Filed: 07/20/2024 22:06 Note Text: Patient name: Bee Harris Are you being referred by a Center for Sp[facility] Health Provider or Pain Management Provider at [facility]? No If answer is YES please [...] MRI Lumbar (07/05/24), MRI Cervical (06/23/24) [facility] [address] [place] [id number] MRI/CT/myelogram viewable in Epic: No If not, please provide [phone] to fax in imaging reports for review. [...] and/or physical therapy was completed PT: [place] [address] Currently working with insurance for injection approval Have you tried any other kinds of non-surgical treatments in the last 12 months? (For example: NSAIDS, muscle relaxants, analgesics, oral steroids, Chiropractor, Acupuncture): Lyrica, Darcy Back AND Body, Meloxicam, Topiramate 4. Are you currently taking daily prescribed narcotic medications for your current symptoms (For example Oxycodone, Hydrocodone, Tramadol, Morphine, Other)? Yes, [place] 5. Have you had previous spinal surgery for this same symptoms? No If YES? please ask for the name of facility/address of where the surgery was completed: Additional Comments [phone] [facility] 06-16-2024 Miscellaneous Notes Patient needs a letter stating that you have been treating him and he is unable to work for child support. Message noted. A letter is in his chart documented in this encounter [facility] 06-16-2024 Telephone encounter Note Patient needs a letter stating that you have been treating him and he is unable to work for child support. [facility] 06-16-2024 Telephone encounter Note Message noted. A letter is in his chart [facility] 06-01-2024 History of Present illness Narrative Subjective Patient ID: Bee Harris [...] of colon with perforation 08/21/2022 Essential hypertension ([facility]) 08/21/2022 Fall 06/19/2022 History of colostomy reversal 10/16/2020 Hyperglycemia 08/21/2022 Hyperlipidemia ([facility]) 08/21/2022 Hypokalemia 08/21/2022 Multiple fractures of ribs, left side, initial encounter for closed fracture 06/29/2022 Oropharyngeal dysphagia 06/29/2022 Overweight 08/21/2022 Perforated diverticulum 04/23/2020 Purpura ([facility]) 08/21/2022 TBI (traumatic brain injury) ([facility]) 02/15/2024 Urinary retention 06/29/2022 Well adult health [...] facilitate vestibular rehab documented in this encounter [facility] 05-25-2024 History of Present illness Narrative History: Pt was referred to [...] Type A tympanogram documented in this encounter [facility] 05-19-2024 History of Present illness Narrative IM PROGRESS NOTE Patient - Bee Harris Age - 58 [facility] 1965 [id number] ASSESSMENT & PLAN 1. Intractable chronic post-traumatic [...] know what his pressures are. Sees the firefighter type one in several weeks for recheck. As cataracts [...] Testing No results found. Cris Singh DO., [facility] Office: [phone] documented in this encounter [facility] 05-16-2024 Telephone encounter Note Reviewed, thank you. [facility] 05-16-2024 Miscellaneous Notes Reviewed, thank you. Note is routed to you and in media Notes have been requested. Should be in faxes. Can you please request the neurosurgery note for me to review? The patient was seen by Kinza Caba. documented in this encounter [facility] 05-16-2024 Telephone encounter Note Note is routed to you and in media [facility] 05-13-2024 Telephone encounter Note Notes have been requested. Should be in faxes. [facility] 05-12-2024 Telephone encounter Note Can you please request the neurosurgery note for me to review? The patient was seen by Kinza Caba. [facility] 05-12-2024 History of Present illness Narrative Images from the original note were not included. Savita Alcantara NP Chief Complaint Patient presents with Numbness Extremity Weakness Subjective Bee Harris is a 58 y.o. male. HPI The patient presents today for follow up. He had labs and an EMG of the right upper extremity completed for review. He does not drive and receives transportation via his health insurance, [employer]. The patient was evaluated by Dr. Singh ([facility] internal medicine) 04/28/2024. He was evaluated by Dr. Caba (neurosurgery) on 05/09/[address]24. [address] Caba referred him to [facility] pain management, and he has [...] wrist extensors , wrist flexor , and wire steward strength 4+/5. May be a component of giveway weakness. Reduced range of motion in the right deltoid - patient states this is chronic. LUE strength deltoid , biceps , triceps , wrist extensors , wrist flexor , and wire steward strength 5/5. RLE strength iliopsoas, quadriceps, tibialis [...] reflex 0. LLE Knee reflex 2+. Coordination: Fqpuyr-kr-sxaa testing normal. Rapid alternating movements are normal. Gait: Appears antalgic. Review and summary of old records: Orthostatic vital signs at [facility] on 05/12/2024: Negative Laying - blood pressure 120/68, heart rate 72 beats/min Sitting - blood pressure 124/76, heart rate 72 beats/min Standing for 3 minutes - blood pressure 122/84, heart rate 94 beats/min EMG of the right upper extremity at [facility] on 05/10/2024: A remote C8 motor [...] lumbar spine without contrast at [facility] on 02/18/2024: At L1-L2, there is a broad-based disc bulge with a left subarticular disc protrusion. There is mild spinal canal stenosis. There is moderate left and moderate right neural foraminal narrowing. At L3-L4, there is a broad-based disc bulge with facet hypertrophy and endplate osteophyte formation. There is qpuu-ib-yrotqeui bilateral neural foraminal narrowing with moderate spinal [...] [facility] documented in this encounter [facility] 05-12-2024 Instructions Savita Alcantara NP - 05/12/2024 2:40 PM EDT - MRI of the cervical spine - Referral to orthopedic surgery documented in this encounter [facility] 05-10-2024 History of Present illness Narrative Images from the original note were not included. Reason for Appointment: EMG Patient: Bee Harris : 1965 EMG Computer: AVST Referring Physician: Savita Alcantara CNP EMG: [place] deli worker: Meliton Burnette RT(R) Office Location: Shock Reason for EMG: c/o pain in right shoulder. No hx of DM. Not on blood thinners Comments: Procedure was explained to the patient who expressed understanding. Patient appeared to have tolerated the test well despite some discomfort due to the nature of the test. documented in this encounter [facility] 04-28-2024 History of Present illness Narrative IM PROGRESS NOTE Patient - [...] THE MORNING, Disp: 30 tablet, Rfl: 1 peapsbio-ssul-TA-calcium &mins (THERAGRAN-M) 9 mg iron-400 mcg tablet, [...] Testing No results found. Cris Singh DO., [facility] Office: [phone] documented in this encounter [facility] 03-08-2024 History of Present illness Narrative IM PROGRESS NOTE Patient - [...] conscious level with patient surviving, initial encounter ([facility] - has been evaluated by Neurology - [...] Exam Vitals reviewed. Exam conducted with a corporate tax preparer present (). Constitutional: General: He is not [...] the morning., Disp: 90 tablet, Rfl: 1 ugfrfgsw-sfmk-RZ-calcium &mins (THERAGRAN-M) 9 mg iron-400 mcg tablet, [...] Testing No results found. Cris Singh DO., [facility] Office: [phone] documented in this encounter [facility] 02-08-2024 Miscellaneous Notes ----- Message from Dr. Cris Singh DO sent at 12/29/2023 4:08 PM EDT -----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 Memorial HealthcareInstructionsNot on filedocumented in this encounterProMedica Health SystemInstructionsNot on filedocumented in this encounterProMedica Health SystemInstructionsNot on filedocumented in this encounterProMedica Health SystemInstructionsNot on filedocumented in this encounterProMedica Health SystemInstructionsNot on filedocumented in this encounterProMedica Health SystemInstructionsNot on filedocumented in this encounterProMedica Health SystemInstructionsNot on filedocumented in this encounterProMedica Health SystemInstructionsNot on filedocumented in this encounterProMedica Health SystemInstructionsNot on filedocumented in this encounterProMedica Health SystemInstructionsNot on filedocumented in this encounterProMedica Health SystemInstructionsNot on filedocumented in this encounterProMedica Health SystemInstructionsNot on filedocumented in this encounterProMedica Health SystemReason for referral (narrative)* Diagnostic Procedure Only (Routine) - New Request Specialty Diagnoses / Procedures Referred By Georges mays Referred To Contact XR IMAGING Diagnoses Cervical stenosis of spinal canal Procedures XR CERV OTHER 4V AP/LAT/FLX/EXT RADEX SPINE CERVICAL 4 OR 5 VIEWS Lois Medeiros PA-C [address] [place] [address] X[facility] Imaging [place] [address] Referral ID Status Reason Start Date Expiration Date Visits Requested Visits Authorized [id number] New Request Auto-Generat ed Referral 4 08/19/2025 1 1 * Diagnostic Procedure Only (Routine) - New Request Specialty Diagnoses / Procedures Referred By Georges mays Referred To Contact XR IMAGING Diagnoses Spinal stenosis, lumbar region with neurogenic claudication Procedures XR LUMBAR MOTION 4V AP/LAT/ FLEX/EXT RADEX SPINE LUMBOSACRAL MINIMUM 4 VIEWS Lois Medeiros PA-C [address] [place] [address] [place] [address] Referral ID Status Reason Start Date Expiration Date Visits Requested Visits Authorized [id number] New Request Auto-Generat ed Referral 08/19/2025 1 1 [facility] for referral (narrative)* Diagnostic Procedure Only (Routine) - Closed Specialty Diagnoses / Procedures Referred By Contac t Referred To Contact XR IMAGING Diagnoses Cervical stenosis of spinal canal Procedures XR CERV OTHER 4V AP/LAT/FLX/EXT RADEX SPINE CERVICAL 4 OR 5 VIEWS Lois Medeiros PA-C [address] [place] [address] [place] [address] Referral ID Status Reason Start Date Expiration Date V isits Requested Visits Authorized [id number] Closed Auto-Generate d Referral 07/20/2024 08/19/2025 1 1 * Diagnostic Procedure Only (Routine) - Closed Specialty Diagnoses / Procedures Referred By Contac t Referred To Contact XR IMAGING Diagnoses Spinal stenosis, lumbar region with neurogenic claudication Procedures XR LUMBAR MOTION 4V AP/LAT/ FLEX/EXT RADEX SPINE LUMBOSACRAL MINIMUM 4 VIEWS Lois Medeiros, PA-C [address] [place] [address] [place] [address] Referral ID Status Reason Start Date Expiration Date V isits Requested Visits Authorized [id number] Closed Auto-Generate d Referral 07/20/2024 08/19/2025 1 1 [facility] for referral (narrative)* Consultation (Routine) - Pending Review Specialty Diagnoses / Procedures Referred By Contac t Referred To Contact Neurology Diagnoses 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, subsequent encounter Cris Singh, DO [address] [place] [address] Sander Godoy MD [address] [place] [id number] Referral ID Status Reason Start Date Expiration Date Visits Requested Visits Authorized [id number] Pending Review Specialty Services Required 12/29/2023 12/28/2024 1 1 * Consultation (Routine) - Pending Review Specialty Diagnoses / Procedures Referred By Georges mays Referred To Contact Otolaryngology Diagnoses Meniere's disease of both ears Cris Singh DO [address] [place] [address] Paola Garay MD [address] [place] [address] Referral ID Status Reason Start Date Expiration Date Visits Requested Visits Authorized [id number] Pending Review Specialty Services Required 12/29/2023 12/28/2024 1 1 [facility] Summary Purpose Family History Relationship Condition Age [...] 9:19 PM Date Activated Date Inactivated Comments 11/16/2024 11:36 AM 11/19/2024 2:43 PM Question Answer Comments Full Code Order Discussed With: Patient Date Activated Date Inactivated Comments 11/16/2024 11:36 AM 11/19/2024 2:43 PM Question Answer Comments Full Code Order Discussed With: Patient Chief Complaint and Reason for Visit Chief Complaint r29.898 Reason for Referral Specialty Diagnoses / Procedures Referred By Contac t Referred To Contact CT IMAGING Diagnoses Spinal stenosis of cervical region Procedures CT CERVICAL SPINE WO IVCON CT CERVICAL SPINE W/O CONTRAST MATERIAL Ernie Rankin, TALENT CONSULTANT.[employer] [address] Mail [address] [place] [address] [place] [address] Referral ID Status Reason Start Date Expiration Date Visits Requested Visits Authorized [id number] New Request Auto-Generat ed Referral 08/25/2024 09/24/2025 1 1 Specialty Diagnoses / Procedures Referred By Contac t Referred To Contact Radiology Diagnoses Traumatic brain injury, 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 with patient surviving, initial encounter ([facility]) Procedures MR brain without contrast Cris Singh, DO [address] [place] [address] Referral ID Status Reason Start Date Expiration Date V isits Requested Visits Authorized [id number] Pending Review 12/07/2023 12/06/2024 1 1 Additional Source Comments (unrecognized sect ion and content) No Status Records FoundNo Status Records FoundNo Status Records FoundNo Status Records FoundNo Status Records FoundNo Status Records FoundNo Status Records FoundNo Status Records FoundNo Status Records FoundNo Status Records FoundNo Status Records FoundNo Status Records Found INFORMATION SOURCE (unrecogn ized section and content) DATE CREATED AUTHOR 03/11/2019 [facility] DATE CREATED AUTHOR AUTHOR'S ORGANIZ ATION 12/09/2023 [facility] DATE CREATED AUTHOR AUTHOR'S ORGANIZ ATION 12/24/2023 [facility] DATE CREATED AUTHOR AUTHOR'S ORGANIZ ATION 10/29/2024 [facility] DATE CREATED AUTHOR AUTHOR'S ORGANIZ ATION 11/22/2024 [facility] DATE CREATED AUTHOR AUTHOR'S ORGANIZ ATION 12/20/2024 [facility] DATE CREATED AUTHOR AUTHOR'S ORGANIZ ATION 02/11/2025 [facility] DATE CREATED AUTHOR AUTHOR'S ORGANIZ ATION 02/24/2025 [facility] DATE CREATED AUTHOR AUTHOR'S ORGANIZ ATION 03/03/2025 [facility] DATE CREATED AUTHOR AUTHOR'S ORGANIZ ATION 03/11/2025 [facility] DATE CREATED AUTHOR AUTHOR'S ORGANIZ ATION 03/16/2025 [facility] DATE CREATED AUTHOR AUTHOR'S ORGANIZ ATION 04/08/2025 [facility] Care Teams (unrecognized sec tion and content) Team Status: Active Member Role Status Dates NON STAFF Primary Care Provider Active Team Status: Inactive Member Role Status Dates NON STAFF Primary Care Provider Active Start: February 18, 2024 End: February 18, 2024 Deanna Mejia DO Attending Provider Active Start: February 18, 2024 End: February 18, 2024 Brick Stacker Relationship Specialty Start Date End Date Cris Singh MD [address] [place] [address] PCP - General Internal Medicine 01/04/24 Brick Stacker Relationship Specialty Start Date End Date Cris Singh MD [address] [place] [address] PCP - General Internal Medicine 01/04/24 Brick Stacker Relationship Specialty Start Date End Date Cris Singh MD [address] [place] [address] PCP - General Internal Medicine 01/04/24 Brick Stacker Relationship Specialty Start Date End Date Cris Singh MD [address] [place] [facility] [place] [address] PCP - General Internal Medicine 01/04/24 Brick Stacker Relationship Specialty Start Date End Date Cris Singh MD [address] [place] [address] PCP - General Internal Medicine 01/04/24 Brick Stacker Relationship Specialty Start Date End Date Cris Singh MD [address] [facility] [place] [address] PCP - General Internal Medicine 01/04/24 Brick Stacker Relationship Specialty Start Date End Date Cris Singh DO [address] [facility] [place] [address] PCP - General Internal Medicine 12/07/23 Brick Stacker Relationship Specialty Start Date End Date Cris Singh [address] [facility] [place] [address] PCP - General Internal Medicine 07/14/24 Kinza Caba DO [address] [place] [address] Referring Neurology 07/14/24 Brick Stacker Relationship Specialty Start Date End Date Cris Singh MD [address] [facility] [place] [address] PCP - General Internal Medicine 01/04/24 Brick Stacker Relationship Specialty Start Date End Date Cris Singh DO [address] [facility] [place] [address] PCP - General Internal Medicine 12/07/23 Brick Stacker Relationship Specialty Start Date End Date Cris Singh [address] [place] [address] PCP - General Internal Medicine 07/14/24 Kinza Caba DO [address] [place] [address] Referring Neurology 07/14/24 Brick Stacker Relationship Specialty Start Date End Date Cris Singh DO [address] [place] [address] PCP - General Internal Medicine 12/07/23 Brick Stacker Relationship Specialty Start Date End Date Cris Singh DO [address] [place] [address] PCP - General Internal Medicine 12/07/23 Brick Stacker Relationship Specialty Start Date End Date Cris Singh DO [address] [place] [address] PCP - General Internal Medicine 12/07/23 Brick Stacker Relationship Specialty Start Date End Date Cris Singh DO [address] [place] [address] PCP - General Internal Medicine 12/07/23 Brick Stacker Relationship Specialty Start Date End Date Cris Singh DO [address] [place] [address] PCP - General Internal Medicine 12/07/23 Brick Stacker Relationship Specialty Start Date End Date Cris Singh DO [address] [place] [address] PCP - General Internal Medicine 12/07/23 Brick Stacker Relationship Specialty Start Date End Date Cris Singh DO [address] [place] [address] PCP - General Internal Medicine 12/07/23 Brick Stacker Relationship Specialty Start Date End Date Cris Singh DO [address] [place] [address] PCP - General Internal Medicine 12/07/23 Brick Stacker Relationship Specialty Start Date End Date Cris Singh DO [address] [place] [address] PCP - General Internal Medicine 12/07/23 Brick Stacker Relationship Specialty Start Date End Date Cris Singh MD [address] [place] [address] PCP - General Internal Medicine 01/04/24 Brick Stacker Relationship Specialty Start Date End Date Cris Singh MD [address] [place] [address] PCP - General Internal Medicine 01/04/24 Brick Stacker Relationship Specialty Start Date End Date Cris Singh [address] [place] [address] PCP - General Internal Medicine 07/14/24 Kinza Caba DO [address] [place] [address] Referring Neurology 07/14/24 Brick Stacker Relationship Specialty Start Date End Date Ana RosaCris jasso Prasad [address] [place] [address] PCP - General Internal Medicine 07/14/24 Kinza Caba DO [address] [place] [address] Referring Neurology 07/14/24 Brick Stacker Relationship Specialty Start Date End Date Cris Singh [address] [place] [address] PCP - General Internal Medicine 07/14/24 Kinza Caba DO [address] [place] [address] Referring Neurology 07/14/24 Brick Stacker Relationship Specialty Start Date End Date Cris Singh [address] [place] [address] PCP - General Internal Medicine 07/14/24 Kinza Caba DO [address] [place] [address] Referring Neurology 07/14/24 Brick Stacker Relationship Specialty Start Date End Date Cris Singh [address] [place] [address] PCP - General Internal Medicine 07/14/24 Kinza Caba DO [address] [place] [address] Referring Neurology 07/14/24 Brick Stacker Relationship Specialty Start Date End Date Cris Singh [address] [place] [address] PCP - General Internal Medicine 07/14/24 Kinza Caba DO [facility] [place] [address] Referring Neurology 07/14/24 Brick Stacker Relationship Specialty Start Date End Date Yimi Cris Prasad [address] [place] [address] PCP - General Internal Medicine 07/14/24 Kinza Caba DO [address] [place] [address] Referring Neurology 07/14/24 Brick Stacker Relationship Specialty Start Date End Date Ana Rosaromero Cris Prasad [address] [place] [address] PCP - General Internal Medicine 07/14/24 Kinza Caba DO [address] [place] [address] [place] [address] Referring Neurology 07/14/24 Brick Stacker Relationship Specialty Start Date End Date Cris Singh [address] [place] [address] PCP - General Internal Medicine 07/14/24 Kinza Caba DO [facility] [place] [address] Referring Neurology 07/14/24 Brick Stacker Relationship Specialty Start Date End Date Cris Singh [address] [place] [address] PCP - General Internal Medicine 07/14/24 Kinza Caba DO [address] [place] [address] Referring Neurology 07/14/24 Brick Stacker Relationship Specialty Start Date End Date Cris Singh DO [address] [place] [address] PCP - General Internal Medicine 12/07/23 Brick Stacker Relationship Specialty Start Date End Date Cris Singh [address] [place] [address] PCP - General Internal Medicine 07/14/24 Kinza Caba DO [address] [place] [address] Referring Neurology 07/14/24 Brick Stacker Relationship Specialty Start Date End Date Cris Singh [address] [place] [address] PCP - General Internal Medicine 07/14/24 Kinza Cbaa DO [address] [place] [id number] Referring Neurology 07/14/24 Brick Stacker Relationship Specialty Start Date End Date Cris Singh DO [address] [place] [address] PCP - General Internal Medicine 12/07/23 Brick Stacker Relationship Specialty Start Date End Date Cris Singh [address] [place] [address] PCP - General Internal Medicine 07/14/24 Kinza Caba DO [address] [place] [address] Referring Neurology 07/14/24 Brick Stacker Relationship Specialty Start Date End Date Cris Singh [address] [place] [address] PCP - General Internal Medicine 07/14/24 Kinza Caba DO [address] [place] [address] Referring Neurology 07/14/24 Brick Stacker Relationship Specialty Start Date End Date Cris Singh DO [address] [place] [address] PCP - General Internal Medicine 12/07/23 Brick Stacker Relationship Specialty Start Date End Date Cris Singh MD [address] [place] [address] PCP - General Internal Medicine 01/04/24 Brick Stacker Relationship Specialty Start Date End Date Cris Singh DO [address] [place] [address] PCP - General Internal Medicine 12/07/23 Brick Stacker Relationship Specialty Start Date End Date Cris Singh [address] [place] [address] PCP - General Internal Medicine 07/14/24 Kinza Caba DO [address] [place] [address] Referring Neurology 07/14/24 Brick Stacker Relationship Specialty Start Date End Date Cris Singh [address] [place] [address] PCP - General Internal Medicine 07/14/24 Kinza Caba DO [address] [place] [address] Referring Neurology 07/14/24 Brick Stacker Relationship Specialty Start Date End Date Cris Singh [address] [place] [address] PCP - General Internal Medicine 07/14/24 Kinza Caba DO [address] [place] [address] Referring Neurology 07/14/24 Brick Stacker Relationship Specialty Start Date End Date Cris Singh DO [address] [place] [address] PCP - General Internal Medicine 12/07/23 Brick Stacker Relationship Specialty Start Date End Date Cris Singh DO [address] [place] [address] PCP - General Internal Medicine 12/07/23 Brick Stacker Relationship Specialty Start Date End Date Cris Singh [address] [place] [address] PCP - General Internal Medicine 07/14/24 Kinza Caba DO [address] [place] [address] Referring Neurology 07/14/24 Brick Stacker Relationship Specialty Start Date End Date Cris Singh MD [address] [place] [address] PCP - General Internal Medicine 01/04/24 Brick Stacker Relationship Specialty Start Date End Date Cris Singh MD [address] [place] [address] PCP - General Internal Medicine 01/04/24 Brick Stacker Relationship Specialty Start Date End Date Cris Singh MD [address] [place] [address] PCP - General Internal Medicine 01/04/24 Brick Stacker Relationship Specialty Start Date End Date Cris Singh MD [address] [place] [address] PCP - General Internal Medicine 01/04/24 Goals (unrecognized section and content) Goals may [...] OR 5 VIEWS Lois Medeiros PA-C [address] [place] [address] [place] [address] Referral ID Status Reason Start Date Expiration Date V isits Requested Visits Authorized [id number] Closed Auto-Generate d Referral 07/20/2024 08/19/2025 1 [...] CERVICAL SPINE W/O CONTRAST MATERIAL Ernie Rankin, TALENT CONSULTANT.C[employer]OLA MAN [address] Mail [address] [place] [address] Phone: tel: fax: [facility] [place] [address] Referral ID Status Reason Start Date Expiration Date V isits Requested Visits Authorized [id number] Closed Auto-Generate d Referral 09/29/2024 11/28/2024 1 1 Reason Comments Patient Question Reason Comments Patient Question Preparations For Surgery Reason Comments Pre-Op Exam Reason Comments Patient Update Patient Question Reason Onset Date Comments home care referrals 11/22/2024 Reason Onset Date Comments Refill Request 11/30/2024 Reason Comments Post Op Reason Comments Follow-up Neck surgery 11/16 Reason Comments Medication Problem Reason Onset Date Comments Refill Request 12/27/2024 Reason Comments needs referral to foot docto r. Still migraines, numbness Numbness in shoulders and tingling in fe et and finger tips Reason Onset Date Comments Refill Request 01/20/2025 Reason Comments Hammer Toe Foot Callouses Reason Comments Follow Up Specialty Diagnoses / Procedures Referred By Contac t Referred To Contact Diagnoses Cervical spondylosis with myelopathy Acute post-operative pain Procedures PROVIDER ORDERED FOLLOW UP OFFICE/OUTPATIENT NEW HIGH MDM 60 MINUTES Ernie Rankin APRN.CHARLI [address], Mail [address] [place] [id number] Phone: tel: fax: Referral ID Status Reason Start Date Expiration Date Visits Requested Visits Authorized [id number] Authorized PCP Requested Referral 12/01/2024 12/01/2025 1 1 Reason Comments Appointment info Reason Comments Follow Up Reason Comments Radio Gen RMP Radiology Service Pr ogress NotePATIENT NAME: Bee HarrisMRN: [id number] OF SERVICE: February 21, 2025TIME: 2:05 PMPATIENT IDENTITY VERIFICATION COMPLETED USING TWO (2) IDENTIFIERS: Name and Date of confirmed by patient verbally.FALL SCREENING: Has the patient had 2 falls in the last year or 1 fall with injury or currently using an Ambulatory Assistive Device (Walker, Cane, Wheelchair, Crutches, etc.)? 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) Anemia following surgery Procedures XR CERV GENERAL 2V AP/LAT RADEX SPINE CERVICAL 2 OR 3 VIEWS Ernie Rankin APRN.CHARLI [address] Mail Code [address] [place] [phone] Phone: tel: fax: [facility] [place] [address] Referral ID Status Reason Start Date Expiration Date V isits Requested Visits Authorized [id number] Closed Auto-Generate d Referral 10/11/2024 11/10/2025 1 1 Reason Comments Pre-op clearence for toe amputation Reason Comments Consent Or Instructions preop Reason Comments Post-op 7d s/p amp Reason Comments Post-op Reason Comments Toenail Care Source Comments (unrecognize d section and content) In the event this informatio n is protected by the Federal Confidentiality of Alcohol and Drug Abuse Patient Records regulations: The Federal rules restrict any use of the information to criminally investigate or prosecute any alcohol or drug abuse patient.[facility] the event this information is protected by the Federal Confidentiality of Alcohol and Drug Abuse Patient Records regulations: The Federal rules restrict any use of the information to criminally investigate or prosecute any alcohol or drug abuse patient.[facility] the event this information is protected by the Federal Confidentiality of Alcohol and Drug Abuse Patient Records regulations: The Federal rules restrict any use of the information to criminally investigate or prosecute any alcohol or drug abuse patient.[facility] the event this information is protected by the Federal Confidentiality of Alcohol and Drug Abuse Patient Records regulations: The Federal rules restrict any use of the information to criminally investigate or prosecute any alcohol or drug abuse patient.[facility] the event this information is protected by the Federal Confidentiality of Alcohol and Drug Abuse Patient Records regulations: The Federal rules restrict any use of the information to criminally investigate or prosecute any alcohol or drug abuse patient.[facility]In the event this information is protected by the Federal Confidentiality of Alcohol and Drug Abuse Patient Records regulations: The Federal rules restrict any use of the information to criminally investigate or prosecute any alcohol or drug abuse patient.[facility]In the event this information is protected by the Federal Confidentiality of Alcohol and Drug Abuse Patient Records regulations: The Federal rules restrict any use of the information to criminally investigate or prosecute any alcohol or drug abuse patient.[facility] the event this information is protected by the Federal Confidentiality of Alcohol and Drug Abuse Patient Records regulations: The Federal rules restrict any use of the information to criminally investigate or prosecute any alcohol or drug abuse patient.[facility]In the event this information is protected by the Federal Confidentiality of Alcohol and Drug Abuse Patient Records regulations: The Federal rules restrict any use of the information to criminally investigate or prosecute any alcohol or drug abuse patient.[facility]In the event this information is protected by the Federal Confidentiality of Alcohol and Drug Abuse Patient Records regulations: The Federal rules restrict any use of the information to criminally investigate or prosecute any alcohol or drug abuse patient.[facility]In the event this information is protected by the Federal Confidentiality of Alcohol and Drug Abuse Patient Records regulations: The Federal rules restrict any use of the information to criminally investigate or prosecute any alcohol or drug abuse patient.[facility]In the event this information is protected by the Federal Confidentiality of Alcohol and Drug Abuse Patient Records regulations: The Federal rules restrict any use of the information to criminally investigate or prosecute any alcohol or drug abuse patient.[facility] the event this information is protected by the Federal Confidentiality of Alcohol and Drug Abuse Patient Records regulations: The Federal rules restrict any use of the information to criminally investigate or prosecute any alcohol or drug abuse patient.[facility]In the event this information is protected by the Federal Confidentiality of Alcohol and Drug Abuse Patient Records regulations: The Federal rules restrict any use of the information to criminally investigate or prosecute any alcohol or drug abuse patient.[facility]In the event this information is protected by the Federal Confidentiality of Alcohol and Drug Abuse Patient Records regulations: The Federal rules restrict any use of the information to criminally investigate or prosecute any alcohol or drug abuse patient.[facility]In the event this information is protected by the Federal Confidentiality of Alcohol and Drug Abuse Patient Records regulations: The Federal rules restrict any use of the information to criminally investigate or prosecute any alcohol or drug abuse patient.[facility]In the event this information is protected by the Federal Confidentiality of Alcohol and Drug Abuse Patient Records regulations: The Federal rules restrict any use of the information to criminally investigate or prosecute any alcohol or drug abuse patient.[facility] HospitalIn the event this information is protected by the Federal Confidentiality of Alcohol and Drug Abuse Patient Records regulations: The Federal rules restrict any use of the information to criminally investigate or prosecute any alcohol or drug abuse patient.[facility] HospitalIn the event this information is protected by the Federal Confidentiality of Alcohol and Drug Abuse Patient Records regulations: The Federal rules restrict any use of the information to criminally investigate or prosecute any alcohol or drug abuse patient.[facility] HospitalIn the event this information is protected by the Federal Confidentiality of Alcohol and Drug Abuse Patient Records regulations: The Federal rules restrict any use of the information to criminally investigate or prosecute any alcohol or drug abuse patient.[facility] HospitalIn the event this information is protected by the Federal Confidentiality of Alcohol and Drug Abuse Patient Records regulations: The Federal rules restrict any use of the information to criminally investigate or prosecute any alcohol or drug abuse patient.[facility]In the event this information is protected by the Federal Confidentiality of Alcohol and Drug Abuse Patient Records regulations: The Federal rules restrict any use of the information to criminally investigate or prosecute any alcohol or drug abuse patient.[facility] HospitalIn the event this information is protected by the Federal Confidentiality of Alcohol and Drug Abuse Patient Records regulations: The Federal rules restrict any use of the information to criminally investigate or prosecute any alcohol or drug abuse patient.[facility] HospitalIn the event this information is protected by the Federal Confidentiality of Alcohol and Drug Abuse Patient Records regulations: The Federal rules restrict any use of the information to criminally investigate or prosecute any alcohol or drug abuse patient.[facility] HospitalIn the event this information is protected by the [facility] Confidentiality of Alcohol and Drug Abuse Patient Records regulations: The Federal rules restrict any use of the information to criminally investigate or prosecute any alcohol or drug abuse patient.[facility] HospitalIn the event this information is protected by the Federal Confidentiality of Alcohol and Drug Abuse Patient Records regulations: The Federal rules restrict any use of the information to criminally investigate or prosecute any alcohol or drug abuse patient.[facility] FOR RECORDS PERTAINING TO PATIENTS WHO ARE [...] BE BASED ON THE PRIMARY CLINICAL RECORDS. [facility]. provides no warranty or guarantee of the accuracy or completeness of information in this document.
--- NOTE | 2025-05-11 13:20 | PM.CN ---
Consult Note: HPI Data of Consult Patient: known to practice within the last 3 years Consult date: 05/11/25 Requesting Physician: Tonia Rosado NP Primary Care Provider: CRIS SINGH Consult Narrative Reason for consult: low back pain Narrative: Maxwell Jean a pleasant 59 year old male presents for evaluation and management of chronic severe neck and low back pain. Pain today 6/10 in neck and low back, reports no improvement in his pain since last visit. Has been utilizing meloxicam, tylenol, robaxin, pregabalin, topomax, lyrica, norco 7.5mg BID PRN with benefit without side effects. Pt reports increased pain with lifting, standing, walking, sleeping. Has completed 6 visits of PT without improvement in pain or functional ability. cc:: CC: Tonia Rosado NP Review of Systems ROS Musculoskeletal Reports: back pain, neck pain and joint pain PFSH PFS Medical History Enlarged prostate ?N40.0 - Benign prostatic hyperplasia without lower urinary tract symptoms (ICD-10) Hearing deficit ?H91.90 - Unspecified hearing loss, unspecified ear (ICD-10) Glaucoma ?H40.9 - Unspecified glaucoma (ICD-10) Low back pain ?M54.50 - Low back pain, unspecified (ICD-10) High cholesterol ?E78.00 - Pure hypercholesterolemia, unspecified (ICD-10) Hypertension ?I10 - Essential (primary) hypertension (ICD-10) Social History Little interest or pleasure in doing things: not at all Feeling down, depressed, or hopeless: not at all Meds Home Medications and Allergies Home Medications ?Medication ?Instructions ?Recorded ?Confirmed ?Type atorvastatin 40 mg tablet 40 mg PO DAILY 05/16/24 10/24/24 History cyanocobalamin (vitamin B-12) 2,000 mcg PO DAILY 05/16/24 10/24/24 History 1,000 mcg tablet (Vitamin B-12) meloxicam 15 mg tablet 15 mg PO DAILY 05/16/24 10/24/24 History topiramate 50 mg tablet 50 mg PO BID 05/16/24 10/24/24 History naloxone 4 mg/actuation nasal 4 mg intranasal Q2M PRN opioid 07/14/24 10/24/24 Rx spray (Narcan) overdose #2 ea bupropion HCl 150 mg 24 hr tablet, 150 mg PO 10/03/24 History extended release latanoprost 0.005 % eye drops drp ophthalmic (eye) 10/03/24 History venlafaxine 37.5 mg 37.5 mg PO 10/03/24 History capsule,extended release 24 hr hydrocodone 7.5 mg-acetaminophen 1 tab PO BID PRN pain #60 tabs 02/08/25 Rx 325 mg tablet pregabalin 200 mg capsule (Lyrica) 200 mg PO TID #90 caps 03/30/25 Rx methocarbamol 500 mg tablet 500 mg PO BID PRN spasms 05/11/25 05/11/25 History Allergies Allergy/AdvReac Type Severity Reaction Status Date / Time No Known Drug Allergies Allergy Verified 10/24/24 12:45 Exam Constitutional Documenting provider has reviewed patient's vital signs: yes Common normals: no apparent distress, oriented x3, healthy appearing, alert and well nourished General appearance: cooperative HENMT Common normals: normocephalic, hearing grossly normal bilaterally and moist oral mucous membranes Head and scalp: normocephalic Eye Common normals: PERRL Pupil: PERRL Neck & C-Spine Common normals: full ROM General: normal visual inspection Cervical spine: cervical ROM abnormal and pain with cervical ROM Chest Common normals: inspection of chest normal Respiratory Common normals: normal respiratory effort, no retractions and no use of accessory muscles Back & Pelvis Lumbar spine/lower back: ROM limited, pain with ROM and lumbar spinal tenderness Lumbar spinal tenderness location: L3, L4 and L5 Other: positive facet loading strength 5/5 in BLE Neuro Common normals: oriented x3 Sensorium/orientation: alert Psych Common normals: mental status grossly normal, thought process normal, cooperative, affect normal, speech normal and activity/motor behavior normal Speech: normal speech Thought process: normal thought process Results Additional Findings Additional findings: If on a controlled substance or opioids, I have checked an [place]AR[place] report on this patient and there are no aberrancies noted in the prescribing history.??If on a controlled substance or opioid a drug screen was completed and reviewed within the last year, and if there has not been a drug screen completed we ordered one today to monitor higher risk, state monitored pain medication use. As part of providing excellent, safe, comprehensive care, the following was completed at our patient's visit: 1. A medication reconciliation and review to ensure accurate knowledge of current/active medications, including asking our patients to inform us about any [id number] medications or herbal remedies/nutritional supplements/alternative remedies. 2. A review to specifically ensure our patients have had annual screening for screening for depression, screening for tobacco use, and screening for unhealthy alcohol use. For concerning screenings had a discussion with the patient, provided patient education, and recommended follow-up with primary care provider when appropriate. If patient noted with a risk of falling, they received education on strength, gait, and balance training to prevent future risk of falling. Portions of this note may have been carried over from the previous visit and updated as appropriate. Please note this office utilizes paper charting in addition to the electronic medical record. A list of current medications, vitals, and PMH is available there as the clinical staff outside of myself do not have access to [employer] charting during the clinic day operations. As part of providing quality comprehensive care the current medications, vitals, and PMH were reviewed in the paper chart. Assessment and Plan Assessment and Plan (1) Lumbar spondylosis: Assessment and Plan: The patient has had over 3 months of moderate to severe low back pain with functional impairment and inadequate response to conservative care including NSAIDS (unless there are contraindication such as concurrent blood thinners), multiple oral or topical pain medications, and home exercise program/physical therapy.? Patient has completed >6 weeks of guided home exercise program and/or formal physical therapy program without relief of their symptoms.? I have reviewed the imaging of the lumbar spine and no red flags were identified.? The imaging reveals radiographic findings consistent with lumbar ddd, lumbar spondylosis, lumbar stenosis The Oswestry Disability Index was completed, and the patient scored a 38%.? The patient noted the following:?? moderate to severe pain impacting ADLs, sitting, standing, walking, sleeping, social life, travel We discussed the risks and benefits of the procedure with the patient, and we are NOT planning on using sedation as outlined in the guidelines from Medicare unless there is a documented reason that sedation would be strongly recommended.?? ?The procedure will be completed with fluoroscopic guidance.? (2) Chronic use of opiate drug for therapeutic purpose: Assessment and Plan: I feel these medications are improving the patient's quality of life and allow them to tolerate activities of daily living as well as participate in recreational activity.? The patient does not report intolerable side effects. The patient is NOT opioid naive and non-pharmacologic and non-opioid treatment has failed to significantly relieve the patient's pain and improve functionality. The patient has a diagnosis that is related to a somatic or visceral pain etiology. ? ?? I reviewed with the patient the potential risks and side effects with the use of? opioid medications including but not limited to respiratory depression,? sedation, and even . Within the last 12 months I have verified the patient has access to naloxone should? these effects occur. The patient was advised to let? their family know they had Naloxone in case they would need to administer? the medication. I advised the patient to avoid the use of any other? sedation substances including alcohol, THC, and benzodiazepines while? taking opioid medications due to the risk of compounding side effects and? detrimental outcomes. within the last 12 months I have reviewed the [employer], pain treatment agreement and urine drug screen.? ?? A drug screen was completed within the last year, and no aberrancies were noted regarding their use of controlled substances. The patient understands they are subject to the terms and conditions of the pain contract that they have signed. ? ?? I have checked an [place]AR[place] report on this patient today and there are no aberrancies noted in the prescribing history.? (3) Myofascial pain: Plan proceed with bilateral L4-5 L5-S1 MBB x2 in consideration of RFA for facet mediated low back pain continue norco 7.5mg BID PRN moderate to severe pain start methocarbamol 500-1000mg bid prn pain.spasms continue HEP as tolerated continue pregabalin 200mg TID f/u after each MBB
== END 2025-05-11 12:27 | disposition home or self-care (01) ==
LOC: PM 12:27
PROVIDERS: PCP Internal Medicine; Visit Provider Nurse Practitioner
DX: M47.816 Spondylosis without myelopathy or radiculopathy, lumbar region (principal); Z79.891 Long term (current) use of opiate analgesic; M79.18 Myalgia, other site
CPT/HCPCS: G0463

== ENCOUNTER 2025-06-12 08:10 | Day surgery (SDC) | payer OTHER, SELFPAY ==
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
--- OUTSIDE RECORDS SUMMARY | 2025-06-12 08:13 | XMS_ITS | Encounter Summary ---
Author Organization [facility] Address [address] [place] [address] Care Team Providers Care School Psychologist Assistant Name Role Phone Cris Singh MD Primary Care Provider [phone] Encounter Details DateTypeDepartmentCare Team (Latest Contact Info)Qwbywosqdjl47/22/2024linisync Result Encounter [facility] Unsolicited Savita Montes De Oca NP [address] [place] [address] Social History Tobacco UseTypesPacks/DayYears UsedDateSmoking Tobacco: Every DayCigarettes Smokeless Tobacco: NeverAlcohol UseStandard Drinks/WeekCommentsYes0 (1 standard drink = 0.6 oz pure alcohol)Sex and Gender InformationValueDate RecordedSex Assigned at BirthNot on fileLegal TyhYyxo3310/15/2022 10:13 PM EDTGender Identity Not on fileSexual OrientationNot on filedocumented as of this encounter Plan of Treatment DateTypeDepartmentCare Team (Latest Contact Info)Zvfqxhrnttn08/20/2025 3:00 PM ESTProcedure Visit [facility] [address] [facility] [address] [place] [phone] Rogelio Kirk DPM [address] [facility] [address] [place] [address] documented as of this encounter Procedures Procedure NamePriorityDate/TimeAssociated DiagnosisCommentsMR CERVICAL SPINE WO/W CON06/24/2024 9:22 AM EST documented in this encounter Results * MR CERVICAL SPINE WO/W CON (06/24/2024 9:22 AM EST)Anatomical RegionLaterality ModalityOtherSpecimen (Source)Anatomical Location / LateralityCollection Method / VolumeCollection TimeReceived Time06/24/2024 9:22 AM EST Narrative 06/24/2024 9:25 AM EST [facility] ?[address] ? [place] [address] ? Magnetic Resonance Report ? Signed ? Patient: KIMBERLYBEE No ?MR#: [id number] ?? : 1965 ?Acct:[id number] ?? Age/Sex: 58 / M ?ADM Date: 06/23/24 ?? Loc: MRI ? Attending Dr: Savita Montes De Oca MANAGER CLEANING ? Ordering Physician: Savita Montes De Oca NP ?? Date of Service: 06/23/24 ?? Procedure(s): MR cervical spine wo/w con ?? Accession Number(s): [id number] ? cc: Savita Montes De Oca NP; CRIS SINGH ? [facility] ? [address] [facility] ? [place] [address] ? Patient Name: ?? BEE STARR ? MRN: [facility]:[id number] ? date: 1965 ?Sex: M ?? Assigned Patient Location: MRI ?? Current Patient Location: ? Accession/Order Number: [id number] ?? Exam Date: 06/23/2024 ??12:30 ?Report Date: 06/24/2024 ??09:22 ? At the request of: ?? SAVITA ??TAVON ? Procedure: ??MR cervical spine wo/w con ? EXAMINATION: MR cervical spine wo/w con ? HISTORY: Weakness Right Upper Extremity ? COMPARISON: No relevant comparison available. ? TECHNIQUE: A variety of imaging planes and parameters were utilized for ?? visualization of suspected pathology without and/or with intravenous Dotarem ?? contrast based on examination type. ? FINDINGS: ?? CRANIOCERVICAL AREA: Normal foramen magnum with no Chiari malformation. ?? PARASPINAL AREA: Normal with no visible mass. ?? BONES: Minimal grade 1 retrolisthesis of C3 on 4. Normal height of the ?? vertebral bodies; no convincing fracture or bone lesion. ?? CORD: Marked flattening and compression posterior to C3-4-5. No abnormal ?? signal ?? Intensity. ? CERVICAL DISC LEVELS: ?? C2-C3: Mild right foramen narrowing secondary to uncovertebral joint spurring. ? No significant narrowing of the central canal or left foramen. No appreciable ?? disc bulging or significant facet arthropathy. ?? C3-C4: Marked central canal and bilateral foramen narrowing. Moderate diffuse ?? disc bulging without disc height reduction. Uncovertebral joint spurring ?? bilaterally. Mild right, moderate-marked left degenerative facet arthropathy. ?? C4-C5: Moderate central canal narrowing with slight flattening of the cord. ?? Moderate-marked right foramen narrowing, marked left foramen narrowing. Mild ?? diffuse disc bulging without significant disc height reduction. Uncovertebral ?? joint spurring. Mild right, moderate-marked left degenerative facet ?? arthropathy. ?? C5-C6: No significant central canal narrowing. Moderate right, marked left ?? foramen narrowing. Mild diffuse disc bulging without disc height reduction. ?? Mild degenerative facet arthropathy, left greater than right. ?? C6-C7: No significant central canal narrowing. Moderate-marked foramen ?? narrowing bilaterally. Mild diffuse disc bulging and moderate disc height ?? reduction. Uncovertebral joint spurring and mild degenerative facet ?? arthropathy ?? bilaterally. ?? C7-T1:. Mild central canal narrowing. Moderate marked foramen narrowing ?? bilaterally. Mild diffuse disc bulging without disc height reduction. ?? Uncovertebral joint spurring and degenerative facet arthropathy. ? MR/MR cervical spine wo/w con ?? IMPRESSION: ? 1. Marked central canal narrowing posterior to C3-4 extending to C4-5. ?? 2. Multilevel marked and moderate-marked foramen narrowing. ?? 3. Multilevel degenerative disc disease and degenerative facet arthropathy ?? accounting for above findings. ? Electronically authenticated by: SANDER ??FRANCISCO ?? Date: 06/24/2024 ??09:22 ? Dictated By: ?Zieber,Sander M.D. ? Signed By: ?06/24/24924 ? DD/ 1 ? TD/TT: ? Rfp Writer: Procedure Note Radiology, Radiologist, MD - 06/24/2024 The [place] [id number] Magnetic Resonance Report Signed Patient: BEE STARR EMR#: [id number] : 1965Acct:[id number] Age/Sex: 58 / MADM Date: 06/23/24 Loc: MRI Attending Dr: Savita Montes De Oca MANAGER CLEANING Ordering Physician: Montes De Oca,Savita MANAGER CLEANING Date of Service: 06/23/24 Procedure(s): MR cervical spine wo/w con Accession Number(s): [id number] cc: Savita Montes De Oca NP; CRIS SINGH [address] [address] Patient Name: BEE STARR MRN: [id number] date: 1965 Sex: M Assigned Patient Location: MRI Current Patient Location: Accession/Order Number: [id number] Exam Date: 06/23/2024 12:30 Report Date: 06/24/2024 [...] accounting for above findings. Electronically authenticated by: SANDER PARSONS Date: 06/24/2024 09:22 Dictated By: Sander Parsons M.D. Signed By:06/24/24924 DD/ 1 TD/TT: Rfp Writer: Authorizing ProviderResult TypeResult StatusSaragunner Montes De Oca NPCLINISYNC IMAGING Final Result documented in this encounter Visit Diagnoses Not on filedocumented in this encounter Care Teams Team MemberRelationshipSpecialtyStart DateEnd Date Cris Singh MD [address] [place] [address] PCP - GeneralInternal Medicine01/04/24documented as of this encounter
--- OUTSIDE RECORDS SUMMARY | 2025-06-12 08:13 | XMS_ITS | Encounter Summary ---
Author Organization [facility] Address [id number] [address] [place] [address] Care Team Providers Care Ballistics Laboratory Gunsmith Name Role Phone Rogers Geller DO Primary Care Provider [phone] Reason for Visit * ReasonCommentsMed Refill Encounter Details DateTypeDepartmentCare Team (Latest Contact Info)Ysnybokdecd95/07/2025Refill [facility] Internal Medicine - Family Medicine [address] [place] [phone] Rogers Geller DO [address] [place] [address] Social History Tobacco UseTypesPacks/DayYears UsedDateSmoking Tobacco: Every TjfLxdqewbwbb765 Smokeless Tobacco: NeverAlcohol UseStandard Drinks/WeekCommentsNot Currently2 (1 standard drink = 0.6 oz pure alcohol)once a whileSocial Connection and Isolation PanelAnswerDate RecordedIn a typical week, how many times do you talk on the phone with family, friends, or neighbors?Three times a week04/23/2020How often do you get together with friends or relatives?Three times a week04/23/2020How often do you attend advent or zoroastrian services?Never04/23/2020Do you belong to any clubs or organizations such as advent groups, unions, fraternal or athletic groups, or school groups?No04/23/2020How often do you attend meetings of the clubs or organizations you belong to?Never04/23/2020Are you , , , , never , or living with a partner?Never 04/23/2020Overall Financial Resource Strain (CARDIA)AnswerDate RecordedHow hard is it for you to pay for the very basics like food, housing, medical care, and heating?Somewhat hard04/23/2020PHQ-2AnswerDate RecordedTotal Owrkq873 PRAPARE - TransportationAnswerDate RecordedIn the past 12 months, has lack of transportation kept you from medical appointments or from getting medications?No 04/23/2020In the past 12 months, has lack of transportation kept you from meetings, work, or from getting things needed for daily living?No04/23/2020 ChildcareAnswerDate RecordedDo problems getting child abuse worker make it difficult for you to work or study?No10/16/2020mploymentAnswerDate RecordedDo you need help finding a local career center and/or a training program?No10/16/2020Hunger ScreeningAnswerDate RecordedWithin the past 12 months we worried whether our food would run out before we got money to buy more.Sometimes True02/22/2025 Within the past 12 months the food we bought just didn't last and we didn't have money to get more.Sometimes True02/22/2025Purpose - LifeAnswerDate RecordedI have a purpose and direction in my life.Agree10/16/2020ex and Gender InformationValueDate RecordedSex Assigned at BirthNot on fileLegal SexMale 03/08/2015 12:07 PM EDTGender IdentityNot on fileSexual OrientationNot on file documented as of this encounter Plan of Treatment Not on file documented as of this encounter Goals GoalPatient Goal TypeAssociated ProblemsRecent ProgressPatient-Stated?Author home Jenny Saenz RN Note: Evaluation of progress towards goal: patient anticipates discharge home with home care at this time Patient is planning to transition to inpatient rehab Rae Moore LSW Note: Evaluation of progress towards goal: Patient is planning to transition to inpatient rehab. documented as of this encounter Visit Diagnoses Not on filedocumented in this encounter Additional Health Concerns AssessmentNoted TimePHQ-9 Depression Total Score: 6002/22/2025 2:44 PM EDT documented as of this encounter Care Teams Team MemberRelationshipSpecialtyStart DateEnd Date Rogers Geller DO [address] [place] [address] PCP - GeneralInternal Medicine12/07/23documented as of this encounter
--- OUTSIDE RECORDS SUMMARY | 2025-06-12 08:14 | XMS_ITS | Encounter Summary ---
Author Organization [facility] Address [id number] [address] [place] [address] Care Team Providers Care Mutual Fund Manager Name Role Phone Rogers Geller DO Primary Care Provider [phone] Encounter Details DateTypeDepartmentCare Team (Latest Contact Info)Cxynvehzbax86/05/2025Results Follow-Up [facility] Internal Medicine - Family Medicine [address] [place] [address] Rogers Geller DO [address] [place] [address] Consult Occupational Therapy- eval/treat Social History Tobacco UseTypesPacks/DayYears UsedDateSmoking Tobacco: Every IkqUgxwkhfyyq411 Smokeless Tobacco: NeverAlcohol UseStandard Drinks/WeekCommentsNot Currently2 (1 standard drink = 0.6 oz pure alcohol)once a whileSocial Connection and Isolation PanelAnswerDate RecordedIn a typical week, how many times do you talk on the phone with family, friends, or neighbors?Three times a week04/23/2020How often do you get together with friends or relatives?Three times a week04/23/2020How often do you attend congregational or yazidi services?Never04/23/2020Do you belong to any clubs or organizations such as congregational groups, unions, fraternal or athletic groups, or school groups?No04/23/2020How often do you attend meetings of the clubs or organizations you belong to?Never04/23/2020Are you , , , , never , or living with a partner?Never 04/23/2020Overall Financial Resource Strain (CARDIA)AnswerDate RecordedHow hard is it for you to pay for the very basics like food, housing, medical care, and heating?Somewhat hard04/23/2020PHQ-2AnswerDate RecordedTotal Yhvpo372 PRAPARE - TransportationAnswerDate RecordedIn the past 12 months, has lack of transportation kept you from medical appointments or from getting medications?No 04/23/2020In the past 12 months, has lack of transportation kept you from meetings, work, or from getting things needed for daily living?No04/23/2020 ChildcareAnswerDate RecordedDo problems getting child care assistant make it difficult for you to work [...] DateEnd Date Rogers Geller DO [address] [place] [address] PCP - GeneralInternal Medicine12/07/23documented as of this encounter
--- OUTSIDE RECORDS SUMMARY | 2025-06-12 08:14 | XMS_ITS | Clinical Summary ---
Author Organization [facility] Address [address] [place] [address] Care Team Providers Care Manager Community Development Name Role Phone Rogers Geller MD Primary Care Provider [phone] Allergies No known active allergies Medications MedicationSigDispense QuantityRefillsLast FilledStart DateEnd DateStatus atorvastatin (Lipitor) 40 MG tablet Take 40 mg by mouth DailyActive cyanocobalamin (Vitamin B-12) 1000 MCG tablet Take 1,000 mcg by mouth in the morning.12/08/2023ctive meloxicam (Mobic) 15 MG tablet Take 15 mg by mouth in the morning.12/29/2023ctive acetaminophen (Tylenol) 500 MG tablet Take 500 mg by mouth every 6 (six) hours if yrohnh0512/29/2023ctive latanoprost (Xalatan) 0.005 % ophthalmic solution INSTILL ONE DROP IN EACH EYE BEFORE BED02/17/2024ctive pregabalin (Lyrica) 75 MG capsule Take 75 mg by mouth in the morning and 75 mg in the evening and 75 mg before bedtime.Active HYDROcodone-acetaminophen (Delta) 7.5-325 MG tablet Take 1 tablet by mouth 2 (two) times a day as tzdrpv6007/31/2024ctive buPROPion XL (Wellbutrin XL) 150 MG 24 hr tablet Take 150 mg by mouth in the morning.Active naloxone (Narcan) 4 mg/0.1 mL nasal spray 07/14/2024ctive methocarbamol (Robaxin) 750 MG tablet Take 750 mg by mouth in the morning and 750 mg at noon and 750 mg in the evening and 750 mg before bedtime.Active topiramate 50 MG tablet TAKE 1 TABLET (50 MG TOTAL) BY MOUTH IN THE EVENING.Active Active Problems ProblemNoted DateDiagnosed DateTBI (traumatic brain injury)07/15/2024Current oczgjb9508/21/2022iverticulitis of colon with ppegysbwxsm22/19/2023Essential ssutjjrcybft43/19/6122Asyparehxiaeq81/19/9806Eztpbnuzmmzthj54/19/2023Hypokalemia 08/21/20221130Jsdlhqtkcn22/19/5452Mnuuxdd22/19/2023Well adult health check08/21/2022 Acute blood loss ubaiel5506/29/2022Multiple fractures of ribs, left side, initial encounter for closed uglrrbbb26/27/2022ropharyngeal hvoqlgxoy69/27/2022Urinary glhqmhcyc00/27/3834Jdsa51/17/2022History of colostomy csfrfdyy12/16/2021 Perforated mrgmrspxsedd34/21/2020 Encounters DateTypeDepartmentCare IkiaOqywmwnovan23/04/2025 3:40 PM EDTProcedure Visit [facility] [address] [facility] [address] [place] [address] Rogelio Kirk DPM Hav (hallux abducto valgus), left (Primary Dx); Pain due to onychomycosis of toenails of both feet; Acquired deformity of left toe04/06/2025amboo flowsheet [facility] [address] [place] [address] [place] [address] Rogelio Kirk DPM 04/06/20252434Nmhlfr82/28/2025 4:40 PM EDTOffice Visit [facility] [address] [facility] [address] [place] [address] Rogelio Kirk DPM Acquired deformity of left toe (Primary Dx)03/30/2025amboo flowsheet [facility] [address] [facility] [address] [place] [address] Rogelio Kirk DPM 03/30/20258976Vncabs81/14/2025 4:20 PM EDTOffice Visit [facility] [address] [facility] [address] [place] [address] Rogelio Kirk DPM Acquired deformity of left toe (Primary Dx)03/16/2025amboo flowsheet [facility] [address] [facility] [address] [place] [address] Rogelio Kirk DPM 03/16/2025Travelfrom Last 3 Months Social History Tobacco UseTypesPacks/DayYears UsedDateSmoking Tobacco: Every DayCigarettes Smokeless Tobacco: Never Tobacco Cessation:Ready to Q uit: Not Asked; Counseling Given: Yes Alcohol UseStandard Drinks/WeekCommentsNot Currently0 (1 standard drink = 0.6 oz pure alcohol)Sex and Gender InformationValueDate RecordedSex Assigned at Not on fileLegal LccVajy5110/15/2022 10:13 PM EDTGender IdentityNot on fileSexual OrientationNot on file Last Filed Vital Signs Vital SignReadingTime TakenCommentsBlood Deekvpfk123/8002 3:41 PM EST Ifngc9324/24/2025 3:41 PM ESTTemperature--Respiratory Dtjc5754 2:55 PM EDTOxygen Rheycqpkor46%09/26/2024 3:41 PM ESTInhaled Oxygen Concentration-- Bvidmg02.2 kg (190 lb)04/06/2025 2:55 PM FTATjahzq937.8 cm (5' 10 )04/06/2025 2:55 PM EDTBody Mass Index27.2609 2:55 PM EDT Plan of Treatment DateTypeDepartmentCare Team (Latest Contact Info)Gocxvaeizjf70/20/2025 3:00 PM ESTProcedure Visit [facility] [address] [facility] [address] [place] [address] Rogelio Kirk DPM [address] [facility] [address] [place] [address] Health MaintenanceDue DateLast DoneCommentsCT Zezytlmmphcm69/27/1967Colonoscopy 1966Colorectal Cancer Raksxmnxv84/27/1967FIT-DNA1966FIT1966 FOBT1966 7056Yoqmhzlmvsiaa95/27/1967COVID-19 Vaccine ( season) 512/04/2021, 06/19/2021Influenza Vaccine (#1)2025Pneumococcal Vaccine: Pediatrics (0 to 5 Years) and At-Risk Patients (6 to 64 Years)Aged Out No longer eligible based on patient's age to complete this topic Insurance Care Teams Team MemberRelationshipSpecialtyStart DateEnd Date Rogers Geller MD [address] [place] [address] PCP - GeneralInternal Medicine01/04/24
--- OUTSIDE RECORDS SUMMARY | 2025-06-12 08:14 | XMS_ITS | Encounter Summary ---
Author Organization [facility] Address [id number] [address] [place] [address] Care Team Providers Care Travograph Operator Name Role Phone Rogers Geller Primary Care Provider [phone] Encounter Details DateTypeDepartmentCare Team (Latest Contact Info)Yaxwikpnpsk56/05/2025Orders Only [facility] [address] [place] [address] Ref Prov, [place] [address] Social History Tobacco UseTypesPacks/DayYears UsedDateSmoking Tobacco: Every RobRkvgolndoc089 Smokeless Tobacco: NeverAlcohol UseStandard Drinks/WeekCommentsNot Currently2 (1 standard drink = 0.6 oz pure alcohol)once a whileSocial Connection and Isolation PanelAnswerDate RecordedIn a typical week, how many times do you talk on the phone with family, friends, or neighbors?Three times a week04/23/2020How often do you get together with friends or relatives?Three times a week04/23/2020How often do you attend congregational or shinto services?Never04/23/2020Do you belong to any clubs or [...] housing, medical care, and heating?Somewhat hard04/23/2020PHQ-2AnswerDate RecordedTotal Bjaor988 PRAPARE - TransportationAnswerDate RecordedIn the past 12 months, has lack of transportation kept you from medical appointments or from getting medications?No 04/23/2020In the past 12 months, has lack of transportation kept you from meetings, work, or from getting things needed for daily living?No04/23/2020 ChildcareAnswerDate RecordedDo problems getting child support specialist make it difficult for you to work [...] as of this encounter Procedures Procedure NamePriorityDate/TimeAssociated DiagnosisCommentsTFL OT CONSULT EVAL AND UQSZMFxrytep91/05/2025 7:43 AM EST documented in this encounter Results * Consult Occupational Therapy- eval/treat (06/07/2025 7:43 AM EST) Narrative Authorizing ProviderResult TypeResult StatusNot In System Ref ProvOT ORDERABLES Final ResultPerforming OrganizationAddressCity/State/ZIP CodePhone Number MANUALLY TRANSCRIBED RESULTS documented in this encounter Visit Diagnoses Not on filedocumented in this encounter Additional Health Concerns AssessmentNoted TimePHQ-9 Depression Total Score: 6002/22/2025 2:44 PM EDT documented as of this encounter Care Teams Team MemberRelationshipSpecialtyStart DateEnd Date Rogers Geller DO [address] [place] [address] PCP - GeneralInternal Medicine12/07/23documented as of this encounter
--- OUTSIDE RECORDS SUMMARY | 2025-06-12 08:15 | XMS_ITS | Clinical Summary ---
Author Organization [facility] Address [address] [place] [address] Care Team Providers Care Doctor Osteopathic Name Role Phone Cy Hernandez MD Primary Care Provider + Allergies No known active allergies Medications MedicationSigDispense QuantityRefillsLast FilledStart DateEnd DateStatus QUEtiapine (SEROquel) 100 mg tablet Indications:Medication refillGIVE 1 TABLET BY MOUTH AT BEDTIME 90 tablet ctive gabapentin (Neurontin) 400 mg capsule Indications:Medication refillGIVE 1 CAPSULE BY MOUTH THREE TIMES DAILY 90 capsule 8012/19/2022ctive tamsulosin (Flomax) 0.4 mg 24 hr capsule Indications:Benign prostatic hyperplasia with urinary frequencyTAKE 1 CAPSULE BY MOUTH AT BEDTIME * HOLD FOR SBP <90 90 capsule ctive atorvastatin (Lipitor) 40 mg tablet Indications:Mixed hyperlipidemiaTAKE 1 TABLET BY MOUTH EVERY DAY 90 tablet ctive lisinopril 10 mg tablet Indications:Essential hypertensionTAKE 1 TABLET BY MOUTH EVERY DAY IN THE MORNING 90 tablet 5Active amLODIPine (Norvasc) 2.5 mg tablet Indications:Essential hypertensionTAKE 1 TABLET BY MOUTH EVERY DAY IN THE EVENING 90 tablet 5Active Active Problems ProblemNoted DateDiagnosed DateCurrent cmrlqg0908/21/2022iverticulitis of colon with nlwbdmdukbj39/19/2023Well adult health check08/21/2022Essential zemsndsfyoxo08/19/0943Snsbxabqrlwlr05/19/5352Jsnjgfsxqmyxch75/19/2023Hypokalemia 08/21/20220279Aibludxwvt31/19/6900Dpzptnh15/19/2023Acute blood loss imrxci9906/29/2022 Multiple fractures of ribs, left side, initial encounter for closed fracture 2Oropharyngeal vqqzgcdbe56/27/2022Urinary jayakowcd08/27/2022Fall 06/19/2022History of colostomy zdceshta45/16/2021erforated diverticulum 04/23/2020 Immunizations ImmunizationAdministration DatesNext DueUnspecified Sars-Cov-2 Vaccination 07/11/2021,06/19/2021 Family History Medical HistoryRelationNameCommentsHeart diseaseFatherheart surgeryFather DiabetesMotherKidney failureMotherLung cancerMotherRelationNameStatusComments FatherMother Social History Tobacco UseTypesPacks/DayYears UsedDateSmoking Tobacco: Every GvnEljdnqojgm404 Passive Smoke Exposure: CurrentSmokeless Tobacco: Never Tobacco Cessation:Ready to Q uit: Not Asked; Counseling Given: Not Answered Alcohol UseStandard Drinks/WeekCommentsNot Currently0 (1 standard drink = 0.6 oz pure alcohol)Humiliation, Afraid, Rape, and Kick questionnaireAnswerDate RecordedWithin the last year, have you been afraid of your partner or ex-partner?Patient aupqysid05/19/2023Within the last year, have you been humiliated or emotionally abused in other ways by your partner or ex-partner? Patient ushopjzb87/19/2023Within the last year, have you been kicked, hit, slapped, or otherwise physically hurt by your partner or ex-partner?Patient vqevmgzp01/19/2023Within the last year, have you been raped or forced to have any kind of sexual activity by your partner or ex-partner?Patient declined 08/21/2022Social Connection and Isolation PanelAnswerDate RecordedIn a typical week, how many times do you talk on the phone with family, friends, or neighbors?More than three times a week08/21/2022How often do you get together with friends or relatives?More than three times a week08/21/2022How often do you attend judaism or rastafari services?Never3Do you belong to any clubs or organizations such as judaism groups, unions, fraternal or athletic groups, or school groups?No08/21/2022How often do you attend meetings of the clubs or organizations you belong to?Never08/21/2022re you , , , , never , or living with a partner?Gsexxxso65/19/2023UDIT-C AnswerDate RecordedQ1: How often do you have a drink containing alcohol?Never 08/21/2022Q2: How many drinks containing alcohol do you have on a typical day when you are drinking?Patient does not drink08/21/2022Q3: How often do you have six or more drinks on one occasion?Never08/21/2022Overall Financial Resource Strain (CARDIA)AnswerDate RecordedHow hard is it for you to pay for the very basics like food, housing, medical care, and heating?Not hard at all08/21/2022 PHQ-2AnswerDate RecordedPatient Health Questionnaire-2 Pydxm367[facility] [place] of Occupational Health - Occupational Stress QuestionnaireAnswerDate RecordedDo you feel stress - tense, restless, nervous, or anxious, or unable to sleep at night because yourmind is troubled all the time - these days?Not at all 08/21/2022Exercise Vital SignAnswerDate RecordedOn average, how many days per week do you engage in moderate to strenuous exercise (like a brisk walk)?5 days 08/21/2022On average, how many minutes do you engage in exercise at this level? 30 min08/21/2022Hunger Vital SignAnswerDate RecordedWithin the past 12 months, you worried that your food would run out before you got the money to buymore. Never true08/21/2022Within the past 12 months, the food you bought just didn't last and you didn't have money to get more.Never true08/21/2022RAPARE - TransportationAnswerDate RecordedIn the past 12 months, has lack of transportation kept you from medical appointments or from getting medications?No 08/21/2022In the past 12 months, has lack of transportation kept you from meetings, work, or from getting things needed for daily living?No08/21/2022 Housing Stability Vital SignAnswerDate RecordedIn the last 12 months, was there a time when you were not able to pay the mortgage or rent on time?No08/21/2022In the last 12 months, how many places have you lived?In the last 12 months, was there a time when you did not have a steady place to sleep or slept in ashelter (including now)?No08/21/2022UT Safety & EnvironmentAnswerDate RecordedFear of Current or Ex-PartnerNot on file09/24/2023Emotionally AbusedNot on file09/24/2023hysically AbusedNot on file09/24/2023Sexually AbusedNot on file09/24/2023hysically or Sexually AbusedNot on file09/24/2023Sex and Gender InformationValueDate RecordedSex Assigned at BirthNot on fileLegal SexMale 07/13/2022 1:50 AM ESTGender IdentityNot on fileSexual OrientationNot on file Last Filed Vital Signs Vital SignReadingTime TakenCommentsBlood Exbwetrn517/8004 4:04 PM EDT Rztmg3477 4:04 PM GHKObwcgobctfb52.3 ??C (99.1 ??F)11/27/2022 4:00 PM EDTRespiratory Cxju1517 4:00 PM EDTOxygen Argztiqzex60%11/27/2022 4:00 PM EDTInhaled Oxygen Concentration--Fxghjg71.3 kg (177 lb)11/27/2022 4:00 PM EDT Ywhbnz969.8 cm (5' 10 )11/27/2022 4:00 PM EDTBody Mass Index25.404 4:00 PM EDT Plan of Treatment Health MaintenanceDue DateLast DoneCommentsDepression Glyjosfjb35/27/1979 Hepatitis B Vaccines (1 of 3 - 19+ 3-dose series)1985Pneumococcal Vaccine: Pediatrics (0 to 5 Years) and At-Risk Patients (6 to 64 Years) (1 of 2 - PCV) 1985Adult Oadkodl9010/27/1988Zoster Vaccines (1 of 2)2016COVID-19 Vaccine (3 - 2024- season)512/04/2021, 06/19/2021Influenza Vaccine (#1)2025HIB VaccinesAged OutNo longer eligible based on patient's age to complete this topicHPV VaccinesAged OutNo longer eligible based on patient's age to complete this topicIPV VaccinesAged OutNo longer eligible based on patient's age to complete this topicMeningococcal B VaccineAged OutNo longer eligible based on patient's age to complete this topicMeningococcal VaccineAged OutNo longer eligible based on patient's age to complete this topicRotavirus Vaccines Aged OutNo longer eligible based on patient's age to complete this topic Insurance Care Teams Team MemberRelationshipSpecialtyStart DateEnd Date Cy Hernandez MD [address] [facility] [place] [address] PCP - GeneralInternal Medicine08/21/22
--- OUTSIDE RECORDS SUMMARY | 2025-06-12 08:15 | XMS_ITS | Patient Health Record ---
Author Organization [facility] Address [address] [place], [place] [address] Care Team Providers Care Visitor Use Assistant Name Role Phone Cy Nevarez Unavailable [phone] Allergies No Known Allergies Reason For Referral No Information Medications Medication SIG (Take, Route, Frequency, Duration) Notes Start Date End Date Status Lisinopril 10 MG 1 tablet Orally Once a day; Dur ation: 90 days ActiveAtorvastatin Calcium 40 MG1 tablet Orally Once a day; Duration: 90 days ActiveamLODIPine Besylate 2.5 MG1 tablet Orally Once a day; Duration: 90 days eveningActiveSpironolactone 25 MG1 tablet OrallyActive Social History Tobacco Use: Social History Observation Description Date Details (start date - stop date) Current Smoker NA - NA Sex Assigned At : Social History Observation Description Sex Assigned At Male Tobacco Use/Smoking Question Answer Notes Tobacco use: current smoker Problems Problem Type SNOMED Code ICD Code Onset Dates Problem Status W/U Status Risk Notes Problem Overweight (327049128) Overweight (E66.3) ActiveconfirmedProblemHypokalemia (91975626)Hypokalemia (E87.6)Activeconfirmed ProblemEssential hypertension (74752085)Essential hypertension (I10)Active confirmed Comment:K is low BP is still high will start him on Spironolactone 25 mg daily and Amlodipine 2.5 mg daily repeat labs in 1 week Mg supplement as well losing K through intestine also plays a role here FU in 2 weeks, ProblemHyperlipidemia (21082384)Hyperlipidemia (E78.5)Activeconfirmed Comment:Will start him on Statin,Story:ASCVD score 13.4%,ProblemDepression screening (422351028)Screening for depression (Z13.31)Activeconfirmed Description:Depression screenProblemCurrent smoker (99034914)Current smoker (F17.200)ActiveconfirmedProblemPurpura (93441428)Purpura (D69.2)Activeconfirmed Comment:only on right arm and mildly on the left forearm, no other parts of the body no Intestinal bleeding advised on taking Multivitamin will check vitamin C level Can also be due to ASA that he takes daily his risk score is more than 10% so can take it for primary prevention, but with increased risk of bleeding, ProblemFollow-up status (076316144)Follow up (Z09)ActiveconfirmedStory:see 05/06/21 message--REMA,ProblemAdult health examination (224340753)Encounter for wellness examination in adult (Z00.00)ActiveconfirmedProblemDiverticulitis of colon with perforation (74675190)Diverticulitis of colon with perforation (K57.20)Activeconfirmed Story:S/p appendectomy, sigmoid colectomy and end Colostomy Happened in Apr 2020, following up with Dr. Hicks [facility], ProblemHyperglycemia (85869551)Hyperglycemia (R73.9)ActiveconfirmedProblem Immunization education (415307487)Immunization counseling (Z71.85)Active confirmedStory:declined Pneumovax, Flu, Plan Of Treatment No Information Insurance Providers Payer Name Payer Address Payer Phone Subscriber Number Group Number Insured Name Patient Relationship to Insured Coverage Start Date Coverage End Date [facility] [address] [place], [place] [id number] Maxwell Gonsalez Self - patient is the insured [address] [facility] after [facility] [address] [place], [place] [id number], DouglasSelf - patient is the [id number] 2020 Medical (General) History Medical History History ICD Code Hyperlipidemia, COMMENTS: ASCVD score 13 .4% Immunization counseling, declined Pneumovax, FluOverweightSurgical History Surgery Date(Month/Year) cheekbone repair Tonsillectomy and adenoidectomy
--- OUTSIDE RECORDS SUMMARY | 2025-06-12 08:15 | XMS_ITS | Clinical Summary ---
Author Organization [facility] tem Address [id number] [address] [place] [address] Care Team Providers Care Hand Embroiderer Name Role Phone Rogers Geller DO Primary Care Provider Allergies No known active allergies Medications MedicationSigDispense QuantityRefillsLast FilledStart DateEnd DateStatus latanoprost (XALATAN) 0.005 % ophthalmic solution Indications:Glaucoma of both eyes, unspecified glaucoma typeAdminister 1 drop to both eyes nightly.4Active oxyCODONE (ROXICODONE) 5 mg immediate release tablet Indications: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TAKE 1 TABLET BY MOUTH EVERY 6 HOURS NEEDED FOR PAIN FOR UP TO 7 DAYS. FOR PAIN.5Active pregabalin (LYRICA) 200 mg capsule Take 1 capsule (200 mg total) by mouth.5Active methocarbamoL (ROBAXIN) 750 mg tablet Take 1 tablet (750 mg total) by mouth in the morning and 1 tablet (750 mg total) at noon and 1 tablet (750 mg total) in the evening and 1 tablet (750 mg total) before bedtime.Active naloxone (NARCAN) 4 mg/actuation spray,non-aerosol nasal spray Administer 1 spray (4 mg total) into alternating nostrils as needed for opioid reversal.Active cyanocobalamin 1000 MCG tablet Take 1 tablet (1,000 mcg total) by mouth. TAKE 1 TABLET (1,000 MCG TOTAL) BY MOUTH IN THE DJPPSZG91/20/2025Active buPROPion XL (WELLBUTRIN XL) 150 mg 24 hr tablet Indications:Tobacco abuseTake 1 tablet (150 mg total) by mouth every morning. 90 tablet 5Active topiramate (TOPAMAX) 50 mg tablet Indications:Intractable chronic post-traumatic headacheTake 1 tablet (50 mg total) by mouth in the evening. 90 tablet 5Active meloxicam (MOBIC) 15 mg tablet Indications:Localized osteoarthritis of lumbar spineTake 1 tablet (15 mg total) by mouth in the morning. TAKE 1 TABLET (15 MG TOTAL) BY MOUTH IN THE MORNING. 30 tablet 5Active atorvastatin (LIPITOR) 40 mg tablet Indications:hyperlipidemiaTAKE 1 TABLET (40 MG TOTAL) BY MOUTH IN THE MORNING. INDICATIONS: EXCESSIVE FAT IN THE BLOOD. 90 tablet 5Active atorvastatin (LIPITOR) 40 mg tablet Indications:hyperlipidemiaTake 1 tablet (40 mg total) by mouth in the morning. Indications: excessive fat in the blood. 90 tablet Discontinued Active Problems ProblemNoted DateDiagnosed OyiqCkjfdxaarp14/27/2024TBI (traumatic brain injury) 02/15/2024Oropharyngeal efypjgzbv71/27/2022cute blood loss ltungs1306/29/2022 Multiple fractures of ribs, left side, initial encounter for closed fracture 06/29/2022Urinary emqyljxme17/27/2022History of colostomy ucpqaefj90/16/2021 Perforated vgqmnuvjvcyk19/21/2020 Encounters DateTypeDepartmentCare NerkNbynfdxzslk76/07/2025Refill [facility] [address] [place] [id number] Rogers Geller, 06/07/2025Results Follow-Up [facility] [address] [place] [phone] Rogers Geller, Consult Occupational Therapy- eval/treat06/07/2025Orders Only [facility] [address] [place] [phone] Ref Prov, Not In System 05/04/2025Refill [facility] [address] [place] [address] Wild Holliday CMA Localized osteoarthritis of lumbar spine03/14/[facility] [address] [place] [address] Rogers Geller, DO Localized osteoarthritis of lumbar spinefrom Last 3 Months Immunizations No known immunizations Family History Medical HistoryRelationNameCommentsCancerBrotherHeart diseaseBrotherKidney diseaseBrotherCoronary artery diseaseFatherHeart diseaseFatherHeart failure FatherKidney diseaseFatherDiabetesMotherKidney diseaseMotherLung cancerMother DiabetesSonRelationNameStatusCommentsBrotherAliveFatherAliveMotherDeceasedSon Social History Tobacco UseTypesPacks/DayYears UsedDateSmoking Tobacco: Every FwrNwtstyjzaf417 Smokeless Tobacco: Never Tobacco Cessation:Ready to Q uit: Not Asked; Counseling Given: Not Answered Alcohol UseStandard Drinks/WeekCommentsNot Currently2 (1 standard drink = 0.6 oz pure alcohol)once a whileSocial Connection and Isolation PanelAnswerDate RecordedIn a typical week, how many times do you talk on the phone with family, friends, or neighbors?Three times a week04/23/2020How often do you get together with friends or relatives?Three times a week04/23/2020How often do you attend christianity or temple services?Never04/23/2020Do you belong to any clubs or organizations such as christianity groups, unions, fraternal or athletic groups, or school groups?No04/23/2020How often do you attend meetings of the clubs or organizations you belong to?Never04/23/2020Are you , , , , never , or living with a partner?Never exyxqou7504/23/2020 Overall Financial Resource Strain (CARDIA)AnswerDate RecordedHow hard is it for you to pay for the very basics like food, housing, medical care, and heating? 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 [...] Last Filed Vital Signs Vital SignReadingTime TakenCommentsBlood Gizqulxm609/8007 3:10 PM EDT Wksfp233002/22/2025 2:45 PM JHSWuhvttytggo31.7 ??C (98 ??F)02/22/2025 2:45 PM EDT Respiratory Odkm832002/22/2025 2:45 PM EDTOxygen Aikqsztbov24%02/22/2025 2:45 PM EDTInhaled Oxygen Concentration--Obqxdm96.7 kg (197 lb 12.8 oz)02/22/2025 2:45 PM HSIUzbrts503.3 cm (5' 10.98 )02/22/2025 2:45 PM EDTBody Mass Index27.6 02/22/2025 2:45 PM EDT Plan of Treatment Health MaintenanceDue DateLast DoneCommentsTobacco Fspqiqqemh29/27/1967Adult BMI Follow Up Plan1984DTaP,Tdap and Td Vaccines (1 - Tdap)1985Zoster (Shingles) Vaccine (1 of 2)2016COVID-19 Vaccine (2024- season) 2021, 06/19/2021Influenza Kfrtqjo4004/03/2025dult BMI Screening /Depression Honzoewyd24/Tobacco Screening Goals GoalPatient Goal TypeAssociated ProblemsRecent ProgressPatient-Stated?Author home Jenny Saenz RN Note: Evaluation of progress towards goal: patient anticipates discharge home with home care at this time Patient is planning to transition to inpatient rehab Rae Moore LSW Note: Evaluation of progress towards goal: Patient is planning to transition to inpatient rehab. Medical Devices Not on file Procedures Procedure NamePriorityDate/TimeAssociated DiagnosisCommentsTFL OT CONSULT EVAL AND PAGLGNnmjbxs49/05/2025 7:43 AM EST from Last 3 Months Results * Consult Occupational Therapy- eval/treat (06/07/2025 7:43 AM EST) Narrative Authorizing ProviderResult TypeResult StatusNot In System Ref ProvOT ORDERABLES Final ResultPerforming OrganizationAddressCity/State/ZIP CodePhone Number MANUALLY TRANSCRIBED RESULTS from Last 3 Months Insurance Advance Directives * Full Code (Latest Code Status on File) Date ActivatedDate DikdmntvmqsQailfgeb52/17/2022 6:51 PM07/12/2022 12:51 PM * Full Code Date ActivatedDate InactivatedComments10/16/2020 11:21 AM2020 3:58 PM * Full Code Date ActivatedDate InactivatedComments04/23/2020 2:03 AM04/27/2020 9:19 PM Care Teams Team MemberRelationshipSpecialtyStart DateEnd Date Rogers Geller DO [address] [phone] PCP - GeneralInternal Medicine12/07/23
--- OUTSIDE RECORDS SUMMARY | 2025-06-12 08:16 | XMS_ITS | CCD ---
Author Organization [facility] Care Team Providers Care [employer] Ho[employer] Trainer Name Role Phone ROXANE MITCHELL Admitting Unavailable [...] Care Provider UnavailDO Deanna Payne Attending Provider Cris Singh MD Primary Care Provider [phone] Cris Singh DO Primary Care Provider Cris Singh Primary Care Provider Kinza Caba DO Unavailable [phone] Dane CLARK, Lalitha Arango Attending Unavailable Dane CLARK, Angierius Arango Attending Unavailable Dane CLARK, Andrius Nba Attending Unavailable Dane CLARK, Lalitha Arango Attending Unavailable Cris Singh DO Primary Care Provider [phone] JUS WISDOM Admitting Unavailable JUS WISDOM Attending [...] Unavailable JUSTIN BOO Referring Unavailable YUHAS, CRIS FRANK Primary Care Unavailable BUTT, BILAL LAURA Referring Unavailable YUHAS, CRIS FRANK Primary Care Unavailable PACENTA, ERNIE Attending Unavailable BUTT, BILAL LAURA Referring Unavailable YUHAS, CRIS FRANK Primary Care Unavailable PACENTA, ERNIE Referring Unavailable YUHAS, CRIS FRANK Primary Care Unavailable BUTT, BILAL LAURA Attending Unavailable YUHAS, CRIS FRANK Primary Care Unavailable LOIS MEDEIROS Referring Unavailable YUHAS, CRIS FRANK Primary Care Unavailable PACENTA, ERNIE Attending Unavailable BIALASKIKINZA Referring Unavaila ble YUHAS, CRIS FRANK Primary Care Unavailable PACENTA, ERNIE Referring Unavailable YUHAS, CRSI FRANK Primary Care Unavailable BUTT, BILAL LAURA Attending Unavailable YUHAS, CRIS FRANK Primary Care Unavailable PACENTA, ERNIE Referring Unavailable YUHAS, CRIS FRANK Primary Care Unavailable BUTT, BILAL LAURA Attending Unavailable BUTT, BILAL LAURA Referring Unavailable YUHAS, CRIS FRANK Primary Care Unavailable BUTT, BILAL LAURA Referring Unavailable YUHAS, CRIS FRANK Primary Care Unavailable Reagan, DPAshley Simon Attending [...] A Attending Unavailable SAVITA ALCANTARA Attending Unavailable SAVTIA ALCANTARA Attending Unavailable DEANNA MEJIA Attending Unavailable Cris Singh MD Primary Care Provider Cris Singh DO Primary Care Provider Medications Current Medications MedicationDrug Class(es)DatesSig (Normalized)Sig (Original)acetaminophen 500 mg oral tablet (20 sources)Start: 11-18-2024 End: 63-45-9311wppm 2 tablets by mouth every eight hoursacetaminophen (TYLENOL EXTRA STRENGTH) 500 mg tablet Indications: Cervical spondylosis with myelopathy , Acute post-operative pain Take 2 tablets by mouth every 8 hours. 180 tablet 2 12/01/2024 03/01/2025 ActiveStart: 12-29-2023 End: 59-07-6370qkkp 1 tablet by mouth every six hours as neededacetaminophen (Tylenol) 500 MG tablet Take 500 mg by mouth every 6 (six) hours if needed 12/29/2023ctiveStart: 07-12-2022 End: 29-85-1855wmfr 2 tablets by mouth every six hours as needed for pain acetaminophen (TYLENOL EXTRA STRENGTH) 500 mg tablet Take 2 tablets (1,000 mg total) by mouth every6 (six) hours as needed for pain. 30 tablet 07/12/2022 12/07/2023 Discontinued (Therapy completed)acetaminophen 325 mg / HYDROcodone bitartrate 7.5 mg oral tablet (20 sources)Opioid AgonistStart: 07-31-2024 End: 35-65-9295nsmp 1 tablet by mouth twice daily as neededHYDROcodone- acetaminophen ([place]) 7.5-325 MG tablet Take 1 tablet by mouth 2 (two) times a day as needed 07/31/2024 ActiveStart: 07-31-2024 End: 06-81-2882ysoj 1 tablet by mouth onceHYDROcodone-Acetaminophen (NORCO) 7.5- 325 mg per tablet Take 1 tablet by mouth. 07/31/2024 12/14/2024 Discontinued acetaminophen 325 mg / oxyCODONE hydrochloride 5 mg oral tablet (3 sources)Opioid AgonistStart: 03-02-2025 End: 36-80-9822hqnb 1 tablet by mouth every eight hours for painoxyCODONE- acetaminophen (Percocet) 5-325 MG tablet Indications: Pain Take 1 tablet by mouth every 8(eight) hours if needed for severe pain for up to 5 days 15 tablet 03/08/2025 03/13/2025 ActiveamLODIPine 2.5 mg oral tablet (11 sources)Dihydropyridine Calcium Channel BlockerStart: 02-23-2024 End: 62-54-6934fall 1 tablet by mouth in the eveningamLODIPine (Norvasc) 2.5 MG tablet Take 1 tablet by mouth in the evening 02/23/2024 06/01/2024 Discontinued (Therapy completed) End: 50-47-7668yoss 1 tablet by mouth in the morningamLODIPine (NORVASC) 2.5 mg tablet Indications: hypertension Take 1 tablet (2.5 mg total) by mouth in the morning. Indications: high blood pressure. evening. 12/07/2023 Discontinued (Side effects)atorvastatin 40 mg oral tablet (20 sources)HMG-CoA Reductase InhibitorStart: 12-13-2024 End: 29-88-9671rrhb 1 tablet by mouth in the morningatorvastatin (LIPITOR) 40 mg tablet Indications: hyperlipidemia TAKE 1 TABLET (40 MG TOTAL) BY MOUTH IN THE MORNING. INDICATIONS: EXCESSIVE FAT IN THE BLOOD. 90 tablet 1 06/09/2025 Active Start: 12-29-2023 End: 55-95-0534kuoa 0.5 tablet by mouth in the morningatorvastatin (LIPITOR) 40 mg tablet Indications: hyperlipidemia Take 0.5 tablets (20 mg total) by mouth in the morning. Indications: excessive fat in the blood. 12/29/2023 12/13/2024 Discontinued (Reorder)Start: 05-08-2020 End: 75-88-2743nuxm 1 tablet by mouth in the morningatorvastatin (LIPITOR) 40 mg tablet Indications: hyperlipidemia Take 1 tablet (40 mg total) by mouth in the morning. Indications: excessive fat in the blood. 90 tablet 1 12/13/2024 Active 24 hr buPROPion hydrochloride 150 mg extended release oral tablet (20 sources)AminoketoneStart: 08-22-2024 End: 79-85-9167pyuh 1 tablet by mouth once daily in the morningbuPROPion XL (WELLBUTRIN XL) 150 mg 24 hr tablet Indications: Tobacco abuse Take 1 tablet (150 mg total) by mouth every morning. 90 tablet 1 02/22/2025 ActiveStart: 41-06-6023cwqx 1 tablet by mouth every twenty-four hoursbuPROPion XL (WELLBUTRIN XL) 150 mg 24 hr tablet Take 150 mg by mouth. 08/22/2024 Activeferrous sulfate (10 sources) End: 08-52-5300zpgq 1 tablet by mouth in the morningFerrous Sulfate (IRON PO) Take 1 tablet by mouth in the morning. 06/01/2024 Discontinued (Therapy co mpleted)take 1 tablet by mouth in the morningFerrous Sulfate (IRON PO) Take 1 tablet by mouth in the morning. Activegabapentin 300 mg oral capsule (16 sources)Anti-epileptic AgentStart: 01-18-2024 End: 09-56-5666ygfwraycmi (NEURONTIN) 300 mg capsule Take 1 capsule (300 mg total) by mouth. 03/24/2024 ActiveStart: 12-19-2022 End: 06-94-4057rerk 1 capsule by mouth three times dailygabapentin (NEURONTIN) 400 mg capsule Take 1 capsule (400 mg total) by mouth 3 (three) times a day. 12/19/2022 12/07/2023 Discontinued (Therapy completed)latanoprost 0.05 mg/ml ophthalmic solution (20 sources)Prostaglandin AnalogStart: 61-48-3247pfvz 1 drop(s) into the eye(s) once dailylatanoprost (XALATAN) 0.005 % ophthalmic solution Indications: Glaucoma of both eyes, unspecified glaucoma type Administer 1 drop to both eyes nightly. 03/08/2024 ActiveStart: 64-02-9750snorluamivr (Xalatan) 0.005 % ophthalmic solution INSTILL ONE DROP IN EACH EYE BEFORE BED 02/17/2024 Active lisinopril 10 mg oral tablet (18 sources)Angiotensin Converting Enzyme InhibitorStart: 70-71-8308ehcdfwdvqv (ZESTRIL) 10 mg tablet 01/16/2025 ActiveStart: 02-23-2024 End: 95-91-9404arvn 1 tablet by mouth in the morninglisinopril 10 MG tablet Take 10 mg by mouth in the morning. 02/23/2024 06/01/2024 Discontinued (Therapy completed)Start: 08-22-2020 End: 68-10-5451rcgq 10 mg by mouth once dailyLisinopril Active 10 MG PO Daily 30 August 22, 2020 1:00ammeloxicam 15 mg oral tablet (20 sources)Nonsteroidal Anti-inflammatory DrugStart: 12-29-2023 End: 68-70-3818hduh 1 tablet by mouth in the morning, then take 1 tablet by mouth in the morningmeloxicam (MOBIC) 15 mg tablet Indications: Localized osteoarthritis of lumbar spine Take 1 tablet (15 mg total) by mouth in the morning. TAKE 1 TABLET (15 MG TOTAL) BY MOUTH IN THE MORNING. 30 tablet 2 05/04/2025 Activemethocarbamol 750 mg oral tablet (20 sources)Muscle RelaxantStart: 12-27-2024 End: 94-09-8678udxm 1 tablet by mouth four times dailymethocarbamol (ROBAXIN) 750 mg tablet Take 1 tablet by mouth four times daily. 120 tablet 2 12/27/2024 03/27/2025 ActiveStart: 11-18-2024 End: 01-92-7640bnca 1 tablet by mouth four times daily in the evening methocarbamol (ROBAXIN) 750 mg tablet Take 1 tablet by mouth four times daily. 120 tablet 11/18/2024 2:57 PM EDT 11/18/2024 12/18/2024 Activenaloxone hydrochloride 40 mg/ml nasal spray (14 sources)Opioid AntagonistStart: 51-99-7793yfjxqdtz (Narcan) 4 mg/0.1 mL nasal spray 07/14/2024 Activenaloxone 4 mg/actuation nasal spray (NARCAN) (20 sources)Start: 86-18-1043tvtjrrhz 4 mg/actuation nasal spray (NARCAN) 07/14/2024 ActiveStart: 64-53-7972bpgoedxt 4 mg/actuation nasal spray (NARCAN) PLEASE SEE ATTACHED FOR DETAILED DIRECTIONS 07/14/2024ctiveondansetron 4 mg disintegrating oral tablet (2 sources)Serotonin-3 Receptor AntagonistStart: 11-18-2024 End: 51-88-0893hgft 1 tablet by mouth every eight hours as neededondansetron orally disintegrating (ZOFRAN ODT) 4 mg disintegrating tablet Take 1 tablet by mouth every 8 hours as needed for nausea/vomiting for up to 7 days. 20 tablet 11/18/2024 2:57 PM EDT 11/18/2024 11/25/2024 ActiveoxyCODONE hydrochloride 5 mg oral tablet (19 sources)Opioid AgonistStart: 12-01-2024 End: 12-21-4529thxd 1 tablet by mouth every six hours as needed for pain oxyCODONE (ROXICODONE) 5 mg immediate release tablet Indications: 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 TAKE 1 TABLET BY MOUTH EVERY 6 HOURS NEEDED FOR PAIN FOR UP TO 7 DAYS. FOR PAIN. 12/01/2024 ActiveStart: 12-01-2024 End: 52-33-2648ixzl 1 tablet by mouth every eight hours as needed for pain oxyCODONE IR (ROXICODONE) 5 mg immediate release tablet Indications: Post- operative pain Take 1 tablet by mouth every 8 hours as needed for pain for up to 7 days. 21 tablet 01/20/2025 01/27/2025 ActiveStart: 11-18-2024 End: 74-23-5990qjok 1 tablet by mouth every six hours as needed for pain oxyCODONE IR (ROXICODONE) 5 mg immediate release tablet Indications: Cervical spondylosis with myelopathy Take 1 tablet by mouth every 6 hours as needed for pain for up to 10 days. for pain. 40 tablet 11/18/2024 2:57 PM EDT 11/18/2024 11/28/2024 Activepolyethylene glycol 3350 07347 mg powder for oral solution (5 sources)Osmotic LaxativeStart: 11-18-2024 End: 22-77-8577jtfkzyofqcfw glycol 3350 17 gram/dose powder Take 17 g by mouth once daily. Dissolve dose in 4 - 8 ounces of liquid and take as directed. 476 g 11/18/2024 2:57 PM EDT 11/18/2024 12/18/2024 Activepregabalin 200 mg oral capsule (20 sources)Start: 08-61-3383vxamtsekub (LYRICA) 200 mg capsule Take 1 capsule (200 mg total) by mouth. 12/27/2024 ActiveStart: 05-16-2024 End: 18-09-5128hufmjivfml (LYRICA) 50 mg capsule Has not started it. 05/16/2024 12/13/2024 Discontinued (Dose adjustment) End: 11-91-7570ujms 1 capsule by mouth in the morning, then take 1 capsule by mouth in the evening, then take 1 capsule by mouth at bedtimepregabalin (Lyrica) 75 MG capsule Take 75 mg by mouth in the morning and 75 mg in the evening and 75 mg before bedtime. Activethiamine 100 mg oral tablet (2 sources)Start: 08-22-2020 End: 68-77-8419uxiq 100 mg by mouth twice dailyThiamine Hcl (Vitamin B1) Active 100 MG PO Twice daily 60 August 22, 2020 1:00amtopiramate 50 mg oral tablet (20 sources)Start: 03-08-2024 End: 92-32-4013texg 1 tablet by mouth in the eveningtopiramate (TOPAMAX) 50 mg tablet Indications: Intractable chronic post-traumatic headache Take 1 tablet (50 mg total) by mouth in the evening. 90 tablet 1 02/22/2025 ActiveStart: 12-24-2022 End: 50-36-0453fjhv 1 tablet by mouth in the morning, then take 1 tablet by mouth at bedtimetopiramate (TOPAMAX) 25 mg tablet Take 1 tablet (25 mg total) by mouth in the morning and 1 tablet (25 mg total) before bedtime. 60 tablet 2 12/24/2022 12/07/2023 Discontinued (Therapy completed)24 hr venlafaxine 37.5 mg extended release oral capsule (20 sources)Serotonin and Norepinephrine Reuptake InhibitorStart: 08-09-2024 End: 89-80-9204mvby 1 capsule by mouth every twenty-four hoursvenlafaxine ER (EFFEXOR XR) 37.5 mg 24 hr capsule Take 37.5 mg by mouth. 08/09/2024 Active vitamin b12 1 mg oral tablet (20 sources)Vitamin X95Ybbwg: 45-89-1495zyyafvafypqsof 1000 MCG tablet Take 1 tablet (1,000 mcg total) by mouth. TAKE 1 TABLET (1,000 MCG TOTAL) BY MOUTH IN THE MORNING 02/19/2025 ActiveStart: 12-08-2023 End: 98-35-8137wsaorisazmvhbw 1000 MCG tablet Take 1 tablet (1,000 mcg total) by mouth. TAKE 1 TABLET (1,000 MCG TOTAL) BY MOUTH IN THE MORNING 02/19/2025 Active Completed/Discontinued Medications MedicationDrug Class(es)DatesSig (Normalized)Sig (Original)acetaminophen 325 mg / butalbital 50 mg / caffeine 40 mg oral tablet (1 source)Barbiturate, Central Nervous System Stimulant, MethylxanthineStart: 12-24-2022 End: 28-51-1189czuc 1 tablet by mouth every six hours as needed for headache soonxkhinr-xwghfgrswatat-nzqa (FIORICET, ESGIC) 50-325-40 mg per tablet Take 1 tablet by mouth every 6 (six) hours as needed for headaches. 30 tablet 1 12/24/2022 12/07/2023 Discontinued (Therapy completed)ibuprofen 200 mg oral tablet (1 source)Nonsteroidal Anti-inflammatory Drug End: 34-24-8505omjo 4 tablets by mouth every eight hours as needed for pain ibuprofen (ADVIL,MOTRIN) 200 mg tablet Take 4 tablets (800 mg total) by mouth every 8 (eight) hoursas needed for pain. 12/07/2023 Discontinued (Therapy completed)lidocaine 0.05 mg/mg medicated patch (1 source)Antiarrhythmic, Amide Local AnestheticStart: 07-12-2022 End: 03-88-7114jmimz 1 dose transdermal route every twelve hours in the morning lidocaine (LIDODERM) 5 % Place 1 patch on the skin in the morning. Remove & Discard patch within 12 hours or as directed by . 30 patch 07/12/2022 12/07/2023 Discontinued (Therapy completed)cggbrcpy-zizs-SP-calcium &mins (THERAGRAN-M) 9 mg iron-400 mcg tablet (11 sources) End: 88-76-2785muyofcrc-ijzu-MX-zbaluko &mins (THERAGRAN-M) 9 mg iron-400 mcg tablet Take 1 tablet by mouth inthe morning. 05/19/2024 Discontinued (Therapy completed)qmrbeofe-kfpc-NB-calcium &mins (THERAGRAN-M) 9 mg iron-400 mcg tablet Take 1 tablet by mouth inthe morning. Activenaloxone (NARCAN) 4 mg/actuation spray,non-aerosol nasal spray (8 sources)Start: 07-14-2024 End: 96-02-2253kskaqyia (NARCAN) 4 mg/actuation spray,non-aerosol nasal spray Indications: 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 07/14/2024 01/04/2025 Discontinued (Patient Stopped On Own)Start: 09-53-7271cymbldwg (NARCAN) 4 mg/actuation spray,non-aerosol nasal spray Indications: 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 07/14/2024 Activenaloxone (NARCAN) 4 mg/actuation spray,non-aerosol nasal spray Administer 1 spray (4 mg total) intoalternating nostrils as needed for opioid reversal. ActiveQUEtiapine 100 mg oral tablet (1 source)Atypical AntipsychoticStart: 11-17-2022 End: 73-89-6381rvdd 1 tablet by mouth once dailyQUEtiapine (SEROquel) 100 mg tablet Take 1 tablet (100 mg total) by mouth nightly. 11/17/2022 12/07/2023 Discontinued (Therapy completed)tamsulosin hydrochloride 0.4 mg oral capsule (11 sources)alpha-Adrenergic BlockerStart: 11-17-2022 End: 40-42-2119lunl 1 capsule by mouth once dailytamsulosin (FLOMAX) 0.4 mg capsule Take 1 capsule (0.4 mg total) by mouth nightly. 11/17/2022 12/07/2023 Discontinued (Side effects)traMADol hydrochloride 50 mg oral tablet (17 sources)Opioid AgonistStart: 06-18-2024 End: 57-87-8783blvg 1 tablet by mouth twice daily as needed for painULTRAM 50 mg tablet Indications: Intractable chronic post-traumatic headache Take 1 tablet (50 mg total) by mouth 2 (two) times a day as needed for pain. 30 tablet 06/18/2024 08/22/2024 Discontinued (Discontinued by another clinician)Start: 38-86-8007dclb 1 tablet by mouth twice daily as needed for painULTRAM 50 mg tablet Indications: Intractable chronic post-traumatic headache Take 1 tablet (50 mg total) by mouth 2 (two) times a day as needed for pain. 30 tablet 06/18/2024 ActiveStart: 05-09-2024 End: 04-76-7939vqmo 1 tablet by mouth twice daily as needed for paintraMADoL (ULTRAM) 50 mg tablet Indications: Localized osteoarthritis of lumbar spine Take 1 tablet (50 mg total) by mouth 2 (two) times a day as needed for pain (pain) for up to 15 days. 30 tablet 05/19/2024 06/03/2024 ActiveStart: 04-28-2024 End: 94-53-5485pjkh 1 tablet by mouth every six hours as neededULTRAM 50 mg tablet Take 1 tablet (50 mg total) by mouth every 6 (six) hours as needed. 04/28/2024 05/11/2024 Discontinued (Dose adjustment) Problems Active Problems Problem ClassificationProblemDateDocumented DateEpisodic/ChronicAbdominal pain (1 source)Abdominal pain; Translations: [Unspecified abdominal pain]07-15-2023 EpisodicAcquired foot deformities (7 sources)Hammer toe; Translations: [Other hammer toe(s) (acquired), left foot] Onset: 253786-88-8702GltplnvHlysdvbu foot deformities (10 sources)Acquired deformity of toe of left foot; Translations: [Acquired deformities of toe(s), unspecified,left foot]03-51-6658WnhknjaoFhdwcy (1 source)Unspecified asthma, uncomplicated; Translations: [UNSPECIFIED ASTHMA UNCOMPLICATED]Onset: 34-12-8918KyfafztFxpigac dysrhythmias (2 sources)Tachycardia, unspecified; Translations: [Tachycardia]Onset: 680174-72-1040WyrsyhveVnkixrlk (3 sources)Bilateral cataracts; Translations: [Unspecified cataract]Onset: 313511-80-0206UjiehwaIhhrfmckji associated with dizziness or vertigo (5 sources)Meniere's disease; Translations: [Meniere's disease, unspecified ear] Onset: 555385-34-1277SlriakcCmtbvaalyi associated with dizziness or vertigo (6 sources)Vertigo; Translations: [Dizziness and giddiness]35-58-3504Wyicgxdw Deficiency and other anemia (6 sources)Anemia; Translations: [Anemia, unspecified]14-26-6989Wrcibmao Deficiency and other anemia (1 source)Anemia, unspecified; Translations: [Anemia following surgery]Onset: 11-89-2086KfejjhbvJiqxjsosd of lipid metabolism (20 sources)Hyperlipidemia, unspecified; Translations: [Hyperlipidemia]Onset: 263508-52-3894YhgzswnNavnipdupaxvmo and diverticulitis (20 sources)Diverticulitis of colon with perforation; Translations: [Diverticulitis of large intestine with perforation and abscess without bleeding]Onset: 603958-32-5724FqklscxPdpkkzpzc hypertension (20 sources)Essential hypertension; Translations: [Essential (primary) hypertension]Onset: 954704-94-9519UwjyykcEwwddiud (5 sources)Bilateral glaucoma; Translations: [Unspecified glaucoma]Onset: 542799-39-1105YgwksmdBczebbcf; including migraine (14 sources)Intractable chronic headache following trauma; Translations: [Chronic post-traumatic headache, intractable]Onset: 667202-07-4858Okxewfl Headache; including migraine (1 source)Headache; including migraineOnset: 45-39-6938Afsgxsxzr (1 source)Nonalcoholic steatohepatitis (VIEIRA); Translations: [Nonalcoholic steatohepatitis (VIEIRA)]Onset: 80-82-6118IxhdwbwPwjwdgvvkht of prostate (1 source)Benign prostatic hyperplasia; Translations: [Benign prostatic hyperplasia with lower urinary tract symptoms]20-07-1232GafgaalZvdpkxzjlleuu and screening for infectious disease (7 sources)Suspected carrier of methicillin resistant staphylococcus aureus; Translations: [Carrier or suspected carrier of Methicillin resistant Staphylococcus aureus]Onset: 116306-93-8385LvqzwgdsEkxu effects of cerebrovascular disease (3 sources)Acquired ataxia; 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]Onset: 528596-45-3924WefvntjAwfd disorders (20 sources)Depressive disorder; Translations: [Depression]Onset: 04-29-2024 94-61-0830RuovqfdKorgbzm (3 sources)Pain in toe; Translations: [Tinea unguium]67-72-4689FojwmwyoNevsm circulatory disease (1 source)Orthostatic hypotension; Translations: [Orthostatic hypotension]Onset: 23-08-3413DyxvmwmaZebhp ear and sense organ disorders (1 source)Sensorineural hearing loss, bilateral; Translations: [Sensorineural hearing loss, bilateral]44-36-2300TpdzjglMkqun ear and sense organ disorders (2 sources)Asymmetrical sensorineural hearing loss; Translations: [Sensorineural hearing loss, bilateral]06-03-1015IrfozbmUtrmn ear and sense organ disorders (3 sources)Bilateral tinnitus; Translations: [Tinnitus, bilateral]05-25-2024 EpisodicOther nervous system disorders (1 source)Carpal tunnel syndrome of right wrist; Translations: [Carpal tunnel syndrome, right upper limb]91-63-9846QvnndzbYhrey nervous system disorders (6 sources)Polyneuropathy; Translations: [Polyneuropathy, unspecified]05-12-2024 ChronicOther nervous system disorders (2 sources)Impairment of balance; Translations: [Other abnormalities of gait and mobility]51-52-4863XidfrnopUhvkn nervous system disorders (2 sources)Acute postoperative pain; Translations: [Other acute postprocedural pain]48-79-3472VjrlbojiIopis nervous system disorders (2 sources)Postoperative pain ; Translations: [Other acute postprocedural pain] 03-26-7887NtupfkwqGszdt non-traumatic joint disorders (6 sources)Chronic pain of right upper limb; Translations: [Pain in right shoulder]31-93-6592GjkwtzxnDtzwacua codes; unclassified (1 source)Alcoholism; Translations: [Alcohol use disorder]43-22-1727Jygyryvs Residual codes; unclassified (5 sources)Tobacco user; Translations: [Tobacco use]64-12-1929FhqlqcyhWiadzfcd codes; unclassified (1 source)History of cervical laminectomy; Translations: [Other specified postprocedural states]21-75-2442HmqpzgtzMjnxzxkb codes; unclassified (1 source)Other specified postprocedural states; Translations: [Other specified postprocedural states]Onset: 07-15-1421LhslhncaHybujrkchsr; intervertebral disc disorders; other back problems (20 sources)Degeneration of lumbosacral intervertebral disc; Translations: [Degeneration of intervertebral discof lumbosacral region with discogenic back pain and lower extremity pain]Onset: 186321-42-3345WhhwvnkYffuogeyswi; intervertebral disc disorders; other back problems (20 sources)Cervical radiculopathy; Translations: [Radiculopathy, cervical region]Onset: 944114-61-2022ZmddwepaJczjrtahc-sqjxcoi disorders (20 sources)Nicotine dependence, cigarettes, uncomplicated; Translations: [Smoker]Onset: 154707-81-1560UxshmkaZvrdlqy and intentional self-inflicted injury (1 source)Suicidal thoughts; Translations: [Suicidal ideations]07-15-2023 EpisodicUnclassified (2 sources)Chronic pain of right upper xbnb05-06-7384 Past or Other Problems Problem ClassificationProblemDateDocumented DateEpisodic/ChronicAcute bronchitis (1 source)Acute bronchitis, unspecified; Translations: [ACUTE BRONCHITIS UNSPECIFIED]Onset: 74-69-7662OdoiyilkVrtqw posthemorrhagic anemia (20 sources)Acute posthemorrhagic anemia; Translations: [Acute posthemorrhagic anemia]Onset: 309702-57-3956KvayacqbXikmnbephym and hemorrhagic disorders (20 sources)Purpuric rash; 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] Onset: 481543-25-5346KsgceyaeChmklhux mellitus without complication (20 sources)Hyperglycemia; Translations: [Hyperglycemia, unspecified]Onset: 591930-57-5029NcdgwyaaL Codes: Fall (20 sources)Fall; Translations: [Unspecified fall, initial encounter]Onset: 111821-70-7134WeiiuundWdonl and electrolyte disorders (20 sources)Hypokalemia; Translations: [Hypokalemia]Onset: EpisodicGenitourinary symptoms and ill-defined conditions (20 sources)Retention of urine; Translations: [Retention of urine, unspecified] Onset: 264493-84-1595QunnfhncAbopsimy; including migraine (5 sources)Chronic daily headache; Translations: [Chronic daily headache]Onset: 318653-43-3304YzzzugbmXiypvvnnbaqz injury (20 sources)Unspecified intracranial injury 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 with patient surviving, initial encounter; Translations: [Traumatic brain injury]Onset: 487332-83-2251ZyhlzrfjMnme disorders (20 sources)Mood disordersOnset: 05-19-2024 Resolved: 806508-34-5484Ssklhmzbkrn deficiencies (9 sources)Deficiency of other specified B group vitamins; Translations: [Cobalamin deficiency]Onset: 321790-88-8737OmzhdqljRmknw circulatory disease (1 source)Orthostatic hypotension; Translations: [Orthostatic hypotension] 35-22-3343XltdnmpmSrnof connective tissue disease (14 sources)Other symptoms and signs involving the musculoskeletal system; Translations: [Other musculoskeletalsymptoms referable to limbs]Onset: [id number] fractures (20 sources)Closed fracture of multiple left ribs; Translations: [Multiple fractures of ribs, left side, initial encounter for closed fracture]Onset: 013183-92-4528KybmfvydZigce gastrointestinal disorders (20 sources)Oropharyngeal dysphagia; Translations: [Dysphagia, oropharyngeal phase]Onset: 351081-79-3843WfeskmrsNlimu lower respiratory disease (3 sources)Cough; Translations: [COUGH]Onset: 80-88-3501KoukberwEephw nervous system disorders (1 source)Other acute postprocedural pain; Translations: [Acute post-operative pain]Onset: 19-02-5648HhuercyrZxqik nutritional; endocrine; and metabolic disorders (20 sources)Overweight; Translations: [Overweight]Onset: 965354-58-7999 EpisodicOther upper respiratory infections (1 source)Acute upper respiratory infection, unspecified; Translations: [ACUTE UP RESPIRATORY INFECTION UNS]Onset: 52-59-2125VjoxtqlgZcvuweka codes; unclassified (20 sources)History of closure of colostomy; Translations: [Other specified postprocedural states]Onset: 310925-37-2341UbmrpycyPqhgylwy codes; unclassified (1 source)Tobacco use; Translations: [Tobacco use]Onset: 63-04-6730Stovjshd Unclassified (4 sources)Weakness of right upper pyzqmeskb31-90-3485Airmchufrpxl (4 sources)Patient encounter qpundw41-86-1068Dbckcoezubbp (1 source)Preprocedural examination ceut16-69-8515 Results Test NameValueInterpretationReference RangeFacilitySurgical Pathology Reporton [id number] Pathology Report[address] [place] [address]- Surgical Pathology Report Collected Date/Time: 03/08/2025 09:30 EDT Pathologist: Juan CLARK PhD, Cachorro Plummer Received Date/Time: 03/09/2025 07:36 EDT Reagan CONTRERAS, Rogelio [...] the skin is middleton-pink, wrinkled and unremarkable. Strategic Intelligence Officer portion is submitted in a total of three cassettes. Cassette 1 is the skin margins and skin and soft tissue, 2 and 3 are bone from raised joint area after decalcification. (DC) DC:AARTI Microscopic Description Microscopic examination performed unless gross only specified. Quality was accessed and acceptable. This report was transcribed using voice recognition technology and might contain unintended computerized music producer errors.NormalAccess Hospital DaytonComment on above:Performed By: #### [id number] #### [facility] [address] [place], [place] [address]oneal [place], [place] [address]HHQJak 45-84-0301ZLXNMepqly Visit ([facility]) BEE HARRIS ([id number]) 1965 M Date Time Provider Department 02/21/25 3:00 PM JUS WISDOM [facility] During your visit today, we recorded the [...] myelopathy [M47.12] Order(s):XR CERV GENERAL 2V AP/LAT [[id number]] Order #: [id number] FUTURE Prescriptions as of 02/21/2025 - HYDROcodone-Acetaminophen (NORCO) 7.5-325 mg per tablet TAKE [...] left side, initi (more content not included)... NormalKettering Health Behavioral Medical CenterXR CERVICAL 2V AP/LATon 67-68-7771GA CERVICAL 2V AP/LAT* * *Final Report* * * DATE OF [...] bony erosions. IMPRESSION: Postoperative and degenerative changes. Qa Specialist: LIANA Transcribe Date/Time: Feb 21 2025 2:47P Dictated by : ANTON VIDALES MD This examination was interpreted and the report reviewed and electronically signed by: ANTON VIDALES MD on Feb 21 2025 2:48PM EST [id number] Health Behavioral Medical CenterXR Cervical spine AP and Lateralon 02-57-3905MQFQWTRKAF: Postoperative and degenerative changes. Qa Specialist: LIANA Transcribe Date/Time: Feb 21 2025 2:47P Dictated by : ANTON VIDALES MD This examination was interpreted and the report reviewed and electronically signed by: ANTON VIDALES MD on Feb 21 2025 2:48PM EST DIVISION OF RADIOLOGY* * *Final Report* * * DATE OF [...] There are no bony erosions. DIVISION OF RADIOLOGYProvider, [facility] [place] - 02/21/2025 * * *Final Report* * [...] erosions. IMPRESSION IMPRESSION: Postoperative and degenerative changes. Qa Specialist: PSCMakayla Transcribe Date/Time: Feb 21 2025 2:47P Dictated by : ANTON VIDALES MD This examination was interpreted and the report reviewed and electronically signed by: ANTON VIDALES MD on Feb 21 2025 2:48PM [facility] Study observation (narrative)[facility] Cervical spine AP and LateralOrdered By: Ccf Provider on 24-86-3204Qaqhshiud ClinicCNPNon 06-58-8782JUNVQlbdcdtys ([facility]) BEE HARRIS ([id number]) 1965 M Date Time Provider Department 02/13/25 JUS WISDOM [facility] During your visit today, we recorded the [...] 11/16/2024 Encounter Status:Closed by ELOISE EDGAR on 02/13/25NoThe Christ HospitalRefprisma health tuomey hospitalradha [id number] Bee Harris 1965 M Date Provider Department Center 02/06/2025 Jimenez-FILIBERTO SULLIVAN [facility] INT MED Comprehensiv Family History Problem Relation Age of Onset Diabetes Mother Lung cancer Mother Kidney failure Mother Heart disease Father Other Father Family Status - Relation Status Age at Mother Father Reason for Visit and Comments: Med Refill [[id number]][facility]XR Foot - left 3 Viewson 47-26-0751Ximagjs Result: 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 Louis HealthcareRadiology Study observation (narrative)NOMS HealthcareCNPNon 56-51-3633HWNAYnqverrxm (NUMBHT) BEE HARRIS ([id number]) 1965 M Date Time Provider Department 01/24/25 [...] due to being post op? Please advise. [phone] Allergies As of Date: 01/24/2025 (No Known Allergies) Date Reviewed: 12/01/2024 Reviewed by: Shila Garcia MA - Fully Assessed Prescriptions as of 03/01/2025 - HYDROcodone-Acetaminophen (NORCO) 7.5-325 mg per tablet TAKE [...] 11/16/2024 Encounter Status:Closed by VÍCTOR PUENTE on 03/01/25NoThe Christ HospitalRefprisma health tuomey hospitaln [id number] Bee Harris 1965 M Date Provider Department Center 01/13/2025 Jimenez-FILIBERTO SULLIVAN [facility] INT MED Comprehensiv Family History Problem Relation Age of Onset Diabetes Mother Lung cancer Mother Kidney failure Mother Heart disease Father Other Father Family Status - Relation Status Age at Mother Father Reason for Visit and Comments: Med Refill [[id number]][facility] CenterCNPNon 12-14-2024 CNPNTelephone (NIQ) AR HARRISLAS Oneal ([id number]) 1965 M Date Time Provider Department 12/14/24 JUS WISDOM During your visit today, we [...] appointment: 01/10/2025 Best number to reach caller: [phone] Best time to reach caller: any Is it OK to leave a detailed voice message? Yes Devaughn Toussaint, JUANITA 12/14/2024 9:59 AM Signed Neuro SPINE CARE COORDINATION QUICK NOTE ASH 12-01-24 with Ernie Rankin ENVIRONMENTAL COMPLIANCE SPECIALIST SP C3-5 laminoplasty on 11-16-24 Pt reports some improvement with balance. Pt will need refill of Roxicodone. Pt reports taking one BID and has been out for the past day. Preferred pharmacy- Ernie Berry APRN.CNP 12/14/2024 10:08 AM Signed Patient requesting pain rx refill. PDMP verified. Refill appropriate. NYA Samano Marybeth, JUANITA 12/14/2024 1:08 PM Signed Call to the pt PM was seen just prior to the surgery. PM placed [place] on hold. They will see him at [...] Medications Discontinued During This Encounter Prescriptions - HYDROcodone-Acetaminophen (NORCO) 7.5-325 mg per tablet (Discontinued) Take 1 tablet by mouth. Encounter Status:Closed by ERNIE RANKIN on 12/14/24NoParma Community General HospitalPREHENSIVE METABOLIC PANELon 64-09-2628Mcgviyn [Mass/Vol]4.6 g/dL Normal3.2-5.3PWVUMedicine [facility] Ambulatory PPGComment on above:Performed By: #### CMP #### [facility] ([facility]) [address] [place] [address] VIRALP [Catalytic activity/Vol]63 U/IEekblo67-310DzjUntega Hospital Ambulatory PPGComment on above:Performed By: #### CMP #### [facility] ([facility]) [address] [place] [address] VIRALT [Catalytic activity/Vol]17 U/LNormal<=40[facility] Ambulatory PPGComment on above:Performed By: #### CMP #### [facility] ([facility]) [address] [place] [address] VIRAnion gap [Moles/Vol]6 mmol/LNormal5-15[facility] Ambulatory PPGComment on above:Performed By: #### CMP #### [facility] ([facility]) [address] [place] [address] VIRAST [Catalytic activity/Vol]20 U/LNormal<=41ProWooster Community Hospital Ambulatory PPGComment on above:Performed By: #### CMP #### [facility] ([facility]) [address] [place] [address] VIRBilirubin [Mass/Vol]0.3 mg/dLNormal0.3-1.2PWVUMedicine [facility] Ambulatory PPGComment on above:Performed By: #### CMP #### [facility] ([facility]) [address] [place] [address] VIRCalcium [Mass/Vol]9.6 mg/dLNormal8.5-10.5PWVUMedicine [facility] Ambulatory PPGComment on above:Performed By: #### CMP #### [facility] ([facility]) [address] [place] [address] VIRChloride [Moles/Vol]111 mmol/EXppw43-411UxqSvumwv Hospital Ambulatory PPGComment on above:Performed By: #### CMP #### [facility] ([facility]) [address] [place] [address] VIRCO2 [Moles/Vol]25 mmol/LKhecaq46-75XwoDibqcl Hospital Ambulatory PPGComment on above:Performed By: #### CMP #### [facility] ([facility]) [address] [place] [address] VIRCreatinine [Mass/Vol]0.92 mg/dLNormal0.60-1.30ProWooster Community Hospital Ambulatory PPGComment on above:Result Comment: METHOD TRACEABLE TO IDSC STANDARDPerformed By: #### CMP #### [facility] ([facility]) [address] [place] [address] VIREGFR (CKD-EPI) NON-RACE DEPENDENT>^90Normal>=60[facility] Ambulatory PPGComment on above:Result Comment: Reported eGFR is based on the CKD-EPI 2020 equation that does not use a race coefficient.Performed By: #### CMP #### [facility] ([facility]) [address] [place] [address] VIRGlucose [Mass/Vol]99 mg/mKKdjyil09-32AruFuwsdj Hospital Ambulatory PPGComment on above:Performed By: #### CMP #### [facility] ([facility]) [address] [place] [address] VIRPotassium [Moles/Vol]4.2 mmol/LNormal3.5-5.0ProWooster Community Hospital Ambulatory PPGComment on above:Performed By: #### CMP #### [facility] ([facility]) [address] [place] [address] VIRProtein [Mass/Vol]7.0 g/dLNormal6.0-8.0[facility] Ambulatory PPGComment on above:Performed By: #### CMP #### [facility] ([facility]) [address] [place] [address] VIRSodium [Moles/Vol]142 mmol/ZEozfbw990-291AvvDcezom Hospital Ambulatory PPGComment on above:Performed By: #### CMP #### [facility] ([facility]) [address] [place] [address] VIRUrea nitrogen [Mass/Vol]23 mg/dLNormal5-23[facility] Ambulatory PPGComment on above:Performed By: #### CMP #### [facility] ([facility]) [address] [place] [address] VIRComprehensive metabolic panelon 17-98-6311Ifjsonc [Mass/Vol] 4.6 g/dL3.2 - 5.3 g/dLProMedica Health SystemALP [Catalytic activity/Vol]63 U/L 39 - 130 U/LProMedica Health SystemALT No additional P-5'-P [Catalytic activity/Vol]17 U/LNINF - 40 U/LProMedica Health SystemAnion gap [Moles/Vol]6 mmol/L5 - 15 mmol/LProMedica Health SystemAST [Catalytic activity/Vol]20 U/LNINF - 41 U/LProMedica Health SystemBilirubin [Mass/Vol]0.3 mg/dL0.3 - 1.2 mg/dL [facility] Health SystemCalcium [Mass/Vol]9.6 mg/dL8.5 - 10.5 mg/dLProInfirmary Ltac Hospital Health SystemChloride [Moles/Vol]111 mmol/LHigh98 - 109 mmol/[facility] Health SystemCO2 [Moles/Vol]25 mmol/L22 - 32 mmol/[facility] Health SystemCreatinine [Mass/Vol]0.92 mg/dL0.60 - 1.30 mg/dLKettering Memorial Hospital SystemComment on above: METHOD TRACEABLE TO IDSC STANDARDEGFR Non-Race Dependent- [facility] SystemComment on above:Reported eGFR is based on the CKD-EPI 2020 equation that does not use a race coefficient. Glucose [Mass/Vol]99 mg/dL65 - 99 mg/dLKettering Memorial Hospital SystemPotassium [Moles/Vol]4.2 mmol/L3.5 - 5.0 mmol/LPrTelluride Regional Medical Center Health SystemProtein [Mass/Vol]7 g/dL6.0 - 8.0 g/dLProPaulding County Hospital SystemSodium [Moles/Vol]142 mmol/L134 - 146 mmol/[facility] SystemUrea nitrogen [Mass/Vol]23 mg/dL5 - 23 mg/dL Wilson HealthLIPID PROFILEon 25-43-4011Ribqpjvtpbq [Mass/Vol]226 mg/dL Pcuv628-764KglZccrgu Hospital Ambulatory PPGComment on above:Performed By: #### LIPR #### [facility] ([facility]) [address] [place] [address] VIRCholesterol in HDL [Mass/Vol]66 mg/dLNormal>39[facility] Ambulatory PPGComment on above:Result Comment: HDL <40 mg/dL - High Risk HDL > or = 40mg/dL- Desirable HDL >60 mg/dL - Negative RiskPerformed By: #### LIPR #### [facility] ([facility]) [address] [place] [address] VIRCholesterol in LDL [Mass/Vol]127 mg/dLNormal<130[facility] Ambulatory PPGComment on above:Result Comment: LDL <100 mg/dL - Desirable LDL >160 mg/dL - High RiskPerformed By: #### LIPR #### [facility] ([facility]) [address] [place] [address] VIRCHOLESTEROL:HDL3.3Hkrjnz5.0-5.0[facility] Ambulatory PPGComment on above:Performed By: #### LIPR #### [facility] ([facility]) [address] [place] [address] VIRTriglyceride [Mass/Vol]165 mg/sLKvis98-949LusNuoqxr Hospital Ambulatory PPGComment on above:Performed By: #### LIPR #### [facility] ([facility]) [address] [place] [address] VIRVERY LOW QUDGKACKSFE29 mg/dLHigh0-30[facility] Ambulatory PPGComment on above:Performed By: #### LIPR #### [facility] ([facility]) [address] [place] [address] VIRLipid profileon 34-28-2045Fyszairutwi [Mass/Vol]226 mg/dL Zjgz017 - 200 mg/dLWilson HealthCholesterol in HDL [Mass/Vol]66 mg/dL 39 - PINF mg/dLWilson HealthComment on above:HDL <40 mg/dL - High Risk HDL > or = 40mg/dL- Desirable HDL >60 mg/dL - Negative Risk Cholesterol in HDL [Mass/Vol]3.4 mg/dL1.0 - 5.0[facility] Cholesterol in LDL [Mass/Vol]127 mg/dLNINF - 130 mg/dLWilson Health Comment on above:LDL <100 mg/dL - Desirable LDL >160 mg/dL - High Risk Cholesterol in VLDL [Mass/Vol]33 mg/dLHigh0 - 30 mg/dLWilson Health Triglyceride [Mass/Vol]165 mg/vLGkzj89 - 150 mg/dLWilson HealthNo Panel Informationon 05-76-2507Xetyvlkcivdidj and review of laboratory results AbnormalPunxsutawney Area HospitalVITAMIN B12on 12-13-2024 Cobalamin (Vitamin B12) [Mass/Vol]1213 pg/xFVnvg530-391QjyQcxkuj Hospital Ambulatory PPGComment on above:Performed By: #### B12 #### [facility] ([facility]) [address] [place] [address] VIRVitamin B12on 62-93-9514Qqewhsbsc (Vitamin B12) [Mass/Vol] 1213 pg/lNOwkh735 - 914 pg/mLKettering Memorial Hospital SystemInterpretation and review of laboratory resultsAbnormalKettering Memorial Hospital SystemProPaulding County Hospital SystemCNOVon 28-97-4539XBZCAwrxbd Visit (SPNSMN) BEE HARRIS ([id number]) 1965 M Date Time Provider Department 12/01/24 2:15 PM ERNIE RANKIN [facility] During your visit today, we recorded the following information about you: Temperature Pulse Respiration Blood pressure 97.6 degrees 67/minute 18/minute 119/73 Weight Height 74.8 kg 1.778 m Ernie Rankin APRN.ACTUARIAL INTERNSHIP 12/01/2024 1:09 PM Signed 2 week post [...] the great work! Contact the office via Ilusishart or phone call with questions or concerns. [phone] Ernie Rankin APRN.ACTUARIAL INTERNSHIP 12/02/2024 2:16 PM Signed SPINE SURGERY FOLLOW [...] or rehab. He now has [facility] providing him assistance. Reports generalized neck pain and stiffness. Seeing some improvement in altered sensation. Using robaxin, tylenol, and lyrica for pain relief. Continues using the narcotics as needed. Incision is healing well without any complications- he was worried as his bandage was coming off. His come health career coach was able to replace and reinforce. Denies [...] Mood pleasant. Benign affect. Spine Exam Incision: Shirland removed and replaced with steri-strips. No significant erythema, edema, and no drainage. 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 He will [...] He will follow-up w (more content not included)...NormalBlanchard Valley Health System [facility] Valley HospitalPNon 82-01-0976GVNJSaajcdzuu (SPDEVYNMN) KIMBERLYBEE AMOR ([id number]) 1965 M Date Time Provider Department 11/22/24 SHU LANDERS During your visit today, we recorded the following information about you: Shu Landers LSW 11/22/2024 3:14 PM Signed sent HC referrals to [address]- awaiting responses. Due to pt insurance type identifying HC agency willing to accept pt may take extended time Shu Landers LSW 11/24/2024 1:03 PM Addendum Jayna HC agency declined pt for HC services CM send referral sent to [facility]- awaiting response [facility]- expressed they are unable to accept pt due to being at max capacity for pt insurance for at least 1.5-2 weeks and if services are still desired then a new referral would need to be placed. CM expressed understanding and thanks Shu Landers LSW 11/28/2024 9:[address] [facility] has confirmed they are able to accept [...] total) by mouth in the morning - HYDROcodone-Acetaminophen (NORCO) 7.5-325 mg per tablet Take [...] 11/16/2024 Encounter Status:Closed by SHU LANDERS on 11/22/24NoThe Christ HospitalCNPNTelephone (NIQ) BEE HARRIS ([id number]) 1965 M Date Time Provider Department 11/22/24 JUS WISDOM During your visit today, we [...] appointment: 01/10/2025 Best number to reach caller: [phone] Best time to reach caller: any Is it OK to leave a detailed voice message? Yes Rukhsana Rosenthal Devaughn Vazquez, JUANITA 11/22/2024 2:21 PM Signed Neuro SPINE CARE [...] ambulation . Minimal support at home. Speed Cipher ExpertErendira Jean 11/29/2024 12:38 PM Signed Cheyanne with [facility] is calling pertaining to below message, Home Care [facility]ne states they are starting home care today Cheyanne call back [phone] Devaughn Vazquez, JUANITA 11/29/2024 1:05 PM Signed [...] [1477] Primary Visit Diagnosis:Cervical vertebral fusion [M43.22] Order([facility] [[id number]] Order #: [id number]: 1 Prescriptions as of 11/29/2024 - acetaminophen [...] total) by mouth in the morning - HYDROcodone-Acetaminophen (NORCO) 7.5-325 mg per tablet Take [...] 11/16/2024 Encounter Status:Closed by ERNIE RANKIN on 11/22/24NormalCSt. Elizabeth Hospital metabolic 2000 panelon 20-21-9770Ccbny gap [Moles/Vol]11 mmol/L Normal8-15Lutheran HospitalComment on above:Order Comment: Specimen Type: BLOOD SPECIMENOrdering Facility: [facility] Address:[address] [place], [place] [address]Performed By: #### 51065-6 ####[facility] LABORATORYCLIA [id number] [address] [place] [address] [place] OF AMERICACalcium [Mass/Vol]8.9 mg/dLNormal8.5-10.2Luthdignity health arizona specialty hospital HospitalComment on above:Order Comment: Specimen Type: BLOOD SPECIMENOrdering Facility: [facility] Address:[address] [place], [place] [address]Performed By: #### 18259- 2 ####MORMON LABORATORYCLIA [id number] [address] [place] [address] [place] AMERICAChloride [Moles/Vol]106 mmol/THzblbj83-372Wnenrajo HospitalComment on above:Order Comment: Specimen Type: BLOOD SPECIMENOrdering Facility: [facility] Address:[address] [place], [place] [address]Performed By: #### 17358-0 ####MOR[facility] LABORATORYCLIA [id number] [place] [id number] [place] OF AMERICACO2 [Moles/Vol]23 mmol/L Hzljqx00-38Arhgmnxk HospitalComment on above:Order Comment: Specimen Type: BLOOD SPECIMENOrdering Facility: [facility] Address:[address] [place], [place] [address]Performed By: #### 08496-6 ####MOR[facility] LABORATORYCLIA [id number] [place] [id number] [place] Creatinine [Mass/Vol]0.59 mg/dLLow0.73-1.22Lut[facility] HospitalComment on above: Order Comment: Specimen Type: BLOOD SPECIMENOrdering Facility: [facility] Address:[address] [place], [place] [address]Performed By: #### 60065- 2 ####M[facility] LABORATORYCLIA [id number] [place] [id number] [place] AMERICACreatinine and Glomerular filtration rate.predicted panel (S/P/Bld)112 mL/min/1.73m???Normal>=60[facility] HospitalComment on above: Order Comment: Specimen Type: BLOOD SPECIMENOrdering Facility: [facility] Address:[address] [place], [place] [address]Yofzxa Comment: Estimated Glomerular Filtration Rate (eGFR) is calculated using the 2020 CKD-EPI cre atinine equation. This equation utilizes serum creatinine, sex, and age as parameters. The creatinine assay has traceable calibration to isotope dilution- mass spectrometry. Refer to KDIGO guidelines for clinical interpretation. In patients with unstable renal function, e.g. those with acute kidney injury, the eGFR may not accurately reflect actual GFR.Performed By: #### 99425-8 ####MOR[facility] LABORATORYCLIA [id number] [place] [id number] [place] AMERICAGlucose [Mass/Vol]84 mg/iWPbnhua73-05Ivvxygwb Hospital Comment on above:Order Comment: Specimen Type: BLOOD SPECIMENOrdering Facility: [facility] Address:[address] [place] [id number] Comment: The [place] Diabetes Association (ADA) provides guidance for cutoff [...] Standards of Medical Care in Diabetes 2016, [place] Diabetes Association. Diabetes Care. 2016.39(Suppl 1).Performed By: #### 04948-6 ####MOR[facility] LABORATORYCLIA [id number] [place] [id number] [place] AMERICAPotassium [Moles/Vol]4.4 mmol/LNormal3.7-5.1Luthdignity health arizona specialty hospital HospitalComment on above:Order Comment: Specimen Type: BLOOD SPECIMENOrdering Facility: [facility] Address:[address] [place] [id number] By: #### 59849-1 ####MORMON LABORATORYCLIA [id number] [address] [place] [address] [place] AMERICASodium [Moles/Vol]140 mmol/YKlknuh621-218Aggqzlex HospitalComment on above:Order Comment: Specimen Type: BLOOD SPECIMENOrdering Facility: [facility] Address:[address] [place], [place] [address]Performed By: #### 67476-3 ####MORMON LABORATORYCLIA [id number] [address] [place], [place] [address] [place] OF AMERICAUrea nitrogen [Mass/Vol]16 mg/dLNormal9-24Lutheran HospitalComment on above:Order Comment: Specimen Type: BLOOD SPECIMENOrdering Facility: [facility] Address:[address] [place], [place] [address]Performed By: #### 96499-1 ####MORMON LABORATORYCLIA [id number] [place] [id number] [place] OF AMERICACBC panel Auto (Bld)on 78-50-0371Bpzpxufjrpe distribution width (RBC) [Ratio]14.6 %Oudamq66.5-15.0Lutheran HospitalComment on above:Order Comment: Specimen Type: BLOOD SPECIMENOrdering Facility: [facility] Address:[address] [place], [place] [address]Performed By: #### 66413-1 ####MORMON LABORATORYCLIA [id number] [place] [address] [place] OF AMERICAHematocrit (Bld) [Volume fraction]39.8 %Normal 39.0-51.0Lutheran HospitalComment on above:Order Comment: Specimen Type: BLOOD SPECIMENOrdering Facility: [facility] Address:[address] [place], [place] [address]Performed By: #### 20565-2 ####MORMON LABORATORYCLIA [id number] [place] [address] [place] Hemoglobin (Bld) [Mass/Vol]13.1 g/eTAiryks90.0-17.0Lutheran HospitalComment on above:Order Comment: Specimen Type: BLOOD SPECIMENOrdering Facility: [facility] Address:[address] [place], [place] [address]Performed By: #### 32571-5 ####MORMON LABORATORYCLIA [id number] [place] [address] [facility] (RBC) [Entitic mass]32.9 rzFateyz15.0-34.0 [facility] HospitalComment on above:Order Comment: Specimen Type: BLOOD SPECIMENOrdering Facility: [facility] Address:[address] [place], [place] [address]Performed By: #### 59976-5 ####MORMON LABORATORYCLIA [id number] [address] (RBC) [Mass/Vol]32.9 g/wBIoieuy14.5-36.0Lutheran HospitalComment on above:Order Comment: Specimen Type: BLOOD SPECIMENOrdering Facility: [facility] Address:[address] [place], [place] [address]Performed By: #### 58721- 2 ####MORMON LABORATORYCLIA [id number] [address] (RBC) [Entitic vol]100.0 aBRzazdw29.0-100.0Lutheran HospitalComment on above:Order Comment: Specimen Type: BLOOD SPECIMENOrdering Facility: [facility] Address:[address] [place], [place] [address]Performed By: #### 66155-9 ####MORMON LABORATORYCLIA [id number] [address] RBC (Bld) [#/Vol]10*3/uLNormal<0.01Lutheran HospitalComment on above:Order Comment: Specimen Type: BLOOD SPECIMENOrdering Facility: [facility] Address:[address] [place], [place] [address]Performed By: #### 09218-7 ####MORMON LABORATORYCLIA [id number] [place] [address] [facility]ICAL CENTERPlatelet mean volume (Bld) [Entitic vol]10.5 fLNormal 9.0-12.7Lutheran HospitalComment on above:Order Comment: Specimen Type: BLOOD SPECIMENOrdering Facility: [facility] Address:[address] [place], [place] [address]Performed By: #### 38773-8 ####MORMON LABORATORYCLIA [id number] [address] [place] [address] [place] Platelets (Bld) [#/Vol]188 10*3/tZZjxnzv247-343Ocbkufep HospitalComment on above:Order Comment: Specimen Type: BLOOD SPECIMENOrdering Facility: [facility] Address:[address] [place], [place] [address]Performed By: #### 92074-9 ####MORMON LABORATORYCLIA [id number] [address] [place], [place] [address]RBC (Bld) [#/Vol]3.98 10*6/uLLow4.20-6.00Lutsan [facility] healthcare corporationan HospitalComment on above:Order Comment: Specimen Type: BLOOD SPECIMENOrdering Facility: [facility] Address:[address] [place], [place] [address]Performed By: #### 11997-4 ####MORMON LABORATORYCLIA [id number] [address]ETWBC (Bld) [#/Vol]8.87 10*3/uLNormal3.70-11.00Lutsan [facility] healthcare corporationan HospitalComment on above:Order Comment: Specimen Type: BLOOD SPECIMENOrdering Facility: [facility] Address:[address] [place], [place] [address]Performed By: #### 57637-8 ####MORMON LABORATORYCLIA [id number] [place] [address] [facility] CENTERCNDSon 98-33-8046HVPVRUG ID: [id number] Author: JUS WISDOM MD Service: Orthopaedic Surgery [...] has been followed by Jus Gupta MD, MD in clinic for Cervical Spondylotic Myelopathy. It was determined he would benefit from surgery. The procedure, its risks, benefits, and potential complications were discussed in detail with the patient prior to surgery. Understanding of all topics was conveyed by the patient, and consent was given for surgery. The patient was electively admitted to the [facility] on 11/16/2024. Surgery was scheduled and [...] Department Center 12/01/2024 2:15 PM Ernie Rankin APRN.[employer] SPNSMN Main - S Bld 01/10/2025 1:15 PM XR Mayela CLARK 1 XRHT [facility] 01/10/2025 2:00 PM Jus Wisdom MD [facility] Bee aHrris will require more than a 7 day supply of 30 morphine equivalent doses per day (MEDD) of narcotic prescription due to their major orthopaedic surgery Lopez Singh MD PGY-3 [facility]2024 [facility]: [id number] Author: IRMA MARCH RT(R) Service: Radiology Author Type: Technologist Type: [facility] Filed: 11/18/2024 11:40 Note Text: Radiology [...] PATIENT PRESENTS WITH AN IMPLANTABLE OR ATTACHED MAGICIAN HELPER: No RADIOLOGY DEPARTMENT: General X-ray: Exam(s) Completed: Spine X-Ray(s): Cervical AP / LAT PERIPHERAL IV DATA: Not applicable SIGNED BY: RT Drummond Cela(R) November 18, 2024 11:40 AMNormalLutheran HospitalBasic metabolic 2000 [facility] hospitalon 11-42-9532Zhttk gap [Moles/Vol]4 mmol/LLow8-15[facility] HospitalComment on above: Order Comment: Specimen Type: BLOOD SPECIMENOrdering Facility: [facility] Address:[address] [place], [place] [address]Performed By: #### 09452- 2 ####MORMON LABORATORYCLIA [id number] [place] [address] [place] AMERICACalcium [Mass/Vol]8.8 mg/dLNormal8.5-10.2Lutheran HospitalComment on above:Order Comment: Specimen Type: BLOOD SPECIMENOrdering Facility: [facility] Address:[address] [place], [place] [address]Performed By: #### 64845-8 ####MORMON LABORATORYCLIA [id number] [place] [address] [place] AMERICAChloride [Moles/Vol]114 mmol/KUwim57-331Mrufzzke HospitalComment on above:Order Comment: Specimen Type: BLOOD SPECIMENOrdering Facility: [facility] Address:[address] [place], [place] [address]Performed By: #### 32780-1 ####MORMON LABORATORYCLIA [id number] [place] [address] [place] AMERICACO2 [Moles/Vol]22 mmol/ZKedibr79-93Keyyello HospitalComment on above:Order Comment: Specimen Type: BLOOD SPECIMENOrdering Facility: [facility] Address:[address] [place], [place] [address]Performed By: #### 82152-9 ####MORMON LABORATORYCLIA [id number] [place] [address] [place] AMERICACreatinine [Mass/Vol]0.67 mg/dLLow0.73-1.22[facility] HospitalComment on above:Order Comment: Specimen Type: BLOOD SPECIMENOrdering Facility: [facility] Address:[address] [place], [place] [address]Performed By: #### 55527-0 ####MORMON LABORATORYCLIA [id number] [place] [address] [place] AMERICACreatinine and Glomerular filtration rate.predicted panel (S/P/Bld)108 mL/min/1.73m???Normal>=60[facility] HospitalComment on above:Order Comment: Specimen Type: BLOOD SPECIMENOrdering Facility: [facility] Address:[address] [place], [place] [address]Result Comment: Estimated Glomerular Filtration Rate (eGFR) is calculated using the 2020 CKD-EPI creatinine equation. This equation utilizes serum creatinine, sex, and age as parameters. The creatinine assay has traceable calibration to isotope dilution-mass spectrometry. Refer to KDIGO guidelines for clinical interpretation. In patients with unstable renal function, e.g. those with acute kidney injury, the eGFR may not accurately reflect actual GFR. Performed By: #### 77498-5 ####MORMON LABORATORYCLIA [id number] [place] [address] [place] AMERICAGlucose [Mass/Vol]84 mg/dL Qgnycy50-76Azxklvgv HospitalComment on above:Order Comment: Specimen Type: BLOOD SPECIMENOrdering Facility: [facility] Address:[address] [place], [place] [address]Result Comment: The [place] Diabetes Association (ADA) provides guidance for cutoff [...] Standards of Medical Care in Diabetes 2016, [place] Diabetes Association. Diabetes Care. 2016.39(Suppl 1).Performed By: #### 90152-6 ####MORMON LABORATORYCLIA [id number] [place] [address] [place] AMERICAPotassium [Moles/Vol]4.1 mmol/LNormal3.7-5.1Luthdignity health [facility] HospitalComment on above:Order Comment: Specimen Type: BLOOD SPECIMENOrdering Facility: [facility] Address:[address] [place], [place] [address]Performed By: #### 57521-3 ####MORMON LABORATORYCLIA [id number] [place] [address] [place] AMERICASodium [Moles/Vol]140 mmol/EErbnjp046-933Kkjpenln HospitalComment on above:Order Comment: Specimen Type: BLOOD SPECIMENOrdering Facility: [facility] Address:[address] [place], [place] [address]Performed By: #### 85795-5 ####MORMON LABORATORYCLIA [id number] [place] [address] [place] AMERICAUrea nitrogen [Mass/Vol]17 mg/dLNormal9-24Lutheran HospitalComment on above:Order Comment: Specimen Type: BLOOD SPECIMENOrdering Facility: [facility] Address:[address] [place], [place] [address]Performed By: #### 22290-2 ####MORMON LABORATORYCLIA [id number] [address] [place], [place] [address] [place] AMERICACBC panel Auto (Bld)on 12-48-8035Rfuacoqasjd distribution width (RBC) [Ratio]15.0 %Nlatyd88.5-15.0[facility] HospitalComment on above:Order Comment: Specimen Type: BLOOD SPECIMENOrdering Facility: [facility] Address:[address] [place], [place] [address]Performed By: #### 56789-4 ####MORMON LABORATORYCLIA [id number] [place] [address] [place] OF [facility] MEDICAL CENTERHematocrit (Bld) [Volume fraction]38.4 %Low 39.0-51.0[facility] HospitalComment on above:Order Comment: Specimen Type: BLOOD SPECIMENOrdering Facility: [facility] Address:[address] [place], [place] [address]Performed By: #### 36167-6 ####MORMON LABORATORYCLIA [id number] [place] [address] [place] Hemoglobin (Bld) [Mass/Vol]12.5 g/dLLow13.0-17.0[facility] HospitalComment on above:Order Comment: Specimen Type: BLOOD SPECIMENOrdering Facility: [facility] Address:[address] [place], [place] [address]Performed By: #### 39255-0 ####MORMON LABORATORYCLIA [id number] [place] [address] [place] AMERICAMCH (RBC) [Entitic mass]33.0 smWotivx76.0-34.0 [facility] HospitalComment on above:Order Comment: Specimen Type: BLOOD SPECIMENOrdering Facility: [facility] Address:[address] [place], [place] [address]Performed By: #### 19789-0 ####MORMON LABORATORYCLIA [id number] [place] [address] [facility]ENTERHC (RBC) [Mass/Vol]32.6 g/gHWzlbks12.5-36.0Lutheran HospitalComment on above:Order Comment: Specimen Type: BLOOD SPECIMENOrdering Facility: [facility] Address:[address] [place], [place] [address]Performed By: #### 86304- 2 ####MORMON LABORATORYCLIA [id number] [address] [place], [place] [address] [facility] CENTERMCV (RBC) [Entitic vol]101.3 sXJdkx09.0-100.0Lutheran HospitalComment on above:Order Comment: Specimen Type: BLOOD SPECIMENOrdering Facility: [facility] Address:[address] [place], [place] [address]Performed By: #### 31806-2 ####MORMON LABORATORYCLIA [id number] [address] AMERICANucleated RBC (Bld) [#/Vol]10*3/uLNormal<0.01Lutheran HospitalComment on above:Order Comment: Specimen Type: BLOOD SPECIMENOrdering Facility: [facility] Address:[address] [place], [place] [address]Performed By: #### 95684-4 ####MORMON LABORATORYCLIA [id number] [place] [address] [facility]ICAL CENTERPlatelet mean volume (Bld) [Entitic vol]10.1 fLNormal 9.0-12.7Lutheran HospitalComment on above:Order Comment: Specimen Type: BLOOD SPECIMENOrdering Facility: [facility] Address:[address] [place], [place] [address]Performed By: #### 08346-7 ####MORMON LABORATORYCLIA [id number] [place] [address] [place] Platelets (Bld) [#/Vol]163 10*3/yTYooaex228-512Loyxqbin HospitalComment on above:Order Comment: Specimen Type: BLOOD SPECIMENOrdering Facility: [facility] Address:[address] [place], [place] [address]Performed By: #### 45769-5 ####MORMON LABORATORYCLIA [id number] [place] [address] [facility] CENTERRBC (Bld) [#/Vol]3.79 10*6/uLLow4.20-6.00Gnosticism HospitalComment on above:Order Comment: Specimen Type: BLOOD SPECIMENOrdering Facility: [facility] Address:[address] [place], [place] [address]Performed By: #### 57686-5 ####MORMON LABORATORYCLIA [id number] [address]ETWBC (Bld) [#/Vol]8.73 10*3/uLNormal3.70-11.00Gnosticism HospitalComment on above:Order Comment: Specimen Type: BLOOD SPECIMENOrdering Facility: [facility] Address:[address] [place], [place] [address]Performed By: #### 98130-5 ####MORMON LABORATORYCLIA [id number] [place] [address] [facility] CENTERXR CERVICAL 2V AP/LATon 36-64-8498QT CERVICAL 2V AP/LAT* * *Final Report* * * DATE OF [...] Narrowing C6-7 disc space. IMPRESSION: Postsurgical findings Qa Specialist: LIANA Transcribe Date/Time: Nov 18 2024 3:02P Dictated by : ADILSON JONES MD This examination was interpreted and the report reviewed and electronically signed by: ADILSON JONES MD on Nov 18 2024 3:04PM EST [id number] HospitalBasic metabolic 2000 panelon 48-15-8293Fdxgj gap [Moles/Vol]11 mmol/LNormal8-15Lutheran HospitalComment on above:Order Comment: Specimen Type: BLOOD SPECIMENOrdering Facility: [facility] Address:[address] [place], [place] [address]Performed By: #### 78779-7 ####MORMON LABORATORYCLIA [id number] [place] [address] [place] AMERICACalcium [Mass/Vol]8.7 mg/dLNormal8.5-10.2Lutheran HospitalComment on above:Order Comment: Specimen Type: BLOOD SPECIMENOrdering Facility: [facility] Address:[address] [place], [place] [address]Performed By: #### 25064-6 ####MORMON LABORATORYCLIA [id number] [place] [address] [place] AMERICAChloride [Moles/Vol]112 mmol/NUeyi25-658Blyhiytw HospitalComment on above:Order Comment: Specimen Type: BLOOD SPECIMENOrdering Facility: [facility] Address:[address] [place], [place] [address]Performed By: #### 72081-1 ####MORMON LABORATORYCLIA [id number] [place] [address] [place] AMERICACO2 [Moles/Vol]19 mmol/QLpg38-51Gzyvndng HospitalComment on above:Order Comment: Specimen Type: BLOOD SPECIMENOrdering Facility: [facility] Address:[address] [place], [place] [address]Performed By: #### 45229-3 ####MORMON LABORATORYCLIA [id number] [address] [place], [place] [address] [place] AMERICACreatinine [Mass/Vol]0.69 mg/dLLow0.73-1.22[facility] Osteopathic ClinicComment on above:Order Comment: Specimen Type: BLOOD SPECIMENOrdering Facility: [facility] Address:[facility] [place] [address]Performed By: #### 63595-0 ####MORMON LABORATORYCLIA [id number] [place] [address] [place] AMERICACreatinine and Glomerular filtration rate.predicted panel (S/P/Bld)107 mL/min/1.73m???Normal>=60[facility] Osteopathic ClinicComment on above:Order Comment: Specimen Type: BLOOD SPECIMENOrdering Facility: [facility] Address:[address] [place], [place] [address]Result Comment: Estimated Glomerular Filtration Rate (eGFR) is calculated using the 2020 CKD-EPI creatinine equation. This equation utilizes serum creatinine, sex, and age as parameters. The creatinine assay has traceable calibration to isotope dilution-mass spectrometry. Refer to KDIGO guidelines for clinical interpretation. In patients with unstable renal function, e.g. those with acute kidney injury, the eGFR may not accurately reflect actual GFR. Performed By: #### 30233-8 ####MORMON LABORATORYCLIA [id number] [place] [address] [place] AMERICAGlucose [Mass/Vol]81 mg/dL Ecsypg40-24Fqfzvbpj HospitalComment on above:Order Comment: Specimen Type: BLOOD SPECIMENOrdering Facility: [facility] Address:[address] [place], [place] [address]Result Comment: The [place] Diabetes Association (ADA) provides guidance for cutoff [...] Standards of Medical Care in Diabetes 2016, [place] Diabetes Association. Diabetes Care. 2016.39(Suppl 1).Performed By: #### 56475-3 ####MORMON LABORATORYCLIA [id number] [address] [place] [address] [place] AMERICAPotassium [Moles/Vol]4.4 mmol/LNormal3.7-5.1Lutheran HospitalComment on above:Order Comment: Specimen Type: BLOOD SPECIMENOrdering Facility: [facility] Address:[address] [place], [place] [address]Performed By: #### 83670-1 ####MORMON LABORATORYCLIA [id number] [place] [address] [place] AMERICASodium [Moles/Vol]142 mmol/VGrxbvd810-704Ddhsonks HospitalComment on above:Order Comment: Specimen Type: BLOOD SPECIMENOrdering Facility: [facility] Address:[address] [place], [place] [address]Performed By: #### 26339-4 ####MORMON LABORATORYCLIA [id number] [place] [address] [place] AMERICAUrea nitrogen [Mass/Vol]20 mg/dLNormal9-24[facility] HospitalComment on above:Order Comment: Specimen Type: BLOOD SPECIMENOrdering Facility: [facility] Address:[address] [place], [place] [address]Performed By: #### 83449-4 ####MORMON LABORATORYCLIA [id number] [place] [address] [place] OF AMERICACASE MGT INIT ASSESon 80-72-9687CGAY MGT INIT [facility] ID: [id number] Author: VÍCTOR CASTILLO RN Service: Care Management Author Type: Registered Nurse Type: Care Mgt Initial Assessment Filed: 11/17/2024 14:53 Note Text: CARE MANAGEMENT: ASSESSMENT AND DISCHARGE PLAN SERVICE DATE: November 17, 2024 SERVICE TIME: 1430 PCP: Cris Singh DO Primary Contact: Extended Emergency Contact Information Primary Emergency Contact: Marcela Toro Mobile Relation: Sister Admission Status: Inpatient Insurance Provider: [employer] Discharge Planning requested by: Per Department [...] Medication Management Needs Assistance: Ambulation, Transportation to appointments/community Current Services/Equipment Current Post-Acute Service(s): DME Current DME Type: Cane Discharge Planning Patient Goal(s): Other: See Comment Patient's Other Post-Acute Care Goal(s): to have better balance [place] of Choice Explained: [place] of Choice Given: No Reason Not Given: [...] Harris DATE: November 17, 2024 TIME: 2:48 PMNormalLutheran [facility] panel Auto (Bld)on 39-94-0019Ztrkdpwtacy distribution width (RBC) [Ratio]14.9 %Rrpmeb91.5-15.0Lutheran HospitalComment on above:Order Comment: Specimen Type: BLOOD SPECIMENOrdering Facility: [facility] Address:[address] [place] [address] Performed By: #### 28543-3 ####MORMON LABORATORYCLIA [id number] [place] [address] [place] HEALTH ALLIANCEHematocrit (Bld) [Volume fraction]40.6 %Qlukda95.0-51.0[facility] HospitalComment on above:Order Comment: Specimen Type: BLOOD SPECIMENOrdering Facility: [facility] Address:[address] [place], [place] [address]Performed By: #### 10685-1 ####MORMON LABORATORYCLIA [id number] [address] FORD STREETHemoglobin (Bld) [Mass/Vol]13.3 g/eNPtiwab09.0-17.0 [facility] HospitalComment on above:Order Comment: Specimen Type: BLOOD SPECIMENOrdering Facility: [facility] Address:[address] [place], [place] [address]Performed By: #### 91079-0 ####MORMON LABORATORYCLIA [id number] [place] [address] [facility] (RBC) [Entitic mass]33.0 yhAfedkw93.0-34.0Luther HospitalComment on above: Order Comment: Specimen Type: BLOOD SPECIMENOrdering Facility: [facility] Address:[address] [place], [place] [address]Performed By: #### 78888- 2 ####MORMON LABORATORYCLIA [id number] [place] [address] [facility] (RBC) [Mass/Vol]32.8 g/qZJqbxxf26.5-36.0[facility] HospitalComment on above:Order Comment: Specimen Type: BLOOD SPECIMENOrdering Facility: [facility] Address:[address] [place], [place] [address]Performed By: #### 68350-1 ####MORMON LABORATORYCLIA [id number] [place] [address] [place] AMERICAMCV (RBC) [Entitic vol] 100.7 fVUcbf68.0-100.0Lutheran HospitalComment on above:Order Comment: Specimen Type: BLOOD SPECIMENOrdering Facility: [facility] Address:[address] [place], [place] [address]Performed By: #### 90333-8 ####MORMON LABORATORYCLIA [id number] [address] [place], [place] [address]ucleated RBC (Bld) [#/Vol]10*3/uLNormal<0.01Lutheran HospitalComment on above:Order Comment: Specimen Type: BLOOD SPECIMENOrdering Facility: [facility] Address:[address] [place], [place] [address]Performed By: #### 13907-0 ####MORMON LABORATORYCLIA [id number] [address] [place], [place] [address]Platelet mean volume (Bld) [Entitic vol]10.6 fL Normal9.0-12.7Lutheran HospitalComment on above:Order Comment: Specimen Type: BLOOD SPECIMENOrdering Facility: [facility] Address:[address] [place], [place] [address]Performed By: #### 05122-0 ####MORMON LABORATORYCLIA [id number] [address] Platelets (Bld) [#/Vol]177 10*3/uYSznooc333-193Vbizpshn HospitalComment on above:Order Comment: Specimen Type: BLOOD SPECIMENOrdering Facility: [facility] Address:[address] [place], [place] [address]Performed By: #### 93384-4 ####MORMON LABORATORYCLIA [id number] [address] [place] [address] STATES P[facility] B[facility] MEDICAL CENTERRBC (Bld) [#/Vol]4.03 10*6/uLLow4.20-6.00Lutheran HospitalComment on above:Order Comment: Specimen Type: BLOOD SPECIMENOrdering Facility: [facility] Address:[address] [place], [place] [address]Performed By: #### 81786-6 ####MORMON LABORATORYCLIA [id number] [place] [id number] [place] AMERICAWBC (Bld) [#/Vol]9.80 10*3/uLNormal3.70-11.00[facility] Osteopathic ClinicComment on above:Order Comment: Specimen Type: BLOOD SPECIMENOrdering Facility: [facility] Address:[address] [place], [place] [address]Performed By: #### 02240-3 ####MORMON LABORATORYCLIA [id number] [place] [address] [facility] AMERICATHERAPY NTon 79-73-8447KTXPDYI NTHNO ID: [id number] Author: ARGELIA KUMARI, PT, DPT Service: Physical Therapy Author Type: Physical Therapist Type: Therapy (PT/OT/Speech/Resp) Filed: 11/17/2024 11:23 Note Text: Summary: PT Evaluation Physical Therapy Evaluation Summary SERVICE DATE: 11/17/2024 SERVICE TIME: 1049 to 1114 ROOM: [address]- PT 6 Clicks Score: 23 DISCHARGE RECOMMENDATIONS [...] want to get outside to watch the [employer] DIAGNOSIS Abnormalities of gait and mobility-other TREATMENT INTERVENTIONS Evaluation, Gait Training (87328) Timed Code Treatment (minutes): 10 Skilled Treatment Time (minutes): 25 TRAINING AND EDUCATION PROVIDED Anatomy and Impact on Deficits, Assistive Device Use, Benefits of In-Hospital Mobility, Discharge Planning, Disease Specific Education, Expected Functional Level, Falls Prevention, Handout Issued, Gait Pattern, Reduction of Deviations, Home Safety, Precautions/Restrictions, Role of Physical Therapy, Transfers THERAPEUTIC SKILLS [...] with Rollator Gait Device: Cane, Rollator General Deviations/Observations: Juli decreased Gait Distance (feet): x80' Cane; x180' Rollator Stairs GOALS Patient will demonstrate progress with functional mobility to allow safe discharge to home with available support and/or physical assistance. Rehab Potential: Good PLAN PT Frequency: Discontinue Therapy Services Reasons Therapy Services Discontinued: Goals met Treatment Interventions: Education SIGNATURE: Argelia Kumari, PT, DPT PATIENT NAME: Bee Harris DATE: November 17, 2024 TIME: 11:23 [facility] NTO ID: [id number] Author: GYPSY HWANG, OTR/L Service: Occupational Therapy Author Type: Occupational Therapist Type: Therapy (PT/OT/Speech/Resp) Filed: 11/17/2024 11:06 Note Text: Occupational Therapy Evaluation Summary SERVICE DATE: 11/17/2024 SERVICE TIME: 1017 to 1036 ROOM: [place] [address] OT 6 Clicks Score: 24 Total Joint [...] (minutes): 19 TRAINING AND EDUCATION PROVIDED Activity Adaptation/Compensatory Strategies, Assistive Device Use, Adaptive Equipment/DME, Bed Mobility, Benefits of In-Hospital Mobility, Lower Extremity Dressing, Lower Extremity Bathing, Precautions/Restrictions, Positioning, Role of Occupational Therapy, Transfer - [...] Harris DATE: November 17, 2024 TIME: 11:06 [facility] POSTPROC EVALon [id number] POSTPROC EVALHNO ID: [id number] Author: JOSE RAHMAN MD Service: Anesthesiology Author Type: Anesthesiologist Type: Anesthesia Postprocedure Evaluation Filed: 11/16/2024 13:18 Note Text: POST ANESTHESIA EVALUATION NOTE : 1965 Procedure Summary Date: 11/16/24 Room / Location: OR / OR Anesthesia Start: 0742 Anesthesia Stop: 1023 Procedure: CERVICAL LAMINOPLASTY WITH [...] November 16, 2024 TIME: 1:18 PM CSN: [id number] PRE-OPon [id number] PRE-OPHNO ID: [id number] Author: JOSE RAHMAN MD Service: Anesthesiology Author Type: Anesthesiologist Type: Anesthesia Preprocedure Evaluation Filed: 11/16/2024 07:01 Note Text: ANESTHESIOLOGY DAY OF SURGERY NOTE : 1965 Procedure Information Date/Time: 11/16/24729 Procedure: CERVICAL LAMINOPLASTY WITH DECOMPRESSION 2 OR MORE SEGMENTS (Neck) - C3-5 laminoplasty Location: [facility] OR04 / [facility] OR Surgeons: Jus Wisdom MD Estimated body [...] and consent discussed: yes. Patient / Responsible Alliance Party agrees to proceed: yes Patient / Surrogate [...] none. Vitals Value Taken Time BP 119/77 11/16/24 0649 Pulse 58 11/16/24 0649 Resp 18 11/16/24 0649 Temp 36.4 ?C (97.5 ?F) 11/16/24 0649 SpO2 100 % 11/16/2449 Facility-Administered Medications as of 11/16/2024 Medication Dose [...] November 16, 2024 TIME: 6:57 AM CSN: [id number] HospitalBRIEF OP NOTon 11-16-2024 BRIEF OP NOTHNO ID: [id number] Author: ELLIE RASHID MD Service: Neurosurgery Author Type: Fellow Type: Brief Op Note Filed: 11/16/2024 10:32 Note Text: SPINE SURGERY BRIEF OP NOTE PATIENT NAME: Bee Harris DOS: 11/16/2024 Preop Diagnosis: Cervical Myelopathy Postop Diagnosis: same Procedure(s): C3-C5 laminoplasty Attending Surgeon: Jus Wisdom MD Cash Processor(s): Ellie Rashid, PGY-6 Drains: HVAC x1 Specimens: [...] spine team. Ellie Rashid MD PGY-6 Spine FellowNoRegency Hospital Cleveland WestCONSULTon 11-48-1321SJIJABYAAA ID: [id number] Author: KARINA WOODSON MD Service: General Internal Medicine Author Type: Physician Type: Consults Filed: 11/16/2024 16:01 Note Text: MEDICINE INITIAL CONSULT NOTE SERVICE DATE: 11/16/2024 SERVICE TIME: 3:57 PM REASON FOR CONSULT: Postop medical care REQUESTING PHYSICIAN: Artis PRIMARY CARE PHYSICIAN: DO Binh Rolon Mr. Harris is a 59 year old [...] the morning, Disp: , Rfl: , 11/15/2024 HYDROcodone-Acetaminophen (NORCO) 7.5-325 mg per tablet, Take 1 [...] reviewed for today's visit: No new labs Impression/Recommendations Principal Problem: Cervical spondylosis with myelopathy (POA: Yes) Assessment AND Plan: Status post surgery today. Patient is medically stable this time. Medical conditions include: History of tobacco use. Encourage smoking cessation. Continue with incentive spirometry. Hypertension. Will monitor BP throughout hospital stay. Hyperlipidemia. Continue atorvastatin. Will follow. Thanks. Medication and Non-Pharmacologic VTE Prophylaxis/Anticoagulants Anticoagulant AND Antiplatelet Medications (From admission, onward) Start Dose Route Frequency Last Action Ordered Stop 11/18/24 0900 heparin 5,000 Units injection (Surgical Risk Categories) 5,000 Units SUBCUTANEOUS EVERY 12 HOURS Ordered 11/16/24 11 (more content not included)...[facility] NOon [id number] NOHNO ID: [id number] Author: JUS WISDOM MD Service: Neurosurgery Author Type: Physician Type: Operative Report Filed: 11/16/2024 16:21 Note Text: Operative NOTE LOG ID: [id number] Surgery/Procedure Date: 11/16/2024 Incision/Procedure Start Time: 8:26 AM Incision Close/Procedure End Time: 9:57 AM Surgeon(s)/Proceduralist(s) and Cash Processor(s): Surgeons and Role: * Jus Wisdom MD - Primary * Ellie Rashid MD - Fellow Pre-Op/Pre-Procedure Diagnosis: cervical myelopathy Post-Op/Post-Procedure Diagnosis: same Procedure(s): Cervical laminoplasty C3-5 Anesthesia: General Estimated Blood Loss: 100 mls Specimens Removed: * No specimens in log * Drain: Implant Name Type Inv. Item Serial No. Shingle Grader Lot No. LRB No. Used Action BIT CANOPY 1.4MM DRILL - [id number] Bit BIT CANOPY 1.4MM DRILL [employer] N/A 1 Non-Implant SCREW CANOPY 2.6MM 4MM BONE SELF DRILL LAMINOPLASTY SPINE - [id number] Screw SCREW CANOPY 2.6MM 4MM BONE SELF [...] the patient was placed in a Khan head loft worker, positioned prone and fixed to the Khan [...] Dr. Rachid MD performed the role of assistant spa director as no qualified residents were available. He performed surgical exposure, assisted in decompression and instrumentation, and performed wound closure under direct supervision by primary surgeon Jus Wisdom MD . Dr. Jus Wisdom MD was scrubbed in an performed all critical portions of the procedure and was immediately available in the immediate pre-operative and post-operative period. Jus Wisdom MD Spine Surgery.[facility] HospitalXR CERVICAL SPECIFY 1Von [id number] CERVICAL SPECIFY 1V* * *Final Report* * * DATE OF EXAM: Nov 16 2024 9:42AM [facility] [place] - XR CERVICAL SPECIFY 1V / PROCEDURE REASON: Cervical spinal stenosis * * * * Physician Interpretation * * * * Indication: Cervical spinal stenosis X-ray cervical spine 11/16/2024 at 0845 hours IMPRESSION: Counting reference: Craniocervical junction. Anatomic Variants: None. Lateral intraoperative x-ray of the cervical spine is performed. Hardware is noted overlying the lamina of C3, C4 and C5. Qa Specialist: [facility] HOSPITALMakayla Transcribe Date/Time: Nov 17 2024 3:13P Dictated by : AISSATOU SCOTT MD This examination was interpreted and the report reviewed and electronically signed by: AISSATOU SCOTT MD on Nov 17 2024 3:14PM EST [id number] Medical Specialty Hospital - Columbus SouthXR CERVICAL SPECIFY 1V* * *Final Report* * * DATE OF EXAM: Nov 16 2024 8:16AM [facility] – [place] [facility] - XR CERVICAL SPECIFY 1V / [...] phone and Skype during the surgical procedure. Qa Specialist: [facility] Transcribe Date/Time: Nov 16 2024 8:48A Dictated by : TAMIR FORD MD This examination was interpreted and the report reviewed and electronically signed by: TAMIR FORD MD on Nov 16 2024 8:50AM EST [id number]_[facility]tering [facility] SpringfieldXR VERIFY LEVEL W-AHOBL-YOjn [id number] VERIFY LEVEL C-SPINE-NB* * *Final Report* * * DATE OF [...] phone and Skype during the surgical procedure. Qa Specialist: [facility] Transcribe Date/Time: Nov 16 2024 8:48A Dictated by : TAMIR FORD MD This examination was interpreted and the report reviewed and electronically signed by: TAMIR FORD MD on Nov 16 2024 8:50AM EST [id number]_IDCACFort Hamilton HospitalCNNURSEon 81-00-2609CFCEXLJRhrzu Visit (SPNSMN) BEE HARRIS ([id number]) 1965 M Date Time Provider Department 11/14/24 3:00 PM DEVAUGHN VAZQUEZ SPNSMN During your visit today, we recorded the following information about you: Devaughn Vazquez RN 11/14/2024 9:33 AM Signed Neuro SPINE CARE COORDINATION PRE-OP PHONE VISIT Met with patient for pre op education. Given both written and verbal instructions re : Skin prep, wound care, pain management and post op restrictions. Provided to patient: [facility] Surgery Guide, skin prep supplies, Spine Surgery [...] Devaughn Vazquez RN Referring Provider: JUS WISDOM [[id number]] Allergies As of Date: 11/14/2024 (No Known Allergies) Date Reviewed: 11/09/2024 Reviewed by: Ernie Rankin APRN.[employer] - Fully Assessed Primary Visit Diagnosis:Spinal stenosis in cervical region [M48.02] Prescriptions as of 11/14/2024 - atorvastatin (LIPITOR) 40 mg tablet Take 40 mg by mouth once daily. - cyanocobalamin (VITAMIN B-12) 1,000 mcg tab take 1 tablet (1,000 mcg total) by mouth in the morning - HYDROcodone-Acetaminophen (NORCO) 7.5-325 mg per tablet Take [...] 02/15/2024 Encounter Status:Closed by DEVAUGHN VAZQUEZ on 11/14/24NoM[facility] 53-11-1173PTGZRodajdjvm (CARINAMN) BEE HARRIS ([id number]) 1965 M Date Time Provider Department 11/01/24 JUS WISDOMMN During your visit today, we recorded the following information about you: Devaughn Vazquez RN 11/01/2024 3:58 PM Signed Neuro SPINE CARE COORDINATION QUICK NOTE Call to the pt and he is not interested in sooner OR date at this time. Pt currently scheduled for 11-16-24 with Erendira Sierra 11/07/2024 9:16 AM Signed Patient is calling back to speak with the nurse pertaining to below message, upcoming surgery call back [phone] Devaughn Vazquez RN 11/07/2024 11:00 AM Addendum [...] Date Reviewed: 10/25/2024 Reviewed by: Justin Boo APRN.[employer] - Fully Assessed Reason for Visit: Patient Question [8117] Prescriptions as of 11/15/2024 - atorvastatin (LIPITOR) 40 mg tablet Take 40 mg by mouth once daily. - cyanocobalamin (VITAMIN B-12) 1,000 mcg tab take 1 tablet (1,000 mcg total) by mouth in the morning - HYDROcodone-Acetaminophen (NORCO) 7.5-325 mg per tablet Take [...] 02/15/2024 Encounter Status:Closed by DEVAUGHN VAZQUEZ on 11/01/24NormalCSelect Medical [facility] W Auto Differential panel (Bld)on 88-13-9323Ylmqahedq (Bld) [#/Vol] 0.08 10*3/uLNormal<0.11CWyandot Memorial HospitalComformerly [facility] on above:Order Comment: Specimen Type: BLOOD SPECIMEN Ordering Facility: [facility] Address: [address] [place], [place] [address]Performed By: #### 2276-4, 82358-4 #### [facility] CLIA [id number] [address] [place] [address] [place] [address] [place] AMERICABasophils/100 WBC (Bld)0.9 % NormalOhio Valley Hospital on above:Order Comment: Specimen Type: BLOOD SPECIMEN Ordering Facility: [facility] Address: [address] [place], [place] [address]Performed By: #### 2276-4, 89919-6 #### [facility] CLIA [id number] [address] [place] [address] [place] AMERICADifferential cell count method Nom (Bld)AutoNormalCGuernsey Memorial Hospital on above:Order Comment: Specimen Type: BLOOD SPECIMEN [facility]ing Facility[facility] Address: [address] [place], [place] [address]Performed By: #### 2276-4, 61163-7 #### [facility] CLIA [id number] [address] [place] [address] [place] AMERICAEosinophils (Bld) [#/Vol] 0.16 10*3/uLNormal<0.46[facility] on above:Order Comment: Specimen Type: BLOOD SPECIMEN [facility] Facility[facility] Address: [address] [place], [place] [address]Performed By: #### 2276-4, 93174-7 #### [facility] CLIA [id number] [address] [place] [address] [place] AMERICAEosinophils/100 WBC (Bld)1.7 %NormalOhio Valley Hospital on above:Order Comment: Specimen Type: BLOOD SPECIMEN [facility] Facility[facility] Address: [address] [place], [place] [address]Performed By: #### 2276-4, 49225-7 #### [facility] CLIA [id number] [address] [place] [address] [place] AMERICAErythrocyte distribution width (RBC) [Ratio]13.9 %Esbuzs55.5-15.0[facility] on above:Order Comment: Specimen Type: BLOOD SPECIMEN Order[facility] Facility[facility] Address: [address] [place], [place] [address]Performed By: #### 2276-4, 02517-2 #### [facility] CLIA [id number] [address] [place] [address] [place] AMERICAHematocrit (Bld) [Volume fraction]42.4 %Kgijfb69.0-51.0[facility] on above:Order Comment: Specimen Type: BLOOD SPECIMEN Order[facility] Facility: [facility] Address: [address] [place], [place] [address]Performed By: #### 2276-4, 39998-0 #### [facility] CLIA [id number] [address] [place] [address] [place] AMERICAHemoglobin (Bld) [Mass/Vol] 14.1 g/kIEsdzmg09.0-17.0[facility] on above:Order Comment: Specimen Type: BLOOD SPECIMEN Order[facility] Address: [address] [place], [place] [address]Performed By: #### 2276-4, 19298-0 #### [facility] CLIA [id number] [address] [place] [address] [place] AMERICAImmature granulocytes (Bld) [#/Vol]10*3/uLNormal<0.10[facility] on above:Order Comment: Specimen Type: BLOOD SPECIMEN Order[facility] Facility[facility] Address: [address] [place], [place] [address]Performed By: #### 2276-4, 87686-0 #### [facility] CLIA [id number] [address] [place] [address] [place] AMERICAImmature granulocytes/100 WBC (Bld)0.2 %NormalOhio Valley Hospital on above:Order Comment: Specimen Type: BLOOD SPECIMEN Ordering Facility[facility] Address: [address] [place], [place] [address]Performed By: #### 2276-4, 14914-8 #### [facility] CLIA [id number] [address] [place] [address] [place] AMERICALymphocytes (Bld) [#/Vol] 2.35 10*3/uLNormal1.00-4.00[facility] on above:Order Comment: Specimen Type: BLOOD SPECIMEN Order[facility] Address: [address] [place], [place] [address]Performed By: #### 2276-4, 21722-7 #### [facility] CLIA [id number] [address] [place] [address] [place] AMERICALymphocytes/100 WBC (Bld) 25.5 %NormalOhio Valley Hospital on above:Order Comment: Specimen Type: BLOOD SPECIMEN Ordering Facility[facility] Address: [address] [place], [place] [address]Performed By: #### 2276-4, 75510-6 #### [facility] CLIA [id number] [address] [place] [address] OF [facility] (RBC) [Entitic mass]33.1 cjCujcmu37.0-34.0[facility] on above:Order Comment: Specimen Type: BLOOD SPECIMEN Order[facility] Facility[facility] Address: [address] [place], [place] [address]Performed By: #### 2276-4, 83410-6 #### [facility] CLIA [id number] [address] [place], [place] [address] [facility] (RBC) [Mass/Vol]33.3 g/wARxqstm32.5-36.0[facility] on above:Order Comment: Specimen Type: BLOOD SPECIMEN Ordering Facility[facility] Address: [address] [place], [place] [address]Performed By: #### 2276-4, 75182-5 #### [facility] CLIA [id number] [address] [place] [address] [place] AMERICAMCV (RBC) [Entitic vol]99.5 yQRsrosv44.0-100.0[facility] on above:Order Comment: Specimen Type: BLOOD SPECIMEN Ordering Facility[facility] Address: [address] [place], [place] [address]Performed By: #### 2276-4, 38116-7 #### [facility] CLIA [id number] [address] [place] [address] [place] AMERICAMonocytes (Bld) [#/Vol]1.02 10*3/uLHigh<0.87[facility] on above:Order Comment: Specimen Type: BLOOD SPECIMEN Order[facility] Address: [address] [place], [place] [address]Performed By: #### 2276-4, 19412-4 #### [facility] [place] [id number] [address] [place] [address] [place] AMERICAMonocytes/100 WBC (Bld)11.1 %NormalOhio Valley Hospital on above:Order Comment: Specimen Type: BLOOD SPECIMEN Order[facility] Facility[facility] Address: [address] [place], [place] [address]Performed By: #### 2276-4, 67389-4 #### [facility] [place] [id number] [address] [place] [address] [place] AMERICANeutrophils (Bld) [#/Vol] 5.59 10*3/uLNormal1.45-7.50[facility] on above:Order Comment: Specimen Type: BLOOD SPECIMEN Order[facility] Address: [address] [place], [place] [address]Performed By: #### 2276-4, 87561-6 #### [facility] CLIA [id number] [address] [place] [address] [place] AMERICANeutrophils/100 WBC (Bld) 60.6 %NormalOhio Valley Hospital on above:Order Comment: Specimen Type: BLOOD SPECIMEN Order[facility] Address: [address] [place], [place] [address]Performed By: #### 2276-4, 75544-1 #### [facility] CLIA [id number] [address] [place] [address] [place] AMERICANucleated RBC (Bld) [#/Vol] 10*3/uLNormal<0.01[facility] on above:Order Comment: Specimen Type: BLOOD SPECIMEN Order[facility] Address: [address] [place], [place] [address]Performed By: #### 2276-4, 08866-8 #### [facility] CLIA [id number] [address] [place] [address] [place] AMERICANucleated RBC/100 WBC (Bld) [Ratio]0.0 /100 WBCNormalCGuernsey Memorial Hospital on above:Order Comment: Specimen Type: BLOOD SPECIMEN [facility] Address: [address] [place], [place] [address]Performed By: #### 2276-4, 43408-5 #### [facility] CLIA [id number] [address] [place] [address] [place] AMERICAPlatelet mean volume (Bld) [Entitic vol]10.3 fLNormal9.0-12.7CGuernsey Memorial Hospital on above: Order Comment: Specimen Type: BLOOD SPECIMEN [facility] Address: [address] [place], [place] [address]Performed By: #### 2276-4, 85121-6 #### [facility] CLIA [id number] [address] [place] [address] [place] AMERICAPlatelets (Bld) [#/Vol]180 10*3/vYGmtjpu037-873IacacxrxsOhio Valley Hospital on above:Order Comment: Specimen Type: BLOOD SPECIMEN Ordering Facility[facility] Address: [address] [place], [place] [address] [address]Performed By: #### 2276-4, 95883-0 #### [facility] CLIA [id number] [address] [place], [place] [address]RB (Bld) [#/Vol]4.26 10*6/uLNormal4.20-6.00[facility] on above:Order Comment: Specimen Type: BLOOD SPECIMEN Ordering Facility[facility] Address: [address] [place] [address] [place], [place] [address]Performed By: #### 2276-4, 23492-4 #### [facility] CLIA [id number] [address] [place], [place] [address]W (Bld) [#/Vol]9.22 10*3/uLNormal3.70-11.00[facility] on above:Order Comment: Specimen Type: BLOOD SPECIMEN Ordering Facility: [facility] Address: [address] [place], [place] [address] [address]Performed By: #### 2276-4, 30707-7 #### [facility] CLIA [id number] [address] [place], [place] [address]CNOVon 56-22-6651WJIKIiryso Visit ([facility]) BEE HARRIS ([id number]) 1965 M Date Time Provider Department 10/25/24 3:40 PM JUS WISDOM [facility] During your visit today, we recorded the following information about you: Pulse Blood pressure 68/minute 162/84 Jus Wisdom MD 10/25/2024 1:47 PM Signed SPINE SURGERY [...] BICEPS TRICEPS DELTS Wrist Ext Wrist Flex Service Station Attendant HI R 5 5 5 5 5 [...] with the patient or the patient?s personal access services representative. Discussed goals of surgery Halt progression [...] correctable findings B. Conservative (more content not included)...NormalKettering Health Behavioral Medical Center CONFIRM BLOOD TYPEon 74-90-3914OMKIIzidrgIcerghtkfGuernsey Memorial Hospital on above:Order Comment: Specimen Type: BLOOD SPECIMEN Order[facility] Address: [address] [place], [place] [address]Performed By: #### 2276-4, 91435-1 #### [facility] CLIA [id number] [address] [place] [address] [place] AMERICARh Nom (Bld)PositiveNormal [facility] on above:Order Comment: Specimen Type: BLOOD SPECIMEN [facility] Address: [address] [place], [place] [address]Performed By: #### 2276-4, 51326-6 #### [facility] CLIA [id number] [address] [place] [address] [place] AMERICAComprehensive metabolic 2000 panelon 18-77-8300Vwpnwua [Mass/Vol]4.4 g/dLNormal3.9-4.9CGuernsey Memorial Hospital on above:Order Comment: Specimen Type: BLOOD SPECIMEN Order[facility] Address: [address] [place], [place] [address]Performed By: #### 2276-4, 85204-4 #### [facility] CLIA [id number] [address] [place] [address] [place] AMERICAALP [Catalytic activity/Vol] 74 U/IOvozes45-620PdkjvizacOhio Valley Hospital on above:Order Comment: Specimen Type: BLOOD SPECIMEN [facility] Address: [address] [place], [place] [address]Performed By: #### 2276-4, 40406-9 #### [facility] CLIA [id number] [address] [place], [place] [address] [place] AMERICAALT [Catalytic activity/Vol] 25 U/NLooexy70-22TsrlupyhxOhio Valley Hospital on above:Order Comment: Specimen Type: BLOOD SPECIMEN Order[facility] Address: [address] [place], [place] [address]Performed By: #### 2276-4, 88309-4 #### [facility] CLIA [id number] [address] [place], [place] [address] [place] AMERICAAnion gap [Moles/Vol]10 mmol/LNormal8-15[facility] on above:Order Comment: Specimen Type: BLOOD SPECIMEN [facility] Address: [address] [place], [place] [address]Performed By: #### 2276-4, 70893-2 #### [facility] CLIA [id number] [address] [place] [address] [place] AMERICAAST [Catalytic activity/Vol] 28 U/ZZakdyq15-97OztycdnffOhio Valley Hospital on above:Order Comment: Specimen Type: BLOOD SPECIMEN [facility] Address: [address] [place], [place] [address]Performed By: #### 2276-4, 73937-3 #### [facility] CLIA [id number] [address] [place] [address] [place] AMERICABilirubin [Mass/Vol]0.4 mg/dLNormal0.2-1.3CGuernsey Memorial Hospital on above:Order Comment: Specimen Type: BLOOD SPECIMEN Order[facility] Facility[facility] Address: [address] [place], [place] [address]Performed By: #### 2276-4, 44600-5 #### [facility] CLIA [id number] [address] [place] [address] [place] AMERICACalcium [Mass/Vol]9.2 mg/dL Normal8.5-10.2CGuernsey Memorial Hospital on above:Order Comment: Specimen Type: BLOOD SPECIMEN [facility] Address: [address] [place], [place] [address]Performed By: #### 2276-4, 03377-1 #### [facility] CLIA [id number] [address] [place], [place] [address] [place] AMERICAChloride [Moles/Vol]109 mmol/RGtks28-093NfzeozbhlOhio Valley Hospital on above:Order Comment: Specimen Type: BLOOD SPECIMEN [facility] Address: [address] [place], [place] [address]Performed By: #### 2276-4, 99486-8 #### [facility] CLIA [id number] [address] [place], [place] [address] [place] AMERICACO2 [Moles/Vol]22 mmol/L Aghhho90-30CakywneiiOhio Valley Hospital on above:Order Comment: Specimen Type: BLOOD SPECIMEN [facility] Address: [address] [place], [place] [address]Performed By: #### 2276-4, 93057-2 #### [facility] CLIA [id number] [address] [place] [address] [place] AMERICACreatinine [Mass/Vol]0.89 mg/dLNormal0.73-1.22[facility] on above:Order Comment: Specimen Type: BLOOD SPECIMEN [facility] Address: [address] [place], [place] [address]Performed By: #### 2276-4, 38502-3 #### [facility] CLIA [id number] [address] [place] [address] [place] AMERICACreatinine and Glomerular filtration rate.predicted panel (S/P/Bld)100 mL/min/1.73m???Normal>=60[facility] on above:Order Comment: Specimen Type: BLOOD SPECIMEN [facility] Address: [address] [place], [place] [address]Result Comment: Estimated Glomerular Filtration Rate (eGFR) is calculated using the 2020 CKD-EPI cre atinine equation. This equation utilizes serum creatinine, sex, and age as parameters. The creatinine assay has traceable calibration to isotope dilution- mass spectrometry. Refer to KDIGO guidelines for clinical interpretation. In patients with unstable renal function, e.g. those with acute kidney injury, the eGFR may not accurately reflect actual GFR.Performed By: #### 2276-4, 23971-9 #### [facility] CLIA [id number] [address] [place] [address] [place] AMERICAGlucose [Mass/Vol]88 mg/dL Ofkaws08-29ParszgehgOhio Valley Hospital on above:Order Comment: Specimen Type: BLOOD SPECIMEN Order[facility] Address: [address] [place], [place] [address]Result Comment: The [place] Diabetes Association (ADA) provides guidance for cutoff [...] Standards of Medical Care in Diabetes 2016, [place] Diabetes Association. Diabetes Care. 2016.39(Suppl 1).Performed By: #### 2276-4, 81540-8 #### [facility] CLIA [id number] [address] [place] [address] [place] OF AMERICAPotassium [Moles/Vol]4.3 mmol/LNormal3.7-5.1CGuernsey [facility] on above:Order Comment: Specimen Type: BLOOD SPECIMEN Ordering Facility: [facility] Address: [address] [place] [address]Oriedfeao By: #### 2276-4, 66120-4 #### [facility] CLIA [id number] [address] [place] [address] [place] AMERICAProtein [Mass/Vol]6.7 g/dL Normal6.3-8.0[facility] on above:Order Comment: Specimen Type: BLOOD SPECIMEN Ordering Facility: [facility] Address: [address] [place], [place] [address]Performed By: #### 2276-4, 87034-2 #### [facility] CLIA [id number] [address] [place] [address] [place] OF AMERICASodium [Moles/Vol]141 mmol/L Jamszf664-551AusktucgmOhio Valley Hospital on above:Order Comment: Specimen Type: BLOOD SPECIMEN Ordering Facility: [facility] Address: [address] [place], [place] [address]Performed By: #### 2276-4, 28237-4 #### [facility] CLIA [id number] [address] [place] [address] [place] AMERICAUrea nitrogen [Mass/Vol]16 mg/dLNormal9-24[facility] on above:Order Comment: Specimen Type: BLOOD SPECIMEN [facility]ing Facility[facility] Address: [address] [place], [place] [address]Performed By: #### 2276-4, 57433-6 #### [facility] CLIA [id number] [address] [place] [address] [place] OF AMERICAECG COMPLETEon 79-49-2758JTR COMPLETEVentricular Rate : 63 BPM Atrial Rate : 63 BPM P-R Interval : 174 ms QRS Duration : 104 ms Q-T Interval : 428 ms QTC Calculation(Bazett) : 437 ms Calculated P Poynette : 69 degrees Calculated R [place] : 36 degrees Calculated T [place]te : 54 degrees NORMAL SINUS RHYTHM NORMAL ECG NO PREVIOUS ECGS AVAILABLE Confirmed by RHINA CAMP MD ([id number]) on 10/29/2024 2:10:09 PM NAME : BEE HARRIS PID : [id number] : 1965 Gender : Male Race : ORD : [id number] Procedure Date : Oct 25 2024 13:58:02 Edit Date : Oct 29 2024 14:10:12 Diagnosis: NORMAL SINUS RHYTHM NORMAL ECG NO PREVIOUS ECGS AVAILABLE Confirmed by RHINA CAMP MD ([id number]) on 10/29/2024 2:10:09 PM Test Reason : Location : 670 : [facility] Overread By : RHINA CAMP MD Edited By : RHINA CAMP MD Referred By : JUS WISDOM Acquired by : Nancy singhKettering Health Behavioral Medical CenterFerritin SerPl-mCncon 04-75-5393Pfapjham [Mass/Vol]95.4 ng/jDKklegd39.3-565.7CWyandot Memorial HospitalComformerly [facility] on above:Order Comment: Specimen Type: BLOOD SPECIMEN [facility] Address: [address] [place], [place] [address]Performed By: #### 2276-4, 69721-7 #### [facility] CLIA [id number] [address] [place] [address] [address]ETHISTORY PHYSICALon 78-57-4756JDKAPUT PHYSICALHNO ID: [id number] Author: JUSTIN BOO APRN.[employer] Service: ? Author Type: Nurse Practitioner Type: [...] have a large neck STOP-Bang Score: 2 [id number]-EFAt Score: Age: <65 Sex: Female CHF history: No Hypertension history: Yes Stroke/TIA/thromboembolism history: No Vascular disease history: No Diabetes history: No RVW8LC8-NJVd Score: 2 I - PHYSICAL EVALUATION AIRWAY Patient intubated: No. Tracheostomy tube not present Mallampati: II. TM distance: >3 FB. Neck ROM: full ROM without neurological symptoms. Mouth opening: adequate. Short neck: no. Thick neck: no Walters present: no Upper lip bite test: unable to assess- not wearing dentures. Microretrognathia/Micronagthia/Recessed Chin: No DENTAL Dentures, upper: complete. Dentures, [...] procedure. [facility] or Procedure:: Gnosticism Status of surgery/procedure:: Scheduled Date of surgery/procedure:: [...] requesting physician by way (more content not included)...NormalKettering Health Behavioral Medical CenterIron and Iron binding capacity panelon 59-70-0856Ohle [Mass/Vol]123 ug/pUUyoiob73-251FgwprdkhbOhio Valley Hospital on above:Order Comment: Specimen Type: BLOOD SPECIMEN [facility] Address: [address] [place], [place] [address]Performed By: #### 2276-4, 15744-7 #### [facility] CLIA [id number] [address] [place] [address] OF [facility] MEDICAL CENTERIron binding capacity [Mass/Vol]254 ug/gFIlsmsk531-708DprbqmbdnOhio Valley Hospital on above:Order Comment: Specimen Type: BLOOD SPECIMEN [facility] Address: [address] [place], [place] [address]Performed By: #### 2276-4, 11169-3 #### [facility] CLIA [id number] [address] [place] [address] [place] AMERICAIron/TIBC [Molar ratio]48.4 %Yaarja42.0-57.0[facility] on above:Order Comment: Specimen Type: BLOOD SPECIMEN [facility]ing [facility] Address: [address] [place], [place] [address]Performed By: #### 2276-4, 72024-2 #### [facility] CLIA [id number] [address] [place] [address] [place] AMERICARetics #on 10-25-2024 Reticulocytes (Bld) [#/Vol]0.57668 10*3/uLNormal0.018-0.100[facility] on above:Order Comment: Specimen Type: BLOOD SPECIMEN Order[facility] Address: [address] [place], [place] [address]Performed By: #### 2276-4, 04493-2 #### [facility] CLIA [id number] [address] [place] [address] [place] AMERICAReticulocytes (Bld) [#/Vol] on 95-42-0881Atakwvhcyp Auto (Reticulocytes) [Entitic mass]36.6 fgSoum37.0-36.0 [facility] on above:Order Comment: Specimen Type: BLOOD SPECIMEN Ordering [facility] Address: [address] [place], [place] [address]Performed By: #### 2276-4, 10258-8 #### [facility] CLIA [id number] [address] [place] [address] [place] AMERICAImmature reticulocytes/Total reticulocytes (Bld)10.6 %Normal2.0-13.5CGuernsey Memorial Hospital on above:Order Comment: Specimen Type: BLOOD SPECIMEN [facility] Address: [address] [place], [place] [address]Performed By: #### 2276-4, 99358-0 #### [facility] CLIA [id number] [address] [place] [address] [place] AMERICAReticulocytes/100 RBC (Bld) 1.4 %Normal0.4-2.0[facility] on above:Order Comment: Specimen Type: BLOOD SPECIMEN Order[facility] Address: [address] [place], [place] [address]Performed By: #### 2276-4, 48257-1 #### [facility] CLIA [id number] [address] [place] [address] [place] AMERICASTAPHYLOCOCCUS AUREUS AND MRSA SCREEN, PCR, NASALon 10-25-2024S. aureus and MRSA panel LAINA+probe (Nose)Not detectedNormalNot DetectedOhio Valley Hospital on above:Order Comment: Specimen Type: SWAB Order[facility] Address: [address] [place], [place] [address]Performed By: #### SAPCR #### [facility] CLIA [id number] [address] [place] [address] [place] AMERICATYPE AND SCREEN,30 DAYon 83-91-6349VKZYJgwurmZdjilqqfxGuernsey Memorial Hospital on above:Order Comment: Specimen Type: BLOOD SPECIMEN [facility] Address: [address] [place], [place] [address]Performed By: #### 2276-4, 98419-8 #### [facility] CLIA [id number] [address] [place] [address] [place] AMERICARh Nom (Bld)PositiveNormal [facility] on above:Order Comment: Specimen Type: BLOOD SPECIMEN [facility] Address: [address] [place], [place] [address]Performed By: #### 2276-4, 70301-3 #### [facility] CLIA [id number] [address] [place] [address] OF [facility] MEDICAL CENTERCNPNon 50-56-3395KULU Telephone (NIQ) BEE HARRIS ([id number]) 1965 M Date Time Provider Department 10/18/24 JUS WISDOM NIYasmin During your visit today, we recorded the [...] appointment: 10/25/2024 Best number to reach caller: [phone] Best time to reach caller: any Is it OK to leave a detailed voice message? Yes Devaughn Cox, RN 10/18/2024 2:05 PM Signed Neuro SPINE CARE COORDINATION QUICK NOTE Call to the pt and reviewed questions Allergies As of Date: 10/18/2024 (No Known Allergies) Date Reviewed: 10/11/2024 Reviewed by: Eloise Edgar OCCA - Fully Assessed Reason for Visit: Patient Question [9137] Preparations For Surgery [898] Prescriptions as of 10/18/2024 - atorvastatin (LIPITOR) 40 mg tablet Take 40 mg by mouth. - cyanocobalamin (VITAMIN B-12) 1,000 mcg tab take 1 tablet (1,000 mcg total) by mouth in the morning - HYDROcodone-Acetaminophen (NORCO) 7.5-325 mg per tablet Take [...] 02/15/2024 Encounter Status:Closed by DEVAUGHN VAZQUEZ on 10/18/24NoThe Christ HospitalCNDONNIEon 33-44-6144SMMXWdmyeyihq (NIQ) BEE HARRIS ([id number]) 1965 M Date Time Provider Department 10/12/24 JUS WISDOM During your visit today, we recorded the following information about you: Erendira Tay 10/12/2024 1:05 PM Signed Call received for Jus Wisdom MD regarding Bee Harris. Caller: Cassi with [facility] Patient Identified by Name and [...] 10/25/2024 Best number to reach caller: Cassi [phone] Best time to reach caller: 8 am till 4 pm Is it OK to leave a detailed voice message? Yes Devaughn Chairez RN 10/13/2024 8:24 AM Addendum Neuro SPINE CARE COORDINATION QUICK NOTE Pt pending C3-5 laminoplasty on 11-16-24 PM would like to proceed with SI joint injection Will review with team- as per ENVIRONMENTAL COMPLIANCE SPECIALIST no contraindications to proceeding with SI joint injection. Call to PM and update provided to Cassi (RN) Allergies As of Date: 10/12/2024 (No Known Allergies) Date Reviewed: 10/11/2024 Reviewed by: Eloise Edgar OCCA - Fully Assessed Reason for Visit: Patient Question [4017] Prescriptions as of 10/13/2024 - atorvastatin (LIPITOR) 40 mg tablet Take 40 mg by mouth. - cyanocobalamin (VITAMIN B-12) 1,000 mcg tab take 1 tablet (1,000 mcg total) by mouth in the morning - HYDROcodone-Acetaminophen (NORCO) 7.5-325 mg per tablet Take [...] 02/15/2024 Encounter Status:Closed by DEVAUGHN VAZQUEZ on 10/13/24[facility] 03-30-6584FAKWVhlqfc Visit ([facility]) BEE HARRIS ([id number]) 1965 M Date Time Provider Department 10/11/24 11:00 AM JUS WISDOM [facility] During your visit today, we recorded the [...] 5-14 Normal: PHQ-9 < 5 Data from [facility] Epic on prior therapies: Last PT session: [...] BICEPS TRICEPS DELTS Wrist Ext 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 Discussed goals of surgery Halt progression [...] trialed in a meanin (more content not included)...NormalKettering Health Behavioral Medical CenterCNPNon 17-05-2291EFFYBbcbwkbez (SPNSMN) BEE HARRIS ([id number]) 1965 M Date Time Provider Department 10/11/24 JUS WISDOM During your visit today, we [...] total) by mouth in the morning - HYDROcodone-Acetaminophen (NORCO) 7.5-325 mg per tablet Take [...] 02/15/2024 Encounter Status:Closed by DEVAUGHN VAZQUEZ on 10/11/24NoSam[facility] CERVICAL SPINE WO IVCONon 47-38-0415AZ CERVICAL SPINE WO IVCON* * *Final Report* * * DATE OF [...] Counting reference: Craniocervical junction. Anatomic Variants: None. Plumbing Service Technician (topogram) images: Unremarkable. Alignment: Cervical dextrocurvature centered [...] vertebrae with counting from the craniocervical junction. Qa Specialist: LIANA Transcribe Date/Time: Oct 11 2024 11:12A Dictated by : ERROL INGRAM MD This examination was interpreted and the report reviewed and electronically signed by: ERROL INGRAM MD on Oct 11 2024 11:23AM EST [id number] Medical Center Cervical spine WO contraston 75-33-7744UHLDAXAATQ: Multilevel cervical spondylosis as described, not significantly changed from 06/23/2024. Up to moderate canal stenosis at C3-4 and C4-5. Scattered high-grade foraminal stenoses as described. Ovoid hyperdensity along the LEFT floor of mouth most likely corresponds to chewing gum. Anatomic Variant: None. Assume 7 cervical vertebrae with counting from the craniocervical junction. Qa Specialist: PSCB Transcribe Date/Time: Oct 11 2024 11:12A Dictated by : ERROL INGRAM MD This examination was interpreted and the report reviewed and electronically signed by: ERROL INGRAM MD on Oct 11 2024 11:23AM EST DIVISION OF RADIOLOGY* * *Final Report* * * DATE OF EXAM: Oct 11 2024 9:26AM [facility] - CT CERVICAL SPINE WO IVCON [...] Counting reference: Craniocervical junction. Anatomic Variants: None. Plumbing Service Technician (topogram) images: Unremarkable. Alignment: Cervical dextrocurvature centered [...] RIGHT neural foramen is patent. DIVISION OF RADIOLOGYProvider, [facility] [place] - 10/11/2024 * * *Final Report* * * DATE OF EXAM: Oct 11 2024 9:26AM [facility] - CT CERVICAL SPINE WO IVCON [...] Counting reference: Craniocervical junction. Anatomic Variants: None. Plumbing Service Technician (topogram) images: Unremarkable. Alignment: Cervical dextrocurvature centered [...] vertebrae with counting from the craniocervical junction. Qa Specialist: [facility] Transcribe Date/Time: Oct 11 2024 11:12A Dictated by : ERROL INGRAM MD This examination was interpreted and the report reviewed and electronically signed by: ERROL INGRAM MD on Oct 11 2024 11:23AM EST [facility] CenterRadiology Study observation (narrative)[facility] Cervical spine WO contrastOrdered By: [facility] Provider on 51-02-0456[facility] CNOVon 53-26-0900YNQIPwpbjk Visit (SPNSMN) BEE HARRIS ([id number]) 1965 M Date Time Provider Department 08/25/24 1:30 PM ERNIE RANKIN SPNSMN During your visit today, we recorded the following information about you: Pulse Blood pressure 66/minute 129/73 Ernie Rankin APRN.[employer]NSH[employer] 08/26/2024 1:47 PM Signed SPINE SURGERY NEW [...] - Generalized low back pain (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 Qa Specialist: LIANA Transcribe Date/Time: Aug 25 2024 2:15P Dictated by : BRANDO HUIZAR MD This examination was interpreted and the report reviewed and electronically signed by: BRANDO HUIZAR MD on Aug 25 2024 2:16PM [facility] DIVISION OF RADIOLOGYNo Panel InformationOrdered By: [facility] Provider on 08-25-2024 [facility] CenterXR CERV OTHER 4V AP/LAT/FLX/EXTon 08-25-2024* * *Final Report* * * DATE OF [...] facet hypertrophy. The sacroiliac joints are intact. COMBINEDDIVISION OF RADIOLOGYProvider, [facility] Imaging [place] - 08/25/2024 * * *Final Report* * [...] COMBINED IMPRESSION IMPRESSION: Degenerative changes as described. Qa Specialist: [facility]IL[facility]'S HOSPITALMakayla Transcribe Date/Time: Aug 25 2024 2:15P Dictated by : BRANDO HUIZAR MD This examination was interpreted and the report reviewed and electronically signed by: BRANDO HUIZAR MD on Aug 25 2024 2:16PM EST [facility] CenterRadiology Study observation (narrative)[facility] CenterXR CERVICAL 4V AP/LAT/FLX/EXTon 32-16-4960XW CERVICAL 4V AP/LAT/FLX/EXT* * *Final Report* * * DATE OF [...] intact. COMBINED IMPRESSION: Degenerative changes as described. Qa Specialist: LIANA Transcribe Date/Time: Aug 25 2024 2:15P Dictated by : BRANDO HUIZAR MD This examination was interpreted and the report reviewed and electronically signed by: BRANDO HUIZAR MD on Aug 25 2024 2:16PM EST [id number] Health Behavioral Medical CenterXR LUMBAR 4V AP/LAT/ FLEX/EXTon 29-13-4191EE LUMBAR 4V AP/LAT/ FLEX/EXT* * *Final Report* * * DATE OF [...] intact. COMBINED IMPRESSION: Degenerative changes as described. Qa Specialist: LIANA Transcribe Date/Time: Aug 25 2024 2:15P Dictated by : BRANDO HUIZAR MD This examination was interpreted and the report reviewed and electronically signed by: BRANDO HUIZAR MD on Aug 25 2024 2:16PM EST [id number] Health [facility]burg Lumbar spine Views W flexion and W extensionon 08-25-2024* * *Final Report* * * DATE OF [...] facet hypertrophy. The sacroiliac joints are intact. COMBINEDDIVISION OF RADIOLOGYProvider, [facility] [place] - 08/25/2024 * * *Final Report* * [...] COMBINED IMPRESSION IMPRESSION: Degenerative changes as described. Qa Specialist: LIANA Transcribe Date/Time: Aug 25 2024 2:15P Dictated by : BRANDO HUIZAR MD This examination was interpreted and the report reviewed and electronically signed by: BRANDO HUIZAR MD on Aug 25 2024 2:16PM EST [facility] CenterRadiology Study observation (narrative)[facility] CERVICAL SPINE WO/W CONon 14-99-[place] [address] Magnetic Resonance Report Signed Patient: BEE HARRIS MR#: [id number] : 1965 Acct:[id number] Age/Sex: 58 / M ADM Date: 06/23/24 Loc: MRI Attending Dr: Savita Alcantara NP Ordering Physician: Savita Alcantara NP Date of Service: 06/23/24 Procedure(s): MR cervical spine wo/w con Accession Number(s): [id number] cc: Savita Alcantara NP; CRIS SINGH [place] [address] Patient Name: BEE HARRIS [facility]:[id number] date: 1965 Sex: M Assigned Patient Location: MRI Current Patient Location: Accession/Order Number: [id number] Exam Date: 06/23/2024 12:30 Report Date: 06/24/2024 09:22 At the request of: SAVITA ALCANTARA Procedure: MR cervical spine wo/w con EXAMINATION: [...] for above findings. Electronically authenticated by: FRANK SINGH Date: 06/24/2024 09:22 Dictated By: Frank Singh M.D. Signed By: 06/24/24924 DD/ 1 TD/TT: Qa Specialist:ALYadiologalvino, Radiologist, - 06/24/2024 [place] [address] Magnetic Resonance Report Signed Patient: BEE HARRIS MR#: [id number] : 1965 Acct:[id number] Age/Sex: 58 / M ADM Date: 06/23/24 Loc: MRI Attending Dr: Savita Alcantara NP Ordering Physician: Savita Alcantara NP Date of Service: 06/23/24 Procedure(s): MR cervical spine wo/w con Accession Number(s): [id number] cc: Savita Alcantara NP; CRIS SINGH [place] [address] Patient Name: BEE HARRIS MRN: [id number] date: 1965 Sex: M Assigned Patient Location: MRI Current Patient Location: Accession/Order Number: [id number] Exam Date: 06/23/2024 12:30 Report Date: 06/24/2024 09:22 At the request of: SAVITA ALCANTARA Procedure: MR cervical spine wo/w con EXAMINATION: [...] for above findings. Electronically authenticated by: FRANK SINGH Date: 06/24/2024 09:22 Dictated By: Frank Singh M.D. Signed By: 06/24/24924 DD/ 1 TD/TT: Qa Specialist: [facility]ENTERRomero [facility] CenterRadiology Study observation (narrative)[facility] CERVICAL SPINE WO/W CONOrdered By: Radiologist Radiology on 80-70-1236MZKC Certify Work Phone: MR BRAIN W AND WO CONTRAST (IACS)on 48-09-9767ST BRAIN W AND WO CONTRAST (IACS)TITLE OF EXAM: MR BRAIN W AND WO CONTRAST (IACS) REASON FOR EXAM: Chronic tinnitus, vertigo TECHNIQUE: Multisequence, multiplanar MRI of the brain prior to and following the intravenous administration of 7.5 cc Vueway COMPARISON: Brain MRI 12/22/2023 FINDINGS: Cerebellopontine angles and temporal bones: No mass or abnormal enhancement in the cerebellopontineangles or internal auditory canals. The vestibules, cochlea, [...] electronically signed in approved by the interpreting radiologist.NormalNot AvailableComment on above:Order Comment: MRI Brain & IAC W/WO at [facility]. Please call patient to schedule.Auditory function testson 95-76-9929Zdepv Ear: Mild to moderate sensorineural hearing loss above 2K Hz. Left Ear: Mild to moderate sensorineural hearing loss above 1K Hz. [facility] HealthcareEMG 1 Extremeityon 53-09-3862Nqcx mild C8 radiculopathy on the right Mild carpal tunnel syndrome on the right No clear explanation for right shoulder painTenet St. Louis HealthcareNVC 5- 6 Nerveson 47-92-9968Xgfs mild C8 radiculopathy on the right Mild carpal tunnel syndrome on the right No clear explanation for right shoulder painNOMS [facility] CenterNOSC HealthcareRefill on [id number] Bee Harris 1965 M Date Provider Department Center 03/24/2024 18941-LXPXRKYDSAQIB [facility] Comprehensiv Family History Problem Relation Age of Onset Diabetes Mother Lung cancer Mother Kidney failure Mother Heart disease Father Other Father Family Status - Relation Status Age at Mother Father Reason for Visit and Comments: Med Refill [[id number]][facility]36on 25-47-502740 Refill request for Requested Prescriptions Pending Prescriptions [...] dysphagia Overweight Perforated diverticulum Purpura (CMS/HCC) Urinary retentionNormalUniversity Select Medical Specialty Hospital - TrumbullRefillon 02-22-2024 [id number] Bee Harris 1965 M Date Provider Department Center 02/22/2024 41179-BQHHEXGJSAQIB HOLMANICCC INT MED Comprehensiv Family History Problem Relation Age of Onset Diabetes Mother Lung cancer Mother Kidney failure Mother Heart disease Father Other Father Family Status - Relation Status Age at Mother Father Reason for Visit and Comments: Med Refill [[id number]][facility] CenterXR pre/post mri xray on 93-44-5167ND pre/post mri xrayKETTERING HEALTH [facility] Main [place] [address] [place] [address] MRI Report Signed Patient: Bee Harris MR#: [id number] : 1965 Acct:[id number] Age/Sex: 58 / M ADM Date: 02/18/24 Loc: [facility] Room: Type: [facility] Attending Dr: Deanna Mejia DO Copies to: Deanna Mejia DO Ordering Provider: Deanna Mejia DO Date of Service: 02/18/24 MR/MR lumbar spine wo con: R29.898 ([id number]) XR/XR pre/post mri xray: LUMBAR PRES MR [...] Adilson Trinidad M.D.02/18/2024 4:45 PM Dictation Location: [place] [address] Transcribed By: [facility] 02/18/24 7925 Dictated By: Adilson Trinidad II, MD 02/18/24 5769 Signed By: 02/18/24 9814[facility] Physician [facility] SystemMR BRAIN WO CONTon 28-72-0428AY BRAIN WO CONTMR BRAIN WO CONT MRI brain: HISTORY: Headaches. History of trauma. Multisequence multiplanar imaging of the brain was obtained. There is no cortical signal characteristic abnormality. The diffusion-weighted images and corresponding ADC map show no focus of diffusionrestriction or acute intracranial ischemia. Cerebellar tonsils are normal position. Pituitary is mid line. No orbital abnormality identified. There is no [...] by Bogdan Maurer MD on 12/23/2023 9:[address] Charles HospitalUS ABDOMEN LMTDon 35-80-1157TQ ABDOMEN LMTDUS ABDOMEN LMTD ABDOMEN LIMITED ULTRASOUND HISTORY: Elevated [...] Juan Carlos Chopra MD on 12/23/2023 1:[address] Charles Hospital CBC AND AUTO DIFFon 28-75-7186FHPOXYBA BASOPHIL0.1 X10E9/LNormal0.0-0.2PSt. Charles HospitalComment on above:Performed By: #### CMP, 74170-5, TSHR, CBCA, 2132-04 #### [facility] ([id number]) [address], [address] [place], [place] [address]SYWALVXJ NEUTROPHIL3.2 X10E9/LNormal1.5-6.6ProMercy Health Urbana Hospital HospitalComment on above:Performed By: #### CMP, 38673-3, TSHR, CBCA, 2132-04 #### [facility] ([id number]) [address], [address] [place], [place] [address]Tchxqvbrf/100 WBC (Bld)0.9 %NormalOhio State Harding Hospital Comment on above:Performed By: #### CMP, 36471-3, TSHR, CBCA, 2132-04 #### [facility] ([id number]) [address], [address] [place], [place] [address]Ekmuqvihnje (Bld) [#/Vol]0.0 10*3/uLNormal0.0-0.4ProMercy Health Urbana Hospital HospitalComment on above:Performed By: #### CMP, 26066-4, TSHR, CBCA, 2132-04 #### [facility] ([id number]) [address] [place], [place] [address]Acxpyogibdq/100 WBC (Bld)0.7 %NormalOhio State Harding Hospital Comment on above:Performed By: #### CMP, 92833-7, TSHR, CBCA, 2132-04 #### [facility] ([id number]) [address], [address] [place], [place] [address]Ljyqkavcbpj distribution width (RBC) [Ratio]13.9 %Normal 11.5-15.0ProMer[facility] Health [facility] HospitalComment on above:Performed By: #### CMP, 73601-1, TSHR, CBCA, 2132-04 #### [facility] ([id number]) [address], [address] [place], [place] [address]Oopogumylh (Bld) [Volume fraction]48.0 %Umzair38-15PwsFowkdf [place] HospitalComment on above:Performed By: #### CMP, 41309-0, TSHR, CBCA, 2132-04 #### [facility] ([id number]) [address], [address] [place] [address]Tujiinguyc (Bld) [Mass/Vol]16.4 g/rTQiazeb27.0-17.0ProMercy Health St. Joseph Warren HospitalComment on above:Performed By: #### CMP, 79371-6, TSHR, CBCA, 2132-04 #### [facility] ([id number]) [address], [address] [place], [place] [address]Vjtmnmhskvb (Bld) [#/Vol]1.6 10*3/uLNormal1.0-3.5ProMedica Mount Carmel Health SystemComment on above:Performed By: #### CMP, 31721-9, TSHR, CBCA, 2132-04 #### [facility] ([id number]) [address], [address] [place], [place] [address]Unqimgdhodv/100 WBC (Bld)28.7 %NormalProMercy Health [facility] Hospital Hospital Comment on above:Performed By: #### CMP, 23223-9, TSHR, CBCA, 2132-04 #### [facility] ([id number]) [address], [address] [place], [place] [address]ACD (RBC) [Entitic mass]34.9 agIjck97-25FmaNwlzotMercy Health St. Joseph Warren HospitalComment on above:Performed By: #### CMP, 04364-8, TSHR, CBCA, 2132-04 #### [facility] ([id number]) [address], [address] [place], [place] [address]MXLT (RBC) [Mass/Vol]34.2 g/yGHauvaw39-66PjsRujwde [place] HospitalComment on above:Performed By: #### CMP, 35164-4, TSHR, CBCA, 2132-04 #### [facility] ([id number]) [address], [address] [place], [place] [address]LAQ (RBC) [Entitic vol]102 yOJoxq91-436EaaZxrxhn [facility] Comment on above:Performed By: #### CMP, 16841-7, TSHR, CBCA, 2132-04 #### [facility] ([id number]) [address], [address] [place], [place] [address]Ijkfwedpy (Bld) [#/Vol]0.6 10*3/uLNormal0-0.9ProMer[facility] HospitalComment on above:Performed By: #### CMP, 87216-5, TSHR, CBCA, 2132-04 #### [facility] ([id number]) [address], [address] [place], [place] [address]Enuskidtd/100 WBC (Bld)10.8 %NormalOhio State Harding Hospital Comment on above:Performed By: #### CMP, 97075-8, TSHR, CBCA, 2132-04 #### [facility] ([id number]) [address], [address] [place], [place] [address]Azjodzxbicw/100 WBC (Bld)58.9 %NormalOhio State Harding Hospital Comment on above:Performed By: #### CMP, 94455-7, TSHR, CBCA, 2132-04 #### [facility] ([id number]) [address], [address] [place], [place] [address]Jdmzxtto mean volume (Bld) [Entitic vol]8.9 fLNormal7-12 ProMedicWVUMed[facility] HospitalComment on above:Performed By: #### CMP, 74025-7, TSHR, CBCA, 2132-04 #### [facility] ([id number]) [address], [address] [place], [place] [address]Ezpwpiyvi (Bld) [#/Vol]95 10*3/aCMjs230-053NtxZyvbcd [place] HospitalComment on above:Performed By: #### CMP, 37570-0, TSHR, CBCA, 2132-04 #### [facility] ([id number]) [address], [address] [place], [place] [address]OHJ COUNT4.70 X10E12/LNormal4.10-5.70[facility] Comment on above:Performed By: #### CMP, 09855-3, TSHR, CBCA, 2132-04 #### [facility] ([id number]) [address] [place], [place] [address]RYU (Bld) [#/Vol]5.4 10*3/uLNormal4.0-11.0Ohio State Harding HospitalComment on above:Performed By: #### MALCOM, 89498-1, TSHR, CBCA, 2132-04 #### [facility] ([id number]) [address], [address] [place], [place] [address]TVS auto differentialon 71-00-5857Cjgpspqdm (Bld) [#/Vol]0.1 10*3/uLWilson HealthBasophils/100 WBC (Bld)0.9 %Wilson HealthEosinophils (Bld) [#/Vol]0.0 10*3/uLWilson HealthEosinophils/100 WBC (Bld)0.7 %Wilson HealthErythrocyte distribution width (RBC) [Ratio]13.9 %11.5 - 15.0 %Wilson HealthHematocrit (Bld) [Volume fraction]48.0 %39 - 49 %Wilson HealthHemoglobin (Bld) [Mass/Vol]16.4 g/dL13.0 - 17.0 g/dLWilson HealthInterpretation and review of laboratory resultsAbnormalWilson HealthLymphocytes (Bld) [#/Vol]1.6 10*3/uLWilson HealthLymphocytes/100 WBC (Bld)28.7 %[facility] HospitalH (RBC) [Entitic mass]34.9 igFmyw41 - 34 [facility] CenterMCHC (RBC) [Mass/Vol]34.2 g/dL32 - 36 g/dLWilson HealthMCV (RBC) [Entitic vol]102 bSIeby01 - 100 [facility] HealthcareMonocytes (Bld) [#/Vol]0.6 10*3/uLWilson HealthMonocytes/100 WBC (Bld)10.8 %Wilson HealthNeutrophils (Bld) [#/Vol]3.2 10*3/uLWilson HealthNeutrophils/100 WBC (Bld)58.9 %Wilson HealthPlatelet mean volume (Bld) [Entitic vol] 8.9 fL7 - 12 [facility] SystemPlatelets (Bld) [#/Vol]95 10*3/uLLow [facility] Hospital SystemRBC (Bld) [#/Vol]4.70 10*6/uLWilson HealthWBC corrected for nucl RBC Auto (Bld) [#/Vol]5.4Punxsutawney Area HospitalCOMPREHENSIVE METABOLIC PANELon 89-63-6877Vhzprfv [Mass/Vol]3.8 g/dLNormal3.2-5.3PSt. Charles HospitalComment on above:Performed By: #### MALCOM, 03402-6, TSHR, CBCA, 2132-04 #### [facility] ([id number]) [address], [address] [place], [place] [address]UGU [Catalytic activity/Vol]89 U/MTsivbp46-030RjsYdxhim [place] HospitalComment on above:Performed By: #### MALCOM, 65319-0, TSHR, CBCA, 2132-04 #### [facility] ([id number]) [address], [address] [place], [place] [address]GCY [Catalytic activity/Vol]33 U/LNormal0-40ProMercy Health St. Joseph Warren HospitalComment on above:Performed By: #### MALCOM, 89179-4, TSHR, CBCA, 2132-04 #### [facility] ([id number]) [address], [address] [place], [place] [address]Iwdgu gap [Moles/Vol]10 mmol/LNormal5-15Pro[facility] HospitalComment on above:Performed By: #### CMP, 54167-6, TSHR, CBCA, 2132-04 #### [facility] ([id number]) [address], [address] [place], [place] [address]UHQ [Catalytic activity/Vol]58 U/LHigh0-41Pro[facility] HospitalComment on above:Performed By: #### CMP, 97239-7, TSHR, CBCA, 2132-04 #### [facility] ([id number]) [address], [address] [place], [place] [address]Vjvxozuaw [Mass/Vol]0.7 mg/dLNormal0.3-1.2ProMedSumma Health Barberton Campus HospitalComment on above:Performed By: #### MALCOM, 57859-5, TSHR, CBCA, 2132-04 #### [facility] ([id number]) [address], [address] [place], [place] [address]Mrfklpf [Mass/Vol]8.9 mg/dLNormal8.5-10.5PC[facility] HospitalComment on above:Performed By: #### CMP, 63981-3, TSHR, CBCA, 2132-04 #### [facility] ([id number]) [address], [address] [place], [place] [address]Phnsokgj [Moles/Vol]107 mmol/SFojghx18-367BvtFfvjub [place] HospitalComment on above:Performed By: #### CMP, 34528-4, TSHR, CBCA, 2132-04 #### [facility] ([id number]) [address], [address] [place], [place] [address]YX0 [Moles/Vol]26 mmol/XWxrzjh85-09FotPkspke [facility] Comment on above:Performed By: #### CMP, 75482-1, TSHR, CBCA, 2132-04 #### [facility] ([id number]) [address], [address] [place], [place] [address]Qsyhfgdpla [Mass/Vol]0.89 mg/dLNormal0.60-1.30ProMercy Health St. Joseph Warren HospitalComment on above:Result Comment: METHOD TRACEABLE TO IDMS STANDARD Performed By: #### MALCOM, 24479-4, TSHR, CBCA, 2132-04 #### [facility] ([id number]) [address] [place], [place] [address]pYXE (CKD-EPI) NON-RACE DEPENDENT>90Normal>59ProMer[address] Joseph Warren HospitalComment on above:Result Comment: Reported eGFR is based on the CKD-EPI 2020 equation that does not use a race coefficient.Performed By: #### MALCOM, 54802-8, TSHR, CBCA, 2132-04 #### [facility] ([id number]) [address] [address] [place], [place] [address]Lsnqpma [Mass/Vol]93 mg/zOXztstb65-06BrdTjjznu [facility] Comment on above:Performed By: #### MALCOM, 12891-1, TSHR, CBCA, 2132-04 #### [facility] ([id number]) [address] [address] [place], [place] [address]Dvuxwqdrz [Moles/Vol]3.7 mmol/LNormal3.5-5.0ProMercy Health St. Joseph Warren HospitalComment on above:Performed By: #### MALCOM, 25231-8, TSHR, CBCA, 2132-04 #### [facility] ([id number]) [address] [address] [place], [place] [address]Tlntzay [Mass/Vol]6.6 g/dLNormal6.0-8.0[facility] Comment on above:Performed By: #### MALCOM, 05134-7, TSHR, CBCA, 2132-04 #### [facility] ([id number]) [address], [address] [place], [place] [address]Ssuaay [Moles/Vol]143 mmol/XEvpvhy267-584FsnMjlowq [place] HospitalComment on above:Performed By: #### MALCMO, 84288-3, TSHR, CBCA, 2132-04 #### [facility] ([id number]) [address], [address] [place], [place] [address]Ubmo nitrogen [Mass/Vol]10 mg/dLNormal5-23ProMercy Health St. Joseph Warren HospitalComment on above:Performed By: #### MALCOM, 99477-6, TSHR, CBCA, 2132-04 #### [facility] ([id number]) [address], [address] [place], [place] [address]Krqqucwpn (Vitamin B12) [Mass/Vol]on 21-72-0899LnmItemfpPremier Health Upper Valley Medical CenterComprehensive metabolic panelon 30-28-7590Mdvnrpe [Mass/Vol]3.8 g/dL3.2 - 5.3 g/dLParkview Health Montpelier Hospital Health SystemALP [Catalytic activity/Vol]89 U/L39 - 130 U/L [facility] SystemALT No additional P-5'-P [Catalytic activity/Vol]33 U/L0 - 40 U/[facility] Hospitalica Health SystemAnion gap [Moles/Vol]10 mmol/L5 - 15 mmol/L [facility] Health SystemAST [Catalytic activity/Vol]58 U/LHigh0 - 41 U/LPrTelluride Regional Medical Center Health SystemBilirubin [Mass/Vol]0.7 mg/dL0.3 - 1.2 mg/dLKettering [facility] System Calcium [Mass/Vol]8.9 mg/dL8.5 - 10.5 mg/dLKettering Memorial Hospital SystemChloride [Moles/Vol]107 mmol/L98 - 109 mmol/[facility] Hospitalica Health SystemCO2 [Moles/Vol]26 mmol/L22 - 32 mmol/[facility] SystemCreatinine [Mass/Vol]0.89 mg/dL0.60 - 1.30 mg/dLWilson HealthComment on above:METHOD TRACEABLE TO IDMS STANDARDeGFR (CKD-EPI)non-race dependent- [facility]CU Medical CenterComment on above: Reported eGFR is based on the CKD-EPI 2020 equation that does not use a race coefficient. Glucose [Mass/Vol]93 mg/dL65 - 99 mg/dLWilson HealthPotassium [Moles/Vol]3.7 mmol/L3.5 - 5.0 mmol/[facility] SystemProtein [Mass/Vol] 6.6 g/dL6.0 - 8.0 g/dLSelect Specialty Hospital - Winston-Salemodium [Moles/Vol]143 mmol/L134 - 146 mmol/[facility] Community HospitalUrea nitrogen [Mass/Vol]10 mg/dL5 - 23 mg/dL Wilson HealthLipid 1996 panelon 36-48-1861Vjdbipsdgbc [Mass/Vol]103 mg/nJJsp706 - 200 mg/dLWilson HealthCholesterol in HDL [Mass/Vol]63 mg/dL39 - PINF mg/dLWilson HealthComment on above: HDL <40 mg/dL - High Risk HDL > or = 40mg/dL- Desirable HDL >60 mg/dL - Negative Risk Cholesterol in LDL [Mass/Vol]5 mg/dLNINF - 130 mg/dLWilson Health Comment on above: LDL <100 mg/dL - Desirable LDL >160 mg/dL - High Risk Cholesterol in VLDL [Mass/Vol]35 mg/dLHigh0 - 30 mg/dLWilson Health Cholesterol.total/Cholesterol in HDL [Mass ratio]1.6 {ratio}1.0 - 5.0Wilson HealthTriglyceride [Mass/Vol]173 mg/bDRlfg32 - 150 mg/dLWilson HealthCholesterol [Mass/Vol]103 mg/xPHee186-321JirWyfuypOhio State Harding HospitalComment on above:Performed By: #### CMP, 95396-7, TSHR, CBCA, 2132-9 #### [facility] ([id number]) [address], [address] [place], [place] [address]Cmdtuijttbw in HDL [Mass/Vol]63 mg/dLNormal>39ProMediThe [facility]Health System HospitalComment on above:Result Comment: HDL <40 mg/dL - High Risk HDL > or = 40mg/dL- Desirable HDL >60 mg/dL - Negative Risk Performed By: #### MALCOM, 85357-8, TSHR, CBCA, 2132-04 #### [facility] ([id number]) [address], [address] [place], [place] [address]Zpvjtcdgukv in LDL [Mass/Vol]5 mg/dLNormal<130ProMer[facility] HospitalComment on above:Result Comment: LDL <100 mg/dL - Desirable LDL >160 mg/dL - High Risk Performed By: #### MALCOM, 43285-2, TSHR, CBCA, 2132-04 #### [facility] ([id number]) [address], [address] [place], [place] [address]Lcoumcwvbwa in VLDL [Mass/Vol]35 mg/dLHigh0-30ProMer[facility] HospitalComment on above:Performed By: #### MALCOM, 71849-9, TSHR, CBCA, 2132-04 #### [facility] ([id number]) [address], [address] [place], [place] [address]CVYJPWOMPSC:HDL1.0Wcbunp0.0-5.0ProMer[facility] HospitalComment on above:Performed By: #### MALCOM, 81677-2, TSHR, CBCA, 2132-04 #### [facility] ([id number]) [address] [place], [place] [address]Tdrxpjgssnfm [Mass/Vol]173 mg/xLFgoh46-599WjjMievhyMercy Health St. Joseph Warren HospitalComment on above:Performed By: #### MALCOM, 79309-9, TSHR, CBCA, 2132-04 #### [facility] ([id number]) [address] [place], [place] [address]Os Panel Informationon 01-93-0781Suijgjlcjcsefm and review of laboratory resultsAbnormalPunxsutawney Area HospitalTS WITH REFLEXon 15-02-6582OAS7.69 uIU/mLNormal0.49-4.67[facility] Comment on above:Performed By: #### MALCOM, 62672-2, TSHR, CBCA, 2132-04 #### [facility] ([id number]) [address], [address] [place], [place] [address]TBR with Reflexon 66-27-5539ETE Qn1.69 m[IU]/LProMedMeadows Psychiatric CenterVITAMIN B12on 65-19-2843Cuivadzgo (Vitamin B12) [Mass/Vol]337 pg/uYHswdrk623-086IwjKnpxlt [facility] SystemComment on above: Performed By: #### MALCOM, 49078-5, TSHR, CBCA, 2132-04 #### [facility] ([id number]) [address], [address] [place], [place] [address]Gggumos B12on 44-82-3796Pkmivakxh (Vitamin B12) [Mass/Vol]337 pg/mL180 - 914 pg/mLWilson Health Vital Signs Date TimeVital SignValuePerforming UihudlvctKzoxudor16-69-1423 14:55-0400Body woqvwn838.8 cmRogelio DAVISM Work Phone: NOScotland County Memorial HospitalMsowpfrppn48-80-5597 14:55-0400Body mass index (BMI) [Ratio]27.26 kg/m0Pomgxegu Brown DPM Work Phone: [facility] CenterPeeqedwpcj91-79-8882 14:55-0400Body bmoyar07.18 kgNicholas Brown DPM Work Phone: [facility] CenterPomxhdpgdw65-68-9487 14:55-0400Respiratory rate16 /minNicholas Brown DPM Work Phone: [facility] CenterEjzkytxlej53-62-5182 15:27-0400Body rsuskr429.8 cmNicholas Brown DPM Work Phone: [facility] CenterCiqdpuzvuh22-01-9822 15:27-0400Body mass index (BMI) [Ratio]27.26 kg/k5Ztuwiran Brown DPM Work Phone: [facility] CenterJwnyvojrzr67-82-0807 15:27-0400Body uqpnan23.18 kgNicholas Brown DPM Work Phone: [facility] CenterVfmizolczh92-41-5046 15:27-0400Respiratory rate18 /minNicholas Brown DPM Work Phone: [facility] CenterJfdmghxkdb50-31-3606 15:57-0400Body .8 cmNicholas Brown DPM Work Phone: [facility] CenterPzdrysjjre80-61-0014 15:57-0400Body mass index (BMI) [Ratio]27.26 kg/u0Sxdzlyrq Brown DPM Work Phone: [facility] CenterBsjoewsftd08-12-7121 15:57-0400Body rmjfyy51.18 kgNicholas Brown DPM Work Phone: [facility] CenterOiiwpncbla82-30-8360 15:57-0400Respiratory rate16 /minNicholas Brown DPM Work Phone: [facility] CenterEtrqtcclwr93-74-4076 15:51-0400Body tnylzz301.8 cmNicholas Brown DPM Work Phone: [facility] CenterDicaqxauep87-35-4239 15:51-0400Body mass index (BMI) [Ratio]27.26 kg/g8Yasmgxhq Brown DPM Work Phone: [facility] CenterCyztwdmnhy07-42-0057 15:51-0400Body tuswqj39.18 kgRogelio Conway DPM Work Phone: [facility] CenterTsiljwufvd17-10-1458 15:51-0400Respiratory rate16 /minRogelio Conway DPM Work Phone: [facility] CenterMzwaqxnzxh75-69-0226 15:10-0400Diastolic blood sqnikoom62 mm[Hg]Cris Singh DO Work Phone: [facility] [employer] Mfxjin56-08-5954 15:10-0400Systolic blood clrczato361 mm[Hg]Cris Singh DO Work Phone: [facility]07-23-2025 14:45-0400Body .3 cmJorosa Osegueras DO Work Phone: [facility] [employer] Qezbax00-00-1861 14:45-0400Body mass index (BMI) [Ratio]27.6 kg/m2Jorosa Osegueras DO Work Phone: [facility] [employer] Vuvheu22-43-7773 14:45-0400Body fhiksdtltsg84.01 [degF]Cris Singh DO Work Phone: [facility] [employer] Ghvbaw10-35-3347 14:45-0400Body sjrlel68.72 kgCris Osegueras DO Work Phone: [facility] [employer] Owyjaf73-12-3678 14:45-0400Heart rate 63 /minCris Osegueras DO Work Phone: [facility] [employer] Jaynwi49-11-6086 14:45-0400 Respiratory rate18 /minCris Osegueras DO Work Phone: [facility] [employer] Kqkwpg93-25-2845 14:45-5708JfC2% (BldA) [Mass fraction]96 %Cris Singh DO Work Phone: [facility] [employer] Qqfpnk02-52-5136 14:13-0400Diastolic blood ysjudpgw17 mm[Hg]Jus Wisdom MD Work Phone: [facility]07-22-2025 14:13-0400Heart rate68 /min Jus Wisdom MD Work Phone: [facility]07-22-2025 14:13-0400Systolic blood tudgpvpq071 mm[Hg]Jus Wisdom MD Work Phone: [facility]06-26-2025 15:06-0400Body vmspun948.8 cmRogelio Reagan DPM Work Phone: [facility] CenterLfoqbttvgn73-75-1676 15:06-0400Body mass index (BMI) [Ratio]27.26 kg/c0Qxtbkdqu Reagan DPM Work Phone: [facility] CenterFhsvhgsyli70-48-9238 15:06-0400Body ptqwoa91.18 kgVondaary Conway DPM Work Phone: [facility] CenterSyiyqitvyi47-20-9571 15:06-0400Respiratory rate18 /minVondaary Conway DPM Work Phone: [facility] CenterLxzbziacdn32-46-4723 13:33-0400Body cblbki011.3 cmNancyrosa Osegueras DO Work Phone: [facility]06-04-2025 13:33-0400Body mass index (BMI) [Ratio]26.51 kg/m2Cris Osegueras DO Work Phone: [facility]06-04-2025 13:33-0400Body bxgzdschxwe20.8 [degF]Cris Osegueras DO Work Phone: [facility]06-04-2025 13:33-0400Body ohdnch66.18 kgNancyrosa Horanhas DO Work Phone: [facility]06-04-2025 13:33-0400Diastolic blood ycovmxob95 mm[Hg]Cris Osegueras DO Work Phone: [facility]06-04-2025 13:33-0400Heart rate 68 /minCris Ana Rosas DO Work Phone: [facility] [employer] Shlesi89-14-4304 13:33-0400 Respiratory rate20 /minCris Singh DO Work Phone: [facility] [employer] Fvkeds95-41-3678 13:33-0874QkJ4% (BldA) [Mass fraction]97 %Cris Singh DO Work Phone: [facility]06-04-2025 13:33-0400Systolic blood wodgvhaj492 mm[Hg]Cris Singh DO Work Phone: [facility] [employer] Ysnffk25-89-9565 13:35-0400Body xwaaed013.3 cmCris Singh DO Work Phone: [facility]05-13-2025 13:35-0400Body mass index (BMI) [Ratio]25.53 kg/m2Cris Singh DO Work Phone: [facility]05-13-2025 13:35-0400Body bphfolbbgiz93.4 [degF]Cris Singh DO Work Phone: [facility] [employer] Xrolyf48-61-1384 13:35-0400Body .01 kgCris Singh DO Work Phone: [facility] [employer] Suluay77-10-0139 13:35-0400Diastolic blood ktaqgpxa03 mm[Hg]Cris Singh DO Work Phone: [facility] [employer] Xiokro82-84-3421 13:35-0400Heart rate 81 /Maia Singh DO Work Phone: [facility] [employer] Jbpdpz05-56-4272 13:35-0400 Respiratory rate20 /Maia Singh DO Work Phone: [facility]05-13-2025 13:35-1056SpN7% (BldA) [Mass fraction]98 %Cris Singh DO Work Phone: [facility]05-13-2025 13:35-0400Systolic blood xhapgper654 mm[Hg]Cris Singh DO Work Phone: [facility]05-01-2025 13:04-0400Body enzhbi387.8 cmAlexa Pacenta [employer] [place] [employer] Work Phone: [facility]05-01-2025 13:04-0400Body mass index (BMI) [Ratio]23.66 kg/h7Oceza Pacenta [employer] [place] [employer] Work Phone: [phone]05-01-2025 13:04-0400Body temperature 97.59 [degF]Ernie Pacenta [employer] [place] [employer] Work Phone: [phone]05-01-2025 13:04-0400Body wqsugf84.8 kgAlexa Pacenta [employer] [place] [employer] Work Phone: [phone]05-01-2025 13:04-0400Diastolic blood snqnammx66 mm[Hg]Ernie Pacenta [employer] [place] [employer] Work Phone: [phone]05-01-2025 13:04-0400Heart rate67 /min Ernie Pacenta [employer] [place] [employer] Work Phone: [phone]05-01-2025 13:04-0400Respiratory rate 18 /minAlexa Pacenta [employer] [place] [employer] Work Phone: [phone]05-01-2025 13:04-0400Systolic blood puszoyar042 mm[Hg]Ernie Pacenta [employer] [place] [employer] Work Phone: [phone]03-25-2025 13:46-0400Body .8 cmPacc 1[facility] ClinicComment on above:commicated by nmjckon83-45-1278 13:46-0400Body mass index (BMI) [Ratio]23.68 kg/m2[facility] 10-25-2024 13:46-0400Body evnnmunbtob29.9 [degF][facility] Nlustm64-65-7911 13:46-0400Body .84 kgPacc 1[facility] ClinicComment on above:commicated by [id number] 13:46-0400Diastolic blood jiiribtt35 mm[Hg][facility] Reqwha60-22-9628 13:46-0400Heart rate80 /minPacc 1[facility] Gnojpg43-67-6654 13:46-5405XtF0% (BldA) [Mass fraction]95 %Pac 1[facility] Daxmsf50-81-3659 13:46-0400Systolic blood rtlmrtex596 mm[Hg][facility] Sdfznf58-71-8485 13:19-0400Diastolic blood hzcaqoff85 mm[Hg]Jus Wisdom MD Work Phone: [phone]03-25-2025 13:19-0400Heart rate68 /min Jus Wisdom MD Work Phone: [phone]03-25-2025 13:19-0400Systolic blood trymyoou016 mm[Hg]Jus Wisdom MD Work Phone: [phone]03-11-2025 09:32-0400Diastolic blood ppxczjgu27 mm[Hg]Jus Wisdom MD Work Phone: [phone]03-11-2025 09:32-0400Heart rate67 /min Jus Wisdom MD Work Phone: [phone]03-11-2025 09:32-0400Systolic blood ygtvxaig366 mm[Hg]Jus Wisdom MD Work Phone: [phone]02-24-2025 15:41-0500Body mass index (BMI) [Ratio]23.1 kg/u6NprlcSavita Alcantara ENVIRONMENTAL COMPLIANCE SPECIALIST Work Phone: NOScot[facility] HospitalYxxhwhwzof14-93-5218 15:41-0500Body qmlowi89.03 kgSajennifer Alcantara ENVIRONMENTAL COMPLIANCE SPECIALIST Work Phone: NOScot[facility] HospitalZbgnmfinxw20-39-7421 15:41-0500Diastolic blood hfctwkia06 mm[Hg]Savita Alcantara ENVIRONMENTAL COMPLIANCE SPECIALIST Work Phone: noScotland [facility] HospitalTsxrjiwwkh76-69-3190 15:41-0500Heart rate72 /min Savita Alcantara ENVIRONMENTAL COMPLIANCE SPECIALIST Work Phone: NOScot[facility] HospitalOmqutazacg37-22-1911 15:41-0513WiE3% (BldA) [Mass fraction]96 %Savita Alcantara ENVIRONMENTAL COMPLIANCE SPECIALIST Work Phone: noScot[facility] HospitalCggxayommv45-20-9789 15:41-0500Systolic blood qtknreku447 mm[Hg]Savita Alcantara ENVIRONMENTAL COMPLIANCE SPECIALIST Work Phone: noScotland County Memorial HospitalKpydiqwpni65-00-5071 12:51-0500Diastolic blood qmpieycz04 mm[Hg]Ernie Pacenta [employer] [place] [employer] Work Phone: [facility]01-23-2025 12:51-0500Heart rate66 /min Ernie Pacenta DEPUTY [place] Work Phone: [phone]01-23-2025 12:51-6298EtM0% (BldA) [Mass fraction]97 %Ernie Pacenta [employer]PUTY [place] [employer] Work Phone: [phone]01-23-2025 12:51-0500Systolic blood qtqdaroa311 mm[Hg]Ernie Pacenta [employer]Y [place] [employer] Work Phone: [phone]01-20-2025 13:44-0500Body priknf948.3 cmJorosa Ana Rosas DO Work Phone: [facility]01-20-2025 13:44-0500Body mass index (BMI) [Ratio]24.21 kg/m2Cris Ana Rosas DO Work Phone: [facility]01-20-2025 13:44-0500Body pcqjnykxofu12.4 [degF]Cris Osegueras DO Work Phone: [facility]01-20-2025 13:44-0500Body habrmt97.74 kgCris Ana Rosas DO Work Phone: [facility]01-20-2025 13:44-0500Diastolic blood sfntirmz32 mm[Hg]Cris Ana Rosas DO Work Phone: [facility]01-20-2025 13:44-0500Heart rate 72 /minJorosa Singh DO Work Phone: [facility]01-20-2025 13:44-4234MmA1% (BldA) [Mass fraction]98 %Cris Singh DO Work Phone: [facility]01-20-2025 13:44-0500Systolic blood rlxumxbo202 mm[Hg]Cris Singh DO Work Phone: [facility]01-07-2025 14:13-0500Body mass index (BMI) [Ratio]24.97 kg/l0QpaswSavita Alcantara ENVIRONMENTAL COMPLIANCE SPECIALIST Work Phone: [facility] CenterEfwoejeqvz42-30-4677 14:13-0500Body .93 kgSajennifer Alcantara ENVIRONMENTAL COMPLIANCE SPECIALIST Work Phone: [facility] CenterHyjgboazjn59-80-8056 14:13-0500Diastolic blood dtpdpboy65 mm[Hg]Savita Kaplanoll ENVIRONMENTAL COMPLIANCE SPECIALIST Work Phone: [facility] CenterBuyszyyzij19-01-8976 14:13-0500Systolic blood mlljyoen193 mm[Hg]Savita Alcantara ENVIRONMENTAL COMPLIANCE SPECIALIST Work Phone: [facility] CenterFgyrckpkra16-86-6512 13:09-0400Body lgvags180.8 cmPaola Serrano MD Work Phone: [facility] CenterHgscqptrzx69-11-0775 13:09-0400Body mass index (BMI) [Ratio]23.39 kg/r3BcqycxPaola Serrano MD Work Phone: [facility] CenterCqlhkysfds11-87-8854 13:09-0400Body plcyyi32.94 kgPaola Serrano MD Work Phone: [facility] CenterKoczmeqjxl14-53-9215 13:09-0400Diastolic blood fqcpizjs35 mm[Hg]Paola Serrano MD Work Phone: [facility] CenterYcvytmnwgi00-51-0611 13:09-0400Systolic blood mm[Hg]Paola Serrano MD Work Phone: [facility] CenterGtgxvxrqau99-01-9399 12:36-0400Body pznxli158.3 cmJorosa Osegueras DO Work Phone: [facility] [employer] Psqfcx36-62-0469 12:36-0400Body mass index (BMI) [Ratio]22.79 kg/m2Cris Osegueras DO Work Phone: [facility] [employer] Hkulli79-61-5774 12:36-0400Body mhncobeuvaw78.01 [degF]Cris Singh DO Work Phone: [facility] [employer] Xmjfoi72-71-4642 12:36-0400Body avreim97.12 kgCris Osegueras DO Work Phone: [facility]10-17-2024 12:36-0400Diastolic blood tousawlx77 mm[Hg]Cris Singh DO Work Phone: [facility] [employer] Grexab81-50-1485 12:36-0400Heart rate 83 /minCris Osegueras DO Work Phone: [facility] [employer] Quzskc51-75-2595 12:36-0400 Respiratory rate18 /minCris Singh DO Work Phone: [facility]10-17-2024 12:36-0061KgA9% (BldA) [Mass fraction]97 %Cris Singh DO Work Phone: [facility] [employer] Othgiw19-44-8085 12:36-0400Systolic blood nkyyzpwm738 mm[Hg]Cris Singh DO Work Phone: [facility] [employer] Zrotrx35-96-6508 14:09-0400Body sgsaws563.8 cmSmervat Alcantara ENVIRONMENTAL COMPLIANCE SPECIALIST Work Phone: noScot[facility] Memorial HospitalRgotlevgtl24-34-8978 14:09-0400Body mass index (BMI) [Ratio]23.56 kg/z4NicldSavita Alcantara ENVIRONMENTAL COMPLIANCE SPECIALIST Work Phone: noScotland County Memorial HospitalRxcvdusont50-67-8355 14:09-0400Body heyeed64.48 kgSajennifer Alcantara ENVIRONMENTAL COMPLIANCE SPECIALIST Work Phone: noScotland County Memorial HospitalFntrfpamev71-98-4823 14:09-0400Diastolic blood obkwczbs72 mm[Hg]Savita Alcantara ENVIRONMENTAL COMPLIANCE SPECIALIST Work Phone: noScotland County Memorial HospitalQgntqfzeyj34-01-7535 14:09-0400Heart rate70 /min Savita Alcantara ENVIRONMENTAL COMPLIANCE SPECIALIST Work Phone: noScotland [facility] Memorial HospitalOvhwtpkutn50-30-7601 14:09-1161FyO2% (BldA) [Mass fraction]97 %Savita Alcantara ENVIRONMENTAL COMPLIANCE SPECIALIST Work Phone: noScotland County Memorial HospitalRejjjdzhtl98-34-4733 14:09-0400Systolic blood oguybhzk788 mm[Hg]Savita Alcantara ENVIRONMENTAL COMPLIANCE SPECIALIST Work Phone: noScotland [facility] Memorial HospitalSqcvzanebr95-22-6227 14:56-0400Body fgorby035.3 cmJorosa Yuholgers DO Work Phone: [facility] Limvhw45-81-9358 14:56-0400Body mass index (BMI) [Ratio]22.9 kg/m2Cris Yuholgers DO Work Phone: [facility] Mttilw28-66-5985 14:56-0400Body ysdfpdnukgs93.81 [degF]Cris Osegueras DO Work Phone: [facility] Xrbdad06-77-5895 14:56-0400Body fatuqg84.48 kgJorosa Yuholgers DO Work Phone: [facility]MD[facility] Terwye64-79-1912 14:56-0400Diastolic blood mm[Hg]Cris Osegueras DO Work Phone: [facility] Sindxv42-43-3246 14:56-0400Heart rate 75 /minCris Osegueras DO Work Phone: [facility]MD[facility] Sbawar54-82-1191 14:56-0400 Respiratory rate18 /minJorosa Osegueras DO Work Phone: [facility]MD[facility] Wnfypf67-52-1022 14:56-2624FrN4% (BldA) [Mass fraction]98 %Cris Singh DO Work Phone: [facility] Qenxfc18-93-5703 14:56-0400Systolic blood ddpoeans205 mm[Hg]Cris Singh DO Work Phone: [facility] [employer] Xalyxj58-56-4188 13:49-0400Body zlxyzf058.3 cmCris Singh DO Work Phone: [facility] [employer] Rfeias36-88-1020 13:49-0400Body mass index (BMI) [Ratio]24.13 kg/m2Cris Singh DO Work Phone: [facility] Utljqn69-54-0446 13:49-0400Body mxpdkveubzy19.2 [degF]Cris Singh DO Work Phone: [facility] [employer] Pcdynb54-10-9688 13:49-0400Body emdmhc23.47 kgJorosa Singh DO Work Phone: [facility] [employer] Sfwxlo63-25-9368 13:49-0400Diastolic blood vfbsyfzq24 mm[Hg]Cris Singh DO Work Phone: [facility] [employer] Uwvvly96-65-9669 13:49-0400Heart rate 72 /minJorosa Singh DO Work Phone: [facility] [employer] Zpeajv39-07-8290 13:49-3796NnC9% (BldA) [Mass fraction]97 %Cris Singh DO Work Phone: [facility] [employer] Inenvy67-86-4926 13:49-0400Systolic blood azywvuyn499 mm[Hg]Cris Singh DO Work Phone: [facility] Voortr48-24-6638 11:25-0400Body .3 cmCris Singh DO Work Phone: [facility]MD[facility] Diymfa68-55-7441 11:25-0400Body mass index (BMI) [Ratio]22.98 kg/m2Cris Singh DO Work Phone: [facility] [employer] Ziuhwj69-02-1758 11:25-0400Body sqhcdmgfbah83.81 [degF]Cris Singh DO Work Phone: [facility] [employer] Ttkdvs60-39-7256 11:25-0400Body vgmefx42.75 kgCris Singh DO Work Phone: [facility] [employer] Docslt70-54-8041 11:25-0400Diastolic blood bsjagvhq85 mm[Hg]Cris Singh DO Work Phone: [facility] [employer] Wiuwcs16-08-5574 11:25-0400Heart rate 73 /minCris Singh DO Work Phone: [facility] [employer] Swyuwl93-46-7214 11:25-0400 Respiratory rate18 /minCris Singh DO Work Phone: [facility] [employer] Jzagfy41-96-9150 11:25-5772UaV6% (BldA) [Mass fraction]97 %Cris Singh DO Work Phone: [facility] [employer] Reelrg90-77-8292 11:25-0400Systolic blood mmdbegkb267 mm[Hg]Cris Singh DO Work Phone: [facility] [employer] Cmjave49-23-5503 13:33-0400Body kwymns130.3 cmJorosa Singh DO Work Phone: [facility] [employer] Ouoqsm33-13-6868 13:33-0400Body mass index (BMI) [Ratio]22.93 kg/m2Cris Singh DO Work Phone: [facility] [employer] Tgjydu35-07-0726 13:33-0400Body gdktlkijmzd26.01 [degF]Cris Singh DO Work Phone: [facility] [employer] Qeveue34-26-8315 13:33-0400Body savdgm28.57 kgCris Singh DO Work Phone: [facility] [employer] Qruyyj76-63-6356 13:33-0400Diastolic blood vmmuhiwr99 mm[Hg]Cris Singh DO Work Phone: [facility] Idaogt07-15-5273 13:33-0400Heart rate 122 /minJorosa Singh DO Work Phone: [facility]MD[facility] Phlgko15-87-3771 13:33-3852XhJ8% (BldA) [Mass fraction]98 %Cris Singh DO Work Phone: [facility]MD[facility] Fubuab54-61-1138 13:33-0400Systolic blood cbnpiono064 mm[Hg]Cris Singh DO Work Phone: [facility] Encounters Encounter DateEncounter TypeCare ProviderFacilityStart: 06-09-2025 End: 13-62-4565TdxvslFtft L Yimi DO Work Phone: [facility] Family MedicineStart: 05-04-2025 End: 98-18-7404MzwqnyOxvjilst [facility] CenterMedior [facility]icians Internal Medicine - Family MedicineComment on above:Localized osteoarthritis of lumbar spineStart: 04-06-2025 End: 63-39-6581Tqyims outpatient visit 15 minutesRogelio Conway DPM Work Phone: [facility] CI PODIATRYComment on above:Hav (hallux abducto valgus), left (Primary Dx); Pain due to onychomycosis of toenails of both feet; Acquired deformity of left toeStart: 04-06-2025 End: 35-06-0012gfhixooevaCHWVXAJB A BROWNNot AvailableStart: 04-06-2025 End: 40-43-5427Oozybi flowsheetRogelio Conway DPM Work Phone: [facility] CI PODIATRYStart: 04-06-2025 End: 05-97-0493Sszkymcarson Conway DPM Work Phone: [facility] CI PODIATRYStart: 03-30-2025 End: 08-25-5557Imfoer outpatient visit 15 minutesRogelio Conway DPM Work Phone: [facility] CI PODIATRYComment on above:Acquired deformity of left toe (Primary Dx)Start: 03-30-2025 End: 78-08-8474fxzhnnpxaaFOWQMCEE A BROWNNot AvailableStart: 03-30-2025 End: 20-78-9582Ccquqv flowsheetNicholas A Brown DPM Work Phone: noMS CI PODIATRYStart: 03-30-2025 End: 40-79-5802Sjboqb flowsheetNicholas A Brown DPM Work Phone: [facility] CI PODIATRYStart: 03-16-2025 End: 54-07-0152Bpxxqf follow up visit related to original pxRogelio Conway DPM Work Phone: [facility] CI PODIATRYComment on above:Acquired deformity of left toe (Primary Dx)Start: 03-16-2025 End: 71-23-2746qqvaasaovxGHISADII A BROWNNot AvailableStart: 03-16-2025 End: 81-10-6070Cqygkl flowsheetNicholas A Brown DPM Work Phone: [facility] CI PODIATRYStart: 03-16-2025 End: 89-80-4162Brasqj flowsheetNicholas A Brown DPM Work Phone: [facility] CI PODIATRYStart: 03-14-2025 End: 68-87-0781MbjtbwYhjs L Yuhas DO Work Phone: [facility] - Family MedicineComment on above:Localized osteoarthritis of lumbar spineStart: 03-08-2025 End: 05-36-2439Deyhgtgyx encounterRogelio Conway DPM Work Phone: [facility] CI PODIATRYStart: 03-08-2025 End: 87-24-3394aqtovtbbhpLXW Rogelio ConwayFacility:FTMCStart: 03-02-2025 End: 21-91-9750Tsluwz outpatient visit 25 minutesRogelio Conway DPM Work Phone: [facility] CI PODIATRYComment on above:Acquired deformity of left toe (Primary Dx)Start: 03-02-2025 End: 64-84-0085cspsjpxdumNEGYORRS A BROWNNot AvailableStart: 03-02-2025 End: 16-46-4772Pgogwx flowsheetNicangelicary Simon Brown DPM Work Phone: noMS CI PODIATRYStart: 03-02-2025 End: 56-40-6670Mezscw flowsheetNicangelicary Simon Reagan DPM Work Phone: [facility] CI PODIATRYStart: 02-22-2025 End: 67-43-7549Tjmfxt outpatient visit 25 minutesCris Singh DO Work Phone: [facility] - Family MedicineComment on above:Hammer toe of left foot (Primary Dx); Intractable chronic post-traumatic headache; Tobacco abuseStart: 02-22-2025 End: 01-81-0606SxtejdMncr L Yuhas DO Work Phone: [facility] - Family MedicineComment on above:Intractable chronic post-traumatic headacheStart: 02-21-2025 End: 61-43-5638Mtekzu follow up visit related to original pxJus Wisdom MD Work Phone: [facility] [place] FHCComment on above: Cervical spondylosis with myelopathy (Primary Dx)Start: 02-21-2025 End: 81-09-6881olrpqrkajsYEPUS BASHIR BUTTFacility:[facility] Start: 79-42-2743Oeumudond for other preprocedural examinationJUSTIN BOO [facility] CenterStart: 02-21-2025 End: 10-84-1274Hhlwlhk encounter statusXr 1Clevelformerly [facility] ClinicStart: 02-21-2025 End: 41-82-4463Tyhmebyruo hospital visit by physicianXr [facility] 1Xray [place] FHCComment on above:Cervical spinal stenosis [M48.02]Start: 02-13-2025 End: 00-45-5171Oiqcseiwh encounterBilal Laura Wisdom MD Work Phone: [facility] [place] FHCComment on above: Appointment infoStart: 02-07-2025 End: 16-12-3804Hitjle follow up visit related to original Inessa Rankin APRNMarcelaACTUARIAL INTERNSHIP Work Phone: [facility] InstituteComment on above:Cervical spondylosis with myelopathy (Primary Dx)Start: 02-06-2025 End: 53-19-7482ThgkywJamb L Yuhas DO Work Phone: [facility] - Family MedicineComment on above:Intractable chronic post-traumatic headache (Primary Dx); Tobacco abuseStart: 01-26-2025 End: 04-65-9218Lkysag outpatient new 30 minutesNicemely Conway DPM Work Phone: [facility] CI PODIATRYComment on above:Hav (hallux abducto valgus), left (Primary Dx); Acquired deformity of left toe; Pain due to onychomycosis of toenails of both feetStart: 01-26-2025 End: 07-23-0584dllkbsqzvjKWXHONXD A BROWNNot AvailableStart: 01-26-2025 End: 81-55-1174Czptca flowsheetNicemely Conway DPM Work Phone: [facility] CI PODIATRYStart: 01-26-2025 End: 66-05-9364Ypjoaz flowsheetRogelio Conway DPM Work Phone: noMS CI PODIATRYStart: 01-24-2025 End: 68-35-8742Yxgrmwhja encounterBilal Laura Wisdom MD Work Phone: Neurology [place] FHCStart: 01-20-2025 End: 67-94-1834ZptavmFhqvi Bashir Butt MD Work Phone: NeurologyComment on above:Refill RequestStart: 01-07-2025 End: 75-87-8036IykiujPoqm L Yuhas DO Work Phone: [facility] - Family MedicineComment on above:Localized osteoarthritis of lumbar spineStart: 01-04-2025 End: 81-95-1796Vucwcd outpatient visit 15 minutesCris Osegueraromero DO Work Phone: [facility] - Family MedicineComment on above:Hammer toe of left foot (Primary Dx)Start: 01-04-2025 End: 81-14-1858ozgkssyfmkTQVZNorthside Hospital [facility] Ambulatory PPGStart: 12-28-2024 End: 66-87-4608Zbzmhihlp encounterLing Main CMAProMedica Physicians Internal Medicine - Family MedicineStart: 12-27-2024 End: 75-89-6366RucuokYkrmt Bashir Butt MD Work Phone: NeurologyComment on above:Refill RequestStart: 12-14-2024 End: 71-33-7670Toihskqow encounterBilmonster Wisdom MD Work Phone: NeurologyComment on above:Medication ProblemStart: 12-13-2024 End: 04-85-5848Sklbdo outpatient visit 25 minutesNancyrosa Kavitha Singh DO Work Phone: [facility] Internal Medicine - Family MedicineComment on above: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 (Primary Dx); B12 deficiency; Ataxia following other nontraumatic intracranial hemorrhage; 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, subsequent encounter; Tobacco abuse; Hyperlipidemia, unspecified hyperlipidemia typeStart: 12-13-2024 End: 41-35-5096yjjyiphvspJQPWNorthside Hospital Cherokee Ambulatory PPGStart: 12-11-2024 End: 11-72-2078SmqvzyTvmf L Yuhas DO Work Phone: [facility] Internal Medicine - Family MedicineComment on above:Intractable chronic post-traumatic headacheStart: 12-01-2024 End: 16-22-5056Niltdgp encounter procedureAlexa Pacenta [employer] Work Phone: [facility] InstituteComment on above:Cervical spondylosis with myelopathy (Primary Dx); Acute post-operative painStart: 12-01-2024 End: 97-02-1976vhhyvzzjtwFXBFT PACENTAFacility:[facility] Hospitaltart: 11-30-2024 End: 06-27-4148ZpcesiPvudhbb Boggs CMAProMedica Physicians Internal Medicine - Family MedicineComment on above:B12 deficiencyRefill RequestStart: 11-22-2024 End: 83-34-4411Rbbnkefuk encounterJus Wisdom MD Work Phone: NeurologyComment on above:Patient Update; Patient Questionhome care referralsStart: 11-21-2024 End: 64-82-3816YtpdmtOrhy L Yuhas DO Work Phone: [facility] - Family MedicineComment on above:Tobacco abuseStart: 11-16-2024 End: 84-89-6538Sqhojbwsxi and management of inpatientBILAL LAURA BUTT [facility]: 11-14-2024 End: 07-16-0242Zbyqppr evaluation of patient and reportDevaughn Vazquez RN Work Phone: [facility] InstituteComment on above:Spinal stenosis in cervical region (Primary Dx)Start: 11-14-2024 End: 86-70-2133dfmoszmrftYDXYM LAURA BUTTFacility:[facility] Start: 11-01-2024 End: 81-82-1297Ekjzeonew encounterJus Wisdom MD Work Phone: [facility] InstituteStart: 2024 End: 67-43-8565cahzjnjhqyLelnd Mc Coy RNLakeway Hospital3Start: 10-25-2024 End: 47-25-4503Qnetfl outpatient visit 15 minutesJus Wisdom MD Work Phone: [facility] FHCComment on above: Cervical spinal stenosis (Primary Dx); Cervical spondylosis with myelopathyStart: 10-25-2024 End: 32-10-9032qjozmwqaksICLBM LAURA BUTTFacility:[facility] Start: 10-25-2024 End: 16-84-5352Guvrzwvvr to establishmentMerit Health [place]ox[facility] 1Pre AnesthesiaStart: 10-25-2024 End: 46-84-5375enriyltrsxULTMF LAURA WISDOMFacility:[facility] Start: 10-25-2024 End: 28-46-9182Ecsnoqtipq consultationMerit Health [place]i 1Pre AnesthesiaComment on above:Pre-op evaluation (Primary Dx); Current smoker; Traumatic brain injury, with unknown loss of consciousness status, initial encounter (HCC); Essential hypertension; Oropharyngeal dysphagia; Hyperlipidemia, unspecified hyperlipidemia typeStart: 10-25-2024 End: 65-57-9150Vqpaujdqkeuei examination [facility] Start: 10-24-2024 End: 35-96-0575yjnxlkadslIwgwrkg Vytautas Gieditis Facility:[facility] Start: 10-18-2024 End: 39-23-1590Ggzvmfvui encounterBilal Laura Wisdom MD Work Phone: NeurologyComment on above:Patient Question; Preparations For SurgeryStart: 10-14-2024 End: 79-30-4703NgzsluMmov L Yuhas DO Work Phone: [facility] - Family MedicineComment on above:Localized osteoarthritis of lumbar spineStart: 10-12-2024 End: 32-50-5277Chnxhxole encounterBilal Laura Wisdom MD Work Phone: NeurologyComment on above:Patient QuestionStart: 10-11-2024 End: 89-10-9746Znagyav encounter statusBilmonster Wisdom MD Work Phone: [facility] ClinicStart: 10-11-2024 End: 04-67-4201Ddpjojlsk encounterBilmonster Wisdom MD Work Phone: [facility] InstituteStart: 10-11-2024 End: 62-28-2089Ztoany outpatient new 45 minutesBilmonster Wisdom MD Work Phone: [facility] Hospitalomment on above: Spinal stenosis of cervical region (Primary Dx); Cervical spondylosis with myelopathyStart: 10-11-2024 End: 29-43-4195cqwhsheyhhBfybb Bashir Butt MD Work Phone: [facility] InstituteStart: 10-11-2024 End: 21-37-8424Xiqfecsbyr hospital visit by physicianCt [facility] (I-Stat)CT Scan [facility]acon[facility] Hospitalomment on above:Spinal stenosis of cervical region [M48.02]Start: 09-29-2024 End: 27-01-4491NgzaqdJpxbc Stephanie CMAProMedica Physicians Internal Medicine - Family MedicineComment on above:B12 deficiencyStart: 09-26-2024 End: 42-05-5925Xqrtov outpatient visit 15 minutesSavita Alcantara NP Work Phone: ana BELLEVUEComment on above:Lumbar radiculopathy (Primary Dx); Degeneration of intervertebral disc of lumbosacral region with discogenic back pain and lower extremity pain; Weakness of right lower extremity; Cervical spinal stenosis; Weakness of right upper extremity; Chronic daily headache; Polyneuropathy; Chronic right shoulder pain; VertigoStart: 09-26-2024 End: 57-81-7319pkvifsnpnzRVMDE CARROLLNot AvailableStart: 09-26-2024 End: 85-04-9339Sljhbgmignon Alcantara ENVIRONMENTAL COMPLIANCE SPECIALIST Work Phone: aNA EDUARDOUEStart: 09-26-2024 End: 56-98-5812Dhszdccarson Alcantara ENVIRONMENTAL COMPLIANCE SPECIALIST Work Phone: aNA BELLEVUEStart: 08-29-2024 End: 18-79-0202pvfrzytmwkJrtltsw Vytautas Giedraitis MDFacility:[facility] Start: 08-25-2024 End: 71-98-5968Ubwlige encounter procedureAlexa Pacenta DEPUTY [place] [employer] Work Phone: Spzki InstituteComment on above:Spinal stenosis of cervical region (Primary Dx)Start: 08-25-2024 End: 10-06-9360udjjeumagvMLLLV PACENTAFacility:[facility] Hospitaltart: 08-25-2024 End: 11-17-5958Llfqbirvny hospital visit by physicianSusi Huerta J1-4 Work Phone: RadiologyComment on above:Spinal stenosis, lumbar region with neurogenic claudication [M48.062]Start: 08-22-2024 End: 84-77-5865Ukdpmg outpatient visit 25 minutesCris Singh DO Work Phone: [facility] - Family MedicineComment on above: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, subsequent encounter (Primary Dx); Localized osteoarthritis of lumbar spine; Intractable chronic post-traumatic headache; Meniere's disease of both ears; Tobacco abuse; Glaucoma of both eyes, unspecified glaucoma typeStart: 08-22-2024 End: 34-46-5770xauleskmmjVLVJHelen Hayes Hospital Ambulatory PPGStart: 08-09-2024 End: 37-75-2312Ahzxvn outpatient visit 25 Francia Alcantara NP Work Phone: ana BELLEVUEComment on above:Lumbar radiculopathy (Primary Dx); Degeneration of intervertebral disc of lumbosacral region with discogenic back pain and lower extremity pain; Weakness of right lower extremity; Cervical spinal stenosis; Weakness of right upper extremity; Chronic daily headache; Polyneuropathy; Chronic right shoulder pain; VertigoStart: 08-09-2024 End: 58-07-3796mwkealatwjVXMYR CARROLLNot AvailableStart: 07-15-2024 End: 84-89-7718Rrgcc abstractingUnk Pcp (Hist)NeurologyStart: 07-02-2024 End: 83-33-7045FabepnChjl L Yuhas DO Work Phone: [facility] - Family MedicineComment on above:Intractable chronic post-traumatic headacheStart: 06-27-2024 End: 50-16-5029guuvlrwlghGeumtya Vytautas Giedraitis MDFacility:[facility] [place] Start: 06-24-2024 End: 60-64-5868Bdcjdyvrx Result Carl Alcantara NPNOMS External Department UnsolicitedStart: 06-24-2024 End: 43-90-7935Dzzsstrrw Result EncounterSmervat Alcantara NPNOSC External Department UnsolicitedStart: 06-16-2024 End: 48-36-6710Urtrjijvu encounterRamiroyann rGisel [facility] Hospitalca [facility] Hospitaltart: 06-13-2024 End: 41-27-2258QjfjhcBmbgmk [facility] Internal Medicine - Family MedicineComment on above:Intractable chronic post-traumatic headache Start: 06-01-2024 End: 26-76-1361Cemqvf outpatient new 45 minutesPaola Serrano MD Work Phone: noms CI ENTComment on above:Bilateral tinnitus (Primary Dx); Asymmetric SNHL (sensorineural hearing loss); ImbalanceStart: 06-01-2024 End: 21-32-5238plfoxbmetxQBSHNH H TIMMISNot AvailableStart: 05-30-2024 End: 48-15-2067ImcmuvZihe L Yuhas DO Work Phone: [facility] Internal Medicine - Family MedicineComment on above:Intractable chronic post-traumatic headacheStart: 05-25-2024 End: 74-55-2055Xyeleqsy SupportDejose david A Janiya CCC-A Work Phone: noMS CI AUDComment on above:Sensorineural hearing loss (SNHL) of both ears (Primary Dx); Tinnitus, bilateral; Meniere's disease, unspecified lateralityStart: 05-25-2024 End: 92-55-3020Ncjcac flowsheetDeAlta Devicesah A AutoESL CCC-A Work Phone: noMS CI AUDStart: 05-25-2024 End: 59-07-6786Fliemb LittleLivesheetDeAlta Devicesah A AutoESL CCC-A Work Phone: [facility] CI AUDStart: 05-19-2024 End: 40-38-8226Uhmotd outpatient visit 25 minutesCris Singh DO Work Phone: [facility] Internal Medicine - Family MedicineComment on above:Intractable chronic post-traumatic headache (Primary Dx); Localized osteoarthritis of lumbar spine; Glaucoma of both eyes, unspecified glaucoma type; Spondylosis of cervical spineStart: 05-19-2024 End: 13-93-3082ojnmxiragwEZOSBurnett Medical Center PPGStart: 05-16-2024 End: 14-84-0282cjdrawwaowAtakgho Vytautas Gieddeb MDFacility:PM Sarah Start: 05-12-2024 End: 31-47-3719Pdlsyi outpatient visit 25 minutesSavita Quinton ENVIRONMENTAL COMPLIANCE SPECIALIST Work Phone: noms [address] R[address]TEComment on above:Lumbar radiculopathy (Primary Dx); Weakness of right lower extremity; Polyneuropathy; Weakness of right upper extremity; Chronic right shoulder pain; VertigoStart: 05-12-2024 End: 52-86-4451Rmmjej flowsNancy Quinton ENVIRONMENTAL COMPLIANCE SPECIALIST Work Phone: noms [address] R[address]TEStart: 05-12-2024 End: 05-02-9061Exwybx flowsNancy Kaplanoll ENVIRONMENTAL COMPLIANCE SPECIALIST Work Phone: noms [address] ROUTEStart: 05-12-2024 End: 42-41-9581Duascfspd Carl Kaplanoll ENVIRONMENTAL COMPLIANCE SPECIALIST Work Phone: noms [address] ROUTEStart: 05-12-2024 End: 49-22-5685xsyjulbjcuRPZMV CARROLLMercy [facility] AvailableStart: 05-11-2024 End: 84-58-9151VmzftvUfeb L Yuhas DO Work Phone: [facility] - Family MedicineComment on above:Localized osteoarthritis of lumbar spineStart: 05-10-2024 End: 89-98-3833Bprycmo encounter procedureChristopher Mejia DO Work Phone: noms [address] ROUTEComment on above:Cervical radiculopathy (Primary Dx); Weakness of right upper extremity; Carpal tunnel syndrome on rightStart: 05-10-2024 End: 89-09-7743Eyuptj flowsheetChristopher Jackie DO Work Phone: noms [facility] ROUTEStart: 05-10-2024 End: 82-87-4522Gemqjx flowsheetChristopher Jackie DO Work Phone: noms [facility] ROUTEStart: 05-10-2024 End: 42-36-5800woagwkluuxRBZQVZGVOGQ HASSETTNot AvailableStart: 04-29-2024 End: 52-48-9317RammvaWwpk Cooper CMAProMedica Physicians Internal Medicine - Family MedicineComment on above:Intractable chronic post-traumatic headache Start: 04-28-2024 End: 60-52-9603Obqbbt outpatient visit 25 minutesCris Singh DO Work Phone: [facility] - Family MedicineComment on above:Intractable chronic post-traumatic headache (Primary Dx); Ataxia following other nontraumatic intracranial hemorrhage; 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, subsequent encounter; Glaucoma of both eyes, unspecified glaucoma type; Localized osteoarthritis of lumbar spineStart: 04-28-2024 End: 92-68-3311jqqrwtkefmFHCEBurnett Medical Center PPGStart: 03-30-2024 End: 51-64-2577CdmvcbIwys L Ana Rosas DO Work Phone: [facility] Internal Medicine - Family MedicineComment on above:Intractable chronic post-traumatic headacheStart: 03-24-2024 End: 11-92-6210JffearPwde L Ana Rosas DO Work Phone: [facility] - Family MedicineComment on above:B12 deficiencyStart: 03-21-2024 End: 69-99-3360SsyfdxMwsl L Marlinehas DO Work Phone: [facility] Internal Medicine - Family MedicineComment on above:Localized osteoarthritis of lumbar spine (Primary Dx) Start: 20-97-0251Ceelqcg encounter statusChristopher Jackie DO Work Phone: noSC HealthcareStart: 03-08-2024 End: 62-82-3681Bnektn outpatient visit 25 minutesCris Osegueras DO Work Phone: [facility] - Family MedicineComment on above:Intractable chronic post-traumatic headache (Primary Dx); Glaucoma of both eyes, unspecified glaucoma type; Cataract of both eyes, unspecified cataract type; B12 deficiency; Meniere's disease of both ears; Traumatic brain injury, 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 with patient surviving, initial encounter ([facility])Start: 03-08-2024 End: 61-11-4072iopbozoqqdXLUS L [facility] PPGStart: 02-18-2024 End: 97-77-2956Nzncens encounter [facility] [address] Work Phone: Start: 02-18-2024 End: 40-24-3859qlmkxcqmwjPKV STAFFGreen Cross Hospital Ctr Work Phone: Start: 02-08-2024 End: 11-61-0841Mzdbdemfd encounterJorosa Osegueras DO Work Phone: [facility] Family MedicineStart: 12-29-2023 End: 85-36-4468Wbezzs outpatient visit 25 minutesJorosa Osegueras DO Work Phone: [facility] - Family MedicineComment on above: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, subsequent encounter (Primary Dx); Meniere's disease of both ears; Cataract of both eyes, unspecified cataract type; Localized osteoarthritis of lumbar spine; B12 deficiencyStart: 12-22-2023 End: 87-85-1099phrkeozwqgQUESJerica Martinez [facility] HospitalStart: 12-07-2023 End: 71-48-4153yharslqfkzWLRJJerica AmayaSumma Health Barberton Campus HospitalStart: 12-07-2023 End: 92-19-8289Fdpvlk outpatient new 45 minutesCris Plummer Marlinehas DO Work Phone: [facility] - Family MedicineComment on above:Orthostatic hypotension (Primary Dx); Tachycardia; Traumatic brain injury, 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 with patient surviving, initial encounter ([facility]); Lumbar radiculopathy; B12 deficiency; Hyperlipidemia, unspecified hyperlipidemia type; Benign prostatic hyperplasia with lower urinary tract symptoms, symptom details unspecifiedStart: 12-07-2018 End: 91-58-6516Jctxdxx encounter procedureNONE LISTED REQUESTFacility:N8Kyaqb: 26-51-1344Rfzhzfp encounter procedurePAMELA ALLENFacility:H1 Procedures DateProcedureProcedure DetailPerforming ClinicianStart: 60-63-5281Kkyqi depression screening assessmentJorosa Singh DO Work Phone: Start: 32-14-8354Gcloy spine cervical 2 or 3 views Ernie Rankin APRN.[employer] Work Phone: Start: 69-20-9591Mtxnb foot complete minimum 3 views Rogelio Conway DPM Work Phone: Start: 29-30-4768Ebgyd depression screening assessment Cris Singh DO Work Phone: Start: 78-49-2630Tfquutppauweh metabolic panelJorosa Osegueras DO Work Phone: Start: 18-79-3981Gwirc panelJorosa Singh DO Work Phone: Start: 52-57-2761Kpamr depression screening assessment Cris Singh DO Work Phone: Start: 44-38-9215Ndbek 1996 panel - Serum or Plasma Jus Wisdom MD Work Phone: Start: 59-29-6536Zvbaacdz screenJODHAVAL Gardiner on above:Order Comment: Specimen Type: BLOOD SPECIMEN Ordering Facility: [facility] Address: [address] [place], [place] [address]Performed By: #### 2276-4, [id number] #### [facility] CLIA [id number] [address] [place] [address] [place] AMERICAStart: 02-95-7721Ynr routine ecg w/least 12 lds i&r onlyFelicitasashley Nohelia DEPUTY [place] [employer] Work Phone: Start: 59-96-8995Ts cervical spine w/o contrast materialAlexa Pacenta DEPUTY [place] [employer].[employer] Work Phone: Start: 38-16-8048Lymsz spine cervical 4 or 5 views Lois Medeiros PA-C Work Phone: Start: 79-22-4071Fdhbm depression screening assessment Cris Singh DO Work Phone: Start: 18-04-1287PN CERVICAL SPINE WO/W Willy Alcantara NPStart: 37-35-3809MHLKXKUY FUNCTION TESTSShelby Simon [facility] Work Phone: start: 70-00-2322Ukewn depression screening assessment Cris Singh DO Work Phone: Start: 05-10-2024 End: 98-50-7048Bhgepm emg ea extremty w/paraspinl area completeSaragunner Alcantara ENVIRONMENTAL COMPLIANCE SPECIALIST Work Phone: Start: 89-15-4899Yzevx depression screening assessment Cris Singh DO Work Phone: Start: 42-05-4248Gbfchg-up visitFollow-upCRIS Kavitha SINGH Start: 92-28-7946Mvvmb depression screening assessmentCris Singh DO Work Phone: Start: 68-36-0924ST lumbar spine wo conStart: 02-97-4348CP pre/post mri xrayStart: 45-26-4837Ypvdj depression screening assessmentCris Singh DO Work Phone: Start: 12-61-6619Rdp routine ecg w/least 12 lds w/i&r Cris Singh DO Work Phone: Start: 08-35-5196Goeki 1996 panel - Serum or PlasmaUnk (Hist)Start: 63-17-7423Nruxk depression screening assessmentCris Singh DO Work Phone: Plan of Treatment DateCare ActivityDetailGalion Community HospitalrStart: 82-88-4468Bzmzo panelLipid Screening [facility] Hospitaltart: 78-25-6449Gohoy panelLipid ScreeningUniversity Hospitals Ahuja Medical Center Start: 13-97-0202Mubgcwxm ScreeningDiabetes ScreeningProMedica Bay Park Hospitaltart: 44-09-3076Obvapqgl ScreeningDiabetes ScreeningProMedica Bay Park Hospitaltart: 10-26-2027 Diabetes ScreeningDiabetes ScreeningProMedica Bay Park Hospitaltart: 30-47-0852Chiqbyqj ScreeningDiabetes ScreeningProMedica Bay Park Hospitaltart: 79-37-5038Lbuyh BMI Screening Adult BMI ScreeningProPaulding County Hospital SystemStart: 14-84-6400Xyzpshdhbp Screening Depression ScreeningSelect Specialty Hospital - Winston-Salemtart: 06-82-6595Uzyfauk Screening Tobacco ScreeningSelect Specialty Hospital - Winston-Salemtart: 41-02-8751Kfzyu BMI Screening Adult BMI ScreeningProPaulding County Hospital SystemStart: 41-15-7558Ettspmoted Screening Depression ScreeningSelect Specialty Hospital - Winston-Salemtart: 17-48-9519Vleatdi Screening Tobacco ScreeningProGreen Cross Hospitaltart: 47-16-5480Bjlrl BMI Screening Adult BMI ScreeningKettering Memorial Hospital SystemStart: 32-41-9820Knsdwcirxz Screening Depression ScreeningSelect Specialty Hospital - Winston-Salemtart: 64-71-5561Uokjtld Screening Tobacco ScreeningSelect Specialty Hospital - Winston-Salemtart: 46-57-8648CK Controlled (<130/80) BP Controlled (<130/80)[facility] Hospitaltart: 07-06-4937IR Controlled (<130/80) BP Controlled (<130/80)[facility] Hospitaltart: 27-19-3936Bxodg BMI ScreeningAdult BMI ScreeningSelect Specialty Hospital - Winston-Salemtart: 51-90-2076Darshofbpz Screening Depression ScreeningSelect Specialty Hospital - Winston-Salemtart: 33-15-0473Tpgmqji Screening Tobacco ScreeningSelect Specialty Hospital - Winston-Salemtart: 06-22-2025 End: 87-39-1655Sfzhvgg encounter xwljzleaf45/20/2025 3:00 PM EST Procedure Visit [facility] [address] [place] [address] Rogelio Conway DPM [address] [address] [facility] CI PODIATRYStart: 05-24-2025 End: 96-69-8345MT Cervical spine AP and LateralXR CERV GENERAL 2V AP/LAT Radiology Routine Cervical spondylosis with myelopathy Expected: 05/24/2025, Expires: 03/23/2026[facility] Work Phone: Comment on above:Expected: 05/24/2025, Expires: 03/23/2026Start: 66-02-3761Xgwbo BMI ScreeningAdult BMI ScreeningProPaulding County Hospital SystemStart: 24-06-1210Hqqmadexib ScreeningDepression ScreeningProInfirmary Ltac Hospital Health SystemStart: 77-18-8721Lqlifdm ScreeningTobacco ScreeningProInfirmary Lt[facility] Hospital Health SystemStart: 93-91-2898Yscmc BMI ScreeningAdult BMI ScreeningProWright-Patterson Medical Centerca Health SystemStart: 64-77-2908Ybbzessgfj ScreeningDepression ScreeningProWright-Patterson Medical Centerca Health SystemStart: 66-98-3946Gifxokc ScreeningTobacco ScreeningCherrington Hospitalca Health System Start: 04-06-2025 End: 40-29-5527Qpybqin encounter procedureNOMS CI PODIATRYComment on above:Pain due to onychomycosis of toenails of both feet (Primary Dx); Hav (hallux abducto valgus), left; Acquired deformity of left toeStart: 57-01-4444AUXYG-19 Vaccine ( season)COVID-19 Vaccine ( season)[facility] SystemStart: 40-82-6308Uxcinlxhm vaccinationProWright-Patterson Medical Centerca Health SystemStart: 03-30-2025 End: 65-99-4293Iqqirsg encounter pazcszscw54/28/2025 4:40 PM EDT Office Visit [facility] [address] [facility] [address] [place] [address] Rogelio Conway DPM [address] [address] Acquired deformity of left toe (Primary Dx)NOMS CI PODIATRYComment on above:Acquired deformity of left toe (Primary Dx)Start: 03-16-2025 End: 55-08-7120Emqphbo encounter procedureNOMS CI PODIATRYComment on above: Acquired deformity of left toe (Primary Dx)Start: 76-73-2614Iauax BMI Screening Adult BMI ScreeningProPaulding County Hospital SystemStart: 69-65-2123Fdqsewwfxe Screening Depression ScreeningKettering Memorial Hospital SystemStart: 98-26-1287Qljwpyy Screening Tobacco ScreeningProPaulding County Hospital SystemStart: 03-02-2025 End: 33-66-8031Itbefuh encounter ujvoqocad24/31/2025 4:40 PM EDT Office Visit [facility] [address] [place] [address] Rogelio Conway DPM [address] [facility] 5 [place] [address] Acquired deformity of left toe (Primary Dx)NOMS CI PODIATRYComment on above:Acquired deformity of left toe (Primary Dx)Start: 02-21-2025 End: 64-89-9818Yxgqnri encounter procedureSpine Surgery [facility] Comment on above:6 week post op follow up with pre-visit XRXR CERV GENERAL 2V AP/LATStart: 02-07-2025 End: 29-29-4333pxxvpmfkjf58/08/2025 3:15 PM EDT [facility] [address] [place] [address] Ernie Rankin APRN.[employer]NSH[employer] [address] Mail Code [address] [place] [id number] Phone call 12 week post opSpine InstituteComment on above: Phone call 12 week post opStart: 01-26-2025 End: 20-63-1276Hngrham encounter felbwltlr54/26/2025 3:40 PM EDT Office Visit [facility] [address] [place] [address] Rogelio Conway, DPM [address] [facility] 5 [place] [address] ArrivedNOMS CI PODIATRYComment on above:ArrivedStart: 01-24-2025 End: 90-16-4554Yaotxsa encounter procedureANA BELLEVUEComment on above:Post op pre visit XR per staff messageStart: 01-10-2025 End: 79-52-5170Xwkdpbr encounter procedureXray [facility] FHCComment on above:Post opStart: 01-04-2025 End: 51-76-7323Bmxcywr encounter jgzeshsrw89/04/2025 2:30 PM EDT Office Visit [facility] [address] [place] [address] Cris Singh, DO [address] [facility] [place], [id number] [facility] - [facility] MedicineStart: 68-16-3468Pzdec BMI ScreeningAdult BMI ScreeningProMedica Health SystemStart: 08-74-2201Fcdkirrngu ScreeningDepression ScreeningProMedica Health SystemStart: 21-43-9752Irgwciu ScreeningTobacco ScreeningProMedica Health SystemStart: 12-13-2024 End: 84-87-4763Dbrmwxv encounter auogpsnxr84/13/2025 1:30 PM EDT Office Visit [facility] [address] [place] [address] Cris Singh, DO [address] [place], [id number] [facility] - [facility] MedicineStart: 71-26-7817Lwhsd BMI ScreeningAdult BMI ScreeningProMedica Health SystemStart: 45-33-4152Wwboyxq ScreeningTobacco ScreeningProMedica Health SystemStart: 12-01-2024 End: 99-03-1583Zztchvh encounter gejkjdaev35/01/2025 2:15 PM EDT Office Visit [facility] [address] [place] [address] Ernie Rankin APRN.[employer]NSHIP [address] [facility] Mail Code [address] [place] [address] Post opSpine InstituteComment on above:Post opStart: 11-16-2024 End: 99-25-1569Narlayrxy to same day surgery [facility] Operating RoomComment on above:CERVICAL LAMINOPLASTY WITH DECOMPRESSION 2 OR MORE SEGMENTS Start: 11-16-2024 End: 79-78-7638Bvxva cervical w/dcmprn spi cord 2/> vert segCERVICAL LAMINOPLASTY WITH DECOMPRESSION 2 OR MORE SEGMENTS Cervical spinal stenosis Cervical spondylosis with myelopathy Pre-op testing 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) Anemia following surgery 11/16/2024 7:30 AM EDTLU ORStart: 19-48-5686Fmtppcacqf hospital visit by [facility] Operating RoomComment on above:Cervical spinal stenosis [M48.02], Cervical spondylosis with myelopathy [M47.12], Pre-op testing [Z01.818], 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], Anemia following surgery [D64.9]Start: 11-14-2024 End: 89-53-5635Oebxzpq evaluation of patient and odahqq1211/14/2024 3:00 PM EDT Nurse Visit [facility] [address] [place] [address] Devauhgn Vazquez, JUANITA [address] [place] [phone] Pre opSpine InstituteComment on above:Pre opStart: 10-25-2024 End: 13-75-3253Atxqatu encounter ivizwkdes91/25/2025 3:40 PM EDT Office Visit Spine Surgery [facility] [address] [place] [address] Jus Wisdom MD [address] [place] [id number] Pre opSpine Surgery [facility]acon[facility] Hospitalomment on above:Pre opStart: 10-25-2024 End: 11-33-9648oqfoqgxayn32/25/2025 2:45 PM EDT Results Only [facility] Draw Station [address] [place] [address] Pre opMidWashington [facility] Draw StationComment on above:Pre opStart: 10-25-2024 End: 40-04-0087Uclnwbwvsrrhp metabolic 2000 panel - Serum or PlasmaKettering Health Springfield Work Phone: Comment on above:Expected: 10/25/2024, Expires: 01/24/2025Start: 10-25-2024 End: 27-19-6888AHABEUU BLOOD TYPEUniversity Hospitals Ahuja Medical CenterComment on above:Expected: 10/25/2024, Expires: 01/24/2025Start: 10-25-2024 End: 69-13-1496OMAPARTUFVSCTB AUREUS & MRSA SCREEN, PCR, NASALSTAPHYLOCOCCUS AUREUS & MRSA SCREEN, PCR, NASAL Lab Routine Cervical spinal stenosis Cervical spondylosis with myelopathy Pre-op testing 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) Anemia following surgery Expected: 10/25/2024, Expires: 04/09/2025leveland ClinicComment on above:Expected: 10/25/2024, Expires: 04/09/2025Start: 10-25-2024 End: 37-68-7029Smntmvtotz btsnreeuqybe32/25/2025 1:40 PM EDT PAT Pre Anesthesia [address] [place] [address] [phone], Pacc [address] [address] [place] [address] Pre opPre AnesthesiaComment on above:Pre opStart: 10-11-2024 End: 45-56-7976XSR W Auto Differential panel - BloodCOMPLETE BLOOD COUNT AND DIFFERENTIAL Lab Routine Cervical spinal stenosis Cervical spondylosis with myelopathy Pre-op testing 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) Anemia following surgery Expected: 10/11/2024, Expires: 01/10/2025[facility] ClinicComment on above:Expected: 10/11/2024, Expires: 01/10/2025Start: 10-11-2024 End: 87-38-9960Mwbsegct [Mass/volume] in Serum or PlasmaFERRITIN Lab Routine Cervical spinal stenosis Cervical spondylosis with myelopathy Pre-op testing No spected carrier of methicillin resistant Staphylococcus aureus (MRSA) Anemia following surgery Expected: 10/11/2024, Expires: 01/10/2025[facility] Comment on above:Expected: 10/11/2024, Expires: 01/10/2025Start: 10-11-2024 End: 67-00-6825Ogmz and Iron binding capacity panel - Serum or PlasmaIRON AND TIBC Lab Routine Cervical spinal stenosis Cervical spondylosis with myelopathy Pre-op testing 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) Anemia following surgeryExpected: 10/11/2024, Expires: 01/10/2025 [facility]huja Medical CenterComment on above:Expected: 10/11/2024, Expires: 01/10/2025Start: 10-11-2024 End: 59-44-3551QUOZWSCMQKGG, HEMOGLOBINRETICULOCYTE, HEMOGLOBIN Lab Routine Cervical spinal stenosis Cervical spondylosis with myelopathy Pre-op testing 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) Anemia following surgery Expected: 10/11/2024, Expires: 01/10/2025[facility] Comment on above:Expected: 10/11/2024, Expires: 01/10/2025Start: 09-26-2024 End: 23-63-5124Ynopwkk encounter procedureANA BELLEVUEComment on above:Arrived Start: 08-22-2024 End: 64-00-3733Cmxblqt encounter gexnyveqv02/20/2025 2:30 PM EST Office Visit [facility] [address] [facility] [place] [address] Cris Singh DO [address] [facility] [place], [id number] [facility] - Family MedicineStart: 06-15-2024 End: 76-97-5268Srbtlrt encounter mkfmouwmv01/13/2024 2:40 PM EST Office Visit [facility] [address] [place] [address] Savita Alcantara, ENVIRONMENTAL COMPLIANCE SPECIALIST [address] [place] [address] [facility] ROUTEStart: 06-01-2024 End: 01-99-5785Psvxlzp encounter /30/2024 1:10 PM EDT Office Visit [facility] [address] [facility] [address] [place] [address] Paola Serrano MD [address] [facility] [address] [place], [place] [id number] NOM[facility] CI ENTStart: 05-25-2024 End: 08-00-1017Zmsadqjm Sjjpkpd7505/25/2024 2:30 PM EDT Clinical Support [facility] AUD [address] [facility] [address] [place] [address] Shelby Torres, [facility]A [address] [facility] [place] [address] [facility] CI AUDStart: 05-19-2024 End: 61-11-9724Kqwztxe encounter fthidcqcy74/17/2024 12:30 PM EDT Office Visit [facility] [address] [facility] [place] [address] Cris Singh, [address] [place] [address] [facility] - Family MedicineStart: 05-17-2024 End: 86-29-6748ZM Cervical spine WO and W contrast IVMR cervical spine w and wo contrast Imaging Routine Weakness of right upper extremity Expected: 05/17/2024 (Approximate), Expires: 05/17/2025[facility] Work Phone: comment on above:Expected: 05/17/2024 (Approximate), Expires: 05/17/2025Start: 05-12-2024 End: 18-66-7095Gkrbmjd encounter procedureAULTMAN ORRVILLE HOSPITAL ROUTEComment on above:Lumbar radiculopathy (Primary Dx); Weakness of right lower extremity; Polyneuropathy; Weakness of right upper extremityStart: 05-10-2024 End: 17-17-1551Bzffahd encounter fcjwfiaqi01/08/2024 2:30 PM EDT Procedure Visit [facility] [address] [place] [address] Deanna Mejia DO [address] [place] [address] ArrivedNOMERCY HEALTH SPRING[facility] ROUTEComment on above:ArrivedStart: 04-26-2024 End: 79-97-9699Eyglvov encounter sodqbpdxf97/24/2024 2:00 PM EDT [facility] [address] [place] [address] Cris Singh DO [address] [facility] [place], [id number] [facility] - Family MedicineStart: 76-98-3317YIPEC-19 Vaccine ( season)COVID-19 Vaccine ( season)[facility] SystemStart: 35-59-5890PGKEO-19 Vaccine ( season)COVID-19 Vaccine ( season)[facility] SystemStart: 31-33-0373Tlplksssm vaccinationLafayette Regional Health CenterStart: 03-08-2024 End: 75-97-5289Wixjdms encounter /06/2024 1:45 PM EDT [facility] [address] [place] [address] Cris Singh, DO [address] [facility], [id number] [facility] Physicians Internal Medicine - Family MedicineStart: 05-85-0940Htruvrgqok Screening Depression ScreeningProPaulding County Hospital SystemStart: 12-07-2023 End: 56-26-7225ND Brain WO contrastMR brain without contrast Imaging Routine Traumatic brain injury, 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 with patient surviving, initial encoun ter ([facility]) Expected: 12/07/2023, Expires: 12/06/2024[facility] Work Phone: Comment on above:Expected: 12/07/2023, Expires: 12/06/2024Start: 39-02-1709KWZRP-19 Vaccine ( season)COVID-19 Vaccine ( season)[facility]Salemtart: 52-99-1642Lnltajoj specific antigen measurementProstate Cancer Screening DiscussionProMedica Bay Park Hospitaltart: 24-28-4466Znmvruzjmwcyki of varicella zoster vaccineZoster (Shingles) Vaccine (1 of 2)[facility] SystemStart: 82-80-5051Swlkpirnanrn Vaccine: 50+ (1 of 1 - PCV)Pneumococcal Vaccine: 50+ (1 of 1 - PCV)[facility] Hospitaltart: 2016 Shingrix Vaccine (1 of 2)Shingrix Vaccine (1 of 2)[facility] Hospitaltart: 01-02-4254Qhcjxhel specific antigen measurementProstate Cancer Screening DiscussionProMedica Bay Park Hospitaltart: 14-45-8597Tyfvflkze for malignant neoplasm of colonProMedica Bay Park Hospitaltart: 58-55-7453CFpM,Tdap and Td Vaccines (1 - Tdap) DTaP,Tdap and Td Vaccines (1 - Tdap)[facility] Hepatitis B Vaccine (1 of 3 - 19+ 3-dose series)Hepatitis B Vaccine (1 of 3 - 19+ 3-dose series)[facility] Hospital[facility]art: 08-88-0990Wzyokkhutbyf Vaccine: 50+ (1 of 2 - PCV)Pneumococcal Vaccine: 50+ (1 of 2 - PCV)[facility] Hospitaltart: 76-30-4127Jxzvq microalbumin profileDTaP,Tdap,Td Vaccine (1 - Tdap)[facility]: 30-12-7029Npmyb BMI Follow Up PlanAdult BMI Follow Up [facility]: 52-51-5864Fpkpiy PCP Team Chronic Disease VisitAnnual PCP Team Chronic Disease VisitProMedica Bay Park Hospitaltart: 26-28-1856Lxteyrn Screening Anxiety ScreeningProMedica Bay Park Hospitaltart: 46-54-7874ZT Controlled (<130/80)BP Controlled (<130/80)[facility]: 44-34-7445Sjlpfwixki Screening Depression ScreeningProMedica Bay Park Hospitaltart: 26-68-1586Ykkgcqaxr C screening Hepatitis C ScreeningProMedica Bay Park Hospitaltart: 90-95-8243NPQ screeningHIV Screening [facility]rt: 07-19-3327Wxaydsvyb for malignant neoplasm of colonNOMS HealthcareStart: 80-96-8961Tmqdxnq CounselingTobacco CounselingWilson Health End: 30-34-2093IE Cervical spine WO contrastCT CERVICAL SPINE WO IVCON Radiology Routine Spinal stenosis of cervical region 1 Occurrences starting 08/25/2024 until 09/24/2025[facility] Work Phone: Comment on above:1 Occurrences starting 08/25/2024 until 09/24/2025ECG COMPLETEECG COMPLETE ECG Routine Pre-op evaluation 10/25/2024 1:58 PM [facility] ClinicLamop cervical w/dcmprn spi cord 2/> vert segCERVICAL LAMINOPLASTY WITH DECOMPRESSION 2 OR MORE SEGMENTS Cervical spinal stenosis Cervical spondylosis with myelopathy Pre-op testing 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) Anemia following surgeryLU ORPOCT EKGPOCT EKG ECG Routine Tachycardia 12/07/2023 2:32 PM [facility] FOR ADMIT INTERVIEWREFER FOR ADMIT INTERVIEW Procedures Routine Cervical spinal stenosis Cervical spondylosis with myelopathy Pre-op testing 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) Anemia following surgery Ordered: 10/11/2024[facility] [employer] Work Phone: Comment on above:Ordered: 10/11/2024TYPE AND SCREEN,30 DAYTYPE AND SCREEN,30 DAY Blood Bank Routine Pre-op evaluation 10/25/2024 2:49 PM [facility]TCleveland [facility] End: 75-44-9769WV CERV OTHER 4V AP/LAT/FLX/EXTXR CERV OTHER 4V AP/LAT/FLX/EXT Radiology Routine Cervical stenosis of spinal canal 1 Occurrences starting 07/20/2024 until 6[facility] ClinicComment on above:1 Occurrences starting 07/20/2024 until 08/19/2025 End: 38-65-3081PE Cervical spine AP and LateralXR CERV GENERAL 2V AP/LAT Radiology Routine Cervical spinal stenosis Cervical spondylosis with myelopathy Pre-op testing 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) Anemiafollowing surgery 1 Occurrences starting 10/11/2024 until 11/10/2025leveland ClinicComment on above:1 Occurrences starting 10/11/2024 until 11/10/2025 End: 11-64-2049VU Lumbar spine Views W flexion and W extensionXR LUMBAR MOTION 4V AP/LAT/ FLEX/EXT Radiology Routine Spinal stenosis, lumbar region with neurogenic claudication 1 Occurrences starting 07/20/2024 until 08/19/2025 [facility] Work Phone: Comment on above:1 Occurrences starting 07/20/2024 until 08/19/2025 Payers DatePayer CategoryPayerPolicy [id number] [facility] [id number]5-7378Qokf [facility] Managed Care - OtherANTHEM [id number] 92-09-7931Ncbskzy6.2.840.032827.1.13.693.2.7.3.886903.315 2023Medicaid [facility] MEDICAID on file Frsmfpz: [address] [place] [id number] [id number] [facility] MEDICAID Member Subscriber Plan / Payer (Effective 2020-Present) Name: Bee Harris Relation to Subscriber: Self Name: Bee Harris Payer ID: Not on file Group ID: [id number] Type: Not on file Address: [address] [place] [id number] 2020Medicaid [id number] [id number]. [id number] 840.1.490913.3.57[id number] 2.840.1.956546.3.57[id number] 2.840.1.742215.3.57[id number] 2.840.1.258739.3.57[id number] 2.840.1.882255.3.57[id number] 2.0.1.816334.3.57[id number] 2.0.1.872888.3.57[id number] 2.0.1.412894.3.57[id number] 2.0.1.796630.3.57[id number] 2..1.452874.3.57[id number] 2..1.167467.3.57[id number] 2..1.397638.3.57[id number] 2..1.553004.3.57[id number] 2.0.1.049283.3.57[id number] 2.840.1.242427.3.57[id number] 2.16.840.1.310626.3.57[id number] 2.0.1.579067.3.57[id number] 2.840.1.294691.3.57[id number] 2.0.1.963819.3.57[id number] 2.0.1.716359.3.57[id number] 2.0.1.524786.3.57[id number] 2.0.1.891369.3.57[id number] 2.0.1.345657.3.57[id number] 2.0.1.839219.3.57[id number] 2.0.1.112109.3.57[id number] 2.0.1.129036.3.57[id number] 2.0.1.475832.3.579.2.[id number] 2.0.1.484522.3.57[id number] 2.840.1.631961.3.579.2.604874-13-4063Xmzi-vgs87910581430-11-9249Swkvozv [id number] [id number] 2.16.840.1.867831.3.579.2.531 Social History DateTypeDetailFacilityStart: 45-63-4275Oqvtpqk smoking status NHISSmoker (finding)[facility]ertart: 02-49-6060[facility]: 12-07-2023 End: 23-45-4752Gtckddb smoking status NHISSmokes tobacco dailyNOMS Healthcare History of tobacco useCigarette SmokerKettering Memorial Hospital SystemStart: 12-07-2023 End: 21-92-2575Dzahdsz use and exposureSmokeless tobacco non-userKettering Memorial Hospital SystemStart: 03-08-2024 End: 10-01-5125Tkfjsbvim beverage intakeCurrent drinker of alcohol (finding) [facility] SystemStart: 10-16-2020 End: 02-07-3131Zwyhsfu of Social functionKettering Memorial Hospital SystemStart: 10-16-2020 End: 21-61-0699Hgodywj use panelKettering Memorial Hospital SystemStart: 90-91-5460Skq assigned at birthNot on fileKettering Memorial Hospital SystemStart: 05-19-2024 End: 51-95-2842Pwksmrofy beverage intakeEx-drinker (finding)[facility] SystemDo you belong to any clubs or organizations such as hindu groups, unions, fraternal or athletic groups, or school groups?NoPMarion Hospital SystemAre you now , , , , never or living with a partner?Never marriedKettering Memorial Hospital SystemHow hard is it for you to pay for the very basics like food, housing, medical care, and heatingSomewhat hard [facility] SystemStart: 77-60-5362Teppamrwnk depression screening xldthhcnzj6UwcKqgscl Health SystemStart: 64-29-1567Ahftkjv Commentonce a while [facility] SystemStart: 41-36-0092IqzLpft (finding)[facility] Tobacco smoking status NHISTobacco smoking consumption unknownC[facility] Clinic (I/We) worried whether (my/our) food would run out before (I/we) got money to buy more.Never trueUniversity Hospitals Ahuja Medical CenterIn the past 12 months, was there a time when you were not able to pay the mortgage or rent on time?YesUniversity Hospitals Ahuja Medical Center Medical Equipment Procedure CodeEquipment CodeEquipment Original TextEquipment IdentifierDates Plate Canopy 7mm Bone Shelf Inline [id number]: 70-02-0977Omdzk Canopy 2.6mm 4mm Bone Self Drill Laminoplasty Spine - [id number]: 67-57-2227Wgpeyt 2.6mm Screw Self-Drilling [id number]: 11-16-2024 Goals DatePatient GoalDesired Activity/StatePersonal health goalComment on above: Evaluation of progress towards goal: patient anticipates discharge home with home care at this timePersonal health goalComment on above: Evaluation of progress towards goal: Patient is planning to transition to inpatient rehab. Functional Status BchkMwbnijrboqRbhmeiJmyvwelj60-81-0524Pee you deaf, or do you have serious difficulty hearingNo 11/19/2024 11:04 AM Lisa Chandler RN [facility] CenterYhnkjj23-43-1239Ylm you blind, or do you have serious difficulty seeing, even when wearing glassesNo 11/19/2024 11:04 AM Lisa Chandler RN No [facility]huja Medical CenterLeimih77-57-8842Ut you have serious difficulty walking or climbing stairsNo 11/19/2024 11:04 AM Lisa Chandler RN [facility] 04-45-7571Gc you have difficulty dressing or bathingNo 11/19/2024 11:04 AM Lisa Chandler RN [facility] CenterFcpcul51-49-9358Mpqrlpc of a physical, mental, or emotional condition, do you have difficulty doing errands alone such as visiting a physician's office or shoppingNo 11/19/2024 11:04 AM Lisa Chandler RN [facility] Mental Status HvwnHftjfcztpfHlnauaUtprckwt27-97-5142Cbpjliy of a physical, mental, or emotional condition, do you have serious difficulty concentrating, remembering, or making decisionsNo 11/19/2024 11:04 AM EDT Lisa Sheridan RN No [facility] Clinical Notes 12-07-2023 to 03-16-2025 Note Date & FljkGrroMvyeacci16-25-4340 History of Present illness Narrative* Rogelio Conway, BEN - 03/16/2025 4:20 PM EDT Patient: Bee Harris : 1965 [...] Meniere's disease Polyneuropathy Smoker Traumatic brain injury ([facility]) Medications: Current Outpatient Medications: acetaminophen (Tylenol) 500 [...] in the morning., Disp: , Rfl: HYDROcodone-acetaminophen ([place]) 7.5-325 MG tablet, Take 1 tablet by [...] p.r.n. Rogelio Conway DPM documented in this [facility]08-06-2025 Telephone encounter Note* Telephone Encounter - Rogelio Conway DPM - 03/08/2025 9:08 AM EDT Pt refill of pain medication due to sx today [facility] CenterQufrbtiwuy39-90-7821 Miscellaneous Notes* Telephone Encounter - Rogelio Conway DPM - 03/08/2025 9:08 AM EDT Pt refill of pain medication due to sx today documented in this encounterLafayette Regional Health CenterOumqwhzhjc15-21-8827 History of Present illness Narrative* Cris Singh, DO - 02/22/2025 2:45 PM EDT IM PROGRESS NOTE Patient - Bee Harris [...] Cardiovascular risk score >7.5%, or ASCVD Risk Helmet Binder >5%, then score 1 point, otherwise 0: [...] 1 drop to both eyes nightly., Disp: ,Rfl: meloxicam (MOBIC) 15 mg tablet, TAKE 1 [...] No results found. ECG: Cris Singh DO., [facility] Office: [phone] documented in this encounterWilson Health07-22-2025 NoteHNO ID: [id number] Author: JUS WISDOM MD Service: ? Author [...] DATE: February 21, 2025 TIME: 3:01 PM PAGER:[facility]07-22-2025 History of Present illness Narrative* Jus Wisdom MD - 02/21/2025 3:01 PM EDT SPINE SURGERY FOLLOW UP This is an in-person visit. SERVICE DATE: 02/21/2025 SURGERY DATE: 11/16/2024 SURGERY: C3-C5 laminoplasty INDICATIONS: balance issues and fine motor tasks issues. Cervical MRI revealed severe stenosis fromC3-C5 Bee Harris is seen for 3 month post operative follow up. Ar reports that he is doing okay. Continues to report his chronic neck pain. He understood that this was a possibility given his significant degenerative changes on his preoperative imaging. But hedesire to retain as much motion as possible. [...] TIME: 3:01 PM PAGER: documented in this encounterUniversity Hospitals Ahuja Medical Center07-14-2025 Miscellaneous Notes* Telephone Encounter - Víctor Puente - 02/13/2025 2:32 PM EDT Scheduled. * Telephone Encounter - Eloise Edgar OCCA - 02/13/2025 11:37 AM EDTSummary: Appointment Info Attempted to call pt at number provided in chart, lvm letting pt know he needs an xray prior to hisappointment with Dr. Wisdom on 02/21. Nothing further. documented in this encounterUniversity Hospitals Ahuja Medical Center07-14-2025 Telephone encounter Note * Telephone Encounter - Víctor Puente - 02/13/2025 2:32 PM EDT Scheduled. [facility]07-14-2025 Telephone encounter Note* Telephone Encounter - Eloise Edgar OCCA - 02/13/2025 11:37 AM EDTSummary: Appointment Info Attempted to call pt at number provided in chart, lvm letting pt know he needs an xray prior to hisappointment with Dr. Wisdom on 02/21. Nothing further. [facility]07-08-2025 History of Present illness Narrative* Ernie Rankin APRN.ACTUARIAL INTERNSHIP - 02/07/2025 3:15 PM EDT SPINE SURGERY FOLLOW UP This is a virtual visit using Audio Only Visit. It required patient-provider interaction for the medical decision making as documented below. I have communicated my name and active licensure. The patient's identity and physical location wereverified at the time of this visit. Either the patient or their legal access services representative has been informed of the risks and benefits of -- and alternatives to -- treatment through a remote evaluation andconsents to proceed with the evaluation remotely. SERVICE DATE: 02/07/2025 SURGERY DATE: 11/16/2024 SURGERY: C3-C5 laminoplasty INDICATIONS: balance issues and fine motor tasks issues. Cervical MRI revealed severe stenosis fromC3-C5 Bee Harris is seen for 12 week [...] scheduled to follow up with his pain auto care center manager tomorrow for continued narcotic prescriptions, as [...] will need to come from his pain auto care center manager who prescribed them chronically prior to [...] TIME: 2:49 PM PAGER: documented in this encounterUniversity Hospitals Ahuja Medical Center07-08-2025 NoteHNO ID: [id number] Author: ERNIE RANKIN APRN.CNP Service: ? Author [...] visit. Either the patient or their legal access services representative has been informed of the risks [...] scheduled to follow up with his pain auto care center manager tomorrow for continued narcotic prescriptions, as [...] will need to come from his pain auto care center manager who prescribed them chronically prior to [...] DATE: February 07, 2025 TIME: 2:49 PM PAGER:[facility]06-26-2025 History of Present illness Narrative* Rogelio Conway DPM - 01/26/2025 3:40 PM EDT Patient: Bee Harris : [...] Meniere's disease Polyneuropathy Smoker Traumatic brain injury ([facility]) Medications: Current Outpatient Medications: naloxone (Narcan) 4 [...] in the morning., Disp: , Rfl: HYDROcodone-acetaminophen ([place]) 7.5-325 MG tablet, Take 1 tablet by [...] Strain: Low Risk (08/21/2022) Received from [facility] Overall Financial Resource Strain (CARDIA) Difficulty of Paying Living Expenses: Not hard at all Food Insecurity: Food Insecurity Present (01/04/2025) Received from [facility] Hunger Screening Within the past 12 months we worried whether our food would run out before we got money to buy more.: Sometimes True Within the past 12 months the food we bought just didn't last and we didn't have money to get more.: Sometimes True Transportation Needs: No Transportation Needs (11/17/2024) [facility] PRAPARE - Transportation Lack of Transportation (Medical): No Lack of Transportation (Non-Medical): No Physical Activity: Sufficiently Active (08/21/2022) Received from [facility] Exercise Vital Sign Days of Exercise per Week: 5 days Minutes of Exercise per Session: 30 min Stress: No Stress Concern Present (08/21/2022) Received from [facility] [place] [employer] - Occupational Stress Questionnaire Feeling of Stress : Not at all Social Connections: Socially Isolated (08/21/2022) Received from [facility] Social Connection and Isolation Panel [NHANES] Frequency of Communication with Friends and Family: More than three times a week Frequency of Social Gatherings with Friends and Family: More than three times a week Attends Restorationist Services: Never Active Member of Clubs or Organizations: No Attends Club or Organization Meetings: Never Marital Status: Intimate Partner Violence: Unknown (09/24/2023) Received from [facility] [place] Safety & Environment Fear of Current or Ex-Partner: Not on file Emotionally Abused: Not on file Physically Abused: Not on file Sexually Abused: Not on file Physically or Sexually Abused: Not on file Housing Stability: High Risk (11/17/2024) [facility] Housing Stability Vital Sign Unable to Pay [...] Patient may continue with conservative treatments including cgxa-ddu-memlwjw anti- inflammatories and other treatments suggested today. Patient may want to be s cheduled for surgical intervention in the near future. Patient have left 2nd toe amputation in nearfuture Rogelio Conway DPM documented in this encounterLafayette Regional Health CenterKqxkxkvpmy02-31-1121 Telephone encounter Note* Telephone Encounter - Víctor Puente - 01/24/2025 1:53 PM EDT Patient had to cancel his 6 week post op follow up due to his provide a ride did not show up. He isscheduled for 03/28/2025. There was nothing sooner. On wait list. He needs 2 days notice to get ridescheduled. Can we get him in sooner due to being post op? Please advise. [phone] [facility]06-24-2025 Miscellaneous Notes* Telephone Encounter - Víctor Puente - 01/24/2025 1:53 PM EDT Patient had to cancel his 6 week post op follow up due to his provide a ride did not show up. He isscheduled for 03/28/2025. There was nothing sooner. On wait list. He needs 2 days notice to get ridescheduled. Can we get him in sooner due to being post op? Please advise. [phone] documented in this encounterUniversity Hospitals Ahuja Medical Center06-20-2025 Telephone encounter Note * Telephone Encounter - Ernie Rankin APRN.CNP - 01/20/2025 1:14 PM EDT Patient requesting pain rx refill. Currently 9 weeks post op. PDMP verified. Refill appropriate. Pain management to take over prescribing from here, given chronic narcotics prior to surgery. Ernie Rankin APRN.CNP [facility]06-20-2025 Miscellaneous Notes* Telephone Encounter - Ernie Rankin APRN.CNP - 01/20/2025 1:14 PM EDT Patient requesting pain rx refill. Currently 9 weeks post op. PDMP verified. Refill appropriate. Pain management to take over prescribing from here, given chronic narcotics prior to surgery. Ernie Rankin APRN.ACTUARIAL INTERNSHIP * Telephone Encounter - Devaughn Vazquez RN - 01/20/2025 12:41 PM EDT Call to the pt to clarify his follow up schedule for Pain Management. Plan for PM to take over his pain medication at the 12-01-24 The apt was scheduled for 02-05-25 for PM . As per pt- no sooner availability. I have encouraged the pt to reach out and be placed on CX list serafin . Will review with team * Telephone Encounter - Devaughn Vazquez RN - 01/20/2025 12:11 PM EDT Neuro SPINE CARE COORDINATION QUICK NOTE SURGERY DATE: 11/16/2024 SURGERY: C3-C5 laminoplasty Post op apt next week Routed to BRITTNY for review. * Telephone Encounter - Petros Pollard - 01/20/2025 11:21 AM EDT Patient phones requesting refills as follows: Requested Prescriptions Pending Prescriptions Disp Refills oxyCODONE IR (ROXICODONE) 5 mg immediate release tablet 28 tablet 0 Sig: Take 1 tablet by mouth every 6 hours as needed for pain for up to 7 days. Last visit: 12/27/2024 Pharmacy: [facility]- [facility]/pharmacy #[id number] [place] [address] [address] [facility] [phone] Current Dosage: Patient is currently taking 3 pills/day; Has 2 left. Future OV: 01/24 with MD Please review and advise. Petros Pollard documented in this encounterUniversity Hospitals Ahuja Medical Center06-20-2025 Telephone encounter Note * Telephone Encounter - Devaughn Vazquez RN - 01/20/2025 12:41 PM EDT Call to the pt to clarify his follow up schedule for Pain Management. Plan for PM to take over his pain medication at the [address] The apt was scheduled for 02-05-25 for PM . As per pt- no sooner availability. I have encouraged the pt to reach out and be placed on CX list serafin . Will review with team [facility] Work Phone: 1(189) 420-240806-20-2025 Telephone encounter Note* Telephone Encounter - Devaughn Vazquez RN - 01/20/2025 12:11 PM EDT Neuro SPINE CARE COORDINATION QUICK NOTE SURGERY DATE: 11/16/2024 SURGERY: C3-C5 laminoplasty Post op apt next week Routed to BRITTNY for review. [facility]06-20-2025 Telephone encounter Note* Telephone Encounter - Petros Pollard - 01/20/2025 11:21 AM EDT Patient phones requesting refills as follows: Requested Prescriptions Pending Prescriptions Disp Refills oxyCODONE IR (ROXICODONE) 5 mg immediate release tablet 28 tablet 0 Sig: Take 1 tablet by mouth every 6 hours as needed for pain for up to 7 days. Last visit: 12/27/2024 Pharmacy: [facility]/pharmacy #[id number] [place] [address] - [address] [facility] - [phone] Current Dosage: Patient is currently taking 3 pills/day; Has 2 left. Future OV: 01/24 with Please review and advise. Petros Pollard [facility]06-04-2025 History of Present illness Narrative* Cris Singh DO - 01/04/2025 2:30 PM EDT IM PROGRESS NOTE Patient - Bee Harris Age - 59 y.o. - 1965 [facility] # - [id number] ASSESSMENT & PLAN 1. Hammer toe of [...] recommended to have surgery on the right foot,but got canceled due to his other medical [...] Wt 86.2 kg (190 lb) SpO2 97% BMI26.51 kg/m Physical Exam Vitals reviewed. Constitutional: General: [...] 1 drop to both eyes nightly., Disp: ,Rfl: meloxicam (MOBIC) 15 mg tablet, TAKE 1 [...] Testing No results found. Cris Singh DO., [facility] Office: [phone] documented in this encounterWilson Health05-28-2025 Miscellaneous Notes* Telephone Encounter - Ling Main CMA - 12/28/2024 8:43 AM EDT Spoke with pt and he understood his results. I scheduled him an appt. With Dr. Singh regarding a referral to a Review Analyst. documented in this encounterWilson Health05-28-2025 Telephone encounter Note* Telephone Encounter - Ling Main CMA - 12/28/2024 8:43 AM EDT Spoke with pt and he understood his results. I scheduled him an appt. With Dr. Singh regarding a referral to a Review Analyst. [facility]05-27-2025 Telephone encounter Note* Telephone Encounter - Ernie Rankin APRN.CNP - 12/27/2024 5:14 PM EDT Patient requesting pain rx refill. PDMP verified. Refill appropriate. Ernie Rankin APRN.CNP [facility]05-27-2025 Miscellaneous Notes* Telephone Encounter - Ernie Rankin APRN.CNP - 12/27/2024 5:14 PM EDT Patient requesting pain rx refill. PDMP verified. Refill appropriate. Ernie Pacenta, DEPUTY [place] [employer].ACTUARIAL INTERNSHIP * Telephone Encounter - Devaughn Vazquez RN - 12/27/2024 5:12 PM EDT Neuro SPINE CARE COORDINATION QUICK NOTE SURGERY DATE: 11/16/2024 SURGERY: C3-C5 laminoplasty 4 week SP laminoplasty Routed to BRITTNY for review. * Telephone Encounter - Marissa Barillas - 12/27/2024 2:29 PM EDT Patient phones requesting refills as follows: Told pt not sure if the Oxy would be refilled., Pt stated they are almost gone since they only givehim 7 days worth. Requested Prescriptions Pending Prescriptions Disp Refills methocarbamol (ROBAXIN) 750 mg tablet 120 tablet 0 Sig: Take 1 tablet by mouth four times daily. oxyCODONE IR (ROXICODONE) 5 mg immediate release tablet 28 tablet 0 Sig: Take 1 tablet by mouth every 6 hours as needed for pain for up to 7 days. Last visit: 12/23/2024 Pharmacy: [facility] #[id number] Pharmacy Current Dosage: Patient is currently taking 1 tab as needed; Has 16 left. Future OV: 01/24/[address] Wisdom Please review and advise. Marissa Barillas Patient phones requesting refills as follows: Requested Prescriptions Pending Prescriptions Disp Refills methocarbamol (ROBAXIN) 750 mg tablet 120 tablet 0 Sig: Take 1 tablet by mouth four times daily. Last visit: 12/23/2024 Pharmacy: [facility] # [id number] Pharmacy Current Dosage: Patient is currently taking 1 tab every 6 hrs; Has 2 left. Future OV: 01/24/25 with Artis Please review and advise. Marissa Barillas documented in this encounterUniversity Hospitals [facility]05-27-2025 Telephone encounter Note * Telephone Encounter - Dveaughn Vazquez RN - 12/27/2024 5:12 PM EDT Neuro SPINE CARE COORDINATION QUICK NOTE SURGERY DATE: 11/16/2024 SURGERY: C3-C5 laminoplasty 4 week SP laminoplasty Routed to BRITTNY for review. [facility] Work Phone: 1(812) 575-759605-27-2025 Telephone encounter Note* Telephone Encounter - Marissa Barillas - 12/27/2024 2:29 PM EDT Patient phones requesting refills as follows: Told pt not sure if the Oxy would be refilled., Pt stated they are almost gone since they only givehim 7 days worth. Requested Prescriptions Pending Prescriptions Disp Refills methocarbamol (ROBAXIN) 750 mg tablet 120 tablet 0 Sig: Take 1 tablet by mouth four times daily. oxyCODONE IR (ROXICODONE) 5 mg immediate release tablet 28 tablet 0 Sig: Take 1 tablet by mouth every 6 hours as needed for pain for up to 7 days. Last visit: 12/23/2024 Pharmacy: [facility] #[id number] Pharmacy Current Dosage: Patient is currently taking 1 tab as needed; Has 16 left. Future OV: 01/24/[address] Wisdom Please review and advise. Marissa Barillas Patient phones requesting refills as follows: Requested Prescriptions Pending Prescriptions Disp Refills methocarbamol (ROBAXIN) 750 mg tablet 120 tablet 0 Sig: Take 1 tablet by mouth four times daily. Last visit: 12/23/2024 Pharmacy: [facility] # [id number] Pharmacy Current Dosage: Patient is currently taking 1 tab every 6 hrs; Has 2 left. Future OV: 01/24/25 with Artis Please review and advise. Marissa Barillas [facility]05-14-2025 Telephone encounter Note* Telephone Encounter - Devaughn Vazquez RN - 12/14/2024 1:07 PM EDT Call to the pt PM was seen just prior to the surgery. PM placed [place] on hold. They will see him at the 6 week adilson and take over medications. Update to the team [facility]05-14-2025 Miscellaneous Notes* Telephone Encounter - Devaughn Vazquez RN - 12/14/2024 1:07 PM EDT Call to the pt PM was seen just prior to the surgery. PM placed [place] on hold. They will see him at the 6 week adilson and take over medications. Update to the team * Telephone Encounter - Ernie Rankin APRN.CNP - 12/14/2024 10:06 AM EDT Patient requesting pain rx refill. PDMP verified. Refill appropriate. Ernie Rankin APRN.ACTUARIAL INTERNSHIP * Telephone Encounter - Devaughn Vazquez RN - 12/14/2024 9:54 AM EDT Neuro SPINE CARE COORDINATION QUICK NOTE ASH 12-01-24 with Ernie Rankin ENVIRONMENTAL COMPLIANCE SPECIALIST SP C3-5 laminoplasty on 11-16-24 Pt reports some improvement with balance. Pt will need refill of Roxicodone. Pt reports taking one BID and has been out for the past day. Preferred [facility] * Telephone Encounter - Rukhsana Rosenthal - 12/14/2024 9:35 AM EDT Call received for Jus Wisdom MD regarding Bee Harris. Caller: self Patient Identified by Name and : Bee Harris 1965 Reason for Call: General - Pt needs to speak to Ernie Rankin about prescription. No other information provided. Is there any additional information the provider should know? No Last Office Visit: 11/30/2024 Next scheduled appointment: 01/10/2025 Best number to reach caller: [phone] Best time to reach caller: any Is it OK to leave a detailed voice message? Yes Rukhsana Rosenthal documented in this encounterUniversity Hospitals Ahuja [facility] Center05-14-2025 Telephone encounter Note * Telephone Encounter - Ernie Rankin APRN.CNP - 12/14/2024 10:06 AM EDT Patient requesting pain rx refill. PDMP verified. Refill appropriate. Ernie Rankin APRN.CNP [facility]05-14-2025 Telephone encounter Note* Telephone Encounter - Devaughn Vazquez RN - 12/14/2024 9:54 AM EDT Neuro SPINE CARE COORDINATION QUICK NOTE ASH 12-01-24 with Ernie Rankin ENVIRONMENTAL COMPLIANCE SPECIALIST SP C3-5 laminoplasty on 11-16-24 Pt reports some improvement with balance. Pt will need refill of Roxicodone. Pt reports taking one BID and has been out for the past day. [facility]05-14-2025 Telephone encounter Note* Telephone Encounter - Rukhsana Rosenthal - 12/14/2024 9:35 AM EDT Call received for Jus Wisdom MD regarding Bee Harris. Caller: self Patient Identified by Name and : Bee Harris 1965 Reason for Call: General - Pt needs to speak to Ernie Rankin about prescription. No other information provided. Is there any additional information the provider should know? No Last Office Visit: 11/30/2024 Next scheduled appointment: 01/10/2025 Best number to reach caller: [phone] Best time to reach caller: any Is it OK to leave a detailed voice message? Yes Rukhsana Rosenthal [facility]05-13-2025 History of Present illness Narrative* Cris Singh, DO - 12/13/2024 1:30 PM EDT IM PROGRESS NOTE Patient - Bee Harris Age - 59 y.o. - 1965 [facility] # - [id number] ASSESSMENT & PLAN 1. 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 (Primary) - patient one-month post cervical laminectomy and decompression surgery at [facility] - he does not feel like he has made much progress in the past month -has not received any active therapy - he will check with home health/ home PT, if they need extended orders I can give this in order tocontinue to support his progress 2. B12 deficiency [...] recheck visit following cervical decompression laminectomy and fusionbecause of cervical myelopathy. This occurred [facility] one[facility] - patient was sent home without any direct follow-up arranged -eventually was able to get home health in, but has had only 1 session with Physical therapy. - he is still having tingling and burning around the incision site on his cervical spine, and stillfeels that his arms and legs are not much improved - he is using a cane or walker at all times because he continues to have balance and instability issues. He has not fallen when he uses cane or walker. - he continues to have daily headache despite use of topiramate. -there are questions and confusion regarding his medication. Although he was already on Wellbutrin,was started on venlafaxine by Neurology, and at [...] 1 drop to both eyes nightly., Disp: ,Rfl: meloxicam (MOBIC) 15 mg tablet, TAKE 1 [...] Testing No results found. Cris Singh DO., [facility] Office: [phone] documented in this encounterWilson Health05-01-2025 Telephone encounter Note* Telephone Encounter - Devaughn Vazquez RN - 12/01/2024 2:34 PM EDT Neuro SPINE CARE COORDINATION QUICK NOTE Requested refill of Tylenol has been addressed. [facility] Work Phone: 1(152) 750-169305-01-2025 Miscellaneous Notes* Telephone Encounter - Devaughn Vazquez RN - 12/01/2024 2:34 PM EDT Neuro SPINE CARE COORDINATION QUICK NOTE Requested refill of Tylenol has been addressed. * Telephone Encounter - Umu Munoz - 11/30/2024 3:00 PM EDT Patient phones requesting refills as follows: Requested Prescriptions Pending Prescriptions Disp Refills acetaminophen (TYLENOL EXTRA STRENGTH) 500 mg tablet 180 tablet 0 Sig: Take 2 tablets by mouth every 8 hours. Last visit: 11/22/2024 Pharmacy: [facility] #[id number] Pharmacy Current Dosage: Patient is currently taking 2 tabs every 8 hrs; Has 4 left. Please review and advise; ph: [phone] Umu Agrawal documented in this encounterUniversity Hospitals Ahuja [facility] Center05-01-2025 History of Present illness Narrative* Ernie Rankin APRN.CHARLI - 12/01/2024 2:15 PM EDT Images from the original note were not included. SPINE SURGERY FOLLOW UP This is an in-person visit. SERVICE DATE: 11/30/2024 SURGERY DATE: 11/16/2024 SURGERY: C3-C5 laminoplasty INDICATIONS: balance issues and fine motor tasks issues. Cervical MRI revealed severe stenosis fromC3-C5 Bee Harris is seen for 2 week post operative follow up. He is upset that he was not initially skilled for home health care or rehab. He now has [facility] providing him assistance. Reports generalized neck pain and stiffness. Seeing some improvement in altered sensation. Using robaxin, tylenol, and lyrica for pain relief. Continues using the narcotics as needed. Incision is healing well without any complications- he was worried as his bandage was coming off. His come health career coach was able to replace and reinforce. Denies [...] Mood pleasant. Benign affect. Spine Exam Incision: Cristal removed and replaced with steri-strips. No significant erythema, edema, and no drainage. Upper Extremity Motor UE BICEPS TRICEPS DELTS Wrist Ext Wrist Flex Service Station Attendant HI R 3 5 3 5 5 [...] prescription, he will return to his pain auto care center manager for continuednarcotic use. He will continue to avoid excessive bending lifting or twisting and will especially be mindful of avoiding active chin to chest motion. Education provided regarding expected outcomes and typical healing process. Cristal were removed. There is no sign of complication or infection. Okayto get the incision wet in the shower [...] TIME: 11:45 AM PAGER: documented in this encounterUniversity Hospitals Ahuja [facility] Center05-01-2025 NoteHNO ID: [id number] Author: ERNIE RANKIN APRN.CNP Service: ? Author [...] or rehab. He now has [facility] providing him assistance. Reports generalized neck pain and stiffness. Seeing some improvement in altered sensation. Using robaxin, tylenol, and lyrica for pain relief. Continues using the narcotics as needed. Incision is healing well without any complications- he was worried as his bandage was coming off. His come health career coach was able to replace and reinforce. Denies [...] Mood pleasant. Benign affect. Spine Exam Incision: Cristal removed and replaced with steri-strips. No significant erythema, edema, and no drainage. 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 He will continue to avoid excessive bending lifting or twisting and will especially be mindful of avoiding active chin to chest motion. Education provided regarding expected outcomes and typical healing process. [place] were removed. There is no sign of [...] DATE: November 30, 2024 TIME: 11:45 AM PAGER:[facility]05-01-2025 Instructions* Patient Instructions* Ernie Rankin APRN.CNP - 12/01/2024 1:09 PM [...] for pain control at this time. You cancontinue these as long as they are needed. The goal is to taper off of the narcotic pain medication(Oxycodone/Roxicodone). Keep up the great work! Contact the office via mychart or phone call with questions or concerns. [phone] documented in this encounterUniversity Hospitals A[facility] Center04-30-2025 Telephone encounter Note * Telephone Encounter - Umu Munoz - 11/30/2024 3:00 PM EDT Patient phones requesting refills as follows: Requested Prescriptions Pending Prescriptions Disp Refills acetaminophen (TYLENOL EXTRA STRENGTH) 500 mg tablet 180 tablet 0 Sig: Take 2 tablets by mouth every 8 hours. Last visit: 11/22/2024 Pharmacy: [facility] #[id number] Pharmacy Current Dosage: Patient is currently taking 2 tabs every 8 hrs; Has 4 left. Please review and advise; ph: [phone] Umu Agrawal [facility]04-22-2025 Telephone encounter Note* Telephone Encounter - Shu Landers LSW - 11/22/2024 3:13 PM EDT CM sent HC referrals to [address] and [facility]- awaiting responses. Due to pt insurance type identifying HC agency willing to accept pt may take extended time [facility]04-22-2025 Miscellaneous Notes* Telephone Encounter - Shu Landers LSW - 11/22/2024 3:13 PM EDT CM sent HC referrals to [address] and [facility] HC- awaiting responses. Due to pt insurance type identifying HC agency willing to accept pt may take extended time documented in this encounterUniversity Hospitals Ahuja [facility] Center04-22-2025 Telephone encounter Note * Telephone Encounter - Devaughn Vazquez RN - 11/22/2024 2:06 PM EDT Neuro SPINE CARE COORDINATION QUICK NOTE Procedure(s): [...] as ambulation . Minimal support at home. [facility]04-22-2025 Miscellaneous Notes* Telephone Encounter - Devaughn Vazquez RN - 11/22/2024 2:06 PM EDT Neuro SPINE CARE COORDINATION QUICK NOTE Procedure(s): [...] as ambulation . Minimal support at home. * Telephone Encounter - Rukhsana Rosenthal - 11/22/2024 12:53 PM EDT Call received for Jus Wisdom MD regarding Bee Harris. Caller: self Patient Identified by Name and : Bee Harris 1965 Reason for Call: General - pt wanted to speak to Lisa Multani about his health . Surgery 11/16/24 Is there any additional information the provider should know? No Last Office Visit: 11/01/2024 Next scheduled appointment: 01/10/2025 Best number to reach caller: [phone] Best time to reach caller: any Is it OK to leave a detailed voice message? Yes Rukhsana Rosenthal documented in this encounterUniversity Hospitals Ahuja Medical Center04-22-2025 Telephone encounter Note * Telephone Encounter - Rukhsana Rosenthal - 11/22/2024 12:53 PM EDT Call received for Jus Wisdom MD regarding Bee Harris. Caller: self Patient Identified by Name and : Bee Harris 1965 Reason for Call: General - pt wanted to speak to Lisa Multani about his health . Surgery 11/16/24 Is there any additional information the provider should know? No Last Office Visit: 11/01/2024 Next scheduled appointment: 01/10/2025 Best number to reach caller: [phone] Best time to reach caller: any Is it OK to leave a detailed voice message? Yes Rukhsana Rosenthal [facility]04-19-2025 NoteHNO ID: [id number] Author: KARINA WOODSON MD Service: General Internal [...] 0.9 10/25/2024 Abs Neut 5.59 10/25/2024 Abs Van Zandt 1.02 10/25/2024 Abs Eosin 0.16 10/25/2024 Abs [...] -- 11/16/24 1145 activity - mobilize patient (nv,ct) VTE Prophylaxis: VTE prophylaxis appropriate SIGNATURE: Karina Woodson MD PATIENT NAME: Bee Harris DATE: November 19, 2024 TIME: 10:48 [facility]04-19-2025 NoteHNO ID: [id number] Author: LOPEZ SINGH MD Service: Hospital Medicine Author Type: Resident Type: Plan of Care Filed: 11/19/2024 10:25 Note Text: 59 year old male s/p C3-C5 laminoplasty 11/16 Seen by therapy and rollator recommended RX provided Patient lives independently at [facility] and will require rollator as need to take frequent breaks during ambulation to dining [place]ina[place], and have ability to sit. He is required to independently go to [facility], dining [place], get mail. Jody Amaya PA-C 10:13 AM Co-signed by orthopaedic team. Recommended by PT, is [facility]est for [facility] to have rollator. Lopez Singh MDMarietta Osteopathic ClinicTyxtrbik12-17-6729 NoteHNO ID: [id number] Author: ML DAVIS RN Service: Care Management Author Type: Registered [...] Row Name Admission (Current) from 11/16/[address] Durable Medical Equipment [employer] [facility] - Will have to apple picker from store; Call on Thursday to confirm when able to pickup. Equipment Needed Rollator SIGNATURE: Ml Davis RN PATIENT NAME: Bee Harris DATE: November 19, 2024 TIME: 10:01 [facility]04-19-2025 NoteHNO ID: [id number] Author: LOPEZ SINGH MD Service: Orthopaedic Surgery [...] 136/75 Pulse: 66 64 62 69 Resp: Temp: 36.5 ?C (97.7 ?F) 36.8 ?C [...] Flex Elbow Ext Wrist Ext Wrist Flex Service Station Attendant HI R 5 5 5 5 5 [...] days Lopez Singh MD PGY-3 Orthopaedic Surgery [phone] For Main [place] floor related issues [place], [place] [phone] If unable to reach the PA team between 6 am and 5 pm, please page me at [phone] At all other times, or if urgent, please page the orthopaedic on-call resident at: [phone] for [facility] patients [phone] for [facility] patients [phone] for [facility] patients [phone] for [facility] patients [phone] for [facility] patientsMarietta Osteopathic [id number] NoteHNO ID: [id number] Author: KRANTHI DELGADILLO MD Service: Orthopaedic Surgery [...] 134/68 Pulse: 66 64 Resp: 20 16 16 17 Temp: 36.5 ?C (97.7 ?F) 36.8 ?C [...] Flex Elbow Ext Wrist Ext Wrist Flex Service Station Attendant HI R 5 5 5 5 5 [...] pulse Labs: CBC: Recent Labs 11/18/24 0445 04/17/25 0425 WBC 8.73 9.80 HB 12.5* 13.3 HCT 38.4* 40.6 PLT 163 177 MCV 101.3* 100.7* RDWCV 15.0 14.9 COAG: No results for input(s): APTT , INR in the last 168 hours. BMP: Recent Labs 11/18/245 11/17/24424 GLUC 84 81 NA 140 142 K 4.1 4.4 CHLOR 114* 112* CO2 22 19* ANION 4* 11 BUN 17 20 CREAT 0.67* 0.69* CHEM: Recent Labs 11/18/245 11/17/24424 CA 8.8 8.7 URINALYSIS:No results for input(s): [...] days Kranthi Delgadillo MD PGY-2 Orthopaedic Surgery [facility]04-17-2025 NoteHNO ID: [id number] Author: KARINA WOODSON MD Service: General Internal [...] 0.9 10/25/2024 Abs Neut 5.59 10/25/2024 Abs Van Zandt 1.02 10/25/2024 Abs Eosin 0.16 10/25/2024 Abs [...] -- 11/16/24 1145 activity - mobilize patient (nv,ct) VTE Prophylaxis: VTE prophylaxis appropriate SIGNATURE: Karina Woodson MD PATIENT NAME: Bee Harris DATE: November 17, 2024 TIME: 1:00 [facility]04-17-2025 NoteHNO ID: [id number] Author: KRANTHI DELGADILLO MD Service: Orthopaedic Surgery Author Type: Resident Type: Progress Notes Filed: 11/17/2024 07:23 Note Text: ORTHOPAEDIC SPINE SURGERY PROGRESS NOTE PATIENT NAME: Bee Harris Attending: Jus Wisdom MD ASSESSMENT: 59 year old male s/p C3-C5 laminoplasty by uJs Wisdom MD on 11/16/2024. PLAN: - Activity: [...] Flex Elbow Ext Wrist Ext Wrist Flex Service Station Attendant HI R 5 5 5 5 5 [...] Steele Right Posterior Neck <1 day Kranthi Delgadillo MD PGY-2 Orthopaedic Surgery [facility]04-16-2025 NoteHNO ID: [id number] Author: ELLIE RASHID MD Service: Neurosurgery Author [...] at baseline Motor: UE Deltoid Triceps Biceps Service Station Attendant Hand Intrinsics Right 5/5 5/5 5/5 5/5 5/5 Left 5/5 5/5 5/5 5/5 5/5 LE Hip flexion Knee ext Dorsiflexion EHL Plantarflexion Right 5/5 5/5 5/5 5/5 5/5 Left 5/5 5/5 5/5 5/5 5/5 Dressing/Wound: intact Drain(s): HVAC x1 to suction Ellie Rashid MD PGY-6 Pager: [phone] Phptbkzr10-04-1620 NoteHNO ID: [id number] Author: JAMAR SWAIN AA Service: Anesthesiology Author Type: Java Consultant Type: Anesthesia Procedure Notes Filed: 11/16/2024 08:19 [...] November 16, 2024 TIME: 8:18 AM CSN: [id number] NoteHNO ID: [id number] Author: DEVAUGHN VAZQUEZ RN Service: ? Author Type: Registered Nurse Type: Progress Notes Filed: 11/14/2024 09:33 Note Text: Neuro SPINE CARE COORDINATION PRE-OP PHONE VISIT Met with patient for pre op education. Given both written and verbal instructions re : Skin prep, wound care, pain management and post op restrictions. Provided to patient: [facility] Surgery Guide, skin prep supplies, Spine Surgery [...] alone- pt requests Home care Devaughn Vazquez [facility]NK[facility]04-14-2025 History of Present illness Narrative* Devaughn Vazquez RN - 11/14/2024 9:25 AM EDT Neuro SPINE CARE COORDINATION PRE-OP PHONE VISIT Met with patient for pre op education. Given both written and verbal instructions re : Skin prep, wound care, pain management and post op restrictions. Provided to patient: [facility] Surgery Guide, skin prep supplies, Spine Surgery [...] care Devaughn Vazquez RN documented in this encounterUniversity Hospitals Ahuja Medical Center04-01-2025 Telephone encounter Note * Telephone Encounter - Devaughn Vazquez RN - 11/01/2024 3:57 PM EDT Neuro SPINE CARE COORDINATION QUICK NOTE Call to the pt and he is not interested in sooner OR date at this time. Pt currently scheduled for 11-16-[address] Wisdom [facility] Work Phone: 1(104) 502-912504-01-2025 Miscellaneous Notes* Telephone Encounter - Devaughn Vazquez RN - 11/01/2024 3:57 PM EDT Neuro SPINE CARE COORDINATION QUICK NOTE Call to the pt and he is not interested in sooner OR date at this time. Pt currently scheduled for 11-16-[address] Wisdom documented in this encounterUniversity Hospitals Ahuja Medical Center03-27-2025 NoteHNO ID: [id number] Author: MELO HERNANDEZ RN Service: ? Author Type: Registered Nurse Type: Progress Notes Filed: 2024 19:59 Note Text: Patient referred to Blood Management for pre-surgical optimization. Hgb 14.1 which exceeds Blood Management guidelines for intervention.[facility]03-27-20[facility] History of Present illness Narrative* Melo Hernandez RN - 2024 7:59 PM EDT Patient referred to Blood Management for pre-surgical optimization. Hgb 14.1 which exceeds Blood Management guidelines for intervention. documented in this encounterUniversity Hospitals Ahuja Medical Center03-25-2025 Instructions* Patient Instructions* Justin Boo APRN.ACTUARIAL INTERNSHIP - 10/25/2024 2:31 PM EDT Images from the original note were not included. [facility]est[facility] PATIENT PREOPERATIVE INSTRUCTIONS Jus Wisdom MD has scheduled you for your procedure at this surgery center: [facility]: [phone] --[address] [place] [address]. On your scheduled day of surgery, please [...] office. If you are currently using a tgji-gzf-mped injectable or oral medication for diabetes or weight loss such as Dulaglutide (Trulicity), Exenatide (Byetta, Bydureon), Liraglutide (Victoza, Saxenda), Semaglutide (Ozempic, Wegovy, Rybelsus), or Tirzepatide (Mounjaro), the medicine should be stopped at least 7 days before surgery. These medicines can cause food to remain in your stomach for a very longtime and increase the risks from surgery and [...] Procedures: - YOU MUST HAVE A RESPONSIBLE LEAD GENERATOR TAKE YOU HOME. A PAEDIATRICIAN OR PEOPLESOFT DEVELOPER CANNOT BE MADE A RESPONSIBLE LEAD GENERATOR. - We recommend that a responsible person stays with you overnight to take care of you. - You cannot stay in a hotel alone after outpatient surgery. You will not be permitted to have yoursurgery, if you do not have someone to [...] Advance Directive, please fax a copy to [phone] or email to for it to be added to your chart. If you do not have an Advance Directive, you can find the appropriate form and more information at [email or web address]. We recommend that youcomplete the Advance Directive form found on the website and bring it with you the day of your surgery. It can be witnessed and scanned into your chart that day. Justin Boo APRN.CHARLI documented in this encounterUniversity Hospitals Ahuja Medical Center03-25-2025 NoteHNO ID: [id number] Author: JUS WISDOM MD Service: ? Author [...] BICEPS TRICEPS DELTS Wrist Ext Wrist Flex Service Station Attendant HI R 5 5 5 5 5 [...] with the patient or the patient?s personal access services representative. Discussed goals of surgery Halt progression [...] patient from a sym (more content not included)...[facility]03-25-2025 History of Present illness Narrative* Jus Wisdom MD - 10/25/2024 1:44 PM EDT SPINE SURGERY ESTABLISHED This is an in-person [...] BICEPS TRICEPS DELTS Wrist Ext Wrist Flex Service Station Attendant HI R 5 5 5 5 5 [...] the patient or the patient s personal access services representative. Discussed goals of surgery Halt progression [...] with quality of life, and undergoing an irreversiblesurgical procedure makes sense to the patient from a symptom severity standpoint A and B were confirmed by me, C was confirmed by the patient. With this in mind it is reasonable toproceed with: Proposed surgery included posterior cervical laminoplasty C3-C5. Risks of surgery were discussed in detail with the patient. Risks of surgery discussed include but are not limited to, the risk of DVT, PE, and/or . Cardiovascular and pulmonary risk, as relatedto the patient's preoperative clearance and assessment by [...] potential complications of spinal headache, and/or persistent leakage,resulting in the need for further surgery, and/or [...] risk of screw misplacement resulting in radiculopathy orneurological injury was discussed. The risk of need for further surgery to alter trajectory of hardware was discussed. The risk of needing to extend the fusion cephalad and/or caudad and the reasoning behind this was discussed. We discussed my office will only treat acute pain, that is pain lastingfrom date of surgery to 12 weeks post [...] the reasoning for offering surgery, the potential complicationsregarding this particular surgery, and has elected to [...] TIME: 1:44 PM PAGER: documented in this encounterUniversity Hospitals Ahu[facility]03-25-2025 History and physical note * Justin Boo APRN.ACTUARIAL INTERNSHIP - 10/25/2024 1:40 PM EDT Images from the original note were not included. [place] [facility] HISTORY [...] have a large neck STOP-Bang Score: 2 [id number] Score: Age: <65 Sex: Female CHF history: No Hypertension history: Yes Stroke/TIA/thromboembolism history: No Vascular disease history: No Diabetes history: No [id number] Score: 2 I - PHYSICAL EVALUATION AIRWAY Patient intubated: No. Tracheostomy tube not present Mallampati: II. TM distance: >3 FB. Neck ROM: full ROM without neurological symptoms. Mouth opening: adequate. Short neck: no. Thick neck: no Walters present: no Upper lip bite test: unable to assess- not wearing dentures. Microretrognathia/Micronagthia/Recessed Chin: No DENTAL Dentures, upper: complete. Dentures, [...] This should be scheduled to be collected noearlier than 29 days before your scheduled procedure. If you receive blood products (red blood cells, platelets, plasma, cryoprecipitate) at any point before your procedure or are a female and become, please inform your provider. This test will be canceled, and a standard type and screen will need to be ordered to be collected within 3 days of your procedure. [facility] or Procedure:: Gnosticism Status of surgery/procedure:: Scheduled Date of surgery/procedure:: [...] (1,000 mcg total) by mouth in the morningYes HYDROcodone-Acetaminophen (NORCO) 7.5-325 mg per tablet Take [...] 428 QTC Calculation (Bazett) 437 Calculated P Poynette 69 Calculated R Poynette 36 Calculated T Poy[place]te 54 Impression NORMAL SINUS RHYTHM NORMAL ECG NO PREVIOUS ECGS AVAILABLE No results found for this or any previous visit (from the past 21557 hours). Instructions Given to Patient: Instructions located in the after visit summary. Patient given verbal and written preop instructions and voices comprehension and compliance. SIGNATURE: Justin Boo APRN.CNP PATIENT NAME: Bee Harris DATE: October 25, 2024 TIME: 2:10 PM PAGER/CONTACT #: [facility]03-[facility] History and physical note* Justin Boo APRN.CNP - 10/25/2024 1:40 PM EDT Images from the original note [...] have a large neck STOP-Bang Score: 2 [id number] Score: Age: <65 Sex: Female CHF history: No Hypertension history: Yes Stroke/TIA/thromboembolism history: No Vascular disease history: No Diabetes history: No QAC3RY3-HJTv Score: 2 I - PHYSICAL EVALUATION AIRWAY Patient intubated: No. Tracheostomy tube not present Mallampati: II. TM distance: >3 FB. Neck ROM: full ROM without neurological symptoms. Mouth opening: adequate. Short neck: no. Thick neck: no Walters present: no Upper lip bite test: unable to assess- not wearing dentures. Microretrognathia/Micronagthia/Recessed Chin: No DENTAL Dentures, upper: complete. Dentures, [...] This should be scheduled to be collected noearlier than 29 days before your scheduled procedure. If you receive blood products (red blood cells, platelets, plasma, cryoprecipitate) at any point before your procedure or are a female and become, please inform your provider. This test will be canceled, and a standard type and screen will need to be ordered to be collected within 3 days of your procedure. [facility] or Procedure:: Gnosticism Status of surgery/procedure:: Scheduled Date of surgery/procedure:: [...] (1,000 mcg total) by mouth in the morningYes HYDROcodone-Acetaminophen (NORCO) 7.5-325 mg per tablet Take [...] 428 QTC Calculation (Bazett) 437 Calculated P Poynette 69 Calculated R Poynette 36 Calculated T Poy[place]te 54 Impression NORMAL SINUS RHYTHM NORMAL ECG NO PREVIOUS ECGS AVAILABLE No results found for this or any previous visit (from the past 66079 hours). Instructions Given to Patient: Instructions located in the after visit summary. Patient given verbal and written preop instructions and voices comprehension and compliance. SIGNATURE: Justin Boo APRN.CNP PATIENT NAME: Bee Harris DATE: October 25, 2024 TIME: 2:10 PM PAGER/CONTACT #: documented in this encounterUniversity Hospitals Ahuja [facility] Center03-18-2025 Telephone encounter Note * Telephone Encounter - Devaughn Vazquez RN - 10/18/2024 2:03 PM EDT Neuro SPINE CARE COORDINATION QUICK NOTE Call to the pt and reviewed questions [facility] Work Phone: 1(772) 540-690903-18-2025 Miscellaneous Notes* Telephone Encounter - Devaughn Vazquez RN - 10/18/2024 2:03 PM EDT Neuro SPINE CARE COORDINATION QUICK NOTE Call to the pt and reviewed questions * Telephone Encounter - Marissa Barillas - 10/18/2024 1:33 PM EDT Call received for Jus Wisdom MD regarding Bee Harris. Caller: self Patient Identified by Name and : Bee Harris 1965 Reason for Call: General - Pt called and stated Dr. Wisdom told him he would have to cut the back of his hair. Pt is concerned at how much he is going to cut. Pt asked would it be up to his ears.Pleasecall pt Is there any additional information the provider should know? No Last Office Visit: 10/12/2024 Next scheduled appointment: 10/25/2024 Best number to reach caller: [phone] Best time to reach caller: any Is it OK to leave a detailed voice message? Yes Marissa Barillas documented in this encounterUniversity Hospitals Ahuja [facility] Center03-18-2025 Telephone encounter Note * Telephone Encounter - Marissa Barillas - 10/18/2024 1:33 PM EDT Call received for Jus Wisdom MD regarding Bee Harris. Caller: self Patient Identified by Name and : Bee Oneal Kimberly 1965 Reason for Call: General - Pt called and stated Dr. Wisdom told him he would have to cut the back of his hair. Pt is concerned at how much he is going to cut. Pt asked would it be up to his ears.Pleasecall pt Is there any additional information the provider should know? No Last Office Visit: 10/12/2024 Next scheduled appointment: 10/25/2024 Best number to reach caller: [phone] Best time to reach caller: any Is it OK to leave a detailed voice message? Yes Marissa Barillas [facility]03-13-2025 Telephone encounter Note* Telephone Encounter - Devaughn Vazquez RN - 10/13/2024 7:45 AM EDT Neuro SPINE CARE COORDINATION QUICK NOTE Pt pending C3-5 laminoplasty on 11-16-24 PM would like to proceed with SI joint injection Will review with team- as per ENVIRONMENTAL COMPLIANCE SPECIALIST no contraindications to proceeding with SI joint injection. Call to PM and update provided to Cassi ORDONEZ) [facility] Work Phone: 1(116) 507-654203-13-2025 Miscellaneous Notes* Telephone Encounter - Devaughn Vazquez RN - 10/13/2024 7:45 AM EDT Neuro SPINE CARE COORDINATION QUICK NOTE Pt pending C3-5 laminoplasty on 11-16-24 PM would like to proceed with SI joint injection Will review with team- as per ENVIRONMENTAL COMPLIANCE SPECIALIST no contraindications to proceeding with SI joint injection. Call to PM and update provided to Cassi (RN) * Telephone Encounter - Erendira Tay - 10/12/2024 1:01 PM EDT Call received for Jus Wisdom MD regarding Bee Harris. Caller: Cassi with [facility] Patient Identified by Name and [...] 10/25/2024 Best number to reach caller: Cassi [phone] Best time to reach caller: 8 am till 4 pm Is it OK to leave a detailed voice message? Yes Erendira Jean documented in this encounterUniversity Hospitals Ahuja [facility] Center03-12-2025 Telephone encounter Note * Telephone Encounter - Erendira Tay - 10/12/2024 1:01 PM EDT Call received for Jus Wisdom MD regarding Bee Harris. Caller: Cassi with [facility] Patient Identified by Name and [...] 10/25/2024 Best number to reach caller: Cassi [phone] Best time to reach caller: 8 am till 4 pm Is it OK to leave a detailed voice message? Yes Erendira Mcknight Cipher Expert [facility]03-11-2025 Telephone encounter Note* Telephone Encounter - Devaughn Vazquez RN - 10/11/2024 4:04 PM EDT Neuro SPINE CARE COORDINATION SURGERY SCHEDULING Patient accepts surgery date of 11/16/24- with Dr. Wisdom. Planned procedure is C3- 5 laminoplasty. PACC will be 10/25/24. [facility] : [...] your surgery to help with physical activities sucha toileting or dressing? Occasionally How many steps [...] disposition : Low [0] Devaughn Vazquez RN [facility] Work Phone: 1(740) 557-346703-11-2025 Miscellaneous Notes* Telephone Encounter - Devaughn Vazquez RN - 10/11/2024 4:04 PM EDT Neuro SPINE CARE COORDINATION SURGERY SCHEDULING Patient accepts surgery date of 11/16/24- with Dr. Wisdom. Planned procedure is C3- 5 laminoplasty. PACC will be 10/25/24. [facility] : [...] your surgery to help with physical activities sucha toileting or dressing? Occasionally How many steps [...] [0] Devaughn Vazquez RN documented in this encounterUniversity Hospitals Ahuja [facility] Center03-11-2025 NoteHNO ID: [id number] Author: JUS WISDOM MD Service: ? Author [...] BICEPS TRICEPS DELTS Wrist Ext 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 Discussed goals of surgery Halt progression [...] and B were c (more content not included)...[facility] 10-11-2024 History of Present illness Narrative* Jus Wisdom MD - 10/11/2024 11:04 AM EDT Images from the original note were [...] current 1 pack/day smoker, he is decreasing this.He denies any significant neck pain. He does [...] BICEPS TRICEPS DELTS Wrist Ext Wrist Flex Service Station Attendant HI R 5 5 5 5 5 [...] the patient or the patient s personal access services representative. Discussed goals of surgery Halt progression [...] with quality of life, and undergoing an irreversiblesurgical procedure makes sense to the patient from a symptom severity standpoint A and B were confirmed by me, C was confirmed by the patient. With this in mind it is reasonable toproceed with: Proposed surgery included posterior cervical laminoplasty C3-C5. Risks of surgery were discussed in detail with the patient. Risks of surgery discussed include but are not limited to, the risk of DVT, PE, and/or . Cardiovascular and pulmonary risk, as relatedto the patient's preoperative clearance and assessment by [...] potential complications of spinal headache, and/or persistent leakage,resulting in the need for further surgery, and/or [...] risk of screw misplacement resulting in radiculopathy orneurological injury was discussed. The risk of need for further surgery to alter trajectory of hardware was discussed. The risk of needing to extend the fusion cephalad and/or caudad and the reasoning behind this was discussed. We discussed my office will only treat acute pain, that is pain lastingfrom date of surgery to 12 weeks post [...] the reasoning for offering surgery, the potential complicationsregarding this particular surgery, and has elected to proceed. 2. Follow up: Following above Imaging Ordered: None The majority of the visit was spent counseling and/or coordinating care for the patient. The patient was counseled regarding cervical myelopathy. Total face to face time was 30 minutes. documented in this encounterUniversity Hospitals Ahuja [facility] Center03-11-2025 History of Present illness Narrative* Lori Plaza RT(R) - 10/11/2024 9:45 AM EDT Radiology Service Progress Note PATIENT NAME: Bee Harris DATE OF SERVICE: October 11, 2024 TIME: 9:21 AM PATIENT IDENTITY VERIFICATION COMPLETED USING TWO (2) IDENTIFIERS: Name and Date of confirmedby patient verbally. FALL SCREENING: Has the patient had 2 falls in the last year or 1 fall with injury or currently using an Ambulatory Assistive Device (Walker, Cane, Wheelchair, Crutches, etc.)? No PATIENT PRESENTS WITH AN IMPLANTABLE OR ATTACHED MAGICIAN HELPER: No RADIOLOGY DEPARTMENT: CT; Exam(s) Completed: Spine PERIPHERAL IV DATA: Not applicable SIGNED BY: SENTHIL López) October 11, 2024 9:21 AM documented in this encounterUniversity Hospitals Ahuja Medical Center03-11-2025 NoteHNO ID: [id number] Author: LORI PLAZA RT(R) Service: ? Author [...] PATIENT PRESENTS WITH AN IMPLANTABLE OR ATTACHED MAGICIAN HELPER: No RADIOLOGY DEPARTMENT: CT; Exam(s) Completed: Spine PERIPHERAL IV DATA: Not applicable SIGNED BY: RT Maribel(Cirilo) October 11, 2024 9:21 [facility]02-24-2025 History of Present illness Narrative* Savita Alcantara NP - 09/26/2024 4:00 PM EST Images from the original note were not [...] Ernie Rankin APRN, CNP (spine surgery) at [facility] on 08/25/[facility]24. Per documentation, she recommended obtaining a CT of the cervical spine for surgical consideration. This is scheduled for 10/11/2024 after which the patient has an appointment with Dr. Jus Wisdom ([facility]). Ernie Rankin APRN, [...] are. He continues to take Lyrica and Columbus butstates, none of that helps. The patient's neck [...] hydrocodone-acetaminophen 7.5-325 MG tablet; Commonly known as: Columbus latanoprost 0.005 % ophthalmic solution; Commonly known [...] wrist extensors , wrist flexor , and fashion intern strength 4+/5. May be a component of giveway weakness. Reduced range of motion in the right deltoid - patient states this is chronic. LUE strength deltoid , biceps , triceps , wrist extensors , wrist flexor , and fashion intern strength 5/5. RLE strength iliopsoas, quadriceps, tibialis [...] reflex 0. LLE knee reflex 2+. Coordination: Vzmvui-ba-jtwj testing normal. Rapid alternating movements are normal. Gait: Appears mildly antalgic. Review and summary of old records: MRI of the lumbar spine without contrast at [facility] on 07/05/2024: No abnormal signalin the distal spinal cord and conus. There [...] No acute compression fracture. Minimal grade 1 retrolisthesisfrom L3 through S1. Multilevel degenerative disc disease affecting all levels of the lumbar spine, most severe at L5-S1. MRI of the cervical spine with and without contrast at [facility] on 06/23/2024: Marked central canal narrowing posterior to C3-C4 extending to C4- C5. Flattening and compression posterior to C3 -C4 and C4-C5. No abnormal signal intensity. Multilevel marked and moderate to marked foramen narrowing. Multilevel degenerative disc disease and degenerative facet arthropathy accounting for the above findings. See full report. Orthostatic vital signs at [facility] on 05/12/2024: Negative. EMG of the right upper extremity at [facility] on 05/10/2024: A remote C8 motor [...] of the lumbar spine without contrast at [facility] on 02/18/2024: At L1-L2, there is a broad-based disc bulge with a left subarticular disc protrusion. There is mild spinal canal stenosis. There is moderate left and moderate right neural foraminal narrowing. At L3-L4, there is a broad-based disc bulge with facet hypertrophy and endplate osteophyte formation. There is juvl-te-vuxxeele bilateral neural foraminal narrowing with moderate spinal canal narrowing. At L4-L5, there is a circumferential disc bulge with facet hypertrophy and ligamentum flavum thickening. There is moderate spinal canal stenosis with moderate to severe bilateral neural foraminal narrowing. There is a small left- sided facet effusion. Lesser degrees of degenerative changes are noted. There is a hemangioma in the T12 vertebral body. EMG of the bilateral lower extremities on 02/16/2024: The remote L5 radiculopathy on the right which is moderate in degree electrically. A generalized process, such as polyneuropathy, which is axonalloss and type and mild in degree electrically. [...] extremity symptoms, though his previous traumatic brain injurymay be contributory to a lesser degree. BLE [...] (neurosurgery) on 07/11/24 and subsequently [facility] for further evaluation and surgical opinion. He was evaluated by Ernie Rankin APRN, ACTUARIAL INTERNSHIP on 08/25/24. PLAN: - Follow up with pain management for evaluation and measures to help improve pain and functional ability - Follow up with [facility] spine surgery per their recommendations. Per documentation on 08/25/24, they did not believe the patient was a surgical candidate unless he quits smoking - He is taking meloxicam, Lyrica, and [place] (prescribed by outside provider) Cervical spinal stenosis Weakness of right upper extremity The patient has degenerative disc disease (DDD) of the cervical spine with multilevel central canaland neural foraminal stenosis as identified on MRI [...] primary priority. He has established care with [facility] for surgical opinion and wasevaluated by Ernie Rankin APRN, ACTUARIAL INTERNSHIP on 08/25/24. PLAN: - Follow up closely with [facility] spine surgery and pain management. Per chart review, it seems the patient has a CT of the cervical spine scheduled on 10/11/24 with surgical consultation thereafter - He is taking meloxicam, Lyrica, and [place] (prescribed by outside provider) Carpal tunnel syndrome [...] waking, I recommended sleep study for evaluation ofsleep-related breathing disorders such as RYLAND which could [...] in detail. All questions answered. The patient verbalizesunderstanding and is agreeable to the plan. Discussion in layman's terms. Follow up in the office within 3 to 4 months; sooner if needed for new or worsening symptoms. Savita Alcantara NP [facility] documented in this encounterLafayette Regional Health [id number] Instructions* Patient Instructions* Ernie Rankin APRN.CHARLI - 08/25/2024 2:08 PM EST I recommend attempting an injection with your pain management provider for your low back and left buttock pain. Injection options would include a left SI Joint injection or a left L4-L5 TFESI. Please obtain the following images and have them sent to us: MRI Cervical Spine 06/24/2024 @ [facility] MRI Lumbar Spine 02/18/2024 @ [facility] HOW TO SEND YOUR IMAGES AND REPORTS Contact the radiology facility where the images were completed and ask if they have PACs (Picture Archiving and Communication System). If they have PACs, request that your images be sent over the internet directly to [facility] via PACs. Note: If they have PACS they will know how to do this. Their image transmission system may have another name. Once transmitted, it will take our radiology dept approximately 2-3 days to process it into your chart. OR Mailing instructions: [facility] C/O Ernie Rankin CNP [address] [facility]/[place] [address] Upload Instructions: The [facility] has a secure web link that allows you to transfer yourimages to your healthcare provider in advance of your appointment. The attached patient image upload instructions will walk you through the process to transfer your images. Once your images are successfully uploaded into our secure system, you will receive an email confirmation. If you experience any issues during the process or have questions, please email us at [email or web address]. To upload images to the secure [facility] website please click on the following link: [email or web address] [facility] as the center. OR Use link below [email or web address] Please have imaging reports faxed to us at [phone] PLEASE NOTE: [employer] (Do It In Person) computers are not supported by this application at this time. The application will work with the latest versions of [employer], [employer], Firefox, and [employer]. Thank you Ernie Rankin APRN.CHARLI documented in this encounterUniversity Hospitals Ahuja Medical Center01-23-2025 NoteHNO ID: [id number] Author: ERNIE RANKIN APRN.CNP Service: ? 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 Benign affect. Spine (more content not included)...[facility]01-23-20[facility] History of Present illness Narrative* Ernie Rankin APRN.ACTUARIAL INTERNSHIP - 08/25/2024 1:12 PM EST SPINE SURGERY NEW PATIENT This is an [...] current 1+ PPD cigarette smoker, former alcohol use,with a history of HTN, HLD, perforated diverticulitis, [...] him to be seen elsewhere, as his casewas too complicated. He reports: - Imbalance and difficulty walking - Dizziness and occasional syncope- reports he follows with neuro locally - bilateral finger tip numbness/burning - Right hand numbness and issues with grasp - Right bicep weakness and limited ROM - Generalized neck pain - Generalized low back pain (main pain dedicated driver) - Right calf to foot numbness/tingling [...] Membrane stabilizer: Lyrica OTC NSAIDs Topiramate Narcotic: [place] - custodial- local pain auto care center manager PREVIOUS SPINAL SURGERY: None ACTIVE PROBLEM [...] BP Cuff Size: Regular Adult) Pulse 66 [id number]% GENERAL APPEARANCE: Well nourished, well developed, and no apparent distress. NEURO PSYCH: Patient oriented to person, place, and time. Mood pleasant. Benign affect. Spine Exam Neck No obvious deformity, mildly limited ROM Back No stepoffs/deformities. No tenderness or instability to palpation along spinous processes or paravertebral musculature Upper Extremity Motor UE BICEPS TRICEPS DELTS Wrist Ext Wrist Flex Service Station Attendant HI R 3 5 3 5 5 [...] that requires further workup. Imaging reports discuss significantcervical stenosis. Patient reports imbalance, hand numbness, and exam with hyperreflexia and inability to perform tandem gait. Discussed other factors that could contribute to his imbalance, such as vertigo and TBI symptoms; finger tip numbness, such as smoking or general neuropathy. He has right shoulder pain, lack of ROM, and deltoid and biceps weakness- likely shoulder pathology but no imagingto confirm. Discussed attempting injection with his local PM regarding his lumbar issues. He is nota surgical candidate for an elective lumbar surgery given his use of nicotine. States he is not able to quit. We will attempt to obtain his OSH imaging to review, since he did not bring a disc today.We will touch base after the images have been received. 1. Imaging: Obtain OSH imaging (MRI Cervical and Lumbar), CT Cervical for surgical planning 2. Physical Therapy: Continue current 3. Medication: Continue current 4. Referrals: Local pain auto care center manager to attempt left L4-5 TFESI or [...] TIME: 1:12 PM PAGER: documented in this encounterUniversity Hospitals [facility]01-23-2025 History of Present illness Narrative* Leela Ribera RT(R) - 08/25/2024 12:50 PM EST Radiology Service Progress Note PATIENT NAME: Bee Harris DATE OF SERVICE: August 25, 2024 TIME: 1:21 PM PATIENT IDENTITY VERIFICATION COMPLETED USING TWO (2) IDENTIFIERS: Name and Date of confirmedby patient verbally. FALL SCREENING: Has the patient had 2 falls in the last year or 1 fall with injury or currently using an Ambulatory Assistive Device (Walker, Cane, Wheelchair, Crutches, etc.)? No PATIENT GENDER DATA: Assigned male at PATIENT RELEVANT IMPLANT DATA REVIEWED: Not Applicable PATIENT PRESENTS WITH AN IMPLANTABLE OR ATTACHED MAGICIAN HELPER: No RADIOLOGY DEPARTMENT: General X-ray: Exam(s) Completed: Spine X-Ray(s): Cervical AP / LAT / FLEX-EXT and Lumbar AP / LAT / L5-S1 / FLEX-EXT PERIPHERAL IV DATA: Not applicable SIGNED BY: RT Darleen(R) August 25, 2024 1:21 PM documented in this encounterUniversity Hospitals Ahuja [facility] Center01-23-2025 NoteHNO ID: [id number] Author: LEELA RIBERA RT(Cirilo) Service: Radiology Author [...] PATIENT PRESENTS WITH AN IMPLANTABLE OR ATTACHED MAGICIAN HELPER: No RADIOLOGY DEPARTMENT: General X-ray: Exam(s) Completed: Spine X-Ray(s): Cervical AP / LAT / FLEX-EXT and Lumbar AP / LAT / L5-S1 / FLEX-EXT PERIPHERAL IV DATA: Not applicable SIGNED BY: RT Darleen(R) August 25, 2024 1:21 [facility]01-20-2025 History of Present illness Narrative* Cris Singh, DO - 08/22/2024 2:30 PM EST IM PROGRESS NOTE Patient - Bee Harris Age - 58 y.o. - 1965 [facility] # - [id number] ASSESSMENT & PLAN 1. Traumatic left-sided intracerebral [...] -needs to keep follow-up with Neurosurgery at [facility] to evaluate stabilization options. -in the [...] stenosis. He ultimately has been [facility] of a cervical fusion. This is scheduled in the next1-2 weeks. -he continues to have problems with his balance. A VNG did show central vertigo, and he was referred to ENT. ENT referred him to vestibular Clinic in [place], but the patient has not been able to schedule were attend an evaluation. 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 Currently on latanoprost, and reportedly the pressures are improving. Patient still has problems with photophobia, and seeing small print. However is able to see the room around him without blurring at this time. -he continues to smoke. He has tried quitting in the past, but never for long. At the current time,he feels depressed over his multiple problems. His short term disability has run out, and he has not yet received his long-term disability. A review of systems was negative except for the following: General: fatigue and sleep disturbance Psychiatric: anxiety, depression, and sleep disturbances Ophthalmic: decreased vision ENT: vertigo Musculoskeletal: gait disturbance, joint pain, joint stiffness, and pain in arm - bilateral, lower,upper, back - bilateral, lower, upper, and buttock [...] tablet by mouth 2 (two) times a dayas needed. Max Daily Amount: 2 tablets, Disp: , Rfl: latanoprost (XALATAN) 0.005 % ophthalmic solution, Administer 1 drop to both eyes nightly., Disp: ,Rfl: meloxicam (MOBIC) 15 mg tablet, TAKE 1 TABLET (15 MG TOTAL) BY MOUTH IN THE MORNING, Disp: 90 tablet, Rfl: 0 pregabalin (LYRICA) 50 mg capsule, Has not started it., Disp: , Rfl: topiramate (TOPAMAX) 50 mg tablet, Take 1 tablet (50 mg total) by mouth in the morning and 1 tablet(50 mg total) before bedtime., Disp: 180 tablet, [...] Testing No results found. Cris Singh DO., [facility]: [phone] documented in this encounterWilson Health01-07-2025 History of Present illness Narrative* Savita Alcantara NP - 08/09/2024 2:20 PM EST Images from the original note were not included. Chief Complaint Patient presents with Extremity Weakness Numbness Headache Subjective Bee Harris is a 58 y.o. male. History of Present Illness The patient presents today for follow up. He had an MRI of the cervical spine completed for review.He also had an updated MRI of the lumbar spine completed on 07/05/2024. He was evaluated by Kinza Caba DO (neurosurgery) on 07/11/2024 and [facility]. The patient states Dr. Caba felt more comfortable with him getting a surgery consult at a [facility]. He has an appointment with Ernie Rankin APRN, CNP (neurosurgery) [facility]. The patient continues to follow with pain management. His next appointment with Lalitha Vela MD is on 08/29/2024. He states pain management has prescribed Lyrica and Columbus for his symptoms, however, neither of these are very helpful. His insurance would not approve/cover injections. The patient continues to have constant pain in the posterior neck and low back. Also, with intermittent numbn ess and paresthesias in the distal right lower [...] balance difficulty which is not worsened since theprior appointment. He denies saddle anesthesia or bowel/bladder incontinence. The patient also mentions constant, daily headaches. These are chronic. They are located in the bilateral frontal region. He describes them as severe. He is unable to describe the characteristic. They are not accompanied by nausea, vomiting, or increased sensitivity to light. They are aggravated byloud noises. He has tried aspirin and ibuprofen [...] hydrocodone-acetaminophen 7.5-325 MG tablet; Commonly known as: Columbus IRON PO latanoprost 0.005 % ophthalmic solution; [...] CN II: Visual acuity is normal. Visual satrkey full to confrontation. CN III, IV, : [...] wrist extensors , wrist flexor , and fashion intern strength 4+/5. May be a component of giveway weakness. Reduced range of motion in the right deltoid - patient states this is chronic. LUE strength deltoid , biceps , triceps , wrist extensors , wrist flexor , and fashion intern strength 5/5. RLE strength iliopsoas, quadriceps, tibialis [...] reflex 0. LLE knee reflex 2+. Coordination: Nxbpkl-ja-syqv testing normal. Rapid alternating movements are normal. Gait: Appears antalgic. Review and summary of old records: MRI of the lumbar spine without contrast at [facility] on 07/05/2024: No abnormal signalin the distal spinal cord and conus. There [...] No acute compression fracture. Minimal grade 1 retrolisthesisfrom L3 through S1. Multilevel degenerative disc disease affecting all levels of the lumbar spine, most severe at L5-S1. MRI of the cervical spine with and without contrast at [facility] on 06/23/2024: Marked central canal narrowing posterior to C3-C4 extending to C4- C5. Flattening and compression posterior to C3 -C4 and C4-C5. No abnormal signal intensity. Multilevel marked and moderate to marked foramen narrowing. Multilevel degenerative disc disease and degenerative facet arthropathy accounting for the above findings. See full report. Orthostatic vital signs at [facility] on 05/12/2024: Negative. EMG of the right upper extremity at [facility] on 05/10/2024: A remote C8 motor [...] of the lumbar spine without contrast at [facility] on 02/18/2024: At L1-L2, there is a broad-based disc bulge with a left subarticular disc protrusion. There is mild spinal canal stenosis. There is moderate left and moderate right neural foraminal narrowing. At L3-L4, there is a broad-based disc bulge with facet hypertrophy and endplate osteophyte formation. There is yspb-qi-omguyuxb bilateral neural foraminal narrowing with moderate spinal canal narrowing. At L4-L5, there is a circumferential disc bulge with facet hypertrophy and ligamentum flavum thickening. There is moderate spinal canal stenosis with moderate to severe bilateral neural foraminal narrowing. There is a small left- sided facet effusion. Lesser degrees of degenerative changes are noted. There is a hemangioma in the T12 vertebral body. EMG of the bilateral lower extremities on 02/16/2024: The remote L5 radiculopathy on the right which is moderate in degree electrically. A generalized process, such as polyneuropathy, which is axonalloss and type and mild in degree electrically. [...] extremity symptoms, though his previous traumatic brain injurymay be contributory to a lesser degree. BLE [...] (neurosurgery) on 07/11/24 and subsequently [facility] for further evaluation and surgical opinion. PLAN: - I advised the patient to follow up closely with [facility] neurosurgery - Follow up with pain management for evaluation and measures to help improve his pain and functional ability - He is taking meloxicam, Lyrica, and Columbus (prescribed by outside provider) Cervical spinal stenosis Weakness of right upper extremity The patient also has degenerative disc disease (DDD) of the cervical spine with multilevel central canal and neural foraminal stenosis. This was identified on MRI of the cervical spine from 06/23/24.MRI also identified concern for flattening and compression of the cord at C3-C4 and C4-C5. RUE EMG on 05/10/2024 identified a remote C8 motor radiculopathy. The patient reports neck pain, right upperextremity weakness, imbalance, and weakness/reduced sensation in the bilateral hands. I am concerned that many of his symptoms could be stemming from cord compression and neural foraminal narrowing in the cervical spine. I believe urgent neurosurgery evaluation is indicated, and he is scheduled with [facility] neurosurgery on 08/25/24. PLAN: - I advised the patient to follow up closely with [facility] neurosurgery and pain management - He is taking meloxicam, Lyrica, and Columbus (prescribed by outside provider) Carpal tunnel syndrome [...] and I have highest suspicion for tension-type headachesgiven the clinical description. Topiramate has been ineffective [...] Meniere's disease Greater than 40 minutes on lzfj-hu-cqte interaction discussing diagnsosis, prognosis, and treatmentoptions with greater than 50% on counseling and [...] NP [facility] documented in this [facility]01-07-2025 Instructions* Patient Instructions* Savita Alcantara NP - 08/09/2024 2:20 PM EST - Start venlafaxine ER 37.5 mg by mouth once a day - Follow up with neurosurgery documented in this encounterLafayette Regional Health [id number] NoteHNO ID: [id number] Author: LOIS MEDEIROS PA-C Service: ? Author Type: Physician Cash Processor Type: Progress Notes Filed: 07/20/2024 22:06 Note [...] PT Lyrica Darcy back and body Topiramate Columbus Studies (Reports unless indicated) MRI lumbar spine [...] sure patient imaging is available for review [facility]Bl[facility] History of Present illness Narrative* Lois Medeiros PA-C - 07/20/2024 9:48 PM EST Per Triage: Bee Harris is a 58 [...] PT Lyrica Darcy back and body Topiramate Columbus Studies (Reports unless indicated) MRI lumbar spine [...] is available for review Lois Medeiros PA-C * Martina Shi - 07/15/2024 8:57 AM EST Patient name: Bee Harris Are you being referred by a Center for Spine Health Provider or Pain Management Provider at [facility]? No If answer is YES please [...] MRI Lumbar (07/05/24), MRI Cervical (06/23/24) The [address] [address] MRI/CT/myelogram viewable in Epic: No If not, please provide [phone] to fax in imaging reports for review. Also, please inform patient to hand carry imaging disc to appointment. XR (spine) within 12 months: No If YES, please ask for the name/address of the facility where the XR was completed: Dr. Stephenson's patients: Have you had previous EMG/Nerve Conduction Study, Ultrasound, or MRI for thesesame symptoms? If YES, please ask for the [...] and/or physical therapy was completed PT: [facility] [place] [phone] Currently working with insurance for injection approval Have you tried any other kinds of non-surgical treatments in the last 12 months? (For example: NSAIDS, muscle relaxants, analgesics, oral steroids, Chiropractor, Acupuncture): Lyrica, Darcy Back & Body, Meloxicam, Topiramate 4. Are you currently taking daily prescribed narcotic medications for your current symptoms (For example Oxycodone, Hydrocodone, Tramadol, Morphine, Other)? Yes, Columbus 5. Have you had previous spinal surgery for this same symptoms? No If YES please ask for the name of facility/address of where the surgery was completed: Additional Comments [phone] documented in this encounterUniversity Hospitals Ahuja Medical Center12-13-2024 NoteHNO ID: [id number] Author: ?, ?, ? Service: ? Author Type: ? Type: Progress Notes Filed: 07/20/2024 22:06 Note Text: Patient name: Bee Harris Are you being referred by a Center for Spine Health Provider or Pain Management Provider at [facility]? No If answer is YES please [...] MRI Lumbar (07/05/24), MRI Cervical (06/23/24) [place] [address] MRI/CT/myelogram viewable in Epic: No If not, please provide [phone] to fax in imaging reports for review. [...] and/or physical therapy was completed PT: [place] [address] Currently working with insurance for injection approval Have you tried any other kinds of non-surgical treatments in the last 12 months? (For example: NSAIDS, muscle relaxants, analgesics, oral steroids, Chiropractor, Acupuncture): Lyrica, Darcy Back AND Body, Meloxicam, Topiramate 4. Are you currently taking daily prescribed narcotic medications for your current symptoms (For example Oxycodone, Hydrocodone, Tramadol, Morphine, Other)? Yes, Columbus 5. Have you had previous spinal surgery for this same symptoms? No If YES? please ask for the name of facility/address of where the surgery was completed: Additional Comments [phone]11-14-2024 Miscellaneous Notes* Telephone Encounter - Tamica Recinos CMA - 06/16/2024 3:43 PM EST Patient needs a letter stating that you have been treating him and he is unable to work for child support. * Telephone Encounter - Cris Singh DO - 06/16/2024 3:43 PM EST Message noted. A letter is in his chart documented in this encounterWilson Health11-14-2024 Telephone encounter Note* Telephone Encounter - Tamica Recinos CMA - 06/16/2024 3:43 PM EST Patient needs a letter stating that you have been treating him and he is unable to work for child support. [facility]11-14-2024 Telephone encounter Note* Telephone Encounter - Cris Singh DO - 06/16/2024 3:43 PM EST Message noted. A letter is in his chart [facility]10-30-2024 History of Present illness Narrative* Paola Serrano MD - 06/01/2024 1:10 PM EDT Subjective Patient ID: Bee Harris is a [...] Purpura (CMS/HCC) 08/21/2022 TBI (traumatic brain injury) ([facility]) 02/15/2024 Urinary retention 06/29/2022 Well adult health check 08/21/2022 Resolved Ambulatory Problems Diagnosis Date Noted No Resolved Ambulatory Problems Past Medical History: Diagnosis Date B12 deficiency Cataracts, bilateral Glaucoma (CMS/HCC) Meniere's disease Smoker Traumatic brain injury ([facility]) Past Surgical History: Procedure Laterality Date CT [...] to facilitate vestibular rehab documented in this encounterLafayette Regional Health CenterKohhjqbhlf18-31-2100 History of Present illness Narrative* MARIE Kraft - 05/25/2024 2:30 PM EDT History: Pt was referred to ENT because [...] Ear: Type A tympanogram documented in this [facility]10-17-2024 History of Present illness Narrative* Cris Singh DO - 05/19/2024 12:30 PM EDT IM PROGRESS NOTE Patient - Bee Harris [...] He continues to have daily headaches. They arepresent when he wakes up in the morning, and worsened throughout the day. He describes it as a frontal and bitemporal headache. Feels like a dull aching pressure sensation. No ear pain or hearing problems associated. Does have chronic dizziness. -he continues to have blurred vision and pressure in his eyes. He is being treated for glaucoma. Heis taking drops, does not know what his pressures are. Sees the atg architect in several weeks for recheck. As cataracts [...] 1 drop to both eyes nightly., Disp: ,Rfl: meloxicam (MOBIC) 15 mg tablet, TAKE 1 TABLET (15 MG TOTAL) BY MOUTH IN THE MORNING, Disp: 30 tablet, Rfl: 1 pregabalin (LYRICA) 50 mg capsule, Has not started it., Disp: , Rfl: topiramate (TOPAMAX) 50 mg tablet, Take 1 tablet (50 mg total) by mouth in the morning and 1 tablet(50 mg total) before bedtime., Disp: 60 tablet, [...] Testing No results found. Cris Singh DO., [facility]: [phone] documented in this encounterWilson Health10-14-2024 Telephone encounter Note* Telephone Encounter - Savita Alcantara NP - 05/16/2024 8:41 AM EDT Reviewed, thank you. [facility] [id number] Miscellaneous Notes* Telephone Encounter - Savita Alcantara NP - 05/16/2024 8:41 AM EDT Reviewed, thank you. * Telephone Encounter - Becky Guzman MA - 05/16/2024 8:25 AM EDT Note is routed to you and in media * Telephone Encounter - Rogelio Crook MA - 05/13/2024 9:32 AM EDT Notes have been requested. Should be in faxes. * Telephone Encounter - Savita Alcantara NP - 05/12/2024 3:22 PM EDT Can you please request the neurosurgery note for me to review? The patient was seen by Kinza Caba. documented in this encounterLafayette Regional Health CenterBqsldmgtka12-17-1261 Telephone encounter Note* Telephone Encounter - Becky Guzman MA - 05/16/2024 8:25 AM EDT Note is routed to you and in media [facility] [id number] Telephone encounter Note* Telephone Encounter - Rogelio Crook MA - 05/13/2024 9:32 AM EDT Notes have been requested. Should be in faxes. [facility] CenterJlgvizlmhi32-89-0007 Telephone encounter Note* Telephone Encounter - Savita Alcantara NP - 05/12/2024 3:22 PM EDT Can you please request the neurosurgery note for me to review? The patient was seen by Kinza Caba. [place] [id number] History of Present illness Narrative* Savita Alcantara NP - 05/12/2024 2:40 PM EDT Images from the original note were not included. Savita Alcantara NP Chief Complaint Patient presents with Numbness Extremity Weakness Subjective Bee Harris is a 58 y.o. male. HPI The patient presents today for follow up. He had labs and an EMG of the right upper extremity completed for review. He does not drive and receives transportation via his health insurance, [employer]. The patient was evaluated by Dr. Singh ([facility] internal medicine) 04/28/2024. He was evaluated by Dr. Caba (neurosurgery) on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 HYDROcodone-acetaminophen ([place]) 7.5-325 MG tablet, Take 1 tablet by [...] Meniere's disease Polyneuropathy Smoker Traumatic brain injury ([facility]) Medications: Current Outpatient Medications: acetaminophen (Tylenol) 500 [...] in the morning., Disp: , Rfl: HYDROcodone-acetaminophen ([place]) 7.5-325 MG tablet, Take 1 tablet by [...] hallux Rogelio Conway DPM documented in this encounterLafayette Regional Health CenterInstructionsNot on filedocumented in this encounterProPaulding County Hospital SystemInstructionsNot on filedocumented in this encounterProPaulding County Hospital SystemInstructionsNot on filedocumented in this encounterProInfirmary Ltac Hospital Health SystemInstructionsNot on filedocumented in this encounterProInfirmary Ltac Hospital Health SystemInstructionsNot on filedocumented in this encounterProPaulding County Hospital SystemInstructionsNot on filedocumented in this encounterProPaulding County Hospital SystemInstructionsNot on filedocumented in this encounterProInfirmary Ltac Hospital Health SystemInstructionsNot on filedocumented in this encounterProPaulding County Hospital SystemInstructionsNot on filedocumented in this encounterProPaulding County Hospital SystemInstructionsNot on filedocumented in this encounterProPaulding County Hospital SystemInstructionsNot on filedocumented in this encounterProPaulding County Hospital SystemInstructionsNot on filedocumented in this encounterProSelect Medical Specialty [facility], IncReason for referral (narrative)* Diagnostic Procedure Only (Routine) - New RequestSpecialtyDiagnoses / ProceduresReferred By ContactReferred To ContactXR IMAGING Diagnoses Cervical stenosis of spinal canal Procedures XR CERV OTHER 4V AP/LAT/FLX/EXT RADEX SPINE CERVICAL 4 OR 5 VIEWS Lois Medeiros PA-C [address] [place] [address] Xr Imaging [facility] Referral IDStatusReasonStart DateExpiration DateVisits RequestedVisits [id number] Request Auto-Generated Referral / * Diagnostic Procedure Only (Routine) - New RequestSpecialtyDiagnoses / ProceduresReferred By ContactReferred To ContactXR IMAGING Diagnoses Spinal stenosis, lumbar region with neurogenic claudication Procedures XR LUMBAR MOTION 4V AP/LAT/ FLEX/EXT RADEX SPINE LUMBOSACRAL MINIMUM 4 VIEWS Lois Medeiros PA-C [address] [place] [address] Xr Imaging [facility] Referral IDStatusReasonStart DateExpiration DateVisits RequestedVisits [id number] Request Auto-Generated Referral / [facility] for referral (narrative)* Diagnostic Procedure Only (Routine) - ClosedSpecialtyDiagnoses / ProceduresReferred By ContactReferred To ContactXR IMAGING Diagnoses Cervical stenosis of spinal canal Procedures XR CERV OTHER 4V AP/LAT/FLX/EXT RADEX SPINE CERVICAL 4 OR 5 VIEWS Lois Medeiros PA-C [address] [place] [address] [place] [address] Referral IDStatusReasonStbruceton mills DateExpiration DateVisits RequestedVisits [id number] Auto-Generated Referral * Diagnostic Procedure Only (Routine) - ClosedSpecialtyDiagnoses / Procedures Referred By ContactReferred To ContactXR IMAGING Diagnoses Spinal stenosis, lumbar region with neurogenic claudication Procedures XR LUMBAR MOTION 4V AP/LAT/ FLEX/EXT RADEX SPINE LUMBOSACRAL MINIMUM 4 VIEWS Lois Medeiros PA-C [address] [place] [address] [place] [address] Referral IDStatusReasonKasbeer DateExpiration DateVisits RequestedVisits [id number] Auto-Generated Referral [facility] for referral (narrative)* Consultation (Routine) - Pending ReviewSpecialtyDiagnoses / ProceduresReferred By ContactReferred To ContactNeurology Diagnoses 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, subsequent encounter Cris Singh DO [address] [place] [address] Frank Godoy MD [address] [facility] [address] [place] [address] Referral IDStatusReEncompass Health Rehabilitation [facility] DateExpiration DateVisits RequestedVisits [id number] Review Specialty Services Required * Consultation (Routine) - Pending ReviewSpecialtyDiagnoses / ProceduresReferred By ContactReferred To ContactOtolaryngology Diagnoses Meniere's disease of both ears Cris Singh DO [address] [place] [address] Paola Serrano MD [address] [place] [address] Referral IDStatusReasonStart DateExpiration DateVisits RequestedVisits [id number] Review Specialty Services Required [email or web address] [facility] Summary Purpose Family History Relationship Condition Age at Onset Recorded Date/T jeffrey father Renal failure Unknown motherRenal failureUnknownmotherType 2 diabetes mellitusUnknownmotherMalignant neoplasm of lungUnknown Advance Directives Advance Directive Response Recorded Date/ Time Advance Directives No August 20, 2020 4:47am Date ActivatedDate CgykgnafzggDhofvvam40/17/2022 6:51 PM07/12/2022 12:51 PMDate ActivatedDate InactivatedComments10/16/2020 11:21 AM2020 3:58 PMDate ActivatedDate InactivatedComments04/23/2020 2:03 AM04/27/2020 9:19 PMDate ActivatedDate FihwdvqphocXaxcvnfr00/17/2022 6:51 PM07/12/2022 12:51 PMDate ActivatedDate InactivatedComments10/16/2020 11:21 AM2020 3:58 PMDate ActivatedDate InactivatedComments04/23/2020 2:03 AM04/27/2020 9:19 PMDate ActivatedDate InactivatedComments11/16/2024 11:36 AM11/19/2024 2:43 PMQuestion AnswerCommentsFull Code Order Discussed With:* Patient Date ActivatedDate InactivatedComments11/16/2024 11:36 AM11/19/2024 2:43 PM QuestionAnswerCommentsFull Code Order Discussed With:* Patient Chief Complaint and Reason for Visit Chief Complaint r29.898 Reason for Referral SpecialtyDiagnoses / ProceduresReferred By ContactReferred To ContactCT IMAGING Diagnoses Spinal stenosis of cervical region Procedures CT CERVICAL SPINE WO IVCON CT CERVICAL SPINE W/O CONTRAST MATERIAL Ernie Rankin, [place] [address], Mail [address] [id number] Imaging [place] [address] Referral IDStatusReasonStart DateExpiration DateVisits RequestedVisits [id number] Request Auto-Generated Referral /[id number] / ProceduresReferred By ContactReferred To ContactRadiology Diagnoses Traumatic brain injury, 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 with patient surviving, initial encounter ([facility] Procedures MR brain without contrast Cris Singh, DO [address] [place] [address] Referral IDStatusReasonStart DateExpiration DateVisits RequestedVisits [id number] Review/ Additional Source Comments (unrecognized sect ion and content) No Status Records FoundNo Status Records FoundNo Status Records FoundNo Status Records FoundNo Status Records FoundNo Status Records FoundNo Status Records FoundNo Status Records FoundNo Status Records FoundNo Status Records FoundNo Status Records FoundNo Status Records Found INFORMATION SOURCE (unrecogn ized section and content) DATE CREATED AUTHOR 03/11/2019 [facility] DATE CREATED AUTHOR AUTHOR'S ORGANIZ ATION 12/09/2023 [facility] DATE CREATED AUTHOR AUTHOR'S ORGANIZ ATION 12/24/[address] [facility] DATE CREATED AUTHOR AUTHOR'S ORGANIZ ATION 10/29/2024 [facility] DATE CREATED AUTHOR AUTHOR'S ORGANIZ ATION 11/22/2024 [facility] DATE CREATED AUTHOR AUTHOR'S ORGANIZ ATION 12/20/2024 [facility] DATE CREATED AUTHOR AUTHOR'S ORGANIZ ATION 02/11/2025 [facility] DATE CREATED AUTHOR AUTHOR'S ORGANIZ ATION 02/24/2025 [facility] DATE CREATED AUTHOR AUTHOR'S ORGANIZ ATION 03/03/2025 [facility] DATE CREATED AUTHOR AUTHOR'S ORGANIZ ATION 03/11/2025 [facility] DATE CREATED AUTHOR AUTHOR'S ORGANIZ ATION 03/16/2025 [facility] DATE CREATED AUTHOR AUTHOR'S ORGANIZ ATION 04/08/2025 [facility] EPIC Care Teams (unrecognized sec tion and content) Team Status: Active Member Role Status Dates NON STAFF Primary Care Provider Active Team Status: Inactive Member Role Status Dates NON STAFF Primary Care Provider Active Start: February 18, 2024 End: February 17Stevie Almonte ProviderActiveStart: February 18, 2024 End: February 18, 2024Team MemberRelationshipSpecialtyStart DateEnd Date Cris Singh MD [address] [place] [address] PCP - GeneralInternal Medicine01/04/24Team MemberRelationshipSpecialtyStart Date End Date Cris Singh MD [address] [place] [address] PCP - GeneralInternal Medicine01/04/24Team MemberRelationshipSpecialtyStart Date End Date Cris Singh MD [address] [place] [address] PCP - GeneralInternal Medicine01/04/24Team MemberRelationshipSpecialtyStart Date End Date Cris Singh MD [address] [place] [address] PCP - GeneralInternal Medicine01/04/24Team MemberRelationshipSpecialtyStart Date End Date Cris Singh MD [address] [place] [address] PCP - GeneralInternal Medicine01/04/24Team MemberRelationshipSpecialtyStart Date End Date Cris Singh MD [address] [place] [address] PCP - GeneralInternal Medicine01/04/24Team MemberRelationshipSpecialtyStart Date End Date Cris Singh DO [address] [place] [address] PCP - GeneralInternal Medicine12/07/23Team MemberRelationshipSpecialtyStart Date End Date Cris Singh [address] [place] [address] PCP - GeneralInternal Yacxmezj92/12/24 Kinza Caba DO [address] [place] [address] BgtqbeujwPbyiqdswx61/12/24Team MemberRelationshipSpecialtyStart DateEnd Date Cris Singh MD [address] [place] [address] PCP - GeneralInternal Medicine01/04/24Team MemberRelationshipSpecialtyStart Date End Date Cris Singh DO [address] [place] [address] PCP - GeneralInternal Medicine12/07/23Team MemberRelationshipSpecialtyStart Date End Date Cris Singh [address] [place] [address] PCP - GeneralInternal Ukoiuxcq53/12/24 Kinza Caba DO [address] [place] [address] ItdbqfexjFfafziklo01/12/24Team MemberRelationshipSpecialtyStart DateEnd Date Cris Singh DO [address] [place] [address] PCP - GeneralInternal Medicine12/07/23Team MemberRelationshipSpecialtyStart Date End Date Cris Singh DO [address] [place] [address] PCP - GeneralInternal Medicine12/07/23Team MemberRelationshipSpecialtyStart Date End Date Cris Singh, DO [address] [place] [address] PCP - GeneralInternal Medicine12/07/23Team MemberRelationshipSpecialtyStart Date End Date Cris Singh, DO [address] [place] [address] PCP - GeneralInternal Medicine12/07/23Team MemberRelationshipSpecialtyStart Date End Date Cris Singh DO [address] [place] [address] PCP - GeneralInternal Medicine12/07/23Team MemberRelationshipSpecialtyStart Date End Date Cris Singh DO [address] [place] [facility] [place] [address] PCP - GeneralInternal Medicine12/07/23Team MemberRelationshipSpecialtyStart Date End Date Cris Singh DO [address] [place] [facility] [place] [address] PCP - GeneralInternal Medicine12/07/23Team MemberRelationshipSpecialtyStart Date End Date Cris Singh DO [address] [place] [address] PCP - GeneralInternal Medicine12/07/23Team MemberRelationshipSpecialtyStart Date End Date Cris Singh DO [address] [place] [address] PCP - GeneralInternal Medicine12/07/23Team MemberRelationshipSpecialtyStart Date End Date Cris Singh MD [address] [place] [address] PCP - GeneralInternal Medicine01/04/24Team MemberRelationshipSpecialtyStart Date End Date Cris Singh MD [address] [place] [address] PCP - GeneralInternal Medicine01/04/24Team MemberRelationshipSpecialtyStart Date End Date Cris Singh [address] [place] [address] PCP - GeneralInternal Vreepeyw56/12/24 Kinza Caba DO [address] [place] [address] FyaeiemyqDsjytimxs06/12/24Team MemberRelationshipSpecialtyStart DateEnd Date Cris Singh [address] [place] [address] PCP - GeneralInternal Imcibsqx53/12/24 Kinza Caba DO [facility] [place] [address] WacgtavxrGjhbqdmpl88/12/24Team MemberRelationshipSpecialtyStart DateEnd Date Cris Singh [address] [place] [address] PCP - GeneralInternal Uobprlpx66/12/24 Kinza Caba DO [address] [place] [address] XekxhdwcbQeqxidtlc64/12/24Team MemberRelationshipSpecialtyStart DateEnd Date Cris Singh [address] [place] [address] PCP - GeneralInternal Ugwblwqc14/12/24 Kinza Caba DO [address] [place] [address] ZtbtrpfwiPzdddtogn86/12/24Team MemberRelationshipSpecialtyStart DateEnd Date Cris Singh [address] [place] [address] PCP - GeneralInternal Pijgckfg70/12/24 Kinza Caba DO [address] [place] [address] RgggblxvqVverbjidu97/12/24Team MemberRelationshipSpecialtyStart DateEnd Date Cris Singh [address] [place] [address] PCP - GeneralInternal Ltnmevnr97/12/24 Kinza Caba DO [address] [place], [place] [address] [address] ImxqacankOssgmtjwh89/12/24Team MemberRelationshipSpecialtyStart DateEnd Date Cris Singh [address] [place] [address] PCP - GeneralLittle [facility] Medical Centernal Effbymsb09/12/24 Kinza Caba DO [address] [place] [address] HhtlwgtzkFxmvymzuc95/12/24Team MemberRelationshipSpecialtyStart DateEnd Date Cris Singh [address] [place] [address] PCP - GeneralLittle [facility] Medical Centernal Ubowynff00/12/24 Kinza Caba DO [address] [place] [address] IkkwthkliBrdpqhvcs93/12/24Team MemberRelationshipSpecialtyStart DateEnd Date Cris Singh [address] [place] [address] PCP - GeneralInternal Fuszejvs53/12/24 Kinza Caba DO [address] [place] [address] KalcbywriDazoyrdpx80/12/24Team MemberRelationshipSpecialtyStart DateEnd Date Cris Singh [address] [place] [address] PCP - GeneralInternal Npzlyqco50/12/24 Kinza Caba DO [address] [place] [address] ZfmwdykywSaztfihhd14/12/24Team MemberRelationshipSpecialtyStart DateEnd Date Cris Singh DO [address] [place] [address] PCP - GeneralInternal Medicine12/07/23Team MemberRelationshipSpecialtyStart Date End Date Cris Singh [address] [place] [address] PCP - GeneralInternal Zpffcwnd81/12/24 Kinza Caba DO [address] [place] [address] PbmqhonshVxzupkedw22/12/24Team MemberRelationshipSpecialtyStart DateEnd Date Cris Singh [address] [place] [address] PCP - GeneralInternal Fuatvcxt45/12/24 Kinza Caba DO [address] [place] [address] JzwfujuqoQusvtbpxt00/12/24Team MemberRelationshipSpecialtyStart DateEnd Date Cris Snigh DO [address] [facility] [facility] [place] [address] PCP - GeneralInternal Medicine12/07/23Team MemberRelationshipSpecialtyStart Date End Date Cris Singh [address] [place] [address] PCP - GeneralInternal Wrdgmpvx56/12/24 Kinza Caba DO [address] [place] [address] FrpltmfnxZwcdtfggk67/12/24Team MemberRelationshipSpecialtyStart DateEnd Date Cris Singh [address] [place] [address] PCP - GeneralInternal Tggrolds90/12/24 Kinza Caba DO [address] [place] [address] QbguubimjJdbeaesum36/12/24Team MemberRelationshipSpecialtyStart DateEnd Date Cris Singh DO [address] [facility] [place] [address] PCP - GeneralInternal Medicine12/07/23Team MemberRelationshipSpecialtyStart Date End Date Cris Singh MD [address] [place] [address] PCP - GeneralInternal Medicine01/04/24Team MemberRelationshipSpecialtyStart Date End Date Cris Singh DO [address] [place] [address] PCP - GeneralInternal Medicine12/07/23Team MemberRelationshipSpecialtyStart Date End Date Cris Singh [address] [place] [address] PCP - GeneralInternal Vyjtzjmg08/12/24 Kinza Caba DO [address] [place] [address] UoisgydojVfstyemmd44/12/24Team MemberRelationshipSpecialtyStart DateEnd Date Cris Singh [address] [place] [address] PCP - GeneralInternal Hqqfquug04/12/24 Kinza Caba DO [address] [place] [address] VwmpkxywdFpsieeqjv02/12/24Team MemberRelationshipSpecialtyStart DateEnd Date Cris Singh [address] [place] [address] PCP - GeneralInternal Cxxqrcsn87/12/24 [facility] golden DO [address] [place] [address] NeivuyuahNsjlxjotf34/12/24Team MemberRelationshipSpecialtyStart DateEnd Date Cris Singh DO [address] [place] [address] PCP - GeneralInternal Medicine12/07/23Team MemberRelationshipSpecialtyStart Date End Date Cris Singh DO [address] [place] [address] PCP - GeneralInternal Medicine12/07/23Team MemberRelationshipSpecialtyStart Date End Date Cris Singh [address] [place] [address] PCP - GeneralInternal Mvbjbpqm19/12/24 Kinza Caba DO [address] [place] [address] YyqsjxfefPdawsbufz68/12/24Team MemberRelationshipSpecialtyStart DateEnd Date Cris Singh MD [address] [place] [address] PCP - GeneralInternal Medicine01/04/24Team MemberRelationshipSpecialtyStart Date End Date Cris Singh MD [address] [place] [address] PCP - GeneralInternal Medicine01/04/24Team MemberRelationshipSpecialtyStart Date End Date Cris Singh MD [address] [place] [address] PCP - GeneralInternal Medicine01/04/24Te MemberRelationshipSpecialtyStart Date End Date Cris Singh MD [address] [place] [address] PCP - GeneralInternal Medicine01/04/24Te MemberRelationshipSpecialtyStart Date End Date Cris Singh MD [address] [place] [address] PCP - GeneralLittle [facility] Medical Centernal Medicine01/04/24 Goals (unrecognized section and content) Goals may be documented in a n alternate section Reason for Visit (unrecogniz ed section and content) ReasonCommentsNumbnessExtremity WeaknessReasonCommentsMeniere's DiseaseAudio 05/25/24ReasonOnset DateCommentsMed Absftx824ReasonCommentsExtremity WeaknessNumbnessHeadacheReasonComments3 month recheckReasonCommentsRadio Main J1 SpecialtyDiagnoses / ProceduresReferred By ContactReferred To ContactXR IMAGING Diagnoses Cervical stenosis of spinal canal Procedures XR CERV OTHER 4V AP/LAT/FLX/EXT RADEX SPINE CERVICAL 4 OR 5 VIEWS Lois Medeiros PA-C [address] [place] [address] [place] [address] Referral IDStatusReasonStart DateExpiration DateVisits RequestedVisits [id number] Auto-Generated Referral /[id number] PatientReasonCommentsNew PatientReason Commentsdiscuss test resultsHeadache all day not been able to sleep.Reason CommentsFollow-upReasonCommentsMed RefillReasonCommentsMed Change RequestReason Onset DateCommentsMed Khwxss474ReasonCommentsHeadacheContinued headaches ReasonCommentsfmla headache and backPain scale 7ReasonOnset DateCommentsMed Ileswm684ReasonCommentsExtremity WeaknessHeadacheNumbnessReasonOnset Date CommentsMed Ypzxvb0709/29/[address]CommentsCons[address]ReasonCommentsRadiology CT SpecialtyDiagnoses / ProceduresReferred By ContactReferred To ContactCT IMAGING Diagnoses Spinal stenosis of cervical region Procedures CT CERVICAL SPINE WO IVCON CT CERVICAL SPINE W/O CONTRAST MATERIAL Ernie Rankin, [employer] [place] [employer] [address], Mail [address] [place] [address] Phone: tel: fax: [facility] [place] [address] Referral IDStatusReasonStart DateExpiration DateVisits RequestedVisits [id number] Auto-Generated Referral /[id number] QuestionReasonCommentsPatient Question Preparations For SurgeryReasonCommentsPre-Op ExamReasonCommentsPatient Update Patient QuestionReasonOnset DateCommentshome care lghfyemdg69/22/2025ReasonOnset DateCommentsRefill Vopvtbl9011/30/2024ReasonCommentsPost OpReasonComments Follow-upNeck surgery 11/16ReasonCommentsMedication ProblemReasonOnset Date CommentsRefill Ztkxvnb2512/27/2024ReasonCommentsneeds referral to foot doctor. Still migraines, numbnessNumbness in shoulders and tingling in feet and finger tipsReasonOnset DateCommentsRefill Psxhosz7401/20/2025ReasonCommentsHammer ToeFoot CallousesReasonCommentsFollow UpSpecialtyDiagnoses / ProceduresReferred By ContactReferred To Contact Diagnoses Cervical spondylosis with myelopathy Acute post-operative pain Procedures PROVIDER ORDERED FOLLOW UP OFFICE/OUTPATIENT [facility] MDM 60 MINUTES Ernie Rankin, [employer] [place] [employer] [address] [place] [address] Phone: tel: fax: Referral IDStatusReasonStart DateExpiration DateVisits RequestedVisits [id number] PCP Requested Referral /[id number]d infoReasonCommentsFollow UpReason CommentsRadio Gen RMPRadiology Service Progress NotePATIENT NAME: Bee HarrisMRN: [id number] OF SERVICE: February 21, 2025TIME: 2:05 PMPATIENT IDENTITY VERIFICATION COMPLETED USING TWO (2) IDENTIFIERS: Name and Date of confirmed by patient verbally.FALL SCREENING: Has the patient had 2 falls in the last year or 1 fall with injury or currently using an Ambulatory Assistive Device (Walker, Cane, Wheelchair, Crutches, etc.)? 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) Anemia following surgery Procedures XR CERV GENERAL 2V AP/LAT RADEX SPINE CERVICAL 2 OR 3 VIEWS Ernie Rankin APRN.[address], Mail Code [address] [place] [address] Phone: tel: fax: XR [facility] [place] [address] Referral IDStatusReasonStart DateExpiration DateVisits RequestedVisits [id number] Auto-Generated Referral /[id number]-oh clearence for toe amputationReason CommentsConsent Or InstructionspreopReasonCommentsPost-op7d s/p ampReason CommentsPost-opReasonCommentsToenail Care Source Comments (unrecognize d section and content) In the event this informatio n is protected by the Federal Confidentiality of Alcohol and Drug Abuse Patient Records regulations: The Federal rules restrict any use of the information to criminally investigate or prosecute any alcohol or drug abuse patient.[facility] CenterIn the event this information is protected by the Federal Confidentiality of Alcohol and Drug Abuse Patient Records regulations: The Federal rules restrict any use of the information to criminally investigate or prosecute any alcohol or drug abuse patient.[facility] CenterIn the event this information is protected by the Federal Confidentiality of Alcohol and Drug Abuse Patient Records regulations: The Federal rules restrict any use of the information to criminally investigate or prosecute any alcohol or drug abuse patient.[facility] CenterIn the event this information is protected by the Federal Confidentiality of Alcohol and Drug Abuse Patient Records regulations: The Federal rules restrict any use of the information to criminally investigate or prosecute any alcohol or drug abuse patient.[facility] CenterIn the event this information is protected by the Federal Confidentiality of Alcohol and Drug Abuse Patient Records regulations: The Federal rules restrict any use of the information to criminally investigate or prosecute any alcohol or drug abuse patient.[facility] CenterIn the event this information is protected by the Federal Confidentiality of Alcohol and Drug Abuse Patient Records regulations: The Federal rules restrict any use of the information to criminally investigate or prosecute any alcohol or drug abuse patient.[facility] CenterIn the event this information is protected by the Federal Confidentiality of Alcohol and Drug Abuse Patient Records regulations: The Federal rules restrict any use of the information to criminally investigate or prosecute any alcohol or drug abuse patient.[facility] CenterIn the event this information is protected by the Federal Confidentiality of Alcohol and Drug Abuse Patient Records regulations: The Federal rules restrict any use of the information to criminally investigate or prosecute any alcohol or drug abuse patient.[facility] CenterIn the event this information is protected by the Federal Confidentiality of Alcohol and Drug Abuse Patient Records regulations: The Federal rules restrict any use of the information to criminally investigate or prosecute any alcohol or drug abuse patient.[facility] CenterIn the event this information is protected by the Federal Confidentiality of Alcohol and Drug Abuse Patient Records regulations: The Federal rules restrict any use of the information to criminally investigate or prosecute any alcohol or drug abuse patient.[facility] CenterIn the event this information is protected by the Federal Confidentiality of Alcohol and Drug Abuse Patient Records regulations: The Federal rules restrict any use of the information to criminally investigate or prosecute any alcohol or drug abuse patient.[facility] CenterIn the event this information is protected by the Federal Confidentiality of Alcohol and Drug Abuse Patient Records regulations: The Federal rules restrict any use of the information to criminally investigate or prosecute any alcohol or drug abuse patient.[facility] CenterIn the event this information is protected by the Federal Confidentiality of Alcohol and Drug Abuse Patient Records regulations: The Federal rules restrict any use of the information to criminally investigate or prosecute any alcohol or drug abuse patient.[facility] CenterIn the event this information is protected by the Federal Confidentiality of Alcohol and Drug Abuse Patient Records regulations: The Federal rules restrict any use of the information to criminally investigate or prosecute any alcohol or drug abuse patient.[facility] CenterIn the event this information is protected by the Federal Confidentiality of Alcohol and Drug Abuse Patient Records regulations: The Federal rules restrict any use of the information to criminally investigate or prosecute any alcohol or drug abuse patient.[facility] CenterIn the event this information is protected by the Federal Confidentiality of Alcohol and Drug Abuse Patient Records regulations: The Federal rules restrict any use of the information to criminally investigate or prosecute any alcohol or drug abuse patient.[facility] CenterIn the event this information is protected by the Federal Confidentiality of Alcohol and Drug Abuse Patient Records regulations: The Federal rules restrict any use of the information to criminally investigate or prosecute any alcohol or drug abuse patient.[facility] CenterIn the event this information is protected by the Federal Confidentiality of Alcohol and Drug Abuse Patient Records regulations: The Federal rules restrict any use of the information to criminally investigate or prosecute any alcohol or drug abuse patient.[facility] CenterIn the event this information is protected by the Federal Confidentiality of Alcohol and Drug Abuse Patient Records regulations: The Federal rules restrict any use of the information to criminally investigate or prosecute any alcohol or drug abuse patient.[facility] CenterIn the event this information is protected by the Federal Confidentiality of Alcohol and Drug Abuse Patient Records regulations: The Federal rules restrict any use of the information to criminally investigate or prosecute any alcohol or drug abuse patient.[facility] CenterIn the event this information is protected by the Federal Confidentiality of Alcohol and Drug Abuse Patient Records regulations: The Federal rules restrict any use of the information to criminally investigate or prosecute any alcohol or drug abuse patient.[facility] CenterIn the event this information is protected by the Federal Confidentiality of Alcohol and Drug Abuse Patient Records regulations: The Federal rules restrict any use of the information to criminally investigate or prosecute any alcohol or drug abuse patient.[facility] CenterIn the event this information is protected by the Federal Confidentiality of Alcohol and Drug Abuse Patient Records regulations: The Federal rules restrict any use of the information to criminally investigate or prosecute any alcohol or drug abuse patient.[facility] CenterIn the event this information is protected by the Federal Confidentiality of Alcohol and Drug Abuse Patient Records regulations: The Federal rules restrict any use of the information to criminally investigate or prosecute any alcohol or drug abuse patient.[facility] CenterIn the event this information is protected by the Federal Confidentiality of Alcohol and Drug Abuse Patient Records regulations: The Federal rules restrict any use of the information to criminally investigate or prosecute any alcohol or drug abuse patient.[facility] CenterIn the event this information is protected by the Federal Confidentiality of Alcohol and Drug Abuse Patient Records regulations: The Federal rules restrict any use of the information to criminally investigate or prosecute any alcohol or drug abuse patient.[facility] FOR RECORDS PERTAINING TO PATIENTS [...] BE BASED ON THE PRIMARY CLINICAL RECORDS. [facility]. provides no warranty or guarantee of the accuracy or completeness of information in this document.
[2025-06-12 08:34] VITALS: BP 170/82; PULSE 92; TEMP 36.8; O2SAT 98
[2025-06-12] MEDS: BUPIVACAINE HCL 0.25% PF 25 MG/10 ML VIAL 8 ML INJ (09:09)
[2025-06-12] MEDS: LIDOCAINE HCL 2% 400 MG/20 ML MDV INJ (09:09)
[2025-06-12 09:11] VITALS: BP 149/75; BP 152/81; PULSE 88; PULSE 90; O2SAT 99
--- NOTE | 2025-06-12 09:12 | W.PM.PROCNOT ---
Date of procedure: 06/12/25 Pre-op diagnosis: Pain due to lumbar spondylosis without myelopathy Post-op diagnosis: same as pre-op Procedure: Procedure: Bilateral L4-5, L5-S1 medial branch block Medications: Bupivacaine 0.25% 6cc The patient was seen and examined in the preoperative holding area.? An informed consent was obtained and placed on the chart.? The patient was brought to the medical procedure unit and placed in the prone position.? A timeout was completed verifying correct patient, procedure site, positioning, plan, and special equipment.? Using aseptic technique, the needle was placed at left L4. Under direct fluoroscopic visualization a Quincke-tipped spinal needle was advanced to the junction of the superior articulating process with the transverse process at the designated medial branch segment.? Preceded by negative aspiration, the above-mentioned injectate was placed in 1 mL aliquots.? The procedure was repeated at left L5, S1.? The needle was removed and insertion site was covered. The same procedure, at the same levels, was completed on the right side. The patient was taken to the postprocedural recovery area and monitored for an appropriate length of time before found suitable for discharge in the company of a responsible adult. Anesthesia: Local Surgeon: Lalitha Vela Pathology: none sent Condition: stable Disposition: no change
== END 2025-06-12 09:17 | disposition home or self-care (01) ==
PROVIDERS: PCP Internal Medicine; Visit Provider Anesthesiology
DX: M47.816 Spondylosis without myelopathy or radiculopathy, lumbar region (principal); M54.50 Low back pain, unspecified
CPT/HCPCS: 64493; 64494; J0665

== ENCOUNTER 2025-06-14 12:29 | Outpatient (OUT) | payer OTHER, SELFPAY ==
--- OUTSIDE RECORDS SUMMARY | 2025-06-14 12:32 | XMS_ITS | Clinical Summary ---
Author Organization [employer] tem Address [facility] [id number] [address] 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 Name Role Phone Rogers Geller DO Primary Care Provider [phone] Allergies No known active allergies Medications MedicationSigDispense [...] (1,000 MCG TOTAL) BY MOUTH IN THE UNGGFXS69/20/2025Active buPROPion XL (WELLBUTRIN XL) 150 mg 24 [...] 90 tablet Discontinued Active Problems ProblemNoted DateDiagnosed GcwsWasdguhmdt44/27/2024TBI (traumatic brain injury) 02/15/2024Oropharyngeal euvyjerqg78/27/2022cute blood loss rwxvsa0006/29/2022 Multiple fractures of ribs, left side, initial encounter for closed fracture 06/29/2022Urinary aqkomhhkd71/27/2022History of colostomy ikcailkl57/16/2021 Perforated fpohjdnwxcdw02/21/2020 Encounters DateTypeDepartmentCare QiieWvlsecdwzcp65/07/2025Refill [facility] [address] [place] [id number] Rogers Geller, 06/07/2025Results Follow-Up [facility] [address] [place] [phone] Rogers Geller, Consult Occupational Therapy- eval/treat06/07/2025Orders Only [facility] [address] [place] [phone] Ref Prov, Not In System 05/04/2025Refill [facility] [address] [place] [address] Wild Holliday CMA Localized osteoarthritis of lumbar spine03/14/2025[facility] [address] [place] [address] Rogers Geller, DO Localized osteoarthritis of lumbar spinefrom Last 3 Months Immunizations No known immunizations Family History Medical HistoryRelationNameCommentsCancerBrotherHeart diseaseBrotherKidney diseaseBrotherCoronary artery diseaseFatherHeart diseaseFatherHeart failure FatherKidney diseaseFatherDiabetesMotherKidney diseaseMotherLung cancerMother DiabetesSonRelationNameStatusCommentsBrotherAliveFatherAliveMotherDeceasedSon Social History Tobacco UseTypesPacks/DayYears UsedDateSmoking Tobacco: Every OkkIgnbqbpwop179 Smokeless Tobacco: Never Tobacco Cessation:Ready to Q [...] times a week04/23/2020How often do you attend restoration or rastafari services?Never04/23/2020Do you belong to any clubs or organizations such as restoration groups, unions, fraternal or athletic groups, or school groups?No04/23/2020How often do you attend meetings of the clubs or organizations you belong to?Never04/23/2020Are you , , , , never , or living with a partner?Never fjnugry2604/23/2020 Overall Financial Resource Strain (CARDIA)AnswerDate RecordedHow hard is it for you to pay for the very basics like food, housing, medical care, and heating? Somewhat hard04/23/2020PHQ-2AnswerDate RecordedTotal Tqpnf047PRAPARE - TransportationAnswerDate RecordedIn the past 12 months, has lack of transportation kept you from medical appointments or from getting medications?No 04/23/2020In the past 12 months, has lack of transportation kept you from meetings, work, or from getting things needed for daily living?No04/23/2020 ChildcareAnswerDate RecordedDo problems getting children counselor make it difficult for you to work [...] Last Filed Vital Signs Vital SignReadingTime TakenCommentsBlood Cxfsqohk845/8007 3:10 PM EDT Vehpw797102/22/2025 2:45 PM GFWLwudzhuopnf21.7 ??C (98 ??F)02/22/2025 2:45 PM EDT Respiratory Aent789702/22/2025 2:45 PM EDTOxygen Pmgjrrjqwh34%02/22/2025 2:45 PM EDTInhaled Oxygen Concentration--Vueanb89.7 kg (197 lb 12.8 oz)02/22/2025 2:45 PM FLFHzgctn862.3 cm (5' 10.98 )02/22/2025 2:45 PM EDTBody Mass Index27.6 02/22/2025 2:45 PM EDT Plan of Treatment Health MaintenanceDue DateLast DoneCommentsTobacco Qsjobnafrd67/27/1967Adult BMI Follow Up Plan1984DTaP,Tdap and Td Vaccines (1 - Tdap)1985Zoster (Shingles) Vaccine (1 of 2)2016COVID-19 Vaccine (2024- season) 2021, 06/19/2021Influenza Jgzyopz4104/03/2025dult BMI Screening /Depression Tiydgkuqa72/Tobacco Screening Goals GoalPatient Goal TypeAssociated ProblemsRecent ProgressPatient-Stated?Author [...] Procedure NamePriorityDate/TimeAssociated DiagnosisCommentsTFL OT CONSULT EVAL AND SACVILqxplnp04/05/2025 7:43 AM EST from Last 3 Months Results * Consult Occupational Therapy- eval/treat (06/07/2025 7:43 AM EST) Narrative Authorizing ProviderResult TypeResult StatusNot In System Ref ProvOT ORDERABLES Final ResultPerforming OrganizationAddressCity/State/ZIP CodePhone Number MANUALLY TRANSCRIBED RESULTS from Last 3 Months Insurance Advance Directives * Full Code (Latest Code Status on File) Date ActivatedDate AghltvxguooLiqlwswu91/17/2022 6:51 PM07/12/2022 12:51 PM * Full Code Date ActivatedDate InactivatedComments10/16/2020 11:21 AM2020 3:58 PM * Full Code Date ActivatedDate InactivatedComments04/23/2020 2:03 AM04/27/2020 9:19 PM Care Teams Team MemberRelationshipSpecialtyStart DateEnd Date Rogers Geller DO [address] [id number] PCP - GeneralInternal Medicine12/07/23
--- OUTSIDE RECORDS SUMMARY | 2025-06-14 12:32 | XMS_ITS | Encounter Summary ---
Author Organization [facility] tem Address [facility] [id number] [address] [place] [address] Care Team Providers Care Patient Care Manager Name Role Phone Rogers Geller Primary Care Provider [phone] Encounter Details DateTypeDepartmentCare Team (Latest Contact Info)Xirkfpnoxlx49/05/2025[facility] [address] [place] [address] Ref Prov, [place] [address] Social History Tobacco UseTypesPacks/DayYears UsedDateSmoking Tobacco: Every BrvVvhstzqkkz072 Smokeless Tobacco: NeverAlcohol UseStandard Drinks/WeekCommentsNot Currently2 (1 standard drink = 0.6 oz pure alcohol)once a whileSocial Connection and Isolation PanelAnswerDate RecordedIn a typical week, how many times do you talk on the phone with family, friends, or neighbors?Three times a week04/23/2020How often do you get together with friends or relatives?Three times a week04/23/2020How often do you attend zoroastrianism or catholic services?Never04/23/2020Do you belong to any clubs or organizations such as zoroastrianism groups, unions, fraternal or athletic groups, or school groups?No04/23/2020How often do you attend meetings of the clubs or organizations you belong to?Never04/23/2020Are you , , , , never , or living with a partner?Never 04/23/2020Overall Financial Resource Strain (CARDIA)AnswerDate RecordedHow hard is it for you to pay for the very basics like food, housing, medical care, and heating?Somewhat hard04/23/2020PHQ-2AnswerDate RecordedTotal Ovlrr280 PRAPARE - TransportationAnswerDate RecordedIn the past 12 months, has lack of transportation kept you from medical appointments or from getting medications?No 04/23/2020In the past 12 months, has lack of transportation kept you from meetings, work, or from getting things needed for daily living?No04/23/2020 ChildcareAnswerDate RecordedDo problems getting home child care provider make it difficult for you to work [...] Procedure NamePriorityDate/TimeAssociated DiagnosisCommentsTFL OT CONSULT EVAL AND RCXCTKmpuotm62/05/2025 7:43 AM EST documented in this encounter [...] DateEnd Date Rogers Geller DO [address] [place] [address] PCP - GeneralInternal Medicine12/07/23documented as of this encounter
--- OUTSIDE RECORDS SUMMARY | 2025-06-14 12:32 | XMS_ITS | Encounter Summary ---
Author Organization [facility] tem Address [facility] [id number] [address] [place] [address] Care Team Providers Care Displayer Merchandise Name Role Phone Rogers Geller DO Primary Care Provider [phone] Encounter Details DateTypeDepartmentCare Team (Latest Contact Info)Aezhyksfpad69/05/2025Results Follow-Up [facility] [address] [place] [address] Rogers Geller DO [address] [place] [address] Consult Occupational Therapy- eval/treat Social History Tobacco UseTypesPacks/DayYears UsedDateSmoking Tobacco: Every RshVvmmzpplnq220 Smokeless Tobacco: NeverAlcohol UseStandard Drinks/WeekCommentsNot Currently2 (1 standard drink = 0.6 oz pure alcohol)once a whileSocial Connection and Isolation PanelAnswerDate RecordedIn a typical week, how many times do you talk on the phone with family, friends, or neighbors?Three times a week04/23/2020How often do you get together with friends or relatives?Three times a week04/23/2020How often do you attend hoahaoism or samaritan services?Never04/23/2020Do you belong to any clubs or organizations such as hoahaoism groups, unions, fraternal [...] housing, medical care, and heating?Somewhat hard04/23/2020PHQ-2AnswerDate RecordedTotal Afkga910 PRAPARE - TransportationAnswerDate RecordedIn the past 12 months, has lack of transportation kept you from medical appointments or from getting medications?No 04/23/2020In the past 12 months, has lack of transportation kept you from meetings, work, or from getting things needed for daily living?No04/23/2020 ChildcareAnswerDate RecordedDo problems getting child care sitter make it difficult for you to work [...] DateEnd Date Rogers Geller DO [address] [place] [address] PCP - GeneralInternal Medicine12/07/23documented as of this encounter
--- OUTSIDE RECORDS SUMMARY | 2025-06-14 12:32 | XMS_ITS | Encounter Summary ---
Author Organization [facility] [employer] tem Address [facility] [id number] [address] [place] [address] Care Team Providers Care Network Control Operator Name Role Phone Rogers Geller DO Primary Care Provider [phone] Reason for Visit * ReasonCommentsMed Refill Encounter Details DateTypeDepartmentCare Team (Latest Contact Info)Eontkbignfo58/07/2025Refill [facility] - [facility] [address] [place] [phone] Rogers Geller DO [address] [place] [address] Social History Tobacco UseTypesPacks/DayYears UsedDateSmoking Tobacco: Every ZhpMnjpfgkbdi846 Smokeless Tobacco: NeverAlcohol UseStandard Drinks/WeekCommentsNot Currently2 (1 standard drink = 0.6 oz pure alcohol)once a whileSocial Connection and Isolation PanelAnswerDate RecordedIn a typical week, how many times do you talk on the phone with family, friends, or neighbors?Three times a week04/23/2020How often do you get together with friends or relatives?Three times a week04/23/2020How often do you attend buddhist or methodist services?Never04/23/2020Do you belong to any clubs or organizations such as buddhist groups, unions, fraternal or athletic groups, or school groups?No04/23/2020How often do you attend meetings of the clubs or organizations you belong to?Never04/23/2020Are you , , , , never , or living with a partner?Never 04/23/2020Overall Financial Resource Strain (CARDIA)AnswerDate RecordedHow hard is it for you to pay for the very basics like food, housing, medical care, and heating?Somewhat hard04/23/2020PHQ-2AnswerDate RecordedTotal Tknxk766 PRAPARE - TransportationAnswerDate RecordedIn the past 12 [...] DateEnd Date Rogers Geller DO [address] [place] [address] PCP - GeneralInternal Medicine12/07/23documented as of this encounter
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
--- OUTSIDE RECORDS SUMMARY | 2025-06-14 12:32 | XMS_ITS | Clinical Summary ---
Author Organization [facility] Address [address] [place] [address] Care Team Providers Care Putter In Name Role Phone Rogers Geller MD Primary Care Provider [phone] Allergies No known active allergies Medications MedicationSigDispense [...] by mouth every 6 (six) hours if zmonaj1312/29/2023ctive latanoprost (Xalatan) 0.005 % ophthalmic solution INSTILL ONE DROP IN EACH EYE BEFORE BED02/17/2024ctive pregabalin (Lyrica) 75 MG capsule Take 75 mg by mouth in the morning and 75 mg in the evening and 75 mg before bedtime.Active HYDROcodone-acetaminophen ([place]) 7.5-325 MG tablet Take 1 tablet by mouth 2 (two) times a day as jlimjs1307/31/2024ctive buPROPion XL (Wellbutrin XL) 150 MG 24 [...] Problems ProblemNoted DateDiagnosed DateTBI (traumatic brain injury)07/15/2024Current yvllkq1108/21/2022iverticulitis of colon with qrxhzpauqwe05/19/2023Essential omcnogkmcoqc35/19/5959Qtazgkuuehaix56/19/5759Megroqibkgcoau60/19/2023Hypokalemia 08/21/20223731Eskvqosquf54/19/4857Epapleo00/19/2023Well adult health check08/21/2022 Acute blood loss pktulj8606/29/2022Multiple fractures of ribs, left side, initial encounter for closed nfvyxxzu72/27/2022ropharyngeal /27/2022Urinary qfueecpil13/27/9071Xisz24/17/2022History of colostomy iarvynyt03/16/2021 Perforated uudujmtdbswf01/21/2020 Encounters DateTypeDepartmentCare SdvaWixsmzxehtb30/04/2025 3:40 PM EDTProcedure Visit [facility] [address] [facility] [address] [place] [address] Rogelio Kirk DPM Hav (hallux abducto valgus), left (Primary Dx); Pain due to onychomycosis of toenails of both feet; Acquired deformity of left toe04/06/2025amboo flowsheet [facility] [address] [place] [address] [place] [address] Rogelio Kirk DPM 04/06/20253870Yfgtuw26/28/2025 4:40 PM EDTOffice Visit [facility] [address] [facility] [address] [place] [address] Rogelio Kirk DPM Acquired deformity of left toe (Primary Dx)03/30/2025amboo flowsheet [facility] [address] [facility] [address] [place] [address] Rogelio Kirk DPM 03/30/20258135Weupmi94/14/2025 4:20 PM EDTOffice Visit [facility] [address] [facility] [address] [place] [address] Rogelio Kirk DPM Acquired deformity of left toe (Primary Dx)03/16/2025amboo flowsheet [facility] [address] [facility] [address] [place] [address] Rogelio Kirk DPM 03/16/2025Travelfrom Last 3 Months Social History Tobacco UseTypesPacks/DayYears UsedDateSmoking Tobacco: Every DayCigarettes Smokeless Tobacco: Never Tobacco Cessation:Ready to Q uit: Not Asked; Counseling Given: Yes Alcohol UseStandard Drinks/WeekCommentsNot Currently0 (1 standard drink = 0.6 oz pure alcohol)Sex and Gender InformationValueDate RecordedSex Assigned at Not on fileLegal FnnEzhw0810/15/2022 10:13 PM EDTGender IdentityNot on fileSexual OrientationNot on file Last Filed Vital Signs Vital SignReadingTime TakenCommentsBlood Kutqygml347/8002 3:41 PM EST Bfwyg1174/24/2025 3:41 PM ESTTemperature--Respiratory Fptq6252 2:55 PM EDTOxygen Rurhxsybql09%09/26/2024 3:41 PM ESTInhaled Oxygen Concentration-- Oulsro14.2 kg (190 lb)04/06/2025 2:55 PM MVLPwryjc709.8 cm (5' 10 )04/06/2025 2:55 PM EDTBody Mass Index27.2609 2:55 PM EDT Plan of Treatment DateTypeDepartmentCare Team (Latest Contact Info)Vfaxevukafz17/20/2025 3:00 PM ESTProcedure Visit [facility] [address] [facility] [address] [place] [address] Rogelio Kirk DPM [address] [facility] [address] [place] [address] Health MaintenanceDue DateLast DoneCommentsCT Unutgmewwnfs52/27/1967Colonoscopy 1966Colorectal Cancer Juacrccky23/27/1967FIT-DNA1966FIT1966 FOBT1966 5504Geblfaouwawsg92/27/1967COVID-19 Vaccine ( season) 512/04/2021, 06/19/2021Influenza Vaccine (#1)2025Pneumococcal Vaccine: Pediatrics (0 to 5 Years) and At-Risk Patients (6 to 64 Years)Aged Out No longer eligible based on patient's age to complete this topic Insurance Care Teams Team MemberRelationshipSpecialtyStart DateEnd Date Rogers Geller MD [address] [place] [address] PCP - GeneralInternal Medicine01/04/24
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
--- OUTSIDE RECORDS SUMMARY | 2025-06-14 12:33 | XMS_ITS | Patient Health Record ---
Author Organization [facility] Address [address] [place], [place] [address] Care Team Providers Care Vice President Of Manufacturing Name Role Phone Cy Nevarez Unavailable Allergies No Known Allergies Reason For Referral [...] Status W/U Status Risk Notes Problem Overweight (272925009) Overweight (E66.3) ActiveconfirmedProblemHypokalemia (33558643)Hypokalemia (E87.6)Activeconfirmed ProblemEssential hypertension (50685841)Essential hypertension (I10)Active confirmed Comment:K is low BP is still high will start him on Spironolactone 25 mg daily and Amlodipine 2.5 mg daily repeat labs in 1 week Mg supplement as well losing K through intestine also plays a role here FU in 2 weeks, ProblemHyperlipidemia (96864849)Hyperlipidemia (E78.5)Activeconfirmed Comment:Will start him on Statin,Story:ASCVD score 13.4%,ProblemDepression screening (029869166)Screening for depression (Z13.31)Activeconfirmed Description:Depression screenProblemCurrent smoker (24681932)Current smoker (F17.200)ActiveconfirmedProblemPurpura (65227739)Purpura (D69.2)Activeconfirmed Comment:only on right arm and mildly on the left forearm, no other parts of the body no Intestinal bleeding advised on taking Multivitamin will check vitamin C level Can also be due to ASA that he takes daily his risk score is more than 10% so can take it for primary prevention, but with increased risk of bleeding, ProblemFollow-up status (483618698)Follow up (Z09)ActiveconfirmedStory:see 05/06/21 message--REMA,ProblemAdult health examination (570024473)Encounter for wellness examination in adult (Z00.00)ActiveconfirmedProblemDiverticulitis of colon with perforation (32745823)Diverticulitis of colon with perforation (K57.20)Activeconfirmed Story:S/p appendectomy, sigmoid colectomy and end Colostomy Happened in Apr 2020, following up with Dr. Hicks [facility], ProblemHyperglycemia (54670515)Hyperglycemia (R73.9)ActiveconfirmedProblem Immunization education (235426336)Immunization counseling (Z71.85)Active confirmedStory:declined Pneumovax, Flu, Plan Of Treatment No Information Insurance Providers Payer Name Payer Address Payer Phone Subscriber Number Group Number Insured Name Patient Relationship to Insured Coverage Start Date Coverage End Date [facility] [address] [place], [place] [id number] Maxwell Gonsalez Self - patient is the insured 0 Medicaid [employer] after [facility] [address] [place], [place] [id number], DouglasSelf - patient is the [id number] 2020 Medical (General) History Medical History History ICD Code Hyperlipidemia, COMMENTS: ASCVD score 13 .4% Immunization counseling, declined Pneumovax, FluOverweightSurgical History Surgery Date(Month/Year) cheekbone repair Tonsillectomy and adenoidectomy
--- OUTSIDE RECORDS SUMMARY | 2025-06-14 12:36 | XMS_ITS | CCD ---
Author Organization [facility] Care Team Providers Care Tractor Distributor Name Role Phone ROXANE MITCHELL Admitting Unavailable [...] Provider Cris Singh MD Primary Care Provider Cris Singh DO Primary Care Provider [phone] Cris Singh Primary Care Provider Kinza Caba DO Unavailable [phone] Dane CLARK, Lalitha Arango Attending Unavailable Dane CLARK, Angierius Arango Attending Unavailable Dane CLARK, Andrius Nba Attending Unavailable Dane CLARK, Lalitha Arango Attending Unavailable Cris Singh DO Primary Care Provider [phone] JUS WISDOM Admitting Unavailable JUS WISDOM Attending [...] Unavailable Cris Singh MD Primary Care Provider [phone] Cris Singh DO Primary Care Provider [phone] Medications Current Medications MedicationDrug Class(es)DatesSig (Normalized)Sig (Original)acetaminophen 500 mg oral tablet (20 sources)Start: 11-18-2024 End: 65-23-7691goil 2 tablets by mouth every eight hoursacetaminophen (TYLENOL EXTRA STRENGTH) 500 mg tablet Indications: Cervical spondylosis with myelopathy , Acute post-operative pain Take 2 tablets by mouth every 8 hours. 180 tablet 2 12/01/2024 03/01/2025 ActiveStart: 12-29-2023 End: 28-20-7975ukvv 1 tablet by mouth every six hours as neededacetaminophen (Tylenol) 500 MG tablet Take 500 mg by mouth every 6 (six) hours if needed 12/29/2023ctiveStart: 07-12-2022 End: 03-32-2666rcpu 2 tablets by mouth every six hours as needed for pain acetaminophen (TYLENOL EXTRA STRENGTH) 500 mg tablet Take 2 tablets (1,000 mg total) by mouth every6 (six) hours as needed for pain. 30 tablet 07/12/2022 12/07/2023 Discontinued (Therapy completed)acetaminophen 325 mg / HYDROcodone bitartrate 7.5 mg oral tablet (20 sources)Opioid AgonistStart: 07-31-2024 End: 52-22-0255mfzt 1 tablet by mouth twice daily as neededHYDROcodone- acetaminophen ([place]) 7.5-325 MG tablet Take 1 tablet by mouth 2 (two) times a day as needed 07/31/2024 ActiveStart: 07-31-2024 End: 01-11-7244rexy 1 tablet by mouth onceHYDROcodone-Acetaminophen (NORCO) 7.5- 325 mg per tablet Take 1 tablet by mouth. 07/31/2024 12/14/2024 Discontinued acetaminophen 325 mg / oxyCODONE hydrochloride 5 mg oral tablet (3 sources)Opioid AgonistStart: 03-02-2025 End: 03-18-1661gvma 1 tablet by mouth every eight hours for painoxyCODONE- acetaminophen (Percocet) 5-325 MG tablet Indications: Pain Take 1 tablet by mouth every 8(eight) hours if needed for severe pain for up to 5 days 15 tablet 03/08/2025 03/13/2025 ActiveamLODIPine 2.5 mg oral tablet (11 sources)Dihydropyridine Calcium Channel BlockerStart: 02-23-2024 End: 58-22-5994aevu 1 tablet by mouth in the eveningamLODIPine (Norvasc) 2.5 MG tablet Take 1 tablet by mouth in the evening 02/23/2024 06/01/2024 Discontinued (Therapy completed) End: 98-98-2498idgb 1 tablet by mouth in the morningamLODIPine (NORVASC) 2.5 mg tablet Indications: hypertension Take 1 tablet (2.5 mg total) by mouth in the morning. Indications: high blood pressure. evening. 12/07/2023 Discontinued (Side effects)atorvastatin 40 mg oral tablet (20 sources)HMG-CoA Reductase InhibitorStart: 12-13-2024 End: 51-21-4748cbgu 1 tablet by mouth in the morningatorvastatin (LIPITOR) 40 mg tablet Indications: hyperlipidemia TAKE 1 TABLET (40 MG TOTAL) BY MOUTH IN THE MORNING. INDICATIONS: EXCESSIVE FAT IN THE BLOOD. 90 tablet 1 06/09/2025 Active Start: 12-29-2023 End: 24-27-2821sbzz 0.5 tablet by mouth in the morningatorvastatin (LIPITOR) 40 mg tablet Indications: hyperlipidemia Take 0.5 tablets (20 mg total) by mouth in the morning. Indications: excessive fat in the blood. 12/29/2023 12/13/2024 Discontinued (Reorder)Start: 05-08-2020 End: 59-68-6594aoix 1 tablet by mouth in the morningatorvastatin (LIPITOR) 40 mg tablet Indications: hyperlipidemia Take 1 tablet (40 mg total) by mouth in the morning. Indications: excessive fat in the blood. 90 tablet 1 12/13/2024 Active 24 hr buPROPion hydrochloride 150 mg extended release oral tablet (20 sources)AminoketoneStart: 08-22-2024 End: 96-32-3634scea 1 tablet by mouth once daily in the morningbuPROPion XL (WELLBUTRIN XL) 150 mg 24 hr tablet Indications: Tobacco abuse Take 1 tablet (150 mg total) by mouth every morning. 90 tablet 1 02/22/2025 ActiveStart: 50-36-0969hcpo 1 tablet by mouth every twenty-four hoursbuPROPion XL (WELLBUTRIN XL) 150 mg 24 hr tablet Take 150 mg by mouth. 08/22/2024 Activeferrous sulfate (10 sources) End: 41-05-0520ohoq 1 tablet by mouth in the morningFerrous Sulfate (IRON PO) Take 1 tablet by mouth in the morning. 06/01/2024 Discontinued (Therapy co mpleted)take 1 tablet by mouth in the morningFerrous Sulfate (IRON PO) Take 1 tablet by mouth in the morning. Activegabapentin 300 mg oral capsule (16 sources)Anti-epileptic AgentStart: 01-18-2024 End: 78-15-8626flfewbjzzn (NEURONTIN) 300 mg capsule Take 1 capsule (300 mg total) by mouth. 03/24/2024 ActiveStart: 12-19-2022 End: 64-13-5975yfyi 1 capsule by mouth three times dailygabapentin (NEURONTIN) 400 mg capsule Take 1 capsule (400 mg total) by mouth 3 (three) times a day. 12/19/2022 12/07/2023 Discontinued (Therapy completed)latanoprost 0.05 mg/ml ophthalmic solution (20 sources)Prostaglandin AnalogStart: 53-95-1982arol 1 drop(s) into the eye(s) once dailylatanoprost (XALATAN) 0.005 % ophthalmic solution Indications: Glaucoma of both eyes, unspecified glaucoma type Administer 1 drop to both eyes nightly. 03/08/2024 ActiveStart: 24-06-8864qbtgzmeehfa (Xalatan) 0.005 % ophthalmic solution INSTILL ONE DROP IN EACH EYE BEFORE BED 02/17/2024 Active lisinopril 10 mg oral tablet (18 sources)Angiotensin Converting Enzyme InhibitorStart: 89-50-4151kblhfnnkmq (ZESTRIL) 10 mg tablet 01/16/2025 ActiveStart: 02-23-2024 End: 18-64-5618tsmj 1 tablet by mouth in the morninglisinopril 10 MG tablet Take 10 mg by mouth in the morning. 02/23/2024 06/01/2024 Discontinued (Therapy completed)Start: 08-22-2020 End: 42-91-1294rugk 10 mg by mouth once dailyLisinopril Active 10 MG PO Daily 30 August 22, 2020 1:00ammeloxicam 15 mg oral tablet (20 sources)Nonsteroidal Anti-inflammatory DrugStart: 12-29-2023 End: 76-36-2377kkcz 1 tablet by mouth in the morning, then take 1 tablet by mouth in the morningmeloxicam (MOBIC) 15 mg tablet Indications: Localized osteoarthritis of lumbar spine Take 1 tablet (15 mg total) by mouth in the morning. TAKE 1 TABLET (15 MG TOTAL) BY MOUTH IN THE MORNING. 30 tablet 2 05/04/2025 Activemethocarbamol 750 mg oral tablet (20 sources)Muscle RelaxantStart: 12-27-2024 End: 99-39-9103ijoq 1 tablet by mouth four times dailymethocarbamol (ROBAXIN) 750 mg tablet Take 1 tablet by mouth four times daily. 120 tablet 2 12/27/2024 03/27/2025 ActiveStart: 11-18-2024 End: 51-44-5131xlnu 1 tablet by mouth four times daily in the evening methocarbamol (ROBAXIN) 750 mg tablet Take 1 tablet by mouth four times daily. 120 tablet 11/18/2024 2:57 PM EDT 11/18/2024 12/18/2024 Activenaloxone hydrochloride 40 mg/ml nasal spray (14 sources)Opioid AntagonistStart: 32-96-7014mgdgyklg (Narcan) 4 mg/0.1 mL nasal spray 07/14/2024 Activenaloxone 4 mg/actuation nasal spray (NARCAN) (20 sources)Start: 96-43-8946vaylccdo 4 mg/actuation nasal spray (NARCAN) 07/14/2024 ActiveStart: 43-94-6791aamiilcq 4 mg/actuation nasal spray (NARCAN) PLEASE SEE ATTACHED FOR DETAILED DIRECTIONS 07/14/2024ctiveondansetron 4 mg disintegrating oral tablet (2 sources)Serotonin-3 Receptor AntagonistStart: 11-18-2024 End: 93-15-3971vdua 1 tablet by mouth every eight hours as neededondansetron orally disintegrating (ZOFRAN ODT) 4 mg disintegrating tablet Take 1 tablet by mouth every 8 hours as needed for nausea/vomiting for up to 7 days. 20 tablet 11/18/2024 2:57 PM EDT 11/18/2024 11/25/2024 ActiveoxyCODONE hydrochloride 5 mg oral tablet (19 sources)Opioid AgonistStart: 12-01-2024 End: 27-96-4972oqpp 1 tablet by mouth every six hours as needed for pain oxyCODONE (ROXICODONE) 5 mg immediate release tablet Indications: 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 TAKE 1 TABLET BY MOUTH EVERY 6 HOURS NEEDED FOR PAIN FOR UP TO 7 DAYS. FOR PAIN. 12/01/2024 ActiveStart: 12-01-2024 End: 85-59-7758yzag 1 tablet by mouth every eight hours as needed for pain oxyCODONE IR (ROXICODONE) 5 mg immediate release tablet Indications: Post- operative pain Take 1 tablet by mouth every 8 hours as needed for pain for up to 7 days. 21 tablet 01/20/2025 01/27/2025 ActiveStart: 11-18-2024 End: 58-83-7434rqqn 1 tablet by mouth every six hours as needed for pain oxyCODONE IR (ROXICODONE) 5 mg immediate release tablet Indications: Cervical spondylosis with myelopathy Take 1 tablet by mouth every 6 hours as needed for pain for up to 10 days. for pain. 40 tablet 11/18/2024 2:57 PM EDT 11/18/2024 11/28/2024 Activepolyethylene glycol 3350 00497 mg powder for oral solution (5 sources)Osmotic LaxativeStart: 11-18-2024 End: 91-75-7421glarznczstus glycol 3350 17 gram/dose powder Take 17 g by mouth once daily. Dissolve dose in 4 - 8 ounces of liquid and take as directed. 476 g 11/18/2024 2:57 PM EDT 11/18/2024 12/18/2024 Activepregabalin 200 mg oral capsule (20 sources)Start: 79-68-8825zyytskusrt (LYRICA) 200 mg capsule Take 1 capsule (200 mg total) by mouth. 12/27/2024 ActiveStart: 05-16-2024 End: 41-97-7538dofexyxjlc (LYRICA) 50 mg capsule Has not started it. 05/16/2024 12/13/2024 Discontinued (Dose adjustment) End: 24-05-5572rzmt 1 capsule by mouth in the morning, then take 1 capsule by mouth in the evening, then take 1 capsule by mouth at bedtimepregabalin (Lyrica) 75 MG capsule Take 75 mg by mouth in the morning and 75 mg in the evening and 75 mg before bedtime. Activethiamine 100 mg oral tablet (2 sources)Start: 08-22-2020 End: 03-00-0341drtg 100 mg by mouth twice dailyThiamine Hcl (Vitamin B1) Active 100 MG PO Twice daily 60 August 22, 2020 1:00amtopiramate 50 mg oral tablet (20 sources)Start: 03-08-2024 End: 57-39-9591kiqy 1 tablet by mouth in the eveningtopiramate (TOPAMAX) 50 mg tablet Indications: Intractable chronic post-traumatic headache Take 1 tablet (50 mg total) by mouth in the evening. 90 tablet 1 02/22/2025 ActiveStart: 12-24-2022 End: 36-53-6502aybm 1 tablet by mouth in the morning, then take 1 tablet by mouth at bedtimetopiramate (TOPAMAX) 25 mg tablet Take 1 tablet (25 mg total) by mouth in the morning and 1 tablet (25 mg total) before bedtime. 60 tablet 2 12/24/2022 12/07/2023 Discontinued (Therapy completed)24 hr venlafaxine 37.5 mg extended release oral capsule (20 sources)Serotonin and Norepinephrine Reuptake InhibitorStart: 08-09-2024 End: 22-99-0878yndx 1 capsule by mouth every twenty-four hoursvenlafaxine ER (EFFEXOR XR) 37.5 mg 24 hr capsule Take 37.5 mg by mouth. 08/09/2024 Active vitamin b12 1 mg oral tablet (20 sources)Vitamin R92Jraki: 56-49-2742eroyatustouorh 1000 MCG tablet Take 1 tablet (1,000 mcg total) by mouth. TAKE 1 TABLET (1,000 MCG TOTAL) BY MOUTH IN THE MORNING 02/19/2025 ActiveStart: 12-08-2023 End: 44-39-6044cmoilslrzeuiza 1000 MCG tablet Take 1 tablet (1,000 mcg total) by mouth. TAKE 1 TABLET (1,000 MCG TOTAL) BY MOUTH IN THE MORNING 02/19/2025 Active Completed/Discontinued Medications MedicationDrug Class(es)DatesSig (Normalized)Sig (Original)acetaminophen 325 mg / butalbital 50 mg / caffeine 40 mg oral tablet (1 source)Barbiturate, Central Nervous System Stimulant, MethylxanthineStart: 12-24-2022 End: 11-90-4866korn 1 tablet by mouth every six hours as needed for headache cqvdaiflnq-klcwgbqrohans-mojf (FIORICET, ESGIC) 50-325-40 mg per tablet Take 1 tablet by mouth every 6 (six) hours as needed for headaches. 30 tablet 1 12/24/2022 12/07/2023 Discontinued (Therapy completed)ibuprofen 200 mg oral tablet (1 source)Nonsteroidal Anti-inflammatory Drug End: 00-13-6333xrva 4 tablets by mouth every eight hours as needed for pain ibuprofen (ADVIL,MOTRIN) 200 mg tablet Take 4 tablets (800 mg total) by mouth every 8 (eight) hoursas needed for pain. 12/07/2023 Discontinued (Therapy completed)lidocaine 0.05 mg/mg medicated patch (1 source)Antiarrhythmic, Amide Local AnestheticStart: 07-12-2022 End: 23-67-8146ydato 1 dose transdermal route every twelve hours in the morning lidocaine (LIDODERM) 5 % Place 1 patch on the skin in the morning. Remove & Discard patch within 12 hours or as directed by . 30 patch 07/12/2022 12/07/2023 Discontinued (Therapy completed)evkcqetm-uvih-JA-calcium &mins (THERAGRAN-M) 9 mg iron-400 mcg tablet (11 sources) End: 03-11-3976paghdaud-fjav-DO-vglopry &mins (THERAGRAN-M) 9 mg iron-400 mcg tablet Take 1 tablet by mouth inthe morning. 05/19/2024 Discontinued (Therapy completed)fddczrqr-xljq-MD-calcium &mins (THERAGRAN-M) 9 mg iron-400 mcg tablet Take 1 tablet by mouth inthe morning. Activenaloxone (NARCAN) 4 mg/actuation spray,non-aerosol nasal spray (8 sources)Start: 07-14-2024 End: 84-15-4811bjszpovq (NARCAN) 4 mg/actuation spray,non-aerosol nasal spray Indications: 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 07/14/2024 01/04/2025 Discontinued (Patient Stopped On Own)Start: 50-78-9613xzsuidcs (NARCAN) 4 mg/actuation spray,non-aerosol nasal spray Indications: 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 07/14/2024 Activenaloxone (NARCAN) 4 mg/actuation spray,non-aerosol nasal spray Administer 1 spray (4 mg total) intoalternating nostrils as needed for opioid reversal. ActiveQUEtiapine 100 mg oral tablet (1 source)Atypical AntipsychoticStart: 11-17-2022 End: 81-77-2611pxor 1 tablet by mouth once dailyQUEtiapine (SEROquel) 100 mg tablet Take 1 tablet (100 mg total) by mouth nightly. 11/17/2022 12/07/2023 Discontinued (Therapy completed)tamsulosin hydrochloride 0.4 mg oral capsule (11 sources)alpha-Adrenergic BlockerStart: 11-17-2022 End: 94-19-3840luir 1 capsule by mouth once dailytamsulosin (FLOMAX) 0.4 mg capsule Take 1 capsule (0.4 mg total) by mouth nightly. 11/17/2022 12/07/2023 Discontinued (Side effects)traMADol hydrochloride 50 mg oral tablet (17 sources)Opioid AgonistStart: 06-18-2024 End: 05-13-2143ogod 1 tablet by mouth twice daily as needed for painULTRAM 50 mg tablet Indications: Intractable chronic post-traumatic headache Take 1 tablet (50 mg total) by mouth 2 (two) times a day as needed for pain. 30 tablet 06/18/2024 08/22/2024 Discontinued (Discontinued by another clinician)Start: 19-47-1502nvwn 1 tablet by mouth twice daily as needed for painULTRAM 50 mg tablet Indications: Intractable chronic post-traumatic headache Take 1 tablet (50 mg total) by mouth 2 (two) times a day as needed for pain. 30 tablet 06/18/2024 ActiveStart: 05-09-2024 End: 71-98-0245pnlv 1 tablet by mouth twice daily as needed for paintraMADoL (ULTRAM) 50 mg tablet Indications: Localized osteoarthritis of lumbar spine Take 1 tablet (50 mg total) by mouth 2 (two) times a day as needed for pain (pain) for up to 15 days. 30 tablet 05/19/2024 06/03/2024 ActiveStart: 04-28-2024 End: 77-09-7769demd 1 tablet by mouth every six hours as neededULTRAM 50 mg tablet Take 1 tablet (50 mg total) by mouth every 6 (six) hours as needed. 04/28/2024 05/11/2024 Discontinued (Dose adjustment) Problems Active Problems Problem ClassificationProblemDateDocumented DateEpisodic/ChronicAbdominal pain (1 source)Abdominal pain; Translations: [Unspecified abdominal pain]07-15-2023 EpisodicAcquired foot deformities (7 sources)Hammer toe; Translations: [Other hammer toe(s) (acquired), left foot] Onset: 757150-59-5811GypsfikHziyhsbv foot deformities (10 sources)Acquired deformity of toe of left foot; Translations: [Acquired deformities of toe(s), unspecified,left foot]38-29-0019IogoupwbPwwlbo (1 source)Unspecified asthma, uncomplicated; Translations: [UNSPECIFIED ASTHMA UNCOMPLICATED]Onset: 28-37-7903BtwsrvyXmtooxr dysrhythmias (2 sources)Tachycardia, unspecified; Translations: [Tachycardia]Onset: 868422-91-4626CyqcwzckPofkoefp (3 sources)Bilateral cataracts; Translations: [Unspecified cataract]Onset: 749188-07-0751JiwkpbuWjhtsbcmgz associated with dizziness or vertigo (5 sources)Meniere's disease; Translations: [Meniere's disease, unspecified ear] Onset: 494264-68-1550UkrkgisGxopxlceyv associated with dizziness or vertigo (6 sources)Vertigo; Translations: [Dizziness and giddiness]87-57-0983Jkpmunuc Deficiency and other anemia (6 sources)Anemia; Translations: [Anemia, unspecified]05-40-7734Umugrggt Deficiency and other anemia (1 source)Anemia, unspecified; Translations: [Anemia following surgery]Onset: 20-30-5703ArliejpfGecaddcxc of lipid metabolism (20 sources)Hyperlipidemia, unspecified; Translations: [Hyperlipidemia]Onset: 305359-03-2896JyhememMelrzxkccngefk and diverticulitis (20 sources)Diverticulitis of colon with perforation; Translations: [Diverticulitis of large intestine with perforation and abscess without bleeding]Onset: 479383-21-7779AkpehzhGadvhiolp hypertension (20 sources)Essential hypertension; Translations: [Essential (primary) hypertension]Onset: 463909-68-4327RhioknpPwvfhcik (5 sources)Bilateral glaucoma; Translations: [Unspecified glaucoma]Onset: 900117-87-6046BboxkarPktvgqep; including migraine (14 sources)Intractable chronic headache following trauma; Translations: [Chronic post-traumatic headache, intractable]Onset: 148206-14-1018Apgyove Headache; including migraine (1 source)Headache; including migraineOnset: 63-45-5275Jifrhobfu (1 source)Nonalcoholic steatohepatitis (VIEIRA); Translations: [Nonalcoholic steatohepatitis (VIEIRA)]Onset: 04-61-8103TwsksasLzdjykckyii of prostate (1 source)Benign prostatic hyperplasia; Translations: [Benign prostatic hyperplasia with lower urinary tract symptoms]93-26-5471NmyzrahGzlrjkfogergz and screening for infectious disease (7 sources)Suspected carrier of methicillin resistant staphylococcus aureus; Translations: [Carrier or suspected carrier of Methicillin resistant Staphylococcus aureus]Onset: 371512-46-3595ImmxsdmiWpto effects of cerebrovascular disease (3 sources)Acquired ataxia; 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]Onset: 494411-92-9590TthzxaeQapo disorders (20 sources)Depressive disorder; Translations: [Depression]Onset: 04-29-2024 75-54-3379QoewyeuTykkoxa (3 sources)Pain in toe; Translations: [Tinea unguium]80-80-3903HcxdqdczZzrld circulatory disease (1 source)Orthostatic hypotension; Translations: [Orthostatic hypotension]Onset: 00-34-0869AtfbkeeeMtuan ear and sense organ disorders (1 source)Sensorineural hearing loss, bilateral; Translations: [Sensorineural hearing loss, bilateral]98-71-4360YruicthIcwwx ear and sense organ disorders (2 sources)Asymmetrical sensorineural hearing loss; Translations: [Sensorineural hearing loss, bilateral]15-79-4375TvfsqtdKmvzy ear and sense organ disorders (3 sources)Bilateral tinnitus; Translations: [Tinnitus, bilateral]05-25-2024 EpisodicOther nervous system disorders (1 source)Carpal tunnel syndrome of right wrist; Translations: [Carpal tunnel syndrome, right upper limb]47-95-7318CesqywqZyumg nervous system disorders (6 sources)Polyneuropathy; Translations: [Polyneuropathy, unspecified]05-12-2024 ChronicOther nervous system disorders (2 sources)Impairment of balance; Translations: [Other abnormalities of gait and mobility]47-67-6986FsmfwsyxKmkmq nervous system disorders (2 sources)Acute postoperative pain; Translations: [Other acute postprocedural pain]06-32-8179EhuqzikmIepae nervous system disorders (2 sources)Postoperative pain ; Translations: [Other acute postprocedural pain] 93-39-2713TcwuhcdnHzshj non-traumatic joint disorders (6 sources)Chronic pain of right upper limb; Translations: [Pain in right shoulder]07-47-4521CrabapquYwrztusf codes; unclassified (1 source)Alcoholism; Translations: [Alcohol use disorder]09-43-4836Dbxvljbd Residual codes; unclassified (5 sources)Tobacco user; Translations: [Tobacco use]87-09-8722CiyskqhwSnvjguiw codes; unclassified (1 source)History of cervical laminectomy; Translations: [Other specified postprocedural states]63-33-5391KnelelnjLfvghlca codes; unclassified (1 source)Other specified postprocedural states; Translations: [Other specified postprocedural states]Onset: 15-25-0988IsalogyzYbbyhivdgnd; intervertebral disc disorders; other back problems (20 sources)Degeneration of lumbosacral intervertebral disc; Translations: [Degeneration of intervertebral discof lumbosacral region with discogenic back pain and lower extremity pain]Onset: 732082-37-8175EmqvmeiYqtgbsxssjo; intervertebral disc disorders; other back problems (20 sources)Cervical radiculopathy; Translations: [Radiculopathy, cervical region]Onset: 491998-16-4257QwollvvtCrwqkxuxk-cotxseb disorders (20 sources)Nicotine dependence, cigarettes, uncomplicated; Translations: [Smoker]Onset: 743488-69-0831MibezttGldtrmp and intentional self-inflicted injury (1 source)Suicidal thoughts; Translations: [Suicidal ideations]07-15-2023 EpisodicUnclassified (2 sources)Chronic pain of right upper rxsd79-20-4841 Past or Other Problems Problem ClassificationProblemDateDocumented DateEpisodic/ChronicAcute bronchitis (1 source)Acute bronchitis, unspecified; Translations: [ACUTE BRONCHITIS UNSPECIFIED]Onset: 78-91-3309TlhdfymqUwqxt posthemorrhagic anemia (20 sources)Acute posthemorrhagic anemia; Translations: [Acute posthemorrhagic anemia]Onset: 976981-91-3276JcbbiiwcYukifkjdbwh and hemorrhagic disorders (20 sources)Purpuric rash; 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] Onset: 305603-35-1856WiyfkdxfSvztqjqx mellitus without complication (20 sources)Hyperglycemia; Translations: [Hyperglycemia, unspecified]Onset: 184481-52-4357BulfvsojH Codes: Fall (20 sources)Fall; Translations: [Unspecified fall, initial encounter]Onset: 365574-42-7671TzuwzzxnMfmrz and electrolyte disorders (20 sources)Hypokalemia; Translations: [Hypokalemia]Onset: EpisodicGenitourinary symptoms and ill-defined conditions (20 sources)Retention of urine; Translations: [Retention of urine, unspecified] Onset: 862639-04-3382VpatewvuAgzfvyck; including migraine (5 sources)Chronic daily headache; Translations: [Chronic daily headache]Onset: 898512-81-7846RvosajpnQlfvmxreyjky injury (20 sources)Unspecified intracranial injury 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 with patient surviving, initial encounter; Translations: [Traumatic brain injury]Onset: 967481-54-7713GujtuadiLvha disorders (20 sources)Mood disordersOnset: 05-19-2024 Resolved: 624446-30-9444Vghdaskorta deficiencies (9 sources)Deficiency of other specified B group vitamins; Translations: [Cobalamin deficiency]Onset: 385312-48-5524PjkndhlvVbqvd circulatory disease (1 source)Orthostatic hypotension; Translations: [Orthostatic hypotension] 32-77-9044UwdyiimnHtwbt connective tissue disease (14 sources)Other symptoms and signs involving the musculoskeletal system; Translations: [Other musculoskeletalsymptoms referable to limbs]Onset: 209284-93-7257VkctcpndSummm fractures (20 sources)Closed fracture of multiple left ribs; Translations: [Multiple fractures of ribs, left side, initial encounter for closed fracture]Onset: 323005-32-8714RgtdyfjhUmfbg gastrointestinal disorders (20 sources)Oropharyngeal dysphagia; Translations: [Dysphagia, oropharyngeal phase]Onset: 230417-88-1130EelgilekLdwgl lower respiratory disease (3 sources)Cough; Translations: [COUGH]Onset: 59-76-0210RuwislufIkayn nervous system disorders (1 source)Other acute postprocedural pain; Translations: [Acute post-operative pain]Onset: 50-96-7157SawpcirbKfett nutritional; endocrine; and metabolic disorders (20 sources)Overweight; Translations: [Overweight]Onset: 865458-24-8164 EpisodicOther upper respiratory infections (1 source)Acute upper respiratory infection, unspecified; Translations: [ACUTE UP RESPIRATORY INFECTION UNS]Onset: 78-68-0886OokjjyxwAhjaekak codes; unclassified (20 sources)History of closure of colostomy; Translations: [Other specified postprocedural states]Onset: 161376-80-0261OsvagnjqIqnnynyp codes; unclassified (1 source)Tobacco use; Translations: [Tobacco use]Onset: 93-62-3184Cbkymhuu Unclassified (4 sources)Weakness of right upper ssnjcsuxl08-72-7060Yubydtuogpnm (4 sources)Patient encounter moiiqz15-09-3864Lggizfcreagm (1 source)Preprocedural examination cbss06-18-9039 Results Test NameValueInterpretationReference RangeFacilitySurgical Pathology Reporton 16-66-2227Dvbprubi Pathology Report[address] [place] [address]- Surgical Pathology Report Collected Date/Time: 03/08/2025 09:30 [...] the skin is middleton-pink, wrinkled and unremarkable. Drug Abuse Worker portion is submitted in a total of three cassettes. Cassette 1 is the skin margins and skin and soft tissue, 2 and 3 are bone from raised joint area after decalcification. (DC) DC:AARIT Microscopic Description Microscopic examination performed unless gross only specified. Quality was accessed and acceptable. This report was transcribed using voice recognition technology and might contain unintended computerized semiconductor wafers saw operator errors.NormalOhiohealth Marion General HospitalComment on above:Performed By: #### [id number] #### [facility] [address] [place], [place] [address] [place], [place] [address]BOLDqc 25-50-0484TNJSHtuzjc Visit ([facility]) BEE HARRIS ([id number]) 1965 M Date Time Provider Department 02/21/25 3:00 PM JUS WISDOM [facility] During your visit today, we [...] myelopathy [M47.12] Order(s):XR CERV GENERAL 2V AP/LAT [[id number]] Order #: [id number] FUTURE Prescriptions as of 02/21/2025 - HYDROcodone-Acetaminophen [...] left side, initi (more content not included)... NormalUniversity Hospitals Conneaut Medical CenterXR CERVICAL 2V AP/LATon 22-75-5022RX CERVICAL 2V AP/LAT* * *Final Report* * [...] bony erosions. IMPRESSION: Postoperative and degenerative changes. Laborer Pole Crew: LIANA Transcribe Date/Time: Feb 21 2025 2:47P Dictated by : ANTON VIDALES MD This examination was interpreted and the report reviewed and electronically signed by: ANTON VIDALES MD on Feb 21 2025 2:48PM EST [id number] Hospitals Conneaut Medical CenterXR Cervical spine AP and Lateralon 49-73-8169DQMUFCVQNO: Postoperative and degenerative changes. Laborer Pole Crew: LIANA Transcribe Date/Time: Feb 21 2025 2:47P [...] are no bony erosions. DIVISION OF RADIOLOGYProvider, [facility] [place] - 02/21/2025 * * *Final Report* * [...] erosions. IMPRESSION IMPRESSION: Postoperative and degenerative changes. Laborer Pole Crew: PSCMakayla Transcribe Date/Time: Feb 21 2025 2:47P Dictated by : ANTON VIDALES MD This examination was interpreted and the report reviewed and electronically signed by: ANTON VIDALES MD on Feb 21 2025 2:48PM [facility] Hospitaliology Study observation (narrative)[facility] Cervical spine AP and LateralOrdered By: Ccf Provider on 77-03-5915Zkxqularc ClinicCNPNon 75-10-1799FDNXMjeyscpdt ([facility]) BEE HARRIS ([id number]) 1965 M Date Time Provider Department 02/13/25 JUS WISDOM [facility] During your visit today, we [...] 11/16/2024 Encounter Status:Closed by ELOISE EDGAR on 02/13/25NoFostoria City HospitalRefprisma health hillcrest hospitalradha [id number] Bee Harris 1965 M Date Provider Department Center 02/06/2025 Jimenez-FILIBERTO [facility] INT MED Comprehensiv Family History Problem Relation Age of Onset Diabetes Mother Lung cancer Mother Kidney failure Mother Heart disease Father Other Father Family Status - Relation Status Age at Mother Father Reason for Visit and Comments: Med Refill [[id number]][facility] HospitalXR Foot - left 3 Viewson 31-74-6862Avsobwl Result: 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 Please advise. [phone] Allergies As of Date: 01/24/2025 (No Known [...] 11/16/2024 Encounter Status:Closed by VÍCTOR PUENTE on 03/01/25NoFostoria City HospitalRefprisma health hillcrest hospitaln [id number] Bee Harris 1965 M Date Provider Department Center 01/13/2025 Jimenez-FILIBERTO [facility] INT MED Comprehensiv Family History Problem Relation Age of Onset Diabetes Mother Lung cancer Mother Kidney failure Mother Heart disease Father Other Father Family Status - Relation Status Age at Mother Father Reason for Visit and Comments: Med Refill [[id number]][facility] HospitalCNPNon 12-14-2024 CNPNTelephone (NIQ) AR HARRISLAS Oneal ([id number]) 1965 M Date Time Provider Department 12/14/24 JUS WISDOM During your visit today, we recorded the following information about you: Rukhsana Rosenthal 12/14/2024 9:37 AM Signed Call received for Jus Wisdom MD regarding Bee aHrris. Caller: self Patient Identified by Name and : Bee Harris 1965 Reason for Call: General - Pt needs to speak to Ernie Rankin about prescription. No other information provided. Is there any additional information the provider should know? No Last Office Visit: 11/30/2024 Next scheduled appointment: 01/10/2025 Best number to reach caller: [phone] Best time to reach caller: any Is it OK to leave a detailed voice message? Yes Devaughn Toussaint, JUANITA 12/14/2024 9:59 AM Signed Neuro SPINE CARE COORDINATION QUICK NOTE ASH 12-01-24 with Ernie Rankin USED [employer] SP C3-5 laminoplasty on 11-16-24 Pt reports [...] just prior to the surgery. PM placed [place] on hold. They will see him at [...] mouth. Encounter Status:Closed by ERNIE RANKIN on 12/14/24NoLima Memorial HospitalPREHENSIVE METABOLIC PANELon 57-09-5637Ikipqmt [Mass/Vol]4.6 g/dL Normal3.2-5.3PUniversity Hospitals St. [facility] Center Ambulatory PPGComment on above:Performed By: #### CMP #### [facility] ([facility]) [address] [place] [address] VIRALP [Catalytic activity/Vol]63 U/LCjvtuh15-183BfvCglxtc Hospital Ambulatory PPGComment on above:Performed By: #### CMP #### [facility] ([facility]) [address] [place] [address] VIRALT [Catalytic activity/Vol]17 U/LNormal<=40[facility] Ambulatory PPGComment on above:Performed By: #### CMP #### [facility] ([facility]) [address] [place] [address] VIRAnion gap [Moles/Vol]6 mmol/LNormal5-15[facility] Ambulatory PPGComment on above:Performed By: #### CMP #### [facility] ([facility]) [address] [place] [address] VIRAST [Catalytic activity/Vol]20 U/LNormal<=41ProCommunity Regional Medical Center Ambulatory PPGComment on above:Performed By: #### CMP #### [facility] ([facility]) [address] [place] [address] VIRBilirubin [Mass/Vol]0.3 mg/dLNormal0.3-1.2PUniversity Hospitals St. [facility] Center Ambulatory PPGComment on above:Performed By: #### CMP #### [facility] ([facility]) [address] [place] [address] VIRCalcium [Mass/Vol]9.6 mg/dLNormal8.5-10.5PUniversity Hospitals St. [facility] Center Ambulatory PPGComment on above:Performed By: #### CMP #### [facility] ([facility]) [address] [place] [address] VIRChloride [Moles/Vol]111 mmol/SOizh00-553YqpUxeegl Hospital Ambulatory PPGComment on above:Performed By: #### CMP #### [facility] ([facility]) [address] [place] [address] VIRCO2 [Moles/Vol]25 mmol/QBymshl91-28LdpUsknfl Hospital Ambulatory PPGComment on above:Performed By: #### CMP #### [facility] ([facility]) [address] [place] [address] VIRCreatinine [Mass/Vol]0.92 mg/dLNormal0.60-1.30ProCommunity Regional Medical Center Ambulatory PPGComment on above:Result Comment: METHOD TRACEABLE TO IDNM STANDARDPerformed By: #### CMP #### [facility] ([facility]) [address] [place] [address] VIREGFR (CKD-EPI) NON-RACE DEPENDENT>^90Normal>=60[facility] Ambulatory PPGComment on above:Result Comment: Reported eGFR is based on the CKD-EPI 2020 equation that does not use a race coefficient.Performed By: #### CMP #### [facility] ([facility]) [address] [place] [address] VIRGlucose [Mass/Vol]99 mg/fDIlpvxh03-05UmiKyvrum Hospital Ambulatory PPGComment on above:Performed By: #### CMP #### [facility] ([facility]) [address] [place] [address] VIRPotassium [Moles/Vol]4.2 mmol/LNormal3.5-5.0ProCommunity Regional Medical Center Ambulatory PPGComment on above:Performed By: #### CMP #### [facility] ([facility]) [address] [place] [address] VIRProtein [Mass/Vol]7.0 g/dLNormal6.0-8.0[facility] Ambulatory PPGComment on above:Performed By: #### CMP #### [facility] ([facility]) [address] [place] [address] VIRSodium [Moles/Vol]142 mmol/BPecion644-800CedJskrkx Hospital Ambulatory PPGComment on above:Performed By: #### CMP #### [facility] ([facility]) [address] [place] [address] VIRUrea nitrogen [Mass/Vol]23 mg/dLNormal5-23[facility] Ambulatory PPGComment on above:Performed By: #### CMP #### [facility] ([facility]) [address] [place] [address] VIRComprehensive metabolic panelon 92-38-0592Ugbbgmz [Mass/Vol] 4.6 g/dL3.2 - 5.3 g/dLProMedica Health SystemALP [Catalytic activity/Vol]63 U/L 39 - 130 U/LProMedica Health SystemALT No additional P-5'-P [Catalytic activity/Vol]17 U/LNINF - 40 U/LProMedica Health SystemAnion gap [Moles/Vol]6 mmol/L5 - 15 mmol/LProMedica Health SystemAST [Catalytic activity/Vol]20 U/LNINF - 41 U/LProMedica Health SystemBilirubin [Mass/Vol]0.3 mg/dL0.3 - 1.2 mg/dL [facility] SystemCalcium [Mass/Vol]9.6 mg/dL8.5 - 10.5 mg/dLProMarshall Medical Center South Health SystemChloride [Moles/Vol]111 mmol/LHigh98 - 109 mmol/[facility] Health SystemCO2 [Moles/Vol]25 mmol/L22 - 32 mmol/[facility] Health SystemCreatinine [Mass/Vol]0.92 mg/dL0.60 - 1.30 mg/dLFirelands Regional Medical Center SystemComment on above: METHOD TRACEABLE TO IDNM STANDARDEGFR Non-Race Dependent- [facility] SystemComment on above:Reported eGFR is based on the CKD-EPI 2020 equation that does not use a race coefficient. Glucose [Mass/Vol]99 mg/dL65 - 99 mg/dLFirelands Regional Medical Center SystemPotassium [Moles/Vol]4.2 mmol/L3.5 - 5.0 mmol/LPrDenver Springs Health SystemProtein [Mass/Vol]7 g/dL6.0 - 8.0 g/dLProOhiohealth Dublin Methodist Hospital SystemSodium [Moles/Vol]142 mmol/L134 - 146 mmol/[facility] SystemUrea nitrogen [Mass/Vol]23 mg/dL5 - 23 mg/dL [facility] HospitalLIPID PROFILEon 77-39-6939Hsrtlymixnh [Mass/Vol]226 mg/dL Gqwt418-089FbaMosdbi Hospital Ambulatory PPGComment on above:Performed By: #### LIPR #### [facility] ([facility]) [address] [place] [address] VIRCholesterol in HDL [Mass/Vol]66 mg/dLNormal>39[facility] Ambulatory PPGComment on above:Result Comment: HDL <40 mg/dL - High Risk HDL > or = 40mg/dL- Desirable HDL >60 mg/dL - Negative RiskPerformed By: #### LIPR #### [facility] ([facility]) [address] [place] [address] VIRCholesterol in LDL [Mass/Vol]127 mg/dLNormal<130[facility] Ambulatory PPGComment on above:Result Comment: LDL <100 mg/dL - Desirable LDL >160 mg/dL - High RiskPerformed By: #### LIPR #### [facility] ([facility]) [address] [place] [address] VIRCHOLESTEROL:HDL3.7Ncrojr9.0-5.0[facility] Ambulatory PPGComment on above:Performed By: #### LIPR #### [facility] ([facility]) [address] [place] [address] VIRTriglyceride [Mass/Vol]165 mg/fSMhfm38-991AtmSsoxcq Hospital Ambulatory PPGComment on above:Performed By: #### LIPR #### [facility] ([facility]) [address] [place] [address] VIRVERY LOW ZOMENMLCWVO76 mg/dLHigh0-30[facility] Ambulatory PPGComment on above:Performed By: #### LIPR #### [facility] ([facility]) [address] [place] [address] VIRLipid profileon 49-53-1926Iqkxhjymppe [Mass/Vol]226 mg/dL Twlt479 - 200 mg/dLFort Hamilton HospitalCholesterol in HDL [Mass/Vol]66 mg/dL 39 - PINF mg/dLFort Hamilton HospitalComment on above:HDL <40 mg/dL - High Risk HDL > or = 40mg/dL- Desirable HDL >60 mg/dL - Negative Risk Cholesterol in HDL [Mass/Vol]3.4 mg/dL1.0 - 5.0[facility] Cholesterol in LDL [Mass/Vol]127 mg/dLNINF - 130 mg/dLFort Hamilton Hospital Comment on above:LDL <100 mg/dL - Desirable LDL >160 mg/dL - High Risk Cholesterol in VLDL [Mass/Vol]33 mg/dLHigh0 - 30 mg/dLFort Hamilton Hospital Triglyceride [Mass/Vol]165 mg/fNVnin16 - 150 mg/dLFort Hamilton HospitalNo Panel Informationon 61-39-4869Vntwuelfbihtoo and review of laboratory results AbnormalMount Nittany Medical CenterVITAMIN B12on 12-13-2024 Cobalamin (Vitamin B12) [Mass/Vol]1213 pg/pRCyek080-724KtuHbixrx Hospital Ambulatory PPGComment on above:Performed By: #### B12 #### [facility] ([facility]) [address] [place] [address] VIRVitamin B12on 32-29-1446Cmlujrapk (Vitamin B12) [Mass/Vol] 1213 pg/cMHhsd882 - 914 pg/mLFirelands Regional Medical Center SystemInterpretation and review of laboratory resultsAbnormalFirelands Regional Medical Center SystemProOhiohealth Dublin Methodist Hospital SystemCNOVon 65-74-9550ZJYBIlnsok Visit (SPNSMN) BEE HARRIS ([id number]) 1965 M Date Time Provider Department 12/01/24 2:15 PM ERNIE RANKIN [facility] During your visit today, we recorded the following information about you: Temperature Pulse Respiration Blood pressure 97.6 degrees 67/minute 18/minute 119/73 Weight Height 74.8 kg 1.778 m Ernie Rankin APRN.LUMP RECEIVER 12/01/2024 1:09 PM Signed 2 week post [...] the great work! Contact the office via Scriptickhart or phone call with questions or concerns. [phone] Ernie Rankin APRN.LUMP RECEIVER 12/02/2024 2:16 PM Signed SPINE SURGERY FOLLOW [...] health care or rehab. He now has [facility] providing him assistance. Reports generalized neck pain and stiffness. Seeing some improvement in altered sensation. Using robaxin, tylenol, and lyrica for pain relief. Continues using the narcotics as needed. Incision is healing well without any complications- he was worried as his bandage was coming off. His come health post acute care nurse practitioner was able to replace and reinforce. Denies [...] Mood pleasant. Benign affect. Spine Exam Incision: Sibley removed and replaced with steri-strips. No significant erythema, edema, and no drainage. Upper Extremity Motor UE BICEPS TRICEPS DELTS Wrist Ext Wrist Flex Registered Dietician HI R 3 5 3 5 5 [...] prescription, he will return to his pain clinical manager home care for continued narcotic use. He will continue [...] He will follow-up w (more content not included)...NormalParkwood HospitalPNon 42-12-2127LBQBQfjmvogii (SPDEVYNMN) KIMBERLYBEE SAMANIEGO ([id number]) 1965 M Date Time Provider Department 11/22/24 SHU LANDERS During your visit today, we recorded the following information about you: Shu Landers LSW 11/22/2024 3:14 PM Signed sent HC referrals to [address]- awaiting responses. Due to pt insurance type identifying HC agency willing to accept pt may take extended time Shu Landers LSW 11/24/2024 1:03 PM Addendum Jayna HC agency declined pt for HC services CM send referral sent to [facility] by [facility]- awaiting response [id number]- expressed they are unable to accept pt due to being at max capacity for pt insurance for at least 1.5-2 weeks and if services are still desired then a new referral would need to be placed. CM expressed understanding and thanks Shu Landers LSW 11/28/2024 9:22 AM Signed [facility] by [facility] has confirmed they are able [...] 11/16/2024 Encounter Status:Closed by SHU LANDERS on 11/22/24NoFostoria City HospitalCNPNTelephone (NIQ) BEE HARRIS ([id number]) 1965 M Date Time Provider Department 11/22/24 [...] appointment: 01/10/2025 Best number to reach caller: [phone] Best time to reach caller: any Is [...] ambulation . Minimal support at home. Speed Global ManagerErendira Jean 11/29/2024 12:38 PM Signed Cheyanne with [facility] is calling pertaining to below message, Home Care Cheyanne states they are starting home care today Cheyanne call back [phone] Devaughn Vazquez, JUANITA 11/29/2024 1:05 PM Signed [...] [1477] Primary Visit Diagnosis:Cervical vertebral fusion [M43.22] Order([facility] [[id number]] Order #: [id number]: 1 Prescriptions as of 11/29/2024 - acetaminophen [...] 11/16/2024 Encounter Status:Closed by ERNIE RANKIN on 11/22/24NormalCMount Carmel Health System metabolic 2000 panelon 05-62-8599Ksqrl gap [Moles/Vol]11 mmol/L Normal8-15Lutheran HospitalComment on above:Order Comment: Specimen Type: BLOOD SPECIMENOrdering Facility: [facility] Address:[address] [place], [place] [address]Performed By: #### 46357-5 ####[facility] LABORATORYCLIA [id number] [address] [place] [address] [place] OF AMERICACalcium [Mass/Vol]8.9 mg/dLNormal8.5-10.2Luthdignity health st. [facility] HospitalComment on above:Order Comment: Specimen Type: BLOOD SPECIMENOrdering Facility: [facility] Address:[address] [place], [place] [address]Performed By: #### 52754- 2 ####[facility] LABORATORYCLIA [id number] [address] [place] [address] [place] AMERICAChloride [Moles/Vol]106 mmol/TSyomfj24-720Vqwjdrou HospitalComment on above:Order Comment: Specimen Type: BLOOD SPECIMENOrdering Facility: [facility] Address:[address] [place], [place] [address]Performed By: #### 27002-7 ####[facility] LABORATORYCLIA [id number] [place] [id number] [place] AMERICACO2 [Moles/Vol]23 mmol/L Ppuzhq63-76Wonbhmke HospitalComment on above:Order Comment: Specimen Type: BLOOD SPECIMENOrdering Facility: [facility] Address:[address] [place], [place] [address]Performed By: #### 65269-4 ####[facility] LABORATORYCLIA [id number] [place] [id number] [place] Creatinine [Mass/Vol]0.59 mg/dLLow0.73-1.22Lutacmc healthcare system glenbeigh HospitalComment on above: Order Comment: Specimen Type: BLOOD SPECIMENOrdering Facility: [facility] Address:[address] [place], [place] [address]Performed By: #### 91602- 2 ####[facility] LABORATORYCLIA [id number] [place] [id number] [place] AMERICACreatinine and Glomerular filtration rate.predicted panel (S/P/Bld)112 mL/min/1.73m???Normal>=60Lutacmc healthcare system glenbeigh HospitalComment on above: Order Comment: Specimen Type: BLOOD SPECIMENOrdering Facility: [facility] Address:[address] [place], [place] [address]Jqkuzj Comment: Estimated Glomerular Filtration Rate (eGFR) is [...] not accurately reflect actual GFR.Performed By: #### 96517-1 ####[facility] LABORATORYCLIA [id number] [place] [id number] [place] AMERICAGlucose [Mass/Vol]84 mg/nQJaveeq05-77Ktssmyzn Hospital Comment on above:Order Comment: Specimen Type: BLOOD SPECIMENOrdering Facility: [facility] Address:[address] [place] [id number] Comment: The [place] [employer] Association (ADA) provides guidance for cutoff [...] Standards of Medical Care in Diabetes 2016, [place] [employer]. Diabetes Care. 2016.39(Suppl 1).Performed By: #### 61454-4 ####B[facility] LABORATORYCLIA [id number] [place] [id number] [place] AMERICAPotassium [Moles/Vol]4.4 mmol/LNormal3.7-5.1Luthdignity health st[address] [facility] HospitalComment on above:Order Comment: Specimen Type: BLOOD SPECIMENOrdering Facility: [facility] Address:[address] [place] [id number] By: #### 88493-0 ####B[facility] LABORATORYCLIA [id number] [address] [place] [address] [place] AMERICASodium [Moles/Vol]140 mmol/RPiqtht555-238Rwarktuy HospitalComment on above:Order Comment: Specimen Type: BLOOD SPECIMENOrdering Facility: [facility] Address:[address] [place], [place] [address]Performed By: #### 67901-1 ####B[facility] LABORATORYCLIA [id number] [address] [place], [place] [address] [place] AMERICAUrea nitrogen [Mass/Vol]16 mg/dLNormal9-24Lutheran HospitalComment on above:Order Comment: Specimen Type: BLOOD SPECIMENOrdering Facility: [facility] Address:[address] [place], [place] [address]Performed By: #### 14118-3 ####[facility] LABORATORYCLIA [id number] [place] [id number] [place] AMERICACBC panel Auto (Bld)on 53-70-6507Jwtafbgbdkd distribution width (RBC) [Ratio]14.6 %Jchnie90.5-15.0Lutheran HospitalComment on above:Order Comment: Specimen Type: BLOOD SPECIMENOrdering Facility: [facility] Address:[address] [place], [place] [address]Performed By: #### 53813-0 ####B[facility] LABORATORYCLIA [id number] [place] [address] [place] OF AMERICAHematocrit (Bld) [Volume fraction]39.8 %Normal 39.0-51.0Lutheran HospitalComment on above:Order Comment: Specimen Type: BLOOD SPECIMENOrdering Facility: [facility] Address:[address] [place], [place] [address]Performed By: #### 57696-6 ####[facility] LABORATORYCLIA [id number] [place] [id number] [place] Hemoglobin (Bld) [Mass/Vol]13.1 g/qGLmwiur85.0-17.0Lutheran HospitalComment on above:Order Comment: Specimen Type: BLOOD SPECIMENOrdering Facility: [facility] Address:[address] [place], [place] [address]Performed By: #### 51441-9 ####B[facility] LABORATORYCLIA [id number] [place] [id number] [facility] (RBC) [Entitic mass]32.9 fwTzgezo30.0-34.0 Yazidi HospitalComment on above:Order Comment: Specimen Type: BLOOD SPECIMENOrdering Facility: [facility] Address:[address] [place], [place] [address]Performed By: #### 74706-9 ####[facility] LABORATORYCLIA [id number] [address] (RBC) [Mass/Vol]32.9 g/nXRgdspw56.5-36.0Lutheran HospitalComment on above:Order Comment: Specimen Type: BLOOD SPECIMENOrdering Facility: [facility] Address:[address] [place], [place] [address]Performed By: #### 33449- 2 ####B[facility]TISM LABORATORYCLIA [id number] [address] (RBC) [Entitic vol]100.0 xBVvosxj95.0-100.0Lutheran HospitalComment on above:Order Comment: Specimen Type: BLOOD SPECIMENOrdering Facility: [facility] Address:[address] [place], [place] [address]Performed By: #### 30804-1 ####[facility] LABORATORYCLIA [id number] [address] RBC (Bld) [#/Vol]10*3/uLNormal<0.01Lutheran HospitalComment on above:Order Comment: Specimen Type: BLOOD SPECIMENOrdering Facility: [facility] Address:[address] [place], [place] [address]Performed By: #### 56549-3 ####B[facility]TISM LABORATORYCLIA [id number] [place] [id number] [facility] MEDICAL CENTERPlatelet mean volume (Bld) [Entitic vol]10.5 fLNormal 9.0-12.7Lutheran HospitalComment on above:Order Comment: Specimen Type: BLOOD SPECIMENOrdering Facility: [facility] Address:[address] [place], [place] [address]Performed By: #### 69384-4 ####BAPTISM LABORATORYCLIA [id number] [address] [place] [address] [place] Platelets (Bld) [#/Vol]188 10*3/eILeavwm430-484Jpjfrfpv HospitalComment on above:Order Comment: Specimen Type: BLOOD SPECIMENOrdering Facility: [facility] Address:[address] [place], [place] [address]Performed By: #### 35809-4 ####BAPTISM LABORATORYCLIA [id number] [address] [place], [place] [address]RBC (Bld) [#/Vol]3.98 10*6/uLLow4.20-6.00Lutdignity health east valley [facility] - gilbertan HospitalComment on above:Order Comment: Specimen Type: BLOOD SPECIMENOrdering Facility: [facility] Address:[address] [place], [place] [address]Performed By: #### 36379-5 ####BAPTISM LABORATORYCLIA [id number] [address]ETWBC (Bld) [#/Vol]8.87 10*3/uLNormal3.70-11.00Lutdignity health east valley rehabilitation hospital - gilbertan HospitalComment on above:Order Comment: Specimen Type: BLOOD SPECIMENOrdering Facility: [facility] Address:[address] [place], [place] [address]Performed By: #### 99531-8 ####BAPTISM LABORATORYCLIA [id number] [place] [id number] [facility] CENTERCNDSon 24-39-8704MUPSRIN ID: [id number] Author: JUS WISDOM MD Service: Orthopaedic Surgery [...] The patient was electively admitted to the [facility] on 11/16/2024. Surgery was scheduled and on [...] Provider Department Center 12/01/2024 2:15 PM Ernie Rnakin APRN.LUMP RECEIVER SPNSMN Main - S Bld 01/10/2025 1:15 PM XR Mayela CLARK 1 XRHT [facility] 01/10/2025 2:00 PM Jus Wisdom MD [facility] Bee Harris will require more than a 7 day supply of 30 morphine equivalent doses per day (MEDD) of narcotic prescription due to their major orthopaedic surgery Lopez Singh MD PGY-3 [facility]2024 [facility]: [id number] Author: IRMA MARCH RT(R) Service: Radiology Author Type: Technologist Type: [facility] Filed: 11/18/2024 11:40 Note Text: [...] PATIENT PRESENTS WITH AN IMPLANTABLE OR ATTACHED PRIVATE ADVISOR: No RADIOLOGY DEPARTMENT: General X-ray: Exam(s) Completed: Spine X-Ray(s): Cervical AP / LAT PERIPHERAL IV DATA: Not applicable SIGNED BY: RT Drummond Cela(R) November 18, 2024 11:40 AMNormalLutheran HospitalBasic metabolic 2000 [facility] heart hospitalon 21-74-8039Wuqyx gap [Moles/Vol]4 mmol/LLow8-15Lutacmc healthcare system gl[facility]igh HospitalComment on above: Order Comment: Specimen Type: BLOOD SPECIMENOrdering Facility: [facility] Address:[address] [place], [place] [address]Performed By: #### 51830- 2 ####BAPTISM LABORATORYCLIA [id number] [place] [id number] [place] AMERICACalcium [Mass/Vol]8.8 mg/dLNormal8.5-10.2Lutheran HospitalComment on above:Order Comment: Specimen Type: BLOOD SPECIMENOrdering Facility: [facility] Address:[address] [place], [place] [address]Performed By: #### 48110-3 ####BAPTISM LABORATORYCLIA [id number] [place] [address] [place] AMERICAChloride [Moles/Vol]114 mmol/WZjvx86-694Kvtkbzuq HospitalComment on above:Order Comment: Specimen Type: BLOOD SPECIMENOrdering Facility: [facility] Address:[address] [place], [place] [address]Performed By: #### 21842-2 ####BAPTISM LABORATORYCLIA [id number] [place] [address] [place] AMERICACO2 [Moles/Vol]22 mmol/JXftyym09-13Gziaxrpe HospitalComment on above:Order Comment: Specimen Type: BLOOD SPECIMENOrdering Facility: [facility] Address:[address] [place], [place] [address]Performed By: #### 18442-2 ####BAPTISM LABORATORYCLIA [id number] [place] [address] [place] AMERICACreatinine [Mass/Vol]0.67 mg/dLLow0.73-1.22Lutacmc healthcare [facility] HospitalComment on above:Order Comment: Specimen Type: BLOOD SPECIMENOrdering Facility: [facility] Address:[address] [place], [place] [address]Performed By: #### 93723-0 ####BAPTISM LABORATORYCLIA [id number] [place] [address] [place] AMERICACreatinine and Glomerular filtration rate.predicted panel (S/P/Bld)108 mL/min/1.73m???Normal>=60[facility] HospitalComment on above:Order Comment: Specimen Type: BLOOD SPECIMENOrdering Facility: [facility] Address:[address] [place], [place] [address]Result Comment: Estimated Glomerular Filtration Rate (eGFR) is [...] accurately reflect actual GFR. Performed By: #### 72674-1 ####BAPTISM LABORATORYCLIA [id number] [place] [address] [place] AMERICAGlucose [Mass/Vol]84 mg/dL Lederq74-33Zgnhbzii HospitalComment on above:Order Comment: Specimen Type: BLOOD SPECIMENOrdering Facility: [facility] Address:[address] [place], [place] [address]Result Comment: The [place] Diabetes Association (ADA) provides guidance for cutoff [...] Standards of Medical Care in Diabetes 2016, [place] [employer] Association. Diabetes Care. 2016.39(Suppl 1).Performed By: #### 34844-4 ####BAPTISM LABORATORYCLIA [id number] [place] [address] [place] AMERICAPotassium [Moles/Vol]4.1 mmol/LNormal3.7-5.1Luthdignity health [facility] HospitalComment on above:Order Comment: Specimen Type: BLOOD SPECIMENOrdering Facility: [facility] Address:[address] [place], [place] [address]Performed By: #### 74842-3 ####BAPTISM LABORATORYCLIA [id number] [place] [address] [place] AMERICASodium [Moles/Vol]140 mmol/XJvecra644-629Tgrrnyjw HospitalComment on above:Order Comment: Specimen Type: BLOOD SPECIMENOrdering Facility: [facility] Address:[address] [place], [place] [address]Performed By: #### 86690-1 ####BAPTISM LABORATORYCLIA [id number] [place] [address] [place] AMERICAUrea nitrogen [Mass/Vol]17 mg/dLNormal9-24Lutheran HospitalComment on above:Order Comment: Specimen Type: BLOOD SPECIMENOrdering Facility: [facility] Address:[address] [place], [place] [address]Performed By: #### 19190-5 ####BAPTISM LABORATORYCLIA [id number] [address] [place], [place] [address] [place] AMERICACBC panel Auto (Bld)on 80-95-2917Frcrdhqgvmf distribution width (RBC) [Ratio]15.0 %Odltuj85.5-15.0L[facility]acmc [facility] HospitalComment on above:Order Comment: Specimen Type: BLOOD SPECIMENOrdering Facility: [facility] Address:[address] [place], [place] [address]Performed By: #### 11053-3 ####BAPTISM LABORATORYCLIA [id number] [place] [address] [place] [facility] CITY HOSPITALHematocrit (Bld) [Volume fraction]38.4 %Low 39.0-51.0L[facility] HospitalComment on above:Order Comment: Specimen Type: BLOOD SPECIMENOrdering Facility: [facility] Address:[address] [place], [place] [address]Performed By: #### 51981-4 ####BAPTISM LABORATORYCLIA [id number] [place] [address] [place] Hemoglobin (Bld) [Mass/Vol]12.5 g/dLLow13.0-17.0L[facility] HospitalComment on above:Order Comment: Specimen Type: BLOOD SPECIMENOrdering Facility: [facility] Address:[address] [place], [place] [address]Performed By: #### 18323-7 ####BAPTISM LABORATORYCLIA [id number] [place] [address] [place] AMERICAMCH (RBC) [Entitic mass]33.0 pwRitiys12.0-34.0 Yazidi HospitalComment on above:Order Comment: Specimen Type: BLOOD SPECIMENOrdering Facility: [facility] Address:[address] [place], [place] [address]Performed By: #### 54804-8 ####BAPTISM LABORATORYCLIA [id number] [place] [address] [facility]ITALHC (RBC) [Mass/Vol]32.6 g/iIQroyjy91.5-36.0Lutheran HospitalComment on above:Order Comment: Specimen Type: BLOOD SPECIMENOrdering Facility: [facility] Address:[address] [place], [place] [address]Performed By: #### 45877- 2 ####BAPTISM LABORATORYCLIA [id number] [address] [place], [place] [address] [facility] CENTERMCV (RBC) [Entitic vol]101.3 uCUjtq33.0-100.0Lutheran HospitalComment on above:Order Comment: Specimen Type: BLOOD SPECIMENOrdering Facility: [facility] Address:[address] [place], [place] [address]Performed By: #### 57035-9 ####BAPTISM LABORATORYCLIA [id number] [address] AMERICANucleated RBC (Bld) [#/Vol]10*3/uLNormal<0.01Lutheran HospitalComment on above:Order Comment: Specimen Type: BLOOD SPECIMENOrdering Facility: [facility] Address:[address] [place], [place] [address]Performed By: #### 73252-0 ####BAPTISM LABORATORYCLIA [id number] [place] [address] [facility]ICAL CENTERPlatelet mean volume (Bld) [Entitic vol]10.1 fLNormal 9.0-12.7Lutheran HospitalComment on above:Order Comment: Specimen Type: BLOOD SPECIMENOrdering Facility: [facility] Address:[address] [place], [place] [address]Performed By: #### 90823-0 ####BAPTISM LABORATORYCLIA [id number] [place] [address] [place] Platelets (Bld) [#/Vol]163 10*3/jBEhaard558-206Pstodewt HospitalComment on above:Order Comment: Specimen Type: BLOOD SPECIMENOrdering Facility: [facility] Address:[address] [place], [place] [address]Performed By: #### 52784-8 ####BAPTISM LABORATORYCLIA [id number] [place] [address] [facility] CENTERRBC (Bld) [#/Vol]3.79 10*6/uLLow4.20-6.00Yazidi HospitalComment on above:Order Comment: Specimen Type: BLOOD SPECIMENOrdering Facility: [facility] Address:[address] [place], [place] [address]Performed By: #### 20493-2 ####BAPTISM LABORATORYCLIA [id number] [address]ETWBC (Bld) [#/Vol]8.73 10*3/uLNormal3.70-11.00Yazidi HospitalComment on above:Order Comment: Specimen Type: BLOOD SPECIMENOrdering Facility: [facility] Address:[address] [place], [place] [address]Performed By: #### 03557-2 ####BAPTISM LABORATORYCLIA [id number] [place] [address] [facility] CENTERXR CERVICAL 2V AP/LATon 57-94-0560MG CERVICAL 2V AP/LAT* * *Final Report* * [...] Narrowing C6-7 disc space. IMPRESSION: Postsurgical findings Laborer Pole Crew: LIANA Transcribe Date/Time: Nov 18 2024 3:02P Dictated by : ADILSON JONES MD This examination was interpreted and the report reviewed and electronically signed by: ADILSON JONES MD on Nov 18 2024 3:04PM EST [id number] HospitalBasic metabolic 2000 panelon 45-94-7254Gfhjy gap [Moles/Vol]11 mmol/LNormal8-15Lutheran HospitalComment on above:Order Comment: Specimen Type: BLOOD SPECIMENOrdering Facility: [facility] Address:[address] [place], [place] [address]Performed By: #### 38332-1 ####BAPTISM LABORATORYCLIA [id number] [place] [address] [place] AMERICACalcium [Mass/Vol]8.7 mg/dLNormal8.5-10.2Lutheran HospitalComment on above:Order Comment: Specimen Type: BLOOD SPECIMENOrdering Facility: [facility] Address:[address] [place], [place] [address]Performed By: #### 49589-6 ####BAPTISM LABORATORYCLIA [id number] [place] [address] [place] AMERICAChloride [Moles/Vol]112 mmol/WTfls15-885Mcfgnkqm HospitalComment on above:Order Comment: Specimen Type: BLOOD SPECIMENOrdering Facility: [facility] Address:[address] [place], [place] [address]Performed By: #### 19254-2 ####BAPTISM LABORATORYCLIA [id number] [place] [address] [place] AMERICACO2 [Moles/Vol]19 mmol/EGkl48-32Bdpdnxsd HospitalComment on above:Order Comment: Specimen Type: BLOOD SPECIMENOrdering Facility: [facility] Address:[address] [place], [place] [address]Performed By: #### 14082-3 ####BAPTISM LABORATORYCLIA [id number] [address] [place], [place] [address] [place] AMERICACreatinine [Mass/Vol]0.69 mg/dLLow0.73-1.22Fairfield Medical CenterComment on above:Order Comment: Specimen Type: BLOOD SPECIMENOrdering Facility: [facility] Address:[facility] [place] [address]Performed By: #### 83542-5 ####BAPTISM LABORATORYCLIA [id number] [place] [address] [place] AMERICACreatinine and Glomerular filtration rate.predicted panel (S/P/Bld)107 mL/min/1.73m???Normal>=60[facility]field Medical CenterComment on above:Order Comment: Specimen Type: BLOOD SPECIMENOrdering Facility: [facility] Address:[address] [place], [place] [address]Result Comment: Estimated Glomerular Filtration Rate (eGFR) is [...] accurately reflect actual GFR. Performed By: #### 92268-3 ####BAPTISM LABORATORYCLIA [id number] [place] [address] [place] AMERICAGlucose [Mass/Vol]81 mg/dL Afeyup79-48Fcteifam HospitalComment on above:Order Comment: Specimen Type: BLOOD SPECIMENOrdering Facility: [facility] Address:[address] [place], [place] [address]Result Comment: The [place] Diabetes Association (ADA) provides guidance for cutoff [...] Standards of Medical Care in Diabetes 2016, [place] [employer] Association. Diabetes Care. 2016.39(Suppl 1).Performed By: #### 78293-4 ####BAPTISM LABORATORYCLIA [id number] [address] [place] [address] [place] AMERICAPotassium [Moles/Vol]4.4 mmol/LNormal3.7-5.1Lutheran HospitalComment on above:Order Comment: Specimen Type: BLOOD SPECIMENOrdering Facility: [facility] Address:[address] [place], [place] [address]Performed By: #### 30160-3 ####BAPTISM LABORATORYCLIA [id number] [place] [address] [place] AMERICASodium [Moles/Vol]142 mmol/ELyahkk511-285Tventexq HospitalComment on above:Order Comment: Specimen Type: BLOOD SPECIMENOrdering Facility: [facility] Address:[address] [place], [place] [address]Performed By: #### 60249-4 ####BAPTISM LABORATORYCLIA [id number] [place] [address] [place] AMERICAUrea nitrogen [Mass/Vol]20 mg/dLNormal9-24[facility] HospitalComment on above:Order Comment: Specimen Type: BLOOD SPECIMENOrdering Facility: [facility] Address:[address] [place], [place] [address]Performed By: #### 13038-6 ####BAPTISM LABORATORYCLIA [id number] [place] [address] [place] AMERICACASE MGT INIT ASSESon 14-97-8665DQTJ MGT INIT [facility]IVONIA ID: [id number] Author: VÍCTOR CASTILLO RN Service: Care Management [...] Post-Acute Care Goal(s): to have better balance Nichols of Choice Explained: Nichols of Choice Given: No Reason Not Given: [...] DATE: November 17, 2024 TIME: 2:48 PMNormalLutheran [facility] panel Auto (Bld)on 58-34-0686Bhytetjdrtr distribution width (RBC) [Ratio]14.9 %Mlhzyi85.5-15.0Lutheran HospitalComment on above:Order Comment: Specimen Type: BLOOD SPECIMENOrdering Facility: [facility] Address:[address] [place] [address] Performed By: #### 08182-7 ####BAPTISM LABORATORYCLIA [id number] [place] [address] [facility] HEALTH CENTERHematocrit (Bld) [Volume fraction]40.6 %Zdxell33.0-51.0Lutacmc [facility]igh HospitalComment on above:Order Comment: Specimen Type: BLOOD SPECIMENOrdering Facility: [facility] Address:[address] [place], [place] [address]Performed By: #### 51430-7 ####BAPTISM LABORATORYCLIA [id number] 02 CASEY STREETHemoglobin (Bld) [Mass/Vol]13.3 g/hPGgulci69.0-17.0 Yazidi HospitalComment on above:Order Comment: Specimen Type: BLOOD SPECIMENOrdering Facility: [facility] Address:[address] [place], [place] [address]Performed By: #### 31088-2 ####BAPTISM LABORATORYCLIA [id number] [place] [address] [facility] (RBC) [Entitic mass]33.0 czYmoksr81.0-34.0Luther HospitalComment on above: Order Comment: Specimen Type: BLOOD SPECIMENOrdering Facility: [facility] Address:[address] [place], [place] [address]Performed By: #### 51736- 2 ####BAPTISM LABORATORYCLIA [id number] [place] [address] [facility] (RBC) [Mass/Vol]32.8 g/eFEwjfhf74.5-36.0Lutacmc healthcare system [facility]igh HospitalComment on above:Order Comment: Specimen Type: BLOOD SPECIMENOrdering Facility: [facility] Address:[address] [place], [place] [address]Performed By: #### 51383-8 ####BAPTISM LABORATORYCLIA [id number] [place] [address] [place] AMERICAMCV (RBC) [Entitic vol] 100.7 xIPigl35.0-100.0Lutheran HospitalComment on above:Order Comment: Specimen Type: BLOOD SPECIMENOrdering Facility: [facility] Address:[address] [place], [place] [address]Performed By: #### 07538-4 ####BAPTISM LABORATORYCLIA [id number] [address] [place], [place] [address]ucleated RBC (Bld) [#/Vol]10*3/uLNormal<0.01Lutheran HospitalComment on above:Order Comment: Specimen Type: BLOOD SPECIMENOrdering Facility: [facility] Address:[address] [place], [place] [address]Performed By: #### 20174-3 ####BAPTISM LABORATORYCLIA [id number] [address] [place], [place] [address]Platelet mean volume (Bld) [Entitic vol]10.6 fL Normal9.0-12.7Lutheran HospitalComment on above:Order Comment: Specimen Type: BLOOD SPECIMENOrdering Facility: [facility] Address:[address] [place], [place] [address]Performed By: #### 47538-3 ####BAPTISM LABORATORYCLIA [id number] [address] Platelets (Bld) [#/Vol]177 10*3/aDWhsolh118-254Qqhnsfpq HospitalComment on above:Order Comment: Specimen Type: BLOOD SPECIMENOrdering Facility: [facility] Address:[address] [place], [place] [address]Performed By: #### 01934-5 ####BAPTISM LABORATORYCLIA [id number] [address] [place] [address] STATES [facility]LAND HOSPITALRBC (Bld) [#/Vol]4.03 10*6/uLLow4.20-6.00Lutheran HospitalComment on above:Order Comment: Specimen Type: BLOOD SPECIMENOrdering Facility: [facility] Address:[address] [place], [place] [address]Performed By: #### 91274-5 ####BAPTISM LABORATORYCLIA [id number] [place] [address] [place] AMERICAWBC (Bld) [#/Vol]9.80 10*3/uLNormal3.70-11.00Fairfield Medical CenterComment on above:Order Comment: Specimen Type: BLOOD SPECIMENOrdering Facility: [facility] Address:[address] [place], [place] [address]Performed By: #### 95647-1 ####BAPTISM LABORATORYCLIA [id number] [place] [address] [facility] AMERICATHERAPY NTon 68-85-1403NGRKMUS NTHNO ID: [id number] Author: ARGELIA KUMARI, PT, DPT Service: Physical Therapy Author Type: Physical Therapist Type: Therapy (PT/OT/Speech/Resp) Filed: 11/17/2024 11:23 Note Text: Summary: PT Evaluation Physical Therapy Evaluation Summary SERVICE DATE: 11/17/2024 SERVICE TIME: 1049 to 1114 ROOM: [address]- PT 6 Clicks Score: 23 DISCHARGE [...] want to get outside to watch the [employer] DIAGNOSIS Abnormalities of gait and mobility-other TREATMENT INTERVENTIONS Evaluation, Gait Training (59091) Timed Code Treatment (minutes): 10 Skilled Treatment [...] Harris DATE: November 17, 2024 TIME: 11:23 [facility] NTO ID: [id number] Author: GYPSY HWANG, OTR/L Service: Occupational Therapy Author Type: Occupational Therapist Type: Therapy (PT/OT/Speech/Resp) Filed: 11/17/2024 11:06 Note Text: Occupational Therapy Evaluation Summary SERVICE DATE: 11/17/2024 SERVICE TIME: 1017 to 1036 ROOM: [place] [address] OT 6 Clicks Score: 24 Total Joint [...] Harris DATE: November 17, 2024 TIME: 11:06 [facility] POSTPROC EVALon 45-55-0318IWIW POSTPROC EVALHNO ID: [id number] Author: JOSE RAHMAN MD Service: Anesthesiology Author [...] November 16, 2024 TIME: 1:18 PM CSN: [id number] Regional Medical Center PRE-OPon 35-67-6230WXYN PRE-OPHNO ID: [id number] Author: JOSE RAHMAN MD Service: Anesthesiology Author [...] and consent discussed: yes. Patient / Responsible Democrat agrees to proceed: yes Patient / Surrogate [...] November 16, 2024 TIME: 6:57 AM CSN: [id number] HospitalBRIEF OP NOTon 11-16-2024 BRIEF OP NOTHNO ID: [id number] Author: ELLIE RASHID MD Service: Neurosurgery Author Type: Fellow Type: Brief Op Note Filed: 11/16/2024 10:32 Note Text: SPINE SURGERY BRIEF OP NOTE PATIENT NAME: Bee Harris DOS: 11/16/2024 Preop Diagnosis: Cervical Myelopathy Postop Diagnosis: same Procedure(s): C3-C5 laminoplasty Attending Surgeon: Jus Wisdom MD Nurse Practitioner Per Diem(s): Ellie Rashid, PGY-6 Drains: HVAC x1 Specimens: [...] spine team. Ellie Rashid MD PGY-6 Spine FellowNoAshtabula County Medical CenterCONSULTon 12-23-6720BROMEGLIMD ID: [id number] Author: KARINA WOODSON MD Service: General Internal [...] HOURS Ordered 11/16/24 11 (more content not included)...[facility] NOon [id number] NOHNO ID: [id number] Author: JUS WISDOM MD Service: Neurosurgery Author Type: Physician Type: Operative Report Filed: 11/16/2024 16:21 Note Text: Operative NOTE LOG ID: [id number] Surgery/Procedure Date: 11/16/2024 Incision/Procedure Start Time: 8:26 AM Incision Close/Procedure End Time: 9:57 AM Surgeon(s)/Proceduralist(s) and Nurse Practitioner Per Diem(s): Surgeons and Role: * Jus Wisdom MD - Primary * Ellie Rashid MD - Fellow Pre-Op/Pre-Procedure Diagnosis: cervical myelopathy Post-Op/Post-Procedure Diagnosis: same Procedure(s): Cervical laminoplasty C3-5 Anesthesia: General Estimated Blood Loss: 100 mls Specimens Removed: * No specimens in log * Drain: Implant Name Type Inv. Item Serial No. Eligibility Analyst Lot No. LRB No. Used Action BIT CANOPY 1.4MM DRILL - [id number] Bit BIT CANOPY 1.4MM DRILL [employer] N/A 1 Non-Implant SCREW CANOPY 2.6MM 4MM BONE SELF DRILL LAMINOPLASTY SPINE - [id number] Screw SCREW CANOPY 2.6MM 4MM BONE SELF [...] the patient was placed in a Khan inspector and adjuster golf club head, positioned prone and fixed to the [...] Rachid MD performed the role of assistant operator as no qualified residents were available. He performed surgical exposure, assisted in decompression and instrumentation, and performed wound closure under direct supervision by primary surgeon Jus Wisdom MD . Dr. Jus Wisdom MD was scrubbed in an performed all critical portions of the procedure and was immediately available in the immediate pre-operative and post-operative period. Jus Wisdom MD Spine Surgery.[facility] HospitalXR CERVICAL SPECIFY 1Von [id number] CERVICAL SPECIFY 1V* * *Final Report* * * DATE OF EXAM: Nov 16 2024 9:42AM [facility] - XR CERVICAL SPECIFY 1V / PROCEDURE REASON: Cervical spinal stenosis * * * * Physician Interpretation * * * * Indication: Cervical spinal stenosis X-ray cervical spine 11/16/2024 at 0845 hours IMPRESSION: Counting reference: Craniocervical junction. Anatomic Variants: None. Lateral intraoperative x-ray of the cervical spine is performed. Hardware is noted overlying the lamina of C3, C4 and C5. Laborer Pole Crew: [facility] HOSPITALMakayla Transcribe Date/Time: Nov 17 2024 3:13P Dictated by : AISSATOU SCOTT MD This examination was interpreted and the report reviewed and electronically signed by: AISSATOU SCOTT MD on Nov 17 2024 3:14PM EST [id number] HospitalXR CERVICAL SPECIFY 1V* * *Final Report* * * DATE OF EXAM: Nov 16 2024 8:16AM [id number] - XR CERVICAL SPECIFY 1V / [...] phone and Skype during the surgical procedure. [employer] Crew: [facility] Transcribe Date/Time: Nov 16 2024 8:48A Dictated by : TAMIR FORD MD This examination was interpreted and the report reviewed and electronically signed by: TAMIR FORD MD on Nov 16 2024 8:50AM EST [id number]_[facility] SouthXR VERIFY LEVEL [id number] VERIFY LEVEL C-[id number]* * *Final Report* * [...] phone and Skype during the surgical procedure. Laborer Pole Crew: [facility] Transcribe Date/Time: Nov 16 2024 8:48A Dictated by : TAMIR FORD MD This examination was interpreted and the report reviewed and electronically signed by: TAMIR FORD MD on Nov 16 2024 8:50AM EST [id number]_IDCACDayton Osteopathic HospitalCNNURSEon [id number] Visit (SPNSMN) BEE HARRIS ([id number]) 1965 M Date Time Provider Department 11/14/24 [...] and post op restrictions. Provided to patient: [facility] Surgery Guide, skin prep supplies, Spine [...] Devaughn Vazquez RN Referring Provider: JUS WISDOM [[id number]] Allergies As of Date: 11/14/2024 (No Known Allergies) Date Reviewed: 11/09/2024 Reviewed by: Ernie Rankin APRN.LUMP RECEIVER - Fully Assessed Primary Visit Diagnosis:Spinal stenosis [...] 02/15/2024 Encounter Status:Closed by DEVAUGHN VAZQUEZ on 11/14/24No[facility] [id number] (CARINAMN) BEE HARRIS ([id number]) 1965 M Date Time Provider Department 11/01/24 [...] to below message, upcoming surgery call back [phone] Devaughn Vazquez RN 11/07/2024 11:00 AM Addendum [...] Date Reviewed: 10/25/2024 Reviewed by: Justin Boo APRN.LUMP RECEIVER - Fully Assessed Reason for Visit: Patient Question [7597] Prescriptions as of 11/15/2024 - atorvastatin (LIPITOR) [...] 02/15/2024 Encounter Status:Closed by DEVAUGHN VAZQUEZ on 11/01/24NormalCOhioHealth [facility] W Auto Differential panel (Bld)on 97-80-0930Zoycrnpvh (Bld) [#/Vol] 0.08 10*3/uLNormal<0.11CMansfield HospitalComcorewell health [facility] on above:Order Comment: Specimen Type: BLOOD SPECIMEN Ordering Facility: [facility] Address: [address] [place], [place] [address]Performed By: #### 2276-4, 24457-5 #### [facility] CLIA [id number] [address] [place] [address] [place] [address] [place] OF AMERICABasophils/100 WBC (Bld)0.9 % NormalPremier Health Atrium Medical Center on above:Order Comment: Specimen Type: BLOOD SPECIMEN Ordering Facility: [facility] Address: [address] [place], [place] [address]Performed By: #### 2276-4, 44305-1 #### [facility] CLIA [id number] [address] [place] [address] [place] AMERICADifferential cell count method Nom (Bld)AutoNormalCKettering Health Miamisburg on above:Order Comment: Specimen Type: BLOOD SPECIMEN Ordering Facility: [facility] Address: [address] [place], [place] [address]Performed By: #### 2276-4, 83609-9 #### [facility] CLIA [id number] [address] [place] [address] [place] AMERICAEosinophils (Bld) [#/Vol] 0.16 10*3/uLNormal<0.46[facility] on above:Order Comment: Specimen Type: BLOOD SPECIMEN Ordering Facility: [facility] Address: [address] [place], [place] [address]Performed By: #### 2276-4, 27666-9 #### [facility] CLIA [id number] [address] [place] [address] [place] AMERICAEosinophils/100 WBC (Bld)1.7 %NormalPremier Health Atrium Medical Center on above:Order Comment: Specimen Type: BLOOD SPECIMEN Ordering Facility: [facility] Address: [address] [place], [place] [address]Performed By: #### 2276-4, 80486-7 #### [facility] CLIA [id number] [address] [place] [address] [place] AMERICAErythrocyte distribution width (RBC) [Ratio]13.9 %Flcqww28.5-15.0[facility] on above:Order Comment: Specimen Type: BLOOD SPECIMEN Ordering Facility: [facility] Address: [address] [place], [place] [address]Performed By: #### 2276-4, 44470-3 #### [facility] CLIA [id number] [address] [place] [address] [place] AMERICAHematocrit (Bld) [Volume fraction]42.4 %Xncnbk58.0-51.0[facility] on above:Order Comment: Specimen Type: BLOOD SPECIMEN Ordering Facility: [facility] Address: [address] [place], [place] [address]Performed By: #### 2276-4, 69818-1 #### [facility] CLIA [id number] [address] [place] [address] [place] AMERICAHemoglobin (Bld) [Mass/Vol] 14.1 g/rVFfpvsn90.0-17.0[facility] on above:Order Comment: Specimen Type: BLOOD SPECIMEN Ordering Facility: [facility] Address: [address] [place], [place] [address]Performed By: #### 2276-4, 57373-5 #### [facility] CLIA [id number] [address] [place] [address] [place] AMERICAImmature granulocytes (Bld) [#/Vol]10*3/uLNormal<0.10[facility] on above:Order Comment: Specimen Type: BLOOD SPECIMEN Ordering Facility: [facility] Address: [address] [place], [place] [address]Performed By: #### 2276-4, 94415-4 #### [facility] CLIA [id number] [address] [place] [address] [place] AMERICAImmature granulocytes/100 WBC (Bld)0.2 %NormalPremier Health Atrium Medical Center on above:Order Comment: Specimen Type: BLOOD SPECIMEN Ordering Facility: [facility] Address: [address] [place], [place] [address]Performed By: #### 2276-4, 52765-3 #### [facility] CLIA [id number] [address] [place] [address] [place] AMERICALymphocytes (Bld) [#/Vol] 2.35 10*3/uLNormal1.00-4.00[facility] on above:Order Comment: Specimen Type: BLOOD SPECIMEN Ordering Facility: [facility] Address: [address] [place], [place] [address]Performed By: #### 2276-4, 13558-1 #### [facility] CLIA [id number] [address] [place] [address] [place] AMERICALymphocytes/100 WBC (Bld) 25.5 %NormalPremier Health Atrium Medical Center on above:Order Comment: Specimen Type: BLOOD SPECIMEN Ordering Facility: [facility] Address: [address] [place], [place] [address]Performed By: #### 2276-4, 67224-8 #### [facility] CLIA [id number] [address] [place] [address] OF [facility]ITALH (RBC) [Entitic mass]33.1 kxZpwbvt75.0-34.0[facility] on above:Order Comment: Specimen Type: BLOOD SPECIMEN Ordering Facility: [facility] Address: [address] [place], [place] [address]Performed By: #### 2276-4, 08052-2 #### [facility] CLIA [id number] [address] [place], [place] [address] [facility] (RBC) [Mass/Vol]33.3 g/tFPxdaea29.5-36.0[facility] on above:Order Comment: Specimen Type: BLOOD SPECIMEN Ordering Facility: [facility] Address: [address] [place], [place] [address]Performed By: #### 2276-4, 22826-0 #### [facility] CLIA [id number] [address] [place] [address] [place] AMERICAMCV (RBC) [Entitic vol]99.5 vQYnaeev86.0-100.0[facility] on above:Order Comment: Specimen Type: BLOOD SPECIMEN Ordering Facility: [facility] Address: [address] [place], [place] [address]Performed By: #### 2276-4, 20978-5 #### [facility] CLIA [id number] [address] [place] [address] [place] AMERICAMonocytes (Bld) [#/Vol]1.02 10*3/uLHigh<0.87[facility] on above:Order Comment: Specimen Type: BLOOD SPECIMEN Ordering Facility: [facility] Address: [address] [place], [place] [address]Performed By: #### 2276-4, 87990-8 #### [facility] [place] [id number] [address] [place] [address] [place] AMERICAMonocytes/100 WBC (Bld)11.1 %NormalPremier Health Atrium Medical Center on above:Order Comment: Specimen Type: BLOOD SPECIMEN Ordering Facility: [facility] Address: [address] [place], [place] [address]Performed By: #### 2276-4, 40696-6 #### [facility] [place] [id number] [address] [place] [address] [place] AMERICANeutrophils (Bld) [#/Vol] 5.59 10*3/uLNormal1.45-7.50[facility] on above:Order Comment: Specimen Type: BLOOD SPECIMEN Ordering Facility: [facility] Address: [address] [place], [place] [address]Performed By: #### 2276-4, 71691-1 #### [facility] CLIA [id number] [address] [place] [address] [place] AMERICANeutrophils/100 WBC (Bld) 60.6 %NormalPremier Health Atrium Medical Center on above:Order Comment: Specimen Type: BLOOD SPECIMEN Ordering Facility: [facility] Address: [address] [place], [place] [address]Performed By: #### 2276-4, 84035-4 #### [facility] CLIA [id number] [address] [place] [address] [place] AMERICANucleated RBC (Bld) [#/Vol] 10*3/uLNormal<0.01[facility] on above:Order Comment: Specimen Type: BLOOD SPECIMEN Ordering Facility: [facility] Address: [address] [place], [place] [address]Performed By: #### 2276-4, 44467-1 #### [facility] CLIA [id number] [address] [place] [address] [place] AMERICANucleated RBC/100 WBC (Bld) [Ratio]0.0 /100 WBCNormalCKettering Health Miamisburg on above:Order Comment: Specimen Type: BLOOD SPECIMEN Ordering Facility: [facility] Address: [address] [place], [place] [address]Performed By: #### 2276-4, 91244-4 #### [facility] CLIA [id number] [address] [place] [address] [place] AMERICAPlatelet mean volume (Bld) [Entitic vol]10.3 fLNormal9.0-12.7CKettering Health [facility] on above: Order Comment: Specimen Type: BLOOD SPECIMEN Ordering Facility: [facility] Address: [address] [place], [place] [address]Performed By: #### 2276-4, 13645-9 #### [facility] CLIA [id number] [address] [place] [address] [place] AMERICAPlatelets (Bld) [#/Vol]180 10*3/xSQcjcho483-274FdqpsshniPremier Health Atrium Medical Center on above:Order Comment: Specimen Type: BLOOD SPECIMEN Ordering Facility: [facility] Address: [address] [place], [place] [address], [place] [address]Performed By: #### 2276-4, 68079-5 #### [facility] CLIA [id number] [address] [place], [place] [address]RB (Bld) [#/Vol]4.26 10*6/uLNormal4.20-6.00[facility] on above:Order Comment: Specimen Type: BLOOD SPECIMEN Ordering Facility: [facility] Address: [address] [place] [address] [place], [place] [address]Performed By: #### 2276-4, 41508-1 #### [facility] CLIA [id number] [address] [place], [place] [address]W (Bld) [#/Vol]9.22 10*3/uLNormal3.70-11.00[facility] on above:Order Comment: Specimen Type: BLOOD SPECIMEN Ordering Facility: [facility] Address: [address] [place], [place] [address], [place] [address]Performed By: #### 2276-4, 16551-4 #### [facility] CLIA [id number] [address] [place], [place] [address]CNOVon 21-54-4814NTQSBnhgjv Visit ([facility]) BEE HARRIS ([id number]) 1965 M Date Time Provider Department 10/25/24 3:40 PM JUS WISDOM [facility] During your visit today, we [...] BICEPS TRICEPS DELTS Wrist Ext Wrist Flex Registered Dietician HI R 5 5 5 5 5 [...] with the patient or the patient?s personal advertising account representative. Discussed goals of surgery Halt progression [...] correctable findings B. Conservative (more content not included)...NormalUniversity Hospitals Conneaut [facility] Center CONFIRM BLOOD TYPEon 89-65-7785YHCRQzntwpUfaageljlKettering Health [facility]amisburg on above:Order Comment: Specimen Type: BLOOD SPECIMEN Ordering Facility: [facility] Address: [address] [place], [place] [address]Performed By: #### 2276-4, 09735-0 #### [facility] CLIA [id number] [address] [place] [address] [place] AMERICARh Nom (Bld)PositiveNormal [facility] on above:Order Comment: Specimen Type: BLOOD SPECIMEN Ordering Facility: [facility] Address: [address] [place], [place] [address]Performed By: #### 2276-4, 84195-9 #### [facility] CLIA [id number] [address] [place] [address] [place] AMERICAComprehensive metabolic 2000 panelon 97-44-1823Brpoqco [Mass/Vol]4.4 g/dLNormal3.9-4.9CKettering Health [facility] on above:Order Comment: Specimen Type: BLOOD SPECIMEN Ordering Facility: [facility] Address: [address] [place], [place] [address]Performed By: #### 2276-4, 46723-8 #### [facility] CLIA [id number] [address] [place] [address] [place] AMERICAALP [Catalytic activity/Vol] 74 U/FYkeykx34-627NmkxcopxqPremier Health Atrium Medical Center on above:Order Comment: Specimen Type: BLOOD SPECIMEN Ordering Facility: [facility] Address: [address] [place], [place] [address]Performed By: #### 2276-4, 73424-9 #### [facility] CLIA [id number] [address] [place], [place] [address] [place] AMERICAALT [Catalytic activity/Vol] 25 U/SLsufly60-23YudqtholvPremier Health Atrium Medical Center on above:Order Comment: Specimen Type: BLOOD SPECIMEN Ordering Facility: [facility] Address: [address] [place], [place] [address]Performed By: #### 2276-4, 88472-0 #### [facility] CLIA [id number] [address] [place], [place] [address] [place] AMERICAAnion gap [Moles/Vol]10 mmol/LNormal8-15[facility] on above:Order Comment: Specimen Type: BLOOD SPECIMEN Ordering Facility: [facility] Address: [address] [place], [place] [address]Performed By: #### 2276-4, 29646-0 #### [facility] CLIA [id number] [address] [place] [address] [place] AMERICAAST [Catalytic activity/Vol] 28 U/VCxizwb33-34IhdhkylzaPremier Health Atrium Medical Center on above:Order Comment: Specimen Type: BLOOD SPECIMEN Ordering Facility: [facility] Address: [address] [place], [place] [address]Performed By: #### 2276-4, 10458-0 #### [facility] CLIA [id number] [address] [place] [address] [place] AMERICABilirubin [Mass/Vol]0.4 mg/dLNormal0.2-1.3CKettering Health [facility] on above:Order Comment: Specimen Type: BLOOD SPECIMEN Ordering Facility: [facility] Address: [address] [place], [place] [address]Performed By: #### 2276-4, 24364-1 #### [facility] CLIA [id number] [address] [place] [address] [place] AMERICACalcium [Mass/Vol]9.2 mg/dL Normal8.5-10.2CKettering Health Miamisburg on above:Order Comment: Specimen Type: BLOOD SPECIMEN Ordering Facility: [facility] Address: [address] [place], [place] [address]Performed By: #### 2276-4, 26036-1 #### [facility] CLIA [id number] [address] [place], [place] [address] [place] AMERICAChloride [Moles/Vol]109 mmol/SHsgw96-546AfeqplsuqPremier Health Atrium Medical Center on above:Order Comment: Specimen Type: BLOOD SPECIMEN Ordering Facility: [facility] Address: [address] [place], [place] [address]Performed By: #### 2276-4, 45740-6 #### [facility] CLIA [id number] [address] [place], [place] [address] [place] AMERICACO2 [Moles/Vol]22 mmol/L Rywnpu60-25PicollzgoPremier Health Atrium Medical Center on above:Order Comment: Specimen Type: BLOOD SPECIMEN Ordering Facility: [facility] Address: [address] [place], [place] [address]Performed By: #### 2276-4, 58467-6 #### [facility] CLIA [id number] [address] [place] [address] [place] AMERICACreatinine [Mass/Vol]0.89 mg/dLNormal0.73-1.22[facility] on above:Order Comment: Specimen Type: BLOOD SPECIMEN Ordering Facility: [facility] Address: [address] [place], [place] [address]Performed By: #### 2276-4, 77429-4 #### [facility] CLIA [id number] [address] [place] [address] [place] AMERICACreatinine and Glomerular filtration rate.predicted panel (S/P/Bld)100 mL/min/1.73m???Normal>=60[facility] on above:Order Comment: Specimen Type: BLOOD SPECIMEN Ordering Facility: [facility] Address: [address] [place], [place] [address]Result Comment: Estimated Glomerular Filtration Rate (eGFR) is [...] accurately reflect actual GFR.Performed By: #### 2276-4, 89273-8 #### [facility] CLIA [id number] [address] [place] [address] [place] AMERICAGlucose [Mass/Vol]88 mg/dL Mvbdgf93-35BnaeclctuPremier Health Atrium Medical Center on above:Order Comment: Specimen Type: BLOOD SPECIMEN Ordering Facility: [facility] Address: [address] [place], [place] [address]Result Comment: The [place] [employer] (ADA) provides guidance for cutoff [...] Standards of Medical Care in Diabetes 2016, [place] [employer]. Diabetes Care. 2016.39(Suppl 1).Performed By: #### 2276-4, 47273-2 #### [facility] CLIA [id number] [address] [place] [address] [place] AMERICAPotassium [Moles/Vol]4.3 mmol/LNormal3.7-5.1CKettering Health [facility]amisburg on above:Order Comment: Specimen Type: BLOOD SPECIMEN Ordering Facility: [facility] Address: [address] [place] [address]Pooxvoesl By: #### 2276-4, 68596-4 #### [facility] CLIA [id number] [address] [place] [address] [place] AMERICAProtein [Mass/Vol]6.7 g/dL Normal6.3-8.0[facility] on above:Order Comment: Specimen Type: BLOOD SPECIMEN Ordering Facility: [facility] Address: [address] [place], [place] [address]Performed By: #### 2276-4, 87194-5 #### [facility] CLIA [id number] [address] [place] [address] [place] AMERICASodium [Moles/Vol]141 mmol/L Tybmnp606-069CsikyowrdPremier Health Atrium Medical Center on above:Order Comment: Specimen Type: BLOOD SPECIMEN Ordering Facility: [facility] Address: [address] [place], [place] [address]Performed By: #### 2276-4, 87609-9 #### [facility] CLIA [id number] [address] [place] [address] [place] AMERICAUrea nitrogen [Mass/Vol]16 mg/dLNormal9-24[facility] on above:Order Comment: Specimen Type: BLOOD SPECIMEN Ordering Facility: [facility] Address: [address] [place], [place] [address]Performed By: #### 2276-4, 02182-9 #### [facility] CLIA [id number] [address] [place] [address] [place] AMERICAECG COMPLETEon 36-50-4282EJR COMPLETEVentricular Rate : 63 BPM Atrial Rate : 63 BPM P-R Interval : 174 ms QRS Duration : 104 ms Q-T Interval : 428 ms QTC Calculation(Bazett) : 437 ms Calculated P [place] : 69 degrees Calculated R [place] : 36 degrees Calculated T [place] : 54 degrees NORMAL SINUS RHYTHM NORMAL ECG NO PREVIOUS ECGS AVAILABLE Confirmed by RHINA CAMP MD ([id number]) on 10/29/2024 2:10:09 PM NAME : BEE HARRIS PID : [id number] : 1965 Gender : Male Race : ORD : [id number] Procedure Date : Oct 25 2024 13:58:02 Edit Date : Oct 29 2024 14:10:12 Diagnosis: NORMAL SINUS RHYTHM NORMAL ECG NO PREVIOUS ECGS AVAILABLE Confirmed by RHINA CAMP MD ([id number]) on 10/29/2024 2:10:09 PM Test Reason : Location : 670 : [facility] Overread By : RHINA CAMP MD Edited By : RHINA CAMP MD Referred By : JUS WISDOM Acquired by : Nancy singhUniversity Hospitals Conneaut Medical CenterFerritin SerPl-mCncon 34-15-8519Gvsiwiuh [Mass/Vol]95.4 ng/qUJayhrc69.3-565.7CMansfield HospitalComcorewell health [facility] on above:Order Comment: Specimen Type: BLOOD SPECIMEN Ordering Facility: [facility] Address: [address] [place], [place] [address]Performed By: #### 2276-4, 41928-9 #### [facility] CLIA [id number] [address] [place] [address] [address]ETHISTORY PHYSICALon [id number] PHYSICALHNO ID: [id number] Author: JUSTIN BOO APRN.LUMP RECEIVER Service: ? Author Type: Nurse Practitioner Type: [...] have a large neck STOP-Bang Score: 2 GNE7TT4-GNAl Score: Age: <65 Sex: Female CHF history: No Hypertension history: Yes Stroke/TIA/thromboembolism history: No Vascular disease history: No Diabetes history: No LOV8WZ1-IINy Score: 2 I - PHYSICAL EVALUATION AIRWAY [...] procedure. [facility] or Procedure:: Yazidi Status of surgery/procedure:: Scheduled Date of surgery/procedure:: [...] requesting physician by way (more content not included)...NormalUniversity Hospitals Conneaut Medical CenterIron and Iron binding capacity panelon 26-44-3362Xcrn [Mass/Vol]123 ug/yDOlgwel50-317BejesfshfPremier Health Atrium Medical Center on above:Order Comment: Specimen Type: BLOOD SPECIMEN Ordering Facility: [facility] Address: [address] [place], [place] [address]Performed By: #### 2276-4, 44964-1 #### [facility] CLIA [id number] [address] [place] [address] OF CITY HOSPITALIron binding capacity [Mass/Vol]254 ug/lQYipbmo906-424TaedpepwcPremier Health Atrium [facility] Center on above:Order Comment: Specimen Type: BLOOD SPECIMEN Ordering Facility: [facility] Address: [address] [place], [place] [address]Performed By: #### 2276-4, 21068-5 #### [facility] CLIA [id number] [address] [place] [address] [place] AMERICAIron/TIBC [Molar ratio]48.4 %Ifopyr41.0-57.0[facility] on above:Order Comment: Specimen Type: BLOOD SPECIMEN Ordering Facility: [facility] Address: [address] [place], [place] [address]Performed By: #### 2276-4, 86010-3 #### [facility] CLIA [id number] [address] [place] [address] [place] AMERICARetics #on 10-25-2024 Reticulocytes (Bld) [#/Vol]0.67816 10*3/uLNormal0.018-0.100[facility] on above:Order Comment: Specimen Type: BLOOD SPECIMEN Ordering Facility: [facility] Address: [address] [place], [place] [address]Performed By: #### 2276-4, 73571-7 #### [facility] CLIA [id number] [address] [place] [address] [place] AMER[place]eticulocytes (Bld) [#/Vol] on [id number] Auto (Reticulocytes) [Entitic mass]36.6 haVbta52.0-36.0 [facility] on above:Order Comment: Specimen Type: BLOOD SPECIMEN Ordering Facility: [facility] Address: [address] [place], [place] [address]Performed By: #### 2276-4, 96294-8 #### [facility] CLIA [id number] [address] [place] [address] [place] AMERICAImmature reticulocytes/Total reticulocytes (Bld)10.6 %Normal2.0-13.5[facility] on above:Order Comment: Specimen Type: BLOOD SPECIMEN Ordering Facility: [facility] Address: [address] [place], [place] [address]Performed By: #### 2276-4, 21555-2 #### [facility] CLIA [id number] [address] [place] [address] [place]eticulocytes/100 RBC (Bld) 1.4 %Normal0.4-2.0[facility] on above:Order Comment: Specimen Type: BLOOD SPECIMEN Ordering Facility: [facility] Address: [address] [place], [place] [address]Performed By: #### 2276-4, 73216-7 #### [facility] [facility] CLIA [id number] [address] [place] [address] [place] STATES OF AMERICASTAPHYLOCOCCUS AUREUS AND MRSA SCREEN, PCR, NASALon 10-25-2024S. aureus and MRSA panel LAINA+probe (Nose)Not detectedNormalNot DetectedPremier Health Atrium Medical Center on above:Order Comment: Specimen Type: SWAB Ordering Facility: [facility] Address: [address] [place], [place] [address]Performed By: #### SAPCR #### [facility] CLIA [id number] [address] [place] [address] [place] OF AMERICATYPE AND SCREEN,30 DAYon 64-63-8584ZSDVJsotssLqwkgkmqiKettering Health Miamisburg on above:Order Comment: Specimen Type: BLOOD SPECIMEN Ordering Facility: [facility] Address: [address] [place], [place] [address]Performed By: #### 2276-4, 77949-7 #### [facility] CLIA [id number] [address] [place] [address] [place] OF AMERICARh Nom (Bld)PositiveNormal [facility] on above:Order Comment: Specimen Type: BLOOD SPECIMEN Ordering Facility: [facility] Address: [address] [place], [place] [address]Performed By: #### 2276-4, 08816-5 #### [facility] CLIA [id number] [address] [place] [address] OF [facility]PITALCNPNon 28-18-6680RZLX Telephone (NIQ) BEE HARRIS ([id number]) 1965 M Date Time Provider Department 10/18/24 [...] appointment: 10/25/2024 Best number to reach caller: [phone] Best time to reach caller: any Is it OK to leave a detailed voice message? Yes Devaughn Cox, RN 10/18/2024 2:05 PM Signed Neuro SPINE CARE COORDINATION QUICK NOTE Call to the pt and reviewed questions Allergies As of Date: 10/18/2024 (No Known Allergies) Date Reviewed: 10/11/2024 Reviewed by: Eloise Edgar OCCA - Fully Assessed Reason for Visit: Patient Question [5127] Preparations For Surgery [898] Prescriptions as of [...] 02/15/2024 Encounter Status:Closed by DEVAUGHN VAZQUEZ on 10/18/24NoFostoria City HospitalCNDONNIEon 03-65-6404YDCIHmgdpwzxd (NIQ) BEE HARRIS ([id number]) 1965 M Date Time Provider Department 10/12/24 [...] 10/25/2024 Best number to reach caller: Cassi [phone] Best time to reach caller: 8 am till 4 pm Is it OK to leave a detailed voice message? Yes Devaughn Chairez RN 10/13/2024 8:24 AM Addendum Neuro SPINE CARE COORDINATION QUICK NOTE Pt pending C3-5 laminoplasty on 11-16-24 PM would like to proceed with SI joint injection Will review with team- as per USED [facility] no contraindications to proceeding with SI joint injection. Call to PM and update provided to Cassi (RN) Allergies As of Date: 10/12/2024 (No Known Allergies) Date Reviewed: 10/11/2024 Reviewed by: Eloise Edgar OCCA - Fully Assessed Reason for Visit: Patient Question [0287] Prescriptions as of 10/13/2024 - atorvastatin (LIPITOR) [...] 02/15/2024 Encounter Status:Closed by DEVAUGHN VAZQUEZ on 10/13/24[facility] 53-92-9742SYKFWxnbcl Visit ([facility]) BEE HARRIS ([id number]) 1965 M Date Time Provider Department 10/11/24 11:00 AM JUS WISDOM [facility] During your visit today, we [...] 5-14 Normal: PHQ-9 < 5 Data from [facility] Epic on prior therapies: Last PT [...] BICEPS TRICEPS DELTS Wrist Ext Wrist Flex Registered Dietician HI R 5 5 5 5 5 [...] of his neck NEURO TESTS: DATA REVIEW [facility] records independently reviewed MRI with severe [...] with the patient or the patient?s personal advertising account representative. Discussed goals of surgery Halt progression [...] trialed in a meanin (more content not included)...NormalUniversity Hospitals Conneaut Medical CenterCNPNon 27-52-0860KJTVAkaeaosrw (SPNSMN) BEE HARRIS ([id number]) 1965 M Date Time Provider Department 10/11/24 [...] 02/15/2024 Encounter Status:Closed by DEVAUGHN VAZQUEZ on 10/11/24NoSt[facility] CERVICAL SPINE WO IVCONon 98-18-7235ML CERVICAL SPINE WO IVCON* * *Final Report* [...] Counting reference: Craniocervical junction. Anatomic Variants: None. Hand Candle Molder (topogram) images: Unremarkable. Alignment: Cervical dextrocurvature centered [...] vertebrae with counting from the craniocervical junction. Laborer Pole Crew: LIANA Transcribe Date/Time: Oct 11 2024 11:12A Dictated by : ERROL INGRAM MD This examination was interpreted and the report reviewed and electronically signed by: ERROL INGRAM MD on Oct 11 2024 11:23AM EST [id number] VA / Crille Hospital Cervical spine WO contraston 45-86-7539MDNZABSNGM: Multilevel cervical spondylosis as described, not significantly changed from 06/23/2024. Up to moderate canal stenosis at C3-4 and C4-5. Scattered high-grade foraminal stenoses as described. Ovoid hyperdensity along the LEFT floor of mouth most likely corresponds to chewing gum. Anatomic Variant: None. Assume 7 cervical vertebrae with counting from the craniocervical junction. Laborer Pole Crew: PSCB Transcribe Date/Time: Oct 11 2024 11:12A Dictated by : ERROL INGRAM MD This examination was interpreted and the report reviewed and electronically signed by: ERROL INGRAM MD on Oct 11 2024 11:23AM EST DIVISION OF RADIOLOGY* * *Final Report* * * DATE OF EXAM: Oct 11 2024 9:26AM [facility] [place] [place] CERVICAL SPINE WO IVCON [...] Counting reference: Craniocervical junction. Anatomic Variants: None. Hand Candle Molder (topogram) images: Unremarkable. Alignment: Cervical dextrocurvature centered [...] neural foramen is patent. DIVISION OF RADIOLOGYProvider, [facility] [place] - 10/11/2024 * * *Final Report* * * DATE OF EXAM: Oct 11 2024 9:26AM [facility] [place] [place] CERVICAL SPINE WO IVCON [...] Counting reference: Craniocervical junction. Anatomic Variants: None. Hand Candle Molder (topogram) images: Unremarkable. Alignment: Cervical dextrocurvature centered [...] vertebrae with counting from the craniocervical junction. Laborer Pole Crew: [facility] Transcribe Date/Time: Oct 11 2024 11:12A Dictated by : ERROL INGRAM MD This examination was interpreted and the report reviewed and electronically signed by: ERROL INGRAM MD on Oct 11 2024 11:23AM EST [facility] HospitalRadiology Study observation (narrative)[facility] Cervical spine WO contrastOrdered By: [facility] Provider on 44-35-6588Ldqbbliys Clinic CNOVon 27-55-4999TZWFHsrapp Visit (SPNSMN) BEE HARRIS ([id number]) 1965 M Date Time Provider Department 08/25/24 1:30 PM ERNIE RANKIN SPNSMN During your visit today, we recorded the following information about you: Pulse Blood pressure 66/minute 129/73 Ernie Rankin APRN.LUMP RECEIVER 08/26/2024 1:47 PM Signed SPINE SURGERY NEW [...] - Generalized low back pain (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 Laborer Pole Crew: LIANA Transcribe Date/Time: Aug 25 2024 2:15P Dictated by : BRANDO HUIZAR MD This examination was interpreted and the report reviewed and electronically signed by: BRANDO HUIZAR MD on Aug 25 2024 2:16PM [facility] DIVISION OF RADIOLOGYNo Panel InformationOrdered By: [facility] Provider on 08-25-2024 [facility]pelier HospitalXR CERV OTHER 4V AP/LAT/FLX/EXTon 08-25-2024* * *Final [...] are intact. COMBINEDDIVISION OF RADIOLOGYProvider, [facility] [place] - 08/25/2024 * * *Final Report* * [...] COMBINED IMPRESSION IMPRESSION: Degenerative changes as described. Laborer Pole Crew: [facility] HOSPITALMakayla Transcribe Date/Time: Aug 25 2024 2:15P Dictated by : BRANDO HUIZAR MD This examination was interpreted and the report reviewed and electronically signed by: BRANDO HUIZAR MD on Aug 25 2024 2:16PM EST [facility] HospitalRadiology Study observation (narrative)[facility] HospitalXR CERVICAL 4V AP/LAT/FLX/EXTon 09-49-5973XV CERVICAL 4V AP/LAT/FLX/EXT* * *Final Report* * [...] intact. COMBINED IMPRESSION: Degenerative changes as described. Laborer Pole Crew: LIANA Transcribe Date/Time: Aug 25 2024 2:15P Dictated by : BRANDO HUIZAR MD This examination was interpreted and the report reviewed and electronically signed by: BRANDO HUIZAR MD on Aug 25 2024 2:16PM EST [id number] Hospitals Conneaut Medical CenterXR LUMBAR 4V AP/LAT/ FLEX/EXTon 27-06-6960JL LUMBAR 4V AP/LAT/ FLEX/EXT* * *Final Report* [...] intact. COMBINED IMPRESSION: Degenerative changes as described. Laborer Pole Crew: LIANA Transcribe Date/Time: Aug 25 2024 2:15P Dictated by : BRANDO HUIZAR MD This examination was interpreted and the report reviewed and electronically signed by: BRANDO HUIZAR MD on Aug 25 2024 2:16PM EST [id number] Hospital Lumbar spine Views W flexion and W [...] sacroiliac joints are intact. COMBINEDDIVISION OF RADIOLOGYProvider, [facility] [place] - 08/25/2024 * * *Final Report* * [...] COMBINED IMPRESSION IMPRESSION: Degenerative changes as described. Laborer Pole Crew: LIANA Transcribe Date/Time: Aug 25 2024 2:15P Dictated by : BRANDO HUIZAR MD This examination was interpreted and the report reviewed and electronically signed by: BRANDO HUIZAR MD on Aug 25 2024 2:16PM EST [facility] HospitalRadiology Study observation (narrative)[facility] CERVICAL SPINE WO/W CONon 04-54-1923[place] [address] Magnetic Resonance Report Signed Patient: BEE HARRIS MR#: [id number] : 1965 Acct:[id number] Age/Sex: 58 / M ADM Date: 06/23/24 Loc: MRI Attending Dr: Savita Alcantara NP Ordering Physician: Savita Alcantara NP Date of Service: 06/23/24 Procedure(s): MR cervical spine wo/w con Accession Number(s): [id number] cc: Savita Alcantara NP; CRIS SINGH [place] [address] Patient Name: BEE HARRIS MRN: [facility]:[id number] date: 1965 Sex: M Assigned Patient Location: MRI Current Patient Location: Accession/Order Number: [id number] Exam Date: 06/23/2024 12:30 Report Date: 06/24/2024 [...] M.D. Signed By: 06/24/24924 DD/ 1 TD/TT: Laborer Pole Crew:ALYadiologalvino, Radiologist, - 06/24/2024 [place] [address] Magnetic Resonance Report Signed Patient: BEE HARRIS MR#: [id number] : 1965 Acct:[id number] Age/Sex: 58 / M ADM Date: 06/23/24 Loc: MRI Attending Dr: Savita Alcantara NP Ordering Physician: Savita Alcantara NP Date of Service: 06/23/24 Procedure(s): MR cervical spine wo/w con Accession Number(s): [id number] cc: Savita Alcantara NP; CRIS SINGH [place] [address] Patient Name: BEE HARRIS MRN: [id number] date: 1965 Sex: M Assigned Patient Location: MRI Current Patient Location: Accession/Order Number: [id number] Exam Date: 06/23/2024 12:30 Report Date: 06/24/2024 [...] M.D. Signed By: 06/24/24924 DD/ 1 TD/TT: Laborer Pole Crew: [facility] HOSPITALRomero [facility] HospitalRadiology Study observation (narrative)[facility] CERVICAL SPINE WO/W CONOrdered By: Radiologist Radiology on 89-36-4128ADSX [employer] Work Phone: MR BRAIN W AND WO CONTRAST (IACS)on 98-60-4734IH BRAIN W AND WO CONTRAST (IACS)TITLE OF [...] Comment: MRI Brain & IAC W/WO at [facility]. Please call patient to schedule.Auditory function testson 95-85-6741Ulhsi Ear: Mild to moderate sensorineural hearing loss above 2K Hz. Left Ear: Mild to moderate sensorineural hearing loss above 1K Hz. [facility] HealthcareEMG 1 Extremeityon 00-85-7650Ixjn mild C8 radiculopathy on the right Mild carpal tunnel syndrome on the right No clear explanation for right shoulder painFitzgibbon Hospital HealthcareNVC 5- 6 Nerveson 07-94-0913Xmxx mild C8 radiculopathy on the right Mild carpal tunnel syndrome on the right No clear explanation for right shoulder painNOMS [facility] HospitalNONM HealthcareRefill on [id number] Bee Harris 1965 M Date Provider Department Center 03/24/2024 44105-LPJVVNCUSAQIB [facility] Comprehensiv Family History Problem Relation Age of Onset Diabetes Mother Lung cancer Mother Kidney failure Mother Heart disease Father Other Father Family Status - Relation Status Age at Mother Father Reason for Visit and Comments: Med Refill [[id number]][facility]36on 42-21-801702 Refill request for Requested Prescriptions Pending Prescriptions [...] Overweight Perforated diverticulum Purpura (CMS/HCC) Urinary retentionNormalUniversity Adams County HospitalRefillon 02-22-2024 [id number] Bee Harris 1965 M Date Provider Department Center 02/22/2024 21783-XXSYDPOVSAQIB HOLMANICCC INT MED Comprehensiv Family History Problem Relation Age of Onset Diabetes Mother Lung cancer Mother Kidney failure Mother Heart disease Father Other Father Family Status - Relation Status Age at Mother Father Reason for Visit and Comments: Med Refill [[id number]][facility] HospitalXR pre/post mri xray on 27-63-9519ZH pre/post mri xrayUNIVERSITY H[facility] Main [place] [address] [place] [address] MRI Report Signed Patient: Bee Harris MR#: [id number] : 1965 Acct:[id number] Age/Sex: 58 / M ADM Date: 02/18/24 Loc: [facility] Room: Type: [facility] Attending Dr: Deanna Mejia DO Copies to: Deanna Mejia DO Ordering Provider: Deanna Mejia DO Date of Service: 02/18/24 MR/MR lumbar spine wo con: R29.898 ([id number]) XR/XR pre/post mri xray: LUMBAR PRES MR [...] Adilson Trinidad M.D.02/18/2024 4:45 PM Dictation Location: [place] [address] Transcribed By: [facility] 02/18/24 6405 Dictated By: Adilson Trinidad II, MD 02/18/24 3699 Signed By: 02/18/24 3245[facility] Phys[facility] HospitalMR BRAIN WO CONTon 50-54-7948FY BRAIN WO CONTMR BRAIN WO CONT MRI [...] by Bogdan Maurer MD on 12/23/2023 9:31 AMNormalMagruder HospitalUS ABDOMEN LMTDon 83-35-7782SM ABDOMEN LMTDUS ABDOMEN LMTD ABDOMEN LIMITED ULTRASOUND [...] Juan Carlos Chopra MD on 12/23/2023 1:10 PMNormalMagruder Hospital CBC AND AUTO DIFFon 11-66-8425ZPKOFBIG BASOPHIL0.1 X10E9/LNormal0.0-0.2PMercy Health Anderson HospitalComment on above:Performed By: #### CMP, 84736-0, TSHR, CBCA, 2132-04 #### [facility] ([id number]) [address], [address] [place], [place] [address]GPNQAUSH NEUTROPHIL3.2 X10E9/LNormal1.5-6.6ProAdena Pike Medical Center HospitalComment on above:Performed By: #### CMP, 20457-2, TSHR, CBCA, 2132-04 #### [facility] ([id number]) [address], [address] [place], [place] [address]Djkbogiko/100 WBC (Bld)0.9 %NormalAultman Orrville Hospital Comment on above:Performed By: #### CMP, 57268-3, TSHR, CBCA, 2132-04 #### [facility] ([id number]) [address], [address] [place], [place] [address]Knqpigqdwtl (Bld) [#/Vol]0.0 10*3/uLNormal0.0-0.4ProAdena Pike Medical Center HospitalComment on above:Performed By: #### CMP, 95093-3, TSHR, CBCA, 2132-04 #### [facility] ([id number]) [address] [place], [place] [address]Puajtxoibuq/100 WBC (Bld)0.7 %NormalAultman Orrville Hospital Comment on above:Performed By: #### CMP, 03035-7, TSHR, CBCA, 2132-04 #### [facility] ([id number]) [address] [place], [place] [address]Yrvuqevkkhl distribution width (RBC) [Ratio]13.9 %Normal 11.5-15.0ProAdena Pike Medical Center HospitalComment on above:Performed By: #### CMP, 01237-4, TSHR, CBCA, 2132-04 #### [facility] ([id number]) [address] [place], [place] [address]Ztoupytqsy (Bld) [Volume fraction]48.0 %Fqnywb63-91KvmYyyldt [place] HospitalComment on above:Performed By: #### CMP, 07927-4, TSHR, CBCA, 2132-04 #### [facility] ([id number]) [address] [place] [address]Sugvlosdqn (Bld) [Mass/Vol]16.4 g/hANpfaix04.0-17.0ProMartins Ferry HospitalComment on above:Performed By: #### CMP, 73625-1, TSHR, CBCA, 2132-04 #### [facility] ([id number]) [address] [place], [place] [address]Mckcmrdllnz (Bld) [#/Vol]1.6 10*3/uLNormal1.0-3.5ProMedica Lakehealth Beachwood Medical CenterComment on above:Performed By: #### CMP, 89384-2, TSHR, CBCA, 2132-04 #### [facility] ([id number]) [address] [place], [place] [address]Dxusebtuhix/100 WBC (Bld)28.7 %NormalProAdena Pike Medical Center Hospital Comment on above:Performed By: #### CMP, 38889-5, TSHR, CBCA, 2132-04 #### [facility] ([id number]) [address] [place], [place] [address]QRN (RBC) [Entitic mass]34.9 kpLgou24-43MifSeatteMartins Ferry HospitalComment on above:Performed By: #### CMP, 55545-9, TSHR, CBCA, 2132-04 #### [facility] ([id number]) [address] [place], [place] [address]PBTO (RBC) [Mass/Vol]34.2 g/mAUmlkqv79-92DyzWmppud [place] HospitalComment on above:Performed By: #### CMP, 33062-6, TSHR, CBCA, 2132-04 #### [facility] ([id number]) [address] [place], [place] [address]EEO (RBC) [Entitic vol]102 mLTarb30-079VqyZzyove [facility] Comment on above:Performed By: #### CMP, 63023-8, TSHR, CBCA, 2132-04 #### [facility] ([id number]) [address] [place], [place] [address]Qtitomnus (Bld) [#/Vol]0.6 10*3/uLNormal0-0.9ProAdena Pike Medical Center HospitalComment on above:Performed By: #### CMP, 95368-9, TSHR, CBCA, 2132-04 #### [facility] ([id number]) [address] [place], [place] [address]Ntbzptuas/100 WBC (Bld)10.8 %NormalAultman Orrville Hospital Comment on above:Performed By: #### CMP, 87159-5, TSHR, CBCA, 2132-04 #### [facility] ([id number]) [address] [place], [place] [address]Qtmwhcwakdv/100 WBC (Bld)58.9 %NormalAultman Orrville Hospital Comment on above:Performed By: #### CMP, 81319-9, TSHR, CBCA, 2132-04 #### [facility] ([id number]) [address] [place], [place] [address]Qmysnzsu mean volume (Bld) [Entitic vol]8.9 fLNormal7-12 ProMedicThe University of [facility] Medical Center HospitalComment on above:Performed By: #### CMP, 31161-7, TSHR, CBCA, 2132-04 #### [facility] ([id number]) [address] [place], [place] [address]Tjwfufqxu (Bld) [#/Vol]95 10*3/rMIxe893-988YvzQzsqha [place] HospitalComment on above:Performed By: #### CMP, 20611-2, TSHR, CBCA, 2132-04 #### [facility] ([id number]) [address] [place], [place] [address]SUE COUNT4.70 X10E12/LNormal4.10-5.70[facility] Comment on above:Performed By: #### CMP, 67135-9, TSHR, CBCA, 2132-04 #### [facility] ([id number]) [address] [place], [place] [address]KES (Bld) [#/Vol]5.4 10*3/uLNormal4.0-11.0Aultman Orrville HospitalComment on above:Performed By: #### MALCOM, 02377-7, TSHR, CBCA, 2132-04 #### [facility] ([id number]) [address] [place], [place] [address]XFP auto differentialon 55-89-0028Xmxagxcfu (Bld) [#/Vol]0.1 10*3/uLFort Hamilton HospitalBasophils/100 WBC (Bld)0.9 %[facility] HospitalEosinophils (Bld) [#/Vol]0.0 10*3/uLFort Hamilton HospitalEosinophils/100 WBC (Bld)0.7 %[facility] HospitalErythrocyte distribution width (RBC) [Ratio]13.9 %11.5 - 15.0 %[facility] HospitalHematocrit (Bld) [Volume fraction]48.0 %39 - 49 %[facility] HospitalHemoglobin (Bld) [Mass/Vol]16.4 g/dL13.0 - 17.0 g/dLFort Hamilton HospitalInterpretation and review of laboratory resultsAbnormalFort Hamilton HospitalLymphocytes (Bld) [#/Vol]1.6 10*3/uLFort Hamilton HospitalLymphocytes/100 WBC (Bld)28.7 %[facility] HospitalH (RBC) [Entitic mass]34.9 luSxyj54 - 34 [facility] HospitalMCHC (RBC) [Mass/Vol]34.2 g/dL32 - 36 g/dLFort Hamilton HospitalMCV (RBC) [Entitic vol]102 yISiou97 - 100 [facility] CenterMonocytes (Bld) [#/Vol]0.6 10*3/uLFort Hamilton HospitalMonocytes/100 WBC (Bld)10.8 %[facility] HospitalNeutrophils (Bld) [#/Vol]3.2 10*3/uLFort Hamilton HospitalNeutrophils/100 WBC (Bld)58.9 %[facility] HospitalPlatelet mean volume (Bld) [Entitic vol] 8.9 fL7 - 12 [facility] SystemPlatelets (Bld) [#/Vol]95 10*3/uLLow Firelands [facility] Medical Center SystemRBC (Bld) [#/Vol]4.70 10*6/uLFort Hamilton HospitalWBC corrected for nucl RBC Auto (Bld) [#/Vol]5.4Mount [facility]ittany Medical CenterCOMPREHENSIVE METABOLIC PANELon 25-26-9453Udnrkei [Mass/Vol]3.8 g/dLNormal3.2-5.3PMercy Health Anderson HospitalComment on above:Performed By: #### MALCOM, 28184-7, TSHR, CBCA, 2132-04 #### [facility] ([id number]) [address] [place], [place] [address]SFQ [Catalytic activity/Vol]89 U/RApesue83-171IlgQcphbx [place] HospitalComment on above:Performed By: #### MALCOM, 02768-7, TSHR, CBCA, 2132-04 #### [facility] ([id number]) [address] [place], [place] [address]PKT [Catalytic activity/Vol]33 U/LNormal0-40ProMartins Ferry HospitalComment on above:Performed By: #### MALCOM, 53246-1, TSHR, CBCA, 2132-04 #### [facility] ([id number]) [address] [place], [place] [address]Pweil gap [Moles/Vol]10 mmol/LNormal5-15ProAdena Pike Medical Center HospitalComment on above:Performed By: #### CMP, 21163-4, TSHR, CBCA, 2132-04 #### [facility] ([id number]) [address] [place], [place] [address]SAQ [Catalytic activity/Vol]58 U/LHigh0-41ProAdena Pike Medical Center HospitalComment on above:Performed By: #### CMP, 95877-9, TSHR, CBCA, 2132-04 #### [facility] ([id number]) [address] [place], [place] [address]Hiaqnltfz [Mass/Vol]0.7 mg/dLNormal0.3-1.2ProMedCleveland Clinic South Pointe Hospital HospitalComment on above:Performed By: #### MALCOM, 30140-8, TSHR, CBCA, 2132-04 #### [facility] ([id number]) [address] [place], [place] [address]Itepvkw [Mass/Vol]8.9 mg/dLNormal8.5-10.5PKettering Health Dayton HospitalComment on above:Performed By: #### CMP, 09783-7, TSHR, CBCA, 2132-04 #### [facility] ([id number]) [address] [place], [place] [address]Gntdhutl [Moles/Vol]107 mmol/NGsblsi69-129LwbKnxqnr [place] HospitalComment on above:Performed By: #### CMP, 29737-8, TSHR, CBCA, 2132-04 #### [facility] ([id number]) [address] [place], [place] [address]WM1 [Moles/Vol]26 mmol/XYbfoya29-99SnqGxayjh [facility] Comment on above:Performed By: #### CMP, 79245-9, TSHR, CBCA, 2132-04 #### [facility] ([id number]) [address] [place], [place] [address]Vixuyujfyk [Mass/Vol]0.89 mg/dLNormal0.60-1.30ProMartins Ferry HospitalComment on above:Result Comment: METHOD TRACEABLE TO IDMS STANDARD Performed By: #### MALCOM, 95646-2, TSHR, CBCA, 2132-04 #### [facility] ([id number]) [address] [place], [place] [address]oNVG (CKD-EPI) NON-RACE DEPENDENT>90Normal>59ProMartins Ferry HospitalComment on above:Result Comment: Reported eGFR is based on the CKD-EPI 2020 equation that does not use a race coefficient.Performed By: #### MALCOM, 02442-5, TSHR, CBCA, 2132-04 #### [facility] ([id number]) [address] [place], [place] [address]Wsqnvev [Mass/Vol]93 mg/sFObmfqo69-89MveJlcluk [facility] Comment on above:Performed By: #### MALCOM, 41684-5, TSHR, CBCA, 2132-04 #### [facility] ([id number]) [address] [place], [place] [address]Ogvaqnkfx [Moles/Vol]3.7 mmol/LNormal3.5-5.0ProMartins Ferry HospitalComment on above:Performed By: #### MALCOM, 24446-6, TSHR, CBCA, 2132-04 #### [facility] ([id number]) [address] [place], [place] [address]Qypkwos [Mass/Vol]6.6 g/dLNormal6.0-8.0[facility] Comment on above:Performed By: #### MALCOM, 74450-3, TSHR, CBCA, 2132-04 #### [facility] ([id number]) [address] [place], [place] [address]Wwuyla [Moles/Vol]143 mmol/LViolgg529-974FlhWbzvud [place] HospitalComment on above:Performed By: #### MALCOM, 31368-2, TSHR, CBCA, 2132-04 #### [facility] ([id number]) [address], [address] [place], [place] [address]Atha nitrogen [Mass/Vol]10 mg/dLNormal5-23ProMartins Ferry HospitalComment on above:Performed By: #### MALCOM, 05962-9, TSHR, CBCA, 2132-04 #### [facility] ([id number]) [address], [address] [place], [place] [address]Trrhbvdsu (Vitamin B12) [Mass/Vol]on 58-30-0599QppEzmzylOhio State Health SystemComprehensive metabolic panelon 23-81-9198Gasubvv [Mass/Vol]3.8 g/dL3.2 - 5.3 g/dLMercy Memorial Hospital Health SystemALP [Catalytic activity/Vol]89 U/L39 - 130 U/L [facility] SystemALT No additional P-5'-P [Catalytic activity/Vol]33 U/L0 - 40 U/[facility]ica Health SystemAnion gap [Moles/Vol]10 mmol/L5 - 15 mmol/L [facility] SystemAST [Catalytic activity/Vol]58 U/LHigh0 - 41 U/LPrDenver Springs Health SystemBilirubin [Mass/Vol]0.7 mg/dL0.3 - 1.2 mg/dLFirelands Regional Medical Center System Calcium [Mass/Vol]8.9 mg/dL8.5 - 10.5 mg/dLFirelands Regional Medical Center SystemChloride [Moles/Vol]107 mmol/L98 - 109 mmol/[facility]ica Health SystemCO2 [Moles/Vol]26 mmol/L22 - 32 mmol/[facility] SystemCreatinine [Mass/Vol]0.89 mg/dL0.60 - 1.30 mg/dLFort Hamilton HospitalComment on above:METHOD TRACEABLE TO IDMS STANDARDeGFR (CKD-EPI)non-race dependent- [facility] CenterComment on above: Reported eGFR is based on the CKD-EPI 2020 equation that does not use a race coefficient. Glucose [Mass/Vol]93 mg/dL65 - 99 mg/dLFort Hamilton HospitalPotassium [Moles/Vol]3.7 mmol/L3.5 - 5.0 mmol/[facility] SystemProtein [Mass/Vol] 6.6 g/dL6.0 - 8.0 g/dLCarteret Health Careodium [Moles/Vol]143 mmol/L134 - 146 mmol/[facility] HospitalUrea nitrogen [Mass/Vol]10 mg/dL5 - 23 mg/dL [facility] HospitalLipid 1996 panelon 58-15-2537Bsijhouhotf [Mass/Vol]103 mg/hMGsu978 - 200 mg/dLFort Hamilton HospitalCholesterol in HDL [Mass/Vol]63 mg/dL39 - PINF mg/dLFort Hamilton HospitalComment on above: HDL <40 mg/dL - High Risk HDL > or = 40mg/dL- Desirable HDL >60 mg/dL - Negative Risk Cholesterol in LDL [Mass/Vol]5 mg/dLNINF - 130 mg/dLFort Hamilton Hospital Comment on above: LDL <100 mg/dL - Desirable LDL >160 mg/dL - High Risk Cholesterol in VLDL [Mass/Vol]35 mg/dLHigh0 - 30 mg/dLFort Hamilton Hospital Cholesterol.total/Cholesterol in HDL [Mass ratio]1.6 {ratio}1.0 - 5.0[facility] HospitalTriglyceride [Mass/Vol]173 mg/oVLjvj09 - 150 mg/dLFort Hamilton HospitalCholesterol [Mass/Vol]103 mg/nOFlp719-491GqfZuxkbeAultman Orrville HospitalComment on above:Performed By: #### CMP, 09631-2, TSHR, CBCA, 2132-9 #### [facility] ([id number]) [address], [address] [place], [place] [address]Zqdwsozafqm in HDL [Mass/Vol]63 mg/dLNormal>39ProMediOhio State Harding Hospital HospitalComment on above:Result Comment: HDL <40 mg/dL - High Risk HDL > or = 40mg/dL- Desirable HDL >60 mg/dL - Negative Risk Performed By: #### MALCOM, 70373-5, TSHR, CBCA, 2132-04 #### [facility] ([id number]) [address], [address] [place], [place] [address]Biitegturhd in LDL [Mass/Vol]5 mg/dLNormal<130ProAdena Pike Medical Center HospitalComment on above:Result Comment: LDL <100 mg/dL - Desirable LDL >160 mg/dL - High Risk Performed By: #### MALCOM, 34352-2, TSHR, CBCA, 2132-04 #### [facility] ([id number]) [address], [address] [place], [place] [address]Zbuqxqnefwg in VLDL [Mass/Vol]35 mg/dLHigh0-30ProAdena Pike Medical Center HospitalComment on above:Performed By: #### MALCOM, 22513-6, TSHR, CBCA, 2132-04 #### [facility] ([id number]) [address], [address] [place], [place] [address]XSKXZZQCMPB:HDL1.8Xlemap5.0-5.0ProAdena Pike Medical Center HospitalComment on above:Performed By: #### MALCOM, 04798-7, TSHR, CBCA, 2132-04 #### [facility] ([id number]) [address] [place], [place] [address]Gpwnncdynsnu [Mass/Vol]173 mg/mQIxnl58-314LvtCrdfwfMartins Ferry HospitalComment on above:Performed By: #### MALCOM, 97943-9, TSHR, CBCA, 2132-04 #### [facility] ([id number]) [address] [place], [place] [address]Mt Panel Informationon 25-26-0190Ihihhlgitnlmog and review of laboratory resultsAbnormalMount Nittany Medical CenterTS WITH REFLEXon 19-78-3742RNU3.69 uIU/mLNormal0.49-4.67[facility] Comment on above:Performed By: #### MALCOM, 40377-8, TSHR, CBCA, 2132-04 #### [facility] ([id number]) [address] [place], [place] [address]OMP with Reflexon 48-12-9435HRY Qn1.69 m[IU]/LProMedLehigh Valley Hospital–Cedar CrestVITAMIN B12on 46-41-9292Jfchpnpqh (Vitamin B12) [Mass/Vol]337 pg/mMExwbcs839-631YumCudppv [facility] Medical CenterComment on above: Performed By: #### MALCOM, 12543-3, TSHR, CBCA, 2132-04 #### [facility] ([id number]) [address] [place], [place] [address]Qfugtsw B12on 89-35-9229Vaygiqbht (Vitamin B12) [Mass/Vol]337 pg/mL180 - 914 pg/mLFort [facility] Hospital Vital Signs Date TimeVital SignValuePerforming ZjlqesqfoUkvvvukb74-31-0939 14:55-0400Body iwxjeo539.8 cmRogelio DAVISM Work Phone: NOThree Rivers HealthcareOsdusuzdzw09-69-6058 14:55-0400Body mass index (BMI) [Ratio]27.26 kg/j8Vhjckhaf Brown DPM Work Phone: [facility] SystemEljqrlagii99-10-1268 14:55-0400Body kdpukn95.18 kgNicholas Brown DPM Work Phone: [facility] SystemNabjcdyuml93-65-6770 14:55-0400Respiratory rate16 /minNicholas Brown DPM Work Phone: [facility] SystemGimrabcqxz51-06-0988 15:27-0400Body .8 cmNicholas Brown DPM Work Phone: [facility] SystemQdgichlubf60-99-0377 15:27-0400Body mass index (BMI) [Ratio]27.26 kg/e4Zhzformw Brown DPM Work Phone: [facility] SystemInfddbovyt05-08-9820 15:27-0400Body svygzc91.18 kgNicholas Brown DPM Work Phone: [facility] SystemCxqidopmxe08-45-2065 15:27-0400Respiratory rate18 /minNicholas Brown DPM Work Phone: [facility] SystemWghgvfjgfg53-45-9329 15:57-0400Body fvmmri681.8 cmNicholas Brown DPM Work Phone: [facility] SystemAircwaizuu05-69-6499 15:57-0400Body mass index (BMI) [Ratio]27.26 kg/b3Fritcxcs Brown DPM Work Phone: [facility] SystemPdvewwqnkj52-29-6250 15:57-0400Body cnkiyg70.18 kgNicholas Brown DPM Work Phone: [facility] SystemNanogpuzru07-96-7284 15:57-0400Respiratory rate16 /minNicholas Brown DPM Work Phone: [facility] SystemTnoaqazhuv15-13-9522 15:51-0400Body .8 cmNicholas Brown DPM Work Phone: [facility] SystemNkouxfwjkg46-57-4729 15:51-0400Body mass index (BMI) [Ratio]27.26 kg/e1Yzrjbwhj Brown DPM Work Phone: [facility] SystemZvybgayxhd85-17-1578 15:51-0400Body .18 kgRogelio Conway DPM Work Phone: [facility] SystemZcjgonhrjp00-38-5350 15:51-0400Respiratory rate16 /minRogelio Conway DPM Work Phone: [facility] SystemIvfhlggkrg18-45-0208 15:10-0400Diastolic blood guddfvez50 mm[Hg]Cris Singh DO Work Phone: [facility] Dsqmpb61-38-1426 15:10-0400Systolic blood txllakry153 mm[Hg]Cirs Singh DO Work Phone: [facility]07-23-2025 14:45-0400Body yvzcmi464.3 cmJorosa Osegueras DO Work Phone: [facility] Enejap60-77-5113 14:45-0400Body mass index (BMI) [Ratio]27.6 kg/m2Jorosa Osegueras DO Work Phone: [facility] Xkmvre10-88-9783 14:45-0400Body jrryysasipg91.01 [degF]Cris Singh DO Work Phone: [facility] Jxdwgh38-67-1455 14:45-0400Body .72 kgCris Osegueras DO Work Phone: [facility] Doivbb95-48-2958 14:45-0400Heart rate 63 /minCris Osegueras DO Work Phone: [facility] Beqfod70-90-5123 14:45-0400 Respiratory rate18 /minCris Osegueras DO Work Phone: [facility] Gxmtsv96-77-5276 14:45-2279OsD5% (BldA) [Mass fraction]96 %Cris Singh DO Work Phone: [facility] Jvzgfv85-70-8751 14:13-0400Diastolic blood tatwzses45 mm[Hg]Jus Wisdom MD Work Phone: [facility]07-22-2025 14:13-0400Heart rate68 /min Jus Wisdom MD Work Phone: [facility]07-22-2025 14:13-0400Systolic blood wjuhbljq241 mm[Hg]Jus Wisdom MD Work Phone: [facility]06-26-2025 15:06-0400Body agtpll660.8 cmRogelio Reagan DPM Work Phone: [facility] SystemPchyinheov88-12-7493 15:06-0400Body mass index (BMI) [Ratio]27.26 kg/x6Lxwaeiyg Reagan DPM Work Phone: [facility] SystemCkzulsrhaz88-25-7537 15:06-0400Body enacrw17.18 kgVondaary Conway DPM Work Phone: [facility] SystemVyvsebrflj77-67-3230 15:06-0400Respiratory rate18 /minVondaary Conway DPM Work Phone: [facility] SystemZcubdmxkkj33-15-4335 13:33-0400Body cuvoqs067.3 cmNancyrosa Osegueras DO Work Phone: [facility]06-04-2025 13:33-0400Body mass index (BMI) [Ratio]26.51 kg/m2Cris Osegueras DO Work Phone: [facility]06-04-2025 13:33-0400Body qlsbielaqqh73.8 [degF]Cris Osegueras DO Work Phone: [facility]06-04-2025 13:33-0400Body igxgnf77.18 kgNancyrosa Horanhas DO Work Phone: [facility]06-04-2025 13:33-0400Diastolic blood reizftht06 mm[Hg]Cris Osegueras DO Work Phone: [facility]06-04-2025 13:33-0400Heart rate 68 /minCris Ana Rosas DO Work Phone: [facility] Iqzctt16-09-6645 13:33-0400 Respiratory rate20 /minCris Singh DO Work Phone: [facility] Xwaikx75-89-8798 13:33-3450LlX7% (BldA) [Mass fraction]97 %Cris Singh DO Work Phone: [facility]06-04-2025 13:33-0400Systolic blood jfgnxpna273 mm[Hg]Cris Singh DO Work Phone: [facility] Roblpn88-54-2565 13:35-0400Body rdqoqy897.3 cmCris Singh DO Work Phone: [facility]05-13-2025 13:35-0400Body mass index (BMI) [Ratio]25.53 kg/m2Cris Singh DO Work Phone: [facility]05-13-2025 13:35-0400Body ksvwajflcaz57.4 [degF]Cris Singh DO Work Phone: [facility] Gvpflr13-40-8996 13:35-0400Body hvherm63.01 kgCris Singh DO Work Phone: [facility] Bblnjx20-59-5428 13:35-0400Diastolic blood kpushrok18 mm[Hg]Cris Singh DO Work Phone: [facility] Nwpdke66-33-9160 13:35-0400Heart rate 81 /Maia Singh DO Work Phone: [facility] Zmcpls63-48-1391 13:35-0400 Respiratory rate20 /Maia Singh DO Work Phone: [facility]05-13-2025 13:35-6401UcJ8% (BldA) [Mass fraction]98 %Cris Singh DO Work Phone: [facility]05-13-2025 13:35-0400Systolic blood brhpaqif301 mm[Hg]Cris Singh DO Work Phone: [facility]05-01-2025 13:04-0400Body ccarpr772.8 cmAlexa Pacenta DEVELOPMENT PLANNER.LUMP RECEIVER Work Phone: [facility]05-01-2025 13:04-0400Body mass index (BMI) [Ratio]23.66 kg/m7Satki Pacenta DEVELOPMENT PLANNER.LUMP RECEIVER Work Phone: [phone]05-01-2025 13:04-0400Body temperature 97.59 [degF]Ernie Pacenta DEVELOPMENT PLANNER.LUMP RECEIVER Work Phone: [phone]05-01-2025 13:04-0400Body vbinbd63.8 kgAlexa Pacenta DEVELOPMENT PLANNER.LUMP RECEIVER Work Phone: [phone]05-01-2025 13:04-0400Diastolic blood nsfftruz91 mm[Hg]Ernie Pacenta DEVELOPMENT PLANNER.LUMP RECEIVER Work Phone: [phone]05-01-2025 13:04-0400Heart rate67 /min Ernie Pacenta DEVELOPMENT PLANNER.LUMP RECEIVER Work Phone: [phone]05-01-2025 13:04-0400Respiratory rate 18 /minAlexa Pacenta DEVELOPMENT PLANNER.LUMP RECEIVER Work Phone: [phone]05-01-2025 13:04-0400Systolic blood vpvmvnav751 mm[Hg]Ernie Pacenta DEVELOPMENT PLANNER.LUMP RECEIVER Work Phone: [phone]03-25-2025 13:46-0400Body .8 cmPacc 1[facility] ClinicComment on above:commicated by sugzrkr51-27-3778 13:46-0400Body mass index (BMI) [Ratio]23.68 kg/m2Pacc 1[facility] 10-25-2024 13:46-0400Body mtwmlaannfg83.9 [degF]Pacc 1[place] Xrdyxn63-00-6175 13:46-0400Body .84 kgPacc 1[facility] ClinicComment on above:commicated by [phone] 13:46-0400Diastolic blood fgnkekpk64 mm[Hg]Pacc 1[facility] Grmpas26-06-4575 13:46-0400Heart rate80 /minPacc 1[facility] Hrdteq32-45-3746 13:46-6187SxE5% (BldA) [Mass fraction]95 %Pac 1[facility] Tfmcat04-02-0768 13:46-0400Systolic blood frehanrw082 mm[Hg]Pacc 1[place] Bhfyhi71-30-5490 13:19-0400Diastolic blood zqohzhwb02 mm[Hg]Jus Wisdom MD Work Phone: [phone]03-25-2025 13:19-0400Heart rate68 /min Jus Wisdom MD Work Phone: [phone]03-25-2025 13:19-0400Systolic blood mm[Hg]Jus Wisdom MD Work Phone: [phone]03-11-2025 09:32-0400Diastolic blood pgqweagl29 mm[Hg]Jus Wisdom MD Work Phone: [phone]03-11-2025 09:32-0400Heart rate67 /min Jus Wisdom MD Work Phone: [phone]03-11-2025 09:32-0400Systolic blood mm[Hg]Jus Wisdom MD Work Phone: [phone]02-24-2025 15:41-0500Body mass index (BMI) [Ratio]23.1 kg/t1PumimSavita Alcantara [employer] Work Phone: NOThree Rivers HealthcareIqhrlahars86-38-0821 15:41-0500Body kxonwl35.03 kgSajennifer Alcantara [employer] Work Phone: NOThree [facility] HealthcareAosdwfbvcm69-72-9915 15:41-0500Diastolic blood notuyxek35 mm[Hg]Savita Alcantara [employer] Work Phone: noThree Rivers HealthcareYnvqrcfevs28-37-8068 15:41-0500Heart rate72 /min Savita Alcantara [employer] Work Phone: NOThree Rivers HealthcareSzskdguosf80-11-8699 15:41-9653CkZ9% (BldA) [Mass fraction]96 %Savita Alcantara [employer] Work Phone: noThree Rivers HealthcareZmeeslcikg78-46-9954 15:41-0500Systolic blood duztrtis278 mm[Hg]Savita Alcantara [employer] Work Phone: noThree Rivers HealthcareKsmfcdgsbw89-53-3501 12:51-0500Diastolic blood zinydlre33 mm[Hg]Ernie Pacenta DEVELOPMENT PLANNER.LUMP RECEIVER Work Phone: [facility]01-23-2025 12:51-0500Heart rate66 /min Ernie Pacenta DEVELOPMENT PLANNER.LUMP RECEIVER Work Phone: [phone]01-23-2025 12:51-4426KsN3% (BldA) [Mass fraction]97 %Ernie Pacenta DEVELOPMENT PLANNER.LUMP RECEIVER Work Phone: [phone]01-23-2025 12:51-0500Systolic blood bgherper580 mm[Hg]Ernie Pacenta DEVELOPMENT PLANNER.LUMP RECEIVER Work Phone: [phone]01-20-2025 13:44-0500Body .3 cmJorosa Ana Rosas DO Work Phone: [facility]01-20-2025 13:44-0500Body mass index (BMI) [Ratio]24.21 kg/m2Cris Ana Rosas DO Work Phone: [facility]01-20-2025 13:44-0500Body ddjsxbbgojh66.4 [degF]Cris Osegueras DO Work Phone: [facility]01-20-2025 13:44-0500Body cvminq33.74 kgCris Ana Rosas DO Work Phone: [facility]01-20-2025 13:44-0500Diastolic blood ftpzatwu50 mm[Hg]Cris Ana Rosas DO Work Phone: [facility]01-20-2025 13:44-0500Heart rate 72 /minJorosa Singh DO Work Phone: [facility]01-20-2025 13:44-6294IcH2% (BldA) [Mass fraction]98 %Cris Singh DO Work Phone: [facility]01-20-2025 13:44-0500Systolic blood vhathzwk474 mm[Hg]Cris Singh DO Work Phone: [facility]01-07-2025 14:13-0500Body mass index (BMI) [Ratio]24.97 kg/r8UyeugSavita Alcantara [employer] Work Phone: [facility] SystemYymwjxikgb35-11-1617 14:13-0500Body zbisea96.93 kgSajennifer Alcantara [employer] Work Phone: [facility] SystemFdpxwnoqwl08-61-9769 14:13-0500Diastolic blood pmdwgwdy16 mm[Hg]Savita Kaplanoll [employer] Work Phone: [facility] SystemHjkzefwsvg77-49-6463 14:13-0500Systolic blood zsueqyrq665 mm[Hg]Savita Alcantara [employer] Work Phone: [facility] SystemTmipdugsxt15-15-5368 13:09-0400Body fisqyz934.8 cmPaola Serrano MD Work Phone: [facility] SystemKjiwmbcrfb69-43-3265 13:09-0400Body mass index (BMI) [Ratio]23.39 kg/w6KpkghcPaola Serrano MD Work Phone: [facility] SystemLzfghwwhty52-28-3521 13:09-0400Body esubex70.94 kgPaola Serrano MD Work Phone: [facility] SystemXocrrxlshg53-43-2733 13:09-0400Diastolic blood bzvzplqa70 mm[Hg]Paola Serrano MD Work Phone: [facility] SystemGfajnnmjcm02-36-0040 13:09-0400Systolic blood ntfjndzy418 mm[Hg]Paola Serrano MD Work Phone: [facility] SystemXwdhtquaaf63-92-1429 12:36-0400Body .3 cmJorosa Osegueras DO Work Phone: [facility] Fnzcka23-97-9889 12:36-0400Body mass index (BMI) [Ratio]22.79 kg/m2Cris Osegueras DO Work Phone: [facility] Mtgmgt29-37-7843 12:36-0400Body csfjqnlziii42.01 [degF]Cris Singh DO Work Phone: [facility] Djukde39-31-3348 12:36-0400Body .12 kgCris Osegueras DO Work Phone: [facility]10-17-2024 12:36-0400Diastolic blood ttkvuhtm99 mm[Hg]Cris Singh DO Work Phone: [facility] Matqym31-95-4696 12:36-0400Heart rate 83 /minCris Osegueras DO Work Phone: [facility] Lrxbqn38-46-4609 12:36-0400 Respiratory rate18 /minCris Singh DO Work Phone: [facility]10-17-2024 12:36-6074CxU1% (BldA) [Mass fraction]97 %Cris Singh DO Work Phone: [facility] Vvczkf15-48-8182 12:36-0400Systolic blood hsoiczbx639 mm[Hg]Cris Singh DO Work Phone: [facility] Nprlry91-32-1934 14:09-0400Body ohscmk612.8 cmSmervat Alcantara [employer] Work Phone: noThree [facility] HealthcareYnxtzbrujk65-84-6609 14:09-0400Body mass index (BMI) [Ratio]23.56 kg/t5HyizxSavita Alcantara [employer] Work Phone: noThree [facility] HealthcareMdwcxmbhdf59-45-4016 14:09-0400Body joypcc91.48 kgSajennifer Alcantara [employer] Work Phone: noThree [facility] HealthcareEtcngbnlvm13-24-4489 14:09-0400Diastolic blood yruqglrz60 mm[Hg]Savita Alcantara [employer] Work Phone: noThree [facility] HealthcareFlsprbakuk41-87-3754 14:09-0400Heart rate70 /min Savita Alcantara [employer] Work Phone: noThree [facility] HealthcareSflbhflmte93-63-4024 14:09-0839NrA3% (BldA) [Mass fraction]97 %Savita Alcantara [employer] Work Phone: noThree [facility] HealthcareUdotwruyts41-89-7608 14:09-0400Systolic blood hlhooyyk898 mm[Hg]Savita Alcantara [employer] Work Phone: noThree [facility] HealthcareIemieevvub71-43-8243 14:56-0400Body isfzdo729.3 cmJorosa Yuholgers DO Work Phone: [facility] HospitalLil[facility] Ugqhpz80-85-8352 14:56-0400Body mass index (BMI) [Ratio]22.9 kg/m2Cris Yuholgers DO Work Phone: [facility] HospitalL[facility] Qhvryn47-87-0982 14:56-0400Body thtoynrrjcw52.81 [degF]Cris Osegueras DO Work Phone: [facility] Krbhwz58-08-6477 14:56-0400Body ckytxl33.48 kgJorosa Yuholgers DO Work Phone: [facility] Jrepea89-76-0731 14:56-0400Diastolic blood siyboqam30 mm[Hg]Cris Osegueras DO Work Phone: [facility] Rfthxw07-43-7507 14:56-0400Heart rate 75 /minCris Osegueras DO Work Phone: [facility] Eqalzs25-09-3278 14:56-0400 Respiratory rate18 /minJorosa Osegueras DO Work Phone: [facility] Rfcear39-42-9627 14:56-0690CnQ3% (BldA) [Mass fraction]98 %Cris Singh DO Work Phone: [facility] HospitalTap[facility] Xpcpih52-15-4043 14:56-0400Systolic blood kuggkqgh692 mm[Hg]Cris Singh DO Work Phone: [facility] Aiagoo55-92-4450 13:49-0400Body ihelio366.3 cmCris Singh DO Work Phone: [facility] Ynrios26-32-0795 13:49-0400Body mass index (BMI) [Ratio]24.13 kg/m2Cris Singh DO Work Phone: [facility] Lvcmjn30-30-6445 13:49-0400Body qsurengcuoq03.2 [degF]Cris Singh DO Work Phone: [facility] Yfjfxe48-67-3428 13:49-0400Body taoiak39.47 kgJorosa Singh DO Work Phone: [facility] Fvxjxb02-20-1014 13:49-0400Diastolic blood vgnkmtie25 mm[Hg]Cris Singh DO Work Phone: [facility] Rucgor45-70-7891 13:49-0400Heart rate 72 /minJorosa Singh DO Work Phone: [facility] Suhrej54-70-8870 13:49-8128AqF8% (BldA) [Mass fraction]97 %Cris Singh DO Work Phone: [facility] Qpmfre77-11-9416 13:49-0400Systolic blood mm[Hg]Cris Singh DO Work Phone: [facility] HospitalLil[facility] Guqgig11-75-5018 11:25-0400Body .3 cmCris Singh DO Work Phone: [facility] HospitalL[facility] Udebpj43-70-0637 11:25-0400Body mass index (BMI) [Ratio]22.98 kg/m2Cris Singh DO Work Phone: [facility] Mmwuxe28-41-2367 11:25-0400Body nceolmvqnyw42.81 [degF]Cris Singh DO Work Phone: [facility] Zhjevz18-66-7953 11:25-0400Body muzktu62.75 kgCris Singh DO Work Phone: [facility] [employer] Lepdky93-51-1658 11:25-0400Diastolic blood cjnutibv99 mm[Hg]Cris Singh DO Work Phone: [facility] [employer] Pgnrgc41-80-4758 11:25-0400Heart rate 73 /minCris Singh DO Work Phone: [facility] [employer] Swmwyr48-52-6693 11:25-0400 Respiratory rate18 /minCris Singh DO Work Phone: [facility] [employer] Dclwrs43-75-3137 11:25-3938XrZ6% (BldA) [Mass fraction]97 %Cris Singh DO Work Phone: [facility] [employer] Ljranl10-02-6958 11:25-0400Systolic blood qtssyrbr672 mm[Hg]Cris Singh DO Work Phone: [facility] [employer] Rvdfup33-84-5154 13:33-0400Body .3 cmJorosa Singh DO Work Phone: [facility] [employer] Umlszy45-04-7392 13:33-0400Body mass index (BMI) [Ratio]22.93 kg/m2Cris Singh DO Work Phone: [facility] [employer] Bvedic73-09-0096 13:33-0400Body upspdschxex20.01 [degF]Cris Singh DO Work Phone: [facility] [employer] Afqjog37-55-4573 13:33-0400Body pnuhco03.57 kgCris Singh DO Work Phone: [facility] [employer] Rsxmld52-35-8823 13:33-0400Diastolic blood ivmvpyzi75 mm[Hg]Cris Singh DO Work Phone: [facility] Ccvrsp68-92-9699 13:33-0400Heart rate 122 /minJorosa Singh DO Work Phone: [facility] Pxdlxj36-17-5703 13:33-8683KrO8% (BldA) [Mass fraction]98 %Cris Singh DO Work Phone: [facility] Hayypt02-11-4034 13:33-0400Systolic blood uqymkfvo438 mm[Hg]Cris Singh DO Work Phone: [facility] Encounters Encounter DateEncounter [facility] ProviderFacilityStart: 06-09-2025 End: [id number] L Yimi DO Work Phone: [facility] - Family MedicineStart: 05-04-2025 End: [id number] [facility] MedicineComment on above:Localized osteoarthritis of lumbar spineStart: 04-06-2025 End: 32-00-1564Quunqn outpatient visit 15 minutesRogelio Conway DPM Work Phone: N[facility] CI PODIATRYComment on above:Hav (hallux abducto valgus), left (Primary Dx); Pain due to onychomycosis of toenails of both feet; Acquired deformity of left toeStart: 04-06-2025 End: 28-97-8367jtyofbwktzBZKENAUS A BROWNNot AvailableStart: 04-06-2025 End: 22-77-4815Durcqw flowsheetRogelio Conway DPM Work Phone: noms CI PODIATRYStart: 04-06-2025 End: 76-82-2689Ipebuecarson Conway DPM Work Phone: noms CI PODIATRYStart: 03-30-2025 End: 03-36-7535Vzzqav outpatient visit 15 minutesRogelio Conway DPM Work Phone: noms CI PODIATRYComment on above:Acquired deformity of left toe (Primary Dx)Start: 03-30-2025 End: 52-54-2520rqlfaauuhtSGKNTKTE A BROWNNot AvailableStart: 03-30-2025 End: 81-84-6438Ooapho flowsheetNicholas A Brown DPM Work Phone: noMS CI PODIATRYStart: 03-30-2025 End: 44-82-3341Eomhou flowsheetNicholas A Brown DPM Work Phone: noms CI PODIATRYStart: 03-16-2025 End: 83-66-7296Amirlp follow up visit related to original pxRogelio Conway DPM Work Phone: noms CI PODIATRYComment on above:Acquired deformity of left toe (Primary Dx)Start: 03-16-2025 End: 13-30-6187svdfgldhgnHCQDZQHC A BROWNNot AvailableStart: 03-16-2025 End: 73-51-6093Btcpyj flowsheetNicholas A Brown DPM Work Phone: noms CI PODIATRYStart: 03-16-2025 End: 70-49-6887Qwgdqp flowsheetNicholas A Brown DPM Work Phone: noms CI PODIATRYStart: 03-14-2025 End: 42-64-3378WxuwgmUmwl L Yuhas DO Work Phone: [facility] - Family MedicineComment on above:Localized osteoarthritis of lumbar spineStart: 03-08-2025 End: 10-02-0396Xqqejwqzq encounterRogelio Conway DPM Work Phone: noms CI PODIATRYStart: 03-08-2025 End: 03-17-4291lmsvywbhxhVVO Rogelio ConwayFacility:FTMCStart: 03-02-2025 End: 77-01-0828Tkhlok outpatient visit 25 minutesRogelio Conway DPM Work Phone: noms CI PODIATRYComment on above:Acquired deformity of left toe (Primary Dx)Start: 03-02-2025 End: 15-51-8932cfsuzatxyrQHFPUALV A BROWNNot AvailableStart: 03-02-2025 End: 67-15-0944Csjwoi flowsheetNicangelicary Simon Brown DPM Work Phone: noMS CI PODIATRYStart: 03-02-2025 End: 90-23-3078Hwgkbj flowsheetNicangelicary Simon Reagan DPM Work Phone: noms CI PODIATRYStart: 02-22-2025 End: 07-82-0870Gwikos outpatient visit 25 minutesCris Singh DO Work Phone: [facility] - Family MedicineComment on above:Hammer toe of left foot (Primary Dx); Intractable chronic post-traumatic headache; Tobacco abuseStart: 02-22-2025 End: 14-10-8500PhvdywJucv L Yuhas DO Work Phone: [facility] - Family MedicineComment on above:Intractable chronic post-traumatic headacheStart: 02-21-2025 End: 92-46-2521Ugbdps follow up visit related to original pxJus Wisdom MD Work Phone: [facility] [place] FHCComment on above: Cervical spondylosis with myelopathy (Primary Dx)Start: 02-21-2025 End: 81-53-4895fabivhvtpoWIVCB BASHIR BUTTFacility:[facility] Start: 05-55-8821Ipizlvupw for other preprocedural examinationJUSTIN BOO [facility] CenterStart: 02-21-2025 End: 25-71-0759Dqyckwa encounter statusXr 1Clevelcarolinas continuecare [facility] ClinicStart: 02-21-2025 End: 65-19-8505Mkhtkzerim hospital visit by physicianXr [facility] 1Xray [place] FHCComment on above:Cervical spinal stenosis [M48.02]Start: 02-13-2025 End: 14-07-8152Nntgbeahc encounterBilal Laura Wisdom MD Work Phone: [facility] [place] FHCComment on above: Appointment infoStart: 02-07-2025 End: 92-76-2130Extrwc follow up visit related to original Inessa Rankin APRNMarcelaLUMP RECEIVER Work Phone: [facility] InstituteComment on above:Cervical spondylosis with myelopathy (Primary Dx)Start: 02-06-2025 End: 86-68-9307AngzsdNsjm L Yuhas DO Work Phone: [facility] - Family MedicineComment on above:Intractable chronic post-traumatic headache (Primary Dx); Tobacco abuseStart: 01-26-2025 End: 58-95-5769Savvdg outpatient new 30 minutesNicemely Conway DPM Work Phone: [facility] CI PODIATRYComment on above:Hav (hallux abducto valgus), left (Primary Dx); Acquired deformity of left toe; Pain due to onychomycosis of toenails of both feetStart: 01-26-2025 End: 78-50-9933icfysevnyuOXMRAQAC A BROWNNot AvailableStart: 01-26-2025 End: 55-98-5403Ddnebu flowsheetNicemely Conway DPM Work Phone: [facility] CI PODIATRYStart: 01-26-2025 End: 94-09-8001Cpwfef flowsheetRogelio Conway DPM Work Phone: noMS CI PODIATRYStart: 01-24-2025 End: 94-64-7073Cvowstrli encounterBilal Laura Wisdom MD Work Phone: Neu[facility] [place] FHCStart: 01-20-2025 End: 55-22-3584EphieyIvozs Bashir Butt MD Work Phone: NeurologyComment on above:Refill RequestStart: 01-07-2025 End: 98-70-9265GecoyySzmg L Yuhas DO Work Phone: [facility] - Family MedicineComment on above:Localized osteoarthritis of lumbar spineStart: 01-04-2025 End: 17-87-5021Dddspf outpatient visit 15 minutesCris Osegueraromero DO Work Phone: [facility] Medicine - Family MedicineComment on above:Hammer toe of left foot (Primary Dx)Start: 01-04-2025 End: 37-28-1183cnfflnzpyrTWTRFlint River Hospital Ambulatory PPGStart: 12-28-2024 End: 82-04-7648Fohopttdp encounterLing Main CMAProMedica Physicians Internal Medicine - Family MedicineStart: 12-27-2024 End: 24-05-3994FxrotzHwpcd Bashir Butt MD Work Phone: NeurologyComment on above:Refill RequestStart: 12-14-2024 End: 49-01-7816Xbureuxcw encounterBilmonster Wisdom MD Work Phone: NeurologyComment on above:Medication ProblemStart: 12-13-2024 End: 34-99-8733Fsmtog outpatient visit 25 minutesNancyrosa Kavitha Singh DO Work Phone: [facility] Internal Medicine - Family MedicineComment on above: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 (Primary Dx); B12 deficiency; Ataxia following other nontraumatic intracranial hemorrhage; 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, subsequent encounter; Tobacco abuse; Hyperlipidemia, unspecified hyperlipidemia typeStart: 12-13-2024 End: 80-73-6326bguuczlyfrHAZXFlint River Hospital Ambulatory PPGStart: 12-11-2024 End: 25-18-6384VroqmrTbze L Yuhas DO Work Phone: [facility] Internal Medicine - Family MedicineComment on above:Intractable chronic post-traumatic headacheStart: 12-01-2024 End: 21-90-9620Krnwfgv encounter procedureAlexa Pacenta LUMP RECEIVER Work Phone: Spine InstituteComment on above:Cervical spondylosis with myelopathy (Primary Dx); Acute post-operative painStart: 12-01-2024 End: 46-81-9658qdowcbszwuLCSGX PACENTAFacility:[facility] Ohiotart: 11-30-2024 End: 73-90-4929XgpqqmQscytam Boggs CMAProMedica Physicians Internal Medicine - Family MedicineComment on above:B12 deficiencyRefill RequestStart: 11-22-2024 End: 01-93-0392Wrxaaijto encounterJus Wisdom MD Work Phone: NeurologyComment on above:Patient Update; Patient Questionhome care referralsStart: 11-21-2024 End: 39-52-6221NvrzwdBvzz L Yuhas DO Work Phone: [facility] - Family MedicineComment on above:Tobacco abuseStart: 11-16-2024 End: 86-41-8435Xnbfqbefar and management of inpatientBILAL LAURA BUTT [facility] Campustart: 11-14-2024 End: 90-61-3436Pvdbudb evaluation of patient and reportDevaughn Vazquez RN Work Phone: [facility] InstituteComment on above:Spinal stenosis in cervical region (Primary Dx)Start: 11-14-2024 End: 48-42-9546ozqwdjtyzbIYAAF LAURA BUTTFacility:[facility] Start: 11-01-2024 End: 78-41-7673Imfznjjoz encounterJus Wisdom MD Work Phone: [facility] InstituteStart: 2024 End: 37-67-9127sjeziwwdluQgvdx Mc Coy RNMilan [facility] Hospital3Start: 10-25-2024 End: 15-04-3478Kjzrth outpatient visit 15 minutesJus Wisdom MD Work Phone: [facility] FHCComment on above: Cervical spinal stenosis (Primary Dx); Cervical spondylosis with myelopathyStart: 10-25-2024 End: 93-80-2679yjqhhbqsioSXEOI LAURA BUTTFacility:[facility] Start: 10-25-2024 End: 15-61-6448Nyxdgilex to establishmentEncompass Health Rehabilitation Hospital 1Pre AnesthesiaStart: 10-25-2024 End: 85-78-8477novkhigdxqFWDSR LAURA WISDOMFacility:[facility] Start: 10-25-2024 End: 00-95-6397Lxbrltnajb consultationEncompass Health Rehabilitation Hospital 1Pre AnesthesiaComment on above:Pre-op evaluation (Primary Dx); Current smoker; Traumatic brain injury, with unknown loss of consciousness status, initial encounter (HCC); Essential hypertension; Oropharyngeal dysphagia; Hyperlipidemia, unspecified hyperlipidemia typeStart: 10-25-2024 End: 84-35-4597Unvnzglywndil examination [facility] Start: 10-24-2024 End: 76-61-1057vwypoyuokmAstxlhi Vytautas Gieditis Facility:[facility] Start: 10-18-2024 End: 60-36-4298Zxwzxuzlv encounterBilal Laura Wisdom MD Work Phone: NeurologyComment on above:Patient Question; Preparations For SurgeryStart: 10-14-2024 End: 85-46-7528NyonjfAame L Yuhas DO Work Phone: [facility] - Family MedicineComment on above:Localized osteoarthritis of lumbar spineStart: 10-12-2024 End: 69-52-8705Bdoyglgmz encounterBilal Laura Wisdom MD Work Phone: NeurologyComment on above:Patient QuestionStart: 10-11-2024 End: 99-67-5171Myvmxog encounter statusBilmonster Wisdom MD Work Phone: [place] ClinicStart: 10-11-2024 End: 03-30-7810Juaeltagm encounterBilmonster Wisdom MD Work Phone: [facility] InstituteStart: 10-11-2024 End: 33-89-9260Edrtfu outpatient new 45 minutesBilmonster Wisdom MD Work Phone: [facility] Hospitalomment on above: Spinal stenosis of cervical region (Primary Dx); Cervical spondylosis with myelopathyStart: 10-11-2024 End: 96-60-9526mmkylqkasbIwbpm Bashir Butt MD Work Phone: [facility] InstituteStart: 10-11-2024 End: 30-83-2804Jrslmxtttp hospital visit by physicianCt [facility] (I-Stat)CT Scan [facility] Hospitalomment on above:Spinal stenosis of cervical region [M48.02]Start: 09-29-2024 End: 02-54-3875BrhfjjXmgsm Stephanie CMAProMedica Physicians Internal Medicine - Family MedicineComment on above:B12 deficiencyStart: 09-26-2024 End: 07-42-4310Rusqbm outpatient visit 15 minutesSavita Alcantara NP Work Phone: ana BELLEVUEComment on above:Lumbar radiculopathy (Primary Dx); Degeneration of intervertebral disc of lumbosacral region with discogenic back pain and lower extremity pain; Weakness of right lower extremity; Cervical spinal stenosis; Weakness of right upper extremity; Chronic daily headache; Polyneuropathy; Chronic right shoulder pain; VertigoStart: 09-26-2024 End: 71-99-9145zyqhwvondhZWNIK CARROLLNot AvailableStart: 09-26-2024 End: 92-82-3350Iblvkumignon Alcantara [address] Work Phone: aNA EDUARDOUEStart: 09-26-2024 End: 68-10-8377Ymyczpcarson Alcantara [employer] [address] Work Phone: aNA BELLEVUEStart: 08-29-2024 End: 20-75-1069zmgitehrobLlkqmjs Vytautas Giedraitis MDFacility:[facility] Start: 08-25-2024 End: 35-81-2151Ejslbxf encounter procedureAlexa Pacenta DEVELOPMENT PLANNER.LUMP RECEIVER Work Phone: Spldl InstituteComment on above:Spinal stenosis of cervical region (Primary Dx)Start: 08-25-2024 End: 15-45-2976axhzbnggwtMFTLO PACENTAFacility:[facility] Ohiotart: 08-25-2024 End: 72-87-7878Enrtrrwpkg hospital visit by physicianSusi Huerta J1-4 Work Phone: RadiologyComment on above:Spinal stenosis, lumbar region with neurogenic claudication [M48.062]Start: 08-22-2024 End: 54-16-6348Aaagln outpatient visit 25 minutesCris Singh DO Work Phone: [facility] - Family MedicineComment on above: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, subsequent encounter (Primary Dx); Localized osteoarthritis of lumbar spine; Intractable chronic post-traumatic headache; Meniere's disease of both ears; Tobacco abuse; Glaucoma of both eyes, unspecified glaucoma typeStart: 08-22-2024 End: 81-05-2866gpynlemclcILZNUnited Health Services Ambulatory PPGStart: 08-09-2024 End: 43-46-2981Rqwcwy outpatient visit 25 Francia Alcantara NP Work Phone: ana BELLEVUEComment on above:Lumbar radiculopathy (Primary Dx); Degeneration of intervertebral disc of lumbosacral region with discogenic back pain and lower extremity pain; Weakness of right lower extremity; Cervical spinal stenosis; Weakness of right upper extremity; Chronic daily headache; Polyneuropathy; Chronic right shoulder pain; VertigoStart: 08-09-2024 End: 46-66-9340jdtnzqwtlxZCJER CARROLLNot AvailableStart: 07-15-2024 End: 30-74-0768Wlpad abstractingUnk Pcp (Hist)NeurologyStart: 07-02-2024 End: 82-60-1365QafeprHjgi L Yuhas DO Work Phone: [facility] - Family MedicineComment on above:Intractable chronic post-traumatic headacheStart: 06-27-2024 End: 24-87-7332kflstzfzccFocckth Vytautas Giedraitis MDFacility:[facility] [place] Start: 06-24-2024 End: 87-66-4473Uucmqftlq Result Carl Alcantara NPNOMS External Department UnsolicitedStart: 06-24-2024 End: 93-26-4986Hnxditxzc Result EncounterSmervat Alcantara NPNONM External Department UnsolicitedStart: 06-16-2024 End: 91-94-4906Tnlpozwvs encounterRamiroyann Grisel [facility]ca [facility] Internal Medicine - Family [facility] Montgomerytart: 06-13-2024 End: 28-67-5392EjexsbKztnmc [facility] Physicians Internal Medicine - Family MedicineComment on above:Intractable chronic post-traumatic headache Start: 06-01-2024 End: 18-46-5534Iehkiv outpatient new 45 minutesPaola Serrano MD Work Phone: noms CI ENTComment on above:Bilateral tinnitus (Primary Dx); Asymmetric SNHL (sensorineural hearing loss); ImbalanceStart: 06-01-2024 End: 54-09-6928gxifxuzdqiIKLONR H TIMMISNot AvailableStart: 05-30-2024 End: 59-86-1608SkvifaXlvc L Yuhas DO Work Phone: [facility] Internal Medicine - Family MedicineComment on above:Intractable chronic post-traumatic headacheStart: 05-25-2024 End: 43-94-7665Yyojbpst SupportDejose david A Janiya CCC-A Work Phone: noMS CI AUDComment on above:Sensorineural hearing loss (SNHL) of both ears (Primary Dx); Tinnitus, bilateral; Meniere's disease, unspecified lateralityStart: 05-25-2024 End: 06-13-8580Kgjvdk flowsheetDeSensoraideah A StoryWorth CCC-A Work Phone: noMS CI AUDStart: 05-25-2024 End: 99-58-7437Afhuer SpazzlesheetDeSensoraideah A StoryWorth CCC-A Work Phone: NOM[facility] CI AUDStart: 05-19-2024 End: 12-39-8848Vaeuqy outpatient visit 25 minutesCris Singh DO Work Phone: [facility] Internal Medicine - Family MedicineComment on above:Intractable chronic post-traumatic headache (Primary Dx); Localized osteoarthritis of lumbar spine; Glaucoma of both eyes, unspecified glaucoma type; Spondylosis of cervical spineStart: 05-19-2024 End: 04-45-0162hbuqqbbwbiZAUWOutagamie County Health Center PPGStart: 05-16-2024 End: 64-75-6358nisfbqctkrCwmaeja Vytautas Gieddeb MDFacility:[facility] Start: 05-12-2024 End: 17-36-1218Lnglxy outpatient visit 25 minutesSavita Quinton [address] [address] [employer] [address] Work Phone: noms [place] STATE ROUTEComment on above:Lumbar radiculopathy (Primary Dx); Weakness of right lower extremity; Polyneuropathy; Weakness of right upper extremity; Chronic right shoulder pain; VertigoStart: 05-12-2024 End: 89-51-1922Axnjho flowsNancy Quinton [employer] [address] Work Phone: noms [place] ROUTEStart: 05-12-2024 End: 24-25-6518Wqsvwc flowsNancy Kaplanoll [employer] [address] Work Phone: noms [place] ROUTEStart: 05-12-2024 End: 76-40-2046Bshfhjwfc Carl Kaplanoll [employer] [address] Work Phone: noms [place] ROUTEStart: 05-12-2024 End: 17-41-6039oxmqnzcpxmLZOYJ CARROLLSaint [facility] Hospital AvailableStart: 05-11-2024 End: 50-63-6992LourjdHtmx L Yuhas DO Work Phone: [facility] - Family MedicineComment on above:Localized osteoarthritis of lumbar spineStart: 05-10-2024 End: 83-68-7451Rzrwsjy encounter procedureChristopher Mejia DO Work Phone: noms [place] ROUTEComment on above:Cervical radiculopathy (Primary Dx); Weakness of right upper extremity; Carpal tunnel syndrome on rightStart: 05-10-2024 End: 16-21-5369Apratl flowsheetChristopher Jackie DO Work Phone: noms [facility] ROUTEStart: 05-10-2024 End: 13-14-4387Fjnbrr flowsheetChristopher Jackie DO Work Phone: noms [facility] ROUTEStart: 05-10-2024 End: 45-74-1690cpllvemenbTYCUHATPZCC HASSETTNot AvailableStart: 04-29-2024 End: 26-86-7243EdnhpsGhqs Cooper CMAProMedica Physicians Internal Medicine - Family MedicineComment on above:Intractable chronic post-traumatic headache Start: 04-28-2024 End: 28-69-8388Dybaxo outpatient visit 25 minutesCris Singh DO Work Phone: [facility] - Family MedicineComment on above:Intractable chronic post-traumatic headache (Primary Dx); Ataxia following other nontraumatic intracranial hemorrhage; 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, subsequent encounter; Glaucoma of both eyes, unspecified glaucoma type; Localized osteoarthritis of lumbar spineStart: 04-28-2024 End: 17-76-0767hcgzhxijunWJNWOutagamie County Health Center PPGStart: 03-30-2024 End: 86-35-5574VruplmElms L Ana Rosas DO Work Phone: [facility] Phys[facility] Internal Medicine - Family MedicineComment on above:Intractable chronic post-traumatic headacheStart: 03-24-2024 End: 14-10-4373EajmxnGjsl L Ana Rosas DO Work Phone: [facility] Medicine - Family MedicineComment on above:B12 deficiencyStart: 03-21-2024 End: 12-18-9955OgeoxaQenm L Marlinehas DO Work Phone: [facility] Internal Medicine - Family MedicineComment on above:Localized osteoarthritis of lumbar spine (Primary Dx) Start: 37-19-5943Qohgqyp encounter statusChristopher Jackie DO Work Phone: noNM HealthcareStart: 03-08-2024 End: 59-18-0542Nufjkp outpatient visit 25 minutesCris Osegueras DO Work [...] level with patient surviving, initial encounter ([facility])Start: 03-08-2024 End: 19-78-7641keuwfdeshaMGRM L [facility] Ambulatory PPGStart: 02-18-2024 End: 82-17-4788Bomhnjg encounter [facility] [address] Work Phone: Start: 02-18-2024 End: 68-36-2839ihyohcouttPHT STAFFRiverview Health Institute Ctr Work Phone: Start: 02-08-2024 End: 27-83-8123Vhozxgwji encounterJorosa Osegueras DO Work Phone: [facility] - Family MedicineStart: 12-29-2023 End: 49-41-7697Mrgtup outpatient visit 25 minutesJorosa Osegueras DO Work Phone: [facility] Medicine - Family MedicineComment on above: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, subsequent encounter (Primary Dx); Meniere's disease of both ears; Cataract of both eyes, unspecified cataract type; Localized osteoarthritis of lumbar spine; B12 deficiencyStart: 12-22-2023 End: 42-01-3550obxnszoknnBCLIJerica Martinez Recluse HospitalStart: 12-07-2023 End: 03-53-8249qmsnpwddplLQTEJerica AmayaCleveland Clinic [facility] HospitalStart: 12-07-2023 End: 80-29-7096Itwnxf outpatient new 45 minutesCris Plummer Marlinehas DO Work Phone: [facility] Medicine - Family MedicineComment on above:Orthostatic hypotension (Primary Dx); Tachycardia; Traumatic brain injury, 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 with patient surviving, initial encounter ([facility]); Lumbar radiculopathy; B12 deficiency; Hyperlipidemia, unspecified hyperlipidemia type; Benign prostatic hyperplasia with lower urinary tract symptoms, symptom details unspecifiedStart: 12-07-2018 End: 89-89-2290Thkffbq encounter procedureNONE LISTED REQUESTFacility:M1Clybp: 29-32-6991Bdxgmho encounter procedurePAMELA ALLENFacility:H1 Procedures DateProcedureProcedure DetailPerforming ClinicianStart: 70-25-8493Enrln depression screening assessmentJorosa Singh DO Work Phone: Start: 30-44-7182Lbaky spine cervical 2 or 3 views Ernie Rankin APRN.LUMP RECEIVER Work Phone: Start: 98-26-2813Ijktu foot complete minimum 3 views Rogelio Conway DPM Work Phone: Start: 96-87-9561Kmgbl depression screening assessment Cris Singh DO Work Phone: Start: 71-72-9165Aivpvdcawocid metabolic panelJorosa Osegueras DO Work Phone: Start: 35-83-7822Kjfbc panelJorosa Singh DO Work Phone: Start: 64-91-7610Cedwi depression screening assessment Cris Singh DO Work Phone: Start: 54-15-2018Dwkvi 1996 panel - Serum or Plasma Jus Wisdom MD Work Phone: Start: 03-72-4326Nxchnice screenJODHAVAL Gardiner on above:Order Comment: Specimen Type: BLOOD SPECIMEN Ordering Facility: [facility] Address: [address] [place], [place] [address]Performed By: #### 2276-4, 13812-0 #### [facility] CLIA [id number] [address] [place] [address] [place] AMERICAStart: 22-47-6849Sgh routine ecg w/least 12 lds i&r onlyFelicitasashley Nohelia DEVELOPMENT PLANNER.LUMP RECEIVER Work Phone: Start: 63-00-6439Fe cervical spine w/o contrast materialAlexa Pacenta DEVELOPMENT PLANNER.LUMP RECEIVER Work Phone: Start: 30-24-4473Bzgav spine cervical 4 or 5 views Lois Medeiros PA-C Work Phone: Start: 69-40-7963Wpsmk depression screening assessment Cris Singh DO Work Phone: Start: 56-37-1159DI CERVICAL SPINE WO/W Willy Alcantara NPStart: 72-07-9989WVLHNKEH FUNCTION TESTSShelby Simon [facility]-A Work Phone: start: 58-66-0574Pwiju depression screening assessment Cris Singh DO Work Phone: Start: 05-10-2024 End: 58-89-3589Lwvyhe emg ea extremty w/paraspinl area completeSaragunner Alcantara [employer] [address] Work Phone: Start: 12-47-5623Fhqze depression screening assessment Cris Singh DO Work Phone: Start: 86-54-4034Cewhcz-up visitFollow-upCRIS Kavitha SINGH Start: 64-07-1218Bdomx depression screening assessmentCris Singh DO Work Phone: Start: 71-73-1542PR lumbar spine wo conStart: 69-74-1214EW pre/post mri xrayStart: 89-02-1799Juifd depression screening assessmentCris Singh DO Work Phone: Start: 93-17-0809Ver routine ecg w/least 12 lds w/i&r Cris Singh DO Work Phone: Start: 69-94-3233Jpigr 1996 panel - Serum or PlasmaUnk (Hist)Start: 93-33-4907Aclba depression screening assessmentCris Singh DO Work Phone: Plan of Treatment DateCare ActivityDetailThe Jewish HospitalrStart: 90-85-1656Smhlf panelLipid Screening [facility] Centertart: 12-08-1042Qnfqo panelLipid ScreeningParkview Health [facility] Start: 45-46-9684Isvsfkkx ScreeningDiabetes ScreeningUniversity Hospitals Lake West Medical Centertart: 35-07-1802Cmwoyrtt ScreeningDiabetes ScreeningUniversity Hospitals Lake West Medical Centertart: 10-26-2027 Diabetes ScreeningDiabetes ScreeningUniversity Hospitals Lake West Medical Centertart: 92-59-8910Oxzcmjck ScreeningDiabetes ScreeningUniversity Hospitals Lake West Medical Centertart: 62-47-4825Vcxan BMI Screening Adult BMI ScreeningProOhiohealth Dublin Methodist Hospital SystemStart: 81-13-8107Ccadqpfats Screening Depression ScreeningCarteret Health Caretart: 27-31-2283Vzgqqdd Screening Tobacco ScreeningCarteret Health Caretart: 46-15-9561Hauqa BMI Screening Adult BMI ScreeningProOhiohealth Dublin Methodist Hospital SystemStart: 19-19-4593Wjchlxssrl Screening Depression ScreeningCarteret Health Caretart: 36-19-4565Ftrkpvb Screening Tobacco ScreeningProCleveland Clinic Mentor Hospitaltart: 32-65-9988Pjamc BMI Screening Adult BMI ScreeningFirelands Regional Medical Center SystemStart: 66-95-8790Gmngtdvthe Screening Depression ScreeningCarteret Health Caretart: 49-57-6683Yziepjz Screening Tobacco ScreeningCarteret Health Caretart: 04-87-3722LR Controlled (<130/80) BP Controlled (<130/80)[facility]: 90-13-8033XY Controlled (<130/80) BP Controlled (<130/80)[facility]: 52-25-0062Sgsdx BMI ScreeningAdult BMI ScreeningCarteret Health Caretart: 31-25-5293Wsmktqfbbz Screening Depression ScreeningCarteret Health Caretart: 52-25-7521Hfumtyq Screening Tobacco ScreeningCarteret Health Caretart: 06-22-2025 End: 32-37-0353Xntdrgy encounter ecqaylwcl57/20/2025 3:00 PM EST Procedure Visit [facility] [address] [place] [address] Rogelio Conway DPM [address] [address] [facility] CI PODIATRYStart: 05-24-2025 End: 74-14-8542CL Cervical spine AP and LateralXR CERV GENERAL 2V AP/LAT Radiology Routine Cervical spondylosis with myelopathy Expected: 05/24/2025, Expires: 03/23/2026[facility] Work Phone: Comment on above:Expected: 05/24/2025, Expires: 03/23/2026Start: 55-37-5604Gwfum BMI ScreeningAdult BMI ScreeningProOhiohealth Dublin Methodist Hospital SystemStart: 88-60-2212Mlftorbhfd ScreeningDepression ScreeningProMarshall [facility] South Health SystemStart: 31-92-7760Ksdqigt ScreeningTobacco ScreeningProMarshall Medical Center South Health SystemStart: 99-54-7254Fvzbs BMI ScreeningAdult BMI ScreeningProSumma Health Barberton Campusca Health SystemStart: 11-69-6369Epbkfwvklj ScreeningDepression ScreeningProSumma Health Barberton Campusca Health SystemStart: 94-32-1425Elgmfno ScreeningTobacco ScreeningJoint Township District Memorial Hospitalca Health System Start: 04-06-2025 End: 22-70-2380Ufefwea encounter procedureNOMS CI PODIATRYComment on above:Pain due to onychomycosis of toenails of both feet (Primary Dx); Hav (hallux abducto valgus), left; Acquired deformity of left toeStart: 85-60-8020ETSPJ-19 Vaccine ( season)COVID-19 Vaccine ( season)[facility] SystemStart: 23-83-7924Roqsxwplm vaccinationProSumma Health Barberton Campusca Health SystemStart: 03-30-2025 End: 06-58-5575Gjmpsbc encounter ojzxxutgp27/28/2025 4:40 PM EDT Office Visit [facility] [address] [facility] [address] [place] [address] Rogelio Conway DPM [address] [address] Acquired deformity of left toe (Primary Dx)[facility] CI PODIATRYComment on above:Acquired deformity of left toe (Primary Dx)Start: 03-16-2025 End: 95-21-1700Vpxishv encounter procedureNOMS CI PODIATRYComment on above: Acquired deformity of left toe (Primary Dx)Start: 09-50-6447Nixsa BMI Screening Adult BMI ScreeningProOhiohealth Dublin Methodist Hospital SystemStart: 74-61-4911Kchgbwwcqy Screening Depression ScreeningFirelands Regional Medical Center SystemStart: 13-49-4051Mnqsrno Screening Tobacco ScreeningProOhiohealth Dublin Methodist Hospital SystemStart: 03-02-2025 End: 21-48-8168Eiivref encounter tpxmzsulo67/31/2025 4:40 PM EDT Office Visit [facility] [address] [place] [address] Rogelio Conway DPM [address] [facility] [address] [place] [address] Acquired deformity of left toe (Primary Dx)[facility] CI PODIATRYComment on above:Acquired deformity of left toe (Primary Dx)Start: 02-21-2025 End: 22-38-0515Tfnaeri encounter procedureSpine Surgery [facility] Comment on above:6 week post op follow up with pre-visit XRXR CERV GENERAL 2V AP/LATStart: 02-07-2025 End: 62-93-5741krjxifghnd33/08/2025 3:15 PM EDT [facility] [address] [place] [address] Ernie Rankin APRN.LUMP RECEIVER [address] Mail Code [address] [place] [phone] Phone call 12 week post opSpine InstituteComment on above: Phone call 12 week post opStart: 01-26-2025 End: 44-81-9772Brplcnr encounter tvqvotvag97/26/2025 3:40 PM EDT Office Visit [facility] [address] [place] [address] Rogelio Conway, DPM [address] [facility] 5 [place] [address] ArrivedNOMS CI PODIATRYComment on above:ArrivedStart: 01-24-2025 End: 30-35-4912Qgckmlc encounter procedureANA BELLEVUEComment on above:Post op pre visit XR per staff messageStart: 01-10-2025 End: 28-42-2063Sgdqyuf encounter procedureXray [place] FHCComment on above:Post opStart: 01-04-2025 End: 23-66-7736Qpcngdr encounter vkoeyuorv01/04/2025 2:30 PM EDT [facility] [address] [place] [address] Cris Singh, DO [address] [facility] [facility] [place], [place] [facility] MedicineStart: 79-11-7760Mzims BMI ScreeningAdult BMI ScreeningProMedica Health SystemStart: 05-20-5279Xxyagjlbmx ScreeningDepression ScreeningProMedica Health SystemStart: 09-26-7612Oidfxjz ScreeningTobacco ScreeningProMedica Health SystemStart: 12-13-2024 End: 92-37-0214Mxlnmmd encounter /13/2025 1:30 PM EDT Office Visit [facility] [address] [place] [address] Cris Singh, DO [address] [place], [id number] [facility] MedicineStart: 19-33-9082Hpxbu BMI ScreeningAdult BMI ScreeningProMedica Health SystemStart: 31-66-6530Jeczccg ScreeningTobacco ScreeningProMedica Health SystemStart: 12-01-2024 End: 20-28-9244Dlutdtb encounter luypxvxnp63/01/2025 2:15 PM EDT Office Visit [facility] [address] [place] [address] Ernie Rankin APRN.LUMP RECEIVER [address] [facility] Mail Code [address] [place] [address] Post opSpine InstituteComment on above:Post opStart: 11-16-2024 End: 28-72-3399Gmexayigb to same day surgery [facility] Operating RoomComment on above:CERVICAL LAMINOPLASTY WITH DECOMPRESSION 2 OR MORE SEGMENTS Start: 11-16-2024 End: 46-82-3520Nwonq cervical w/dcmprn spi cord 2/> vert segCERVICAL LAMINOPLASTY WITH DECOMPRESSION 2 OR MORE SEGMENTS Cervical spinal stenosis Cervical spondylosis with myelopathy Pre-op testing 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) Anemia following surgery 11/16/2024 7:30 AM EDTLU ORStart: 82-46-5237Rgzrmnnblk hospital visit by [facility] Operating RoomComment on above:Cervical spinal stenosis [M48.02], Cervical spondylosis with myelopathy [M47.12], Pre-op testing [Z01.818], 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], Anemia following surgery [D64.9]Start: 11-14-2024 End: 67-63-9765Avbxodq evaluation of patient and ldmzws4111/14/2024 3:00 PM EDT Nurse Visit [facility] [address] [place] [address] Devaughn Vazquez, JUANITA [address] [place] [phone] Pre opSpine InstituteComment on above:Pre opStart: 10-25-2024 End: 91-17-3817Rxpcjuy encounter wnibyajuc80/25/2025 3:40 PM EDT Office Visit [facility] [address] [place] [address] Jus Wisdom MD [address] [place] [phone] Pre opSpine Surgery [facility] Hospitalomment on above:Pre opStart: 10-25-2024 End: 98-83-4799onkwlqtqtq21/25/2025 2:45 PM EDT Results Only [facility] Draw Station [address] [place] [address] Pre opMidFerry County Memorial Hospital Draw StationComment on above:Pre opStart: 10-25-2024 End: 75-88-6678Stxjevqjvdlkn metabolic 2000 panel - Serum or PlasmaChillicothe Va Medical Center Work Phone: Comment on above:Expected: 10/25/2024, Expires: 01/24/2025Start: 10-25-2024 End: 78-53-5492ENRVJWD BLOOD TYPEParkview Health Montpelier HospitalComment on above:Expected: 10/25/2024, Expires: 01/24/2025Start: 10-25-2024 End: 74-50-9865FQJCWDZYVTJSAQ AUREUS & MRSA SCREEN, PCR, NASALSTAPHYLOCOCCUS AUREUS & MRSA SCREEN, PCR, NASAL Lab Routine Cervical spinal stenosis Cervical spondylosis with myelopathy Pre-op testing 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) Anemia following surgery Expected: 10/25/2024, Expires: 04/09/2025leveland ClinicComment on above:Expected: 10/25/2024, Expires: 04/09/2025Start: 10-25-2024 End: 77-75-1213Gbiteooxgf yhkizbgdwlfo57/25/2025 1:40 PM EDT PAT Pre Anesthesia [address] [place] [address] [phone], Pacc [place] [address] [place] [address] Pre opPre AnesthesiaComment on above:Pre opStart: 10-11-2024 End: 46-44-8440ZMB W Auto Differential panel - BloodCOMPLETE BLOOD COUNT AND DIFFERENTIAL Lab Routine Cervical spinal stenosis Cervical spondylosis with myelopathy Pre-op testing 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) Anemia following surgery Expected: 10/11/2024, Expires: 01/10/2025[facility] ClinicComment on above:Expected: 10/11/2024, Expires: 01/10/2025Start: 10-11-2024 End: 94-33-2927Gzpwrhuu [Mass/volume] in Serum or PlasmaFERRITIN Lab Routine Cervical spinal stenosis Cervical spondylosis with myelopathy Pre-op testing No spected carrier of methicillin resistant Staphylococcus aureus (MRSA) Anemia following surgery Expected: 10/11/2024, Expires: 01/10/2025[facility] Comment on above:Expected: 10/11/2024, Expires: 01/10/2025Start: 10-11-2024 End: 73-70-9906Pgcz and Iron binding capacity panel - Serum or PlasmaIRON AND TIBC Lab Routine Cervical spinal stenosis Cervical spondylosis with myelopathy Pre-op testing 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) Anemia following surgeryExpected: 10/11/2024, Expires: 01/10/2025 [facility] Montpelier HospitalComment on above:Expected: 10/11/2024, Expires: 01/10/2025Start: 10-11-2024 End: 47-09-4709BGDAXQMFQEKD, HEMOGLOBINRETICULOCYTE, HEMOGLOBIN Lab Routine Cervical spinal stenosis Cervical spondylosis with myelopathy Pre-op testing 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) Anemia following surgery Expected: 10/11/2024, Expires: 01/10/2025[facility] Comment on above:Expected: 10/11/2024, Expires: 01/10/2025Start: 09-26-2024 End: 01-02-0942Defhigz encounter procedureANA BELLEVUEComment on above:Arrived Start: 08-22-2024 End: 51-80-1251Rpmxuad encounter bppryspjt69/20/2025 2:30 PM EST Office Visit [facility] [address] [place] [facility] [address] Cris Singh DO [address] [facility] [place], [id number] [facility] - Family MedicineStart: 06-15-2024 End: 54-04-0546Gxseodm encounter lflcnveny68/13/2024 2:40 PM EST Office Visit [facility] [address] [place] [address] Savita Alcantara, USED [employer] [address] [place] [address] [facility] ROUTEStart: 06-01-2024 End: 78-02-4164Axukvgc encounter dupodybmw00/30/2024 1:10 PM EDT Office Visit [facility] ENT [address] [facility] [address] [place] [address] Paola Serrano MD [address] [facility] [address] [place], [place] [address] [facility] CI ENTStart: 05-25-2024 End: 90-48-3360Qtzhsiby Glciqpg8705/25/2024 2:30 PM EDT Clinical Support [facility] AUD [address] [facility] [address] [place] [address] Shelby Torres, [facility] [address] [facility] [place] [address] [facility] CI AUDStart: 05-19-2024 End: 45-81-1457Ttehxtz encounter lnpsqckgy38/17/2024 12:30 PM EDT Office Visit [facility] [address] [place] [address] Cris Singh, [address] [place] [address] [facility] - Family MedicineStart: 05-17-2024 End: 84-12-3589AH Cervical spine WO and W contrast IVMR cervical spine w and wo contrast Imaging Routine Weakness of right upper extremity Expected: 05/17/2024 (Approximate), Expires: 05/17/2025[facility] Work Phone: comment on above:Expected: 05/17/2024 (Approximate), Expires: 05/17/2025Start: 05-12-2024 End: 40-09-4639Ugfuuqo encounter procedureHOLZER MEDICAL CENTER – JACKSON ROUTEComment on above:Lumbar radiculopathy (Primary Dx); Weakness of right lower extremity; Polyneuropathy; Weakness of right upper extremityStart: 05-10-2024 End: 76-88-0887Nwdrvbl encounter dokpylyon20/08/2024 2:30 PM EDT Procedure Visit [facility] [address] [place] [address] Deanna Mejia DO [address] [place] [address] ArrivedNOMETROHEALTH MAIN CAMPUS MEDICAL CENTER ROUTEComment on above:ArrivedStart: 04-26-2024 End: 83-96-1632Dvdbiyo encounter yenwqqbfg84/24/2024 2:00 PM EDT [facility] [address] [place] [address] Cris Singh DO [address] [facility] [place], [id number] [facility] Hospitaledic Physicians Internal Medicine - Family MedicineStart: 13-60-8927ZSOSG-19 Vaccine ( season)COVID-19 Vaccine ( season)[facility] SystemStart: 92-56-7490EKXZL-19 Vaccine ( season)COVID-19 Vaccine ( season)[facility] SystemStart: 77-46-8881Naqfiqldd vaccinationDeaconess Incarnate Word Health SystemStart: 03-08-2024 End: 76-81-9932Qxppxno encounter ykxtdatfx49/06/2024 1:45 PM EDT [facility] [address] [place] [address] Cris Singh, DO [address] [facility], [id number] [facility] Phys[facility] Internal Medicine - Family MedicineStart: 13-00-2221Ftubgdqmkn Screening Depression ScreeningProOhiohealth Dublin Methodist Hospital SystemStart: 12-07-2023 End: 93-59-6591MR Brain WO contrastMR brain without contrast Imaging Routine Traumatic brain injury, 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 with patient surviving, initial encoun ter ([facility]) Expected: 12/07/2023, Expires: 12/06/2024[facility] Work Phone: Comment on above:Expected: 12/07/2023, Expires: 12/06/2024Start: 55-39-2124LCOHA-19 Vaccine ( season)COVID-19 Vaccine ( season)[facility]: 39-51-6049Lfrxtvjn specific antigen measurementProstate Cancer Screening DiscussionUniversity Hospitals Lake West Medical Centertart: 24-72-9642Qmxpfwswdaqeti of varicella zoster vaccineZoster (Shingles) Vaccine (1 of 2)[facility] SystemStart: 30-36-3609Otsmbqamxmzc Vaccine: 50+ (1 of 1 - PCV)Pneumococcal Vaccine: 50+ (1 of 1 - PCV)[facility] Centertart: 2016 Shingrix Vaccine (1 of 2)Shingrix Vaccine (1 of 2)[facility] Centertart: 91-06-3629Rxznnrim specific antigen measurementProstate Cancer Screening DiscussionUniversity Hospitals Lake West Medical Centertart: 08-97-9919Zsmouuibj for malignant neoplasm of colonUniversity Hospitals Lake West Medical Centertart: 99-14-1299DBrC,Tdap and Td Vaccines (1 - Tdap) DTaP,Tdap and Td Vaccines (1 - Tdap)[facility] SystemStart: 1985 Hepatitis B Vaccine (1 of 3 - 19+ 3-dose series)Hepatitis B Vaccine (1 of 3 - 19+ 3-dose series)[facility] Cent[facility]: 69-74-0818Lomerhsnxhuv Vaccine: 50+ (1 of 2 - PCV)Pneumococcal Vaccine: 50+ (1 of 2 - PCV)[facility] Centertart: 83-23-2974Iuxbo microalbumin profileDTaP,Tdap,Td Vaccine (1 - Tdap)[facility] Centertart: 72-28-7039Ujzlk BMI Follow Up PlanAdult BMI Follow Up [facility]ertart: 17-81-1097Mehotm PCP Team Chronic Disease VisitAnnual PCP Team Chronic Disease VisitUniversity Hospitals Lake West Medical Centertart: 78-46-3001Jcrtsmw Screening Anxiety ScreeningUniversity Hospitals Lake West Medical Centertart: 94-78-5069SN Controlled (<130/80)BP Controlled (<130/80)[facility] Cent[facility]: 39-09-8775Kphonxenpo Screening Depression ScreeningUniversity Hospitals Lake West Medical Centertart: 86-58-5613Gmauhaypy C screening Hepatitis C ScreeningUniversity Hospitals Lake West Medical Centertart: 23-25-2782DKF screeningHIV Screening [facility] Healthcarert: 02-15-4583Ejxmjuiiz for malignant neoplasm of colonNOMS HealthcareStart: 83-72-5697Cuxblbm CounselingTobacco CounselingFort Hamilton Hospital End: 27-28-9331VO Cervical spine WO contrastCT CERVICAL SPINE WO IVCON Radiology Routine Spinal stenosis of cervical region 1 Occurrences starting 08/25/2024 until 09/24/2025[facility] Work Phone: Comment on above:1 Occurrences starting 08/25/2024 until 09/24/2025ECG COMPLETEECG COMPLETE ECG Routine Pre-op evaluation 10/25/2024 1:58 PM EDTCmemorial hospitaland ClinicLamop cervical w/dcmprn spi cord 2/> vert segCERVICAL LAMINOPLASTY WITH DECOMPRESSION 2 OR MORE SEGMENTS Cervical spinal stenosis Cervical spondylosis with myelopathy Pre-op testing 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) Anemia following surgeryLU ORPOCT EKGPOCT EKG ECG Routine Tachycardia 12/07/2023 2:32 PM [facility] INTERVIEWREFER FOR ADMIT INTERVIEW Procedures Routine Cervical spinal stenosis Cervical spondylosis with myelopathy Pre-op testing 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) Anemia following surgery Ordered: 10/11/2024[facility] Work Phone: Comment on above:Ordered: 10/11/2024TYPE AND SCREEN,30 DAYTYPE AND SCREEN,30 DAY Blood Bank Routine Pre-op evaluation 10/25/2024 2:49 PM EDTCleveland Clinic End: 29-88-2887CP CERV OTHER 4V AP/LAT/FLX/EXTXR CERV OTHER 4V AP/LAT/FLX/EXT Radiology Routine Cervical stenosis of spinal canal 1 Occurrences starting 07/20/2024 until 6C[facility] ClinicComment on above:1 Occurrences starting 07/20/2024 until 08/19/2025 End: 54-41-8250VL Cervical spine AP and LateralXR CERV GENERAL 2V AP/LAT Radiology Routine Cervical spinal stenosis Cervical spondylosis with myelopathy Pre-op testing 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) Anemiafollowing surgery 1 Occurrences starting 10/11/2024 until 11/10/2025leveland ClinicComment on above:1 Occurrences starting 10/11/2024 until 11/10/2025 End: 10-31-7479IU Lumbar spine Views W flexion and W extensionXR LUMBAR MOTION 4V AP/LAT/ FLEX/EXT Radiology Routine Spinal stenosis, lumbar region with neurogenic claudication 1 Occurrences starting 07/20/2024 until 08/19/2025 [facility] Work Phone: Comment on above:1 Occurrences starting 07/20/2024 until 08/19/2025 Payers DatePayer CategoryPayerPolicy [id number]-[id number] [id number] [facility] [id number].72240-16-8315Ombq [facility] Managed Care - OtherANTHEM 1.2.840.369079.1.13.424.2.7.9.873133.[id number] 12-83-1455Mdeqrbu9.2.840.491295.1.13.693.2.7.3.462665.315 2023Medicaid O [facility] MEDICAID on file Kjqjqjf: [address] [place] [id number] [id number] MEDICAID Member Subscriber Plan / Payer (Effective 2020-Present) Name: Bee Harris Relation to Subscriber: Self Name: Bee Harris Payer ID: Not on file Group ID: [id number] Type: Not on file Address: [address] [place] [id number] 2020Medicaid [id number] 840.1.530657.3.579.2. [id number] 840.1.184679.3.57[id number] 2.840.1.359284.3.57[id number] 2.840.1.375239.3.57[id number] 2.840.1.783869.3.579.[id number] 2.840.1.912218.3.579.[id number] 2.0.1.149731.3.57[id number] 2.0.1.124678.3.57[id number] 2.0.1.884305.3.57[id number] 2.0.1.043578.3.579.[id number] 2..1.383502.3.579.[id number] 2..1.545064.3.579.2.[id number] 2..1.933898.3.57[id number] 2..1.470605.3.57[id number] 2.0.1.862624.3.57[id number] 2.840.1.814187.3.57[id number] 2.16.840.1.861769.3.57[id number] 2.0.1.176698.3.579.[id number] 2.840.1.592853.3.57[id number] 2.0.1.414895.3.57[id number] 2.0.1.104921.3.579.2.3[id number] 2.0.1.520726.3.579.2.6[id number] 2.0.1.220266.3.579.2.[id number] 2.0.1.958014.3.57[id number] 2.0.1.462531.3.579.2.[id number] 2.0.1.832622.3.579.2.76[id number] 2.0.1.993060.3.57[id number] 2.0.1.796484.3.57[id number] 2.0.1.870332.3.579.[id number] 2.840.1.026945.3.579.2.929047-19-2784Pjam-xhv88390526533-24-9504Urrwepn [id number] [id number] 2.16.840.1.086083.3.579.2.531 Social History DateTypeDetailFacilityStart: 13-79-0378Cfkvbop smoking status NHISSmoker (finding)[facility] Hospitaltart: 11-55-8399Smi Assigned At [facility] Shawtart: 12-07-2023 End: 02-18-8151Dmelqcd smoking status NHISSmokes tobacco dailyNOMS Healthcare History of tobacco useCigarette SmokerFirelands Regional Medical Center SystemStart: 12-07-2023 End: 25-65-4816Auarbjl use and exposureSmokeless tobacco non-userFirelands Regional Medical Center SystemStart: 03-08-2024 End: 91-86-5448Dfatjjybb beverage intakeCurrent drinker of alcohol (finding) [facility] SystemStart: 10-16-2020 End: 72-18-0012Zpddomj of Social functionFirelands Regional Medical Center SystemStart: 10-16-2020 End: 10-66-2492Jywsqja use panelFirelands Regional Medical Center SystemStart: 21-81-1080Dxa assigned at birthNot on fileFirelands Regional Medical Center SystemStart: 05-19-2024 End: 45-86-2885Tgiclmsrv beverage intakeEx-drinker (finding)[facility] SystemDo you belong to any clubs or organizations such as tenriism groups, unions, fraternal or athletic groups, or school groups?NoPTogus VA Medical Center SystemAre you now , , , , never or living with a partner?Never marriedFirelands Regional Medical Center SystemHow hard is it for you to pay for the very basics like food, housing, medical care, and heatingSomewhat hard [facility] SystemStart: 01-69-6059Obyjpsppoa depression screening rnfkgxsclo4EyiQhbewu Health SystemStart: 54-96-5526Uhosyhg Commentonce a while [facility] SystemStart: 63-03-9059CwaHltj (finding)[facility] Tobacco smoking status NHISTobacco smoking consumption unknownCleveland Clinic (I/We) worried whether (my/our) food would run out before (I/we) got money to buy more.Never trueParkview Health Montpelier HospitalIn the past 12 months, was there a time when you were not able to pay the mortgage or rent on time?YesParkview Health Montpelier Hospital Medical Equipment Procedure CodeEquipment CodeEquipment Original TextEquipment IdentifierDates Plate Canopy 7mm Bone Shelf Inline [id number]: 90-79-0728Qwxve Canopy 2.6mm 4mm Bone Self Drill Laminoplasty Spine - [id number]: 27-80-8684Uymffs 2.6mm Screw Self-Drilling [id number]: 11-16-2024 Goals DatePatient GoalDesired Activity/StatePersonal health goalComment on above: Evaluation of progress towards goal: patient anticipates discharge home with home care at this timePersonal health goalComment on above: Evaluation of progress towards goal: Patient is planning to transition to inpatient rehab. Functional Status TmomYtalqpyqlxKxqavvZhkxtykm02-99-2382Qhy you deaf, or do you have serious difficulty hearingNo 11/19/2024 11:04 AM Lisa Chandler RN [facility] GeneralRkbrsk97-88-7561Knb you blind, or do you have serious difficulty seeing, even when wearing glassesNo 11/19/2024 11:04 AM Lisa Chandler RN No [facility] [id number] you have serious difficulty walking or climbing stairsNo 11/19/2024 11:04 AM Lisa Chandler RN [facility] [id number] you have difficulty dressing or bathingNo 11/19/2024 11:04 AM Lisa Chandler [id number] of a physical, mental, or emotional condition, do you have difficulty doing errands alone such as visiting a physician's office or shoppingNo 11/19/2024 11:04 AM Lisa Chandler RN [facility] Mental Status LenqBlyfbiklmsRoctqwQxzwpjsz28-56-8461Kfgflec of a physical, mental, or emotional condition, do you have serious difficulty concentrating, remembering, or making decisionsNo 11/19/2024 11:04 AM EDT Lisa Sheridan RN No [facility] Clinical Notes 12-07-2023 to 03-16-2025 Note Date & OwojFbsfGygulngh58-19-4057 History of Present illness Narrative* Rogelio Conway, [...] Meniere's disease Polyneuropathy Smoker Traumatic brain injury ([facility]) Medications: Current Outpatient Medications: acetaminophen (Tylenol) 500 [...] in the morning., Disp: , Rfl: HYDROcodone-acetaminophen ([place]) 7.5-325 MG tablet, Take 1 tablet by [...] p.r.n. Rogelio Conway DPM documented in this [facility]08-06-2025 Telephone encounter Note* Telephone Encounter - Rogelio Conway DPM - 03/08/2025 9:08 AM EDT Pt refill of pain medication due to sx today [facility] SystemXdolkdlrvq67-71-8509 Miscellaneous Notes* Telephone Encounter - Rogelio Conway DPM - 03/08/2025 9:08 AM EDT Pt refill of pain medication due to sx today documented in this encounterDeaconess Incarnate Word Health SystemFnwvmedmty73-56-2146 History of Present illness Narrative* Cris Singh, [...] Cardiovascular risk score >7.5%, or ASCVD Risk Social Professionals >5%, then score 1 point, otherwise 0: [...] No results found. ECG: Cris Singh DO., [facility] Office: [phone] documented in this encounterFort [facility] Hospital07-22-2025 NoteHNO ID: [id number] Author: JUS WISDOM MD Service: ? Author [...] DATE: February 21, 2025 TIME: 3:01 PM PAGER:[facility]07-22-2025 History of Present illness Narrative* [...] TIME: 3:01 PM PAGER: documented in this encounterParkview Health [facility]pel[facility]07-14-2025 Miscellaneous Notes* Telephone Encounter - Víctor Puente - 02/13/2025 2:32 PM EDT Scheduled. * Telephone Encounter - Eloise Edgar OCCA - 02/13/2025 11:37 AM EDTSummary: Appointment Info Attempted to call pt at number provided in chart, lvm letting pt know he needs an xray prior to hisappointment with Dr. Wisdom on 02/21. Nothing further. documented in this encounterParkview Health Montpel[facility]07-14-2025 Telephone encounter Note * Telephone Encounter - Víctor Puente - 02/13/2025 2:32 PM EDT Scheduled. [facility]07-14-2025 Telephone encounter Note* Telephone Encounter - Eloise Edgar OCCA - 02/13/2025 11:37 AM EDTSummary: Appointment Info Attempted to call pt at number provided in chart, lvm letting pt know he needs an xray prior to hisappointment with Dr. Wisdom on 02/21. Nothing further. [facility]07-08-2025 History of Present illness Narrative* Ernie Rankin APRN.LUMP RECEIVER - 02/07/2025 3:15 PM EDT SPINE SURGERY FOLLOW UP This is a virtual visit using Audio Only Visit. It required patient-provider interaction for the medical decision making as documented below. I have communicated my name and active licensure. The patient's identity and physical location wereverified at the time of this visit. Either the patient or their legal advertising account representative has been informed of the risks [...] scheduled to follow up with his pain clinical manager home care tomorrow for continued narcotic prescriptions, as we [...] will need to come from his pain clinical manager home care who prescribed them chronically prior to surgery. [...] TIME: 2:49 PM PAGER: documented in this encounterParkview Health Montpel[facility]07-08-2025 NoteHNO ID: [id number] Author: ERNIE RANKIN APRN.CNP Service: ? Author [...] visit. Either the patient or their legal advertising account representative has been informed of the risks [...] scheduled to follow up with his pain clinical manager home care tomorrow for continued narcotic prescriptions, as we [...] will need to come from his pain clinical manager home care who prescribed them chronically prior to surgery. [...] DATE: February 07, 2025 TIME: 2:49 PM PAGER:[facility]06-26-2025 History of Present illness Narrative* [...] disease Polyneuropathy Smoker Traumatic brain injury ([facility]) Medications: Current Outpatient Medications: naloxone [...] in the morning., Disp: , Rfl: HYDROcodone-acetaminophen ([place]) 7.5-325 MG tablet, Take 1 tablet by [...] Strain: Low Risk (08/21/2022) Received from [facility] Overall Financial Resource Strain (CARDIA) Difficulty of Paying Living Expenses: Not hard at all Food Insecurity: Food Insecurity Present (01/04/2025) [facility] Hunger Screening Within the past 12 months we worried whether our food would run out before we got money to buy more.: Sometimes True Within the past 12 months the food we bought just didn't last and we didn't have money to get more.: Sometimes True Transportation Needs: No Transportation Needs (11/17/2024) Received from [facility] PRAPARE - Transportation Lack of Transportation (Medical): No Lack of Transportation (Non-Medical): No Physical Activity: Sufficiently Active (08/21/2022) Received from [facility] Exercise Vital Sign Days of Exercise per Week: 5 days Minutes of Exercise per Session: 30 min Stress: No Stress Concern Present (08/21/2022) Received from [facility] [place] [employer] - Occupational Stress Questionnaire Feeling of Stress : Not at all Social Connections: Socially Isolated (08/21/2022) Received from [facility] Social Connection and Isolation Panel [NHANES] Frequency of Communication with Friends and Family: More than three times a week Frequency of Social Gatherings with Friends and Family: More than three times a week Attends [employer] Services: Never Active Member of Clubs or Organizations: No Attends Club or Organization Meetings: Never Marital Status: Intimate Partner Violence: Unknown (09/24/2023) Received from [facility] [place] Safety & Environment Fear of Current or Ex-Partner: Not on file Emotionally Abused: Not on file Physically Abused: Not on file Sexually Abused: Not on file Physically or Sexually Abused: Not on file Housing Stability: High Risk (11/17/2024) Received from [facility] Housing Stability Vital Sign Unable to [...] Patient may continue with conservative treatments including lovv-fra-snhizze anti- inflammatories and other treatments suggested today. Patient may want to be s cheduled for surgical intervention in the near future. Patient have left 2nd toe amputation in nearfuture Rogelio Conway DPM documented in this encounterDeaconess Incarnate Word Health SystemAdtdznoyfk44-04-4024 Telephone encounter Note* Telephone Encounter - Víctor [...] due to being post op? Please advise. [phone] [facility]06-24-2025 Miscellaneous Notes* Telephone Encounter - Víctor Puente [...] due to being post op? Please advise. [phone] documented in this encounterParkview Health Montpel[facility]06-20-2025 Telephone encounter Note * Telephone Encounter - Ernie Rankin APRN.CNP - 01/20/2025 1:14 PM EDT Patient requesting pain rx refill. Currently 9 weeks post op. PDMP verified. Refill appropriate. Pain management to take over prescribing from here, given chronic narcotics prior to surgery. Ernie Rankin APRN.CNP [facility]06-20-2025 Miscellaneous Notes* Telephone Encounter - Ernie Rankin APRN.CNP - 01/20/2025 1:14 PM EDT Patient requesting pain rx refill. Currently 9 weeks post op. PDMP verified. Refill appropriate. Pain management to take over prescribing from here, given chronic narcotics prior to surgery. Ernie Rankin APRN.LUMP RECEIVER * Telephone Encounter - Devaughn Vazquez RN [...] 7 days. Last visit: 12/27/2024 Pharmacy: [facility]- [facility]/pharmacy #[id number] [place] [address] - [address] [phone] Current Dosage: Patient is currently taking 3 pills/day; Has 2 left. Future OV: 01/24 with MD Please review and advise. Petros Pollard documented in this encounterParkview Health [facility]06-20-2025 Telephone encounter Note * Telephone Encounter - [...] list serafin . Will review with team [facility] Work Phone: [phone] Telephone encounter Note* Telephone Encounter - Devaughn Vazquez RN - 01/20/2025 12:11 PM EDT Neuro SPINE CARE COORDINATION QUICK NOTE SURGERY DATE: 11/16/2024 SURGERY: C3-C5 laminoplasty Post op apt next week Routed to BRITTNY for review. [facility]06-20-2025 Telephone encounter Note* Telephone Encounter - Petros Pollard - 01/20/2025 11:21 AM EDT Patient phones requesting refills as follows: Requested Prescriptions Pending Prescriptions Disp Refills oxyCODONE IR (ROXICODONE) 5 mg immediate release tablet 28 tablet 0 Sig: Take 1 tablet by mouth every 6 hours as needed for pain for up to 7 days. Last visit: 12/27/2024 [id number] [place] [address] [address] - [phone] Current Dosage: Patient is currently taking 3 pills/day; Has 2 left. Future OV: 01/24 with Please review and advise. Petros Pollard [facility]06-04-2025 History of Present illness Narrative* Cris Singh DO - 01/04/2025 2:30 PM EDT IM PROGRESS NOTE Patient - Bee Harris Age - 59 y.o. - 1965 [facility] # - [id number] ASSESSMENT & PLAN 1. Hammer toe of [...] Testing No results found. Cris Singh DO., [facility]: [phone] documented in this encounterFort Hamilton Hospital05-28-2025 Miscellaneous Notes* Telephone Encounter - Ling Main CMA - 12/28/2024 8:43 AM EDT Spoke with pt and he understood his results. I scheduled him an appt. With Dr. Singh regarding a referral to a Heel Varnisher. documented in this encounterFort Hamilton Hospital05-28-2025 Telephone encounter Note* Telephone Encounter - Ling Main CMA - 12/28/2024 8:43 AM EDT Spoke with pt and he understood his results. I scheduled him an appt. With Dr. Singh regarding a referral to a Heel Varnisher. [facility]05-27-2025 Telephone encounter Note* Telephone Encounter - Ernie Rankin APRN.CNP - 12/27/2024 5:14 PM EDT Patient requesting pain rx refill. PDMP verified. Refill appropriate. Ernie Rankin APRN.CNP [facility]05-27-2025 Miscellaneous Notes* Telephone Encounter - Ernie Rankin APRN.CNP - 12/27/2024 5:14 PM EDT Patient requesting pain rx refill. PDMP verified. Refill appropriate. Ernie Pacenta, DEVELOPMENT PLANNER.LUMP RECEIVER * Telephone Encounter - Devaughn Vazquez RN [...] to 7 days. Last visit: 12/23/2024 Pharmacy: [facility] #[id number] Pharmacy Current Dosage: Patient is currently taking 1 tab as needed; Has 16 left. Future OV: 01/24/[address] Wisdom Please review and advise. Marissa Barillas Patient phones requesting refills as follows: Requested Prescriptions Pending Prescriptions Disp Refills methocarbamol (ROBAXIN) 750 mg tablet 120 tablet 0 Sig: Take 1 tablet by mouth four times daily. Last visit: 12/23/2024 Pharmacy: [facility] # [id number] Pharmacy Current Dosage: Patient is currently taking 1 tab every 6 hrs; Has 2 left. Future OV: 01/24/25 with Artis Please review and advise. Marissa Barillas documented in this encounterParkview Health Montpel[facility] Hospital05-27-2025 Telephone encounter Note * Telephone Encounter - Devaughn Vazquez RN - 12/27/2024 5:12 PM EDT Neuro SPINE CARE COORDINATION QUICK NOTE SURGERY DATE: 11/16/2024 SURGERY: C3-C5 laminoplasty 4 week SP laminoplasty Routed to BRITTNY for review. [facility] Work Phone: 1(185) 414-349505-27-2025 Telephone encounter Note* Telephone Encounter - Marissa [...] to 7 days. Last visit: 12/23/2024 Pharmacy: [facility] #[id number] Pharmacy Current Dosage: Patient is currently taking 1 tab as needed; Has 16 left. Future OV: 01/24/[address] Wisdom Please review and advise. Marissa Barillas Patient phones requesting refills as follows: Requested Prescriptions Pending Prescriptions Disp Refills methocarbamol (ROBAXIN) 750 mg tablet 120 tablet 0 Sig: Take 1 tablet by mouth four times daily. Last visit: 12/23/2024 Pharmacy: [facility] # [id number] Pharmacy Current Dosage: Patient is currently taking 1 tab every 6 hrs; Has 2 left. Future OV: 01/24/25 with Artis Please review and advise. Marissa Barillas [facility]05-14-2025 Telephone encounter Note* Telephone Encounter - Devaughn Vazquez RN - 12/14/2024 1:07 PM EDT Call to the pt PM was seen just prior to the surgery. PM placed [place] on hold. They will see him at the 6 week adilson and take over medications. Update to the team [facility]05-14-2025 Miscellaneous Notes* Telephone Encounter - Devaughn Vazquez RN - 12/14/2024 1:07 PM EDT Call to the pt PM was seen just prior to the surgery. PM placed [place] on hold. They will see him at the 6 week adilson and take over medications. Update to the team * Telephone Encounter - Ernie Rankin APRN.CNP - 12/14/2024 10:06 AM EDT Patient requesting pain rx refill. PDMP verified. Refill appropriate. Ernie Rankin APRN.LUMP RECEIVER * Telephone Encounter - Devaughn Vazquez RN - 12/14/2024 9:54 AM EDT Neuro SPINE CARE COORDINATION QUICK NOTE ASH 12-01-24 with Ernie Rankin USED [employer] SP C3-5 laminoplasty on 11-16-24 Pt reports [...] appointment: 01/10/2025 Best number to reach caller: [phone] Best time to reach caller: any Is it OK to leave a detailed voice message? Yes Rukhsana Rosenthal documented in this encounterParkview Health [facility]05-14-2025 Telephone encounter Note * Telephone Encounter - Ernie Rankin APRN.CNP - 12/14/2024 10:06 AM EDT Patient requesting pain rx refill. PDMP verified. Refill appropriate. Ernie Rankin APRN.CNP [facility]05-14-2025 Telephone encounter Note* Telephone Encounter - Devaughn Vazquez RN - 12/14/2024 9:54 AM EDT Neuro SPINE CARE COORDINATION QUICK NOTE ASH 12-01-24 with Ernie Rankin USED [employer] [facility] SP C3-5 laminoplasty on 11-16-24 Pt reports some improvement with balance. Pt will need refill of Roxicodone. Pt reports taking one BID and has been out for the past day. Preferred pharmacy- [facility]05-14-2025 Telephone encounter Note* Telephone Encounter - Rukhsana [...] appointment: 01/10/2025 Best number to reach caller: [phone] Best time to reach caller: any Is it OK to leave a detailed voice message? Yes Rukhsana Rosenthal [facility]05-13-2025 History of Present illness Narrative* Cris Singh, DO - 12/13/2024 1:30 PM EDT IM PROGRESS NOTE Patient - Bee Harris Age - 59 y.o. - 1965 [facility] # - [id number] ASSESSMENT & PLAN 1. 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 - patient was sent home without [...] Testing No results found. Cris Singh DO., [facility]: [phone] documented in this encounterFort Hamilton Hospital05-01-2025 Telephone encounter Note* Telephone Encounter - Devaughn Vazquez RN - 12/01/2024 2:34 PM EDT Neuro SPINE CARE COORDINATION QUICK NOTE Requested refill of Tylenol has been addressed. [facility] Work Phone: 1(774) 383-614605-01-2025 Miscellaneous Notes* Telephone Encounter - Devaughn Vazquez [...] 4 left. Please review and advise; ph: [phone] Umu Agrawal documented in this encounterParkview Health Montpel[facility]05-01-2025 History of Present illness Narrative* Ernie Rankin [...] health care or rehab. He now has [facility] providing him assistance. Reports generalized neck pain and stiffness. Seeing some improvement in altered sensation. Using robaxin, tylenol, and lyrica for pain relief. Continues using the narcotics as needed. Incision is healing well without any complications- he was worried as his bandage was coming off. His come health post acute care nurse practitioner was able to replace and reinforce. Denies [...] BICEPS TRICEPS DELTS Wrist Ext Wrist Flex Registered Dietician HI R 3 5 3 5 5 [...] prescription, he will return to his pain clinical manager home care for continuednarcotic use. He will continue to [...] TIME: 11:45 AM PAGER: documented in this encounterParkview Health Montpelier Hospital05-01-2025 NoteHNO ID: [id number] Author: ERNIE RANKIN APRN.CNP Service: ? Author [...] health care or rehab. He now has [facility] providing him assistance. Reports generalized neck pain and stiffness. Seeing some improvement in altered sensation. Using robaxin, tylenol, and lyrica for pain relief. Continues using the narcotics as needed. Incision is healing well without any complications- he was worried as his bandage was coming off. His come health post acute care nurse practitioner was able to replace and reinforce. Denies [...] BICEPS TRICEPS DELTS Wrist Ext Wrist Flex Registered Dietician HI R 3 5 3 5 5 [...] prescription, he will return to his pain clinical manager home care for continued narcotic use. He will continue to avoid excessive bending lifting or twisting and will especially be mindful of avoiding active chin to chest motion. Education provided regarding expected outcomes and typical healing process. [place] were removed. There is no sign of [...] DATE: November 30, 2024 TIME: 11:45 AM PAGER:[facility]05-01-2025 Instructions* Patient Instructions* Ernie Rankin [...] or phone call with questions or concerns. [phone] documented in this encounterParkview Health Montpel[facility] Hospital04-30-2025 Telephone encounter Note * Telephone Encounter - Umu Munoz - 11/30/2024 3:00 PM EDT Patient phones requesting refills as follows: Requested Prescriptions Pending Prescriptions Disp Refills acetaminophen (TYLENOL EXTRA STRENGTH) 500 mg tablet 180 tablet 0 Sig: Take 2 tablets by mouth every 8 hours. Last visit: 11/22/2024 Pharmacy: [facility] #[id number] Pharmacy Current Dosage: Patient is currently taking 2 tabs every 8 hrs; Has 4 left. Please review and advise; ph: [phone] Umu Agrawal [facility]04-22-2025 Telephone encounter Note* Telephone Encounter - Shu Landers LSW - 11/22/2024 3:13 PM EDT CM sent HC referrals to [address] and [facility] HC- awaiting responses. Due to pt insurance type identifying HC agency willing to accept pt may take extended time [facility]04-22-2025 Miscellaneous Notes* Telephone Encounter - Shu Landers LSW - 11/22/2024 3:13 PM EDT CM sent HC referrals to [address] and [facility] HC- awaiting responses. Due to pt insurance type identifying HC agency willing to accept pt may take extended time documented in this encounterParkview Health Montpel[facility]04-22-2025 Telephone encounter Note * Telephone Encounter - [...] as ambulation . Minimal support at home. [facility]04-22-2025 Miscellaneous Notes* Telephone Encounter - Devaughn Vazquez [...] appointment: 01/10/2025 Best number to reach caller: [phone] Best time to reach caller: any Is it OK to leave a detailed voice message? Yes Rukhsana Rosenthal documented in this encounterParkview Health Montpel[facility]04-22-2025 Telephone encounter Note * Telephone Encounter - [...] appointment: 01/10/2025 Best number to reach caller: [phone] Best time to reach caller: any Is it OK to leave a detailed voice message? Yes Rukhsana Rosenthal [facility]04-19-2025 NoteHNO ID: [id number] Author: KARINA WOODSON MD Service: General Internal [...] 0.9 10/25/2024 Abs Neut 5.59 10/25/2024 Abs Chambers 1.02 10/25/2024 Abs Eosin 0.16 10/25/2024 Abs [...] -- 11/16/24 1145 activity - mobilize patient ([place]) VTE Prophylaxis: VTE prophylaxis appropriate SIGNATURE: Karina Woodson MD PATIENT NAME: Bee Harris DATE: November 19, 2024 TIME: 10:48 [facility]04-19-2025 NoteHNO ID: [id number] Author: LOPEZ SINGH MD Service: Hospital Medicine Author Type: Resident Type: Plan of Care Filed: 11/19/2024 10:25 Note Text: 59 year old male s/p C3-C5 laminoplasty 11/16 Seen by therapy and rollator recommended RX provided Patient lives independently at [facility] and will require rollator as need to take frequent breaks during ambulation to dining [place]ina[place], and have ability to sit. He is required to independently go to [facility], dining [place], get mail. Jody Amaya PA-C 10:13 AM Co-signed by orthopaedic team. Recommended by PT, is [facility] rollator. 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 Equipment Needed Rollator SIGNATURE: Ml Davis RN PATIENT NAME: Bee Harris DATE: November 19, 2024 TIME: 10:01 [facility]04-19-2025 NoteHNO ID: [id number] Author: LOPEZ SINGH MD Service: Orthopaedic Surgery Author Type: Resident Type: Progress Notes Filed: 11/19/2024 09:23 Note Text: ORTHOPAEDIC SPINE SURGERY PROGRESS NOTE PATIENT NAME: Bee Harris Attending: Jus Wisdom MD ASSESSMENT: 59 year old male s/p C3-C5 laminoplasty by Jus Wsidom MD on 11/16/2024. PLAN: - Activity: WBAT, [...] Flex Elbow Ext Wrist Ext Wrist Flex Registered Dietician HI R 5 5 5 5 5 [...] days Lopez Singh MD PGY-3 Orthopaedic Surgery [phone] For [place] floor related issues [place], [place] [phone] If unable to reach the PA team between 6 am and 5 pm, please page me at [phone] At all other times, or if urgent, please page the orthopaedic on-call resident at: [phone] ([phone]) for [facility] patients [id number] for [facility] patients [id number] for [facility] patients [address] for [facility] patients [address] for [facility] patientsFairfield Medical CenterZfiyqtki41-16-2973 NoteHNO ID: [id number] Author: KRANTHI DELGADILLO MD Service: Orthopaedic Surgery [...] Flex Elbow Ext Wrist Ext Wrist Flex Registered Dietician HI R 5 5 5 5 5 [...] days Kranthi Delgadillo MD PGY-2 Orthopaedic Surgery [facility]04-17-2025 NoteHNO ID: [id number] Author: KARINA WOODSON MD Service: General Internal [...] 0.9 10/25/2024 Abs Neut 5.59 10/25/2024 Abs Chambers 1.02 10/25/2024 Abs Eosin 0.16 10/25/2024 Abs [...] -- 11/16/24 1145 activity - mobilize patient ([place]) VTE Prophylaxis: VTE prophylaxis appropriate SIGNATURE: Karina Woodson MD PATIENT NAME: Bee Harris DATE: November 17, 2024 TIME: 1:00 [facility]04-17-2025 NoteHNO ID: [id number] Author: KRANTHI DELGADILLO MD Service: Orthopaedic Surgery [...] Flex Elbow Ext Wrist Ext Wrist Flex Registered Dietician HI R 5 5 5 5 5 [...] day Kranthi Delgadillo MD PGY-2 Orthopaedic Surgery [facility]04-16-2025 NoteHNO ID: [id number] Author: ELLIE RASHID MD Service: Neurosurgery Author [...] at baseline Motor: UE Deltoid Triceps Biceps Registered Dietician Hand Intrinsics Right 5/5 5/5 5/5 5/5 5/5 Left 5/5 5/5 5/5 5/5 5/5 LE Hip flexion Knee ext Dorsiflexion EHL Plantarflexion Right 5/5 5/5 5/5 5/5 5/5 Left 5/5 5/5 5/5 5/5 5/5 Dressing/Wound: intact Drain(s): HVAC x1 to suction Ellie Rashid MD PGY-6 Pager: [phone] [id number] NoteHNO ID: [id number] Author: JAMAR SWAIN AA Service: Anesthesiology Author Type: Pre Billing Clinician Type: Anesthesia Procedure Notes Filed: 11/16/2024 08:19 [...] November 16, 2024 TIME: 8:18 AM CSN: [id number] NoteHNO ID: [id number] Author: DEVAUGHN VAZQUEZ RN Service: ? Author Type: Registered Nurse Type: Progress Notes Filed: 11/14/2024 09:33 Note Text: Neuro SPINE CARE COORDINATION PRE-OP PHONE VISIT Met with patient for pre op education. Given both written and verbal instructions re : Skin prep, wound care, pain management and post op restrictions. Provided to patient: [facility] Surgery Guide, skin prep supplies, Spine [...] alone- pt requests Home care Devaughn Vazquez RN[facility]04[facility]14[facility] History of Present illness Narrative* Devaughn Vazquez RN - 11/14/2024 9:25 AM EDT Neuro SPINE CARE COORDINATION PRE-OP PHONE VISIT Met with patient for pre op education. Given both written and verbal instructions re : Skin prep, wound care, pain management and post op restrictions. Provided to patient: [facility] Surgery Guide, skin prep supplies, Spine [...] care Devaughn Vazquez RN documented in this encounterParkview Health [facility]pel[facility]04-01-2025 Telephone encounter Note * Telephone Encounter - Devaughn Vazquez RN - 11/01/2024 3:57 PM EDT Neuro SPINE CARE COORDINATION QUICK NOTE Call to the pt and he is not interested in sooner OR date at this time. Pt currently scheduled for 11-16-[address] Wisdom [facility] Work Phone: 1(317) 967-864404-01-2025 Miscellaneous Notes* Telephone Encounter - Devaughn Vazquez RN - 11/01/2024 3:57 PM EDT Neuro SPINE CARE COORDINATION QUICK NOTE Call to the pt and he is not interested in sooner OR date at this time. Pt currently scheduled for 11-16-[address] Wisdom documented in this encounterParkview Health [facility]pel[facility]03-27-2025 NoteHNO ID: [id number] Author: MELO HERNANDEZ RN Service: ? Author Type: Registered Nurse Type: Progress Notes Filed: 2024 19:59 Note Text: Patient referred to Blood Management for pre-surgical optimization. Hgb 14.1 which exceeds Blood Management guidelines for intervention.[facility]03-27-2025 History of Present illness Narrative* Melo Hernandez RN - 2024 7:59 PM EDT Patient referred to Blood Management for pre-surgical optimization. Hgb 14.1 which exceeds Blood Management guidelines for intervention. documented in this encounterParkview Health Montpel[facility]03-25-2025 Instructions* Patient Instructions* Justin Boo APRN.LUMP RECEIVER - 10/25/2024 2:31 PM EDT Images from the original note were not included. [facility] PATIENT PREOPERATIVE INSTRUCTIONS Jus Wisdom MD has scheduled you for your procedure at this surgery center: [facility]: [phone] --[address] [place] [address]. On your scheduled day of surgery, please [...] office. If you are currently using a kmin-dkp-rvpd injectable or oral medication for diabetes or [...] Procedures: - YOU MUST HAVE A RESPONSIBLE DNA SEQUENCING ASSOCIATE TAKE YOU HOME. A PRODUCT AMBASSADOR OR HORSE AND WAGON DRIVER CANNOT BE MADE A RESPONSIBLE DNA SEQUENCING ASSOCIATE. - We recommend that a responsible person [...] Advance Directive, please fax a copy to [phone] or email to for it to be [...] day. Justin Boo APRN.CHARLI documented in this encounterParkview Health Montpel[facility]03-25-2025 NoteHNO ID: [id number] Author: JUS WISDOM MD Service: ? Author [...] BICEPS TRICEPS DELTS Wrist Ext Wrist Flex Registered Dietician HI R 5 5 5 5 5 [...] with the patient or the patient?s personal advertising account representative. Discussed goals of surgery Halt progression [...] patient from a sym (more content not included)...[facility]03-25-2025 History of Present illness Narrative* [...] BICEPS TRICEPS DELTS Wrist Ext Wrist Flex Registered Dietician HI R 5 5 5 5 5 [...] the patient or the patient s personal advertising account representative. Discussed goals of surgery Halt progression [...] TIME: 1:44 PM PAGER: documented in this encounterParkview Health Montpel[facility]03-25-2025 History and physical note * Justin Boo APRN.LUMP RECEIVER - 10/25/2024 1:40 PM EDT Images from the original note were not included. [place] [facility] Pre-Anesthesia [facility]ation [facility] HISTORY [...] have a large neck STOP-Bang Score: 2 [id number] Score: Age: <65 Sex: Female CHF history: No Hypertension history: Yes Stroke/TIA/thromboembolism history: No Vascular disease history: No Diabetes history: No [id number] Score: 2 I - PHYSICAL EVALUATION AIRWAY [...] procedure. [facility] or Procedure:: Yazidi Status of surgery/procedure:: Scheduled Date of surgery/procedure:: [...] 428 QTC Calculation (Bazett) 437 Calculated P Abington 69 Calculated R Abington 36 Calculated T Abington 54 Impression NORMAL SINUS RHYTHM NORMAL ECG NO PREVIOUS ECGS AVAILABLE No results found for this or any previous visit (from the past 83449 hours). Instructions Given to Patient: Instructions located in the after visit summary. Patient given verbal and written preop instructions and voices comprehension and compliance. SIGNATURE: Justin Boo APRN.CNP PATIENT NAME: Bee Harris DATE: October 25, 2024 TIME: 2:10 PM PAGER/CONTACT #: [facility]03-25-2025 History and physical note* Justin Boo APRN.CNP [...] have a large neck STOP-Bang Score: 2 [id number] Score: Age: <65 Sex: Female CHF history: No Hypertension history: Yes Stroke/TIA/thromboembolism history: No Vascular disease history: No Diabetes history: No [id number] Score: 2 I - PHYSICAL EVALUATION AIRWAY [...] procedure. [facility] or Procedure:: Yazidi Status of surgery/procedure:: Scheduled Date of surgery/procedure:: [...] 428 QTC Calculation (Bazett) 437 Calculated P Abington 69 Calculated R Abington 36 Calculated T [place] 54 Impression NORMAL SINUS RHYTHM NORMAL ECG NO PREVIOUS ECGS AVAILABLE No results found for this or any previous visit (from the past 38510 hours). Instructions Given to Patient: Instructions located in the after visit summary. Patient given verbal and written preop instructions and voices comprehension and compliance. SIGNATURE: Justin Boo APRN.CNP PATIENT NAME: Bee Harris DATE: October 25, 2024 TIME: 2:10 PM PAGER/CONTACT #: documented in this encounterParkview Health Montpel[facility]03-18-2025 Telephone encounter Note * Telephone Encounter - Devaughn Vazquez RN - 10/18/2024 2:03 PM EDT Neuro SPINE CARE COORDINATION QUICK NOTE Call to the pt and reviewed questions [facility] Work Phone: 1(890) 703-907303-18-2025 Miscellaneous Notes* Telephone Encounter - Devaughn Vazquez [...] appointment: 10/25/2024 Best number to reach caller: [phone] Best time to reach caller: any Is it OK to leave a detailed voice message? Yes Marissa Barillas documented in this encounterParkview Health Montpel[facility]03-18-2025 Telephone encounter Note * Telephone Encounter - [...] appointment: 10/25/2024 Best number to reach caller: [phone] Best time to reach caller: any Is it OK to leave a detailed voice message? Yes Marissa Barillas [facility]03-13-2025 Telephone encounter Note* Telephone Encounter - Devaughn Vazquez RN - 10/13/2024 7:45 AM EDT Neuro SPINE CARE COORDINATION QUICK NOTE Pt pending C3-5 laminoplasty on 11-16-24 PM would like to proceed with SI joint injection Will review with team- as per USED [employer] no contraindications to proceeding with SI joint injection. Call to PM and update provided to Cassi ORDONEZ) [facility] Work Phone: 1(329) 136-825203-13-2025 Miscellaneous Notes* Telephone Encounter - Devaughn Vazquez RN - 10/13/2024 7:45 AM EDT Neuro SPINE CARE COORDINATION QUICK NOTE Pt pending C3-5 laminoplasty on 11-16-24 PM would like to proceed with SI joint injection Will review with team- as per USED [employer] no contraindications to proceeding with SI joint [...] 10/25/2024 Best number to reach caller: Cassi [phone] Best time to reach caller: 8 am till 4 pm Is it OK to leave a detailed voice message? Yes Erendira Jean documented in this encounterParkview Health [facility]03-12-2025 Telephone encounter Note * Telephone Encounter - Erendira Tay - 10/12/2024 1:01 PM EDT Call received for Jus Wisdom MD regarding Bee Harris. Caller: Cassi with [facility] Patient Identified by Name and [...] 10/25/2024 Best number to reach caller: Cassi [phone] Best time to reach caller: 8 am till 4 pm Is it OK to leave a detailed voice message? Yes Erendira Mcknight Global Manager [facility]03-11-2025 Telephone encounter Note* Telephone Encounter - Devaughn [...] disposition : Low [0] Devaughn Vazquez RN [facility] Work Phone: 1(831) 147-968303-11-2025 Miscellaneous Notes* Telephone Encounter - Devaughn Vazquez [...] [0] Devaughn Vazquez RN documented in this encounterParkview Health Montpel[facility]03-11-2025 NoteHNO ID: [id number] Author: JUS WISDOM MD Service: ? Author [...] BICEPS TRICEPS DELTS Wrist Ext Wrist Flex Registered Dietician HI R 5 5 5 5 5 [...] of his neck NEURO TESTS: DATA REVIEW [facility] records independently reviewed MRI with severe [...] with the patient or the patient?s personal advertising account representative. Discussed goals of surgery Halt progression [...] and B were c (more content not included)...[facility] 10-11-2024 History of Present illness [...] BICEPS TRICEPS DELTS Wrist Ext Wrist Flex Registered Dietician HI R 5 5 5 5 5 [...] the patient or the patient s personal advertising account representative. Discussed goals of surgery Halt progression [...] time was 30 minutes. documented in this encounterParkview Health Montpel[facility]03-11-2025 History of Present illness Narrative* Lori Plaza [...] PATIENT PRESENTS WITH AN IMPLANTABLE OR ATTACHED PRIVATE ADVISOR: No RADIOLOGY DEPARTMENT: CT; Exam(s) Completed: Spine PERIPHERAL IV DATA: Not applicable SIGNED BY: SENTHIL López) October 11, 2024 9:21 AM documented in this encounterParkview Health Montpelier [facility]03-11-2025 NoteHNO ID: [id number] Author: LORI PLAZA RT(R) Service: ? Author [...] PATIENT PRESENTS WITH AN IMPLANTABLE OR ATTACHED PRIVATE ADVISOR: No RADIOLOGY DEPARTMENT: CT; Exam(s) Completed: Spine PERIPHERAL IV DATA: Not applicable SIGNED BY: RT Maribel(Cirilo) October 11, 2024 9:21 [facility]02-24-2025 History of Present illness Narrative* Savita Alcantara [...] Ernie Rankin APRN, CNP (spine surgery) at [facility] on 08/25/2024. Per documentation, she recommended obtaining a CT of the cervical spine for surgical consideration. This is scheduled for 10/11/2024 after which the patient has an appointment with Dr. Jus Wisdom ([facility] spine surgery). Ernie Rankin APRN, CNP [...] are. He continues to take Lyrica and [place] butstates, none of that helps. The patient's [...] hydrocodone-acetaminophen 7.5-325 MG tablet; Commonly known as: [place] latanoprost 0.005 % ophthalmic solution; Commonly known [...] wrist extensors , wrist flexor , and publishing manager strength 4+/5. May be a component of giveway weakness. Reduced range of motion in the right deltoid - patient states this is chronic. LUE strength deltoid , biceps , triceps , wrist extensors , wrist flexor , and publishing manager strength 5/5. RLE strength iliopsoas, quadriceps, tibialis [...] reflex 0. LLE knee reflex 2+. Coordination: Bmabhs-hx-ttml testing normal. Rapid alternating movements are normal. Gait: Appears mildly antalgic. Review and summary of old records: MRI of the lumbar spine without contrast at [facility] on 07/05/2024: No abnormal signalin the distal [...] spine with and without contrast at [facility] on 06/23/2024: Marked central canal narrowing posterior to C3-C4 extending to C4- C5. Flattening and compression posterior to C3 -C4 and C4-C5. No abnormal signal intensity. Multilevel marked and moderate to marked foramen narrowing. Multilevel degenerative disc disease and degenerative facet arthropathy accounting for the above findings. See full report. Orthostatic vital signs at [facility] on 05/12/2024: Negative. EMG of the right upper extremity at [facility] on 05/10/2024: A remote C8 motor [...] of the lumbar spine without contrast at [facility] on 02/18/2024: At L1-L2, there is a broad-based disc bulge with a left subarticular disc protrusion. There is mild spinal canal stenosis. There is moderate left and moderate right neural foraminal narrowing. At L3-L4, there is a broad-based disc bulge with facet hypertrophy and endplate osteophyte formation. There is tavh-ft-oblyylvm bilateral neural foraminal narrowing with moderate spinal [...] (neurosurgery) on 07/11/24 and subsequently referred to [facility] neurosurgery for further evaluation and surgical opinion. He was evaluated by Ernie Rankin APRN, LUMP RECEIVER on 08/25/24. PLAN: - Follow up with pain management for evaluation and measures to help improve pain and functional ability - Follow up with [facility] spine surgery per their recommendations. Per documentation on 08/25/24, they did not believe the patient was a surgical candidate unless he quits smoking - He is taking meloxicam, Lyrica, and [place] (prescribed by outside provider) Cervical spinal stenosis [...] primary priority. He has established care with [facility] for surgical opinion and wasevaluated by Ernie Rankin APRN, LUMP RECEIVER on 08/25/24. PLAN: - Follow up closely with [facility] spine surgery and pain management. Per chart review, it seems the patient has a CT of the cervical spine scheduled on 10/11/24 with surgical consultation thereafter - He is taking meloxicam, Lyrica, and [place] (prescribed by outside provider) Carpal tunnel syndrome [...] NP [facility] documented in this encounterDeaconess Incarnate Word Health [id number] Instructions* Patient Instructions* Ernie Rankin APRN.CHARLI - 08/25/2024 2:08 PM EST I recommend attempting an injection with your pain management provider for your low back and left buttock pain. Injection options would include a left SI Joint injection or a left L4-L5 TFESI. Please obtain the following images and have them sent to us: MRI Cervical Spine 06/24/2024 @ [facility] MRI Lumbar Spine 02/18/2024 @ [facility] HOW TO SEND YOUR IMAGES AND REPORTS Contact the radiology facility where the images were completed and ask if they have PACs (Picture Archiving and Communication System). If they have PACs, request that your images be sent over the internet directly to [facility] via PACs. Note: If they have PACS they will know how to do this. Their image transmission system may have another name. Once transmitted, it will take our radiology dept approximately 2-3 days to process it into your chart. OR Mailing instructions: [facility] C/O Ernie Rankin CNP [address] [facility]/[place] [address] Upload Instructions: The [facility] has a [...] have questions, please email us at [email or web address]. To upload images to the secure [facility] website please click on the following link: [email or web address] [facility] as the center. OR Use link below [email or web address] Please have imaging reports faxed to us at [phone] PLEASE NOTE: [email or web address] ([employer]) computers are not supported by this application at this time. The application will work with the latest versions of Internet ExploreArkeo, Green Genese, Firefox, and U-NOTEa. Thank you Ernie Rankin APRN.CHARLI documented in this encounterParkview Health Montpelier Hospital01-23-2025 NoteHNO ID: [id number] Author: ERNIE RANKIN APRN.CNP Service: ? 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 Benign affect. Spine (more content not included)...[facility]01-23-2025 History of Present illness Narrative* Ernie Rankin APRN.LUMP RECEIVER - 08/25/2024 1:12 PM EST SPINE SURGERY [...] - Generalized low back pain (main pain test driver) - Right calf to foot numbness/tingling [...] Membrane stabilizer: Lyrica OTC NSAIDs Topiramate Narcotic: [place] - jail- local pain clinical manager home care PREVIOUS SPINAL SURGERY: None ACTIVE PROBLEM LIST [...] BP Cuff Size: Regular Adult) Pulse 66 MnO715% GENERAL APPEARANCE: Well nourished, well developed, and no apparent distress. NEURO PSYCH: Patient oriented to person, place, and time. Mood pleasant. Benign affect. Spine Exam Neck No obvious deformity, mildly limited ROM Back No stepoffs/deformities. No tenderness or instability to palpation along spinous processes or paravertebral musculature Upper Extremity Motor UE BICEPS TRICEPS DELTS Wrist Ext Wrist Flex Registered Dietician HI R 3 5 3 5 5 [...] Medication: Continue current 4. Referrals: Local pain clinical manager home care to attempt left L4-5 TFESI or left [...] TIME: 1:12 PM PAGER: documented in this encounterParkview Health Montpelier Hospital01-23-2025 History of Present illness Narrative* Leela Ribera [...] PATIENT PRESENTS WITH AN IMPLANTABLE OR ATTACHED PRIVATE ADVISOR: No RADIOLOGY DEPARTMENT: General X-ray: Exam(s) Completed: Spine X-Ray(s): Cervical AP / LAT / FLEX-EXT and Lumbar AP / LAT / L5-S1 / FLEX-EXT PERIPHERAL IV DATA: Not applicable SIGNED BY: RT Darleen(R) August 25, 2024 1:21 PM documented in this encounterParkview Health Montpelier Hospital01-23-2025 NoteHNO ID: [id number] Author: LEELA RIBERA RT(Cirilo) Service: Radiology Author [...] PATIENT PRESENTS WITH AN IMPLANTABLE OR ATTACHED PRIVATE ADVISOR: No RADIOLOGY DEPARTMENT: General X-ray: Exam(s) Completed: Spine X-Ray(s): Cervical AP / LAT / FLEX-EXT and Lumbar AP / LAT / L5-S1 / FLEX-EXT PERIPHERAL IV DATA: Not applicable SIGNED BY: RT Darleen(R) August 25, 2024 1:21 [facility]01-20-2025 History of Present illness Narrative* Cris Singh, DO - 08/22/2024 2:30 PM EST IM PROGRESS NOTE Patient - Bee Harris Age - 58 y.o. - 1965 [facility] # - [id number] ASSESSMENT & PLAN 1. Traumatic left-sided intracerebral [...] -needs to keep follow-up with Neurosurgery at [facility] to evaluate stabilization options. -in the [...] stenosis. He ultimately has been referred to [facility] for consideration of a cervical fusion. This is scheduled in the next1-2 weeks. -he continues to have problems with his balance. A VNG did show central vertigo, and he was referred to ENT. ENT referred him to vestibular Clinic in [place], but the patient has not been able to schedule were attend an evaluation. 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 Currently on latanoprost, and reportedly the pressures [...] Testing No results found. Cris Singh DO., [facility] Office: [phone] documented in this encounterFort Hamilton Hospital01-07-2025 History of Present illness Narrative* Savita Alcantara [...] (neurosurgery) on 07/11/2024 and subsequently referred to [facility] neurosurgery. The patient states Dr. Caba felt more comfortable with him getting a [facility]. He has an appointment with Ernie Rankin APRN, CNP ([facility]urosurgery[facility]. The patient continues to follow with pain management. His next appointment with Lalitha Vela MD is on 08/29/2024. He states pain management has prescribed Lyrica and [place] for his symptoms, however, neither of these [...] hydrocodone-acetaminophen 7.5-325 MG tablet; Commonly known as: [place] IRON PO latanoprost 0.005 % ophthalmic solution; [...] wrist extensors , wrist flexor , and publishing manager strength 4+/5. May be a component of giveway weakness. Reduced range of motion in the right deltoid - patient states this is chronic. LUE strength deltoid , biceps , triceps , wrist extensors , wrist flexor , and publishing manager strength 5/5. RLE strength iliopsoas, quadriceps, tibialis [...] reflex 0. LLE knee reflex 2+. Coordination: Tevlib-hg-tbnx testing normal. Rapid alternating movements are normal. Gait: Appears antalgic. Review and summary of old records: MRI of the lumbar spine without contrast at [facility] on 07/05/2024: No abnormal signalin the distal [...] spine with and without contrast at [facility] on 06/23/2024: Marked central canal narrowing posterior to C3-C4 extending to C4- C5. Flattening and compression posterior to C3 -C4 and C4-C5. No abnormal signal intensity. Multilevel marked and moderate to marked foramen narrowing. Multilevel degenerative disc disease and degenerative facet arthropathy accounting for the above findings. See full report. Orthostatic vital signs at [facility] on 05/12/2024: Negative. EMG of the right upper extremity at [facility] on 05/10/2024: A remote C8 motor [...] of the lumbar spine without contrast at [facility] on 02/18/2024: At L1-L2, there is a broad-based disc bulge with a left subarticular disc protrusion. There is mild spinal canal stenosis. There is moderate left and moderate right neural foraminal narrowing. At L3-L4, there is a broad-based disc bulge with facet hypertrophy and endplate osteophyte formation. There is ncvr-wj-qjifexyu bilateral neural foraminal narrowing with moderate spinal [...] (neurosurgery) on 07/11/24 and subsequently referred to [facility] neurosurgery for further evaluation and surgical opinion. PLAN: - I advised the patient to follow up closely with [facility] neurosurgery - Follow up with pain management for evaluation and measures to help improve his pain and functional ability - He is taking meloxicam, Lyrica, and [place] (prescribed by outside provider) Cervical spinal stenosis [...] is indicated, and he is scheduled with [facility] neurosurgery on 08/25/24. PLAN: - I advised the patient to follow up closely with [facility] neurosurgery and pain management - He is taking meloxicam, Lyrica, and [place] (prescribed by outside provider) Carpal tunnel syndrome [...] Meniere's disease Greater than 40 minutes on lhha-hv-zrqv interaction discussing diagnsosis, prognosis, and treatmentoptions with [...] NP [facility] documented in this [facility]01-07-2025 Instructions* Patient Instructions* Savita Alcantara NP - 08/09/2024 2:20 PM EST - Start venlafaxine ER 37.5 mg by mouth once a day - Follow up with neurosurgery documented in this encounterDeaconess Incarnate Word Health [id number] ID: [id number] Author: LOIS MEDEIROS PA-C Service: ? Author Type: Physician Nurse Practitioner Per Diem Type: Progress Notes Filed: 07/20/2024 22:06 Note [...] PT Lyrica Darcy back and body Topiramate [place] Studies (Reports unless indicated) MRI lumbar spine [...] patient imaging is available for review [facility] History of Present illness Narrative* Lois [...] PT Lyrica Darcy back and body Topiramate [place] Studies (Reports unless indicated) MRI lumbar spine [...] Health Provider or Pain Management Provider at [facility]? No If answer is YES please [...] MRI Lumbar (07/05/24), MRI Cervical (06/23/24) The [address] [address] MRI/CT/myelogram viewable in Epic: No If not, please provide [phone] to fax in imaging reports for review. [...] and/or physical therapy was completed PT: The [place] [id number] Currently working with insurance for injection approval Have you tried any other kinds of non-surgical treatments in the last 12 months? (For example: NSAIDS, muscle relaxants, analgesics, oral steroids, Chiropractor, Acupuncture): Lyrica, Darcy Back & Body, Meloxicam, Topiramate 4. Are you currently taking daily prescribed narcotic medications for your current symptoms (For example Oxycodone, Hydrocodone, Tramadol, Morphine, Other)? Yes, [place] 5. Have you had previous spinal surgery for this same symptoms? No If YES please ask for the name of facility/address of where the surgery was completed: Additional Comments [phone] [facility] NoteHNO ID: [id number] Author: ?, ?, ? Service: ? Author Type: ? Type: Progress Notes Filed: 07/20/2024 22:06 Note Text: Patient name: Bee Harris Are you being referred by a Center for Sp[facility] Health Provider or Pain Management Provider at [facility]? No If answer is YES please [...] MRI Lumbar (07/05/24), MRI Cervical (06/23/24) [place] [address] MRI/CT/myelogram viewable in Epic: No If not, please provide [phone] to fax in imaging reports for review. [...] and/or physical therapy was completed PT: [place] [address] Currently working with insurance for injection approval Have you tried any other kinds of non-surgical treatments in the last 12 months? (For example: NSAIDS, muscle relaxants, analgesics, oral steroids, Chiropractor, Acupuncture): Lyrica, Darcy Back AND Body, Meloxicam, Topiramate 4. Are you currently taking daily prescribed narcotic medications for your current symptoms (For example Oxycodone, Hydrocodone, Tramadol, Morphine, Other)? Yes, [place] 5. Have you had previous spinal surgery for this same symptoms? No If YES? please ask for the name of facility/address of where the surgery was completed: Additional Comments [phone] Miscellaneous Notes* Telephone Encounter - Tamica Recinos CMA - 06/16/2024 3:43 PM EST Patient needs a letter stating that you have been treating him and he is unable to work for child support. * Telephone Encounter - Cris Singh DO - 06/16/2024 3:43 PM EST Message noted. A letter is in his chart [facility] Telephone encounter Note* Telephone Encounter - Tamica Recinos CMA - 06/16/2024 3:43 PM EST Patient needs a letter stating that you have been treating him and he is unable to work for child support. [facility] Telephone encounter Note* Telephone Encounter - Cris Singh DO - 06/16/2024 3:43 PM EST Message noted. A letter is in his chart [facility]10-30-[facility] History of Present illness Narrative* Paola Serrano [...] of colon with perforation 08/21/2022 Essential hypertension ([facility]/HCC) 08/21/2022 Fall 06/19/2022 History of colostomy reversal 10/16/2020 Hyperglycemia 08/21/2022 Hyperlipidemia (CMS/HCC) 08/21/2022 Hypokalemia 08/21/2022 Multiple fractures of ribs, left side, initial encounter for closed fracture 06/29/2022 Oropharyngeal dysphagia 06/29/2022 Overweight 08/21/2022 Perforated diverticulum 04/23/2020 Purpura (CMS/HCC) 08/21/2022 TBI (traumatic brain injury) ([facility]) 02/15/2024 Urinary retention 06/29/2022 Well adult health check 08/21/2022 Resolved Ambulatory Problems Diagnosis Date Noted No Resolved Ambulatory Problems Past Medical History: Diagnosis Date B12 deficiency Cataracts, bilateral Glaucoma (CMS/HCC) Meniere's disease Smoker Traumatic brain injury ([facility]) Past Surgical History: Procedure Laterality [...] to facilitate vestibular rehab documented in this encounterDeaconess Incarn[facility] Word Health [id number] History of Present illness Narrative* MARIE Kraft [...] Ear: Type A tympanogram documented in this [facility]10-17[facility]2024 History of Present illness Narrative* Cris Singh [...] know what his pressures are. Sees the product owner in several weeks for recheck. As cataracts [...] Testing No results found. Cris Singh DO., [facility]: [phone] documented in this encounterFort [facility]10-14-2024 Telephone encounter Note* Telephone Encounter - Savita Alcantara NP - 05/16/2024 8:41 AM EDT Reviewed, thank you. [facility] [id number] Miscellaneous Notes* Telephone Encounter - Savita Alcantara [...] seen by Kinza Caba. documented in this encounterDeaconess Incarnate Word Health [id number] Telephone encounter Note* Telephone Encounter - Becky Guzman MA - 05/16/2024 8:25 AM EDT Note is routed to you and in media [facility] [id number] Telephone encounter Note* Telephone Encounter - Rogelio Crook MA - 05/13/2024 9:32 AM EDT Notes have been requested. Should be in faxes. [facility] [id number] Telephone encounter Note* Telephone Encounter - Savita Alcantara NP - 05/12/2024 3:22 PM EDT Can you please request the neurosurgery note for me to review? The patient was seen by Kinza Caba. [place] [id number] History of Present illness Narrative* Savita Alcantara [...] and receives transportation via his health insurance, [employer]. The patient was evaluated by Dr. Singh ([facility] internal medicine) 04/28/2024. He was evaluated by Dr. Caba (neurosurgery) on 05/09/[address]24. [address] Caba referred him to [facility] pain management, and he has a new [...] wrist extensors , wrist flexor , and publishing manager strength 4+/5. May be a component of giveway weakness. Reduced range of motion in the right deltoid - patient states this is chronic. LUE strength deltoid , biceps , triceps , wrist extensors , wrist flexor , and publishing manager strength 5/5. RLE strength iliopsoas, quadriceps, tibialis [...] reflex 0. LLE Knee reflex 2+. Coordination: Lbfevm-xn-zncx testing normal. Rapid alternating movements are normal. Gait: Appears antalgic. Review and summary of old records: Orthostatic vital signs at [facility] on 05/12/2024: Negative Laying - blood pressure 120/68, heart rate 72 beats/min Sitting - blood pressure 124/76, heart rate 72 beats/min Standing for 3 minutes - blood pressure 122/84, heart rate 94 beats/min EMG of the right upper extremity at [facility] on 05/10/2024: A remote C8 motor [...] of the lumbar spine without contrast at [facility] on 02/18/2024: At L1-L2, there is a broad-based disc bulge with a left subarticular disc protrusion. There is mild spinal canal stenosis. There is moderate left and moderate right neural foraminal narrowing. At L3-L4, there is a broad-based disc bulge with facet hypertrophy and endplate osteophyte formation. There is gjog-ik-wgwghtns bilateral neural foraminal narrowing with moderate spinal [...] NP [facility] documented in this [facility]10-10-2024 Instructions* Patient Instructions* Savita Alcantara NP - 05/12/2024 2:40 PM EDT - MRI of the cervical spine - Referral to orthopedic surgery documented in this [facility]10-08-2024 History of Present illness Narrative* GLORIA Manzo - 05/10/2024 2:30 PM EDT Images from the original note were not included. Reason for Appointment: EMG Patient: Bee Harris : 1965 EMG Computer: [employer] Referring Physician: Savita Alcantara CNP EMG: MONCHO job specification writer: Meliton Burnette RT(R) Office Location: [place] Reason for EMG: c/o pain in right shoulder. No hx of DM. Not on blood thinners Comments: Procedure was explained to the patient who expressed understanding. Patient appeared to have tolerated the test well despite some discomfort due to the nature of the test. documented in this [facility]09-26-2024 History of Present illness Narrative* Cris Singh [...] THE MORNING, Disp: 30 tablet, Rfl: 1 bbaejrhh-uppf-JD-calcium &mins (THERAGRAN-M) 9 mg iron-400 mcg tablet, [...] Testing No results found. Cris Singh DO., [facility]: [phone] documented in this encounterFort [facility]08-06-2024 History of Present illness Narrative* Cris Singh, [...] level with patient surviving, initial encounter ([facility]) - has been evaluated by [...] Exam Vitals reviewed. Exam conducted with a sweeping compound blender present (). Constitutional: General: He is not [...] the morning., Disp: 90 tablet, Rfl: 1 hdafhjpq-yjyj-TV-calcium &mins (THERAGRAN-M) 9 mg iron-400 mcg tablet, [...] Testing No results found. Cris Singh DO., [facility]: [phone] documented in this encounterFort [facility] Hospital07-08-2024 Miscellaneous Notes* Telephone Encounter - Nuria Martino - 02/08/2024 3:45 PM EDT ----- Message from Dr. Cris Singh DO sent at 12/29/2023 4:08 PM EDT ----- Musculoskeletal recheck * Telephone Encounter - Nurianeena Martino - 02/08/2024 3:45 PM EDT LM on VM documented in this encounterFort [facility] Hospital07-08-2024 Telephone encounter Note* Telephone Encounter - Nuria Martino - 02/08/2024 3:45 PM EDT ----- Message from Dr. Cris Singh DO sent at 12/29/2023 4:08 PM EDT ----- Musculoskeletal recheck [facility]07-08-20[facility] Telephone encounter Note* Telephone Encounter - Nuria Martino - 02/08/2024 3:45 PM EDT LM on VM [facility]05-28-20[facility] History of Present illness Narrative* Cris Singh DO - 12/29/2023 11:00 AM EDT IM PROGRESS NOTE Patient - Bee Harris Age - 58 y.[facility]. [facility] 1965 [id number] ASSESSMENT & PLAN 1. Traumatic left-sided intracerebral [...] the morning., Disp: 30 tablet, Rfl: 2 ifuvnjmb-alzk-UG-calcium &mins (THERAGRAN-M) 9 mg iron-400 mcg tablet, [...] Testing No results found. Cris Singh DO., [facility]: [phone] documented in this encounterFort [facility] Hospital05-06-2024 History of Present illness Narrative* Cris Singh [...] level with patient surviving, initial encounter ([facility]) - Previous TBI one year [...] to have parenchymal bleed, and transferred to [place]. Did not require surgery, but spent several [...] Testing No results found. Cris Singh DO., [facility]: [phone] documented in this encounterFirelands [facility] SystemEvaluation noteNo assessment information availableOhio State East Hospital Work Phone: Evaluation note* Diagnosis Cervical radiculopathy- Primary Brachial neuritis or radiculitis nos Weakness of right upper extremity Other musculoskeletal symptoms referable to limbs Carpal tunnel syndrome on right Carpal tunnel syndrome documented in this encounter [facility] Healthcare[facility] note* Diagnosis Lumbar radiculopathy- Primary Thoracic or lumbosacral neuritis or radiculitis, unspecified Weakness of right lower extremity Polyneuropathy Unspecified hereditary and idiopathic peripheral neuropathy Weakness of right upper extremity Other musculoskeletal symptoms referable to limbs Chronic right shoulder pain Pain in joint, shoulder region Vertigo Dizziness and giddiness documented in this encounter [facility] HealthcareEvaluation note* Diagnosis Sensorineural hearing loss (SNHL) of both ears- Primary Tinnitus, bilateral Unspecified tinnitus Meniere's disease, unspecified laterality documented in this encounter [facility] Healthcare[facility] note* Diagnosis Bilateral tinnitus- Primary Asymmetric SNHL (sensorineural hearing loss) Sensorineural hearing loss, asymmetrical Imbalance Abnormality of gait documented in this encounter [facility] Healthcare[facility] note* Diagnosis Intractable chronic post-traumatic headache documented in this encounter [facility] note* Diagnosis Spinal stenosis, lumbar region with neurogenic claudication- Primary Cervical stenosis of spinal canal Spinal stenosis in cervical region [facility]* Diagnosis Lumbar radiculopathy- Primary Thoracic [...] Dizziness and giddiness documented in this encounter [facility] HealthcareEvaluation note* Diagnosis 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, subsequent encounter- Primary Localized osteoarthritis of lumbar spine Intractable chronic post-traumatic headache Meniere's disease of both ears Tobacco abuse Tobacco use disorder Glaucoma of both eyes, unspecified glaucoma type documented in this encounter [facility]* Diagnosis Spinal stenosis, lumbar region with neurogenic claudication Cervical stenosis of spinal canal Spinal stenosis in cervical region [facility] this encounter [facility]* Diagnosis Spinal stenosis of cervical region- Primary Spinal stenosis in cervical region documented in this encounter [facility]* Diagnosis Orthostatic hypotension- Primary Tachycardia Unspecified tachycardia Traumatic brain injury, 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 with patient surviving, initial encounter ([facility]) Lumbar radiculopathy Thoracic or lumbosacral neuritis or radiculitis, unspecified B12 deficiency Hyperlipidemia, unspecified hyperlipidemia type Benign prostatic hyperplasia with lower urinary tract symptoms, symptom details unspecified documented in this encounter [facility]* Diagnosis [...] level with patient surviving, initial encounter ([facility]) documented in this encounter [facility]* Diagnosis Localized osteoarthritis of lumbar spine- Primary documented in this encounter [facility]* Diagnosis B12 deficiency documented in this [facility]* Diagnosis Intractable chronic post-traumatic headache documented in this encounter [facility]* Diagnosis Localized osteoarthritis of lumbar spine documented in this encounter [facility]* Diagnosis Localized osteoarthritis of lumbar spine documented in this encounter [facility]* Diagnosis Intractable chronic post-traumatic headache- Primary Localized osteoarthritis of lumbar spine Glaucoma of both eyes, unspecified glaucoma type Spondylosis of cervical spine documented in this encounter [facility]* Diagnosis Intractable chronic post-traumatic headache- Primary Ataxia following other 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, subsequent encounter Glaucoma of both eyes, unspecified glaucoma type Localized osteoarthritis of lumbar spine documented in this encounter [facility]* Diagnosis Intractable chronic post-traumatic headache documented in this encounter [facility]* Diagnosis [...] Dizziness and giddiness documented in this encounter [facility]* Diagnosis B12 deficiency documented in [facility]* Diagnosis Spinal stenosis of cervical region- Primary Spinal stenosis in cervical region Cervical spondylosis with myelopathy [facility]* Diagnosis Cervical spinal stenosis- Primary Spinal stenosis in cervical region Cervical spondylosis with myelopathy Pre-op testing Preoperative examination, unspecified 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) Anemia following surgery Anemia, unspecified documented in this encounter [facility]* Diagnosis Spinal stenosis of cervical region Spinal stenosis in cervical region documented in this encounter [facility]uch[facility]* Diagnosis Cervical spinal stenosis- Primary Spinal [...] surgery Anemia, unspecified documented in this encounter [facility]* Diagnosis Pre-op evaluation- Primary Preoperative examination, unspecified Current smoker Tobacco use disorder Traumatic brain injury, with unknown loss of consciousness status, initial encounter ([facility]) Essential hypertension Unspecified essential hypertension Oropharyngeal dysphagia [...] to 2 PPD. documented in this encounter [facility]* Diagnosis Pre-op evaluation- Primary Preoperative examination, unspecified Current smoker Tobacco use disorder Traumatic brain injury, with unknown loss of consciousness status, initial encounter ([facility]) Essential hypertension Unspecified essential hypertension Oropharyngeal dysphagia Dysphagia, oropharyngeal phase Hyperlipidemia, unspecified hyperlipidemia type Spinal stenosis in cervical region- Primary Cervical spinal stenosis Spinal stenosis in cervical region Cervical spondylosis with myelopathy Pre-op testing Preoperative examination, unspecified 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) Anemia following surgery Anemia, unspecified documented in this encounter [facility]* Diagnosis Tobacco abuse Tobacco use disorder [facility]* Diagnosis Pre-op evaluation- Primary Preoperative examination, unspecified Current smoker Tobacco use disorder Traumatic brain injury, with unknown loss of consciousness status, initial encounter ([facility]) Essential hypertension Unspecified essential hypertension Oropharyngeal dysphagia Dysphagia, oropharyngeal phase Hyperlipidemia, unspecified hyperlipidemia type Cervical vertebral fusion- Primary Other unspecified back disorder documented in this encounter [facility]* Diagnosis B12 deficiency documented [facility] this encounter [facility]* Diagnosis Pre-op evaluation- Primary Preoperative examination, unspecified Current smoker Tobacco use disorder Traumatic brain injury, with unknown loss of consciousness status, initial encounter ([facility]) Essential hypertension Unspecified essential hypertension Oropharyngeal dysphagia Dysphagia, oropharyngeal phase Hyperlipidemia, unspecified hyperlipidemia type Cervical spondylosis with myelopathy- Primary Acute post-operative pain documented in this encounter [facility] note* Diagnosis 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- Primary B12 deficiency Ataxia following other 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, subsequent encounter Tobacco abuse Tobacco use disorder Hyperlipidemia, unspecified hyperlipidemia type documented in this encounter [facility]* Diagnosis Pre-op evaluation- Primary Preoperative examination, unspecified Current smoker Tobacco use disorder Traumatic brain injury, with unknown loss of consciousness status, initial encounter ([facility]) Essential hypertension Unspecified essential hypertension Oropharyngeal dysphagia Dysphagia, oropharyngeal phase Hyperlipidemia, unspecified hyperlipidemia type Cervical spondylosis with myelopathy documented in this encounter [facility]* Diagnosis Pre-op evaluation- Primary Preoperative examination, unspecified Current smoker Tobacco use disorder Traumatic brain injury, with unknown loss of consciousness status, initial encounter ([facility]) Essential hypertension Unspecified essential hypertension Oropharyngeal dysphagia Dysphagia, oropharyngeal phase Hyperlipidemia, unspecified hyperlipidemia type Post-operative pain Other acute postoperative pain documented in this encounter [facility] note* Diagnosis Hammer toe of left foot- Primary documented in [facility] encounter [facility]* Diagnosis Hav (hallux abducto valgus), left- Primary Acquired deformity of left toe Pain due to onychomycosis of toenails of both feet documented in this encounter [facility]* Diagnosis Intractable chronic post-traumatic headache- Primary Tobacco abuse Tobacco use disorder [facility]* Diagnosis Pre-op evaluation- Primary Preoperative examination, unspecified Current smoker Tobacco use disorder Traumatic brain injury, with unknown loss of consciousness status, initial encounter ([facility]) Essential hypertension Unspecified essential hypertension Oropharyngeal dysphagia Dysphagia, oropharyngeal phase Hyperlipidemia, unspecified hyperlipidemia type Cervical spondylosis with myelopathy- Primary documented in this encounter [facility]* Diagnosis Pre-op evaluation- Primary Preoperative examination, unspecified Current smoker Tobacco use disorder Traumatic brain injury, with unknown loss of consciousness status, initial encounter ([facility]) Essential hypertension Unspecified essential hypertension Oropharyngeal dysphagia Dysphagia, oropharyngeal phase Hyperlipidemia, unspecified hyperlipidemia type Cervical spondylosis with myelopathy- Primary documented in this encounter [facility]* Diagnosis Pre-op evaluation- Primary Preoperative examination, unspecified Current smoker Tobacco use disorder Traumatic brain injury, with unknown loss of consciousness status, initial encounter ([facility]) Essential hypertension Unspecified essential hypertension Oropharyngeal dysphagia Dysphagia, oropharyngeal phase Hyperlipidemia, unspecified hyperlipidemia type Cervical spinal stenosis Spinal stenosis in cervical region Cervical spondylosis with myelopathy Pre-op testing Preoperative examination, unspecified 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) Anemia following surgery Anemia, unspecified [facility] encounter [facility] [facility] Diagnosis Hammer toe of left foot- Primary Intractable chronic post-traumatic headache Tobacco abuse Tobacco use disorder documented in this encounter [facility]* Diagnosis Intractable chronic post-traumatic headache documented in this encounter [facility]* Diagnosis Acquired deformity of left toe- Primary documented in this encounter [facility]* Diagnosis Acquired deformity of left toe- Primary Acquired deformity of left toe- Primary documented in this encounter [facility]* Diagnosis Acquired deformity of left toe- Primary documented in this encounter [facility]* Diagnosis Localized osteoarthritis of lumbar spine documented in this encounter [facility]* Diagnosis Acquired deformity of left [...] Meniere's disease Polyneuropathy Smoker Traumatic brain injury ([facility]) Medications: Current Outpatient Medications: acetaminophen (Tylenol) 500 [...] in the morning., Disp: , Rfl: HYDROcodone-acetaminophen (Kokomo) 7.5-325 MG tablet, Take 1 tablet by [...] Strain: Low Risk (08/21/2022) Received from [facility] Overall Financial Resource Strain (CARDIA) Difficulty of Paying Living Expenses: Not hard at all Food Insecurity: Food Insecurity Present (01/04/2025) Received from [facility] Hunger Screening Within the past 12 months we worried whether our food would run out before we got money to buy more.: Sometimes True Within the past 12 months the food we bought just didn't last and we didn't have money to get more.: Sometimes True Transportation Needs: No Transportation Needs (11/17/2024) Received from [facility] PRAPARE - Transportation Lack of Transportation (Medical): No Lack of Transportation (Non-Medical): No Physical Activity: Sufficiently Active (08/21/2022) Received from [facility] Exercise Vital Sign Days of Exercise per Week: 5 days Minutes of Exercise per Session: 30 min Stress: No Stress Concern Present (08/21/2022) Received from [facility] [employer] [place] [employer] - Occupational Stress Questionnaire Feeling of Stress : Not at all Social Connections: Socially Isolated (08/21/2022) Received from [facility] Social Connection and Isolation Panel [NHANES] Frequency of Communication with Friends and Family: More than three times a week Frequency of Social Gatherings with Friends and Family: More than three times a week Attends [employer] Services: Never Active Member of Clubs or Organizations: No Attends Club or Organization Meetings: Never Marital Status: Intimate Partner Violence: Unknown (09/24/2023) Received from [facility] Safety & Environment Fear of Current or Ex-Partner: Not on file Emotionally Abused: Not on file Physically Abused: Not on file Sexually Abused: Not on file Physically or Sexually Abused: Not on file Housing Stability: High Risk (11/17/2024) Received from [facility] Housing Stability Vital Sign Unable to [...] risks, alternatives, benefits, post op complications and intermediate accountant expectations were discussed including but not limited to: infection,bone infection,wound dehiscence hardware failure and irritation,wound dehiscence,delay union/mal union/non union of bone. RSDS,neuroma,duty limitations,DVT/PE, ND,nerve damage, scar, loss of sensation, swelling. Pt [...] Meniere's disease Polyneuropathy Smoker Traumatic brain injury ([facility]) Medications: Current Outpatient Medications: acetaminophen (Tylenol) 500 [...] in the morning., Disp: , Rfl: HYDROcodone-acetaminophen (Kokomo) 7.5-325 MG tablet, Take 1 tablet by [...] Meniere's disease Polyneuropathy Smoker Traumatic brain injury ([facility]) Medications: Current Outpatient Medications: acetaminophen (Tylenol) 500 [...] in the morning., Disp: , Rfl: HYDROcodone-acetaminophen (Kokomo) 7.5-325 MG tablet, Take 1 tablet by [...] hallux Rogelio Conway DPM documented in this [facility] SystemInstructionsNot on filedocumented in this encounterProOhio[facility] SystemInstructionsNot on filedocumented in this encounterProOhiohealth [facility] SystemInstructionsNot on filedocumented in this encounterProMarshall [facility] SystemInstructionsNot on filedocumented in this encounterProMarshall Medical [facility] Health SystemInstructionsNot on filedocumented in this encounterProOhiohealth [facility] SystemInstructionsNot on filedocumented in this encounterProOhiohealth [facility] SystemInstructionsNot on filedocumented in this encounterProMarshall Medical [facility] Health SystemInstructionsNot on filedocumented in this encounterProOhiohealth [facility] SystemInstructionsNot on filedocumented in this encounterProOhiohealth [facility] SystemInstructionsNot on filedocumented in this encounterProOhiohealth [facility] SystemInstructionsNot on filedocumented in this encounterProOhiohealth [facility] SystemInstructionsNot on filedocumented in this encounterProSalem Regional Medical CenterReason for referral (narrative)* Diagnostic Procedure Only (Routine) - New RequestSpecialtyDiagnoses / ProceduresReferred By ContactReferred To ContactXR IMAGING Diagnoses Cervical stenosis of spinal canal Procedures XR CERV OTHER 4V AP/LAT/FLX/EXT RADEX SPINE CERVICAL 4 OR 5 VIEWS Lois Medeiros PA-C [address] [place] [address] Xr Imaging [facility] Referral IDStatusReasonStart DateExpiration DateVisits RequestedVisits [id number] Request Auto-Generated Referral / * Diagnostic Procedure Only (Routine) - New RequestSpecialtyDiagnoses / ProceduresReferred By ContactReferred To ContactXR IMAGING Diagnoses Spinal stenosis, lumbar region with neurogenic claudication Procedures XR LUMBAR MOTION 4V AP/LAT/ FLEX/EXT RADEX SPINE LUMBOSACRAL MINIMUM 4 VIEWS Lois Medeiros PA-C [address] [place] [address] Xr Imaging [facility] Referral IDStatusReasonStart DateExpiration DateVisits RequestedVisits [id number] Request Auto-Generated Referral / [facility] for referral (narrative)* Diagnostic Procedure Only (Routine) - ClosedSpecialtyDiagnoses / ProceduresReferred By ContactReferred To ContactXR IMAGING Diagnoses Cervical stenosis of spinal canal Procedures XR CERV OTHER 4V AP/LAT/FLX/EXT RADEX SPINE CERVICAL 4 OR 5 VIEWS Lois Medeiros PA-C [address] [place] [address] [place] [address] Referral IDStatusReasonSthouston DateExpiration DateVisits RequestedVisits [id number] Auto-Generated Referral * Diagnostic Procedure Only (Routine) - ClosedSpecialtyDiagnoses / Procedures Referred By ContactReferred To ContactXR IMAGING Diagnoses Spinal stenosis, lumbar region with neurogenic claudication Procedures XR LUMBAR MOTION 4V AP/LAT/ FLEX/EXT RADEX SPINE LUMBOSACRAL MINIMUM 4 VIEWS Lois Medeiros PA-C [address] [place] [address] [place] [address] Referral IDStatusReasonLacon DateExpiration DateVisits RequestedVisits [id number] Auto-Generated Referral [facility] for referral (narrative)* Consultation (Routine) - Pending ReviewSpecialtyDiagnoses / ProceduresReferred By ContactReferred To ContactNeurology Diagnoses 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, subsequent encounter Cris Singh DO [address] [place] [address] Frank Godoy MD [address] [facility] [address] [place] [address] Referral IDStatusReHigh[facility] DateExpiration DateVisits RequestedVisits [id number] Review Specialty Services Required * Consultation (Routine) - Pending ReviewSpecialtyDiagnoses / ProceduresReferred By ContactReferred To ContactOtolaryngology Diagnoses Meniere's disease of both ears Cris Singh DO [address] [place] [address] Paola Serrano MD [address] [place] [address] Referral IDStatusReasonStart DateExpiration DateVisits RequestedVisits [id number] Review Specialty Services Required [place] [facility] Summary Purpose Family History Relationship Condition Age at Onset Recorded Date/T jeffrey father Renal failure Unknown motherRenal failureUnknownmotherType 2 diabetes mellitusUnknownmotherMalignant neoplasm of lungUnknown Advance Directives Advance Directive Response Recorded Date/ Time Advance Directives No August 20, 2020 4:47am Date ActivatedDate YyccselsrmeTabszihe66/17/2022 6:51 PM07/12/2022 12:51 PMDate ActivatedDate InactivatedComments10/16/2020 11:21 AM2020 3:58 PMDate ActivatedDate InactivatedComments04/23/2020 2:03 AM04/27/2020 9:19 PMDate ActivatedDate MoqvqkvwecwQohfvqng31/17/2022 6:51 PM07/12/2022 12:51 PMDate ActivatedDate InactivatedComments10/16/2020 11:21 [...] CERVICAL SPINE W/O CONTRAST MATERIAL Ernie Rankin, KOLE.LUMP RECEIVER [address], [address] [place] [id number] [facility] [place] [address] Referral IDStatusReasonStart DateExpiration DateVisits RequestedVisits [id number] Request Auto-Generated Referral /[id number] / ProceduresReferred By ContactReferred To ContactRadiology Diagnoses Traumatic brain injury, 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 with patient surviving, initial encounter ([facility]) Procedures MR brain without contrast Cris Singh, DO [address] [place] [address] Referral IDStatusReasonStart DateExpiration DateVisits RequestedVisits [id number] Review/ Additional Source Comments (unrecognized sect ion and content) No Status Records FoundNo Status Records FoundNo Status Records FoundNo Status Records FoundNo Status Records FoundNo Status Records FoundNo Status Records FoundNo Status Records FoundNo Status Records FoundNo Status Records FoundNo Status Records FoundNo Status Records Found INFORMATION SOURCE (unrecogn ized section and content) DATE CREATED AUTHOR 03/11/2019 [facility] DATE CREATED AUTHOR AUTHOR'S ORGANIZ ATION 12/09/2023 [facility] DATE CREATED AUTHOR AUTHOR'S ORGANIZ ATION 12/24/2023 [facility] DATE CREATED AUTHOR AUTHOR'S ORGANIZ ATION 10/29/2024 [facility] DATE CREATED AUTHOR AUTHOR'S ORGANIZ ATION 11/22/2024 [facility] DATE CREATED AUTHOR AUTHOR'S ORGANIZ ATION 12/20/2024 [facility] DATE CREATED AUTHOR AUTHOR'S ORGANIZ ATION 02/11/2025 [facility] DATE CREATED AUTHOR AUTHOR'S ORGANIZ ATION 02/24/2025 [facility] DATE CREATED AUTHOR AUTHOR'S ORGANIZ ATION 03/03/2025 [facility] DATE CREATED AUTHOR AUTHOR'S ORGANIZ ATION 03/11/2025 [facility] DATE CREATED AUTHOR AUTHOR'S ORGANIZ ATION 03/16/2025 [facility] DATE CREATED AUTHOR AUTHOR'S ORGANIZ ATION 04/08/2025 [facility] EPIC Care Teams (unrecognized sec tion and content) Team Status: Active Member Role Status Dates NON STAFF Primary Care Provider Active Team Status: Inactive Member Role Status Dates NON STAFF Primary Care Provider Active Start: February 18, 2024 End: February 17Stevie Almonte ProviderActiveStart: February 18, 2024 End: February 18, 2024Team MemberRelationshipSpecialtyStart DateEnd Date Cris Singh MD [address] [place] [address] PCP - GeneralInternal Medicine01/04/24Team MemberRelationshipSpecialtyStart Date End Date Cris Singh MD [address] [place] [address] PCP - GeneralInternal Medicine01/04/24Team MemberRelationshipSpecialtyStart Date End Date Cris Singh MD [address] [place] [address] PCP - GeneralInternal Medicine01/04/24Team MemberRelationshipSpecialtyStart Date End Date Cris Singh MD [address] [place] [address] PCP - GeneralInternal Medicine01/04/24Team MemberRelationshipSpecialtyStart Date End Date Cris Singh MD [address] [place] [address] PCP - GeneralInternal Medicine01/04/24Team MemberRelationshipSpecialtyStart Date End Date Cris Singh MD [address] [place] [address] PCP - GeneralInternal Medicine01/04/24Team MemberRelationshipSpecialtyStart Date End Date Cris Singh DO [address] [place] [address] PCP - GeneralInternal Medicine12/07/23Team MemberRelationshipSpecialtyStart Date End Date Cirs Singh [address] [place] [address] PCP - GeneralInternal Uhdqtrrx24/12/24 Kinza Caba DO [address] [place] [address] UcxbyjudnIdiqofzxa34/12/24Team MemberRelationshipSpecialtyStart DateEnd Date Cris Singh MD [address] [place] [address] PCP - GeneralInternal Medicine01/04/24Team MemberRelationshipSpecialtyStart Date End Date Cris Singh DO [address] [place] [address] PCP - GeneralInternal Medicine12/07/23Team MemberRelationshipSpecialtyStart Date End Date Cris Singh [address] [place] [address] PCP - GeneralInternal Tkcbzkwv83/12/24 Kinza Caba DO [address] [place] [address] KctutwetiAljddykpv58/12/24Team MemberRelationshipSpecialtyStart DateEnd Date Cris Singh DO [address] [place] [address] PCP - GeneralInternal Medicine12/07/23Team MemberRelationshipSpecialtyStart Date End Date Cris Singh DO [address] [place] [address] PCP - GeneralInternal Medicine12/07/23Team MemberRelationshipSpecialtyStart Date End Date Cris Singh, DO [address] [place] [address] PCP - GeneralInternal Medicine12/07/23Team MemberRelationshipSpecialtyStart Date End Date Cris Singh, DO [address] [place] [address] PCP - GeneralInternal Medicine12/07/23Team MemberRelationshipSpecialtyStart Date End Date Cris Singh DO [address] [place] [address] PCP - GeneralInternal Medicine12/07/23Team MemberRelationshipSpecialtyStart Date End Date Cris Singh DO [address] [facility] [place] [address] PCP - GeneralInternal Medicine12/07/23Team MemberRelationshipSpecialtyStart Date End Date Cris Singh DO [address] [facility] [place] [address] PCP - GeneralInternal Medicine12/07/23Team MemberRelationshipSpecialtyStart Date End Date Cris Singh DO [address] [place] [address] PCP - GeneralInternal Medicine12/07/23Team MemberRelationshipSpecialtyStart Date End Date Cris Singh DO [address] [place] [address] PCP - GeneralInternal Medicine12/07/23Team MemberRelationshipSpecialtyStart Date End Date Cris Singh MD [address] [place] [address] PCP - GeneralInternal Medicine01/04/24Team MemberRelationshipSpecialtyStart Date End Date Cris Singh MD [address] [place] [address] PCP - GeneralInternal Medicine01/04/24Team MemberRelationshipSpecialtyStart Date End Date Cris Singh [address] [place] [address] PCP - GeneralInternal Jlxexwxb89/12/24 Kinza Caba DO [address] [place] [address] VytvwpgwjCavidqoqi58/12/24Team MemberRelationshipSpecialtyStart DateEnd Date Cris Singh [address] [place] [address] PCP - GeneralInternal Gqwadnze48/12/24 Kinza Caba DO [facility] [place] [address] BotebflmdGbwlxaacy80/12/24Team MemberRelationshipSpecialtyStart DateEnd Date Cris Singh [address] [place] [address] PCP - GeneralInternal Pakehnxg45/12/24 Kinza Caba DO [address] [place] [address] PhzxlyycpHwulhokew33/12/24Team MemberRelationshipSpecialtyStart DateEnd Date Cris Singh [address] [place] [address] PCP - GeneralInternal Rhtgnfpa56/12/24 Kinza Caba DO [address] [place] [address] XuqbgzzvgQgyzjibis75/12/24Team MemberRelationshipSpecialtyStart DateEnd Date Cris Singh [address] [place] [address] PCP - GeneralInternal Mcpvqphe93/12/24 Kinza Caba DO [address] [place] [address] MkrfwffaeJfddeiikl26/12/24Team MemberRelationshipSpecialtyStart DateEnd Date Cris Singh [address] [place] [address] PCP - GeneralInternal Etoompop11/12/24 Kinza Caba DO [address] [place], [place] [address] [address] SwkzdjyhwDpdhozgyp44/12/24Team MemberRelationshipSpecialtyStart DateEnd Date Cris Singh [address] [place] [address] PCP - GeneralFlorence Community Healthcarenal Pfeedcpg63/12/24 Kinza Cbaa DO [address] [facility] [place] [address] RwmpbeyeyHmgvqahst88/12/24Team MemberRelationshipSpecialtyStart DateEnd Date Cris Singh [address] [place] [address] PCP - GeneralFlorence Community Healthcarenal Afjxgwup07/12/24 Kinza Caba DO [address] [facility] [place] [address] ImhnasowkVvuwpqnzl88/12/24Team MemberRelationshipSpecialtyStart DateEnd Date Cris Singh [address] [place] [address] PCP - GeneralInternal Ttrnzunh96/12/24 Kinza Caba DO [address] [place] [address] UgqasrxgeJsftidsga76/12/24Team MemberRelationshipSpecialtyStart DateEnd Date Cris Singh [address] [place] [address] PCP - GeneralInternal Advnoxcx69/12/24 Kinza Caba DO [address] [place] [address] MkcpbjwruPmkjowebj34/12/24Team MemberRelationshipSpecialtyStart DateEnd Date Cris Singh DO [address] [place] [address] PCP - GeneralInternal Medicine12/07/23Team MemberRelationshipSpecialtyStart Date End Date Cris Singh [address] [place] [address] PCP - GeneralInternal Tsiyeebv49/12/24 Kinza Caba DO [address] [place] [address] AbcaajvhuPjfjxdnps04/12/24Team MemberRelationshipSpecialtyStart DateEnd Date Cris Singh [address] [place] [address] PCP - GeneralInternal Lyjqhwum74/12/24 Kinza Caba DO [address] [place] [address] OtmbwmzyzCdrxgjsnv55/12/24Team MemberRelationshipSpecialtyStart DateEnd Date Cris Singh DO [address] [facility] [place] [address] PCP - GeneralInternal Medicine12/07/23Team MemberRelationshipSpecialtyStart Date End Date Cris Singh [address] [place] [address] PCP - GeneralInternal Syjhsmoc04/12/24 Kinza Caba DO [address] [place] [address] ZwdmixybsEvwemabfa64/12/24Team MemberRelationshipSpecialtyStart DateEnd Date Cris Singh [address] [place] [address] PCP - GeneralInternal Rjydgrqc42/12/24 Kinza Caba DO [address] [place] [address] PoizjecyoUrzbcfyzz47/12/24Team MemberRelationshipSpecialtyStart DateEnd Date Cris Singh DO [address] [facility] [place] [address] PCP - GeneralInternal Medicine12/07/23Team MemberRelationshipSpecialtyStart Date End Date Cris Singh MD [address] [place] [address] PCP - GeneralInternal Medicine01/04/24Team MemberRelationshipSpecialtyStart Date End Date Cris Singh DO [address] [place] [address] PCP - GeneralInternal Medicine12/07/23Team MemberRelationshipSpecialtyStart Date End Date Cris Singh [address] [place] [address] PCP - GeneralInternal Ejtkspmo63/12/24 Kinza Caba DO [address] [place] [address] LqkcicnvlIszjymclw79/12/24Team MemberRelationshipSpecialtyStart DateEnd Date Cris Singh [address] [place] [address] PCP - GeneralInternal Dpkgifav90/12/24 Kinza Caba DO [address] [place] [address] UcmwnglnkJfdxwcywr92/12/24Team MemberRelationshipSpecialtyStart DateEnd Date Cris Singh [address] [place] [address] PCP - GeneralInternal Kfslqoyn42/12/24 [facility] Hospital[facility] golden DO [address] [place] [address] JikwfeldyPfwonlezc53/12/24Team MemberRelationshipSpecialtyStart DateEnd Date Cris Singh DO [address] [place] [address] PCP - GeneralInternal Medicine12/07/23Team MemberRelationshipSpecialtyStart Date End Date Cris Singh DO [address] [place] [address] PCP - GeneralInternal Medicine12/07/23Team MemberRelationshipSpecialtyStart Date End Date Cris Singh [address] [place] [address] PCP - GeneralInternal Lugrpqko48/12/24 Kinza Caba DO [address] [place] [address] MlccbsrhdSedpzekcj78/12/24Team MemberRelationshipSpecialtyStart DateEnd Date Cris Singh MD [address] [place] [address] PCP - GeneralInternal Medicine01/04/24Team MemberRelationshipSpecialtyStart Date End Date Cris Singh MD [address] [place] [address] PCP - GeneralInternal Medicine01/04/24Team MemberRelationshipSpecialtyStart Date End Date Cris Singh MD [address] [place] [address] PCP - GeneralInternal Medicine01/04/24Te MemberRelationshipSpecialtyStart Date End Date Cris Singh MD [address] [place] [address] PCP - GeneralInternal Medicine01/04/24Te MemberRelationshipSpecialtyStart Date End Date Cris Singh MD [address] [place] [address] PCP - GeneralFlorence Community Healthcarenal Medicine01/04/24 Goals (unrecognized section and content) Goals may be documented in a n alternate section Reason for Visit (unrecogniz ed section and content) ReasonCommentsNumbnessExtremity WeaknessReasonCommentsMeniere's DiseaseAudio 05/25/24ReasonOnset DateCommentsMed Zfbryf554ReasonCommentsExtremity WeaknessNumbnessHeadacheReasonComments3 month recheckReasonCommentsRadio Main J1 SpecialtyDiagnoses / ProceduresReferred By ContactReferred To ContactXR IMAGING Diagnoses Cervical stenosis of spinal canal Procedures XR CERV OTHER 4V AP/LAT/FLX/EXT RADEX SPINE CERVICAL 4 OR 5 VIEWS Lois Medeiros PA-C [address] [place] [address] [place] [address] Referral IDStatusReasonStart DateExpiration DateVisits RequestedVisits [id number] Auto-Generated Referral /[id number] PatientReasonCommentsNew PatientReason Commentsdiscuss test resultsHeadache all day not been able to sleep.Reason CommentsFollow-upReasonCommentsMed RefillReasonCommentsMed Change RequestReason Onset DateCommentsMed Xjuvyb894ReasonCommentsHeadacheContinued headaches ReasonCommentsfmla headache and backPain scale 7ReasonOnset DateCommentsMed Zdbytq594ReasonCommentsExtremity WeaknessHeadacheNumbnessReasonOnset Date CommentsMed Obeuta3109/29/[address]24ReasonCommentsConsultReasonCommentsRadiology CT SpecialtyDiagnoses / ProceduresReferred By ContactReferred To ContactCT IMAGING Diagnoses Spinal stenosis of cervical region Procedures CT CERVICAL SPINE WO IVCON CT CERVICAL SPINE W/O CONTRAST MATERIAL Ernie Rankin, DEVELOPMENT PLANNER.LUMP RECEIVER [address], [address] [place] [address] Phone: tel: fax: [facility] [place] [address] Referral IDStatusReasonStart DateExpiration DateVisits RequestedVisits [id number] Auto-Generated Referral /[id number] QuestionReasonCommentsPatient Question Preparations For SurgeryReasonCommentsPre-Op ExamReasonCommentsPatient Update Patient QuestionReasonOnset DateCommentshome care udqoczpka17/22/2025ReasonOnset DateCommentsRefill Zmqmvtj1511/30/2024ReasonCommentsPost OpReasonComments Follow-upNeck surgery 11/16ReasonCommentsMedication ProblemReasonOnset Date CommentsRefill Fgwfyxp8212/27/2024ReasonCommentsneeds referral to foot doctor. Still migraines, numbnessNumbness in shoulders and tingling in feet and finger tipsReasonOnset DateCommentsRefill Rnpqjun1801/20/2025ReasonCommentsHammer ToeFoot CallousesReasonCommentsFollow UpSpecialtyDiagnoses / ProceduresReferred By ContactReferred To Contact Diagnoses Cervical spondylosis with myelopathy Acute post-operative pain Procedures PROVIDER ORDERED FOLLOW UP OFFICE/OUTPATIENT [facility] MDM 60 MINUTES Ernie Rankin, DEVELOPMENT PLANNER.LUMP RECEIVER [address] [place] [address] Phone: tel: fax: Referral IDStatusReasonStart DateExpiration DateVisits RequestedVisits [id number] PCP Requested Referral /[id number]d infoReasonCommentsFollow UpReason CommentsRadio Gen RMPRadiology Service Progress NotePATIENT NAME: Bee HarrisMRN: [id number] OF SERVICE: February 21, 2025TIME: 2:05 PMPATIENT [...] Ernie Rankin APRN.[address], [address] [place] [address] Phone: tel: fax: XR [facility] [place] [address] Referral IDStatusReasonStart DateExpiration DateVisits RequestedVisits [id number] Auto-Generated Referral /[id number]-xz clearence for toe amputationReason CommentsConsent Or InstructionspreopReasonCommentsPost-op7d s/p ampReason CommentsPost-opReasonCommentsToenail Care Source Comments (unrecognize d section and content) In the event this informatio n is protected by the Federal Confidentiality of Alcohol and Drug Abuse Patient Records regulations: The Federal rules restrict any use of the information to criminally investigate or prosecute any alcohol or drug abuse patient.[facility] HospitalIn the event this information is protected by the Federal Confidentiality of Alcohol and Drug Abuse Patient Records regulations: The Federal rules restrict any use of the information to criminally investigate or prosecute any alcohol or drug abuse patient.[facility] HospitalIn the event this information is protected by the Federal Confidentiality of Alcohol and Drug Abuse Patient Records regulations: The Federal rules restrict any use of the information to criminally investigate or prosecute any alcohol or drug abuse patient.[facility] HospitalIn the event this information is protected by the Federal Confidentiality of Alcohol and Drug Abuse Patient Records regulations: The Federal rules restrict any use of the information to criminally investigate or prosecute any alcohol or drug abuse patient.[facility] HospitalIn the event this information is protected by the Federal Confidentiality of Alcohol and Drug Abuse Patient Records regulations: The Federal rules restrict any use of the information to criminally investigate or prosecute any alcohol or drug abuse patient.[facility] HospitalIn the event this information is protected by the Federal Confidentiality of Alcohol and Drug Abuse Patient Records regulations: The Federal rules restrict any use of the information to criminally investigate or prosecute any alcohol or drug abuse patient.[facility] HospitalIn the event this information is protected by the Federal Confidentiality of Alcohol and Drug Abuse Patient Records regulations: The Federal rules restrict any use of the information to criminally investigate or prosecute any alcohol or drug abuse patient.[facility] HospitalIn the event this information is protected by the Federal Confidentiality of Alcohol and Drug Abuse Patient Records regulations: The Federal rules restrict any use of the information to criminally investigate or prosecute any alcohol or drug abuse patient.[facility] HospitalIn the event this information is protected by the Federal Confidentiality of Alcohol and Drug Abuse Patient Records regulations: The Federal rules restrict any use of the information to criminally investigate or prosecute any alcohol or drug abuse patient.[facility] HospitalIn the event this information is protected by the Federal Confidentiality of Alcohol and Drug Abuse Patient Records regulations: The Federal rules restrict any use of the information to criminally investigate or prosecute any alcohol or drug abuse patient.[facility] HospitalIn the event this information is protected by the Federal Confidentiality of Alcohol and Drug Abuse Patient Records regulations: The Federal rules restrict any use of the information to criminally investigate or prosecute any alcohol or drug abuse patient.[facility] HospitalIn the event this information is protected by the Federal Confidentiality of Alcohol and Drug Abuse Patient Records regulations: The Federal rules restrict any use of the information to criminally investigate or prosecute any alcohol or drug abuse patient.[facility] HospitalIn the event this information is protected by the Federal Confidentiality of Alcohol and Drug Abuse Patient Records regulations: The Federal rules restrict any use of the information to criminally investigate or prosecute any alcohol or drug abuse patient.[facility] HospitalIn the event this information is protected by the Federal Confidentiality of Alcohol and Drug Abuse Patient Records regulations: The Federal rules restrict any use of the information to criminally investigate or prosecute any alcohol or drug abuse patient.[facility] HospitalIn the event this information is protected by the Federal Confidentiality of Alcohol and Drug Abuse Patient Records regulations: The Federal rules restrict any use of the information to criminally investigate or prosecute any alcohol or drug abuse patient.[facility] HospitalIn the event this information is protected by the Federal Confidentiality of Alcohol and Drug Abuse Patient Records regulations: The Federal rules restrict any use of the information to criminally investigate or prosecute any alcohol or drug abuse patient.[facility] HospitalIn the event this information is protected by the Federal Confidentiality of Alcohol and Drug Abuse Patient Records regulations: The Federal rules restrict any use of the information to criminally investigate or prosecute any alcohol or drug abuse patient.[facility] HospitalIn the event this information is protected by the Federal Confidentiality of Alcohol and Drug Abuse Patient Records regulations: The Federal rules restrict any use of the information to criminally investigate or prosecute any alcohol or drug abuse patient.[facility] HospitalIn the event this information is protected by the Federal Confidentiality of Alcohol and Drug Abuse Patient Records regulations: The Federal rules restrict any use of the information to criminally investigate or prosecute any alcohol or drug abuse patient.[facility] HospitalIn the event this information is protected by the Federal Confidentiality of Alcohol and Drug Abuse Patient Records regulations: The Federal rules restrict any use of the information to criminally investigate or prosecute any alcohol or drug abuse patient.[facility] HospitalIn the event this information is protected by the Federal Confidentiality of Alcohol and Drug Abuse Patient Records regulations: The Federal rules restrict any use of the information to criminally investigate or prosecute any alcohol or drug abuse patient.[facility] HospitalIn the event this information is protected by the Federal Confidentiality of Alcohol and Drug Abuse Patient Records regulations: The Federal rules restrict any use of the information to criminally investigate or prosecute any alcohol or drug abuse patient.[facility] HospitalIn the event this information is protected by the Federal Confidentiality of Alcohol and Drug Abuse Patient Records regulations: The Federal rules restrict any use of the information to criminally investigate or prosecute any alcohol or drug abuse patient.[facility] HospitalIn the event this information is protected by the Federal Confidentiality of Alcohol and Drug Abuse Patient Records regulations: The Federal rules restrict any use of the information to criminally investigate or prosecute any alcohol or drug abuse patient.[facility] HospitalIn the event this information is protected by the Federal Confidentiality of Alcohol and Drug Abuse Patient Records regulations: The Federal rules restrict any use of the information to criminally investigate or prosecute any alcohol or drug abuse patient.[facility] HospitalIn the event this information is protected by the Federal Confidentiality of Alcohol and Drug Abuse Patient Records regulations: The Federal rules restrict any use of the information to criminally investigate or prosecute any alcohol or drug abuse patient.[facility] FOR RECORDS PERTAINING TO PATIENTS WHO [...] BE BASED ON THE PRIMARY CLINICAL RECORDS. [facility] [employer] [facility] provides no warranty or guarantee of the accuracy or completeness of information in this document.
--- NOTE | 2025-06-14 13:11 | PM.CN ---
Consult Note: HPI Data of Consult Patient: known to practice within the last 3 years Consult date: 05/11/25 Requesting Physician: Tonia Rosado NP Primary Care Provider: CRIS SINGH Consult Narrative Reason for consult: low back pain Narrative: Maxwell Jean a pleasant 59 year old male presents for evaluation and management of chronic severe neck and low back pain. Pain today 6/10 in neck and low back, reports no improvement in his pain since last visit. Has been utilizing meloxicam, tylenol, robaxin, pregabalin, topomax, lyrica, norco 7.5mg BID PRN with benefit without side effects. Pt reports increased pain with lifting, standing, walking, sleeping. Has completed 6 visits of PT without improvement in pain or functional ability. recently underwent bilateral L4-5 L5-S1 MBB #1 with less than 80% improvement while anesthetized. no recent consultation with NS. cc:: CC: Tonia Rosado NP Review of Systems ROS Musculoskeletal Reports: back pain, neck pain and joint pain PFSH PFSH Medical History Enlarged prostate ?N40.0 - Benign prostatic hyperplasia without lower urinary tract symptoms (ICD-10) Hearing deficit ?H91.90 - Unspecified hearing loss, unspecified ear (ICD-10) Glaucoma ?H40.9 - Unspecified glaucoma (ICD-10) Low back pain ?M54.50 - Low back pain, unspecified (ICD-10) High cholesterol ?E78.00 - Pure hypercholesterolemia, unspecified (ICD-10) Hypertension ?I10 - Essential (primary) hypertension (ICD-10) Social History Little interest or pleasure in doing things: not at all Feeling down, depressed, or hopeless: not at all Meds Home Medications and Allergies Home Medications ?Medication ?Instructions ?Recorded ?Confirmed ?Type atorvastatin 40 mg tablet 40 mg PO DAILY 05/16/24 06/12/25 History cyanocobalamin (vitamin B-12) 2,000 mcg PO DAILY 05/16/24 06/12/25 History 1,000 mcg tablet (Vitamin B-12) meloxicam 15 mg tablet 15 mg PO DAILY 05/16/24 06/12/25 History topiramate 50 mg tablet 50 mg PO BID 05/16/24 06/12/25 History naloxone 4 mg/actuation nasal 4 mg intranasal Q2M PRN opioid 07/14/24 06/12/25 Rx spray (Narcan) overdose #2 ea bupropion HCl 150 mg 24 hr tablet, 150 mg PO 10/03/24 History extended release latanoprost 0.005 % eye drops drp ophthalmic (eye) 10/03/24 History venlafaxine 37.5 mg 37.5 mg PO 10/03/24 History capsule,extended release 24 hr hydrocodone 7.5 mg-acetaminophen 1 tab PO BID PRN pain #60 tabs 02/08/25 06/12/25 Rx 325 mg tablet pregabalin 200 mg capsule (Lyrica) 200 mg PO TID #90 caps 03/30/25 06/12/25 Rx methocarbamol 500 mg tablet 500 mg PO BID PRN spasms 05/11/25 06/12/25 History methocarbamol 500 mg tablet See Rx Instructions .Route 05/11/25 06/12/25 Rx .COMPLEX #120 tabs hydrocodone 7.5 mg-acetaminophen 1 tab PO BID PRN pain #60 tabs 06/05/25 06/12/25 Rx 325 mg tablet pregabalin 200 mg capsule (Lyrica) 200 mg PO TID #90 caps 06/05/25 06/12/25 Rx Allergies Allergy/AdvReac Type Severity Reaction Status Date / Time No Known Drug Allergies Allergy Verified 06/12/25 08:29 Exam Constitutional Documenting provider has reviewed patient's vital signs: yes Common normals: no apparent distress, oriented x3, healthy appearing, alert and well nourished General appearance: cooperative [facility] Common normals: normocephalic, hearing grossly normal bilaterally and moist oral mucous membranes Head and scalp: normocephalic Eye Common normals: PERRL Pupil: PERRL Neck & C-Spine Common normals: full ROM General: normal visual inspection Cervical spine: cervical ROM abnormal and pain with cervical ROM Chest Common normals: inspection of chest normal Respiratory Common normals: normal respiratory effort, no retractions and no use of accessory muscles Back & Pelvis Lumbar spine/lower back: ROM limited, pain with ROM and lumbar spinal tenderness Lumbar spinal tenderness location: L3, L4 and L5 Other: positive facet loading strength 5/5 in BLE Neuro Common normals: oriented x3 Sensorium/orientation: alert Psych Common normals: mental status grossly normal, thought process normal, cooperative, affect normal, speech normal and activity/motor behavior normal Speech: normal speech Thought process: normal thought process Results Additional Findings Additional findings: If on a controlled substance or opioids, I have checked an [place]AR[place] report on this patient and there are no aberrancies noted in the prescribing history.??If on a controlled substance or opioid a drug screen was completed and reviewed within the last year, and if there has not been a drug screen completed we ordered one today to monitor higher risk, state monitored pain medication use. As part of providing excellent, safe, comprehensive care, the following was completed at our patient's visit: 1. A medication reconciliation and review to ensure accurate knowledge of current/active medications, including asking our patients to inform us about any [id number] medications or herbal remedies/nutritional supplements/alternative remedies. 2. A review to specifically ensure our patients have had annual screening for screening for depression, screening for tobacco use, and screening for unhealthy alcohol use. For concerning screenings had a discussion with the patient, provided patient education, and recommended follow-up with primary care provider when appropriate. If patient noted with a risk of falling, they received education on strength, gait, and balance training to prevent future risk of falling. Portions of this note may have been carried over from the previous visit and updated as appropriate. Please note this office utilizes paper charting in addition to the electronic medical record. A list of current medications, vitals, and PMH is available there as the clinical staff outside of myself do not have access to [employer] charting during the clinic day operations. As part of providing quality comprehensive care the current medications, vitals, and PMH were reviewed in the paper chart. Assessment and Plan Assessment and Plan (1) Lumbar spondylosis: Assessment and Plan: The patient has had over 3 months of moderate to severe low back pain with functional impairment and inadequate response to conservative care including NSAIDS (unless there are contraindication such as concurrent blood thinners), multiple oral or topical pain medications, and home exercise program/physical therapy.? Patient has completed >6 weeks of guided home exercise program and/or formal physical therapy program without relief of their symptoms.? I have reviewed the imaging of the lumbar spine and no red flags were identified.? The imaging reveals radiographic findings consistent with lumbar ddd, lumbar spondylosis, lumbar stenosis The Oswestry Disability Index was completed, and the patient scored a 26%.? The patient noted the following:?? moderate to severe pain impacting ADLs, sitting, standing, walking, sleeping, social life, travel (2) Chronic use of opiate drug for therapeutic purpose: Assessment and Plan: I feel these medications are improving the patient's quality of life and allow them to tolerate activities of daily living as well as participate in recreational activity.? The patient does not report intolerable side effects. The patient is NOT opioid naive and non-pharmacologic and non-opioid treatment has failed to significantly relieve the patient's pain and improve functionality. The patient has a diagnosis that is related to a somatic or visceral pain etiology. ? ?? I reviewed with the patient the potential risks and side effects with the use of? opioid medications including but not limited to respiratory depression,? sedation, and even . Within the last 12 months I have verified the patient has access to naloxone should? these effects occur. The patient was advised to let? their family know they had Naloxone in case they would need to administer? the medication. I advised the patient to avoid the use of any other? sedation substances including alcohol, THC, and benzodiazepines while? taking opioid medications due to the risk of compounding side effects and? detrimental outcomes. within the last 12 months I have reviewed the [employer], pain treatment agreement and urine drug screen.? ?? A drug screen was completed within the last year, and no aberrancies were noted regarding their use of controlled substances. The patient understands they are subject to the terms and conditions of the pain contract that they have signed. ? ?? I have checked an [place]AR[place] report on this patient today and there are no aberrancies noted in the prescribing history.? (3) Myofascial pain: Plan cancel bilateral L4-5 L5-S1 MBB #2 in consideration of RFA continue norco 7.5mg BID PRN moderate to severe pain. has failed non opioid medications for chronic neck and low back pain, notes moderate pain relief for 4-6 hours with each dose without side effects. continue methocarbamol 500-1000mg bid prn pain/spasms continue HEP as tolerated continue pregabalin 200mg TID f/u 3 months for medication management, sooner if needed
== END 2025-06-14 12:30 | disposition home or self-care (01) ==
LOC: PM 12:29
PROVIDERS: PCP Internal Medicine; Visit Provider Nurse Practitioner
DX: M47.816 Spondylosis without myelopathy or radiculopathy, lumbar region (principal); Z79.891 Long term (current) use of opiate analgesic; M79.18 Myalgia, other site
CPT/HCPCS: G0463

== ENCOUNTER 2025-07-14 10:20 | Outpatient (OUT) | payer OTHER, SELFPAY ==
[2025-07-14 10:58] LABS: Hematocrit 46.2 % (42.0-54.0); Hemoglobin 15.2 g/dL (14.0-18.0); Immature Granulocytes Abs Auto 0.02 10^3/uL (0.00-0.03); Immature Granulocytes Pct Auto 0.3 % (0.0-0.5); Lymphocytes Absolute Auto 2.3 10^3/uL (1.2-3.8); Mean Corpuscular HGB Conc 32.9 g/dL (29.9-35.2); Mean Corpuscular Hemoglobin 32.9 pg (25.9-34.0); Mean Corpuscular Volume 100.0 fL (80.0-94.0); Platelet Count 199 10^3/uL (150-450); Red Blood Count 4.62 10^6/uL (4.70-6.10); White Blood Count 7.4 10^3/uL (4.0-11.0)
[2025-07-14 11:07] LABS: Anion Gap 12.6; Blood Urea Nitrogen 23.0 mg/dL (7.0-18.0); Calcium 9.0 mg/dL (8.5-10.1); Carbon Dioxide 23.5 mmol/L (21.0-32.0); Chloride 111 mmol/L (98-107); Estimated GFR (African America >60 (>=60 mL/min/1.73m^2); Estimated GFR (Non-African Ame >60 (>=60 mL/min/1.73m^2); Glucose 103 mg/dL (74-106); Potassium 4.1 mmol/L (3.5-5.1); Sodium 143 mmol/L (136-145)
== END 2025-07-14 10:21 | disposition home or self-care (01) ==
PROVIDERS: PCP Internal Medicine
DX: Z01.818 Encounter for other preprocedural examination (principal); Z01.812 Encounter for preprocedural laboratory examination
CPT/HCPCS: 36415; 80048; 85025